=== PATIENT | male | born 1945 | race Caucasian/White ===

== ENCOUNTER 2018-06-01 17:51 | Inpatient (IN) ==
[2018-06-01] MEDS ORDERED: Sodium Chlor 0.9% Inj 500 ML IV.SIG ONE ×2 (18:07→19:40)
--- NOTE | 2018-06-01 18:21 | ED ---
HPI General Chief Complaint: Altered Mental Status Stated Complaint: Evac/Ams Time Seen by Provider: 06/01/18 18:04 Source: patient Mode of arrival: ambulatory Limitations: no limitations History of Present Illness HPI narrative: 72-year-old male patient with history of diabetes, multiple medical issues, presents to the ER today brought in by EMS because a welding manager found him in the bathroom slumped over, apparently was last seen normal this morning around 10 AM, but patient is currently fairly disoriented, not able to answer many questions. EMS found his blood sugars reading high, his blood pressures were low. MD complaint: altered mental status Related Data Home Medications Medication Instructions Recorded Confirmed aspirin 325 mg PO DAILY 06/01/18 06/01/18 atenolol 25 mg PO DAILY 06/01/18 06/01/18 atorvastatin [Lipitor] 20 mg PO HS 06/01/18 06/01/18 butenafine [Mentax] 1 applic TOPICAL DIRECTED 06/01/18 06/01/18 duloxetine [Cymbalta] 30 mg PO DAILY 06/01/18 06/01/18 dutasteride [Avodart] 0.5 mg PO QPM 06/01/18 06/01/18 gabapentin 300 mg PO Q6HR 06/01/18 06/01/18 insulin NPH and regular human 50 unit SUB-Q QPM 06/01/18 06/01/18 [Novolin 70/30 U-100 Insulin] insulin NPH and regular human 75 unit SUB-Q QAM 06/01/18 06/01/18 [Novolin 70/30 U-100 Insulin] lisinopril 5 mg PO DAILY 06/01/18 06/01/18 nitrofurantoin monohyd/m-cryst 100 mg PO 3XW 06/01/18 06/01/18 [Macrobid] pantoprazole [Protonix] 40 mg PO DAILY 06/01/18 06/01/18 tamsulosin [Flomax] 0.4 mg PO BID 06/01/18 06/01/18 valsartan [Diovan] 160 mg PO DAILY 06/01/18 06/01/18 zolpidem [Ambien] 10 mg PO HS 06/01/18 06/01/18 Allergies Allergy/AdvReac Type Severity Reaction Status Date / Time No Allergy Information Allergy Verified 06/01/18 18:09 Available Review of Systems ROS Unobtainable ROS Unobtainable: unobtainable due to mental status PMFSH History History Provided By: Wire Fence Builder / EMT Social History Social History Substance History: No History of Abuse Second Hand Smoke Exposure: No Smoking Status: Former smoker How Often Do You Have a Drink Containing Alcohol: Never Recent Travel in [facility] within the Last 8 Weeks: No Recent Out of Country Travel within the Last 8 Weeks: No Exam Narrative Exam Narrative: GENERAL: Well-developed morbidly obese elderly white male patient currently and moderate distress, lethargic, disoriented. SKIN: Focused skin assessment warm/diaphoretic. HEAD: Atraumatic. Normocephalic. EYES: Pupils equal and round. No scleral icterus. No injection or drainage. ENT: No nasal bleeding or discharge. Mucous membranes pink and moist. NECK: Trachea midline. No JVD. CARDIOVASCULAR: Regular rate and rhythm. No murmur appreciated. RESPIRATORY: No accessory muscle use. Clear to auscultation. Breath sounds equal bilaterally. GASTROINTESTINAL: Abdomen soft, obese, non-tender, nondistended. Hepatic and splenic margins not palpable. MUSCULOSKELETAL: No obvious deformities. No clubbing. No cyanosis. No edema. NEUROLOGICAL: Lethargic, not following commands, able to wiggle fingers and toes when asked, face is symmetrical. Slurred speech. PSYCHIATRIC: Disoriented, unable to assess. Course Initial Documented Vital Signs Pulse Oximetry 97 06/01/18 18:07 Last Documented Vital Signs Temperature 98.4 F 06/04/18 03:00 Pulse Rate 79 06/04/18 03:33 Respiratory Rate 16 06/04/18 03:33 Blood Pressure 183/75 H 06/04/18 03:00 Pulse Oximetry 98 06/04/18 03:00 Critical Care Time Critical Care Time: Yes Total Critical Care Time: 35 Attestation: Aggregate critical care time was 35 minutes. Time to perform other separately billable procedures was not included in the critical care time. My time did not include minutes spent treating any other patients simultaneously or on activities that did not directly contribute to the patient's treatment. The services I provided to this patient were to treat and/or prevent clinically significant deterioration that could result in: Worsening metabolic disorders, DKA, dysrhythmias, sepsis, septic shock, I provided critical care services requiring my management, as noted below: Chart data review, documentation time, medication orders and management, vital sign assessments/reviewing monitor data, ordering and reviewing lab tests, ordering and interpreting/reviewing x-rays and diagnostic studies, care of the patient and discussion of the patient with the admitting physicians. Medical Decision Making MDM Narrative Medical decision making narrative: Lab work came back showing significant hyperglycemia with glucose of over 700, BUN and creatinine elevation, pH fairly low indicative of underlying metabolic acidosis, IV fluids and insulin were given in the ER. Patient's white count 1700 as well, and at this point, patient will need a higher level care, likely disoriented secondary to metabolic issues as well as possible underlying sepsis. Workup was initiated in the ER and case was discussed with Dr. Hinojosa for admission. Differential Diagnosis Differential Diagnosis: Hyperglycemia versus electrolyte abnormalities versus acute intracranial processes versus CVA versus sepsis versus dehydration Lab Data Result diagrams: 06/03/18 06:52 06/03/18 10:54 Lab Results 06/01/18 06/01/18 06/01/18 Range/Units 18:05 18:07 18:09 WBC 17.3 H (4.0-11.0) th/mm3 RBC 4.53 (4.50-5.90) mil/mm3 Hgb 12.5 L (13.0-17.0) gm/dL Hct 40.5 (39.0-51.0) % MCV 89.6 (80.0-100.0) fL MCH 27.6 (27.0-34.0) pg MCHC 30.8 L (32.0-36.0) % RDW 14.7 (11.6-17.2) % Plt Count 304 (150-450) th/mm3 MPV 10.1 (7.0-11.0) fL Neut % (Auto) 83.0 H (16.0-70.0) % Lymph % (Auto) 10.7 (9.0-44.0) % Creek % (Auto) 5.5 (0.0-8.0) % Eos % (Auto) 0.1 (0.0-4.0) % Baso % (Auto) 0.7 (0.0-2.0) % Neut # (Auto) 14.3 H (1.8-7.7) th/mm3 Lymph # (Auto) 1.8 (1.0-4.8) th/mm3 Creek # (Auto) 0.9 (0.0-0.9) th/mm3 Eos # (Auto) 0.0 (0.0-0.4) th/mm3 Baso # (Auto) 0.1 (0.0-0.2) th/mm3 WBC Differential . Differential Comment Auto diff final PT (9.8-11.6) sec INR Ratio APTT (24.3-30.1) sec Puncture Site Right radial Patient Temperature 98.6 O2 Saturation 93 (90-100) % ABG pH 7.25 L* (7.380-7.420) ABG pCO2 35 L (38-42) mmHg ABG pO2 93 (61-120) mmHg ABG HCO3 15 L* (22-26) mmol/L ABG O2 Content 18.3 (12.0-20.0) Vol % ABG Base Excess -10.9 L (-2-2) mmol/L ABG Methemoglobin 1.2 (0-2) % Parker Test Present Hemoglobin 13.9 (12.0-16.0) G/DL Carboxyhemoglobin 1.0 (0-4) % O2 Delivery Device Nasal cannula Liter Flow 4.00 L/M Inspired O2 21 % Critical Value Yes Sodium (136-145) meq/L Potassium (3.5-5.1) meq/L Chloride (98-107) meq/L Carbon Dioxide (21.0-32.0) meq/L Anion Gap (5-15) meq/L BUN (7-18) mg/dL Creatinine (0.60-1.30) mg/dL Estimated GFR (>89) mL/min POC Glucose (68-110) mg/dl Random Glucose (74-106) mg/dL Lactic Acid (0.4-2.0) mmol/L Calcium (8.5-10.1) mg/dL Phosphorus (2.5-4.9) mg/dL Magnesium (1.5-2.5) mg/dL Total Bilirubin (0.2-1.0) mg/dL AST (15-37) U/L ALT (12-78) U/L Alkaline Phosphatase (45-117) U/L Total Creatine Kinase (39-308) U/L CK-MB (CK-2) (0.5-3.6) ng/mL CK-MB (CK-2) % (0.0-4.0) % Troponin I (0.02-0.05) ng/mL Total Protein (6.4-8.2) g/dL Albumin (3.4-5.0) g/dL Beta-Hydroxybutyric Acd (0.00-0.39) mmol/L Urine Color (Yellw/Straw) Urine Clarity (Clear) Urine pH (5.0-8.5) Ur Specific [place] (1.002-1.035) Urine Protein (Neg-Trace) mg/dL Urine Glucose (UA) (Negative) mg/dL Urine Ketones (Negative) mg/dL Urine Occult Blood (Negative) Urine Nitrate (Negative) Urine Bilirubin (Negative) Urine Urobilinogen (Less than 2) mg/dL Ur Leukocyte Esterase (Negative) Urine RBC (0-3) /hpf Urine WBC (0-5) /hpf Urine WBC Clumps (None) Ur Squamous Epith Cells (0-5) /hpf Urine Bacteria (None) /hpf Micro UA Comment Urine Culture Comments Ur Random Sodium meq/L Nasal Screen MRSA (PCR) Random Vancomycin Comment Urine Opiates Screen Neg (Neg) Ur Barbiturates Screen Neg (Neg) Ur Amphetamines Screen Neg (Neg) U Benzodiazepines Scrn Neg (Neg) Urine Cocaine Screen Neg (Neg) U Cannabinoids Screen Neg (Neg) Serum Alcohol (0-5) mg/dL 06/01/18 06/01/18 06/01/18 Range/Units 18:09 18:09 19:24 WBC (4.0-11.0) th/mm3 RBC (4.50-5.90) mil/mm3 Hgb (13.0-17.0) gm/dL Hct (39.0-51.0) % MCV (80.0-100.0) fL MCH (27.0-34.0) pg MCHC (32.0-36.0) % RDW (11.6-17.2) % Plt Count (150-450) th/mm3 MPV (7.0-11.0) fL Neut % (Auto) (16.0-70.0) % Lymph % (Auto) (9.0-44.0) % Creek % (Auto) (0.0-8.0) % Eos % (Auto) (0.0-4.0) % Baso % (Auto) (0.0-2.0) % Neut # (Auto) (1.8-7.7) th/mm3 Lymph # (Auto) (1.0-4.8) th/mm3 Creek # (Auto) (0.0-0.9) th/mm3 Eos # (Auto) (0.0-0.4) th/mm3 Baso # (Auto) (0.0-0.2) th/mm3 WBC Differential Differential Comment PT 11.1 (9.8-11.6) sec INR 1.1 Ratio APTT 23.7 L (24.3-30.1) sec Puncture Site Patient Temperature O2 Saturation (90-100) % ABG pH (7.380-7.420) ABG pCO2 (38-42) mmHg ABG pO2 (61-120) mmHg ABG HCO3 (22-26) mmol/L ABG O2 Content (12.0-20.0) Vol % ABG Base Excess (-2-2) mmol/L ABG Methemoglobin (0-2) % Parker Test Hemoglobin (12.0-16.0) G/DL Carboxyhemoglobin (0-4) % O2 Delivery Device Liter Flow L/M Inspired O2 % Critical Value Sodium 134 L (136-145) meq/L Potassium 4.3 (3.5-5.1) meq/L Chloride 98 (98-107) meq/L Carbon Dioxide 14.7 L (21.0-32.0) meq/L Anion Gap 21 H (5-15) meq/L BUN 55 H (7-18) mg/dL Creatinine 2.96 H (0.60-1.30) mg/dL Estimated GFR 21 L (>89) mL/min POC Glucose Greater than 600 H* (68-110) mg/dl Random Glucose 709 H* (74-106) mg/dL Lactic Acid (0.4-2.0) mmol/L Calcium 8.9 (8.5-10.1) mg/dL Phosphorus (2.5-4.9) mg/dL Magnesium (1.5-2.5) mg/dL Total Bilirubin 0.4 (0.2-1.0) mg/dL AST 28 (15-37) U/L ALT 15 (12-78) U/L Alkaline Phosphatase 91 (45-117) U/L Total Creatine Kinase (39-308) U/L CK-MB (CK-2) (0.5-3.6) ng/mL CK-MB (CK-2) % (0.0-4.0) % Troponin I 0.08 H (0.02-0.05) ng/mL Total Protein 8.3 H (6.4-8.2) g/dL Albumin 2.5 L (3.4-5.0) g/dL Beta-Hydroxybutyric Acd 0.24 (0.00-0.39) mmol/L Urine Color (Yellw/Straw) Urine Clarity (Clear) Urine pH (5.0-8.5) Ur Specific [place] (1.002-1.035) Urine Protein (Neg-Trace) mg/dL Urine Glucose (UA) (Negative) mg/dL Urine Ketones (Negative) mg/dL Urine Occult Blood (Negative) Urine Nitrate (Negative) Urine Bilirubin (Negative) Urine Urobilinogen (Less than 2) mg/dL Ur Leukocyte Esterase (Negative) Urine RBC (0-3) /hpf Urine WBC (0-5) /hpf Urine WBC Clumps (None) Ur Squamous Epith Cells (0-5) /hpf Urine Bacteria (None) /hpf Micro UA Comment Urine Culture Comments Ur Random Sodium meq/L Nasal Screen MRSA (PCR) Random Vancomycin Comment Urine Opiates Screen (Neg) Ur Barbiturates Screen (Neg) Ur Amphetamines Screen (Neg) U Benzodiazepines Scrn (Neg) Urine Cocaine Screen (Neg) U Cannabinoids Screen (Neg) Serum Alcohol Less than 3 (0-5) mg/dL 06/01/18 06/01/18 06/02/18 Range/Units 20:00 20:17 00:20 WBC (4.0-11.0) th/mm3 RBC (4.50-5.90) mil/mm3 Hgb (13.0-17.0) gm/dL Hct (39.0-51.0) % MCV (80.0-100.0) fL MCH (27.0-34.0) pg MCHC (32.0-36.0) % RDW (11.6-17.2) % Plt Count (150-450) th/mm3 MPV (7.0-11.0) fL Neut % (Auto) (16.0-70.0) % Lymph % (Auto) (9.0-44.0) % Creek % (Auto) (0.0-8.0) % Eos % (Auto) (0.0-4.0) % Baso % (Auto) (0.0-2.0) % Neut # (Auto) (1.8-7.7) th/mm3 Lymph # (Auto) (1.0-4.8) th/mm3 Creek # (Auto) (0.0-0.9) th/mm3 Eos # (Auto) (0.0-0.4) th/mm3 Baso # (Auto) (0.0-0.2) th/mm3 WBC Differential Differential Comment PT (9.8-11.6) sec INR Ratio APTT (24.3-30.1) sec Puncture Site Patient Temperature O2 Saturation (90-100) % ABG pH (7.380-7.420) ABG pCO2 (38-42) mmHg ABG pO2 (61-120) mmHg ABG HCO3 (22-26) mmol/L ABG O2 Content (12.0-20.0) Vol % ABG Base Excess (-2-2) mmol/L ABG Methemoglobin (0-2) % Parker Test Hemoglobin (12.0-16.0) G/DL Carboxyhemoglobin (0-4) % O2 Delivery Device Liter Flow L/M Inspired O2 % Critical Value Sodium (136-145) meq/L Potassium (3.5-5.1) meq/L Chloride (98-107) meq/L Carbon Dioxide (21.0-32.0) meq/L Anion Gap (5-15) meq/L BUN (7-18) mg/dL Creatinine (0.60-1.30) mg/dL Estimated GFR (>89) mL/min POC Glucose (68-110) mg/dl Random Glucose (74-106) mg/dL Lactic Acid 5.2 H* (0.4-2.0) mmol/L Calcium (8.5-10.1) mg/dL Phosphorus (2.5-4.9) mg/dL Magnesium (1.5-2.5) mg/dL Total Bilirubin (0.2-1.0) mg/dL AST (15-37) U/L ALT (12-78) U/L Alkaline Phosphatase (45-117) U/L Total Creatine Kinase (39-308) U/L CK-MB (CK-2) (0.5-3.6) ng/mL CK-MB (CK-2) % (0.0-4.0) % Troponin I 27.60 H* (0.02-0.05) ng/mL Total Protein (6.4-8.2) g/dL Albumin (3.4-5.0) g/dL Beta-Hydroxybutyric Acd (0.00-0.39) mmol/L Urine Color Yellow (Yellw/Straw) Urine Clarity Turbid H (Clear) Urine pH 5.0 (5.0-8.5) Ur Specific [place] 1.014 (1.002-1.035) Urine Protein 100 H (Neg-Trace) mg/dL Urine Glucose (UA) 500 or greater (Negative) mg/dL Urine Ketones Negative (Negative) mg/dL Urine Occult Blood Large H (Negative) Urine Nitrate Negative (Negative) Urine Bilirubin Negative (Negative) Urine Urobilinogen Less than 2 (Less than 2) mg/dL Ur Leukocyte Esterase Large H (Negative) Urine RBC 171 H (0-3) /hpf Urine WBC (0-5) /hpf Urine WBC Clumps Many H (None) Ur Squamous Epith Cells 2 (0-5) /hpf Urine Bacteria Many H (None) /hpf Micro UA Comment Culture indicated Urine Culture Comments Culture indicated Ur Random Sodium meq/L Nasal Screen MRSA (PCR) Random Vancomycin Comment Urine Opiates Screen (Neg) Ur Barbiturates Screen (Neg) Ur Amphetamines Screen (Neg) U Benzodiazepines Scrn (Neg) Urine Cocaine Screen (Neg) U Cannabinoids Screen (Neg) Serum Alcohol (0-5) mg/dL 06/02/18 06/02/18 06/02/18 Range/Units 04:20 04:20 04:20 WBC 18.6 H (4.0-11.0) th/mm3 RBC 4.99 (4.50-5.90) mil/mm3 Hgb 13.8 (13.0-17.0) gm/dL Hct 43.3 (39.0-51.0) % MCV 86.8 (80.0-100.0) fL MCH 27.6 (27.0-34.0) pg MCHC 31.8 L (32.0-36.0) % RDW 14.5 (11.6-17.2) % Plt Count 235 (150-450) th/mm3 MPV 9.2 (7.0-11.0) fL Neut % (Auto) 87.5 H (16.0-70.0) % Lymph % (Auto) 8.5 L (9.0-44.0) % Creek % (Auto) 3.7 (0.0-8.0) % Eos % (Auto) 0.0 (0.0-4.0) % Baso % (Auto) 0.3 (0.0-2.0) % Neut # (Auto) 16.3 H (1.8-7.7) th/mm3 Lymph # (Auto) 1.6 (1.0-4.8) th/mm3 [place] # (Auto) 0.7 (0.0-0.9) th/mm3 Eos # (Auto) 0.0 (0.0-0.4) th/mm3 Baso # (Auto) 0.1 (0.0-0.2) th/mm3 WBC Differential . Differential Comment Auto diff final PT 11.1 (9.8-11.6) sec INR 1.1 Ratio APTT 24.7 (24.3-30.1) sec Puncture Site Patient Temperature O2 Saturation (90-100) % ABG pH (7.380-7.420) ABG pCO2 (38-42) mmHg ABG pO2 (61-120) mmHg ABG HCO3 (22-26) mmol/L ABG O2 Content (12.0-20.0) Vol % ABG Base Excess (-2-2) mmol/L ABG Methemoglobin (0-2) % Parker Test Hemoglobin (12.0-16.0) G/DL Carboxyhemoglobin (0-4) % O2 Delivery Device Liter Flow L/M Inspired O2 % Critical Value Sodium 139 (136-145) meq/L Potassium 3.9 (3.5-5.1) meq/L Chloride 106 D (98-107) meq/L Carbon Dioxide 18.6 L (21.0-32.0) meq/L Anion Gap 14 (5-15) meq/L BUN 57 H (7-18) mg/dL Creatinine 2.80 H (0.60-1.30) mg/dL Estimated GFR 22 L (>89) mL/min POC Glucose (68-110) mg/dl Random Glucose 429 H D (74-106) mg/dL Lactic Acid (0.4-2.0) mmol/L Calcium 8.5 (8.5-10.1) mg/dL Phosphorus 3.7 (2.5-4.9) mg/dL Magnesium 1.9 (1.5-2.5) mg/dL Total Bilirubin 0.2 (0.2-1.0) mg/dL AST 289 H (15-37) U/L ALT 52 (12-78) U/L Alkaline Phosphatase 94 (45-117) U/L Total Creatine Kinase (39-308) U/L CK-MB (CK-2) (0.5-3.6) ng/mL CK-MB (CK-2) % (0.0-4.0) % Troponin I Greater than 40.00 H* (0.02-0.05) ng/mL Total Protein 8.7 H (6.4-8.2) g/dL Albumin 2.6 L (3.4-5.0) g/dL Beta-Hydroxybutyric Acd (0.00-0.39) mmol/L Urine Color (Yellw/Straw) Urine Clarity (Clear) Urine pH (5.0-8.5) Ur Specific [place] (1.002-1.035) Urine Protein (Neg-Trace) mg/dL Urine Glucose (UA) (Negative) mg/dL Urine Ketones (Negative) mg/dL Urine Occult Blood (Negative) Urine Nitrate (Negative) Urine Bilirubin (Negative) Urine Urobilinogen (Less than 2) mg/dL Ur Leukocyte Esterase (Negative) Urine RBC (0-3) /hpf Urine WBC (0-5) /hpf Urine WBC Clumps (None) Ur Squamous Epith Cells (0-5) /hpf Urine Bacteria (None) /hpf Micro UA Comment Urine Culture Comments Ur Random Sodium meq/L Nasal Screen MRSA (PCR) Random Vancomycin Comment Urine Opiates Screen (Neg) Ur Barbiturates Screen (Neg) Ur Amphetamines Screen (Neg) U Benzodiazepines Scrn (Neg) Urine Cocaine Screen (Neg) U Cannabinoids Screen (Neg) Serum Alcohol (0-5) mg/dL 06/02/18 06/02/18 06/02/18 Range/Units 04:24 05:50 05:50 WBC (4.0-11.0) th/mm3 RBC (4.50-5.90) mil/mm3 Hgb (13.0-17.0) gm/dL Hct (39.0-51.0) % MCV (80.0-100.0) fL MCH (27.0-34.0) pg MCHC (32.0-36.0) % RDW (11.6-17.2) % Plt Count (150-450) th/mm3 MPV (7.0-11.0) fL Neut % (Auto) (16.0-70.0) % Lymph % (Auto) (9.0-44.0) % [place] % (Auto) (0.0-8.0) % Eos % (Auto) (0.0-4.0) % Baso % (Auto) (0.0-2.0) % Neut # (Auto) (1.8-7.7) th/mm3 Lymph # (Auto) (1.0-4.8) th/mm3 [place] # (Auto) (0.0-0.9) th/mm3 Eos # (Auto) (0.0-0.4) th/mm3 Baso # (Auto) (0.0-0.2) th/mm3 WBC Differential Differential Comment PT (9.8-11.6) sec INR Ratio APTT (24.3-30.1) sec Puncture Site Patient Temperature O2 Saturation (90-100) % ABG pH (7.380-7.420) ABG pCO2 (38-42) mmHg ABG pO2 (61-120) mmHg ABG HCO3 (22-26) mmol/L ABG O2 Content (12.0-20.0) Vol % ABG Base Excess (-2-2) mmol/L ABG Methemoglobin (0-2) % Parker Test Hemoglobin (12.0-16.0) G/DL Carboxyhemoglobin (0-4) % O2 Delivery Device Liter Flow L/M Inspired O2 % Critical Value Sodium (136-145) meq/L Potassium (3.5-5.1) meq/L Chloride (98-107) meq/L Carbon Dioxide (21.0-32.0) meq/L Anion Gap (5-15) meq/L BUN (7-18) mg/dL Creatinine (0.60-1.30) mg/dL Estimated GFR (>89) mL/min POC Glucose 490 H* (68-110) mg/dl Random Glucose (74-106) mg/dL Lactic Acid (0.4-2.0) mmol/L Calcium (8.5-10.1) mg/dL Phosphorus (2.5-4.9) mg/dL Magnesium (1.5-2.5) mg/dL Total Bilirubin (0.2-1.0) mg/dL AST (15-37) U/L ALT (12-78) U/L Alkaline Phosphatase (45-117) U/L Total Creatine Kinase (39-308) U/L CK-MB (CK-2) (0.5-3.6) ng/mL CK-MB (CK-2) % (0.0-4.0) % Troponin I (0.02-0.05) ng/mL Total Protein (6.4-8.2) g/dL Albumin (3.4-5.0) g/dL Beta-Hydroxybutyric Acd (0.00-0.39) mmol/L Urine Color (Yellw/Straw) Urine Clarity (Clear) Urine pH (5.0-8.5) Ur Specific [place] (1.002-1.035) Urine Protein (Neg-Trace) mg/dL Urine Glucose (UA) (Negative) mg/dL Urine Ketones (Negative) mg/dL Urine Occult Blood (Negative) Urine Nitrate (Negative) Urine Bilirubin (Negative) Urine Urobilinogen (Less than 2) mg/dL Ur Leukocyte Esterase (Negative) Urine RBC (0-3) /hpf Urine WBC (0-5) /hpf Urine WBC Clumps (None) Ur Squamous Epith Cells (0-5) /hpf Urine Bacteria (None) /hpf Micro UA Comment Urine Culture Comments Ur Random Sodium meq/L Nasal Screen MRSA (PCR) Cancelled Not detected Random Vancomycin Comment Urine Opiates Screen (Neg) Ur Barbiturates Screen (Neg) Ur Amphetamines Screen (Neg) U Benzodiazepines Scrn (Neg) Urine Cocaine Screen (Neg) U Cannabinoids Screen (Neg) Serum Alcohol (0-5) mg/dL 06/02/18 06/02/18 06/02/18 Range/Units 06:04 07:22 08:16 WBC (4.0-11.0) th/mm3 RBC (4.50-5.90) mil/mm3 Hgb (13.0-17.0) gm/dL Hct (39.0-51.0) % MCV (80.0-100.0) fL MCH (27.0-34.0) pg MCHC (32.0-36.0) % RDW (11.6-17.2) % Plt Count (150-450) th/mm3 MPV (7.0-11.0) fL Neut % (Auto) (16.0-70.0) % Lymph % (Auto) (9.0-44.0) % [place] % (Auto) (0.0-8.0) % Eos % (Auto) (0.0-4.0) % Baso % (Auto) (0.0-2.0) % Neut # (Auto) (1.8-7.7) th/mm3 Lymph # (Auto) (1.0-4.8) th/mm3 [place] # (Auto) (0.0-0.9) th/mm3 Eos # (Auto) (0.0-0.4) th/mm3 Baso # (Auto) (0.0-0.2) th/mm3 WBC Differential Differential Comment PT (9.8-11.6) sec INR Ratio APTT (24.3-30.1) sec Puncture Site Patient Temperature O2 Saturation (90-100) % ABG pH (7.380-7.420) ABG pCO2 (38-42) mmHg ABG pO2 (61-120) mmHg ABG HCO3 (22-26) mmol/L ABG O2 Content (12.0-20.0) Vol % ABG Base Excess (-2-2) mmol/L ABG Methemoglobin (0-2) % Parker Test Hemoglobin (12.0-16.0) G/DL Carboxyhemoglobin (0-4) % O2 Delivery Device Liter Flow L/M Inspired O2 % Critical Value Sodium (136-145) meq/L Potassium (3.5-5.1) meq/L Chloride (98-107) meq/L Carbon Dioxide (21.0-32.0) meq/L Anion Gap (5-15) meq/L BUN (7-18) mg/dL Creatinine (0.60-1.30) mg/dL Estimated GFR (>89) mL/min POC Glucose 381 H 237 H 194 H (68-110) mg/dl Random Glucose (74-106) mg/dL Lactic Acid (0.4-2.0) mmol/L Calcium (8.5-10.1) mg/dL Phosphorus (2.5-4.9) mg/dL Magnesium (1.5-2.5) mg/dL Total Bilirubin (0.2-1.0) mg/dL AST (15-37) U/L ALT (12-78) U/L Alkaline Phosphatase (45-117) U/L Total Creatine Kinase (39-308) U/L CK-MB (CK-2) (0.5-3.6) ng/mL CK-MB (CK-2) % (0.0-4.0) % Troponin I (0.02-0.05) ng/mL Total Protein (6.4-8.2) g/dL Albumin (3.4-5.0) g/dL Beta-Hydroxybutyric Acd (0.00-0.39) mmol/L Urine Color (Yellw/Straw) Urine Clarity (Clear) Urine pH (5.0-8.5) Ur Specific [place] (1.002-1.035) Urine Protein (Neg-Trace) mg/dL Urine Glucose (UA) (Negative) mg/dL Urine Ketones (Negative) mg/dL Urine Occult Blood (Negative) Urine Nitrate (Negative) Urine Bilirubin (Negative) Urine Urobilinogen (Less than 2) mg/dL Ur Leukocyte Esterase (Negative) Urine RBC (0-3) /hpf Urine WBC (0-5) /hpf Urine WBC Clumps (None) Ur Squamous Epith Cells (0-5) /hpf Urine Bacteria (None) /hpf Micro UA Comment Urine Culture Comments Ur Random Sodium meq/L Nasal Screen MRSA (PCR) Random Vancomycin Comment Urine Opiates Screen (Neg) Ur Barbiturates Screen (Neg) Ur Amphetamines Screen (Neg) U Benzodiazepines Scrn (Neg) Urine Cocaine Screen (Neg) U Cannabinoids Screen (Neg) Serum Alcohol (0-5) mg/dL 06/02/18 06/02/18 06/02/18 Range/Units 08:19 08:19 08:56 WBC 20.0 H (4.0-11.0) th/mm3 RBC 4.88 (4.50-5.90) mil/mm3 Hgb 13.6 (13.0-17.0) gm/dL Hct 40.8 (39.0-51.0) % MCV 83.6 (80.0-100.0) fL MCH 27.9 (27.0-34.0) pg MCHC 33.4 (32.0-36.0) % RDW 14.7 (11.6-17.2) % Plt Count 257 (150-450) th/mm3 MPV 9.2 (7.0-11.0) fL Neut % (Auto) (16.0-70.0) % Lymph % (Auto) (9.0-44.0) % Creek % (Auto) (0.0-8.0) % Eos % (Auto) (0.0-4.0) % Baso % (Auto) (0.0-2.0) % Neut # (Auto) (1.8-7.7) th/mm3 Lymph # (Auto) (1.0-4.8) th/mm3 Creek # (Auto) (0.0-0.9) th/mm3 Eos # (Auto) (0.0-0.4) th/mm3 Baso # (Auto) (0.0-0.2) th/mm3 WBC Differential Differential Comment PT (9.8-11.6) sec INR Ratio APTT 26.3 (24.3-30.1) sec Puncture Site Patient Temperature O2 Saturation (90-100) % ABG pH (7.380-7.420) ABG pCO2 (38-42) mmHg ABG pO2 (61-120) mmHg ABG HCO3 (22-26) mmol/L ABG O2 Content (12.0-20.0) Vol % ABG Base Excess (-2-2) mmol/L ABG Methemoglobin (0-2) % Parker Test Hemoglobin (12.0-16.0) G/DL Carboxyhemoglobin (0-4) % O2 Delivery Device Liter Flow L/M Inspired O2 % Critical Value Sodium (136-145) meq/L Potassium (3.5-5.1) meq/L Chloride (98-107) meq/L Carbon Dioxide (21.0-32.0) meq/L Anion Gap (5-15) meq/L BUN (7-18) mg/dL Creatinine (0.60-1.30) mg/dL Estimated GFR (>89) mL/min POC Glucose 196 H (68-110) mg/dl Random Glucose (74-106) mg/dL Lactic Acid (0.4-2.0) mmol/L Calcium (8.5-10.1) mg/dL Phosphorus (2.5-4.9) mg/dL Magnesium (1.5-2.5) mg/dL Total Bilirubin (0.2-1.0) mg/dL AST (15-37) U/L ALT (12-78) U/L Alkaline Phosphatase (45-117) U/L Total Creatine Kinase (39-308) U/L CK-MB (CK-2) (0.5-3.6) ng/mL CK-MB (CK-2) % (0.0-4.0) % Troponin I (0.02-0.05) ng/mL Total Protein (6.4-8.2) g/dL Albumin (3.4-5.0) g/dL Beta-Hydroxybutyric Acd (0.00-0.39) mmol/L Urine Color (Yellw/Straw) Urine Clarity (Clear) Urine pH (5.0-8.5) Ur Specific [place] (1.002-1.035) Urine Protein (Neg-Trace) mg/dL Urine Glucose (UA) (Negative) mg/dL Urine Ketones (Negative) mg/dL Urine Occult Blood (Negative) Urine Nitrate (Negative) Urine Bilirubin (Negative) Urine Urobilinogen (Less than 2) mg/dL Ur Leukocyte Esterase (Negative) Urine RBC (0-3) /hpf Urine WBC (0-5) /hpf Urine WBC Clumps (None) Ur Squamous Epith Cells (0-5) /hpf Urine Bacteria (None) /hpf Micro UA Comment Urine Culture Comments Ur Random Sodium meq/L Nasal Screen MRSA (PCR) Random Vancomycin Comment Urine Opiates Screen (Neg) Ur Barbiturates Screen (Neg) Ur Amphetamines Screen (Neg) U Benzodiazepines Scrn (Neg) Urine Cocaine Screen (Neg) U Cannabinoids Screen (Neg) Serum Alcohol (0-5) mg/dL 06/02/18 06/02/18 06/02/18 Range/Units 10:04 11:04 12:09 WBC (4.0-11.0) th/mm3 RBC (4.50-5.90) mil/mm3 Hgb (13.0-17.0) gm/dL Hct (39.0-51.0) % MCV (80.0-100.0) fL MCH (27.0-34.0) pg MCHC (32.0-36.0) % RDW (11.6-17.2) % Plt Count (150-450) th/mm3 MPV (7.0-11.0) fL Neut % (Auto) (16.0-70.0) % Lymph % (Auto) (9.0-44.0) % Creek % (Auto) (0.0-8.0) % Eos % (Auto) (0.0-4.0) % Baso % (Auto) (0.0-2.0) % Neut # (Auto) (1.8-7.7) th/mm3 Lymph # (Auto) (1.0-4.8) th/mm3 [place] # (Auto) (0.0-0.9) th/mm3 Eos # (Auto) (0.0-0.4) th/mm3 Baso # (Auto) (0.0-0.2) th/mm3 WBC Differential Differential Comment PT (9.8-11.6) sec INR Ratio APTT (24.3-30.1) sec Puncture Site Patient Temperature O2 Saturation (90-100) % ABG pH (7.380-7.420) ABG pCO2 (38-42) mmHg ABG pO2 (61-120) mmHg ABG HCO3 (22-26) mmol/L ABG O2 Content (12.0-20.0) Vol % ABG Base Excess (-2-2) mmol/L ABG Methemoglobin (0-2) % Parker Test Hemoglobin (12.0-16.0) G/DL Carboxyhemoglobin (0-4) % O2 Delivery Device Liter Flow L/M Inspired O2 % Critical Value Sodium (136-145) meq/L Potassium (3.5-5.1) meq/L Chloride (98-107) meq/L Carbon Dioxide (21.0-32.0) meq/L Anion Gap (5-15) meq/L BUN (7-18) mg/dL Creatinine (0.60-1.30) mg/dL Estimated GFR (>89) mL/min POC Glucose 191 H 202 H 178 H (68-110) mg/dl Random Glucose (74-106) mg/dL Lactic Acid (0.4-2.0) mmol/L Calcium (8.5-10.1) mg/dL Phosphorus (2.5-4.9) mg/dL Magnesium (1.5-2.5) mg/dL Total Bilirubin (0.2-1.0) mg/dL AST (15-37) U/L ALT (12-78) U/L Alkaline Phosphatase (45-117) U/L Total Creatine Kinase (39-308) U/L CK-MB (CK-2) (0.5-3.6) ng/mL CK-MB (CK-2) % (0.0-4.0) % Troponin I (0.02-0.05) ng/mL Total Protein (6.4-8.2) g/dL Albumin (3.4-5.0) g/dL Beta-Hydroxybutyric Acd (0.00-0.39) mmol/L Urine Color (Yellw/Straw) Urine Clarity (Clear) Urine pH (5.0-8.5) Ur Specific [place] (1.002-1.035) Urine Protein (Neg-Trace) mg/dL Urine Glucose (UA) (Negative) mg/dL Urine Ketones (Negative) mg/dL Urine Occult Blood (Negative) Urine Nitrate (Negative) Urine Bilirubin (Negative) Urine Urobilinogen (Less than 2) mg/dL Ur Leukocyte Esterase (Negative) Urine RBC (0-3) /hpf Urine WBC (0-5) /hpf Urine WBC Clumps (None) Ur Squamous Epith Cells (0-5) /hpf Urine Bacteria (None) /hpf Micro UA Comment Urine Culture Comments Ur Random Sodium meq/L Nasal Screen MRSA (PCR) Random Vancomycin Comment Urine Opiates Screen (Neg) Ur Barbiturates Screen (Neg) Ur Amphetamines Screen (Neg) U Benzodiazepines Scrn (Neg) Urine Cocaine Screen (Neg) U Cannabinoids Screen (Neg) Serum Alcohol (0-5) mg/dL 06/02/18 06/02/18 06/02/18 Range/Units 12:20 12:47 12:47 WBC 17.0 H (4.0-11.0) th/mm3 RBC 4.54 (4.50-5.90) mil/mm3 Hgb 12.6 L (13.0-17.0) gm/dL Hct 38.9 L (39.0-51.0) % MCV 85.6 (80.0-100.0) fL MCH 27.8 (27.0-34.0) pg MCHC 32.4 (32.0-36.0) % RDW 14.5 (11.6-17.2) % Plt Count 222 (150-450) th/mm3 MPV 9.1 (7.0-11.0) fL Neut % (Auto) 85.0 H (16.0-70.0) % Lymph % (Auto) 10.4 (9.0-44.0) % Creek % (Auto) 4.3 (0.0-8.0) % Eos % (Auto) 0.1 (0.0-4.0) % Baso % (Auto) 0.2 (0.0-2.0) % Neut # (Auto) 14.4 H (1.8-7.7) th/mm3 Lymph # (Auto) 1.8 (1.0-4.8) th/mm3 [place] # (Auto) 0.7 (0.0-0.9) th/mm3 Eos # (Auto) 0.0 (0.0-0.4) th/mm3 Baso # (Auto) 0.0 (0.0-0.2) th/mm3 WBC Differential . Differential Comment Auto diff final PT (9.8-11.6) sec INR Ratio APTT (24.3-30.1) sec Puncture Site Right radial Patient Temperature 98.6 O2 Saturation 93 (90-100) % ABG pH 7.33 L (7.380-7.420) ABG pCO2 34 L (38-42) mmHg ABG pO2 85 (61-120) mmHg ABG HCO3 17 L (22-26) mmol/L ABG O2 Content 18.3 (12.0-20.0) Vol % ABG Base Excess -7.4 L (-2-2) mmol/L ABG Methemoglobin 2.1 H (0-2) % Parker Test Present Hemoglobin 14.0 (12.0-16.0) G/DL Carboxyhemoglobin 0.8 (0-4) % O2 Delivery Device Room air Liter Flow L/M Inspired O2 21 % Critical Value No Sodium 143 (136-145) meq/L Potassium 3.7 (3.5-5.1) meq/L Chloride 112 H (98-107) meq/L Carbon Dioxide 19.9 L (21.0-32.0) meq/L Anion Gap 11 (5-15) meq/L BUN 55 H (7-18) mg/dL Creatinine 2.35 H (0.60-1.30) mg/dL Estimated GFR 27 L (>89) mL/min POC Glucose (68-110) mg/dl Random Glucose 170 H D (74-106) mg/dL Lactic Acid (0.4-2.0) mmol/L Calcium 8.1 L (8.5-10.1) mg/dL Phosphorus (2.5-4.9) mg/dL Magnesium (1.5-2.5) mg/dL Total Bilirubin 0.2 (0.2-1.0) mg/dL AST 322 H (15-37) U/L ALT 61 (12-78) U/L Alkaline Phosphatase 85 (45-117) U/L Total Creatine Kinase 37589 H (39-308) U/L CK-MB (CK-2) 138.4 H (0.5-3.6) ng/mL CK-MB (CK-2) % 1.1 (0.0-4.0) % Troponin I (0.02-0.05) ng/mL Total Protein 8.1 D (6.4-8.2) g/dL Albumin 2.5 L (3.4-5.0) g/dL Beta-Hydroxybutyric Acd (0.00-0.39) mmol/L Urine Color (Yellw/Straw) Urine Clarity (Clear) Urine pH (5.0-8.5) Ur Specific [place] (1.002-1.035) Urine Protein (Neg-Trace) mg/dL Urine Glucose (UA) (Negative) mg/dL Urine Ketones (Negative) mg/dL Urine Occult Blood (Negative) Urine Nitrate (Negative) Urine Bilirubin (Negative) Urine Urobilinogen (Less than 2) mg/dL Ur Leukocyte Esterase (Negative) Urine RBC (0-3) /hpf Urine WBC (0-5) /hpf Urine WBC Clumps (None) Ur Squamous Epith Cells (0-5) /hpf Urine Bacteria (None) /hpf Micro UA Comment Urine Culture Comments Ur Random Sodium meq/L Nasal Screen MRSA (PCR) Random Vancomycin Comment Urine Opiates Screen (Neg) Ur Barbiturates Screen (Neg) Ur Amphetamines Screen (Neg) U Benzodiazepines Scrn (Neg) Urine Cocaine Screen (Neg) U Cannabinoids Screen (Neg) Serum Alcohol (0-5) mg/dL 06/02/18 06/02/18 06/02/18 Range/Units 12:47 12:47 13:07 WBC (4.0-11.0) th/mm3 RBC (4.50-5.90) mil/mm3 Hgb (13.0-17.0) gm/dL Hct (39.0-51.0) % MCV (80.0-100.0) fL MCH (27.0-34.0) pg MCHC (32.0-36.0) % RDW (11.6-17.2) % Plt Count (150-450) th/mm3 MPV (7.0-11.0) fL Neut % (Auto) (16.0-70.0) % Lymph % (Auto) (9.0-44.0) % [place] % (Auto) (0.0-8.0) % Eos % (Auto) (0.0-4.0) % Baso % (Auto) (0.0-2.0) % Neut # (Auto) (1.8-7.7) th/mm3 Lymph # (Auto) (1.0-4.8) th/mm3 [place] # (Auto) (0.0-0.9) th/mm3 Eos # (Auto) (0.0-0.4) th/mm3 Baso # (Auto) (0.0-0.2) th/mm3 WBC Differential Differential Comment PT (9.8-11.6) sec INR Ratio APTT (24.3-30.1) sec Puncture Site Patient Temperature O2 Saturation (90-100) % ABG pH (7.380-7.420) ABG pCO2 (38-42) mmHg ABG pO2 (61-120) mmHg ABG HCO3 (22-26) mmol/L ABG O2 Content (12.0-20.0) Vol % ABG Base Excess (-2-2) mmol/L ABG Methemoglobin (0-2) % Parker Test Hemoglobin (12.0-16.0) G/DL Carboxyhemoglobin (0-4) % O2 Delivery Device Liter Flow L/M Inspired O2 % Critical Value Sodium (136-145) meq/L Potassium (3.5-5.1) meq/L Chloride (98-107) meq/L Carbon Dioxide (21.0-32.0) meq/L Anion Gap (5-15) meq/L BUN (7-18) mg/dL Creatinine (0.60-1.30) mg/dL Estimated GFR (>89) mL/min POC Glucose 193 H (68-110) mg/dl Random Glucose (74-106) mg/dL Lactic Acid 1.7 (0.4-2.0) mmol/L Calcium (8.5-10.1) mg/dL Phosphorus (2.5-4.9) mg/dL Magnesium (1.5-2.5) mg/dL Total Bilirubin (0.2-1.0) mg/dL AST (15-37) U/L ALT (12-78) U/L Alkaline Phosphatase (45-117) U/L Total Creatine Kinase (39-308) U/L CK-MB (CK-2) (0.5-3.6) ng/mL CK-MB (CK-2) % (0.0-4.0) % Troponin I Greater than 40.00 H* (0.02-0.05) ng/mL Total Protein (6.4-8.2) g/dL Albumin (3.4-5.0) g/dL Beta-Hydroxybutyric Acd (0.00-0.39) mmol/L Urine Color (Yellw/Straw) Urine Clarity (Clear) Urine pH (5.0-8.5) Ur Specific [place] (1.002-1.035) Urine Protein (Neg-Trace) mg/dL Urine Glucose (UA) (Negative) mg/dL Urine Ketones (Negative) mg/dL Urine Occult Blood (Negative) Urine Nitrate (Negative) Urine Bilirubin (Negative) Urine Urobilinogen (Less than 2) mg/dL Ur Leukocyte Esterase (Negative) Urine RBC (0-3) /hpf Urine WBC (0-5) /hpf Urine WBC Clumps (None) Ur Squamous Epith Cells (0-5) /hpf Urine Bacteria (None) /hpf Micro UA Comment Urine Culture Comments Ur Random Sodium meq/L Nasal Screen MRSA (PCR) Random Vancomycin Comment Urine Opiates Screen (Neg) Ur Barbiturates Screen (Neg) Ur Amphetamines Screen (Neg) U Benzodiazepines Scrn (Neg) Urine Cocaine Screen (Neg) U Cannabinoids Screen (Neg) Serum Alcohol (0-5) mg/dL 06/02/18 06/02/18 06/02/18 Range/Units 14:11 14:56 16:00 WBC (4.0-11.0) th/mm3 RBC (4.50-5.90) mil/mm3 Hgb (13.0-17.0) gm/dL Hct (39.0-51.0) % MCV (80.0-100.0) fL MCH (27.0-34.0) pg MCHC (32.0-36.0) % RDW (11.6-17.2) % Plt Count (150-450) th/mm3 MPV (7.0-11.0) fL Neut % (Auto) (16.0-70.0) % Lymph % (Auto) (9.0-44.0) % [place] % (Auto) (0.0-8.0) % Eos % (Auto) (0.0-4.0) % Baso % (Auto) (0.0-2.0) % Neut # (Auto) (1.8-7.7) th/mm3 Lymph # (Auto) (1.0-4.8) th/mm3 [place] # (Auto) (0.0-0.9) th/mm3 Eos # (Auto) (0.0-0.4) th/mm3 Baso # (Auto) (0.0-0.2) th/mm3 WBC Differential Differential Comment PT (9.8-11.6) sec INR Ratio APTT 29.3 (24.3-30.1) sec Puncture Site Patient Temperature O2 Saturation (90-100) % ABG pH (7.380-7.420) ABG pCO2 (38-42) mmHg ABG pO2 (61-120) mmHg ABG HCO3 (22-26) mmol/L ABG O2 Content (12.0-20.0) Vol % ABG Base Excess (-2-2) mmol/L ABG Methemoglobin (0-2) % Parker Test Hemoglobin (12.0-16.0) G/DL Carboxyhemoglobin (0-4) % O2 Delivery Device Liter Flow L/M Inspired O2 % Critical Value Sodium (136-145) meq/L Potassium (3.5-5.1) meq/L Chloride (98-107) meq/L Carbon Dioxide (21.0-32.0) meq/L Anion Gap (5-15) meq/L BUN (7-18) mg/dL Creatinine (0.60-1.30) mg/dL Estimated GFR (>89) mL/min POC Glucose 181 H 163 H (68-110) mg/dl Random Glucose (74-106) mg/dL Lactic Acid (0.4-2.0) mmol/L Calcium (8.5-10.1) mg/dL Phosphorus (2.5-4.9) mg/dL Magnesium (1.5-2.5) mg/dL Total Bilirubin (0.2-1.0) mg/dL AST (15-37) U/L ALT (12-78) U/L Alkaline Phosphatase (45-117) U/L Total Creatine Kinase (39-308) U/L CK-MB (CK-2) (0.5-3.6) ng/mL CK-MB (CK-2) % (0.0-4.0) % Troponin I (0.02-0.05) ng/mL Total Protein (6.4-8.2) g/dL Albumin (3.4-5.0) g/dL Beta-Hydroxybutyric Acd (0.00-0.39) mmol/L Urine Color (Yellw/Straw) Urine Clarity (Clear) Urine pH (5.0-8.5) Ur Specific [place] (1.002-1.035) Urine Protein (Neg-Trace) mg/dL Urine Glucose (UA) (Negative) mg/dL Urine Ketones (Negative) mg/dL Urine Occult Blood (Negative) Urine Nitrate (Negative) Urine Bilirubin (Negative) Urine Urobilinogen (Less than 2) mg/dL Ur Leukocyte Esterase (Negative) Urine RBC (0-3) /hpf Urine WBC (0-5) /hpf Urine WBC Clumps (None) Ur Squamous Epith Cells (0-5) /hpf Urine Bacteria (None) /hpf Micro UA Comment Urine Culture Comments Ur Random Sodium meq/L Nasal Screen MRSA (PCR) Random Vancomycin Comment Urine Opiates Screen (Neg) Ur Barbiturates Screen (Neg) Ur Amphetamines Screen (Neg) U Benzodiazepines Scrn (Neg) Urine Cocaine Screen (Neg) U Cannabinoids Screen (Neg) Serum Alcohol (0-5) mg/dL 06/02/18 06/02/18 06/02/18 Range/Units 16:06 17:31 21:33 WBC (4.0-11.0) th/mm3 RBC (4.50-5.90) mil/mm3 Hgb (13.0-17.0) gm/dL Hct (39.0-51.0) % MCV (80.0-100.0) fL MCH (27.0-34.0) pg MCHC (32.0-36.0) % RDW (11.6-17.2) % Plt Count (150-450) th/mm3 MPV (7.0-11.0) fL Neut % (Auto) (16.0-70.0) % Lymph % (Auto) (9.0-44.0) % [place] % (Auto) (0.0-8.0) % Eos % (Auto) (0.0-4.0) % Baso % (Auto) (0.0-2.0) % Neut # (Auto) (1.8-7.7) th/mm3 Lymph # (Auto) (1.0-4.8) th/mm3 [place] # (Auto) (0.0-0.9) th/mm3 Eos # (Auto) (0.0-0.4) th/mm3 Baso # (Auto) (0.0-0.2) th/mm3 WBC Differential Differential Comment PT (9.8-11.6) sec INR Ratio APTT (24.3-30.1) sec Puncture Site Patient Temperature O2 Saturation (90-100) % ABG pH (7.380-7.420) ABG pCO2 (38-42) mmHg ABG pO2 (61-120) mmHg ABG HCO3 (22-26) mmol/L ABG O2 Content (12.0-20.0) Vol % ABG Base Excess (-2-2) mmol/L ABG Methemoglobin (0-2) % Parker Test Hemoglobin (12.0-16.0) G/DL Carboxyhemoglobin (0-4) % O2 Delivery Device Liter Flow L/M Inspired O2 % Critical Value Sodium (136-145) meq/L Potassium (3.5-5.1) meq/L Chloride (98-107) meq/L Carbon Dioxide (21.0-32.0) meq/L Anion Gap (5-15) meq/L BUN (7-18) mg/dL Creatinine (0.60-1.30) mg/dL Estimated GFR (>89) mL/min POC Glucose 173 H 231 H (68-110) mg/dl Random Glucose (74-106) mg/dL Lactic Acid (0.4-2.0) mmol/L Calcium (8.5-10.1) mg/dL Phosphorus (2.5-4.9) mg/dL Magnesium (1.5-2.5) mg/dL Total Bilirubin (0.2-1.0) mg/dL AST (15-37) U/L ALT (12-78) U/L Alkaline Phosphatase (45-117) U/L Total Creatine Kinase (39-308) U/L CK-MB (CK-2) (0.5-3.6) ng/mL CK-MB (CK-2) % (0.0-4.0) % Troponin I Greater than 40.00 H* (0.02-0.05) ng/mL Total Protein (6.4-8.2) g/dL Albumin (3.4-5.0) g/dL Beta-Hydroxybutyric Acd (0.00-0.39) mmol/L Urine Color (Yellw/Straw) Urine Clarity (Clear) Urine pH (5.0-8.5) Ur Specific [place] (1.002-1.035) Urine Protein (Neg-Trace) mg/dL Urine Glucose (UA) (Negative) mg/dL Urine Ketones (Negative) mg/dL Urine Occult Blood (Negative) Urine Nitrate (Negative) Urine Bilirubin (Negative) Urine Urobilinogen (Less than 2) mg/dL Ur Leukocyte Esterase (Negative) Urine RBC (0-3) /hpf Urine WBC (0-5) /hpf Urine WBC Clumps (None) Ur Squamous Epith Cells (0-5) /hpf Urine Bacteria (None) /hpf Micro UA Comment Urine Culture Comments Ur Random Sodium meq/L Nasal Screen MRSA (PCR) Random Vancomycin Comment Urine Opiates Screen (Neg) Ur Barbiturates Screen (Neg) Ur Amphetamines Screen (Neg) U Benzodiazepines Scrn (Neg) Urine Cocaine Screen (Neg) U Cannabinoids Screen (Neg) Serum Alcohol (0-5) mg/dL 06/02/18 06/02/18 06/02/18 Range/Units 22:53 22:53 23:56 WBC (4.0-11.0) th/mm3 RBC (4.50-5.90) mil/mm3 Hgb (13.0-17.0) gm/dL Hct (39.0-51.0) % MCV (80.0-100.0) fL MCH (27.0-34.0) pg MCHC (32.0-36.0) % RDW (11.6-17.2) % Plt Count (150-450) th/mm3 MPV (7.0-11.0) fL Neut % (Auto) (16.0-70.0) % Lymph % (Auto) (9.0-44.0) % [place] % (Auto) (0.0-8.0) % Eos % (Auto) (0.0-4.0) % Baso % (Auto) (0.0-2.0) % Neut # (Auto) (1.8-7.7) th/mm3 Lymph # (Auto) (1.0-4.8) th/mm3 [place] # (Auto) (0.0-0.9) th/mm3 Eos # (Auto) (0.0-0.4) th/mm3 Baso # (Auto) (0.0-0.2) th/mm3 WBC Differential Differential Comment PT (9.8-11.6) sec INR Ratio APTT 33.4 H (24.3-30.1) sec Puncture Site Patient Temperature O2 Saturation (90-100) % ABG pH (7.380-7.420) ABG pCO2 (38-42) mmHg ABG pO2 (61-120) mmHg ABG HCO3 (22-26) mmol/L ABG O2 Content (12.0-20.0) Vol % ABG Base Excess (-2-2) mmol/L ABG Methemoglobin (0-2) % Parker Test Hemoglobin (12.0-16.0) G/DL Carboxyhemoglobin (0-4) % O2 Delivery Device Liter Flow L/M Inspired O2 % Critical Value Sodium 139 (136-145) meq/L Potassium 4.2 (3.5-5.1) meq/L Chloride 112 H (98-107) meq/L Carbon Dioxide 16.6 L (21.0-32.0) meq/L Anion Gap 10 (5-15) meq/L BUN 60 H (7-18) mg/dL Creatinine 2.56 H (0.60-1.30) mg/dL Estimated GFR 25 L (>89) mL/min POC Glucose 295 H (68-110) mg/dl Random Glucose 236 H (74-106) mg/dL Lactic Acid (0.4-2.0) mmol/L Calcium 8.0 L (8.5-10.1) mg/dL Phosphorus (2.5-4.9) mg/dL Magnesium (1.5-2.5) mg/dL Total Bilirubin 0.2 (0.2-1.0) mg/dL AST 288 H (15-37) U/L ALT 60 (12-78) U/L Alkaline Phosphatase 75 (45-117) U/L Total Creatine Kinase 13228 H (39-308) U/L CK-MB (CK-2) 87.4 H (0.5-3.6) ng/mL CK-MB (CK-2) % 0.8 (0.0-4.0) % Troponin I 28.10 H* (0.02-0.05) ng/mL Total Protein 7.7 (6.4-8.2) g/dL Albumin 2.2 L (3.4-5.0) g/dL Beta-Hydroxybutyric Acd (0.00-0.39) mmol/L Urine Color (Yellw/Straw) Urine Clarity (Clear) Urine pH (5.0-8.5) Ur Specific [place] (1.002-1.035) Urine Protein (Neg-Trace) mg/dL Urine Glucose (UA) (Negative) mg/dL Urine Ketones (Negative) mg/dL Urine Occult Blood (Negative) Urine Nitrate (Negative) Urine Bilirubin (Negative) Urine Urobilinogen (Less than 2) mg/dL Ur Leukocyte Esterase (Negative) Urine RBC (0-3) /hpf Urine WBC (0-5) /hpf Urine WBC Clumps (None) Ur Squamous Epith Cells (0-5) /hpf Urine Bacteria (None) /hpf Micro UA Comment Urine Culture Comments Ur Random Sodium meq/L Nasal Screen MRSA (PCR) Random Vancomycin Comment Urine Opiates Screen (Neg) Ur Barbiturates Screen (Neg) Ur Amphetamines Screen (Neg) U Benzodiazepines Scrn (Neg) Urine Cocaine Screen (Neg) U Cannabinoids Screen (Neg) Serum Alcohol (0-5) mg/dL 06/03/18 06/03/18 06/03/18 Range/Units 06:03 06:52 06:52 WBC 16.9 H (4.0-11.0) th/mm3 RBC 4.46 L (4.50-5.90) mil/mm3 Hgb 12.5 L (13.0-17.0) gm/dL Hct 38.2 L (39.0-51.0) % MCV 85.5 (80.0-100.0) fL MCH 28.1 (27.0-34.0) pg MCHC 32.8 (32.0-36.0) % RDW 15.3 (11.6-17.2) % Plt Count 217 (150-450) th/mm3 MPV 9.5 (7.0-11.0) fL Neut % (Auto) (16.0-70.0) % Lymph % (Auto) (9.0-44.0) % [place] % (Auto) (0.0-8.0) % Eos % (Auto) (0.0-4.0) % Baso % (Auto) (0.0-2.0) % Neut # (Auto) (1.8-7.7) th/mm3 Lymph # (Auto) (1.0-4.8) th/mm3 [place] # (Auto) (0.0-0.9) th/mm3 Eos # (Auto) (0.0-0.4) th/mm3 Baso # (Auto) (0.0-0.2) th/mm3 WBC Differential Differential Comment PT (9.8-11.6) sec INR Ratio APTT (24.3-30.1) sec Puncture Site Patient Temperature O2 Saturation (90-100) % ABG pH (7.380-7.420) ABG pCO2 (38-42) mmHg ABG pO2 (61-120) mmHg ABG HCO3 (22-26) mmol/L ABG O2 Content (12.0-20.0) Vol % ABG Base Excess (-2-2) mmol/L ABG Methemoglobin (0-2) % Parker Test Hemoglobin (12.0-16.0) G/DL Carboxyhemoglobin (0-4) % O2 Delivery Device Liter Flow L/M Inspired O2 % Critical Value Sodium (136-145) meq/L Potassium (3.5-5.1) meq/L Chloride (98-107) meq/L Carbon Dioxide (21.0-32.0) meq/L Anion Gap (5-15) meq/L BUN (7-18) mg/dL Creatinine (0.60-1.30) mg/dL Estimated GFR (>89) mL/min POC Glucose 256 H (68-110) mg/dl Random Glucose (74-106) mg/dL Lactic Acid (0.4-2.0) mmol/L Calcium (8.5-10.1) mg/dL Phosphorus (2.5-4.9) mg/dL Magnesium (1.5-2.5) mg/dL Total Bilirubin (0.2-1.0) mg/dL AST (15-37) U/L ALT (12-78) U/L Alkaline Phosphatase (45-117) U/L Total Creatine Kinase (39-308) U/L CK-MB (CK-2) (0.5-3.6) ng/mL CK-MB (CK-2) % (0.0-4.0) % Troponin I (0.02-0.05) ng/mL Total Protein (6.4-8.2) g/dL Albumin (3.4-5.0) g/dL Beta-Hydroxybutyric Acd (0.00-0.39) mmol/L Urine Color (Yellw/Straw) Urine Clarity (Clear) Urine pH (5.0-8.5) Ur Specific [place] (1.002-1.035) Urine Protein (Neg-Trace) mg/dL Urine Glucose (UA) (Negative) mg/dL Urine Ketones (Negative) mg/dL Urine Occult Blood (Negative) Urine Nitrate (Negative) Urine Bilirubin (Negative) Urine Urobilinogen (Less than 2) mg/dL Ur Leukocyte Esterase (Negative) Urine RBC (0-3) /hpf Urine WBC (0-5) /hpf Urine WBC Clumps (None) Ur Squamous Epith Cells (0-5) /hpf Urine Bacteria (None) /hpf Micro UA Comment Urine Culture Comments Ur Random Sodium meq/L Nasal Screen MRSA (PCR) Random Vancomycin 15.6 Comment Urine Opiates Screen (Neg) Ur Barbiturates Screen (Neg) Ur Amphetamines Screen (Neg) U Benzodiazepines Scrn (Neg) Urine Cocaine Screen (Neg) U Cannabinoids Screen (Neg) Serum Alcohol (0-5) mg/dL 06/03/18 06/03/18 06/03/18 Range/Units 06:52 08:50 10:00 WBC (4.0-11.0) th/mm3 RBC (4.50-5.90) mil/mm3 Hgb (13.0-17.0) gm/dL Hct (39.0-51.0) % MCV (80.0-100.0) fL MCH (27.0-34.0) pg MCHC (32.0-36.0) % RDW (11.6-17.2) % Plt Count (150-450) th/mm3 MPV (7.0-11.0) fL Neut % (Auto) (16.0-70.0) % Lymph % (Auto) (9.0-44.0) % [place] % (Auto) (0.0-8.0) % Eos % (Auto) (0.0-4.0) % Baso % (Auto) (0.0-2.0) % Neut # (Auto) (1.8-7.7) th/mm3 Lymph # (Auto) (1.0-4.8) th/mm3 Creek # (Auto) (0.0-0.9) th/mm3 Eos # (Auto) (0.0-0.4) th/mm3 Baso # (Auto) (0.0-0.2) th/mm3 WBC Differential Differential Comment PT (9.8-11.6) sec INR Ratio APTT 31.5 H (24.3-30.1) sec Puncture Site Right radial Patient Temperature 98.6 O2 Saturation 92 (90-100) % ABG pH 7.28 L* (7.380-7.420) ABG pCO2 38 (38-42) mmHg ABG pO2 77 (61-120) mmHg ABG HCO3 17 L (22-26) mmol/L ABG O2 Content 17.8 (12.0-20.0) Vol % ABG Base Excess -8.3 L (-2-2) mmol/L ABG Methemoglobin 1.9 (0-2) % Parker Test Present Hemoglobin 13.8 (12.0-16.0) G/DL Carboxyhemoglobin 0.9 (0-4) % O2 Delivery Device Nasal cannula Liter Flow 2.00 L/M Inspired O2 21 % Critical Value Yes Sodium (136-145) meq/L Potassium (3.5-5.1) meq/L Chloride (98-107) meq/L Carbon Dioxide (21.0-32.0) meq/L Anion Gap (5-15) meq/L BUN (7-18) mg/dL Creatinine (0.60-1.30) mg/dL Estimated GFR (>89) mL/min POC Glucose 253 H (68-110) mg/dl Random Glucose (74-106) mg/dL Lactic Acid (0.4-2.0) mmol/L Calcium (8.5-10.1) mg/dL Phosphorus (2.5-4.9) mg/dL Magnesium (1.5-2.5) mg/dL Total Bilirubin (0.2-1.0) mg/dL AST (15-37) U/L ALT (12-78) U/L Alkaline Phosphatase (45-117) U/L Total Creatine Kinase (39-308) U/L CK-MB (CK-2) (0.5-3.6) ng/mL CK-MB (CK-2) % (0.0-4.0) % Troponin I (0.02-0.05) ng/mL Total Protein (6.4-8.2) g/dL Albumin (3.4-5.0) g/dL Beta-Hydroxybutyric Acd (0.00-0.39) mmol/L Urine Color (Yellw/Straw) Urine Clarity (Clear) Urine pH (5.0-8.5) Ur Specific [place] (1.002-1.035) Urine Protein (Neg-Trace) mg/dL Urine Glucose (UA) (Negative) mg/dL Urine Ketones (Negative) mg/dL Urine Occult Blood (Negative) Urine Nitrate (Negative) Urine Bilirubin (Negative) Urine Urobilinogen (Less than 2) mg/dL Ur Leukocyte Esterase (Negative) Urine RBC (0-3) /hpf Urine WBC (0-5) /hpf Urine WBC Clumps (None) Ur Squamous Epith Cells (0-5) /hpf Urine Bacteria (None) /hpf Micro UA Comment Urine Culture Comments Ur Random Sodium meq/L Nasal Screen MRSA (PCR) Random Vancomycin Comment Urine Opiates Screen (Neg) Ur Barbiturates Screen (Neg) Ur Amphetamines Screen (Neg) U Benzodiazepines Scrn (Neg) Urine Cocaine Screen (Neg) U Cannabinoids Screen (Neg) Serum Alcohol (0-5) mg/dL 06/03/18 06/03/18 06/03/18 Range/Units 10:54 11:08 12:25 WBC (4.0-11.0) th/mm3 RBC (4.50-5.90) mil/mm3 Hgb (13.0-17.0) gm/dL Hct (39.0-51.0) % MCV (80.0-100.0) fL MCH (27.0-34.0) pg MCHC (32.0-36.0) % RDW (11.6-17.2) % Plt Count (150-450) th/mm3 MPV (7.0-11.0) fL Neut % (Auto) (16.0-70.0) % Lymph % (Auto) (9.0-44.0) % Creek % (Auto) (0.0-8.0) % Eos % (Auto) (0.0-4.0) % Baso % (Auto) (0.0-2.0) % Neut # (Auto) (1.8-7.7) th/mm3 Lymph # (Auto) (1.0-4.8) th/mm3 Creek # (Auto) (0.0-0.9) th/mm3 Eos # (Auto) (0.0-0.4) th/mm3 Baso # (Auto) (0.0-0.2) th/mm3 WBC Differential Differential Comment PT (9.8-11.6) sec INR Ratio APTT (24.3-30.1) sec Puncture Site Patient Temperature O2 Saturation (90-100) % ABG pH (7.380-7.420) ABG pCO2 (38-42) mmHg ABG pO2 (61-120) mmHg ABG HCO3 (22-26) mmol/L ABG O2 Content (12.0-20.0) Vol % ABG Base Excess (-2-2) mmol/L ABG Methemoglobin (0-2) % Parker Test Hemoglobin (12.0-16.0) G/DL Carboxyhemoglobin (0-4) % O2 Delivery Device Liter Flow L/M Inspired O2 % Critical Value Sodium 142 (136-145) meq/L Potassium 4.0 (3.5-5.1) meq/L Chloride 113 H (98-107) meq/L Carbon Dioxide 17.7 L (21.0-32.0) meq/L Anion Gap 11 (5-15) meq/L BUN 61 H (7-18) mg/dL Creatinine 2.79 H (0.60-1.30) mg/dL Estimated GFR 22 L (>89) mL/min POC Glucose 256 H (68-110) mg/dl Random Glucose 232 H (74-106) mg/dL Lactic Acid (0.4-2.0) mmol/L Calcium 8.0 L (8.5-10.1) mg/dL Phosphorus (2.5-4.9) mg/dL Magnesium (1.5-2.5) mg/dL Total Bilirubin 0.3 (0.2-1.0) mg/dL AST 190 H (15-37) U/L ALT 54 (12-78) U/L Alkaline Phosphatase 69 (45-117) U/L Total Creatine Kinase 6823 H (39-308) U/L CK-MB (CK-2) 55.2 H (0.5-3.6) ng/mL CK-MB (CK-2) % 0.8 (0.0-4.0) % Troponin I 19.10 H* (0.02-0.05) ng/mL Total Protein 7.0 D (6.4-8.2) g/dL Albumin 2.1 L (3.4-5.0) g/dL Beta-Hydroxybutyric Acd (0.00-0.39) mmol/L Urine Color (Yellw/Straw) Urine Clarity (Clear) Urine pH (5.0-8.5) Ur Specific [place] (1.002-1.035) Urine Protein (Neg-Trace) mg/dL Urine Glucose (UA) (Negative) mg/dL Urine Ketones (Negative) mg/dL Urine Occult Blood (Negative) Urine Nitrate (Negative) Urine Bilirubin (Negative) Urine Urobilinogen (Less than 2) mg/dL Ur Leukocyte Esterase (Negative) Urine RBC (0-3) /hpf Urine WBC (0-5) /hpf Urine WBC Clumps (None) Ur Squamous Epith Cells (0-5) /hpf Urine Bacteria (None) /hpf Micro UA Comment Urine Culture Comments Ur Random Sodium 21 meq/L Nasal Screen MRSA (PCR) Random Vancomycin Comment Urine Opiates Screen (Neg) Ur Barbiturates Screen (Neg) Ur Amphetamines Screen (Neg) U Benzodiazepines Scrn (Neg) Urine Cocaine Screen (Neg) U Cannabinoids Screen (Neg) Serum Alcohol (0-5) mg/dL 06/03/18 06/03/18 06/03/18 Range/Units 14:09 16:33 16:33 WBC (4.0-11.0) th/mm3 RBC (4.50-5.90) mil/mm3 Hgb (13.0-17.0) gm/dL Hct (39.0-51.0) % MCV (80.0-100.0) fL MCH (27.0-34.0) pg MCHC (32.0-36.0) % RDW (11.6-17.2) % Plt Count (150-450) th/mm3 MPV (7.0-11.0) fL Neut % (Auto) (16.0-70.0) % Lymph % (Auto) (9.0-44.0) % [place] % (Auto) (0.0-8.0) % Eos % (Auto) (0.0-4.0) % Baso % (Auto) (0.0-2.0) % Neut # (Auto) (1.8-7.7) th/mm3 Lymph # (Auto) (1.0-4.8) th/mm3 [place] # (Auto) (0.0-0.9) th/mm3 Eos # (Auto) (0.0-0.4) th/mm3 Baso # (Auto) (0.0-0.2) th/mm3 WBC Differential Differential Comment PT (9.8-11.6) sec INR Ratio APTT 34.1 H (24.3-30.1) sec Puncture Site Patient Temperature O2 Saturation (90-100) % ABG pH (7.380-7.420) ABG pCO2 (38-42) mmHg ABG pO2 (61-120) mmHg ABG HCO3 (22-26) mmol/L ABG O2 Content (12.0-20.0) Vol % ABG Base Excess (-2-2) mmol/L ABG Methemoglobin (0-2) % Parker Test Hemoglobin (12.0-16.0) G/DL Carboxyhemoglobin (0-4) % O2 Delivery Device Liter Flow L/M Inspired O2 % Critical Value Sodium (136-145) meq/L Potassium (3.5-5.1) meq/L Chloride (98-107) meq/L Carbon Dioxide (21.0-32.0) meq/L Anion Gap (5-15) meq/L BUN (7-18) mg/dL Creatinine (0.60-1.30) mg/dL Estimated GFR (>89) mL/min POC Glucose (68-110) mg/dl Random Glucose (74-106) mg/dL Lactic Acid 1.0 (0.4-2.0) mmol/L Calcium (8.5-10.1) mg/dL Phosphorus (2.5-4.9) mg/dL Magnesium (1.5-2.5) mg/dL Total Bilirubin (0.2-1.0) mg/dL AST (15-37) U/L ALT (12-78) U/L Alkaline Phosphatase (45-117) U/L Total Creatine Kinase (39-308) U/L CK-MB (CK-2) (0.5-3.6) ng/mL CK-MB (CK-2) % (0.0-4.0) % Troponin I 16.40 H* (0.02-0.05) ng/mL Total Protein (6.4-8.2) g/dL Albumin (3.4-5.0) g/dL Beta-Hydroxybutyric Acd (0.00-0.39) mmol/L Urine Color (Yellw/Straw) Urine Clarity (Clear) Urine pH (5.0-8.5) Ur Specific [place] (1.002-1.035) Urine Protein (Neg-Trace) mg/dL Urine Glucose (UA) (Negative) mg/dL Urine Ketones (Negative) mg/dL Urine Occult Blood (Negative) Urine Nitrate (Negative) Urine Bilirubin (Negative) Urine Urobilinogen (Less than 2) mg/dL Ur Leukocyte Esterase (Negative) Urine RBC (0-3) /hpf Urine WBC (0-5) /hpf Urine WBC Clumps (None) Ur Squamous Epith Cells (0-5) /hpf Urine Bacteria (None) /hpf Micro UA Comment Urine Culture Comments Ur Random Sodium meq/L Nasal Screen MRSA (PCR) Random Vancomycin Comment Urine Opiates Screen (Neg) Ur Barbiturates Screen (Neg) Ur Amphetamines Screen (Neg) U Benzodiazepines Scrn (Neg) Urine Cocaine Screen (Neg) U Cannabinoids Screen (Neg) Serum Alcohol (0-5) mg/dL 06/03/18 06/03/18 06/04/18 Range/Units 16:37 21:27 00:29 WBC (4.0-11.0) th/mm3 RBC (4.50-5.90) mil/mm3 Hgb (13.0-17.0) gm/dL Hct (39.0-51.0) % MCV (80.0-100.0) fL MCH (27.0-34.0) pg MCHC (32.0-36.0) % RDW (11.6-17.2) % Plt Count (150-450) th/mm3 MPV (7.0-11.0) fL Neut % (Auto) (16.0-70.0) % Lymph % (Auto) (9.0-44.0) % Creek % (Auto) (0.0-8.0) % Eos % (Auto) (0.0-4.0) % Baso % (Auto) (0.0-2.0) % Neut # (Auto) (1.8-7.7) th/mm3 Lymph # (Auto) (1.0-4.8) th/mm3 Creek # (Auto) (0.0-0.9) th/mm3 Eos # (Auto) (0.0-0.4) th/mm3 Baso # (Auto) (0.0-0.2) th/mm3 WBC Differential Differential Comment PT (9.8-11.6) sec INR Ratio APTT 35.6 H (24.3-30.1) sec Puncture Site Patient Temperature O2 Saturation (90-100) % ABG pH (7.380-7.420) ABG pCO2 (38-42) mmHg ABG pO2 (61-120) mmHg ABG HCO3 (22-26) mmol/L ABG O2 Content (12.0-20.0) Vol % ABG Base Excess (-2-2) mmol/L ABG Methemoglobin (0-2) % Parker Test Hemoglobin (12.0-16.0) G/DL Carboxyhemoglobin (0-4) % O2 Delivery Device Liter Flow L/M Inspired O2 % Critical Value Sodium (136-145) meq/L Potassium (3.5-5.1) meq/L Chloride (98-107) meq/L Carbon Dioxide (21.0-32.0) meq/L Anion Gap (5-15) meq/L BUN (7-18) mg/dL Creatinine (0.60-1.30) mg/dL Estimated GFR (>89) mL/min POC Glucose 196 H 181 H (68-110) mg/dl Random Glucose (74-106) mg/dL Lactic Acid (0.4-2.0) mmol/L Calcium (8.5-10.1) mg/dL Phosphorus (2.5-4.9) mg/dL Magnesium (1.5-2.5) mg/dL Total Bilirubin (0.2-1.0) mg/dL AST (15-37) U/L ALT (12-78) U/L Alkaline Phosphatase (45-117) U/L Total Creatine Kinase (39-308) U/L CK-MB (CK-2) (0.5-3.6) ng/mL CK-MB (CK-2) % (0.0-4.0) % Troponin I (0.02-0.05) ng/mL Total Protein (6.4-8.2) g/dL Albumin (3.4-5.0) g/dL Beta-Hydroxybutyric Acd (0.00-0.39) mmol/L Urine Color (Yellw/Straw) Urine Clarity (Clear) Urine pH (5.0-8.5) Ur Specific [place] (1.002-1.035) Urine Protein (Neg-Trace) mg/dL Urine Glucose (UA) (Negative) mg/dL Urine Ketones (Negative) mg/dL Urine Occult Blood (Negative) Urine Nitrate (Negative) Urine Bilirubin (Negative) Urine Urobilinogen (Less than 2) mg/dL Ur Leukocyte Esterase (Negative) Urine RBC (0-3) /hpf Urine WBC (0-5) /hpf Urine WBC Clumps (None) Ur Squamous Epith Cells (0-5) /hpf Urine Bacteria (None) /hpf Micro UA Comment Urine Culture Comments Ur Random Sodium meq/L Nasal Screen MRSA (PCR) Random Vancomycin Comment Urine Opiates Screen (Neg) Ur Barbiturates Screen (Neg) Ur Amphetamines Screen (Neg) U Benzodiazepines Scrn (Neg) Urine Cocaine Screen (Neg) U Cannabinoids Screen (Neg) Serum Alcohol (0-5) mg/dL 06/04/18 06/04/18 Range/Units 00:36 04:37 WBC (4.0-11.0) th/mm3 RBC (4.50-5.90) mil/mm3 Hgb (13.0-17.0) gm/dL Hct (39.0-51.0) % MCV (80.0-100.0) fL MCH (27.0-34.0) pg MCHC (32.0-36.0) % RDW (11.6-17.2) % Plt Count (150-450) th/mm3 MPV (7.0-11.0) fL Neut % (Auto) (16.0-70.0) % Lymph % (Auto) (9.0-44.0) % Creek % (Auto) (0.0-8.0) % Eos % (Auto) (0.0-4.0) % Baso % (Auto) (0.0-2.0) % Neut # (Auto) (1.8-7.7) th/mm3 Lymph # (Auto) (1.0-4.8) th/mm3 Creek # (Auto) (0.0-0.9) th/mm3 Eos # (Auto) (0.0-0.4) th/mm3 Baso # (Auto) (0.0-0.2) th/mm3 WBC Differential Differential Comment PT (9.8-11.6) sec INR Ratio APTT (24.3-30.1) sec Puncture Site Patient Temperature O2 Saturation (90-100) % ABG pH (7.380-7.420) ABG pCO2 (38-42) mmHg ABG pO2 (61-120) mmHg ABG HCO3 (22-26) mmol/L ABG O2 Content (12.0-20.0) Vol % ABG Base Excess (-2-2) mmol/L ABG Methemoglobin (0-2) % Parker Test Hemoglobin (12.0-16.0) G/DL Carboxyhemoglobin (0-4) % O2 Delivery Device Liter Flow L/M Inspired O2 % Critical Value Sodium (136-145) meq/L Potassium (3.5-5.1) meq/L Chloride (98-107) meq/L Carbon Dioxide (21.0-32.0) meq/L Anion Gap (5-15) meq/L BUN (7-18) mg/dL Creatinine (0.60-1.30) mg/dL Estimated GFR (>89) mL/min POC Glucose 223 H 192 H (68-110) mg/dl Random Glucose (74-106) mg/dL Lactic Acid (0.4-2.0) mmol/L Calcium (8.5-10.1) mg/dL Phosphorus (2.5-4.9) mg/dL Magnesium (1.5-2.5) mg/dL Total Bilirubin (0.2-1.0) mg/dL AST (15-37) U/L ALT (12-78) U/L Alkaline Phosphatase (45-117) U/L Total Creatine Kinase (39-308) U/L CK-MB (CK-2) (0.5-3.6) ng/mL CK-MB (CK-2) % (0.0-4.0) % Troponin I (0.02-0.05) ng/mL Total Protein (6.4-8.2) g/dL Albumin (3.4-5.0) g/dL Beta-Hydroxybutyric Acd (0.00-0.39) mmol/L Urine Color (Yellw/Straw) Urine Clarity (Clear) Urine pH (5.0-8.5) Ur Specific [place] (1.002-1.035) Urine Protein (Neg-Trace) mg/dL Urine Glucose (UA) (Negative) mg/dL Urine Ketones (Negative) mg/dL Urine Occult Blood (Negative) Urine Nitrate (Negative) Urine Bilirubin (Negative) Urine Urobilinogen (Less than 2) mg/dL Ur Leukocyte Esterase (Negative) Urine RBC (0-3) /hpf Urine WBC (0-5) /hpf Urine WBC Clumps (None) Ur Squamous Epith Cells (0-5) /hpf Urine Bacteria (None) /hpf Micro UA Comment Urine Culture Comments Ur Random Sodium meq/L Nasal Screen MRSA (PCR) Random Vancomycin Comment Urine Opiates Screen (Neg) Ur Barbiturates Screen (Neg) Ur Amphetamines Screen (Neg) U Benzodiazepines Scrn (Neg) Urine Cocaine Screen (Neg) U Cannabinoids Screen (Neg) Serum Alcohol (0-5) mg/dL Imaging Data Radiologist's impression: Chest X-Ray 06/01/18 18:07 CONCLUSION: Mild left base consolidation. Head CT 06/01/18 18:07 CONCLUSION: 1. No acute intracranial abnormality is demonstrated. 2. 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 . Abdomen Ultrasound 06/02/18 00:00 CONCLUSION: 1. Suboptimal examination. 2. Enlarged liver with apparent hepatic steatosis. No focal lesion is identified. 3. The gallbladder is at the upper limits of normal in size with no evidence of cholelithiasis or biliary obstruction. 4. Right kidney appears increased in echogenicity which could indicate medical renal disease. There is no hydronephrosis. 5. Nonvisualization evaluation of the left kidney, pancreas and spleen. Portions of the aorta was not well visualized as well. Discharge Plan Discharge Disposition Patient Disposition: 30 Still Patient Discharge Condition Condition: Critical Discharge Details Anticipated Discharge Date: 06/01/18 Physicians Team ED Provider: Arnulfo Robles Primary Care Provider: UNKNOWN, Attending Provider: Westley Hinojosa Other Providers: Yariel Borjas ; Mike Hinkle Discharge Interventions Interventions: ED Discharge Assessment Last Done: 06/02/18 07:17 Vital Signs Last Done: 06/01/18 19:19 Status ED Status: Left Department Discharge Information Discharge Date/Time: 06/02/18 05:45
[2018-06-01 18:34] LABS: ABG Base Excess -10.9 mmol/L (-2-2); ABG PCO2 35 mmHg (38-42); ABG PO2 93 mmHg (61-120)
[2018-06-01 18:47] LABS: Baso # (Auto) 0.1 th/mm3 (0.0-0.2); Baso % (Auto) 0.7 % (0.0-2.0); Eos % (Auto) 0.1 % (0.0-4.0); Hematocrit 40.5 % (39.0-51.0); Hemoglobin 12.5 gm/dL (13.0-17.0); Lymph # (Auto) 1.8 th/mm3 (1.0-4.8); Lymph % (Auto) 10.7 % (9.0-44.0); Mean Corpuscular Hemoglobin 27.6 pg (27.0-34.0); Mean Corpuscular Volume 89.6 fL (80.0-100.0); Mean Platelet Volume 10.1 fL (7.0-11.0); Mono # (Auto) 0.9 th/mm3 (0.0-0.9); Mono % (Auto) 5.5 % (0.0-8.0); Neut # (Auto) 14.3 th/mm3 (1.8-7.7); Platelet Count 304 th/mm3 (150-450); Red Blood Count 4.53 mil/mm3 (4.50-5.90); Red Cell Distribution Width 14.7 % (11.6-17.2); White Blood Count 17.3 th/mm3 (4.0-11.0)
[2018-06-01 18:49] LABS: Mean Corpuscular HGB Conc 30.8 % (32.0-36.0)
[2018-06-01 18:58] LABS: Amphetamine Screen,Urine Neg (Neg); Barbiturate Screen,Urine Neg (Neg); Cannabinoid Screen,Urine Neg (Neg)
[2018-06-01 19:00] LABS: Cocaine Screen,Urine Neg (Neg)
[2018-06-01 19:05] LABS: Opiate Screen,Urine Neg (Neg)
[2018-06-01 19:05] LABS: Activated Partial Thrombo Time 23.7 sec (24.3-30.1); Anion Gap 21 meq/L (5-15); INR 1.1 Ratio; Prothrombin Time 11.1 sec (9.8-11.6)
[2018-06-01 19:13] LABS: Alanine Aminotransferase 15 U/L (12-78); Albumin 2.5 g/dL (3.4-5.0); Alkaline Phosphatase 91 U/L (45-117); Aspartate Aminotransferase 28 U/L (15-37); Beta Hydroxybutyric Acid 0.24 mmol/L (0.00-0.39); Blood Urea Nitrogen 55 mg/dL (7-18); Calcium 8.9 mg/dL (8.5-10.1); Carbon Dioxide 14.7 meq/L (21.0-32.0); Chloride 98 meq/L (98-107); Glomerular Filtration Rate 21 mL/min (>89); Potassium 4.3 meq/L (3.5-5.1); Sodium 134 meq/L (136-145); Total Protein 8.3 g/dL (6.4-8.2); Troponin I 0.08 ng/mL (0.02-0.05)
[2018-06-01 19:15] LABS: Glucose,Random 709 mg/dL (74-106)
--- NOTE | 2018-06-01 19:24 | XR ---
EXAM DATE: 06/01/2018 7:11 PM EDT AGE/SEX: 72 years / Male INDICATIONS: Pneumonia. Congestion. CLINICAL DATA: This is the patient's initial encounter. Patient reports that signs and symptoms have been present for 3 days and indicates a pain score of 5/10. MEDICAL/SURGICAL HISTORY: None. None. COMPARISON: No prior exams available for comparison. FINDINGS: Mild consolidation seen left base. Right lung reasonably clear. No large effusion demonstrated. No pn eumothorax. There is mild cardiomegaly. Thoracic aorta is tortuous. CONCLUSION: Mild left base consolidation. Electronically signed by: Xander Garcia MD 06/01/2018 7:23 PM EDT
[2018-06-01] MEDS ORDERED: Bisacodyl 10 MG Supp RECTAL PRN (19:59)
[2018-06-01] MEDS ORDERED: Acetaminophen 325 MG Tablet PO PRN (19:59)
[2018-06-01] MEDS ORDERED: [UNRECOGNIZED DRUG - OTHER] TOPICAL SCH (20:00)
[2018-06-01 20:51] LABS: Bacteria,Urine Many /hpf; Bilirubin,Urine Negative (Negative); Clarity,Urine Turbid (Clear); Color,Urine Yellow (Yellw/Straw); Glucose,Urine (UA) 500 or Greater mg/dL (Negative); Leukocyte Esterase,Urine Large (Negative); Nitrite,Urine Negative (Negative); Specific Gravity,Urine 1.014 (1.002-1.035); Squamous Epithelial Cell,Urine 2 /hpf (0-5)
[2018-06-01] MEDS ORDERED: Heparin - SQ 10,000 UNITS/ML Vial SQ SCH (21:00)
--- NOTE | 2018-06-01 21:21 | P.HPCC ---
History of Present Illness Primary Care Physician: UNKNOWN History of Present Illness: 72-year-old morbidly obese male with history of diabetes, multiple medical issues, presents because a physics tutor found him in the bathroom slumped over. Apparently he was last seen normal this morning around 10 AM, but patient is currently fairly disoriented, not able to answer many questions. EMS found his blood sugars reading high, and his blood pressures were low. His sugars in the emergency department were extremely high, his beta butyric acid is negative. His second troponin was also found to be 27. Review of Systems unobtainable due to mental condition PMFSH - History History Provided By: Loans Consultant / EMT - Medical History Medical History: Medical History (Last Updated 06/01/18 @ 18:34 by Inez Watters) Depression Diabetes Diabetes GERD (gastroesophageal reflux disease) HTN (hypertension) High cholesterol Neuropathy - Tobacco History Second Hand Smoke Exposure: No Tobacco Use In Past 30 Days: No Smoking Status: Former smoker - Alcohol History How Often Do You Have a Drink Containing Alcohol: Never - Substance Use History Substance History: No History of Abuse - Travel History Recent Travel in the [place] Within the Last 8 Weeks: No Recent Travel Out of the Country Within the Last 8 Weeks: No - Immunization History Tetanus Immunization: Unsure Hx Influenza Vaccine This Season: No Medications and Allergies Active Medications: Active Medications Acetaminophen (Tylenol) 650 mg PO Q6H PRN PRN Reason: PAIN 1-10 AND/OR FEVER >101F Al Hydroxide/Mg Hydroxide (Milk Of Rasheed Olmedo) 30 ml PO Q12H PRN PRN Reason: Mild Constipation Albuterol (Duoneb Neb (Prn)) 1 ampul NEB Q2HR NEB PRN PRN Reason: WHEEZING Aspirin (Aspirin) 325 mg PO DAILY SHAHEED Atenolol (Tenormin) 25 mg PO DAILY SHAHEED Atorvastatin Calcium (Lipitor) 20 mg PO HS SHAHEED Bisacodyl (Dulcolax Supp) 10 mg RECTAL DAILY PRN PRN Reason: SEVERE CONSITIPATION Chlorhexidine Gluconate (Chlorhexidine 2% Cloth) 3 pack TOPICAL DAILY@0400 SHAHEED Stop: 06/07/18 03:59 Chlorhexidine Gluconate (Chlorhexidine 2% Cloth) 3 pack TOPICAL DAILY@0400 PRN PRN Reason: Extra cloth needed Stop: 06/07/18 03:59 Famotidine (Pepcid Pf Inj) 10 mg IV.PUSH Q12HR [facility] Gabapentin (Neurontin) 300 mg PO Q6HR [facility] Heparin Sodium (Porcine) (Heparin Inj) 5,000 units SQ Q8H SHAHEED Sodium Chloride (Ns Inj) 1,000 mls @ 84 mls/hr IV.CONT .[id number] [facility] Insulin Human Isoph/Insulin Regular (Novolin 70/30 Inj) 50 units SQ QPM [facility] Insulin Human Isoph/Insulin Regular (Novolin 70/30 Inj) 75 units SQ DAILY [facility] Last Admin: 06/01/18 20:39 Dose: 75 units Lactulose (Lactulose Liq) 30 ml PO DAILY PRN PRN Reason: SEVERE CONSITIPATION Lisinopril (Prinivil) 5 mg PO DAILY [facility] Metoclopramide HCl (Reglan Inj) 5 mg IV.PUSH Q6HR [facility]; Protocol Nitrofurantoin Macrocrystals (Macrobid) 100 mg PO 3XW [facility] Non-Formulary Medication (Butenafine [Mentax]) 1 applic TOPICAL DIRECTED [facility] Non-Formulary Medication (Dutasteride [Avodart]) 0.5 mg PO QPM [facility] Ondansetron HCl (Zofran Inj) 4 mg IV.PUSH Q6H PRN PRN Reason: NAUSEA OR VOMITING Senna/Docusate Sodium (Isabella-Colace) 1 tab PO BID [facility] Sennosides (Senokot) 17.2 mg PO Q12H PRN PRN Reason: Moderate Constipation Sodium Chloride (Ns Flush) 2 ml IV.FLUSH BID [facility] Sodium Chloride (Ns Flush) 2 ml IV.FLUSH PRN PRN PRN Reason: FLUSH AFTER USING IV ACCESS Tamsulosin HCl (Flomax) 0.4 mg PO BID [facility] Valsartan (Diovan) 160 mg PO DAILY [facility] Zolpidem Tartrate (Ambien) 10 mg PO [facility] Allergies Allergy/AdvReac Type Severity Reaction Status Date / Time No Allergy Information Allergy Verified 06/01/18 18:09 Available Home Medications Medication Instructions Recorded Confirmed Type aspirin 325 mg PO DAILY 06/01/18 06/01/18 History atenolol 25 mg PO DAILY 06/01/18 06/01/18 History atorvastatin [Lipitor] 20 mg PO HS 06/01/18 06/01/18 History butenafine [Mentax] 1 applic TOPICAL DIRECTED 06/01/18 06/01/18 History duloxetine [Cymbalta] 30 mg PO DAILY 06/01/18 06/01/18 History dutasteride [Avodart] 0.5 mg PO QPM 06/01/18 06/01/18 History gabapentin 300 mg PO Q6HR 06/01/18 06/01/18 History insulin NPH and regular human 50 unit SUB-Q QPM 06/01/18 06/01/18 History [Novolin 70/30 U-100 Insulin] insulin NPH and regular human 75 unit SUB-Q QAM 06/01/18 06/01/18 History [Novolin 70/30 U-100 Insulin] lisinopril 5 mg PO DAILY 06/01/18 06/01/18 History nitrofurantoin monohyd/m-cryst 100 mg PO 3XW 06/01/18 06/01/18 History [Macrobid] pantoprazole [Protonix] 40 mg PO DAILY 06/01/18 06/01/18 History tamsulosin [Flomax] 0.4 mg PO BID 06/01/18 06/01/18 History valsartan [Diovan] 160 mg PO DAILY 06/01/18 06/01/18 History zolpidem [Ambien] 10 mg PO HS 06/01/18 06/01/18 History Results - Labs CBC & Chem 7: 06/01/18 18:09 06/01/18 18:09 Labs: Short CBC 06/01/18 Range/Units 18:09 WBC 17.3 H (4.0-11.0) th/mm3 Hgb 12.5 L (13.0-17.0) gm/dL Hct 40.5 (39.0-51.0) % Plt Count 304 (150-450) th/mm3 BMP 06/01/18 18:09 Sodium 134 L Potassium 4.3 Chloride 98 Carbon Dioxide 14.7 L BUN 55 H Creatinine 2.96 H Calcium 8.9 Cardiac Enzymes 06/01/18 Range/Units 18:09 Troponin I 0.08 H (0.02-0.05) ng/mL Liver Function 06/01/18 Range/Units 18:09 Total Bilirubin 0.4 (0.2-1.0) mg/dL AST 28 (15-37) U/L ALT 15 (12-78) U/L Alkaline Phosphatase 91 (45-117) U/L Albumin 2.5 L (3.4-5.0) g/dL Urine 06/01/18 Range/Units 20:17 Urine Color Yellow (Yellw/Straw) Urine Clarity Turbid H (Clear) Urine pH 5.0 (5.0-8.5) Ur Specific [place] 1.014 (1.002-1.035) Urine Protein 100 H (Neg-Trace) mg/dL Urine Glucose (UA) 500 or greater (Negative) mg/dL - Imaging Impressions Chest X-Ray 06/01/18 18:07 CONCLUSION: Mild left base consolidation. Exam Vital signs: Vital Signs 06/01/18 18:07 06/01/18 18:09 06/01/18 18:10 Temperature 97.6 F Pulse Rate 83 Respiratory Rate 17 Blood Pressure 108/67 Pulse Oximetry 97 97 97 06/01/18 18:19 06/01/18 19:19 Temperature Pulse Rate 92 H 85 Respiratory Rate 17 17 Blood Pressure 118/57 L 131/82 Pulse Oximetry 97 96 Intake & Output 06/01/18 06/01/18 06/02/18 06:59 18:59 06:59 Weight 181.437 kg 181.588 kg - Constitutional moderate distress, morbidly obese - Routine HEENT Exam Head: Present: normocephalic, atraumatic Eye: Present: PERRL. Absent: scleral injection - Routine Neck Exam Present: supple, full ROM. Absent: JVD, carotid bruit - Routine Respiratory Exam Absent: accessory muscle use, rhonchi, stridor, wheezes - Routine Cardiovascular Exam Present: RRR, S1, S2. Absent: murmur, gallop, rubs - Routine Abdominal Exam Present: soft. Absent: tenderness, distended - Routine Extremities Exam Present: edema. Absent: cyanosis, clubbing - Routine Skin Exam Absent: cyanosis, erythema - Routine Neurological Exam Present: alert, altered mental status. Absent: facial asymmetry Septic Shock Reassessment Septic shock perfusion: reassessment completed Caprini VTE Risk Assessment Caprini VTE Risk Assessment: Moderate/High Risk (score >= 2) Caprini Risk Assessment Model: Point Value = 1 Point Value = 2 Point Value = 3 Point Value = 5 Age 41-60 Minor surgery BMI > 25 kg/m2 Swollen legs Varicose veins or History of unexplained or recurrent spontaneous Oral contraceptives or hormone replacement Sepsis (< 1 month) Serious lung disease, including pneumonia (< 1 month) Abnormal pulmonary function Acute myocardial infarction Congestive heart failure (< 1 month) History of inflammatory bowel disease Medical patient at bed rest Age 61-74 Arthroscopic surgery Major open surgery (> 45 min) Laparoscopic surgery (> 45 min) Malignancy Confined to bed (> 72 hours) Immobilizing plaster cast Central venous access Age >= 75 History of VTE Family history of VTE Factor V Leiden Prothrombin [id number] Lupus anticoagulant Anticardiolipin antibodies Elevated serum homocysteine Heparin-induced thrombocytopenia Other congenital or acquired thrombophilia Stroke (< 1 month) Elective arthroplasty Hip, pelvis, or leg fracture Acute spinal cord injury (< 1 month) Prophylaxis Regimen: Total Risk Factor Score Risk Level Prophylaxis Regimen 0-1 Low Early ambulation 2 Moderate Order ONE of the following: *Sequential Compression Device (SCD) *Heparin 5000 units SQ BID 3-4 Higher Order ONE of the following medications: *Heparin 5000 units SQ TID *Enoxaparin/Lovenox 40 mg SQ daily (WT < 150 kg, CrCl > 30 mL/min) *Enoxaparin/Lovenox 30 mg SQ daily (WT < 150 kg, CrCl > 10-29 mL/min) *Enoxaparin/Lovenox 30 mg SQ BID (WT < 150 kg, CrCl > 30 mL/min) AND/OR *Sequential Compression Device (SCD) 5 or more Highest Order ONE of the following medications: *Heparin 5000 units SQ TID (Preferred with Epidurals) *Enoxaparin/Lovenox 40 mg SQ daily (WT < 150 kg, CrCl > 30 mL/min) *Enoxaparin/Lovenox 30 mg SQ daily (WT < 150 kg, CrCl > 10-29 mL/min) *Enoxaparin/Lovenox 30 mg SQ BID (WT < 150 kg, CrCl > 30 mL/min) AND *Sequential Compression Device (SCD) Assessment and Plan - Assessment and Plan Plan: Hyperglycemic hyperosmolar syndrome -Insulin drip -Aggressive IV fluid hydration -Frequent labs Altered mental status -Due to above -Neuro checks per unit protocol -CT head negative -Supportive care Non-STEMI -Heparin drip -Cardiology consultation -Aspirin, statins -Beta-you Hypertension -Atenolol -Losartan -Lisinopril Acute kidney injury -Aggressive IV fluid hydration -Strict I's and O's -Avoid nephrotoxins -Monitor electrolytes and creatinine levels UTI -Rocephin -Follow-up cultures and de-escalate DVT GI prophylaxis -Teds SCDs -Heparin drip -IV Pepcid Critical Care: The total critical care time was 35 minutes. Time to perform other separately billable procedures was not included in the critical care time.
[2018-06-01] MEDS ORDERED: Vancomycin Inj 1,000 MG in Sodium Chlor 0.9% Inj 250 ML IV.SIG ONE (21:50)
--- NOTE | 2018-06-01 21:57 | CT ---
EXAM DATE: 06/01/2018 9:43 PM EDT AGE/SEX: 72 years / Male INDICATIONS: Altered mental status. CLINICAL DATA: This is the patient's initial encounter. Patient reports that signs and symptoms have been present for 1 day and indicates a pain score of 0/10. MEDICAL/SURGICAL HISTORY: Diabetes. None. RADIATION DOSE: 44.95 CTDI (mGy) COMPARISON: No prior exams available for comparison. TECHNIQUE: CT of the head without contrast. Using automated exposure control and adjustment of the mA and/or kV according to patient size, radiation dose was kept as low as reasonably achievable to ob tain optimal diagnostic quality images. DICOM format image data is available electronically for revi ew and comparison. FINDINGS: I don't have a pertinent priors. There is some encephalomalacia in the left frontal lobe typical of o ld trauma or old infarct. No perceptible acute ischemic changes are demonstrated. No intracranial hemorrhage or hematoma. No mass, mass effect or midline shift demonstrated. Intact skull. CONCLUSION: 1. No acute intracranial abnormality is demonstrated. 2. 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 . Electronically signed by: Xander Garcia MD 06/01/2018 9:56 PM EDT
[2018-06-01] MEDS: Sod Chloride 0.9% Inj 1,000 ML IV.CONT SCH (22:58)
[2018-06-01] MEDS ORDERED: Insulin Regular (For Infusion) 100 UNIT in Sodium Chlor 0.9% Inj 99 ML IV.CONT PRN (22:59)
[2018-06-01] MEDS ORDERED: Dextrose 50% in Water 50 ML Vial IV.PUSH PRN (22:59)
[2018-06-01] MEDS ORDERED: Sod Chloride 0.9% Inj 2,000 ML IV.SIG ONE (23:01)
[2018-06-01] MEDS: Senna/Docusate Sodium 8.6/50 MG Tablet PO SCH (23:30)
[2018-06-01] MEDS: Zolpidem Tartrate 5 MG Tablet PO SCH (23:30)
[2018-06-02] MEDS ORDERED: Heparin 10,000 UNITS/10 ML Vial (for IV use) IV.PUSH STA (01:49)
[2018-06-02] MEDS ORDERED: Potassium Phosphate 500 MG Soluble Tablet PO PRN ×2 (02:03)
[2018-06-02] MEDS ORDERED: Magnesium Oxide 400 MG Tablet PO PRN (02:03)
[2018-06-02] MEDS ORDERED: Potassium Phosphate Inj 30 MMOL in Sodium Chlor 0.9% Inj 250 ML IV.SIG PRN (02:03)
[2018-06-02] MEDS ORDERED: Potassium Chlor 40 mEq Premix 40 MEQ/100 ML PIGGYBACK IV.SIG PRN ×2 (02:03)
[2018-06-02] MEDS ORDERED: Sodium Phosphate Inj 30 MMOL in Sodium Chlor 0.9% Inj 250 ML IV.SIG PRN (02:03)
[2018-06-02] MEDS ORDERED: Magnesium Sulfate Inj 2 GM in Sodium Chlor 0.9% Inj 96 ML IV.SIG PRN (02:03)
[2018-06-02] MEDS ORDERED: Magnesium Sulfate Inj 4 GM in Sodium Chlor 0.9% Inj 92 ML IV.SIG PRN (02:03)
[2018-06-02] MEDS ORDERED: Potassium Chlor 20 mEq Premix 20 MEQ/100 ML PIGGYBACK IV.SIG PRN ×2 (02:03)
[2018-06-02] MEDS ORDERED: Potassium Chloride 25 MEQ Effervescent Tablet PO PRN (02:03)
[2018-06-02] MEDS: Heparin Drip 25,000 UNIT/250 ML BAG IV.CONT PRN (03:01)
[2018-06-02] MEDS ORDERED: Chlorhexidine Gluconate 2% 1 Pack (2 Cloths) TOPICAL PRN (04:00)
[2018-06-02 05:09] LABS: Activated Partial Thrombo Time 24.7 sec (24.3-30.1); INR 1.1 Ratio; Prothrombin Time 11.1 sec (9.8-11.6)
[2018-06-02 05:13] LABS: Baso # (Auto) 0.1 th/mm3 (0.0-0.2); Baso % (Auto) 0.3 % (0.0-2.0); Hematocrit 43.3 % (39.0-51.0); Hemoglobin 13.8 gm/dL (13.0-17.0); Lymph # (Auto) 1.6 th/mm3 (1.0-4.8); Lymph % (Auto) 8.5 % (9.0-44.0); Mean Corpuscular HGB Conc 31.8 % (32.0-36.0); Mean Corpuscular Hemoglobin 27.6 pg (27.0-34.0); Mean Corpuscular Volume 86.8 fL (80.0-100.0); Mean Platelet Volume 9.2 fL (7.0-11.0); Mono # (Auto) 0.7 th/mm3 (0.0-0.9); Mono % (Auto) 3.7 % (0.0-8.0); Neut # (Auto) 16.3 th/mm3 (1.8-7.7); Neut % (Auto) 87.5 % (16.0-70.0); Platelet Count 235 th/mm3 (150-450); Red Blood Count 4.99 mil/mm3 (4.50-5.90); Red Cell Distribution Width 14.5 % (11.6-17.2); White Blood Count 18.6 th/mm3 (4.0-11.0)
[2018-06-02 05:29] LABS: Alanine Aminotransferase 52 U/L (12-78); Albumin 2.6 g/dL (3.4-5.0); Alkaline Phosphatase 94 U/L (45-117); Anion Gap 14 meq/L (5-15); Aspartate Aminotransferase 289 U/L (15-37); Blood Urea Nitrogen 57 mg/dL (7-18); Calcium 8.5 mg/dL (8.5-10.1); Carbon Dioxide 18.6 meq/L (21.0-32.0); Chloride 106 meq/L (98-107); Glomerular Filtration Rate 22 mL/min (>89); Glucose,Random 429 mg/dL (74-106); Magnesium 1.9 mg/dL (1.5-2.5); Phosphorus 3.7 mg/dL (2.5-4.9); Potassium 3.9 meq/L (3.5-5.1); Sodium 139 meq/L (136-145); Total Protein 8.7 g/dL (6.4-8.2)
[2018-06-02] MEDS: Famotidine PF Inj 20 MG/2 ML Vial IV.PUSH SCH ×3 (07:51→21:40)
[2018-06-02] MEDS: Gabapentin 300 MG Capsule PO SCH ×4 (07:51→18:14)
[2018-06-02] MEDS: Chlorhexidine Gluconate 2% 1 Pack (2 Cloths) TOPICAL SCH (07:52)
[2018-06-02] MEDS: Sod Chloride 0.9% Inj 1,000 ML IV.CONT SCH ×2 (07:54→18:51)
[2018-06-02 08:41] LABS: Hematocrit 40.8 % (39.0-51.0); Hemoglobin 13.6 gm/dL (13.0-17.0); Mean Corpuscular HGB Conc 33.4 % (32.0-36.0); Mean Corpuscular Hemoglobin 27.9 pg (27.0-34.0); Mean Corpuscular Volume 83.6 fL (80.0-100.0); Mean Platelet Volume 9.2 fL (7.0-11.0); Platelet Count 257 th/mm3 (150-450); Red Blood Count 4.88 mil/mm3 (4.50-5.90); Red Cell Distribution Width 14.7 % (11.6-17.2)
[2018-06-02] MEDS ORDERED: VALSARTAN 160 MG PO SCH (09:00)
[2018-06-02] MEDS ORDERED: Nitrofurantoin Monohydrate-Macrocrystal 100 MG Capsule PO SCH (09:00)
[2018-06-02] MEDS ORDERED: Atenolol 25 MG Tablet PO SCH (09:00)
[2018-06-02] MEDS ORDERED: Lisinopril 5 MG Tablet PO SCH (09:00)
[2018-06-02] MEDS: Aspirin 325 MG Tablet PO SCH (09:03)
[2018-06-02] MEDS: Senna/Docusate Sodium 8.6/50 MG Tablet PO SCH ×2 (09:04→21:39)
--- NOTE | 2018-06-02 11:06 | P.PNCC ---
Subjective Subjective Remarks/Hospital Course: 72-year-old morbidly obese male with history of diabetes, multiple medical issues, presents because a roentgenologist found him in the bathroom slumped over. Apparently he was last seen normal this morning around 10 AM, but patient is currently fairly disoriented, not able to answer many questions. EMS found his blood sugars reading high, and his blood pressures were low. His sugars in the emergency department were extremely high, his beta butyric acid is negative. His second troponin was also found to be 27. 8/8 Patient is lying in bed in no acute resp distress. On Insulin drip 5u/hr and Heparin drip. Afebrile, Awake and alert Objective Vital Signs / I&O: Vital Signs 06/01/18 18:07 06/01/18 18:09 06/01/18 18:10 Temperature 97.6 F Pulse Rate 83 Respiratory Rate 17 Blood Pressure 108/67 Pulse Oximetry 97 97 97 06/01/18 18:19 06/01/18 19:19 06/01/18 21:59 Temperature Pulse Rate 92 H 85 88 Respiratory Rate 17 17 17 Blood Pressure 118/57 L 131/82 143/81 H Pulse Oximetry 97 96 98 06/02/18 00:15 06/02/18 02:16 06/02/18 04:20 Temperature Pulse Rate 88 86 85 Respiratory Rate 18 18 18 Blood Pressure 187/77 H 180/79 H 188/86 H Pulse Oximetry 98 06/02/18 06:00 06/02/18 07:00 06/02/18 07:39 Temperature 97.7 F Pulse Rate 87 85 84 Respiratory Rate 16 22 18 Blood Pressure 144/78 H 144/78 H Pulse Oximetry 95 06/02/18 08:00 06/02/18 08:58 06/02/18 09:00 Temperature 97.4 F L Pulse Rate 83 83 84 Respiratory Rate 19 19 19 Blood Pressure 164/82 H 174/89 H Pulse Oximetry 96 97 97 06/02/18 10:00 Temperature Pulse Rate 85 Respiratory Rate 20 Blood Pressure 178/77 H Pulse Oximetry 97 Intake & Output 06/01/18 06/02/18 06/02/18 18:59 06:59 18:59 Intake Total 1100 / 1100 Output Total 3100 / 3100 100 / 100 Balance -3100 / -3100 1000 / 1000 Weight 181.437 kg 181.588 kg Intake: IV 1100 / 1100 NS Inj 1,000 ML @ 84 mls/hr IV. 1000 / 1000 CONT .[id number] [facility] Rx#:[id number] Rocephin Inj 2,000 MG In NS Inj 100 / 100 100 ML @ 200 mls/hr IV.SIG Q12H [facility] Rx#:[id number] Output: Urine Amount (Catheter) 3100 / 3100 100 / 100 Indwelling Urethral Catheter 3100 / 3100 100 / 100 Result Diagrams: 06/02/18 08:19 06/02/18 04:20 Other Results: Laboratory Results - last 12 hr 06/02/18 06/02/18 06/02/18 00:20 04:20 04:20 WBC 18.6 H RBC 4.99 Hgb 13.8 Hct 43.3 MCV 86.8 MCH 27.6 MCHC 31.8 L RDW 14.5 Plt Count 235 MPV 9.2 Neut % (Auto) 87.5 H Lymph % (Auto) 8.5 L [place] % (Auto) 3.7 Eos % (Auto) 0.0 Baso % (Auto) 0.3 Neut # (Auto) 16.3 H Lymph # (Auto) 1.6 Sandoval # (Auto) 0.7 Eos # (Auto) 0.0 Baso # (Auto) 0.1 WBC Differential . Differential Comment Auto diff final PT 11.1 INR 1.1 APTT 24.7 Sodium Potassium Chloride Carbon Dioxide Anion Gap BUN Creatinine Estimated GFR POC Glucose Random Glucose Calcium Phosphorus Magnesium Total Bilirubin AST ALT Alkaline Phosphatase Troponin I 27.60 H* Total Protein Albumin Nasal Screen MRSA (PCR) 06/02/18 06/02/18 06/02/18 04:20 04:24 05:50 WBC RBC Hgb Hct MCV MCH MCHC RDW Plt Count MPV Neut % (Auto) Lymph % (Auto) Sand[place] % (Auto) Eos % (Auto) Baso % (Auto) Neut # (Auto) Lymph # (Auto) Sandoval # (Auto) Eos # (Auto) Baso # (Auto) WBC Differential Differential Comment PT INR APTT Sodium 139 Potassium 3.9 Chloride 106 D Carbon Dioxide 18.6 L Anion Gap 14 BUN 57 H Creatinine 2.80 H Estimated GFR 22 L POC Glucose 490 H* Random Glucose 429 H D Calcium 8.5 Phosphorus 3.7 Magnesium 1.9 Total Bilirubin 0.2 AST 289 H ALT 52 Alkaline Phosphatase 94 Troponin I Greater than 40.00 H* Total Protein 8.7 H Albumin 2.6 L Nasal Screen MRSA (PCR) Cancelled 06/02/18 06/02/18 06/02/18 06:04 07:22 08:16 WBC RBC Hgb Hct MCV MCH MCHC RDW Plt Count MPV Neut % (Auto) Lymph % (Auto) [place] % (Auto) Eos % (Auto) Baso % (Auto) Neut # (Auto) Lymph # (Auto) Sand[place] # (Auto) Eos # (Auto) Baso # (Auto) WBC Differential Differential Comment PT INR APTT Sodium Potassium Chloride Carbon Dioxide Anion Gap BUN Creatinine Estimated GFR POC Glucose 381 H 237 H 194 H Random Glucose Calcium Phosphorus Magnesium Total Bilirubin AST ALT Alkaline Phosphatase Troponin I Total Protein Albumin Nasal Screen MRSA (PCR) 06/02/18 06/02/18 06/02/18 08:19 08:19 08:56 WBC 20.0 H RBC 4.88 Hgb 13.6 Hct 40.8 MCV 83.6 MCH 27.9 MCHC 33.4 RDW 14.7 Plt Count 257 MPV 9.2 Neut % (Auto) Lymph % (Auto) [place] % (Auto) Eos % (Auto) Baso % (Auto) Neut # (Auto) Lymph # (Auto) [place] # (Auto) Eos # (Auto) Baso # (Auto) WBC Differential Differential Comment PT INR APTT 26.3 Sodium Potassium Chloride Carbon Dioxide Anion Gap BUN Creatinine Estimated GFR POC Glucose 196 H Random Glucose Calcium Phosphorus Magnesium Total Bilirubin AST ALT Alkaline Phosphatase Troponin I Total Protein Albumin Nasal Screen MRSA (PCR) 06/02/18 10:04 WBC RBC Hgb Hct MCV MCH MCHC RDW Plt Count MPV Neut % (Auto) Lymph % (Auto) [place] % (Auto) Eos % (Auto) Baso % (Auto) Neut # (Auto) Lymph # (Auto) [place] # (Auto) Eos # (Auto) Baso # (Auto) WBC Differential Differential Comment PT INR APTT Sodium Potassium Chloride Carbon Dioxide Anion Gap BUN Creatinine Estimated GFR POC Glucose 191 H Random Glucose Calcium Phosphorus Magnesium Total Bilirubin AST ALT Alkaline Phosphatase Troponin I Total Protein Albumin Nasal Screen MRSA (PCR) Imaging: Chest X-Ray 06/01/18 18:07 CONCLUSION: Mild left base consolidation. Head CT 06/01/18 18:07 CONCLUSION: 1. No acute intracranial abnormality is demonstrated. 2. 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 . Objective Remarks: GENERAL: Patient is 72 yo lying in bed in NAD SKIN: Warm and dry. HEAD: Normocephalic. EYES: No scleral icterus. No injection or drainage. NECK: Supple, trachea midline. No JVD or lymphadenopathy. CARDIOVASCULAR: Regular rate and rhythm without murmurs, gallops, or rubs. RESPIRATORY: Breath sounds equal bilaterally. No accessory muscle use. GASTROINTESTINAL: Abdomen soft, non-tender, nondistended. MUSCULOSKELETAL: No cyanosis, or edema. Neuro: Awake and alert Assessment and Plan - Assessment and Plan Plan: 1)Resp Insuff 2)Hyperglycemic hyperosmolar syndrome 3)AMS- improved 4)Non-STEMI 5)Hypertension 6)Acute kidney injury 7)UTI 8)Morbid obesity 9)Leukocytosis 10)Elevated AST 11)Lactic acidemia Plan Neuro: Awake and alert. Monitor neuro status and avoid any sedatives CT brain: No acute findings, UDS: Negative. Follow up on EEG results Pulm; Continue with oxygen keep sats >92% Bronchodilators, CXR: Mild left base consolidation CV: Monitor HR and BP keep MAP>65mmHg Monitor Trop, continue with Heparin drip. Cards consulted- Dr. Borjas, For 2D echo Continue ASA 325mg daily, Lipitor. D/c Lisinopril given ARF Change Tenormin to Lopressor 50mg BID, add Hydralazine 50mg Q8, Clonidine/ Lopressor IV PRN Serial lactic acid monitoring till clear : Monitor renal function, I/O's, avoid nephrotoxins Continue with IVF NS@100ml/hr Check renal US GI: Monitor LFT's, Check US liver, On Pepcid for GI prophylaxis ID: Change abx to Aztreonam, continue Vanco, d/c Rocephin monitor for signs of infections ( Fever, WBC) Follow up on urine, check sputum cx 06/01: blood cxs- [facility] 10/29 bottles, check BC x sets today Heme: Monitor CBC, coags- patient is on Heparin drip Endo: On Insulin drip DVT GI prophylaxis -Teds SCDs -Heparin drip -IV Pepcid
[2018-06-02] MEDS: Metoprolol Tartrate 50 MG Tablet PO SCH ×2 (12:15→21:40)
[2018-06-02 12:38] LABS: ABG Base Excess -7.4 mmol/L (-2-2); ABG PCO2 34 mmHg (38-42); ABG PO2 85 mmHG (61-120)
[2018-06-02] MEDS ORDERED: Metoprolol Inj 5 MG/5 ML Vial IV.PUSH PRN (13:25)
[2018-06-02 13:31] LABS: Baso % (Auto) 0.2 % (0.0-2.0); Eos % (Auto) 0.1 % (0.0-4.0); Hematocrit 38.9 % (39.0-51.0); Hemoglobin 12.6 gm/dL (13.0-17.0); Lymph # (Auto) 1.8 th/mm3 (1.0-4.8); Lymph % (Auto) 10.4 % (9.0-44.0); Mean Corpuscular HGB Conc 32.4 % (32.0-36.0); Mean Corpuscular Hemoglobin 27.8 pg (27.0-34.0); Mean Corpuscular Volume 85.6 fL (80.0-100.0); Mean Platelet Volume 9.1 fL (7.0-11.0); Mono # (Auto) 0.7 th/mm3 (0.0-0.9); Mono % (Auto) 4.3 % (0.0-8.0); Neut # (Auto) 14.4 th/mm3 (1.8-7.7); Platelet Count 222 th/mm3 (150-450); Red Blood Count 4.54 mil/mm3 (4.50-5.90); Red Cell Distribution Width 14.5 % (11.6-17.2)
[2018-06-02] MEDS ORDERED: Vancomycin Consult Pharmacy 1 EACH OTHER SCH (14:00)
[2018-06-02 14:10] LABS: Alanine Aminotransferase 61 U/L (12-78); Albumin 2.5 g/dL (3.4-5.0); Anion Gap 11 meq/L (5-15); Aspartate Aminotransferase 322 U/L (15-37); Blood Urea Nitrogen 55 mg/dL (7-18); Calcium 8.1 mg/dL (8.5-10.1); Carbon Dioxide 19.9 meq/L (21.0-32.0); Chloride 112 meq/L (98-107); Glomerular Filtration Rate 27 mL/min (>89); Glucose,Random 170 mg/dL (74-106); Potassium 3.7 meq/L (3.5-5.1); Sodium 143 meq/L (136-145)
[2018-06-02 15:05] LABS: Alkaline Phosphatase 85 U/L (45-117); Creatine Kinase 13075 U/L (39-308); Total Protein 8.1 g/dL (6.4-8.2)
[2018-06-02] MEDS ORDERED: Dextrose 50% in Water 50 ML Vial IV.PUSH PRN (15:15)
[2018-06-02 15:42] LABS: CKMB Percent 1.1 % (0.0-4.0); Creatine Kinase MB 138.4 ng/mL (0.5-3.6)
[2018-06-02] MEDS ORDERED: Vancomycin Inj 1,500 MG in Sodium Chlor 0.9% Inj 500 ML IV.SIG ONE (16:00)
[2018-06-02] MEDS: Heparin 10,000 UNITS/10 ML Vial (for IV use) IV.PUSH PRN (16:00)
--- NOTE | 2018-06-02 16:26 | P.CONCA ---
<Jena Silverio N - Last Filed: 06/02/18 15:45> History of Present Illness Service: Cardiology Consult date: 06/02/18 Requesting Physician: Westley Hinojosa Reason for Consult: Elevated troponins Primary Care Provider: UNKNOWN Family Provider: BALA BOYER History of Present Illness: This is a 72-year-old morbidly obese male with a history of diabetes hypertension, high cholesterol, neuropathy, gastroesophageal reflux disease. This information was obtained via the medical record due to patient's current mental status. The patient was found by his forest resource specialist in the bathroom slumped over unknown downtime, last see normal at 10 AM on June 01, 2018. Patient is currently disoriented and unable to answer questions. Major renal dysfunction is noted per lab work. Patient does open eyes when spoken to. Review of Systems General: Patient denies fevers, chills, and recent travel. HEENT: Patient denies headache, sore throat, difficulty swallowing. Cardiovascular: Patient denies chest pain, dizziness. Denies sensation of heart beating rapidly or irregularly. No syncope. Respiratory: Denies shortness of breath or inspirational chest discomfort. Denies coughing wheezing or hemoptysis. GI: Patient denies nausea, vomiting, diarrhea, abdominal pain, bloody stools. [facility] - History History Provided By: Network Applications Specialist / EMT - Medical History Medical History: Medical History (Last Reviewed 06/02/18 @ 10:49 by Scotty Handley) Depression Diabetes Diabetes GERD (gastroesophageal reflux disease) HTN (hypertension) High cholesterol Neuropathy - Tobacco History Second Hand Smoke Exposure: No Tobacco Use In Past 30 Days: No Smoking Status: Former smoker - Alcohol History How Often Do You Have a Drink Containing Alcohol: Never - Substance Use History Substance History: No History of Abuse - Travel History Recent Travel in the [place] Within the Last 8 Weeks: No Recent Travel Out of the Country Within the Last 8 Weeks: No - Immunization History Tetanus Immunization: Unsure Hx Influenza Vaccine This Season: No Medications and Allergies Allergies Allergy/AdvReac Type Severity Reaction Status Date / Time No Allergy Information Allergy Verified 06/01/18 18:09 Available Home Medications Medication Instructions Recorded Confirmed Type aspirin 325 mg PO DAILY 06/01/18 06/01/18 History atenolol 25 mg PO DAILY 06/01/18 06/01/18 History atorvastatin [Lipitor] 20 mg PO HS 06/01/18 06/01/18 History butenafine [Mentax] 1 applic TOPICAL DIRECTED 06/01/18 06/01/18 History duloxetine [Cymbalta] 30 mg PO DAILY 06/01/18 06/01/18 History dutasteride [Avodart] 0.5 mg PO QPM 06/01/18 06/01/18 History gabapentin 300 mg PO Q6HR 06/01/18 06/01/18 History insulin NPH and regular human 50 unit SUB-Q QPM 06/01/18 06/01/18 History [Novolin 70/30 U-100 Insulin] insulin NPH and regular human 75 unit SUB-Q QAM 06/01/18 06/01/18 History [Novolin 70/30 U-100 Insulin] lisinopril 5 mg PO DAILY 06/01/18 06/01/18 History nitrofurantoin monohyd/m-cryst 100 mg PO 3XW 06/01/18 06/01/18 History [Macrobid] pantoprazole [Protonix] 40 mg PO DAILY 06/01/18 06/01/18 History tamsulosin [Flomax] 0.4 mg PO BID 06/01/18 06/01/18 History valsartan [Diovan] 160 mg PO DAILY 06/01/18 06/01/18 History zolpidem [Ambien] 10 mg PO HS 06/01/18 06/01/18 History Active Medications: Active Medications Acetaminophen (Tylenol) 650 mg PO Q6H PRN PRN Reason: PAIN 1-10 AND/OR FEVER >101F Albuterol (Duoneb Neb (Prn)) 1 ampul NEB Q2HR NEB PRN PRN Reason: WHEEZING Albuterol (Duoneb Neb (Filomena)) 1 ampul NEB Q4HR NEB [facility] Last Admin: 06/02/18 14:55 Dose: 1 ampul Aspirin (Aspirin) 325 mg PO DAILY [facility] Last Admin: 06/02/18 09:03 Dose: 325 mg Atorvastatin Calcium (Lipitor) 20 mg PO [facility] Last Admin: 06/01/18 23:30 Dose: Not Given Bisacodyl (Dulcolax Supp) 10 mg RECTAL DAILY PRN PRN Reason: SEVERE CONSITIPATION Chlorhexidine Gluconate (Chlorhexidine 2% Cloth) 3 pack TOPICAL DAILY@0400 [facility] Stop: 06/07/18 03:59 Last Admin: 06/02/18 07:52 Dose: Not Given Chlorhexidine Gluconate (Chlorhexidine 2% Cloth) 3 pack TOPICAL DAILY@0400 PRN PRN Reason: Extra cloth needed Stop: 06/07/18 03:59 Clonidine HCl (Catapres) 0.1 mg PO Q6H PRN PRN Reason: SYS BP GREATER THAN 160 [facility] Last Admin: 06/02/18 14:23 Dose: 0.1 mg Dextrose (D50w Vial) 50 ml IV.PUSH UNSCH PRN PRN Reason: PER HYPOGLYCEMIA PROTOCOL Dextrose (D50w Vial) 50 ml IV.PUSH UNSCH PRN PRN Reason: PER HYPOGLYCEMIA PROTOCOL Famotidine (Pepcid Pf Inj) 10 mg IV.PUSH Q12HR [facility] Last Admin: 06/02/18 09:04 Dose: 10 mg Finasteride (Proscar) 0.5 mg PO QPM [facility] Gabapentin (Neurontin) 300 mg PO Q6HR [facility] Last Admin: 06/02/18 12:15 Dose: 300 mg Glucagon (Glucagon Inj) 1 mg OTHER PRN PRN PRN Reason: for Hypoglycemia Protocol Hydralazine HCl (Apresoline) 50 mg PO TID [facility] Sodium Chloride (Ns Inj) 1,000 mls @ 125 mls/hr IV.CONT .Q8H [facility] Last Admin: 06/02/18 07:54 Dose: 84 mls/hr Heparin Sodium/Dextrose (Heparin/D5w 25,000 U/250 Ml) 25,000 unit in 250 mls @ 0 mls/hr IV.CONT TITRATE PRN; Protocol PRN Reason: Per Protocol Last Titration: 06/02/18 09:01 Dose: 1,100 units/hr, 11 mls/hr Sodium Phosphate 30 mmol/ (Sodium Chloride) 260 mls @ 42 mls/hr IV.SIG UNSCH PRN PRN Reason: For Phosphorus < 2.5 mg/dL Pharmacy Profile Note (Vancomycin Consult Pharmacy) 0 mls @ 0 mls/hr OTHER UNSCH [facility] Aztreonam 1,000 mg/ Sodium (Chloride) 100 mls @ 200 mls/hr IV.SIG Q8H [facility] Last Admin: 06/02/18 14:14 Dose: 200 mls/hr Vancomycin HCl 1,500 mg/ (Sodium Chloride) 515 mls @ 250 mls/hr IV.SIG ONCE ONE Stop: 06/02/18 17:46 Insulin Human Regular (Novolin R Correctional Sugar Inj) 0 units SQ Q4HR [facility]; Protocol Lactulose (Lactulose Liq) 30 ml PO DAILY PRN PRN Reason: SEVERE CONSITIPATION Last Admin: 06/02/18 00:54 Dose: 30 ml Metoprolol Tartrate (Lopressor) 50 mg PO BID [facility] Last Admin: 06/02/18 12:15 Dose: 50 mg Metoprolol Tartrate (Lopressor Inj) 2.5 mg IV.PUSH Q6H PRN PRN Reason: SBP>160, DBP>90 Nitrofurantoin Macrocrystals (Macrobid) 100 mg PO MoWeFr@0900 [facility] Last Admin: 06/02/18 09:03 Dose: 100 mg Ondansetron HCl (Zofran Inj) 4 mg IV.PUSH Q6H PRN PRN Reason: NAUSEA OR VOMITING Butenafine [Mentax] (1 Applic) 1 each TOPICAL UNSCH [facility] Pt Own Med: Valsartan 160mg Po Daily 1 each PO DAILY [facility] Senna/Docusate Sodium (Isabella-Colace) 1 tab PO BID [facility] Last Admin: 06/02/18 09:04 Dose: 1 tab Sennosides (Senokot) 17.2 mg PO Q12H PRN PRN Reason: Moderate Constipation Sodium Chloride (Ns Flush) 2 ml IV.FLUSH BID [facility] Last Admin: 06/02/18 09:04 Dose: 2 ml Sodium Chloride (Ns Flush) 2 ml IV.FLUSH PRN PRN PRN Reason: FLUSH AFTER USING IV ACCESS Tamsulosin HCl (Flomax) 0.4 mg PO BID [facility] Last Admin: 06/02/18 09:04 Dose: 0.4 mg Zolpidem Tartrate (Ambien) 10 mg PO [facility] Last Admin: 06/01/18 23:30 Dose: Not Given Exam Vital signs: Vital Signs 06/01/18 18:07 06/01/18 18:09 06/01/18 18:10 Temperature 97.6 F Pulse Rate 83 Respiratory Rate 17 Blood Pressure 108/67 Pulse Oximetry 97 97 97 06/01/18 18:19 06/01/18 19:19 06/01/18 21:59 Temperature Pulse Rate 92 H 85 88 Respiratory Rate 17 17 17 Blood Pressure 118/57 L 131/82 143/81 H Pulse Oximetry 97 96 98 06/02/18 00:15 06/02/18 02:16 06/02/18 04:20 Temperature Pulse Rate 88 86 85 Respiratory Rate 18 18 18 Blood Pressure 187/77 H 180/79 H 188/86 H Pulse Oximetry 98 06/02/18 06:00 06/02/18 07:00 06/02/18 07:39 Temperature 97.7 F Pulse Rate 87 85 84 Respiratory Rate 16 22 18 Blood Pressure 144/78 H 144/78 H Pulse Oximetry 95 06/02/18 08:00 06/02/18 08:58 06/02/18 09:00 Temperature 97.4 F L Pulse Rate 83 83 84 Respiratory Rate 19 19 19 Blood Pressure 164/82 H 174/89 H Pulse Oximetry 96 97 97 06/02/18 10:00 06/02/18 11:00 06/02/18 11:13 Temperature Pulse Rate 85 85 82 Respiratory Rate 20 19 18 Blood Pressure 178/77 H 191/92 H 185/88 H Pulse Oximetry 97 97 97 06/02/18 12:00 06/02/18 12:01 06/02/18 13:00 Temperature 97.7 F Pulse Rate 81 82 78 Respiratory Rate 20 19 19 Blood Pressure 159/75 H 202/93 H Pulse Oximetry 97 97 97 06/02/18 13:01 06/02/18 14:00 06/02/18 14:01 Temperature Pulse Rate 79 79 77 Respiratory Rate 19 21 21 Blood Pressure 202/93 H 168/68 H 168/68 H Pulse Oximetry 92 L 93 L 06/02/18 14:31 06/02/18 14:56 06/02/18 15:00 Temperature Pulse Rate 76 77 75 Respiratory Rate 20 18 20 Blood Pressure 146/93 H 144/67 H Pulse Oximetry 93 L 95 06/02/18 15:01 06/02/18 15:31 Temperature Pulse Rate 76 76 Respiratory Rate 20 20 Blood Pressure 144/67 H 141/57 H Pulse Oximetry 94 L 92 L Intake & Output 06/01/18 06/02/18 06/02/18 18:59 06:59 18:59 Intake Total 1100 / 1100 Output Total 3100 / 3100 355 / 355 Balance -3100 / -3100 745 / 745 Weight 181.437 kg 181.588 kg Intake: IV 1100 / 1100 NS Inj 1,000 ML @ 84 mls/hr IV. 1000 / 1000 CONT .[id number] [facility] Rx#:[id number] Rocephin Inj 2,000 MG In NS Inj 100 / 100 100 ML @ 200 mls/hr IV.SIG Q12H [facility] Rx#:[id number] Output: Urine Amount (Catheter) 3100 3100 355 / 355 Indwelling Urethral Catheter 3099 355 / 355 Narrative: GENERAL: This is a well-nourished, well-developed morbidly obese patient, in no apparent distress. Patient is pleasant. HEENT: Head is atraumatic and normocephalic. Neck is supple without lymphadenopathy and trachea is midline. No JVD or carotid bruits. CARDIOVASCULAR: Regular rate and rhythm without murmurs, gallops, or rubs. RESPIRATORY: Clear to auscultation. Breath sounds equal bilaterally. No wheezes , rales, or rhonchi. Chest wall is nontender. No use of accessory muscles. GASTROINTESTINAL: Abdomen is nontender, nondistended. Abdomen soft. No obvious pulsatile mass or bruit. No CVA tenderness. Strong femoral pulses bilaterally. Normal bowel sounds in all quadrants. MUSCULOSKELETAL: Patient is moving upper and lower extremities freely. No calf tenderness or edema, no Homans sign. Strong pulses in upper and lower extremities. NEUROLOGICAL: Patient is drowsy and mildly disoriented. No focal deficits and speech is clear. SKIN: No rash and turgor is normal. Results 06/02/18 12:47 06/02/18 12:47 Cardiac Enzymes 06/01/18 06/02/18 06/02/18 Range/Units 18:09 00:20 04:20 AST 28 289 H (15-37) U/L CK-MB (CK-2) (0.5-3.6) ng/mL Troponin I 0.08 H 27.60 H* Greater than 40.00 H* (0.02-0.05) ng/mL 06/02/18 06/02/18 Range/Units 12:47 12:47 AST 322 H (15-37) U/L CK-MB (CK-2) 138.4 H (0.5-3.6) ng/mL Troponin I Greater than 40.00 H* (0.02-0.05) ng/mL Coagulation 06/01/18 06/02/18 06/02/18 Range/Units 18:09 04:20 08:19 PT 11.1 11.1 (9.8-11.6) sec APTT 23.7 L 24.7 26.3 (24.3-30.1) sec CBC 06/01/18 06/02/18 06/02/18 Range/Units 18:09 04:20 08:19 WBC 17.3 H 18.6 H 20.0 H (4.0-11.0) th/mm3 RBC 4.53 4.99 4.88 (4.50-5.90) mil/mm3 Hgb 12.5 L 13.8 13.6 (13.0-17.0) gm/dL Hct 40.5 43.3 40.8 (39.0-51.0) % Plt Count 304 235 257 (150-450) th/mm3 Neut # (Auto) 14.3 H 16.3 H (1.8-7.7) th/mm3 Lymph # (Auto) 1.8 1.6 (1.0-4.8) th/mm3 Sumner # (Auto) 0.9 0.7 (0.0-0.9) th/mm3 Eos # (Auto) 0.0 0.0 (0.0-0.4) th/mm3 Baso # (Auto) 0.1 0.1 (0.0-0.2) th/mm3 06/02/18 Range/Units 12:47 WBC 17.0 H (4.0-11.0) th/mm3 RBC 4.54 (4.50-5.90) mil/mm3 Hgb 12.6 L (13.0-17.0) gm/dL Hct 38.9 L (39.0-51.0) % Plt Count 222 (150-450) th/mm3 Neut # (Auto) 14.4 H (1.8-7.7) th/mm3 Lymph # (Auto) 1.8 (1.0-4.8) th/mm3 [place]ner # (Auto) 0.7 (0.0-0.9) th/mm3 Eos # (Auto) 0.0 (0.0-0.4) th/mm3 Baso # (Auto) 0.0 (0.0-0.2) th/mm3 Comprehensive Metabolic Panel 06/01/18 06/02/18 06/02/18 Range/Units 18:09 04:20 12:47 Sodium 134 L 139 143 (136-145) meq/L Potassium 4.3 3.9 3.7 (3.5-5.1) meq/L Chloride 98 106 D 112 H (98-107) meq/L Carbon Dioxide 14.7 L 18.6 L 19.9 L (21.0-32.0) meq/L BUN 55 H 57 H 55 H (7-18) mg/dL Creatinine 2.96 H 2.80 H 2.35 H (0.60-1.30) mg/dL Calcium 8.9 8.5 8.1 L (8.5-10.1) mg/dL AST 28 289 H 322 H (15-37) U/L ALT 15 52 61 (12-78) U/L Alkaline Phosphatase 91 94 85 (45-117) U/L Total Protein 8.3 H 8.7 H 8.1 D (6.4-8.2) g/dL Albumin 2.5 L 2.6 L 2.5 L (3.4-5.0) g/dL Intake and Output 06/02/18 06/02/18 06/02/18 06:59 14:59 22:59 Intake Total 1100 / 1100 Output Total 3100 / 3100 355 / 355 Balance -3100 / -3100 745 / 745 Intake: IV 1100 / 1100 NS Inj 1,000 ML @ 84 mls/hr IV. 1000 / 1000 CONT .[id number] [facility] Rx#:[id number] Rocephin Inj 2,000 MG In NS Inj 100 / 100 100 ML @ 200 mls/hr IV.SIG Q12H [facility] Rx#:[id number] Output: Urine Amount (Catheter) 3100 / 3100 355 / 355 Indwelling Urethral Catheter 3100 / 3100 355 / 355 Assessment and Plan - Assessment (1) NSTEMI (non-ST elevated myocardial infarction) Code(s): I21.4 - Non-ST elevation (NSTEMI) myocardial infarction Status: Acute (2) Kidney disease Code(s): N28.9 - Disorder of kidney and ureter, unspecified Status: Acute (3) Morbid obesity Code(s): E66.01 - Morbid (severe) obesity due to excess calories Status: Acute (4) Diabetes Code(s): E11.9 - Type 2 diabetes mellitus without complications Status: Acute (5) Hypertension Code(s): I10 - Essential (primary) hypertension Status: Acute (6) Altered mental state Code(s): R41.82 - Altered mental status, unspecified Status: Acute - Plan Denies any chest pain, pressure or discomfort at this time. Mental status remains altered. Troponin levels are elevated which are significant for a non- ST elevation GA. Ordered a 2D echo to evaluate left ventricular function. The benefits of cardiac catheterization do not outweigh the risks due to patient's multiple comorbidities. Continue conservative management. Continue to monitor patient in the intensive care unit. Will follow patient during hospitalization. The patient was seen and evaluated by Dr. Borjas who participated in care, management and decision-making. <Yariel Borjas - Last Filed: 06/02/18 16:31> History of Present Illness Primary Care Provider: UNKNOWN Family Provider: BALA BOYER [facility] - Medical History Medical History: Medical History (Last Reviewed 06/02/18 @ 10:49 by Scotty Handley) Depression Diabetes Diabetes GERD (gastroesophageal reflux disease) HTN (hypertension) High cholesterol Neuropathy Medications and Allergies Active Medications: Active Medications Acetaminophen (Tylenol) 650 mg PO Q6H PRN PRN Reason: PAIN 1-10 AND/OR FEVER >101F Albuterol (Duoneb Neb (Prn)) 1 ampul NEB Q2HR NEB PRN PRN Reason: WHEEZING Albuterol (Duoneb Neb (Filomena)) 1 ampul NEB Q4HR NEB [facility] Last Admin: 06/02/18 14:55 Dose: 1 ampul Aspirin (Aspirin) 325 mg PO DAILY [facility] Last Admin: 06/02/18 09:03 Dose: 325 mg Atorvastatin Calcium (Lipitor) 20 mg PO HS [facility] Last Admin: 06/01/18 23:30 Dose: Not Given Bisacodyl (Dulcolax Supp) 10 mg RECTAL DAILY PRN PRN Reason: SEVERE CONSITIPATION Chlorhexidine Gluconate (Chlorhexidine 2% Cloth) 3 pack TOPICAL DAILY@0400 [facility] Stop: 06/07/18 03:59 Last Admin: 06/02/18 07:52 Dose: Not Given Chlorhexidine Gluconate (Chlorhexidine 2% Cloth) 3 pack TOPICAL DAILY@0400 PRN PRN Reason: Extra cloth needed Stop: 06/07/18 03:59 Clonidine HCl (Catapres) 0.1 mg PO Q6H PRN PRN Reason: SYS BP GREATER THAN 160 [facility] Last Admin: 06/02/18 14:23 Dose: 0.1 mg Dextrose (D50w Vial) 50 ml IV.PUSH UNSCH PRN PRN Reason: PER HYPOGLYCEMIA PROTOCOL Dextrose (D50w Vial) 50 ml IV.PUSH UNSCH PRN PRN Reason: PER HYPOGLYCEMIA PROTOCOL Famotidine (Pepcid Pf Inj) 10 mg IV.PUSH Q12HR [facility] Last Admin: 06/02/18 09:04 Dose: 10 mg Finasteride (Proscar) 0.5 mg PO QPM [facility] Gabapentin (Neurontin) 300 mg PO Q6HR [facility] Last Admin: 06/02/18 12:15 Dose: 300 mg Glucagon (Glucagon Inj) 1 mg OTHER PRN PRN PRN Reason: for Hypoglycemia Protocol Hydralazine HCl (Apresoline) 50 mg PO TID [facility] Sodium Chloride (Ns Inj) 1,000 mls @ 125 mls/hr IV.CONT .Q8H [facility] Last Admin: 06/02/18 07:54 Dose: 84 mls/hr Heparin Sodium/Dextrose (Heparin/D5w 25,000 U/250 Ml) 25,000 unit in 250 mls @ 0 mls/hr IV.CONT TITRATE PRN; Protocol PRN Reason: Per Protocol Last Titration: 06/02/18 09:01 Dose: 1,100 units/hr, 11 mls/hr Sodium Phosphate 30 mmol/ (Sodium Chloride) 260 mls @ 42 mls/hr IV.SIG UNSCH PRN PRN Reason: For Phosphorus < 2.5 mg/dL Pharmacy Profile Note (Vancomycin Consult Pharmacy) 0 mls @ 0 mls/hr OTHER UNSCH [facility] Aztreonam 1,000 mg/ Sodium (Chloride) 100 mls @ 200 mls/hr IV.SIG Q8H [facility] Last Infusion: 06/02/18 14:44 Dose: Infused Vancomycin HCl 1,500 mg/ (Sodium Chloride) 515 mls @ 250 mls/hr IV.SIG ONCE ONE Stop: 06/02/18 18:03 Insulin Human Regular (Novolin R Correctional Sugar Inj) 0 units SQ Q4HR [facility]; Protocol Lactulose (Lactulose Liq) 30 ml PO DAILY PRN PRN Reason: SEVERE CONSITIPATION Last Admin: 06/02/18 00:54 Dose: 30 ml Metoprolol Tartrate (Lopressor) 50 mg PO BID [facility] Last Admin: 06/02/18 12:15 Dose: 50 mg Metoprolol Tartrate (Lopressor Inj) 2.5 mg IV.PUSH Q6H PRN PRN Reason: SBP>160, DBP>90 Nitrofurantoin Macrocrystals (Macrobid) 100 mg PO MoWeFr@0900 [facility] Last Admin: 06/02/18 09:03 Dose: 100 mg Ondansetron HCl (Zofran Inj) 4 mg IV.PUSH Q6H PRN PRN Reason: NAUSEA OR VOMITING Butenafine [Mentax] (1 Applic) 1 each TOPICAL UNSCH [facility] Pt Own Med: Valsartan 160mg Po Daily 1 each PO DAILY [facility] Senna/Docusate Sodium (Isabella-Colace) 1 tab PO BID [facility] Last Admin: 06/02/18 09:04 Dose: 1 tab Sennosides (Senokot) 17.2 mg PO Q12H PRN PRN Reason: Moderate Constipation Sodium Chloride (Ns Flush) 2 ml IV.FLUSH BID [facility] Last Admin: 06/02/18 09:04 Dose: 2 ml Sodium Chloride (Ns Flush) 2 ml IV.FLUSH PRN PRN PRN Reason: FLUSH AFTER USING IV ACCESS Tamsulosin HCl (Flomax) 0.4 mg PO BID [facility] Last Admin: 06/02/18 09:04 Dose: 0.4 mg Zolpidem Tartrate (Ambien) 10 mg PO [facility] Last Admin: 06/01/18 23:30 Dose: Not Given Exam Vital signs: Vital Signs 06/01/18 18:07 06/01/18 18:09 06/01/18 18:10 Temperature 97.6 F Pulse Rate 83 Respiratory Rate 17 Blood Pressure 108/67 Pulse Oximetry 97 97 97 06/01/18 18:19 06/01/18 19:19 06/01/18 21:59 Temperature Pulse Rate 92 H 85 88 Respiratory Rate 17 17 17 Blood Pressure 118/57 L 131/82 143/81 H Pulse Oximetry 97 96 98 06/02/18 00:15 06/02/18 02:16 06/02/18 04:20 Temperature Pulse Rate 88 86 85 Respiratory Rate 18 18 18 Blood Pressure 187/77 H 180/79 H 188/86 H Pulse Oximetry 98 06/02/18 06:00 06/02/18 07:00 06/02/18 07:39 Temperature 97.7 F Pulse Rate 87 85 84 Respiratory Rate 16 22 18 Blood Pressure 144/78 H 144/78 H Pulse Oximetry 95 06/02/18 08:00 06/02/18 08:58 06/02/18 09:00 Temperature 97.4 F L Pulse Rate 83 83 84 Respiratory Rate 19 19 19 Blood Pressure 164/82 H 174/89 H Pulse Oximetry 96 97 97 06/02/18 10:00 06/02/18 11:00 06/02/18 11:13 Temperature Pulse Rate 85 85 82 Respiratory Rate 20 19 18 Blood Pressure 178/77 H 191/92 H 185/88 H Pulse Oximetry 97 97 97 06/02/18 12:00 06/02/18 12:01 06/02/18 13:00 Temperature 97.7 F Pulse Rate 81 82 78 Respiratory Rate 20 19 19 Blood Pressure 159/75 H 202/93 H Pulse Oximetry 97 97 97 06/02/18 13:01 06/02/18 14:00 06/02/18 14:01 Temperature Pulse Rate 79 79 77 Respiratory Rate 19 21 21 Blood Pressure 202/93 H 168/68 H 168/68 H Pulse Oximetry 92 L 93 L 06/02/18 14:31 06/02/18 14:56 06/02/18 15:00 Temperature Pulse Rate 76 77 75 Respiratory Rate 20 18 20 Blood Pressure 146/93 H 144/67 H Pulse Oximetry 93 L 95 06/02/18 15:01 06/02/18 15:31 Temperature Pulse Rate 76 76 Respiratory Rate 20 20 Blood Pressure 144/67 H 141/57 H Pulse Oximetry 94 L 92 L Intake & Output 06/01/18 06/02/18 06/02/18 18:59 06:59 18:59 Intake Total 1200 / 1200 Output Total 3100 / 3100 355 / 355 Balance -3100 / -3100 845 / 845 Weight 400 lb 400 lb 5.34 oz Intake: IV 1200 / 1200 NS Inj 1,000 ML @ 84 mls/hr IV. 1000 / 1000 CONT .[id number] [facility] Rx#:[id number] Azactam Inj 1,000 MG In NS Inj 100 / 100 100 ML @ 200 mls/hr IV.SIG Q8H [facility] Rx#:[id number] Rocephin Inj 2,000 MG In NS Inj 100 / 100 100 ML @ 200 mls/hr IV.SIG Q12H [facility] Rx#:[id number] Output: Urine Amount (Catheter) 3100 / 3100 355 / 355 Indwelling Urethral Catheter 3100 / 3100 355 / 355 Results 06/02/18 12:47 06/02/18 12:47 Cardiac Enzymes 06/01/18 06/02/18 06/02/18 Range/Units 18:09 00:20 04:20 AST 28 289 H (15-37) U/L CK-MB (CK-2) (0.5-3.6) ng/mL Troponin I 0.08 H 27.60 H* Greater than 40.00 H* (0.02-0.05) ng/mL 06/02/18 06/02/18 Range/Units 12:47 12:47 AST 322 H (15-37) U/L CK-MB (CK-2) 138.4 H (0.5-3.6) ng/mL Troponin I Greater than 40.00 H* (0.02-0.05) ng/mL Coagulation 06/01/18 06/02/18 06/02/18 Range/Units 18:09 04:20 08:19 PT 11.1 11.1 (9.8-11.6) sec APTT 23.7 L 24.7 26.3 (24.3-30.1) sec CBC 06/01/18 06/02/18 06/02/18 Range/Units 18:09 04:20 08:19 WBC 17.3 H 18.6 H 20.0 H (4.0-11.0) th/mm3 RBC 4.53 4.99 4.88 (4.50-5.90) mil/mm3 Hgb 12.5 L 13.8 13.6 (13.0-17.0) gm/dL Hct 40.5 43.3 40.8 (39.0-51.0) % Plt Count 304 235 257 (150-450) th/mm3 Neut # (Auto) 14.3 H 16.3 H (1.8-7.7) th/mm3 Lymph # (Auto) 1.8 1.6 (1.0-4.8) th/mm3 [place]ner # (Auto) 0.9 0.7 (0.0-0.9) th/mm3 Eos # (Auto) 0.0 0.0 (0.0-0.4) th/mm3 Baso # (Auto) 0.1 0.1 (0.0-0.2) th/mm3 06/02/18 Range/Units 12:47 WBC 17.0 H (4.0-11.0) th/mm3 RBC 4.54 (4.50-5.90) mil/mm3 Hgb 12.6 L (13.0-17.0) gm/dL Hct 38.9 L (39.0-51.0) % Plt Count 222 (150-450) th/mm3 Neut # (Auto) 14.4 H (1.8-7.7) th/mm3 Lymph # (Auto) 1.8 (1.0-4.8) th/mm3 [place] # (Auto) 0.7 (0.0-0.9) th/mm3 Eos # (Auto) 0.0 (0.0-0.4) th/mm3 Baso # (Auto) 0.0 (0.0-0.2) th/mm3 Comprehensive Metabolic Panel 06/01/18 06/02/18 06/02/18 Range/Units 18:09 04:20 12:47 Sodium 134 L 139 143 (136-145) meq/L Potassium 4.3 3.9 3.7 (3.5-5.1) meq/L Chloride 98 106 D 112 H (98-107) meq/L Carbon Dioxide 14.7 L 18.6 L 19.9 L (21.0-32.0) meq/L BUN 55 H 57 H 55 H (7-18) mg/dL Creatinine 2.96 H 2.80 H 2.35 H (0.60-1.30) mg/dL Calcium 8.9 8.5 8.1 L (8.5-10.1) mg/dL AST 28 289 H 322 H (15-37) U/L ALT 15 52 61 (12-78) U/L Alkaline Phosphatase 91 94 85 (45-117) U/L Total Protein 8.3 H 8.7 H 8.1 D (6.4-8.2) g/dL Albumin 2.5 L 2.6 L 2.5 L (3.4-5.0) g/dL Intake and Output 06/02/18 06/02/18 06/02/18 06:59 14:59 22:59 Intake Total 1200 / 1200 Output Total 3100 / 3100 355 / 355 Balance -3100 / -3100 845 / 845 Intake: IV 1200 / 1200 NS Inj 1,000 ML @ 84 mls/hr IV. 1000 / 1000 CONT .[id number] FIL[facility] Rx#:[id number] Azactam Inj 1,000 MG In NS Inj 100 / 100 100 ML @ 200 mls/hr IV.SIG Q8H [facility] Rx#:[id number] Rocephin Inj 2,000 MG In NS Inj 100 / 100 100 ML @ 200 mls/hr IV.SIG Q12H [facility] Rx#:[id number] Output: Urine Amount (Catheter) 3100 / 3100 355 / 355 Indwelling Urethral Catheter 3100 / 3100 355 / 355 Assessment and Plan - Assessment (1) NSTEMI (non-ST elevated myocardial infarction) Code(s): I21.4 - Non-ST elevation (NSTEMI) myocardial infarction Status: Acute (2) Kidney disease Code(s): N28.9 - Disorder of kidney and ureter, unspecified Status: Acute (3) Morbid obesity Code(s): E66.01 - Morbid (severe) obesity due to excess calories Status: Acute (4) Diabetes Code(s): E11.9 - Type 2 diabetes mellitus without complications Status: Acute (5) Hypertension Code(s): I10 - Essential (primary) hypertension Status: Acute (6) Altered mental state Code(s): R41.82 - Altered mental status, unspecified Status: Acute - Attending Attestation Patient seen and examined. I reviewed and agree with the evaluation and plan as presented. Cardiac enzymes c/w recent NSTEMI. The patient has multiple severe comorbidities. Continue conservative management. Overall prognosis remains guarded.
--- NOTE | 2018-06-02 16:29 | US ---
EXAM DATE: 06/02/2018 3:55 PM EDT AGE/SEX: 72 years / Male INDICATIONS: Elevated lab values. CLINICAL DATA: This is the patient's initial encounter. Patient reports that signs and symptoms have been present for 2 days and indicates a pain score of Nonresponsive. MEDICAL/SURGICAL HISTORY: Gastroesophageal reflux disease. Hypercholesterolemia. Hypertension . Depression. Diabetes. Neuropathy. None. COMPARISON: No prior exams available for comparison. MEASUREMENTS: Liver:__ 19.0 cm. Common Bile Duct:___ 6mm. Right Kidney:___12.7 x 7.2 x 7.5 cm. Left Kidney:___Not visualized. Not visualized.. Spleen:___Not visualized Not visualized.. FINDINGS: Suboptimal examination secondary to the patient's body habitus. Patient was restrained and was uncooperative as well. Liver: The liver is enlarged with increased echogenicity. There is no focal lesion or ductal dilatat ion. Portal Vein: Hepatopedal flow seen in portal vein. Common Duct: No intraluminal mass or stone visualized. Gallbladder: Demonstrates no wall thickening or pericholecystic fluid. No stones visualized. Pancreas: Not well visualized. Right Kidney: Normal in size and shape with increased echogenicity of the cortex equal to that of th e adjacent liver. There is no focal mass or hydronephrosis. Left Kidney: Not visualized or evaluated. Ascites: None Pleural Effusion: None Spleen: Not visualized or evaluated. Aorta: Not well visualized or evaluated. The proximal and mid aorta are not visualized. The distal a mikey was within normal limits.. IVC: Within normal limits Other: None. CONCLUSION: 1. Suboptimal examination. 2. Enlarged liver with apparent hepatic steatosis. No focal lesion is identified. 3. The gallbladder is at the upper limits of normal in size with no evidence of cholelithiasis or bi liary obstruction. 4. Right kidney appears increased in echogenicity which could indicate medical renal disease. There is no hydronephrosis. 5. Nonvisualization evaluation of the left kidney, pancreas and spleen. Portions of the aorta was no t well visualized as well. Electronically signed by: Alan Sen MD 06/02/2018 4:28 PM EDT
[2018-06-02] MEDS: Insulin NovoLIN Regular Correctional Sugar Inj SQ SCH ×2 (16:38→21:39)
--- NOTE | 2018-06-02 16:59 | MG ---
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 MEDICATIONS: Ceftriaxone. FINDINGS: Diffuse 5 Hz slowing is seen. Recording overall is synchronous and symmetric. I do not see any epileptiform or seizure activity. Hyperventilation is not performed. Photic stimulation is performed without significant posterior driving. IMPRESSION: Diffuse 5 Hz slowing consistent with a moderate diffuse encephalopathy. No focal abnormalities noted. No seizure activity is seen. MD LILI Palmer/OSEI , 04:44 PM , 04:49 PM
[2018-06-02] MEDS ORDERED: Heparin 10,000 UNITS/10 ML Vial (for IV use) IV.PUSH PRN (18:00)
[2018-06-02] MEDS: Finasteride 5 MG Tablet PO SCH (18:14)
[2018-06-02] MEDS: hydrALAZINE 50 MG Tablet PO SCH (18:14)
[2018-06-02] MEDS: Zolpidem Tartrate 5 MG Tablet PO SCH (21:39)
--- NOTE | 2018-06-02 22:28 | ECG ---
Date Performed: 06/01/2018 Time Performed: 20:17:09 PTAGE: 72 years EKG: Sinus rhythm WITH FIRST DEGREE AV BLOCK WITH OCCASIONAL SUPRAVENTRICULAR PREMATURE COMPLEXES MARKED LEFT AXIS DEV IATION LEFT BUNDLE BRANCH BLOCK ABNORMAL ECG NO PREVIOUS TRACING DOCTOR: Yasir Tejada Interpretating Date/Time 06/02/2018 22:25:46
--- NOTE | 2018-06-02 22:33 | ECG ---
Date Performed: 06/01/2018 Time Performed: 17:58:04 PTAGE: 72 years EKG: ATRIAL FIBRILLATION INTRAVENTRICULAR CONDUCTION DELAY INFERIOR MYOCARDIAL INFARCTION ABNORM AL ECG INTERPRETATION BASED ON A DEFAULT AGE OF 40 YEARS NO PREVIOUS TRACING DOCTOR: Yasir Tejada Interpretating Date/Time 06/02/2018 22:29:52
[2018-06-02 23:47] LABS: Albumin 2.2 g/dL (3.4-5.0); Anion Gap 10 meq/L (5-15); Aspartate Aminotransferase 288 U/L (15-37); Blood Urea Nitrogen 60 mg/dL (7-18); Carbon Dioxide 16.6 meq/L (21.0-32.0); Chloride 112 meq/L (98-107); Glomerular Filtration Rate 25 mL/min (>89); Glucose,Random 236 mg/dL (74-106); Potassium 4.2 meq/L (3.5-5.1); Sodium 139 meq/L (136-145)
[2018-06-02 23:48] LABS: Alanine Aminotransferase 60 U/L (12-78)
[2018-06-03] MEDS: Insulin NovoLIN Regular Correctional Sugar Inj SQ SCH ×6 (00:05→21:49)
[2018-06-03] MEDS: Gabapentin 300 MG Capsule PO SCH ×4 (00:05→17:47)
[2018-06-03 00:18] LABS: Alkaline Phosphatase 75 U/L (45-117); Creatine Kinase 10758 U/L (39-308); Total Protein 7.7 g/dL (6.4-8.2)
[2018-06-03 00:46] LABS: CKMB Percent 0.8 % (0.0-4.0); Creatine Kinase MB 87.4 ng/mL (0.5-3.6)
[2018-06-03] MEDS: Heparin Drip 25,000 UNIT/250 ML BAG IV.CONT PRN ×2 (01:35→22:11)
[2018-06-03] MEDS: Heparin 10,000 UNITS/10 ML Vial (for IV use) IV.PUSH PRN (01:43)
[2018-06-03] MEDS: Chlorhexidine Gluconate 2% 1 Pack (2 Cloths) TOPICAL SCH (05:22)
[2018-06-03] MEDS: Sod Chloride 0.9% Inj 1,000 ML IV.CONT SCH ×2 (05:22→17:45)
[2018-06-03 07:44] LABS: Hematocrit 38.2 % (39.0-51.0); Hemoglobin 12.5 gm/dL (13.0-17.0); Mean Corpuscular HGB Conc 32.8 % (32.0-36.0); Mean Corpuscular Hemoglobin 28.1 pg (27.0-34.0); Mean Corpuscular Volume 85.5 fL (80.0-100.0); Mean Platelet Volume 9.5 fL (7.0-11.0); Platelet Count 217 th/mm3 (150-450); Red Blood Count 4.46 mil/mm3 (4.50-5.90); Red Cell Distribution Width 15.3 % (11.6-17.2); White Blood Count 16.9 th/mm3 (4.0-11.0)
[2018-06-03] MEDS: Famotidine PF Inj 20 MG/2 ML Vial IV.PUSH SCH ×2 (08:53→21:43)
[2018-06-03] MEDS ORDERED: Vancomycin Inj 1,000 MG in Sodium Chlor 0.9% Inj 250 ML IV.SIG ONE (09:00)
--- NOTE | 2018-06-03 09:20 | P.PNCC ---
Subjective Subjective Remarks/Hospital Course: 72-year-old morbidly obese male with history of diabetes, multiple medical issues, presents because a metal grader found him in the bathroom slumped over. Apparently he was last seen normal this morning around 10 AM, but patient is currently fairly disoriented, not able to answer many questions. EMS found his blood sugars reading high, and his blood pressures were low. His sugars in the emergency department were extremely high, his beta butyric acid is negative. His second troponin was also found to be 27. 06/02 Patient is lying in bed in no acute resp distress. On Insulin drip 5u/hr and Heparin drip. Afebrile, Awake and alert 06/03 Patient is lying in bed in NAD. Afebrile. Off Insulin drip. On Heparin drip. Objective Vital Signs / I&O: Vital Signs 06/02/18 10:00 06/02/18 11:00 06/02/18 11:13 Temperature Pulse Rate 85 85 82 Respiratory Rate 20 19 18 Blood Pressure 178/77 H 191/92 H 185/88 H Pulse Oximetry 97 97 97 06/02/18 12:00 06/02/18 12:01 06/02/18 13:00 Temperature 97.7 F Pulse Rate 81 82 78 Respiratory Rate 20 19 19 Blood Pressure 159/75 H 202/93 H Pulse Oximetry 97 97 97 06/02/18 13:01 06/02/18 14:00 06/02/18 14:01 Temperature Pulse Rate 79 79 77 Respiratory Rate 19 21 21 Blood Pressure 202/93 H 168/68 H 168/68 H Pulse Oximetry 92 L 93 L 06/02/18 14:31 06/02/18 14:56 06/02/18 15:00 Temperature Pulse Rate 76 77 75 Respiratory Rate 20 18 20 Blood Pressure 146/93 H 144/67 H Pulse Oximetry 93 L 95 06/02/18 15:01 06/02/18 15:31 06/02/18 16:00 Temperature 98.1 F Pulse Rate 76 76 75 Respiratory Rate 20 20 19 Blood Pressure 144/67 H 141/57 H 130/61 Pulse Oximetry 94 L 92 L 90 L 06/02/18 16:01 06/02/18 16:31 06/02/18 17:00 Temperature Pulse Rate 75 77 75 Respiratory Rate 19 17 19 Blood Pressure 130/61 137/62 139/63 Pulse Oximetry 88 L 98 99 06/02/18 17:31 06/02/18 18:00 06/02/18 18:30 Temperature Pulse Rate 76 75 74 Respiratory Rate 19 18 17 Blood Pressure 138/63 135/76 131/61 Pulse Oximetry 98 98 98 06/02/18 19:00 06/02/18 20:00 06/02/18 20:02 Temperature 97.7 F Pulse Rate 75 74 74 Respiratory Rate 19 19 18 Blood Pressure 112/71 Pulse Oximetry 97 96 97 06/02/18 21:00 06/02/18 22:00 06/02/18 23:00 Temperature 97.8 F 97.7 F 97.9 F Pulse Rate 76 77 77 Respiratory Rate 20 16 18 Blood Pressure 119/56 L 115/56 L 104/70 Pulse Oximetry 97 97 97 06/02/18 23:30 06/03/18 00:00 06/03/18 01:00 Temperature 97.8 F 97.9 F Pulse Rate 76 76 76 Respiratory Rate 18 17 18 Blood Pressure 106/53 L 107/53 L Pulse Oximetry 97 97 06/03/18 02:00 06/03/18 03:00 06/03/18 04:00 Temperature 97.6 F 97.8 F 97.7 F Pulse Rate 76 77 77 Respiratory Rate 17 16 18 Blood Pressure 94/65 L 98/69 L 100/54 L Pulse Oximetry 96 97 97 06/03/18 05:00 06/03/18 06:00 06/03/18 08:04 Temperature 97.6 F 97.7 F Pulse Rate 77 76 73 Respiratory Rate 16 15 24 Blood Pressure 95/64 L 96/55 L Pulse Oximetry 97 97 06/03/18 08:05 Temperature Pulse Rate Respiratory Rate Blood Pressure Pulse Oximetry 99 Intake & Output 06/02/18 06/03/18 06/03/18 18:59 06:59 18:59 Intake Total 2200 / 2200 1955 / 1955 Output Total 495 / 495 450 / 450 Balance 1705 / 1705 1505 / 1505 Intake: IV 2200 / 2200 1350 / 1350 Heparin/D5W 25,000 U/250 mL 25, 250 / 250 000 unit In 250 ml @ Per Protocol IV.CONT TITRATE PRN Rx #:[id number] NS Inj 1,000 ML @ 125 mls/hr IV 1999 / 1999 1000 / 1000 .CONT .Q8H SHAHEED Rx#:[id number] Azactam Inj 1,000 MG In NS Inj 100 / 100 100 / 100 100 ML @ 200 mls/hr IV.SIG Q8H SHAHEED Rx#:[id number] Rocephin Inj 2,000 MG In NS Inj 100 / 100 100 ML @ 200 mls/hr IV.SIG Q12H SHAHEED Rx#:[id number] Oral 605 / 605 Output: Urine Amount (Catheter) 495 / 495 450 / 450 Indwelling Urethral Catheter 495 / 495 450 / 450 Other: Date of Last Bowel Movement 06/02/18 06/02/18 # Bowel Movements 1 1 Result Diagrams: 06/03/18 06:52 06/03/18 10:54 Other Results: Laboratory Results - last 12 hr 06/01/18 06/02/18 06/02/18 20:17 21:33 22:53 WBC RBC Hgb Hct MCV MCH MCHC RDW Plt Count MPV APTT Sodium 139 Potassium 4.2 Chloride 112 H Carbon Dioxide 16.6 L Anion Gap 10 BUN 60 H Creatinine 2.56 H Estimated GFR 25 L POC Glucose 231 H Random Glucose 236 H Calcium 8.0 L Total Bilirubin 0.2 AST 288 H ALT 60 Alkaline Phosphatase 75 Total Creatine Kinase 24240 H CK-MB (CK-2) 87.4 H CK-MB (CK-2) % 0.8 Troponin I 28.10 H* Total Protein 7.7 Albumin 2.2 L Urine Color Yellow Urine Clarity Turbid H Urine pH 5.0 Ur Specific [place] 1.014 Urine Protein 100 H Urine Glucose (UA) 500 or greater Urine Ketones Negative Urine Occult Blood Large H Urine Nitrate Negative Urine Bilirubin Negative Urine Urobilinogen Less than 2 Ur Leukocyte Esterase Large H Urine RBC 171 H Urine WBC Urine WBC Clumps Many H Ur Squamous Epith Cells 2 Urine Bacteria Many H Micro UA Comment Culture indicated Urine Culture Comments Culture indicated Random Vancomycin 06/02/18 06/02/18 06/03/18 22:53 23:56 06:03 WBC RBC Hgb Hct MCV MCH MCHC RDW Plt Count MPV APTT 33.4 H Sodium Potassium Chloride Carbon Dioxide Anion Gap BUN Creatinine Estimated GFR POC Glucose 295 H 256 H Random Glucose Calcium Total Bilirubin AST ALT Alkaline Phosphatase Total Creatine Kinase CK-MB (CK-2) CK-MB (CK-2) % Troponin I Total Protein Albumin Urine Color Urine Clarity Urine pH Ur Specific [place] Urine Protein Urine Glucose (UA) Urine Ketones Urine Occult Blood Urine Nitrate Urine Bilirubin Urine Urobilinogen Ur Leukocyte Esterase Urine RBC Urine WBC Urine WBC Clumps Ur Squamous Epith Cells Urine Bacteria Micro UA Comment Urine Culture Comments Random Vancomycin 06/03/18 06/03/18 06/03/18 06:52 06:52 06:52 WBC 16.9 H RBC 4.46 L Hgb 12.5 L Hct 38.2 L MCV 85.5 MCH 28.1 MCHC 32.8 RDW 15.3 Plt Count 217 MPV 9.5 APTT 31.5 H Sodium Potassium Chloride Carbon Dioxide Anion Gap BUN Creatinine Estimated GFR POC Glucose Random Glucose Calcium Total Bilirubin AST ALT Alkaline Phosphatase Total Creatine Kinase CK-MB (CK-2) CK-MB (CK-2) % Troponin I Total Protein Albumin Urine Color Urine Clarity Urine pH Ur Specific [place] Urine Protein Urine Glucose (UA) Urine Ketones Urine Occult Blood Urine Nitrate Urine Bilirubin Urine Urobilinogen Ur Leukocyte Esterase Urine RBC Urine WBC Urine WBC Clumps Ur Squamous Epith Cells Urine Bacteria Micro UA Comment Urine Culture Comments Random Vancomycin 15.6 06/03/18 08:50 WBC RBC Hgb Hct MCV MCH MCHC RDW Plt Count MPV APTT Sodium Potassium Chloride Carbon Dioxide Anion Gap BUN Creatinine Estimated GFR POC Glucose 253 H Random Glucose Calcium Total Bilirubin AST ALT Alkaline Phosphatase Total Creatine Kinase CK-MB (CK-2) CK-MB (CK-2) % Troponin I Total Protein Albumin Urine Color Urine Clarity Urine pH Ur Specific [place] Urine Protein Urine Glucose (UA) Urine Ketones Urine Occult Blood Urine Nitrate Urine Bilirubin Urine Urobilinogen Ur Leukocyte Esterase Urine RBC Urine WBC Urine WBC Clumps Ur Squamous Epith Cells Urine Bacteria Micro UA Comment Urine Culture Comments Random Vancomycin Imaging: Chest X-Ray 06/01/18 18:07 CONCLUSION: Mild left base consolidation. Head CT 06/01/18 18:07 CONCLUSION: 1. No acute intracranial abnormality is demonstrated. 2. 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 . Abdomen Ultrasound 06/02/18 00:00 CONCLUSION: 1. Suboptimal examination. 2. Enlarged liver with apparent hepatic steatosis. No focal lesion is identified. 3. The gallbladder is at the upper limits of normal in size with no evidence of cholelithiasis or biliary obstruction. 4. Right kidney appears increased in echogenicity which could indicate medical renal disease. There is no hydronephrosis. 5. Nonvisualization evaluation of the left kidney, pancreas and spleen. Portions of the aorta was not well visualized as well. Objective Remarks: GENERAL: Patient is 72 yo lying in bed in NAD SKIN: Warm and dry. HEAD: Normocephalic. EYES: No scleral icterus. No injection or drainage. NECK: Supple, trachea midline. No JVD or lymphadenopathy. CARDIOVASCULAR: Regular rate and rhythm without murmurs, gallops, or rubs. RESPIRATORY: Breath sounds equal bilaterally. No accessory muscle use. GASTROINTESTINAL: Abdomen soft, non-tender, nondistended. MUSCULOSKELETAL: No cyanosis, or edema. Neuro: Awake and alert Assessment and Plan - Assessment and Plan Plan: 1)Resp Insuff 2)Hyperglycemic hyperosmolar syndrome 3)AMS- improved 4)Non-STEMI 5)Hypertension 6)Acute kidney injury 7)UTI 8)Morbid obesity 9)Leukocytosis 10)Elevated AST 11)Lactic acidemia 12)Rhabdo Plan Neuro: Awake and alert. Monitor neuro status and avoid any sedatives CT brain: No acute findings, UDS: Negative. EEG showed diffuse encephalopathy, no seizure activity Pulm; Continue with oxygen keep sats >92% Bronchodilators, CXR: Mild left base consolidation check ABG CV: Monitor HR and BP keep MAP>65mmHg Monitor Trop, continue with Heparin drip. Cards is following Dr. Borjas, For 2D echo Continue ASA 325mg daily, Lipitor. Lopressor 50mg BID, Hydralazine 50mg Q8, Clonidine/Lopressor IV PRN lactic acid cleared 1.7 from 5.2 : Monitor renal function, I/O's, avoid nephrotoxins Change IVF to SW+2amps bicarb @125ml/hr- monitor CK's Renal US: No hydronephrosis on right, left kidney not visualized. Suboptimal exam. Renal eval, give Sodium bicarb 1amp x1, check urine sodium GI: Monitor LFT's, US liver:.Suboptimal examination. Enlarged liver with apparent hepatic steatosis. No focal lesion is identified. Gallbladder is at the upper limits of normal in size with no evidence of cholelithiasis or biliary obstruction. On Pepcid for GI prophylaxis ID: Continue Aztreonam, Vanco, monitor for signs of infections ( Fever, WBC) Urine cx: Group D Enterococcus 06/01 Blood culture: GPC, [place] negative staph 11/29 bottles 06/02 BC: NGTD Heme: Monitor CBC, coags- patient is on Heparin drip Endo: SSI with accuchecks, Levemir 5u BID DVT GI prophylaxis -Teds SCDs -Heparin drip -IV Pepcid
[2018-06-03 10:12] LABS: ABG Base Excess -8.3 mmol/L (-2-2); ABG PCO2 38 mmHg (38-42); ABG PO2 77 mmHG (61-120)
[2018-06-03] MEDS: Insulin Detemir Inj 1,000 UNIT/10 ML Vial SQ SCH ×2 (10:45→21:45)
[2018-06-03 11:44] LABS: Albumin 2.1 g/dL (3.4-5.0); Anion Gap 11 meq/L (5-15); Aspartate Aminotransferase 190 U/L (15-37); Blood Urea Nitrogen 61 mg/dL (7-18); Carbon Dioxide 17.7 meq/L (21.0-32.0); Chloride 113 meq/L (98-107); Glomerular Filtration Rate 22 mL/min (>89); Glucose,Random 232 mg/dL (74-106); Sodium 142 meq/L (136-145)
[2018-06-03] MEDS ORDERED: Sod Chloride 0.9% Inj 1,000 ML IV.SIG ONE (11:53)
[2018-06-03 12:10] LABS: Alanine Aminotransferase 54 U/L (12-78); Alkaline Phosphatase 69 U/L (45-117); Creatine Kinase 6823 U/L (39-308)
[2018-06-03] MEDS: hydrALAZINE 50 MG Tablet PO SCH ×3 (12:18→17:46)
[2018-06-03] MEDS: Aspirin 325 MG Tablet PO SCH (12:19)
[2018-06-03] MEDS: Senna/Docusate Sodium 8.6/50 MG Tablet PO SCH (12:20)
[2018-06-03] MEDS: Metoprolol Tartrate 50 MG Tablet PO SCH (12:20)
--- NOTE | 2018-06-03 12:22 | P.PNCA ---
<Jena Silverio N - Last Filed: 06/03/18 12:14> Subjective Interval history: Patient very lethargic this morning. Vital signs are stable. Patient denies any chest pain, pressure, palpitations or shortness of breath. Physical Exam Vital signs: Vital Signs 06/02/18 13:00 06/02/18 13:01 06/02/18 14:00 Temperature Pulse Rate 78 79 79 Respiratory Rate 19 19 21 Blood Pressure 202/93 H 202/93 H 168/68 H Pulse Oximetry 97 92 L 06/02/18 14:01 06/02/18 14:31 06/02/18 14:56 Temperature Pulse Rate 77 76 77 Respiratory Rate 21 20 18 Blood Pressure 168/68 H 146/93 H Pulse Oximetry 93 L 93 L 06/02/18 15:00 06/02/18 15:01 06/02/18 15:31 Temperature Pulse Rate 75 76 76 Respiratory Rate 20 20 20 Blood Pressure 144/67 H 144/67 H 141/57 H Pulse Oximetry 95 94 L 92 L 06/02/18 16:00 06/02/18 16:01 06/02/18 16:31 Temperature 98.1 F Pulse Rate 75 75 77 Respiratory Rate 19 19 17 Blood Pressure 130/61 130/61 137/62 Pulse Oximetry 90 L 88 L 98 06/02/18 17:00 06/02/18 17:31 06/02/18 18:00 Temperature Pulse Rate 75 76 75 Respiratory Rate 19 19 18 Blood Pressure 139/63 138/63 135/76 Pulse Oximetry 99 98 98 06/02/18 18:30 06/02/18 19:00 06/02/18 20:00 Temperature 97.7 F Pulse Rate 74 75 74 Respiratory Rate 17 19 19 Blood Pressure 131/61 112/71 Pulse Oximetry 98 97 96 06/02/18 20:02 06/02/18 21:00 06/02/18 22:00 Temperature 97.8 F 97.7 F Pulse Rate 74 76 77 Respiratory Rate 18 20 16 Blood Pressure 119/56 L 115/56 L Pulse Oximetry 97 97 97 06/02/18 23:00 06/02/18 23:30 06/03/18 00:00 Temperature 97.9 F 97.8 F Pulse Rate 77 76 76 Respiratory Rate 18 18 17 Blood Pressure 104/70 106/53 L Pulse Oximetry 97 97 06/03/18 01:00 06/03/18 02:00 06/03/18 03:00 Temperature 97.9 F 97.6 F 97.8 F Pulse Rate 76 76 77 Respiratory Rate 18 17 16 Blood Pressure 107/53 L 94/65 L 98/69 L Pulse Oximetry 97 96 97 06/03/18 04:00 06/03/18 05:00 06/03/18 06:00 Temperature 97.7 F 97.6 F 97.7 F Pulse Rate 77 77 76 Respiratory Rate 18 16 15 Blood Pressure 100/54 L 95/64 L 96/55 L Pulse Oximetry 97 97 97 06/03/18 08:00 06/03/18 08:04 06/03/18 08:05 Temperature Pulse Rate 74 73 Respiratory Rate 24 Blood Pressure Pulse Oximetry 99 Intake & Output 06/02/18 06/03/18 06/03/18 18:59 06:59 18:59 Intake Total 2200 / 2200 1955 / 1955 0 / 0 Output Total 495 / 495 450 / 450 Balance 1705 / 1705 1505 / 1505 0 / 0 Intake: IV 2200 / 2200 1350 / 1350 Heparin/D5W 25,000 U/250 mL 25, 250 / 250 000 unit In 250 ml @ Per Protocol IV.CONT TITRATE PRN Rx #:[id number] NS Inj 1,000 ML @ 125 mls/hr IV 2000 / 2000 1000 / 1000 .CONT .Q8H SHAHEED Rx#:[id number] Azactam Inj 1,000 MG In NS Inj 100 / 100 100 / 100 100 ML @ 200 mls/hr IV.SIG Q8H SHAHEED Rx#:[id number] Rocephin Inj 2,000 MG In NS Inj 100 / 100 100 ML @ 200 mls/hr IV.SIG Q12H SHAHEED Rx#:[id number] Oral 605 / 605 0 / 0 Output: Urine Amount (Catheter) 495 / 495 450 / 450 Indwelling Urethral Catheter 495 / 495 450 / 450 Other: Date of Last Bowel Movement 06/02/18 06/02/18 06/02/18 # Bowel Movements 1 1 Narrative: GENERAL: This is a well-nourished, morbidly obese patient, in no apparent distress. Patient very lethargic answers yes or no questions. Patient is pleasant. HEENT: Head is atraumatic and normocephalic. Neck is supple without lymphadenopathy and trachea is midline. No JVD or carotid bruits. CARDIOVASCULAR: Regular rate and rhythm without murmurs, gallops, or rubs. RESPIRATORY: Clear to auscultation. Breath sounds equal bilaterally. No wheezes , rales, or rhonchi. Chest wall is nontender. No use of accessory muscles. GASTROINTESTINAL: Abdomen is nontender, nondistended. Abdomen soft. No obvious pulsatile mass or bruit. No CVA tenderness. Strong femoral pulses bilaterally. Normal bowel sounds in all quadrants. MUSCULOSKELETAL: Patient is moving upper and lower extremities. No calf tenderness. 1+ edema bilaterally lower extremities. No Homans sign. Faint pulses in upper and lower extremities. NEUROLOGICAL: Patient is lethargic but follows commands. SKIN: No rash and turgor is normal. - Urinary Catheter Management Indwelling Urethral Catheter Cath placed during this visit: yes Reason for continuing: Hourly intake/output Insertion date: 06/01/18 Insertion time: 18:05 Assessment and Plan - Assessment (1) NSTEMI (non-ST elevated myocardial infarction) Code(s): I21.4 - Non-ST elevation (NSTEMI) myocardial infarction Status: Acute (2) Kidney disease Code(s): N28.9 - Disorder of kidney and ureter, unspecified Status: Acute (3) Morbid obesity Code(s): E66.01 - Morbid (severe) obesity due to excess calories Status: Acute (4) Diabetes Code(s): E11.9 - Type 2 diabetes mellitus without complications Status: Acute (5) Hypertension Code(s): I10 - Essential (primary) hypertension Status: Acute (6) Altered mental state Code(s): R41.82 - Altered mental status, unspecified Status: Acute - Plan Denies any chest pain, pressure or discomfort at this time. Mental status remains altered and patient is more lethargic this morning. Patient is currently being evaluated by neurology. Troponin levels are elevated which are significant for a non-ST elevation VT. Waiting for 2D echo to evaluate left ventricular function. The benefits of cardiac catheterization do not outweigh the risks due to patient's multiple comorbidities. Continue conservative management. Continue to monitor patient in the intensive care unit. Will follow patient during hospitalization. The patient was seen and evaluated by Dr. Borjas who participated in care, management and decision-making. <Yariel Borjas - Last Filed: 06/03/18 14:41> Physical Exam Vital signs: Vital Signs 06/02/18 14:56 06/02/18 15:00 06/02/18 15:01 Temperature Pulse Rate 77 75 76 Respiratory Rate 18 20 20 Blood Pressure 144/67 H 144/67 H Pulse Oximetry 95 94 L 06/02/18 15:31 06/02/18 16:00 06/02/18 16:01 Temperature 98.1 F Pulse Rate 76 75 75 Respiratory Rate 20 19 19 Blood Pressure 141/57 H 130/61 130/61 Pulse Oximetry 92 L 90 L 88 L 06/02/18 16:31 06/02/18 17:00 06/02/18 17:31 Temperature Pulse Rate 77 75 76 Respiratory Rate 17 19 19 Blood Pressure 137/62 139/63 138/63 Pulse Oximetry 98 99 98 06/02/18 18:00 06/02/18 18:30 06/02/18 19:00 Temperature Pulse Rate 75 74 75 Respiratory Rate 18 17 19 Blood Pressure 135/76 131/61 Pulse Oximetry 98 98 97 06/02/18 20:00 06/02/18 20:02 06/02/18 21:00 Temperature 97.7 F 97.8 F Pulse Rate 74 74 76 Respiratory Rate 19 18 20 Blood Pressure 112/71 119/56 L Pulse Oximetry 96 97 97 06/02/18 22:00 06/02/18 23:00 06/02/18 23:30 Temperature 97.7 F 97.9 F Pulse Rate 77 77 76 Respiratory Rate 16 18 18 Blood Pressure 115/56 L 104/70 Pulse Oximetry 97 97 06/03/18 00:00 06/03/18 01:00 06/03/18 02:00 Temperature 97.8 F 97.9 F 97.6 F Pulse Rate 76 76 76 Respiratory Rate 17 18 17 Blood Pressure 106/53 L 107/53 L 94/65 L Pulse Oximetry 97 97 96 06/03/18 03:00 06/03/18 04:00 06/03/18 05:00 Temperature 97.8 F 97.7 F 97.6 F Pulse Rate 77 77 77 Respiratory Rate 16 18 16 Blood Pressure 98/69 L 100/54 L 95/64 L Pulse Oximetry 97 97 97 06/03/18 06:00 06/03/18 08:00 06/03/18 08:04 Temperature 97.7 F Pulse Rate 76 74 73 Respiratory Rate 15 24 Blood Pressure 96/55 L Pulse Oximetry 97 06/03/18 08:05 06/03/18 12:29 Temperature Pulse Rate 74 Respiratory Rate 22 Blood Pressure Pulse Oximetry 99 Intake & Output 06/02/18 06/03/18 06/03/18 18:59 06:59 18:59 Intake Total 2200 / 2200 1955 / 1955 100 / 100 Output Total 495 / 495 450 / 450 Balance 1705 / 1705 1505 / 1505 100 / 100 Intake: IV 2200 / 2200 1350 / 1350 100 / 100 Heparin/D5W 25,000 U/250 mL 25, 250 / 250 000 unit In 250 ml @ Per Protocol IV.CONT TITRATE PRN Rx #:[id number] NS Inj 1,000 ML @ 125 mls/hr IV 2000 / 2000 1000 / 1000 .CONT .Q8H SHAHEED Rx#:[id number] Azactam Inj 1,000 MG In NS Inj 100 / 100 100 / 100 100 / 100 100 ML @ 200 mls/hr IV.SIG Q8H SHAHEED Rx#:[id number] Rocephin Inj 2,000 MG In NS Inj 100 / 100 100 ML @ 200 mls/hr IV.SIG Q12H SHAHEED Rx#:[id number] Oral 605 / 605 0 / 0 Output: Urine Amount (Catheter) 495 / 495 450 / 450 Indwelling Urethral Catheter 495 / 495 450 / 450 Other: Date of Last Bowel Movement 06/02/18 06/02/18 06/02/18 # Bowel Movements 1 1 - Urinary Catheter Management Indwelling Urethral Catheter Cath placed during this visit: no Assessment and Plan - Assessment (1) NSTEMI (non-ST elevated myocardial infarction) Code(s): I21.4 - Non-ST elevation (NSTEMI) myocardial infarction Status: Acute (2) Kidney disease Code(s): N28.9 - Disorder of kidney and ureter, unspecified Status: Acute (3) Morbid obesity Code(s): E66.01 - Morbid (severe) obesity due to excess calories Status: Acute (4) Diabetes Code(s): E11.9 - Type 2 diabetes mellitus without complications Status: Acute (5) Hypertension Code(s): I10 - Essential (primary) hypertension Status: Acute (6) Altered mental state Code(s): R41.82 - Altered mental status, unspecified Status: Acute - Attending Attestation Patient seen and examined. I reviewed and agree with the evaluation and plan as presented. Continue current program with ICU care. Check echo. Overall prognosis remains guarded.
[2018-06-03 12:43] LABS: CKMB Percent 0.8 % (0.0-4.0); Creatine Kinase MB 55.2 ng/mL (0.5-3.6)
[2018-06-03] MEDS: Sodium Bicarbonate 8.4% Inj 100 MEQ in Water for Inj, Sterile 900 ML IV.CONT SCH ×2 (12:50→21:25)
--- NOTE | 2018-06-03 14:56 | ECHRPT ---
Indication: Atherosclerotic heart disease of [place] coronary artery with unstable angina pectoris CONCLUSIONS LV size appears normal. The anterior septum is hypertrophied and contracts adequately. The posterior wall is not well seen and cannot exclude hpokinesis/akinesis. LVEF is hard to assess but suspect mildly impaired. Not visualizedPoorly visualized Not well visualized but unremarkable Not well visualized but unremarkable, The pulmonary valve is not well visualized. BP: / HR: Rhythm: Sinus MEASUREMENTS (Male / Female) Normal Values Technical Quality:Very technically difficult study 2D ECHO LV Diastolic Diameter PLAX 5.5 cm 4.2 - 5.9 / 3.9 - 5.3 cm LV Systolic Diameter PLAX 4.2 cm IVS Diastolic Thickness 1.2 cm 0.6 - 1.0 / 0.6 - 0.9 cm LVPW Diastolic Thickness 1.1 cm 0.6 - 1.0 / 0.6 - 0.9 cm LV Relative Wall Thickness 0.4 LVOT Diameter 2.1 cm M-MODE Aortic Root Diameter MM 3.2 cm LA Systolic Diameter MM 5.8 cm LA Ao Ratio MM 1.8 AV Cusp Separation MM 2.6 cm DOPPLER LVOT Peak Velocity 57.8 cm/s LVOT Peak Gradient 1.3 mmHg PV Peak Velocity 95.0 cm/s PV Peak Gradient 3.6 mmHg FINDINGS LEFT VENTRICLE LV size appears normal. The anterior septum is hypertrophied and contracts adequately. The posterior wall is not well seen and cannot exclude hpokinesis/akinesis. LVEF is hard to assess but suspect mildly impaired. RIGHT VENTRICLE Normal right ventricular size and systolic function. LEFT ATRIUM The left atrial size is normal. RIGHT ATRIUM The right atrial size is normal. ATRIAL SEPTUM Not visualized AORTA Poorly visualized MITRAL VALVE Not well visualized but unremarkable AORTIC VALVE Not well visualized but unremarkable, TRICUSPID VALVE Structurally normal tricuspid valve. No tricuspid valve stenosis or regurgitation. PULMONARY VALVE The pulmonary valve is not well visualized. VESSELS The inferior vena cava is normal in size. PERICARDIUM No pericardial effusion. Suhail Pugh MD (Electronically Signed) Final Date:03 June 2018 14:55
[2018-06-03] MEDS: Finasteride 5 MG Tablet PO SCH (17:47)
--- NOTE | 2018-06-03 18:49 | P.CONNP ---
<Genet Hernandez - Last Filed: 06/03/18 19:02> History of Present Illness Service: Nephrology Requesting Physician: Gurpreet Phelps Reason for Consult: Acute Renal Failure Primary Care Provider: UNKNOWN Family Provider: BALA BOYER History of Present Illness: This is a 72 year old male who was admitted on 06/01 after he was found to be slumped over in the bathroom. He was hyperglycemic with negative beta hydroxybutyrate, BG 700s, diagnosed with HHNK and placed on an insulin gtt. He also had significantly elevated troponin levels and started on a heparin gtt. He has been evaluated by critical care and cardiology; cardiology has not recommended a cardiac cath at this time. In addition, his creatinine was elevated at 2.9 on arrival, improved to 2.35, but has worsened now to 2.79. There are no old labs for comparison. He is lethargic on exam, moans and then falls asleep when awakened. His BGs are 250s, he is off the insulin gtt. Currently on a bicarb gtt, his ABG shows metabolic acidosis without hypoxia. We were consulted for renal management. 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 - Medical History Medical History: Medical History (Last Reviewed 06/03/18 @ 07:47 by Alan Smith) Depression Diabetes Diabetes GERD (gastroesophageal reflux disease) HTN (hypertension) High cholesterol Neuropathy - Tobacco History Second Hand Smoke Exposure: No Tobacco Use In Past 30 Days: No Smoking Status: Former smoker - Alcohol History How Often Do You Have a Drink Containing Alcohol: Never - Substance Use History Substance History: No History of Abuse - Travel History Recent Travel in the [place] Within the Last 8 Weeks: No Recent Travel Out of the Country Within the Last 8 Weeks: No - Immunization History Tetanus Immunization: Unsure Hx Influenza Vaccine This Season: No Medications and Allergies Allergies Allergy/AdvReac Type Severity Reaction Status Date / Time No Allergy Information Allergy Verified 06/01/18 18:09 Available Home Medications Medication Instructions Recorded Confirmed Type aspirin 325 mg PO DAILY 06/01/18 06/01/18 History atenolol 25 mg PO DAILY 06/01/18 06/01/18 History atorvastatin [Lipitor] 20 mg PO HS 06/01/18 06/01/18 History butenafine [Mentax] 1 applic TOPICAL DIRECTED 06/01/18 06/01/18 History duloxetine [Cymbalta] 30 mg PO DAILY 06/01/18 06/01/18 History dutasteride [Avodart] 0.5 mg PO QPM 06/01/18 06/01/18 History gabapentin 300 mg PO Q6HR 06/01/18 06/01/18 History insulin NPH and regular human 50 unit SUB-Q QPM 06/01/18 06/01/18 History [Novolin 70/30 U-100 Insulin] insulin NPH and regular human 75 unit SUB-Q QAM 06/01/18 06/01/18 History [Novolin 70/30 U-100 Insulin] lisinopril 5 mg PO DAILY 06/01/18 06/01/18 History nitrofurantoin monohyd/m-cryst 100 mg PO 3XW 06/01/18 06/01/18 History [Macrobid] pantoprazole [Protonix] 40 mg PO DAILY 06/01/18 06/01/18 History tamsulosin [Flomax] 0.4 mg PO BID 06/01/18 06/01/18 History valsartan [Diovan] 160 mg PO DAILY 06/01/18 06/01/18 History zolpidem [Ambien] 10 mg PO HS 06/01/18 06/01/18 History Active Medications: Active Medications Acetaminophen (Tylenol) 650 mg PO Q6H PRN PRN Reason: PAIN 1-10 AND/OR FEVER >101F Albuterol (Duoneb Neb (Prn)) 1 ampul NEB Q2HR NEB PRN PRN Reason: WHEEZING Albuterol (Duoneb Neb (Filomena)) 1 ampul NEB Q4HR NEB [facility] Last Admin: 06/03/18 16:39 Dose: 1 ampul Aspirin (Aspirin) 325 mg PO DAILY [facility] Last Admin: 06/03/18 12:19 Dose: Not Given Atorvastatin Calcium (Lipitor) 20 mg PO [facility] Last Admin: 06/02/18 21:39 Dose: 20 mg Bisacodyl (Dulcolax Supp) 10 mg RECTAL DAILY PRN PRN Reason: SEVERE CONSITIPATION Chlorhexidine Gluconate (Chlorhexidine 2% Cloth) 3 pack TOPICAL DAILY@0400 [facility] Stop: 06/07/18 03:59 Last Admin: 06/03/18 05:22 Dose: 3 pack Chlorhexidine Gluconate (Chlorhexidine 2% Cloth) 3 pack TOPICAL DAILY@0400 PRN PRN Reason: Extra cloth needed Stop: 06/07/18 03:59 Clonidine HCl (Catapres) 0.1 mg PO Q6H PRN PRN Reason: SYS BP GREATER THAN 160 MMHG Last Admin: 06/02/18 14:23 Dose: 0.1 mg Dextrose (D50w Vial) 50 ml IV.PUSH UNSCH PRN PRN Reason: PER HYPOGLYCEMIA PROTOCOL Dextrose (D50w Vial) 50 ml IV.PUSH UNSCH PRN PRN Reason: PER HYPOGLYCEMIA PROTOCOL Famotidine (Pepcid Pf Inj) 10 mg IV.PUSH Q12HR [facility] Last Admin: 06/03/18 08:53 Dose: 10 mg Finasteride (Proscar) 0.5 mg PO QPM [facility] Last Admin: 06/03/18 17:47 Dose: Not Given Gabapentin (Neurontin) 300 mg PO Q6HR [facility] Last Admin: 06/03/18 17:47 Dose: Not Given Glucagon (Glucagon Inj) 1 mg OTHER PRN PRN PRN Reason: for Hypoglycemia Protocol Heparin Sodium (Porcine) (Heparin Inj) 5,000 units IV.PUSH UNSCH PRN PRN Reason: aPTT < 25 Heparin Sodium (Porcine) (Heparin Inj) 2,500 units IV.PUSH UNSCH PRN PRN Reason: aPTT 25-39 Last Admin: 06/03/18 01:43 Dose: 2,500 units Hydralazine HCl (Apresoline) 50 mg PO TID [facility] Last Admin: 06/03/18 17:46 Dose: Not Given Heparin Sodium/Dextrose (Heparin/D5w 25,000 U/250 Ml) 25,000 unit in 250 mls @ 0 mls/hr IV.CONT TITRATE PRN; Protocol PRN Reason: Per Protocol Last Admin: 06/03/18 01:35 Dose: 1,200 units/hr, 12 mls/hr Sodium Phosphate 30 mmol/ (Sodium Chloride) 260 mls @ 42 mls/hr IV.SIG UNSCH PRN PRN Reason: For Phosphorus < 2.5 mg/dL Pharmacy Profile Note (Vancomycin Consult Pharmacy) 0 mls @ 0 mls/hr OTHER UNSCH [facility] Aztreonam 1,000 mg/ Sodium (Chloride) 100 mls @ 200 mls/hr IV.SIG Q8H [facility] Last Infusion: 06/03/18 14:10 Dose: Infused Sodium Bicarbonate 100 meq/ (Sterile Water) 1,000 mls @ 125 mls/hr IV.CONT .Q8H [facility] Last Admin: 06/03/18 12:50 Dose: 125 mls/hr Insulin Detemir (Levemir Inj) 5 unit SQ BID [facility] Last Admin: 06/03/18 10:45 Dose: 5 unit Insulin Human Regular (Novolin R Correctional Sugar Inj) 0 units SQ Q4HR [facility]; Protocol Last Admin: 06/03/18 16:38 Dose: 2 units Lactulose (Lactulose Liq) 30 ml PO DAILY PRN PRN Reason: SEVERE CONSITIPATION Last Admin: 06/02/18 00:54 Dose: 30 ml Metoprolol Tartrate (Lopressor) 50 mg PO BID [facility] Last Admin: 06/03/18 12:20 Dose: Not Given Metoprolol Tartrate (Lopressor Inj) 2.5 mg IV.PUSH Q6H PRN PRN Reason: SBP>160, DBP>90 Ondansetron HCl (Zofran Inj) 4 mg IV.PUSH Q6H PRN PRN Reason: NAUSEA OR VOMITING Butenafine [Mentax] (1 Applic) 1 each TOPICAL UNSCH [facility] Pt Own Med: Valsartan 160mg Po Daily 1 each PO DAILY [facility] Senna/Docusate Sodium (Isabella-Colace) 1 tab PO BID [facility] Last Admin: 06/03/18 12:20 Dose: Not Given Sennosides (Senokot) 17.2 mg PO Q12H PRN PRN Reason: Moderate Constipation Sodium Chloride (Ns Flush) 2 ml IV.FLUSH BID [facility] Last Admin: 06/03/18 08:53 Dose: 2 ml Sodium Chloride (Ns Flush) 2 ml IV.FLUSH PRN PRN PRN Reason: FLUSH AFTER USING IV ACCESS Tamsulosin HCl (Flomax) 0.4 mg PO BID [facility] Last Admin: 06/03/18 12:20 Dose: Not Given Zolpidem Tartrate (Ambien) 10 mg PO HS [facility] Last Admin: 06/02/18 21:39 Dose: 10 mg Exam Vital signs: Vital Signs 06/02/18 19:00 06/02/18 20:00 06/02/18 20:02 Temperature 97.7 F Pulse Rate 75 74 74 Respiratory Rate 19 19 18 Blood Pressure 112/71 Pulse Oximetry 97 96 97 06/02/18 21:00 06/02/18 21:01 06/02/18 21:30 Temperature 97.8 F Pulse Rate 76 77 76 Respiratory Rate 20 23 21 Blood Pressure 119/56 L 122/59 L Pulse Oximetry 97 97 97 06/02/18 22:00 06/02/18 23:00 06/02/18 23:30 Temperature 97.7 F 97.9 F Pulse Rate 77 77 76 Respiratory Rate 16 18 18 Blood Pressure 115/56 L 104/70 Pulse Oximetry 97 97 06/03/18 00:00 06/03/18 01:00 06/03/18 01:01 Temperature 97.8 F 97.9 F Pulse Rate 76 76 76 Respiratory Rate 21 23 21 Blood Pressure 106/53 L 107/53 L 107/53 L Pulse Oximetry 96 97 97 06/03/18 02:00 06/03/18 03:00 06/03/18 03:01 Temperature 97.6 F 97.8 F Pulse Rate 76 77 78 Respiratory Rate 23 24 22 Blood Pressure 94/65 L 98/69 L 98/69 L Pulse Oximetry 96 96 96 06/03/18 04:00 06/03/18 04:13 06/03/18 05:00 Temperature 97.7 F 97.6 F Pulse Rate 77 77 77 Respiratory Rate 25 H 24 23 Blood Pressure 100/54 L 100/54 L 95/64 L Pulse Oximetry 96 97 97 06/03/18 06:00 06/03/18 07:00 06/03/18 07:01 Temperature 97.7 F Pulse Rate 76 75 75 Respiratory Rate 22 23 23 Blood Pressure 96/55 L 112/52 L Pulse Oximetry 96 96 95 06/03/18 08:00 06/03/18 08:01 06/03/18 08:04 Temperature Pulse Rate 74 74 73 Respiratory Rate 23 23 24 Blood Pressure 96/48 L Pulse Oximetry 96 96 06/03/18 08:05 06/03/18 09:00 06/03/18 10:00 Temperature Pulse Rate 74 69 Respiratory Rate 20 20 Blood Pressure 97/55 L Pulse Oximetry 99 97 96 06/03/18 10:38 06/03/18 11:00 06/03/18 12:00 Temperature 98.3 F Pulse Rate 72 74 74 Respiratory Rate 19 31 H 20 Blood Pressure 88/59 L 95/53 L Pulse Oximetry 97 91 L 96 06/03/18 12:01 06/03/18 12:29 06/03/18 13:00 Temperature Pulse Rate 74 74 75 Respiratory Rate 21 22 24 Blood Pressure 113/57 L 112/54 L Pulse Oximetry 95 100 06/03/18 14:00 06/03/18 15:00 06/03/18 16:00 Temperature 98.4 F Pulse Rate 75 72 72 Respiratory Rate 17 18 24 Blood Pressure 114/53 L 109/55 L 127/60 Pulse Oximetry 100 98 99 06/03/18 16:39 06/03/18 17:00 06/03/18 18:00 Temperature Pulse Rate 66 67 72 Respiratory Rate 14 18 22 Blood Pressure 124/78 132/63 Pulse Oximetry 94 L 93 L Intake & Output 06/02/18 06/03/18 06/03/18 18:59 06:59 18:59 Intake Total 2200 / 2200 1955 / 1955 2450 / 2450 Output Total 495 / 495 450 / 450 555 / 555 Balance 1705 / 1705 1505 / 1505 1895 / 1895 Intake: IV 2200 / 2200 1350 / 1350 2450 / 2450 Heparin/D5W 25,000 U/250 mL 25, 250 / 250 000 unit In 250 ml @ Per Protocol IV.CONT TITRATE PRN Rx #:[id number] NS Inj 1,000 ML @ 125 mls/hr IV 2000 / 2000 1000 / 1000 1000 / 1000 .CONT .Q8H [facility] Rx#:[id number] Azactam Inj 1,000 MG In NS Inj 100 / 100 100 / 100 200 / 200 100 ML @ 200 mls/hr IV.SIG Q8H [facility] Rx#:[id number] NS Inj 1,000 ML @ Wide Open IV. 1000 / 1000 SIG BOLUS ONE Rx#:[id number] Vancomycin Inj 1,000 MG In NS 250 / 250 Inj 250 ML @ 250 mls/hr IV.SIG ONCE ONE Rx#:[id number] Rocephin Inj 2,000 MG In NS Inj 100 / 100 100 ML @ 200 mls/hr IV.SIG Q12H [facility] Rx#:[id number] Oral 605 / 605 0 / 0 Output: Urine Amount (Catheter) 495 / 495 450 / 450 555 / 555 Indwelling Urethral Catheter 495 / 495 450 / 450 555 / 555 Other: Date of Last Bowel Movement 06/02/18 06/02/18 06/02/18 # Bowel Movements 1 1 - Constitutional no acute distress, morbidly obese, disheveled, obtunded - Routine HEENT Exam Head: Present: normocephalic - Routine Neck Exam Present: supple, full ROM - Routine Respiratory Exam Present: CTA bilaterally, diminished air movement. Absent: accessory muscle use - Routine Cardiovascular Exam Present: RRR, S1, S2 - Routine Abdominal Exam Present: normoactive bowel sounds, surgical scars - Routine Extremities Exam Present: edema, normal capillary refill. Absent: full ROM - Routine Skin Exam Present: dry, warm - Routine Neurological Exam Present: altered mental status lethargic, sleeping - Routine Psychiatric Exam Present: unable to assess Results - Lab Results 06/03/18 06:52 06/03/18 10:54 Most recent lab results ABG pH 7.28 (7.380-7.420) L* 06/03/18 10:00 ABG pCO2 38 mmHg (38-42) 06/03/18 10:00 ABG pO2 77 mmHG (61-120) 06/03/18 10:00 ABG HCO3 17 mmol/L (22-26) L 06/03/18 10:00 Calcium 8.0 mg/dL (8.5-10.1) L 06/03/18 10:54 Phosphorus 3.7 mg/dL (2.5-4.9) 06/02/18 04:20 Magnesium 1.9 mg/dL (1.5-2.5) 06/02/18 04:20 - Image Kidney/bladder ultrasound: image reviewed Assessment and Plan - Assessment (1) JOSE (acute kidney injury) Code(s): N17.9 - Acute kidney failure, unspecified Status: Acute Plan: No baseline labs available for comparison, he may have underlying CKD. Renal failure most likely related to renal hypoperfusion secondary to hypotension and NSTEMI, may have suffered ATN Also has a UTI His urine output has dropped, borderline oliguric He has metabolic acidosis, on bicarb gtt Repeat labs daily, monitor fluid status, urine output, electrolyte profile Avoid hypotension, nephrotoxins Quantify proteinuria (2) HHNC (hyperglycemic hyperosmolar nonketotic coma) Code(s): E11.01 - Type 2 diabetes mellitus with hyperosmolarity with coma Status: Acute Plan: Off insulin gtt, on intermittent insulin doses Maintain glucose 140-180 mg/dL (3) NSTEMI (non-ST elevated myocardial infarction) Code(s): I21.4 - Non-ST elevation (NSTEMI) myocardial infarction Status: Acute Plan: On Heparin gtt, cardiology following <Mike Hinkle - Last Filed: 06/04/18 14:32> History of Present Illness Primary Care Provider: UNKNOWN Family Provider: BALA BOYER [facility] - Medical History Medical History: Medical History (Last Reviewed 06/03/18 @ 07:47 by Alan Smith) Depression Diabetes Diabetes GERD (gastroesophageal reflux disease) HTN (hypertension) High cholesterol Neuropathy Medications and Allergies Active Medications: Active Medications Acetaminophen (Tylenol) 650 mg PO Q6H PRN PRN Reason: PAIN 1-10 AND/OR FEVER >101F Albuterol (Duoneb Neb (Prn)) 1 ampul NEB Q2HR NEB PRN PRN Reason: WHEEZING Albuterol (Duoneb Neb (Filomena)) 1 ampul NEB Q4HR NEB [facility] Last Admin: 06/04/18 14:25 Dose: 1 ampul Aspirin (Aspirin) 325 mg PO DAILY [facility] Last Admin: 06/04/18 08:17 Dose: 325 mg Atorvastatin Calcium (Lipitor) 20 mg PO HS [facility] Last Admin: 06/04/18 08:29 Dose: Not Given Bisacodyl (Dulcolax Supp) 10 mg RECTAL DAILY PRN PRN Reason: SEVERE CONSITIPATION Chlorhexidine Gluconate (Chlorhexidine 2% Cloth) 3 pack TOPICAL DAILY@0400 [facility] Stop: 06/07/18 03:59 Last Admin: 06/03/18 05:22 Dose: 3 pack Chlorhexidine Gluconate (Chlorhexidine 2% Cloth) 3 pack TOPICAL DAILY@0400 PRN PRN Reason: Extra cloth needed Stop: 06/07/18 03:59 Clonidine HCl (Catapres) 0.1 mg PO Q6H PRN PRN Reason: SYS BP GREATER THAN 160 MMHG Last Admin: 06/02/18 14:23 Dose: 0.1 mg Dextrose (D50w Vial) 50 ml IV.PUSH UNSCH PRN PRN Reason: PER HYPOGLYCEMIA PROTOCOL Dextrose (D50w Vial) 50 ml IV.PUSH UNSCH PRN PRN Reason: PER HYPOGLYCEMIA PROTOCOL Famotidine (Pepcid Pf Inj) 10 mg IV.PUSH Q12HR [facility] Last Admin: 06/04/18 08:18 Dose: 10 mg Finasteride (Proscar) 0.5 mg PO QPM [facility] Last Admin: 06/03/18 17:47 Dose: Not Given Gabapentin (Neurontin) 300 mg PO Q6HR [facility] Last Admin: 06/04/18 13:36 Dose: 300 mg Glucagon (Glucagon Inj) 1 mg OTHER PRN PRN PRN Reason: for Hypoglycemia Protocol Heparin Sodium (Porcine) (Heparin Inj) 5,000 units IV.PUSH UNSCH PRN PRN Reason: aPTT < 25 Heparin Sodium (Porcine) (Heparin Inj) 2,500 units IV.PUSH UNSCH PRN PRN Reason: aPTT 25-39 Last Admin: 06/03/18 01:43 Dose: 2,500 units Hydralazine HCl (Apresoline) 50 mg PO TID [facility] Last Admin: 06/04/18 13:36 Dose: 50 mg Heparin Sodium/Dextrose (Heparin/D5w 25,000 U/250 Ml) 25,000 unit in 250 mls @ 0 mls/hr IV.CONT TITRATE PRN; Protocol PRN Reason: Per Protocol Last Admin: 06/03/18 22:11 Dose: 1,400 units/hr, 14 mls/hr Sodium Phosphate 30 mmol/ (Sodium Chloride) 260 mls @ 42 mls/hr IV.SIG UNSCH PRN PRN Reason: For Phosphorus < 2.5 mg/dL Pharmacy Profile Note (Vancomycin Consult Pharmacy) 0 mls @ 0 mls/hr OTHER UNSCH [facility] Aztreonam 1,000 mg/ Sodium (Chloride) 100 mls @ 200 mls/hr IV.SIG Q8H [facility] Last Admin: 06/04/18 13:37 Dose: 200 mls/hr Sodium Bicarbonate 100 meq/ (Sterile Water) 1,000 mls @ 100 mls/hr IV.CONT .Q10H [facility] Last Admin: 06/04/18 13:37 Dose: 125 mls/hr Vancomycin HCl 1,000 mg/ (Sodium Chloride) 250 mls @ 250 mls/hr IV.SIG ONCE ONE Stop: 06/04/18 18:59 Insulin Detemir (Levemir Inj) 5 unit SQ BID [facility] Last Admin: 06/04/18 08:22 Dose: 5 unit Insulin Human Regular (Novolin R Correctional Sugar Inj) 0 units SQ Q4HR [facility]; Protocol Last Admin: 06/04/18 13:39 Dose: 4 units Lactulose (Lactulose Liq) 30 ml PO DAILY PRN PRN Reason: SEVERE CONSITIPATION Last Admin: 06/02/18 00:54 Dose: 30 ml Metoprolol Tartrate (Lopressor) 50 mg PO BID [facility] Last Admin: 06/04/18 08:30 Dose: Not Given Metoprolol Tartrate (Lopressor Inj) 2.5 mg IV.PUSH Q6H PRN PRN Reason: SBP>160, DBP>90 Ondansetron HCl (Zofran Inj) 4 mg IV.PUSH Q6H PRN PRN Reason: NAUSEA OR VOMITING Butenafine [Mentax] (1 Applic) 1 each TOPICAL [facility] Pt Own Med: Valsartan 160mg Po Daily 1 each PO DAILY [facility] Senna/Docusate Sodium (Isabella-Colace) 1 tab PO BID [facility] Last Admin: 06/04/18 08:30 Dose: Not Given Sennosides (Senokot) 17.2 mg PO Q12H PRN PRN Reason: Moderate Constipation Sodium Chloride (Ns Flush) 2 ml IV.FLUSH BID [facility] Last Admin: 06/04/18 08:30 Dose: Not Given Sodium Chloride (Ns Flush) 2 ml IV.FLUSH PRN PRN PRN Reason: FLUSH AFTER USING IV ACCESS Tamsulosin HCl (Flomax) 0.4 mg PO BID [facility] Last Admin: 06/04/18 08:29 Dose: Not Given Zolpidem Tartrate (Ambien) 10 mg PO [facility] Last Admin: 06/04/18 08:29 Dose: Not Given Exam Vital signs: Vital Signs 06/03/18 15:00 06/03/18 16:00 06/03/18 16:39 Temperature 98.4 F Pulse Rate 72 72 66 Respiratory Rate 18 24 14 Blood Pressure 109/55 L 127/60 Pulse Oximetry 98 99 06/03/18 17:00 06/03/18 18:00 06/03/18 19:46 Temperature Pulse Rate 67 72 73 Respiratory Rate 18 22 16 Blood Pressure 124/78 132/63 Pulse Oximetry 94 L 93 L 94 L 06/03/18 20:00 06/03/18 21:00 06/03/18 22:00 Temperature 99.2 F 98.8 F Pulse Rate 75 79 72 Respiratory Rate 24 15 22 Blood Pressure 153/70 H 163/68 H 179/72 H Pulse Oximetry 95 94 L 94 L 06/03/18 23:00 06/04/18 00:00 06/04/18 00:30 Temperature 98.8 F Pulse Rate 77 78 74 Respiratory Rate 17 18 16 Blood Pressure 167/71 H 167/71 H Pulse Oximetry 95 96 06/04/18 01:00 06/04/18 02:00 06/04/18 03:00 Temperature 98.4 F Pulse Rate 81 81 81 Respiratory Rate 18 14 Blood Pressure 165/72 H 174/72 H 183/75 H Pulse Oximetry 92 L 93 L 98 06/04/18 03:33 06/04/18 04:00 06/04/18 07:00 Temperature 98.9 F Pulse Rate 79 77 80 Respiratory Rate 16 14 18 Blood Pressure 179/75 H 157/71 H Pulse Oximetry 96 99 06/04/18 08:00 06/04/18 09:00 06/04/18 10:00 Temperature 97.9 F Pulse Rate 80 77 80 Respiratory Rate 12 14 22 Blood Pressure 174/91 H 144/65 H 145/64 H Pulse Oximetry 100 100 98 06/04/18 11:00 06/04/18 14:25 Temperature Pulse Rate 81 79 Respiratory Rate 18 18 Blood Pressure Pulse Oximetry Intake & Output 06/03/18 06/04/18 06/04/18 18:59 06:59 18:59 Intake Total 2450 / 2450 2350 / 2350 1340 / 1340 Output Total 555 / 555 625 / 625 350 / 350 Balance 1895 / 1895 1725 / 1725 990 / 990 Intake: IV 2450 / 2450 2350 / 2350 1100 / 1100 Heparin/D5W 25,000 U/250 mL 25, 250 / 250 000 unit In 250 ml @ Per Protocol IV.CONT TITRATE PRN Rx #:[id number] NS Inj 1,000 ML @ 125 mls/hr IV 1000 / 1000 .CONT .Q8H [facility] Rx#:[id number] Sodium Bicarbonate 8.4% Inj 100 2000 / 2000 1000 / 1000 MEQ In Sterile Water for Inj 900 ML @ 100 mls/hr IV.CONT . Q10H [facility] Rx#:[id number] Azactam Inj 1,000 MG In NS Inj 200 / 200 100 / 100 100 / 100 100 ML @ 200 mls/hr IV.SIG Q8H [facility] Rx#:[id number] NS Inj 1,000 ML @ Wide Open IV. 1000 / 1000 SIG BOLUS ONE Rx#:[id number] Vancomycin Inj 1,000 MG In NS 250 / 250 Inj 250 ML @ 250 mls/hr IV.SIG ONCE ONE Rx#:[id number] Oral 0 / 0 240 / 240 Output: Urine 525 / 525 Urine Amount (Catheter) 555 / 555 100 / 100 350 / 350 100 100 / 100 350 / 350 Indwelling Urethral Catheter 555 / 555 Other: Date of Last Bowel Movement 06/02/18 06/02/18 06/02/18 Results - Lab Results 06/04/18 06:49 06/04/18 06:49 Most recent lab results ABG pH 7.28 (7.380-7.420) L* 06/03/18 10:00 ABG pCO2 38 mmHg (38-42) 06/03/18 10:00 ABG pO2 77 mmHG (61-120) 06/03/18 10:00 ABG HCO3 17 mmol/L (22-26) L 06/03/18 10:00 Calcium 8.2 mg/dL (8.5-10.1) L 06/04/18 06:49 Phosphorus 3.7 mg/dL (2.5-4.9) 06/02/18 04:20 Magnesium 1.9 mg/dL (1.5-2.5) 06/02/18 04:20 Assessment and Plan - Assessment (1) JOSE (acute kidney injury) Code(s): N17.9 - Acute kidney failure, unspecified Status: Acute (2) HHNC (hyperglycemic hyperosmolar nonketotic coma) Code(s): E11.01 - Type 2 diabetes mellitus with hyperosmolarity with coma Status: Acute (3) NSTEMI (non-ST elevated myocardial infarction) Code(s): I21.4 - Non-ST elevation (NSTEMI) myocardial infarction Status: Acute - Attending Attestation patient was seen and examined. Agree with above assessment and plan. Continue bicarbonate drip at this time. Monitor urine output and renal function. Avoid nephrotoxic agents.
[2018-06-04] MEDS: Insulin NovoLIN Regular Correctional Sugar Inj SQ SCH ×7 (05:00→23:58)
[2018-06-04] MEDS: Sodium Bicarbonate 8.4% Inj 100 MEQ in Water for Inj, Sterile 900 ML IV.CONT SCH ×3 (06:12→22:33)
[2018-06-04 07:50] LABS: Hematocrit 36.8 % (39.0-51.0); Hemoglobin 12.3 gm/dL (13.0-17.0); Mean Corpuscular HGB Conc 33.5 % (32.0-36.0); Mean Corpuscular Hemoglobin 28.3 pg (27.0-34.0); Mean Corpuscular Volume 84.4 fL (80.0-100.0); Platelet Count 180 th/mm3 (150-450); Red Blood Count 4.36 mil/mm3 (4.50-5.90); Red Cell Distribution Width 15.7 % (11.6-17.2); White Blood Count 12.2 th/mm3 (4.0-11.0)
[2018-06-04 08:13] LABS: Albumin 2.2 g/dL (3.4-5.0); Anion Gap 11 meq/L (5-15); Aspartate Aminotransferase 186 U/L (15-37); Blood Urea Nitrogen 54 mg/dL (7-18); Calcium 8.2 mg/dL (8.5-10.1); Carbon Dioxide 21.9 meq/L (21.0-32.0); Chloride 110 meq/L (98-107); Glomerular Filtration Rate 27 mL/min (>89); Glucose,Random 190 mg/dL (74-106); Potassium 3.5 meq/L (3.5-5.1); Sodium 143 meq/L (136-145)
[2018-06-04 08:15] LABS: Alanine Aminotransferase 63 U/L (12-78)
[2018-06-04] MEDS: Metoprolol Tartrate 50 MG Tablet PO SCH ×3 (08:16→20:41)
[2018-06-04] MEDS: Senna/Docusate Sodium 8.6/50 MG Tablet PO SCH ×3 (08:16→20:41)
[2018-06-04] MEDS: Aspirin 325 MG Tablet PO SCH (08:17)
[2018-06-04] MEDS: Famotidine PF Inj 20 MG/2 ML Vial IV.PUSH SCH ×2 (08:18→20:43)
[2018-06-04] MEDS: hydrALAZINE 50 MG Tablet PO SCH ×3 (08:18→17:00)
[2018-06-04] MEDS: Insulin Detemir Inj 1,000 UNIT/10 ML Vial SQ SCH ×2 (08:22→20:42)
--- NOTE | 2018-06-04 08:25 | P.PNCC ---
Subjective Subjective Remarks/Hospital Course: 72-year-old morbidly obese male with history of diabetes, multiple medical issues, presents because a assembler flexible leads found him in the bathroom slumped over. Apparently he was last seen normal this morning around 10 AM, but patient is currently fairly disoriented, not able to answer many questions. EMS found his blood sugars reading high, and his blood pressures were low. His sugars in the emergency department were extremely high, his beta butyric acid is negative. His second troponin was also found to be 27. 06/02 Patient is lying in bed in no acute resp distress. On Insulin drip 5u/hr and Heparin drip. Afebrile, Awake and alert 06/03 Patient is lying in bed in NAD. Afebrile. Off Insulin drip. On Heparin drip. 06/04 Patient is more awake and alert this morning. On Heparin and bicarb drips. Renal function is improving with Cr: 2.37 from 2.79. Afebrile. Objective Vital Signs / I&O: Vital Signs 06/03/18 09:00 06/03/18 10:00 06/03/18 10:38 Temperature Pulse Rate 74 69 72 Respiratory Rate 20 20 19 Blood Pressure 97/55 L 88/59 L Pulse Oximetry 97 96 97 06/03/18 11:00 06/03/18 12:00 06/03/18 12:01 Temperature 98.3 F Pulse Rate 74 74 74 Respiratory Rate 31 H 20 21 Blood Pressure 95/53 L 113/57 L Pulse Oximetry 91 L 96 95 06/03/18 12:29 06/03/18 13:00 06/03/18 14:00 Temperature Pulse Rate 74 75 75 Respiratory Rate 22 24 17 Blood Pressure 112/54 L 114/53 L Pulse Oximetry 100 100 06/03/18 15:00 06/03/18 16:00 06/03/18 16:39 Temperature 98.4 F Pulse Rate 72 72 66 Respiratory Rate 18 24 14 Blood Pressure 109/55 L 127/60 Pulse Oximetry 98 99 06/03/18 17:00 06/03/18 18:00 06/03/18 19:46 Temperature Pulse Rate 67 72 73 Respiratory Rate 18 22 16 Blood Pressure 124/78 132/63 Pulse Oximetry 94 L 93 L 94 L 06/03/18 20:00 06/03/18 21:00 06/03/18 22:00 Temperature 99.2 F 98.8 F Pulse Rate 75 79 72 Respiratory Rate 24 15 22 Blood Pressure 153/70 H 163/68 H 179/72 H Pulse Oximetry 95 94 L 94 L 06/03/18 23:00 06/04/18 00:00 06/04/18 00:30 Temperature 98.8 F Pulse Rate 77 78 74 Respiratory Rate 17 18 16 Blood Pressure 167/71 H 167/71 H Pulse Oximetry 95 96 06/04/18 01:00 06/04/18 02:00 06/04/18 03:00 Temperature 98.4 F Pulse Rate 81 81 81 Respiratory Rate 18 14 Blood Pressure 165/72 H 174/72 H 183/75 H Pulse Oximetry 92 L 93 L 98 06/04/18 03:33 06/04/18 04:00 06/04/18 07:00 Temperature 98.9 F Pulse Rate 79 77 80 Respiratory Rate 16 14 18 Blood Pressure 179/75 H 157/71 H Pulse Oximetry 96 99 06/04/18 08:00 Temperature Pulse Rate Respiratory Rate Blood Pressure Pulse Oximetry 98 Intake & Output 06/03/18 06/04/18 06/04/18 18:59 06:59 18:59 Intake Total 2450 / 2450 2350 / 2350 Output Total 555 / 555 625 / 625 175 / 175 Balance 1895 / 1895 1725 / 1725 -175 / -175 Intake: IV 2450 / 2450 2350 / 2350 Heparin/D5W 25,000 U/250 mL 25, 250 / 250 000 unit In 250 ml @ Per Protocol IV.CONT TITRATE PRN Rx #:[id number] NS Inj 1,000 ML @ 125 mls/hr IV 1000 / 1000 .CONT .Q8H SHAHEED Rx#:[id number] Sodium Bicarbonate 8.4% Inj 100 2000 / 2000 MEQ In Sterile Water for Inj 900 ML @ 125 mls/hr IV.CONT . Q8H SHAHEED Rx#:[id number] Azactam Inj 1,000 MG In NS Inj 200 / 200 100 / 100 100 ML @ 200 mls/hr IV.SIG Q8H SHAHEED Rx#:[id number] NS Inj 1,000 ML @ Wide Open IV. 1000 / 1000 SIG BOLUS ONE Rx#:[id number] Vancomycin Inj 1,000 MG In NS 250 / 250 Inj 250 ML @ 250 mls/hr IV.SIG ONCE ONE Rx#:[id number] Oral 0 / 0 Output: Urine 525 / 525 Urine Amount (Catheter) 555 / 555 100 / 100 175 / 175 100 100 / 100 Indwelling Urethral Catheter 555 / 555 175 / 175 Other: Date of Last Bowel Movement 06/02/18 06/02/18 Result Diagrams: 06/04/18 06:49 06/04/18 06:49 Other Results: Laboratory Results - last 12 hr 06/03/18 06/03/18 06/04/18 12:25 21:27 00:29 WBC RBC Hgb Hct MCV MCH MCHC RDW Plt Count MPV APTT 35.6 H Sodium Potassium Chloride Carbon Dioxide Anion Gap BUN Creatinine Estimated GFR POC Glucose 181 H Random Glucose Calcium AST ALT Albumin Ur Random Sodium 21 06/04/18 06/04/18 06/04/18 00:36 04:37 06:49 WBC 12.2 H RBC 4.36 L Hgb 12.3 L Hct 36.8 L MCV 84.4 MCH 28.3 MCHC 33.5 RDW 15.7 Plt Count 180 MPV 9.0 APTT Sodium Potassium Chloride Carbon Dioxide Anion Gap BUN Creatinine Estimated GFR POC Glucose 223 H 192 H Random Glucose Calcium AST ALT Albumin Ur Random Sodium 06/04/18 06:49 WBC RBC Hgb Hct MCV MCH MCHC RDW Plt Count MPV APTT Sodium 143 Potassium 3.5 Chloride 110 H Carbon Dioxide 21.9 Anion Gap 11 BUN 54 H Creatinine 2.37 H Estimated GFR 27 L POC Glucose Random Glucose 190 H Calcium 8.2 L AST 186 H ALT 63 Albumin 2.2 L Ur Random Sodium Imaging: Chest X-Ray 06/01/18 18:07 CONCLUSION: Mild left base consolidation. Head CT 06/01/18 18:07 CONCLUSION: 1. No acute intracranial abnormality is demonstrated. 2. 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 . Abdomen Ultrasound 06/02/18 00:00 CONCLUSION: 1. Suboptimal examination. 2. Enlarged liver with apparent hepatic steatosis. No focal lesion is identified. 3. The gallbladder is at the upper limits of normal in size with no evidence of cholelithiasis or biliary obstruction. 4. Right kidney appears increased in echogenicity which could indicate medical renal disease. There is no hydronephrosis. 5. Nonvisualization evaluation of the left kidney, pancreas and spleen. Portions of the aorta was not well visualized as well. Objective Remarks: GENERAL: Patient is 72 yo lying in bed in NAD SKIN: Warm and dry. HEAD: Normocephalic. EYES: No scleral icterus. No injection or drainage. NECK: Supple, trachea midline. No JVD or lymphadenopathy. CARDIOVASCULAR: Regular rate and rhythm without murmurs, gallops, or rubs. RESPIRATORY: Breath sounds equal bilaterally. No accessory muscle use. GASTROINTESTINAL: Abdomen soft, non-tender, nondistended. MUSCULOSKELETAL: No cyanosis, or edema. Neuro: Awake and alert Assessment and Plan - Assessment and Plan Plan: 1)Resp Insuff 2)Hyperglycemic hyperosmolar syndrome 3)AMS- improved 4)Non-STEMI 5)Hypertension 6)Acute kidney injury 7)UTI 8)Morbid obesity 9)Leukocytosis 10)Elevated AST 11)Lactic acidemia 12)Rhabdo Plan Neuro: Awake and alert. Monitor neuro status and avoid any sedatives CT brain: No acute findings, UDS: Negative. EEG showed diffuse encephalopathy, no seizure activity Pulm; Continue with oxygen keep sats >92% Bronchodilators, CXR: Mild left base consolidation CV: Monitor HR and BP keep MAP>65mmHg Monitor Trop( trending down), continue with Heparin drip. Cards is following Dr. Borjas, Echo: Very technically difficult study. unable to asses EF. Continue ASA 325mg daily, Lipitor. Lopressor 50mg BID, Hydralazine 50mg Q8, Clonidine/Lopressor IV PRN lactic acid cleared 1.0 from 5.2 : Monitor renal function, I/O's, avoid nephrotoxins IVF to SW+2amps bicarb @100 ml/hr- monitor CK's Renal function is improving with Cr: 2.37 today from 2.79 Renal US: No hydronephrosis on right, left kidney not visualized. Suboptimal exam. Renal is following- Dr. Hinkle GI: Monitor LFT's, US liver:.Suboptimal examination. Enlarged liver with apparent hepatic steatosis. No focal lesion is identified. Gallbladder is at the upper limits of normal in size with no evidence of cholelithiasis or biliary obstruction. On Pepcid for GI prophylaxis ID: Continue Aztreonam, Vanco, monitor for signs of infections ( Fever, WBC) WBC is trending down Urine cx: Group D Enterococcus 06/01 Blood culture: [place] negative staph likely contaminant 06/02 BC: NGTD Heme: Monitor CBC, coags- patient is on Heparin drip Endo: SSI with accuchecks, Levemir 5u BID DVT GI prophylaxis -Teds SCDs -Heparin drip -IV Pepcid Level 3
[2018-06-04] MEDS: Zolpidem Tartrate 5 MG Tablet PO SCH ×2 (08:29→20:41)
[2018-06-04] MEDS: Gabapentin 300 MG Capsule PO SCH ×5 (08:30→23:59)
[2018-06-04 08:39] LABS: Alkaline Phosphatase 76 U/L (45-117); Creatine Kinase 6958 U/L (39-308); Total Protein 7.8 g/dL (6.4-8.2); Vancomycin,Random 20.7 Comment
[2018-06-04 08:52] LABS: CKMB Percent 0.7 % (0.0-4.0); Creatine Kinase MB 50.5 ng/mL (0.5-3.6)
--- NOTE | 2018-06-04 13:21 | P.PNCA ---
<Jena Silverio N - Last Filed: 06/04/18 13:07> Subjective Interval history: Patient denies any chest pain, pressure, palpitations, dizziness or shortness of breath. Patient is more alert today and answering questions clearly. Physical Exam Vital signs: Vital Signs 06/03/18 14:00 06/03/18 15:00 06/03/18 16:00 Temperature 98.4 F Pulse Rate 75 72 72 Respiratory Rate 17 18 24 Blood Pressure 114/53 L 109/55 L 127/60 Pulse Oximetry 100 98 99 06/03/18 16:39 06/03/18 17:00 06/03/18 18:00 Temperature Pulse Rate 66 67 72 Respiratory Rate 14 18 22 Blood Pressure 124/78 132/63 Pulse Oximetry 94 L 93 L 06/03/18 19:46 06/03/18 20:00 06/03/18 21:00 Temperature 99.2 F 98.8 F Pulse Rate 73 75 79 Respiratory Rate 16 24 15 Blood Pressure 153/70 H 163/68 H Pulse Oximetry 94 L 95 94 L 06/03/18 22:00 06/03/18 23:00 06/04/18 00:00 Temperature 98.8 F Pulse Rate 72 77 78 Respiratory Rate 22 17 18 Blood Pressure 179/72 H 167/71 H 167/71 H Pulse Oximetry 94 L 95 96 06/04/18 00:30 06/04/18 01:00 06/04/18 02:00 Temperature Pulse Rate 74 81 81 Respiratory Rate 16 18 Blood Pressure 165/72 H 174/72 H Pulse Oximetry 92 L 93 L 06/04/18 03:00 06/04/18 03:33 06/04/18 04:00 Temperature 98.4 F 98.9 F Pulse Rate 81 79 77 Respiratory Rate 14 16 14 Blood Pressure 183/75 H 179/75 H Pulse Oximetry 98 96 06/04/18 07:00 06/04/18 08:00 06/04/18 09:00 Temperature 97.9 F Pulse Rate 80 80 77 Respiratory Rate 18 12 14 Blood Pressure 157/71 H 174/91 H 144/65 H Pulse Oximetry 99 100 100 06/04/18 10:00 06/04/18 11:00 Temperature Pulse Rate 80 81 Respiratory Rate 22 18 Blood Pressure 145/64 H Pulse Oximetry 98 Intake & Output 06/03/18 06/04/1806/04/18 18:59 06:59 18:59 Intake Total 2450 / 2450 2350 / 2350 240 / 240 Output Total 555 / 555 625 / 625 350 / 350 Balance 1895 / 1895 1725 / 1725 -110 / -110 Intake: IV 2450 / 2450 2350 / 2350 Heparin/D5W 25,000 U/250 mL 25, 250 / 250 000 unit In 250 ml @ Per Protocol IV.CONT TITRATE PRN Rx #:[id number] NS Inj 1,000 ML @ 125 mls/hr IV 1000 / 1000 .CONT .Q8H SHAHEED Rx#:[id number] Sodium Bicarbonate 8.4% Inj 100 2000 / 2000 MEQ In Sterile Water for Inj 900 ML @ 125 mls/hr IV.CONT . Q8H SHAHEED Rx#:[id number] Azactam Inj 1,000 MG In NS Inj 200 / 200 100 / 100 100 ML @ 200 mls/hr IV.SIG Q8H SHAHEED Rx#:[id number] NS Inj 1,000 ML @ Wide Open IV. 1000 / 1000 SIG BOLUS ONE Rx#:[id number] Vancomycin Inj 1,000 MG In NS 250 / 250 Inj 250 ML @ 250 mls/hr IV.SIG ONCE ONE Rx#:[id number] Oral 0 / 0 240 / 240 Output: Urine 525 / 525 Urine Amount (Catheter) 555 / 555 100 / 100 350 / 350 100 100 / 100 350 / 350 Indwelling Urethral Catheter 555 / 555 Other: Date of Last Bowel Movement 06/02/18 06/02/18 06/02/18 Narrative: GENERAL: This is a well-nourished, morbidly obese patient, in no apparent distress. Patient is speaking clear today. Patient is pleasant. HEENT: Head is atraumatic and normocephalic. Neck is supple without lymphadenopathy and trachea is midline. No JVD or carotid bruits. CARDIOVASCULAR: Regular rate and rhythm without murmurs, gallops, or rubs. RESPIRATORY: Clear to auscultation. Breath sounds equal bilaterally. No wheezes , rales, or rhonchi. Chest wall is nontender. No use of accessory muscles. GASTROINTESTINAL: Abdomen is nontender, nondistended. Abdomen soft. No obvious pulsatile mass or bruit. No CVA tenderness. Strong femoral pulses bilaterally. Normal bowel sounds in all quadrants. MUSCULOSKELETAL: Patient is moving upper and lower extremities freely. No calf tenderness or edema, no Homans sign. Strong pulses in upper and lower extremities. NEUROLOGICAL: Patient is more alert today and speaking clearly. SKIN: No rash and turgor is normal. - Urinary Catheter Management Indwelling Urethral Catheter Cath placed during this visit: yes Reason for continuing: Hourly intake/output Insertion date: 06/01/18 Insertion time: 18:05 100 Cath placed during this visit: no Assessment and Plan - Assessment (1) NSTEMI (non-ST elevated myocardial infarction) Code(s): I21.4 - Non-ST elevation (NSTEMI) myocardial infarction Status: Acute (2) Kidney disease Code(s): N28.9 - Disorder of kidney and ureter, unspecified Status: Acute (3) Morbid obesity Code(s): E66.01 - Morbid (severe) obesity due to excess calories Status: Acute (4) Diabetes Code(s): E11.9 - Type 2 diabetes mellitus without complications Status: Acute (5) Hypertension Code(s): I10 - Essential (primary) hypertension Status: Acute (6) Altered mental state Code(s): R41.82 - Altered mental status, unspecified Status: Acute - Plan Denies any chest pain, pressure or discomfort at this time. Mental status remains altered but is more alert and speaking clearly and answering questions appropriately. Patient is currently being evaluated by neurology. Troponin levels are elevated which are significant for a non-ST elevation MO. 2D echo was unable to determine left ventricular function due to poor visualization but is suspected to be mildly impaired. The benefits of cardiac catheterization do not outweigh the risks due to patient 's multiple comorbidities. Continue conservative management. Continue to monitor patient in the intensive care unit. Will follow patient during hospitalization. The patient was seen and evaluated by Dr. Borjas who participated in care, management and decision-making. <Yariel Borjas - Last Filed: 06/04/18 14:31> Physical Exam Vital signs: Vital Signs 06/03/18 15:00 06/03/18 16:00 06/03/18 16:39 Temperature 98.4 F Pulse Rate 72 72 66 Respiratory Rate 18 24 14 Blood Pressure 109/55 L 127/60 Pulse Oximetry 98 99 06/03/18 17:00 06/03/18 18:00 06/03/18 19:46 Temperature Pulse Rate 67 72 73 Respiratory Rate 18 22 16 Blood Pressure 124/78 132/63 Pulse Oximetry 94 L 93 L 94 L 06/03/18 20:00 06/03/18 21:00 06/03/18 22:00 Temperature 99.2 F 98.8 F Pulse Rate 75 79 72 Respiratory Rate 24 15 22 Blood Pressure 153/70 H 163/68 H 179/72 H Pulse Oximetry 95 94 L 94 L 06/03/18 23:00 06/04/18 00:00 06/04/18 00:30 Temperature 98.8 F Pulse Rate 77 78 74 Respiratory Rate 17 18 16 Blood Pressure 167/71 H 167/71 H Pulse Oximetry 95 96 06/04/18 01:00 06/04/18 02:00 06/04/18 03:00 Temperature 98.4 F Pulse Rate 81 81 81 Respiratory Rate 18 14 Blood Pressure 165/72 H 174/72 H 183/75 H Pulse Oximetry 92 L 93 L 98 06/04/18 03:33 06/04/18 04:00 06/04/18 07:00 Temperature 98.9 F Pulse Rate 79 77 80 Respiratory Rate 16 14 18 Blood Pressure 179/75 H 157/71 H Pulse Oximetry 96 99 06/04/18 08:00 06/04/18 09:00 06/04/18 10:00 Temperature 97.9 F Pulse Rate 80 77 80 Respiratory Rate 12 14 22 Blood Pressure 174/91 H 144/65 H 145/64 H Pulse Oximetry 100 100 98 06/04/18 11:00 06/04/18 14:25 Temperature Pulse Rate 81 79 Respiratory Rate 18 18 Blood Pressure Pulse Oximetry Intake & Output 06/03/18 06/04/18 06/04/18 18:59 06:59 18:59 Intake Total 2450 / 2450 2350 / 2350 1340 / 1340 Output Total 555 / 555 625 / 625 350 / 350 Balance 1895 / 1895 1725 / 1725 990 / 990 Intake: IV 2450 / 2450 2350 / 2350 1100 / 1100 Heparin/D5W 25,000 U/250 mL 25, 250 / 250 000 unit In 250 ml @ Per Protocol IV.CONT TITRATE PRN Rx #:[id number] NS Inj 1,000 ML @ 125 mls/hr IV 1000 / 1000 .CONT .Q8H SHAHEED Rx#:[id number] Sodium Bicarbonate 8.4% Inj 100 2000 / 2000 1000 / 1000 MEQ In Sterile Water for Inj 900 ML @ 100 mls/hr IV.CONT . Q10H SHAHEED Rx#:[id number] Azactam Inj 1,000 MG In NS Inj 200 / 200 100 / 100 100 / 100 100 ML @ 200 mls/hr IV.SIG Q8H SHAHEED Rx#:[id number] NS Inj 1,000 ML @ Wide Open IV. 1000 / 1000 SIG BOLUS ONE Rx#:[id number] Vancomycin Inj 1,000 MG In NS 250 / 250 Inj 250 ML @ 250 mls/hr IV.SIG ONCE ONE Rx#:[id number] Oral 0 / 0 240 / 240 Output: Urine 525 / 525 Urine Amount (Catheter) 555 / 555 100 / 100 350 / 350 100 100 / 100 350 / 350 Indwelling Urethral Catheter 555 / 555 Other: Date of Last Bowel Movement 06/02/18 06/02/18 06/02/18 - Urinary Catheter Management Indwelling Urethral Catheter Cath placed during this visit: no 100 Cath placed during this visit: no Assessment and Plan - Assessment (1) NSTEMI (non-ST elevated myocardial infarction) Code(s): I21.4 - Non-ST elevation (NSTEMI) myocardial infarction Status: Acute (2) Kidney disease Code(s): N28.9 - Disorder of kidney and ureter, unspecified Status: Acute (3) Morbid obesity Code(s): E66.01 - Morbid (severe) obesity due to excess calories Status: Acute (4) Diabetes Code(s): E11.9 - Type 2 diabetes mellitus without complications Status: Acute (5) Hypertension Code(s): I10 - Essential (primary) hypertension Status: Acute (6) Altered mental state Code(s): R41.82 - Altered mental status, unspecified Status: Acute - Attending Attestation Patient seen and examined. I reviewed and agree with the evaluation and plan as presented. Overall prognosis remains poor due to multiple comorbidities. Continue ICU care. Conservative management of recent ACS. Aggressive risk factor modification. Increase activity, PT.
--- NOTE | 2018-06-04 14:01 | P.PNNP ---
Subjective Interval history: He is more alert today, asking for ice chips. Renal function is better. <Genet Hernandez - Last Filed: 06/04/18 13:55> Physical Exam Vital signs: Vital Signs 06/03/18 14:00 06/03/18 15:00 06/03/18 16:00 Temperature 98.4 F Pulse Rate 75 72 72 Respiratory Rate 17 18 24 Blood Pressure 114/53 L 109/55 L 127/60 Pulse Oximetry 100 98 99 06/03/18 16:39 06/03/18 17:00 06/03/18 18:00 Temperature Pulse Rate 66 67 72 Respiratory Rate 14 18 22 Blood Pressure 124/78 132/63 Pulse Oximetry 94 L 93 L 06/03/18 19:46 06/03/18 20:00 06/03/18 21:00 Temperature 99.2 F 98.8 F Pulse Rate 73 75 79 Respiratory Rate 16 24 15 Blood Pressure 153/70 H 163/68 H Pulse Oximetry 94 L 95 94 L 06/03/18 22:00 06/03/18 23:00 06/04/18 00:00 Temperature 98.8 F Pulse Rate 72 77 78 Respiratory Rate 22 17 18 Blood Pressure 179/72 H 167/71 H 167/71 H Pulse Oximetry 94 L 95 96 06/04/18 00:30 06/04/18 01:00 06/04/18 02:00 Temperature Pulse Rate 74 81 81 Respiratory Rate 16 18 Blood Pressure 165/72 H 174/72 H Pulse Oximetry 92 L 93 L 06/04/18 03:00 06/04/18 03:33 06/04/18 04:00 Temperature 98.4 F 98.9 F Pulse Rate 81 79 77 Respiratory Rate 14 16 14 Blood Pressure 183/75 H 179/75 H Pulse Oximetry 98 96 06/04/18 07:00 06/04/18 08:00 06/04/18 09:00 Temperature 97.9 F Pulse Rate 80 80 77 Respiratory Rate 18 12 14 Blood Pressure 157/71 H 174/91 H 144/65 H Pulse Oximetry 99 100 100 06/04/18 10:00 06/04/18 11:00 Temperature Pulse Rate 80 81 Respiratory Rate 22 18 Blood Pressure 145/64 H Pulse Oximetry 98 Intake & Output 06/03/18 06/04/18 06/04/18 18:59 06:59 18:59 Intake Total 2450 / 2450 2350 / 2350 1340 / 1340 Output Total 555 / 555 625 / 625 350 / 350 Balance 1895 / 1895 1725 / 1725 990 / 990 Intake: IV 2450 / 2450 2350 / 2350 1100 / 1100 Heparin/D5W 25,000 U/250 mL 25, 250 / 250 000 unit In 250 ml @ Per Protocol IV.CONT TITRATE PRN Rx #:[id number] NS Inj 1,000 ML @ 125 mls/hr IV 1000 / 1000 .CONT .Q8H [facility] Rx#:[id number] Sodium Bicarbonate 8.4% Inj 100 2000 / 2000 1000 / 1000 MEQ In Sterile Water for Inj 900 ML @ 100 mls/hr IV.CONT . Q10H [facility] Rx#:[id number] Azactam Inj 1,000 MG In NS Inj 200 / 200 100 / 100 100 / 100 100 ML @ 200 mls/hr IV.SIG Q8H [facility] Rx#:[id number] NS Inj 1,000 ML @ Wide Open IV. 1000 / 1000 SIG BOLUS ONE Rx#:[id number] Vancomycin Inj 1,000 MG In NS 250 / 250 Inj 250 ML @ 250 mls/hr IV.SIG ONCE ONE Rx#:[id number] Oral 0 / 0 240 / 240 Output: Urine 525 / 525 Urine Amount (Catheter) 555 / 555 100 / 100 350 / 350 100 100 / 100 350 / 350 Indwelling Urethral Catheter 555 / 555 Other: Date of Last Bowel Movement 06/02/18 06/02/18 06/02/18 - Constitutional no acute distress, morbidly obese, chronically ill appearing, disheveled - Routine HEENT Exam Head: Present: normocephalic - Routine Neck Exam Present: supple, full ROM - Routine Respiratory Exam Present: CTA bilaterally, diminished air movement. Absent: accessory muscle use , respiratory distress - Routine Cardiovascular Exam Present: RRR, S1, S2 - Routine Abdominal Exam Present: soft, normoactive bowel sounds - Routine Extremities Exam Present: full ROM, pulses intact. Absent: edema - Routine Skin Exam Present: intact, dry, warm - Routine Neurological Exam Present: alert, oriented X3, CN II-XII intact sleeping but arouses to name - Detailed Neurological Exam: Coma Scale Eye Opening: To sound Verbal Response: Confused Motor Response: Obey commands [place] Coma Scale Total: 13 - Urinary Catheter Management Indwelling Urethral Catheter Cath placed during this visit: yes Reason for continuing: Hourly intake/output Insertion date: 06/01/18 Insertion time: 18:05 100 Cath placed during this visit: no <Genet Hernandez - Last Filed: 06/04/18 13:55> Vital signs: Vital Signs 06/03/18 15:00 06/03/18 16:00 06/03/18 16:39 Temperature 98.4 F Pulse Rate 72 72 66 Respiratory Rate 18 24 14 Blood Pressure 109/55 L 127/60 Pulse Oximetry 98 99 06/03/18 17:00 06/03/18 18:00 06/03/18 19:46 Temperature Pulse Rate 67 72 73 Respiratory Rate 18 22 16 Blood Pressure 124/78 132/63 Pulse Oximetry 94 L 93 L 94 L 06/03/18 20:00 06/03/18 21:00 06/03/18 22:00 Temperature 99.2 F 98.8 F Pulse Rate 75 79 72 Respiratory Rate 24 15 22 Blood Pressure 153/70 H 163/68 H 179/72 H Pulse Oximetry 95 94 L 94 L 06/03/18 23:00 06/04/18 00:00 06/04/18 00:30 Temperature 98.8 F Pulse Rate 77 78 74 Respiratory Rate 17 18 16 Blood Pressure 167/71 H 167/71 H Pulse Oximetry 95 96 06/04/18 01:00 06/04/18 02:00 06/04/18 03:00 Temperature 98.4 F Pulse Rate 81 81 81 Respiratory Rate 18 14 Blood Pressure 165/72 H 174/72 H 183/75 H Pulse Oximetry 92 L 93 L 98 06/04/18 03:33 06/04/18 04:00 06/04/18 07:00 Temperature 98.9 F Pulse Rate 79 77 80 Respiratory Rate 16 14 18 Blood Pressure 179/75 H 157/71 H Pulse Oximetry 96 99 06/04/18 08:00 06/04/18 09:00 06/04/18 10:00 Temperature 97.9 F Pulse Rate 80 77 80 Respiratory Rate 12 14 22 Blood Pressure 174/91 H 144/65 H 145/64 H Pulse Oximetry 100 100 98 06/04/18 11:00 06/04/18 14:25 Temperature Pulse Rate 81 79 Respiratory Rate 18 18 Blood Pressure Pulse Oximetry Intake & Output 06/03/18 06/04/18 06/04/18 18:59 06:59 18:59 Intake Total 2450 / 2450 2350 / 2350 1340 / 1340 Output Total 555 / 555 625 / 625 350 / 350 Balance 1895 / 1895 1725 / 1725 990 / 990 Intake: IV 2450 / 2450 2350 / 2350 1100 / 1100 Heparin/D5W 25,000 U/250 mL 25, 250 / 250 000 unit In 250 ml @ Per Protocol IV.CONT TITRATE PRN Rx #:[id number] NS Inj 1,000 ML @ 125 mls/hr IV 1000 / 1000 .CONT .Q8H [facility] Rx#:[id number] Sodium Bicarbonate 8.4% Inj 100 2000 / 2000 1000 / 1000 MEQ In Sterile Water for Inj 900 ML @ 100 mls/hr IV.CONT . Q10H [facility] Rx#:[id number] Azactam Inj 1,000 MG In NS Inj 200 / 200 100 / 100 100 / 100 100 ML @ 200 mls/hr IV.SIG Q8H [facility] Rx#:[id number] NS Inj 1,000 ML @ Wide Open IV. 1000 / 1000 SIG BOLUS ONE Rx#:[id number] Vancomycin Inj 1,000 MG In NS 250 / 250 Inj 250 ML @ 250 mls/hr IV.SIG ONCE ONE Rx#:[id number] Oral 0 / 0 240 / 240 Output: Urine 525 / 525 Urine Amount (Catheter) 555 / 555 100 / 100 350 / 350 100 100 / 100 350 / 350 Indwelling Urethral Catheter 555 / 555 Other: Date of Last Bowel Movement 06/02/18 06/02/18 06/02/18 - Urinary Catheter Management Indwelling Urethral Catheter Cath placed during this visit: no 100 Cath placed during this visit: no <Mike Hinkle - Last Filed: 06/04/18 14:56> Assessment and Plan - Assessment (1) JOSE (acute kidney injury) Code(s): N17.9 - Acute kidney failure, unspecified Status: Acute Plan: No baseline labs available for comparison, he may have underlying CKD. Renal failure most likely related to renal hypoperfusion secondary to hypotension, NSTEMI; also intravascular volume depletion due to HHNK; and UTI: may have suffered ATN His renal function is better, acidosis improving. Continue bicarb gtt (SW with 2 amps at 100ml/hr) He is non oliguric Repeat labs daily, monitor fluid status, urine output, electrolyte profile Avoid hypotension, nephrotoxins Quantify proteinuria (2) HHNC (hyperglycemic hyperosmolar nonketotic coma) Code(s): E11.01 - Type 2 diabetes mellitus with hyperosmolarity with coma Status: Acute Plan: Off insulin gtt, on intermittent insulin doses Maintain glucose 140-180 mg/dL (3) NSTEMI (non-ST elevated myocardial infarction) Code(s): I21.4 - Non-ST elevation (NSTEMI) myocardial infarction Status: Acute Plan: Off Heparin gtt, cardiology signed off, no plans for intervention given overall health status and comorbid conditions <Genet Hernandez - Last Filed: 06/04/18 13:55> - Assessment (1) JOSE (acute kidney injury) Code(s): N17.9 - Acute kidney failure, unspecified Status: Acute (2) HHNC (hyperglycemic hyperosmolar nonketotic coma) Code(s): E11.01 - Type 2 diabetes mellitus with hyperosmolarity with coma Status: Acute (3) NSTEMI (non-ST elevated myocardial infarction) Code(s): I21.4 - Non-ST elevation (NSTEMI) myocardial infarction Status: Acute - Attending Attestation patient was seen and examined. Agree with above assessment and plan. Renal function has improved slightly. <Mike Hinkle - Last Filed: 06/04/18 14:56>
[2018-06-04] MEDS: Heparin Drip 25,000 UNIT/250 ML BAG IV.CONT PRN (17:01)
[2018-06-04] MEDS ORDERED: Vancomycin Inj 1,000 MG in Sodium Chlor 0.9% Inj 250 ML IV.SIG ONE (18:00)
[2018-06-04] MEDS: Finasteride 5 MG Tablet PO SCH ×2 (19:17→20:41)
[2018-06-05] MEDS: Insulin NovoLIN Regular Correctional Sugar Inj SQ SCH ×5 (03:34→21:25)
[2018-06-05 03:57] LABS: Baso % (Auto) 0.3 % (0.0-2.0); Eos # (Auto) 0.1 th/mm3 (0.0-0.4); Eos % (Auto) 1.5 % (0.0-4.0); Hematocrit 34.2 % (39.0-51.0); Hemoglobin 11.1 gm/dL (13.0-17.0); Lymph # (Auto) 1.9 th/mm3 (1.0-4.8); Lymph % (Auto) 20.5 % (9.0-44.0); Mean Corpuscular HGB Conc 32.5 % (32.0-36.0); Mean Corpuscular Hemoglobin 27.4 pg (27.0-34.0); Mean Corpuscular Volume 84.3 fL (80.0-100.0); Mean Platelet Volume 8.9 fL (7.0-11.0); Mono # (Auto) 0.6 th/mm3 (0.0-0.9); Mono % (Auto) 6.1 % (0.0-8.0); Neut # (Auto) 6.5 th/mm3 (1.8-7.7); Neut % (Auto) 71.6 % (16.0-70.0); Platelet Count 189 th/mm3 (150-450); Red Blood Count 4.05 mil/mm3 (4.50-5.90); Red Cell Distribution Width 15.1 % (11.6-17.2); White Blood Count 9.1 th/mm3 (4.0-11.0)
[2018-06-05 04:13] LABS: Albumin 1.9 g/dL (3.4-5.0); Anion Gap 8 meq/L (5-15); Aspartate Aminotransferase 163 U/L (15-37); Blood Urea Nitrogen 45 mg/dL (7-18); Calcium 8.1 mg/dL (8.5-10.1); Carbon Dioxide 27.2 meq/L (21.0-32.0); Chloride 107 meq/L (98-107); Glomerular Filtration Rate 33 mL/min (>89); Glucose,Random 168 mg/dL (74-106); Potassium 3.4 meq/L (3.5-5.1); Sodium 142 meq/L (136-145)
[2018-06-05 04:14] LABS: Alanine Aminotransferase 65 U/L (12-78)
[2018-06-05 04:27] LABS: Alkaline Phosphatase 124 U/L (45-117); Creatine Kinase 5927 U/L (39-308); Total Protein 7.1 g/dL (6.4-8.2)
[2018-06-05 04:43] LABS: Albumin/Creatinine Ratio 371 mg/g (<17)
[2018-06-05 04:44] LABS: CKMB Percent 0.3 % (0.0-4.0); Creatine Kinase MB 19.6 ng/mL (0.5-3.6)
[2018-06-05] MEDS ORDERED: Potassium Chloride 25 MEQ Effervescent Tablet PO ONE (04:46)
[2018-06-05] MEDS: Gabapentin 300 MG Capsule PO SCH ×4 (05:05→23:51)
[2018-06-05] MEDS: Chlorhexidine Gluconate 2% 1 Pack (2 Cloths) TOPICAL SCH ×2 (05:06→11:03)
[2018-06-05] MEDS: Heparin Drip 25,000 UNIT/250 ML BAG IV.CONT PRN ×2 (07:23→22:26)
--- NOTE | 2018-06-05 08:11 | P.PNCC ---
Subjective Subjective Remarks/Hospital Course: 72-year-old morbidly obese male with history of diabetes, multiple medical issues, presents because a photoengraving retoucher found him in the bathroom slumped over. Apparently he was last seen normal this morning around 10 AM, but patient is currently fairly disoriented, not able to answer many questions. EMS found his blood sugars reading high, and his blood pressures were low. His sugars in the emergency department were extremely high, his beta butyric acid is negative. His second troponin was also found to be 27. 06/02 Patient is lying in bed in no acute resp distress. On Insulin drip 5u/hr and Heparin drip. Afebrile, Awake and alert 06/03 Patient is lying in bed in NAD. Afebrile. Off Insulin drip. On Heparin drip. 06/04 Patient is more awake and alert this morning. On Heparin and bicarb drips. Renal function is improving with Cr: 2.37 from 2.79. Afebrile. 06/05 Patient is lying in bed in NAD> On Bicarb and Heparin drips. Renal function is improving with Cr: 2.01 from 2.37. Afebrile Objective Vital Signs / I&O: Vital Signs 06/04/18 09:00 06/04/18 09:01 06/04/18 10:00 Temperature Pulse Rate 77 78 78 Respiratory Rate 14 14 36 H Blood Pressure 144/65 H 144/65 H 145/64 H Pulse Oximetry 100 100 74 L 06/04/18 10:01 06/04/18 10:44 06/04/18 11:00 Temperature Pulse Rate 78 75 79 Respiratory Rate 36 H 24 15 Blood Pressure 139/113 H 145/64 H 145/64 H Pulse Oximetry 77 L 80 L 95 06/04/18 12:00 06/04/18 12:01 06/04/18 13:00 Temperature Pulse Rate 82 82 79 Respiratory Rate 14 15 18 Blood Pressure 118/56 L 118/56 L 165/76 H Pulse Oximetry 89 L 86 L 90 L 06/04/18 13:01 06/04/18 14:00 06/04/18 14:01 Temperature Pulse Rate 80 81 81 Respiratory Rate 16 16 16 Blood Pressure 165/76 H 160/71 H 160/71 H Pulse Oximetry 90 L 100 99 06/04/18 14:25 06/04/18 15:00 06/04/18 15:01 Temperature Pulse Rate 79 80 80 Respiratory Rate 18 14 15 Blood Pressure 174/81 H 174/81 H Pulse Oximetry 73 L 65 L 06/04/18 16:00 06/04/18 16:01 06/04/18 17:00 Temperature Pulse Rate 80 80 81 Respiratory Rate 16 16 16 Blood Pressure 164/74 H 164/74 H 161/70 H Pulse Oximetry 99 97 90 L 06/04/18 17:01 06/04/18 18:00 06/04/18 18:01 Temperature Pulse Rate 81 82 81 Respiratory Rate 15 17 18 Blood Pressure 161/70 H 148/65 H 148/65 H Pulse Oximetry 93 L 96 96 06/04/18 19:00 06/04/18 19:01 06/04/18 19:37 Temperature Pulse Rate 79 73 75 Respiratory Rate 14 15 16 Blood Pressure 167/74 H Pulse Oximetry 92 L 92 L 94 L 06/04/18 20:00 06/04/18 20:01 06/04/18 21:00 Temperature 98 F Pulse Rate 76 79 79 Respiratory Rate 16 15 15 Blood Pressure 162/70 H Pulse Oximetry 99 99 96 06/04/18 21:01 06/04/18 22:00 06/04/18 22:01 Temperature Pulse Rate 78 81 81 Respiratory Rate 14 16 15 Blood Pressure 155/65 H 131/60 Pulse Oximetry 94 L 97 96 06/04/18 23:00 06/04/18 23:01 06/04/18 23:13 Temperature Pulse Rate 73 72 78 Respiratory Rate 13 16 15 Blood Pressure 169/72 H 162/70 H Pulse Oximetry 97 96 97 06/05/18 00:00 06/05/18 00:01 06/05/18 00:06 Temperature 98.2 F Pulse Rate 71 71 70 Respiratory Rate 15 12 16 Blood Pressure 155/69 H Pulse Oximetry 97 96 06/05/18 01:00 06/05/18 01:01 06/05/18 02:00 Temperature Pulse Rate 80 80 71 Respiratory Rate 13 14 14 Blood Pressure 157/69 H Pulse Oximetry 97 97 97 06/05/18 02:01 06/05/18 02:04 06/05/18 03:00 Temperature Pulse Rate 72 72 72 Respiratory Rate 14 12 15 Blood Pressure 193/88 H 170/72 H Pulse Oximetry 95 96 95 06/05/18 03:01 06/05/18 04:00 06/05/18 04:01 Temperature 99 F Pulse Rate 72 71 71 Respiratory Rate 15 14 14 Blood Pressure 158/67 H 147/62 H Pulse Oximetry 94 L 96 95 06/05/18 04:04 06/05/18 05:00 06/05/18 05:01 Temperature Pulse Rate 73 69 70 Respiratory Rate 18 15 18 Blood Pressure 138/63 Pulse Oximetry 97 96 06/05/18 06:00 06/05/18 06:01 06/05/18 07:00 Temperature Pulse Rate 80 80 76 Respiratory Rate 16 18 18 Blood Pressure 120/56 L Pulse Oximetry 89 L 93 L 97 06/05/18 07:01 Temperature Pulse Rate 77 Respiratory Rate 16 Blood Pressure 132/61 Pulse Oximetry 97 Intake & Output 06/04/18 06/05/18 06/05/18 18:59 06:59 18:59 Intake Total 2780 / 2780 1500 / 1500 350 / 350 Output Total 1350 / 1350 1830 / 1830 Balance 1430 / 1430 -330 / -330 350 / 350 Weight 171.3 kg Intake: IV 1700 / 1700 1100 / 1100 350 / 350 Heparin/D5W 25,000 U/250 mL 25, 250 / 250 250 / 250 000 unit In 250 ml @ Per Protocol IV.CONT TITRATE PRN Rx #:[id number] Sodium Bicarbonate 8.4% Inj 100 1000 / 1000 1000 / 1000 MEQ In Sterile Water for Inj 900 ML @ 40 mls/hr IV.CONT . Q24H [facility] Rx#:[id number] Azactam Inj 1,000 MG In NS Inj 200 / 200 100 / 100 100 / 100 100 ML @ 200 mls/hr IV.SIG Q8H [facility] Rx#:[id number] Vancomycin Inj 1,000 MG In NS 250 / 250 Inj 250 ML @ 250 mls/hr IV.SIG ONCE ONE Rx#:[id number] Oral 1080 / 1080 400 / 400 Output: Urine Amount (Catheter) 1350 / 1350 1830 / 3741 225 5773 / 1350 1830 / 1830 Other: Date of Last Bowel Movement 06/02/18 06/02/18 Result Diagrams: 06/05/18 03:30 06/05/18 03:30 Other Results: Laboratory Results - last 12 hr 0806/04/18 06/05/18 12:25 23:53 03:26 WBC RBC Hgb Hct MCV MCH MCHC RDW Plt Count MPV Neut % (Auto) Lymph % (Auto) [place] % (Auto) Eos % (Auto) Baso % (Auto) Neut # (Auto) Lymph # (Auto) [place] # (Auto) Eos # (Auto) Baso # (Auto) WBC Differential Differential Comment APTT Sodium Potassium Chloride Carbon Dioxide Anion Gap BUN Creatinine Estimated GFR POC Glucose 199 H 185 H Random Glucose Calcium Total Bilirubin AST ALT Alkaline Phosphatase Total Creatine Kinase CK-MB (CK-2) CK-MB (CK-2) % Total Protein Albumin Ur Microalbumin mg/L 592 U Creat (Microalbumin) 159.7 Microalb/Creat Ratio 371 H 06/05/18 06/05/18 06/05/18 03:30 03:30 03:30 WBC 9.1 RBC 4.05 L Hgb 11.1 L Hct 34.2 L MCV 84.3 MCH 27.4 MCHC 32.5 RDW 15.1 Plt Count 189 MPV 8.9 Neut % (Auto) 71.6 H Lymph % (Auto) 20.5 [place] % (Auto) 6.1 Eos % (Auto) 1.5 Baso % (Auto) 0.3 Neut # (Auto) 6.5 Lymph # (Auto) 1.9 [place] # (Auto) 0.6 Eos # (Auto) 0.1 Baso # (Auto) 0.0 WBC Differential . Differential Comment Auto diff final APTT 37.2 H Sodium 142 Potassium 3.4 L Chloride 107 Carbon Dioxide 27.2 Anion Gap 8 BUN 45 H Creatinine 2.01 H Estimated GFR 33 L POC Glucose Random Glucose 168 H Calcium 8.1 L Total Bilirubin 0.4 AST 163 H ALT 65 Alkaline Phosphatase 124 H Total Creatine Kinase 5927 H CK-MB (CK-2) 19.6 H CK-MB (CK-2) % 0.3 Total Protein 7.1 D Albumin 1.9 L Ur Microalbumin mg/L U Creat (Microalbumin) Microalb/Creat Ratio Imaging: Laboratory Results - last 12 hr 06/03/18 06/04/18 06/05/18 12:25 23:53 03:26 WBC RBC Hgb Hct MCV MCH MCHC RDW Plt Count MPV Neut % (Auto) Lymph % (Auto) [place] % (Auto) Eos % (Auto) Baso % (Auto) Neut # (Auto) Lymph # (Auto) [place] # (Auto) Eos # (Auto) Baso # (Auto) WBC Differential Differential Comment APTT Sodium Potassium Chloride Carbon Dioxide Anion Gap BUN Creatinine Estimated GFR POC Glucose 199 H 185 H Random Glucose Calcium Total Bilirubin AST ALT Alkaline Phosphatase Total Creatine Kinase CK-MB (CK-2) CK-MB (CK-2) % Total Protein Albumin Ur Microalbumin mg/L 592 U Creat (Microalbumin) 159.7 Microalb/Creat Ratio 371 H 06/05/18 06/05/18 06/05/18 03:30 03:30 03:30 WBC 9.1 RBC 4.05 L Hgb 11.1 L Hct 34.2 L MCV 84.3 MCH 27.4 MCHC 32.5 RDW 15.1 Plt Count 189 MPV 8.9 Neut % (Auto) 71.6 H Lymph % (Auto) 20.5 [place] % (Auto) 6.1 Eos % (Auto) 1.5 Baso % (Auto) 0.3 Neut # (Auto) 6.5 Lymph # (Auto) 1.9 [place] # (Auto) 0.6 Eos # (Auto) 0.1 Baso # (Auto) 0.0 WBC Differential . Differential Comment Auto diff final APTT 37.2 H Sodium 142 Potassium 3.4 L Chloride 107 Carbon Dioxide 27.2 Anion Gap 8 BUN 45 H Creatinine 2.01 H Estimated GFR 33 L POC Glucose Random Glucose 168 H Calcium 8.1 L Total Bilirubin 0.4 AST 163 H ALT 65 Alkaline Phosphatase 124 H Total Creatine Kinase 5927 H CK-MB (CK-2) 19.6 H CK-MB (CK-2) % 0.3 Total Protein 7.1 D Albumin 1.9 L Ur Microalbumin mg/L U Creat (Microalbumin) Microalb/Creat Ratio Objective Remarks: GENERAL: Patient is 72 yo lying in bed in NAD SKIN: Warm and dry. HEAD: Normocephalic. EYES: No scleral icterus. No injection or drainage. NECK: Supple, trachea midline. No JVD or lymphadenopathy. CARDIOVASCULAR: Regular rate and rhythm without murmurs, gallops, or rubs. RESPIRATORY: Breath sounds equal bilaterally. No accessory muscle use. GASTROINTESTINAL: Abdomen soft, non-tender, nondistended. MUSCULOSKELETAL: No cyanosis, or edema. Neuro: Awake and alert Assessment and Plan - Assessment and Plan Plan: 1)Resp Insuff 2)Hyperglycemic hyperosmolar syndrome 3)AMS- improved 4)Non-STEMI 5)Hypertension 6)Acute kidney injury 7)UTI 8)Morbid obesity 9)Leukocytosis 10)Elevated AST 11)Lactic acidemia 12)Rhabdo Plan Neuro: Awake and alert. Monitor neuro status and avoid any sedatives CT brain: No acute findings, UDS: Negative. EEG showed diffuse encephalopathy, no seizure activity Pulm; Continue with oxygen keep sats >92% Bronchodilators, CXR: Mild left base consolidation CV: Monitor HR and BP keep MAP>65mmHg Monitor Trop( trending down), continue with Heparin drip. Cards is following Dr. Borjas, Echo: Very technically difficult study. unable to asses EF. Continue ASA 325mg daily, Lipitor. Lopressor 50mg BID, Hydralazine 50mg Q8, Clonidine/Lopressor IV PRN lactic acid cleared 1.0 from 5.2 : Monitor renal function, I/O's, avoid nephrotoxins d/c bicarb drip and place on 1/2NS@42ml/hr- monitor CK's Renal function is improving with Cr: 2.0 from 2.37 Renal US: No hydronephrosis on right, left kidney not visualized. Suboptimal exam. Renal is following- Dr. Hinkle GI: Monitor LFT's, US liver:.Suboptimal examination. Enlarged liver with apparent hepatic steatosis. No focal lesion is identified. Gallbladder is at the upper limits of normal in size with no evidence of cholelithiasis or biliary obstruction. On Pepcid for GI prophylaxis ID: Continue Aztreonam, Vanco, monitor for signs of infections ( Fever, WBC) WBC is trending down Urine cx: Group D Enterococcus 06/01 Blood culture: Staph Haemolyticus 06/02 BC: NGTD Heme: Monitor CBC, coags- patient is on Heparin drip Endo: SSI with accuchecks, Levemir 5u BID DVT GI prophylaxis -Teds SCDs -Heparin drip -IV Pepcid Level 3
[2018-06-05] MEDS: Insulin Detemir Inj 1,000 UNIT/10 ML Vial SQ SCH ×2 (08:30→21:26)
[2018-06-05] MEDS: Senna/Docusate Sodium 8.6/50 MG Tablet PO SCH ×2 (08:30→20:55)
[2018-06-05] MEDS: Aspirin 325 MG Tablet PO SCH (08:30)
[2018-06-05] MEDS: hydrALAZINE 50 MG Tablet PO SCH ×3 (08:30→18:09)
[2018-06-05] MEDS: Metoprolol Tartrate 50 MG Tablet PO SCH ×2 (08:30→20:55)
[2018-06-05] MEDS: Famotidine PF Inj 20 MG/2 ML Vial IV.PUSH SCH ×2 (08:30→20:56)
[2018-06-05] MEDS ORDERED: Sod Chloride 0.9% Inj 1,000 ML IV.CONT SCH (09:00)
[2018-06-05] MEDS ORDERED: Sodium Chloride 0.45 % Inj 1,000 ML IV.CONT SCH (13:00)
--- NOTE | 2018-06-05 14:08 | P.PNNP ---
Subjective Interval history: Patient's renal function has improved. Acidosis is corrected. Physical Exam Vital signs: Vital Signs 06/04/18 14:25 06/04/18 15:00 06/04/18 15:01 Temperature Pulse Rate 79 80 80 Respiratory Rate 18 14 15 Blood Pressure 174/81 H 174/81 H Pulse Oximetry 73 L 65 L 06/04/18 16:00 06/04/18 16:01 06/04/18 17:00 Temperature Pulse Rate 80 80 81 Respiratory Rate 16 16 16 Blood Pressure 164/74 H 164/74 H 161/70 H Pulse Oximetry 99 97 90 L 06/04/18 17:01 06/04/18 18:00 06/04/18 18:01 Temperature Pulse Rate 81 82 81 Respiratory Rate 15 17 18 Blood Pressure 161/70 H 148/65 H 148/65 H Pulse Oximetry 93 L 96 96 06/04/18 19:00 06/04/18 19:01 06/04/18 19:37 Temperature Pulse Rate 79 73 75 Respiratory Rate 14 15 16 Blood Pressure 167/74 H Pulse Oximetry 92 L 92 L 94 L 06/04/18 20:00 06/04/18 20:01 06/04/18 21:00 Temperature 98 F Pulse Rate 76 79 79 Respiratory Rate 16 15 15 Blood Pressure 162/70 H Pulse Oximetry 99 99 96 06/04/18 21:01 06/04/18 22:00 06/04/18 22:01 Temperature Pulse Rate 78 81 81 Respiratory Rate 14 16 15 Blood Pressure 155/65 H 131/60 Pulse Oximetry 94 L 97 96 06/04/18 23:00 06/04/18 23:01 06/04/18 23:13 Temperature Pulse Rate 73 72 78 Respiratory Rate 13 16 15 Blood Pressure 169/72 H 162/70 H Pulse Oximetry 97 96 97 06/05/18 00:00 06/05/18 00:01 06/05/18 00:06 Temperature 98.2 F Pulse Rate 71 71 70 Respiratory Rate 15 12 16 Blood Pressure 155/69 H Pulse Oximetry 97 96 06/05/18 01:00 06/05/18 01:01 06/05/18 02:00 Temperature Pulse Rate 80 80 71 Respiratory Rate 13 14 14 Blood Pressure 157/69 H Pulse Oximetry 97 97 97 06/05/18 02:01 06/05/18 02:04 06/05/18 03:00 Temperature Pulse Rate 72 72 72 Respiratory Rate 14 12 15 Blood Pressure 193/88 H 170/72 H Pulse Oximetry 95 96 95 06/05/18 03:01 06/05/18 04:00 06/05/18 04:01 Temperature 99 F Pulse Rate 72 71 71 Respiratory Rate 15 14 14 Blood Pressure 158/67 H 147/62 H Pulse Oximetry 94 L 96 95 06/05/18 04:04 06/05/18 05:00 06/05/18 05:01 Temperature Pulse Rate 73 69 70 Respiratory Rate 18 15 18 Blood Pressure 138/63 Pulse Oximetry 97 96 06/05/18 06:00 06/05/18 06:01 06/05/18 07:00 Temperature Pulse Rate 80 80 76 Respiratory Rate 16 18 18 Blood Pressure 120/56 L Pulse Oximetry 89 L 93 L 97 06/05/18 07:01 06/05/18 08:00 06/05/18 08:01 Temperature 96.1 F L Pulse Rate 77 76 77 Respiratory Rate 16 17 17 Blood Pressure 132/61 123/58 L 123/58 L Pulse Oximetry 97 98 97 06/05/18 08:31 06/05/18 09:00 06/05/18 09:02 Temperature Pulse Rate 76 79 78 Respiratory Rate 18 20 27 H Blood Pressure 118/55 L Pulse Oximetry 94 L 95 98 06/05/18 10:00 06/05/18 10:01 06/05/18 11:00 Temperature Pulse Rate 70 69 70 Respiratory Rate 18 16 18 Blood Pressure 105/50 L Pulse Oximetry 94 L 94 L 98 06/05/18 11:02 06/05/18 11:41 06/05/18 12:00 Temperature 97.3 F L Pulse Rate 71 70 55 L Respiratory Rate 17 16 18 Blood Pressure 137/60 Pulse Oximetry 98 95 06/05/18 12:04 06/05/18 13:00 06/05/18 13:01 Temperature Pulse Rate 70 71 71 Respiratory Rate 21 19 19 Blood Pressure 124/94 H 111/77 Pulse Oximetry 92 L 98 98 Intake & Output 06/04/18 06/05/18 06/05/18 18:59 06:59 18:59 Intake Total 2780 / 2780 1500 / 1500 640 / 640 Output Total 1350 / 1350 1830 / 1830 252 / 252 Balance 1430 / 1430 -330 / -330 388 / 388 Weight 171.3 kg Intake: IV 1700 / 1700 1100 / 1100 350 / 350 Heparin/D5W 25,000 U/250 mL 25, 250 / 250 250 / 250 000 unit In 250 ml @ Per Protocol IV.CONT TITRATE PRN Rx #:[id number] Sodium Bicarbonate 8.4% Inj 100 1000 / 1000 1000 / 1000 MEQ In Sterile Water for Inj 900 ML @ 40 mls/hr IV.CONT . Q24H [facility] Rx#:[id number] Azactam Inj 1,000 MG In NS Inj 200 / 200 100 / 100 100 / 100 100 ML @ 200 mls/hr IV.SIG Q8H [facility] Rx#:[id number] Vancomycin Inj 1,000 MG In NS 250 / 250 Inj 250 ML @ 250 mls/hr IV.SIG ONCE ONE Rx#:[id number] Oral 1080 / 1080 400 / 400 290 / 290 Output: Urine 100 / 100 Urine Amount (Catheter) 1350 / 1350 1830 / 1830 152 / 759 665 9355 / 1350 1830 / 1830 100 / 100 Indwelling Urethral Catheter 52 / 52 Other: Date of Last Bowel Movement 06/02/18 06/02/18 06/02/18 # Bowel Movements 1 - Constitutional no acute distress Comments: lethargic, appears drowsy. - Routine HEENT Exam Eye: Present: EOMI - Routine Neck Exam Absent: JVD - Routine Respiratory Exam Present: CTA bilaterally - Routine Cardiovascular Exam Present: RRR, S1 - Routine Abdominal Exam Present: soft, normoactive bowel sounds - Routine Extremities Exam Present: edema - Routine Neurological Exam Present: alert - Urinary Catheter Management Indwelling Urethral Catheter Cath placed during this visit: yes Reason for continuing: Hourly intake/output Insertion date: 06/01/18 Insertion time: 18:05 100 Cath placed during this visit: no Assessment and Plan - Assessment (1) JOSE (acute kidney injury) Code(s): N17.9 - Acute kidney failure, unspecified Status: Acute Plan: No baseline labs available for comparison, he may have underlying CKD. Renal failure most likely related to renal hypoperfusion secondary to hypotension, NSTEMI; also intravascular volume depletion; and UTI: may have suffered ATN Renal function has improved. Stop bicarbonate drip, taper off fluids if oral intake is satisfactory. He is non oliguric Repeat labs daily, monitor fluid status, urine output, electrolyte profile Avoid hypotension, nephrotoxins (2) HHNC (hyperglycemic hyperosmolar nonketotic coma) Code(s): E11.01 - Type 2 diabetes mellitus with hyperosmolarity with coma Status: Acute Plan: Off insulin gtt, on intermittent insulin doses Maintain glucose 140-180 mg/dL (3) NSTEMI (non-ST elevated myocardial infarction) Code(s): I21.4 - Non-ST elevation (NSTEMI) myocardial infarction Status: Acute Plan: Off Heparin gtt, cardiology signed off, no plans for intervention given overall health status and comorbid conditions
[2018-06-05] MEDS: Finasteride 5 MG Tablet PO SCH (20:55)
[2018-06-05] MEDS: Zolpidem Tartrate 5 MG Tablet PO SCH (20:55)
[2018-06-06] MEDS: Gabapentin 300 MG Capsule PO SCH ×5 (00:13→23:00)
[2018-06-06] MEDS: Insulin NovoLIN Regular Correctional Sugar Inj SQ SCH ×6 (00:13→19:58)
[2018-06-06] MEDS: Chlorhexidine Gluconate 2% 1 Pack (2 Cloths) TOPICAL SCH (04:03)
[2018-06-06] MEDS: Aspirin 325 MG Tablet PO SCH (08:02)
[2018-06-06] MEDS: Insulin Detemir Inj 1,000 UNIT/10 ML Vial SQ SCH ×2 (08:02→20:01)
[2018-06-06] MEDS: Metoprolol Tartrate 50 MG Tablet PO SCH ×2 (08:02→20:00)
[2018-06-06] MEDS: hydrALAZINE 50 MG Tablet PO SCH ×3 (08:03→18:06)
[2018-06-06] MEDS: Famotidine PF Inj 20 MG/2 ML Vial IV.PUSH SCH ×2 (08:04→20:00)
[2018-06-06] MEDS: Senna/Docusate Sodium 8.6/50 MG Tablet PO SCH ×2 (08:05→20:00)
--- NOTE | 2018-06-06 08:36 | P.PNCC ---
Subjective Subjective Remarks/Hospital Course: 72-year-old morbidly obese male with history of diabetes, multiple medical issues, presents because a overhead worker found him in the bathroom slumped over. Apparently he was last seen normal this morning around 10 AM, but patient is currently fairly disoriented, not able to answer many questions. EMS found his blood sugars reading high, and his blood pressures were low. His sugars in the emergency department were extremely high, his beta butyric acid is negative. His second troponin was also found to be 27. 06/02 Patient is lying in bed in no acute resp distress. On Insulin drip 5u/hr and Heparin drip. Afebrile, Awake and alert 06/03 Patient is lying in bed in NAD. Afebrile. Off Insulin drip. On Heparin drip. 06/04 Patient is more awake and alert this morning. On Heparin and bicarb drips. Renal function is improving with Cr: 2.37 from 2.79. Afebrile. 06/05 Patient is lying in bed in NAD> On Bicarb and Heparin drips. Renal function is improving with Cr: 2.01 from 2.37. Afebrile 06/06 Patient is lying in bed in NAD. Remains on Heparin drip. Afebrile. Objective Vital Signs / I&O: Vital Signs 06/05/18 08:31 06/05/18 09:00 06/05/18 09:02 Temperature Pulse Rate 76 79 78 Respiratory Rate 18 20 27 H Blood Pressure 118/55 L Pulse Oximetry 94 L 95 98 06/05/18 10:00 06/05/18 10:01 06/05/18 11:00 Temperature Pulse Rate 70 69 70 Respiratory Rate 18 16 18 Blood Pressure 105/50 L Pulse Oximetry 94 L 94 L 98 06/05/18 11:02 06/05/18 11:41 06/05/18 12:00 Temperature 97.3 F L Pulse Rate 71 70 55 L Respiratory Rate 17 16 18 Blood Pressure 137/60 Pulse Oximetry 98 95 06/05/18 12:04 06/05/18 13:00 06/05/18 13:01 Temperature Pulse Rate 70 71 71 Respiratory Rate 21 19 19 Blood Pressure 124/94 H 111/77 Pulse Oximetry 92 L 98 98 06/05/18 14:00 06/05/18 14:01 06/05/18 15:00 Temperature Pulse Rate 68 68 67 Respiratory Rate 18 18 18 Blood Pressure 116/56 L Pulse Oximetry 96 96 96 06/05/18 15:11 06/05/18 16:00 06/05/18 16:01 Temperature 98.6 F Pulse Rate 66 67 66 Respiratory Rate 19 19 19 Blood Pressure 127/58 L 126/60 Pulse Oximetry 95 95 95 06/05/18 16:06 06/05/18 17:00 06/05/18 17:01 Temperature Pulse Rate 67 67 67 Respiratory Rate 17 17 17 Blood Pressure 133/60 Pulse Oximetry 96 96 06/05/18 18:00 06/05/18 18:01 06/05/18 19:00 Temperature Pulse Rate 67 68 68 Respiratory Rate 17 16 21 Blood Pressure 141/80 H Pulse Oximetry 97 96 96 06/05/18 19:10 06/05/18 19:45 06/05/18 19:49 Temperature Pulse Rate 71 70 Respiratory Rate 22 18 Blood Pressure 100/59 L Pulse Oximetry 96 95 06/05/18 20:00 06/05/18 20:01 06/05/18 21:00 Temperature 98.5 F Pulse Rate 76 71 70 Respiratory Rate 25 H 21 17 Blood Pressure 101/57 L Pulse Oximetry 97 98 96 06/05/18 21:01 06/05/18 22:00 06/05/18 22:01 Temperature Pulse Rate 70 68 68 Respiratory Rate 16 16 19 Blood Pressure 135/66 114/55 L Pulse Oximetry 96 96 96 06/05/18 23:00 06/05/18 23:01 06/05/18 23:23 Temperature Pulse Rate 68 69 67 Respiratory Rate 19 18 16 Blood Pressure 99/51 L Pulse Oximetry 94 L 93 L 06/06/18 00:00 06/06/18 00:01 06/06/18 01:00 Temperature 98.6 F Pulse Rate 68 68 66 Respiratory Rate 18 17 18 Blood Pressure 115/56 L Pulse Oximetry 95 96 97 06/06/18 01:01 06/06/18 02:00 06/06/18 02:01 Temperature Pulse Rate 69 65 64 Respiratory Rate 16 16 15 Blood Pressure 108/48 L 112/56 L Pulse Oximetry 96 96 96 06/06/18 03:00 06/06/18 03:01 06/06/18 03:58 Temperature Pulse Rate 66 66 65 Respiratory Rate 17 18 16 Blood Pressure 132/62 Pulse Oximetry 98 97 06/06/18 04:00 06/06/18 04:01 06/06/18 05:00 Temperature 97.8 F Pulse Rate 64 64 66 Respiratory Rate 15 16 18 Blood Pressure 131/62 Pulse Oximetry 97 97 95 06/06/18 05:01 06/06/18 06:00 06/06/18 06:01 Temperature Pulse Rate 67 67 67 Respiratory Rate 18 16 16 Blood Pressure 112/53 L 126/58 L Pulse Oximetry 96 97 98 06/06/18 07:27 Temperature Pulse Rate 66 Respiratory Rate 20 Blood Pressure Pulse Oximetry 98 Intake & Output 06/05/18 06/06/18 06/06/18 18:59 06:59 18:59 Intake Total 1220 / 1220 750 / 750 100 / 100 Output Total 452 / 452 500 / 500 Balance 768 / 768 250 / 250 100 / 100 Weight 176.3 kg Intake: IV 450 / 450 350 / 350 100 / 100 Heparin/D5W 25,000 U/250 mL 25, 250 / 250 250 / 250 000 unit In 250 ml @ Per Protocol IV.CONT TITRATE PRN Rx #:[id number] Azactam Inj 1,000 MG In NS Inj 200 / 200 100 / 100 100 / 100 100 ML @ 200 mls/hr IV.SIG Q8H SHAHEED Rx#:[id number] Oral 770 / 770 400 / 400 Output: Urine 300 / 300 Urine Amount (Catheter) 152 / 152 500 / 500 100 100 / 100 Indwelling Urethral Catheter 52 / 52 500 / 500 Other: Date of Last Bowel Movement 06/02/18 06/02/18 # Bowel Movements 1 Result Diagrams: 06/05/18 03:30 06/05/18 22:38 Other Results: Laboratory Results - last 12 hr 06/05/18 06/05/18 06/05/18 20:55 22:38 22:38 APTT 37.3 H Potassium 3.6 POC Glucose 232 H 06/06/18 06/06/18 06/06/18 00:03 03:45 07:37 APTT Potassium POC Glucose 252 H 254 H 204 H Imaging: Chest X-Ray 06/01/18 18:07 CONCLUSION: Mild left base consolidation. Head CT 06/01/18 18:07 CONCLUSION: 1. No acute intracranial abnormality is demonstrated. 2. 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 . Abdomen Ultrasound 06/02/18 00:00 CONCLUSION: 1. Suboptimal examination. 2. Enlarged liver with apparent hepatic steatosis. No focal lesion is identified. 3. The gallbladder is at the upper limits of normal in size with no evidence of cholelithiasis or biliary obstruction. 4. Right kidney appears increased in echogenicity which could indicate medical renal disease. There is no hydronephrosis. 5. Nonvisualization evaluation of the left kidney, pancreas and spleen. Portions of the aorta was not well visualized as well. Objective Remarks: GENERAL: Patient is 72 yo lying in bed in NAD SKIN: Warm and dry. HEAD: Normocephalic. EYES: No scleral icterus. No injection or drainage. NECK: Supple, trachea midline. No JVD or lymphadenopathy. CARDIOVASCULAR: Regular rate and rhythm without murmurs, gallops, or rubs. RESPIRATORY: Breath sounds equal bilaterally. No accessory muscle use. GASTROINTESTINAL: Abdomen soft, non-tender, nondistended. MUSCULOSKELETAL: No cyanosis, or edema. Neuro: Awake and alert Assessment and Plan - Assessment and Plan Plan: 1)Resp Insuff 2)Hyperglycemic hyperosmolar syndrome 3)AMS- improved 4)Non-STEMI 5)Hypertension 6)Acute kidney injury 7)UTI 8)Morbid obesity 9)Leukocytosis 10)Elevated AST 11)Lactic acidemia 12)Rhabdo Plan Neuro: Awake and alert. Monitor neuro status and avoid any sedatives CT brain: No acute findings, UDS: Negative. EEG showed diffuse encephalopathy, no seizure activity Pulm; Continue with oxygen keep sats >92% Bronchodilators, CXR: Mild left base consolidation Check CXR CV: Monitor HR and BP keep MAP>65mmHg Monitor Trop( trending down), continue with Heparin drip. Cards is following Dr. Borjas, Echo: Very technically difficult study. unable to asses EF. Continue ASA 325mg daily, Lipitor. Lopressor 50mg BID, Hydralazine 50mg Q8, Clonidine/Lopressor IV PRN lactic acid cleared 1.0 from 5.2 : Monitor renal function, I/O's, avoid nephrotoxins Off IVF, followup BMP. Given Bumex last night for possible fluid overload Renal US: No hydronephrosis on right, left kidney not visualized. Suboptimal exam. Renal is following- Dr. Hinkle GI: Monitor LFT's, US liver:.Suboptimal examination. Enlarged liver with apparent hepatic steatosis. No focal lesion is identified. Gallbladder is at the upper limits of normal in size with no evidence of cholelithiasis or biliary obstruction. On Pepcid for GI prophylaxis ID: Continue Aztreonam, Vanco, monitor for signs of infections ( Fever, WBC) WBC is trending down Urine cx: Group D Enterococcus 06/01 Blood culture: Staph Haemolyticus 06/02 BC: NGTD Heme: Monitor CBC, coags- patient is on Heparin drip Endo: SSI with accuchecks, Levemir 5u BID DVT GI prophylaxis -Teds SCDs -Heparin drip -IV Pepcid Follow up on labs Level 3
--- NOTE | 2018-06-06 09:24 | XR ---
EXAM DATE: 06/06/2018 9:16 AM EDT AGE/SEX: 72 years / Male INDICATIONS: Short of breath. CLINICAL DATA: This is the patient's initial encounter. Patient reports that signs and symptoms have been present for 4 - 6 days and indicates a pain score of 0/10. MEDICAL/SURGICAL HISTORY: . Gastroesophageal reflux disease. Hypercholesterolemia. Hypertension . Depression. Diabetes. Neuropathy. None. COMPARISON: . FINDINGS: A single AP view of the chest demonstrates diminished lung volumes. Cardiomegaly. Left basilar densit y again seen. The cardiomediastinal contours are unremarkable. Osseous structures are intact. CONCLUSION: Persistent left basilar density. Electronically signed by: Migue Herzog MD 06/06/2018 9:23 AM EDT
[2018-06-06] MEDS: Heparin Drip 25,000 UNIT/250 ML BAG IV.CONT PRN (10:08)
--- NOTE | 2018-06-06 11:43 | P.PNNP ---
Subjective Interval history: Lethargic, sleepy. Chemistry labs not available. He offers no complaints. IVF stopped, he was given a dose of Lasix. Physical Exam Vital signs: Vital Signs 06/05/18 12:00 06/05/18 12:04 06/05/18 13:00 Temperature 97.3 F L Pulse Rate 55 L 70 71 Respiratory Rate 18 21 19 Blood Pressure 124/94 H Pulse Oximetry 95 92 L 98 06/05/18 13:01 06/05/18 14:00 06/05/18 14:01 Temperature Pulse Rate 71 68 68 Respiratory Rate 19 18 18 Blood Pressure 111/77 116/56 L Pulse Oximetry 98 96 96 06/05/18 15:00 06/05/18 15:11 06/05/18 16:00 Temperature 98.6 F Pulse Rate 67 66 67 Respiratory Rate 18 19 19 Blood Pressure 127/58 L Pulse Oximetry 96 95 95 06/05/18 16:01 06/05/18 16:06 06/05/18 17:00 Temperature Pulse Rate 66 67 67 Respiratory Rate 19 17 17 Blood Pressure 126/60 Pulse Oximetry 95 96 06/05/18 17:01 06/05/18 18:00 06/05/18 18:01 Temperature Pulse Rate 67 67 68 Respiratory Rate 17 17 16 Blood Pressure 133/60 141/80 H Pulse Oximetry 96 97 96 06/05/18 19:00 06/05/18 19:10 06/05/18 19:45 Temperature Pulse Rate 68 71 70 Respiratory Rate 21 22 18 Blood Pressure 100/59 L Pulse Oximetry 96 96 06/05/18 19:49 06/05/18 20:00 06/05/18 20:01 Temperature 98.5 F Pulse Rate 76 71 Respiratory Rate 25 H 21 Blood Pressure 101/57 L Pulse Oximetry 95 97 98 06/05/18 21:00 06/05/18 21:01 06/05/18 22:00 Temperature Pulse Rate 70 70 68 Respiratory Rate 17 16 16 Blood Pressure 135/66 Pulse Oximetry 96 96 96 06/05/18 22:01 06/05/18 23:00 06/05/18 23:01 Temperature Pulse Rate 68 68 69 Respiratory Rate 19 19 18 Blood Pressure 114/55 L 99/51 L Pulse Oximetry 96 94 L 93 L 06/05/18 23:23 06/06/18 00:00 06/06/18 00:01 Temperature 98.6 F Pulse Rate 67 68 68 Respiratory Rate 16 18 17 Blood Pressure 115/56 L Pulse Oximetry 95 96 06/06/18 01:00 06/06/18 01:01 06/06/18 02:00 Temperature Pulse Rate 66 69 65 Respiratory Rate 18 16 16 Blood Pressure 108/48 L Pulse Oximetry 97 96 96 06/06/18 02:01 06/06/18 03:00 06/06/18 03:01 Temperature Pulse Rate 64 66 66 Respiratory Rate 15 17 18 Blood Pressure 112/56 L 132/62 Pulse Oximetry 96 98 97 06/06/18 03:58 06/06/18 04:00 06/06/18 04:01 Temperature 97.8 F Pulse Rate 65 64 64 Respiratory Rate 16 15 16 Blood Pressure 131/62 Pulse Oximetry 97 97 06/06/18 05:00 06/06/18 05:01 06/06/18 06:00 Temperature Pulse Rate 66 67 67 Respiratory Rate 18 18 16 Blood Pressure 112/53 L Pulse Oximetry 95 96 97 06/06/18 06:01 06/06/18 07:00 06/06/18 07:01 Temperature Pulse Rate 67 66 66 Respiratory Rate 16 18 15 Blood Pressure 126/58 L 144/65 H Pulse Oximetry 98 96 97 06/06/18 07:27 06/06/18 08:00 06/06/18 08:01 Temperature 97.0 F L Pulse Rate 66 66 67 Respiratory Rate 20 14 14 Blood Pressure 145/66 H 145/66 H Pulse Oximetry 98 97 98 06/06/18 09:00 06/06/18 09:01 06/06/18 10:00 Temperature Pulse Rate 71 70 66 Respiratory Rate 22 20 15 Blood Pressure 152/62 H Pulse Oximetry 96 95 98 06/06/18 10:01 06/06/18 11:00 06/06/18 11:01 Temperature Pulse Rate 66 66 63 Respiratory Rate 18 16 18 Blood Pressure 107/53 L 109/53 L Pulse Oximetry 98 98 97 06/06/18 11:32 Temperature Pulse Rate 64 Respiratory Rate 16 Blood Pressure Pulse Oximetry Intake & Output 06/05/18 06/06/18 06/06/18 18:59 06:59 18:59 Intake Total 1220 / 1220 750 / 750 100 / 100 Output Total 452 / 452 500 / 500 Balance 768 / 768 250 / 250 100 / 100 Weight 176.3 kg Intake: IV 450 / 450 350 / 350 100 / 100 Heparin/D5W 25,000 U/250 mL 25, 250 / 250 250 / 250 000 unit In 250 ml @ Per Protocol IV.CONT TITRATE PRN Rx #:[id number] Azactam Inj 1,000 MG In NS Inj 200 / 200 100 / 100 100 / 100 100 ML @ 200 mls/hr IV.SIG Q8H SHAHEED Rx#:[id number] Oral 770 / 770 400 / 400 Output: Urine 300 / 300 Urine Amount (Catheter) 152 / 152 500 / 500 100 100 / 100 Indwelling Urethral Catheter 52 / 52 500 / 500 Other: Date of Last Bowel Movement 06/02/18 06/02/18 06/02/18 # Bowel Movements 1 Narrative: GENERAL: This is a well-nourished, morbidly obese patient, in no apparent distress. HEENT: Head is atraumatic and normocephalic. Neck is supple without lymphadenopathy and trachea is midline. No JVD or carotid bruits. CARDIOVASCULAR: Regular rate and rhythm without murmurs, gallops, or rubs. RESPIRATORY: Clear to auscultation. Breath sounds equal bilaterally. No wheezes , rales, or rhonchi. Chest wall is nontender. No use of accessory muscles. GASTROINTESTINAL: Abdomen is nontender, nondistended. Abdomen soft. No obvious pulsatile mass or bruit. No CVA tenderness. Normal bowel sounds in all quadrants. MUSCULOSKELETAL: He has dependent edema. NEUROLOGICAL: Lethargic, appeared drowsy. - Urinary Catheter Management Indwelling Urethral Catheter Cath placed during this visit: yes Reason for continuing: Hourly intake/output Insertion date: 06/01/18 Insertion time: 18:05 100 Cath placed during this visit: no Reason for continuing: Hourly intake/output Assessment and Plan - Assessment (1) JOSE (acute kidney injury) Code(s): N17.9 - Acute kidney failure, unspecified Status: Acute Plan: No baseline labs available for comparison, he may have underlying CKD. Renal failure most likely related to renal hypoperfusion secondary to hypotension, NSTEMI; also intravascular volume depletion; and UTI: may have suffered ATN Renal function had improved. IVF stopped. Encourage oral intake. He is non oliguric Repeat labs daily, monitor fluid status, urine output, electrolyte profile Avoid hypotension, nephrotoxins (2) HHNC (hyperglycemic hyperosmolar nonketotic coma) Code(s): E11.01 - Type 2 diabetes mellitus with hyperosmolarity with coma Status: Acute Plan: Off insulin gtt, on intermittent insulin doses Maintain glucose 140-180 mg/dL (3) NSTEMI (non-ST elevated myocardial infarction) Code(s): I21.4 - Non-ST elevation (NSTEMI) myocardial infarction Status: Acute Plan: Off Heparin gtt, cardiology signed off, no plans for intervention given overall health status and comorbid conditions
[2018-06-06 12:00] LABS: ABG PCO2 54 mmHg (38-42); ABG PO2 112 mmHG (61-120)
[2018-06-06 12:27] LABS: Baso # (Auto) 0.1 th/mm3 (0.0-0.2); Baso % (Auto) 1.2 % (0.0-2.0); Eos # (Auto) 0.2 th/mm3 (0.0-0.4); Eos % (Auto) 3.4 % (0.0-4.0); Hematocrit 31.3 % (39.0-51.0); Hemoglobin 10.3 gm/dL (13.0-17.0); Lymph # (Auto) 1.8 th/mm3 (1.0-4.8); Mean Corpuscular HGB Conc 32.9 % (32.0-36.0); Mean Corpuscular Hemoglobin 27.9 pg (27.0-34.0); Mean Corpuscular Volume 84.5 fL (80.0-100.0); Mean Platelet Volume 9.4 fL (7.0-11.0); Mono # (Auto) 0.6 th/mm3 (0.0-0.9); Mono % (Auto) 8.1 % (0.0-8.0); Neut # (Auto) 4.3 th/mm3 (1.8-7.7); Neut % (Auto) 61.3 % (16.0-70.0); Platelet Count 167 th/mm3 (150-450); Red Blood Count 3.71 mil/mm3 (4.50-5.90); Red Cell Distribution Width 15.1 % (11.6-17.2); White Blood Count 7.1 th/mm3 (4.0-11.0)
[2018-06-06 13:00] LABS: Albumin 1.7 g/dL (3.4-5.0); Anion Gap 9 meq/L (5-15); Aspartate Aminotransferase 91 U/L (15-37); Blood Urea Nitrogen 53 mg/dL (7-18); Calcium 7.8 mg/dL (8.5-10.1); Carbon Dioxide 25.6 meq/L (21.0-32.0); Chloride 104 meq/L (98-107); Glomerular Filtration Rate 22 mL/min (>89); Glucose,Random 203 mg/dL (74-106); Potassium 3.7 meq/L (3.5-5.1); Sodium 139 meq/L (136-145)
[2018-06-06 13:14] LABS: Alanine Aminotransferase 51 U/L (12-78); Alkaline Phosphatase 96 U/L (45-117); Creatine Kinase 2481 U/L (39-308); Total Protein 6.5 g/dL (6.4-8.2); Vancomycin,Random 16.2 Comment
[2018-06-06 13:26] LABS: CKMB Percent 0.4 % (0.0-4.0); Creatine Kinase MB 10.2 ng/mL (0.5-3.6)
[2018-06-06] MEDS ORDERED: Vancomycin Inj 1,000 MG in Sodium Chlor 0.9% Inj 250 ML IV.SIG ONE (14:00)
[2018-06-06] MEDS: Finasteride 5 MG Tablet PO SCH (20:00)
[2018-06-06] MEDS: Zolpidem Tartrate 5 MG Tablet PO SCH (20:00)
[2018-06-06] MEDS: DEXTROSE 5% IV.CONT PRN ×2 (22:40)
[2018-06-06] MEDS: WATER IV.CONT PRN ×2 (22:40)
[2018-06-06] MEDS: GLUCAGON IV.CONT PRN ×2 (22:40)
[2018-06-07] MEDS: Insulin NovoLIN Regular Correctional Sugar Inj SQ SCH ×6 (00:42→21:15)
[2018-06-07] MEDS: Heparin Drip 25,000 UNIT/250 ML BAG IV.CONT PRN (02:01)
[2018-06-07] MEDS: WATER IV.CONT PRN ×2 (04:16)
[2018-06-07] MEDS: GLUCAGON IV.CONT PRN ×2 (04:16)
[2018-06-07] MEDS: DEXTROSE 5% IV.CONT PRN ×2 (04:16)
[2018-06-07] MEDS: Gabapentin 300 MG Capsule PO SCH ×3 (05:41→18:10)
[2018-06-07 07:18] LABS: Baso # (Auto) 0.1 th/mm3 (0.0-0.2); Baso % (Auto) 1.1 % (0.0-2.0); Eos # (Auto) 0.2 th/mm3 (0.0-0.4); Eos % (Auto) 2.3 % (0.0-4.0); Hematocrit 30.5 % (39.0-51.0); Hemoglobin 10.1 gm/dL (13.0-17.0); Lymph # (Auto) 1.6 th/mm3 (1.0-4.8); Lymph % (Auto) 20.3 % (9.0-44.0); Mean Corpuscular HGB Conc 33.2 % (32.0-36.0); Mean Corpuscular Volume 84.4 fL (80.0-100.0); Mean Platelet Volume 9.1 fL (7.0-11.0); Mono # (Auto) 0.5 th/mm3 (0.0-0.9); Mono % (Auto) 6.6 % (0.0-8.0); Neut # (Auto) 5.5 th/mm3 (1.8-7.7); Neut % (Auto) 69.7 % (16.0-70.0); Platelet Count 168 th/mm3 (150-450); Red Blood Count 3.61 mil/mm3 (4.50-5.90); Red Cell Distribution Width 15.1 % (11.6-17.2); White Blood Count 7.8 th/mm3 (4.0-11.0)
[2018-06-07] MEDS ORDERED: Sod Chloride 0.9% Inj 1,000 ML IV.SIG ONE (07:53)
[2018-06-07 07:54] LABS: Albumin 1.7 g/dL (3.4-5.0); Anion Gap 9 meq/L (5-15); Aspartate Aminotransferase 64 U/L (15-37); Blood Urea Nitrogen 60 mg/dL (7-18); Calcium 7.7 mg/dL (8.5-10.1); Chloride 103 meq/L (98-107); Glomerular Filtration Rate 24 mL/min (>89); Glucose,Random 342 mg/dL (74-106); Magnesium 1.9 mg/dL (1.5-2.5); Potassium 3.7 meq/L (3.5-5.1); Sodium 138 meq/L (136-145)
--- NOTE | 2018-06-07 07:54 | P.PNCC ---
Subjective Subjective Remarks/Hospital Course: 72-year-old morbidly obese male with history of diabetes, multiple medical issues, presents because a floral manager found him in the bathroom slumped over. Apparently he was last seen normal this morning around 10 AM, but patient is currently fairly disoriented, not able to answer many questions. EMS found his blood sugars reading high, and his blood pressures were low. His sugars in the emergency department were extremely high, his beta butyric acid is negative. His second troponin was also found to be 27. 06/02 Patient is lying in bed in no acute resp distress. On Insulin drip 5u/hr and Heparin drip. Afebrile, Awake and alert 06/03 Patient is lying in bed in NAD. Afebrile. Off Insulin drip. On Heparin drip. 06/04 Patient is more awake and alert this morning. On Heparin and bicarb drips. Renal function is improving with Cr: 2.37 from 2.79. Afebrile. 06/05 Patient is lying in bed in NAD> On Bicarb and Heparin drips. Renal function is improving with Cr: 2.01 from 2.37. Afebrile 06/06 Patient is lying in bed in NAD. Remains on Heparin drip. Afebrile. 06/07 Patient had Prolonged PA interval 0.35 was initially placed on Glucagon drip now off. Hypotensive this morning with SBP 80's Afebrile. Objective Vital Signs / I&O: Vital Signs 06/06/18 08:00 06/06/18 08:06/06/18 09:00 Temperature 97.0 F L Pulse Rate 66 67 71 Respiratory Rate 14 14 22 Blood Pressure 145/66 H 145/66 H Pulse Oximetry 97 98 96 06/06/18 09:01 06/06/18 10:00 06/06/18 10:01 Temperature Pulse Rate 70 66 66 Respiratory Rate 20 15 18 Blood Pressure 152/62 H 107/53 L Pulse Oximetry 95 98 98 06/06/18 11:00 06/06/18 11:01 06/06/18 11:32 Temperature Pulse Rate 66 63 64 Respiratory Rate 16 18 16 Blood Pressure 109/53 L Pulse Oximetry 98 97 06/06/18 12:00 06/06/18 12:05 06/06/18 12:19 Temperature 98.3 F Pulse Rate 66 65 Respiratory Rate 16 15 Blood Pressure 125/59 L 125/59 L Pulse Oximetry 96 96 99 06/06/18 13:00 06/06/18 13:01 06/06/18 14:00 Temperature Pulse Rate 70 70 71 Respiratory Rate 20 16 20 Blood Pressure 141/60 H Pulse Oximetry 93 L 93 L 98 06/06/18 14:01 06/06/18 15:00 06/06/18 15:01 Temperature Pulse Rate 71 69 69 Respiratory Rate 19 18 18 Blood Pressure 124/84 118/56 L Pulse Oximetry 95 96 97 06/06/18 15:35 06/06/18 16:00 06/06/18 16:01 Temperature 98.6 F Pulse Rate 70 69 69 Respiratory Rate 14 17 15 Blood Pressure 116/56 L 116/56 L Pulse Oximetry 97 95 97 06/06/18 17:00 06/06/18 17:01 06/06/18 18:00 Temperature Pulse Rate 68 68 72 Respiratory Rate 18 15 13 Blood Pressure 126/59 L Pulse Oximetry 97 97 98 06/06/18 18:01 06/06/18 19:00 06/06/18 19:01 Temperature Pulse Rate 71 74 74 Respiratory Rate 16 18 20 Blood Pressure 120/94 H 147/67 H Pulse Oximetry 97 96 96 06/06/18 20:00 06/06/18 20:01 06/06/18 20:19 Temperature 97.7 F Pulse Rate 73 74 74 Respiratory Rate 18 19 18 Blood Pressure 144/60 H Pulse Oximetry 97 97 96 06/06/18 21:00 06/06/18 21:01 06/06/18 22:00 Temperature Pulse Rate 76 76 75 Respiratory Rate 18 17 17 Blood Pressure 130/60 Pulse Oximetry 97 97 96 06/06/18 22:01 06/06/18 22:55 06/06/18 23:00 Temperature Pulse Rate 75 75 Respiratory Rate 17 15 Blood Pressure 141/64 H Pulse Oximetry 97 99 97 06/06/18 23:01 06/07/18 00:00 06/07/18 00:01 Temperature 97.8 F Pulse Rate 75 75 74 Respiratory Rate 19 19 15 Blood Pressure 138/57 L 110/55 L Pulse Oximetry 98 95 97 06/07/18 00:04 06/07/18 01:00 06/07/18 01:03 Temperature Pulse Rate 74 78 77 Respiratory Rate 14 15 16 Blood Pressure 111/51 L Pulse Oximetry 97 100 06/07/18 02:00 06/07/18 02:01 06/07/18 03:00 Temperature Pulse Rate 76 76 79 Respiratory Rate 18 18 17 Blood Pressure 112/53 L Pulse Oximetry 99 98 99 06/07/18 03:01 06/07/18 04:00 06/07/18 04:01 Temperature 97.7 F Pulse Rate 78 75 75 Respiratory Rate 17 17 18 Blood Pressure 100/52 L 97/47 L Pulse Oximetry 100 100 100 06/07/18 05:00 06/07/18 05:01 06/07/18 05:19 Temperature Pulse Rate 75 74 78 Respiratory Rate 18 18 20 Blood Pressure 96/46 L Pulse Oximetry 100 100 06/07/18 06:00 06/07/18 06:06 06/07/18 06:15 Temperature Pulse Rate 78 78 77 Respiratory Rate 12 16 17 Blood Pressure 80/39 L 84/48 L 86/49 L Pulse Oximetry 100 97 98 06/07/18 06:30 06/07/18 06:44 06/07/18 06:45 Temperature Pulse Rate 75 75 75 Respiratory Rate 17 18 18 Blood Pressure 77/40 L 85/44 L 81/46 L Pulse Oximetry 100 100 100 06/07/18 06:58 06/07/18 07:00 06/07/18 07:15 Temperature Pulse Rate 75 74 72 Respiratory Rate 16 18 13 Blood Pressure 84/47 L 79/40 L 78/42 L Pulse Oximetry 100 100 94 L 06/07/18 07:24 Temperature Pulse Rate 72 Respiratory Rate 15 Blood Pressure 82/44 L Pulse Oximetry 94 L Intake & Output 06/06/18 06/07/18 06/07/18 18:59 06:59 18:59 Intake Total 920 / 920 450 / 450 700 / 700 Output Total 750 / 750 1350 / 1350 Balance 170 / 170 450 / 450 -650 / -650 Weight 176.6 kg Intake: IV 200 / 200 450 / 450 100 / 100 Glucagon Inj 20 MG In D5W Inj 100 / 100 80 ML @ Per Protocol 15 mls/hr IV.CONT TITRATE PRN Rx#: [id number] Heparin/D5W 25,000 U/250 mL 25, 250 / 250 000 unit In 250 ml @ Per Protocol IV.CONT TITRATE PRN Rx #:[id number] Azactam Inj 1,000 MG In NS Inj 200 / 200 100 / 100 100 / 100 100 ML @ 200 mls/hr IV.SIG Q8H SHAHEED Rx#:[id number] Oral 720 / 720 600 / 600 Output: Urine Amount (Catheter) 750 / 750 1350 / 1350 100 750 / 750 Indwelling Urethral Catheter 1350 / 1350 Other: Date of Last Bowel Movement 06/02/18 06/06/18 06/06/18 # Bowel Movements 0 Result Diagrams: 06/07/18 05:50 06/06/18 11:25 Other Results: Laboratory Results - last 12 hr 06/07/18 06/07/18 06/07/18 00:04 03:41 05:50 WBC 7.8 RBC 3.61 L Hgb 10.1 L Hct 30.5 L MCV 84.4 MCH 28.0 MCHC 33.2 RDW 15.1 Plt Count 168 MPV 9.1 Neut % (Auto) 69.7 Lymph % (Auto) 20.3 [place] % (Auto) 6.6 Eos % (Auto) 2.3 Baso % (Auto) 1.1 Neut # (Auto) 5.5 Lymph # (Auto) 1.6 [place] # (Auto) 0.5 Eos # (Auto) 0.2 Baso # (Auto) 0.1 WBC Differential . Differential Comment Auto diff final APTT POC Glucose 326 H 371 H Phosphorus 06/07/18 06/07/18 05:50 05:50 WBC RBC Hgb Hct MCV MCH MCHC RDW Plt Count MPV Neut % (Auto) Lymph % (Auto) [place] % (Auto) Eos % (Auto) Baso % (Auto) Neut # (Auto) Lymph # (Auto) [place] # (Auto) Eos # (Auto) Baso # (Auto) WBC Differential Differential Comment APTT 44.5 H POC Glucose Phosphorus 3.0 Imaging: Head CT 06/01/18 18:07 CONCLUSION: 1. No acute intracranial abnormality is demonstrated. 2. 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 . Abdomen Ultrasound 06/02/18 00:00 CONCLUSION: 1. Suboptimal examination. 2. Enlarged liver with apparent hepatic steatosis. No focal lesion is identified. 3. The gallbladder is at the upper limits of normal in size with no evidence of cholelithiasis or biliary obstruction. 4. Right kidney appears increased in echogenicity which could indicate medical renal disease. There is no hydronephrosis. 5. Nonvisualization evaluation of the left kidney, pancreas and spleen. Portions of the aorta was not well visualized as well. Chest X-Ray 06/06/18 08:35 CONCLUSION: Persistent left basilar density. Objective Remarks: GENERAL: Patient is 72 yo lying in bed in NAD SKIN: Warm and dry. HEAD: Normocephalic. EYES: No scleral icterus. No injection or drainage. NECK: Supple, trachea midline. No JVD or lymphadenopathy. CARDIOVASCULAR: Regular rate and rhythm without murmurs, gallops, or rubs. RESPIRATORY: Breath sounds equal bilaterally. No accessory muscle use. GASTROINTESTINAL: Abdomen soft, non-tender, nondistended. MUSCULOSKELETAL: No cyanosis, or edema. Neuro: Awake and alert Assessment and Plan - Assessment and Plan Plan: 1)Resp Insuff 2)Hyperglycemic hyperosmolar syndrome 3)AMS- improved 4)Non-STEMI 5)Hypertension 6)Acute kidney injury 7)UTI 8)Morbid obesity 9)Leukocytosis 10)Elevated AST 11)Lactic acidemia 12)Rhabdo Plan Neuro: Awake. Monitor neuro status and avoid any sedatives CT brain: No acute findings, UDS: Negative. EEG showed diffuse encephalopathy, no seizure activity Pulm; Continue with oxygen keep sats >92% Bronchodilators, C CXR 06/06: Persistent left basilar density. Check ABG CV: Monitor HR and BP keep MAP>65mmHg Monitor Trop( trending down), continue with Heparin drip. Cards is following Dr. Borjas, Echo: Very technically difficult study. unable to asses EF. Continue ASA 325mg daily, Lipitor. Hold BP meds, give 1L NS bolus lactic acid cleared 1.0 from 5.2 : Monitor renal function, I/O's, avoid nephrotoxins Renal US: No hydronephrosis on right, left kidney not visualized. Suboptimal exam. Renal is following- Dr. Arin Graham on 1/2NS@75ml/hr GI: Monitor LFT's, US liver:.Suboptimal examination. Enlarged liver with apparent hepatic steatosis. No focal lesion is identified. Gallbladder is at the upper limits of normal in size with no evidence of cholelithiasis or biliary obstruction. On Pepcid for GI prophylaxis ID: Continue Aztreonam, Vanco, monitor for signs of infections ( Fever, WBC) WBC is trending down Urine cx: Group D Enterococcus 06/01 Blood culture: Staph Haemolyticus 06/02 BC: NGTD Heme: Monitor CBC, coags- on Heparin drip Endo: SSI with accuchecks, increase Levemir 10 u BID DVT GI prophylaxis -Teds SCDs -Heparin drip -IV Pepcid Level 3
[2018-06-07] MEDS ORDERED: Metoprolol Tartrate 25 MG Tablet PO SCH ×2 (08:15→21:00)
[2018-06-07] MEDS ORDERED: Chlorhexidine Gluconate 2% 1 Pack (2 Cloths) TOPICAL SCH (08:15)
[2018-06-07 08:22] LABS: Alanine Aminotransferase 49 U/L (12-78); Alkaline Phosphatase 93 U/L (45-117); Creatine Kinase 1355 U/L (39-308); Total Protein 6.4 g/dL (6.4-8.2)
[2018-06-07 08:46] LABS: Troponin I 3.59 ng/mL (0.02-0.05)
[2018-06-07] MEDS: Sodium Chloride 0.45 % Inj 1,000 ML IV.CONT SCH ×2 (08:48→21:35)
[2018-06-07] MEDS: Insulin Detemir Inj 1,000 UNIT/10 ML Vial SQ SCH ×2 (08:49→21:14)
[2018-06-07] MEDS: Aspirin 325 MG Tablet PO SCH (08:49)
[2018-06-07] MEDS: Famotidine PF Inj 20 MG/2 ML Vial IV.PUSH SCH ×2 (08:50→21:34)
[2018-06-07] MEDS: Senna/Docusate Sodium 8.6/50 MG Tablet PO SCH ×2 (08:50→21:14)
[2018-06-07] MEDS ORDERED: Sodium Chlor 0.9% Inj 500 ML IV.SIG SCH (09:00)
[2018-06-07 09:45] LABS: CKMB Percent 0.4 % (0.0-4.0); Creatine Kinase MB 5.4 ng/mL (0.5-3.6)
--- NOTE | 2018-06-07 11:34 | P.PNNP ---
Subjective Interval history: More alert today. Creatinine is better today. <Genet Hernandez - Last Filed: 06/07/18 11:30> Physical Exam Vital signs: Vital Signs 06/06/18 11:32 06/06/18 12:00 06/06/18 12:05 Temperature 98.3 F Pulse Rate 64 66 65 Respiratory Rate 16 16 15 Blood Pressure 125/59 L 125/59 L Pulse Oximetry 96 96 06/06/18 12:19 06/06/18 13:00 06/06/18 13:01 Temperature Pulse Rate 70 70 Respiratory Rate 20 16 Blood Pressure 141/60 H Pulse Oximetry 99 93 L 93 L 06/06/18 14:00 06/06/18 14:01 06/06/18 15:00 Temperature Pulse Rate 71 71 69 Respiratory Rate 20 19 18 Blood Pressure 124/84 Pulse Oximetry 98 95 96 06/06/18 15:01 06/06/18 15:35 06/06/18 16:00 Temperature 98.6 F Pulse Rate 69 70 69 Respiratory Rate 18 14 17 Blood Pressure 118/56 L 116/56 L Pulse Oximetry 97 97 95 06/06/18 16:01 06/06/18 17:00 06/06/18 17:01 Temperature Pulse Rate 69 68 68 Respiratory Rate 15 18 15 Blood Pressure 116/56 L 126/59 L Pulse Oximetry 97 97 97 06/06/18 18:00 06/06/18 18:01 06/06/18 19:00 Temperature Pulse Rate 72 71 74 Respiratory Rate 13 16 18 Blood Pressure 120/94 H Pulse Oximetry 98 97 96 06/06/18 19:01 06/06/18 20:00 06/06/18 20:01 Temperature 97.7 F Pulse Rate 74 73 74 Respiratory Rate 20 18 19 Blood Pressure 147/67 H 144/60 H Pulse Oximetry 96 97 97 06/06/18 20:19 06/06/18 21:00 06/06/18 21:01 Temperature Pulse Rate 74 76 76 Respiratory Rate 18 18 17 Blood Pressure 130/60 Pulse Oximetry 96 97 97 06/06/18 22:00 06/06/18 22:01 06/06/18 22:55 Temperature Pulse Rate 75 75 Respiratory Rate 17 17 Blood Pressure 141/64 H Pulse Oximetry 96 97 99 06/06/18 23:00 06/06/18 23:01 06/07/18 00:00 Temperature 97.8 F Pulse Rate 75 75 75 Respiratory Rate 15 19 19 Blood Pressure 138/57 L Pulse Oximetry 97 98 95 06/07/18 00:01 06/07/18 00:04 06/07/18 01:00 Temperature Pulse Rate 74 74 78 Respiratory Rate 15 14 15 Blood Pressure 110/55 L Pulse Oximetry 97 97 06/07/18 01:03 06/07/18 02:00 06/07/18 02:01 Temperature Pulse Rate 77 76 76 Respiratory Rate 16 18 18 Blood Pressure 111/51 L 112/53 L Pulse Oximetry 100 99 98 06/07/18 03:00 06/07/18 03:01 06/07/18 04:00 Temperature 97.7 F Pulse Rate 79 78 75 Respiratory Rate 17 17 17 Blood Pressure 100/52 L Pulse Oximetry 99 100 100 06/07/18 04:01 06/07/18 05:00 06/07/18 05:01 Temperature Pulse Rate 75 75 74 Respiratory Rate 18 18 18 Blood Pressure 97/47 L 96/46 L Pulse Oximetry 100 100 100 06/07/18 05:19 06/07/18 06:00 06/07/18 06:06 Temperature Pulse Rate 78 78 78 Respiratory Rate 20 12 16 Blood Pressure 80/39 L 84/48 L Pulse Oximetry 100 97 06/07/18 06:15 06/07/18 06:30 06/07/18 06:44 Temperature Pulse Rate 77 75 75 Respiratory Rate 17 17 18 Blood Pressure 86/49 L 77/40 L 85/44 L Pulse Oximetry 98 100 100 06/07/18 06:45 06/07/18 06:58 06/07/18 07:00 Temperature Pulse Rate 75 75 70 Respiratory Rate 18 16 13 Blood Pressure 81/46 L 84/47 L 79/40 L Pulse Oximetry 100 100 100 06/07/18 07:15 06/07/18 07:24 06/07/18 07:30 Temperature Pulse Rate 72 72 71 Respiratory Rate 13 15 14 Blood Pressure 78/42 L 82/44 L 82/44 L Pulse Oximetry 94 L 94 L 94 L 06/07/18 07:45 06/07/18 08:00 06/07/18 08:16 Temperature 97 F L Pulse Rate 70 70 70 Respiratory Rate 14 13 13 Blood Pressure 98/49 L 103/53 L 93/42 L Pulse Oximetry 100 100 100 06/07/18 08:30 06/07/18 08:45 06/07/18 09:00 Temperature Pulse Rate 71 72 72 Respiratory Rate 18 19 16 Blood Pressure 88/44 L 93/44 L Pulse Oximetry 100 99 97 06/07/18 09:01 06/07/18 09:15 06/07/18 09:30 Temperature Pulse Rate 72 73 72 Respiratory Rate 18 17 20 Blood Pressure 129/60 126/57 L 118/59 L Pulse Oximetry 97 98 97 06/07/18 09:46 06/07/18 10:00 06/07/18 10:15 Temperature Pulse Rate 74 73 74 Respiratory Rate 16 18 16 Blood Pressure 104/56 L 104/55 L 104/56 L Pulse Oximetry 98 97 97 06/07/18 10:30 06/07/18 10:39 06/07/18 10:40 Temperature Pulse Rate 74 75 74 Respiratory Rate 20 20 17 Blood Pressure 96/58 L 128/63 109/55 L Pulse Oximetry 100 06/07/18 10:45 06/07/18 11:00 Temperature Pulse Rate 74 72 Respiratory Rate 15 18 Blood Pressure 105/53 L 116/55 L Pulse Oximetry Intake & Output 06/06/18 06/07/18 06/07/18 18:59 06:59 18:59 Intake Total 920 / 920 450 / 450 1750 / 1750 Output Total 750 / 750 1350 / 1350 Balance 170 / 170 450 / 450 400 / 400 Weight 176.6 kg Intake: IV 200 / 200 450 / 450 1150 / 1150 Glucagon Inj 20 MG In D5W Inj 100 / 100 80 ML @ Per Protocol 15 mls/hr IV.CONT TITRATE PRN Rx#: [id number] Heparin/D5W 25,000 U/250 mL 25, 250 / 250 50 / 50 000 unit In 250 ml @ Per Protocol IV.CONT TITRATE PRN Rx #:[id number] Azactam Inj 1,000 MG In NS Inj 200 / 200 100 / 100 100 / 100 100 ML @ 200 mls/hr IV.SIG Q8H SHAHEED Rx#:[id number] NS Inj 1,000 ML @ Wide Open IV. 1000 / 1000 SIG BOLUS ONE Rx#:[id number] Oral 720 / 720 600 / 600 Output: Urine Amount (Catheter) 750 / 750 1350 / 1350 100 750 / 750 Indwelling Urethral Catheter 1350 / 1350 Other: Date of Last Bowel Movement 06/02/18 06/06/18 06/06/18 # Bowel Movements 0 - Constitutional no acute distress, morbidly obese, chronically ill appearing, disheveled, cooperative - Routine HEENT Exam Head: Present: normocephalic Eye: Present: periorbital swelling - Routine Neck Exam Present: supple, full ROM - Routine Respiratory Exam Present: distant breath sounds, diminished air movement. Absent: accessory muscle use, respiratory distress - Routine Cardiovascular Exam Present: RRR, S1, S2. Absent: murmur - Routine Abdominal Exam Present: soft, normoactive bowel sounds. Absent: organomegaly - Routine Extremities Exam Present: full ROM, pulses intact. Absent: edema - Routine Skin Exam Present: erythema, dry, warm Comments: erythema lower legs, feet warm to touch and edematous, painful - Routine Neurological Exam Present: alert, moving all extremities - Detailed Neurological Exam: Coma Scale Eye Opening: Spontaneous Verbal Response: Confused Motor Response: Obey commands [place]ting Coma Scale Total: 14 - Routine Psychiatric Exam Present: normal affect, normal thought process - Urinary Catheter Management Indwelling Urethral Catheter Cath placed during this visit: yes Reason for continuing: Hourly intake/output Insertion date: 06/01/18 Insertion time: 18:05 100 Cath placed during this visit: no Reason for continuing: Hourly intake/output <Genet Hernandez - Last Filed: 06/07/18 11:30> Vital signs: Vital Signs 06/07/18 08:16 06/07/18 08:30 06/07/18 08:45 Temperature Pulse Rate 70 71 72 Respiratory Rate 13 18 19 Blood Pressure 93/42 L 88/44 L 93/44 L Pulse Oximetry 100 100 99 06/07/18 09:00 06/07/18 09:01 06/07/18 09:15 Temperature Pulse Rate 72 72 73 Respiratory Rate 16 18 17 Blood Pressure 129/60 126/57 L Pulse Oximetry 97 97 98 06/07/18 09:30 06/07/18 09:46 06/07/18 10:00 Temperature Pulse Rate 72 74 73 Respiratory Rate 20 16 18 Blood Pressure 118/59 L 104/56 L 104/55 L Pulse Oximetry 97 98 97 06/07/18 10:15 06/07/18 10:30 06/07/18 10:39 Temperature Pulse Rate 74 74 75 Respiratory Rate 16 20 20 Blood Pressure 104/56 L 96/58 L 128/63 Pulse Oximetry 97 100 06/07/18 10:40 06/07/18 10:45 06/07/18 11:00 Temperature Pulse Rate 74 74 72 Respiratory Rate 17 15 18 Blood Pressure 109/55 L 105/53 L 116/55 L Pulse Oximetry 06/07/18 11:15 06/07/18 11:31 06/07/18 11:46 Temperature Pulse Rate 73 74 75 Respiratory Rate 13 19 17 Blood Pressure 117/58 L 106/62 124/58 L Pulse Oximetry 100 06/07/18 12:00 06/07/18 12:30 06/07/18 13:00 Temperature 98.3 F Pulse Rate 74 73 75 Respiratory Rate 14 13 16 Blood Pressure 121/58 L 126/60 127/60 Pulse Oximetry 100 100 100 06/07/18 13:31 06/07/18 14:00 06/07/18 14:01 Temperature Pulse Rate 75 75 74 Respiratory Rate 17 16 15 Blood Pressure 122/55 L 96/51 L Pulse Oximetry 100 98 99 06/07/18 14:30 06/07/18 15:00 06/07/18 15:30 Temperature Pulse Rate 75 74 75 Respiratory Rate 14 16 15 Blood Pressure 105/54 L 102/53 L 108/55 L Pulse Oximetry 99 100 99 06/07/18 16:00 06/07/18 16:01 06/07/18 16:30 Temperature 99.7 F H Pulse Rate 73 73 74 Respiratory Rate 16 16 17 Blood Pressure 106/55 L 105/53 L Pulse Oximetry 96 97 98 06/07/18 17:00 06/07/18 17:30 06/07/18 18:00 Temperature Pulse Rate 72 73 71 Respiratory Rate 14 17 16 Blood Pressure 107/54 L 113/52 L 110/53 L Pulse Oximetry 100 99 99 06/07/18 18:31 06/07/18 19:00 06/07/18 19:31 Temperature Pulse Rate 70 71 71 Respiratory Rate 16 16 17 Blood Pressure 104/51 L 114/55 L 93/51 L Pulse Oximetry 100 100 99 06/07/18 20:00 06/07/18 20:37 06/07/18 20:38 Temperature 97.8 F Pulse Rate 74 74 Respiratory Rate 17 Blood Pressure 100/49 L Pulse Oximetry 100 06/07/18 20:48 06/07/18 21:00 06/07/18 21:01 Temperature Pulse Rate 74 74 74 Respiratory Rate 16 14 17 Blood Pressure 116/55 L Pulse Oximetry 100 100 100 06/07/18 21:31 06/07/18 21:33 06/07/18 22:00 Temperature Pulse Rate 78 77 78 Respiratory Rate 21 19 21 Blood Pressure 80/59 L 129/59 L Pulse Oximetry 100 100 100 06/07/18 22:01 06/07/18 22:30 06/07/18 23:00 Temperature Pulse Rate 77 76 78 Respiratory Rate 15 13 17 Blood Pressure 105/53 L 107/52 L Pulse Oximetry 100 96 89 L 06/07/18 23:13 06/07/18 23:31 06/07/18 23:54 Temperature Pulse Rate 76 75 76 Respiratory Rate 16 16 12 Blood Pressure 116/78 116/56 L Pulse Oximetry 95 95 97 06/08/18 00:00 06/08/18 00:18 06/08/18 00:30 Temperature 99 F Pulse Rate 75 75 Respiratory Rate 16 49 H Blood Pressure 106/60 104/62 Pulse Oximetry 96 99 99 06/08/18 01:00 06/08/18 01:03 06/08/18 01:30 Temperature Pulse Rate 71 71 76 Respiratory Rate 15 19 27 H Blood Pressure 97/49 L 98/52 L Pulse Oximetry 98 98 99 06/08/18 02:00 06/08/18 02:31 06/08/18 03:00 Temperature Pulse Rate 71 69 68 Respiratory Rate 11 L 13 15 Blood Pressure 116/58 L 113/55 L 119/60 Pulse Oximetry 99 99 98 06/08/18 03:31 06/08/18 03:55 06/08/18 04:00 Temperature 98.1 F Pulse Rate 67 67 69 Respiratory Rate 13 14 15 Blood Pressure 107/53 L 120/58 L Pulse Oximetry 98 99 98 06/08/18 04:30 06/08/18 05:00 06/08/18 05:01 Temperature Pulse Rate 70 68 68 Respiratory Rate 11 L 16 17 Blood Pressure 131/63 141/63 H Pulse Oximetry 98 97 97 06/08/18 05:31 06/08/18 06:00 06/08/18 06:01 Temperature Pulse Rate 68 71 69 Respiratory Rate 14 12 15 Blood Pressure 123/58 L 120/55 L Pulse Oximetry 98 99 98 06/08/18 07:31 Temperature Pulse Rate 66 Respiratory Rate 12 Blood Pressure Pulse Oximetry 98 Intake & Output 06/07/18 06/08/18 06/08/18 18:59 06:59 18:59 Intake Total 2950 / 2950 1700 / 1700 Output Total 2000 / 2000 1800 / 1800 Balance 950 / 950 -100 / -100 Weight 176.6 kg Intake: IV 1250 / 1250 900 / 900 Heparin/D5W 25,000 U/250 mL 25, 50 / 50 000 unit In 250 ml @ Per Protocol IV.CONT TITRATE PRN Rx #:[id number] 1/2 Normal Saline Inj 1,000 ML 700 / 700 @ 50 mls/hr IV.CONT .Q20H SHAHEED Rx#:[id number] Azactam Inj 1,000 MG In NS Inj 200 / 200 200 / 200 100 ML @ 200 mls/hr IV.SIG Q8H SHAHEED Rx#:[id number] NS Inj 1,000 ML @ Wide Open IV. 1000 / 1000 SIG BOLUS ONE Rx#:[id number] Oral 1700 / 1700 800 / 800 Output: Urine 650 / 650 Urine Amount (Catheter) 1350 / 1350 1800 / 1800 Indwelling Urethral Catheter 1350 / 1350 1800 / 1800 Other: Date of Last Bowel Movement 06/06/18 06/08/18 # Bowel Movements 0 # Incontinent Bowel Movements 1 - Urinary Catheter Management Indwelling Urethral Catheter Cath placed during this visit: no 100 Cath placed during this visit: no <Mike Hinkle - Last Filed: 06/08/18 08:09> Assessment and Plan - Assessment (1) JOSE (acute kidney injury) Code(s): N17.9 - Acute kidney failure, unspecified Status: Acute Plan: No baseline labs available for comparison, he may have underlying CKD. Renal failure most likely related to renal hypoperfusion secondary to hypotension, NSTEMI; also intravascular volume depletion; and UTI: may have suffered ATN Renal function slightly better. Given IVF bolus for hypotension. Reduce maintenance fluids to 50 cc/hr. Encourage oral intake. He is non oliguric Repeat labs daily, monitor fluid status, urine output, electrolyte profile Avoid hypotension, nephrotoxins (2) HHNC (hyperglycemic hyperosmolar nonketotic coma) Code(s): E11.01 - Type 2 diabetes mellitus with hyperosmolarity with coma Status: Acute Plan: Off insulin gtt, on intermittent insulin doses Maintain glucose 140-180 mg/dL (3) NSTEMI (non-ST elevated myocardial infarction) Code(s): I21.4 - Non-ST elevation (NSTEMI) myocardial infarction Status: Acute Plan: On Heparin gtt, cardiology signed off, no plans for intervention given overall health status and comorbid conditions <Genet Hernandez - Last Filed: 06/07/18 11:30> - Assessment (1) JOSE (acute kidney injury) Code(s): N17.9 - Acute kidney failure, unspecified Status: Acute (2) HHNC (hyperglycemic hyperosmolar nonketotic coma) Code(s): E11.01 - Type 2 diabetes mellitus with hyperosmolarity with coma Status: Acute (3) NSTEMI (non-ST elevated myocardial infarction) Code(s): I21.4 - Non-ST elevation (NSTEMI) myocardial infarction Status: Acute - Attending Attestation patient was seen and examined. Agree with above assessment and plan. Renal function declined, but then improved. <Mike Hinkle - Last Filed: 06/08/18 08:09>
[2018-06-07 14:28] LABS: ABG Base Excess -0.6 mmol/L (-2-2); ABG PCO2 42 mmHg (38-42); ABG PO2 87 mmHG (61-120)
--- NOTE | 2018-06-07 15:11 | P.PNCA ---
<Jena Silverio N - Last Filed: 06/07/18 15:05> Subjective Interval history: Patient denies any chest pain, pressure, palpitations, dizziness, or shortness of breath. Patient more alert today still mildly confused. Physical Exam Vital signs: Vital Signs 06/06/18 15:35 06/06/18 16:00 06/06/18 16:01 Temperature 98.6 F Pulse Rate 70 69 69 Respiratory Rate 14 17 15 Blood Pressure 116/56 L 116/56 L Pulse Oximetry 97 95 97 06/06/18 17:00 06/06/18 17:01 06/06/18 18:00 Temperature Pulse Rate 68 68 72 Respiratory Rate 18 15 13 Blood Pressure 126/59 L Pulse Oximetry 97 97 98 06/06/18 18:01 06/06/18 19:00 06/06/18 19:01 Temperature Pulse Rate 71 74 74 Respiratory Rate 16 18 20 Blood Pressure 120/94 H 147/67 H Pulse Oximetry 97 96 96 06/06/18 20:00 06/06/18 20:01 06/06/18 20:19 Temperature 97.7 F Pulse Rate 73 74 74 Respiratory Rate 18 19 18 Blood Pressure 144/60 H Pulse Oximetry 97 97 96 06/06/18 21:00 06/06/18 21:01 06/06/18 22:00 Temperature Pulse Rate 76 76 75 Respiratory Rate 18 17 17 Blood Pressure 130/60 Pulse Oximetry 97 97 96 06/06/18 22:01 06/06/18 22:55 06/06/18 23:00 Temperature Pulse Rate 75 75 Respiratory Rate 17 15 Blood Pressure 141/64 H Pulse Oximetry 97 99 97 06/06/18 23:01 06/07/18 00:00 06/07/18 00:01 Temperature 97.8 F Pulse Rate 75 75 74 Respiratory Rate 19 19 15 Blood Pressure 138/57 L 110/55 L Pulse Oximetry 98 95 97 06/07/18 00:04 06/07/18 01:00 06/07/18 01:03 Temperature Pulse Rate 74 78 77 Respiratory Rate 14 15 16 Blood Pressure 111/51 L Pulse Oximetry 97 100 06/07/18 02:00 06/07/18 02:01 06/07/18 03:00 Temperature Pulse Rate 76 76 79 Respiratory Rate 18 18 17 Blood Pressure 112/53 L Pulse Oximetry 99 98 99 06/07/18 03:01 06/07/18 04:00 06/07/18 04:01 Temperature 97.7 F Pulse Rate 78 75 75 Respiratory Rate 17 17 18 Blood Pressure 100/52 L 97/47 L Pulse Oximetry 100 100 100 06/07/18 05:00 06/07/18 05:01 06/07/18 05:19 Temperature Pulse Rate 75 74 78 Respiratory Rate 18 18 20 Blood Pressure 96/46 L Pulse Oximetry 100 100 06/07/18 06:00 06/07/18 06:06 06/07/18 06:15 Temperature Pulse Rate 78 78 77 Respiratory Rate 12 16 17 Blood Pressure 80/39 L 84/48 L 86/49 L Pulse Oximetry 100 97 98 06/07/18 06:30 06/07/18 06:44 06/07/18 06:45 Temperature Pulse Rate 75 75 75 Respiratory Rate 17 18 18 Blood Pressure 77/40 L 85/44 L 81/46 L Pulse Oximetry 100 100 100 06/07/18 06:58 06/07/18 07:00 06/07/18 07:15 Temperature Pulse Rate 75 70 72 Respiratory Rate 16 13 13 Blood Pressure 84/47 L 79/40 L 78/42 L Pulse Oximetry 100 100 94 L 06/07/18 07:24 06/07/18 07:30 06/07/18 07:45 Temperature Pulse Rate 72 71 70 Respiratory Rate 15 14 14 Blood Pressure 82/44 L 82/44 L 98/49 L Pulse Oximetry 94 L 94 L 100 06/07/18 08:00 06/07/18 08:16 06/07/18 08:30 Temperature 97 F L Pulse Rate 70 70 71 Respiratory Rate 13 13 18 Blood Pressure 103/53 L 93/42 L 88/44 L Pulse Oximetry 100 100 100 06/07/18 08:45 06/07/18 09:00 06/07/18 09:01 Temperature Pulse Rate 72 72 72 Respiratory Rate 19 16 18 Blood Pressure 93/44 L 129/60 Pulse Oximetry 99 97 97 06/07/18 09:15 06/07/18 09:30 06/07/18 09:46 Temperature Pulse Rate 73 72 74 Respiratory Rate 17 20 16 Blood Pressure 126/57 L 118/59 L 104/56 L Pulse Oximetry 98 97 98 06/07/18 10:00 06/07/18 10:15 06/07/18 10:30 Temperature Pulse Rate 73 74 74 Respiratory Rate 18 16 20 Blood Pressure 104/55 L 104/56 L 96/58 L Pulse Oximetry 97 97 100 06/07/18 10:39 06/07/18 10:40 06/07/18 10:45 Temperature Pulse Rate 75 74 74 Respiratory Rate 20 17 15 Blood Pressure 128/63 109/55 L 105/53 L Pulse Oximetry 06/07/18 11:00 06/07/18 11:15 06/07/18 11:31 Temperature Pulse Rate 72 73 74 Respiratory Rate 18 13 19 Blood Pressure 116/55 L 117/58 L 106/62 Pulse Oximetry 06/07/18 11:46 06/07/18 12:00 06/07/18 12:30 Temperature 98.3 F Pulse Rate 75 74 73 Respiratory Rate 17 14 13 Blood Pressure 124/58 L 121/58 L 126/60 Pulse Oximetry 100 100 100 06/07/18 15:00 Temperature Pulse Rate 74 Respiratory Rate 18 Blood Pressure Pulse Oximetry Intake & Output 06/06/18 06/07/18 06/07/18 18:59 06:59 18:59 Intake Total 920 / 920 450 / 450 1750 / 1750 Output Total 750 / 750 1350 / 1350 Balance 170 / 170 450 / 450 400 / 400 Weight 176.6 kg Intake: IV 200 / 200 450 / 450 1150 / 1150 Glucagon Inj 20 MG In D5W Inj 100 / 100 80 ML @ Per Protocol 15 mls/hr IV.CONT TITRATE PRN Rx#: [id number] Heparin/D5W 25,000 U/250 mL 25, 250 / 250 50 / 50 000 unit In 250 ml @ Per Protocol IV.CONT TITRATE PRN Rx #:[id number] Azactam Inj 1,000 MG In NS Inj 200 / 200 100 / 100 100 / 100 100 ML @ 200 mls/hr IV.SIG Q8H SHAHEED Rx#:[id number] NS Inj 1,000 ML @ Wide Open IV. 1000 / 1000 SIG BOLUS ONE Rx#:[id number] Oral 720 / 720 600 / 600 Output: Urine Amount (Catheter) 750 / 750 1350 / 1350 100 750 / 750 Indwelling Urethral Catheter 1350 / 1350 Other: Date of Last Bowel Movement 06/02/18 06/06/18 06/06/18 # Bowel Movements 0 Narrative: GENERAL: This is a well-nourished, well-developed, morbidly obese patient, in no apparent distress. Patient speaks in clear complete sentences. Patient is pleasant. HEENT: Head is atraumatic and normocephalic. Neck is supple without lymphadenopathy and trachea is midline. No JVD or carotid bruits. CARDIOVASCULAR: Regular rate and rhythm without murmurs, gallops, or rubs. RESPIRATORY: Clear to auscultation. Breath sounds equal bilaterally. No wheezes , rales, or rhonchi. Chest wall is nontender. No use of accessory muscles. GASTROINTESTINAL: Abdomen is nontender, nondistended. Abdomen soft. No obvious pulsatile mass or bruit. No CVA tenderness. Strong femoral pulses bilaterally. Normal bowel sounds in all quadrants. MUSCULOSKELETAL: Patient is moving upper and lower extremities freely. No calf tenderness or edema, no Homans sign. Strong pulses in upper and lower extremities. NEUROLOGICAL: Patient is alert and confused at times. No focal deficits and speech is clear. SKIN: No rash and turgor is normal. - Urinary Catheter Management Indwelling Urethral Catheter Cath placed during this visit: yes Reason for continuing: Hourly intake/output Insertion date: 06/01/18 Insertion time: 18:05 100 Cath placed during this visit: no Reason for continuing: Hourly intake/output Assessment and Plan - Assessment (1) NSTEMI (non-ST elevated myocardial infarction) Code(s): I21.4 - Non-ST elevation (NSTEMI) myocardial infarction Status: Acute (2) Kidney disease Code(s): N28.9 - Disorder of kidney and ureter, unspecified Status: Acute (3) Morbid obesity Code(s): E66.01 - Morbid (severe) obesity due to excess calories Status: Acute (4) Diabetes Code(s): E11.9 - Type 2 diabetes mellitus without complications Status: Acute (5) Hypertension Code(s): I10 - Essential (primary) hypertension Status: Acute (6) Altered mental state Code(s): R41.82 - Altered mental status, unspecified Status: Acute - Plan Mental status remains altered but is more alert and speaking clearly and answering questions appropriately. Patient is currently being evaluated by neurology. Patient had increase in ND interval on 12-lead EKG. Metoprolol was placed on hold but will restart at 25 mg p.o. twice daily. The benefits of cardiac catheterization do not outweigh the risks due to patient 's multiple comorbidities. Continue conservative management. Continue to monitor patient in the intensive care unit. Will follow patient during hospitalization. The patient was seen and evaluated by Dr. Borjas who participated in care, management and decision-making. <Yariel Borjas - Last Filed: 06/07/18 16:31> Physical Exam Vital signs: Vital Signs 06/06/18 17:00 06/06/18 17:01 06/06/18 18:00 Temperature Pulse Rate 68 68 72 Respiratory Rate 18 15 13 Blood Pressure 126/59 L Pulse Oximetry 97 97 98 06/06/18 18:01 06/06/18 19:00 06/06/18 19:01 Temperature Pulse Rate 71 74 74 Respiratory Rate 16 18 20 Blood Pressure 120/94 H 147/67 H Pulse Oximetry 97 96 96 06/06/18 20:00 06/06/18 20:01 06/06/18 20:19 Temperature 97.7 F Pulse Rate 73 74 74 Respiratory Rate 18 19 18 Blood Pressure 144/60 H Pulse Oximetry 97 97 96 06/06/18 21:00 06/06/18 21:01 06/06/18 22:00 Temperature Pulse Rate 76 76 75 Respiratory Rate 18 17 17 Blood Pressure 130/60 Pulse Oximetry 97 97 96 06/06/18 22:01 06/06/18 22:55 06/06/18 23:00 Temperature Pulse Rate 75 75 Respiratory Rate 17 15 Blood Pressure 141/64 H Pulse Oximetry 97 99 97 06/06/18 23:01 06/07/18 00:00 06/07/18 00:01 Temperature 97.8 F Pulse Rate 75 75 74 Respiratory Rate 19 19 15 Blood Pressure 138/57 L 110/55 L Pulse Oximetry 98 95 97 06/07/18 00:04 06/07/18 01:00 06/07/18 01:03 Temperature Pulse Rate 74 78 77 Respiratory Rate 14 15 16 Blood Pressure 111/51 L Pulse Oximetry 97 100 06/07/18 02:00 06/07/18 02:01 06/07/18 03:00 Temperature Pulse Rate 76 76 79 Respiratory Rate 18 18 17 Blood Pressure 112/53 L Pulse Oximetry 99 98 99 06/07/18 03:01 06/07/18 04:00 06/07/18 04:01 Temperature 97.7 F Pulse Rate 78 75 75 Respiratory Rate 17 17 18 Blood Pressure 100/52 L 97/47 L Pulse Oximetry 100 100 100 06/07/18 05:00 06/07/18 05:01 06/07/18 05:19 Temperature Pulse Rate 75 74 78 Respiratory Rate 18 18 20 Blood Pressure 96/46 L Pulse Oximetry 100 100 06/07/18 06:00 06/07/18 06:06 06/07/18 06:15 Temperature Pulse Rate 78 78 77 Respiratory Rate 12 16 17 Blood Pressure 80/39 L 84/48 L 86/49 L Pulse Oximetry 100 97 98 06/07/18 06:30 06/07/18 06:44 06/07/18 06:45 Temperature Pulse Rate 75 75 75 Respiratory Rate 17 18 18 Blood Pressure 77/40 L 85/44 L 81/46 L Pulse Oximetry 100 100 100 06/07/18 06:58 06/07/18 07:00 06/07/18 07:15 Temperature Pulse Rate 75 70 72 Respiratory Rate 16 13 13 Blood Pressure 84/47 L 79/40 L 78/42 L Pulse Oximetry 100 100 94 L 06/07/18 07:24 06/07/18 07:30 06/07/18 07:45 Temperature Pulse Rate 72 71 70 Respiratory Rate 15 14 14 Blood Pressure 82/44 L 82/44 L 98/49 L Pulse Oximetry 94 L 94 L 100 06/07/18 08:00 06/07/18 08:16 06/07/18 08:30 Temperature 97 F L Pulse Rate 70 70 71 Respiratory Rate 13 13 18 Blood Pressure 103/53 L 93/42 L 88/44 L Pulse Oximetry 100 100 100 06/07/18 08:45 06/07/18 09:00 06/07/18 09:01 Temperature Pulse Rate 72 72 72 Respiratory Rate 19 16 18 Blood Pressure 93/44 L 129/60 Pulse Oximetry 99 97 97 06/07/18 09:15 06/07/18 09:30 06/07/18 09:46 Temperature Pulse Rate 73 72 74 Respiratory Rate 17 20 16 Blood Pressure 126/57 L 118/59 L 104/56 L Pulse Oximetry 98 97 98 06/07/18 10:00 06/07/18 10:15 06/07/18 10:30 Temperature Pulse Rate 73 74 74 Respiratory Rate 18 16 20 Blood Pressure 104/55 L 104/56 L 96/58 L Pulse Oximetry 97 97 100 06/07/18 10:39 06/07/18 10:40 06/07/18 10:45 Temperature Pulse Rate 75 74 74 Respiratory Rate 20 17 15 Blood Pressure 128/63 109/55 L 105/53 L Pulse Oximetry 06/07/18 11:00 06/07/18 11:15 06/07/18 11:31 Temperature Pulse Rate 72 73 74 Respiratory Rate 18 13 19 Blood Pressure 116/55 L 117/58 L 106/62 Pulse Oximetry 06/07/18 11:46 06/07/18 12:00 06/07/18 12:30 Temperature 98.3 F Pulse Rate 75 74 73 Respiratory Rate 17 14 13 Blood Pressure 124/58 L 121/58 L 126/60 Pulse Oximetry 100 100 100 06/07/18 13:00 06/07/18 13:31 06/07/18 14:00 Temperature Pulse Rate 75 75 75 Respiratory Rate 16 17 16 Blood Pressure 127/60 122/55 L Pulse Oximetry 100 100 98 06/07/18 14:01 06/07/18 14:30 06/07/18 15:00 Temperature Pulse Rate 74 75 74 Respiratory Rate 15 14 16 Blood Pressure 96/51 L 105/54 L 102/53 L Pulse Oximetry 99 99 100 Intake & Output 06/06/18 06/07/18 06/07/18 18:59 06:59 18:59 Intake Total 920 / 920 450 / 450 1750 / 1750 Output Total 750 / 750 1350 / 1350 Balance 170 / 170 450 / 450 400 / 400 Weight 389 lb 5.381 oz Intake: IV 200 / 200 450 / 450 1150 / 1150 Glucagon Inj 20 MG In D5W Inj 100 / 100 80 ML @ Per Protocol 15 mls/hr IV.CONT TITRATE PRN Rx#: [id number] Heparin/D5W 25,000 U/250 mL 25, 250 / 250 50 / 50 000 unit In 250 ml @ Per Protocol IV.CONT TITRATE PRN Rx #:[id number] Azactam Inj 1,000 MG In NS Inj 200 / 200 100 / 100 100 / 100 100 ML @ 200 mls/hr IV.SIG Q8H SHAHEED Rx#:[id number] NS Inj 1,000 ML @ Wide Open IV. 1000 / 1000 SIG BOLUS ONE Rx#:[id number] Oral 720 / 720 600 / 600 Output: Urine Amount (Catheter) 750 / 750 1350 / 1350 100 750 / 750 Indwelling Urethral Catheter 1350 / 1350 Other: Date of Last Bowel Movement 06/02/18 06/06/18 06/06/18 # Bowel Movements 0 - Urinary Catheter Management Indwelling Urethral Catheter Cath placed during this visit: no 100 Cath placed during this visit: no Assessment and Plan - Assessment (1) NSTEMI (non-ST elevated myocardial infarction) Code(s): I21.4 - Non-ST elevation (NSTEMI) myocardial infarction Status: Acute (2) Kidney disease Code(s): N28.9 - Disorder of kidney and ureter, unspecified Status: Acute (3) Morbid obesity Code(s): E66.01 - Morbid (severe) obesity due to excess calories Status: Acute (4) Diabetes Code(s): E11.9 - Type 2 diabetes mellitus without complications Status: Acute (5) Hypertension Code(s): I10 - Essential (primary) hypertension Status: Acute (6) Altered mental state Code(s): R41.82 - Altered mental status, unspecified Status: Acute - Attending Attestation Patient seen and examined. I reviewed and agree with the evaluation and plan as presented. BP low normal, ND increased. Hold antihypertensive therapy. Restart metoprolol later at a lower dose as tolerated. Increase activity, continue PT.
--- NOTE | 2018-06-07 16:36 | ECG ---
Date Performed: 06/06/2018 Time Performed: 22:30:34 PTAGE: 72 years EKG: Sinus rhythm WITH FIRST DEGREE AV BLOCK LEFT BUNDLE BRANCH BLOCK ABNORMAL ECG Since the PREVIOUS TRACING , no significant change noted PREVIOUS TRACIN06/01/2018 20.17 DOCTOR: Kavon Ashley Interpretating Date/Time 06/07/2018 16:36:38
--- NOTE | 2018-06-07 20:27 | CT ---
EXAM DATE: 06/07/2018 8:21 PM EDT AGE/SEX: 72 years / Male INDICATIONS: Shortness of breath. CLINICAL DATA: This is the patient's initial encounter. Patient reports that signs and symptoms have been present for 1 day and indicates a pain score of 7/10. MEDICAL/SURGICAL HISTORY: Diabetes. Hypertension. None. RADIATION DOSE: 25.03 CTDI (mGy) ; Patient body habitus COMPARISON: [facility], CHEST 1V SINGLE AP, 06/06/2018. . TECHNIQUE: Multiple contiguous axial images were obtained through the chest without contrast. Image s were obtained in suspended respiration using multiple row detector helical technique. Using automa tatyana exposure control and adjustment of the mA and/or kV according to patient size, radiation dose was kept as low as reasonably achievable to obtain optimal diagnostic quality images. DICOM format imag e data is available electronically for review and comparison. FINDINGS: Lungs: The lungs are symmetrically aerated. There are no nodules or masses. There is atelectasis and mild consolidation in the left lung base. Mediastinum: There is good visualization of the great vessels of the middle mediastinum. No evidenc e of mediastinal or hilar adenopathy/mass. Extensive coronary artery calcifications are present. Ther e is mild cardiomegaly. Pleurae: No evidence of focal thickening or pleural effusion. Axillae: Unremarkable. Bony Structures: Unremarkable. Miscellaneous: The examination was extended to include the upper abdomen, and both adrenal glands ar e normal in size and configuration. There is small calcifications in both kidneys. CONCLUSION: 1. Atelectasis and mild consolidation in the left lung base which could represent early pneumonia. 2. Mild cardiomegaly and coronary artery calcifications. Electronically signed by: Alan Sen MD 06/07/2018 8:26 PM EDT
[2018-06-07] MEDS: Finasteride 5 MG Tablet PO SCH (21:14)
[2018-06-07] MEDS: Zolpidem Tartrate 5 MG Tablet PO SCH (21:14)
--- NOTE | 2018-06-07 22:39 | MB ---
cc: Nicholas Lozano MD DATE: 06/07/2018 REASON FOR CONSULTATION: Pulmonary evaluation, history of respiratory failure. HISTORY OF PRESENT ILLNESS: This is a 72-year-old, extremely obese white male with a history of diabetes, hypertension and a history of possible sleep apnea, who was found to be extremely lethargic and disoriented and thus was brought to the ER with a high blood sugar. The patient was hypotensive and was seen in the emergency room where he had a complete evaluation including a cardiac evaluation and found to have some elevated troponins. The patient was transferred to the intensive care unit and placed on an insulin drip and a heparin drip and was on BiPAP initially but subsequently placed on oxygen via nasal cannula. His chest x-ray showed evidence of mild basilar infiltrates and a CT brain showed no acute findings, but the EEG showed diffuse encephalopathy. The patient was treated for possible sepsis as well and urine culture was positive for Enterococcus. He has since improved and now on nasal cannula oxygen at 3 liters. He seems weak, unable to sit up or ambulate and does have some leg edema. PAST MEDICAL HISTORY: The patient's past history has included a history of diabetes mellitus type 2, history of hypertension, history of chronic kidney disease, history of UTIs. The patient does have a history of hyperlipidemia, peripheral neuropathy and depression. HABITS AND SOCIAL HISTORY: The patient was a smoker, 1-2 packs per day for over 30 years. Alcohol use, minimal. ALLERGIES: NO DRUG ALLERGIES ARE LISTED. FAMILY HISTORY: Significant for malignancy in his father. REVIEW OF SYSTEMS: Reveals the patient is overweight. He has dizziness, postnasal drip. He has a cough and wheezing. He has epigastric distress and reflux. He has had leg swelling. No calf muscle pain. He has some lower chest pain, some back pain and urinary frequency. He does have depression with anxiety. PHYSICAL EXAMINATION: GENERAL: This is a very obese, elderly man who is sitting upright. He is on oxygen via nasal cannula. There is mild pallor. No cyanosis. There is 2+ leg edema. No lymphadenopathy. SKIN: Skin turgor is diminished. VITAL SIGNS: Blood pressure 130/70, pulse 66, respirations 16, temperature 97.2. HEENT: Head is normocephalic. Pupils are reactive. Tongue is dry. Throat is injected. Nasal mucosa is clear. NECK: Supple with mild venous distention. Trachea midline. No thyroid enlargement or lymphadenopathy. CHEST: Distant breath sounds with occasional bibasilar crackles with wheezes scattered bilaterally. HEART: The heart sounds are irregular. S1 and S2 with no murmur. ABDOMEN: Obese, protuberant with mild epigastric tenderness. No organomegaly. The bowel sounds are active. EXTREMITIES: Edema of 1 to 2+ with no calf tenderness on either side. NEUROLOGIC: Reflexes are 1+. No gross motor deficits. Cranial nerves grossly intact. SKIN: Dry and scaly. IMPRESSION: 1. Non-ST elevation myocardial infarction. 2. Acute kidney injury, resolving. 3. Hyperglycemic hyperosmolar nonketotic coma, resolving. 4. Obesity hypoventilation syndrome. 5. Respiratory failure, resolved. 6. Probable underlying chronic obstructive pulmonary disease. 7. Obesity. PLAN: The patient will be maintained on O2 at 3 liters. A chest x-ray is to be done in a.m. Antibiotic therapy will be continued and nebulized DuoNeb solution added t.i.d. p.r.n. Pulmonary function study done at the bedside when stable. The patient will be placed on BiPAP at bedtime if he is hypoventilating, and a sleep study will be arranged as an outpatient when discharged. Incentive spirometry will be encouraged every 2 hours. Avoid sedation and narcotics. Thank you, Dr. Phelps, for this consultation. Nicholas Lozano MD VGREER/hemalatha , 07:51 PM , 08:05 PM
[2018-06-08] MEDS: Insulin NovoLIN Regular Correctional Sugar Inj SQ SCH ×6 (00:10→20:20)
[2018-06-08] MEDS: Gabapentin 300 MG Capsule PO SCH ×4 (00:10→17:23)
[2018-06-08 07:47] LABS: Baso # (Auto) 0.1 th/mm3 (0.0-0.2); Baso % (Auto) 0.9 % (0.0-2.0); Eos # (Auto) 0.3 th/mm3 (0.0-0.4); Eos % (Auto) 3.9 % (0.0-4.0); Hematocrit 30.4 % (39.0-51.0); Hemoglobin 10.1 gm/dL (13.0-17.0); Lymph # (Auto) 1.9 th/mm3 (1.0-4.8); Lymph % (Auto) 28.4 % (9.0-44.0); Mean Corpuscular HGB Conc 33.2 % (32.0-36.0); Mean Corpuscular Hemoglobin 28.1 pg (27.0-34.0); Mean Corpuscular Volume 84.6 fL (80.0-100.0); Mean Platelet Volume 9.2 fL (7.0-11.0); Mono # (Auto) 0.6 th/mm3 (0.0-0.9); Mono % (Auto) 8.5 % (0.0-8.0); Neut % (Auto) 58.3 % (16.0-70.0); Platelet Count 174 th/mm3 (150-450); Red Blood Count 3.59 mil/mm3 (4.50-5.90); Red Cell Distribution Width 14.9 % (11.6-17.2); White Blood Count 6.8 th/mm3 (4.0-11.0)
[2018-06-08 08:52] LABS: Alanine Aminotransferase 82 U/L (12-78); Albumin 1.7 g/dL (3.4-5.0); Alkaline Phosphatase 82 U/L (45-117); Anion Gap 11 meq/L (5-15); Aspartate Aminotransferase 89 U/L (15-37); Blood Urea Nitrogen 62 mg/dL (7-18); Carbon Dioxide 24.1 meq/L (21.0-32.0); Chloride 103 meq/L (98-107); Creatine Kinase 888 U/L (39-308); Glomerular Filtration Rate 28 mL/min (>89); Glucose,Random 227 mg/dL (74-106); Potassium 3.8 meq/L (3.5-5.1); Sodium 138 meq/L (136-145); Total Protein 6.4 g/dL (6.4-8.2); Vancomycin,Random 16.3 Comment
[2018-06-08] MEDS: Insulin Detemir Inj 1,000 UNIT/10 ML Vial SQ SCH ×2 (08:55→20:19)
[2018-06-08] MEDS: Aspirin 325 MG Tablet PO SCH (08:55)
[2018-06-08] MEDS: Senna/Docusate Sodium 8.6/50 MG Tablet PO SCH ×2 (08:56→20:19)
[2018-06-08] MEDS: Famotidine PF Inj 20 MG/2 ML Vial IV.PUSH SCH ×2 (08:56→20:20)
--- NOTE | 2018-06-08 09:04 | P.PNCC ---
Subjective Subjective Remarks/Hospital Course: 72-year-old morbidly obese male with history of diabetes, multiple medical issues, presents because a hearing care professional found him in the bathroom slumped over. Apparently he was last seen normal this morning around 10 AM, but patient is currently fairly disoriented, not able to answer many questions. EMS found his blood sugars reading high, and his blood pressures were low. His sugars in the emergency department were extremely high, his beta butyric acid is negative. His second troponin was also found to be 27. 06/02 Patient is lying in bed in no acute resp distress. On Insulin drip 5u/hr and Heparin drip. Afebrile, Awake and alert 06/03 Patient is lying in bed in NAD. Afebrile. Off Insulin drip. On Heparin drip. 06/04 Patient is more awake and alert this morning. On Heparin and bicarb drips. Renal function is improving with Cr: 2.37 from 2.79. Afebrile. 06/05 Patient is lying in bed in NAD> On Bicarb and Heparin drips. Renal function is improving with Cr: 2.01 from 2.37. Afebrile 06/06 Patient is lying in bed in NAD. Remains on Heparin drip. Afebrile. 06/07 Patient had Prolonged WA interval 0.35 was initially placed on Glucagon drip now off. Hypotensive this morning with SBP 80's Afebrile. 06/08 Patient is lying in bed in NAD> Off Heparin drip. Renal function is improving with Cr: 2.28 from 2.61 Objective Vital Signs / I&O: Vital Signs 06/07/18 09:00 06/07/18 09:01 06/07/18 09:15 Temperature Pulse Rate 72 72 73 Respiratory Rate 16 18 17 Blood Pressure 129/60 126/57 L Pulse Oximetry 97 97 98 06/07/18 09:30 06/07/18 09:46 06/07/18 10:00 Temperature Pulse Rate 72 74 73 Respiratory Rate 20 16 18 Blood Pressure 118/59 L 104/56 L 104/55 L Pulse Oximetry 97 98 97 06/07/18 10:15 06/07/18 10:30 06/07/18 10:39 Temperature Pulse Rate 74 74 75 Respiratory Rate 16 20 20 Blood Pressure 104/56 L 96/58 L 128/63 Pulse Oximetry 97 100 08/13/18 10:40 06/07/18 10:45 06/07/18 11:00 Temperature Pulse Rate 74 74 72 Respiratory Rate 17 15 18 Blood Pressure 109/55 L 105/53 L 116/55 L Pulse Oximetry 06/07/18 11:15 06/07/18 11:31 06/07/18 11:46 Temperature Pulse Rate 73 74 75 Respiratory Rate 13 19 17 Blood Pressure 117/58 L 106/62 124/58 L Pulse Oximetry 100 06/07/18 12:00 06/07/18 12:30 06/07/18 13:00 Temperature 98.3 F Pulse Rate 74 73 75 Respiratory Rate 14 13 16 Blood Pressure 121/58 L 126/60 127/60 Pulse Oximetry 100 100 100 06/07/18 13:31 06/07/18 14:00 06/07/18 14:01 Temperature Pulse Rate 75 75 74 Respiratory Rate 17 16 15 Blood Pressure 122/55 L 96/51 L Pulse Oximetry 100 98 99 06/07/18 14:30 06/07/18 15:00 06/07/18 15:30 Temperature Pulse Rate 75 74 75 Respiratory Rate 14 16 15 Blood Pressure 105/54 L 102/53 L 108/55 L Pulse Oximetry 99 100 99 06/07/18 16:00 06/07/18 16:01 06/07/18 16:30 Temperature 99.7 F H Pulse Rate 73 73 74 Respiratory Rate 16 16 17 Blood Pressure 106/55 L 105/53 L Pulse Oximetry 96 97 98 06/07/18 17:00 06/07/18 17:30 06/07/18 18:00 Temperature Pulse Rate 72 73 71 Respiratory Rate 14 17 16 Blood Pressure 107/54 L 113/52 L 110/53 L Pulse Oximetry 100 99 99 06/07/18 18:31 06/07/18 19:00 06/07/18 19:31 Temperature Pulse Rate 70 71 71 Respiratory Rate 16 16 17 Blood Pressure 104/51 L 114/55 L 93/51 L Pulse Oximetry 100 100 99 06/07/18 20:00 06/07/18 20:37 06/07/18 20:38 Temperature 97.8 F Pulse Rate 74 74 Respiratory Rate 17 Blood Pressure 100/49 L Pulse Oximetry 100 06/07/18 20:48 06/07/18 21:00 06/07/18 21:01 Temperature Pulse Rate 74 74 74 Respiratory Rate 16 14 17 Blood Pressure 116/55 L Pulse Oximetry 100 100 100 06/07/18 21:31 06/07/18 21:33 06/07/18 22:00 Temperature Pulse Rate 78 77 78 Respiratory Rate 21 19 21 Blood Pressure 80/59 L 129/59 L Pulse Oximetry 100 100 100 06/07/18 22:01 06/07/18 22:30 06/07/18 23:00 Temperature Pulse Rate 77 76 78 Respiratory Rate 15 13 17 Blood Pressure 105/53 L 107/52 L Pulse Oximetry 100 96 89 L 06/07/18 23:13 06/07/18 23:31 06/07/18 23:54 Temperature Pulse Rate 76 75 76 Respiratory Rate 16 16 12 Blood Pressure 116/78 116/56 L Pulse Oximetry 95 95 97 06/08/18 00:00 06/08/18 00:18 06/08/18 00:30 Temperature 99 F Pulse Rate 75 75 Respiratory Rate 16 49 H Blood Pressure 106/60 104/62 Pulse Oximetry 96 99 99 06/08/18 01:00 06/08/18 01:03 06/08/18 01:30 Temperature Pulse Rate 71 71 76 Respiratory Rate 15 19 27 H Blood Pressure 97/49 L 98/52 L Pulse Oximetry 98 98 99 06/08/18 02:00 06/08/18 02:31 06/08/18 03:00 Temperature Pulse Rate 71 69 68 Respiratory Rate 11 L 13 15 Blood Pressure 116/58 L 113/55 L 119/60 Pulse Oximetry 99 99 98 06/08/18 03:31 06/08/18 03:55 06/08/18 04:00 Temperature 98.1 F Pulse Rate 67 67 69 Respiratory Rate 13 14 15 Blood Pressure 107/53 L 120/58 L Pulse Oximetry 98 99 98 06/08/18 04:30 06/08/18 05:00 06/08/18 05:01 Temperature Pulse Rate 70 68 68 Respiratory Rate 11 L 16 17 Blood Pressure 131/63 141/63 H Pulse Oximetry 98 97 97 06/08/18 05:31 06/08/18 06:00 06/08/18 06:01 Temperature Pulse Rate 68 71 69 Respiratory Rate 14 12 15 Blood Pressure 123/58 L 120/55 L Pulse Oximetry 98 99 98 06/08/18 07:31 Temperature Pulse Rate 66 Respiratory Rate 12 Blood Pressure Pulse Oximetry 98 Intake & Output 06/07/18 06/08/18 06/08/18 18:59 06:59 18:59 Intake Total 2950 / 2950 1700 / 1700 Output Total 2000 / 2000 1800 / 1800 Balance 950 / 950 -100 / -100 Weight 176.6 kg Intake: IV 1250 / 1250 900 / 900 Heparin/D5W 25,000 U/250 mL 25, 50 / 50 000 unit In 250 ml @ Per Protocol IV.CONT TITRATE PRN Rx #:[id number] 1/2 Normal Saline Inj 1,000 ML 700 / 700 @ 50 mls/hr IV.CONT .Q20H [facility] Rx#:[id number] Azactam Inj 1,000 MG In NS Inj 200 / 200 200 / 200 100 ML @ 200 mls/hr IV.SIG Q8H [facility] Rx#:[id number] NS Inj 1,000 ML @ Wide Open IV. 1000 / 1000 SIG BOLUS ONE Rx#:[id number] Oral 1700 / 1700 800 / 800 Output: Urine 650 / 650 Urine Amount (Catheter) 1350 / 1350 1800 / 1800 Indwelling Urethral Catheter 1350 / 1350 1800 / 1800 Other: Date of Last Bowel Movement 06/06/18 06/08/18 # Bowel Movements 0 # Incontinent Bowel Movements 1 Result Diagrams: 06/08/18 06:30 06/08/18 04:30 Other Results: Laboratory Results - last 12 hr 06/08/18 06/08/18 06/08/18 00:00 03:51 04:30 WBC RBC Hgb Hct MCV MCH MCHC RDW Plt Count MPV Neut % (Auto) Lymph % (Auto) Carroll % (Auto) Eos % (Auto) Baso % (Auto) Neut # (Auto) Lymph # (Auto) Carroll # (Auto) Eos # (Auto) Baso # (Auto) WBC Differential Differential Comment APTT Sodium 138 Potassium 3.8 Chloride 103 Carbon Dioxide 24.1 Anion Gap 11 BUN 62 H Creatinine 2.28 H Estimated GFR 28 L POC Glucose 234 H 249 H Random Glucose 227 H D Calcium 8.0 L Total Bilirubin 0.3 AST 89 H ALT 82 H Alkaline Phosphatase 82 Total Creatine Kinase 888 H Total Protein 6.4 Albumin 1.7 L Random Vancomycin 16.3 0806/08/18 06/08/18 04:30 06:30 08:41 WBC 6.8 RBC 3.59 L Hgb 10.1 L Hct 30.4 L MCV 84.6 MCH 28.1 MCHC 33.2 RDW 14.9 Plt Count 174 MPV 9.2 Neut % (Auto) 58.3 Lymph % (Auto) 28.4 Carroll % (Auto) 8.5 H Eos % (Auto) 3.9 Baso % (Auto) 0.9 Neut # (Auto) 4.0 Lymph # (Auto) 1.9 Carroll # (Auto) 0.6 Eos # (Auto) 0.3 Baso # (Auto) 0.1 WBC Differential . Differential Comment Auto diff final APTT 26.1 D Sodium Potassium Chloride Carbon Dioxide Anion Gap BUN Creatinine Estimated GFR POC Glucose 211 H Random Glucose Calcium Total Bilirubin AST ALT Alkaline Phosphatase Total Creatine Kinase Total Protein Albumin Random Vancomycin Imaging: Head CT 06/01/18 18:07 CONCLUSION: 1. No acute intracranial abnormality is demonstrated. 2. 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 . Abdomen Ultrasound 06/02/18 00:00 CONCLUSION: 1. Suboptimal examination. 2. Enlarged liver with apparent hepatic steatosis. No focal lesion is identified. 3. The gallbladder is at the upper limits of normal in size with no evidence of cholelithiasis or biliary obstruction. 4. Right kidney appears increased in echogenicity which could indicate medical renal disease. There is no hydronephrosis. 5. Nonvisualization evaluation of the left kidney, pancreas and spleen. Portions of the aorta was not well visualized as well. Chest X-Ray 06/06/18 08:35 CONCLUSION: Persistent left basilar density. Chest CT 06/07/18 00:00 CONCLUSION: 1. Atelectasis and mild consolidation in the left lung base which could represent early pneumonia. 2. Mild cardiomegaly and coronary artery calcifications. Objective Remarks: GENERAL: Patient is 72 yo lying in bed in NAD SKIN: Warm and dry. HEAD: Normocephalic. EYES: No scleral icterus. No injection or drainage. NECK: Supple, trachea midline. No JVD or lymphadenopathy. CARDIOVASCULAR: Regular rate and rhythm without murmurs, gallops, or rubs. RESPIRATORY: Breath sounds equal bilaterally. No accessory muscle use. GASTROINTESTINAL: Abdomen soft, non-tender, nondistended. MUSCULOSKELETAL: No cyanosis, or edema. Neuro: Awake and alert Assessment and Plan - Assessment and Plan Plan: 1)Resp Insuff 2)Hyperglycemic hyperosmolar syndrome 3)AMS- improved 4)Non-STEMI 5)Hypertension 6)Acute kidney injury 7)UTI 8)Morbid obesity 9)Leukocytosis 10)Elevated AST 11)Lactic acidemia 12)Rhabdo Plan Neuro: Awake. Monitor neuro status and avoid any sedatives CT brain: No acute findings, UDS: Negative. EEG showed diffuse encephalopathy, no seizure activity Pulm; Continue with oxygen keep sats >92% Bronchodilators, CT chest: Atelectasis and mild consolidation in the left lung base which could represent early pneumonia. Pulm is following CV: Monitor HR and BP keep MAP>65mmHg Trop trending down Cards is following Dr. Borjas, Echo: Very technically difficult study. unable to asses EF. Continue ASA 325mg daily, Lipitor. lactic acid cleared 1.0 from 5.2 : Monitor renal function, I/O's, avoid nephrotoxins Renal US: No hydronephrosis on right, left kidney not visualized. Suboptimal exam. Renal is following- Dr. Hinkle Cr improving 2.28 from 2.61 today. On 1/2NS@50ml/hr GI: Monitor LFT's, US liver:.Suboptimal examination. Enlarged liver with apparent hepatic steatosis. No focal lesion is identified. Gallbladder is at the upper limits of normal in size with no evidence of cholelithiasis or biliary obstruction. On Pepcid for GI prophylaxis ID: Continue Aztreonam, Vanco, monitor for signs of infections ( Fever, WBC) WBC is trending down Urine cx: Group D Enterococcus 06/01 Blood culture: Staph Haemolyticus 06/02 BC: NGTD Heme: Monitor CBC, coags- Endo: SSI with accuchecks, increase Levemir 12 u BID DVT GI prophylaxis -Teds SCDs -Heparin SQ -IV Pepcid Level 2
[2018-06-08 09:21] LABS: CKMB Percent 0.5 % (0.0-4.0); Creatine Kinase MB 4.3 ng/mL (0.5-3.6)
--- NOTE | 2018-06-08 10:41 | P.PNNP ---
Subjective Interval history: More alert today. Renal function is better. <Genet Hernandez - Last Filed: 06/08/18 10:39> Physical Exam Vital signs: Vital Signs 06/07/18 10:40 06/07/18 10:45 06/07/18 11:00 Temperature Pulse Rate 74 74 72 Respiratory Rate 17 15 18 Blood Pressure 109/55 L 105/53 L 116/55 L Pulse Oximetry 06/07/18 11:15 06/07/18 11:31 06/07/18 11:46 Temperature Pulse Rate 73 74 75 Respiratory Rate 13 19 17 Blood Pressure 117/58 L 106/62 124/58 L Pulse Oximetry 100 06/07/18 12:00 06/07/18 12:30 06/07/18 13:00 Temperature 98.3 F Pulse Rate 74 73 75 Respiratory Rate 14 13 16 Blood Pressure 121/58 L 126/60 127/60 Pulse Oximetry 100 100 100 06/07/18 13:31 06/07/18 14:00 06/07/18 14:01 Temperature Pulse Rate 75 75 74 Respiratory Rate 17 16 15 Blood Pressure 122/55 L 96/51 L Pulse Oximetry 100 98 99 06/07/18 14:30 06/07/18 15:00 06/07/18 15:30 Temperature Pulse Rate 75 74 75 Respiratory Rate 14 16 15 Blood Pressure 105/54 L 102/53 L 108/55 L Pulse Oximetry 99 100 99 06/07/18 16:00 06/07/18 16:01 06/07/18 16:30 Temperature 99.7 F H Pulse Rate 73 73 74 Respiratory Rate 16 16 17 Blood Pressure 106/55 L 105/53 L Pulse Oximetry 96 97 98 06/07/18 17:00 06/07/18 17:30 06/07/18 18:00 Temperature Pulse Rate 72 73 71 Respiratory Rate 14 17 16 Blood Pressure 107/54 L 113/52 L 110/53 L Pulse Oximetry 100 99 99 06/07/18 18:31 06/07/18 19:00 06/07/18 19:31 Temperature Pulse Rate 70 71 71 Respiratory Rate 16 16 17 Blood Pressure 104/51 L 114/55 L 93/51 L Pulse Oximetry 100 100 99 06/07/18 20:00 06/07/18 20:37 06/07/18 20:38 Temperature 97.8 F Pulse Rate 74 74 Respiratory Rate 17 Blood Pressure 100/49 L Pulse Oximetry 100 06/07/18 20:48 06/07/18 21:00 06/07/18 21:01 Temperature Pulse Rate 74 74 74 Respiratory Rate 16 14 17 Blood Pressure 116/55 L Pulse Oximetry 100 100 100 06/07/18 21:31 06/07/18 21:33 06/07/18 22:00 Temperature Pulse Rate 78 77 78 Respiratory Rate 21 19 21 Blood Pressure 80/59 L 129/59 L Pulse Oximetry 100 100 100 06/07/18 22:01 06/07/18 22:30 06/07/18 23:00 Temperature Pulse Rate 77 76 78 Respiratory Rate 15 13 17 Blood Pressure 105/53 L 107/52 L Pulse Oximetry 100 96 89 L 06/07/18 23:13 06/07/18 23:31 06/07/18 23:54 Temperature Pulse Rate 76 75 76 Respiratory Rate 16 16 12 Blood Pressure 116/78 116/56 L Pulse Oximetry 95 95 97 06/08/18 00:00 06/08/18 00:18 06/08/18 00:30 Temperature 99 F Pulse Rate 75 75 Respiratory Rate 16 49 H Blood Pressure 106/60 104/62 Pulse Oximetry 96 99 99 06/08/18 01:00 06/08/18 01:03 06/08/18 01:30 Temperature Pulse Rate 71 71 76 Respiratory Rate 15 19 27 H Blood Pressure 97/49 L 98/52 L Pulse Oximetry 98 98 99 06/08/18 02:00 06/08/18 02:31 06/08/18 03:00 Temperature Pulse Rate 71 69 68 Respiratory Rate 11 L 13 15 Blood Pressure 116/58 L 113/55 L 119/60 Pulse Oximetry 99 99 98 06/08/18 03:31 06/08/18 03:55 06/08/18 04:00 Temperature 98.1 F Pulse Rate 67 67 69 Respiratory Rate 13 14 15 Blood Pressure 107/53 L 120/58 L Pulse Oximetry 98 99 98 06/08/18 04:30 06/08/18 05:00 06/08/18 05:01 Temperature Pulse Rate 70 68 68 Respiratory Rate 11 L 16 17 Blood Pressure 131/63 141/63 H Pulse Oximetry 98 97 97 06/08/18 05:31 06/08/18 06:00 06/08/18 06:01 Temperature Pulse Rate 68 71 69 Respiratory Rate 14 12 15 Blood Pressure 123/58 L 120/55 L Pulse Oximetry 98 99 98 06/08/18 06:31 06/08/18 07:00 06/08/18 07:31 Temperature Pulse Rate 70 69 66 Respiratory Rate 13 18 13 Blood Pressure 103/73 107/69 117/57 L Pulse Oximetry 98 99 98 06/08/18 08:00 06/08/18 08:01 06/08/18 08:31 Temperature 98.1 F Pulse Rate 65 66 68 Respiratory Rate 14 13 14 Blood Pressure 104/51 L 92/50 L Pulse Oximetry 97 97 98 06/08/18 09:00 06/08/18 09:31 Temperature Pulse Rate 71 74 Respiratory Rate 16 15 Blood Pressure 100/56 L 134/63 Pulse Oximetry 97 95 Intake & Output 06/07/18 06/08/18 06/08/18 18:59 06:59 18:59 Intake Total 2950 / 2950 1700 / 1700 Output Total 2000 / 2000 1800 / 1800 Balance 950 / 950 -100 / -100 Weight 176.6 kg Intake: IV 1250 / 1250 900 / 900 Heparin/D5W 25,000 U/250 mL 25, 50 / 50 000 unit In 250 ml @ Per Protocol IV.CONT TITRATE PRN Rx #:[id number] 1/2 Normal Saline Inj 1,000 ML 700 / 700 @ 50 mls/hr IV.CONT .Q20H [facility] Rx#:[id number] Azactam Inj 1,000 MG In NS Inj 200 / 200 200 / 200 100 ML @ 200 mls/hr IV.SIG Q8H [facility] Rx#:[id number] NS Inj 1,000 ML @ Wide Open IV. 1000 / 1000 SIG BOLUS ONE Rx#:[id number] Oral 1700 / 1700 800 / 800 Output: Urine 650 / 650 Urine Amount (Catheter) 1350 / 1350 1800 / 1800 Indwelling Urethral Catheter 1350 / 1350 1800 / 1800 Other: Date of Last Bowel Movement 06/06/18 06/08/18 06/08/18 # Bowel Movements 0 # Incontinent Bowel Movements 1 - Constitutional no acute distress, morbidly obese, chronically ill appearing, cooperative - Routine HEENT Exam Head: Present: normocephalic - Routine Neck Exam Present: supple, full ROM. Absent: JVD - Routine Respiratory Exam Present: CTA bilaterally, diminished air movement. Absent: accessory muscle use - Routine Cardiovascular Exam Present: RRR, S1, S2 - Routine Abdominal Exam Present: soft, normoactive bowel sounds. Absent: guarding - Routine Extremities Exam Present: edema, pulses intact, tenderness. Absent: full ROM - Routine Skin Exam Present: dry, warm, wounds Comments: right arm excoriation right foot/leg wounds - Routine Neurological Exam Present: alert, oriented X3, CN II-XII intact - Detailed Neurological Exam: Coma Scale Eye Opening: Spontaneous Verbal Response: Oriented Motor Response: Obey commands Peck Coma Scale Total: 15 - Routine Psychiatric Exam Present: normal affect, normal thought process - Urinary Catheter Management Indwelling Urethral Catheter Cath placed during this visit: yes Reason for continuing: Hourly intake/output Insertion date: 06/01/18 Insertion time: 18:05 100 Cath placed during this visit: no Reason for continuing: Hourly intake/output <Genet Hernandez - Last Filed: 06/08/18 10:39> Vital signs: Vital Signs 06/08/18 09:31 06/08/18 10:00 06/08/18 10:01 Temperature Pulse Rate 74 76 75 Respiratory Rate 15 13 14 Blood Pressure 134/63 131/82 Pulse Oximetry 95 96 96 06/08/18 10:31 06/08/18 11:00 06/08/18 11:01 Temperature Pulse Rate 75 79 79 Respiratory Rate 22 17 17 Blood Pressure 113/51 L 141/64 H Pulse Oximetry 96 97 97 06/08/18 11:31 06/08/18 12:00 06/08/18 12:01 Temperature 97.7 F Pulse Rate 76 78 78 Respiratory Rate 17 18 17 Blood Pressure 127/62 121/59 L Pulse Oximetry 95 96 97 06/08/18 12:26 06/08/18 12:27 06/08/18 12:31 Temperature Pulse Rate 77 76 Respiratory Rate 17 14 Blood Pressure 120/57 L Pulse Oximetry 95 96 06/08/18 13:00 06/08/18 13:01 06/08/18 13:31 Temperature Pulse Rate 76 75 77 Respiratory Rate 16 18 19 Blood Pressure 105/51 L 133/62 Pulse Oximetry 96 95 93 L 06/08/18 14:00 06/08/18 14:01 06/08/18 14:31 Temperature Pulse Rate 72 72 72 Respiratory Rate 18 17 16 Blood Pressure 113/55 L 114/56 L Pulse Oximetry 98 98 98 06/08/18 15:00 06/08/18 15:01 06/08/18 15:31 Temperature Pulse Rate 80 79 80 Respiratory Rate 17 15 15 Blood Pressure 138/60 115/52 L Pulse Oximetry 96 96 95 06/08/18 16:00 06/08/18 16:01 06/08/18 16:44 Temperature 98.3 F Pulse Rate 79 79 77 Respiratory Rate 21 18 19 Blood Pressure 104/58 L Pulse Oximetry 95 95 06/08/18 17:00 06/08/18 17:01 06/08/18 18:00 Temperature Pulse Rate 82 82 82 Respiratory Rate 17 15 12 Blood Pressure 142/64 H Pulse Oximetry 98 97 96 06/08/18 18:01 06/08/18 19:00 06/08/18 19:01 Temperature Pulse Rate 83 85 84 Respiratory Rate 19 18 18 Blood Pressure 110/69 144/66 H Pulse Oximetry 96 94 L 95 06/08/18 19:54 06/08/18 20:00 06/08/18 20:01 Temperature 98.6 F Pulse Rate 84 84 83 Respiratory Rate 17 16 16 Blood Pressure 147/65 H 147/65 H Pulse Oximetry 98 96 94 L 06/08/18 21:00 06/08/18 21:01 06/08/18 21:52 Temperature Pulse Rate 84 84 Respiratory Rate 19 20 Blood Pressure 129/60 Pulse Oximetry 90 L 88 L 98 06/08/18 22:00 06/08/18 22:01 06/08/18 23:00 Temperature Pulse Rate 80 79 79 Respiratory Rate 16 16 16 Blood Pressure 124/59 L Pulse Oximetry 98 98 99 06/08/18 23:01 06/09/18 00:00 06/09/18 00:01 Temperature 98.3 F Pulse Rate 79 81 81 Respiratory Rate 18 17 12 Blood Pressure 144/64 H 157/65 H 157/65 H Pulse Oximetry 99 98 100 06/09/18 00:06 06/09/18 01:00 06/09/18 01:01 Temperature Pulse Rate 79 79 79 Respiratory Rate 13 15 16 Blood Pressure 138/64 Pulse Oximetry 98 98 98 06/09/18 02:00 06/09/18 02:01 06/09/18 03:00 Temperature Pulse Rate 79 79 80 Respiratory Rate 16 16 11 L Blood Pressure 142/69 H Pulse Oximetry 98 99 100 06/09/18 03:01 06/09/18 03:17 06/09/18 04:00 Temperature 98.5 F Pulse Rate 80 81 82 Respiratory Rate 15 11 L 15 Blood Pressure 157/70 H 154/66 H Pulse Oximetry 100 100 98 06/09/18 04:01 06/09/18 05:00 06/09/18 05:01 Temperature Pulse Rate 83 82 82 Respiratory Rate 13 16 13 Blood Pressure 154/66 H 167/70 H Pulse Oximetry 100 100 100 06/09/18 05:49 06/09/18 06:00 06/09/18 07:00 Temperature Pulse Rate 90 86 84 Respiratory Rate 18 15 14 Blood Pressure 175/72 H 141/67 H 140/64 Pulse Oximetry 96 95 96 06/09/18 07:01 06/09/18 07:39 Temperature Pulse Rate 84 85 Respiratory Rate 13 16 Blood Pressure 140/64 Pulse Oximetry 96 97 Intake & Output 06/08/18 06/09/18 06/09/18 18:59 06:59 18:59 Intake Total 1705 / 1705 100 / 100 100 / 100 Output Total 1550 / 1550 175 / 175 Balance 155 / 155 100 / 100 -75 / -75 Weight 176.6 kg Intake: IV 1045 / 1045 100 / 100 100 / 100 1/2 Normal Saline Inj 1,000 ML 430 / 430 @ 50 mls/hr IV.CONT .Q20H [facility] Rx#:[id number] Azactam Inj 1,000 MG In NS Inj 100 / 100 100 / 100 100 / 100 100 ML @ 200 mls/hr IV.SIG Q8H [facility] Rx#:[id number] Vancomycin Inj 1,500 MG In NS 515 / 515 Inj 500 ML @ 250 mls/hr IV.SIG ONCE ONE Rx#:[id number] Oral 660 / 660 Output: Urine Amount (Catheter) 1550 / 1550 175 / 175 Indwelling Urethral Catheter 1550 / 1550 175 / 175 Other: Date of Last Bowel Movement 06/08/18 06/09/18 - Urinary Catheter Management Indwelling Urethral Catheter Cath placed during this visit: no 100 Cath placed during this visit: no <Mike Hinkle - Last Filed: 06/09/18 09:15> Assessment and Plan - Assessment (1) JOSE (acute kidney injury) Code(s): N17.9 - Acute kidney failure, unspecified Status: Acute Plan: No baseline labs available for comparison, he may have underlying CKD. Renal failure most likely related to renal hypoperfusion secondary to hypotension, NSTEMI; also intravascular volume depletion; and UTI: may have suffered ATN Renal function is improving. Continue maintenance fluids at 50 cc/hr (1/2 NS) Encourage oral intake. He is non oliguric Repeat labs daily, monitor fluid status, urine output, electrolyte profile Avoid hypotension, nephrotoxins (2) HHNC (hyperglycemic hyperosmolar nonketotic coma) Code(s): E11.01 - Type 2 diabetes mellitus with hyperosmolarity with coma Status: Acute Plan: Corrected, on intermittent insulin doses Maintain glucose 140-180 mg/dL (3) NSTEMI (non-ST elevated myocardial infarction) Code(s): I21.4 - Non-ST elevation (NSTEMI) myocardial infarction Status: Acute Plan: On Heparin gtt, cardiology signed off, no plans for intervention given overall health status and comorbid conditions <Genet Hernandez - Last Filed: 06/08/18 10:39> - Assessment (1) JOSE (acute kidney injury) Code(s): N17.9 - Acute kidney failure, unspecified Status: Acute (2) HHNC (hyperglycemic hyperosmolar nonketotic coma) Code(s): E11.01 - Type 2 diabetes mellitus with hyperosmolarity with coma Status: Acute (3) NSTEMI (non-ST elevated myocardial infarction) Code(s): I21.4 - Non-ST elevation (NSTEMI) myocardial infarction Status: Acute - Attending Attestation patient was seen and examined. Agree with above assessment and plan. Renal function is improving. <Mike Hinkle - Last Filed: 06/09/18 09:15>
[2018-06-08] MEDS ORDERED: Vancomycin Inj 1,500 MG in Sodium Chlor 0.9% Inj 500 ML IV.SIG ONE (12:00)
--- NOTE | 2018-06-08 12:40 | P.PN ---
Subjective Interval history: He is alert and breathing better. Used BIPAP last Night. BP not controlled. On O2 2 L Physical Exam Vital signs: Vital Signs 06/07/18 13:00 06/07/18 13:31 06/07/18 14:00 Temperature Pulse Rate 75 75 75 Respiratory Rate 16 17 16 Blood Pressure 127/60 122/55 L Pulse Oximetry 100 100 98 06/07/18 14:01 06/07/18 14:30 06/07/18 15:00 Temperature Pulse Rate 74 75 74 Respiratory Rate 15 14 16 Blood Pressure 96/51 L 105/54 L 102/53 L Pulse Oximetry 99 99 100 06/07/18 15:30 06/07/18 16:00 06/07/18 16:01 Temperature 99.7 F H Pulse Rate 75 73 73 Respiratory Rate 15 16 16 Blood Pressure 108/55 L 106/55 L Pulse Oximetry 99 96 97 06/07/18 16:30 06/07/18 17:00 06/07/18 17:30 Temperature Pulse Rate 74 72 73 Respiratory Rate 17 14 17 Blood Pressure 105/53 L 107/54 L 113/52 L Pulse Oximetry 98 100 99 06/07/18 18:00 06/07/18 18:31 06/07/18 19:00 Temperature Pulse Rate 71 70 71 Respiratory Rate 16 16 16 Blood Pressure 110/53 L 104/51 L 114/55 L Pulse Oximetry 99 100 100 06/07/18 19:31 06/07/18 20:00 06/07/18 20:37 Temperature 97.8 F Pulse Rate 71 74 Respiratory Rate 17 Blood Pressure 93/51 L Pulse Oximetry 99 06/07/18 20:38 06/07/18 20:48 06/07/18 21:00 Temperature Pulse Rate 74 74 74 Respiratory Rate 17 16 14 Blood Pressure 100/49 L Pulse Oximetry 100 100 100 06/07/18 21:01 06/07/18 21:31 06/07/18 21:33 Temperature Pulse Rate 74 78 77 Respiratory Rate 17 21 19 Blood Pressure 116/55 L 80/59 L 129/59 L Pulse Oximetry 100 100 100 06/07/18 22:00 06/07/18 22:01 06/07/18 22:30 Temperature Pulse Rate 78 77 76 Respiratory Rate 21 15 13 Blood Pressure 105/53 L 107/52 L Pulse Oximetry 100 100 96 06/07/18 23:00 06/07/18 23:13 06/07/18 23:31 Temperature Pulse Rate 78 76 75 Respiratory Rate 17 16 16 Blood Pressure 116/78 116/56 L Pulse Oximetry 89 L 95 95 06/07/18 23:54 06/08/18 00:00 06/08/18 00:18 Temperature 99 F Pulse Rate 76 75 Respiratory Rate 12 16 Blood Pressure 106/60 Pulse Oximetry 97 96 99 06/08/18 00:30 06/08/18 01:00 06/08/18 01:03 Temperature Pulse Rate 75 71 71 Respiratory Rate 49 H 15 19 Blood Pressure 104/62 97/49 L Pulse Oximetry 99 98 98 06/08/18 01:30 06/08/18 02:00 06/08/18 02:31 Temperature Pulse Rate 76 71 69 Respiratory Rate 27 H 11 L 13 Blood Pressure 98/52 L 116/58 L 113/55 L Pulse Oximetry 99 99 99 06/08/18 03:00 06/08/18 03:31 06/08/18 03:55 Temperature Pulse Rate 68 67 67 Respiratory Rate 15 13 14 Blood Pressure 119/60 107/53 L Pulse Oximetry 98 98 99 06/08/18 04:00 06/08/18 04:30 06/08/18 05:00 Temperature 98.1 F Pulse Rate 69 70 68 Respiratory Rate 15 11 L 16 Blood Pressure 120/58 L 131/63 Pulse Oximetry 98 98 97 06/08/18 05:01 06/08/18 05:31 06/08/18 06:00 Temperature Pulse Rate 68 68 71 Respiratory Rate 17 14 12 Blood Pressure 141/63 H 123/58 L Pulse Oximetry 97 98 99 06/08/18 06:01 06/08/18 06:31 06/08/18 07:00 Temperature Pulse Rate 69 70 69 Respiratory Rate 15 13 18 Blood Pressure 120/55 L 103/73 107/69 Pulse Oximetry 98 98 99 06/08/18 07:31 06/08/18 08:00 06/08/18 08:01 Temperature 98.1 F Pulse Rate 66 65 66 Respiratory Rate 13 14 13 Blood Pressure 117/57 L 104/51 L Pulse Oximetry 98 97 97 06/08/18 08:31 06/08/18 09:00 06/08/18 09:31 Temperature Pulse Rate 68 71 74 Respiratory Rate 14 16 15 Blood Pressure 92/50 L 100/56 L 134/63 Pulse Oximetry 98 97 95 06/08/18 10:00 06/08/18 10:01 06/08/18 10:31 Temperature Pulse Rate 76 75 75 Respiratory Rate 13 14 22 Blood Pressure 131/82 113/51 L Pulse Oximetry 96 96 96 06/08/18 11:00 06/08/18 11:01 06/08/18 11:31 Temperature Pulse Rate 79 79 76 Respiratory Rate 17 17 17 Blood Pressure 141/64 H 127/62 Pulse Oximetry 97 97 95 06/08/18 12:00 06/08/18 12:01 06/08/18 12:26 Temperature 97.7 F Pulse Rate 78 78 77 Respiratory Rate 18 17 17 Blood Pressure 121/59 L Pulse Oximetry 96 97 06/08/18 12:27 Temperature Pulse Rate Respiratory Rate Blood Pressure Pulse Oximetry 95 Intake & Output 06/07/18 06/08/18 06/08/18 18:59 06:59 18:59 Intake Total 2950 / 2950 1700 / 1700 Output Total 2000 / 1999 1800 / 1800 Balance 950 / 950 -100 / -100 Weight 176.6 kg Intake: IV 1250 / 1250 900 / 900 Heparin/D5W 25,000 U/250 mL 25, 50 / 50 000 unit In 250 ml @ Per Protocol IV.CONT TITRATE PRN Rx #:[id number] 1/2 Normal Saline Inj 1,000 ML 700 / 700 @ 50 mls/hr IV.CONT .Q20H [facility] Rx#:[id number] Azactam Inj 1,000 MG In NS Inj 200 / 200 200 / 200 100 ML @ 200 mls/hr IV.SIG Q8H [facility] Rx#:[id number] NS Inj 1,000 ML @ Wide Open IV. 1000 / 1000 SIG BOLUS ONE Rx#:[id number] Oral 1700 / 1700 800 / 800 Output: Urine 650 / 650 Urine Amount (Catheter) 1350 / 1350 1800 / 1800 Indwelling Urethral Catheter 1350 / 1350 1800 / 1800 Other: Date of Last Bowel Movement 06/06/18 06/08/18 06/08/18 # Bowel Movements 0 # Incontinent Bowel Movements 1 Narrative: GENERAL: This is a well-developed, morbidly obese patient, in no apparent distress. HEENT: Head is atraumatic and normocephalic. Neck is supple without lymphadenopathy and trachea is midline. No JVD or carotid bruits. CARDIOVASCULAR: Regular rate and rhythm without murmurs, gallops, or rubs. RESPIRATORY: Breath sounds equal bilaterally. with wheezes, and basal rales. Chest wall is nontender. No use of accessory muscles. GASTROINTESTINAL: Abdomen is nontender, nondistended. Abdomen soft. No obvious pulsatile mass or bruit. No CVA tenderness. Strong femoral pulses bilaterally. Normal bowel sounds in all quadrants. MUSCULOSKELETAL: Patient is moving upper and lower extremities freely. Has 1 + edema, no Homans sign. Strong pulses in upper and lower extremities. NEUROLOGICAL: Patient is alert and confused at times. No focal deficits and speech is clear. SKIN: No rash and turgor is normal. - Urinary Catheter Management Indwelling Urethral Catheter Cath placed during this visit: yes Reason for continuing: Hourly intake/output Insertion date: 06/01/18 Insertion time: 18:05 100 Cath placed during this visit: no Reason for continuing: Hourly intake/output Results - Labs CBC & Chem 7: 06/08/18 06:30 06/08/18 04:30 Laboratory Results - last 24 hr 06/07/18 06/07/18 06/07/18 06:55 15:51 20:41 WBC RBC Hgb Hct MCV MCH MCHC RDW Plt Count MPV Neut % (Auto) Lymph % (Auto) Mayes % (Auto) Eos % (Auto) Baso % (Auto) Neut # (Auto) Lymph # (Auto) Mayes # (Auto) Eos # (Auto) Baso # (Auto) WBC Differential Differential Comment APTT Puncture Site Left radial Patient Temperature 98.6 O2 Saturation 93 ABG pH 7.37 L ABG pCO2 42 ABG pO2 87 ABG HCO3 24 ABG O2 Content 12.9 ABG Base Excess -0.6 ABG Methemoglobin 1.9 Parker Test Present Hemoglobin 9.8 L Carboxyhemoglobin 1.2 O2 Delivery Device Nasal cannula Liter Flow 2.00 Inspired O2 28 Critical Value No Sodium Potassium Chloride Carbon Dioxide Anion Gap BUN Creatinine Estimated GFR POC Glucose 234 H 207 H Random Glucose Calcium Total Bilirubin AST ALT Alkaline Phosphatase Total Creatine Kinase CK-MB (CK-2) CK-MB (CK-2) % Total Protein Albumin Random Vancomycin 06/08/18 06/08/18 06/08/18 00:00 03:51 04:30 WBC RBC Hgb Hct MCV MCH MCHC RDW Plt Count MPV Neut % (Auto) Lymph % (Auto) Mayes % (Auto) Eos % (Auto) Baso % (Auto) Neut # (Auto) Lymph # (Auto) Mayes # (Auto) Eos # (Auto) Baso # (Auto) WBC Differential Differential Comment APTT Puncture Site Patient Temperature O2 Saturation ABG pH ABG pCO2 ABG pO2 ABG HCO3 ABG O2 Content ABG Base Excess ABG Methemoglobin Parker Test Hemoglobin Carboxyhemoglobin O2 Delivery Device Liter Flow Inspired O2 Critical Value Sodium 138 Potassium 3.8 Chloride 103 Carbon Dioxide 24.1 Anion Gap 11 BUN 62 H Creatinine 2.28 H Estimated GFR 28 L POC Glucose 234 H 249 H Random Glucose 227 H D Calcium 8.0 L Total Bilirubin 0.3 AST 89 H ALT 82 H Alkaline Phosphatase 82 Total Creatine Kinase 888 H CK-MB (CK-2) 4.3 H CK-MB (CK-2) % 0.5 Total Protein 6.4 Albumin 1.7 L Random Vancomycin 16.3 06/08/18 06/08/18 06/08/18 04:30 06:30 08:41 WBC 6.8 RBC 3.59 L Hgb 10.1 L Hct 30.4 L MCV 84.6 MCH 28.1 MCHC 33.2 RDW 14.9 Plt Count 174 MPV 9.2 Neut % (Auto) 58.3 Lymph % (Auto) 28.4 Mayes % (Auto) 8.5 H Eos % (Auto) 3.9 Baso % (Auto) 0.9 Neut # (Auto) 4.0 Lymph # (Auto) 1.9 Mayes # (Auto) 0.6 Eos # (Auto) 0.3 Baso # (Auto) 0.1 WBC Differential . Differential Comment Auto diff final APTT 26.1 D Puncture Site Patient Temperature O2 Saturation ABG pH ABG pCO2 ABG pO2 ABG HCO3 ABG O2 Content ABG Base Excess ABG Methemoglobin Parker Test Hemoglobin Carboxyhemoglobin O2 Delivery Device Liter Flow Inspired O2 Critical Value Sodium Potassium Chloride Carbon Dioxide Anion Gap BUN Creatinine Estimated GFR POC Glucose 211 H Random Glucose Calcium Total Bilirubin AST ALT Alkaline Phosphatase Total Creatine Kinase CK-MB (CK-2) CK-MB (CK-2) % Total Protein Albumin Random Vancomycin 06/08/18 11:34 WBC RBC Hgb Hct MCV MCH MCHC RDW Plt Count MPV Neut % (Auto) Lymph % (Auto) Mayes % (Auto) Eos % (Auto) Baso % (Auto) Neut # (Auto) Lymph # (Auto) Mayes # (Auto) Eos # (Auto) Baso # (Auto) WBC Differential Differential Comment APTT Puncture Site Patient Temperature O2 Saturation ABG pH ABG pCO2 ABG pO2 ABG HCO3 ABG O2 Content ABG Base Excess ABG Methemoglobin Parker Test Hemoglobin Carboxyhemoglobin O2 Delivery Device Liter Flow Inspired O2 Critical Value Sodium Potassium Chloride Carbon Dioxide Anion Gap BUN Creatinine Estimated GFR POC Glucose 231 H Random Glucose Calcium Total Bilirubin AST ALT Alkaline Phosphatase Total Creatine Kinase CK-MB (CK-2) CK-MB (CK-2) % Total Protein Albumin Random Vancomycin Microbiology 06/02/18 17:31 Blood - Peripheral Aerobic Blood Culture - Final No growth in 5 days 06/02/18 17:31 Blood - Peripheral Anaerobic Blood Culture - Final No growth in 5 days 06/02/18 17:25 Blood - Peripheral Aerobic Blood Culture - Final No growth in 5 days 06/02/18 17:25 Blood - Peripheral Anaerobic Blood Culture - Final No growth in 5 days - Imaging Impressions Chest CT 06/07/18 00:00 CONCLUSION: 1. Atelectasis and mild consolidation in the left lung base which could represent early pneumonia. 2. Mild cardiomegaly and coronary artery calcifications. Assessment and Plan - Assessment (1) SHEELA (obstructive sleep apnea) Code(s): G47.33 - Obstructive sleep apnea (adult) (pediatric) Status: Acute (2) COPD (chronic obstructive pulmonary disease) Code(s): J44.9 - Chronic obstructive pulmonary disease, unspecified Status: Acute (3) NSTEMI (non-ST elevated myocardial infarction) Code(s): I21.4 - Non-ST elevation (NSTEMI) myocardial infarction Status: Acute (4) Kidney disease Code(s): N28.9 - Disorder of kidney and ureter, unspecified Status: Acute (5) Morbid obesity Code(s): E66.01 - Morbid (severe) obesity due to excess calories Status: Acute (6) Diabetes Code(s): E11.9 - Type 2 diabetes mellitus without complications Status: Acute (7) Hypertension Code(s): I10 - Essential (primary) hypertension Status: Acute (8) Altered mental state Code(s): R41.82 - Altered mental status, unspecified Status: Acute (9) HHNC (hyperglycemic hyperosmolar nonketotic coma) Code(s): E11.01 - Type 2 diabetes mellitus with hyperosmolarity with coma Status: Acute (10) JOSE (acute kidney injury) Code(s): N17.9 - Acute kidney failure, unspecified Status: Acute - Plan 1. Will leave on O2 3 L. 2. BIPAP at HS if Needed. Needs a Sleep study 3. Duoneb nebs qid. 4. Continue Antibiotics , Azactam /Vancomycin 5. PFT at Bedside. 6. Up with help.IS at bedside q2h 7. CBC,BMP ,CXR.
--- NOTE | 2018-06-08 13:03 | P.PNCA ---
<NusratJena N - Last Filed: 06/08/18 12:59> Subjective Interval history: Pt more alert today. Denies any chest pain, pressure, palpitations, dizziness or shortness of breath. Physical Exam Vital signs: Vital Signs 06/07/18 13:00 06/07/18 13:31 06/07/18 14:00 Temperature Pulse Rate 75 75 75 Respiratory Rate 16 17 16 Blood Pressure 127/60 122/55 L Pulse Oximetry 100 100 98 06/07/18 14:01 06/07/18 14:30 06/07/18 15:00 Temperature Pulse Rate 74 75 74 Respiratory Rate 15 14 16 Blood Pressure 96/51 L 105/54 L 102/53 L Pulse Oximetry 99 99 100 06/07/18 15:30 06/07/18 16:00 06/07/18 16:01 Temperature 99.7 F H Pulse Rate 75 73 73 Respiratory Rate 15 16 16 Blood Pressure 108/55 L 106/55 L Pulse Oximetry 99 96 97 06/07/18 16:30 06/07/18 17:00 06/07/18 17:30 Temperature Pulse Rate 74 72 73 Respiratory Rate 17 14 17 Blood Pressure 105/53 L 107/54 L 113/52 L Pulse Oximetry 98 100 99 06/07/18 18:00 06/07/18 18:31 06/07/18 19:00 Temperature Pulse Rate 71 70 71 Respiratory Rate 16 16 16 Blood Pressure 110/53 L 104/51 L 114/55 L Pulse Oximetry 99 100 100 06/07/18 19:31 06/07/18 20:00 06/07/18 20:37 Temperature 97.8 F Pulse Rate 71 74 Respiratory Rate 17 Blood Pressure 93/51 L Pulse Oximetry 99 06/07/18 20:38 06/07/18 20:48 06/07/18 21:00 Temperature Pulse Rate 74 74 74 Respiratory Rate 17 16 14 Blood Pressure 100/49 L Pulse Oximetry 100 100 100 06/07/18 21:01 06/07/18 21:31 06/07/18 21:33 Temperature Pulse Rate 74 78 77 Respiratory Rate 17 21 19 Blood Pressure 116/55 L 80/59 L 129/59 L Pulse Oximetry 100 100 100 06/07/18 22:00 06/07/18 22:01 06/07/18 22:30 Temperature Pulse Rate 78 77 76 Respiratory Rate 21 15 13 Blood Pressure 105/53 L 107/52 L Pulse Oximetry 100 100 96 06/07/18 23:00 06/07/18 23:13 06/07/18 23:31 Temperature Pulse Rate 78 76 75 Respiratory Rate 17 16 16 Blood Pressure 116/78 116/56 L Pulse Oximetry 89 L 95 95 06/07/18 23:54 06/08/18 00:00 06/08/18 00:18 Temperature 99 F Pulse Rate 76 75 Respiratory Rate 12 16 Blood Pressure 106/60 Pulse Oximetry 97 96 99 06/08/18 00:30 06/08/18 01:00 06/08/18 01:03 Temperature Pulse Rate 75 71 71 Respiratory Rate 49 H 15 19 Blood Pressure 104/62 97/49 L Pulse Oximetry 99 98 98 06/08/18 01:30 06/08/18 02:00 06/08/18 02:31 Temperature Pulse Rate 76 71 69 Respiratory Rate 27 H 11 L 13 Blood Pressure 98/52 L 116/58 L 113/55 L Pulse Oximetry 99 99 99 06/08/18 03:00 06/08/18 03:31 06/08/18 03:55 Temperature Pulse Rate 68 67 67 Respiratory Rate 15 13 14 Blood Pressure 119/60 107/53 L Pulse Oximetry 98 98 99 06/08/18 04:00 06/08/18 04:30 06/08/18 05:00 Temperature 98.1 F Pulse Rate 69 70 68 Respiratory Rate 15 11 L 16 Blood Pressure 120/58 L 131/63 Pulse Oximetry 98 98 97 06/08/18 05:01 06/08/18 05:31 06/08/18 06:00 Temperature Pulse Rate 68 68 71 Respiratory Rate 17 14 12 Blood Pressure 141/63 H 123/58 L Pulse Oximetry 97 98 99 06/08/18 06:01 06/08/18 06:31 06/08/18 07:00 Temperature Pulse Rate 69 70 69 Respiratory Rate 15 13 18 Blood Pressure 120/55 L 103/73 107/69 Pulse Oximetry 98 98 99 06/08/18 07:31 06/08/18 08:00 06/08/18 08:01 Temperature 98.1 F Pulse Rate 66 65 66 Respiratory Rate 13 14 13 Blood Pressure 117/57 L 104/51 L Pulse Oximetry 98 97 97 06/08/18 08:31 06/08/18 09:00 06/08/18 09:31 Temperature Pulse Rate 68 71 74 Respiratory Rate 14 16 15 Blood Pressure 92/50 L 100/56 L 134/63 Pulse Oximetry 98 97 95 06/08/18 10:00 06/08/18 10:01 06/08/18 10:31 Temperature Pulse Rate 76 75 75 Respiratory Rate 13 14 22 Blood Pressure 131/82 113/51 L Pulse Oximetry 96 96 96 06/08/18 11:00 06/08/18 11:01 06/08/18 11:31 Temperature Pulse Rate 79 79 76 Respiratory Rate 17 17 17 Blood Pressure 141/64 H 127/62 Pulse Oximetry 97 97 95 06/08/18 12:00 06/08/18 12:01 06/08/18 12:26 Temperature 97.7 F Pulse Rate 78 78 77 Respiratory Rate 18 17 17 Blood Pressure 121/59 L Pulse Oximetry 96 97 06/08/18 12:27 Temperature Pulse Rate Respiratory Rate Blood Pressure Pulse Oximetry 95 Intake & Output 06/07/18 06/08/18 06/08/18 18:59 06:59 18:59 Intake Total 2950 / 2950 1700 / 1700 Output Total 1999 / 1999 1800 / 1800 Balance 950 / 950 -100 / -100 Weight 176.6 kg Intake: IV 1250 / 1250 900 / 900 Heparin/D5W 25,000 U/250 mL 25, 50 / 50 000 unit In 250 ml @ Per Protocol IV.CONT TITRATE PRN Rx #:[id number] 1/2 Normal Saline Inj 1,000 ML 700 / 700 @ 50 mls/hr IV.CONT .Q20H [facility] Rx#:[id number] Azactam Inj 1,000 MG In NS Inj 200 / 200 200 / 200 100 ML @ 200 mls/hr IV.SIG Q8H [facility] Rx#:[id number] NS Inj 1,000 ML @ Wide Open IV. 1000 / 1000 SIG BOLUS ONE Rx#:[id number] Oral 1700 / 1700 800 / 800 Output: Urine 650 / 650 Urine Amount (Catheter) 1350 / 1350 1800 / 1800 Indwelling Urethral Catheter 1350 / 1350 1800 / 1800 Other: Date of Last Bowel Movement 06/06/18 06/08/18 06/08/18 # Bowel Movements 0 # Incontinent Bowel Movements 1 Narrative: GENERAL: This is a well-nourished, morbidly obese patient, in no apparent distress. Patient speaks in clear complete sentences. Patient is pleasant. HEENT: Head is atraumatic and normocephalic. Neck is supple without lymphadenopathy and trachea is midline. No JVD or carotid bruits. CARDIOVASCULAR: Regular rate and rhythm without murmurs, gallops, or rubs. RESPIRATORY: Clear to auscultation. Breath sounds equal bilaterally. No wheezes , rales, or rhonchi. Chest wall is nontender. No use of accessory muscles. GASTROINTESTINAL: Abdomen is nontender, nondistended. Abdomen soft. No obvious pulsatile mass or bruit. No CVA tenderness. Strong femoral pulses bilaterally. Normal bowel sounds in all quadrants. MUSCULOSKELETAL: Patient is moving upper and lower extremities freely. No calf tenderness or edema, no Homans sign. Strong pulses in upper and lower extremities. NEUROLOGICAL: Patient is alert and oriented. Cranial nerves 2-12 are grossly intact. No focal deficits and speech is clear. SKIN: No rash and turgor is normal. - Urinary Catheter Management Indwelling Urethral Catheter Cath placed during this visit: yes Reason for continuing: Hourly intake/output Insertion date: 06/01/18 Insertion time: 18:05 100 Cath placed during this visit: no Reason for continuing: Hourly intake/output Assessment and Plan - Assessment (1) NSTEMI (non-ST elevated myocardial infarction) Code(s): I21.4 - Non-ST elevation (NSTEMI) myocardial infarction Status: Acute (2) Kidney disease Code(s): N28.9 - Disorder of kidney and ureter, unspecified Status: Acute (3) Morbid obesity Code(s): E66.01 - Morbid (severe) obesity due to excess calories Status: Acute (4) Diabetes Code(s): E11.9 - Type 2 diabetes mellitus without complications Status: Acute (5) Hypertension Code(s): I10 - Essential (primary) hypertension Status: Acute (6) Altered mental state Code(s): R41.82 - Altered mental status, unspecified Status: Acute - Plan Patient is more alert and speaking clearly and answering questions appropriately. Patient is currently being evaluated by neurology. Patient had increase in [place] interval on 12-lead EKG. The benefits of cardiac catheterization do not outweigh the risks due to patient 's multiple comorbidities. Continue conservative management. Continue to monitor patient in the intensive care unit. Will follow patient during hospitalization. The patient was seen and evaluated by Dr. Borjas who participated in care, management and decision-making. <Yariel Borjas - Last Filed: 06/08/18 18:04> Physical Exam Vital signs: Vital Signs 06/07/18 18:31 06/07/18 19:00 06/07/18 19:31 Temperature Pulse Rate 70 71 71 Respiratory Rate 16 16 17 Blood Pressure 104/51 L 114/55 L 93/51 L Pulse Oximetry 100 100 99 06/07/18 20:00 06/07/18 20:37 06/07/18 20:38 Temperature 97.8 F Pulse Rate 74 74 Respiratory Rate 17 Blood Pressure 100/49 L Pulse Oximetry 100 06/07/18 20:48 06/07/18 21:00 06/07/18 21:01 Temperature Pulse Rate 74 74 74 Respiratory Rate 16 14 17 Blood Pressure 116/55 L Pulse Oximetry 100 100 100 06/07/18 21:31 06/07/18 21:33 06/07/18 22:00 Temperature Pulse Rate 78 77 78 Respiratory Rate 21 19 21 Blood Pressure 80/59 L 129/59 L Pulse Oximetry 100 100 100 06/07/18 22:01 06/07/18 22:30 06/07/18 23:00 Temperature Pulse Rate 77 76 78 Respiratory Rate 15 13 17 Blood Pressure 105/53 L 107/52 L Pulse Oximetry 100 96 89 L 06/07/18 23:13 06/07/18 23:31 06/07/18 23:54 Temperature Pulse Rate 76 75 76 Respiratory Rate 16 16 12 Blood Pressure 116/78 116/56 L Pulse Oximetry 95 95 97 06/08/18 00:00 06/08/18 00:18 06/08/18 00:30 Temperature 99 F Pulse Rate 75 75 Respiratory Rate 16 49 H Blood Pressure 106/60 104/62 Pulse Oximetry 96 99 99 06/08/18 01:00 06/08/18 01:03 06/08/18 01:30 Temperature Pulse Rate 71 71 76 Respiratory Rate 15 19 27 H Blood Pressure 97/49 L 98/52 L Pulse Oximetry 98 98 99 06/08/18 02:00 06/08/18 02:31 06/08/18 03:00 Temperature Pulse Rate 71 69 68 Respiratory Rate 11 L 13 15 Blood Pressure 116/58 L 113/55 L 119/60 Pulse Oximetry 99 99 98 06/08/18 03:31 06/08/18 03:55 06/08/18 04:00 Temperature 98.1 F Pulse Rate 67 67 69 Respiratory Rate 13 14 15 Blood Pressure 107/53 L 120/58 L Pulse Oximetry 98 99 98 06/08/18 04:30 06/08/18 05:00 06/08/18 05:01 Temperature Pulse Rate 70 68 68 Respiratory Rate 11 L 16 17 Blood Pressure 131/63 141/63 H Pulse Oximetry 98 97 97 06/08/18 05:31 06/08/18 06:00 06/08/18 06:01 Temperature Pulse Rate 68 71 69 Respiratory Rate 14 12 15 Blood Pressure 123/58 L 120/55 L Pulse Oximetry 98 99 98 06/08/18 06:31 06/08/18 07:00 06/08/18 07:31 Temperature Pulse Rate 70 69 66 Respiratory Rate 13 18 13 Blood Pressure 103/73 107/69 117/57 L Pulse Oximetry 98 99 98 06/08/18 08:00 06/08/18 08:01 06/08/18 08:31 Temperature 98.1 F Pulse Rate 65 66 68 Respiratory Rate 14 13 14 Blood Pressure 104/51 L 92/50 L Pulse Oximetry 97 97 98 06/08/18 09:00 06/08/18 09:31 06/08/18 10:00 Temperature Pulse Rate 71 74 76 Respiratory Rate 16 15 13 Blood Pressure 100/56 L 134/63 Pulse Oximetry 97 95 96 06/08/18 10:01 06/08/18 10:31 06/08/18 11:00 Temperature Pulse Rate 75 75 79 Respiratory Rate 14 22 17 Blood Pressure 131/82 113/51 L Pulse Oximetry 96 96 97 06/08/18 11:01 06/08/18 11:31 06/08/18 12:00 Temperature 97.7 F Pulse Rate 79 76 78 Respiratory Rate 17 17 18 Blood Pressure 141/64 H 127/62 Pulse Oximetry 97 95 96 06/08/18 12:01 06/08/18 12:26 06/08/18 12:27 Temperature Pulse Rate 78 77 Respiratory Rate 17 17 Blood Pressure 121/59 L Pulse Oximetry 97 95 06/08/18 12:31 06/08/18 13:00 06/08/18 13:01 Temperature Pulse Rate 76 76 75 Respiratory Rate 14 16 18 Blood Pressure 120/57 L 105/51 L Pulse Oximetry 96 96 95 06/08/18 13:31 06/08/18 14:00 06/08/18 14:01 Temperature Pulse Rate 77 72 72 Respiratory Rate 19 18 17 Blood Pressure 133/62 113/55 L Pulse Oximetry 93 L 98 98 06/08/18 14:31 06/08/18 15:00 06/08/18 15:01 Temperature Pulse Rate 72 80 79 Respiratory Rate 16 17 15 Blood Pressure 114/56 L 138/60 Pulse Oximetry 98 96 96 06/08/18 15:31 06/08/18 16:00 06/08/18 16:01 Temperature 98.3 F Pulse Rate 80 79 79 Respiratory Rate 15 21 18 Blood Pressure 115/52 L 104/58 L Pulse Oximetry 95 95 95 06/08/18 16:44 06/08/18 17:00 06/08/18 17:01 Temperature Pulse Rate 77 82 82 Respiratory Rate 19 17 15 Blood Pressure 142/64 H Pulse Oximetry 98 97 06/08/18 18:00 Temperature Pulse Rate 82 Respiratory Rate 12 Blood Pressure Pulse Oximetry 96 Intake & Output 06/07/18 06/08/18 06/08/18 18:59 06:59 18:59 Intake Total 2950 / 2950 1700 / 1700 1705 / 1705 Output Total 2000 / 2000 1800 / 1800 1550 / 1550 Balance 950 / 950 -100 / -100 155 / 155 Weight 389 lb 5.381 oz Intake: IV 1250 / 1250 900 / 900 1045 / 1045 Heparin/D5W 25,000 U/250 mL 25, 50 / 50 000 unit In 250 ml @ Per Protocol IV.CONT TITRATE PRN Rx #:[id number] 1/2 Normal Saline Inj 1,000 ML 700 / 700 430 / 430 @ 50 mls/hr IV.CONT .Q20H [facility] Rx#:[id number] Azactam Inj 1,000 MG In NS Inj 200 / 200 200 / 200 100 / 100 100 ML @ 200 mls/hr IV.SIG Q8H [facility] Rx#:[id number] NS Inj 1,000 ML @ Wide Open IV. 1000 / 1000 SIG BOLUS ONE Rx#:[id number] Vancomycin Inj 1,500 MG In NS 515 / 515 Inj 500 ML @ 250 mls/hr IV.SIG ONCE ONE Rx#:[id number] Oral 1700 / 1700 800 / 800 660 / 660 Output: Urine 650 / 650 Urine Amount (Catheter) 1350 / 1350 1800 / 1800 1550 / 1550 Indwelling Urethral Catheter 1350 / 1350 1800 / 1800 1550 / 1550 Other: Date of Last Bowel Movement 06/06/18 06/08/18 06/08/18 # Bowel Movements 0 # Incontinent Bowel Movements 1 - Urinary Catheter Management Indwelling Urethral Catheter Cath placed during this visit: no 100 Cath placed during this visit: no Assessment and Plan - Assessment (1) NSTEMI (non-ST elevated myocardial infarction) Code(s): I21.4 - Non-ST elevation (NSTEMI) myocardial infarction Status: Acute (2) Kidney disease Code(s): N28.9 - Disorder of kidney and ureter, unspecified Status: Acute (3) Morbid obesity Code(s): E66.01 - Morbid (severe) obesity due to excess calories Status: Acute (4) Diabetes Code(s): E11.9 - Type 2 diabetes mellitus without complications Status: Acute (5) Hypertension Code(s): I10 - Essential (primary) hypertension Status: Acute (6) Altered mental state Code(s): R41.82 - Altered mental status, unspecified Status: Acute - Attending Attestation Patient seen and examined. I reviewed and agree with the evaluation and plan as presented. No new cardiac issues. Continue current program.
[2018-06-08] MEDS: Sodium Chloride 0.45 % Inj 1,000 ML IV.CONT SCH (17:25)
[2018-06-08] MEDS: Finasteride 5 MG Tablet PO SCH (20:19)
[2018-06-08] MEDS: Heparin - SQ 10,000 UNITS/ML Vial SQ SCH (20:20)
[2018-06-08] MEDS: Zolpidem Tartrate 5 MG Tablet PO SCH (21:59)
[2018-06-09] MEDS: Gabapentin 300 MG Capsule PO SCH ×4 (00:17→18:13)
[2018-06-09] MEDS: Insulin NovoLIN Regular Correctional Sugar Inj SQ SCH ×6 (00:17→20:38)
[2018-06-09 07:24] LABS: Baso # (Auto) 0.1 th/mm3 (0.0-0.2); Baso % (Auto) 1.5 % (0.0-2.0); Eos # (Auto) 0.3 th/mm3 (0.0-0.4); Eos % (Auto) 4.2 % (0.0-4.0); Hematocrit 30.4 % (39.0-51.0); Lymph # (Auto) 1.7 th/mm3 (1.0-4.8); Lymph % (Auto) 28.9 % (9.0-44.0); Mean Corpuscular HGB Conc 32.9 % (32.0-36.0); Mean Corpuscular Hemoglobin 27.9 pg (27.0-34.0); Mean Corpuscular Volume 84.8 fL (80.0-100.0); Mean Platelet Volume 9.1 fL (7.0-11.0); Mono # (Auto) 0.5 th/mm3 (0.0-0.9); Mono % (Auto) 9.1 % (0.0-8.0); Neut # (Auto) 3.4 th/mm3 (1.8-7.7); Neut % (Auto) 56.3 % (16.0-70.0); Platelet Count 172 th/mm3 (150-450); Red Blood Count 3.58 mil/mm3 (4.50-5.90); Red Cell Distribution Width 15.1 % (11.6-17.2)
[2018-06-09 07:50] LABS: Alanine Aminotransferase 87 U/L (12-78); Albumin 1.8 g/dL (3.4-5.0); Anion Gap 9 meq/L (5-15); Aspartate Aminotransferase 79 U/L (15-37); Blood Urea Nitrogen 54 mg/dL (7-18); Calcium 8.1 mg/dL (8.5-10.1); Carbon Dioxide 24.6 meq/L (21.0-32.0); Chloride 107 meq/L (98-107); Glomerular Filtration Rate 34 mL/min (>89); Glucose,Random 234 mg/dL (74-106); Potassium 4.1 meq/L (3.5-5.1); Sodium 141 meq/L (136-145)
[2018-06-09 07:53] LABS: Alkaline Phosphatase 81 U/L (45-117); Total Protein 6.5 g/dL (6.4-8.2)
[2018-06-09] MEDS: Aspirin 325 MG Tablet PO SCH (08:40)
[2018-06-09] MEDS: Famotidine PF Inj 20 MG/2 ML Vial IV.PUSH SCH ×2 (08:40→20:39)
[2018-06-09] MEDS: Senna/Docusate Sodium 8.6/50 MG Tablet PO SCH ×2 (08:40→20:38)
[2018-06-09] MEDS: Heparin - SQ 10,000 UNITS/ML Vial SQ SCH ×2 (08:41→20:38)
[2018-06-09] MEDS: Insulin Detemir Inj 1,000 UNIT/10 ML Vial SQ SCH ×2 (08:41→20:39)
--- NOTE | 2018-06-09 08:42 | P.PNCC ---
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 Apparently he was last seen normal this morning around 10 AM, but patient is currently fairly disoriented, not able to answer many questions. EMS found his blood sugars reading high, and his blood pressures were low. His sugars in the emergency department were extremely high, his beta butyric acid is negative. His second troponin was also found to be 27. 06/02 Patient is lying in bed in no acute resp distress. On Insulin drip 5u/hr and Heparin drip. Afebrile, Awake and alert 06/03 Patient is lying in bed in NAD. Afebrile. Off Insulin drip. On Heparin drip. 06/04 Patient is more awake and alert this morning. On Heparin and bicarb drips. Renal function is improving with Cr: 2.37 from 2.79. Afebrile. 06/05 Patient is lying in bed in NAD> On Bicarb and Heparin drips. Renal function is improving with Cr: 2.01 from 2.37. Afebrile 06/06 Patient is lying in bed in NAD. Remains on Heparin drip. Afebrile. 06/07 Patient had Prolonged SC interval 0.35 was initially placed on Glucagon drip now off. Hypotensive this morning with SBP 80's Afebrile. 06/08 Patient is lying in bed in NAD> Off Heparin drip. Renal function is improving with Cr: 2.28 from 2.61 06/09 No events overnight. Awake and alert. Renal function is improving with Cr: 1.96 from 2.28. afebrile. Objective Vital Signs / I&O: Vital Signs 06/08/18 09:00 06/08/18 09:31 06/08/18 10:00 Temperature Pulse Rate 71 74 76 Respiratory Rate 16 15 13 Blood Pressure 100/56 L 134/63 Pulse Oximetry 97 95 96 06/08/18 10:01 06/08/18 10:31 06/08/18 11:00 Temperature Pulse Rate 75 75 79 Respiratory Rate 14 22 17 Blood Pressure 131/82 113/51 L Pulse Oximetry 96 96 97 06/08/18 11:01 06/08/18 11:31 06/08/18 12:00 Temperature 97.7 F Pulse Rate 79 76 78 Respiratory Rate 17 17 18 Blood Pressure 141/64 H 127/62 Pulse Oximetry 97 95 96 06/08/18 12:01 06/08/18 12:26 06/08/18 12:27 Temperature Pulse Rate 78 77 Respiratory Rate 17 17 Blood Pressure 121/59 L Pulse Oximetry 97 95 06/08/18 12:31 06/08/18 13:00 06/08/18 13:01 Temperature Pulse Rate 76 76 75 Respiratory Rate 14 16 18 Blood Pressure 120/57 L 105/51 L Pulse Oximetry 96 96 95 06/08/18 13:31 06/08/18 14:00 06/08/18 14:01 Temperature Pulse Rate 77 72 72 Respiratory Rate 19 18 17 Blood Pressure 133/62 113/55 L Pulse Oximetry 93 L 98 98 06/08/18 14:31 06/08/18 15:00 06/08/18 15:01 Temperature Pulse Rate 72 80 79 Respiratory Rate 16 17 15 Blood Pressure 114/56 L 138/60 Pulse Oximetry 98 96 96 06/08/18 15:31 06/08/18 16:00 06/08/18 16:01 Temperature 98.3 F Pulse Rate 80 79 79 Respiratory Rate 15 21 18 Blood Pressure 115/52 L 104/58 L Pulse Oximetry 95 95 95 06/08/18 16:44 06/08/18 17:00 06/08/18 17:01 Temperature Pulse Rate 77 82 82 Respiratory Rate 19 17 15 Blood Pressure 142/64 H Pulse Oximetry 98 97 06/08/18 18:00 06/08/18 18:01 06/08/18 19:00 Temperature Pulse Rate 82 83 85 Respiratory Rate 12 19 18 Blood Pressure 110/69 Pulse Oximetry 96 96 94 L 06/08/18 19:01 06/08/18 19:54 06/08/18 20:00 Temperature 98.6 F Pulse Rate 84 84 84 Respiratory Rate 18 17 16 Blood Pressure 144/66 H 147/65 H Pulse Oximetry 95 98 96 06/08/18 20:01 06/08/18 21:00 06/08/18 21:01 Temperature Pulse Rate 83 84 84 Respiratory Rate 16 19 20 Blood Pressure 147/65 H 129/60 Pulse Oximetry 94 L 90 L 88 L 06/08/18 21:52 06/08/18 22:00 06/08/18 22:01 Temperature Pulse Rate 80 79 Respiratory Rate 16 16 Blood Pressure 124/59 L Pulse Oximetry 98 98 98 06/08/18 23:00 06/08/18 23:01 06/09/18 00:00 Temperature 98.3 F Pulse Rate 79 79 81 Respiratory Rate 16 18 17 Blood Pressure 144/64 H 157/65 H Pulse Oximetry 99 99 98 06/09/18 00:01 06/09/18 00:06 06/09/18 01:00 Temperature Pulse Rate 81 79 79 Respiratory Rate 12 13 15 Blood Pressure 157/65 H Pulse Oximetry 100 98 98 06/09/18 01:01 06/09/18 02:00 06/09/18 02:01 Temperature Pulse Rate 79 79 79 Respiratory Rate 16 16 16 Blood Pressure 138/64 142/69 H Pulse Oximetry 98 98 99 06/09/18 03:00 06/09/18 03:01 06/09/18 03:17 Temperature Pulse Rate 80 80 81 Respiratory Rate 11 L 15 11 L Blood Pressure 157/70 H Pulse Oximetry 100 100 100 06/09/18 04:00 06/09/18 04:01 06/09/18 05:00 Temperature 98.5 F Pulse Rate 82 83 82 Respiratory Rate 15 13 16 Blood Pressure 154/66 H 154/66 H Pulse Oximetry 98 100 100 06/09/18 05:01 06/09/18 05:49 06/09/18 06:00 Temperature Pulse Rate 82 90 86 Respiratory Rate 13 18 15 Blood Pressure 167/70 H 175/72 H 141/67 H Pulse Oximetry 100 96 95 06/09/18 07:00 06/09/18 07:01 06/09/18 07:39 Temperature Pulse Rate 84 84 85 Respiratory Rate 14 13 16 Blood Pressure 140/64 140/64 Pulse Oximetry 96 96 97 Intake & Output 06/08/18 06/09/18 06/09/18 18:59 06:59 18:59 Intake Total 1705 / 1705 100 / 100 100 / 100 Output Total 1550 / 1550 175 / 175 Balance 155 / 155 100 / 100 -75 / -75 Weight 176.6 kg Intake: IV 1045 / 1045 100 / 100 100 / 100 1/2 Normal Saline Inj 1,000 ML 430 / 430 @ 50 mls/hr IV.CONT .Q20H REPLACED BY [facility] Rx#:[id number] Azactam Inj 1,000 MG In NS Inj 100 / 100 100 / 100 100 / 100 100 ML @ 200 mls/hr IV.SIG Q8H REPLACED BY [facility] Rx#:[id number] Vancomycin Inj 1,500 MG In NS 515 / 515 Inj 500 ML @ 250 mls/hr IV.SIG ONCE ONE Rx#:[id number] Oral 660 / 660 Output: Urine Amount (Catheter) 1550 / 1550 175 / 175 Indwelling Urethral Catheter 1550 / 1550 175 / 175 Other: Date of Last Bowel Movement 06/08/18 06/09/18 Result Diagrams: 06/09/18 06:08 06/09/18 06:08 Other Results: Laboratory Results - last 12 hr 06/09/18 06/09/18 06/09/18 00:11 05:06 06:08 WBC 6.0 RBC 3.58 L Hgb 10.0 L Hct 30.4 L MCV 84.8 MCH 27.9 MCHC 32.9 RDW 15.1 Plt Count 172 MPV 9.1 Neut % (Auto) 56.3 Lymph % (Auto) 28.9 [place] % (Auto) 9.1 H Eos % (Auto) 4.2 H Baso % (Auto) 1.5 Neut # (Auto) 3.4 Lymph # (Auto) 1.7 [place] # (Auto) 0.5 Eos # (Auto) 0.3 Baso # (Auto) 0.1 WBC Differential . Differential Comment Auto diff final Sodium Potassium Chloride Carbon Dioxide Anion Gap BUN Creatinine Estimated GFR POC Glucose 268 H 238 H Random Glucose Calcium Total Bilirubin AST ALT Alkaline Phosphatase Total Protein Albumin 06/09/18 06/09/18 06:08 08:04 WBC RBC Hgb Hct MCV MCH MCHC RDW Plt Count MPV Neut % (Auto) Lymph % (Auto) [place] % (Auto) Eos % (Auto) Baso % (Auto) Neut # (Auto) Lymph # (Auto) [place] # (Auto) Eos # (Auto) Baso # (Auto) WBC Differential Differential Comment Sodium 141 Potassium 4.1 Chloride 107 Carbon Dioxide 24.6 Anion Gap 9 BUN 54 H Creatinine 1.96 H Estimated GFR 34 L POC Glucose 237 H Random Glucose 234 H Calcium 8.1 L Total Bilirubin 0.3 AST 79 H ALT 87 H Alkaline Phosphatase 81 Total Protein 6.5 Albumin 1.8 L Imaging: Head CT 06/01/18 18:07 CONCLUSION: 1. No acute intracranial abnormality is demonstrated. 2. 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 . Abdomen Ultrasound 06/02/18 00:00 CONCLUSION: 1. Suboptimal examination. 2. Enlarged liver with apparent hepatic steatosis. No focal lesion is identified. 3. The gallbladder is at the upper limits of normal in size with no evidence of cholelithiasis or biliary obstruction. 4. Right kidney appears increased in echogenicity which could indicate medical renal disease. There is no hydronephrosis. 5. Nonvisualization evaluation of the left kidney, pancreas and spleen. Portions of the aorta was not well visualized as well. Chest X-Ray 06/06/18 08:35 CONCLUSION: Persistent left basilar density. Chest CT 06/07/18 00:00 CONCLUSION: 1. Atelectasis and mild consolidation in the left lung base which could represent early pneumonia. 2. Mild cardiomegaly and coronary artery calcifications. Objective Remarks: GENERAL: Patient is 72 yo lying in bed in NAD SKIN: Warm and dry. HEAD: Normocephalic. EYES: No scleral icterus. No injection or drainage. NECK: Supple, trachea midline. No JVD or lymphadenopathy. CARDIOVASCULAR: Regular rate and rhythm without murmurs, gallops, or rubs. RESPIRATORY: Breath sounds equal bilaterally. No accessory muscle use. GASTROINTESTINAL: Abdomen soft, non-tender, nondistended. MUSCULOSKELETAL: No cyanosis, or edema. Neuro: Awake and alert Assessment and Plan - Assessment and Plan Plan: 1)Resp Insuff 2)Hyperglycemic hyperosmolar syndrome 3)AMS- improved 4)Non-STEMI 5)Hypertension 6)Acute kidney injury 7)UTI 8)Morbid obesity 9)Leukocytosis 10)Elevated AST 11)Lactic acidemia 12)Rhabdo Plan Neuro: Awake. Monitor neuro status and avoid any sedatives CT brain: No acute findings, UDS: Negative. EEG showed diffuse encephalopathy, no seizure activity Pulm; Continue with oxygen keep sats >92% Bronchodilators, CT chest: Atelectasis and mild consolidation in the left lung base which could represent early pneumonia. Pulm is following CV: Monitor HR and BP keep MAP>65mmHg Trop trending down Cards is following Dr. Borjas, Echo: Very technically difficult study. unable to asses EF. Continue ASA 325mg daily, Lipitor. lactic acid cleared 1.0 from 5.2 : Monitor renal function, I/O's, avoid nephrotoxins Renal US: No hydronephrosis on right, left kidney not visualized. Suboptimal exam. Renal is following- Dr. Arin Augustine improving 1.96 from 2.28. On 1/2NS@50ml/hr GI: Monitor LFT's, US liver:.Suboptimal examination. Enlarged liver with apparent hepatic steatosis. No focal lesion is identified. Gallbladder is at the upper limits of normal in size with no evidence of cholelithiasis or biliary obstruction. On Pepcid for GI prophylaxis ID: Continue Aztreonam, d/c Vanco, monitor for signs of infections ( Fever, WBC ) WBC is trending down Urine cx: Group D Enterococcus 06/01 Blood culture: Staph Haemolyticus 06/02 BC: NGTD Heme: Monitor CBC, coags- Endo: SSI with accuchecks, increase Levemir 15 u BID DVT GI prophylaxis -Teds SCDs -Heparin SQ -IV Pepcid Will sign off and transfer care to [facility] Level 2
--- NOTE | 2018-06-09 10:26 | P.PNCA ---
<Jena Silverio N - Last Filed: 06/09/18 10:22> Subjective Interval history: Patient more alert this morning. Patient denies any chest pain, pressure, dizziness, palpitations or shortness of breath. Physical Exam Vital signs: Vital Signs 06/08/18 10:31 06/08/18 11:00 06/08/18 11:01 Temperature Pulse Rate 75 79 79 Respiratory Rate 22 17 17 Blood Pressure 113/51 L 141/64 H Pulse Oximetry 96 97 97 06/08/18 11:31 06/08/18 12:00 06/08/18 12:01 Temperature 97.7 F Pulse Rate 76 78 78 Respiratory Rate 17 18 17 Blood Pressure 127/62 121/59 L Pulse Oximetry 95 96 97 06/08/18 12:26 06/08/18 12:27 06/08/18 12:31 Temperature Pulse Rate 77 76 Respiratory Rate 17 14 Blood Pressure 120/57 L Pulse Oximetry 95 96 06/08/18 13:00 06/08/18 13:01 06/08/18 13:31 Temperature Pulse Rate 76 75 77 Respiratory Rate 16 18 19 Blood Pressure 105/51 L 133/62 Pulse Oximetry 96 95 93 L 06/08/18 14:00 06/08/18 14:01 06/08/18 14:31 Temperature Pulse Rate 72 72 72 Respiratory Rate 18 17 16 Blood Pressure 113/55 L 114/56 L Pulse Oximetry 98 98 98 06/08/18 15:00 06/08/18 15:01 06/08/18 15:31 Temperature Pulse Rate 80 79 80 Respiratory Rate 17 15 15 Blood Pressure 138/60 115/52 L Pulse Oximetry 96 96 95 06/08/18 16:00 06/08/18 16:01 06/08/18 16:44 Temperature 98.3 F Pulse Rate 79 79 77 Respiratory Rate 21 18 19 Blood Pressure 104/58 L Pulse Oximetry 95 95 06/08/18 17:00 06/08/18 17:01 06/08/18 18:00 Temperature Pulse Rate 82 82 82 Respiratory Rate 17 15 12 Blood Pressure 142/64 H Pulse Oximetry 98 97 96 06/08/18 18:01 06/08/18 19:00 06/08/18 19:01 Temperature Pulse Rate 83 85 84 Respiratory Rate 19 18 18 Blood Pressure 110/69 144/66 H Pulse Oximetry 96 94 L 95 06/08/18 19:54 06/08/18 20:00 06/08/18 20:01 Temperature 98.6 F Pulse Rate 84 84 83 Respiratory Rate 17 16 16 Blood Pressure 147/65 H 147/65 H Pulse Oximetry 98 96 94 L 06/08/18 21:00 06/08/18 21:01 06/08/18 21:52 Temperature Pulse Rate 84 84 Respiratory Rate 19 20 Blood Pressure 129/60 Pulse Oximetry 90 L 88 L 98 06/08/18 22:00 06/08/18 22:01 06/08/18 23:00 Temperature Pulse Rate 80 79 79 Respiratory Rate 16 16 16 Blood Pressure 124/59 L Pulse Oximetry 98 98 99 06/08/18 23:01 06/09/18 00:00 06/09/18 00:01 Temperature 98.3 F Pulse Rate 79 81 81 Respiratory Rate 18 17 12 Blood Pressure 144/64 H 157/65 H 157/65 H Pulse Oximetry 99 98 100 06/09/18 00:06 06/09/18 01:00 06/09/18 01:01 Temperature Pulse Rate 79 79 79 Respiratory Rate 13 15 16 Blood Pressure 138/64 Pulse Oximetry 98 98 98 06/09/18 02:00 06/09/18 02:01 06/09/18 03:00 Temperature Pulse Rate 79 79 80 Respiratory Rate 16 16 11 L Blood Pressure 142/69 H Pulse Oximetry 98 99 100 06/09/18 03:01 06/09/18 03:17 06/09/18 04:00 Temperature 98.5 F Pulse Rate 80 81 82 Respiratory Rate 15 11 L 15 Blood Pressure 157/70 H 154/66 H Pulse Oximetry 100 100 98 06/09/18 04:01 06/09/18 05:00 06/09/18 05:01 Temperature Pulse Rate 83 82 82 Respiratory Rate 13 16 13 Blood Pressure 154/66 H 167/70 H Pulse Oximetry 100 100 100 06/09/18 05:49 06/09/18 06:00 06/09/18 07:00 Temperature Pulse Rate 90 86 84 Respiratory Rate 18 15 14 Blood Pressure 175/72 H 141/67 H 140/64 Pulse Oximetry 96 95 96 06/09/18 07:01 06/09/18 07:39 06/09/18 08:00 Temperature 99.0 F Pulse Rate 84 85 87 Respiratory Rate 13 16 12 Blood Pressure 140/64 128/61 Pulse Oximetry 96 97 96 06/09/18 09:00 Temperature Pulse Rate 90 Respiratory Rate 14 Blood Pressure 114/57 L Pulse Oximetry 95 Intake & Output 06/08/18 06/09/18 06/09/18 18:59 06:59 18:59 Intake Total 1705 / 1705 100 / 100 100 / 100 Output Total 1550 / 1550 175 / 175 Balance 155 / 155 100 / 100 -75 / -75 Weight 176.6 kg Intake: IV 1045 / 1045 100 / 100 100 / 100 1/2 Normal Saline Inj 1,000 ML 430 / 430 @ 50 mls/hr IV.CONT .Q20H [facility] Rx#:[id number] Azactam Inj 1,000 MG In NS Inj 100 / 100 100 / 100 100 / 100 100 ML @ 200 mls/hr IV.SIG Q8H [facility] Rx#:[id number] Vancomycin Inj 1,500 MG In NS 515 / 515 Inj 500 ML @ 250 mls/hr IV.SIG ONCE ONE Rx#:[id number] Oral 660 / 660 Output: Urine Amount (Catheter) 1550 / 1550 175 / 175 Indwelling Urethral Catheter 1550 / 1550 175 / 175 Other: Date of Last Bowel Movement 06/08/18 06/09/18 06/09/18 Narrative: GENERAL: This is a well-nourished, morbidly obese patient, in no apparent distress. Patient speaks in clear complete sentences. Patient is pleasant. HEENT: Head is atraumatic and normocephalic. Neck is supple without lymphadenopathy and trachea is midline. No JVD or carotid bruits. CARDIOVASCULAR: Regular rate and rhythm without murmurs, gallops, or rubs. RESPIRATORY: Clear to auscultation. Breath sounds equal bilaterally. No wheezes , rales, or rhonchi. Chest wall is nontender. No use of accessory muscles. GASTROINTESTINAL: Abdomen is nontender, nondistended. Abdomen soft. No obvious pulsatile mass or bruit. No CVA tenderness. Strong femoral pulses bilaterally. Normal bowel sounds in all quadrants. MUSCULOSKELETAL: Patient is moving upper and lower extremities freely. No calf tenderness or edema, no Homans sign. Strong pulses in upper and lower extremities. NEUROLOGICAL: Patient is alert and oriented. Cranial nerves 2-12 are grossly intact. No focal deficits and speech is clear. SKIN: No rash and turgor is normal. - Urinary Catheter Management Indwelling Urethral Catheter Cath placed during this visit: yes Reason for continuing: Hourly intake/output Insertion date: 06/01/18 Insertion time: 18:05 100 Cath placed during this visit: no Reason for continuing: Hourly intake/output Assessment and Plan - Assessment (1) NSTEMI (non-ST elevated myocardial infarction) Code(s): I21.4 - Non-ST elevation (NSTEMI) myocardial infarction Status: Acute (2) Kidney disease Code(s): N28.9 - Disorder of kidney and ureter, unspecified Status: Acute (3) Morbid obesity Code(s): E66.01 - Morbid (severe) obesity due to excess calories Status: Acute (4) Diabetes Code(s): E11.9 - Type 2 diabetes mellitus without complications Status: Acute (5) Hypertension Code(s): I10 - Essential (primary) hypertension Status: Acute (6) Altered mental state Code(s): R41.82 - Altered mental status, unspecified Status: Acute - Plan Patient is more alert and speaking clearly and answering questions appropriately. Patient remains stable. Increase activity with physical therapy. Continue conservative management. Continue to monitor patient in the intensive care unit. Will follow patient during hospitalization. The patient was seen and evaluated by Dr. Borjas who participated in care, management and decision-making. <Yariel Borjas - Last Filed: 06/09/18 16:06> Physical Exam Vital signs: Vital Signs 06/08/18 16:44 06/08/18 17:00 06/08/18 17:01 Temperature Pulse Rate 77 82 82 Respiratory Rate 19 17 15 Blood Pressure 142/64 H Pulse Oximetry 98 97 06/08/18 18:00 06/08/18 18:01 06/08/18 19:00 Temperature Pulse Rate 82 83 85 Respiratory Rate 12 19 18 Blood Pressure 110/69 Pulse Oximetry 96 96 94 L 06/08/18 19:01 06/08/18 19:54 06/08/18 20:00 Temperature 98.6 F Pulse Rate 84 84 84 Respiratory Rate 18 17 16 Blood Pressure 144/66 H 147/65 H Pulse Oximetry 95 98 96 06/08/18 20:01 06/08/18 21:00 08/14/18 21:01 Temperature Pulse Rate 83 84 84 Respiratory Rate 16 19 20 Blood Pressure 147/65 H 129/60 Pulse Oximetry 94 L 90 L 88 L 06/08/18 21:52 06/08/18 22:00 06/08/18 22:01 Temperature Pulse Rate 80 79 Respiratory Rate 16 16 Blood Pressure 124/59 L Pulse Oximetry 98 98 98 06/08/18 23:00 06/08/18 23:01 06/09/18 00:00 Temperature 98.3 F Pulse Rate 79 79 81 Respiratory Rate 16 18 17 Blood Pressure 144/64 H 157/65 H Pulse Oximetry 99 99 98 06/09/18 00:01 06/09/18 00:06 06/09/18 01:00 Temperature Pulse Rate 81 79 79 Respiratory Rate 12 13 15 Blood Pressure 157/65 H Pulse Oximetry 100 98 98 06/09/18 01:01 06/09/18 02:00 06/09/18 02:01 Temperature Pulse Rate 79 79 79 Respiratory Rate 16 16 16 Blood Pressure 138/64 142/69 H Pulse Oximetry 98 98 99 06/09/18 03:00 06/09/18 03:01 06/09/18 03:17 Temperature Pulse Rate 80 80 81 Respiratory Rate 11 L 15 11 L Blood Pressure 157/70 H Pulse Oximetry 100 100 100 06/09/18 04:00 06/09/18 04:01 06/09/18 05:00 Temperature 98.5 F Pulse Rate 82 83 82 Respiratory Rate 15 13 16 Blood Pressure 154/66 H 154/66 H Pulse Oximetry 98 100 100 06/09/18 05:01 06/09/18 05:49 06/09/18 06:00 Temperature Pulse Rate 82 90 86 Respiratory Rate 13 18 15 Blood Pressure 167/70 H 175/72 H 141/67 H Pulse Oximetry 100 96 95 06/09/18 07:00 06/09/18 07:01 06/09/18 07:39 Temperature Pulse Rate 84 84 85 Respiratory Rate 14 13 16 Blood Pressure 140/64 140/64 Pulse Oximetry 96 96 97 06/09/18 08:00 06/09/18 09:00 06/09/18 10:00 Temperature 99.0 F Pulse Rate 87 90 98 H Respiratory Rate 12 14 25 H Blood Pressure 128/61 114/57 L 129/60 Pulse Oximetry 96 95 98 06/09/18 10:01 06/09/18 11:00 06/09/18 11:42 Temperature Pulse Rate 96 H 91 H 91 H Respiratory Rate 16 12 17 Blood Pressure 129/60 133/63 Pulse Oximetry 98 97 06/09/18 12:00 06/09/18 12:01 06/09/18 13:00 Temperature 98.3 F Pulse Rate 96 H 96 H 98 H Respiratory Rate 18 16 19 Blood Pressure 127/60 127/60 Pulse Oximetry 97 98 96 06/09/18 13:01 06/09/18 14:00 06/09/18 14:01 Temperature Pulse Rate 98 H 96 H 96 H Respiratory Rate 16 18 18 Blood Pressure 126/57 L 119/58 L 119/58 L Pulse Oximetry 96 94 L 94 L 06/09/18 14:59 06/09/18 15:00 Temperature Pulse Rate 99 H 98 H Respiratory Rate 20 16 Blood Pressure 125/58 L Pulse Oximetry 95 Intake & Output 06/08/18 06/09/18 06/09/18 18:59 06:59 18:59 Intake Total 1705 / 1705 100 / 100 100 / 100 Output Total 1550 / 1550 175 / 175 Balance 155 / 155 100 / 100 -75 / -75 Weight 389 lb 5.381 oz Intake: IV 1045 / 1045 100 / 100 100 / 100 1/2 Normal Saline Inj 1,000 ML 430 / 430 @ 50 mls/hr IV.CONT .Q20H [facility] Rx#:[id number] Azactam Inj 1,000 MG In NS Inj 100 / 100 100 / 100 100 / 100 100 ML @ 200 mls/hr IV.SIG Q8H [facility] Rx#:[id number] Vancomycin Inj 1,500 MG In NS 515 / 515 Inj 500 ML @ 250 mls/hr IV.SIG ONCE ONE Rx#:[id number] Oral 660 / 660 Output: Urine Amount (Catheter) 1550 / 1550 175 / 175 Indwelling Urethral Catheter 1550 / 1550 175 / 175 Other: Date of Last Bowel Movement 06/08/18 06/09/18 06/09/18 - Urinary Catheter Management Indwelling Urethral Catheter Cath placed during this visit: no 100 Cath placed during this visit: no Assessment and Plan - Assessment (1) NSTEMI (non-ST elevated myocardial infarction) Code(s): I21.4 - Non-ST elevation (NSTEMI) myocardial infarction Status: Acute (2) Kidney disease Code(s): N28.9 - Disorder of kidney and ureter, unspecified Status: Acute (3) Morbid obesity Code(s): E66.01 - Morbid (severe) obesity due to excess calories Status: Acute (4) Diabetes Code(s): E11.9 - Type 2 diabetes mellitus without complications Status: Acute (5) Hypertension Code(s): I10 - Essential (primary) hypertension Status: Acute (6) Altered mental state Code(s): R41.82 - Altered mental status, unspecified Status: Acute - Attending Attestation Patient seen and examined. I reviewed and agree with the evaluation and plan as presented. Continue ICU care. Rhythm stable. Increase activity, PT.
--- NOTE | 2018-06-09 12:22 | P.PN ---
Subjective Interval history: Alert and Off O2 . Sats 97. Used BIPAP .Good output. Needs PT and OT. Renal Profile better. Physical Exam Vital signs: Vital Signs 06/08/18 12:26 06/08/18 12:27 06/08/18 12:31 Temperature Pulse Rate 77 76 Respiratory Rate 17 14 Blood Pressure 120/57 L Pulse Oximetry 95 96 06/08/18 13:00 06/08/18 13:01 06/08/18 13:31 Temperature Pulse Rate 76 75 77 Respiratory Rate 16 18 19 Blood Pressure 105/51 L 133/62 Pulse Oximetry 96 95 93 L 06/08/18 14:00 06/08/18 14:01 06/08/18 14:31 Temperature Pulse Rate 72 72 72 Respiratory Rate 18 17 16 Blood Pressure 113/55 L 114/56 L Pulse Oximetry 98 98 98 06/08/18 15:00 06/08/18 15:01 06/08/18 15:31 Temperature Pulse Rate 80 79 80 Respiratory Rate 17 15 15 Blood Pressure 138/60 115/52 L Pulse Oximetry 96 96 95 06/08/18 16:00 06/08/18 16:01 06/08/18 16:44 Temperature 98.3 F Pulse Rate 79 79 77 Respiratory Rate 21 18 19 Blood Pressure 104/58 L Pulse Oximetry 95 95 06/08/18 17:00 06/08/18 17:01 06/08/18 18:00 Temperature Pulse Rate 82 82 82 Respiratory Rate 17 15 12 Blood Pressure 142/64 H Pulse Oximetry 98 97 96 06/08/18 18:01 06/08/18 19:00 06/08/18 19:01 Temperature Pulse Rate 83 85 84 Respiratory Rate 19 18 18 Blood Pressure 110/69 144/66 H Pulse Oximetry 96 94 L 95 06/08/18 19:54 06/08/18 20:00 06/08/18 20:01 Temperature 98.6 F Pulse Rate 84 84 83 Respiratory Rate 17 16 16 Blood Pressure 147/65 H 147/65 H Pulse Oximetry 98 96 94 L 06/08/18 21:00 06/08/18 21:01 06/08/18 21:52 Temperature Pulse Rate 84 84 Respiratory Rate 19 20 Blood Pressure 129/60 Pulse Oximetry 90 L 88 L 98 06/08/18 22:00 06/08/18 22:01 06/08/18 23:00 Temperature Pulse Rate 80 79 79 Respiratory Rate 16 16 16 Blood Pressure 124/59 L Pulse Oximetry 98 98 99 06/08/18 23:01 06/09/18 00:00 06/09/18 00:01 Temperature 98.3 F Pulse Rate 79 81 81 Respiratory Rate 18 17 12 Blood Pressure 144/64 H 157/65 H 157/65 H Pulse Oximetry 99 98 100 06/09/18 00:06 06/09/18 01:00 06/09/18 01:01 Temperature Pulse Rate 79 79 79 Respiratory Rate 13 15 16 Blood Pressure 138/64 Pulse Oximetry 98 98 98 06/09/18 02:00 06/09/18 02:01 06/09/18 03:00 Temperature Pulse Rate 79 79 80 Respiratory Rate 16 16 11 L Blood Pressure 142/69 H Pulse Oximetry 98 99 100 06/09/18 03:01 06/09/18 03:17 06/09/18 04:00 Temperature 98.5 F Pulse Rate 80 81 82 Respiratory Rate 15 11 L 15 Blood Pressure 157/70 H 154/66 H Pulse Oximetry 100 100 98 06/09/18 04:01 06/09/18 05:00 06/09/18 05:01 Temperature Pulse Rate 83 82 82 Respiratory Rate 13 16 13 Blood Pressure 154/66 H 167/70 H Pulse Oximetry 100 100 100 06/09/18 05:49 06/09/18 06:00 06/09/18 07:00 Temperature Pulse Rate 90 86 84 Respiratory Rate 18 15 14 Blood Pressure 175/72 H 141/67 H 140/64 Pulse Oximetry 96 95 96 06/09/18 07:01 06/09/18 07:39 06/09/18 08:00 Temperature 99.0 F Pulse Rate 84 85 87 Respiratory Rate 13 16 12 Blood Pressure 140/64 128/61 Pulse Oximetry 96 97 96 06/09/18 09:00 06/09/18 10:00 06/09/18 10:01 Temperature Pulse Rate 90 98 H 96 H Respiratory Rate 14 25 H 16 Blood Pressure 114/57 L 129/60 129/60 Pulse Oximetry 95 98 98 06/09/18 11:00 06/09/18 11:42 06/09/18 12:00 Temperature 98.3 F Pulse Rate 91 H 91 H 96 H Respiratory Rate 12 17 18 Blood Pressure 133/63 127/60 Pulse Oximetry 97 97 06/09/18 12:01 Temperature Pulse Rate 96 H Respiratory Rate 16 Blood Pressure 127/60 Pulse Oximetry 98 Intake & Output 06/08/18 06/09/18 06/09/18 18:59 06:59 18:59 Intake Total 1705 / 1705 100 / 100 100 / 100 Output Total 1550 / 1550 175 / 175 Balance 155 / 155 100 / 100 -75 / -75 Weight 176.6 kg Intake: IV 1045 / 1045 100 / 100 100 / 100 1/2 Normal Saline Inj 1,000 ML 430 / 430 @ 50 mls/hr IV.CONT .Q20H [facility] Rx#:[id number] Azactam Inj 1,000 MG In NS Inj 100 / 100 100 / 100 100 / 100 100 ML @ 200 mls/hr IV.SIG Q8H [facility] Rx#:[id number] Vancomycin Inj 1,500 MG In NS 515 / 515 Inj 500 ML @ 250 mls/hr IV.SIG ONCE ONE Rx#:[id number] Oral 660 / 660 Output: Urine Amount (Catheter) 1550 / 1550 175 / 175 Indwelling Urethral Catheter 1550 / 1550 175 / 175 Other: Date of Last Bowel Movement 06/08/18 06/09/18 06/09/18 Narrative: GENERAL: This is a morbidly obese patient, in no apparent distress. Oriented and talking. HEENT: Head is atraumatic and normocephalic. Neck is supple without lymphadenopathy and trachea is midline. No JVD or carotid bruits. CARDIOVASCULAR: Regular rate and rhythm without murmurs, gallops, or rubs. RESPIRATORY: Breath sounds equal bilaterally.Occ wheezes,upper chest. Chest wall is nontender. No use of accessory muscles. GASTROINTESTINAL: Abdomen is nontender, nondistended. Abdomen soft. No obvious pulsatile mass or bruit. No CVA tenderness. Strong femoral pulses bilaterally. Normal bowel sounds in all quadrants. MUSCULOSKELETAL: Patient is moving upper and lower extremities freely. No calf tenderness but has 1 + edema, no Homans sign. NEUROLOGICAL: Patient is alert and oriented. Cranial nerves 2-12 are grossly intact. No focal deficits and speech is clear. SKIN: No rash and turgor is normal. - Urinary Catheter Management Indwelling Urethral Catheter Cath placed during this visit: yes Reason for continuing: Hourly intake/output Insertion date: 06/01/18 Insertion time: 18:05 100 Cath placed during this visit: no Reason for continuing: Hourly intake/output Results - Labs CBC & Chem 7: 06/09/18 06:08 06/09/18 06:08 Laboratory Results - last 24 hr 06/08/18 06/08/18 06/09/18 16:03 20:12 00:11 WBC RBC Hgb Hct MCV MCH MCHC RDW Plt Count MPV Neut % (Auto) Lymph % (Auto) [place] % (Auto) Eos % (Auto) Baso % (Auto) Neut # (Auto) Lymph # (Auto) [place] # (Auto) Eos # (Auto) Baso # (Auto) WBC Differential Differential Comment Sodium Potassium Chloride Carbon Dioxide Anion Gap BUN Creatinine Estimated GFR POC Glucose 247 H 284 H 268 H Random Glucose Calcium Total Bilirubin AST ALT Alkaline Phosphatase Total Protein Albumin 06/09/18 06/09/18 06/09/18 05:06 06:08 06:08 WBC 6.0 RBC 3.58 L Hgb 10.0 L Hct 30.4 L MCV 84.8 MCH 27.9 MCHC 32.9 RDW 15.1 Plt Count 172 MPV 9.1 Neut % (Auto) 56.3 Lymph % (Auto) 28.9 [place] % (Auto) 9.1 H Eos % (Auto) 4.2 H Baso % (Auto) 1.5 Neut # (Auto) 3.4 Lymph # (Auto) 1.7 [place] # (Auto) 0.5 Eos # (Auto) 0.3 Baso # (Auto) 0.1 WBC Differential . Differential Comment Auto diff final Sodium 141 Potassium 4.1 Chloride 107 Carbon Dioxide 24.6 Anion Gap 9 BUN 54 H Creatinine 1.96 H Estimated GFR 34 L POC Glucose 238 H Random Glucose 234 H Calcium 8.1 L Total Bilirubin 0.3 AST 79 H ALT 87 H Alkaline Phosphatase 81 Total Protein 6.5 Albumin 1.8 L 06/09/18 06/09/18 08:04 11:39 WBC RBC Hgb Hct MCV MCH MCHC RDW Plt Count MPV Neut % (Auto) Lymph % (Auto) [place] % (Auto) Eos % (Auto) Baso % (Auto) Neut # (Auto) Lymph # (Auto) [place] # (Auto) Eos # (Auto) Baso # (Auto) WBC Differential Differential Comment Sodium Potassium Chloride Carbon Dioxide Anion Gap BUN Creatinine Estimated GFR POC Glucose 237 H 257 H Random Glucose Calcium Total Bilirubin AST ALT Alkaline Phosphatase Total Protein Albumin Assessment and Plan - Assessment (1) SHEELA (obstructive sleep apnea) Code(s): G47.33 - Obstructive sleep apnea (adult) (pediatric) Status: Acute (2) COPD (chronic obstructive pulmonary disease) Code(s): J44.9 - Chronic obstructive pulmonary disease, unspecified Status: Acute (3) NSTEMI (non-ST elevated myocardial infarction) Code(s): I21.4 - Non-ST elevation (NSTEMI) myocardial infarction Status: Acute (4) Kidney disease Code(s): N28.9 - Disorder of kidney and ureter, unspecified Status: Acute (5) Morbid obesity Code(s): E66.01 - Morbid (severe) obesity due to excess calories Status: Acute (6) Diabetes Code(s): E11.9 - Type 2 diabetes mellitus without complications Status: Acute (7) Hypertension Code(s): I10 - Essential (primary) hypertension Status: Acute (8) Altered mental state Code(s): R41.82 - Altered mental status, unspecified Status: Acute (9) HHNC (hyperglycemic hyperosmolar nonketotic coma) Code(s): E11.01 - Type 2 diabetes mellitus with hyperosmolarity with coma Status: Acute (10) JOSE (acute kidney injury) Code(s): N17.9 - Acute kidney failure, unspecified Status: Acute - Plan 1. Will D/C O2 2. Needs a Sleep study as OP 3. Duoneb nebs qid. 4. Continue Antibiotics , Azactam. 5. Labs in am 6. Up with help and PT.IS at bedside q2h 7. Transfer to tele
--- NOTE | 2018-06-09 12:32 | P.PNNP ---
Subjective Interval history: Working with therapy. Much more awake and alert today. Renal function is better. <Genet Hernandez - Last Filed: 06/09/18 12:26> Physical Exam Vital signs: Vital Signs 06/08/18 12:27 06/08/18 12:31 06/08/18 13:00 Temperature Pulse Rate 76 76 Respiratory Rate 14 16 Blood Pressure 120/57 L Pulse Oximetry 95 96 96 06/08/18 13:01 06/08/18 13:31 06/08/18 14:00 Temperature Pulse Rate 75 77 72 Respiratory Rate 18 19 18 Blood Pressure 105/51 L 133/62 Pulse Oximetry 95 93 L 98 06/08/18 14:01 06/08/18 14:31 06/08/18 15:00 Temperature Pulse Rate 72 72 80 Respiratory Rate 17 16 17 Blood Pressure 113/55 L 114/56 L Pulse Oximetry 98 98 96 06/08/18 15:01 06/08/18 15:31 06/08/18 16:00 Temperature 98.3 F Pulse Rate 79 80 79 Respiratory Rate 15 15 21 Blood Pressure 138/60 115/52 L Pulse Oximetry 96 95 95 06/08/18 16:01 06/08/18 16:44 06/08/18 17:00 Temperature Pulse Rate 79 77 82 Respiratory Rate 18 19 17 Blood Pressure 104/58 L Pulse Oximetry 95 98 06/08/18 17:01 06/08/18 18:00 06/08/18 18:01 Temperature Pulse Rate 82 82 83 Respiratory Rate 15 12 19 Blood Pressure 142/64 H 110/69 Pulse Oximetry 97 96 96 06/08/18 19:00 06/08/18 19:01 06/08/18 19:54 Temperature Pulse Rate 85 84 84 Respiratory Rate 18 18 17 Blood Pressure 144/66 H Pulse Oximetry 94 L 95 98 06/08/18 20:00 06/08/18 20:01 06/08/18 21:00 Temperature 98.6 F Pulse Rate 84 83 84 Respiratory Rate 16 16 19 Blood Pressure 147/65 H 147/65 H Pulse Oximetry 96 94 L 90 L 06/08/18 21:01 06/08/18 21:52 06/08/18 22:00 Temperature Pulse Rate 84 80 Respiratory Rate 20 16 Blood Pressure 129/60 Pulse Oximetry 88 L 98 98 06/08/18 22:01 06/08/18 23:00 06/08/18 23:01 Temperature Pulse Rate 79 79 79 Respiratory Rate 16 16 18 Blood Pressure 124/59 L 144/64 H Pulse Oximetry 98 99 99 06/09/18 00:00 06/09/18 00:01 06/09/18 00:06 Temperature 98.3 F Pulse Rate 81 81 79 Respiratory Rate 17 12 13 Blood Pressure 157/65 H 157/65 H Pulse Oximetry 98 100 98 06/09/18 01:00 06/09/18 01:01 06/09/18 02:00 Temperature Pulse Rate 79 79 79 Respiratory Rate 15 16 16 Blood Pressure 138/64 Pulse Oximetry 98 98 98 06/09/18 02:01 06/09/18 03:00 06/09/18 03:01 Temperature Pulse Rate 79 80 80 Respiratory Rate 16 11 L 15 Blood Pressure 142/69 H 157/70 H Pulse Oximetry 99 100 100 06/09/18 03:17 06/09/18 04:00 06/09/18 04:01 Temperature 98.5 F Pulse Rate 81 82 83 Respiratory Rate 11 L 15 13 Blood Pressure 154/66 H 154/66 H Pulse Oximetry 100 98 100 06/09/18 05:00 06/09/18 05:01 06/09/18 05:49 Temperature Pulse Rate 82 82 90 Respiratory Rate 16 13 18 Blood Pressure 167/70 H 175/72 H Pulse Oximetry 100 100 96 06/09/18 06:00 06/09/18 07:00 06/09/18 07:01 Temperature Pulse Rate 86 84 84 Respiratory Rate 15 14 13 Blood Pressure 141/67 H 140/64 140/64 Pulse Oximetry 95 96 96 06/09/18 07:39 06/09/18 08:00 06/09/18 09:00 Temperature 99.0 F Pulse Rate 85 87 90 Respiratory Rate 16 12 14 Blood Pressure 128/61 114/57 L Pulse Oximetry 97 96 95 06/09/18 10:00 06/09/18 10:01 06/09/18 11:00 Temperature Pulse Rate 98 H 96 H 91 H Respiratory Rate 25 H 16 12 Blood Pressure 129/60 129/60 133/63 Pulse Oximetry 98 98 97 06/09/18 11:42 06/09/18 12:00 06/09/18 12:01 Temperature 98.3 F Pulse Rate 91 H 96 H 96 H Respiratory Rate 17 18 16 Blood Pressure 127/60 127/60 Pulse Oximetry 97 98 Intake & Output 06/08/18 06/09/18 06/09/18 18:59 06:59 18:59 Intake Total 1705 / 1705 100 / 100 100 / 100 Output Total 1550 / 1550 175 / 175 Balance 155 / 155 100 / 100 -75 / -75 Weight 176.6 kg Intake: IV 1045 / 1045 100 / 100 100 / 100 1/2 Normal Saline Inj 1,000 ML 430 / 430 @ 50 mls/hr IV.CONT .Q20H [facility] Rx#:[id number] Azactam Inj 1,000 MG In NS Inj 100 / 100 100 / 100 100 / 100 100 ML @ 200 mls/hr IV.SIG Q8H [facility] Rx#:[id number] Vancomycin Inj 1,500 MG In NS 515 / 515 Inj 500 ML @ 250 mls/hr IV.SIG ONCE ONE Rx#:[id number] Oral 660 / 660 Output: Urine Amount (Catheter) 1550 / 1550 175 / 175 Indwelling Urethral Catheter 1550 / 1550 175 / 175 Other: Date of Last Bowel Movement 06/08/18 06/09/18 06/09/18 - Constitutional no acute distress, morbidly obese, combative - Routine HEENT Exam Head: Present: normocephalic - Routine Neck Exam Present: supple, full ROM. Absent: JVD - Routine Respiratory Exam Present: accessory muscle use - Routine Cardiovascular Exam Present: RRR, S1, S2 - Routine Abdominal Exam Present: soft, normoactive bowel sounds - Routine Extremities Exam Present: full ROM. Absent: edema - Routine Skin Exam Present: intact, dry, warm - Routine Neurological Exam Present: alert, oriented X3, CN II-XII intact - Detailed Neurological Exam: Coma Scale Eye Opening: Spontaneous Verbal Response: Oriented Motor Response: Obey commands Miguel Coma Scale Total: 15 - Urinary Catheter Management Indwelling Urethral Catheter Cath placed during this visit: yes Reason for continuing: Hourly intake/output Insertion date: 06/01/18 Insertion time: 18:05 100 Cath placed during this visit: no Reason for continuing: Hourly intake/output <Genet Hernandez - Last Filed: 06/09/18 12:26> Vital signs: Vital Signs 08/15/18 08:00 06/09/18 09:00 06/09/18 09:30 Temperature 99.0 F Pulse Rate 87 90 Respiratory Rate 12 14 Blood Pressure 128/61 114/57 L Pulse Oximetry 96 95 97 06/09/18 10:00 06/09/18 10:01 06/09/18 11:00 Temperature Pulse Rate 98 H 96 H 91 H Respiratory Rate 25 H 16 12 Blood Pressure 129/60 129/60 133/63 Pulse Oximetry 98 98 97 06/09/18 11:42 06/09/18 12:00 06/09/18 12:01 Temperature 98.3 F Pulse Rate 91 H 96 H 96 H Respiratory Rate 17 18 16 Blood Pressure 127/60 127/60 Pulse Oximetry 97 98 06/09/18 13:00 06/09/18 13:01 06/09/18 14:00 Temperature Pulse Rate 98 H 98 H 96 H Respiratory Rate 19 16 18 Blood Pressure 126/57 L 119/58 L Pulse Oximetry 96 96 94 L 06/09/18 14:01 06/09/18 14:59 06/09/18 15:00 Temperature Pulse Rate 96 H 99 H 98 H Respiratory Rate 18 20 16 Blood Pressure 119/58 L 125/58 L Pulse Oximetry 94 L 95 06/09/18 16:00 06/09/18 17:00 06/09/18 18:00 Temperature 99.3 F Pulse Rate 104 H 101 H 96 H Respiratory Rate 24 23 27 H Blood Pressure 131/85 117/54 L 118/56 L Pulse Oximetry 94 L 91 L 95 06/09/18 19:00 06/09/18 19:44 06/09/18 20:00 Temperature 98.9 F Pulse Rate 96 H 95 H 102 H Respiratory Rate 24 17 26 H Blood Pressure 117/56 L 145/65 H Pulse Oximetry 94 L 94 L 95 06/09/18 20:01 06/09/18 21:00 06/09/18 21:01 Temperature Pulse Rate 101 H 100 H 100 H Respiratory Rate 18 22 20 Blood Pressure 145/65 H 134/61 Pulse Oximetry 95 93 L 93 L 06/09/18 22:00 06/09/18 22:59 06/09/18 23:00 Temperature Pulse Rate 101 H 94 H Respiratory Rate 20 19 Blood Pressure 131/61 Pulse Oximetry 93 L 97 96 06/09/18 23:01 06/10/18 00:00 06/10/18 00:01 Temperature 98.7 F Pulse Rate 94 H 90 90 Respiratory Rate 15 19 20 Blood Pressure 138/62 142/65 H 142/65 H Pulse Oximetry 95 97 97 06/10/18 00:32 06/10/18 01:00 06/10/18 01:01 Temperature Pulse Rate 87 91 H 91 H Respiratory Rate 21 19 19 Blood Pressure 138/60 Pulse Oximetry 96 96 06/10/18 02:00 06/10/18 02:01 06/10/18 03:00 Temperature Pulse Rate 89 89 87 Respiratory Rate 18 18 17 Blood Pressure 125/62 Pulse Oximetry 96 96 96 06/10/18 03:01 06/10/18 03:39 06/10/18 04:00 Temperature 98.6 F Pulse Rate 91 H 90 93 H Respiratory Rate 14 16 29 H Blood Pressure 140/65 138/84 Pulse Oximetry 97 94 L 06/10/18 04:01 06/10/18 05:00 06/10/18 05:01 Temperature Pulse Rate 94 H 93 H 93 H Respiratory Rate 21 19 19 Blood Pressure 138/84 152/68 H Pulse Oximetry 94 L 94 L 93 L 06/10/18 06:00 06/10/18 06:01 06/10/18 07:00 Temperature Pulse Rate 92 H 91 H 89 Respiratory Rate 21 20 20 Blood Pressure 169/72 H Pulse Oximetry 94 L 94 L 96 06/10/18 07:01 Temperature Pulse Rate 90 Respiratory Rate 22 Blood Pressure 156/73 H Pulse Oximetry 95 Intake & Output 06/09/18 06/10/18 06/10/18 18:59 06:59 18:59 Intake Total 800 / 800 200 / 200 480 / 480 Output Total 2175 / 2175 Balance -1375 / -1375 200 / 200 480 / 480 Weight 176.6 kg Intake: IV 200 / 200 200 / 200 Azactam Inj 1,000 MG In NS Inj 200 / 200 200 / 200 100 ML @ 200 mls/hr IV.SIG Q8H [facility] Rx#:[id number] Oral 600 / 600 480 / 480 Output: Urine Amount (Catheter) 2174 / 2175 Indwelling Urethral Catheter 2174 / 2174 Other: Date of Last Bowel Movement 06/09/18 06/10/18 06/10/18 # Incontinent Bowel Movements 0 1 - Urinary Catheter Management Indwelling Urethral Catheter Cath placed during this visit: no 100 Cath placed during this visit: no <Mike Hinkle - Last Filed: 06/10/18 07:45> Assessment and Plan - Assessment (1) JOSE (acute kidney injury) Code(s): N17.9 - Acute kidney failure, unspecified Status: Acute Plan: No baseline labs available for comparison, he may have underlying CKD. Renal failure most likely related to renal hypoperfusion secondary to hypotension, NSTEMI; also intravascular volume depletion; and UTI: may have suffered ATN Improving renal function. Stop IVF, tolerating oral fluids. Remove Greer catheter. Continue to monitor urine output. He is non oliguric Repeat labs daily Avoid hypotension, nephrotoxins (2) HHNC (hyperglycemic hyperosmolar nonketotic coma) Code(s): E11.01 - Type 2 diabetes mellitus with hyperosmolarity with coma Status: Acute Plan: Corrected, on intermittent insulin doses Maintain glucose 140-180 mg/dL (3) NSTEMI (non-ST elevated myocardial infarction) Code(s): I21.4 - Non-ST elevation (NSTEMI) myocardial infarction Status: Acute Plan: On Heparin gtt, cardiology signed off, no plans for intervention given overall health status and comorbid conditions - Plan We will sign off at this time. Please call us if needed. <Genet Hernandez - Last Filed: 06/09/18 12:26> - Assessment (1) JOSE (acute kidney injury) Code(s): N17.9 - Acute kidney failure, unspecified Status: Acute (2) HHNC (hyperglycemic hyperosmolar nonketotic coma) Code(s): E11.01 - Type 2 diabetes mellitus with hyperosmolarity with coma Status: Acute (3) NSTEMI (non-ST elevated myocardial infarction) Code(s): I21.4 - Non-ST elevation (NSTEMI) myocardial infarction Status: Acute - Attending Attestation patient was seen and examined. Agree with above assessment and plan. <Mike Hinkle - Last Filed: 06/10/18 07:45>
[2018-06-09] MEDS: Finasteride 5 MG Tablet PO SCH (20:38)
[2018-06-10] MEDS: Insulin NovoLIN Regular Correctional Sugar Inj SQ SCH ×6 (00:59→20:21)
[2018-06-10] MEDS: Gabapentin 300 MG Capsule PO SCH ×5 (01:00→23:34)
[2018-06-10] MEDS: Zolpidem Tartrate 5 MG Tablet PO SCH ×2 (01:00→22:31)
[2018-06-10 05:47] LABS: Baso # (Auto) 0.1 th/mm3 (0.0-0.2); Baso % (Auto) 1.2 % (0.0-2.0); Eos # (Auto) 0.2 th/mm3 (0.0-0.4); Hematocrit 28.7 % (39.0-51.0); Hemoglobin 9.5 gm/dL (13.0-17.0); Lymph % (Auto) 31.3 % (9.0-44.0); Mean Corpuscular HGB Conc 33.1 % (32.0-36.0); Mean Corpuscular Hemoglobin 28.5 pg (27.0-34.0); Mean Corpuscular Volume 85.9 fL (80.0-100.0); Mean Platelet Volume 9.3 fL (7.0-11.0); Mono # (Auto) 0.6 th/mm3 (0.0-0.9); Mono % (Auto) 9.3 % (0.0-8.0); Neut # (Auto) 3.6 th/mm3 (1.8-7.7); Neut % (Auto) 55.2 % (16.0-70.0); Platelet Count 177 th/mm3 (150-450); Red Blood Count 3.34 mil/mm3 (4.50-5.90); Red Cell Distribution Width 15.1 % (11.6-17.2); White Blood Count 6.5 th/mm3 (4.0-11.0)
[2018-06-10 06:14] LABS: Albumin 1.7 g/dL (3.4-5.0); Anion Gap 9 meq/L (5-15); Aspartate Aminotransferase 54 U/L (15-37); Blood Urea Nitrogen 50 mg/dL (7-18); Carbon Dioxide 23.5 meq/L (21.0-32.0); Chloride 106 meq/L (98-107); Glomerular Filtration Rate 36 mL/min (>89); Glucose,Random 274 mg/dL (74-106); Potassium 3.8 meq/L (3.5-5.1); Sodium 138 meq/L (136-145)
[2018-06-10 06:15] LABS: Alanine Aminotransferase 69 U/L (12-78)
[2018-06-10 06:17] LABS: Alkaline Phosphatase 76 U/L (45-117); Total Protein 6.4 g/dL (6.4-8.2); Vancomycin,Random 15.7 Comment
[2018-06-10 06:18] LABS: ABG Base Excess -0.8 mmol/L (-2-2); ABG PCO2 39 mmHg (38-42); ABG PO2 65 mmHG (61-120)
[2018-06-10] MEDS: Heparin - SQ 10,000 UNITS/ML Vial SQ SCH ×2 (08:29→20:23)
[2018-06-10] MEDS: Famotidine PF Inj 20 MG/2 ML Vial IV.PUSH SCH ×2 (08:29→20:22)
--- NOTE | 2018-06-10 08:29 | P.PN ---
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 Apparently he was last seen normal this morning around 10 AM, but patient is currently fairly disoriented, not able to answer many questions. EMS found his blood sugars reading high, and his blood pressures were low. His sugars in the emergency department were extremely high, his beta butyric acid is negative. His second troponin was also found to be 27. 06/02 Patient is lying in bed in no acute resp distress. On Insulin drip 5u/hr and Heparin drip. Afebrile, Awake and alert 06/03 Patient is lying in bed in NAD. Afebrile. Off Insulin drip. On Heparin drip. 06/04 Patient is more awake and alert this morning. On Heparin and bicarb drips. Renal function is improving with Cr: 2.37 from 2.79. Afebrile. 06/05 Patient is lying in bed in NAD> On Bicarb and Heparin drips. Renal function is improving with Cr: 2.01 from 2.37. Afebrile 06/06 Patient is lying in bed in NAD. Remains on Heparin drip. Afebrile. 06/07 Patient had Prolonged NC interval 0.35 was initially placed on Glucagon drip now off. Hypotensive this morning with SBP 80's Afebrile. 06/08 Patient is lying in bed in NAD> Off Heparin drip. Renal function is improving with Cr: 2.28 from 2.61 06/09 No events overnight. Awake and alert. Renal function is improving with Cr: 1.96 from 2.28. afebrile. Hospitalist Notes: 06/10: Physical Exam Vital signs: Vital Signs 06/09/18 09:00 06/09/18 09:30 06/09/18 10:00 Temperature Pulse Rate 90 98 H Respiratory Rate 14 25 H Blood Pressure 114/57 L 129/60 Pulse Oximetry 95 97 98 06/09/18 10:01 06/09/18 11:00 06/09/18 11:42 Temperature Pulse Rate 96 H 91 H 91 H Respiratory Rate 16 12 17 Blood Pressure 129/60 133/63 Pulse Oximetry 98 97 06/09/18 12:00 06/09/18 12:01 06/09/18 13:00 Temperature 98.3 F Pulse Rate 96 H 96 H 98 H Respiratory Rate 18 16 19 Blood Pressure 127/60 127/60 Pulse Oximetry 97 98 96 06/09/18 13:01 06/09/18 14:00 06/09/18 14:01 Temperature Pulse Rate 98 H 96 H 96 H Respiratory Rate 16 18 18 Blood Pressure 126/57 L 119/58 L 119/58 L Pulse Oximetry 96 94 L 94 L 06/09/18 14:59 06/09/18 15:00 06/09/18 16:00 Temperature 99.3 F Pulse Rate 99 H 98 H 104 H Respiratory Rate 20 16 24 Blood Pressure 125/58 L 131/85 Pulse Oximetry 95 94 L 06/09/18 17:00 06/09/18 18:00 06/09/18 19:00 Temperature Pulse Rate 101 H 96 H 96 H Respiratory Rate 23 27 H 24 Blood Pressure 117/54 L 118/56 L 117/56 L Pulse Oximetry 91 L 95 94 L 06/09/18 19:44 06/09/18 20:00 06/09/18 20:01 Temperature 98.9 F Pulse Rate 95 H 102 H 101 H Respiratory Rate 17 26 H 18 Blood Pressure 145/65 H 145/65 H Pulse Oximetry 94 L 95 95 06/09/18 21:00 06/09/18 21:01 06/09/18 22:00 Temperature Pulse Rate 100 H 100 H 101 H Respiratory Rate 22 20 20 Blood Pressure 134/61 131/61 Pulse Oximetry 93 L 93 L 93 L 06/09/18 22:59 06/09/18 23:00 06/09/18 23:01 Temperature Pulse Rate 94 H 94 H Respiratory Rate 19 15 Blood Pressure 138/62 Pulse Oximetry 97 96 95 06/10/18 00:00 06/10/18 00:01 06/10/18 00:32 Temperature 98.7 F Pulse Rate 90 90 87 Respiratory Rate 19 20 21 Blood Pressure 142/65 H 142/65 H Pulse Oximetry 97 97 06/10/18 01:00 06/10/18 01:01 06/10/18 02:00 Temperature Pulse Rate 91 H 91 H 89 Respiratory Rate 19 19 18 Blood Pressure 138/60 Pulse Oximetry 96 96 96 06/10/18 02:01 06/10/18 03:00 06/10/18 03:01 Temperature Pulse Rate 89 87 91 H Respiratory Rate 18 17 14 Blood Pressure 125/62 140/65 Pulse Oximetry 96 96 97 06/10/18 03:39 06/10/18 04:00 06/10/18 04:01 Temperature 98.6 F Pulse Rate 90 93 H 94 H Respiratory Rate 16 29 H 21 Blood Pressure 138/84 138/84 Pulse Oximetry 94 L 94 L 06/10/18 05:00 06/10/18 05:01 06/10/18 06:00 Temperature Pulse Rate 93 H 93 H 92 H Respiratory Rate 19 19 21 Blood Pressure 152/68 H Pulse Oximetry 94 L 93 L 94 L 06/10/18 06:01 06/10/18 07:00 06/10/18 07:01 Temperature Pulse Rate 91 H 89 90 Respiratory Rate 20 20 22 Blood Pressure 169/72 H 156/73 H Pulse Oximetry 94 L 96 95 Intake & Output 06/09/18 06/10/18 06/10/18 18:59 06:59 18:59 Intake Total 800 / 800 200 / 200 480 / 480 Output Total 2175 / 2175 Balance -1375 / -1375 200 / 200 480 / 480 Weight 176.6 kg Intake: IV 200 / 200 200 / 200 Azactam Inj 1,000 MG In NS Inj 200 / 200 200 / 200 100 ML @ 200 mls/hr IV.SIG Q8H [facility] Rx#:[id number] Oral 600 / 600 480 / 480 Output: Urine Amount (Catheter) 2175 / 2175 Indwelling Urethral Catheter 2175 / 2175 Other: Date of Last Bowel Movement 06/09/18 06/10/18 06/10/18 # Incontinent Bowel Movements 0 1 Narrative: GENERAL: No acute distress, Morbid Obese patient. SKIN: Warm and dry. HEAD: Normocephalic. EYES: No scleral icterus. No injection or drainage. NECK: Supple, trachea midline. No JVD or lymphadenopathy. CARDIOVASCULAR: Regular rate and rhythm without murmurs, gallops, or rubs. RESPIRATORY: Breath sounds equal bilaterally. No accessory muscle use. GASTROINTESTINAL: Abdomen soft, non-tender, nondistended. MUSCULOSKELETAL: No cyanosis, edema 2+ Neuro: Awake and alert - Urinary Catheter Management Indwelling Urethral Catheter Cath placed during this visit: yes Reason for continuing: Hourly intake/output Insertion date: 06/01/18 Insertion time: 18:05 100 Cath placed during this visit: no Reason for continuing: Hourly intake/output Results - Labs CBC & Chem 7: 06/10/18 05:05 06/10/18 05:05 Laboratory Results - last 24 hr 06/09/18 06/09/18 06/09/18 11:39 15:51 20:05 WBC RBC Hgb Hct MCV MCH MCHC RDW Plt Count MPV Neut % (Auto) Lymph % (Auto) Wolfe % (Auto) Eos % (Auto) Baso % (Auto) Neut # (Auto) Lymph # (Auto) Wolfe # (Auto) Eos # (Auto) Baso # (Auto) WBC Differential Differential Comment Puncture Site Patient Temperature O2 Saturation ABG pH ABG pCO2 ABG pO2 ABG HCO3 ABG O2 Content ABG Base Excess ABG Methemoglobin Parker Test Hemoglobin Carboxyhemoglobin Inspired O2 Critical Value Sodium Potassium Chloride Carbon Dioxide Anion Gap BUN Creatinine Estimated GFR POC Glucose 257 H 274 H 263 H Random Glucose Calcium Total Bilirubin AST ALT Alkaline Phosphatase Total Protein Albumin Random Vancomycin 06/10/18 06/10/18 06/10/18 00:56 04:56 05:05 WBC 6.5 RBC 3.34 L Hgb 9.5 L Hct 28.7 L MCV 85.9 MCH 28.5 MCHC 33.1 RDW 15.1 Plt Count 177 MPV 9.3 Neut % (Auto) 55.2 Lymph % (Auto) 31.3 Wolfe % (Auto) 9.3 H Eos % (Auto) 3.0 Baso % (Auto) 1.2 Neut # (Auto) 3.6 Lymph # (Auto) 2.0 Wolfe # (Auto) 0.6 Eos # (Auto) 0.2 Baso # (Auto) 0.1 WBC Differential . Differential Comment Auto diff final Puncture Site Patient Temperature O2 Saturation ABG pH ABG pCO2 ABG pO2 ABG HCO3 ABG O2 Content ABG Base Excess ABG Methemoglobin Parker Test Hemoglobin Carboxyhemoglobin Inspired O2 Critical Value Sodium Potassium Chloride Carbon Dioxide Anion Gap BUN Creatinine Estimated GFR POC Glucose 275 H 267 H Random Glucose Calcium Total Bilirubin AST ALT Alkaline Phosphatase Total Protein Albumin Random Vancomycin 06/10/18 06/10/18 06/10/18 05:05 06:12 08:14 WBC RBC Hgb Hct MCV MCH MCHC RDW Plt Count MPV Neut % (Auto) Lymph % (Auto) Wolfe % (Auto) Eos % (Auto) Baso % (Auto) Neut # (Auto) Lymph # (Auto) Wolfe # (Auto) Eos # (Auto) Baso # (Auto) WBC Differential Differential Comment Puncture Site Right radial Patient Temperature 98.6 O2 Saturation 90 ABG pH 7.39 ABG pCO2 39 ABG pO2 65 ABG HCO3 23 ABG O2 Content 12.7 ABG Base Excess -0.8 ABG Methemoglobin 1.2 Parker Test Present Hemoglobin 10.0 L Carboxyhemoglobin 0.0 Inspired O2 21 Critical Value No Sodium 138 Potassium 3.8 Chloride 106 Carbon Dioxide 23.5 Anion Gap 9 BUN 50 H Creatinine 1.83 H Estimated GFR 36 L POC Glucose 273 H Random Glucose 274 H Calcium 8.0 L Total Bilirubin 0.3 AST 54 H ALT 69 Alkaline Phosphatase 76 Total Protein 6.4 Albumin 1.7 L Random Vancomycin 15.7 - Imaging Head CT 06/01/18 18:07 CONCLUSION: 1. No acute intracranial abnormality is demonstrated. 2. 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 . Abdomen Ultrasound 06/02/18 00:00 CONCLUSION: 1. Suboptimal examination. 2. Enlarged liver with apparent hepatic steatosis. No focal lesion is identified. 3. The gallbladder is at the upper limits of normal in size with no evidence of cholelithiasis or biliary obstruction. 4. Right kidney appears increased in echogenicity which could indicate medical renal disease. There is no hydronephrosis. 5. Nonvisualization evaluation of the left kidney, pancreas and spleen. Portions of the aorta was not well visualized as well. Chest X-Ray 06/06/18 08:35 CONCLUSION: Persistent left basilar density. Chest CT 06/07/18 00:00 CONCLUSION: 1. Atelectasis and mild consolidation in the left lung base which could represent early pneumonia. 2. Mild cardiomegaly and coronary artery calcifications. Assessment and Plan - Plan 1. Respiratory Insufficiency On Oxygen to keep Oxygen saturation above 92%. Bronchodilator, Mucolytic, Incentive spirometry, CT chest: Atelectasis and mild consolidation in the left lung base which could represent early pneumonia. patient account specialist following 2. Hyperglycemic Hyperosmolar syndrome, was on Insulin drip. now Sliding scale. Increased Levemir to 20 units BID, uncontrolled blood sugars. 3. Acute encephalopathy Improved, avoid sedatives, CT brain no acute findings, EEG showed diffuse encephalopathy no seizure activity. 4. Non STEMI Keep MAP>65 mm Hg. Cardiology following, Echocardiogram unable to assess EF, Aspirin, Statin. 5. JOSE Renal Ultrasound no hydronephrosis, Left kidney non visualized, Nephrology specialist following, Creatinine improving, from 2.28 to 1.83 6. Elevated AST Gallbladder is at the upper limits of normal in size with no evidence of cholelithiasis or biliary obstruction. On Pepcid for GI prophylaxis 7. Hypertension Uncontrolled adjusted medicines. started on Coreg 3.125 mg BID. 8. UTI Continue Aztreonam, discontinued Vancomycin, monitor for signs of infection Goup D enterococcus in Urine, Blood culture Staph Haemolyticus. 9. Morbid Obesity strongly recommended diet and exercise as outpatient Okay to transfer to Med Surg. DVT GI prophylaxis -Teds SCDs -Heparin SQ -IV Pepcid Code Status: Full code. Discussed Condition With: Patient and Nurse Miss Chakarborty Discharge Planning: Once cleared by specialists.
[2018-06-10] MEDS: Aspirin 325 MG Tablet PO SCH (08:30)
[2018-06-10] MEDS: Insulin Detemir Inj 1,000 UNIT/10 ML Vial SQ SCH ×2 (08:30→20:23)
[2018-06-10] MEDS: Senna/Docusate Sodium 8.6/50 MG Tablet PO SCH ×2 (08:30→20:22)
--- NOTE | 2018-06-10 10:43 | P.PNCA ---
<Georgette Silverioah N - Last Filed: 06/10/18 10:27> Subjective Interval history: Patient denies any chest pain, pressure, palpitations, dizziness or shortness of breath. Patient is more alert today and he seems to be in good spirits. Physical Exam Vital signs: Vital Signs 06/09/18 11:00 06/09/18 11:42 06/09/18 12:00 Temperature 98.3 F Pulse Rate 91 H 91 H 96 H Respiratory Rate 12 17 18 Blood Pressure 133/63 127/60 Pulse Oximetry 97 97 06/09/18 12:01 06/09/18 13:00 06/09/18 13:01 Temperature Pulse Rate 96 H 98 H 98 H Respiratory Rate 16 19 16 Blood Pressure 127/60 126/57 L Pulse Oximetry 98 96 96 06/09/18 14:00 06/09/18 14:01 06/09/18 14:59 Temperature Pulse Rate 96 H 96 H 99 H Respiratory Rate 18 18 20 Blood Pressure 119/58 L 119/58 L Pulse Oximetry 94 L 94 L 06/09/18 15:00 06/09/18 16:00 06/09/18 17:00 Temperature 99.3 F Pulse Rate 98 H 104 H 101 H Respiratory Rate 16 24 23 Blood Pressure 125/58 L 131/85 117/54 L Pulse Oximetry 95 94 L 91 L 06/09/18 18:00 06/09/18 19:00 06/09/18 19:44 Temperature Pulse Rate 96 H 96 H 95 H Respiratory Rate 27 H 24 17 Blood Pressure 118/56 L 117/56 L Pulse Oximetry 95 94 L 94 L 06/09/18 20:00 06/09/18 20:01 06/09/18 21:00 Temperature 98.9 F Pulse Rate 102 H 101 H 100 H Respiratory Rate 26 H 18 22 Blood Pressure 145/65 H 145/65 H Pulse Oximetry 95 95 93 L 06/09/18 21:01 06/09/18 22:00 06/09/18 22:59 Temperature Pulse Rate 100 H 101 H Respiratory Rate 20 20 Blood Pressure 134/61 131/61 Pulse Oximetry 93 L 93 L 97 06/09/18 23:00 06/09/18 23:01 06/10/18 00:00 Temperature 98.7 F Pulse Rate 94 H 94 H 90 Respiratory Rate 19 15 19 Blood Pressure 138/62 142/65 H Pulse Oximetry 96 95 97 06/10/18 00:01 06/10/18 00:32 06/10/18 01:00 Temperature Pulse Rate 90 87 91 H Respiratory Rate 20 21 19 Blood Pressure 142/65 H Pulse Oximetry 97 96 06/10/18 01:01 06/10/18 02:00 06/10/18 02:01 Temperature Pulse Rate 91 H 89 89 Respiratory Rate 19 18 18 Blood Pressure 138/60 125/62 Pulse Oximetry 96 96 96 06/10/18 03:00 06/10/18 03:01 06/10/18 03:39 Temperature Pulse Rate 87 91 H 90 Respiratory Rate 17 14 16 Blood Pressure 140/65 Pulse Oximetry 96 97 06/10/18 04:00 06/10/18 04:01 06/10/18 05:00 Temperature 98.6 F Pulse Rate 93 H 94 H 93 H Respiratory Rate 29 H 21 19 Blood Pressure 138/84 138/84 Pulse Oximetry 94 L 94 L 94 L 06/10/18 05:01 06/10/18 06:00 06/10/18 06:01 Temperature Pulse Rate 93 H 92 H 91 H Respiratory Rate 19 21 20 Blood Pressure 152/68 H 169/72 H Pulse Oximetry 93 L 94 L 94 L 06/10/18 07:00 06/10/18 07:01 06/10/18 08:00 Temperature 98.6 F Pulse Rate 89 90 87 Respiratory Rate 20 22 20 Blood Pressure 156/73 H 141/85 H Pulse Oximetry 96 95 97 06/10/18 09:00 06/10/18 10:00 Temperature Pulse Rate 92 H 90 Respiratory Rate 24 22 Blood Pressure 146/66 H 152/68 H Pulse Oximetry 95 96 Intake & Output 06/09/18 06/10/18 06/10/18 18:59 06:59 18:59 Intake Total 800 / 800 200 / 200 480 / 480 Output Total 2174 / 2174 Balance -1375 / -1375 200 / 200 480 / 480 Weight 176.6 kg Intake: IV 200 / 200 200 / 200 Azactam Inj 1,000 MG In NS Inj 200 / 200 200 / 200 100 ML @ 200 mls/hr IV.SIG Q8H [facility] Rx#:[id number] Oral 600 / 600 480 / 480 Output: Urine Amount (Catheter) 2174 Indwelling Urethral Catheter 2174 Other: Date of Last Bowel Movement 06/09/18 06/10/18 06/10/18 # Incontinent Bowel Movements 0 1 Narrative: GENERAL: This is a well-nourished, morbidly obese patient, in no apparent distress. Patient speaks in clear complete sentences. Patient is pleasant. HEENT: Head is atraumatic and normocephalic. Neck is supple without lymphadenopathy and trachea is midline. No JVD or carotid bruits. CARDIOVASCULAR: Regular rate and rhythm without murmurs, gallops, or rubs. RESPIRATORY: Clear to auscultation. Breath sounds equal bilaterally. No wheezes , rales, or rhonchi. Chest wall is nontender. No use of accessory muscles. GASTROINTESTINAL: Abdomen is nontender, nondistended. Abdomen soft. No obvious pulsatile mass or bruit. No CVA tenderness. Strong femoral pulses bilaterally. Normal bowel sounds in all quadrants. MUSCULOSKELETAL: Patient is moving upper and lower extremities freely. No calf tenderness or edema, no Homans sign. Strong pulses in upper and lower extremities. NEUROLOGICAL: Patient is alert and oriented. No focal deficits and speech is clear. SKIN: No rash and turgor is normal. - Urinary Catheter Management Indwelling Urethral Catheter Cath placed during this visit: yes Reason for continuing: Hourly intake/output Insertion date: 06/01/18 Insertion time: 18:05 100 Cath placed during this visit: yes, but has since been removed by the nurse Reason for continuing: Hourly intake/output Removal date: 06/09/18 Removal time: 16:00 Assessment and Plan - Assessment (1) NSTEMI (non-ST elevated myocardial infarction) Code(s): I21.4 - Non-ST elevation (NSTEMI) myocardial infarction Status: Acute (2) Kidney disease Code(s): N28.9 - Disorder of kidney and ureter, unspecified Status: Acute (3) Morbid obesity Code(s): E66.01 - Morbid (severe) obesity due to excess calories Status: Acute (4) Diabetes Code(s): E11.9 - Type 2 diabetes mellitus without complications Status: Acute (5) Hypertension Code(s): I10 - Essential (primary) hypertension Status: Acute (6) Altered mental state Code(s): R41.82 - Altered mental status, unspecified Status: Acute - Plan Patient is more alert and speaking clearly and answering questions appropriately. Patient remains stable. Increase activity with physical therapy. Continue conservative management. OK to transfer patient out of ICU to the floor from a cardiac standpoint Will follow patient during hospitalization. The patient was seen and evaluated by Dr. Borjas who participated in care, management and decision-making. <Yariel Borjas - Last Filed: 06/10/18 18:50> Physical Exam Vital signs: Vital Signs 06/09/18 19:00 06/09/18 19:44 06/09/18 20:00 Temperature 98.9 F Pulse Rate 96 H 95 H 102 H Respiratory Rate 24 17 26 H Blood Pressure 117/56 L 145/65 H Pulse Oximetry 94 L 94 L 95 06/09/18 20:01 06/09/18 21:00 06/09/18 21:01 Temperature Pulse Rate 101 H 100 H 100 H Respiratory Rate 18 22 20 Blood Pressure 145/65 H 134/61 Pulse Oximetry 95 93 L 93 L 06/09/18 22:00 06/09/18 22:59 06/09/18 23:00 Temperature Pulse Rate 101 H 94 H Respiratory Rate 20 19 Blood Pressure 131/61 Pulse Oximetry 93 L 97 96 06/09/18 23:01 06/10/18 00:00 06/10/18 00:01 Temperature 98.7 F Pulse Rate 94 H 90 90 Respiratory Rate 15 19 20 Blood Pressure 138/62 142/65 H 142/65 H Pulse Oximetry 95 97 97 06/10/18 00:32 06/10/18 01:00 06/10/18 01:01 Temperature Pulse Rate 87 91 H 91 H Respiratory Rate 21 19 19 Blood Pressure 138/60 Pulse Oximetry 96 96 06/10/18 02:00 06/10/18 02:01 06/10/18 03:00 Temperature Pulse Rate 89 89 87 Respiratory Rate 18 18 17 Blood Pressure 125/62 Pulse Oximetry 96 96 96 06/10/18 03:01 06/10/18 03:39 06/10/18 04:00 Temperature 98.6 F Pulse Rate 91 H 90 93 H Respiratory Rate 14 16 29 H Blood Pressure 140/65 138/84 Pulse Oximetry 97 94 L 06/10/18 04:01 06/10/18 05:00 06/10/18 05:01 Temperature Pulse Rate 94 H 93 H 93 H Respiratory Rate 21 19 19 Blood Pressure 138/84 152/68 H Pulse Oximetry 94 L 94 L 93 L 06/10/18 06:00 06/10/18 06:01 06/10/18 07:00 Temperature Pulse Rate 92 H 91 H 89 Respiratory Rate 21 20 20 Blood Pressure 169/72 H Pulse Oximetry 94 L 94 L 96 06/10/18 07:01 06/10/18 08:00 06/10/18 08:01 Temperature 98.6 F Pulse Rate 90 87 87 Respiratory Rate 22 20 18 Blood Pressure 156/73 H 141/85 H 141/86 H Pulse Oximetry 95 97 98 06/10/18 09:00 06/10/18 09:01 06/10/18 10:00 Temperature Pulse Rate 92 H 91 H 90 Respiratory Rate 24 24 22 Blood Pressure 146/66 H 146/66 H 152/68 H Pulse Oximetry 95 94 L 96 06/10/18 10:01 06/10/18 11:00 06/10/18 11:01 Temperature Pulse Rate 91 H 90 90 Respiratory Rate 23 23 22 Blood Pressure 152/68 H 159/72 H 159/72 H Pulse Oximetry 95 95 95 06/10/18 11:06 06/10/18 11:52 06/10/18 12:00 Temperature 98.5 F Pulse Rate 88 106 H 98 H Respiratory Rate 21 26 H 26 H Blood Pressure 171/89 H 171/89 H Pulse Oximetry 97 93 L 06/10/18 13:00 06/10/18 14:00 06/10/18 14:01 Temperature Pulse Rate 92 H 92 H 91 H Respiratory Rate 24 27 H 26 H Blood Pressure 171/72 H 171/72 H Pulse Oximetry 94 L 92 L 92 L 06/10/18 14:31 06/10/18 14:56 06/10/18 15:00 Temperature Pulse Rate 94 H 90 92 H Respiratory Rate 27 H 16 24 Blood Pressure 188/79 H 186/74 H Pulse Oximetry 95 94 L 06/10/18 15:01 06/10/18 15:31 06/10/18 16:00 Temperature 98.4 F Pulse Rate 92 H 93 H 92 H Respiratory Rate 23 26 H 29 H Blood Pressure 186/74 H 176/72 H 183/126 H Pulse Oximetry 95 95 94 L 06/10/18 17:00 06/10/18 18:00 Temperature Pulse Rate 90 87 Respiratory Rate 24 27 H Blood Pressure 192/79 H 181/78 H Pulse Oximetry 92 L 98 Intake & Output 06/09/18 06/10/18 06/10/18 18:59 06:59 18:59 Intake Total 800 / 800 200 / 200 1080 / 1080 Output Total 217 / 2174 200 / 200 Balance -1375 / -1375 200 / 200 880 / 880 Weight 389 lb 5.381 oz Intake: IV 200 / 200 200 / 200 Azactam Inj 1,000 MG In NS Inj 200 / 200 200 / 200 100 ML @ 200 mls/hr IV.SIG Q8H [facility] Rx#:[id number] Oral 600 / 600 1080 / 1080 Output: Urine 200 / 200 Urine Amount (Catheter) 2174 Indwelling Urethral Catheter 2174 Other: # Voids 3 Date of Last Bowel Movement 06/09/18 06/10/18 06/10/18 # Incontinent Bowel Movements 0 0 - Urinary Catheter Management Indwelling Urethral Catheter Cath placed during this visit: no 100 Cath placed during this visit: no Assessment and Plan - Assessment (1) NSTEMI (non-ST elevated myocardial infarction) Code(s): I21.4 - Non-ST elevation (NSTEMI) myocardial infarction Status: Acute (2) Kidney disease Code(s): N28.9 - Disorder of kidney and ureter, unspecified Status: Acute (3) Morbid obesity Code(s): E66.01 - Morbid (severe) obesity due to excess calories Status: Acute (4) Diabetes Code(s): E11.9 - Type 2 diabetes mellitus without complications Status: Acute (5) Hypertension Code(s): I10 - Essential (primary) hypertension Status: Acute (6) Altered mental state Code(s): R41.82 - Altered mental status, unspecified Status: Acute - Attending Attestation Patient seen and examined. I reviewed and agree with the evaluation and plan as presented. No new cardiac issues. OK to transfer out of ICU.
[2018-06-10] MEDS ORDERED: Insulin Detemir Inj 1,000 UNIT/10 ML Vial SQ ONE (13:59)
[2018-06-10] MEDS: amLODIPine 5 MG Tablet PO SCH (17:31)
[2018-06-10] MEDS: Finasteride 5 MG Tablet PO SCH (20:22)
[2018-06-11] MEDS: Insulin NovoLIN Regular Correctional Sugar Inj SQ SCH ×6 (01:46→22:33)
[2018-06-11] MEDS: Gabapentin 300 MG Capsule PO SCH ×3 (06:20→18:41)
[2018-06-11] MEDS: Senna/Docusate Sodium 8.6/50 MG Tablet PO SCH ×2 (09:06→22:32)
[2018-06-11] MEDS: Aspirin 325 MG Tablet PO SCH (09:06)
[2018-06-11] MEDS: Famotidine PF Inj 20 MG/2 ML Vial IV.PUSH SCH ×2 (09:07→22:37)
[2018-06-11] MEDS: Heparin - SQ 10,000 UNITS/ML Vial SQ SCH ×2 (09:08→22:36)
[2018-06-11] MEDS: amLODIPine 5 MG Tablet PO SCH (09:09)
[2018-06-11] MEDS: Insulin Detemir Inj 1,000 UNIT/10 ML Vial SQ SCH ×2 (09:09→22:31)
--- NOTE | 2018-06-11 12:03 | P.PNCA ---
<NusratJena N - Last Filed: 06/11/18 11:56> Subjective Interval history: Patient denies any chest pain, pressure, palpitations, dizziness or edema. Patient states that he is feeling better. Patient became short of breath during the night and was placed on BiPAP and is tolerating well. Physical Exam Vital signs: Vital Signs 06/10/18 12:00 06/10/18 13:00 06/10/18 14:00 Temperature 98.5 F Pulse Rate 98 H 92 H 92 H Respiratory Rate 26 H 24 27 H Blood Pressure 171/89 H 171/72 H Pulse Oximetry 93 L 94 L 92 L 06/10/18 14:01 06/10/18 14:31 06/10/18 14:56 Temperature Pulse Rate 91 H 94 H 90 Respiratory Rate 26 H 27 H 16 Blood Pressure 171/72 H 188/79 H Pulse Oximetry 92 L 95 06/10/18 15:00 06/10/18 15:01 06/10/18 15:31 Temperature Pulse Rate 92 H 92 H 93 H Respiratory Rate 24 23 26 H Blood Pressure 186/74 H 186/74 H 176/72 H Pulse Oximetry 94 L 95 95 06/10/18 16:00 06/10/18 16:01 06/10/18 16:06 Temperature 98.4 F Pulse Rate 92 H 92 H 91 H Respiratory Rate 29 H 25 H 27 H Blood Pressure 183/126 H 183/126 H 172/74 H Pulse Oximetry 94 L 95 93 L 06/10/18 16:31 06/10/18 17:00 06/10/18 17:01 Temperature Pulse Rate 92 H 90 90 Respiratory Rate 24 24 24 Blood Pressure 189/77 H 192/79 H 192/79 H Pulse Oximetry 93 L 92 L 91 L 06/10/18 17:31 06/10/18 18:00 06/10/18 18:01 Temperature Pulse Rate 91 H 87 86 Respiratory Rate 25 H 27 H 24 Blood Pressure 200/81 H 181/78 H 181/78 H Pulse Oximetry 95 98 98 18 18:31 18 18:37 06/10/18 19:00 Temperature Pulse Rate 90 88 88 Respiratory Rate 25 H 25 H 22 Blood Pressure 200/82 H 178/75 H 195/80 H Pulse Oximetry 98 100 97 08/16/18 19:30 06/10/18 19:43 06/10/18 19:56 Temperature Pulse Rate 94 H 88 90 Respiratory Rate 25 H 24 23 Blood Pressure 206/85 H 211/88 H 219/95 H Pulse Oximetry 99 97 98 06/10/18 20:00 06/10/18 20:01 06/10/18 20:09 Temperature 98.3 F Pulse Rate 89 87 88 Respiratory Rate 23 22 18 Blood Pressure 219/95 H 220/93 H Pulse Oximetry 98 98 100 06/10/18 20:31 06/10/18 20:32 06/10/18 20:34 Temperature Pulse Rate 90 90 Respiratory Rate 14 19 Blood Pressure 230/95 H 161/74 H Pulse Oximetry 100 99 98 06/10/18 21:00 06/10/18 21:01 06/10/18 21:31 Temperature Pulse Rate 90 90 86 Respiratory Rate 18 18 16 Blood Pressure 166/72 H 141/63 H Pulse Oximetry 96 96 98 06/10/18 22:00 06/10/18 22:30 06/10/18 23:00 Temperature Pulse Rate 86 88 89 Respiratory Rate 16 14 14 Blood Pressure 150/70 H 168/77 H Pulse Oximetry 97 97 99 06/10/18 23:01 06/10/18 23:06 06/10/18 23:27 Temperature Pulse Rate 89 88 91 H Respiratory Rate 13 14 20 Blood Pressure 167/130 H 178/83 H Pulse Oximetry 99 98 06/10/18 23:31 06/11/18 00:00 06/11/18 00:01 Temperature 98.4 F Pulse Rate 91 H 94 H 93 H Respiratory Rate 16 14 15 Blood Pressure 162/73 H 136/61 136/61 Pulse Oximetry 94 L 92 L 94 L 06/11/18 00:08 06/11/18 00:30 06/11/18 01:00 Temperature Pulse Rate 90 84 Respiratory Rate 15 17 Blood Pressure 142/68 H Pulse Oximetry 96 97 96 06/11/18 01:01 06/11/18 01:31 06/11/18 02:00 Temperature Pulse Rate 84 85 85 Respiratory Rate 15 13 19 Blood Pressure 145/64 H 155/68 H Pulse Oximetry 96 98 97 06/11/18 02:01 06/11/18 02:31 06/11/18 03:00 Temperature Pulse Rate 91 H 83 82 Respiratory Rate 20 17 15 Blood Pressure 141/65 H 128/61 Pulse Oximetry 98 96 96 06/11/18 03:01 06/11/18 03:30 06/11/18 04:00 Temperature 98.4 F Pulse Rate 82 82 79 Respiratory Rate 16 17 16 Blood Pressure 119/53 L 122/64 128/59 L Pulse Oximetry 96 96 96 06/11/18 04:01 06/11/18 04:30 06/11/18 05:00 Temperature Pulse Rate 79 77 78 Respiratory Rate 16 17 16 Blood Pressure 128/59 L 131/63 143/64 H Pulse Oximetry 96 97 98 06/11/18 05:31 06/11/18 06:00 06/11/18 06:31 Temperature Pulse Rate 77 74 79 Respiratory Rate 16 15 19 Blood Pressure 125/60 121/57 L 135/64 Pulse Oximetry 96 96 94 L 06/11/18 07:40 06/11/18 08:00 Temperature Pulse Rate 76 Respiratory Rate Blood Pressure Pulse Oximetry 99 98 Intake & Output 06/10/18 06/11/18 06/11/18 18:59 06:59 18:59 Intake Total 1180 / 1180 100 / 100 Output Total 200 / 200 Balance 980 / 980 100 / 100 Weight 176.6 kg Intake: IV 100 / 100 100 / 100 Azactam Inj 1,000 MG In NS Inj 100 / 100 100 / 100 100 ML @ 200 mls/hr IV.SIG Q8H [facility] Rx#:[id number] Oral 1080 / 1080 Output: Urine 200 / 200 Other: # Voids 3 Date of Last Bowel Movement 06/10/18 06/10/18 06/10/18 # Incontinent Bowel Movements 0 - Constitutional no acute distress - Routine HEENT Exam Head: Present: normocephalic Eye: Present: PERRL ENT: Present: mucous membranes moist - Routine Neck Exam Present: supple - Routine Respiratory Exam Present: distant breath sounds Comments: Patient currently on BiPAP and is tolerating well. - Routine Cardiovascular Exam Present: S1, S2. Absent: murmur, gallop, rubs - Routine Abdominal Exam Present: soft - Routine Extremities Exam Present: edema, full ROM, pulses intact, normal capillary refill. Absent: cyanosis, clubbing - Routine Neurological Exam Present: alert, moving all extremities - Detailed Neurological Exam: Coma Scale Eye Opening: Spontaneous Verbal Response: Oriented Motor Response: Obey commands Miguel Coma Scale Total: 15 - Routine Psychiatric Exam Present: normal affect - Urinary Catheter Management Indwelling Urethral Catheter Cath placed during this visit: yes Reason for continuing: Hourly intake/output Insertion date: 06/01/18 Insertion time: 18:05 100 Cath placed during this visit: yes, but has since been removed by the nurse Reason for continuing: Hourly intake/output Removal date: 06/09/18 Removal time: 16:00 Assessment and Plan - Assessment (1) NSTEMI (non-ST elevated myocardial infarction) Code(s): I21.4 - Non-ST elevation (NSTEMI) myocardial infarction Status: Acute (2) Kidney disease Code(s): N28.9 - Disorder of kidney and ureter, unspecified Status: Acute (3) Morbid obesity Code(s): E66.01 - Morbid (severe) obesity due to excess calories Status: Acute (4) Diabetes Code(s): E11.9 - Type 2 diabetes mellitus without complications Status: Acute (5) Hypertension Code(s): I10 - Essential (primary) hypertension Status: Acute (6) Altered mental state Code(s): R41.82 - Altered mental status, unspecified Status: Acute - Plan Patient is alert and speaking clearly and answering questions appropriately. Currently on BIPAP, tolerating well. Increase activity with physical therapy. Continue conservative management. Will follow patient during hospitalization. The patient was seen and evaluated by Dr. Borjas who participated in care, management and decision-making. <Yariel Borjas - Last Filed: 06/11/18 14:57> Physical Exam Vital signs: Vital Signs 06/10/18 15:00 06/10/18 15:01 06/10/18 15:31 Temperature Pulse Rate 92 H 92 H 93 H Respiratory Rate 24 23 26 H Blood Pressure 186/74 H 186/74 H 176/72 H Pulse Oximetry 94 L 95 95 06/10/18 16:00 06/10/18 16:01 06/10/18 16:06 Temperature 98.4 F Pulse Rate 92 H 92 H 91 H Respiratory Rate 29 H 25 H 27 H Blood Pressure 183/126 H 183/126 H 172/74 H Pulse Oximetry 94 L 95 93 L 06/10/18 16:31 06/10/18 17:00 06/10/18 17:01 Temperature Pulse Rate 92 H 90 90 Respiratory Rate 24 24 24 Blood Pressure 189/77 H 192/79 H 192/79 H Pulse Oximetry 93 L 92 L 91 L 06/10/18 17:31 06/10/18 18:00 06/10/18 18:01 Temperature Pulse Rate 91 H 87 86 Respiratory Rate 25 H 27 H 24 Blood Pressure 200/81 H 181/78 H 181/78 H Pulse Oximetry 95 98 98 06/10/18 18:31 06/10/18 18:37 06/10/18 19:00 Temperature Pulse Rate 90 88 88 Respiratory Rate 25 H 25 H 22 Blood Pressure 200/82 H 178/75 H 195/80 H Pulse Oximetry 98 100 97 06/10/18 19:30 06/10/18 19:43 06/10/18 19:56 Temperature Pulse Rate 94 H 88 90 Respiratory Rate 25 H 24 23 Blood Pressure 206/85 H 211/88 H 219/95 H Pulse Oximetry 99 97 98 06/10/18 20:00 06/10/18 20:01 06/10/18 20:09 Temperature 98.3 F Pulse Rate 89 87 88 Respiratory Rate 23 22 18 Blood Pressure 219/95 H 220/93 H Pulse Oximetry 98 98 100 06/10/18 20:31 06/10/18 20:32 06/10/18 20:34 Temperature Pulse Rate 90 90 Respiratory Rate 14 19 Blood Pressure 230/95 H 161/74 H Pulse Oximetry 100 99 98 06/10/18 21:00 06/10/18 21:01 06/10/18 21:31 Temperature Pulse Rate 90 90 86 Respiratory Rate 18 18 16 Blood Pressure 166/72 H 141/63 H Pulse Oximetry 96 96 98 06/10/18 22:00 06/10/18 22:30 06/10/18 23:00 Temperature Pulse Rate 86 88 89 Respiratory Rate 16 14 14 Blood Pressure 150/70 H 168/77 H Pulse Oximetry 97 97 99 06/10/18 23:01 06/10/18 23:06 06/10/18 23:27 Temperature Pulse Rate 89 88 91 H Respiratory Rate 13 14 20 Blood Pressure 167/130 H 178/83 H Pulse Oximetry 99 98 06/10/18 23:31 06/11/18 00:00 06/11/18 00:01 Temperature 98.4 F Pulse Rate 91 H 94 H 93 H Respiratory Rate 16 14 15 Blood Pressure 162/73 H 136/61 136/61 Pulse Oximetry 94 L 92 L 94 L 06/11/18 00:08 06/11/18 00:30 06/11/18 01:00 Temperature Pulse Rate 90 84 Respiratory Rate 15 17 Blood Pressure 142/68 H Pulse Oximetry 96 97 96 06/11/18 01:01 06/11/18 01:31 06/11/18 02:00 Temperature Pulse Rate 84 85 85 Respiratory Rate 15 13 19 Blood Pressure 145/64 H 155/68 H Pulse Oximetry 96 98 97 06/11/18 02:01 06/11/18 02:31 06/11/18 03:00 Temperature Pulse Rate 91 H 83 82 Respiratory Rate 20 17 15 Blood Pressure 141/65 H 128/61 Pulse Oximetry 98 96 96 06/11/18 03:01 06/11/18 03:30 06/11/18 04:00 Temperature 98.4 F Pulse Rate 82 82 79 Respiratory Rate 16 17 16 Blood Pressure 119/53 L 122/64 128/59 L Pulse Oximetry 96 96 96 06/11/18 04:01 06/11/18 04:30 06/11/18 05:00 Temperature Pulse Rate 79 77 78 Respiratory Rate 16 17 16 Blood Pressure 128/59 L 131/63 143/64 H Pulse Oximetry 96 97 98 06/11/18 05:31 06/11/18 06:00 06/11/18 06:31 Temperature Pulse Rate 77 74 79 Respiratory Rate 16 15 19 Blood Pressure 125/60 121/57 L 135/64 Pulse Oximetry 96 96 94 L 06/11/18 07:40 06/11/18 08:00 06/11/18 10:00 Temperature Pulse Rate 76 72 Respiratory Rate Blood Pressure Pulse Oximetry 99 98 06/11/18 12:00 06/11/18 14:40 Temperature Pulse Rate 79 Respiratory Rate Blood Pressure Pulse Oximetry 99 Intake & Output 06/10/18 06/11/18 06/11/18 18:59 06:59 18:59 Intake Total 1180 / 1180 100 / 100 Output Total 200 / 200 Balance 980 / 980 100 / 100 Weight 389 lb 5.381 oz Intake: IV 100 / 100 100 / 100 Azactam Inj 1,000 MG In NS Inj 100 / 100 100 / 100 100 ML @ 200 mls/hr IV.SIG Q8H [facility] Rx#:[id number] Oral 1080 / 1080 Output: Urine 200 / 200 Other: # Voids 3 Date of Last Bowel Movement 06/10/18 06/10/18 06/10/18 # Incontinent Bowel Movements 0 - Urinary Catheter Management Indwelling Urethral Catheter Cath placed during this visit: no 100 Cath placed during this visit: no Assessment and Plan - Assessment (1) NSTEMI (non-ST elevated myocardial infarction) Code(s): I21.4 - Non-ST elevation (NSTEMI) myocardial infarction Status: Acute (2) Kidney disease Code(s): N28.9 - Disorder of kidney and ureter, unspecified Status: Acute (3) Morbid obesity Code(s): E66.01 - Morbid (severe) obesity due to excess calories Status: Acute (4) Diabetes Code(s): E11.9 - Type 2 diabetes mellitus without complications Status: Acute (5) Hypertension Code(s): I10 - Essential (primary) hypertension Status: Acute (6) Altered mental state Code(s): R41.82 - Altered mental status, unspecified Status: Acute - Attending Attestation Patient seen and examined. I reviewed and agree with the evaluation and plan as presented. No new cardiac issues. Continue current program. Increase acitivity, PT. Will sign off.
--- NOTE | 2018-06-11 12:09 | P.PN ---
Subjective Interval history: college specialist Notes: 72-year-old morbidly obese male with history of diabetes, multiple medical issues, presents because a steward/stewardess club car found him in the bathroom slumped over. Apparently he was last seen normal this morning around 10 AM, but patient is currently fairly disoriented, not able to answer many questions. EMS found his blood sugars reading high, and his blood pressures were low. His sugars in the emergency department were extremely high, his beta butyric acid is negative. His second troponin was also found to be 27. 06/02 Patient is lying in bed in no acute resp distress. On Insulin drip 5u/hr and Heparin drip. Afebrile, Awake and alert 06/03 Patient is lying in bed in NAD. Afebrile. Off Insulin drip. On Heparin drip. 06/04 Patient is more awake and alert this morning. On Heparin and bicarb drips. Renal function is improving with Cr: 2.37 from 2.79. Afebrile. 06/05 Patient is lying in bed in NAD> On Bicarb and Heparin drips. Renal function is improving with Cr: 2.01 from 2.37. Afebrile 06/06 Patient is lying in bed in NAD. Remains on Heparin drip. Afebrile. 06/07 Patient had Prolonged DC interval 0.35 was initially placed on Glucagon drip now off. Hypotensive this morning with SBP 80's Afebrile. 06/08 Patient is lying in bed in NAD> Off Heparin drip. Renal function is improving with Cr: 2.28 from 2.61 06/09 No events overnight. Awake and alert. Renal function is improving with Cr: 1.96 from 2.28. afebrile. Hospitalist Notes: 06/11: seen in his bedroom in the presence of nurse Fernanda, he is wearing BiPAP at this time, okay to transfer out of ICU continue multi specialty management. Physical Exam Vital signs: Vital Signs 06/10/18 13:00 06/10/18 14:00 06/10/18 14:01 Temperature Pulse Rate 92 H 92 H 91 H Respiratory Rate 24 27 H 26 H Blood Pressure 171/72 H 171/72 H Pulse Oximetry 94 L 92 L 92 L 06/10/18 14:31 06/10/18 14:56 06/10/18 15:00 Temperature Pulse Rate 94 H 90 92 H Respiratory Rate 27 H 16 24 Blood Pressure 188/79 H 186/74 H Pulse Oximetry 95 94 L 06/10/18 15:01 06/10/18 15:31 06/10/18 16:00 Temperature 98.4 F Pulse Rate 92 H 93 H 92 H Respiratory Rate 23 26 H 29 H Blood Pressure 186/74 H 176/72 H 183/126 H Pulse Oximetry 95 95 94 L 06/10/18 16:01 06/10/18 16:06 06/10/18 16:31 Temperature Pulse Rate 92 H 91 H 92 H Respiratory Rate 25 H 27 H 24 Blood Pressure 183/126 H 172/74 H 189/77 H Pulse Oximetry 95 93 L 93 L 06/10/18 17:00 06/10/18 17:01 06/10/18 17:31 Temperature Pulse Rate 90 90 91 H Respiratory Rate 24 24 25 H Blood Pressure 192/79 H 192/79 H 200/81 H Pulse Oximetry 92 L 91 L 95 06/10/18 18:00 06/10/18 18:01 06/10/18 18:31 Temperature Pulse Rate 87 86 90 Respiratory Rate 27 H 24 25 H Blood Pressure 181/78 H 181/78 H 200/82 H Pulse Oximetry 98 98 98 06/10/18 18:37 06/10/18 19:00 06/10/18 19:30 Temperature Pulse Rate 88 88 94 H Respiratory Rate 25 H 22 25 H Blood Pressure 178/75 H 195/80 H 206/85 H Pulse Oximetry 100 97 99 06/10/18 19:43 06/10/18 19:56 06/10/18 20:00 Temperature 98.3 F Pulse Rate 88 90 89 Respiratory Rate 24 23 23 Blood Pressure 211/88 H 219/95 H 219/95 H Pulse Oximetry 97 98 98 06/10/18 20:01 06/10/18 20:09 06/10/18 20:31 Temperature Pulse Rate 87 88 90 Respiratory Rate 22 18 14 Blood Pressure 220/93 H 230/95 H Pulse Oximetry 98 100 100 06/10/18 20:32 06/10/18 20:34 06/10/18 21:00 Temperature Pulse Rate 90 90 Respiratory Rate 19 18 Blood Pressure 161/74 H Pulse Oximetry 99 98 96 06/10/18 21:01 06/10/18 21:31 06/10/18 22:00 Temperature Pulse Rate 90 86 86 Respiratory Rate 18 16 16 Blood Pressure 166/72 H 141/63 H 150/70 H Pulse Oximetry 96 98 97 06/10/18 22:30 06/10/18 23:00 06/10/18 23:01 Temperature Pulse Rate 88 89 89 Respiratory Rate 14 14 13 Blood Pressure 168/77 H 167/130 H Pulse Oximetry 97 99 99 06/10/18 23:06 06/10/18 23:27 06/10/18 23:31 Temperature Pulse Rate 88 91 H 91 H Respiratory Rate 14 20 16 Blood Pressure 178/83 H 162/73 H Pulse Oximetry 98 94 L 06/11/18 00:00 06/11/18 00:01 06/11/18 00:08 Temperature 98.4 F Pulse Rate 94 H 93 H Respiratory Rate 14 15 Blood Pressure 136/61 136/61 Pulse Oximetry 92 L 94 L 96 06/11/18 00:30 06/11/18 01:00 06/11/18 01:01 Temperature Pulse Rate 90 84 84 Respiratory Rate 15 17 15 Blood Pressure 142/68 H 145/64 H Pulse Oximetry 97 96 96 06/11/18 01:31 06/11/18 02:00 06/11/18 02:01 Temperature Pulse Rate 85 85 91 H Respiratory Rate 13 19 20 Blood Pressure 155/68 H 141/65 H Pulse Oximetry 98 97 98 06/11/18 02:31 06/11/18 03:00 06/11/18 03:01 Temperature Pulse Rate 83 82 82 Respiratory Rate 17 15 16 Blood Pressure 128/61 119/53 L Pulse Oximetry 96 96 96 06/11/18 03:30 06/11/18 04:00 06/11/18 04:01 Temperature 98.4 F Pulse Rate 82 79 79 Respiratory Rate 17 16 16 Blood Pressure 122/64 128/59 L 128/59 L Pulse Oximetry 96 96 96 06/11/18 04:30 06/11/18 05:00 06/11/18 05:31 Temperature Pulse Rate 77 78 77 Respiratory Rate 17 16 16 Blood Pressure 131/63 143/64 H 125/60 Pulse Oximetry 97 98 96 06/11/18 06:00 06/11/18 06:31 06/11/18 07:40 Temperature Pulse Rate 74 79 Respiratory Rate 15 19 Blood Pressure 121/57 L 135/64 Pulse Oximetry 96 94 L 99 06/11/18 08:00 Temperature Pulse Rate 76 Respiratory Rate Blood Pressure Pulse Oximetry 98 Intake & Output 06/10/18 06/11/18 06/11/18 18:59 06:59 18:59 Intake Total 1180 / 1180 100 / 100 Output Total 200 / 200 Balance 980 / 980 100 / 100 Weight 176.6 kg Intake: IV 100 / 100 100 / 100 Azactam Inj 1,000 MG In NS Inj 100 / 100 100 / 100 100 ML @ 200 mls/hr IV.SIG Q8H [facility] Rx#:[id number] Oral 1080 / 1080 Output: Urine 200 / 200 Other: # Voids 3 Date of Last Bowel Movement 06/10/18 06/10/18 06/10/18 # Incontinent Bowel Movements 0 Narrative: GENERAL: No acute distress, Morbid Obese patient. SKIN: Warm and dry. HEAD: Normocephalic. EYES: No scleral icterus. No injection or drainage. NECK: Supple, trachea midline. No JVD or lymphadenopathy. CARDIOVASCULAR: Regular rate and rhythm without murmurs, gallops, or rubs. RESPIRATORY: Breath sounds equal bilaterally. No accessory muscle use. GASTROINTESTINAL: Abdomen soft, non-tender, nondistended. MUSCULOSKELETAL: No cyanosis, edema 2+ Neuro: Awake and alert - Urinary Catheter Management Indwelling Urethral Catheter Cath placed during this visit: yes Reason for continuing: Hourly intake/output Insertion date: 06/01/18 Insertion time: 18:05 100 Cath placed during this visit: yes, but has since been removed by the nurse Reason for continuing: Hourly intake/output Removal date: 06/09/18 Removal time: 16:00 Results - Labs CBC & Chem 7: 06/10/18 05:05 06/10/18 05:05 Laboratory Results - last 24 hr 06/10/18 06/10/18 06/10/18 15:50 19:58 23:39 POC Glucose 279 H 259 H 260 H 06/11/18 06/11/18 03:15 10:24 POC Glucose 241 H 161 H Assessment and Plan - Plan 1. Respiratory Insufficiency On Oxygen to keep Oxygen saturation above 92%. Bronchodilator, Mucolytic, Incentive spirometry, CT chest: Atelectasis and mild consolidation in the left lung base which could represent early pneumonia. sales and marketing specialist following, on Aztreonam. 2. Hyperglycemic Hyperosmolar syndrome, was on Insulin drip. now Sliding scale. Increased Levemir to 20 units BID, better blood sugar control. following. 3. Acute encephalopathy Improved, avoid sedatives, CT brain no acute findings, EEG showed diffuse encephalopathy no seizure activity. 4. Non STEMI Keep MAP>65 mm Hg. Cardiology following, Echocardiogram unable to assess EF, Aspirin, Statin. 5. JOSE Renal Ultrasound no hydronephrosis, Left kidney non visualized, Nephrology specialist following, Creatinine improving, from 2.28 to 1.83 6. Elevated AST Gallbladder is at the upper limits of normal in size with no evidence of cholelithiasis or biliary obstruction. On Pepcid for GI prophylaxis 7. Hypertension Uncontrolled adjusted medicines. started on Coreg 3.125 mg BID. Amlodipine 5 mg better control. 8. UTI Continue Aztreonam, discontinued Vancomycin, monitor for signs of infection Goup D enterococcus in Urine, Blood culture Staph Haemolyticus. 9. Morbid Obesity strongly recommended diet and exercise as outpatient Okay to transfer to Med Surg. DVT GI prophylaxis -Teds SCDs -Heparin SQ -IV Pepcid Code Status: Full Code. Discussed Condition With: Patient and nurse Miss Michael Discharge Planning: Once cleared by specialists.
--- NOTE | 2018-06-11 18:08 | P.PN ---
Subjective Interval history: some progress. No chest pains . on O2 but keeps it off. On Azactam. Physical Exam Vital signs: Vital Signs 06/10/18 18:31 06/10/18 18:37 06/10/18 19:00 Temperature Pulse Rate 90 88 88 Respiratory Rate 25 H 25 H 22 Blood Pressure 200/82 H 178/75 H 195/80 H Pulse Oximetry 98 100 97 06/10/18 19:30 06/10/18 19:43 06/10/18 19:56 Temperature Pulse Rate 94 H 88 90 Respiratory Rate 25 H 24 23 Blood Pressure 206/85 H 211/88 H 219/95 H Pulse Oximetry 99 97 98 06/10/18 20:00 06/10/18 20:01 06/10/18 20:09 Temperature 98.3 F Pulse Rate 89 87 88 Respiratory Rate 23 22 18 Blood Pressure 219/95 H 220/93 H Pulse Oximetry 98 98 100 06/10/18 20:31 06/10/18 20:32 06/10/18 20:34 Temperature Pulse Rate 90 90 Respiratory Rate 14 19 Blood Pressure 230/95 H 161/74 H Pulse Oximetry 100 99 98 06/10/18 21:00 06/10/18 21:01 06/10/18 21:31 Temperature Pulse Rate 90 90 86 Respiratory Rate 18 18 16 Blood Pressure 166/72 H 141/63 H Pulse Oximetry 96 96 98 06/10/18 22:00 06/10/18 22:30 06/10/18 23:00 Temperature Pulse Rate 86 88 89 Respiratory Rate 16 14 14 Blood Pressure 150/70 H 168/77 H Pulse Oximetry 97 97 99 06/10/18 23:01 06/10/18 23:06 06/10/18 23:27 Temperature Pulse Rate 89 88 91 H Respiratory Rate 13 14 20 Blood Pressure 167/130 H 178/83 H Pulse Oximetry 99 98 06/10/18 23:31 06/11/18 00:00 06/11/18 00:01 Temperature 98.4 F Pulse Rate 91 H 94 H 93 H Respiratory Rate 16 14 15 Blood Pressure 162/73 H 136/61 136/61 Pulse Oximetry 94 L 92 L 94 L 06/11/18 00:08 06/11/18 00:30 06/11/18 01:00 Temperature Pulse Rate 90 84 Respiratory Rate 15 17 Blood Pressure 142/68 H Pulse Oximetry 96 97 96 06/11/18 01:01 06/11/18 01:31 06/11/18 02:00 Temperature Pulse Rate 84 85 85 Respiratory Rate 15 13 19 Blood Pressure 145/64 H 155/68 H Pulse Oximetry 96 98 97 06/11/18 02:01 06/11/18 02:31 06/11/18 03:00 Temperature Pulse Rate 91 H 83 82 Respiratory Rate 20 17 15 Blood Pressure 141/65 H 128/61 Pulse Oximetry 98 96 96 06/11/18 03:01 06/11/18 03:30 06/11/18 04:00 Temperature 98.4 F Pulse Rate 82 82 79 Respiratory Rate 16 17 16 Blood Pressure 119/53 L 122/64 128/59 L Pulse Oximetry 96 96 96 06/11/18 04:01 06/11/18 04:30 06/11/18 05:00 Temperature Pulse Rate 79 77 78 Respiratory Rate 16 17 16 Blood Pressure 128/59 L 131/63 143/64 H Pulse Oximetry 96 97 98 06/11/18 05:31 06/11/18 06:00 06/11/18 06:31 Temperature Pulse Rate 77 74 79 Respiratory Rate 16 15 19 Blood Pressure 125/60 121/57 L 135/64 Pulse Oximetry 96 96 94 L 06/11/18 07:40 06/11/18 08:00 06/11/18 08:01 Temperature Pulse Rate 76 75 Respiratory Rate 16 Blood Pressure 121/59 L Pulse Oximetry 99 98 95 06/11/18 09:00 06/11/18 10:00 06/11/18 11:00 Temperature Pulse Rate 76 79 73 Respiratory Rate 15 15 13 Blood Pressure 125/60 135/66 124/59 L Pulse Oximetry 98 98 98 06/11/18 12:00 06/11/18 12:01 06/11/18 13:01 Temperature Pulse Rate 79 77 80 Respiratory Rate 16 13 Blood Pressure 119/56 L 126/58 L Pulse Oximetry 93 L 94 L 06/11/18 14:00 06/11/18 14:40 06/11/18 15:00 Temperature Pulse Rate 70 69 Respiratory Rate 16 16 Blood Pressure 119/58 L 122/58 L Pulse Oximetry 99 99 98 06/11/18 16:00 06/11/18 17:00 Temperature Pulse Rate 70 70 Respiratory Rate 13 14 Blood Pressure 130/59 L 134/65 Pulse Oximetry 98 98 Intake & Output 06/10/18 06/11/18 06/11/18 18:59 06:59 18:59 Intake Total 1180 / 1180 200 / 200 Output Total 200 / 200 Balance 980 / 980 200 / 200 Weight 176.6 kg Intake: IV 100 / 100 200 / 200 Azactam Inj 1,000 MG In NS Inj 100 / 100 200 / 200 100 ML @ 200 mls/hr IV.SIG Q8H [facility] Rx#:[id number] Oral 1080 / 1080 Output: Urine 200 / 200 Other: # Voids 3 Date of Last Bowel Movement 06/10/18 06/10/18 06/10/18 # Incontinent Bowel Movements 0 GENERAL: Obese mid aged W/M alert. SKIN: Warm and dry. HEAD: Normocephalic. EYES: No scleral icterus. No injection or drainage. NECK: Supple, trachea midline. No JVD or lymphadenopathy. CARDIOVASCULAR: Regular rate and rhythm without murmurs, gallops, or rubs. RESPIRATORY: Breath sounds Decreased and equal bilaterally. No accessory muscle use. GASTROINTESTINAL: Abdomen soft, non-tender, nondistended. MUSCULOSKELETAL: No cyanosis, but has edema. BACK: Nontender without obvious deformity. No CVA tenderness. Neuro:Alert and moves all extremities. - Urinary Catheter Management Indwelling Urethral Catheter Cath placed during this visit: yes Reason for continuing: Hourly intake/output Insertion date: 06/01/18 Insertion time: 18:05 100 Cath placed during this visit: yes, but has since been removed by the nurse Reason for continuing: Hourly intake/output Removal date: 06/09/18 Removal time: 16:00 Results - Labs CBC & Chem 7: 06/10/18 05:05 06/10/18 05:05 Laboratory Results - last 24 hr 06/10/18 06/10/18 06/11/18 19:58 23:39 03:15 POC Glucose 259 H 260 H 241 H 06/11/18 06/11/18 10:24 16:26 POC Glucose 161 H 155 H Assessment and Plan - Assessment (1) SHEELA (obstructive sleep apnea) Code(s): G47.33 - Obstructive sleep apnea (adult) (pediatric) Status: Acute (2) COPD (chronic obstructive pulmonary disease) Code(s): J44.9 - Chronic obstructive pulmonary disease, unspecified Status: Acute (3) NSTEMI (non-ST elevated myocardial infarction) Code(s): I21.4 - Non-ST elevation (NSTEMI) myocardial infarction Status: Acute (4) Kidney disease Code(s): N28.9 - Disorder of kidney and ureter, unspecified Status: Acute (5) Morbid obesity Code(s): E66.01 - Morbid (severe) obesity due to excess calories Status: Acute (6) Diabetes Code(s): E11.9 - Type 2 diabetes mellitus without complications Status: Acute (7) Hypertension Code(s): I10 - Essential (primary) hypertension Status: Acute (8) Altered mental state Code(s): R41.82 - Altered mental status, unspecified Status: Acute (9) HHNC (hyperglycemic hyperosmolar nonketotic coma) Code(s): E11.01 - Type 2 diabetes mellitus with hyperosmolarity with coma Status: Acute (10) JOSE (acute kidney injury) Code(s): N17.9 - Acute kidney failure, unspecified Status: Acute - Plan 1. Get a Chest Xray in am 2. Needs a Sleep study as OP 3. Duoneb nebs qid. 4. D/C IV Antibiotics 5. Add Levaquin 500 mg daily X 5 . 6. Up with help and PT.IS at bedside q2h 7. Use BiPAP 15/5 cm at HS a nd PRN
[2018-06-11] MEDS: Finasteride 5 MG Tablet PO SCH (22:32)
[2018-06-11] MEDS: Zolpidem Tartrate 5 MG Tablet PO SCH (22:33)
[2018-06-12] MEDS: Gabapentin 300 MG Capsule PO SCH ×4 (00:38→19:14)
[2018-06-12] MEDS: Insulin NovoLIN Regular Correctional Sugar Inj SQ SCH ×5 (00:55→19:14)
--- NOTE | 2018-06-12 04:20 | XR ---
EXAM DATE: 06/12/2018 4:01 AM EDT AGE/SEX: 72 years / Male INDICATIONS: Pneumonia. Short of breath. CLINICAL DATA: This is the patient's subsequent encounter. Patient reports that signs and symptoms h ave been present for 4 - 6 days and indicates a pain score of 5/10. MEDICAL/SURGICAL HISTORY: None. None. COMPARISON: [facility], CHEST 1V SINGLE AP, 06/06/2018. . FINDINGS: A single AP view of the chest demonstrates the lungs to be symmetrically aerated without evidence of mass, infiltrate or effusion. The cardiomediastinal contours are unremarkable. Osseous structures a re intact. CONCLUSION: No acute cardiopulmonary process. Electronically signed by: Xander Chowdhury MD 06/12/2018 4:19 AM EDT
--- NOTE | 2018-06-12 09:00 | P.PNIM ---
Subjective Interval history: f/u; respiratory failure resting comfortably with no sob or pain. no fever. Physical Exam Vital signs: Vital Signs 06/11/18 09:00 06/11/18 10:00 06/11/18 11:00 Temperature Pulse Rate 76 79 73 Respiratory Rate 15 15 13 Blood Pressure 125/60 135/66 124/59 L Pulse Oximetry 98 98 98 06/11/18 12:00 06/11/18 12:01 06/11/18 13:01 Temperature Pulse Rate 79 77 80 Respiratory Rate 16 13 Blood Pressure 119/56 L 126/58 L Pulse Oximetry 93 L 94 L 06/11/18 14:00 06/11/18 14:40 06/11/18 15:00 Temperature Pulse Rate 70 69 Respiratory Rate 16 16 Blood Pressure 119/58 L 122/58 L Pulse Oximetry 99 99 98 06/11/18 16:00 06/11/18 17:00 06/11/18 18:00 Temperature Pulse Rate 70 70 80 Respiratory Rate 13 14 Blood Pressure 130/59 L 134/65 Pulse Oximetry 98 98 06/11/18 18:01 06/11/18 20:00 06/11/18 23:00 Temperature 97.8 F 97.6 F Pulse Rate 74 80 82 Respiratory Rate 10 L 18 Blood Pressure 119/59 L 124/78 Pulse Oximetry 98 95 06/12/18 00:00 06/12/18 02:00 06/12/18 04:00 Temperature 97.6 F 97.5 F L Pulse Rate 78 82 Respiratory Rate 18 18 Blood Pressure 127/55 L 125/59 L Pulse Oximetry 95 97 95 Intake & Output 06/11/18 06/12/18 06/12/18 18:59 06:59 18:59 Intake Total 450 / 450 480 / 480 Output Total 1000 / 1000 600 / 600 Balance -550 / -550 -120 / -120 Weight 176.6 kg Intake: IV 100 / 100 Azactam Inj 1,000 MG In NS Inj 100 / 100 100 ML @ 200 mls/hr IV.SIG Q8H [facility] Rx#:[id number] Oral 350 / 350 480 / 480 Output: Urine 1000 / 1000 600 / 600 Other: Date of Last Bowel Movement 06/10/18 06/11/18 - Constitutional no acute distress - Routine Respiratory Exam Present: CTA bilaterally - Routine Cardiovascular Exam Present: RRR - Routine Abdominal Exam Present: soft - Routine Extremities Exam Comments: no pedal edema. - Routine Neurological Exam Present: alert, oriented X3 - Urinary Catheter Management Indwelling Urethral Catheter Cath placed during this visit: yes Reason for continuing: Hourly intake/output Insertion date: 06/01/18 Insertion time: 18:05 100 Cath placed during this visit: yes, but has since been removed by the nurse Reason for continuing: Hourly intake/output Removal date: 06/09/18 Removal time: 16:00 Results - Labs CBC & Chem 7: 06/10/18 05:05 06/10/18 05:05 Laboratory Results - last 24 hr 06/11/18 06/11/18 06/11/18 10:24 16:26 20:09 POC Glucose 161 H 155 H 150 H 06/12/18 06/12/18 06/12/18 00:41 05:17 07:34 POC Glucose 247 H 202 H 157 H - Imaging Impressions Chest X-Ray 06/12/18 00:00 CONCLUSION: No acute cardiopulmonary process. Assessment and Plan - Plan 1. Respiratory Insufficiency On Oxygen to keep Oxygen saturation above 92%. Bronchodilator, Mucolytic, Incentive spirometry, CT chest: Atelectasis and mild consolidation in the left lung base which could represent early pneumonia. CXR today with no acute abnormality. continue Levaquin to finish the course of antibiotic treatment. pulmonary following. 2. Hyperglycemic Hyperosmolar syndrome, was on Insulin drip. now Sliding scale. Increased Levemir to 20 units BID, better blood sugar control. following. 3. Acute encephalopathy Improved, avoid sedatives, CT brain no acute findings, EEG showed diffuse encephalopathy no seizure activity. 4. Non STEMI Keep MAP>65 mm Hg. Echocardiogram unable to assess EF, Aspirin, Statin, Coreg. cardiology signed off. 5. JOSE Renal Ultrasound no hydronephrosis, Left kidney non visualized, Nephrology specialist following, Creatinine improving- 6. Elevated AST Gallbladder is at the upper limits of normal in size with no evidence of cholelithiasis or biliary obstruction. On Pepcid for GI prophylaxis 7. Hypertension Uncontrolled adjusted medicines. started on Coreg 3.125 mg BID. Amlodipine 5 mg better control. 8. UTI Continue Levaquin. Goup D enterococcus in Urine, Blood culture Staph Haemolyticus- likely contamination; repeated blood cultures negative. 9. Morbid Obesity strongly recommended diet and exercise as outpatient Discharge Planning: dc planning to rehab within the next 24 hrs.
[2018-06-12] MEDS: levoFLOXacin 500 MG Tablet PO SCH (10:17)
[2018-06-12] MEDS: Aspirin 325 MG Tablet PO SCH (10:17)
[2018-06-12] MEDS: amLODIPine 5 MG Tablet PO SCH (10:17)
[2018-06-12] MEDS: Senna/Docusate Sodium 8.6/50 MG Tablet PO SCH (10:18)
[2018-06-12] MEDS: Famotidine PF Inj 20 MG/2 ML Vial IV.PUSH SCH (10:18)
[2018-06-12] MEDS: Insulin Detemir Inj 1,000 UNIT/10 ML Vial SQ SCH (10:18)
[2018-06-12] MEDS: Heparin - SQ 10,000 UNITS/ML Vial SQ SCH (10:19)
--- NOTE | 2018-06-12 11:40 | P.DS ---
Date of admission: 06/01/18 19:59 Primary care physician: UNKNOWN Brief History from admission: 72-year-old morbidly obese male with history of diabetes, multiple medical issues, presents because a marketing analytics manager found him in the bathroom slumped over. Apparently he was last seen normal this morning around 10 AM, but patient is currently fairly disoriented, not able to answer many questions. EMS found his blood sugars reading high, and his blood pressures were low. His sugars in the emergency department were extremely high, his beta butyric acid is negative. His second troponin was also found to be 27. DS: Summary Hospital Course: patient was admitted with NSTEMI/ respiratory failure/ JOSE and acute encephalopathy. he was seen by cardiology, nephrology and pulmonary services. cardiology recommended medical treatment; amlodipine, hydralazine and coreg were added to his regimen. Valsartan and Lisinopril were discontinued due to acute kidney injury. his renal function gradually improved.he was switched to oral levaquin to finish the course of his antibiotic treatment.his initial blood cultures were positive for staph- coag negative-likely contamination- his repeated blood cultures were negative. his UC with enterococcus faecalis.he will have a f/u with the above-noted consultants upon discharge. - Time Spent with Patient Total time spent providing and/or coordinating discharge services: Greater than 30 minutes (40 min.) - Quality: VTE Deep Vein Thrombosis/Pulmonary Embolism Present on Admission: No Exam Vital signs: Vital Signs 06/11/18 12:00 06/11/18 12:01 06/11/18 13:01 Temperature Pulse Rate 79 77 80 Respiratory Rate 16 13 Blood Pressure 119/56 L 126/58 L Pulse Oximetry 93 L 94 L 06/11/18 14:00 06/11/18 14:40 06/11/18 15:00 Temperature Pulse Rate 70 69 Respiratory Rate 16 16 Blood Pressure 119/58 L 122/58 L Pulse Oximetry 99 99 98 06/11/18 16:00 06/11/18 17:00 06/11/18 18:00 Temperature Pulse Rate 70 70 80 Respiratory Rate 13 14 Blood Pressure 130/59 L 134/65 Pulse Oximetry 98 98 06/11/18 18:01 06/11/18 20:00 06/11/18 23:00 Temperature 97.8 F 97.6 F Pulse Rate 74 80 82 Respiratory Rate 10 L 18 Blood Pressure 119/59 L 124/78 Pulse Oximetry 98 95 06/12/18 00:00 06/12/18 02:00 06/12/18 04:00 Temperature 97.6 F 97.5 F L Pulse Rate 78 82 Respiratory Rate 18 18 Blood Pressure 127/55 L 125/59 L Pulse Oximetry 95 97 95 06/12/18 08:00 06/12/18 09:51 Temperature 98.0 F Pulse Rate 82 Respiratory Rate 20 Blood Pressure 114/54 L Pulse Oximetry 95 95 Intake & Output 06/11/18 06/12/18 06/12/18 18:59 06:59 18:59 Intake Total 450 / 450 480 / 480 Output Total 1000 / 1000 600 / 600 Balance -550 / -550 -120 / -120 Weight 176.6 kg Intake: IV 100 / 100 Azactam Inj 1,000 MG In NS Inj 100 / 100 100 ML @ 200 mls/hr IV.SIG Q8H SHAHEED Rx#:[id number] Oral 350 / 350 480 / 480 Output: Urine 1000 / 1000 600 / 600 Other: Date of Last Bowel Movement 06/10/18 06/11/18 06/11/18 - Constitutional no acute distress - Routine Neck Exam Present: supple - Routine Respiratory Exam Present: CTA bilaterally - Routine Cardiovascular Exam Present: RRR - Routine Abdominal Exam Present: soft - Routine Extremities Exam Comments: no pedal edema. - Routine Neurological Exam Present: alert, oriented X3 Results Procedures completed during hospitalization: none. Labs on day of discharge: Labs from last 24 hours 06/12/18 06/12/18 06/12/18 07:34 05:17 00:41 POC Glucose 157 H 202 H 247 H 06/11/18 06/11/18 20:09 16:26 POC Glucose 150 H 155 H - Impressions ITS Impressions Head CT 06/01/18 18:07 CONCLUSION: 1. No acute intracranial abnormality is demonstrated. 2. 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 . Abdomen Ultrasound 06/02/18 00:00 CONCLUSION: 1. Suboptimal examination. 2. Enlarged liver with apparent hepatic steatosis. No focal lesion is identified. 3. The gallbladder is at the upper limits of normal in size with no evidence of cholelithiasis or biliary obstruction. 4. Right kidney appears increased in echogenicity which could indicate medical renal disease. There is no hydronephrosis. 5. Nonvisualization evaluation of the left kidney, pancreas and spleen. Portions of the aorta was not well visualized as well. Chest CT 06/07/18 00:00 CONCLUSION: 1. Atelectasis and mild consolidation in the left lung base which could represent early pneumonia. 2. Mild cardiomegaly and coronary artery calcifications. Chest X-Ray 06/12/18 00:00 CONCLUSION: No acute cardiopulmonary process. Discharge Plan - Discharge Disposition Patient Disposition: 03 Discharge to SNF - Discharge Condition Condition: Fair - Discharge Details Anticipated Discharge Date: 06/01/18 - Physicians Team Primary Care Provider: UNKNOWN, Attending Provider: Dianne Duke Other Providers: Yariel Borjas MD ; Mike Hinkle MD ; Xander Nick MD ; Edwige Gibbons ; [facility],[place]
--- NOTE | 2018-06-12 17:00 | P.PN ---
Subjective Interval history: Awake and stable off o2. No chest pains. Will go to rehab. Off BIPAP now. Physical Exam Vital signs: Vital Signs 06/11/18 17:00 06/11/18 18:00 06/11/18 18:01 Temperature 97.8 F Pulse Rate 70 80 74 Respiratory Rate 14 10 L Blood Pressure 134/65 119/59 L Pulse Oximetry 98 98 06/11/18 20:00 06/11/18 23:00 06/12/18 00:00 Temperature 97.6 F 97.6 F Pulse Rate 80 82 78 Respiratory Rate 18 18 Blood Pressure 124/78 127/55 L Pulse Oximetry 95 95 06/12/18 02:00 06/12/18 04:00 06/12/18 08:00 Temperature 97.5 F L 98.0 F Pulse Rate 82 81 Respiratory Rate 18 20 Blood Pressure 125/59 L 114/54 L Pulse Oximetry 97 95 95 06/12/18 09:51 06/12/18 12:00 Temperature 97.3 F L Pulse Rate 77 Respiratory Rate 20 Blood Pressure 150/66 H Pulse Oximetry 95 94 L Intake & Output 06/11/18 06/12/18 06/12/18 18:59 06:59 18:59 Intake Total 450 / 450 480 / 480 Output Total 1000 / 1000 600 / 600 Balance -550 / -550 -120 / -120 Weight 176.6 kg Intake: IV 100 / 100 Azactam Inj 1,000 MG In NS Inj 100 / 100 100 ML @ 200 mls/hr IV.SIG Q8H SHAHEED Rx#:[id number] Oral 350 / 350 480 / 480 Output: Urine 1000 / 1000 600 / 600 Other: Date of Last Bowel Movement 06/10/18 06/11/18 06/11/18 Narrative: GENERAL: No acute distress, very Obese W/M . SKIN: Warm and dry. HEAD: Normocephalic.Throat clear. EYES: No scleral icterus. No injection or drainage. NECK: Supple, trachea midline. No JVD or lymphadenopathy. CARDIOVASCULAR: Regular rate and rhythm without murmurs, gallops, or rubs. RESPIRATORY: Breath sounds equal bilaterally. No accessory muscle use. GASTROINTESTINAL: Abdomen soft, non-tender, nondistended. MUSCULOSKELETAL: No cyanosis, edema 1 +. Right arm dressing with healing wounds. Neuro: Awake and alert - Urinary Catheter Management Indwelling Urethral Catheter Cath placed during this visit: yes Reason for continuing: Hourly intake/output Insertion date: 06/01/18 Insertion time: 18:05 100 Cath placed during this visit: yes, but has since been removed by the nurse Reason for continuing: Hourly intake/output Removal date: 06/09/18 Removal time: 16:00 Results - Labs CBC & Chem 7: 06/10/18 05:05 06/10/18 05:05 Laboratory Results - last 24 hr 06/11/18 06/12/18 06/12/18 20:09 00:41 05:17 POC Glucose 150 H 247 H 202 H 06/12/18 06/12/18 07:34 12:22 POC Glucose 157 H 128 H - Imaging Impressions Chest X-Ray 06/12/18 00:00 CONCLUSION: No acute cardiopulmonary process. - Procedures none. Assessment and Plan - Assessment (1) SHEELA (obstructive sleep apnea) Code(s): G47.33 - Obstructive sleep apnea (adult) (pediatric) Status: Acute (2) COPD (chronic obstructive pulmonary disease) Code(s): J44.9 - Chronic obstructive pulmonary disease, unspecified Status: Acute (3) NSTEMI (non-ST elevated myocardial infarction) Code(s): I21.4 - Non-ST elevation (NSTEMI) myocardial infarction Status: Acute (4) Kidney disease Code(s): N28.9 - Disorder of kidney and ureter, unspecified Status: Acute (5) Morbid obesity Code(s): E66.01 - Morbid (severe) obesity due to excess calories Status: Acute (6) Diabetes Code(s): E11.9 - Type 2 diabetes mellitus without complications Status: Acute (7) Hypertension Code(s): I10 - Essential (primary) hypertension Status: Acute (8) Altered mental state Code(s): R41.82 - Altered mental status, unspecified Status: Acute (9) HHNC (hyperglycemic hyperosmolar nonketotic coma) Code(s): E11.01 - Type 2 diabetes mellitus with hyperosmolarity with coma Status: Acute (10) JOSE (acute kidney injury) Code(s): N17.9 - Acute kidney failure, unspecified Status: Acute - Plan 1. To Rehab today 2. Will arrange a Sleep study as OP 3. Duoneb nebs qid. 4. Continue Amlodipine and Coreg . 5. Cont Levaquin 500 mg daily X 4 . 6. Up with help and PT.IS at bedside q2h 7. Use BiPAP 15/5 cm at HS and PRN
[2018-06-13] MEDS: Insulin NovoLIN Regular Correctional Sugar Inj SQ SCH ×7 (00:21→21:41)
[2018-06-13] MEDS: Zolpidem Tartrate 5 MG Tablet PO SCH ×2 (00:22→21:40)
[2018-06-13] MEDS: Heparin - SQ 10,000 UNITS/ML Vial SQ SCH ×3 (00:22→21:41)
[2018-06-13] MEDS: Famotidine PF Inj 20 MG/2 ML Vial IV.PUSH SCH ×3 (00:23→21:40)
[2018-06-13] MEDS: Insulin Detemir Inj 1,000 UNIT/10 ML Vial SQ SCH ×3 (00:23→21:42)
[2018-06-13] MEDS: Senna/Docusate Sodium 8.6/50 MG Tablet PO SCH ×3 (00:25→21:40)
[2018-06-13] MEDS: Finasteride 5 MG Tablet PO SCH ×2 (00:25→21:40)
[2018-06-13] MEDS: Gabapentin 300 MG Capsule PO SCH ×4 (01:57→19:35)
[2018-06-13] MEDS: levoFLOXacin 500 MG Tablet PO SCH (09:42)
[2018-06-13] MEDS: Aspirin 325 MG Tablet PO SCH (09:42)
[2018-06-13] MEDS: amLODIPine 5 MG Tablet PO SCH (09:42)
--- NOTE | 2018-06-13 09:46 | P.PNIM ---
Subjective Interval history: in no acute distress. denies chest pain or sob. no fever. d/w the RN and no acute issues over night. Physical Exam Vital signs: Vital Signs 06/12/18 09:51 06/12/18 12:00 06/12/18 16:00 Temperature 97.3 F L 97.3 F L Pulse Rate 77 82 Respiratory Rate 20 17 Blood Pressure 150/66 H 142/60 H Pulse Oximetry 95 94 L 91 L 06/12/18 20:00 06/13/18 00:00 06/13/18 04:00 Temperature 97.9 F 97.9 F 98.1 F Pulse Rate 85 84 71 Respiratory Rate 20 19 20 Blood Pressure 128/58 L 130/84 128/61 Pulse Oximetry 97 94 L 94 L 06/13/18 08:00 Temperature 97.7 F Pulse Rate 85 Respiratory Rate 14 Blood Pressure 121/60 Pulse Oximetry 94 L Intake & Output 06/12/18 06/13/18 06/13/18 18:59 06:59 18:59 Intake Total 240 / 240 Output Total 550 / 550 Balance -310 / -310 Weight 176.6 kg Intake: Oral 240 / 240 Output: Urine 550 / 550 Other: # Incontinent Voids 4 Date of Last Bowel Movement 06/11/18 06/11/18 # Incontinent Bowel Movements 3 - Constitutional no acute distress - Routine Respiratory Exam Present: CTA bilaterally - Routine Cardiovascular Exam Present: RRR - Routine Abdominal Exam Present: soft - Routine Extremities Exam Comments: no pedal edema. - Routine Neurological Exam Present: alert, oriented X3 - Urinary Catheter Management Indwelling Urethral Catheter Cath placed during this visit: yes Reason for continuing: Hourly intake/output Insertion date: 06/01/18 Insertion time: 18:05 100 Cath placed during this visit: yes, but has since been removed by the nurse Reason for continuing: Hourly intake/output Removal date: 06/09/18 Removal time: 16:00 Results - Labs CBC & Chem 7: 06/10/18 05:05 06/10/18 05:05 Laboratory Results - last 24 hr 06/12/18 06/12/18 06/12/18 12:22 16:54 20:05 POC Glucose 128 H 158 H 263 H 06/13/18 06/13/18 06/13/18 01:04 04:40 07:30 POC Glucose 248 H 211 H 127 H - Procedures none. Assessment and Plan - Plan 1. Respiratory Insufficiency On Oxygen to keep Oxygen saturation above 92%- improved. Bronchodilator, Mucolytic, Incentive spirometry, CT chest: Atelectasis and mild consolidation in the left lung base which could represent early pneumonia. continue Levaquin to finish the course of antibiotic treatment. pulmonary follow-up appreciated; cleared for discharge. 2. Hyperglycemic Hyperosmolar syndrome, was on Insulin drip. now Sliding scale. Increased Levemir to 20 units BID, better blood sugar control. 3. Acute encephalopathy Improved, avoid sedatives, CT brain no acute findings, EEG showed diffuse encephalopathy no seizure activity. 4. Non STEMI Keep MAP>65 mm Hg. Echocardiogram unable to assess EF, Aspirin, Statin, Coreg. cardiology signed off. 5. JOSE Renal Ultrasound no hydronephrosis, Left kidney non visualized, Nephrology specialist following, Creatinine improving- 6. Elevated AST Gallbladder is at the upper limits of normal in size with no evidence of cholelithiasis or biliary obstruction. On Pepcid for GI prophylaxis 7. Hypertension Uncontrolled adjusted medicines. started on Coreg 3.125 mg BID. Amlodipine 5 mg daily- better control. 8. UTI Continue Levaquin. Goup D enterococcus in Urine, Blood culture Staph Haemolyticus- likely contamination; repeated blood cultures negative. 9. Morbid Obesity strongly recommended diet and exercise as outpatient Discharge Planning: dc to rehab today. see med list. f/u; pcp, cardiology and pulmonary. d/w the patient and RN. time spent 40 min.
[2018-06-13 12:25] LABS: Chol/HDL Ratio 3.21 Ratio; HDL Cholesterol 32.7 mg/dL (40.0-60.0)
--- NOTE | 2018-06-13 16:29 | P.PN ---
Subjective Interval history: Off O2 and doing well. Used BIPAP at HS. No chest pains. Physical Exam Vital signs: Vital Signs 06/12/18 20:00 06/13/18 00:00 06/13/18 04:00 Temperature 97.9 F 97.9 F 98.1 F Pulse Rate 85 84 71 Respiratory Rate 20 19 20 Blood Pressure 128/58 L 130/84 128/61 Pulse Oximetry 97 94 L 94 L 06/13/18 07:45 06/13/18 08:00 06/13/18 12:00 Temperature 97.7 F 98.3 F Pulse Rate 77 85 79 Respiratory Rate 14 14 Blood Pressure 121/60 93/44 L Pulse Oximetry 94 L 90 L 06/13/18 12:24 Temperature Pulse Rate 79 Respiratory Rate Blood Pressure Pulse Oximetry Intake & Output 06/12/18 06/13/18 06/13/18 18:59 06:59 18:59 Intake Total 240 / 240 Output Total 550 / 550 Balance -310 / -310 Weight 176.6 kg Intake: Oral 240 / 240 Output: Urine 550 / 550 Other: # Incontinent Voids 4 Date of Last Bowel Movement 06/11/18 06/11/18 06/12/18 # Incontinent Bowel Movements 3 Narrative: GENERAL: No acute distress, very Obese W/M . SKIN: Warm and dry. HEAD: Normocephalic.Throat clear. EYES: No scleral icterus. No injection or drainage. NECK: Supple, trachea midline. No JVD or lymphadenopathy. CARDIOVASCULAR: Regular rate and rhythm without murmurs, gallops, or rubs. RESPIRATORY: Breath sounds equal bilaterally.Decreased breath sounds at bases. No accessory muscle use. GASTROINTESTINAL: Abdomen soft, non-tender, nondistended. MUSCULOSKELETAL: No cyanosis, edema 1 +. Right arm dressing with healing wounds. Neuro: Awake and alert - Urinary Catheter Management Indwelling Urethral Catheter Cath placed during this visit: yes Reason for continuing: Hourly intake/output Insertion date: 06/01/18 Insertion time: 18:05 100 Cath placed during this visit: yes, but has since been removed by the nurse Reason for continuing: Hourly intake/output Removal date: 06/09/18 Removal time: 16:00 Results - Labs CBC & Chem 7: 06/10/18 05:05 06/10/18 05:05 Laboratory Results - last 24 hr 06/12/18 06/12/18 06/13/18 16:54 20:05 01:04 POC Glucose 158 H 263 H 248 H Triglycerides Cholesterol LDL Cholesterol, Calc HDL Cholesterol Cholesterol/HDL Ratio 06/13/18 06/13/18 06/13/18 04:40 07:30 11:20 POC Glucose 211 H 127 H Triglycerides 160 H Cholesterol 105 L LDL Cholesterol, Calc 40 HDL Cholesterol 32.7 L Cholesterol/HDL Ratio 3.21 06/13/18 06/13/18 12:18 16:09 POC Glucose 147 H 117 H Triglycerides Cholesterol LDL Cholesterol, Calc HDL Cholesterol Cholesterol/HDL Ratio - Procedures none. Assessment and Plan - Assessment (1) SHEELA (obstructive sleep apnea) Code(s): G47.33 - Obstructive sleep apnea (adult) (pediatric) Status: Acute (2) COPD (chronic obstructive pulmonary disease) Code(s): J44.9 - Chronic obstructive pulmonary disease, unspecified Status: Acute (3) NSTEMI (non-ST elevated myocardial infarction) Code(s): I21.4 - Non-ST elevation (NSTEMI) myocardial infarction Status: Acute (4) Kidney disease Code(s): N28.9 - Disorder of kidney and ureter, unspecified Status: Acute (5) Morbid obesity Code(s): E66.01 - Morbid (severe) obesity due to excess calories Status: Acute (6) Diabetes Code(s): E11.9 - Type 2 diabetes mellitus without complications Status: Acute (7) Hypertension Code(s): I10 - Essential (primary) hypertension Status: Acute (8) Altered mental state Code(s): R41.82 - Altered mental status, unspecified Status: Acute (9) HHNC (hyperglycemic hyperosmolar nonketotic coma) Code(s): E11.01 - Type 2 diabetes mellitus with hyperosmolarity with coma Status: Acute (10) JOSE (acute kidney injury) Code(s): N17.9 - Acute kidney failure, unspecified Status: Acute - Plan 1. To Rehab in am. 2. Will arrange a Sleep study as OP 3. Cont Duoneb nebs qid. 4. Continue Amlodipine and Coreg . 5. Cont Levaquin 500 mg daily X 2. 6. Up with help and PT.IS at bedside q2h 7. Use BiPAP 15/5 cm at HS and PRN 8. Will see as OP in 2 weeks.
[2018-06-14] MEDS: Gabapentin 300 MG Capsule PO SCH ×3 (00:30→12:43)
[2018-06-14] MEDS: Insulin NovoLIN Regular Correctional Sugar Inj SQ SCH ×4 (00:35→12:43)
[2018-06-14] MEDS: Famotidine PF Inj 20 MG/2 ML Vial IV.PUSH SCH (09:43)
[2018-06-14] MEDS: levoFLOXacin 500 MG Tablet PO SCH (09:44)
[2018-06-14] MEDS: Aspirin 325 MG Tablet PO SCH (09:44)
[2018-06-14] MEDS: amLODIPine 5 MG Tablet PO SCH (09:44)
[2018-06-14] MEDS: Heparin - SQ 10,000 UNITS/ML Vial SQ SCH (09:45)
[2018-06-14] MEDS: Insulin Detemir Inj 1,000 UNIT/10 ML Vial SQ SCH (09:45)
[2018-06-14] MEDS: Senna/Docusate Sodium 8.6/50 MG Tablet PO SCH (09:45)
--- NOTE | 2018-06-14 10:42 | P.PNIM ---
Subjective Interval history: in no distress. no new complaints. awaiting transfer to rehab. Physical Exam Vital signs: Vital Signs 06/13/18 12:00 06/13/18 12:24 06/13/18 16:00 Temperature 98.3 F 97.6 F Pulse Rate 79 79 85 Respiratory Rate 14 16 Blood Pressure 93/44 L 119/60 Pulse Oximetry 90 L 93 L 06/13/18 16:13 06/13/18 20:00 06/13/18 23:51 Temperature 97.8 F Pulse Rate 80 72 Respiratory Rate 18 Blood Pressure 131/64 Pulse Oximetry 95 96 06/14/18 00:00 06/14/18 04:00 06/14/18 08:00 Temperature 97.9 F 97.5 F L 97.7 F Pulse Rate 85 79 79 Respiratory Rate 20 18 20 Blood Pressure 137/62 119/55 L 135/58 L Pulse Oximetry 95 98 96 Intake & Output 06/13/18 06/14/18 06/14/18 18:59 06:59 18:59 Intake Total 420 / 420 Balance 420 / 420 Weight 176.6 kg Intake: Oral 420 / 420 Other: # Incontinent Voids 5 Date of Last Bowel Movement 06/12/18 06/12/18 # Incontinent Bowel Movements 2 - Constitutional no acute distress - Routine Respiratory Exam Present: CTA bilaterally - Routine Cardiovascular Exam Present: RRR - Routine Abdominal Exam Present: soft - Routine Extremities Exam Comments: no pedal edema. - Routine Neurological Exam Present: alert, oriented X3 - Urinary Catheter Management Indwelling Urethral Catheter Cath placed during this visit: yes Reason for continuing: Hourly intake/output Insertion date: 06/01/18 Insertion time: 18:05 100 Cath placed during this visit: yes, but has since been removed by the nurse Reason for continuing: Hourly intake/output Removal date: 06/09/18 Removal time: 16:00 Results - Labs CBC & Chem 7: 06/10/18 05:05 06/10/18 05:05 Laboratory Results - last 24 hr 06/13/18 06/13/18 06/13/18 11:20 12:18 16:09 POC Glucose 147 H 117 H Triglycerides 160 H Cholesterol 105 L LDL Cholesterol, Calc 40 HDL Cholesterol 32.7 L Cholesterol/HDL Ratio 3.21 06/13/18 06/14/18 06/14/18 20:10 00:30 04:12 POC Glucose 233 H 226 H 199 H Triglycerides Cholesterol LDL Cholesterol, Calc HDL Cholesterol Cholesterol/HDL Ratio 06/14/18 08:02 POC Glucose 130 H Triglycerides Cholesterol LDL Cholesterol, Calc HDL Cholesterol Cholesterol/HDL Ratio - Procedures none. Assessment and Plan - Plan 1. Respiratory Insufficiency On Oxygen to keep Oxygen saturation above 92%- improved. Bronchodilator, Mucolytic, Incentive spirometry, CT chest: Atelectasis and mild consolidation in the left lung base which could represent early pneumonia. continue Levaquin to finish the course of antibiotic treatment. pulmonary follow-up appreciated; cleared for discharge. 2. Hyperglycemic Hyperosmolar syndrome, was on Insulin drip. now Sliding scale. Increased Levemir to 20 units BID, better blood sugar control. 3. Acute encephalopathy Improved, avoid sedatives, CT brain no acute findings, EEG showed diffuse encephalopathy no seizure activity. 4. Non STEMI Keep MAP>65 mm Hg. Echocardiogram unable to assess EF, Aspirin, Statin, Coreg. cardiology signed off. 5. JOSE Renal Ultrasound no hydronephrosis, Left kidney non visualized, Nephrology specialist following, Creatinine improving- 6. Elevated AST Gallbladder is at the upper limits of normal in size with no evidence of cholelithiasis or biliary obstruction. On Pepcid for GI prophylaxis 7. Hypertension Uncontrolled adjusted medicines. started on Coreg 3.125 mg BID. Amlodipine 5 mg daily- better control. 8. UTI Continue Levaquin. Goup D enterococcus in Urine, Blood culture Staph Haemolyticus- likely contamination; repeated blood cultures negative. 9. Morbid Obesity strongly recommended diet and exercise as outpatient Discharge Planning: dc to rehab when arrangements made. see med list. f/u; pcp, cardiology and pulmonary. d/w the patient and RN. time spent 40 min.
--- NOTE | 2018-06-14 13:03 | P.PN ---
Subjective Interval history: He is alert and doing well on O2 2 L. Off CPAP . Needs Sleep study. Physical Exam Vital signs: Vital Signs 06/13/18 16:00 06/13/18 16:13 06/13/18 20:00 Temperature 97.6 F 97.8 F Pulse Rate 85 80 72 Respiratory Rate 16 18 Blood Pressure 119/60 131/64 Pulse Oximetry 93 L 95 06/13/18 23:51 06/14/18 00:00 06/14/18 04:00 Temperature 97.9 F 97.5 F L Pulse Rate 85 79 Respiratory Rate 20 18 Blood Pressure 137/62 119/55 L Pulse Oximetry 96 95 98 06/14/18 08:00 06/14/18 10:48 Temperature 97.7 F Pulse Rate 79 Respiratory Rate 20 Blood Pressure 135/58 L Pulse Oximetry 96 95 Intake & Output 06/13/18 06/14/18 06/14/18 18:59 06:59 18:59 Intake Total 420 / 420 Balance 420 / 420 Weight 176.6 kg Intake: Oral 420 / 420 Other: # Incontinent Voids 5 Date of Last Bowel Movement 06/12/18 06/12/18 # Incontinent Bowel Movements 2 Narrative: GENERAL: No acute distress, very Obese W/M . SKIN: Warm and dry. HEAD: Normocephalic.Throat clear. EYES: No scleral icterus. No injection or drainage. NECK: Supple, trachea midline. No JVD or lymphadenopathy. CARDIOVASCULAR: Regular rate and rhythm without murmurs, gallops, or rubs. RESPIRATORY: Breath sounds equal bilaterally.Decreased breath sounds at bases.Occ wheeze. No accessory muscle use. GASTROINTESTINAL: Abdomen soft, non-tender, nondistended. MUSCULOSKELETAL: No cyanosis, edema 1 +. Right arm dressing with healing wounds. Neuro: Awake and alert - Urinary Catheter Management Indwelling Urethral Catheter Cath placed during this visit: yes Reason for continuing: Hourly intake/output Insertion date: 06/01/18 Insertion time: 18:05 100 Cath placed during this visit: yes, but has since been removed by the nurse Reason for continuing: Hourly intake/output Removal date: 06/09/18 Removal time: 16:00 Results - Labs CBC & Chem 7: 06/10/18 05:05 06/10/18 05:05 Laboratory Results - last 24 hr 06/13/18 06/13/1806/14/18 16:09 20:10 00:30 POC Glucose 117 H 233 H 226 H 06/14/18 06/14/18 06/14/18 04:12 08:02 12:00 POC Glucose 199 H 130 H 185 H - Procedures none. Assessment and Plan - Assessment (1) SHEELA (obstructive sleep apnea) Code(s): G47.33 - Obstructive sleep apnea (adult) (pediatric) Status: Acute (2) COPD (chronic obstructive pulmonary disease) Code(s): J44.9 - Chronic obstructive pulmonary disease, unspecified Status: Acute (3) NSTEMI (non-ST elevated myocardial infarction) Code(s): I21.4 - Non-ST elevation (NSTEMI) myocardial infarction Status: Acute (4) Kidney disease Code(s): N28.9 - Disorder of kidney and ureter, unspecified Status: Acute (5) Morbid obesity Code(s): E66.01 - Morbid (severe) obesity due to excess calories Status: Acute (6) Diabetes Code(s): E11.9 - Type 2 diabetes mellitus without complications Status: Acute (7) Hypertension Code(s): I10 - Essential (primary) hypertension Status: Acute (8) Altered mental state Code(s): R41.82 - Altered mental status, unspecified Status: Acute (9) HHNC (hyperglycemic hyperosmolar nonketotic coma) Code(s): E11.01 - Type 2 diabetes mellitus with hyperosmolarity with coma Status: Acute (10) JOSE (acute kidney injury) Code(s): N17.9 - Acute kidney failure, unspecified Status: Acute - Plan 1. To Rehab today 2. Will arrange a Sleep study as OP 3. Cont Duoneb nebs qid. 4. Continue Amlodipine and Coreg . 5. D/C Levaquin . 6. Up with help and PT.IS at bedside q2h 7. D/C BiPAP and will arrange home CPAP after sleep study 8. Will see as OP in 2 weeks.
== END 2018-06-14 15:58 ==
LOC: NEPC 17:51 → NEDA 19:59 → HIMC 06-02 05:40 → N04 06-11 18:51
PROVIDERS: ADMIT Internal Medicine; ATTEND Internal Medicine

== ENCOUNTER 2018-08-06 01:05 | Inpatient (IN) ==
--- NOTE | 2018-08-06 02:28 | ED ---
HPI General Chief complaint: Shortness of Breath/Dyspnea Stated complaint: Medical Time Seen by Provider: 08/06/18 01:58 Source: patient, EMS, RN notes reviewed and old records reviewed Mode of arrival: EMS Limitations: other History of Present Illness HPI narrative: Is a 73-year-old man presents to the emergency department with shortness of breath. Review of nursing records shows that he was admitted for pneumonia in the hospital in May. He was admitted from home. He is been wheelchair and bedbound since. He did not really walk before. He is been in [facility] since discharge. Review of his records from there show that he has been started on IV Zyvox for MRSA wound infection in his leg. He was also just started on Levaquin for pneumonia. He reportedly had low oxygen saturations in the 70s last night, EMS was called and he refused to go, was seen by provider today, x-ray was ordered. Patient was set up for worsening respiratory distress hypoxia and pneumonia. Patient is unable to provide much additional history himself. Reports some shortness of breath. Appears very debilitated and chronically obese. Related Data Home Medications Medication Instructions Recorded Confirmed aspirin 325 mg PO DAILY 06/01/18 06/01/18 atorvastatin [Lipitor] 20 mg PO HS 06/01/18 06/01/18 duloxetine [Cymbalta] 30 mg PO DAILY 06/01/18 06/01/18 dutasteride [Avodart] 0.5 mg PO QPM 06/01/18 06/01/18 gabapentin 300 mg PO Q6HR 06/01/18 06/01/18 pantoprazole [Protonix] 40 mg PO DAILY 06/01/18 06/01/18 tamsulosin [Flomax] 0.4 mg PO BID 06/01/18 06/01/18 Previous Rx's Medication Instructions Recorded amlodipine [Norvasc] 5 mg PO DAILY tab 06/12/18 carvedilol [Coreg] 3.125 mg PO BID tab 06/12/18 hydralazine 50 mg PO TID tab 06/12/18 insulin detemir U-100 [Levemir 20 unit SUB-Q BID ml 06/12/18 U-100 Insulin] insulin regular human [Novolin R 0 units SUB-Q Q4HR ml 06/12/18 Regular U-100 Insuln] Allergies Allergy/AdvReac Type Severity Reaction Status Date / Time No Known Allergies Allergy Verified 08/06/18 01:24 Review of Systems ROS Unobtainable ROS Unobtainable: unobtainable due to mental status [facility] Medical History Medical History Obesity (Chronic) Depression (Chronic) Diabetes (Chronic) Diabetes (Chronic) GERD (gastroesophageal reflux disease) (Chronic) HTN (hypertension) (Chronic) High cholesterol (Chronic) Neuropathy (Chronic) Social History Social History Substance History: No History of Abuse Second Hand Smoke Exposure: No Smoking Status: Former smoker Tobacco Type: Cigarettes How Often Do You Have a Drink Containing Alcohol: Never Immunization History Tetanus Immunization: >5 Years Exam Narrative Exam Narrative: GENERAL: Pale, chronically debilitated, obese adult male. SKIN: Focused skin assessment warm/dry. Sacral ulcers, left lower extremity ulcers are bandaged. HEAD: Atraumatic. Normocephalic. EYES: Pupils equal and round. No scleral icterus. No injection or drainage. ENT: No nasal bleeding or discharge. Mucous membranes pink and moist. NECK: Trachea midline. No JVD. CARDIOVASCULAR: Regular rate and rhythm. No murmur appreciated. RESPIRATORY: Distant breath sounds, coarse, rhonchi in the bases. GASTROINTESTINAL: Morbid obesity. MUSCULOSKELETAL: No obvious deformities. No tolu edema NEUROLOGICAL: A little bit sluggish. No obvious cranial nerve deficits. Motor grossly within normal limits. Normal speech. Course Initial Documented Vital Signs Pulse Rate 61 08/06/18 01:17 Respiratory Rate 24 08/06/18 01:17 Blood Pressure 145/63 H 08/06/18 01:17 Pulse Oximetry 97 08/06/18 01:17 Last Documented Vital Signs Pulse Rate 72 08/06/18 02:53 Respiratory Rate 20 08/06/18 02:53 Blood Pressure 132/65 08/06/18 02:53 Pulse Oximetry 95 08/06/18 02:53 Medical Decision Making MDM Narrative Medical decision making narrative: 73-year-old man with pneumonia, obesity hypoventilation, possible pleural effusions and volume overload, and MRSA skin infections. He looks chronically unwell. Appears to be in mild respiratory distress and a little bit altered. Will check blood gas, chest x-ray, labs. Will need admission. Medical Screen Exam Complete: Yes Emergency Medical Condition: Yes Lab Data Result diagrams: 08/06/18 02:00 10/12/18 02:00 Lab Results 08/06/18 08/06/18 08/06/18 Range/Units 02:00 02:00 02:00 WBC 10.1 (4.0-11.0) th/mm3 RBC 3.15 L (4.50-5.90) mil/mm3 Hgb 9.0 L (13.0-17.0) gm/dL Hct 27.2 L (39.0-51.0) % MCV 86.5 (80.0-100.0) fL MCH 28.6 (27.0-34.0) pg MCHC 33.0 (32.0-36.0) % RDW 16.4 (11.6-17.2) % Plt Count 197 (150-450) th/mm3 MPV 8.4 (7.0-11.0) fL Neut % (Auto) 70.1 H (16.0-70.0) % Lymph % (Auto) 21.3 (9.0-44.0) % Sutton % (Auto) 8.2 H (0.0-8.0) % Eos % (Auto) 0.0 (0.0-4.0) % Baso % (Auto) 0.4 (0.0-2.0) % Neut # (Auto) 7.0 (1.8-7.7) th/mm3 Lymph # (Auto) 2.1 (1.0-4.8) th/mm3 Sutton # (Auto) 0.8 (0.0-0.9) th/mm3 Eos # (Auto) 0.0 (0.0-0.4) th/mm3 Baso # (Auto) 0.0 (0.0-0.2) th/mm3 WBC Differential . Differential Comment Auto diff final Puncture Site Patient Temperature O2 Saturation (90-100) % ABG pH (7.380-7.420) ABG pCO2 (38-42) mmHg ABG pO2 (61-120) mmHg ABG HCO3 (22-26) mmol/L ABG O2 Content (12.0-20.0) Vol % ABG Base Excess (-2-2) mmol/L ABG Methemoglobin (0-2) % Parker Test Hemoglobin (12.0-16.0) G/DL Carboxyhemoglobin (0-4) % O2 Delivery Device Liter Flow L/M Critical Value Sodium 143 (136-145) meq/L Potassium 4.4 (3.5-5.1) meq/L Chloride 109 H (98-107) meq/L Carbon Dioxide 24.8 (21.0-32.0) meq/L Anion Gap 9 (5-15) meq/L BUN 89 H (7-18) mg/dL Creatinine 1.93 H (0.60-1.30) mg/dL Estimated GFR 34 L (>89) mL/min Random Glucose 176 H (74-106) mg/dL Calcium 7.9 L (8.5-10.1) mg/dL Total Bilirubin 0.2 (0.2-1.0) mg/dL AST 13 L (15-37) U/L ALT 24 (12-78) U/L Alkaline Phosphatase 82 (45-117) U/L Troponin I 0.03 (0.02-0.05) ng/mL B-Natriuretic Peptide 300 H (0-100) pg/mL Total Protein 7.7 (6.4-8.2) g/dL Albumin 2.0 L (3.4-5.0) g/dL 08/06/18 Range/Units 02:24 WBC (4.0-11.0) th/mm3 RBC (4.50-5.90) mil/mm3 Hgb (13.0-17.0) gm/dL Hct (39.0-51.0) % MCV (80.0-100.0) fL MCH (27.0-34.0) pg MCHC (32.0-36.0) % RDW (11.6-17.2) % Plt Count (150-450) th/mm3 MPV (7.0-11.0) fL Neut % (Auto) (16.0-70.0) % Lymph % (Auto) (9.0-44.0) % Sutton % (Auto) (0.0-8.0) % Eos % (Auto) (0.0-4.0) % Baso % (Auto) (0.0-2.0) % Neut # (Auto) (1.8-7.7) th/mm3 Lymph # (Auto) (1.0-4.8) th/mm3 Sutton # (Auto) (0.0-0.9) th/mm3 Eos # (Auto) (0.0-0.4) th/mm3 Baso # (Auto) (0.0-0.2) th/mm3 WBC Differential Differential Comment Puncture Site Right radial Patient Temperature 98.6 O2 Saturation 94 (90-100) % ABG pH 7.37 L (7.380-7.420) ABG pCO2 42 (38-42) mmHg ABG pO2 76 (61-120) mmHg ABG HCO3 23 (22-26) mmol/L ABG O2 Content 12.1 (12.0-20.0) Vol % ABG Base Excess -1.2 (-2-2) mmol/L ABG Methemoglobin 0.5 (0-2) % Parker Test Present Hemoglobin 9.1 L (12.0-16.0) G/DL Carboxyhemoglobin 1.5 (0-4) % O2 Delivery Device Simple mask Liter Flow 11.00 L/M Critical Value No Sodium (136-145) meq/L Potassium (3.5-5.1) meq/L Chloride (98-107) meq/L Carbon Dioxide (21.0-32.0) meq/L Anion Gap (5-15) meq/L BUN (7-18) mg/dL Creatinine (0.60-1.30) mg/dL Estimated GFR (>89) mL/min Random Glucose (74-106) mg/dL Calcium (8.5-10.1) mg/dL Total Bilirubin (0.2-1.0) mg/dL AST (15-37) U/L ALT (12-78) U/L Alkaline Phosphatase (45-117) U/L Troponin I (0.02-0.05) ng/mL B-Natriuretic Peptide (0-100) pg/mL Total Protein (6.4-8.2) g/dL Albumin (3.4-5.0) g/dL Imaging Data Radiologist's impression: Chest X-Ray 08/06/18 02:23 CONCLUSION: Bilateral lung consolidation. Differential diagnosis includes pulmonary edema and infection with probable small bilateral pleural effusions. Discharge Plan Physicians Team ED Provider: John Sen Primary Care Provider: UNKNOWN, Attending Provider: Emily Mckeon Other Providers: [employer] Rxs /Orders / Referrals /Forms Prescriptions: No Action atorvastatin [Lipitor] 20 mg Tablet 20 mg PO HS RF: 0 aspirin 325 mg Tablet 325 mg PO DAILY RF: 0 tamsulosin [Flomax] 0.4 mg Capsule,Extended Release 24hr 0.4 mg PO BID RF: 0 pantoprazole [Protonix] 40 mg Tablet,Delayed Release (Dr/Ec) 40 mg PO DAILY RF: 0 gabapentin 300 mg Capsule 300 mg PO Q6HR RF: 0 dutasteride [Avodart] 0.5 mg Capsule 0.5 mg PO QPM RF: 0 duloxetine [Cymbalta] 30 mg Capsule,Delayed Release(Dr/Ec) 30 mg PO DAILY RF: 0 amlodipine [Norvasc] 5 mg Tablet 5 mg PO DAILY RF: 0 carvedilol [Coreg] 3.125 mg Tablet 3.125 mg PO BID RF: 0 insulin regular human [Novolin R Regular U-100 Insuln] 100 unit/mL Solution Sub-Q Q4HR RF: 0 hydralazine 50 mg Tablet 50 mg PO TID RF: 0 insulin detemir U-100 [Levemir U-100 Insulin] 100 unit/mL Solution 20 unit Sub-Q BID RF: 0 Discharge Interventions Interventions: Vital Signs Last Done: 08/06/18 02:53 Status ED Status: Admitted Patient
[2018-08-06 02:46] LABS: ABG Base Excess -1.2 mmol/L (-2-2); ABG PCO2 42 mmHg (38-42); ABG PO2 76 mmHg (61-120)
[2018-08-06 02:50] LABS: Baso % (Auto) 0.4 % (0.0-2.0); Hematocrit 27.2 % (39.0-51.0); Lymph # (Auto) 2.1 th/mm3 (1.0-4.8); Lymph % (Auto) 21.3 % (9.0-44.0); Mean Corpuscular Hemoglobin 28.6 pg (27.0-34.0); Mean Corpuscular Volume 86.5 fL (80.0-100.0); Mean Platelet Volume 8.4 fL (7.0-11.0); Mono # (Auto) 0.8 th/mm3 (0.0-0.9); Mono % (Auto) 8.2 % (0.0-8.0); Neut % (Auto) 70.1 % (16.0-70.0); Platelet Count 197 th/mm3 (150-450); Red Blood Count 3.15 mil/mm3 (4.50-5.90); Red Cell Distribution Width 16.4 % (11.6-17.2); White Blood Count 10.1 th/mm3 (4.0-11.0)
--- NOTE | 2018-08-06 02:55 | XR ---
EXAM DATE: 08/06/2018 2:23 AM EDT AGE/SEX: 73 years / Male INDICATIONS: Difficulty breathing for 24 hours CLINICAL DATA: This is the patient's initial encounter. Patient reports that signs and symptoms have been present for 1 day and indicates a pain score of 0/10. MEDICAL/SURGICAL HISTORY: Diabetes. Hypercholesterolemia. Hypertension. None. COMPARISON: [facility] [place], CHEST 1V SINGLE AP, 06/12/2018. . FINDINGS: Bilateral lung consolidation, especially perihilar. Cardiomegaly. Probable small effusions. CONCLUSION: Bilateral lung consolidation. Differential diagnosis includes pulmonary edema and infection with prob able small bilateral pleural effusions. Electronically signed by: Ashwin Calloway MD 08/06/2018 2:53 AM EDT
[2018-08-06 02:57] LABS: Alanine Aminotransferase 24 U/L (12-78); Anion Gap 9 meq/L (5-15); Aspartate Aminotransferase 13 U/L (15-37); Blood Urea Nitrogen 89 mg/dL (7-18); Calcium 7.9 mg/dL (8.5-10.1); Carbon Dioxide 24.8 meq/L (21.0-32.0); Chloride 109 meq/L (98-107); Glomerular Filtration Rate 34 mL/min (>89); Glucose,Random 176 mg/dL (74-106); Potassium 4.4 meq/L (3.5-5.1); Sodium 143 meq/L (136-145)
[2018-08-06 03:02] LABS: Alkaline Phosphatase 82 U/L (45-117); Total Protein 7.7 g/dL (6.4-8.2); Troponin I 0.03 ng/mL (0.02-0.05)
[2018-08-06] MEDS ORDERED: Vancomycin Consult Pharmacy OTHER PRN (03:35)
[2018-08-06] MEDS ORDERED: Bisacodyl 10 MG Supp RECTAL PRN (03:35)
[2018-08-06] MEDS ORDERED: Acetaminophen 325 MG Tablet PO PRN (03:35)
[2018-08-06] MEDS ORDERED: Dextrose 50% in Water 50 ML Vial IV.PUSH PRN (03:36)
[2018-08-06] MEDS ORDERED: Morphine Inj 4 MG/ML Vial IV.PUSH PRN (04:01)
--- NOTE | 2018-08-06 04:13 | P.HPIM ---
History of Present Illness Primary Care Physician: UNKNOWN History of Present Illness: This is a 73-year-old male with PMH of HTN, Hyperlipidemia, DM, Peripheral Neuropathy and Morbid Obesity who was brought to the ER by EMS from [facility] for SOB and hypoxia. Per report, pt had episode of SOB w/ O2 sat 70% on RA, however pt refused transport to the ER. [place], pt w/ recurrent episode of SOB and hypoxia. Has been on Zyvox for LE Wound Infection +MRSA, recently started on Levaquin for PNA. Pt poor historian, unable to obtain much history. Main complaint is back pain at this time. On arrival, BP 145/63, HR 81, O2 sat 97% on 10 L Simple Mask. CBC unremarkable. ABG essentially unremarkable. Creatinine 1.93, previously 1.83 on 06/10/2018. BNP 300. CXR with bilateral lung consolidation, possible pulmonary edema with small bilateral pleural effusions. S/p Lasix in ER. - Diagnosis (1) PNA (pneumonia) (2) Pleural effusion (3) JOSE (acute kidney injury) Inpatient Certification: I certify that the inpatient services were ordered in accordance with Medicare regulations governing the order. This includes certification that hospital inpatient services are reasonable and necessary and in the case of services not specified as inpatient-only under 42 CFR 419.22(n), that they are appropriately provided as inpatient services in accordance to with the 2-midnight benchmark under 43 CFR 412.3(e) Estimated Total Length of Stay (Days): 2 Plans for Post Hospital Care: Not yet determined Review of Systems PAST FAMILY HISTORY: Reviewed. No h/o DM or CAD All other systems reviewed negative except as stated in HPI [facility] - History History Provided By: Patient - Medical History Medical History: Medical History (Last Updated 08/06/18 @ 02:26 by John Sen MD) Obesity Depression Diabetes Diabetes GERD (gastroesophageal reflux disease) HTN (hypertension) High cholesterol Neuropathy - Tobacco History Second Hand Smoke Exposure: No Tobacco Use In Past 30 Days: No Smoking Status: Former smoker Tobacco Type: Cigarettes - Alcohol History How Often Do You Have a Drink Containing Alcohol: Never - Substance Use History Substance History: No History of Abuse - Immunization History Tetanus Immunization: >5 Years Medications and Allergies Active Medications: Active Medications Acetaminophen (Tylenol) 650 mg PO Q4H PRN PRN Reason: Temp > 100.4 Al Hydroxide/Mg Hydroxide (Milk Of Magnesia Liq) 30 ml PO Q12H PRN PRN Reason: Mild Constipation Albuterol (Duoneb Neb (Prn)) 1 ampul NEB Q4HR NEB PRN PRN Reason: SOB/WHEEZING Bisacodyl (Dulcolax Supp) 10 mg RECTAL DAILY PRN PRN Reason: SEVERE CONSITIPATION Dextrose (D50w Vial) 50 ml IV.PUSH UNSCH PRN PRN Reason: PER HYPOGLYCEMIA PROTOCOL Glucagon (Glucagon Inj) 1 mg OTHER PRN PRN PRN Reason: for Hypoglycemia Protocol Heparin Sodium (Porcine) (Heparin Inj) 5,000 units SQ Q12H SHAHEED Cefepime HCl 1,000 mg/ Sodium (Chloride) 100 mls @ 200 mls/hr IV.SIG Q12H SHAHEED Vancomycin HCl 2,000 mg/ (Sodium Chloride) 540 mls @ 270 mls/hr IV.SIG ONCE ONE Stop: 08/06/18 07:59 Insulin Aspart (Novolog Insulin Correctional Sugar Inj) 0 unit SQ ACHS SHAHEED; Protocol Lactulose (Lactulose Liq) 30 ml PO DAILY PRN PRN Reason: SEVERE CONSITIPATION Morphine Sulfate (Morphine Inj) 2 mg IV.PUSH Q4H PRN PRN Reason: PAIN 6-10 Ondansetron HCl (Zofran Inj) 4 mg IV.PUSH Q6H PRN PRN Reason: NAUSEA OR VOMITING Pharmacy Profile Note (Vancomycin Consult Pharmacy) 1 each OTHER UNSCH PRN PRN Reason: Pharmacy to dose Senna/Docusate Sodium (Isabella-Colace) 1 tab PO BID SHAHEED Sennosides (Senokot) 17.2 mg PO Q12H PRN PRN Reason: Moderate Constipation Allergies Allergy/AdvReac Type Severity Reaction Status Date / Time No Known Allergies Allergy Verified 08/06/18 01:24 Home Medications Medication Instructions Recorded Confirmed Type aspirin 325 mg PO DAILY 06/01/18 06/01/18 History atorvastatin [Lipitor] 20 mg PO HS 06/01/18 06/01/18 History duloxetine [Cymbalta] 30 mg PO DAILY 06/01/18 06/01/18 History dutasteride [Avodart] 0.5 mg PO QPM 06/01/18 06/01/18 History gabapentin 300 mg PO Q6HR 06/01/18 06/01/18 History pantoprazole [Protonix] 40 mg PO DAILY 06/01/18 06/01/18 History tamsulosin [Flomax] 0.4 mg PO BID 06/01/18 06/01/18 History Exam Vital signs: Vital Signs 08/06/18 01:17 08/06/18 01:22 08/06/18 02:41 Pulse Rate 61 73 67 Respiratory Rate 24 18 20 Blood Pressure 145/63 H 145/63 H Pulse Oximetry 97 96 96 08/06/18 02:53 Pulse Rate 72 Respiratory Rate 20 Blood Pressure 132/65 Pulse Oximetry 95 Intake & Output 08/05/18 08/05/18 08/06/18 06:59 18:59 06:59 Weight 381 kg Narrative: PE: GENERAL: Morbidly obese elderly white male in moderate distress due to pain complaints, uncomfortable on stretcher. SKIN: Focused skin assessment warm and dry. HEENT: PERRLA, EOMI. No scleral icterus or conjunctival pallor. No lid lag or facial droop. CARDIOVASCULAR: Regular rate and rhythm. No obvious murmurs to auscultation. No chest tenderness to palpation. RESPIRATORY: +rhonchi, no wheezing. Clear to auscultation. Breath sounds equal bilaterally. GASTROINTESTINAL: Abdomen soft, non-tender, nondistended. BS normal. MUSCULOSKELETAL: Extremities without clubbing, cyanosis, or edema. No obvious deformities. +sacral ulcers, LE wounds w/ dressing. NEUROLOGICAL: Awake, alert. No focal neurologic deficits. Moving both upper and lower extremities spontaneously. PSYCHIATRIC: Appropriate mood and affect. Insight and judgment normal. Results - Labs CBC & Chem 7: 08/06/18 02:00 08/06/18 02:00 Labs: Short CBC 08/06/18 Range/Units 02:00 WBC 10.1 (4.0-11.0) th/mm3 Hgb 9.0 L (13.0-17.0) gm/dL Hct 27.2 L (39.0-51.0) % Plt Count 197 (150-450) th/mm3 BMP 08/06/18 02:00 Sodium 143 Potassium 4.4 Chloride 109 H Carbon Dioxide 24.8 BUN 89 H Creatinine 1.93 H Calcium 7.9 L Cardiac Enzymes 08/06/18 Range/Units 02:00 Troponin I 0.03 (0.02-0.05) ng/mL Liver Function 08/06/18 Range/Units 02:00 Total Bilirubin 0.2 (0.2-1.0) mg/dL AST 13 L (15-37) U/L ALT 24 (12-78) U/L Alkaline Phosphatase 82 (45-117) U/L Albumin 2.0 L (3.4-5.0) g/dL - Imaging Impressions Chest X-Ray 08/06/18 02:23 CONCLUSION: Bilateral lung consolidation. Differential diagnosis includes pulmonary edema and infection with probable small bilateral pleural effusions. Caprini VTE Risk Assessment Caprini VTE Risk Assessment: No/Low Risk (score <= 1) Caprini Risk Assessment Model: Point Value = 1 Point Value = 2 Point Value = 3 Point Value = 5 Age 41-60 Minor surgery BMI > 25 kg/m2 Swollen legs Varicose veins or History of unexplained or recurrent spontaneous Oral contraceptives or hormone replacement Sepsis (< 1 month) Serious lung disease, including pneumonia (< 1 month) Abnormal pulmonary function Acute myocardial infarction Congestive heart failure (< 1 month) History of inflammatory bowel disease Medical patient at bed rest Age 61-74 Arthroscopic surgery Major open surgery (> 45 min) Laparoscopic surgery (> 45 min) Malignancy Confined to bed (> 72 hours) Immobilizing plaster cast Central venous access Age >= 75 History of VTE Family history of VTE Factor V Leiden Prothrombin [id number] Lupus anticoagulant Anticardiolipin antibodies Elevated serum homocysteine Heparin-induced thrombocytopenia Other congenital or acquired thrombophilia Stroke (< 1 month) Elective arthroplasty Hip, pelvis, or leg fracture Acute spinal cord injury (< 1 month) Prophylaxis Regimen: Total Risk Factor Score Risk Level Prophylaxis Regimen 0-1 Low Early ambulation 2 Moderate Order ONE of the following: *Sequential Compression Device (SCD) *Heparin 5000 units SQ BID 3-4 Higher Order ONE of the following medications: *Heparin 5000 units SQ TID *Enoxaparin/Lovenox 40 mg SQ daily (WT < 150 kg, CrCl > 30 mL/min) *Enoxaparin/Lovenox 30 mg SQ daily (WT < 150 kg, CrCl > 10-29 mL/min) *Enoxaparin/Lovenox 30 mg SQ BID (WT < 150 kg, CrCl > 30 mL/min) AND/OR *Sequential Compression Device (SCD) 5 or more Highest Order ONE of the following medications: *Heparin 5000 units SQ TID (Preferred with Epidurals) *Enoxaparin/Lovenox 40 mg SQ daily (WT < 150 kg, CrCl > 30 mL/min) *Enoxaparin/Lovenox 30 mg SQ daily (WT < 150 kg, CrCl > 10-29 mL/min) *Enoxaparin/Lovenox 30 mg SQ BID (WT < 150 kg, CrCl > 30 mL/min) AND *Sequential Compression Device (SCD) Assessment and Plan - Assessment (1) PNA (pneumonia) Code(s): J18.9 - Pneumonia, unspecified organism Status: Acute (2) Pleural effusion Code(s): J90 - Pleural effusion, not elsewhere classified Status: Acute (3) JOSE (acute kidney injury) Code(s): N17.9 - Acute kidney failure, unspecified Status: Acute - Plan A/P: 1. PNA: CXR w/ bilateral consolidations, images reviewed, w/ associated respiratory distress and hypoxia, currently on 8L Simple Mask w/ O2 95%. ABG w / no significant abnormalities. Start IV Vanc/Cefepime, DuoNeb prn, monitor O2 sat closely. 2. Pleural Effusions: CXR w/ small bilateral pleural effusions, images reviewed, likely related to underlying infection, BNP 300, s/p Lasix in ER, continue w/ diuresis as tolerated-caution w/ renal insufficiency, monitor I/O. Echo 06/03/18 w/ mildly impaired LV function. 3. JOSE: Creatinine 1.93, previously 1.83 on 06/03/18, monitor I/O. 4. DVT Prophylaxis: Heparin sq 5. Social work for d/c planning as needed. 6. Case discussed w/ ER physician at length, labs/records/imaging reviewed by me.
[2018-08-06] MEDS ORDERED: Vancomycin Inj 2,000 MG in Sodium Chlor 0.9% Inj 500 ML IV.SIG ONE (06:00)
[2018-08-06] MEDS: Insulin NovoLOG Aspart Correctional Sugar Inj SQ SCH ×4 (08:40→21:41)
[2018-08-06] MEDS: Senna/Docusate Sodium 8.6/50 MG Tablet PO SCH ×2 (08:48→21:44)
[2018-08-06] MEDS: Heparin - SQ 10,000 UNITS/ML Vial SQ SCH ×2 (08:48→21:44)
[2018-08-06] MEDS ORDERED: Influenza (Quadrivalent) Vaccine 0.5 ML Syringe IM ONE (09:15)
--- NOTE | 2018-08-06 12:19 | P.PNIM ---
Subjective Interval history: This is a 73-year-old male with PMH of HTN, Hyperlipidemia, DM, Peripheral Neuropathy and Morbid Obesity who was brought to the ER by EMS from [facility] for SOB and hypoxia. Per report, pt had episode of SOB w/ O2 sat 70% on RA, however pt refused transport to the ER. Meagan, pt w/ recurrent episode of SOB and hypoxia. Has been on Zyvox for LE Wound Infection +MRSA, recently started on Levaquin for PNA. Pt poor historian, unable to obtain much history. Main complaint is back pain at this time. On arrival, BP 145/63, HR 81, O2 sat 97% on 10 L Simple Mask. CBC unremarkable. ABG essentially unremarkable. Creatinine 1.93, previously 1.83 on 06/10/2018. BNP 300. CXR with bilateral lung consolidation, possible pulmonary edema with small bilateral pleural effusions. S/p Lasix in ER. 08-06 CONTINUE ANTIBIOTICS HX OF DM PT AND OT MED REC AM LABS DW RN AND PT AND CM SPUTUM IS MUCINEX Physical Exam Vital signs: Vital Signs 08/06/18 01:17 08/06/18 01:22 08/06/18 02:41 Temperature Pulse Rate 61 73 67 Respiratory Rate 24 18 20 Blood Pressure 145/63 H 145/63 H Pulse Oximetry 97 96 96 08/06/18 02:53 08/06/18 04:15 08/06/18 04:16 Temperature Pulse Rate 72 64 Respiratory Rate 20 18 Blood Pressure 132/65 130/71 Pulse Oximetry 95 97 97 08/06/18 05:43 08/06/18 08:00 08/06/18 09:00 Temperature 96.6 F L 97.9 F Pulse Rate 59 L 65 69 Respiratory Rate 18 18 Blood Pressure 127/57 L 140/65 Pulse Oximetry 96 95 Intake & Output 08/05/18 08/06/18 08/06/18 18:59 06:59 18:59 Intake Total 640 / 640 Balance 640 / 640 Weight 381 kg 173.255 kg Intake: IV 640 / 640 Maxipime Inj 1,000 MG In NS Inj 100 / 100 100 ML @ 200 mls/hr IV.SIG Q12H [facility] Rx#:[id number] Vancomycin Inj 2,000 MG In NS 540 / 540 Inj 500 ML @ 270 mls/hr IV.SIG ONCE ONE Rx#:[id number] Narrative: PE: Awake and alert talkative and cooperative answering questions somewhat appropriate GENERAL: Morbidly obese elderly white male in moderate distress due to pain complaints, uncomfortable on stretcher. SKIN: Focused skin assessment warm and dry. HEENT: PERRLA, EOMI. No scleral icterus or conjunctival pallor. No lid lag or facial droop. CARDIOVASCULAR: Regular rate and rhythm. No obvious murmurs to auscultation. No chest tenderness to palpation. RESPIRATORY: +rhonchi, no wheezing. Clear to auscultation. Breath sounds equal bilaterally. GASTROINTESTINAL: Abdomen soft, non-tender, nondistended. BS normal. Obese MUSCULOSKELETAL: Extremities without clubbing, cyanosis, or edema. No obvious deformities. +sacral ulcers, LE wounds w/ dressing. NEUROLOGICAL: Awake, alert. No focal neurologic deficits. Moving both upper and lower extremities spontaneously. PSYCHIATRIC: Appropriate mood and affect. Insight and judgment normal. Results - Labs CBC & Chem 7: 08/06/18 02:00 08/06/18 02:00 Laboratory Results - last 24 hr 08/06/18 08/06/18 08/06/18 02:00 02:00 02:00 WBC 10.1 RBC 3.15 L Hgb 9.0 L Hct 27.2 L MCV 86.5 MCH 28.6 MCHC 33.0 RDW 16.4 Plt Count 197 MPV 8.4 Neut % (Auto) 70.1 H Lymph % (Auto) 21.3 Grant % (Auto) 8.2 H Eos % (Auto) 0.0 Baso % (Auto) 0.4 Neut # (Auto) 7.0 Lymph # (Auto) 2.1 Grant # (Auto) 0.8 Eos # (Auto) 0.0 Baso # (Auto) 0.0 WBC Differential . Differential Comment Auto diff final Puncture Site Patient Temperature O2 Saturation ABG pH ABG pCO2 ABG pO2 ABG HCO3 ABG O2 Content ABG Base Excess ABG Methemoglobin Parker Test Hemoglobin Carboxyhemoglobin O2 Delivery Device Liter Flow Critical Value Sodium 143 Potassium 4.4 Chloride 109 H Carbon Dioxide 24.8 Anion Gap 9 BUN 89 H Creatinine 1.93 H Estimated GFR 34 L POC Glucose Random Glucose 176 H Calcium 7.9 L Total Bilirubin 0.2 AST 13 L ALT 24 Alkaline Phosphatase 82 Troponin I 0.03 B-Natriuretic Peptide 300 H Total Protein 7.7 Albumin 2.0 L 08/06/18 08/06/18 08/06/18 02:24 07:30 07:54 WBC RBC Hgb Hct MCV MCH MCHC RDW Plt Count MPV Neut % (Auto) Lymph % (Auto) Grant % (Auto) Eos % (Auto) Baso % (Auto) Neut # (Auto) Lymph # (Auto) Grant # (Auto) Eos # (Auto) Baso # (Auto) WBC Differential Differential Comment Puncture Site Right radial Patient Temperature 98.6 O2 Saturation 94 ABG pH 7.37 L ABG pCO2 42 ABG pO2 76 ABG HCO3 23 ABG O2 Content 12.1 ABG Base Excess -1.2 ABG Methemoglobin 0.5 Parker Test Present Hemoglobin 9.1 L Carboxyhemoglobin 1.5 O2 Delivery Device Simple mask Liter Flow 11.00 Critical Value No Sodium Potassium Chloride Carbon Dioxide Anion Gap BUN Creatinine Estimated GFR POC Glucose 69 61 L Random Glucose Calcium Total Bilirubin AST ALT Alkaline Phosphatase Troponin I B-Natriuretic Peptide Total Protein Albumin 08/06/18 08/06/18 07:55 08:38 WBC RBC Hgb Hct MCV MCH MCHC RDW Plt Count MPV Neut % (Auto) Lymph % (Auto) Grant % (Auto) Eos % (Auto) Baso % (Auto) Neut # (Auto) Lymph # (Auto) Grant # (Auto) Eos # (Auto) Baso # (Auto) WBC Differential Differential Comment Puncture Site Patient Temperature O2 Saturation ABG pH ABG pCO2 ABG pO2 ABG HCO3 ABG O2 Content ABG Base Excess ABG Methemoglobin Parker Test Hemoglobin Carboxyhemoglobin O2 Delivery Device Liter Flow Critical Value Sodium Potassium Chloride Carbon Dioxide Anion Gap BUN Creatinine Estimated GFR POC Glucose 67 L 73 Random Glucose Calcium Total Bilirubin AST ALT Alkaline Phosphatase Troponin I B-Natriuretic Peptide Total Protein Albumin - Imaging Impressions Chest X-Ray 08/06/18 02:23 CONCLUSION: Bilateral lung consolidation. Differential diagnosis includes pulmonary edema and infection with probable small bilateral pleural effusions. Assessment and Plan - Assessment (1) PNA (pneumonia) Code(s): J18.9 - Pneumonia, unspecified organism Status: Acute (2) Pleural effusion Code(s): J90 - Pleural effusion, not elsewhere classified Status: Acute (3) JOSE (acute kidney injury) Code(s): N17.9 - Acute kidney failure, unspecified Status: Acute - Plan 1. PNA: CXR w/ bilateral consolidations, images reviewed, w/ associated respiratory distress and hypoxia, currently on 8L Simple Mask w/ O2 95%. ABG w / no significant abnormalities. Start IV Vanc/Cefepime, DuoNeb prn, monitor O2 sat closely. MUCINEX AND IS 2. Pleural Effusions: CXR w/ small bilateral pleural effusions, images reviewed, likely related to underlying infection, BNP 300, s/p Lasix in ER, continue w/ diuresis as tolerated-caution w/ renal insufficiency, monitor I/O. Echo 06/03/18 w/ mildly impaired LV function. 3. JOSE: Creatinine 1.93, previously 1.83 on 06/03/18, monitor I/O. 4. DVT Prophylaxis: Heparin sq Diabetes mellitus continue on sliding scale coverage with Accu-Cheks before meals and at bedtime RESUME HOME LEVEMIR Hypertension RESUME HOME MEDS HYPERLIPIDEMIA LIPITOR DEPRESSION DULOXETINE PERIPHERAL NEUROPATH- GABAPENTIN GERD PROTONIX BPH FLOMAX AND AVODART GI AND DVT PROPHYLAXIS Code Status: FULL CODE Discussed Condition With: RN AND PT AND CM Discharge Planning: ONCE IMPROVED AND BREATHING BETTER
[2018-08-06] MEDS: guaiFENesin 600 MG ER Tablet PO SCH ×2 (13:32→21:44)
[2018-08-06] MEDS: Aspirin 325 MG Tablet PO SCH (13:32)
[2018-08-06] MEDS: hydrALAZINE 50 MG Tablet PO SCH ×2 (13:32→17:09)
[2018-08-06] MEDS: amLODIPine 5 MG Tablet PO SCH (13:32)
--- NOTE | 2018-08-06 15:18 | P.PNWCN ---
Wound Care Nurse Consult Description: Received consult from Doctor Mckeon for pressure ulcer wound management to LE Communicated with: MEHRAN salazar and Doctor Velasco Recommendation: R buttock 1.Please cleanse stage 3 pressure injury to R buttock with normal saline and pat dry. Apply Cavilon skin barrier film to skin surrounding wound.Apply Optifoam gentle 4x4 over wound. Change dressing every 3 days or PRN if saturated or dislodged. 2. Please turn and reposition patient every 2 hours or as needed for comfort and offloading of pressure from dhara prominences. 3. Please obtain low airloss bariatric bed from [facility] R lateral foot Please consult podiatry Until seen by podiatry please cleanse wound with normal saline and pat dry Apply Santyl to wound bed miesha thick coverage and the apply saline moistened fluffed gauze to wound bed Cover with dry gauze, and ABD pad. Secure dressing with rolled gauze, or daisha, and tape. Change dressing daily R heel Please paint stable eschar to R heel with povidone iodine BID and leave open to air Consult podiatry Wound/Pressure Injury - Patient Status Premedicated for Pain Prior to Dressing Change: No - Wound Right Buttocks Wound Staging: Stage III Wound Assessment: Admission Wound Type: Pressure Injury Is This a Chronic Wound: No Requested from Provider a Wound Care Consult: Yes (Wound care saw patient today) Length (cm): 5 (~5cm) Width (cm): 3.5 (~3.5cm) Depth (cm): 0.3 (~0.3cm) Wound Bed Appearance: Red Wound Bed Appearance: Wound bed presents with 100% red granulation tissue Surrounding Tissue Appearance: Mcnab Surrounding Tissue Temperature: Warm Drainage Description: Serosanguinous Drainage Amount: Scant Drainage Odor: No Odor Dressing Status: Reinforced R lateral Foot Wound Staging: Unstageable Wound Type: Pressure Injury Is This a Chronic Wound: No Requested from Provider a Wound Care Consult: Yes Length (cm): 8.5 (cm) Width (cm): 4.5 (cm) Depth (cm): 0 (slough) Wound Bed Appearance: Wound bed presents with ~80% dry adherent yellow slough and ~20% red non granulation tissue. Surrounding Tissue Temperature: Cool Drainage Description: Serosanguinous Drainage Amount: Scant Drainage Odor: No Odor Dressing Status: Changed Cleansing Solution: Saline Topical: hydrogel Wound Packing Type: Gauze Pads Primary Dressing: Absorbant Pad Cover Dressing: Gauze Roll/Wrap Tape Type: Transparent Wound Dressing Change Date: 08/06/18 Wound Margin Description: Wound margins are well defined and open Right Heel Wound Staging: Unstageable Wound Type: Pressure Injury Is This a Chronic Wound: No Requested from Provider a Wound Care Consult: Yes (Wound care saw patient today) Length (cm): 4 (cm) Width (cm): 3.6 (cm) Depth (cm): 0 (eschar) Wound Bed Appearance: Necrotic Wound Bed Appearance: 100%dry stable eschar Surrounding Tissue Appearance: Mcnab Surrounding Tissue Temperature: Cool Drainage Amount: None Drainage Odor: No Odor Dressing Status: Open to Air Cleansing Solution: Saline Topical: Povidine-Iodine (Betadine) Wound Margin Description: Wound margins are even and well defined - Additional Information Patient seen on [facility] for evaluation of wound management of pressure ulcer to LE. Patient was positioned to L side with the assistance of physical therapist and underwriter mortgage loan to reveal bordered gauze dressing in place to R buttock. Peeled back dressing to reveal open wound to R buttock with an elliptical shape and 100% red granulation tissue.Patient could not tolerated being positioned partially to L side. dressing was reapplied back in place and patient was positioned off bottom. Attention was then turn toward the lower extremities. Patient has intact skin to L lower extremity. Dressing is noted in place to R foot with heel raiser boot also in place. Removed dressing and heel raiser boot in place to reveal open wound to R lateral foot. Wound measurements and descriptions are noted above. Wound to R lateral foot is unstageable/Wound was cleansed with normal saline and patted dry. Applied hydrogel to wound bed and covered with saline moistened fluffed gauze, followed by dry gauze and ABD pad. Secured dressing with rolled gauze and tape. Also assessed wound to R heel that presents as unstageable pressure injury with 100% dry stable eschar. Wound measurements and descriptions are noted above. Wound presents with 100% stable black eschar.Painted eschar with povidone Iodine and left open to air.
[2018-08-06] MEDS: Gabapentin 300 MG Capsule PO SCH (17:09)
[2018-08-06] MEDS: Finasteride 5 MG Tablet PO SCH (17:09)
--- NOTE | 2018-08-06 20:15 | P.CON ---
History of Present Illness Service: Foot and ankle surgery/podiatry Consult date: 08/13/18 Primary Care Provider: UNKNOWN Chief Complaint: Right foot ulceration History of Present Illness: Podiatry consulted for this 73-year-old male with past medical history of hypertension hyperlipidemia diabetes peripheral neuropathy and morbid obesity he was brought to the emergency department by EMS from his nursing facility for shortness of breath and hypoxia. Podiatry is consulted for right foot wounds. Patient is concerned about his BiPAP machine he denies any nausea vomiting fevers or chills. He is poor historian and does not know how these ulcerations started or who has been treating them. Review of Systems No: All other systems reviewed negative except as stated in HPI Constitutional: Reports fatigue, Denies chills, Denies fever(s), Denies night sweats PMFSH - History History Provided By: Patient - Medical History Medical History: Medical History (Last Reviewed 08/06/18 @ 14:39 by Funmi Pierce) Obesity Depression Diabetes Diabetes GERD (gastroesophageal reflux disease) HTN (hypertension) High cholesterol Neuropathy - Tobacco History Second Hand Smoke Exposure: No Tobacco Use In Past 30 Days: No Smoking Status: Former smoker Tobacco Type: Cigarettes - Alcohol History How Often Do You Have a Drink Containing Alcohol: Never - Substance Use History Substance History: No History of Abuse - Immunization History Tetanus Immunization: Unsure Hx Influenza Vaccine This Season: No Medications and Allergies Active Medications: Active Medications Acetaminophen (Tylenol) 650 mg PO Q4H PRN PRN Reason: Temp > 100.4 Al Hydroxide/Mg Hydroxide (Milk Of Rasheed Olmedo) 30 ml PO Q12H PRN PRN Reason: Mild Constipation Albuterol (Duoneb Neb (Prn)) 1 ampul NEB Q4HR NEB PRN PRN Reason: SOB/WHEEZING Amlodipine Besylate (Norvasc) 5 mg PO DAILY [facility] Last Admin: 08/06/18 13:32 Dose: 5 mg Aspirin (Aspirin) 325 mg PO DAILY [facility] Last Admin: 08/06/18 13:32 Dose: 325 mg Atorvastatin Calcium (Lipitor) 20 mg PO HS [facility] Bisacodyl (Dulcolax Supp) 10 mg RECTAL DAILY PRN PRN Reason: SEVERE CONSITIPATION Carvedilol (Coreg) 3.125 mg PO BID [facility] Dextrose (D50w Vial) 50 ml IV.PUSH UNSCH PRN PRN Reason: PER HYPOGLYCEMIA PROTOCOL Duloxetine HCl (Cymbalta) 30 mg PO DAILY [facility] Last Admin: 08/06/18 13:32 Dose: 30 mg Finasteride (Proscar) 5 mg PO DAILY@1800 [facility] Last Admin: 08/06/18 17:09 Dose: 5 mg Gabapentin (Neurontin) 300 mg PO Q6HR [facility] Last Admin: 08/06/18 17:09 Dose: 300 mg Glucagon (Glucagon Inj) 1 mg OTHER PRN PRN PRN Reason: for Hypoglycemia Protocol Guaifenesin (Mucinex Er) 600 mg PO BID [facility] Last Admin: 08/06/18 13:32 Dose: 600 mg Heparin Sodium (Porcine) (Heparin Inj) 5,000 units SQ Q12H [facility] Last Admin: 08/06/18 08:48 Dose: 5,000 units Hydralazine HCl (Apresoline) 50 mg PO TID [facility] Last Admin: 08/06/18 17:09 Dose: 50 mg Cefepime HCl 1,000 mg/ Sodium (Chloride) 100 mls @ 200 mls/hr IV.SIG Q12H [facility] Last Infusion: 08/06/18 17:07 Dose: Infused Insulin Aspart (Novolog Insulin [employer]al Sugar Inj) 0 unit SQ ACHS [facility]; Protocol Last Admin: 08/06/18 16:36 Dose: Not Given Insulin Detemir (Levemir Inj) 20 unit SQ BID [facility] Lactulose (Lactulose Liq) 30 ml PO DAILY PRN PRN Reason: SEVERE CONSITIPATION Morphine Sulfate (Morphine Inj) 2 mg IV.PUSH Q4H PRN PRN Reason: PAIN 6-10 Last Admin: 08/06/18 04:43 Dose: 2 mg Ondansetron HCl (Zofran Inj) 4 mg IV.PUSH Q6H PRN PRN Reason: NAUSEA OR VOMITING Pantoprazole Sodium (Protonix) 40 mg PO DAILY [facility] Last Admin: 08/06/18 13:32 Dose: 40 mg Pharmacy Profile Note (Vancomycin Consult Pharmacy) 1 each OTHER UNSCH PRN PRN Reason: Pharmacy to dose Senna/Docusate Sodium (Isabella-Colace) 1 tab PO BID [facility] Last Admin: 08/06/18 08:48 Dose: 1 tab Sennosides (Senokot) 17.2 mg PO Q12H PRN PRN Reason: Moderate Constipation Tamsulosin HCl (Flomax) 0.4 mg PO BID [facility] Allergies Allergy/AdvReac Type Severity Reaction Status Date / Time No Known Allergies Allergy Verified 08/06/18 01:24 Home Medications Medication Instructions Recorded Confirmed Type aspirin 325 mg PO DAILY 06/01/18 06/01/18 History atorvastatin [Lipitor] 20 mg PO HS 06/01/18 08/06/18 History duloxetine [Cymbalta] 30 mg PO DAILY 06/01/18 06/01/18 History dutasteride [Avodart] 0.5 mg PO QPM 06/01/18 06/01/18 History gabapentin 300 mg PO Q6HR 06/01/18 06/01/18 History pantoprazole [Protonix] 40 mg PO DAILY 06/01/18 06/01/18 History tamsulosin [Flomax] 0.4 mg PO BID 06/01/18 08/06/18 History Physical Exam Vital signs: Vital Signs 08/06/18 01:17 08/06/18 01:22 08/06/18 02:41 Temperature Pulse Rate 61 73 67 Respiratory Rate 24 18 20 Blood Pressure 145/63 H 145/63 H Pulse Oximetry 97 96 96 08/06/18 02:53 08/06/18 04:15 08/06/18 04:16 Temperature Pulse Rate 72 64 Respiratory Rate 20 18 Blood Pressure 132/65 130/71 Pulse Oximetry 95 97 97 08/06/18 05:43 08/06/18 08:00 08/06/18 09:00 Temperature 96.6 F L 97.9 F Pulse Rate 59 L 65 69 Respiratory Rate 18 18 Blood Pressure 127/57 L 140/65 Pulse Oximetry 96 95 08/06/18 12:00 08/06/18 12:08 08/06/18 15:25 Temperature 98.1 F Pulse Rate 79 79 Respiratory Rate Blood Pressure 123/58 L Pulse Oximetry 96 96 08/06/18 16:00 Temperature 97.2 F L Pulse Rate 70 Respiratory Rate 20 Blood Pressure 137/63 Pulse Oximetry 97 Intake & Output 08/06/18 08/06/18 08/07/18 06:59 18:59 06:59 Intake Total 980 / 980 Balance 980 / 980 Weight 381 kg 173.255 kg Intake: IV 740 / 740 Maxipime Inj 1,000 MG In NS Inj 200 / 200 100 ML @ 200 mls/hr IV.SIG Q12H [facility] Rx#:[id number] Vancomycin Inj 2,000 MG In NS 540 / 540 Inj 500 ML @ 270 mls/hr IV.SIG ONCE ONE Rx#:[id number] Oral 240 / 240 Other: # Incontinent Voids 2 # Bowel Movements 0 Narrative: Lower extremity physical exam: Vascular: Dorsalis pedis 2/4, posterior tibial nonpalpable secondary to edema. Capillary refill time within normal limits to digits X5 bilateral foot. Edema present right foot Neuro: Gross sensation intact to bilateral lower extremity. Pinpoint sensation decrease no hyperalgesia noted to bilateral lower extremity Dermatology: Right posterior heel ulceration noted with eschar base with surrounding erythema and edema. No purulent drainage upon compression. Plantar sub-met 4 5 ulceration noted with exposed fourth and fifth metatarsal heads necrotic fibrotic tissue noted surrounding erythema and edema. No purulent drainage upon compression. No fluctuance or crepitance noted to right foot. Musculoskeletal: No tenderness to palpation noted. GENERAL: Patient oxygen mask SKIN: Right foot wounds noted HEAD: Atraumatic. EYES: Pupils equal round and reactive. ENT: Airway patent. NECK: Trachea midline. RESPIRATORY: Patient on oxygen mask MUSCULOSKELETAL:. Negative Homans sign bilaterally. NEUROLOGICAL: Awake and alert. Assessment and Plan - Plan 73-year-old male with right heel ulceration as well as sub-met for 5 ulceration noted Patient examined evaluated with all questions answered X-ray right foot Right foot dressed with Betadine and dry sterile dressing Continue Betadine dressings to right foot daily We will place wound care dressing orders Will discuss with hospitalist is most likely patient has osteomyelitis secondary to there being exposed bone to both heel wound as well as sub-met 4/5 wound
--- NOTE | 2018-08-06 20:46 | XR ---
EXAM DATE: 08/06/2018 12:00 AM EDT AGE/SEX: 73 years / Male INDICATIONS: Foot pain. CLINICAL DATA: This is the patient's initial encounter. Patient reports that signs and symptoms have been present for 2 months and indicates a pain score of 6/10. MEDICAL/SURGICAL HISTORY: Diabetes mellitus type II. None. COMPARISON: No prior exams available for comparison. FINDINGS: There appears to be destructive change at the distal fifth metatarsal head. There some questionable d estructive changes at the fourth metatarsal head. CONCLUSION: Destructive changes at the fifth metatarsal head and possibly the fourth metatarsal head. Electronically signed by: Xander Chowdhury MD 08/06/2018 8:45 PM EDT
[2018-08-06] MEDS: Insulin Detemir Inj 1,000 UNIT/10 ML Vial SQ SCH (21:44)
[2018-08-07] MEDS: Gabapentin 300 MG Capsule PO SCH ×5 (00:45→23:01)
[2018-08-07 06:20] LABS: Baso % (Auto) 0.5 % (0.0-2.0); Eos # (Auto) 0.2 th/mm3 (0.0-0.4); Eos % (Auto) 3.4 % (0.0-4.0); Hemoglobin 9.2 gm/dL (13.0-17.0); Lymph # (Auto) 1.5 th/mm3 (1.0-4.8); Lymph % (Auto) 21.7 % (9.0-44.0); Mean Corpuscular HGB Conc 32.8 % (32.0-36.0); Mean Corpuscular Hemoglobin 28.4 pg (27.0-34.0); Mean Corpuscular Volume 86.5 fL (80.0-100.0); Mean Platelet Volume 8.3 fL (7.0-11.0); Mono # (Auto) 0.5 th/mm3 (0.0-0.9); Mono % (Auto) 6.9 % (0.0-8.0); Neut # (Auto) 4.6 th/mm3 (1.8-7.7); Neut % (Auto) 67.5 % (16.0-70.0); Platelet Count 164 th/mm3 (150-450); Red Blood Count 3.24 mil/mm3 (4.50-5.90); Red Cell Distribution Width 16.3 % (11.6-17.2); White Blood Count 6.8 th/mm3 (4.0-11.0)
[2018-08-07 06:33] LABS: Alanine Aminotransferase 21 U/L (12-78); Albumin 1.9 g/dL (3.4-5.0); Anion Gap 10 meq/L (5-15); Aspartate Aminotransferase 14 U/L (15-37); Blood Urea Nitrogen 80 mg/dL (7-18); Calcium 7.7 mg/dL (8.5-10.1); Carbon Dioxide 25.9 meq/L (21.0-32.0); Chloride 111 meq/L (98-107); Glomerular Filtration Rate 38 mL/min (>89); Glucose,Random 87 mg/dL (74-106); Magnesium 2.4 mg/dL (1.5-2.5); Potassium 4.4 meq/L (3.5-5.1); Sodium 147 meq/L (136-145)
[2018-08-07 06:42] LABS: Alkaline Phosphatase 72 U/L (45-117); Free T4 (Free Thyroxine) 1.04 ng/dL (0.76-1.46); Phosphorus 4.3 mg/dL (2.5-4.9); Total Protein 7.3 g/dL (6.4-8.2); Vancomycin,Random 11.3 Comment
[2018-08-07] MEDS: amLODIPine 5 MG Tablet PO SCH (09:17)
[2018-08-07] MEDS: Senna/Docusate Sodium 8.6/50 MG Tablet PO SCH ×2 (09:18→22:37)
[2018-08-07] MEDS: guaiFENesin 600 MG ER Tablet PO SCH ×2 (09:18→22:36)
[2018-08-07] MEDS: hydrALAZINE 50 MG Tablet PO SCH ×3 (09:18→18:07)
[2018-08-07] MEDS: Aspirin 325 MG Tablet PO SCH (09:18)
[2018-08-07] MEDS: Heparin - SQ 10,000 UNITS/ML Vial SQ SCH ×2 (09:19→22:37)
[2018-08-07] MEDS: Insulin Detemir Inj 1,000 UNIT/10 ML Vial SQ SCH ×2 (09:19→22:35)
[2018-08-07] MEDS: Insulin NovoLOG Aspart Correctional Sugar Inj SQ SCH ×4 (12:00→22:35)
[2018-08-07] MEDS ORDERED: Vancomycin Inj 2,000 MG in Sodium Chlor 0.9% Inj 500 ML IV.SIG ONE (12:00)
[2018-08-07 12:54] LABS: Hemoglobin A1c 8.3 % (4.3-6.0)
[2018-08-07] MEDS: Azithromycin 250 MG Tablet PO SCH (16:21)
[2018-08-07] MEDS ORDERED: Furosemide 20 MG Tablet PO ONE (16:26)
--- NOTE | 2018-08-07 16:44 | P.PN ---
Subjective Interval history: Follow-up for pulmonary edema, bilateral pleural effusions, pneumonia: Patient seen and examined. No shortness of breath at rest, on oxygen at 6 L. Cannot keep oxygen mask in place as it is too small. Has a cough, nonproductive. No fever. Indicates he has not been very mobile, has not walked in many years. No fever. Per nursing, drinking a lot of water, incontinent of urine. Physical Exam Vital signs: Vital Signs 08/06/18 20:00 08/06/18 20:37 08/06/18 22:07 Temperature 97.2 F L Pulse Rate 86 83 Respiratory Rate 20 Blood Pressure 125/69 Pulse Oximetry 90 L 97 08/07/18 00:00 08/07/18 04:00 08/07/18 08:00 Temperature 97.6 F 97.4 F L 97.2 F L Pulse Rate 69 76 80 Respiratory Rate 18 17 21 Blood Pressure 124/62 122/64 145/66 H Pulse Oximetry 95 95 96 08/07/18 08:44 08/07/18 12:00 Temperature 97.4 F L Pulse Rate 82 Respiratory Rate 22 Blood Pressure 120/58 L Pulse Oximetry 96 94 L Intake & Output 08/06/18 08/07/18 08/07/18 18:59 06:59 18:59 Intake Total 980 / 980 100 / 100 640 / 640 Balance 980 / 980 100 / 100 640 / 640 Weight 173.255 kg Intake: IV 740 / 740 100 / 100 640 / 640 Maxipime Inj 1,000 MG In NS Inj 200 / 200 100 / 100 100 / 100 100 ML @ 200 mls/hr IV.SIG Q8H [facility] Rx#:[id number] Vancomycin Inj 2,000 MG In NS 540 / 540 540 / 540 Inj 500 ML @ 270 mls/hr IV.SIG ONCE ONE Rx#:[id number] Oral 240 / 240 Other: # Incontinent Voids 2 # Bowel Movements 0 Narrative: GENERAL: Morbidly obese male, does not appear in any distress. 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 HEAD: Atraumatic. Normocephalic. EYES: Pupils equal and round. No scleral icterus. No injection or drainage. ENT: No nasal bleeding or discharge. Mucous membranes pink and moist. NECK: Trachea midline. No JVD. CARDIOVASCULAR: Regular rate and rhythm. RESPIRATORY: Scattered rhonchi. Poor inspiratory effort, diminished at bases. GASTROINTESTINAL: Abdomen soft, non-tender, nondistended. Hepatic and splenic margins not palpable. MUSCULOSKELETAL: Bilateral lower extremity with edema, pedal pulses +1. Right foot, dressing clean dry and intact. Bilateral lower extremity with venous discoloration. NEUROLOGICAL: Awake, oriented x2. No focal deficits. PSYCHIATRIC: Appropriate mood and affect; insight and judgment normal. Results - Labs CBC & Chem 7: 08/07/18 05:04 08/07/18 05:04 Laboratory Results - last 24 hr 08/06/18 08/07/18 08/07/18 16:36 05:04 05:04 WBC 6.8 RBC 3.24 L Hgb 9.2 L Hct 28.0 L MCV 86.5 MCH 28.4 MCHC 32.8 RDW 16.3 Plt Count 164 MPV 8.3 Neut % (Auto) 67.5 Lymph % (Auto) 21.7 [place] % (Auto) 6.9 Eos % (Auto) 3.4 Baso % (Auto) 0.5 Neut # (Auto) 4.6 Lymph # (Auto) 1.5 [place] # (Auto) 0.5 Eos # (Auto) 0.2 Baso # (Auto) 0.0 WBC Differential . Differential Comment Auto diff final Sodium 147 H Potassium 4.4 Chloride 111 H Carbon Dioxide 25.9 Anion Gap 10 BUN 80 H Creatinine 1.74 H Estimated GFR 38 L POC Glucose 87 Random Glucose 87 Hemoglobin A1c Calcium 7.7 L Phosphorus 4.3 Magnesium 2.4 Total Bilirubin 0.3 AST 14 L ALT 21 Alkaline Phosphatase 72 Total Protein 7.3 Albumin 1.9 L TSH 2.770 Free T4 1.04 Random Vancomycin 11.3 08/07/18 08/07/18 05:04 12:21 WBC RBC Hgb Hct MCV MCH MCHC RDW Plt Count MPV Neut % (Auto) Lymph % (Auto) [place] % (Auto) Eos % (Auto) Baso % (Auto) Neut # (Auto) Lymph # (Auto) [place] # (Auto) Eos # (Auto) Baso # (Auto) WBC Differential Differential Comment Sodium Potassium Chloride Carbon Dioxide Anion Gap BUN Creatinine Estimated GFR POC Glucose 141 H Random Glucose Hemoglobin A1c 8.3 H Calcium Phosphorus Magnesium Total Bilirubin AST ALT Alkaline Phosphatase Total Protein Albumin TSH Free T4 Random Vancomycin Microbiology 08/07/18 15:30 Nasal Wash Influenza Types A,B Antigen - Final Negative for FLU A and B antigen Infection due to influenza A or B cannot be ruled out since the antigen present in the sample may be below the detection limit of the test. - Imaging Impressions Foot X-Ray 08/06/18 00:00 CONCLUSION: Destructive changes at the fifth metatarsal head and possibly the fourth metatarsal head. Assessment and Plan - Assessment (1) PNA (pneumonia) Code(s): J18.9 - Pneumonia, unspecified organism Status: Acute (2) Pleural effusion Code(s): J90 - Pleural effusion, not elsewhere classified Status: Acute (3) JOSE (acute kidney injury) Code(s): N17.9 - Acute kidney failure, unspecified Status: Acute - Plan Assessment/plan 73-year-old male with PMH of HTN, Hyperlipidemia, DM, Peripheral Neuropathy and Morbid Obesity who was brought to the ER by EMS from [facility] for SOB and hypoxia. Per report, pt had episode of SOB w/ O2 sat 70% on RA, however pt refused transport to the ER. Patient presented with recurrent shortness of breath and hypoxia. Has been on Zyvox for LE Wound Infection +MRSA, recently started on Levaquin for PNA. Pt poor historian, unable to obtain much history. Main complaint is back pain at this time. On arrival, BP 145/63, HR 81, O2 sat 97% on 10 L Simple Mask. CBC unremarkable. ABG essentially unremarkable. Creatinine 1.93, previously 1.83 on 06/10/2018. BNP 300. CXR with bilateral lung consolidation, possible pulmonary edema with small bilateral pleural effusions. S/p Lasix in ER. PNA: CXR w/ bilateral consolidations, w/ associated respiratory distress and hypoxia -Continue with oxygen via facemask or nasal cannula to keep sats greater than 90. -Continue with CPAP as needed -Change duo nebs to every 8, continue as needed as well -We will check swab for influenza, urine for Legionella Infectious disease has been consulted, case has been discussed with Dr. Bazan. Continue with Zithromax, Zyvox and cefepime. Patient likely has component of sleep apnea Continue with CPAP as needed Will need sleep study as outpatient Pleural Effusions: CXR w/ small bilateral pleural effusions, images reviewed, likely related to underlying infection, BNP 300, s/p Lasix in ER Has been drinking p.o. fluids, will place on 1200 cc fluid restriction Echo 06/03/18 w/ mildly impaired LV function. -We will give extra dose of Lasix 20 mg p.o. At this time we will not put on a daily dose as creatinine is elevated. Monitor intake and output Right foot with MRSA infection, heel ulceration X-ray right foot-destructive changes at fifth and fourth metatarsal head. -Appreciate podiatry input, continue with wound care per their recommendations. Betadine and dry sterile dressing. Per podiatry, patient likely has osteomyelitis, has exposed bone to both heels Wound care input appreciated, recommendations noted Obesity Will order a bariatric bed JOSE: Creatinine 1.93, now 1.74 Monitor renal function Avoid nephrotoxic agents Type 2 diabetes Continue with Accu-Cheks before meals and at bedtime -Diabetic diet -Blood sugars trending low, 60s-70s, decrease Levemir to 10 units subcu twice daily Hypertension -Continue carvedilol and hydralazine Hyperlipidemia Continue Lipitor -Depression Continue duloxetine Peripheral neuropathy Continue gabapentin GERD Continue protonix BPH -Continue Flomax Heparin for DVT prophylaxis Protonix for GI prophylaxis Repeat labs in the morning Code Status: Full code Discussed Condition With: RN, pt, CM Spoke to patient's sister on the phone. Discharge Planning: Back to SNF when infection resolved.
--- NOTE | 2018-08-07 17:39 | P.CONID ---
History of Present Illness Service: Infectious Disease Consult date: 08/07/18 Requesting Physician: Emily Mckeon Reason for Consult: Evaluation and Mment of osteomyelitis and Pneumonia Primary Care Provider: UNKNOWN Chief Complaint: Right foot ulceration History of Present Illness: Mr. Meléndez is a 73-year-old male with past medical history significant for morbid obesity, peripheral neuropathy, diabetes mellitus, hyperlipidemia and hypertension. Patient is a long-term resident of [facility] in reportedly is not very active and is mostly bedbound. Patient was brought into the emergency room by EMS from [facility] for shortness of breath and hypoxia. Per report patient had an episode of shortness of breath with O2 sats of 70% on room air however patient refused transport to the ER. Thereafter patient had another episode of shortness of breath and hypoxia. By this time patient had been treated with Zyvox for lower extremity wound for positive MRSA as well as recently started on Levaquin for pneumonia at the [facility]. Patient has a PICC line in place and has been treated with IV antibiotics. Nurse taking care of the patient informs me that currently there is no blood draws from the PICC line but medications can be infused although with some difficulty. Due to concern for thrombosis at the site of PICC line I have ordered a Doppler which is pending at the present time. On arrival his blood pressure was 145 x 63, heart rate of 81, O2 sats 97% on 10 L simple mask. His blood gas was unremarkable. His creatinine was 1.93 and previously in May 2018 was 1.83. His chest x-ray showed bilateral lung consolidation possible element of pulmonary edema as well as small bilateral pleural effusion. He received 1 dose of Lasix in the ER. Infectious diseases consulted for evaluation and pneumonia as well as osteomyelitis. Review of Systems All other systems reviewed negative except as stated in HPI, other (Patient does not appear to be a reliable historian.) [facility] - History History Provided By: Patient - Medical History Medical History: Medical History (Last Reviewed 08/06/18 @ 14:39 by Funmi Pierce) Obesity Depression Diabetes Diabetes GERD (gastroesophageal reflux disease) HTN (hypertension) High cholesterol Neuropathy - Tobacco History Second Hand Smoke Exposure: No Tobacco Use In Past 30 Days: No Smoking Status: Former smoker Tobacco Type: Cigarettes - Alcohol History How Often Do You Have a Drink Containing Alcohol: Never - Substance Use History Substance History: No History of Abuse - Immunization History Tetanus Immunization: Unsure Hx Influenza Vaccine This Season: No Medications and Allergies Active Medications: Active Medications Acetaminophen (Tylenol) 650 mg PO Q4H PRN PRN Reason: Temp > 100.4 Al Hydroxide/Mg Hydroxide (Milk Of Rasheed Liq) 30 ml PO Q12H PRN PRN Reason: Mild Constipation Albuterol (Duoneb Neb (Prn)) 1 ampul NEB Q4HR NEB PRN PRN Reason: SOB/WHEEZING Albuterol (Duoneb Neb (Filomena)) 1 ampul NEB Q8HR ALT NEB [facility], [facility] Amlodipine Besylate (Norvasc) 5 mg PO DAILY [facility] Last Admin: 08/07/18 09:17 Dose: 5 mg Aspirin (Aspirin) 325 mg PO DAILY [facility] Last Admin: 08/07/18 09:18 Dose: 325 mg Atorvastatin Calcium (Lipitor) 20 mg PO HS [facility] Last Admin: 08/06/18 21:44 Dose: 20 mg Azithromycin (Zithromax) 500 mg PO DAILY [facility] Last Admin: 08/07/18 16:21 Dose: 500 mg Bisacodyl (Dulcolax Supp) 10 mg RECTAL DAILY PRN PRN Reason: SEVERE CONSITIPATION Carvedilol (Coreg) 3.125 mg PO BID [facility] Last Admin: 08/07/18 09:18 Dose: 3.125 mg Dextrose (D50w Vial) 50 ml IV.PUSH UNSCH PRN PRN Reason: PER HYPOGLYCEMIA PROTOCOL Duloxetine HCl (Cymbalta) 30 mg PO DAILY [facility] Last Admin: 08/07/18 09:18 Dose: 30 mg Finasteride (Proscar) 5 mg PO DAILY@1800 [facility] Last Admin: 08/06/18 17:09 Dose: 5 mg Gabapentin (Neurontin) 300 mg PO Q6HR [facility] Last Admin: 08/07/18 12:14 Dose: 300 mg Glucagon (Glucagon Inj) 1 mg OTHER PRN PRN PRN Reason: for Hypoglycemia Protocol Guaifenesin (Mucinex Er) 600 mg PO BID [facility] Last Admin: 08/07/18 09:18 Dose: 600 mg Heparin Sodium (Porcine) (Heparin Inj) 5,000 units SQ Q12H [facility] Last Admin: 08/07/18 09:19 Dose: 5,000 units Hydralazine HCl (Apresoline) 50 mg PO TID [facility] Last Admin: 08/07/18 12:15 Dose: 50 mg Linezolid (Zyvox 600 Mg Premix) 300 mls @ 300 mls/hr IV.SIG Q12H [facility] Last Admin: 08/07/18 16:20 Dose: 300 mls/hr Cefepime HCl 1,000 mg/ Sodium (Chloride) 100 mls @ 200 mls/hr IV.SIG Q8H [facility] Last Infusion: 08/07/18 16:21 Dose: Infused Insulin Aspart (Novolog Insulin Correctional Sugar Inj) 0 unit SQ ACHS [facility]; Protocol Last Admin: 08/07/18 14:32 Dose: 10 unit Insulin Detemir (Levemir Inj) 20 unit SQ BID [facility] Last Admin: 08/07/18 09:19 Dose: 20 unit Lactulose (Lactulose Liq) 30 ml PO DAILY PRN PRN Reason: SEVERE CONSITIPATION Morphine Sulfate (Morphine Inj) 2 mg IV.PUSH Q4H PRN PRN Reason: PAIN 6-10 Last Admin: 08/06/18 04:43 Dose: 2 mg Ondansetron HCl (Zofran Inj) 4 mg IV.PUSH Q6H PRN PRN Reason: NAUSEA OR VOMITING Pantoprazole Sodium (Protonix) 40 mg PO DAILY [facility] Last Admin: 08/07/18 09:18 Dose: 40 mg Senna/Docusate Sodium (Isabella-Colace) 1 tab PO BID [facility] Last Admin: 08/07/18 09:18 Dose: 1 tab Sennosides (Senokot) 17.2 mg PO Q12H PRN PRN Reason: Moderate Constipation Tamsulosin HCl (Flomax) 0.4 mg PO BID [facility] Last Admin: 08/07/18 09:18 Dose: 0.4 mg Allergies Allergy/AdvReac Type Severity Reaction Status Date / Time No Known Allergies Allergy Verified 08/06/18 01:24 Home Medications Medication Instructions Recorded Confirmed Type aspirin 325 mg PO DAILY 06/01/18 06/01/18 History atorvastatin [Lipitor] 20 mg PO HS 06/01/18 08/06/18 History duloxetine [Cymbalta] 30 mg PO DAILY 06/01/18 06/01/18 History dutasteride [Avodart] 0.5 mg PO QPM 06/01/18 06/01/18 History gabapentin 300 mg PO Q6HR 06/01/18 06/01/18 History pantoprazole [Protonix] 40 mg PO DAILY 06/01/18 06/01/18 History tamsulosin [Flomax] 0.4 mg PO BID 06/01/18 08/06/18 History Exam Vital signs: Vital Signs 08/06/18 20:00 08/06/18 20:37 08/06/18 22:07 Temperature 97.2 F L Pulse Rate 86 83 Respiratory Rate 20 Blood Pressure 125/69 Pulse Oximetry 90 L 97 08/07/18 00:00 08/07/18 04:00 08/07/18 08:00 Temperature 97.6 F 97.4 F L 97.2 F L Pulse Rate 69 76 72 Respiratory Rate 18 17 21 Blood Pressure 124/62 122/64 145/66 H Pulse Oximetry 95 95 96 08/07/18 08:44 08/07/18 12:00 08/07/18 16:00 Temperature 97.4 F L 98.1 F Pulse Rate 82 81 Respiratory Rate 22 23 Blood Pressure 120/58 L 138/62 Pulse Oximetry 96 94 L 93 L Intake & Output 08/06/18 08/07/18 08/07/18 18:59 06:59 18:59 Intake Total 980 / 980 100 / 100 640 / 640 Balance 980 / 980 100 / 100 640 / 640 Weight 173.255 kg Intake: IV 740 / 740 100 / 100 640 / 640 Maxipime Inj 1,000 MG In NS Inj 200 / 200 100 / 100 100 / 100 100 ML @ 200 mls/hr IV.SIG Q8H [facility] Rx#:[id number] Vancomycin Inj 2,000 MG In NS 540 / 540 540 / 540 Inj 500 ML @ 270 mls/hr IV.SIG ONCE ONE Rx#:[id number] Oral 240 / 240 Other: # Voids 1 # Incontinent Voids 2 # Bowel Movements 0 Narrative: GENERAL: Morbid Obesity, not in acute distress SKIN: Cool and dry, no generalized rash HEAD: Atraumatic. Normocephalic. No temporal or scalp tenderness. EYES: Pupils equal round and reactive. Scleral icterus. No injection or drainage. No petechia ENT: Nothing abnormal detected NECK: Trachea midline. Supple, nontender, no meningeal signs. CARDIOVASCULAR: HS audible. RESPIRATORY: Clear to auscultation bilaterally. GASTROINTESTINAL: Abdomen soft nontender. MUSCULOSKELETAL: Right LE with 2nd,3rd, 4th digit plantar aspect ulceration down to bone. NEUROLOGICAL: Alert oriented 3. Nonfocal. Psych cooperative IV line sites ok. Results - Labs CBC & Chem 7: 08/09/18 06:49 08/09/18 06:49 Labs: Laboratory Results - last 24 hr 08/07/18 08/07/18 08/07/18 05:04 05:04 05:04 WBC 6.8 RBC 3.24 L Hgb 9.2 L Hct 28.0 L MCV 86.5 MCH 28.4 MCHC 32.8 RDW 16.3 Plt Count 164 MPV 8.3 Neut % (Auto) 67.5 Lymph % (Auto) 21.7 [place] % (Auto) 6.9 Eos % (Auto) 3.4 Baso % (Auto) 0.5 Neut # (Auto) 4.6 Lymph # (Auto) 1.5 [place] # (Auto) 0.5 Eos # (Auto) 0.2 Baso # (Auto) 0.0 WBC Differential . Differential Comment Auto diff final Sodium 147 H Potassium 4.4 Chloride 111 H Carbon Dioxide 25.9 Anion Gap 10 BUN 80 H Creatinine 1.74 H Estimated GFR 38 L POC Glucose Random Glucose 87 Hemoglobin A1c 8.3 H Calcium 7.7 L Phosphorus 4.3 Magnesium 2.4 Total Bilirubin 0.3 AST 14 L ALT 21 Alkaline Phosphatase 72 Total Protein 7.3 Albumin 1.9 L TSH 2.770 Free T4 1.04 Random Vancomycin 11.3 08/07/18 12:21 WBC RBC Hgb Hct MCV MCH MCHC RDW Plt Count MPV Neut % (Auto) Lymph % (Auto) [place] % (Auto) Eos % (Auto) Baso % (Auto) Neut # (Auto) Lymph # (Auto) [place] # (Auto) Eos # (Auto) Baso # (Auto) WBC Differential Differential Comment Sodium Potassium Chloride Carbon Dioxide Anion Gap BUN Creatinine Estimated GFR POC Glucose 141 H Random Glucose Hemoglobin A1c Calcium Phosphorus Magnesium Total Bilirubin AST ALT Alkaline Phosphatase Total Protein Albumin TSH Free T4 Random Vancomycin - Imaging Impressions Foot X-Ray 08/06/18 00:00 CONCLUSION: Destructive changes at the fifth metatarsal head and possibly the fourth metatarsal head. Assessment and Plan - Plan Possible Health care associated pneumonia Osteomyelitis of right little toe PICC line in place r/o infection, thrombus. Morbid Obesity Sleep apnea based on clinical picture. Recs: Blood cultures x 2 Blood culture from PICC line Continue Cefepime increase dose to q8hrs DC vanco IV Start Zyvox IV Start Azithro oral Follow cultures Follow clinical course. Check urine legionella antigen. delfino Rodríguez about resp issues when sleeping concern for Sleep apnea. dw patient dw RN Dw RN to remove the PICC line once alternate access established.
[2018-08-07] MEDS: Finasteride 5 MG Tablet PO SCH (18:04)
--- NOTE | 2018-08-07 18:49 | US ---
EXAM DATE: 08/07/2018 12:00 AM EDT AGE/SEX: 73 years / Male INDICATIONS: Right arm swelling. CLINICAL DATA: This is the patient's initial encounter. Patient reports that signs and symptoms have been present for 3 days and indicates a pain score of 1/10. MEDICAL/SURGICAL HISTORY: Gastroesophageal reflux disease. Hypercholesterolemia. Hypertension . Depression. Diabetes. Neuropathy. Obeisty. None. COMPARISON: No prior exams available for comparison. FINDINGS: The vessels are compressible and augmentation response is documented. No filling defects a re seen. The flow is phasic with respiration. Other: None. CONCLUSION: No evidence of right upper extremity DVT. Electronically signed by: Sabino Suh MD 08/07/2018 6:48 PM EDT
[2018-08-08] MEDS: Gabapentin 300 MG Capsule PO SCH ×4 (06:05→23:03)
[2018-08-08 06:06] LABS: Hematocrit 26.2 % (39.0-51.0); Hemoglobin 8.5 gm/dL (13.0-17.0); Mean Corpuscular HGB Conc 32.4 % (32.0-36.0); Mean Corpuscular Hemoglobin 28.3 pg (27.0-34.0); Mean Corpuscular Volume 87.3 fL (80.0-100.0); Platelet Count 154 th/mm3 (150-450); Red Cell Distribution Width 16.6 % (11.6-17.2); White Blood Count 7.3 th/mm3 (4.0-11.0)
[2018-08-08 06:33] LABS: Calcium 7.8 mg/dL (8.5-10.1); Carbon Dioxide 26.5 meq/L (21.0-32.0); Potassium 4.3 meq/L (3.5-5.1)
[2018-08-08 06:37] LABS: Vancomycin,Random 19.8 Comment
--- NOTE | 2018-08-08 08:15 | P.DIET ---
Nutritional Evaluation Type of nutrition evaluation: initial Nutrition [place] [facility] [place]: Stage 3 pressure injury, unstageable pressure injuries Objective - Diagnosis PNA - Objective [place] body weight: 84 kg % IBW: 208 Body Weight Used for Calculations: IBW Energy Needs - Lower Range (kCal/kg): 28 Energy Needs - Upper Range (kCal/kg): 33 Lower Limit kCal/kg (kCals): 2,352 Upper Limit kCal/kg (kCals): 2,772 Lower Limit Protein Factor (Grams per Kg): 1.2 Upper Limit Protein Factor (Grams per Kg): 1.5 Lower Protein Needs (Protein): 101 Upper Protein Needs (Protein): 126 Dietitian Reviewed in Medical Record: Current diet, Curent medications, Intake & Output, Labs, Medical history, Wound/DTI Diet Order: 1800 ADA w/1200ml FR Wound Care Note: 08/06 Stage 3 pressure injury R Buttock, unstageable pressure injuries to R lateral foot and R heel Objective Comments: PMH: DM, GERD, HLD, HTN, Neuropathy, Obesity Feeding - Current PO Supplement Current Supplement: Glucerna Shake Current Supplement Flavor: Vanilla Current Frequency of Supplement: Twice daily Current kCals Provided by Supplement: 220 Current Protein Provided by Supplement: 10 Assessment Assessment: Pt at nutritional risk r/t current clinical status. Pt admitted with pressure injuries, see WOC note 08/06. Pt's nutritional needs as assessed above. In order to meet his needs, a calorie level of 2200 is necessary. In addition, Glucerna shakes BID will be added to his trays within the fluid restriction. Pt is currently eating at least 50% of most of his meals. Will monitor po intake, wounds, clinical course. Recommendations: Increase calorie level to 2200 ADA Glucerna BID Dietitian to Monitor: Lab values, Glucose level, Supplement acceptance, Intake & Output, PO Intake, Wound/skin status, Medical course
[2018-08-08] MEDS: Azithromycin 250 MG Tablet PO SCH (09:51)
[2018-08-08] MEDS: Heparin - SQ 10,000 UNITS/ML Vial SQ SCH ×2 (09:51→21:54)
[2018-08-08] MEDS: Insulin NovoLOG Aspart Correctional Sugar Inj SQ SCH ×4 (09:51→21:54)
[2018-08-08] MEDS: guaiFENesin 600 MG ER Tablet PO SCH ×2 (09:51→21:53)
[2018-08-08] MEDS: amLODIPine 5 MG Tablet PO SCH (09:51)
[2018-08-08] MEDS: Aspirin 325 MG Tablet PO SCH (09:51)
[2018-08-08] MEDS: hydrALAZINE 50 MG Tablet PO SCH ×3 (09:51→19:02)
[2018-08-08] MEDS: Insulin Detemir Inj 1,000 UNIT/10 ML Vial SQ SCH ×2 (09:52→21:55)
[2018-08-08] MEDS: Senna/Docusate Sodium 8.6/50 MG Tablet PO SCH ×2 (11:50→21:54)
--- NOTE | 2018-08-08 12:00 | P.PNIM ---
Subjective Interval history: This is a 73-year-old male with PMH of HTN, Hyperlipidemia, DM, Peripheral Neuropathy and Morbid Obesity who was brought to the ER by EMS from [facility] for SOB and hypoxia. Per report, pt had episode of SOB w/ O2 sat 70% on RA, however pt refused transport to the ER. Meagan, pt w/ recurrent episode of SOB and hypoxia. Has been on Zyvox for LE Wound Infection +MRSA, recently started on Levaquin for PNA. Pt poor historian, unable to obtain much history. Main complaint is back pain at this time. On arrival, BP 145/63, HR 81, O2 sat 97% on 10 L Simple Mask. CBC unremarkable. ABG essentially unremarkable. Creatinine 1.93, previously 1.83 on 06/10/2018. BNP 300. CXR with bilateral lung consolidation, possible pulmonary edema with small bilateral pleural effusions. S/p Lasix in ER. 08-06 CONTINUE ANTIBIOTICS HX OF DM PT AND OT MED REC AM LABS DW RN AND PT AND CM SPUTUM IS MUCINEX 08-07 Follow-up for pulmonary edema, bilateral pleural effusions, pneumonia: Patient seen and examined. No shortness of breath at rest, on oxygen at 6 L. Cannot keep oxygen mask in place as it is too small. Has a cough, nonproductive. No fever. Indicates he has not been very mobile, has not walked in many years. No fever. Per nursing, drinking a lot of water, incontinent of urine. 08-08 MALORIE PODIATRY SEEN BY ID -SUSPECTED OSTEOMYELITIS CONTINUE ANTIBIOTICS PER ID AM LABS PT AND OT Physical Exam Vital signs: Vital Signs 08/07/18 12:00 08/07/18 16:00 08/07/18 19:13 Temperature 97.4 F L 98.1 F Pulse Rate 82 81 Respiratory Rate 22 23 Blood Pressure 120/58 L 138/62 Pulse Oximetry 94 L 93 L 93 L 08/07/18 19:14 08/07/18 20:00 08/08/18 00:00 Temperature 97.2 F L 97.1 F L Pulse Rate 81 72 82 Respiratory Rate 22 20 20 Blood Pressure 136/75 137/61 Pulse Oximetry 92 L 93 L 08/08/18 02:45 08/08/18 03:53 08/08/18 04:00 Temperature 97.1 F L Pulse Rate 80 72 Respiratory Rate 19 20 Blood Pressure 137/61 Pulse Oximetry 98 93 L 08/08/18 08:00 08/08/18 11:47 Temperature 97.2 F L Pulse Rate 72 72 Respiratory Rate 18 18 Blood Pressure 136/61 Pulse Oximetry 92 L 94 L Intake & Output 08/07/18 08/08/18 08/08/18 18:59 06:59 18:59 Intake Total 1600 / 1600 820 / 820 Balance 1600 / 1600 820 / 820 Weight 173.2 kg Intake: IV 640 / 640 820 / 820 Maxipime Inj 1,000 MG In NS Inj 100 / 100 215 / 215 100 ML @ 200 mls/hr IV.SIG Q8H [facility] Rx#:[id number] Zyvox 600 mg Premix 300 ML @ 605 / 605 300 mls/hr IV.SIG Q12H [facility] Rx#: [id number] Vancomycin Inj 2,000 MG In NS 540 / 540 Inj 500 ML @ 270 mls/hr IV.SIG ONCE ONE Rx#:[id number] Oral 960 / 960 Other: # Voids 1 # Incontinent Voids 4 Narrative: GENERAL: Morbidly obese male, does not appear in any distress. 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 HEAD: Atraumatic. Normocephalic. EYES: Pupils equal and round. No scleral icterus. No injection or drainage. ENT: No nasal bleeding or discharge. Mucous membranes pink and moist. NECK: Trachea midline. No JVD. CARDIOVASCULAR: Regular rate and rhythm. RESPIRATORY: Scattered rhonchi. Poor inspiratory effort, diminished at bases. GASTROINTESTINAL: Abdomen soft, non-tender, nondistended. Hepatic and splenic margins not palpable. MUSCULOSKELETAL: Bilateral lower extremity with edema, pedal pulses +1. Right foot, dressing clean dry and intact. Bilateral lower extremity with venous discoloration. NEUROLOGICAL: Awake, oriented x2. No focal deficits. PSYCHIATRIC: Appropriate mood and affect; insight and judgment normal. Results - Labs CBC & Chem 7: 08/08/18 05:40 08/08/18 05:40 Laboratory Results - last 24 hr 08/07/18 08/07/18 08/07/18 05:04 12:21 20:03 WBC RBC Hgb Hct MCV MCH MCHC RDW Plt Count MPV Sodium Potassium Chloride Carbon Dioxide Anion Gap BUN Creatinine Estimated GFR POC Glucose 141 H 208 H Random Glucose Hemoglobin A1c 8.3 H Calcium Random Vancomycin 08/08/18 08/08/18 08/08/18 05:40 05:40 09:05 WBC 7.3 RBC 3.00 L Hgb 8.5 L Hct 26.2 L MCV 87.3 MCH 28.3 MCHC 32.4 RDW 16.6 Plt Count 154 MPV 8.0 Sodium 141 Potassium 4.3 Chloride 107 Carbon Dioxide 26.5 Anion Gap 8 BUN 75 H Creatinine 1.55 H Estimated GFR 44 L POC Glucose 153 H Random Glucose 166 H Hemoglobin A1c Calcium 7.8 L Random Vancomycin 19.8 Microbiology 08/07/18 22:45 Blood - Line Aerobic Blood Culture - Preliminary No growth in 1 day 08/07/18 22:45 Blood - Line Anaerobic Blood Culture - Preliminary No growth in 1 day 08/07/18 16:40 Blood - Peripheral Aerobic Blood Culture - Preliminary No growth in 1 day 08/07/18 16:40 Blood - Peripheral Anaerobic Blood Culture - Preliminary No growth in 1 day 08/07/18 16:45 Blood - Peripheral Aerobic Blood Culture - Preliminary No growth in 1 day 08/07/18 16:45 Blood - Peripheral Anaerobic Blood Culture - Preliminary No growth in 1 day 08/07/18 17:25 Urine - Clean Catch Urine Legionella Antigen - Final Presumptive negative for Legionella pneumophila serogroup 1 antigen in urine, suggesting no recent or recurrent infection. Infection due to Legionella cannot be ruled out since other serogroups and species may cause disease, antigen may not be present in urine in early infection, and the level of antigen present in the urine may be below the detection limit of the test. 08/07/18 15:30 Nasal Wash Influenza Types A,B Antigen - Final Negative for FLU A and B antigen Infection due to influenza A or B cannot be ruled out since the antigen present in the sample may be below the detection limit of the test. - Imaging Impressions Venous Doppler Study 08/07/18 00:00 CONCLUSION: No evidence of right upper extremity DVT. Assessment and Plan - Assessment (1) PNA (pneumonia) Code(s): J18.9 - Pneumonia, unspecified organism Status: Acute (2) Pleural effusion Code(s): J90 - Pleural effusion, not elsewhere classified Status: Acute (3) JOSE (acute kidney injury) Code(s): N17.9 - Acute kidney failure, unspecified Status: Acute - Plan Assessment/plan 73-year-old male with PMH of HTN, Hyperlipidemia, DM, Peripheral Neuropathy and Morbid Obesity who was brought to the ER by EMS from [facility] for SOB and hypoxia. Per report, pt had episode of SOB w/ O2 sat 70% on RA, however pt refused transport to the ER. Patient presented with recurrent shortness of breath and hypoxia. Has been on Zyvox for LE Wound Infection +MRSA, recently started on Levaquin for PNA. Pt poor historian, unable to obtain much history. Main complaint is back pain at this time. On arrival, BP 145/63, HR 81, O2 sat 97% on 10 L Simple Mask. CBC unremarkable. ABG essentially unremarkable. Creatinine 1.93, previously 1.83 on 06/10/2018. BNP 300. CXR with bilateral lung consolidation, possible pulmonary edema with small bilateral pleural effusions. S/p Lasix in ER. PNA: CXR w/ bilateral consolidations, w/ associated respiratory distress and hypoxia -Continue with oxygen via facemask or nasal cannula to keep sats greater than 90. -Continue with CPAP as needed -Change duo nebs to every 8, continue as needed as well -We will check swab for influenza, urine for Legionella Infectious disease has been consulted, case has been discussed with Dr. Bazan. Continue with Zithromax, Zyvox and cefepime. Patient likely has component of sleep apnea Continue with CPAP as needed Will need sleep study as outpatient Pleural Effusions: CXR w/ small bilateral pleural effusions, images reviewed, likely related to underlying infection, BNP 300, s/p Lasix in ER Has been drinking p.o. fluids, will place on 1200 cc fluid restriction Echo 06/03/18 w/ mildly impaired LV function. -We will give extra dose of Lasix 20 mg p.o. At this time we will not put on a daily dose as creatinine is elevated. Monitor intake and output Right foot with MRSA infection, heel ulceration X-ray right foot-destructive changes at fifth and fourth metatarsal head. -Appreciate podiatry input, continue with wound care per their recommendations. Betadine and dry sterile dressing. Per podiatry, patient likely has osteomyelitis, has exposed bone to both heels Wound care input appreciated, recommendations noted Obesity Will order a bariatric bed JOSE: Creatinine 1.93, now 1.74 Monitor renal function Avoid nephrotoxic agents Type 2 diabetes Continue with Accu-Cheks before meals and at bedtime -Diabetic diet -Blood sugars trending low, 60s-70s, decrease Levemir to 10 units subcu twice daily Hypertension -Continue carvedilol and hydralazine Hyperlipidemia Continue Lipitor -Depression Continue duloxetine Peripheral neuropathy Continue gabapentin GERD Continue protonix BPH -Continue Flomax Heparin for DVT prophylaxis Protonix for GI prophylaxis Repeat labs in the morning Code Status: FULL CODE Discussed Condition With: RN AND PT AND CM Discharge Planning: ONCE IMPROVED WILL GO BACK TO SNF
--- NOTE | 2018-08-08 12:28 | P.PNPOD ---
Subjective Interval history: X-rays reviewed. Will order MRI as there is bony erosions noted to fifth metatarsal as well as fourth metatarsal. ABIs ordered as well. Will sign out care to Dr. Ca. Please continue IV antibiotics and daily dressing changes. Physical Exam Vital signs: Vital Signs 08/07/18 16:00 08/07/18 19:13 08/07/18 19:14 Temperature 98.1 F Pulse Rate 81 81 Respiratory Rate 23 22 Blood Pressure 138/62 Pulse Oximetry 93 L 93 L 08/07/18 20:00 08/08/18 00:00 08/08/18 02:45 Temperature 97.2 F L 97.1 F L Pulse Rate 72 82 Respiratory Rate 20 20 Blood Pressure 136/75 137/61 Pulse Oximetry 92 L 93 L 98 08/08/18 03:53 08/08/18 04:00 08/08/18 08:00 Temperature 97.1 F L 97.2 F L Pulse Rate 80 72 72 Respiratory Rate 19 20 18 Blood Pressure 137/61 136/61 Pulse Oximetry 93 L 92 L 08/08/18 11:47 Temperature Pulse Rate 72 Respiratory Rate 18 Blood Pressure Pulse Oximetry 94 L Intake & Output 08/07/18 08/08/18 08/08/18 18:59 06:59 18:59 Intake Total 1600 / 1600 820 / 820 Balance 1600 / 1600 820 / 820 Weight 173.2 kg Intake: IV 640 / 640 820 / 820 Maxipime Inj 1,000 MG In NS Inj 100 / 100 215 / 215 100 ML @ 200 mls/hr IV.SIG Q8H [facility] Rx#:[id number] Zyvox 600 mg Premix 300 ML @ 605 / 605 300 mls/hr IV.SIG Q12H [facility] Rx#: [id number] Vancomycin Inj 2,000 MG In NS 540 / 540 Inj 500 ML @ 270 mls/hr IV.SIG ONCE ONE Rx#:[id number] Oral 960 / 960 Other: # Voids 1 # Incontinent Voids 4 Medications and Allergies Active Medications: Active Medications Acetaminophen (Tylenol) 650 mg PO Q4H PRN PRN Reason: Temp > 100.4 Al Hydroxide/Mg Hydroxide (Milk Of Magnesia Liq) 30 ml PO Q12H PRN PRN Reason: Mild Constipation Albuterol (Duoneb Neb (Prn)) 1 ampul NEB Q4HR NEB PRN PRN Reason: SOB/WHEEZING Albuterol (Duoneb Neb (Filomena)) 1 ampul NEB Q8HR ALT NEB [facility] Last Admin: 08/08/18 11:45 Dose: 1 ampul Amlodipine Besylate (Norvasc) 5 mg PO DAILY [facility] Last Admin: 08/08/18 09:51 Dose: 5 mg Aspirin (Aspirin) 325 mg PO DAILY [facility] Last Admin: 08/08/18 09:51 Dose: 325 mg Atorvastatin Calcium (Lipitor) 20 mg PO HS [facility] Last Admin: 08/07/18 22:36 Dose: 20 mg Azithromycin (Zithromax) 500 mg PO DAILY [facility] Last Admin: 08/08/18 09:51 Dose: 500 mg Bisacodyl (Dulcolax Supp) 10 mg RECTAL DAILY PRN PRN Reason: SEVERE CONSITIPATION Carvedilol (Coreg) 3.125 mg PO BID [facility] Last Admin: 08/08/18 09:51 Dose: 3.125 mg Dextrose (D50w Vial) 50 ml IV.PUSH UNSCH PRN PRN Reason: PER HYPOGLYCEMIA PROTOCOL Duloxetine HCl (Cymbalta) 30 mg PO DAILY [facility] Last Admin: 08/08/18 09:51 Dose: 30 mg Finasteride (Proscar) 5 mg PO DAILY@1800 [facility] Last Admin: 08/07/18 18:04 Dose: 5 mg Gabapentin (Neurontin) 300 mg PO Q6HR [facility] Last Admin: 08/08/18 06:05 Dose: 300 mg Glucagon (Glucagon Inj) 1 mg OTHER PRN PRN PRN Reason: for Hypoglycemia Protocol Guaifenesin (Mucinex Er) 600 mg PO BID [facility] Last Admin: 08/08/18 09:51 Dose: 600 mg Heparin Sodium (Porcine) (Heparin Inj) 5,000 units SQ Q12H [facility] Last Admin: 08/08/18 09:51 Dose: 5,000 units Hydralazine HCl (Apresoline) 50 mg PO TID [facility] Last Admin: 08/08/18 09:51 Dose: 50 mg Linezolid (Zyvox 600 Mg Premix) 300 mls @ 300 mls/hr IV.SIG Q12H [facility] Last Infusion: 08/08/18 04:40 Dose: Infused Cefepime HCl 1,000 mg/ Sodium (Chloride) 100 mls @ 200 mls/hr IV.SIG Q8H [facility] Last Infusion: 08/08/18 06:50 Dose: Infused Insulin Aspart (Novolog Insulin Correctional Sugar Inj) 0 unit SQ ACHS [facility]; Protocol Last Admin: 08/08/18 09:51 Dose: Not Given Insulin Detemir (Levemir Inj) 10 unit SQ BID [facility] Last Admin: 08/08/18 09:52 Dose: 10 unit Lactulose (Lactulose Liq) 30 ml PO DAILY PRN PRN Reason: SEVERE CONSITIPATION Morphine Sulfate (Morphine Inj) 2 mg IV.PUSH Q4H PRN PRN Reason: PAIN 6-10 Last Admin: 08/06/18 04:43 Dose: 2 mg Ondansetron HCl (Zofran Inj) 4 mg IV.PUSH Q6H PRN PRN Reason: NAUSEA OR VOMITING Pantoprazole Sodium (Protonix) 40 mg PO DAILY [facility] Last Admin: 08/08/18 09:51 Dose: 40 mg Senna/Docusate Sodium (Isabella-Colace) 1 tab PO BID [facility] Last Admin: 08/08/18 11:50 Dose: 1 tab Sennosides (Senokot) 17.2 mg PO Q12H PRN PRN Reason: Moderate Constipation Tamsulosin HCl (Flomax) 0.4 mg PO BID [facility] Last Admin: 08/08/18 09:50 Dose: 0.4 mg Allergies Allergy/AdvReac Type Severity Reaction Status Date / Time No Known Allergies Allergy Verified 08/06/18 01:24 Home Medications Medication Instructions Recorded Confirmed Type aspirin 325 mg PO DAILY 06/01/18 06/01/18 History atorvastatin [Lipitor] 20 mg PO HS 06/01/18 08/06/18 History duloxetine [Cymbalta] 30 mg PO DAILY 06/01/18 06/01/18 History dutasteride [Avodart] 0.5 mg PO QPM 06/01/18 06/01/18 History gabapentin 300 mg PO Q6HR 06/01/18 06/01/18 History pantoprazole [Protonix] 40 mg PO DAILY 06/01/18 06/01/18 History tamsulosin [Flomax] 0.4 mg PO BID 06/01/18 08/06/18 History Results - Labs CBC & Chem 7: 08/08/18 05:40 08/08/18 05:40 Laboratory Results - last 24 hr 08/07/18 08/07/18 08/07/18 05:04 12:21 20:03 WBC RBC Hgb Hct MCV MCH MCHC RDW Plt Count MPV Sodium Potassium Chloride Carbon Dioxide Anion Gap BUN Creatinine Estimated GFR POC Glucose 141 H 208 H Random Glucose Hemoglobin A1c 8.3 H Calcium Random Vancomycin 08/08/18 08/08/18 08/08/18 05:40 05:40 09:05 WBC 7.3 RBC 3.00 L Hgb 8.5 L Hct 26.2 L MCV 87.3 MCH 28.3 MCHC 32.4 RDW 16.6 Plt Count 154 MPV 8.0 Sodium 141 Potassium 4.3 Chloride 107 Carbon Dioxide 26.5 Anion Gap 8 BUN 75 H Creatinine 1.55 H Estimated GFR 44 L POC Glucose 153 H Random Glucose 166 H Hemoglobin A1c Calcium 7.8 L Random Vancomycin 19.8 Microbiology 08/07/18 22:45 Blood - Line Aerobic Blood Culture - Preliminary No growth in 1 day 08/07/18 22:45 Blood - Line Anaerobic Blood Culture - Preliminary No growth in 1 day 08/07/18 16:40 Blood - Peripheral Aerobic Blood Culture - Preliminary No growth in 1 day 08/07/18 16:40 Blood - Peripheral Anaerobic Blood Culture - Preliminary No growth in 1 day 08/07/18 16:45 Blood - Peripheral Aerobic Blood Culture - Preliminary No growth in 1 day 08/07/18 16:45 Blood - Peripheral Anaerobic Blood Culture - Preliminary No growth in 1 day 08/07/18 17:25 Urine - Clean Catch Urine Legionella Antigen - Final Presumptive negative for Legionella pneumophila serogroup 1 antigen in urine, suggesting no recent or recurrent infection. Infection due to Legionella cannot be ruled out since other serogroups and species may cause disease, antigen may not be present in urine in early infection, and the level of antigen present in the urine may be below the detection limit of the test. 08/07/18 15:30 Nasal Wash Influenza Types A,B Antigen - Final Negative for FLU A and B antigen Infection due to influenza A or B cannot be ruled out since the antigen present in the sample may be below the detection limit of the test. - Imaging Impressions Venous Doppler Study 08/07/18 00:00 CONCLUSION: No evidence of right upper extremity DVT.
--- NOTE | 2018-08-08 15:53 | MR ---
EXAM DATE: 08/08/2018 2:10 PM EDT AGE/SEX: 73 years / Male INDICATIONS: Osteomyelitis. Destructive changes fourth and fifth metatarsal head on xray. CLINICAL DATA: This is the patient's initial encounter. Patient reports that signs and symptoms have been present for 1 day and indicates a pain score of 0/10. MEDICAL/SURGICAL HISTORY: Hypertension. Diabetes mellitus type II. Coronary artery stent. COMPARISON: No prior exams available for comparison. TECHNIQUE: Multiplanar, multisequence MRI examination was performed without contrast. FINDINGS: There is abnormal marrow in the fifth metatarsal sparing the proximal 1 cm of the metatarsal base. Th e abnormal marrow is present in the fifth digit as well. There is abnormal marrow in the mid to distal two thirds of the fourth metatarsal with abnormal marro w signal in the fourth ray. There is extensive soft tissue edema present. This soft tissue edema exte nds over the dorsum of foot down to the mid metatarsals. Intense edema is seen between the third and fourth and fourth and fifth metatarsals. There is no defined abscess. The soft tissue edema does not extend to the tarsometatarsal joint. Lack of contrast would make detection of a subtle abscess CONCLUSION: 1. Findings consistent with marrow edema and osteomyelitis involving the fourth and fifth metatarsal s. The base of the fifth is spared. Proximal one third of the fourth is spared. Electronically signed by: Jose Elias Mao MD 08/08/2018 3:52 PM EDT
[2018-08-08] MEDS: Finasteride 5 MG Tablet PO SCH (19:03)
[2018-08-09] MEDS: Gabapentin 300 MG Capsule PO SCH ×4 (06:21→23:25)
[2018-08-09 07:14] LABS: Baso % (Auto) 0.3 % (0.0-2.0); Eos # (Auto) 0.4 th/mm3 (0.0-0.4); Hematocrit 26.1 % (39.0-51.0); Hemoglobin 8.4 gm/dL (13.0-17.0); Lymph # (Auto) 1.2 th/mm3 (1.0-4.8); Lymph % (Auto) 15.2 % (9.0-44.0); Mean Corpuscular HGB Conc 32.4 % (32.0-36.0); Mean Corpuscular Hemoglobin 28.3 pg (27.0-34.0); Mean Corpuscular Volume 87.2 fL (80.0-100.0); Mono # (Auto) 0.6 th/mm3 (0.0-0.9); Mono % (Auto) 7.6 % (0.0-8.0); Neut # (Auto) 5.8 th/mm3 (1.8-7.7); Neut % (Auto) 71.9 % (16.0-70.0); Platelet Count 149 th/mm3 (150-450); Red Blood Count 2.99 mil/mm3 (4.50-5.90); Red Cell Distribution Width 16.5 % (11.6-17.2); White Blood Count 8.1 th/mm3 (4.0-11.0)
[2018-08-09 07:43] LABS: Albumin 1.8 g/dL (3.4-5.0); Anion Gap 9 meq/L (5-15); Aspartate Aminotransferase 7 U/L (15-37); Blood Urea Nitrogen 66 mg/dL (7-18); Carbon Dioxide 24.5 meq/L (21.0-32.0); Chloride 109 meq/L (98-107); Glomerular Filtration Rate 49 mL/min (>89); Glucose,Random 184 mg/dL (74-106); Magnesium 2.5 mg/dL (1.5-2.5); Potassium 4.1 meq/L (3.5-5.1); Sodium 142 meq/L (136-145)
[2018-08-09 08:02] LABS: Alanine Aminotransferase 17 U/L (12-78); Alkaline Phosphatase 66 U/L (45-117); Calcium 7.9 mg/dL (8.5-10.1); Phosphorus 3.6 mg/dL (2.5-4.9)
--- NOTE | 2018-08-09 08:42 | P.PNPOD ---
Subjective Interval history: No events overnight, MRI completed yesterday. Appears Doppler still pending for arterial circulation of the right lower extremity Physical Exam Vital signs: Vital Signs 08/08/18 11:47 08/08/18 12:00 08/08/18 16:00 Temperature 97.3 F L 97.1 F L Pulse Rate 72 85 83 Respiratory Rate 18 18 18 Blood Pressure 124/59 L 136/63 Pulse Oximetry 94 L 92 L 86 L 08/08/18 19:50 08/08/18 20:00 08/08/18 20:15 Temperature 97.3 F L Pulse Rate 83 72 Respiratory Rate 18 20 Blood Pressure 123/63 Pulse Oximetry 92 L 92 L 08/08/18 23:42 08/09/18 00:00 08/09/18 03:42 Temperature 97.2 F L Pulse Rate 61 67 Respiratory Rate 19 20 Blood Pressure 140/65 Pulse Oximetry 93 L 97 93 L 08/09/18 04:00 08/09/18 06:00 Temperature 97.3 F L Pulse Rate 70 Respiratory Rate 21 Blood Pressure 120/58 L 110/56 L Pulse Oximetry 99 Intake & Output 08/08/18 08/09/18 08/09/18 18:59 06:59 18:59 Intake Total 560 / 560 1320 / 1320 110 / 110 Balance 560 / 560 1320 / 1320 110 / 110 Weight 173.2 kg Intake: IV 840 / 840 110 / 110 Maxipime Inj 1,000 MG In NS Inj 210 / 210 110 / 110 100 ML @ 200 mls/hr IV.SIG Q8H [facility] Rx#:[id number] Zyvox 600 mg Premix 300 ML @ 630 / 630 300 mls/hr IV.SIG Q12H [facility] Rx#: [id number] Oral 560 / 560 480 / 480 Other: # Voids 1 # Incontinent Voids 4 Narrative: Lower extremity physical exam: Vascular: Dorsalis pedis 2/4, posterior tibial nonpalpable secondary to edema. Capillary refill time within normal limits to digits X5 bilateral foot. Edema present right foot Neuro: Gross sensation intact to bilateral lower extremity. Pinpoint sensation decrease no hyperalgesia noted to bilateral lower extremity Dermatology: Right posterior heel ulceration noted with eschar base with surrounding erythema and edema. No purulent drainage upon compression. Plantar sub-met 4 5 ulceration noted with exposed fourth and fifth metatarsal heads necrotic fibrotic tissue noted surrounding erythema and edema. No purulent drainage upon compression. No fluctuance or crepitance noted to right foot. Musculoskeletal: No tenderness to palpation noted. GENERAL: Patient oxygen mask SKIN: Right foot wounds noted HEAD: Atraumatic. EYES: Pupils equal round and reactive. ENT: Airway patent. NECK: Trachea midline. RESPIRATORY: Patient on oxygen mask MUSCULOSKELETAL:. Negative Homans sign bilaterally. NEUROLOGICAL: Awake and alert. Medications and Allergies Active Medications: Active Medications Acetaminophen (Tylenol) 650 mg PO Q4H PRN PRN Reason: Temp > 100.4 Al Hydroxide/Mg Hydroxide (Milk Of Rasheed Olmedo) 30 ml PO Q12H PRN PRN Reason: Mild Constipation Albuterol (Duoneb Neb (Prn)) 1 ampul NEB Q4HR NEB PRN PRN Reason: SOB/WHEEZING Albuterol (Duoneb Neb (Filomena)) 1 ampul NEB Q8HR ALT NEB [facility] Last Admin: 08/08/18 23:42 Dose: 1 ampul Amlodipine Besylate (Norvasc) 5 mg PO DAILY [facility] Last Admin: 08/08/18 09:51 Dose: 5 mg Aspirin (Aspirin) 325 mg PO DAILY [facility] Last Admin: 08/08/18 09:51 Dose: 325 mg Atorvastatin Calcium (Lipitor) 20 mg PO HS [facility] Last Admin: 08/08/18 21:53 Dose: 20 mg Azithromycin (Zithromax) 500 mg PO DAILY [facility] Last Admin: 08/08/18 09:51 Dose: 500 mg Bisacodyl (Dulcolax Supp) 10 mg RECTAL DAILY PRN PRN Reason: SEVERE CONSITIPATION Carvedilol (Coreg) 3.125 mg PO BID [facility] Last Admin: 08/08/18 21:53 Dose: 3.125 mg Dextrose (D50w Vial) 50 ml IV.PUSH UNSCH PRN PRN Reason: PER HYPOGLYCEMIA PROTOCOL Duloxetine HCl (Cymbalta) 30 mg PO DAILY [facility] Last Admin: 08/08/18 09:51 Dose: 30 mg Finasteride (Proscar) 5 mg PO DAILY@1800 [facility] Last Admin: 08/08/18 19:03 Dose: 5 mg Gabapentin (Neurontin) 300 mg PO Q6HR [facility] Last Admin: 08/09/18 06:21 Dose: 300 mg Glucagon (Glucagon Inj) 1 mg OTHER PRN PRN PRN Reason: for Hypoglycemia Protocol Guaifenesin (Mucinex Er) 600 mg PO BID [facility] Last Admin: 08/08/18 21:53 Dose: 600 mg Heparin Sodium (Porcine) (Heparin Inj) 5,000 units SQ Q12H [facility] Last Admin: 08/08/18 21:54 Dose: 5,000 units Hydralazine HCl (Apresoline) 50 mg PO TID [facility] Last Admin: 08/08/18 19:02 Dose: 50 mg Linezolid (Zyvox 600 Mg Premix) 300 mls @ 300 mls/hr IV.SIG Q12H [facility] Last Infusion: 08/09/18 04:45 Dose: Infused Cefepime HCl 1,000 mg/ Sodium (Chloride) 100 mls @ 200 mls/hr IV.SIG Q8H [facility] Last Infusion: 08/09/18 07:21 Dose: Infused Insulin Aspart (Novolog Insulin Correctional Sugar Inj) 0 unit SQ ACHS [facility]; Protocol Last Admin: 08/08/18 21:54 Dose: 5 unit Insulin Detemir (Levemir Inj) 10 unit SQ BID [facility] Last Admin: 08/08/18 21:55 Dose: 10 unit Lactulose (Lactulose Liq) 30 ml PO DAILY PRN PRN Reason: SEVERE CONSITIPATION Morphine Sulfate (Morphine Inj) 2 mg IV.PUSH Q4H PRN PRN Reason: PAIN 6-10 Last Admin: 08/06/18 04:43 Dose: 2 mg Ondansetron HCl (Zofran Inj) 4 mg IV.PUSH Q6H PRN PRN Reason: NAUSEA OR VOMITING Pantoprazole Sodium (Protonix) 40 mg PO DAILY [facility] Last Admin: 08/08/18 09:51 Dose: 40 mg Senna/Docusate Sodium (Isabella-Colace) 1 tab PO BID [facility] Last Admin: 08/08/18 21:54 Dose: 1 tab Sennosides (Senokot) 17.2 mg PO Q12H PRN PRN Reason: Moderate Constipation Tamsulosin HCl (Flomax) 0.4 mg PO BID [facility] Last Admin: 08/08/18 21:53 Dose: 0.4 mg Allergies Allergy/AdvReac Type Severity Reaction Status Date / Time No Known Allergies Allergy Verified 08/06/18 01:24 Home Medications Medication Instructions Recorded Confirmed Type aspirin 325 mg PO DAILY 06/01/18 06/01/18 History atorvastatin [Lipitor] 20 mg PO HS 06/01/18 08/06/18 History duloxetine [Cymbalta] 30 mg PO DAILY 06/01/18 06/01/18 History dutasteride [Avodart] 0.5 mg PO QPM 06/01/18 06/01/18 History gabapentin 300 mg PO Q6HR 06/01/18 06/01/18 History pantoprazole [Protonix] 40 mg PO DAILY 06/01/18 06/01/18 History tamsulosin [Flomax] 0.4 mg PO BID 06/01/18 08/06/18 History Results - Labs CBC & Chem 7: 08/09/18 06:49 08/09/18 06:49 Laboratory Results - last 24 hr 08/08/18 08/08/18 08/08/18 09:05 13:27 20:02 WBC RBC Hgb Hct MCV MCH MCHC RDW Plt Count MPV Neut % (Auto) Lymph % (Auto) [place] % (Auto) Eos % (Auto) Baso % (Auto) Neut # (Auto) Lymph # (Auto) [place] # (Auto) Eos # (Auto) Baso # (Auto) WBC Differential Differential Comment Sodium Potassium Chloride Carbon Dioxide Anion Gap BUN Creatinine Estimated GFR POC Glucose 153 H 174 H 285 H Random Glucose Calcium Phosphorus Magnesium Total Bilirubin AST ALT Alkaline Phosphatase Total Protein Albumin 08/09/18 08/09/18 08/09/18 06:49 06:49 08:17 WBC 8.1 RBC 2.99 L Hgb 8.4 L Hct 26.1 L MCV 87.2 MCH 28.3 MCHC 32.4 RDW 16.5 Plt Count 149 L MPV 8.0 Neut % (Auto) 71.9 H Lymph % (Auto) 15.2 [place] % (Auto) 7.6 Eos % (Auto) 5.0 H Baso % (Auto) 0.3 Neut # (Auto) 5.8 Lymph # (Auto) 1.2 [place] # (Auto) 0.6 Eos # (Auto) 0.4 Baso # (Auto) 0.0 WBC Differential . Differential Comment Auto diff final Sodium 142 Potassium 4.1 Chloride 109 H Carbon Dioxide 24.5 Anion Gap 9 BUN 66 H Creatinine 1.42 H Estimated GFR 49 L POC Glucose 181 H Random Glucose 184 H Calcium 7.9 L Phosphorus 3.6 Magnesium 2.5 Total Bilirubin 0.4 AST 7 L ALT 17 Alkaline Phosphatase 66 Total Protein 7.0 Albumin 1.8 L Microbiology 08/07/18 22:45 Blood - Line Aerobic Blood Culture - Preliminary No growth in 1 day 08/07/18 22:45 Blood - Line Anaerobic Blood Culture - Preliminary No growth in 1 day 08/07/18 16:40 Blood - Peripheral Aerobic Blood Culture - Preliminary No growth in 1 day 08/07/18 16:40 Blood - Peripheral Anaerobic Blood Culture - Preliminary No growth in 1 day 08/07/18 16:45 Blood - Peripheral Aerobic Blood Culture - Preliminary No growth in 1 day 08/07/18 16:45 Blood - Peripheral Anaerobic Blood Culture - Preliminary No growth in 1 day 08/07/18 17:25 Urine - Clean Catch Urine Legionella Antigen - Final Presumptive negative for Legionella pneumophila serogroup 1 antigen in urine, suggesting no recent or recurrent infection. Infection due to Legionella cannot be ruled out since other serogroups and species may cause disease, antigen may not be present in urine in early infection, and the level of antigen present in the urine may be below the detection limit of the test. - Imaging Impressions Foot MRI 08/08/18 00:00 CONCLUSION: 1. Findings consistent with marrow edema and osteomyelitis involving the fourth and fifth metatarsals. The base of the fifth is spared. Proximal one third of the fourth is spared. Upon reviewing the MRI it is absent regarding the hindfoot. Therefore there is no comment regarding the calcaneus. I spoke with the metallographic technician and they are to repeat the study focusing on the calcaneus. Assessment and Plan - Assessment (1) Osteomyelitis of ankle and foot Code(s): M86.9 - Osteomyelitis, unspecified Status: Acute - Plan High likelihood the patient needs a partial distal lateral forefoot amputation involving the removal of the fourth and fifth digit as well as the fourth and fifth metatarsal heads. However if calcaneal osteomyelitis is noted in a large portion of the heel, limb salvage efforts may be cut short and the patient may be better off with a below the knee amputation due to the nonambulatory status. I will advised pending the repeat MRI focusing on the hindfoot and I am waiting for the arterial Doppler results. Possible surgery tomorrow however at this point I am unsure.
[2018-08-09] MEDS: Azithromycin 250 MG Tablet PO SCH (09:00)
[2018-08-09] MEDS: Insulin Detemir Inj 1,000 UNIT/10 ML Vial SQ SCH ×2 (09:00→20:58)
[2018-08-09] MEDS: Heparin - SQ 10,000 UNITS/ML Vial SQ SCH ×2 (09:00→20:48)
[2018-08-09] MEDS: amLODIPine 5 MG Tablet PO SCH (09:01)
[2018-08-09] MEDS: hydrALAZINE 50 MG Tablet PO SCH ×3 (09:01→19:26)
[2018-08-09] MEDS: guaiFENesin 600 MG ER Tablet PO SCH ×2 (09:01→20:48)
[2018-08-09] MEDS: Insulin NovoLOG Aspart Correctional Sugar Inj SQ SCH ×4 (09:01→20:59)
[2018-08-09] MEDS: Aspirin 325 MG Tablet PO SCH (09:01)
[2018-08-09] MEDS: Senna/Docusate Sodium 8.6/50 MG Tablet PO SCH ×2 (09:01→20:48)
--- NOTE | 2018-08-09 11:09 | P.PNID ---
Subjective Remarks: Mr. Meléndez is a 73-year-old male with past medical history significant for morbid obesity, peripheral neuropathy, diabetes mellitus, hyperlipidemia and hypertension. Patient is a long-term resident of [facility] in reportedly is not very active and is mostly bedbound. Patient was brought into the emergency room by EMS from [facility] for shortness of breath and hypoxia. Per report patient had an episode of shortness of breath with O2 sats of 70% on room air however patient refused transport to the ER. Thereafter patient had another episode of shortness of breath and hypoxia. By this time patient had been treated with Zyvox for lower extremity wound for positive MRSA as well as recently started on Levaquin for pneumonia at the nursing home facility. Patient has a PICC line in place and has been treated with IV antibiotics. Nurse taking care of the patient informs me that currently there is no blood draws from the PICC line but medications can be infused although with some difficulty. Due to concern for thrombosis at the site of PICC line I have ordered a Doppler which is pending at the present time. On arrival his blood pressure was 145 x 63, heart rate of 81, O2 sats 97% on 10 L simple mask. His blood gas was unremarkable. His creatinine was 1.93 and previously in May 2018 was 1.83. His chest x-ray showed bilateral lung consolidation possible element of pulmonary edema as well as small bilateral pleural effusion. He received 1 dose of Lasix in the ER. Infectious diseases consulted for evaluation and pneumonia as well as osteomyelitis. Overnight events reviewed. No fevers, hypothermia. No rash No diarrhea Antibiotics: Cefepime IV Azithro Zyvox IV Lines: Lines ok Past Medical History: reviewed Allergies/Adverse Reactions: Allergies No Known Allergies Allergy (Verified 08/06/18 01:24) Objective Vital Signs 08/08/18 11:47 08/08/18 12:00 08/08/18 16:00 Temperature 97.3 F L 97.1 F L Pulse Rate 72 85 83 Respiratory Rate 18 18 18 Blood Pressure 124/59 L 136/63 Pulse Oximetry 94 L 92 L 86 L 08/08/18 19:50 08/08/18 20:00 08/08/18 20:15 Temperature 97.3 F L Pulse Rate 83 72 Respiratory Rate 18 20 Blood Pressure 123/63 Pulse Oximetry 92 L 92 L 08/08/18 23:42 08/09/18 00:00 08/09/18 03:42 Temperature 97.2 F L Pulse Rate 61 67 Respiratory Rate 19 20 Blood Pressure 140/65 Pulse Oximetry 93 L 97 93 L 08/09/18 04:00 08/09/18 06:00 08/09/18 08:00 Temperature 97.3 F L 97.3 F L Pulse Rate 70 67 Respiratory Rate 21 18 Blood Pressure 120/58 L 110/56 L 127/60 Pulse Oximetry 99 92 L 08/09/18 09:15 08/09/18 10:45 Temperature Pulse Rate Respiratory Rate Blood Pressure Pulse Oximetry 94 L 93 L Intake & Output 08/08/18 08/09/18 08/09/18 18:59 06:59 18:59 Intake Total 560 / 560 1320 / 1320 110 / 110 Balance 560 / 560 1320 / 1320 110 / 110 Weight 173.2 kg Intake: IV 840 / 840 110 / 110 Maxipime Inj 1,000 MG In NS Inj 210 / 210 110 / 110 100 ML @ 200 mls/hr IV.SIG Q8H [facility] Rx#:[id number] Zyvox 600 mg Premix 300 ML @ 630 / 630 300 mls/hr IV.SIG Q12H [facility] Rx#: [id number] Oral 560 / 560 480 / 480 Other: # Voids 1 # Incontinent Voids 4 08/07/18 22:45 Blood - Line Aerobic Blood Culture - Preliminary No growth in 2 days 08/07/18 22:45 Blood - Line Anaerobic Blood Culture - Preliminary No growth in 2 days 08/07/18 16:40 Blood - Peripheral Aerobic Blood Culture - Preliminary No growth in 2 days 08/07/18 16:40 Blood - Peripheral Anaerobic Blood Culture - Preliminary No growth in 2 days 08/07/18 16:45 Blood - Peripheral Aerobic Blood Culture - Preliminary No growth in 2 days 08/07/18 16:45 Blood - Peripheral Anaerobic Blood Culture - Preliminary No growth in 2 days 08/07/18 17:25 Urine - Clean Catch Urine Legionella Antigen - Final Presumptive negative for Legionella pneumophila serogroup 1 antigen in urine, suggesting no recent or recurrent infection. Infection due to Legionella cannot be ruled out since other serogroups and species may cause disease, antigen may not be present in urine in early infection, and the level of antigen present in the urine may be below the detection limit of the test. 08/07/18 15:30 Nasal Wash Influenza Types A,B Antigen - Final Negative for FLU A and B antigen Infection due to influenza A or B cannot be ruled out since the antigen present in the sample may be below the detection limit of the test. Lab - Hematology Results 08/08/18 08/09/18 05:40 06:49 WBC 7.3 8.1 RBC 3.00 L 2.99 L Hgb 8.5 L 8.4 L Hct 26.2 L 26.1 L MCV 87.3 87.2 MCH 28.3 28.3 MCHC 32.4 32.4 RDW 16.6 16.5 Plt Count 154 149 L MPV 8.0 8.0 Neut % (Auto) 71.9 H Lymph % (Auto) 15.2 [place] % (Auto) 7.6 Eos % (Auto) 5.0 H Baso % (Auto) 0.3 Neut # (Auto) 5.8 Lymph # (Auto) 1.2 [place] # (Auto) 0.6 Eos # (Auto) 0.4 Baso # (Auto) 0.0 WBC Differential . Differential Comment Auto diff final Lab - Chemistry Results 08/07/18 08/07/18 08/07/18 05:04 12:21 20:03 Sodium Potassium Chloride Carbon Dioxide Anion Gap BUN Creatinine Estimated GFR POC Glucose 141 H 208 H Random Glucose Hemoglobin A1c 8.3 H Calcium Phosphorus Magnesium Total Bilirubin AST ALT Alkaline Phosphatase Total Protein Albumin 08/08/18 08/08/18 08/08/18 05:40 09:05 13:27 Sodium 141 Potassium 4.3 Chloride 107 Carbon Dioxide 26.5 Anion Gap 8 BUN 75 H Creatinine 1.55 H Estimated GFR 44 L POC Glucose 153 H 174 H Random Glucose 166 H Hemoglobin A1c Calcium 7.8 L Phosphorus Magnesium Total Bilirubin AST ALT Alkaline Phosphatase Total Protein Albumin 08/08/18 08/09/18 08/09/18 20:02 06:49 08:17 Sodium 142 Potassium 4.1 Chloride 109 H Carbon Dioxide 24.5 Anion Gap 9 BUN 66 H Creatinine 1.42 H Estimated GFR 49 L POC Glucose 285 H 181 H Random Glucose 184 H Hemoglobin A1c Calcium 7.9 L Phosphorus 3.6 Magnesium 2.5 Total Bilirubin 0.4 AST 7 L ALT 17 Alkaline Phosphatase 66 Total Protein 7.0 Albumin 1.8 L Imaging: ITS Impressions Foot X-Ray 08/06/18 00:00 CONCLUSION: Destructive changes at the fifth metatarsal head and possibly the fourth metatarsal head. Chest X-Ray 08/06/18 02:23 CONCLUSION: Bilateral lung consolidation. Differential diagnosis includes pulmonary edema and infection with probable small bilateral pleural effusions. Venous Doppler Study 08/07/18 00:00 CONCLUSION: No evidence of right upper extremity DVT. Foot MRI 08/08/18 00:00 CONCLUSION: 1. Findings consistent with marrow edema and osteomyelitis involving the fourth and fifth metatarsals. The base of the fifth is spared. Proximal one third of the fourth is spared. Physical Exam: GENERAL: Morbid Obesity, not in acute distress SKIN: Cool and dry, no generalized rash HEAD: Atraumatic. Normocephalic. No temporal or scalp tenderness. EYES: Pupils equal round and reactive. Scleral icterus. No injection or drainage. No petechia ENT: Nothing abnormal detected NECK: Trachea midline. Supple, nontender, no meningeal signs. CARDIOVASCULAR: HS audible. RESPIRATORY: Clear to auscultation bilaterally. GASTROINTESTINAL: Abdomen soft nontender. MUSCULOSKELETAL: Right LE with 2nd,3rd, 4th digit plantar aspect ulceration down to bone. NEUROLOGICAL: Alert oriented 3. Nonfocal. Psych cooperative IV line sites ok. Assessment and Plan - Plan Possible Health care associated pneumonia Osteomyelitis of right little toe PICC line in place r/o infection, thrombus. Morbid Obesity Sleep apnea based on clinical picture. Recs: Continue Cefepime increase dose to q8hrs Continue Zyvox IV Continue Azithro oral Follow cultures Follow clinical course.
--- NOTE | 2018-08-09 13:00 | P.PNIM ---
Subjective Interval history: This is a 73-year-old male with PMH of HTN, Hyperlipidemia, DM, Peripheral Neuropathy and Morbid Obesity who was brought to the ER by EMS from [facility] for SOB and hypoxia. Per report, pt had episode of SOB w/ O2 sat 70% on RA, however pt refused transport to the ER. Meagan, pt w/ recurrent episode of SOB and hypoxia. Has been on Zyvox for LE Wound Infection +MRSA, recently started on Levaquin for PNA. Pt poor historian, unable to obtain much history. Main complaint is back pain at this time. On arrival, BP 145/63, HR 81, O2 sat 97% on 10 L Simple Mask. CBC unremarkable. ABG essentially unremarkable. Creatinine 1.93, previously 1.83 on 06/10/2018. BNP 300. CXR with bilateral lung consolidation, possible pulmonary edema with small bilateral pleural effusions. S/p Lasix in ER. 10-12 CONTINUE ANTIBIOTICS HX OF DM PT AND OT MED REC AM LABS DW RN AND PT AND CM SPUTUM IS MUCINEX 08-07 Follow-up for pulmonary edema, bilateral pleural effusions, pneumonia: Patient seen and examined. No shortness of breath at rest, on oxygen at 6 L. Cannot keep oxygen mask in place as it is too small. Has a cough, nonproductive. No fever. Indicates he has not been very mobile, has not walked in many years. No fever. Per nursing, drinking a lot of water, incontinent of urine. 08-08 DW PODIATRY SEEN BY ID -SUSPECTED OSTEOMYELITIS CONTINUE ANTIBIOTICS PER ID AM LABS PT AND OT 08-09 CAME BACK VERY SOB ON 15LITERS OF OXYGEN WILL PLACE ON BIPAP PATIENT IS A MOUTH BREATHER AND WAS ONLY ON A NASAL CANNULA CONSULT PULMONARY ANTIBIOTICS PER ID, ZYVOX, CEFEPIME AND AZITHROMYCIN IMPROVED ON BIPAP AWAIT PODIATRY DECISION ON WHAT TYPE OF AMPUTATION NEEDS FOR HIS RIGHT FOOT AM LABS Physical Exam Vital signs: Vital Signs 08/08/18 16:00 08/08/18 19:50 08/08/18 20:00 Temperature 97.1 F L 97.3 F L Pulse Rate 83 83 72 Respiratory Rate 18 18 20 Blood Pressure 136/63 123/63 Pulse Oximetry 86 L 92 L 08/08/18 20:15 08/08/18 23:42 08/09/18 00:00 Temperature 97.2 F L Pulse Rate 61 67 Respiratory Rate 19 20 Blood Pressure 140/65 Pulse Oximetry 92 L 93 L 97 08/09/18 03:42 08/09/18 04:00 08/09/18 06:00 Temperature 97.3 F L Pulse Rate 70 Respiratory Rate 21 Blood Pressure 120/58 L 110/56 L Pulse Oximetry 93 L 99 08/09/18 08:00 08/09/18 09:15 08/09/18 10:45 Temperature 97.3 F L Pulse Rate 67 Respiratory Rate 18 Blood Pressure 127/60 Pulse Oximetry 92 L 94 L 93 L 08/09/18 11:34 Temperature Pulse Rate 60 Respiratory Rate 17 Blood Pressure Pulse Oximetry Intake & Output 08/08/18 08/09/18 08/09/18 18:59 06:59 18:59 Intake Total 560 / 560 1320 / 1320 110 / 110 Balance 560 / 560 1320 / 1320 110 / 110 Weight 173.2 kg Intake: IV 840 / 840 110 / 110 Maxipime Inj 1,000 MG In NS Inj 210 / 210 110 / 110 100 ML @ 200 mls/hr IV.SIG Q8H SHAHEED Rx#:[id number] Zyvox 600 mg Premix 300 ML @ 630 / 630 300 mls/hr IV.SIG Q12H SHAHEED Rx#: [id number] Oral 560 / 560 480 / 480 Other: # Voids 1 # Incontinent Voids 4 Narrative: GENERAL: Morbid Obesity, not in acute distress- ON BIPAP NOW SKIN: Cool and dry, no generalized rash HEAD: Atraumatic. Normocephalic. No temporal or scalp tenderness. EYES: Pupils equal round and reactive. Scleral icterus. No injection or drainage. No petechia ENT: Nothing abnormal detected NECK: Trachea midline. Supple, nontender, no meningeal signs. CARDIOVASCULAR: HS audible. RESPIRATORY: Clear to auscultation bilaterally. DECREASED BS BL GASTROINTESTINAL: Abdomen soft nontender. OBESE MUSCULOSKELETAL: Right LE with 2nd,3rd, 4th digit plantar aspect ulceration down to bone. NEUROLOGICAL: Alert oriented 3. Nonfocal. Psych cooperative IV line sites ok. Results - Labs CBC & Chem 7: 08/09/18 06:49 08/09/18 06:49 Laboratory Results - last 24 hr 08/08/18 08/08/18 08/09/18 13:27 20:02 06:49 WBC 8.1 RBC 2.99 L Hgb 8.4 L Hct 26.1 L MCV 87.2 MCH 28.3 MCHC 32.4 RDW 16.5 Plt Count 149 L MPV 8.0 Neut % (Auto) 71.9 H Lymph % (Auto) 15.2 [place] % (Auto) 7.6 Eos % (Auto) 5.0 H Baso % (Auto) 0.3 Neut # (Auto) 5.8 Lymph # (Auto) 1.2 [place] # (Auto) 0.6 Eos # (Auto) 0.4 Baso # (Auto) 0.0 WBC Differential . Differential Comment Auto diff final Sodium Potassium Chloride Carbon Dioxide Anion Gap BUN Creatinine Estimated GFR POC Glucose 174 H 285 H Random Glucose Calcium Phosphorus Magnesium Total Bilirubin AST ALT Alkaline Phosphatase Total Protein Albumin 08/09/18 08/09/18 08/09/18 06:49 08:17 12:36 WBC RBC Hgb Hct MCV MCH MCHC RDW Plt Count MPV Neut % (Auto) Lymph % (Auto) [place] % (Auto) Eos % (Auto) Baso % (Auto) Neut # (Auto) Lymph # (Auto) [place] # (Auto) Eos # (Auto) Baso # (Auto) WBC Differential Differential Comment Sodium 142 Potassium 4.1 Chloride 109 H Carbon Dioxide 24.5 Anion Gap 9 BUN 66 H Creatinine 1.42 H Estimated GFR 49 L POC Glucose 181 H 182 H Random Glucose 184 H Calcium 7.9 L Phosphorus 3.6 Magnesium 2.5 Total Bilirubin 0.4 AST 7 L ALT 17 Alkaline Phosphatase 66 Total Protein 7.0 Albumin 1.8 L Microbiology 08/07/18 22:45 Blood - Line Aerobic Blood Culture - Preliminary No growth in 2 days 08/07/18 22:45 Blood - Line Anaerobic Blood Culture - Preliminary No growth in 2 days 08/07/18 16:40 Blood - Peripheral Aerobic Blood Culture - Preliminary No growth in 2 days 08/07/18 16:40 Blood - Peripheral Anaerobic Blood Culture - Preliminary No growth in 2 days 08/07/18 16:45 Blood - Peripheral Aerobic Blood Culture - Preliminary No growth in 2 days 08/07/18 16:45 Blood - Peripheral Anaerobic Blood Culture - Preliminary No growth in 2 days 08/07/18 17:25 Urine - Clean Catch Urine Legionella Antigen - Final Presumptive negative for Legionella pneumophila serogroup 1 antigen in urine, suggesting no recent or recurrent infection. Infection due to Legionella cannot be ruled out since other serogroups and species may cause disease, antigen may not be present in urine in early infection, and the level of antigen present in the urine may be below the detection limit of the test. - Imaging Impressions Foot MRI 08/08/18 00:00 CONCLUSION: 1. Findings consistent with marrow edema and osteomyelitis involving the fourth and fifth metatarsals. The base of the fifth is spared. Proximal one third of the fourth is spared. Assessment and Plan - Assessment (1) PNA (pneumonia) Code(s): J18.9 - Pneumonia, unspecified organism Status: Acute (2) Pleural effusion Code(s): J90 - Pleural effusion, not elsewhere classified Status: Acute (3) JOSE (acute kidney injury) Code(s): N17.9 - Acute kidney failure, unspecified Status: Acute - Plan Assessment/plan 73-year-old male with PMH of HTN, Hyperlipidemia, DM, Peripheral Neuropathy and Morbid Obesity who was brought to the ER by EMS from [facility] for SOB and hypoxia. Per report, pt had episode of SOB w/ O2 sat 70% on RA, however pt refused transport to the ER. Patient presented with recurrent shortness of breath and hypoxia. Has been on Zyvox for LE Wound Infection +MRSA, recently started on Levaquin for PNA. Pt poor historian, unable to obtain much history. Main complaint is back pain at this time. On arrival, BP 145/63, HR 81, O2 sat 97% on 10 L Simple Mask. CBC unremarkable. ABG essentially unremarkable. Creatinine 1.93, previously 1.83 on 06/10/2018. BNP 300. CXR with bilateral lung consolidation, possible pulmonary edema with small bilateral pleural effusions. S/p Lasix in ER. PNA: CXR w/ bilateral consolidations, w/ associated respiratory distress and hypoxia--HCAP -Continue with oxygen via facemask or nasal cannula to keep sats greater than 90. -Continue with CPAP as needed -Change duo nebs to every 8, continue as needed as well -We will check swab for influenza, urine for Legionella Infectious disease has been consulted, case has been discussed with Dr. Bazan. Continue with Zithromax, Zyvox and cefepime. Patient likely has component of sleep apnea Continue with CPAP as needed Will need sleep study as outpatient Pleural Effusions: CXR w/ small bilateral pleural effusions, images reviewed, likely related to underlying infection, BNP 300, s/p Lasix in ER Has been drinking p.o. fluids, will place on 1200 cc fluid restriction Echo 06/03/18 w/ mildly impaired LV function. -We will give extra dose of Lasix 20 mg p.o. At this time we will not put on a daily dose as creatinine is elevated. Monitor intake and output Right foot with MRSA infection, heel ulceration X-ray right foot-destructive changes at fifth and fourth metatarsal head. -Appreciate podiatry input, continue with wound care per their recommendations. Betadine and dry sterile dressing. Per podiatry, patient likely has osteomyelitis, has exposed bone to both heels Wound care input appreciated, recommendations noted WILL PROBABLY NEED AMPUTATION Obesity Will order a bariatric bed JOSE: Creatinine 1.93, now 1.74 Monitor renal function Avoid nephrotoxic agents Type 2 diabetes Continue with Accu-Cheks before meals and at bedtime -Diabetic diet -Blood sugars trending low, 60s-70s, decrease Levemir to 10 units subcu twice daily Hypertension -Continue carvedilol and hydralazine Hyperlipidemia Continue Lipitor -Depression Continue duloxetine Peripheral neuropathy Continue gabapentin GERD Continue protonix BPH -Continue Flomax Heparin for DVT prophylaxis Protonix for GI prophylaxis Repeat labs in the morning Code Status: FULL CODE Discussed Condition With: RN AND PT AND CM AND ID Discharge Planning: ONCE IMPROVED WILL GO BACK TO SNF
--- NOTE | 2018-08-09 14:12 | XR ---
EXAM DATE: 08/09/2018 12:00 AM EDT AGE/SEX: 73 years / Male INDICATIONS: Pneumonia; respiratory difficulty. CLINICAL DATA: This is the patient's subsequent encounter. Patient reports that signs and symptoms h ave been present for 3 days and indicates a pain score of 0/10. MEDICAL/SURGICAL HISTORY: . Gastroesophageal reflux disease. Hypercholesterolemia. Hypertension . Diabetes. None. COMPARISON: C, CHEST 1V SINGLE AP, 08/06/2018. . FINDINGS: Worsening diffuse severe bilateral airspace consolidation. Right PICC line tip is obscured. Cardiac s ilhouette is enlarged. Bony thorax is intact. CONCLUSION: 1. Worsening diffuse severe bilateral airspace consolidation consistent with ARDS versus severe pulm onary edema. Electronically signed by: Philip Wilder MD 08/09/2018 2:10 PM EDT
--- NOTE | 2018-08-09 15:55 | ECHRPT ---
EXAM DATE: 08/09/2018 12:00 AM EDT AGE/SEX: 73 years / Male INDICATIONS: Right heel ulceration CLINICAL DATA: This is the patient's initial encounter. Patient reports that signs and symptoms have been present for 1 month and indicates a pain score of 4/10. MEDICAL/SURGICAL HISTORY: . depression, diabetes mellitus, gerd, hyperlipidemia, hypertension, neuropathy, obesity . COMPARISON: No prior exams available for comparison. TECHNIQUE: Four-cuff ankle and brachial pressures were obtained. Pulse cuff waveform tracings of the ankles were recorded, and ankle-brachial indices were calculated. PRESSURES (mmHg): Brachial (arm) : RIGHT: IV SITE, LEFT: 111 Ankle : RIGHT: 111, LEFT: 124 ALESSIA : RIGHT: 1.00, LEFT: 1.12 TBI : RIGHT: 0.56, LEFT: 0.49 FINDINGS: Pulsed-Cuff Waveform: There are good upstroke and a dicrotic downstroke of the tracings. Other: None. CONCLUSION: 1. Moderate reduction of the toe brachial indices bilaterally suggesting microangiopathic disease. 2. ABIs within the normal range bilaterally. Electronically signed by: Shabbir Puente MD 08/09/2018 3:54 PM EDT
[2018-08-09 18:34] LABS: ABG Base Excess -1.2 mmol/L (-2-2); ABG PCO2 50 mmHg (38-42); ABG PO2 53 mmHG (61-120)
[2018-08-09] MEDS: Finasteride 5 MG Tablet PO SCH (19:26)
[2018-08-09 20:36] LABS: Creatine Kinase 28 U/L (39-308)
--- NOTE | 2018-08-09 21:03 | MB ---
cc: Lewis Lewis MD, Camille MD DATE: 08/09/2018 REQUESTING PHYSICIAN: Emily Mckeon MD REASON FOR CONSULTATION: Respiratory failure. HISTORY OF PRESENT ILLNESS: Mr. Meléndez is a 73-year-old white male with a history of hypertension, hyperlipidemia and diabetes mellitus with peripheral neuropathy. He has been bed bound for at least 1 year and he lives in [facility]. He was brought from there with worsening of his shortness of breath and he was hypoxic. He had a workup done in the hospital. He was on the floor today. He was getting worse, requiring more oxygen and he was transferred to the intensive care unit. He workup shows CBC with a WBC of 8.1, hemoglobin 8.4, hematocrit 26.1, MCV 87, platelet count 149. Sodium 142, potassium 4.1 . The patient was seen by infectious disease, Dr. Bazan, and he is on antibiotics. Currently, the patient is on BiPAP. He opens his eyes, very lethargic and barely answers his questions. PAST MEDICAL HISTORY: Significant for a history of hypertension, diabetes mellitus, osteomyelitis of the fifth toe of the right foot, neuropathy, morbid obesity, sleep apnea. MEDICATIONS: He is currently takin. Nebulizer treatments with DuoNeb 4 times a day. 2. Aspirin 325 mg a day. 3. Lipitor 20 mg a day. 4. Zithromax 500 mg a day. 5. Coreg 3.125 mg twice a day. 6. Cefepime 1 gram every 8 hours. 7. Cymbalta 30 mg a day. 8. Finasteride 5 mg a day. 9. Lasix 40 mg IV push q.12 hours. 10. Neurontin 300 mg q.6 hours. 11. Heparin 5000 q.12 hours. 12. Mucinex 600 mg twice a day. 13. Apresoline 50 mg 3 times a day. 14. Levemir insulin 10 units. 15. Lactulose 30 mL as needed. 16. Zyvox 600 mg q.12 hours. 17. Morphine for pain. 18. Protonix 40 mg a day. 19. Potassium supplement. 20. Flomax 0.4 mg a day. ALLERGIES: NO KNOWN DRUG ALLERGIES. SOCIAL HISTORY: He is . He has no history of smoking. He is retired. FAMILY HISTORY: He has 3 children. REVIEW OF SYSTEMS: The patient is mostly bed bound. He lives in a [place] [facility]. He has neuropathy. No seizure, stroke or sz. He denies any malignancy. PHYSICAL EXAMINATION: GENERAL: Morbidly obese male mildly to moderately short of breath. VITAL SIGNS: Blood pressure 115/56, heart rate 60, respirations 17, temperature 97.3. HEENT: Pupils are equal and reactive to light. NECK: Supple. No JVD noted. CHEST: He has rales on both sides. CARDIOVASCULAR: S1, S2 normal. ABDOMEN: Obese, nontender. Bowel sounds are present. EXTREMITIES: 1+ edema and his right foot is covered in a dressing. IMPRESSION: 1. Respiratory failure. 2. Hypoxia. 3. Morbid obesity. 4. Likely sleep apnea. 5. Osteomyelitis. 6. Pneumonia. 7. Pulmonary edema. 8. Renal insufficiency. PLAN: The patient is being diuresed. Monitor his electrolytes. Continue with BiPAP. He is currently on 45% and maintaining good oxygen saturations. We will continue antibiotics per ID recommendations. Continue aerosol treatments. Subcutaneous heparin for DVT prophylaxis. Further treatment will depend upon the course in the hospital. Thank you, Dr. Emily Mckeon, for this consult. MD JEFFERSON Perez/[email or web address]/ , 06:28 PM , 06:39 PM MTDD
--- NOTE | 2018-08-09 22:30 | P.CONCC ---
History of Present Illness Primary Care Provider: UNKNOWN Chief Complaint: Right foot ulceration History of Present Illness: 73-year-old male with past medical history significant for morbid obesity, peripheral neuropathy, diabetes mellitus, hyperlipidemia and hypertension. Patient is a long-term resident of [facility] in reportedly is not very active and is mostly bedbound. Patient was brought into the emergency room by EMS from [facility] for shortness of breath and hypoxia. Per report patient had an episode of shortness of breath with O2 sats of 70% on room air however patient refused transport to the ER. Thereafter patient had another episode of shortness of breath and hypoxia. By this time patient had been treated with Zyvox for lower extremity wound for positive MRSA as well as recently started on Levaquin for pneumonia at the long term facility. Patient has a PICC line in place and has been treated with IV antibiotics. On arrival his blood pressure was 145/63, heart rate of 81, O2 sats 97% on 10 L simple mask. His blood gas was unremarkable. His creatinine was 1.93 and previously in May 2018 was 1.83. His chest x-ray showed bilateral lung consolidation possible element of pulmonary edema as well as small bilateral pleural effusion. On 08/09 patient became more hypoxemic again requiring the placement on the BiPAP ventilator and transferred to ICU. Critical care services were consulted for management of respiratory failure. Review of Systems unobtainable due to mental condition, other PMFSH - History History Provided By: Patient - Medical History Medical History: Medical History (Last Reviewed 08/06/18 @ 14:39 by Funmi Pierce) Obesity Depression Diabetes Diabetes GERD (gastroesophageal reflux disease) HTN (hypertension) High cholesterol Neuropathy - Tobacco History Second Hand Smoke Exposure: No Tobacco Use In Past 30 Days: No Smoking Status: Former smoker Tobacco Type: Cigarettes - Alcohol History How Often Do You Have a Drink Containing Alcohol: Never - Substance Use History Substance History: No History of Abuse - Immunization History Tetanus Immunization: Unsure Hx Influenza Vaccine This Season: No Medications and Allergies Active Medications: Active Medications Acetaminophen (Tylenol) 650 mg PO Q4H PRN PRN Reason: Temp > 100.4 Al Hydroxide/Mg Hydroxide (Milk Of Rasheed Liq) 30 ml PO Q12H PRN PRN Reason: Mild Constipation Albuterol (Duoneb Neb (Prn)) 1 ampul NEB Q4HR NEB PRN PRN Reason: SOB/WHEEZING Albuterol (Duoneb Neb (Filomena)) 1 ampul NEB Q8HR ALT NEB COUNTS INCLUDE 234 BEDS AT THE [facility] Last Admin: 08/09/18 19:54 Dose: 1 ampul Amlodipine Besylate (Norvasc) 5 mg PO DAILY COUNTS INCLUDE 234 BEDS AT THE [facility] Last Admin: 08/09/18 09:01 Dose: 5 mg Aspirin (Aspirin) 325 mg PO DAILY COUNTS INCLUDE 234 BEDS AT THE [facility] Last Admin: 08/09/18 09:01 Dose: 325 mg Atorvastatin Calcium (Lipitor) 20 mg PO HS COUNTS INCLUDE 234 BEDS AT THE [facility] Last Admin: 08/09/18 20:48 Dose: 20 mg Azithromycin (Zithromax) 500 mg PO DAILY COUNTS INCLUDE 234 BEDS AT THE [facility] Last Admin: 08/09/18 09:00 Dose: 500 mg Bisacodyl (Dulcolax Supp) 10 mg RECTAL DAILY PRN PRN Reason: SEVERE CONSITIPATION Carvedilol (Coreg) 3.125 mg PO BID COUNTS INCLUDE 234 BEDS AT THE [facility] Last Admin: 08/09/18 22:26 Dose: Not Given Dextrose (D50w Vial) 50 ml IV.PUSH UNSCH PRN PRN Reason: PER HYPOGLYCEMIA PROTOCOL Duloxetine HCl (Cymbalta) 30 mg PO DAILY COUNTS INCLUDE 234 BEDS AT THE [facility] Last Admin: 08/09/18 09:00 Dose: 30 mg Finasteride (Proscar) 5 mg PO DAILY@1800 COUNTS INCLUDE 234 BEDS AT THE [facility] Last Admin: 08/09/18 19:26 Dose: 5 mg Furosemide (Lasix Inj) 40 mg IV.PUSH BID@0900,1800 COUNTS INCLUDE 234 BEDS AT THE [facility] Last Admin: 08/09/18 19:17 Dose: 40 mg Gabapentin (Neurontin) 300 mg PO Q6HR COUNTS INCLUDE 234 BEDS AT THE [facility] Last Admin: 08/09/18 19:26 Dose: 300 mg Glucagon (Glucagon Inj) 1 mg OTHER PRN PRN PRN Reason: for Hypoglycemia Protocol Guaifenesin (Mucinex Er) 600 mg PO BID COUNTS INCLUDE 234 BEDS AT THE [facility] Last Admin: 08/09/18 20:48 Dose: 600 mg Heparin Sodium (Porcine) (Heparin Inj) 5,000 units SQ Q12H COUNTS INCLUDE 234 BEDS AT THE [facility] Last Admin: 08/09/18 20:48 Dose: 5,000 units Hydralazine HCl (Apresoline) 50 mg PO TID COUNTS INCLUDE 234 BEDS AT THE [facility] Last Admin: 08/09/18 19:26 Dose: 50 mg Linezolid (Zyvox 600 Mg Premix) 300 mls @ 300 mls/hr IV.SIG Q12H COUNTS INCLUDE 234 BEDS AT THE [facility] Last Infusion: 08/09/18 17:12 Dose: Infused Cefepime HCl 1,000 mg/ Sodium (Chloride) 100 mls @ 200 mls/hr IV.SIG Q8H COUNTS INCLUDE 234 BEDS AT THE [facility] Last Infusion: 08/09/18 16:42 Dose: Infused Insulin Aspart (Novolog Insulin Correctional Sugar Inj) 0 unit SQ ACHS COUNTS INCLUDE 234 BEDS AT THE [facility]; Protocol Last Admin: 08/09/18 20:59 Dose: 3 unit Insulin Detemir (Levemir Inj) 10 unit SQ BID COUNTS INCLUDE 234 BEDS AT THE [facility] Last Admin: 08/09/18 20:58 Dose: 10 unit Lactulose (Lactulose Liq) 30 ml PO DAILY PRN PRN Reason: SEVERE CONSITIPATION Morphine Sulfate (Morphine Inj) 2 mg IV.PUSH Q4H PRN PRN Reason: PAIN 6-10 Last Admin: 08/06/18 04:43 Dose: 2 mg Ondansetron HCl (Zofran Inj) 4 mg IV.PUSH Q6H PRN PRN Reason: NAUSEA OR VOMITING Pantoprazole Sodium (Protonix) 40 mg PO DAILY COUNTS INCLUDE 234 BEDS AT THE [facility] Last Admin: 08/09/18 09:01 Dose: 40 mg Potassium Chloride (K-Dur) 20 meq PO BID COUNTS INCLUDE 234 BEDS AT THE [facility] Last Admin: 08/09/18 20:47 Dose: 20 meq Senna/Docusate Sodium (Isabella-Colace) 1 tab PO BID COUNTS INCLUDE 234 BEDS AT THE [facility] Last Admin: 08/09/18 20:48 Dose: Not Given Sennosides (Senokot) 17.2 mg PO Q12H PRN PRN Reason: Moderate Constipation Tamsulosin HCl (Flomax) 0.4 mg PO BID COUNTS INCLUDE 234 BEDS AT THE [facility] Last Admin: 08/09/18 20:47 Dose: 0.4 mg Allergies Allergy/AdvReac Type Severity Reaction Status Date / Time No Known Allergies Allergy Verified 08/06/18 01:24 Home Medications Medication Instructions Recorded Confirmed Type aspirin 325 mg PO DAILY 06/01/18 06/01/18 History atorvastatin [Lipitor] 20 mg PO HS 06/01/18 08/06/18 History duloxetine [Cymbalta] 30 mg PO DAILY 06/01/18 06/01/18 History dutasteride [Avodart] 0.5 mg PO QPM 06/01/18 06/01/18 History gabapentin 300 mg PO Q6HR 06/01/18 06/01/18 History pantoprazole [Protonix] 40 mg PO DAILY 06/01/18 06/01/18 History tamsulosin [Flomax] 0.4 mg PO BID 06/01/18 08/06/18 History Physical Exam Vital signs: Vital Signs 08/08/18 23:42 08/09/18 00:00 08/09/18 03:42 Temperature 97.2 F L Pulse Rate 61 67 Respiratory Rate 19 20 Blood Pressure 140/65 Pulse Oximetry 93 L 97 93 L 08/09/18 04:00 08/09/18 06:00 08/09/18 08:00 Temperature 97.3 F L 97.3 F L Pulse Rate 70 51 L Respiratory Rate 21 18 Blood Pressure 120/58 L 110/56 L 127/60 Pulse Oximetry 99 92 L 08/09/18 09:15 08/09/18 10:45 08/09/18 11:34 Temperature Pulse Rate 60 Respiratory Rate 17 Blood Pressure Pulse Oximetry 94 L 93 L 08/09/18 12:00 08/09/18 15:44 08/09/18 16:00 Temperature 97.4 F L 97.3 F L Pulse Rate 71 65 Respiratory Rate 18 17 Blood Pressure 138/64 115/56 L Pulse Oximetry 90 L 94 L 94 L 08/09/18 17:43 08/09/18 18:00 08/09/18 19:00 Temperature 97.5 F L Pulse Rate 59 L 63 Respiratory Rate 22 16 Blood Pressure 123/59 L 130/60 Pulse Oximetry 96 96 98 08/09/18 19:54 08/09/18 20:00 08/09/18 21:00 Temperature 97.5 F L Pulse Rate 76 74 75 Respiratory Rate 20 19 23 Blood Pressure 124/58 L 137/61 Pulse Oximetry 93 L 100 92 L Intake & Output 08/09/18 08/09/18 08/10/18 06:59 18:59 06:59 Intake Total 1320 / 1320 510 / 510 Balance 1320 / 1320 510 / 510 Weight 173.2 kg Intake: IV 840 / 840 510 / 510 Maxipime Inj 1,000 MG In NS Inj 210 / 210 210 / 210 100 ML @ 200 mls/hr IV.SIG Q8H FILOMENA Rx#:[id number] Zyvox 600 mg Premix 300 ML @ 630 / 630 300 / 300 300 mls/hr IV.SIG Q12H FILOMENA Rx#: [id number] Oral 480 / 480 - Constitutional moderate distress, morbidly obese, chronically ill appearing - Routine HEENT Exam Head: Present: normocephalic, atraumatic Eye: Present: PERRL ENT: Present: mucous membranes moist - Routine Neck Exam Present: supple. Absent: JVD, carotid bruit - Routine Respiratory Exam Present: accessory muscle use, rhonchi, crackles. Absent: stridor, wheezes - Routine Cardiovascular Exam Present: RRR, S1, S2 - Routine Abdominal Exam Present: soft, normoactive bowel sounds. Absent: tenderness, distended - Routine Extremities Exam Present: edema. Absent: cyanosis, clubbing Comments: Right LE with 2nd,3rd, 4th digit plantar aspect ulceration down to bone. - Routine Skin Exam Present: intact. Absent: cyanosis - Routine Neurological Exam Present: altered mental status, moving all extremities Septic Shock Reassessment Septic shock perfusion: reassessment completed Assessment and Plan - Assessment and Plan Plan: Respiratory failure -Hospital-acquired pneumonia -Untreated SHEELA -Obesity hypoventilation syndrome -Bilateral Pleural Effusions -Continue BiPAP as needed -O2 to keep sats greater than 90. 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
[2018-08-10] MEDS ORDERED: Chlorhexidine Gluconate 2% 1 Pack (2 Cloths) TOPICAL PRN (01:00)
[2018-08-10] MEDS: Chlorhexidine Gluconate 2% 1 Pack (2 Cloths) TOPICAL SCH (04:26)
[2018-08-10] MEDS: Gabapentin 300 MG Capsule PO SCH ×3 (06:18→17:43)
[2018-08-10 06:49] LABS: Baso % (Auto) 0.6 % (0.0-2.0); Eos # (Auto) 0.4 th/mm3 (0.0-0.4); Eos % (Auto) 4.5 % (0.0-4.0); Hematocrit 26.3 % (39.0-51.0); Hemoglobin 8.6 gm/dL (13.0-17.0); Lymph # (Auto) 1.2 th/mm3 (1.0-4.8); Lymph % (Auto) 15.2 % (9.0-44.0); Mean Corpuscular HGB Conc 32.8 % (32.0-36.0); Mean Corpuscular Hemoglobin 28.5 pg (27.0-34.0); Mean Corpuscular Volume 86.9 fL (80.0-100.0); Mean Platelet Volume 8.3 fL (7.0-11.0); Mono # (Auto) 0.6 th/mm3 (0.0-0.9); Neut % (Auto) 72.7 % (16.0-70.0); Platelet Count 141 th/mm3 (150-450); Red Blood Count 3.02 mil/mm3 (4.50-5.90); Red Cell Distribution Width 16.3 % (11.6-17.2); White Blood Count 8.2 th/mm3 (4.0-11.0)
[2018-08-10 06:55] LABS: INR 1.1 Ratio; Prothrombin Time 11.2 sec (9.8-11.6)
[2018-08-10] MEDS ORDERED: Acetaminophen 325 MG Tablet PO PRN (07:08)
[2018-08-10 07:10] LABS: Anion Gap 9 meq/L (5-15); Aspartate Aminotransferase 5 U/L (15-37); Blood Urea Nitrogen 64 mg/dL (7-18); Calcium 8.5 mg/dL (8.5-10.1); Chloride 108 meq/L (98-107); Glomerular Filtration Rate 45 mL/min (>89); Glucose,Random 165 mg/dL (74-106); Magnesium 2.5 mg/dL (1.5-2.5); Potassium 4.2 meq/L (3.5-5.1); Sodium 142 meq/L (136-145)
[2018-08-10 07:11] LABS: Alanine Aminotransferase 15 U/L (12-78); Phosphorus 3.8 mg/dL (2.5-4.9)
--- NOTE | 2018-08-10 07:12 | P.PNCC ---
Subjective Subjective Remarks/Hospital Course: 73-year-old male with past medical history significant for morbid obesity, peripheral neuropathy, diabetes mellitus, hyperlipidemia and hypertension. Patient is a long-term resident of [facility] in reportedly is not very active and is mostly bedbound. Patient was brought into the emergency room by EMS from [facility] for shortness of breath and hypoxia. Per report patient had an episode of shortness of breath with O2 sats of 70% on room air however patient refused transport to the ER. Thereafter patient had another episode of shortness of breath and hypoxia. By this time patient had been treated with Zyvox for lower extremity wound for positive MRSA as well as recently started on Levaquin for pneumonia at the [facility]. Patient has a PICC line in place and has been treated with IV antibiotics. On arrival his blood pressure was 145/63, heart rate of 81, O2 sats 97% on 10 L simple mask. His blood gas was unremarkable. His creatinine was 1.93 and previously in May 2018 was 1.83. His chest x-ray showed bilateral lung consolidation possible element of pulmonary edema as well as small bilateral pleural effusion. On 08/09 patient became more hypoxemic again requiring the placement on the BiPAP ventilator and transferred to ICU. Critical care services were consulted for management of respiratory failure. SUBJECTIVE: 08/10: Afebrile. Currently on 4 L nasal cannula saturations are 90%. Patient normally wears CPAP/BiPAP at home according to patient. Since seen by Dr. Slim Estevez previous hospitalization. Objective Vital Signs / I&O: Vital Signs 08/09/18 08:00 08/09/18 09:15 08/09/18 10:45 Temperature 97.3 F L Pulse Rate 51 L Respiratory Rate 18 Blood Pressure 127/60 Pulse Oximetry 92 L 94 L 93 L 08/09/18 11:34 08/09/18 12:00 08/09/18 15:44 Temperature 97.4 F L Pulse Rate 60 71 Respiratory Rate 17 18 Blood Pressure 138/64 Pulse Oximetry 90 L 94 L 08/09/18 16:00 08/09/18 17:43 08/09/18 18:00 Temperature 97.3 F L 97.5 F L Pulse Rate 65 59 L Respiratory Rate 17 22 Blood Pressure 115/56 L 123/59 L Pulse Oximetry 94 L 96 96 08/09/18 19:00 08/09/18 19:54 08/09/18 20:00 Temperature 97.5 F L Pulse Rate 63 76 74 Respiratory Rate 16 20 19 Blood Pressure 130/60 124/58 L Pulse Oximetry 98 93 L 100 08/09/18 21:00 08/09/18 22:00 08/09/18 23:00 Temperature Pulse Rate 75 73 73 Respiratory Rate 23 18 18 Blood Pressure 137/61 121/57 L 123/61 Pulse Oximetry 92 L 93 L 94 L 08/10/18 00:00 08/10/18 01:00 08/10/18 01:14 Temperature 97.9 F Pulse Rate 80 76 78 Respiratory Rate 20 18 20 Blood Pressure 131/59 L 120/60 Pulse Oximetry 93 L 91 L 08/10/18 01:22 08/10/18 01:30 08/10/18 02:00 Temperature Pulse Rate 65 Respiratory Rate 15 Blood Pressure 115/55 L Pulse Oximetry 96 96 97 08/10/18 03:00 08/10/18 03:27 08/10/18 04:00 Temperature 98 F Pulse Rate 70 68 65 Respiratory Rate 15 16 14 Blood Pressure 128/60 120/57 L Pulse Oximetry 96 96 100 08/10/18 05:00 08/10/18 06:00 Temperature Pulse Rate 67 75 Respiratory Rate 14 15 Blood Pressure 118/57 L 122/69 Pulse Oximetry 97 95 Intake & Output 08/09/18 08/10/18 08/10/18 18:59 06:59 18:59 Intake Total 510 / 510 500 / 500 Balance 510 / 510 500 / 500 Weight 166.9 kg Intake: IV 510 / 510 500 / 500 Maxipime Inj 1,000 MG In NS Inj 210 / 210 200 / 200 100 ML @ 200 mls/hr IV.SIG Q8H SHAHEED Rx#:[id number] Zyvox 600 mg Premix 300 ML @ 300 / 300 300 / 300 300 mls/hr IV.SIG Q12H SHAHEED Rx#: [id number] Other: # Voids 4 Result Diagrams: 08/10/18 05:35 08/10/18 05:35 Other Results: Microbiology 08/07/18 22:45 Blood - Line Aerobic Blood Culture - Preliminary No growth in 2 days 08/07/18 22:45 Blood - Line Anaerobic Blood Culture - Preliminary No growth in 2 days 08/07/18 16:40 Blood - Peripheral Aerobic Blood Culture - Preliminary No growth in 2 days 08/07/18 16:40 Blood - Peripheral Anaerobic Blood Culture - Preliminary No growth in 2 days 08/07/18 16:45 Blood - Peripheral Aerobic Blood Culture - Preliminary No growth in 2 days 08/07/18 16:45 Blood - Peripheral Anaerobic Blood Culture - Preliminary No growth in 2 days 08/07/18 17:25 Urine - Clean Catch Urine Legionella Antigen - Final Presumptive negative for Legionella pneumophila serogroup 1 antigen in urine, suggesting no recent or recurrent infection. Infection due to Legionella cannot be ruled out since other serogroups and species may cause disease, antigen may not be present in urine in early infection, and the level of antigen present in the urine may be below the detection limit of the test. 08/07/18 15:30 Nasal Wash Influenza Types A,B Antigen - Final Negative for FLU A and B antigen Infection due to influenza A or B cannot be ruled out since the antigen present in the sample may be below the detection limit of the test. Imaging: Foot X-Ray 08/06/18 00:00 CONCLUSION: Destructive changes at the fifth metatarsal head and possibly the fourth metatarsal head. Chest X-Ray 08/06/18 02:23 CONCLUSION: Bilateral lung consolidation. Differential diagnosis includes pulmonary edema and infection with probable small bilateral pleural effusions. Venous Doppler Study 08/07/18 00:00 CONCLUSION: No evidence of right upper extremity DVT. Extremity Arterial Study 08/08/18 00:00 CONCLUSION: 1. Moderate reduction of the toe brachial indices bilaterally suggesting microangiopathic disease. 2. ABIs within the normal range bilaterally. Foot MRI 08/08/18 00:00 CONCLUSION: 1. Findings consistent with marrow edema and osteomyelitis involving the fourth and fifth metatarsals. The base of the fifth is spared. Proximal one third of the fourth is spared. Chest X-Ray 08/09/18 00:00 CONCLUSION: 1. Worsening diffuse severe bilateral airspace consolidation consistent with ARDS versus severe pulmonary edema. Objective Remarks: GENERAL: 73-year-old male currently resting in bed in no acute distress SKIN: Cool and dry HEAD: Atraumatic. Normocephalic. EYES: Pupils equal and round. No scleral icterus. No injection or drainage. ENT: No nasal bleeding or discharge. Mucous membranes pink and moist. NECK: Trachea midline. No JVD. CARDIOVASCULAR: Regular rate and rhythm. S1, S2. No S4. RESPIRATORY: Diminished breath sounds. Few fine crackles appreciated anteriorly. No wheezing GASTROINTESTINAL: Abdomen obese and protuberant. Hypoactive bowel sounds appreciated MUSCULOSKELETAL: Extremities with right lower extremity with destruction of the second/third/fourth digits foot to bone. Currently covered with Juan bandage NEUROLOGICAL: Awake and alert. No obvious cranial nerve deficits. Motor grossly within normal limits. Five out of 5 muscle strength in the arms and legs. Normal speech. Assessment and Plan - Assessment and Plan Plan: Neuro/Psych: Depression Peripheral neuropathy History of right frontal CVA Continue acetaminophen 650 every 6 hours as needed fever Morphine sulfate 2 mg IV every 4 hours as needed pain 6 or 10 Gabapentin 300 mg p.o. every 6 hours peripheral neuropathy Duloxetine 30 mg daily for depression continue CV: Essential hypertension Hyperlipidemia History of non-STEMI Continue amlodipine 5 mg daily, carvedilol 3.5 mg twice daily and hydralazine 50 mg 3 times daily for hypertension Continue atorvastatin 20 mg daily for hyperlipidemia Feeling furosemide 40 mg IV twice daily Last echo 06/12 revealed LVEF - hard to assess but suspect mildly impaired. Resp: OHS Bilateral pleural effusions Patient was on BiPAP overnight 15/5-40%. Currently on nasal cannula 4 L Titrate to keep saturations greater than 90% Incentive spirometry while awake Albuterol/ipratropium aerosols every 6 hours with albuterol aerosols every 2 hours as needed dyspnea Follow-up on chest x-ray in a.m. 08/11. Yesterday's revealed increasing bilateral fluffy infiltrates edema versus ARDS GI: Gastroesophageal reflux disease Hypoalbuminemia ADA diet Pantoprazole for GI prophylaxis/home medication 40 mg daily Docusate sodium/senna 1 tablet twice daily for bowel rhythm. Add polythene glycol 17 g twice daily : BPH Continue tamsulosin 0.4 mg daily for BPH Endo: Diabetes mellitus Currently on sliding scale insulin aspart medium protocol AC/at bedtime Insulin detemir 10 units twice daily TSH was 2.77 Renal: Chronic kidney disease stage II Renal ultrasound scan revealed increased echogenicity to the right kidney A.m. laboratories pending Monitor urine output Accurate I's and O's Heme: Thrombocytopenia Normocytic anemia Monitor CBCs daily. Follow trends. No indication for transfusion of blood products at this time. ID: Likely HCAP OM right foot Continue cefepime, azithromycin and linezolid Followed by infectious disease Cultures negative 08/07 blood cultures x3, urine Legionella and pneumococcal antigens and influenza a and B FEN: Replace electrolytes as clinically indicated Currently on potassium chloride 20 mg twice daily 1 furosemide MSK: Elevated BMI weight loss encouraged MRI foot revealed posterior calcaneus obstruction. Fifth metatarsal head with destruction. Followed by podiatry. Access -Right upper extremity PICC line. Prophylaxis -GI -pantoprazole -DVT -heparin subcu Level 2 follow-up
[2018-08-10 07:13] LABS: Alkaline Phosphatase 67 U/L (45-117); Total Protein 7.1 g/dL (6.4-8.2)
[2018-08-10] MEDS: Heparin - SQ 10,000 UNITS/ML Vial SQ SCH ×2 (08:28→21:01)
[2018-08-10] MEDS: guaiFENesin 600 MG ER Tablet PO SCH ×2 (08:28→21:00)
[2018-08-10] MEDS: Azithromycin 250 MG Tablet PO SCH (08:29)
[2018-08-10] MEDS: Aspirin 325 MG Tablet PO SCH (08:29)
[2018-08-10] MEDS: Polyethylene Glycol 3350 17 GM Packet PO SCH ×2 (08:30→21:01)
[2018-08-10] MEDS: Senna/Docusate Sodium 8.6/50 MG Tablet PO SCH ×2 (08:30→22:48)
[2018-08-10] MEDS: Insulin NovoLOG Aspart Correctional Sugar Inj SQ SCH ×4 (08:31→21:01)
[2018-08-10] MEDS: hydrALAZINE 50 MG Tablet PO SCH ×3 (09:15→17:43)
[2018-08-10] MEDS: Insulin Detemir Inj 1,000 UNIT/10 ML Vial SQ SCH ×2 (09:15→21:01)
[2018-08-10] MEDS: amLODIPine 5 MG Tablet PO SCH (09:15)
--- NOTE | 2018-08-10 13:04 | ECHRPT ---
Indication: short of breath CONCLUSIONS Moderately dilated left ventricle. Mild concentric left ventricular hypertrophy. The left ventricular systolic function is normal with an estimated ejection fraction in the range of 55-60%. The left atrial size is moderately dilated. Mild mitral annular calcification. Focal calcification of the left coronary cusp - cannot exclude vegetation.There is mild tricuspid va lve regurgitation. The estimated pulmonary arterial pressure is 26 mmHg. There is no pericardial effusion. BP: / HR: Rhythm: MEASUREMENTS (Male / Female) Normal Values Technical Quality: 2D ECHO LV Diastolic Diameter PLAX 6.2 cm 4.2 - 5.9 / 3.9 - 5.3 cm LV Systolic Diameter PLAX 4.9 cm IVS Diastolic Thickness 1.3 cm 0.6 - 1.0 / 0.6 - 0.9 cm LVPW Diastolic Thickness 1.6 cm 0.6 - 1.0 / 0.6 - 0.9 cm LV Relative Wall Thickness 0.5 RV Internal Dim ED PLAX 3.1 cm LVOT Diameter 2.2 cm LV Ejection Fraction MOD 4C 60.4 % LV Ejection Fraction 4C AL 64.1 % M-MODE Aortic Root Diameter MM 3.2 cm LA Systolic Diameter MM 5.6 cm LA Ao Ratio MM 1.8 AV Cusp Separation MM 2.4 cm DOPPLER AV Peak Velocity 141.0 cm/s AV Peak Gradient 8.0 mmHg LVOT Peak Velocity 65.2 cm/s LVOT Peak Gradient 1.7 mmHg AV Area Cont Eq pk 1.8 cm Mitral E Point Velocity 135.0 cm/s LV E' Lateral Velocity 9.8 cm/s Mitral E to LV E' Lateral Ratio 13.8 LV E' Septal Velocity 5.1 cm/s Mitral E to LV E' Septal Ratio 26.6 TR Peak Velocity 201.0 cm/s TR Peak Gradient 16.2 mmHg Right Atrial Pressure 10.0 mmHg Pulmonary Artery Systolic Pressu 26.2 mmHg Right Ventricular Systolic Press 26.2 mmHg PV Peak Velocity 124.0 cm/s PV Peak Gradient 6.2 mmHg FINDINGS LEFT VENTRICLE Moderately dilated left ventricle. Mild concentric left ventricular hypertrophy. The left ventricular systolic function is normal with an estimated ejection fraction in the range of 55-60%. RIGHT VENTRICLE Normal right ventricular size and systolic function. LEFT ATRIUM The left atrial size is moderately dilated. RIGHT ATRIUM The right atrial size is normal. ATRIAL SEPTUM Normal atrial septal thickness without atrial level shunting by limited color doppler interrogation. AORTA The aortic root and proximal ascending aorta are normal in size on limited imaging. MITRAL VALVE Mild mitral annular calcification. AORTIC VALVE Trileaflet aortic valve. Focal calcification of the left coronary cusp - cannot exclude vegetation. TRICUSPID VALVE There is mild tricuspid valve regurgitation. The estimated pulmonary arterial pressure is 26 mmHg. PULMONARY VALVE No pulmonary valve regurgitation or stenosis. VESSELS The inferior vena cava is normal in size. PERICARDIUM There is no pericardial effusion. Suhail Pugh MD (Electronically Signed) Final Date:10 August 2018 13:04
--- NOTE | 2018-08-10 13:56 | P.PNID ---
Subjective Remarks: Mr. Meléndez is a 73-year-old male with past medical history significant for morbid obesity, peripheral neuropathy, diabetes mellitus, hyperlipidemia and hypertension. Patient is a long-term resident of [facility] in reportedly is not very active and is mostly bedbound. Patient was brought into the emergency room by EMS from [facility] for shortness of breath and hypoxia. Per report patient had an episode of shortness of breath with O2 sats of 70% on room air however patient refused transport to the ER. Thereafter patient had another episode of shortness of breath and hypoxia. By this time patient had been treated with Zyvox for lower extremity wound for positive MRSA as well as recently started on [facility]. Patient has a PICC line in place and has been treated with IV antibiotics. Nurse taking care of the patient informs me that currently there is no blood draws from the PICC line but medications can be infused although with some difficulty. Due to concern for thrombosis at the site of PICC line I have ordered a Doppler which is pending at the present time. On arrival his blood pressure was 145 x 63, heart rate of 81, O2 sats 97% on 10 L simple mask. His blood gas was unremarkable. His creatinine was 1.93 and previously in May 2018 was 1.83. His chest x-ray showed bilateral lung consolidation possible element of pulmonary edema as well as small bilateral pleural effusion. He received 1 dose of Lasix in the ER. Infectious diseases consulted for evaluation and pneumonia as well as osteomyelitis. Delayed entry Overnight events reviewed. No fevers, hypothermia. No rash No diarrhea Transferred to ICU overnight for resp issues. Was on Bipap almost all day yday. Antibiotics: Cefepime IV Azithro Zyvox IV Lines: Lines ok Past Medical History: reviewed Allergies/Adverse Reactions: Allergies No Known Allergies Allergy (Verified 08/06/18 01:24) Objective Vital Signs 08/09/18 15:44 08/09/18 16:00 08/09/18 17:43 Temperature 97.3 F L Pulse Rate 65 Respiratory Rate 17 Blood Pressure 115/56 L Pulse Oximetry 94 L 94 L 96 08/09/18 18:00 08/09/18 19:00 08/09/18 19:54 Temperature 97.5 F L Pulse Rate 59 L 63 76 Respiratory Rate 22 16 20 Blood Pressure 123/59 L 130/60 Pulse Oximetry 96 98 93 L 08/09/18 20:00 08/09/18 21:00 08/09/18 22:00 Temperature 97.5 F L Pulse Rate 74 75 73 Respiratory Rate 19 23 18 Blood Pressure 124/58 L 137/61 121/57 L Pulse Oximetry 100 92 L 93 L 08/09/18 23:00 08/10/18 00:00 08/10/18 01:00 Temperature 97.9 F Pulse Rate 73 80 76 Respiratory Rate 18 20 18 Blood Pressure 123/61 131/59 L 120/60 Pulse Oximetry 94 L 93 L 91 L 08/10/18 01:14 08/10/18 01:22 08/10/18 01:30 Temperature Pulse Rate 78 Respiratory Rate 20 Blood Pressure Pulse Oximetry 96 96 08/10/18 02:00 08/10/18 03:00 08/10/18 03:27 Temperature Pulse Rate 65 70 68 Respiratory Rate 15 15 16 Blood Pressure 115/55 L 128/60 Pulse Oximetry 97 96 96 08/10/18 04:00 08/10/18 05:00 08/10/18 06:00 Temperature 98 F Pulse Rate 65 67 75 Respiratory Rate 14 14 15 Blood Pressure 120/57 L 118/57 L 122/69 Pulse Oximetry 100 97 95 08/10/18 07:00 08/10/18 07:51 08/10/18 08:00 Temperature 98.2 F Pulse Rate 73 77 Respiratory Rate 15 16 Blood Pressure 125/60 119/56 L Pulse Oximetry 92 L 93 L 95 08/10/18 08:23 08/10/18 09:00 08/10/18 10:00 Temperature Pulse Rate 76 75 70 Respiratory Rate 16 15 15 Blood Pressure 129/63 109/56 L Pulse Oximetry 93 L 94 L 08/10/18 11:00 08/10/18 12:00 Temperature Pulse Rate 78 84 Respiratory Rate 16 15 Blood Pressure 113/59 L 117/58 L Pulse Oximetry 93 L 92 L Intake & Output 08/09/18 08/10/18 08/10/18 18:59 06:59 18:59 Intake Total 510 / 510 500 / 500 Balance 510 / 510 500 / 500 Weight 166.9 kg Intake: IV 510 / 510 500 / 500 Maxipime Inj 1,000 MG In NS Inj 210 / 210 200 / 200 100 ML @ 200 mls/hr IV.SIG Q8H [facility] Rx#:[id number] Zyvox 600 mg Premix 300 ML @ 300 / 300 300 / 300 300 mls/hr IV.SIG Q12H [facility] Rx#: [id number] Other: # Voids 4 08/07/18 22:45 Blood - Line Aerobic Blood Culture - Preliminary No growth in 3 days 08/07/18 22:45 Blood - Line Anaerobic Blood Culture - Preliminary No growth in 3 days 08/07/18 16:40 Blood - Peripheral Aerobic Blood Culture - Preliminary No growth in 3 days 08/07/18 16:40 Blood - Peripheral Anaerobic Blood Culture - Preliminary No growth in 3 days 08/07/18 16:45 Blood - Peripheral Aerobic Blood Culture - Preliminary No growth in 3 days 08/07/18 16:45 Blood - Peripheral Anaerobic Blood Culture - Preliminary No growth in 3 days 08/07/18 17:25 Urine - Clean Catch Urine Legionella Antigen - Final Presumptive negative for Legionella pneumophila serogroup 1 antigen in urine, suggesting no recent or recurrent infection. Infection due to Legionella cannot be ruled out since other serogroups and species may cause disease, antigen may not be present in urine in early infection, and the level of antigen present in the urine may be below the detection limit of the test. 08/07/18 15:30 Nasal Wash Influenza Types A,B Antigen - Final Negative for FLU A and B antigen Infection due to influenza A or B cannot be ruled out since the antigen present in the sample may be below the detection limit of the test. Lab - Hematology Results 08/09/18 08/10/18 06:49 05:35 WBC 8.1 8.2 RBC 2.99 L 3.02 L Hgb 8.4 L 8.6 L Hct 26.1 L 26.3 L MCV 87.2 86.9 MCH 28.3 28.5 MCHC 32.4 32.8 RDW 16.5 16.3 Plt Count 149 L 141 L MPV 8.0 8.3 Neut % (Auto) 71.9 H 72.7 H Lymph % (Auto) 15.2 15.2 [place] % (Auto) 7.6 7.0 Eos % (Auto) 5.0 H 4.5 H Baso % (Auto) 0.3 0.6 Neut # (Auto) 5.8 6.0 Lymph # (Auto) 1.2 1.2 [place] # (Auto) 0.6 0.6 Eos # (Auto) 0.4 0.4 Baso # (Auto) 0.0 0.0 WBC Differential . . Differential Comment Auto diff final Auto diff final Lab - Chemistry Results 08/08/18 08/09/18 08/09/18 20:02 06:49 08:17 Sodium 142 Potassium 4.1 Chloride 109 H Carbon Dioxide 24.5 Anion Gap 9 BUN 66 H Creatinine 1.42 H Estimated GFR 49 L POC Glucose 285 H 181 H Random Glucose 184 H Calcium 7.9 L Phosphorus 3.6 Magnesium 2.5 Total Bilirubin 0.4 AST 7 L ALT 17 Alkaline Phosphatase 66 Total Creatine Kinase Troponin I B-Natriuretic Peptide Total Protein 7.0 Albumin 1.8 L Procalcitonin 08/09/18 08/09/18 08/09/18 12:36 16:21 19:14 Sodium Potassium Chloride Carbon Dioxide Anion Gap BUN Creatinine Estimated GFR POC Glucose 182 H 183 H Random Glucose Calcium Phosphorus Magnesium Total Bilirubin AST ALT Alkaline Phosphatase Total Creatine Kinase 28 L Troponin I Less than 0.02 L B-Natriuretic Peptide Total Protein Albumin Procalcitonin 08/09/18 08/09/18 08/09/18 19:14 19:14 20:44 Sodium Potassium Chloride Carbon Dioxide Anion Gap BUN Creatinine Estimated GFR POC Glucose 220 H Random Glucose Calcium Phosphorus Magnesium Total Bilirubin AST ALT Alkaline Phosphatase Total Creatine Kinase Troponin I B-Natriuretic Peptide 188 H Total Protein Albumin Procalcitonin 0.17 H 08/10/18 08/10/18 08/10/18 05:35 07:35 12:41 Sodium 142 Potassium 4.2 Chloride 108 H Carbon Dioxide 25.0 Anion Gap 9 BUN 64 H Creatinine 1.51 H Estimated GFR 45 L POC Glucose 156 H 146 H Random Glucose 165 H Calcium 8.5 Phosphorus 3.8 Magnesium 2.5 Total Bilirubin 0.4 AST 5 L ALT 15 Alkaline Phosphatase 67 Total Creatine Kinase Troponin I B-Natriuretic Peptide Total Protein 7.1 Albumin 2.0 L Procalcitonin Imaging: ITS Impressions Foot X-Ray 08/06/18 00:00 CONCLUSION: Destructive changes at the fifth metatarsal head and possibly the fourth metatarsal head. Venous Doppler Study 08/07/18 00:00 CONCLUSION: No evidence of right upper extremity DVT. Extremity Arterial Study 08/08/18 00:00 CONCLUSION: 1. Moderate reduction of the toe brachial indices bilaterally suggesting microangiopathic disease. 2. ABIs within the normal range bilaterally. Foot MRI 08/08/18 00:00 CONCLUSION: 1. Findings consistent with marrow edema and osteomyelitis involving the fourth and fifth metatarsals. The base of the fifth is spared. Proximal one third of the fourth is spared. Chest X-Ray 08/09/18 00:00 CONCLUSION: 1. Worsening diffuse severe bilateral airspace consolidation consistent with ARDS versus severe pulmonary edema. Physical Exam: GENERAL: Morbid Obesity, not in acute distress SKIN: Cool and dry, no generalized rash HEAD: Atraumatic. Normocephalic. No temporal or scalp tenderness. EYES: Pupils equal round and reactive. Scleral icterus. No injection or drainage. No petechia ENT: Nothing abnormal detected NECK: Trachea midline. Supple, nontender, no meningeal signs. CARDIOVASCULAR: HS audible. RESPIRATORY: Clear to auscultation bilaterally. GASTROINTESTINAL: Abdomen soft nontender. MUSCULOSKELETAL: Right LE with 2nd,3rd, 4th digit plantar aspect ulceration down to bone. NEUROLOGICAL: Alert oriented 3. Nonfocal. Psych cooperative IV line sites ok. Assessment and Plan - Plan Possible Health care associated pneumonia Osteomyelitis of right foot PICC line in place r/o infection, thrombus. Morbid Obesity Sleep apnea based on clinical picture. Recs: Continue Cefepime increase dose to q8hrs Continue Zyvox IV Continue Azithro oral Follow cultures Follow clinical course. dw patient delfino LAURENT
--- NOTE | 2018-08-10 16:31 | P.PNPOD ---
Subjective Interval history: Patient had difficulty breathing yesterday and this morning however appears to be improved. He still has generalized weakness and appears to be short of breath Physical Exam Vital signs: Vital Signs 08/09/18 17:43 08/09/18 18:00 08/09/18 19:00 Temperature 97.5 F L Pulse Rate 59 L 63 Respiratory Rate 22 16 Blood Pressure 123/59 L 130/60 Pulse Oximetry 96 96 98 08/09/18 19:54 08/09/18 20:00 08/09/18 21:00 Temperature 97.5 F L Pulse Rate 76 74 75 Respiratory Rate 20 19 23 Blood Pressure 124/58 L 137/61 Pulse Oximetry 93 L 100 92 L 08/09/18 22:00 08/09/18 23:00 08/10/18 00:00 Temperature 97.9 F Pulse Rate 73 73 80 Respiratory Rate 18 18 20 Blood Pressure 121/57 L 123/61 131/59 L Pulse Oximetry 93 L 94 L 93 L 08/10/18 01:00 08/10/18 01:14 08/10/18 01:22 Temperature Pulse Rate 76 78 Respiratory Rate 18 20 Blood Pressure 120/60 Pulse Oximetry 91 L 96 08/10/18 01:30 08/10/18 02:00 08/10/18 03:00 Temperature Pulse Rate 65 70 Respiratory Rate 15 15 Blood Pressure 115/55 L 128/60 Pulse Oximetry 96 97 96 08/10/18 03:27 08/10/18 04:00 08/10/18 05:00 Temperature 98 F Pulse Rate 68 65 67 Respiratory Rate 16 14 14 Blood Pressure 120/57 L 118/57 L Pulse Oximetry 96 100 97 08/10/18 06:00 08/10/18 07:00 08/10/18 07:51 Temperature 98.2 F Pulse Rate 75 73 Respiratory Rate 15 15 Blood Pressure 122/69 125/60 Pulse Oximetry 95 92 L 93 L 08/10/18 08:00 08/10/18 08:23 08/10/18 09:00 Temperature Pulse Rate 77 76 75 Respiratory Rate 16 16 15 Blood Pressure 119/56 L 129/63 Pulse Oximetry 95 93 L 08/10/18 10:00 08/10/18 11:00 08/10/18 12:00 Temperature Pulse Rate 70 78 84 Respiratory Rate 15 16 15 Blood Pressure 109/56 L 113/59 L 117/58 L Pulse Oximetry 94 L 93 L 92 L 08/10/18 13:00 08/10/18 14:00 08/10/18 14:54 Temperature Pulse Rate 83 84 83 Respiratory Rate 16 15 16 Blood Pressure 104/59 L 125/61 Pulse Oximetry 94 L 93 L 08/10/18 15:00 08/10/18 16:00 Temperature Pulse Rate 84 84 Respiratory Rate 15 15 Blood Pressure 117/61 111/58 L Pulse Oximetry 93 L 93 L Intake & Output 08/09/18 08/10/18 08/10/18 18:59 06:59 18:59 Intake Total 510 / 510 500 / 500 Balance 510 / 510 500 / 500 Weight 166.9 kg Intake: IV 510 / 510 500 / 500 Maxipime Inj 1,000 MG In NS Inj 210 / 210 200 / 200 100 ML @ 200 mls/hr IV.SIG Q8H [facility] Rx#:[id number] Zyvox 600 mg Premix 300 ML @ 300 / 300 300 / 300 300 mls/hr IV.SIG Q12H [facility] Rx#: [id number] Other: # Voids 4 - Constitutional mild distress, chronically ill appearing - Neurological Alert and oriented x3 - Routine Extremities Exam Comments: Lower extremity physical exam: Vascular: Dorsalis pedis 2/4, posterior tibial nonpalpable secondary to edema. Capillary refill time within normal limits to digits X5 bilateral foot. Edema present right foot Neuro: Gross sensation intact to bilateral lower extremity. Pinpoint sensation decrease no hyperalgesia noted to bilateral lower extremity Dermatology: Right posterior heel ulceration noted with eschar base with surrounding erythema and edema. No purulent drainage upon compression. Plantar sub-met 4 5 ulceration noted with exposed fourth and fifth metatarsal heads necrotic fibrotic tissue noted surrounding erythema and edema. No purulent drainage upon compression. No fluctuance or crepitance noted to right foot. Musculoskeletal: No tenderness to palpation noted. Medications and Allergies Active Medications: Active Medications Acetaminophen (Tylenol) 650 mg PO Q6H PRN PRN Reason: Temp > 100.4 Al Hydroxide/Mg Hydroxide (Milk Of Magnesia Liq) 30 ml PO Q12H PRN PRN Reason: Mild Constipation Albuterol (Albuterol Neb (Prn)) 2.5 mg NEB Q2HR NEB PRN PRN Reason: DYSPNEA Albuterol (Duoneb Neb (Filomena)) 1 ampul NEB Q6HR NEB [facility] Last Admin: 08/10/18 14:52 Dose: 1 ampul Amlodipine Besylate (Norvasc) 5 mg PO DAILY [facility] Last Admin: 08/10/18 09:15 Dose: 5 mg Aspirin (Aspirin) 325 mg PO DAILY [facility] Last Admin: 08/10/18 08:29 Dose: 325 mg Atorvastatin Calcium (Lipitor) 20 mg PO HS [facility] Last Admin: 08/09/18 20:48 Dose: 20 mg Azithromycin (Zithromax) 500 mg PO DAILY [facility] Last Admin: 08/10/18 08:29 Dose: 500 mg Bisacodyl (Dulcolax Supp) 10 mg RECTAL DAILY PRN PRN Reason: SEVERE CONSITIPATION Carvedilol (Coreg) 3.125 mg PO BID [facility] Last Admin: 08/10/18 08:31 Dose: 3.125 mg Chlorhexidine Gluconate (Chlorhexidine 2% Cloth) 3 pack TOPICAL DAILY@0400 [facility] Stop: 08/15/18 03:59 Last Admin: 08/10/18 04:26 Dose: 3 pack Chlorhexidine Gluconate (Chlorhexidine 2% Cloth) 1 pack TOPICAL PRN PRN PRN Reason: FOR HYGIENIC CARE Dextrose (D50w Vial) 50 ml IV.PUSH UNSCH PRN PRN Reason: PER HYPOGLYCEMIA PROTOCOL Duloxetine HCl (Cymbalta) 30 mg PO DAILY [facility] Last Admin: 08/10/18 08:29 Dose: 30 mg Finasteride (Proscar) 5 mg PO DAILY@1800 [facility] Last Admin: 08/09/18 19:26 Dose: 5 mg Furosemide (Lasix Inj) 40 mg IV.PUSH BID@0900,1800 [facility] Last Admin: 08/10/18 09:15 Dose: 40 mg Gabapentin (Neurontin) 300 mg PO Q6HR [facility] Last Admin: 08/10/18 12:15 Dose: 300 mg Glucagon (Glucagon Inj) 1 mg OTHER PRN PRN PRN Reason: for Hypoglycemia Protocol Guaifenesin (Mucinex Er) 600 mg PO BID [facility] Last Admin: 08/10/18 08:28 Dose: 600 mg Heparin Sodium (Porcine) (Heparin Inj) 5,000 units SQ Q12H [facility] Last Admin: 08/10/18 08:28 Dose: 5,000 units Hydralazine HCl (Apresoline) 50 mg PO TID [facility] Last Admin: 08/10/18 12:51 Dose: 50 mg Linezolid (Zyvox 600 Mg Premix) 300 mls @ 300 mls/hr IV.SIG Q12H [facility] Last Admin: 08/10/18 15:18 Dose: 300 mls/hr Cefepime HCl 1,000 mg/ Sodium (Chloride) 100 mls @ 200 mls/hr IV.SIG Q8H [facility] Last Admin: 08/10/18 15:18 Dose: 200 mls/hr Insulin Aspart (Novolog Insulin Correctional Sugar Inj) 0 unit SQ ACHS [facility]; Protocol Last Admin: 08/10/18 12:50 Dose: Not Given Insulin Detemir (Levemir Inj) 10 unit SQ BID [facility] Last Admin: 08/10/18 09:15 Dose: Not Given Lactulose (Lactulose Liq) 30 ml PO DAILY PRN PRN Reason: SEVERE CONSITIPATION Morphine Sulfate (Morphine Inj) 2 mg IV.PUSH Q4H PRN PRN Reason: PAIN 6-10 Last Admin: 08/06/18 04:43 Dose: 2 mg Ondansetron HCl (Zofran Inj) 4 mg IV.PUSH Q6H PRN PRN Reason: NAUSEA OR VOMITING Pantoprazole Sodium (Protonix) 40 mg PO DAILY [facility] Last Admin: 08/10/18 08:30 Dose: 40 mg Polyethylene Glycol (Miralax) 17 gm PO BID [facility] Last Admin: 08/10/18 08:30 Dose: Not Given Potassium Chloride (K-Dur) 20 meq PO BID [facility] Last Admin: 08/10/18 08:29 Dose: 20 meq Senna/Docusate Sodium (Isabella-Colace) 1 tab PO BID [facility] Last Admin: 08/10/18 08:30 Dose: Not Given Sennosides (Senokot) 17.2 mg PO Q12H PRN PRN Reason: Moderate Constipation Tamsulosin HCl (Flomax) 0.4 mg PO BID [facility] Last Admin: 08/10/18 08:29 Dose: 0.4 mg Allergies Allergy/AdvReac Type Severity Reaction Status Date / Time No Known Allergies Allergy Verified 08/06/18 01:24 Home Medications Medication Instructions Recorded Confirmed Type aspirin 325 mg PO DAILY 06/01/18 06/01/18 History atorvastatin [Lipitor] 20 mg PO HS 06/01/18 08/06/18 History duloxetine [Cymbalta] 30 mg PO DAILY 06/01/18 06/01/18 History dutasteride [Avodart] 0.5 mg PO QPM 06/01/18 06/01/18 History gabapentin 300 mg PO Q6HR 06/01/18 06/01/18 History pantoprazole [Protonix] 40 mg PO DAILY 06/01/18 06/01/18 History tamsulosin [Flomax] 0.4 mg PO BID 06/01/18 08/06/18 History Results - Labs CBC & Chem 7: 08/10/18 05:35 08/10/18 05:35 Laboratory Results - last 24 hr 08/09/18 08/09/18 08/09/18 16:21 18:00 18:25 WBC RBC Hgb Hct MCV MCH MCHC RDW Plt Count MPV Neut % (Auto) Lymph % (Auto) [place] % (Auto) Eos % (Auto) Baso % (Auto) Neut # (Auto) Lymph # (Auto) [place] # (Auto) Eos # (Auto) Baso # (Auto) WBC Differential Differential Comment PT INR Puncture Site Left radial Patient Temperature 98.6 O2 Saturation 85 L* ABG pH 7.30 L ABG pCO2 50 H ABG pO2 53 L* ABG HCO3 24 ABG O2 Content 10.4 L ABG Base Excess -1.2 ABG Methemoglobin 1.4 Parker Test Present Hemoglobin 8.6 L Carboxyhemoglobin 1.3 O2 Delivery Device Bipap Vent Setting Inspired O2 45 Critical Value Yes Sodium Potassium Chloride Carbon Dioxide Anion Gap BUN Creatinine Estimated GFR POC Glucose 183 H Random Glucose Calcium Phosphorus Magnesium Total Bilirubin AST ALT Alkaline Phosphatase Total Creatine Kinase Troponin I B-Natriuretic Peptide Total Protein Albumin Procalcitonin Nasal Screen MRSA (PCR) Not detected 08/09/18 08/09/18 08/09/18 19:14 19:14 19:14 WBC RBC Hgb Hct MCV MCH MCHC RDW Plt Count MPV Neut % (Auto) Lymph % (Auto) [place] % (Auto) Eos % (Auto) Baso % (Auto) Neut # (Auto) Lymph # (Auto) [place] # (Auto) Eos # (Auto) Baso # (Auto) WBC Differential Differential Comment PT INR Puncture Site Patient Temperature O2 Saturation ABG pH ABG pCO2 ABG pO2 ABG HCO3 ABG O2 Content ABG Base Excess ABG Methemoglobin Parker Test Hemoglobin Carboxyhemoglobin O2 Delivery Device Vent Setting Inspired O2 Critical Value Sodium Potassium Chloride Carbon Dioxide Anion Gap BUN Creatinine Estimated GFR POC Glucose Random Glucose Calcium Phosphorus Magnesium Total Bilirubin AST ALT Alkaline Phosphatase Total Creatine Kinase 28 L Troponin I Less than 0.02 L B-Natriuretic Peptide 188 H Total Protein Albumin Procalcitonin 0.17 H Nasal Screen MRSA (PCR) 08/09/18 08/10/18 08/10/18 20:44 05:35 05:35 WBC 8.2 RBC 3.02 L Hgb 8.6 L Hct 26.3 L MCV 86.9 MCH 28.5 MCHC 32.8 RDW 16.3 Plt Count 141 L MPV 8.3 Neut % (Auto) 72.7 H Lymph % (Auto) 15.2 [place] % (Auto) 7.0 Eos % (Auto) 4.5 H Baso % (Auto) 0.6 Neut # (Auto) 6.0 Lymph # (Auto) 1.2 [place] # (Auto) 0.6 Eos # (Auto) 0.4 Baso # (Auto) 0.0 WBC Differential . Differential Comment Auto diff final PT 11.2 INR 1.1 Puncture Site Patient Temperature O2 Saturation ABG pH ABG pCO2 ABG pO2 ABG HCO3 ABG O2 Content ABG Base Excess ABG Methemoglobin Parker Test Hemoglobin Carboxyhemoglobin O2 Delivery Device Vent Setting Inspired O2 Critical Value Sodium Potassium Chloride Carbon Dioxide Anion Gap BUN Creatinine Estimated GFR POC Glucose 220 H Random Glucose Calcium Phosphorus Magnesium Total Bilirubin AST ALT Alkaline Phosphatase Total Creatine Kinase Troponin I B-Natriuretic Peptide Total Protein Albumin Procalcitonin Nasal Screen MRSA (PCR) 08/10/18 08/10/18 08/10/18 05:35 07:35 12:41 WBC RBC Hgb Hct MCV MCH MCHC RDW Plt Count MPV Neut % (Auto) Lymph % (Auto) [place] % (Auto) Eos % (Auto) Baso % (Auto) Neut # (Auto) Lymph # (Auto) [place] # (Auto) Eos # (Auto) Baso # (Auto) WBC Differential Differential Comment PT INR Puncture Site Patient Temperature O2 Saturation ABG pH ABG pCO2 ABG pO2 ABG HCO3 ABG O2 Content ABG Base Excess ABG Methemoglobin Parker Test Hemoglobin Carboxyhemoglobin O2 Delivery Device Vent Setting Inspired O2 Critical Value Sodium 142 Potassium 4.2 Chloride 108 H Carbon Dioxide 25.0 Anion Gap 9 BUN 64 H Creatinine 1.51 H Estimated GFR 45 L POC Glucose 156 H 146 H Random Glucose 165 H Calcium 8.5 Phosphorus 3.8 Magnesium 2.5 Total Bilirubin 0.4 AST 5 L ALT 15 Alkaline Phosphatase 67 Total Creatine Kinase Troponin I B-Natriuretic Peptide Total Protein 7.1 Albumin 2.0 L Procalcitonin Nasal Screen MRSA (PCR) Microbiology 08/07/18 22:45 Blood - Line Aerobic Blood Culture - Preliminary No growth in 3 days 08/07/18 22:45 Blood - Line Anaerobic Blood Culture - Preliminary No growth in 3 days 08/07/18 16:40 Blood - Peripheral Aerobic Blood Culture - Preliminary No growth in 3 days 08/07/18 16:40 Blood - Peripheral Anaerobic Blood Culture - Preliminary No growth in 3 days 08/07/18 16:45 Blood - Peripheral Aerobic Blood Culture - Preliminary No growth in 3 days 08/07/18 16:45 Blood - Peripheral Anaerobic Blood Culture - Preliminary No growth in 3 days - Imaging Impressions Foot MRI 08/08/18 00:00 CONCLUSION: 1. Findings consistent with marrow edema and osteomyelitis involving the fourth and fifth metatarsals. The base of the fifth is spared. Proximal one third of the fourth is spared. Addendum shows OM of calcaneus. Assessment and Plan - Assessment (1) Osteomyelitis of ankle and foot Code(s): M86.9 - Osteomyelitis, unspecified Status: Acute - Plan MRI reviewed with patient and I explained that there appears to be bone involvement in the metatarsals and as well as the calcaneus. The patient is nonambulatory, and his overall clinical status appears to be poor. I do not think the limb is salvageable at this point however it is stable and is not a source of sepsis at this point. Continue antibiotics keep the wounds dry and stable. If the patient improves clinically I may consult vascular with a high chance of needing proximal amputation such as BKA. Will follow along over the next 2-3 days I discussed the case with infectious disease.
--- NOTE | 2018-08-10 17:33 | P.PNPL ---
Subjective Interval history: 73 YOWM with COPD,SHEELA,Resp insuff Weaned to NC used BIPAP last night Alert, awake Diureased Physical Exam Vital signs: Vital Signs 08/09/18 17:43 08/09/18 18:00 08/09/18 19:00 Temperature 97.5 F L Pulse Rate 59 L 63 Respiratory Rate 22 16 Blood Pressure 123/59 L 130/60 Pulse Oximetry 96 96 98 08/09/18 19:54 08/09/18 20:00 08/09/18 21:00 Temperature 97.5 F L Pulse Rate 76 74 75 Respiratory Rate 20 19 23 Blood Pressure 124/58 L 137/61 Pulse Oximetry 93 L 100 92 L 08/09/18 22:00 08/09/18 23:00 08/10/18 00:00 Temperature 97.9 F Pulse Rate 73 73 80 Respiratory Rate 18 18 20 Blood Pressure 121/57 L 123/61 131/59 L Pulse Oximetry 93 L 94 L 93 L 08/10/18 01:00 08/10/18 01:14 08/10/18 01:22 Temperature Pulse Rate 76 78 Respiratory Rate 18 20 Blood Pressure 120/60 Pulse Oximetry 91 L 96 08/10/18 01:30 08/10/18 02:00 08/10/18 03:00 Temperature Pulse Rate 65 70 Respiratory Rate 15 15 Blood Pressure 115/55 L 128/60 Pulse Oximetry 96 97 96 08/10/18 03:27 08/10/18 04:00 08/10/18 05:00 Temperature 98 F Pulse Rate 68 65 67 Respiratory Rate 16 14 14 Blood Pressure 120/57 L 118/57 L Pulse Oximetry 96 100 97 08/10/18 06:00 08/10/18 07:00 08/10/18 07:51 Temperature 98.2 F Pulse Rate 75 73 Respiratory Rate 15 15 Blood Pressure 122/69 125/60 Pulse Oximetry 95 92 L 93 L 08/10/18 08:00 08/10/18 08:23 08/10/18 09:00 Temperature Pulse Rate 77 76 75 Respiratory Rate 16 16 15 Blood Pressure 119/56 L 129/63 Pulse Oximetry 95 93 L 08/10/18 10:00 08/10/18 11:00 08/10/18 12:00 Temperature Pulse Rate 70 78 84 Respiratory Rate 15 16 15 Blood Pressure 109/56 L 113/59 L 117/58 L Pulse Oximetry 94 L 93 L 92 L 08/10/18 13:00 08/10/18 14:00 08/10/18 14:54 Temperature Pulse Rate 83 84 83 Respiratory Rate 16 15 16 Blood Pressure 104/59 L 125/61 Pulse Oximetry 94 L 93 L 08/10/18 15:00 08/10/18 16:00 08/10/18 17:00 Temperature 98.1 F Pulse Rate 84 84 85 Respiratory Rate 15 15 16 Blood Pressure 117/61 111/58 L 110/56 L Pulse Oximetry 92 L 93 L 92 L Intake & Output 08/09/18 08/10/18 08/10/18 18:59 06:59 18:59 Intake Total 510 / 510 500 / 500 400 / 400 Balance 510 / 510 500 / 500 400 / 400 Weight 166.9 kg Intake: IV 510 / 510 500 / 500 400 / 400 Maxipime Inj 1,000 MG In NS Inj 210 / 210 200 / 200 100 / 100 100 ML @ 200 mls/hr IV.SIG Q8H SHAHEED Rx#:[id number] Zyvox 600 mg Premix 300 ML @ 300 / 300 300 / 300 300 / 300 300 mls/hr IV.SIG Q12H SHAHEED Rx#: [id number] Other: # Voids 4 GENERAL: Obese WM, mild sob SKIN: Warm and dry. HEAD: Normocephalic. EYES: No scleral icterus. No injection or drainage. NECK: Supple, trachea midline. No JVD or lymphadenopathy. CARDIOVASCULAR: Regular rate and rhythm without murmurs, gallops, or rubs. RESPIRATORY: Breath sounds equal bilaterally. No accessory muscle use. GASTROINTESTINAL: Abdomen soft, non-tender, nondistended. MUSCULOSKELETAL: No cyanosis, or edema. Odema legs OM rt toe BACK: Nontender without obvious deformity. No CVA tenderness. Assessment and Plan - Plan IMPRESSION: 1. Respiratory failure. 2. Hypoxia. 3. Morbid obesity. 4. Likely sleep apnea. 5. Osteomyelitis. 6. Pneumonia. 7. Pulmonary edema. 8. Renal insufficiency. PLAN: Supplement 02 with NC BIPAP aat night Aerosol nebs Diurease Monitor Lytes Abx per ID
[2018-08-10] MEDS: Finasteride 5 MG Tablet PO SCH (17:43)
[2018-08-11] MEDS: Gabapentin 300 MG Capsule PO SCH ×5 (00:22→23:50)
[2018-08-11] MEDS: Chlorhexidine Gluconate 2% 1 Pack (2 Cloths) TOPICAL SCH (03:16)
--- NOTE | 2018-08-11 04:19 | XR ---
EXAM DATE: 08/11/2018 6:00 AM EDT AGE/SEX: 73 years / Male INDICATIONS: Short of breath. CLINICAL DATA: This is the patient's subsequent encounter. Patient reports that signs and symptoms h ave been present for 1 week and indicates a pain score of 0/10. MEDICAL/SURGICAL HISTORY: Gastroesophageal reflux disease. Hypercholesterolemia. Hypertension . Diabetes. None. COMPARISON: [facility] [place] [facility] [place] 1[place] SINGLE AP, 08/09/2018. . FINDINGS: There are findings of congestive heart failure with interstitial and alveolar opacity bilaterally. Th e cardiac silhouette is enlarged in transverse diameter. Moderate size bilateral pleural effusions ar e identified. CONCLUSION: Diffuse bilateral edema versus pneumonia. There has been no significant change when compared to the p rior exam. Electronically signed by: Herber Randall MD 08/11/2018 4:17 AM EDT
[2018-08-11 05:11] LABS: Baso # (Auto) 0.1 th/mm3 (0.0-0.2); Baso % (Auto) 0.9 % (0.0-2.0); Eos # (Auto) 0.3 th/mm3 (0.0-0.4); Eos % (Auto) 4.6 % (0.0-4.0); Hemoglobin 8.5 gm/dL (13.0-17.0); Lymph # (Auto) 1.4 th/mm3 (1.0-4.8); Mean Corpuscular HGB Conc 32.9 % (32.0-36.0); Mean Corpuscular Hemoglobin 28.6 pg (27.0-34.0); Mean Corpuscular Volume 86.9 fL (80.0-100.0); Mean Platelet Volume 8.7 fL (7.0-11.0); Mono # (Auto) 0.5 th/mm3 (0.0-0.9); Mono % (Auto) 7.3 % (0.0-8.0); Neut # (Auto) 4.9 th/mm3 (1.8-7.7); Neut % (Auto) 68.2 % (16.0-70.0); Platelet Count 130 th/mm3 (150-450); Red Blood Count 2.99 mil/mm3 (4.50-5.90); Red Cell Distribution Width 16.4 % (11.6-17.2); White Blood Count 7.2 th/mm3 (4.0-11.0)
[2018-08-11 05:51] LABS: Alanine Aminotransferase 12 U/L (12-78); Albumin 1.8 g/dL (3.4-5.0); Anion Gap 6 meq/L (5-15); Aspartate Aminotransferase 6 U/L (15-37); Blood Urea Nitrogen 65 mg/dL (7-18); Calcium 7.9 mg/dL (8.5-10.1); Carbon Dioxide 26.3 meq/L (21.0-32.0); Chloride 109 meq/L (98-107); Glomerular Filtration Rate 40 mL/min (>89); Glucose,Random 175 mg/dL (74-106); Magnesium 2.5 mg/dL (1.5-2.5); Potassium 4.7 meq/L (3.5-5.1); Sodium 141 meq/L (136-145)
[2018-08-11 05:53] LABS: Alkaline Phosphatase 66 U/L (45-117); Total Protein 6.9 g/dL (6.4-8.2)
--- NOTE | 2018-08-11 08:46 | P.PN ---
Subjective Interval history: on telemetry- in a fib rhythm- rate controlled high fi02 requirement overnight + cough- minimal sputum left leg- appears bigger on exam compared to the right calf per patient baseline with neuropathy- so does not feel well- can't tell- if calf tender baseline gets around with a wheelchair states not on home 02 Physical Exam Vital signs: Vital Signs 08/10/18 09:00 08/10/18 10:00 08/10/18 11:00 Temperature Pulse Rate 75 70 78 Respiratory Rate 15 15 16 Blood Pressure 129/63 109/56 L 113/59 L Pulse Oximetry 93 L 94 L 93 L 08/10/18 12:00 08/10/18 13:00 08/10/18 14:00 Temperature Pulse Rate 84 83 84 Respiratory Rate 15 16 15 Blood Pressure 117/58 L 104/59 L 125/61 Pulse Oximetry 92 L 94 L 93 L 08/10/18 14:54 08/10/18 15:00 08/10/18 16:00 Temperature 98.1 F Pulse Rate 83 84 84 Respiratory Rate 16 15 15 Blood Pressure 117/61 111/58 L Pulse Oximetry 92 L 93 L 08/10/18 17:00 08/10/18 18:00 08/10/18 18:52 Temperature Pulse Rate 85 83 Respiratory Rate 16 17 Blood Pressure 110/56 L 116/56 L Pulse Oximetry 92 L 91 L 93 L 08/10/18 19:00 08/10/18 19:33 08/10/18 19:44 Temperature Pulse Rate 83 79 Respiratory Rate 17 16 Blood Pressure 124/61 Pulse Oximetry 90 L 93 L 08/10/18 20:00 08/10/18 21:00 08/10/18 21:41 Temperature 97.6 F Pulse Rate 82 82 Respiratory Rate 16 16 Blood Pressure 128/58 L 129/60 Pulse Oximetry 94 L 96 97 08/10/18 22:00 08/10/18 23:00 08/11/18 00:00 Temperature 97.9 F Pulse Rate 76 78 76 Respiratory Rate 14 14 14 Blood Pressure 123/56 L 119/57 L 116/58 L Pulse Oximetry 94 L 96 95 08/11/18 01:00 08/11/18 01:43 08/11/18 02:00 Temperature Pulse Rate 70 62 Respiratory Rate 15 15 Blood Pressure 119/56 L 102/51 L Pulse Oximetry 95 98 95 08/11/18 03:00 08/11/18 03:31 08/11/18 04:00 Temperature 97.6 F Pulse Rate 74 71 75 Respiratory Rate 16 16 15 Blood Pressure 115/58 L 108/54 L Pulse Oximetry 96 95 94 L 08/11/18 05:00 08/11/18 06:00 08/11/18 07:00 Temperature Pulse Rate 67 64 64 Respiratory Rate 15 16 14 Blood Pressure 119/58 L 116/57 L 116/59 L Pulse Oximetry 94 L 96 95 08/11/18 08:00 08/11/18 08:03 Temperature 97.2 F L Pulse Rate 67 71 Respiratory Rate 18 17 Blood Pressure 131/60 Pulse Oximetry 96 96 Intake & Output 08/10/18 08/11/18 08/11/18 18:59 06:59 18:59 Intake Total 880 / 880 400 / 400 100 / 100 Balance 880 / 880 400 / 400 100 / 100 Weight 166.9 kg Intake: IV 400 / 400 400 / 400 100 / 100 Maxipime Inj 1,000 MG In NS Inj 100 / 100 100 / 100 100 / 100 100 ML @ 200 mls/hr IV.SIG Q8H SHAHEED Rx#:[id number] Zyvox 600 mg Premix 300 ML @ 300 / 300 300 / 300 300 mls/hr IV.SIG Q12H SHAHEED Rx#: [id number] Oral 480 / 480 Other: # Voids 5 4 # Bowel Movements 0 Narrative: awake and alert, speech slow but clear, generalized weakness Morbid Obesity, SKIN: Cool and dry, no generalized rash HEAD: Atraumatic. Normocephalic. No temporal or scalp tenderness. EYES: Pupils equal round and reactive. Scleral icterus. No injection or drainage. No petechia ENT: Nothing abnormal detected NECK: Trachea midline. Supple, nontender, no meningeal signs. CARDIOVASCULAR: irregularly irregular rhythm RESPIRATORY: + few basal rales,+ expiratory rhonchis GASTROINTESTINAL: Abdomen soft nontender. good bowel sounds, flabby LE- right foot with dry necrotic ulceration dorsal aspect of the foot Left leg/calf - bigger than right leg, no induration, subjectively no tenderness NEUROLOGICAL: Alert oriented 3. Nonfocal. - Urinary Catheter Management Indwelling Urethral Catheter Cath placed during this visit: yes Reason for continuing: Hourly intake/output Insertion date: 08/11/18 Insertion time: 12:00 Results - Labs CBC & Chem 7: 08/12/18 02:41 08/12/18 02:41 Laboratory Results - last 24 hr 08/10/18 08/10/18 08/10/18 12:41 17:41 20:58 WBC RBC Hgb Hct MCV MCH MCHC RDW Plt Count MPV Neut % (Auto) Lymph % (Auto) Will % (Auto) Eos % (Auto) Baso % (Auto) Neut # (Auto) Lymph # (Auto) Will # (Auto) Eos # (Auto) Baso # (Auto) WBC Differential Differential Comment Sodium Potassium Chloride Carbon Dioxide Anion Gap BUN Creatinine Estimated GFR POC Glucose 146 H 231 H 198 H Random Glucose Calcium Phosphorus Magnesium Total Bilirubin AST ALT Alkaline Phosphatase Total Protein Albumin 08/11/18 08/11/18 04:15 04:15 WBC 7.2 RBC 2.99 L Hgb 8.5 L Hct 26.0 L MCV 86.9 MCH 28.6 MCHC 32.9 RDW 16.4 Plt Count 130 L MPV 8.7 Neut % (Auto) 68.2 Lymph % (Auto) 19.0 Will % (Auto) 7.3 Eos % (Auto) 4.6 H Baso % (Auto) 0.9 Neut # (Auto) 4.9 Lymph # (Auto) 1.4 Will # (Auto) 0.5 Eos # (Auto) 0.3 Baso # (Auto) 0.1 WBC Differential . Differential Comment Auto diff final Sodium 141 Potassium 4.7 Chloride 109 H Carbon Dioxide 26.3 Anion Gap 6 BUN 65 H Creatinine 1.69 H Estimated GFR 40 L POC Glucose Random Glucose 175 H Calcium 7.9 L Phosphorus 4.0 Magnesium 2.5 Total Bilirubin 0.3 AST 6 L ALT 12 Alkaline Phosphatase 66 Total Protein 6.9 Albumin 1.8 L Microbiology 08/07/18 22:45 Blood - Line Aerobic Blood Culture - Preliminary No growth in 3 days 08/07/18 22:45 Blood - Line Anaerobic Blood Culture - Preliminary No growth in 3 days 08/07/18 16:40 Blood - Peripheral Aerobic Blood Culture - Preliminary No growth in 3 days 08/07/18 16:40 Blood - Peripheral Anaerobic Blood Culture - Preliminary No growth in 3 days 08/07/18 16:45 Blood - Peripheral Aerobic Blood Culture - Preliminary No growth in 3 days 08/07/18 16:45 Blood - Peripheral Anaerobic Blood Culture - Preliminary No growth in 3 days - Imaging Impressions Chest X-Ray 08/11/18 06:00 CONCLUSION: Diffuse bilateral edema versus pneumonia. There has been no significant change when compared to the prior exam. Assessment and Plan - Assessment (1) PNA (pneumonia) Code(s): J18.9 - Pneumonia, unspecified organism Status: Acute (2) Pleural effusion Code(s): J90 - Pleural effusion, not elsewhere classified Status: Acute (3) JOSE (acute kidney injury) Code(s): N17.9 - Acute kidney failure, unspecified Status: Acute - Plan 73 years old male Acute respiratory Failure- high 02 requirment- on Bi PAP- ARDS like picture- CXR reviewed by me History of COPD History fo SHEELA Bilateral effusion - Pulmonary ff Patient was on BiPAP overnight 15/5-40%. Currently on nasal cannula 4 L Titrate to keep saturations greater than 90% Incentive spirometry while awake Albuterol/ipratropium aerosols every 6 hours with albuterol aerosols every 2 hours as needed dyspnea CXR reviewed - ARDS like , BNP only 200s will reconsult CCM- Dr. Mae- may need ventilatory support continue on Lasix + KCL A fib on telemetry- rate controlled- ? new onset- no p wavwes visible on telemetry Essential hypertension Hyperlipidemia History of non-STEMI Get a 12 LEKG Continue amlodipine 5 mg daily, carvedilol 3.5 mg twice daily and hydralazine 50 mg 3 times daily for hypertension Continue atorvastatin 20 mg daily for hyperlipidemia furosemide 40 mg IV twice daily, KCL 20 meq po bid Last echo 06/12 revealed LVEF - hard to assess but suspect mildly impaired. Cardiology consult - candidate for newer OAC- but may need possible BKA - full dose anticoagulation if confirmed OM right foot Left calf bigger than right on exam MRI foot revealed posterior calcaneus obstruction. Fifth metatarsal head with destruction. Followed by podiatry/ID - may need BKA -get a Doppler of the left leg- enlarged - if + consider VQ or CTA r/o PE Continue cefepime, azithromycin and linezolid Cultures negative 08/07 blood cultures x3, urine Legionella and pneumococcal antigens and influenza a and B Depression Peripheral neuropathy History of right frontal CVA Continue acetaminophen 650 every 6 hours as needed fever Morphine sulfate 2 mg IV every 4 hours as needed pain 6 or 10 Gabapentin 300 mg p.o. every 6 hours peripheral neuropathy Duloxetine 30 mg daily for depression continue Gastroesophageal reflux disease Hypoalbuminemia ADA diet Pantoprazole for GI prophylaxis/home medication 40 mg daily Docusate sodium/senna 1 tablet twice daily for bowel rhythm. Add polythene glycol 17 g twice daily BPH Continue tamsulosin 0.4 mg daily for BPH Diabetes mellitus Currently on sliding scale insulin aspart medium protocol AC/at bedtime Insulin detemir 10 units twice daily TSH was 2.77 Chronic kidney disease stage II Renal ultrasound scan revealed increased echogenicity to the right kidney A.m. laboratories pending Monitor urine output Accurate I's and O's Thrombocytopenia Normocytic anemia Monitor CBCs daily. Follow trends. No indication for transfusion of blood products at this time. Elevated BMI weight loss encouraged Access -Right upper extremity PICC line. Prophylaxis -GI -pantoprazole -DVT -heparin subcu
[2018-08-11] MEDS: Aspirin 325 MG Tablet PO SCH (09:12)
[2018-08-11] MEDS: guaiFENesin 600 MG ER Tablet PO SCH ×2 (09:12→20:14)
[2018-08-11] MEDS: Azithromycin 250 MG Tablet PO SCH (09:12)
[2018-08-11] MEDS: amLODIPine 5 MG Tablet PO SCH (09:13)
[2018-08-11] MEDS: Heparin - SQ 10,000 UNITS/ML Vial SQ SCH ×2 (09:13→20:12)
[2018-08-11] MEDS: Senna/Docusate Sodium 8.6/50 MG Tablet PO SCH ×2 (09:13→20:15)
[2018-08-11] MEDS: hydrALAZINE 50 MG Tablet PO SCH (09:13)
[2018-08-11] MEDS: Insulin Detemir Inj 1,000 UNIT/10 ML Vial SQ SCH ×2 (09:14→20:13)
[2018-08-11] MEDS: Polyethylene Glycol 3350 17 GM Packet PO SCH ×2 (09:14→20:14)
[2018-08-11] MEDS: Insulin NovoLOG Aspart Correctional Sugar Inj SQ SCH ×4 (09:15→23:50)
[2018-08-11] MEDS ORDERED: Propofol 1000 mg/100 ml Inj 1,000 MG/100 ML BOTTLE IV.CONT PRN (10:02)
[2018-08-11] MEDS ORDERED: Etomidate Inj 40 MG/20 ML Vial IV.PUSH ONE (10:02)
[2018-08-11 10:32] LABS: ABG Base Excess -0.9 mmol/L (-2-2); ABG PCO2 48 mmHg (38-42); ABG PO2 115 mmHG (61-120)
--- NOTE | 2018-08-11 10:32 | P.PNCC ---
Subjective Subjective Remarks/Hospital Course: 73-year-old male with past medical history significant for morbid obesity, peripheral neuropathy, diabetes mellitus, hyperlipidemia and hypertension. Patient is a long-term resident of [facility] in reportedly is not very active and is mostly bedbound. Patient was brought into the emergency room by EMS from [facility] for shortness of breath and hypoxia. Per report patient had an episode of shortness of breath with O2 sats of 70% on room air however patient refused transport to the ER. Thereafter patient had another episode of shortness of breath and hypoxia. By this time patient had been treated with Zyvox for lower extremity wound for positive MRSA as well as recently started on [facility]. Patient has a PICC line in place and has been treated with IV antibiotics. On arrival his blood pressure was 145/63, heart rate of 81, O2 sats 97% on 10 L simple mask. His blood gas was unremarkable. His creatinine was 1.93 and previously in May 2018 was 1.83. His chest x-ray showed bilateral lung consolidation possible element of pulmonary edema as well as small bilateral pleural effusion. On 08/09 patient became more hypoxemic again requiring the placement on the BiPAP ventilator and transferred to ICU. Critical care services were consulted for management of respiratory failure. 08/10: Afebrile. Currently on 4 L nasal cannula saturations are 90%. Patient normally wears CPAP/BiPAP at home according to patient. Since seen by Dr. Slim Estevez previous hospitalization. SUBJECTIVE: 08/11: Reconsulted this patient remains on BiPAP. Still appears to be normal sinus rhythm. Echocardiogram revealed dilated LV/LVH, left atrial enlargement. Possible calcified lesion left coronary cusp. Currently on furosemide 40 mg IV twice daily. Likely source of ARDS will likely need intubation. Objective Vital Signs / I&O: Vital Signs 08/10/18 11:00 08/10/18 12:00 08/10/18 13:00 Temperature Pulse Rate 78 84 83 Respiratory Rate 16 15 16 Blood Pressure 113/59 L 117/58 L 104/59 L Pulse Oximetry 93 L 92 L 94 L 08/10/18 14:00 08/10/18 14:54 08/10/18 15:00 Temperature Pulse Rate 84 83 84 Respiratory Rate 16 15 Blood Pressure 125/61 117/61 Pulse Oximetry 93 L 92 L 08/10/18 16:00 08/10/18 17:00 08/10/18 18:00 Temperature 98.1 F Pulse Rate 84 85 83 Respiratory Rate 15 16 17 Blood Pressure 111/58 L 110/56 L 116/56 L Pulse Oximetry 93 L 92 L 91 L 08/10/18 18:52 08/10/18 19:00 08/10/18 19:33 Temperature Pulse Rate 83 Respiratory Rate 17 Blood Pressure 124/61 Pulse Oximetry 93 L 90 L 93 L 08/10/18 19:44 08/10/18 20:00 08/10/18 21:00 Temperature 97.6 F Pulse Rate 79 82 82 Respiratory Rate 16 16 16 Blood Pressure 128/58 L 129/60 Pulse Oximetry 94 L 96 08/10/18 21:41 08/10/18 22:00 08/10/18 23:00 Temperature Pulse Rate 76 78 Respiratory Rate 14 14 Blood Pressure 123/56 L 119/57 L Pulse Oximetry 97 94 L 96 08/11/18 00:00 08/11/18 01:00 08/11/18 01:43 Temperature 97.9 F Pulse Rate 76 70 Respiratory Rate 14 15 Blood Pressure 116/58 L 119/56 L Pulse Oximetry 95 95 98 08/11/18 02:00 08/11/18 03:00 08/11/18 03:31 Temperature Pulse Rate 62 74 71 Respiratory Rate 15 16 16 Blood Pressure 102/51 L 115/58 L Pulse Oximetry 95 96 95 08/11/18 04:00 08/11/18 05:00 08/11/18 06:00 Temperature 97.6 F Pulse Rate 75 67 64 Respiratory Rate 15 15 16 Blood Pressure 108/54 L 119/58 L 116/57 L Pulse Oximetry 94 L 94 L 96 08/11/18 07:00 08/11/18 08:00 08/11/18 08:03 Temperature 97.2 F L Pulse Rate 64 67 71 Respiratory Rate 14 18 17 Blood Pressure 116/59 L 131/60 Pulse Oximetry 95 96 96 Intake & Output 08/10/18 08/11/18 08/11/18 18:59 06:59 18:59 Intake Total 880 / 880 400 / 400 100 / 100 Balance 880 / 880 400 / 400 100 / 100 Weight 166.9 kg Intake: IV 400 / 400 400 / 400 100 / 100 Maxipime Inj 1,000 MG In NS Inj 100 / 100 100 / 100 100 / 100 100 ML @ 200 mls/hr IV.SIG Q8H SHAHEED Rx#:[id number] Zyvox 600 mg Premix 300 ML @ 300 / 300 300 / 300 300 mls/hr IV.SIG Q12H SHAHEED Rx#: [id number] Oral 480 / 480 Other: # Voids 5 4 # Bowel Movements 0 Result Diagrams: 08/11/18 04:15 08/11/18 04:15 Other Results: Microbiology 08/07/18 22:45 Blood - Line Aerobic Blood Culture - Preliminary No growth in 3 days 08/07/18 22:45 Blood - Line Anaerobic Blood Culture - Preliminary No growth in 3 days 08/07/18 16:40 Blood - Peripheral Aerobic Blood Culture - Preliminary No growth in 3 days 08/07/18 16:40 Blood - Peripheral Anaerobic Blood Culture - Preliminary No growth in 3 days 08/07/18 16:45 Blood - Peripheral Aerobic Blood Culture - Preliminary No growth in 3 days 08/07/18 16:45 Blood - Peripheral Anaerobic Blood Culture - Preliminary No growth in 3 days 08/07/18 17:25 Urine - Clean Catch Urine Legionella Antigen - Final Presumptive negative for Legionella pneumophila serogroup 1 antigen in urine, suggesting no recent or recurrent infection. Infection due to Legionella cannot be ruled out since other serogroups and species may cause disease, antigen may not be present in urine in early infection, and the level of antigen present in the urine may be below the detection limit of the test. 08/07/18 15:30 Nasal Wash Influenza Types A,B Antigen - Final Negative for FLU A and B antigen Infection due to influenza A or B cannot be ruled out since the antigen present in the sample may be below the detection limit of the test. Imaging: Foot X-Ray 08/06/18 00:00 CONCLUSION: Destructive changes at the fifth metatarsal head and possibly the fourth metatarsal head. Chest X-Ray 08/06/18 02:23 CONCLUSION: Bilateral lung consolidation. Differential diagnosis includes pulmonary edema and infection with probable small bilateral pleural effusions. Venous Doppler Study 08/07/18 00:00 CONCLUSION: No evidence of right upper extremity DVT. Extremity Arterial Study 08/08/18 00:00 CONCLUSION: 1. Moderate reduction of the toe brachial indices bilaterally suggesting microangiopathic disease. 2. ABIs within the normal range bilaterally. Foot MRI 08/08/18 00:00 CONCLUSION: 1. Findings consistent with marrow edema and osteomyelitis involving the fourth and fifth metatarsals. The base of the fifth is spared. Proximal one third of the fourth is spared. Chest X-Ray 08/09/18 00:00 CONCLUSION: 1. Worsening diffuse severe bilateral airspace consolidation consistent with ARDS versus severe pulmonary edema. Chest X-Ray 08/11/18 06:00 CONCLUSION: Diffuse bilateral edema versus pneumonia. There has been no significant change when compared to the prior exam. Objective Remarks: GENERAL: 73-year-old male currently resting in bed in no acute distress on BiPAP SKIN: Cool and dry HEAD: Atraumatic. Normocephalic. EYES: Pupils equal and round. No scleral icterus. No injection or drainage. ENT: No nasal bleeding or discharge. Mucous membranes pink and moist. NECK: Trachea midline. No JVD. CARDIOVASCULAR: Regular rate and rhythm. S1, S2. No S4. RESPIRATORY: Diminished breath sounds. Few fine crackles appreciated anteriorly. No wheezing GASTROINTESTINAL: Abdomen obese and protuberant. Hypoactive bowel sounds appreciated MUSCULOSKELETAL: Extremities with right lower extremity with destruction of the second/third/fourth digits foot to bone. Currently covered with Juan bandage NEUROLOGICAL: Prior to intubation, awake and alert. No obvious cranial nerve deficits. Motor grossly within normal limits. Five out of 5 muscle strength in the arms and legs. Normal speech. Assessment and Plan - Assessment and Plan Plan: Neuro/Psych: Depression Peripheral neuropathy History of right frontal CVA Currently on propofol/fentanyl drips for sedation/analgesia while intubated Goal of RASS -2 Daily sedation vacation Continue acetaminophen 650 every 6 hours as needed fever Morphine sulfate 2 mg IV every 4 hours as needed pain 6 or 10 Gabapentin 300 mg p.o. every 6 hours peripheral neuropathy Duloxetine 30 mg daily for depression continue CV: Essential hypertension Hyperlipidemia History of non-STEMI Continue amlodipine 5 mg daily, carvedilol 3.125 mg twice daily and hydralazine 50 mg 3 times daily for hypertension Continue atorvastatin 20 mg daily for hyperlipidemia Continue furosemide 40 mg IV twice daily Last echo 06/12 revealed LVEF - hard to assess but suspect mildly impaired. Current echocardiogram revealed EF around 55%. Dilated LV/LVH and left atrial enlargement. PA P 26 MAC. Possible left coronary cusp calcification. Resp: Acute respiratory failure secondary to ARDS OHS Bilateral pleural effusions Patient was on BiPAP overnight 15/5-40%. Intubated currently on [place] VC 16/600/1/5/100 Ventilator bundle Titrate to keep saturations greater than 90% Follow-up on chest x-ray and ABG post intubation Albuterol/ipratropium aerosols every 6 hours with albuterol aerosols every 2 hours as needed dyspnea Follow-up on chest x-ray in a.m. 08/12. Today's chest x-ray revealed increasing bilateral fluffy infiltrates edema versus ARDS GI: Gastroesophageal reflux disease Hypoalbuminemia Glucerna 1.5 goal 60 cc an hour Result for GI prophylaxis/home medication pantoprazole 40 mg daily Docusate sodium/senna 1 tablet twice daily for bowel regimen along with polythene glycol 17 g twice daily : BPH Continue tamsulosin 0.4 mg daily for BPH Endo: Diabetes mellitus Currently on sliding scale insulin aspart medium protocol is hours Insulin detemir 5 units twice daily TSH was 2.77 Renal: Chronic kidney disease stage II Renal ultrasound scan revealed increased echogenicity to the right kidney Creatinine slightly increased to 1.69 Monitor urine output Accurate I's and O's Heme: Thrombocytopenia Normocytic anemia Monitor CBCs daily. Follow trends. No indication for transfusion of blood products at this time. ID: Likely HCAP OM right foot Continue cefepime, azithromycin and linezolid Followed by infectious disease Cultures negative 08/07 blood cultures x3, urine Legionella and pneumococcal antigens and influenza a and B Otic pro-calcitonin 0.17 FEN: Replace electrolytes as clinically indicated Currently on potassium chloride 20 mg twice daily 1 furosemide MSK: Elevated BMI weight loss encouraged MRI foot revealed posterior calcaneus action n. Fifth metatarsal head with destruction. Will likely need amputation Followed by podiatry. Access -Right upper extremity PICC line. Prophylaxis -GI -lansoprazole -DVT -heparin subcu Critical care time [address] yeh. Patient. Care plan discussed and all questions answered.
--- NOTE | 2018-08-11 11:05 | US ---
EXAM DATE: 08/11/2018 12:00 AM EDT AGE/SEX: 73 years / Male INDICATIONS: Right leg swelling. CLINICAL DATA: This is the patient's initial encounter. Patient reports that signs and symptoms have been present for 1 month and indicates a pain score of 1/10. MEDICAL/SURGICAL HISTORY: Diabetes. Gastroesophageal reflux disease. Hypertension. Hyperlipi demia. Neuropathy. Pneumonia. MRSA. . Poor historian. COMPARISON: . TECHNIQUE: Venous ultrasound of both lower extremities was performed from the inguinal ligament to t he proximal calf. Real-time, color Doppler and spectral tracing, compression and augmentation techni ques were used. FINDINGS: Normal compression of the deep venous system from the inguinal region to the proximal calf . No echogenic clot is seen. Normal response of the venous system to augmentation and respiration. CONCLUSION: 1. Negative for deep venous thrombosis Electronically signed by: Jose Elias Mao MD 08/11/2018 11:03 AM EDT
--- NOTE | 2018-08-11 11:43 | P.PCN ---
Date of procedure: 08/11/18 Pre-op diagnosis: Acute respiratory failure Post-op diagnosis: same Procedure: DATE: 08/11/2018 PROCEDURE: Orotracheal intubation INDICATION: Acute respiratory failure DETAILS OF PROCEDURE The patient was placed in optimal position and preoxygenated with 100% FiO2 via bag valve mask. At the start oxygen saturation was 99%. The patient was administered 20 mg etomidate IV and 50 milligrams rocuronium IV. I entered the oropharynx with a size 4 laryngoscope blade and obtained a grade 2 view of the airway. On single attempt a size 8.0 cuffed endotracheal tube was passed through the vocal cords. Correct tube location was confirmed with end tidal CO2 detector and by auscultating over bilateral lung tate. The endotracheal tube was secured with adhesive tape at a depth of 24 cm at the lips. The patient was connected to the ventilator. The patient tolerated the procedure well without any apparent complications. Oxygen saturations were maintained greater than 95% all times. STAT chest x-ray pending at time of dictation.
[2018-08-11] MEDS ORDERED: Oral Hygiene Kit OROPHARYNG SCH (12:00)
[2018-08-11] MEDS ORDERED: Midazolam 50 MG/50 ML Inj 50 MG/50 ML BAG IV.CONT PRN (12:39)
[2018-08-11] MEDS ORDERED: Norepinephrine Inj 16 MG in Sodium Chlor 0.9% Inj 234 ML IV.CONT PRN (12:40)
--- NOTE | 2018-08-11 12:43 | XR ---
EXAM DATE: 08/11/2018 11:42 AM EDT AGE/SEX: 73 years / Male INDICATIONS: Post intubation. CLINICAL DATA: This is the patient's subsequent encounter. Patient reports that signs and symptoms h ave been present for 4 - 6 days and indicates a pain score of Nonresponsive. MEDICAL/SURGICAL HISTORY: . Diabetes mellitus. GERD. Hyperlipidemia. Hypertension. Neuropathy. Obesity. . [place] [facility] [place]. . FINDINGS: There is complete opacification of both lungs. Endotracheal tube tip at the inferior margin the clavi cles. The patient is rotated to the left. The cardiac silhouette is obscured. An enteric tube courses off the inferior margin of the film. CONCLUSION: Complete opacification of the thorax, significantly limits the study. Electronically signed by: Oneil Jones MD 08/11/2018 12:42 PM EDT
[2018-08-11] MEDS: Oral Hygiene Kit OROPHARYNG SCH ×3 (13:34→23:50)
--- NOTE | 2018-08-11 13:47 | ECG ---
Date Performed: 08/11/2018 Time Performed: 09:39:08 PTAGE: 73 years EKG: Proable Accelerated idioventricular rhythm Generalized low QRS voltages PREVIOUS TRACING : 06/06/2018 22.30 DOCTOR: Ozzy Weiss M.D. Interpretating Date/Time 08/11/2018 13:45:07
--- NOTE | 2018-08-11 14:00 | P.CONPAL ---
Consult Service: Palliative Care Requesting Physician: Dima Mae Reason for Consult: a. To assist with evaluation and management of symptoms including: Pain, dyspnea, debility. b. To assist medical decision maker(s) with: better understanding of current medical conditions; weighing benefits/burdens of medical treatment options; making medical treatment decisions. Primary Care Provider: UNKNOWN History of Present Illness History of Present Illness: Mr. Meléndez is a 73-year-old male with past medical history of hypertension, hyperlipidemia, diabetes, peripheral neuropathy, morbid obesity and left lower extremity wound infection + MRSA. Patient was previously admitted from home to [facility] with pneumonia in May 2018, discharged to [facility]. Since that time notes indicate he had been bed to wheelchair bound. Patient presented to [facility] emergency department on 08/06/18 from [facility] for shortness of breath and hypoxia. Patient reportedly had an episode of shortness of breath with oxygen saturation in the 70% on room air, he reportedly refused transportation to the emergency department. Later that same day he had a recurrent episode of shortness of breath and hypoxia. Upon arrival to the emergency department: * VS: Pulse 61, respiratory rate 24, BP 145/63, oxygen saturation 97% * WBC 10.1, hemoglobin 9.0, hematocrit 27.2, platelet count 197, neutrophils 70.1% * Sodium 143, potassium 4.4, chloride 109, carbon dioxide 24.8, BUN 89, creatinine 1.93, GFR 34, glucose 176, calcium 7.9 * Total bilirubin 0.2, AST 13, ALT 24, alkaline phosphatase 82 * Troponin 0.03 * BNP 300 * Total protein 7.7, albumin 2.0 * Chest [id number] lung consolidation possible pulmonary edema and infection with probable small bilateral pleural effusion. * Blood cultures no growth 4 days * Negative flu a and B Patient was admitted with pneumonia, pleural effusions, acute kidney injury. Wound care was consulted for evaluation and management of left lower extremity wound with recommendations to consult podiatry for right lateral foot wound and right heel. He was also noted to have a stage III pressure injury to the right buttock. Dr. Vital, podiatry was consulted with recommendations for wound care and concern for osteomyelitis given exposure of bone to wounds. Foot MRI consistent with marrow edema and osteomyelitis involving the 4th and 5th metatarsals, base of the 5th and proximal 1/3 of the 4th is spared. Infectious disease, Dr. Deepika Bazan was consulted for evaluation of pneumonia and osteomyelitis, antibiotic recommendations made. Pulmonology, Dr. Lewis was consulted for respiratory failure with recommendations to continue BiPAP. On 08/09/18, he became hypoxic again and was transferred to ICU on BiPAP. Critical care was consulted. Chest x-ray revealed worsening diffuse severe bilateral airspace consolidation consistent with ARDS vs. severe pulmonary edema. Echocardiogram revealed EF 55-60%, focal calcification of the left coronary cusp could not exclude vegetation, mild tricuspid regurgitation, pulmonary arterial pressure was 26. Podiatry notes from 08/10/18 "MRI reviewed with patient and I explained that there appears to be bone involvement in the metatarsals and as well as the calcaneus. The patient is nonambulatory, and his overall clinical status appears to be poor. I do not think the limb is salvageable at this point however it is stable and is not a source of sepsis at this point. Continue antibiotics keep the wounds dry and stable. If the patient improves clinically I may consult vascular with a high chance of needing proximal amputation such as BKA. Will follow along over the next 2-3 days I discussed the case with infectious disease." Given clinical decline and imaging consistent with possible ARDS, patient was intubated on 08/11/18. He indicates patient will likely need amputation of right foot. He is critically ill and may not survive. Palliative care was consulted to assist with further clarification of goals of medical treatment in this critically ill gentleman. Called [facility] to see if they have any written advance directives, copy of written designation of health care surrogate received dated 06/15/18 naming his sister, Lindsey Chand as health care surrogate # [phone]. Called to provide medical update to both sisters, Frances and Lindsye. Reviewed critical illness and above information. Frances indicates she may try to get to [place] in the next 24-48 hours. Lindsey was aware he designated her as [facility] care surrogate, she indicates she talks to the patient everyday. She indicates he has recently been telling her that he did not think he would recover and that he wants to be allowed to when it is his time. She therefore elects intubation only code status. She is certain he would NOT want amputation even if it meant he would sooner related to infection. She indicates feeling that he is too weak to survive surgery. Function/Cognitive Trajectory: Was bed to WC bound prior to admission. Required assistance for all care per SNF reports. Review of Systems unobtainable due to endotracheal tube PMFSH - History History Provided By: Patient - Medical / Surgical Hx Neg / Unobtainable Surgical History: Unable to Obtain - Medical History Medical History: Medical History (Last Reviewed 08/10/18 @ 16:16 by Funmi Pierce) Obesity Depression Diabetes Diabetes GERD (gastroesophageal reflux disease) HTN (hypertension) High cholesterol Neuropathy - Family History Family History: Family History (Last Updated 08/11/18 @ 14:59 by Cynthia Hedrick) Father Malignancy - Social History I have reviewed the patient's Social History: Yes - Tobacco History Second Hand Smoke Exposure: No Tobacco Use In Past 30 Days: No Smoking Status: Former smoker Tobacco Type: Cigarettes - Alcohol History How Often Do You Have a Drink Containing Alcohol: Never - Substance Use History Substance History: No History of Abuse - Immunization History Tetanus Immunization: Unsure Hx Influenza Vaccine This Season: No Medications and Allergies Active Medications: Active Medications Acetaminophen (Tylenol) 650 mg PO Q6H PRN PRN Reason: Temp > 100.4 Al Hydroxide/Mg Hydroxide (Milk Of Magnbruce Licarlos) 30 ml PO Q12H PRN PRN Reason: Mild Constipation Albuterol (Albuterol Neb (Prn)) 2.5 mg NEB Q2HR NEB PRN PRN Reason: DYSPNEA Albuterol (Duoneb Neb (Filomena)) 1 ampul NEB Q6HR NEB FILOMENA Last Admin: 08/11/18 08:03 Dose: 1 ampul Amlodipine Besylate (Norvasc) 5 mg PO DAILY [facility] Last Admin: 08/11/18 09:13 Dose: 5 mg Artificial Tears (Refresh Tears 0.5% Opth Drops) 1 drop EACH EYE BID [facility] Aspirin (Aspirin) 325 mg PO DAILY [facility] Last Admin: 08/11/18 09:12 Dose: 325 mg Atorvastatin Calcium (Lipitor) 20 mg PO HS [facility] Last Admin: 08/10/18 21:00 Dose: 20 mg Azithromycin (Zithromax) 500 mg PO DAILY [facility] Last Admin: 08/11/18 09:12 Dose: 500 mg Bisacodyl (Dulcolax Supp) 10 mg RECTAL DAILY PRN PRN Reason: SEVERE CONSITIPATION Carvedilol (Coreg) 3.125 mg PO BID [facility] Last Admin: 08/11/18 09:14 Dose: 3.125 mg Chlorhexidine Gluconate (Chlorhexidine 2% Cloth) 3 pack TOPICAL DAILY@0400 [facility] Stop: 08/15/18 03:59 Last Admin: 08/11/18 03:16 Dose: 3 pack Chlorhexidine Gluconate (Chlorhexidine 2% Cloth) 1 pack TOPICAL PRN PRN PRN Reason: FOR HYGIENIC CARE Chlorhexidine Gluconate (Peridex 0.12% Oral Kit) 15 ml OROPHARYNG BID@0800, 2000 [facility] Dextrose (D50w Vial) 50 ml IV.PUSH UNSCH PRN PRN Reason: PER HYPOGLYCEMIA PROTOCOL Duloxetine HCl (Cymbalta) 30 mg PO DAILY [facility] Last Admin: 08/11/18 09:13 Dose: 30 mg Finasteride (Proscar) 5 mg PO DAILY@1800 [facility] Last Admin: 08/10/18 17:43 Dose: 5 mg Furosemide (Lasix Inj) 40 mg IV.PUSH BID@0900,1800 [facility] Last Admin: 08/11/18 09:18 Dose: 40 mg Gabapentin (Neurontin) 300 mg PO Q6HR [facility] Last Admin: 08/11/18 13:33 Dose: 300 mg Glucagon (Glucagon Inj) 1 mg OTHER PRN PRN PRN Reason: for Hypoglycemia Protocol Guaifenesin (Mucinex Er) 600 mg PO BID [facility] Last Admin: 08/11/18 09:12 Dose: 600 mg Heparin Sodium (Porcine) (Heparin Inj) 5,000 units SQ Q12H [facility] Last Admin: 08/11/18 09:13 Dose: 5,000 units Linezolid (Zyvox 600 Mg Premix) 300 mls @ 300 mls/hr IV.SIG Q12H [facility] Last Infusion: 08/11/18 04:15 Dose: Infused Cefepime HCl 1,000 mg/ Sodium (Chloride) 100 mls @ 200 mls/hr IV.SIG Q8H [facility] Last Infusion: 08/11/18 07:03 Dose: Infused Fentanyl (Fentanyl 10 Mcg/Ml Premix Drip) 2,500 mcg in 250 mls @ 5 mls/hr IV.SIG TITRATE PRN; Protocol PRN Reason: Per Protocol Midazolam HCl (Versed Inj) 50 mg in 50 mls @ 2 mls/hr IV.CONT TITRATE PRN; Protocol PRN Reason: Per Protocol Norepinephrine Bitartrate 16 (mg/ Sodium Chloride) 250 mls @ 1.87 mls/hr IV.CONT TITRATE PRN; Protocol PRN Reason: See Protocol Insulin Aspart (Novolog Insulin Correctional Sugar Inj) 0 unit SQ Q6HR FILOMENA; Protocol Insulin Detemir (Levemir Inj) 5 unit SQ BID [facility] Lactulose (Lactulose Liq) 30 ml PO DAILY PRN PRN Reason: SEVERE CONSITIPATION Lansoprazole (Prevacid Solutab) 30 mg NG/OG DAILY [facility] Miscellaneous Medication () 1 each OROPHARYNG 0000,0400,1200,1600 [facility] Last Admin: 08/11/18 13:34 Dose: 1 each Ondansetron HCl (Zofran Inj) 4 mg IV.PUSH Q6H PRN PRN Reason: NAUSEA OR VOMITING Polyethylene Glycol (Miralax) 17 gm PO BID [facility] Last Admin: 08/11/18 09:14 Dose: 17 gm Potassium Chloride (K-Dur) 20 meq PO BID [facility] Last Admin: 08/11/18 09:13 Dose: 20 meq Senna/Docusate Sodium (Isabella-Colace) 1 tab PO BID [facility] Last Admin: 08/11/18 09:13 Dose: 1 tab Sennosides (Senokot) 17.2 mg PO Q12H PRN PRN Reason: Moderate Constipation Tamsulosin HCl (Flomax) 0.4 mg PO BID [facility] Last Admin: 08/11/18 09:13 Dose: 0.4 mg Terbutaline Sulfate (Brethine Inj) 1 mg SQ UNSCH PRN PRN Reason: For Extravasation Allergies Allergy/AdvReac Type Severity Reaction Status Date / Time No Known Allergies Allergy Verified 08/06/18 01:24 Home Medications Medication Instructions Recorded Confirmed Type RX: aspirin 325 mg PO DAILY 06/01/18 06/01/18 History RX: atorvastatin [Lipitor] 20 mg PO HS 06/01/18 08/06/18 History RX: duloxetine [Cymbalta] 30 mg PO DAILY 06/01/18 06/01/18 History RX: dutasteride [Avodart] 0.5 mg PO QPM 06/01/18 06/01/18 History RX: gabapentin 300 mg PO Q6HR 06/01/18 06/01/18 History RX: pantoprazole [Protonix] 40 mg PO DAILY 06/01/18 06/01/18 History RX: tamsulosin [Flomax] 0.4 mg PO BID 06/01/18 08/06/18 History Advance Directives Advance Directives Date on File: 06/15/18 Healthcare Surrogate: Yes Health Care Surrogate Name and Number: Lindsey Chand, sister: [phone] Today's verbally stated goals: Patient is not capacitated to make his own health care decisions, uncertain if he will regain capacity. Family/friends goals: HCSLindsey elects Intubation Only code status. She is certain patient would not want amputation even if it meant would occur sooner due to infection. Ethical and Legal Issues: Patient is not capacitated to make his own health care decisions, uncertain if he will regain capacity. [facility] if [facility] have any written advance directives, copy of written designation of health care surrogate received dated 06/15/18 naming his sister, Lindsey Chand as health care surrogate # [phone]. Physical Exam Vital Signs: Vital Signs - 24 hr 08/10/18 14:00 08/10/18 14:54 08/10/18 15:00 Temperature Pulse Rate 84 83 84 Respiratory Rate 15 16 15 Blood Pressure 125/61 117/61 Pulse Oximetry 93 L 92 L 08/10/18 16:00 08/10/18 17:00 08/10/18 18:00 Temperature 98.1 F Pulse Rate 84 85 83 Respiratory Rate 15 16 17 Blood Pressure 111/58 L 110/56 L 116/56 L Pulse Oximetry 93 L 92 L 91 L 08/10/18 18:52 08/10/18 19:00 08/10/18 19:33 Temperature Pulse Rate 83 Respiratory Rate 17 Blood Pressure 124/61 Pulse Oximetry 93 L 90 L 93 L 08/10/18 19:44 08/10/18 20:00 08/10/18 21:00 Temperature 97.6 F Pulse Rate 79 82 82 Respiratory Rate 16 16 16 Blood Pressure 128/58 L 129/60 Pulse Oximetry 94 L 96 08/10/18 21:41 08/10/18 22:00 08/10/18 23:00 Temperature Pulse Rate 76 78 Respiratory Rate 14 14 Blood Pressure 123/56 L 119/57 L Pulse Oximetry 97 94 L 96 08/11/18 00:00 08/11/18 01:00 08/11/18 01:43 Temperature 97.9 F Pulse Rate 76 70 Respiratory Rate 14 15 Blood Pressure 116/58 L 119/56 L Pulse Oximetry 95 95 98 08/11/18 02:00 08/11/18 03:00 08/11/18 03:31 Temperature Pulse Rate 62 74 71 Respiratory Rate 15 16 16 Blood Pressure 102/51 L 115/58 L Pulse Oximetry 95 96 95 08/11/18 04:00 08/11/18 05:00 08/11/18 06:00 Temperature 97.6 F Pulse Rate 75 67 64 Respiratory Rate 15 15 16 Blood Pressure 108/54 L 119/58 L 116/57 L Pulse Oximetry 94 L 94 L 96 08/11/18 07:00 08/11/18 08:00 08/11/18 08:03 Temperature 97.2 F L Pulse Rate 64 67 71 Respiratory Rate 14 18 17 Blood Pressure 116/59 L 131/60 Pulse Oximetry 95 96 96 08/11/18 09:00 08/11/18 10:00 08/11/18 12:18 Temperature Pulse Rate 80 71 Respiratory Rate 22 17 18 Blood Pressure 128/58 L 136/63 Pulse Oximetry 89 L 96 100 I&O: Intake & Output 08/09/18 08/10/18 08/11/18 08/12/18 06:59 06:59 06:59 06:59 Intake Total 1880 / 1880 1010 / 1010 1280 / 1280 100 / 100 Balance 1880 / 1880 1010 / 1010 1280 / 1280 100 / 100 Weight 173.2 kg 166.9 kg 166.9 kg Physical Exam: CONSTITUTIONAL/GENERAL: This is a morbidly obese gentleman, critically ill patient, on [facility] vent. TUBES/LINES/DRAINS: ETT, OG, PIV right, podus boots. SKIN: No jaundice, rashes, or lesions. Ecchymoses on upper extremities. Dressing noted on right foot. Skin temperature cool. HEAD: Atraumatic. Normocephalic. EYES: Pupils equal and round. No scleral icterus. No injection or drainage. ENT: Unable to assess hearing. Nose without bleeding or purulent drainage. Throat difficult to visualize due to tubes. NECK: Trachea midline. CARDIOVASCULAR: Regular rate and rhythm without murmurs, gallops, or rubs. RESPIRATORY/CHEST: On mech vent, crackles noted right > left, diminished breath sounds bilaterally. GASTROINTESTINAL: Abdomen protuberant, soft. No guarding. Bowel sounds present. GENITOURINARY: Without palpable bladder distension. MUSCULOSKELETAL: Right foot with dressing in place. Podus boots in place. LYMPHATICS: Not examined. NEUROLOGICAL: Sedated. PSYCHIATRIC: Sedated. Diagnostic Tests Laboratory: Laboratory Results - last 72 hr 08/08/18 08/09/18 08/09/18 20:02 06:49 06:49 WBC 8.1 RBC 2.99 L Hgb 8.4 L Hct 26.1 L MCV 87.2 MCH 28.3 MCHC 32.4 RDW 16.5 Plt Count 149 L MPV 8.0 Neut % (Auto) 71.9 H Lymph % (Auto) 15.2 Milam % (Auto) 7.6 Eos % (Auto) 5.0 H Baso % (Auto) 0.3 Neut # (Auto) 5.8 Lymph # (Auto) 1.2 Milam # (Auto) 0.6 Eos # (Auto) 0.4 Baso # (Auto) 0.0 WBC Differential . Differential Comment Auto diff final PT INR Puncture Site Patient Temperature O2 Saturation ABG pH ABG pCO2 ABG pO2 ABG HCO3 ABG O2 Content ABG Base Excess ABG Methemoglobin Parker Test Hemoglobin Carboxyhemoglobin O2 Delivery Device Vent Setting Inspired O2 Critical Value Sodium 142 Potassium 4.1 Chloride 109 H Carbon Dioxide 24.5 Anion Gap 9 BUN 66 H Creatinine 1.42 H Estimated GFR 49 L POC Glucose 285 H Random Glucose 184 H Calcium 7.9 L Phosphorus 3.6 Magnesium 2.5 Total Bilirubin 0.4 AST 7 L ALT 17 Alkaline Phosphatase 66 Total Creatine Kinase Troponin I B-Natriuretic Peptide Total Protein 7.0 Albumin 1.8 L Procalcitonin Nasal Screen MRSA (PCR) 08/09/18 08/09/18 08/09/18 08:17 12:36 16:21 WBC RBC Hgb Hct MCV MCH MCHC RDW Plt Count MPV Neut % (Auto) Lymph % (Auto) Milam % (Auto) Eos % (Auto) Baso % (Auto) Neut # (Auto) Lymph # (Auto) Milam # (Auto) Eos # (Auto) Baso # (Auto) WBC Differential Differential Comment PT INR Puncture Site Patient Temperature O2 Saturation ABG pH ABG pCO2 ABG pO2 ABG HCO3 ABG O2 Content ABG Base Excess ABG Methemoglobin Parker Test Hemoglobin Carboxyhemoglobin O2 Delivery Device Vent Setting Inspired O2 Critical Value Sodium Potassium Chloride Carbon Dioxide Anion Gap BUN Creatinine Estimated GFR POC Glucose 181 H 182 H 183 H Random Glucose Calcium Phosphorus Magnesium Total Bilirubin AST ALT Alkaline Phosphatase Total Creatine Kinase Troponin I B-Natriuretic Peptide Total Protein Albumin Procalcitonin Nasal Screen MRSA (PCR) 08/09/18 08/09/18 08/09/18 18:00 18:25 19:14 WBC RBC Hgb Hct MCV MCH MCHC RDW Plt Count MPV Neut % (Auto) Lymph % (Auto) Milam % (Auto) Eos % (Auto) Baso % (Auto) Neut # (Auto) Lymph # (Auto) Milam # (Auto) Eos # (Auto) Baso # (Auto) WBC Differential Differential Comment PT INR Puncture Site Left radial Patient Temperature 98.6 O2 Saturation 85 L* ABG pH 7.30 L ABG pCO2 50 H ABG pO2 53 L* ABG HCO3 24 ABG O2 Content 10.4 L ABG Base Excess -1.2 ABG Methemoglobin 1.4 Parker Test Present Hemoglobin 8.6 L Carboxyhemoglobin 1.3 O2 Delivery Device Bipap Vent Setting Inspired O2 45 Critical Value Yes Sodium Potassium Chloride Carbon Dioxide Anion Gap BUN Creatinine Estimated GFR POC Glucose Random Glucose Calcium Phosphorus Magnesium Total Bilirubin AST ALT Alkaline Phosphatase Total Creatine Kinase 28 L Troponin I Less than 0.02 L B-Natriuretic Peptide Total Protein Albumin Procalcitonin Nasal Screen MRSA (PCR) Not detected 08/09/18 08/09/18 08/09/18 19:14 19:14 20:44 WBC RBC Hgb Hct MCV MCH MCHC RDW Plt Count MPV Neut % (Auto) Lymph % (Auto) Milam % (Auto) Eos % (Auto) Baso % (Auto) Neut # (Auto) Lymph # (Auto) Milam # (Auto) Eos # (Auto) Baso # (Auto) WBC Differential Differential Comment PT INR Puncture Site Patient Temperature O2 Saturation ABG pH ABG pCO2 ABG pO2 ABG HCO3 ABG O2 Content ABG Base Excess ABG Methemoglobin Parker Test Hemoglobin Carboxyhemoglobin O2 Delivery Device Vent Setting Inspired O2 Critical Value Sodium Potassium Chloride Carbon Dioxide Anion Gap BUN Creatinine Estimated GFR POC Glucose 220 H Random Glucose Calcium Phosphorus Magnesium Total Bilirubin AST ALT Alkaline Phosphatase Total Creatine Kinase Troponin I B-Natriuretic Peptide 188 H Total Protein Albumin Procalcitonin 0.17 H Nasal Screen MRSA (PCR) 08/10/18 08/10/18 08/10/18 05:35 05:35 05:35 WBC 8.2 RBC 3.02 L Hgb 8.6 L Hct 26.3 L MCV 86.9 MCH 28.5 MCHC 32.8 RDW 16.3 Plt Count 141 L MPV 8.3 Neut % (Auto) 72.7 H Lymph % (Auto) 15.2 Milam % (Auto) 7.0 Eos % (Auto) 4.5 H Baso % (Auto) 0.6 Neut # (Auto) 6.0 Lymph # (Auto) 1.2 Milam # (Auto) 0.6 Eos # (Auto) 0.4 Baso # (Auto) 0.0 WBC Differential . Differential Comment Auto diff final PT 11.2 INR 1.1 Puncture Site Patient Temperature O2 Saturation ABG pH ABG pCO2 ABG pO2 ABG HCO3 ABG O2 Content ABG Base Excess ABG Methemoglobin Parker Test Hemoglobin Carboxyhemoglobin O2 Delivery Device Vent Setting Inspired O2 Critical Value Sodium 142 Potassium 4.2 Chloride 108 H Carbon Dioxide 25.0 Anion Gap 9 BUN 64 H Creatinine 1.51 H Estimated GFR 45 L POC Glucose Random Glucose 165 H Calcium 8.5 Phosphorus 3.8 Magnesium 2.5 Total Bilirubin 0.4 AST 5 L ALT 15 Alkaline Phosphatase 67 Total Creatine Kinase Troponin I B-Natriuretic Peptide Total Protein 7.1 Albumin 2.0 L Procalcitonin Nasal Screen MRSA (PCR) 08/10/18 08/10/18 08/10/18 07:35 12:41 17:41 WBC RBC Hgb Hct MCV MCH MCHC RDW Plt Count MPV Neut % (Auto) Lymph % (Auto) Milam % (Auto) Eos % (Auto) Baso % (Auto) Neut # (Auto) Lymph # (Auto) Milam # (Auto) Eos # (Auto) Baso # (Auto) WBC Differential Differential Comment PT INR Puncture Site Patient Temperature O2 Saturation ABG pH ABG pCO2 ABG pO2 ABG HCO3 ABG O2 Content ABG Base Excess ABG Methemoglobin Parker Test Hemoglobin Carboxyhemoglobin O2 Delivery Device Vent Setting Inspired O2 Critical Value Sodium Potassium Chloride Carbon Dioxide Anion Gap BUN Creatinine Estimated GFR POC Glucose 156 H 146 H 231 H Random Glucose Calcium Phosphorus Magnesium Total Bilirubin AST ALT Alkaline Phosphatase Total Creatine Kinase Troponin I B-Natriuretic Peptide Total Protein Albumin Procalcitonin Nasal Screen MRSA (PCR) 08/10/18 08/11/18 08/11/18 20:58 04:15 04:15 WBC 7.2 RBC 2.99 L Hgb 8.5 L Hct 26.0 L MCV 86.9 MCH 28.6 MCHC 32.9 RDW 16.4 Plt Count 130 L MPV 8.7 Neut % (Auto) 68.2 Lymph % (Auto) 19.0 Milam % (Auto) 7.3 Eos % (Auto) 4.6 H Baso % (Auto) 0.9 Neut # (Auto) 4.9 Lymph # (Auto) 1.4 Milam # (Auto) 0.5 Eos # (Auto) 0.3 Baso # (Auto) 0.1 WBC Differential . Differential Comment Auto diff final PT INR Puncture Site Patient Temperature O2 Saturation ABG pH ABG pCO2 ABG pO2 ABG HCO3 ABG O2 Content ABG Base Excess ABG Methemoglobin Parker Test Hemoglobin Carboxyhemoglobin O2 Delivery Device Vent Setting Inspired O2 Critical Value Sodium 141 Potassium 4.7 Chloride 109 H Carbon Dioxide 26.3 Anion Gap 6 BUN 65 H Creatinine 1.69 H Estimated GFR 40 L POC Glucose 198 H Random Glucose 175 H Calcium 7.9 L Phosphorus 4.0 Magnesium 2.5 Total Bilirubin 0.3 AST 6 L ALT 12 Alkaline Phosphatase 66 Total Creatine Kinase Troponin I B-Natriuretic Peptide Total Protein 6.9 Albumin 1.8 L Procalcitonin Nasal Screen MRSA (PCR) 08/11/18 08/11/18 08/11/18 08:27 10:16 12:11 WBC RBC Hgb Hct MCV MCH MCHC RDW Plt Count MPV Neut % (Auto) Lymph % (Auto) Milam % (Auto) Eos % (Auto) Baso % (Auto) Neut # (Auto) Lymph # (Auto) Milam # (Auto) Eos # (Auto) Baso # (Auto) WBC Differential Differential Comment PT INR Puncture Site Right radial Patient Temperature 98.6 O2 Saturation 96 ABG pH 7.32 L ABG pCO2 48 H ABG pO2 115 ABG HCO3 24 ABG O2 Content 17.7 ABG Base Excess -0.9 ABG Methemoglobin 1.6 Parker Test Present Hemoglobin 13.1 Carboxyhemoglobin 1.0 O2 Delivery Device Bipap Vent Setting Ipap 15 epap +5 Inspired O2 45 Critical Value No Sodium Potassium Chloride Carbon Dioxide Anion Gap BUN Creatinine Estimated GFR POC Glucose 171 H 166 H Random Glucose Calcium Phosphorus Magnesium Total Bilirubin AST ALT Alkaline Phosphatase Total Creatine Kinase Troponin I B-Natriuretic Peptide Total Protein Albumin Procalcitonin Nasal Screen MRSA (PCR) Result Diagrams: 08/11/18 04:15 08/11/18 04:15 Microbiology: Microbiology 08/07/18 22:45 Aerobic Blood Culture - Preliminary Blood - Line No growth in 4 days Anaerobic Blood Culture - Preliminary No growth in 4 days 08/07/18 16:40 Aerobic Blood Culture - Preliminary Blood - Peripheral No growth in 4 days Anaerobic Blood Culture - Preliminary No growth in 4 days 08/07/18 16:45 Aerobic Blood Culture - Preliminary Blood - Peripheral No growth in 4 days Anaerobic Blood Culture - Preliminary No growth in 4 days Imaging: Foot X-Ray 08/06/18 00:00 CONCLUSION: Destructive changes at the fifth metatarsal head and possibly the fourth metatarsal head. Extremity Arterial Study 08/08/18 00:00 CONCLUSION: 1. Moderate reduction of the toe brachial indices bilaterally suggesting microangiopathic disease. 2. ABIs within the normal range bilaterally. Foot MRI 08/08/18 00:00 CONCLUSION: 1. Findings consistent with marrow edema and osteomyelitis involving the fourth and fifth metatarsals. The base of the fifth is spared. Proximal one third of the fourth is spared. Venous Doppler Study 08/11/18 00:00 CONCLUSION: 1. Negative for deep venous thrombosis Chest X-Ray 08/11/18 11:42 CONCLUSION: Complete opacification of the thorax, significantly limits the study. Procedures: * 08/11/18 - Intubated. Patient/Family Conference Present at Family Conference: Spoke with Frances via phone followed by sister lindsey via phone. Family Conference Time: 60 Family Conference Location: Telephone Issues Discussed: * Palliative care role, purpose, approach * Additional medical, psychosocial, and spiritual history * Patients general health, functional status, and cognitive changes in the months leading up to the current hospitalization * Patient/family understanding of the current medical problems * Patient/family understanding of prognosis * Patients goals of care as best understood from advance directives and/or conversations and/or values * Current medical treatment options and benefits/burdens of those options * Likely scenarios comparing ongoing aggressive care with a transition to comfort measures only * Questions answered to the best of my ability * Palliative care contact information provided Assessment and Plan Pertinent Non-Medical Issues: Psychosocial: . Supported by his 2 sisters, Lindsey and Frances who live in [place]. Spiritual: None. Legal:Patient is not capacitated to make his own health care decisions, uncertain if he will regain capacity. [facility] to see if they have any written advance directives, copy of written designation of health care surrogate received dated 06/15/18 naming his sister, Lindsey Chand as health care surrogate # [phone]. Ethical issues impacting care: No known concerns at this time. Important Contacts: * Lindsey Chand, sister/ [facility]: [phone] * Ria Alegria, sister: [phone] Prognosis: Overall prognosis appears poor for meaningful recovery. Code Status: Alternative Code (Intubation Only.) Plan: * Patient is not capacitated to make his own health care decisions, uncertain if he will regain capacity. Called [facility] to see if they have any written advance directives, copy of written designation of health care surrogate received dated 06/15/18 naming his sister, Lindsey Chand as health care surrogate # [phone]. * INTUBATION ONLY * Called to provide medical update to both sisters, Frances and Lindsey. Reviewed critical illness and above information. Frances indicates she may try to get to [place] in the next 24-48 hours. Lindsey was aware he designated her as health care surrogate, she indicates she talks to the patient everyday. Lindsey indicates he has recently been telling her that he did not think he would recover and that he wants to be allowed to when it is his time. She therefore elects intubation only code status. She is certain he would NOT want amputation even if it meant he would sooner related to infection. She indicates feeling that he is too weak to survive surgery. * Family does NOT want any information shared with friends of patient, including but not limited to Elsie. * SYMPTOMS: Pain: due to chronic debility, osteomyelitis, wounds, pneumonia, tubes, etc. No obvious signs of pain today, on Propofol. Will continue to monitor. Dyspnea: complete opacification of both lungs on CXr today, pneumonia, ARDS. On mech vent. No new medication recommendations at this time. * Palliative care number provided. * Palliative care will continue to follow to assist with symptom management and clarification of goals of medical treatment as needed. Appreciation Thank you for the opportunity to participate in the care of Armando Meléndez. Attestation Attestation: To help prompt me to consider important information that might be impacting today's encounter and assessment, information from prior notes written by myself or my colleagues may have been "brought forward" into today's note. My signature on this note, however, is an attestation that I personally performed the exam, history, and/or decision-making noted today, and, unless otherwise indicated, the interactions with patient, family, and staff as well as the review of records all occurred today. I also attest that the listed assessment and stated plan reflect my best clinical judgment today based on the combination of historical information, prior notes, and today's exam/ interactions. 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
[2018-08-11 14:41] LABS: ABG Base Excess -1.4 mmol/L (-2-2); ABG PCO2 46 mmHg (38-42); ABG PO2 56 mmHG (61-120)
--- NOTE | 2018-08-11 15:44 | CT ---
EXAM DATE: 08/11/2018 3:09 PM EDT AGE/SEX: 73 years / Male INDICATIONS: Pneumonia, short of breath. CLINICAL DATA: This is the patient's initial encounter. Patient reports that signs and symptoms have been present for 1 day and indicates a pain score of Nonresponsive. MEDICAL/SURGICAL HISTORY: Diabetes. Hypertension. None. RADIATION DOSE: 20.94 CTDI (mGy) ; Patient body habitus COMPARISON: [facility], CHEST 1V SINGLE AP, 08/11/2018. . TECHNIQUE: Multiple contiguous axial images were obtained through the chest without contrast. Image s were obtained in suspended respiration using multiple row detector helical technique. Using automa tatyana exposure control and adjustment of the mA and/or kV according to patient size, radiation dose was kept as low as reasonably achievable to obtain optimal diagnostic quality images. DICOM format imag e data is available electronically for review and comparison. FINDINGS: There are large bilateral pleural effusions. Cardiomegaly, atherosclerotic calcification of the aorta and coronary artery calcification is noted. Endotracheal tube tip terminates above the javier. Revie w of bone windows demonstrate degenerative changes of the spine. A left subclavian central venous cat heter is noted and the tip terminates in the SVC. Review of lung windows demonstrates dense bilateral parenchymal consolidation most confluent in the left upper lobe posteriorly and left and right lower lobes. Patchy right upper lobe and middle lobe infiltrate is also seen. Right sided gynecomastia is suspected. CONCLUSION: 1. Diffuse bilateral pulmonary infiltrates and effusions. 2. Atherosclerosis. Electronically signed by: Oneil Jones MD 08/11/2018 3:43 PM EDT
--- NOTE | 2018-08-11 15:54 | P.DIET ---
Nutritional Evaluation Type of nutrition evaluation: follow-up Nutrition consult regarding: Tube Feeding (ordered 08/11) [place] [facility] [place]: Pt reassessed per SCCM and ASPEN guidelines for critically ill pts with a BMI > 30. Objective - Diagnosis PNA - Objective % IBW: 199 (IBW = 184#) Body Weight Used for Calculations: IBW (83.6 kg used for protein needs), Actual (166.9 kg for kcaloric needs) Energy Needs - Lower Range (kCal/kg): 11 Energy Needs - Upper Range (kCal/kg): 14 Lower Limit kCal/kg (kCals): 1,836 Upper Limit kCal/kg (kCals): 2,337 Lower Limit Protein Factor (Grams per Kg): 1.8 Upper Limit Protein Factor (Grams per Kg): 2.2 Lower Protein Needs (Protein): 150 Upper Protein Needs (Protein): 184 Dietitian Reviewed in Medical Record: Curent medications, Intake & Output, Labs , Medical history, Tube feeding, Wound/DTI Diet Order: NPO Wound Care Note: 08/06 Stage 3 pressure injury R Buttock, unstageable pressure injuries to R lateral foot and R heel Objective Comments: PMH: DM, GERD, HLD, HTN, Neuropathy, Obesity Assessment Assessment: Pt was intubated today and now needs TFing to meet nutritional needs. Current order is for Glucerna 1.5 @ 60 mls/hr goal. Assessed per SCCM and ASPEN guidelines and recommend change to Vital High Protein @ 75 mls/hr to provide 1800 kcals, 158 gms protein and 1505 mls of free water. If Glucerna 1.5 is still preferred, recommend the addition of 2 packs Beneprotein tid to meet high protein needs. Recommendations: Vital High Protein @ 75 mls/hr goal Dietitian to Monitor: Intake & Output, Tube feeding tolerance, Wound/skin status , Medical course
[2018-08-11] MEDS ORDERED: Midazolam Inj 5 MG/ML 1 ML Vial ONE ×2 (16:23)
[2018-08-11] MEDS ORDERED: Midazolam Inj 5 MG/ML 1 ML Vial IV.PUSH ONE (16:45)
[2018-08-11] MEDS ORDERED: Lidocaine 1% Inj 50 ML Vial ONE (17:03)
[2018-08-11] MEDS ORDERED: Lidocaine 1%/Epinephrine 1:100,000 Inj 20 ML Vial ONE (17:04)
--- NOTE | 2018-08-11 17:35 | P.PCN ---
Date of procedure: 08/11/18 Pre-op diagnosis: Bilateral pleural effusion/acute respiratory failure Post-op diagnosis: same Procedure: Date of procedure: 08/11/2018 Procedure: #10 [place] chest tube placement Indication: Pleural effusion Details of procedure: Informed consent was obtained from the healthcare proxy. The patient was laid supine. The lateral chest wall was cleaned with ChloraPrep twice. Regional sterile drapes were applied. 1% lidocaine was used for local anesthesia and injected into the subcutaneous and deep muscle tissues. A 0.5 cm skin incision was made with a scalpel blade. Insertion needle was placed angled superiorly and posteriorly and the insertion needle was entered into the pleural space superior to the rib with release of clear yellow fluid. Guidewire was placed in site was dilated. Upon initial insertion of #10 [place] tube, the guidewire kinked. Procedure was halted pressure placed. Again, the insertion needle was placed angled superior and posteriorly and insertion needle was entered into the pleural space superior to the rib with release of at this time saying he was fluid. The site was dilated x2.. A size 10 [place] chest tube was inserted into the pleural cavity with release of serosanguineous currently clearing fluid.. Two-point-0 silk was used to close the wound and to secure the chest tube along with StayFix fixation device.. The chest tube was connected to a Pleur-evac drainage system via vinyl connecting tube. There was no air leak. There was approximately 300 cc serosanguineous output from the chest tube. Estimated blood loss: 5 cc Complications: None. Stat chest x-ray revealed pigtail catheter barely within the pleural cavity but site continues to drain. We will keep in place at the present time. Follow-up chest x-ray in a.m. 08/12.
--- NOTE | 2018-08-11 17:47 | P.PNPL ---
Subjective Interval history: 73 YOWM with COPD,SHEELA,Resp insuff Developed RF, intubated CT chest showed Bilat infilt and pl eff had Rt chest tube placed, draining Sedated with Fentanyl. Physical Exam Vital signs: Vital Signs 08/10/18 18:00 08/10/18 18:52 08/10/18 19:00 Temperature Pulse Rate 83 83 Respiratory Rate 17 17 Blood Pressure 116/56 L 124/61 Pulse Oximetry 91 L 93 L 90 L 08/10/18 19:33 08/10/18 19:44 08/10/18 20:00 Temperature 97.6 F Pulse Rate 79 82 Respiratory Rate 16 16 Blood Pressure 128/58 L Pulse Oximetry 93 L 94 L 08/10/18 21:00 08/10/18 21:41 08/10/18 22:00 Temperature Pulse Rate 82 76 Respiratory Rate 16 14 Blood Pressure 129/60 123/56 L Pulse Oximetry 96 97 94 L 08/10/18 23:00 08/11/18 00:00 08/11/18 01:00 Temperature 97.9 F Pulse Rate 78 76 70 Respiratory Rate 14 14 15 Blood Pressure 119/57 L 116/58 L 119/56 L Pulse Oximetry 96 95 95 08/11/18 01:43 08/11/18 02:00 08/11/18 03:00 Temperature Pulse Rate 62 74 Respiratory Rate 15 16 Blood Pressure 102/51 L 115/58 L Pulse Oximetry 98 95 96 08/11/18 03:31 08/11/18 04:00 08/11/18 05:00 Temperature 97.6 F Pulse Rate 71 75 67 Respiratory Rate 16 15 15 Blood Pressure 108/54 L 119/58 L Pulse Oximetry 95 94 L 94 L 08/11/18 06:00 08/11/18 07:00 08/11/18 08:00 Temperature 97.2 F L Pulse Rate 64 64 67 Respiratory Rate 16 14 18 Blood Pressure 116/57 L 116/59 L 131/60 Pulse Oximetry 96 95 96 08/11/18 08:03 08/11/18 09:00 08/11/18 10:00 Temperature Pulse Rate 71 80 71 Respiratory Rate 17 22 17 Blood Pressure 128/58 L 136/63 Pulse Oximetry 96 89 L 96 08/11/18 11:00 08/11/18 12:00 08/11/18 12:18 Temperature 98.0 F Pulse Rate 68 83 Respiratory Rate 18 Blood Pressure 125/58 L 131/60 Pulse Oximetry 98 99 100 08/11/18 13:00 08/11/18 14:00 08/11/18 15:00 Temperature Pulse Rate 70 65 66 Respiratory Rate 18 18 20 Blood Pressure 113/55 L 120/58 L 107/54 L Pulse Oximetry 100 99 99 08/11/18 15:51 Temperature Pulse Rate Respiratory Rate Blood Pressure Pulse Oximetry 97 Intake & Output 08/10/18 08/11/18 08/11/18 18:59 06:59 18:59 Intake Total 880 / 880 400 / 400 100 / 100 Balance 880 / 880 400 / 400 100 / 100 Weight 166.9 kg Intake: IV 400 / 400 400 / 400 100 / 100 Maxipime Inj 1,000 MG In NS Inj 100 / 100 100 / 100 100 / 100 100 ML @ 200 mls/hr IV.SIG Q8H SHAHEED Rx#:[id number] Zyvox 600 mg Premix 300 ML @ 300 / 300 300 / 300 300 mls/hr IV.SIG Q12H SHAHEED Rx#: [id number] Oral 480 / 480 Other: # Voids 5 4 # Bowel Movements 0 GENERAL: Obese WM, on Vent, sedated with Fentanyl. SKIN: Warm and dry. HEAD: Normocephalic. EYES: No scleral icterus. No injection or drainage. NECK: Supple, trachea midline. No JVD or lymphadenopathy. CARDIOVASCULAR: Regular rate and rhythm without murmurs, gallops, or rubs. RESPIRATORY: Breath sounds equal bilaterally. No accessory muscle use. Rt chest tube draining GASTROINTESTINAL: Abdomen soft, non-tender, nondistended. MUSCULOSKELETAL: No cyanosis, or edema. BACK: Nontender without obvious deformity. No CVA tenderness. - Urinary Catheter Management Indwelling Urethral Catheter Cath placed during this visit: yes Reason for continuing: Hourly intake/output Insertion date: 08/11/18 Insertion time: 12:00 Assessment and Plan - Plan IMPRESSION: 1. Respiratory failure. 2. Hypoxia. 3. Morbid obesity. 4. Likely sleep apnea. 5. Osteomyelitis. 6. Pneumonia. 7. Pulmonary edema. 8. Renal insufficiency. 9. Pleural effusion, s/p rt chest tube PLAN: Vent support Sedation with Fentanyl Rt chest tube to suction. Diurease Monitor Lytes Abx per ID
--- NOTE | 2018-08-11 17:51 | XR ---
EXAM DATE: 08/11/2018 4:50 PM EDT AGE/SEX: 73 years / Male INDICATIONS: Right sided chest tube placement CLINICAL DATA: This is the patient's initial encounter. Patient reports that signs and symptoms have been present for 1 day and indicates a pain score of Nonresponsive. MEDICAL/SURGICAL HISTORY: . Diabetes mellitus. GERD. Hyperlipidemia. Hypertension. Neuropathy. Obesity None. COMPARISON: [facility] [place], CHEST 1V SINGLE AP, 08/11/2018. . FINDINGS: Signal view of the chest show severe bilateral perihilar vascular congestion. The heart is enlarged. The left lung is much better ventilated on this film of the previous study. The ET tube and NG tube a re both in good position. There is a right-sided pigtail catheter good position. CONCLUSION: Left lung is much better aerated. Right side chest tube in good position. Diffuse perihilar vascular congestion with enlarged heart Electronically signed by: John Nieves MD 08/11/2018 5:49 PM EDT
[2018-08-11] MEDS: Bumetanide Inj 25 MG/100 ML BAG IV.CONT SCH (18:14)
[2018-08-11] MEDS: Finasteride 5 MG Tablet PO SCH (18:14)
[2018-08-11] MEDS: fentaNYL 10 mcg/mL Premix Drip 2,500 MCG/250 ML BAG IV.SIG PRN (18:45)
[2018-08-11] MEDS: Chlorhexidine 0.12% Oral Kit 15 ML UDC OROPHARYNG SCH (19:51)
[2018-08-11] MEDS ORDERED: Chlorhexidine 0.12% Oral Kit 15 ML UDC OROPHARYNG SCH (20:00)
[2018-08-11] MEDS: Carboxymethylcellulose 0.5% Opth Drops 15 ML Bottle EACH EYE SCH (20:15)
[2018-08-11 20:17] LABS: Calcium 8.4 mg/dL (8.5-10.1); Carbon Dioxide 23.4 meq/L (21.0-32.0); Potassium 4.4 meq/L (3.5-5.1)
[2018-08-11 20:42] LABS: RBC,Pleural Fluid 26340 /mm3 (0-0)
[2018-08-11 20:49] LABS: Monocytes,Pleural Fluid 25 %; Neutrophils,Pleural Fluid 75 %
[2018-08-12 03:57] LABS: Baso # (Auto) 0.1 th/mm3 (0.0-0.2); Eos # (Auto) 0.4 th/mm3 (0.0-0.4); Hematocrit 25.7 % (39.0-51.0); Hemoglobin 8.3 gm/dL (13.0-17.0); Lymph # (Auto) 1.6 th/mm3 (1.0-4.8); Lymph % (Auto) 20.9 % (9.0-44.0); Mean Corpuscular HGB Conc 32.5 % (32.0-36.0); Mean Corpuscular Hemoglobin 28.3 pg (27.0-34.0); Mean Corpuscular Volume 87.1 fL (80.0-100.0); Mean Platelet Volume 8.6 fL (7.0-11.0); Mono # (Auto) 0.6 th/mm3 (0.0-0.9); Mono % (Auto) 8.4 % (0.0-8.0); Neut % (Auto) 64.7 % (16.0-70.0); Platelet Count 145 th/mm3 (150-450); Red Blood Count 2.95 mil/mm3 (4.50-5.90); Red Cell Distribution Width 16.5 % (11.6-17.2); White Blood Count 7.7 th/mm3 (4.0-11.0)
[2018-08-12] MEDS: Oral Hygiene Kit OROPHARYNG SCH ×4 (03:57→23:18)
[2018-08-12] MEDS: Chlorhexidine Gluconate 2% 1 Pack (2 Cloths) TOPICAL SCH (03:57)
[2018-08-12 04:10] LABS: Albumin 1.8 g/dL (3.4-5.0); Anion Gap 9 meq/L (5-15); Aspartate Aminotransferase 12 U/L (15-37); Blood Urea Nitrogen 68 mg/dL (7-18); Calcium 8.3 mg/dL (8.5-10.1); Carbon Dioxide 23.5 meq/L (21.0-32.0); Chloride 110 meq/L (98-107); Glomerular Filtration Rate 35 mL/min (>89); Glucose,Random 114 mg/dL (74-106); Magnesium 2.4 mg/dL (1.5-2.5); Potassium 4.4 meq/L (3.5-5.1); Sodium 142 meq/L (136-145)
--- NOTE | 2018-08-12 04:19 | XR ---
EXAM DATE: 08/12/2018 6:00 AM EDT AGE/SEX: 73 years / Male INDICATIONS: Shortness of breath, possible pulmonary disease. CLINICAL DATA: This is the patient's subsequent encounter. Patient reports that signs and symptoms h ave been present for 4 - 6 days and indicates a pain score of Nonresponsive. MEDICAL/SURGICAL HISTORY: Diabetes. Gastroesophageal reflux disease. Hypertension. Hyperlipi demia. None. COMPARISON: [facility] [place], CHEST 1V SINGLE AP, 08/11/2018. . FINDINGS: The cardiac silhouette is enlarged in transverse diameter. Support lines and tubes are in satisfactor y position. There is patchy alveolar disease bilaterally compatible with edema or pneumonia. CONCLUSION: Diffuse edema versus pneumonia. There has been no significant change when compared to the prior exam. Electronically signed by: Herber Randall MD 08/12/2018 4:18 AM EDT
[2018-08-12] MEDS: fentaNYL 10 mcg/mL Premix Drip 2,500 MCG/250 ML BAG IV.SIG PRN ×2 (04:23→20:48)
[2018-08-12 04:27] LABS: Alanine Aminotransferase 13 U/L (12-78); Alkaline Phosphatase 68 U/L (45-117); Phosphorus 2.7 mg/dL (2.5-4.9); Total Protein 7.1 g/dL (6.4-8.2); Troponin I 0.02 ng/mL (0.02-0.05)
[2018-08-12 04:29] LABS: Creatine Kinase 41 U/L (39-308)
[2018-08-12] MEDS: Gabapentin 300 MG Capsule PO SCH ×4 (05:55→23:18)
[2018-08-12] MEDS: Insulin NovoLOG Aspart Correctional Sugar Inj SQ SCH ×4 (05:57→23:18)
--- NOTE | 2018-08-12 06:45 | MB ---
cc: Abbe Montez DO DATE: 08/11/2018 REASON FOR CONSULTATION: Atrial fibrillation. HISTORY OF PRESENT ILLNESS: Armando Meléndez is a 77-year-old male who presented to [facility] Emergency Room on 08/06/2018 due to shortness of breath with hypoxia. The patient is currently intubated and sedated and so information is taken from the chart. Apparently, the patient is not very active and mostly bedbound while at [facility]. He was found to have an episode of shortness of breath with a pulse oximetry of 70% on room air, but refused transport to the ER. He had recurrent shortness of breath and hypoxia and so he was brought to the emergency room. Apparently, he was already started on Zyvox for a lower extremity wound infection as well as started on Levaquin for pneumonia before arrival. On 08/09, he was transferred to the ICU due to respiratory failure and placed on BiPAP. Today, apparently there was concern for ARDS and he was intubated. He was thought to be in atrial fibrillation on telemetry and I was asked to see him for further considerations of this. During my time of seeing him, a chest tube had been placed. PAST MEDICAL HISTORY: 1. Obesity. 2. Depression. 3. Diabetes. 4. GERD. 5. Hypertension. 6. Hyperlipidemia. 7. Neuropathy. PAST SURGICAL HISTORY: Unable to obtain. ALLERGIES: NO KNOWN DRUG ALLERGIES. MEDICATIONS: 1. Lipitor. 2. Gabapentin. 3. Avodart. 4. Protonix. 5. Aspirin. 6. Cymbalta. 7. Flomax. 8. Levemir. 9. Coreg. 10. Norvasc. 11. Novolin R. 12. Hydralazine. FAMILY HISTORY: Unable to obtain. SOCIAL HISTORY: He is a former smoker. Denies alcohol or drug abuse. REVIEW OF SYSTEMS: Unable to obtain as the patient is intubated. PHYSICAL EXAMINATION: VITAL SIGNS: Temperature 98.2, heart rate 53, blood pressure 116/76, respirations 18, pulse oximetry 97% on the ventilator. GENERAL: The patient is currently resting comfortably on the ventilator. HEENT: Head is normocephalic. Eyes are equal and round. NECK: Supple. No JVD at 45 degrees. No carotid bruits heard bilaterally. Carotid upstroke is brisk in nature. HEART: Irregularly irregular. Positive first and second heart sounds with no noted murmurs, gallops or rubs. LUNGS: Decreased breath sounds bilaterally, but no overt wheezes, rales or rhonchi. ABDOMEN: Soft, nontender, nondistended. No organomegaly noted. EXTREMITIES: Show significant wound of the right lower extremity, which is currently covered with a bandage. NEUROLOGIC: Unable to obtain due to the patient currently being intubated and sedated. LABORATORY DATA: Hemoglobin 8.5, hematocrit 26.0, platelets 130. Potassium 4.4, BUN 69, creatinine 1.79. Troponin less than 0.02. IMPRESSION: 1. Respiratory failure leading to intubation. 2. ARDS. 3. Obesity hypoventilation syndrome. 4. Bilateral pleural effusions, status post chest tube. 5. Osteomyelitis, right foot. 6. Questionable atrial fibrillation. RECOMMENDATIONS: 1. Mr. Meléndez went into respiratory failure and has since been intubated by critical care with placement of chest tubes. 2. He appears to be in ARDS. 3. Review of electrocardiogram shows no atrial fibrillation. Telemetry does show some irregularity, but it is questionably a junctional rhythm as it is mostly irregular. This correlates with his previous electrocardiograms. 4. Would not place on anti-coagulation until AFib is proven 5. Agree with palliative care consultation Thank you for allowing me to see Armando Meléndez. If there are any questions, please do not hesitate to call. DO GRICELDA Rubio/familia/molly , 12:11 AM , 12:24 AM RADHA
[2018-08-12] MEDS ORDERED: Midazolam Inj 5 MG/ML 1 ML Vial ONE ×2 (08:22→10:01)
[2018-08-12] MEDS: Aspirin 325 MG Tablet PO SCH (09:25)
[2018-08-12] MEDS: Azithromycin 250 MG Tablet PO SCH (09:25)
[2018-08-12] MEDS: Polyethylene Glycol 3350 17 GM Packet PO SCH ×2 (09:26→20:14)
[2018-08-12] MEDS: Chlorhexidine 0.12% Oral Kit 15 ML UDC OROPHARYNG SCH ×2 (09:26→20:12)
[2018-08-12] MEDS: Heparin - SQ 10,000 UNITS/ML Vial SQ SCH (09:26)
[2018-08-12] MEDS: Senna/Docusate Sodium 8.6/50 MG Tablet PO SCH ×2 (09:26→20:14)
[2018-08-12] MEDS: guaiFENesin 600 MG ER Tablet PO SCH ×2 (09:26→20:14)
[2018-08-12] MEDS: Carboxymethylcellulose 0.5% Opth Drops 15 ML Bottle EACH EYE SCH ×2 (09:27→20:14)
[2018-08-12] MEDS: Insulin Detemir Inj 1,000 UNIT/10 ML Vial SQ SCH ×2 (09:27→20:13)
[2018-08-12] MEDS: amLODIPine 5 MG Tablet PO SCH (09:27)
--- NOTE | 2018-08-12 10:31 | P.PNCC ---
Subjective Subjective Remarks/Hospital Course: 73-year-old male with past medical history significant for morbid obesity, peripheral neuropathy, diabetes mellitus, hyperlipidemia and hypertension. Patient is a long-term resident of [facility] in reportedly is not very active and is mostly bedbound. Patient was brought into the emergency room by EMS from [facility] for shortness of breath and hypoxia. Per report patient had an episode of shortness of breath with O2 sats of 70% on room air however patient refused transport to the ER. Thereafter patient had another episode of shortness of breath and hypoxia. By this time patient had been treated with Zyvox for lower extremity wound for positive MRSA as well as recently started on Levaquin for pneumonia at the halfway [facility]. Patient has a PICC line in place and has been treated with IV antibiotics. On arrival his blood pressure was 145/63, heart rate of 81, O2 sats 97% on 10 L simple mask. His blood gas was unremarkable. His creatinine was 1.93 and previously in May 2018 was 1.83. His chest x-ray showed bilateral lung consolidation possible element of pulmonary edema as well as small bilateral pleural effusion. On 08/09 patient became more hypoxemic again requiring the placement on the BiPAP ventilator and transferred to ICU. Critical care services were consulted for management of respiratory failure. 08/10: Afebrile. Currently on 4 L nasal cannula saturations are 90%. Patient normally wears CPAP/BiPAP at home according to patient. Since seen by Dr. Slim Estevez previous hospitalization. SUBJECTIVE: 08/11: Reconsulted this patient remains on BiPAP. Still appears to be normal sinus rhythm. Echocardiogram revealed dilated LV/LVH, left atrial enlargement. Possible calcified lesion left coronary cusp. Currently on furosemide 40 mg IV twice daily. Likely source of ARDS will likely need intubation. 08/12: intubated yesterday. right chest tube placed with > 1L output. CXR improved on the right, but with persistence of left plural effusion. Also, transthoracic echocardiography has failed to have adequate visualization of cardiac windows to rule in or rule out cardiogenic source of hypoxia. Objective Vital Signs / I&O: Vital Signs 08/11/18 11:00 08/11/18 12:00 08/11/18 12:18 Temperature 36.7 C Pulse Rate 68 83 Respiratory Rate 15 18 18 Blood Pressure 125/58 L 131/60 Pulse Oximetry 98 99 100 10/17/18 13:00 08/11/18 14:00 08/11/18 15:00 Temperature Pulse Rate 70 65 66 Respiratory Rate 18 18 20 Blood Pressure 113/55 L 120/58 L 107/54 L Pulse Oximetry 100 99 99 08/11/18 15:51 08/11/18 16:00 08/11/18 17:00 Temperature 36.7 C Pulse Rate 53 L 51 L Respiratory Rate 18 18 Blood Pressure 116/76 110/60 Pulse Oximetry 97 97 08/11/18 17:57 08/11/18 18:00 08/11/18 19:00 Temperature Pulse Rate 51 L 56 L Respiratory Rate 18 18 Blood Pressure 117/56 L Pulse Oximetry 100 100 08/11/18 20:00 08/11/18 20:35 08/11/18 20:39 Temperature Pulse Rate 59 L Respiratory Rate 18 18 Blood Pressure Pulse Oximetry 95 100 08/11/18 23:07 08/11/18 23:14 08/12/18 00:00 Temperature 36.9 C Pulse Rate 73 Respiratory Rate 19 16 Blood Pressure 110/60 Pulse Oximetry 94 L 94 L 91 L 08/12/18 00:55 08/12/18 03:35 08/12/18 04:00 Temperature 36.8 C Pulse Rate 75 76 Respiratory Rate 18 18 18 Blood Pressure 107/60 Pulse Oximetry 95 95 95 08/12/18 07:38 08/12/18 08:00 08/12/18 09:11 Temperature 37.0 C Pulse Rate 80 78 Respiratory Rate 18 18 18 Blood Pressure 94/61 L Pulse Oximetry 95 94 L Intake & Output 08/11/18 08/12/18 08/12/18 18:59 06:59 18:59 Intake Total 200 / 200 1283 / 1283 100 / 100 Output Total 2530 / 2530 1920 / 1920 Balance -2330 / -2330 -637 / -637 100 / 100 Weight 158.2 kg Intake: IV 200 / 200 950 / 950 100 / 100 Diprivan 1000 mg/100 ml Inj 1, 0 / 0 000 mg In 100 ml @ 5 MCG/KG/MIN 5.007 mls/hr IV.CONT TITRATE PRN Rx#:[id number] Maxipime Inj 1,000 MG In NS Inj 200 / 200 100 / 100 100 / 100 100 ML @ 200 mls/hr IV.SIG Q8H [facility] Rx#:[id number] Zyvox 600 mg Premix 300 ML @ 600 / 600 300 mls/hr IV.SIG Q12H [facility] Rx#: [id number] fentaNYL 10 mcg/mL Premix Drip 250 / 250 2,500 mcg In 250 ml @ 50 MCG/HR 5 mls/hr IV.SIG TITRATE PRN Rx #:[id number] Tube Feeding 133 / 133 Water Bolus Amount 200 / 200 Output: Urine Amount (Catheter) 1949 1500 / 1500 Indwelling Urethral Catheter 1949 1500 / 1500 Chest Tube Drainage 580 / 580 420 / 420 Right Mid-Axillary Chest 580 / 580 420 / 420 Other: # Bowel Movements 0 Result Diagrams: 08/12/18 02:41 08/12/18 02:41 Objective Remarks: GENERAL: 73-year-old male, lying in bed, intubated, sedated SKIN: Cool and dry HEAD: Atraumatic. Normocephalic. EYES: Pupils equal and round. No scleral icterus. No injection or drainage. ENT: No nasal bleeding or discharge. Mucous membranes pink and moist. NECK: Trachea midline. No JVD. CARDIOVASCULAR: Regular rate and rhythm. RESPIRATORY: Diminished breath sounds. Few fine crackles appreciated anteriorly. No wheezing. right chest tube in place with serous output, to suction, no air leak. GASTROINTESTINAL: Abdomen obese and protuberant. no guarding. MUSCULOSKELETAL: Extremities with right lower extremity with destruction of the second/third/fourth digits foot to bone. Currently covered with Juan bandage NEUROLOGICAL: RASS -2. awakens and follows commands. Assessment and Plan - Assessment and Plan Plan: Assessment: 73yM morbidly obese with refractory acute hypoxic and hypercarbic respiratory failure. certainly multifactorial, but it appears that pleural effusions are a large component of this- will proceed with left chest tube and drainage today. Also, cannot exclude cardiogenic component of hypoxia: will need CHIKA to better evaluate valves and cardiac function- particularly diastolic function. remains critically ill, off pathway: remains intubated with hypoxic respiratory failure. Neuro/Psych: Depression Peripheral neuropathy History of right frontal CVA Currently on fentanyl for sedation/analgesia while intubated Goal of RASS -2 Daily sedation vacation Continue acetaminophen 650 every 6 hours as needed fever Morphine sulfate 2 mg IV every 4 hours as needed pain 6 or 10 Gabapentin 300 mg p.o. every 6 hours peripheral neuropathy Duloxetine 30 mg daily for depression continue CV: Essential hypertension Hyperlipidemia History of non-STEMI Continue amlodipine 5 mg daily, carvedilol 3.125 mg twice daily and hydralazine 50 mg 3 times daily for hypertension Continue atorvastatin 20 mg daily for hyperlipidemia Continue furosemide 40 mg IV twice daily Last echo 06/12 revealed LVEF - hard to assess but suspect mildly impaired. Current echocardiogram 06/11 revealed EF around 55%. Dilated LV/LVH and left atrial enlargement. PAP 26 MAC. Possible left coronary cusp calcification. will obtain CHIKA today to better eval valves and function, particularly diastolic function. Resp: Acute hypoxic and hypercarbic respiratory failure OHS Bilateral pleural effusions intubated 06/11. severe bilateral pulmonary infiltrates as well as bilateral large pleural effusions likely cause is multifactorial- cannot rule out cardiogenic component with volume overload and pulmonary edema right chest tube placed 08/11: keep to suction today place left chest tube today Ventilator bundle Titrate to keep saturations greater than 90% Albuterol/ipratropium aerosols every 6 hours with albuterol aerosols every 2 hours as needed dyspnea GI: Gastroesophageal reflux disease Hypoalbuminemia Glucerna 1.5 goal 60 cc an hour Result for GI prophylaxis/home medication pantoprazole 40 mg daily Docusate sodium/senna 1 tablet twice daily for bowel regimen along with polythene glycol 17 g twice daily : BPH Continue tamsulosin 0.4 mg daily for BPH Endo: Diabetes mellitus Currently on sliding scale insulin aspart medium protocol is hours Insulin detemir 5 units twice daily TSH was 2.77 Renal: Chronic kidney disease stage II Renal ultrasound scan revealed increased echogenicity to the right kidney Creatinine slightly increased to 1.69 Monitor urine output Accurate I's and O's Heme: Thrombocytopenia Normocytic anemia Monitor CBCs daily. Follow trends. No indication for transfusion of blood products at this time. 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 Fifth metatarsal head with destruction. Will likely need amputation Followed by podiatry. Access -Right upper extremity PICC line. Prophylaxis -GI -lansoprazole -DVT -heparin subcu Critical care time 51 minutes, exclusive of separately billable procedures.
--- NOTE | 2018-08-12 10:57 | US ---
EXAM DATE: 08/12/2018 12:00 AM EDT AGE/SEX: 73 years / Male INDICATIONS: Left leg swelling. CLINICAL DATA: This is the patient's subsequent encounter. Patient reports that signs and symptoms h ave been present for 2 days and indicates a pain score of Nonresponsive. MEDICAL/SURGICAL HISTORY: . Diabetes. Gastroesophageal reflux disease. Hypertension. Hyperlipid emia. Neuropathy. Pneumonia. MRSA. None. COMPARISON: No prior exams available for comparison. TECHNIQUE: Venous ultrasound of both lower extremities was performed from the inguinal ligament to t he proximal calf. Real-time, color Doppler and spectral tracing, compression and augmentation techni ques were used. FINDINGS: Normal compression of the deep venous system from the inguinal region to the proximal calf . No echogenic clot is seen. Normal response of the venous system to augmentation and respiration. CONCLUSION: 1. The study is negative for lower extremity deep venous thrombosis. Electronically signed by: Oneil Jones MD 08/12/2018 10:56 AM EDT
--- NOTE | 2018-08-12 11:19 | XR ---
EXAM DATE: 08/12/2018 12:00 AM EDT AGE/SEX: 73 years / Male INDICATIONS: Left side chest tube placement. CLINICAL DATA: This is the patient's subsequent encounter. Patient reports that signs and symptoms h ave been present for 4 - 6 days and indicates a pain score of Nonresponsive. MEDICAL/SURGICAL HISTORY: . Diabetes. Gastroesophageal reflux disease. Hypertension. Hyperlipid emia. None. COMPARISON: [facility], CHEST 1V SINGLE AP, 08/12/2018. . FINDINGS: Stable ETT and NGT. Stable right PICC line with tip again obscured centrally. Progression of airspace consolidation in the right lower lung zone. Persistent right upper lung zone patchy airspace disease . Improved diffuse hazy opacity involving the left hemithorax. Cardiac silhouette is enlarged. Remain elliot of the exam is unchanged. CONCLUSION: 1. Stable tubes and lines, as above. 2. Progressive airspace consolidation in the right lung, primarily in the right lower lung zone. 3. Improved hazy opacity in the left hemithorax which may reflect improved layering pleural effusion . Electronically signed by: Philip Wilder MD 08/12/2018 11:17 AM EDT
--- NOTE | 2018-08-12 11:47 | P.PCN ---
Date of procedure: 08/12/18 Pre-op diagnosis: Left pleural effusion Procedure: Percutaneous Pigtail Tube Thoracostomy Procedure Note Left-sided 10 Bengali pigtail chest tube Diagnosis: Pleural effusion Indications: Left-sided pleural effusion with respiratory failure Consent: Obtained from medical decision maker Anesthesia: Versed IV Description of the Procedure: The patient was placed in the supine position. The arm was abducted above the head and secured. The left lateral chest was prepped and draped sterilely to include the axilla and nipple. 1% Lidocaine was infiltrated subcutaneously and into the tissues down to the periosteum of the rib. Ultrasound guidance was used to identify the largest area of simple fluid. The 6th intercostal space was identified. A small incision was made using a #11 blade. Under direct ultrasound guidance using an in plane technique , a 17-gauge 15 cm to a needle was advanced superior to the diaphragm under direct guidance into the pleural space. Serous fluid was obtained. A guidewire was threaded easily without resistance. Over the guidewire, a dilator was used, followed by a 10 Fr pigtail catheter with stylet and modified Seldinger technique, and the pigtail catheter was advanced over the trochar in a modified Seldinger Technique, easily and without resistance. The catheter was connected to a Pleur-o-vac and connected to [id number] suction. The catheter was sutured to the skin using a 3-0 silk sandal suture and an occlusive dressing was applied. There were no immediate complications noted. There was minimal EBL. The patient tolerated the procedure well. A Chest x-ray has been ordered. I personally performed the procedure.
[2018-08-12] MEDS ORDERED: Chlorothiazide Inj 500 MG Vial IV.PUSH STA (11:49)
[2018-08-12] MEDS ORDERED: Albumin Human 25% Inj 100 ML IV.SIG SCH (12:00)
--- NOTE | 2018-08-12 12:27 | P.PNPAL ---
Reason for Visit Reason for visit: a. To assist with evaluation and management of symptoms including: Pain, dyspnea, debility. b. To assist medical decision maker(s) with: better understanding of current medical conditions; weighing benefits/burdens of medical treatment options; making medical treatment decisions. Subjective Subjective/Interval History: Patient seen and examined in ICU. No family or friends at bedside. Discussed with Dr. Wu post bedside CHIKA, revealed diastolic heart failure. Patient remains on mech vent. He has had bilateral chest tubes placed since my last visit. Requiring pressor support today, nurse is attempting to wean. Dr. Montez has seen the patient who agrees with palliative care consult. Creatinine 1.9 today. Albumin 1.8, tolerating tube feeding. Family/Friend Interactions: Spoke with sisters, Frances and Lindsey via telephone to provide medical update. Both request palliative care call with update on 08/13/18. Goals remains aggressive short of Intubation Only and NO amputation. Other decisions will need to be clarified with [facility] Lindsey as needed. Both sisters understand patient may not survive. If his condition worsens I suspect Lindsey will readily transition to comfort measures only. SisterFrances is considering coming to [place] from [place] to see patient, uncertain if she wants to come when he may not know she is here. Advance Directives Advance Directives Date on File: 06/15/18 Health Care Surrogate Name and Number: Lindsey Chand, sister: [phone] Objective Vital Signs: Vital Signs 08/11/18 12:18 08/11/18 13:00 08/11/18 14:00 Temperature Pulse Rate 70 65 Respiratory Rate 18 18 18 Blood Pressure 113/55 L 120/58 L Pulse Oximetry 100 100 99 08/11/18 15:00 08/11/18 15:51 08/11/18 16:00 Temperature 98.0 F Pulse Rate 66 53 L Respiratory Rate 20 18 Blood Pressure 107/54 L 116/76 Pulse Oximetry 99 97 08/11/18 17:00 08/11/18 17:57 08/11/18 18:00 Temperature Pulse Rate 51 L 51 L Respiratory Rate 18 18 18 Blood Pressure 110/60 117/56 L Pulse Oximetry 97 100 100 08/11/18 19:00 08/11/18 20:00 08/11/18 20:35 Temperature Pulse Rate 56 L Respiratory Rate 18 Blood Pressure Pulse Oximetry 95 100 08/11/18 20:39 08/11/18 23:07 08/11/18 23:14 Temperature Pulse Rate 59 L Respiratory Rate 18 19 Blood Pressure Pulse Oximetry 94 L 94 L 08/12/18 00:00 08/12/18 00:55 08/12/18 03:35 Temperature 98.5 F Pulse Rate 73 75 Respiratory Rate 16 18 18 Blood Pressure 110/60 Pulse Oximetry 91 L 95 95 08/12/18 04:00 08/12/18 07:38 08/12/18 08:00 Temperature 98.3 F 98.6 F Pulse Rate 76 80 Respiratory Rate 18 18 18 Blood Pressure 107/60 94/61 L Pulse Oximetry 95 95 94 L 08/12/18 09:11 08/12/18 11:30 Temperature Pulse Rate 78 Respiratory Rate 18 18 Blood Pressure Pulse Oximetry 96 Intake & Output 08/11/18 08/12/18 08/12/18 18:59 06:59 18:59 Intake Total 200 / 200 1283 / 1283 100 / 100 Output Total 2530 / 2530 1920 / 1920 Balance -2330 / -2330 -637 / -637 100 / 100 Weight 158.2 kg Intake: IV 200 / 200 950 / 950 100 / 100 Diprivan 1000 mg/100 ml Inj 1, 0 / 0 000 mg In 100 ml @ 5 MCG/KG/MIN 5.007 mls/hr IV.CONT TITRATE PRN Rx#:[id number] Maxipime Inj 1,000 MG In NS Inj 200 / 200 100 / 100 100 / 100 100 ML @ 200 mls/hr IV.SIG Q8H SHAHEED Rx#:[id number] Zyvox 600 mg Premix 300 ML @ 600 / 600 300 mls/hr IV.SIG Q12H SHAHEED Rx#: [id number] fentaNYL 10 mcg/mL Premix Drip 250 / 250 2,500 mcg In 250 ml @ 50 MCG/HR 5 mls/hr IV.SIG TITRATE PRN Rx #:[id number] Tube Feeding 133 / 133 Water Bolus Amount 200 / 200 Output: Urine Amount (Catheter) 1949 1500 / 1500 Indwelling Urethral Catheter 1949 1500 / 1500 Chest Tube Drainage 580 / 580 420 / 420 Right Mid-Axillary Chest 580 / 580 420 / 420 Other: # Bowel Movements 0 Physical Exam: CONSTITUTIONAL/GENERAL: This is a morbidly obese gentleman, critically ill patient, on mech vent. TUBES/LINES/DRAINS: ETT, OG, PIV right, podus boots. SKIN: No jaundice, rashes, or lesions. Ecchymoses on upper extremities. Dressing noted on right foot. Skin temperature cool. HEAD: Atraumatic. Normocephalic. EYES: Pupils equal and round. No scleral icterus. No injection or drainage. ENT: Unable to assess hearing. Nose without bleeding or purulent drainage. Throat difficult to visualize due to tubes. NECK: Trachea midline. CARDIOVASCULAR: Regular rate and rhythm without murmurs, gallops, or rubs. RESPIRATORY/CHEST: On mech vent, crackles noted right > left, diminished breath sounds bilaterally. GASTROINTESTINAL: Abdomen protuberant, soft. No guarding. Bowel sounds present. GENITOURINARY: Without palpable bladder distension. MUSCULOSKELETAL: Right foot with dressing in place. Podus boots in place. LYMPHATICS: Not examined. NEUROLOGICAL: Sedated. PSYCHIATRIC: Sedated. Diagnostic Tests Laboratory: Laboratory Results - last 72 hr 08/09/18 08/09/18 08/09/18 12:36 16:21 18:00 WBC RBC Hgb Hct MCV MCH MCHC RDW Plt Count MPV Neut % (Auto) Lymph % (Auto) Mason % (Auto) Eos % (Auto) Baso % (Auto) Neut # (Auto) Lymph # (Auto) Mason # (Auto) Eos # (Auto) Baso # (Auto) WBC Differential Differential Comment PT INR Puncture Site Patient Temperature O2 Saturation ABG pH ABG pCO2 ABG pO2 ABG HCO3 ABG O2 Content ABG Base Excess ABG Methemoglobin Parker Test Hemoglobin Carboxyhemoglobin O2 Delivery Device Vent Setting Inspired O2 Critical Value Sodium Potassium Chloride Carbon Dioxide Anion Gap BUN Creatinine Estimated GFR POC Glucose 182 H 183 H Random Glucose Calcium Phosphorus Magnesium Total Bilirubin AST ALT Alkaline Phosphatase Lactate Dehydrogenase Total Creatine Kinase Troponin I B-Natriuretic Peptide Total Protein Albumin Procalcitonin Pleural pH Pleural RBC Pleural Nuc Cells Pleural Neutrophils Pleural Monocytes Pleural Total Protein Pleural LDH Pleural Glucose Nasal Screen MRSA (PCR) Not detected 08/09/18 08/09/18 08/09/18 18:25 19:14 19:14 WBC RBC Hgb Hct MCV MCH MCHC RDW Plt Count MPV Neut % (Auto) Lymph % (Auto) Mason % (Auto) Eos % (Auto) Baso % (Auto) Neut # (Auto) Lymph # (Auto) Mason # (Auto) Eos # (Auto) Baso # (Auto) WBC Differential Differential Comment PT INR Puncture Site Left radial Patient Temperature 98.6 O2 Saturation 85 L* ABG pH 7.30 L ABG pCO2 50 H ABG pO2 53 L* ABG HCO3 24 ABG O2 Content 10.4 L ABG Base Excess -1.2 ABG Methemoglobin 1.4 Parker Test Present Hemoglobin 8.6 L Carboxyhemoglobin 1.3 O2 Delivery Device Bipap Vent Setting Inspired O2 45 Critical Value Yes Sodium Potassium Chloride Carbon Dioxide Anion Gap BUN Creatinine Estimated GFR POC Glucose Random Glucose Calcium Phosphorus Magnesium Total Bilirubin AST ALT Alkaline Phosphatase Lactate Dehydrogenase Total Creatine Kinase 28 L Troponin I Less than 0.02 L B-Natriuretic Peptide 188 H Total Protein Albumin Procalcitonin Pleural pH Pleural RBC Pleural Nuc Cells Pleural Neutrophils Pleural Monocytes Pleural Total Protein Pleural LDH Pleural Glucose Nasal Screen MRSA (PCR) 08/09/18 08/09/18 08/10/18 19:14 20:44 05:35 WBC 8.2 RBC 3.02 L Hgb 8.6 L Hct 26.3 L MCV 86.9 MCH 28.5 MCHC 32.8 RDW 16.3 Plt Count 141 L MPV 8.3 Neut % (Auto) 72.7 H Lymph % (Auto) 15.2 Mason % (Auto) 7.0 Eos % (Auto) 4.5 H Baso % (Auto) 0.6 Neut # (Auto) 6.0 Lymph # (Auto) 1.2 Mason # (Auto) 0.6 Eos # (Auto) 0.4 Baso # (Auto) 0.0 WBC Differential . Differential Comment Auto diff final PT INR Puncture Site Patient Temperature O2 Saturation ABG pH ABG pCO2 ABG pO2 ABG HCO3 ABG O2 Content ABG Base Excess ABG Methemoglobin Parker Test Hemoglobin Carboxyhemoglobin O2 Delivery Device Vent Setting Inspired O2 Critical Value Sodium Potassium Chloride Carbon Dioxide Anion Gap BUN Creatinine Estimated GFR POC Glucose 220 H Random Glucose Calcium Phosphorus Magnesium Total Bilirubin AST ALT Alkaline Phosphatase Lactate Dehydrogenase Total Creatine Kinase Troponin I B-Natriuretic Peptide Total Protein Albumin Procalcitonin 0.17 H Pleural pH Pleural RBC Pleural Nuc Cells Pleural Neutrophils Pleural Monocytes Pleural Total Protein Pleural LDH Pleural Glucose Nasal Screen MRSA (PCR) 08/10/18 08/10/1818 05:35 05:35 07:35 WBC RBC Hgb Hct MCV MCH MCHC RDW Plt Count MPV Neut % (Auto) Lymph % (Auto) Mason % (Auto) Eos % (Auto) Baso % (Auto) Neut # (Auto) Lymph # (Auto) Mason # (Auto) Eos # (Auto) Baso # (Auto) WBC Differential Differential Comment PT 11.2 INR 1.1 Puncture Site Patient Temperature O2 Saturation ABG pH ABG pCO2 ABG pO2 ABG HCO3 ABG O2 Content ABG Base Excess ABG Methemoglobin Parker Test Hemoglobin Carboxyhemoglobin O2 Delivery Device Vent Setting Inspired O2 Critical Value Sodium 142 Potassium 4.2 Chloride 108 H Carbon Dioxide 25.0 Anion Gap 9 BUN 64 H Creatinine 1.51 H Estimated GFR 45 L POC Glucose 156 H Random Glucose 165 H Calcium 8.5 Phosphorus 3.8 Magnesium 2.5 Total Bilirubin 0.4 AST 5 L ALT 15 Alkaline Phosphatase 67 Lactate Dehydrogenase Total Creatine Kinase Troponin I B-Natriuretic Peptide Total Protein 7.1 Albumin 2.0 L Procalcitonin Pleural pH Pleural RBC Pleural Nuc Cells Pleural Neutrophils Pleural Monocytes Pleural Total Protein Pleural LDH Pleural Glucose Nasal Screen MRSA (PCR) 08/10/18 08/10/18 08/10/18 12:41 17:41 20:58 WBC RBC Hgb Hct MCV MCH MCHC RDW Plt Count MPV Neut % (Auto) Lymph % (Auto) Mason % (Auto) Eos % (Auto) Baso % (Auto) Neut # (Auto) Lymph # (Auto) Mason # (Auto) Eos # (Auto) Baso # (Auto) WBC Differential Differential Comment PT INR Puncture Site Patient Temperature O2 Saturation ABG pH ABG pCO2 ABG pO2 ABG HCO3 ABG O2 Content ABG Base Excess ABG Methemoglobin Parker Test Hemoglobin Carboxyhemoglobin O2 Delivery Device Vent Setting Inspired O2 Critical Value Sodium Potassium Chloride Carbon Dioxide Anion Gap BUN Creatinine Estimated GFR POC Glucose 146 H 231 H 198 H Random Glucose Calcium Phosphorus Magnesium Total Bilirubin AST ALT Alkaline Phosphatase Lactate Dehydrogenase Total Creatine Kinase Troponin I B-Natriuretic Peptide Total Protein Albumin Procalcitonin Pleural pH Pleural RBC Pleural Nuc Cells Pleural Neutrophils Pleural Monocytes Pleural Total Protein Pleural LDH Pleural Glucose Nasal Screen MRSA (PCR) 08/11/18 08/11/18 08/11/18 04:15 04:15 08:27 WBC 7.2 RBC 2.99 L Hgb 8.5 L Hct 26.0 L MCV 86.9 MCH 28.6 MCHC 32.9 RDW 16.4 Plt Count 130 L MPV 8.7 Neut % (Auto) 68.2 Lymph % (Auto) 19.0 Mason % (Auto) 7.3 Eos % (Auto) 4.6 H Baso % (Auto) 0.9 Neut # (Auto) 4.9 Lymph # (Auto) 1.4 Mason # (Auto) 0.5 Eos # (Auto) 0.3 Baso # (Auto) 0.1 WBC Differential . Differential Comment Auto diff final PT INR Puncture Site Patient Temperature O2 Saturation ABG pH ABG pCO2 ABG pO2 ABG HCO3 ABG O2 Content ABG Base Excess ABG Methemoglobin Parker Test Hemoglobin Carboxyhemoglobin O2 Delivery Device Vent Setting Inspired O2 Critical Value Sodium 141 Potassium 4.7 Chloride 109 H Carbon Dioxide 26.3 Anion Gap 6 BUN 65 H Creatinine 1.69 H Estimated GFR 40 L POC Glucose 171 H Random Glucose 175 H Calcium 7.9 L Phosphorus 4.0 Magnesium 2.5 Total Bilirubin 0.3 AST 6 L ALT 12 Alkaline Phosphatase 66 Lactate Dehydrogenase Total Creatine Kinase Troponin I B-Natriuretic Peptide Total Protein 6.9 Albumin 1.8 L Procalcitonin Pleural pH Pleural RBC Pleural Nuc Cells Pleural Neutrophils Pleural Monocytes Pleural Total Protein Pleural LDH Pleural Glucose Nasal Screen MRSA (PCR) 08/11/18 08/11/18 08/11/18 10:16 12:11 14:19 WBC RBC Hgb Hct MCV MCH MCHC RDW Plt Count MPV Neut % (Auto) Lymph % (Auto) Mason % (Auto) Eos % (Auto) Baso % (Auto) Neut # (Auto) Lymph # (Auto) Mason # (Auto) Eos # (Auto) Baso # (Auto) WBC Differential Differential Comment PT INR Puncture Site Right radial Right radial Patient Temperature 98.6 98.6 O2 Saturation 96 87 L* ABG pH 7.32 L 7.33 L ABG pCO2 48 H 46 H ABG pO2 115 56 L* ABG HCO3 24 24 ABG O2 Content 17.7 15.1 ABG Base Excess -0.9 -1.4 ABG Methemoglobin 1.6 1.5 Parker Test Present Present Hemoglobin 13.1 12.3 Carboxyhemoglobin 1.0 1.1 O2 Delivery Device Bipap Vent Vent Setting Ipap 15 epap +5 Prvc 18/650/1.0/+8 Inspired O2 45 90 Critical Value No Yes Sodium Potassium Chloride Carbon Dioxide Anion Gap BUN Creatinine Estimated GFR POC Glucose 166 H Random Glucose Calcium Phosphorus Magnesium Total Bilirubin AST ALT Alkaline Phosphatase Lactate Dehydrogenase Total Creatine Kinase Troponin I B-Natriuretic Peptide Total Protein Albumin Procalcitonin Pleural pH Pleural RBC Pleural Nuc Cells Pleural Neutrophils Pleural Monocytes Pleural Total Protein Pleural LDH Pleural Glucose Nasal Screen MRSA (PCR) 08/11/18 08/11/18 08/11/18 17:02 18:17 18:50 WBC RBC Hgb Hct MCV MCH MCHC RDW Plt Count MPV Neut % (Auto) Lymph % (Auto) Mason % (Auto) Eos % (Auto) Baso % (Auto) Neut # (Auto) Lymph # (Auto) Mason # (Auto) Eos # (Auto) Baso # (Auto) WBC Differential Differential Comment PT INR Puncture Site Patient Temperature O2 Saturation ABG pH ABG pCO2 ABG pO2 ABG HCO3 ABG O2 Content ABG Base Excess ABG Methemoglobin Parker Test Hemoglobin Carboxyhemoglobin O2 Delivery Device Vent Setting Inspired O2 Critical Value Sodium Potassium Chloride Carbon Dioxide Anion Gap BUN Creatinine Estimated GFR POC Glucose 140 H Random Glucose Calcium Phosphorus Magnesium Total Bilirubin AST ALT Alkaline Phosphatase Lactate Dehydrogenase Total Creatine Kinase Troponin I B-Natriuretic Peptide Total Protein Albumin Procalcitonin Pleural pH 8.5 Pleural RBC 62971 H Pleural Nuc Cells 184 H Pleural Neutrophils 75 Pleural Monocytes 25 Pleural Total Protein 2.0 Pleural LDH 69 Pleural Glucose 150 Nasal Screen MRSA (PCR) 08/11/18 08/11/18 08/11/18 19:53 21:21 23:44 WBC RBC Hgb Hct MCV MCH MCHC RDW Plt Count MPV Neut % (Auto) Lymph % (Auto) Mason % (Auto) Eos % (Auto) Baso % (Auto) Neut # (Auto) Lymph # (Auto) Mason # (Auto) Eos # (Auto) Baso # (Auto) WBC Differential Differential Comment PT INR Puncture Site Patient Temperature O2 Saturation ABG pH ABG pCO2 ABG pO2 ABG HCO3 ABG O2 Content ABG Base Excess ABG Methemoglobin Parker Test Hemoglobin Carboxyhemoglobin O2 Delivery Device Vent Setting Inspired O2 Critical Value Sodium 142 Potassium 4.4 Chloride 109 H Carbon Dioxide 23.4 Anion Gap 10 BUN 69 H Creatinine 1.79 H Estimated GFR 37 L POC Glucose 134 H 118 H Random Glucose 129 H Calcium 8.4 L Phosphorus Magnesium Total Bilirubin AST ALT Alkaline Phosphatase Lactate Dehydrogenase 147 Total Creatine Kinase Troponin I B-Natriuretic Peptide Total Protein Albumin Procalcitonin Pleural pH Pleural RBC Pleural Nuc Cells Pleural Neutrophils Pleural Monocytes Pleural Total Protein Pleural LDH Pleural Glucose Nasal Screen MRSA (PCR) 08/12/18 08/12/18 08/12/18 02:41 02:41 05:56 WBC 7.7 RBC 2.95 L Hgb 8.3 L Hct 25.7 L MCV 87.1 MCH 28.3 MCHC 32.5 RDW 16.5 Plt Count 145 L MPV 8.6 Neut % (Auto) 64.7 Lymph % (Auto) 20.9 Mason % (Auto) 8.4 H Eos % (Auto) 5.0 H Baso % (Auto) 1.0 Neut # (Auto) 5.0 Lymph # (Auto) 1.6 Mason # (Auto) 0.6 Eos # (Auto) 0.4 Baso # (Auto) 0.1 WBC Differential . Differential Comment Auto diff final PT INR Puncture Site Patient Temperature O2 Saturation ABG pH ABG pCO2 ABG pO2 ABG HCO3 ABG O2 Content ABG Base Excess ABG Methemoglobin Parker Test Hemoglobin Carboxyhemoglobin O2 Delivery Device Vent Setting Inspired O2 Critical Value Sodium 142 Potassium 4.4 Chloride 110 H Carbon Dioxide 23.5 Anion Gap 9 BUN 68 H Creatinine 1.90 H Estimated GFR 35 L POC Glucose 159 H Random Glucose 114 H Calcium 8.3 L Phosphorus 2.7 D Magnesium 2.4 Total Bilirubin 0.5 AST 12 L ALT 13 Alkaline Phosphatase 68 Lactate Dehydrogenase Total Creatine Kinase 41 Troponin I 0.02 B-Natriuretic Peptide Total Protein 7.1 Albumin 1.8 L Procalcitonin Pleural pH Pleural RBC Pleural Nuc Cells Pleural Neutrophils Pleural Monocytes Pleural Total Protein Pleural LDH Pleural Glucose Nasal Screen MRSA (PCR) 08/12/18 08/12/18 09:47 11:27 WBC RBC Hgb Hct MCV MCH MCHC RDW Plt Count MPV Neut % (Auto) Lymph % (Auto) Mason % (Auto) Eos % (Auto) Baso % (Auto) Neut # (Auto) Lymph # (Auto) Mason # (Auto) Eos # (Auto) Baso # (Auto) WBC Differential Differential Comment PT INR Puncture Site Patient Temperature O2 Saturation ABG pH ABG pCO2 ABG pO2 ABG HCO3 ABG O2 Content ABG Base Excess ABG Methemoglobin Parker Test Hemoglobin Carboxyhemoglobin O2 Delivery Device Vent Setting Inspired O2 Critical Value Sodium Potassium Chloride Carbon Dioxide Anion Gap BUN Creatinine Estimated GFR POC Glucose 202 H 174 H Random Glucose Calcium Phosphorus Magnesium Total Bilirubin AST ALT Alkaline Phosphatase Lactate Dehydrogenase Total Creatine Kinase Troponin I B-Natriuretic Peptide Total Protein Albumin Procalcitonin Pleural pH Pleural RBC Pleural Nuc Cells Pleural Neutrophils Pleural Monocytes Pleural Total Protein Pleural LDH Pleural Glucose Nasal Screen MRSA (PCR) Result Diagrams: 08/12/18 02:41 08/12/18 02:41 Microbiology: Microbiology 08/07/18 22:45 Aerobic Blood Culture - Final Blood - Line No growth in 5 days Anaerobic Blood Culture - Final No growth in 5 days 08/07/18 16:40 Aerobic Blood Culture - Final Blood - Peripheral No growth in 5 days Anaerobic Blood Culture - Final No growth in 5 days 08/07/18 16:45 Aerobic Blood Culture - Final Blood - Peripheral No growth in 5 days Anaerobic Blood Culture - Final No growth in 5 days 08/11/18 17:02 Gram Stain - Final Fluid - Pleural fluid 08/11/18 13:45 Streptococcus pneumoniae Antigen (M - Final Urine - Catheterized Urine Presumptive negative for streptococcus pneumoniae antigen, suggesting no current or recent infection. Infection due to Streptococcus pneumoniae cannot be ruled out since the antigen present in the sample may be below the detection limit of the test. Procedures: * 08/11/18 - Intubated. Assessment and Plan - Disease Oriented Problem List (1) Diastolic heart failure (2) PNA (pneumonia) (3) Pleural effusion (4) Osteomyelitis of ankle and foot (5) Kidney disease (6) Morbid obesity (7) Diabetes (8) Hypertension (9) JOSE (acute kidney injury) (10) SHEELA (obstructive sleep apnea) (11) COPD (chronic obstructive pulmonary disease) - Symptom Scale (1) Pain 0-10 Scale: Unable to quantify (2) Dyspnea 0-10 Scale: Unable to quantify (3) Debility 0-10 Scale: Unable to quantify Pertinent Non-Medical Issues: Psychosocial: . Supported by his 2 sisters, Lindsey and Frances who live in [place]. Spiritual: None. Legal:Patient is not capacitated to make his own health care decisions, uncertain if he will regain capacity. Called [facility] to see if they have any written advance directives, copy of written designation of health care surrogate received dated 06/15/18 naming his sister, Lindsey Chand as health care surrogate # [phone]. Ethical issues impacting care: No known concerns at this time. Important Contacts: * Lindsey Chand, sister/ [facility]: [phone] * Ria Alegria, sister: [phone] Prognosis: Overall prognosis appears poor for meaningful recovery. Code Status: Alternative Code (Intubation Only.) Plan: * Patient is not capacitated to make his own health care decisions, uncertain if he will regain capacity. Called [facility] to see if they have any written advance directives, copy of written designation of health care surrogate received dated 06/15/18 naming his sister, Lindsey Chand as health care surrogate # [phone]. * INTUBATION ONLY * Spoke with sisters, Frances and Lindsey via telephone to provide medical update. Both request palliative care call with update on 08/13/18. Goals remains aggressive short of Intubation Only and NO amputation. Other decisions will need to be clarified with [facility] as needed. Both sisters understand patient may not survive. If his condition worsens I suspect Lindsey will readily transition to comfort measures only. SisterFrances is considering coming to [place] from [place] to see patient, uncertain if she wants to come when he may not know she is here. * Discussed with Dr. Wu, Dr. Montez and nurses, Peyton and Maria Victoria. * Family does NOT want any information shared with friends of patient, including but not limited to Elsie. * SYMPTOMS: Pain: due to chronic debility, osteomyelitis, wounds, pneumonia, tubes, etc. No obvious signs of pain today, on Propofol. Will continue to monitor. Dyspnea: post [facility] tubes[facility] No new medication recommendations at this time. * Palliative care will continue to follow to assist with symptom management and clarification of goals of medical treatment as needed. Attestation Attestation: To help prompt me to consider important information that might be impacting today's encounter and assessment, information from prior notes written by myself or my colleagues may have been "brought forward" into today's note. My signature on this note, however, is an attestation that I personally performed the exam, history, and/or decision-making noted today, and, unless otherwise indicated, the interactions with patient, family, and staff as well as the review of records all occurred today. I also attest that the listed assessment and stated plan reflect my best clinical judgment today based on the combination of historical information, prior notes, and today's exam/ interactions. 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
[2018-08-12] MEDS: Albumin Human 25% Inj 50 ML IV.SIG SCH ×3 (13:23→21:29)
--- NOTE | 2018-08-12 16:43 | ECHRPT ---
Indication: EVALUATE LV FUNCTION CONCLUSIONS 1) Moderately Reduced LVEF 35-40% 2) Grade III Diastolic Dysfunction 3) Left atrial hypertension 4) Mobile filling defect within the left atrial appendage concerning for thrombus 5) trace mitral regurgitation 6) mild tricuspid regurgitation 7) Moderate pulmonary hypertension based on RVSP 51 mmHg BP: / HR: Rhythm: MEASUREMENTS (Male / Female) Normal Values Technical Quality: DOPPLER AV Peak Velocity 152.0 cm/s Mitral E to LV E' Lateral 14.9 AV Peak Gradient 9.2 mmHg LV E' Septal Velocity 9.1 cm/s AV Mean Gradient 5.0 mmHg Mitral E to LV E' Septal 13.6 AV Velocity Time Integral 27.3 cm TR Peak Velocity 321.0 cm/s LVOT Peak Velocity 86.4 cm/s TR Peak Gradient 41.2 mmHg LVOT Peak Gradient 3.0 mmHg Right Atrial Pressure 10.0 mmHg LVOT Velocity Time Integr 14.2 cm Pulmonary Artery Systolic 51.2 mmHg Mitral E Point Velocity 124.0 cm/s Right Ventricular Systoli 51.2 mmHg LV E' Lateral Velocity 8.3 cm/s Medications Complications Proc. Components FINDINGS LEFT VENTRICLE Moderately Reduced LV systolic function with an estimated Ejection Fraction of 35-40% Grade III Diastolic Dysfunction with a Restrictive Filling pattern. Global Hypokinesis RIGHT VENTRICLE Normal Right Ventricular size and systolic function LEFT ATRIUM Mildly Dilated left atrium. Evidence of Left atrial hypertension by pulmonary vein inflows ATRIAL APPENDAGES There is a mobile filling defect within the left atrial appendage concerning for thrombus. ATRIAL SEPTUM No evidence of intra-atrial shunting by color flow Doppler. Negative Bubble study for immediate or d elayed intra-cardiac shunting. AORTA No evidence of dissection or mobile plaques. MITRAL VALVE Trace mitral regurgitation. AORTIC VALVE Trileaflet valve without evidence of stenosis or regurgitation. TRICUSPID VALVE Mild tricuspid regurgitation. RVSP estimated at 51 mmHg VESSELS no evidence of stenosis or regurgitation. PERICADIUM No pericardial effusion. Sanjeev Wu MD (Electronically Signed) Final Date:12 August 2018 16:42 Amended: 12 August 2018 16:45
[2018-08-12] MEDS: Finasteride 5 MG Tablet PO SCH (18:04)
[2018-08-12] MEDS: Heparin Drip 25,000 UNIT/250 ML BAG IV.CONT PRN (18:05)
[2018-08-12] MEDS: Bumetanide Inj 25 MG/100 ML BAG IV.CONT SCH (18:08)
--- NOTE | 2018-08-12 18:32 | P.PNPL ---
Subjective Interval history: 73 YOWM with COPD,SHEELA,Resp insuff Developed RF, intubated CT chest showed Bilat infilt and pl eff Rt chest tube draining Had Left chest tube placed CHIKA showes thrombus Started in Heparin and Bumex drip On Fentanyl drip, opens eyes Physical Exam Vital signs: Vital Signs 08/11/18 19:00 08/11/18 20:00 08/11/18 20:35 Temperature Pulse Rate 56 L Respiratory Rate 18 Blood Pressure Pulse Oximetry 95 100 08/11/18 20:39 08/11/18 23:07 08/11/18 23:14 Temperature Pulse Rate 59 L Respiratory Rate 18 19 Blood Pressure Pulse Oximetry 94 L 94 L 08/12/18 00:00 08/12/18 00:55 08/12/18 03:35 Temperature 98.5 F Pulse Rate 73 75 Respiratory Rate 16 18 18 Blood Pressure 110/60 Pulse Oximetry 91 L 95 95 08/12/18 04:00 08/12/18 07:38 08/12/18 08:00 Temperature 98.3 F 98.6 F Pulse Rate 76 80 Respiratory Rate 18 18 18 Blood Pressure 107/60 94/61 L Pulse Oximetry 95 95 94 L 08/12/18 09:11 08/12/18 11:30 08/12/18 12:00 Temperature 98.1 F Pulse Rate 78 77 Respiratory Rate 18 18 18 Blood Pressure 129/68 Pulse Oximetry 96 96 08/12/18 15:19 Temperature Pulse Rate 72 Respiratory Rate 18 Blood Pressure Pulse Oximetry 96 Intake & Output 08/11/18 08/12/18 08/12/18 18:59 06:59 18:59 Intake Total 200 / 200 1283 / 1283 1083 / 1083 Output Total 2530 / 2530 1920 / 1920 2900 / 2900 Balance -2330 / -2330 -637 / -637 -1817 / -1817 Weight 158.2 kg Intake: IV 200 / 200 950 / 950 725 / 725 Bumex Inj 25 mg In 100 ml @ 0.5 100 / 100 MG/HR 2 mls/hr IV.CONT .Q24H [facility] Rx#:[id number] Diprivan 1000 mg/100 ml Inj 1, 0 / 0 000 mg In 100 ml @ 5 MCG/KG/MIN 5.007 mls/hr IV.CONT TITRATE PRN Rx#:[id number] Flexbumin 25% Inj 50 ML @ 12.5 50 / 50 mls/hr IV.SIG Q8H [facility] Rx#: [id number] Maxipime Inj 1,000 MG In NS Inj 200 / 200 100 / 100 200 / 200 100 ML @ 200 mls/hr IV.SIG Q8H [facility] Rx#:[id number] Zyvox 600 mg Premix 300 ML @ 600 / 600 300 / 300 300 mls/hr IV.SIG Q12H [facility] Rx#: [id number] Levophed-Dextrose 4 mg/250 ml 75 / 75 Drip 4 mg In 250 ml @ 0 mls/hr IV.SIG .STK-MED ONE Rx#: [id number] fentaNYL 10 mcg/mL Premix Drip 250 / 250 2,500 mcg In 250 ml @ 50 MCG/HR 5 mls/hr IV.SIG TITRATE PRN Rx #:[id number] Tube Feeding 133 / 133 238 / 238 Tube Irrigant 120 / 120 Water Bolus Amount 200 / 200 Output: Urine Amount (Catheter) 1949 1500 / 1500 1750 / 1750 Indwelling Urethral Catheter 1949 1500 / 1500 1750 / 1750 Chest Tube Drainage 580 / 580 420 / 420 1150 / 1150 Left Mid-Axillary Chest 1090 / 1090 Right Mid-Axillary Chest 580 / 580 420 / 420 60 / 60 Other: # Bowel Movements 0 0 GENERAL: Obese WM, on vent, sedated SKIN: Warm and dry. HEAD: Normocephalic. EYES: No scleral icterus. No injection or drainage. NECK: Supple, trachea midline. No JVD or lymphadenopathy. CARDIOVASCULAR: Regular rate and rhythm without murmurs, gallops, or rubs. RESPIRATORY: Breath sounds equal bilaterally. No accessory muscle use. Bilat chest tubes GASTROINTESTINAL: Abdomen soft, non-tender, nondistended. MUSCULOSKELETAL: No cyanosis, ++ edema. BACK: Nontender without obvious deformity. No CVA tenderness. - Urinary Catheter Management Indwelling Urethral Catheter Cath placed during this visit: yes Reason for continuing: Hourly intake/output Insertion date: 08/11/18 Insertion time: 12:00 Assessment and Plan - Plan IMPRESSION: 1. Respiratory failure. 2. Hypoxia. 3. Morbid obesity. 4. Likely sleep apnea. 5. Osteomyelitis. 6. Pneumonia. 7. Pulmonary edema. 8. Renal insufficiency. 9. Pleural effusion, s/p rt chest tube PLAN: Vent support Sedation with Fentanyl Rt chest tubes to suction. Diurease Monitor Lytes Abx per ID Bumex drip Heparin IV
--- NOTE | 2018-08-12 23:25 | P.PNCA ---
Subjective Interval history: Further chest tubes placed CHIKA done by Dr. Wu, concern for diastolic dysfunction and left atrial appendage thrombus Medications and Allergies Active Medications: Active Medications Acetaminophen (Tylenol) 650 mg PO Q6H PRN PRN Reason: Temp > 100.4 Al Hydroxide/Mg Hydroxide (Milk Of [place] Liq) 30 ml PO Q12H PRN PRN Reason: Mild Constipation Albuterol (Albuterol Neb (Prn)) 2.5 mg NEB Q2HR NEB PRN PRN Reason: DYSPNEA Albuterol (Duoneb Neb ([facility])) 1 ampul NEB Q6HR NEB [facility] Last Admin: 08/12/18 19:38 Dose: 1 ampul Amlodipine Besylate (Norvasc) 5 mg PO DAILY [facility] Last Admin: 08/12/18 09:27 Dose: Not Given Artificial Tears (Refresh Tears 0.5% Opth Drops) 1 drop EACH EYE BID [facility] Last Admin: 08/12/18 20:14 Dose: 1 drop Aspirin (Aspirin) 325 mg PO DAILY [facility] Last Admin: 08/12/18 09:25 Dose: 325 mg Atorvastatin Calcium (Lipitor) 20 mg PO HS [facility] Last Admin: 08/12/18 20:14 Dose: 20 mg Azithromycin (Zithromax) 500 mg PO DAILY [facility] Last Admin: 08/12/18 09:25 Dose: 500 mg Bisacodyl (Dulcolax Supp) 10 mg RECTAL DAILY PRN PRN Reason: SEVERE CONSITIPATION Carvedilol (Coreg) 3.125 mg PO BID [facility] Last Admin: 08/12/18 20:13 Dose: 3.125 mg Chlorhexidine Gluconate (Chlorhexidine 2% Cloth) 3 pack TOPICAL DAILY@0400 [facility] Stop: 08/15/18 03:59 Last Admin: 08/12/18 03:57 Dose: 3 pack Chlorhexidine Gluconate (Chlorhexidine 2% Cloth) 1 pack TOPICAL PRN PRN PRN Reason: FOR HYGIENIC CARE Chlorhexidine Gluconate (Peridex 0.12% Oral Kit) 15 ml OROPHARYNG BID@0800, 2000 [facility] Last Admin: 08/12/18 20:12 Dose: 15 ml Dextrose (D50w Vial) 50 ml IV.PUSH UNSCH PRN PRN Reason: PER HYPOGLYCEMIA PROTOCOL Duloxetine HCl (Cymbalta) 30 mg PO DAILY [facility] Last Admin: 08/12/18 09:26 Dose: 30 mg Finasteride (Proscar) 5 mg PO DAILY@1800 [facility] Last Admin: 08/12/18 18:04 Dose: 5 mg Gabapentin (Neurontin) 300 mg PO Q6HR [facility] Last Admin: 08/12/18 23:18 Dose: 300 mg Glucagon (Glucagon Inj) 1 mg OTHER PRN PRN PRN Reason: for Hypoglycemia Protocol Guaifenesin (Mucinex Er) 600 mg PO BID [facility] Last Admin: 08/12/18 20:14 Dose: 600 mg Linezolid (Zyvox 600 Mg Premix) 300 mls @ 300 mls/hr IV.SIG Q12H [facility] Last Infusion: 08/12/18 15:29 Dose: Infused Cefepime HCl 1,000 mg/ Sodium (Chloride) 100 mls @ 200 mls/hr IV.SIG Q8H [facility] Last Admin: 08/12/18 23:17 Dose: 200 mls/hr Fentanyl (Fentanyl 10 Mcg/Ml Premix Drip) 2,500 mcg in 250 mls @ 5 mls/hr IV.SIG TITRATE PRN; Protocol PRN Reason: Per Protocol Last Admin: 08/12/18 20:48 Dose: 150 mcg/hr, 15 mls/hr Midazolam HCl (Versed Inj) 50 mg in 50 mls @ 2 mls/hr IV.CONT TITRATE PRN; Protocol PRN Reason: Per Protocol Norepinephrine Bitartrate 16 (mg/ Sodium Chloride) 250 mls @ 1.87 mls/hr IV.CONT TITRATE PRN; Protocol PRN Reason: See Protocol Bumetanide (Bumex Inj) 25 mg in 100 mls @ 2 mls/hr IV.CONT .Q24H [facility] Last Admin: 08/12/18 18:08 Dose: 0.5 mg/hr, 2 mls/hr Albumin Human (Flexbumin 25% Inj) 50 mls @ 12.5 mls/hr IV.SIG Q8H [facility] Stop: 08/14/18 09:59 Last Admin: 08/12/18 21:29 Dose: 12.5 mls/hr Heparin Sodium/Dextrose (Heparin/D5w 25,000 U/250 Ml) 25,000 unit in 250 mls @ 0 mls/hr IV.CONT TITRATE PRN; Protocol PRN Reason: Per Protocol Last Admin: 08/12/18 18:05 Dose: 1,800 units/hr, 18 mls/hr Insulin Aspart (Novolog Insulin [employer] Sugar Inj) 0 unit SQ Q6HR [facility]; Protocol Last Admin: 08/12/18 23:18 Dose: Not Given Insulin Detemir (Levemir Inj) 5 unit SQ BID [facility] Last Admin: 08/12/18 20:13 Dose: 5 unit Lactulose (Lactulose Liq) 30 ml PO DAILY PRN PRN Reason: SEVERE CONSITIPATION Lansoprazole (Prevacid Solutab) 30 mg NG/OG DAILY [facility] Last Admin: 08/12/18 09:25 Dose: 30 mg Miscellaneous Medication () 1 each OROPHARYNG 0000,0400,1200,1600 [facility] Last Admin: 08/12/18 23:18 Dose: 1 each Ondansetron HCl (Zofran Inj) 4 mg IV.PUSH Q6H PRN PRN Reason: NAUSEA OR VOMITING Polyethylene Glycol (Miralax) 17 gm PO BID [facility] Last Admin: 08/12/18 20:14 Dose: 17 gm Potassium Chloride (K-Dur) 20 meq PO BID [facility] Last Admin: 08/12/18 20:13 Dose: 20 meq Senna/Docusate Sodium (Isabella-Colace) 1 tab PO BID [facility] Last Admin: 08/12/18 20:14 Dose: 1 tab Sennosides (Senokot) 17.2 mg PO Q12H PRN PRN Reason: Moderate Constipation Tamsulosin HCl (Flomax) 0.4 mg PO BID [facility] Last Admin: 08/12/18 20:13 Dose: 0.4 mg Terbutaline Sulfate (Brethine Inj) 1 mg SQ UNSCH PRN PRN Reason: For Extravasation Allergies Allergy/AdvReac Type Severity Reaction Status Date / Time No Known Allergies Allergy Verified 08/06/18 01:24 Home Medications Medication Instructions Recorded Confirmed Type RX: aspirin 325 mg PO DAILY 06/01/18 06/01/18 History RX: atorvastatin [Lipitor] 20 mg PO HS 06/01/18 08/06/18 History RX: duloxetine [Cymbalta] 30 mg PO DAILY 06/01/18 06/01/18 History RX: dutasteride [Avodart] 0.5 mg PO QPM 06/01/18 06/01/18 History RX: gabapentin 300 mg PO Q6HR 06/01/18 06/01/18 History RX: pantoprazole [Protonix] 40 mg PO DAILY 06/01/18 06/01/18 History RX: tamsulosin [Flomax] 0.4 mg PO BID 06/01/18 08/06/18 History Physical Exam Vital signs: Vital Signs 08/12/18 00:00 08/12/18 00:55 08/12/18 03:35 Temperature 98.5 F Pulse Rate 73 75 Respiratory Rate 16 18 18 Blood Pressure 110/60 Pulse Oximetry 91 L 95 95 08/12/18 04:00 08/12/18 07:38 08/12/18 08:00 Temperature 98.3 F 98.6 F Pulse Rate 76 80 Respiratory Rate 18 18 18 Blood Pressure 107/60 94/61 L Pulse Oximetry 95 95 94 L 08/12/18 09:11 08/12/18 11:30 08/12/18 12:00 Temperature 98.1 F Pulse Rate 78 77 Respiratory Rate 18 18 18 Blood Pressure 129/68 Pulse Oximetry 96 96 08/12/18 15:19 08/12/18 16:00 08/12/18 19:36 Temperature 98.7 F Pulse Rate 72 73 Respiratory Rate 18 18 18 Blood Pressure 100/55 L Pulse Oximetry 96 96 96 08/12/18 19:38 08/12/18 20:00 Temperature 98.6 F Pulse Rate 76 63 Respiratory Rate 20 18 Blood Pressure 112/56 L Pulse Oximetry 96 Intake & Output 08/12/18 08/12/18 08/13/18 06:59 18:59 06:59 Intake Total 1283 / 1283 1083 / 1083 300 / 300 Output Total 1920 / 1920 2900 / 2900 Balance -637 / -637 -1817 / -1817 300 / 300 Weight 158.2 kg Intake: IV 950 / 950 725 / 725 300 / 300 Bumex Inj 25 mg In 100 ml @ 0.5 100 / 100 MG/HR 2 mls/hr IV.CONT .Q24H [facility] Rx#:[id number] Flexbumin 25% Inj 50 ML @ 12.5 50 / 50 50 / 50 mls/hr IV.SIG Q8H [facility] Rx#: [id number] Maxipime Inj 1,000 MG In NS Inj 100 / 100 200 / 200 100 ML @ 200 mls/hr IV.SIG Q8H [facility] Rx#:[id number] Zyvox 600 mg Premix 300 ML @ 600 / 600 300 / 300 300 mls/hr IV.SIG Q12H [facility] Rx#: [id number] Levophed-Dextrose 4 mg/250 ml 75 / 75 Drip 4 mg In 250 ml @ 0 mls/hr IV.SIG .STK-MED ONE Rx#: [id number] fentaNYL 10 mcg/mL Premix Drip 250 / 250 250 / 250 2,500 mcg In 250 ml @ 50 MCG/HR 5 mls/hr IV.SIG TITRATE PRN Rx #:[id number] Tube Feeding 133 / 133 238 / 238 Tube Irrigant 120 / 120 Water Bolus Amount 200 / 200 Output: Urine Amount (Catheter) 1500 / 1500 1750 / 1750 Indwelling Urethral Catheter 1500 / 1500 1750 / 1750 Chest Tube Drainage 420 / 420 1150 / 1150 Left Mid-Axillary Chest 1090 / 1090 Right Mid-Axillary Chest 420 / 420 60 / 60 Other: # Bowel Movements 0 0 Narrative: GENERAL: Intubated and sedated SKIN: Warm and dry. HEAD: Atraumatic. Normocephalic. EYES: Pupils equal and round. No scleral icterus. No injection or drainage. ENT: No nasal bleeding or discharge. Mucous membranes pink and moist. NECK: Trachea midline. No JVD. CARDIOVASCULAR: Regular rate and rhythm. RESPIRATORY: No accessory muscle use. Decreased breath sounds bilaterally GASTROINTESTINAL: Abdomen soft, non-tender, nondistended. Hepatic and splenic margins not palpable. MUSCULOSKELETAL: Extremity with bandage, known chronic wound NEUROLOGICAL: Intubated and sedated - Urinary Catheter Management Indwelling Urethral Catheter Cath placed during this visit: yes Reason for continuing: Hourly intake/output Insertion date: 08/11/18 Insertion time: 12:00 Results 08/12/18 02:41 08/12/18 02:41 Cardiac Enzymes 08/11/18 08/11/18 08/12/18 Range/Units 04:15 19:53 02:41 AST 6 L 12 L (15-37) U/L Lactate Dehydrogenase 147 (87-241) U/L Troponin I 0.02 (0.02-0.05) ng/mL Coagulation 08/12/18 Range/Units 17:10 APTT 27.1 (24.3-30.1) sec CBC 08/11/18 08/12/18 Range/Units 04:15 02:41 WBC 7.2 7.7 (4.0-11.0) th/mm3 RBC 2.99 L 2.95 L (4.50-5.90) mil/mm3 Hgb 8.5 L 8.3 L (13.0-17.0) gm/dL Hct 26.0 L 25.7 L (39.0-51.0) % Plt Count 130 L 145 L (150-450) th/mm3 Neut # (Auto) 4.9 5.0 (1.8-7.7) th/mm3 Lymph # (Auto) 1.4 1.6 (1.0-4.8) th/mm3 [place]a # (Auto) 0.5 0.6 (0.0-0.9) th/mm3 Eos # (Auto) 0.3 0.4 (0.0-0.4) th/mm3 Baso # (Auto) 0.1 0.1 (0.0-0.2) th/mm3 Comprehensive Metabolic Panel 08/11/18 08/11/18 08/12/18 Range/Units 04:15 19:53 02:41 Sodium 141 142 142 (136-145) meq/L Potassium 4.7 4.4 4.4 (3.5-5.1) meq/L Chloride 109 H 109 H 110 H (98-107) meq/L Carbon Dioxide 26.3 23.4 23.5 (21.0-32.0) meq/L BUN 65 H 69 H 68 H (7-18) mg/dL Creatinine 1.69 H 1.79 H 1.90 H (0.60-1.30) mg/dL Calcium 7.9 L 8.4 L 8.3 L (8.5-10.1) mg/dL AST 6 L 12 L (15-37) U/L ALT 12 13 (12-78) U/L Alkaline Phosphatase 66 68 (45-117) U/L Total Protein 6.9 7.1 (6.4-8.2) g/dL Albumin 1.8 L 1.8 L (3.4-5.0) g/dL Intake and Output 08/12/18 08/12/18 08/13/18 14:59 22:59 06:59 Intake Total 100 / 100 1283 / 1283 Output Total 2900 / 2900 Balance 100 / 100 -1617 / -1617 Intake: IV 100 / 100 925 / 925 Bumex Inj 25 mg In 100 ml @ 0.5 100 / 100 MG/HR 2 mls/hr IV.CONT .Q24H [facility] Rx#:[id number] Flexbumin 25% Inj 50 ML @ 12.5 100 / 100 mls/hr IV.SIG Q8H [facility] Rx#: [id number] Maxipime Inj 1,000 MG In NS Inj 100 / 100 100 / 100 100 ML @ 200 mls/hr IV.SIG Q8H [facility] Rx#:[id number] Zyvox 600 mg Premix 300 ML @ 300 / 300 300 mls/hr IV.SIG Q12H [facility] Rx#: [id number] Levophed-Dextrose 4 mg/250 ml 75 / 75 Drip 4 mg In 250 ml @ 0 mls/hr IV.SIG .STK-MED ONE Rx#: [id number] fentaNYL 10 mcg/mL Premix Drip 250 / 250 2,500 mcg In 250 ml @ 50 MCG/HR 5 mls/hr IV.SIG TITRATE PRN Rx #:[id number] Tube Feeding 238 / 238 Tube Irrigant 120 / 120 Output: Urine Amount (Catheter) 1750 / 1750 Indwelling Urethral Catheter 1750 / 1750 Chest Tube Drainage 1150 / 1150 Left Mid-Axillary Chest 1090 / 1090 Right Mid-Axillary Chest 60 / 60 Other: # Bowel Movements 0 - Imaging and Cardiology Imaging: Impressions Venous Doppler Study 08/11/18 00:00 CONCLUSION: 1. Negative for deep venous thrombosis Chest X-Ray 08/11/18 06:00 CONCLUSION: Diffuse bilateral edema versus pneumonia. There has been no significant change when compared to the prior exam. Chest X-Ray 08/11/18 11:42 CONCLUSION: Complete opacification of the thorax, significantly limits the study. Chest CT 08/11/18 13:44 CONCLUSION: 1. Diffuse bilateral pulmonary infiltrates and effusions. 2. Atherosclerosis. Chest X-Ray 08/11/18 16:50 CONCLUSION: Left lung is much better aerated. Right side chest tube in good position. Diffuse perihilar vascular congestion with enlarged heart Chest X-Ray 08/12/18 00:00 CONCLUSION: 1. Stable tubes and lines, as above. 2. Progressive airspace consolidation in the right lung, primarily in the right lower lung zone. 3. Improved hazy opacity in the left hemithorax which may reflect improved layering pleural effusion. Venous Doppler Study 08/12/18 00:00 CONCLUSION: 1. The study is negative for lower extremity deep venous thrombosis. Chest X-Ray 08/12/18 06:00 CONCLUSION: Diffuse edema versus pneumonia. There has been no significant change when compared to the prior exam. Assessment and Plan - Assessment (1) Respiratory failure Code(s): J96.90 - Respiratory failure, unspecified, unspecified whether with hypoxia or hypercapnia Status: Acute (2) PNA (pneumonia) Code(s): J18.9 - Pneumonia, unspecified organism Status: Acute (3) Pleural effusion Code(s): J90 - Pleural effusion, not elsewhere classified Status: Acute (4) Osteomyelitis of ankle and foot Code(s): M86.9 - Osteomyelitis, unspecified Status: Acute (5) Diastolic heart failure Code(s): I50.30 - Unspecified diastolic (congestive) heart failure Status: Acute (6) Dyspnea Code(s): R06.00 - Dyspnea, unspecified Status: Acute - Plan 1) Bilateral pleural effusions Bumex drip Chest tubes 2) Diastolic dysfunction 3) Probable left atrial appendage thrombus Started on heparin drip 4) Questionable AFib Appears more likely accelerated junctional as regular in nature Will be on anti-coagulation due to thrombus 5) Agree with palliative care consultation Discussed with palliative care
[2018-08-13] MEDS: Oral Hygiene Kit OROPHARYNG SCH ×3 (03:45→17:08)
[2018-08-13] MEDS: Chlorhexidine Gluconate 2% 1 Pack (2 Cloths) TOPICAL SCH (03:45)
[2018-08-13] MEDS: Albumin Human 25% Inj 50 ML IV.SIG SCH ×3 (05:14→22:32)
[2018-08-13] MEDS: Gabapentin 300 MG Capsule PO SCH ×3 (05:15→17:07)
[2018-08-13] MEDS: Insulin NovoLOG Aspart Correctional Sugar Inj SQ SCH ×3 (05:15→17:09)
[2018-08-13] MEDS: Heparin Drip 25,000 UNIT/250 ML BAG IV.CONT PRN ×2 (06:42→22:36)
[2018-08-13 07:04] LABS: Baso # (Auto) 0.1 th/mm3 (0.0-0.2); Baso % (Auto) 0.8 % (0.0-2.0); Eos # (Auto) 0.2 th/mm3 (0.0-0.4); Eos % (Auto) 2.5 % (0.0-4.0); Hematocrit 24.5 % (39.0-51.0); Hemoglobin 7.9 gm/dL (13.0-17.0); Lymph # (Auto) 1.5 th/mm3 (1.0-4.8); Lymph % (Auto) 20.9 % (9.0-44.0); Mean Corpuscular HGB Conc 32.1 % (32.0-36.0); Mean Corpuscular Hemoglobin 28.2 pg (27.0-34.0); Mean Platelet Volume 8.8 fL (7.0-11.0); Mono # (Auto) 0.7 th/mm3 (0.0-0.9); Mono % (Auto) 9.4 % (0.0-8.0); Neut # (Auto) 4.9 th/mm3 (1.8-7.7); Neut % (Auto) 66.4 % (16.0-70.0); Platelet Count 126 th/mm3 (150-450); Red Blood Count 2.78 mil/mm3 (4.50-5.90); White Blood Count 7.4 th/mm3 (4.0-11.0)
[2018-08-13 07:37] LABS: Alanine Aminotransferase 15 U/L (12-78); Albumin 2.3 g/dL (3.4-5.0); Alkaline Phosphatase 69 U/L (45-117); Anion Gap 9 meq/L (5-15); Aspartate Aminotransferase 14 U/L (15-37); Blood Urea Nitrogen 78 mg/dL (7-18); Calcium 8.6 mg/dL (8.5-10.1); Carbon Dioxide 26.5 meq/L (21.0-32.0); Chloride 107 meq/L (98-107); Glomerular Filtration Rate 29 mL/min (>89); Glucose,Random 196 mg/dL (74-106); Magnesium 2.5 mg/dL (1.5-2.5); Phosphorus 3.8 mg/dL (2.5-4.9); Potassium 4.3 meq/L (3.5-5.1); Prealbumin 12 mg/dL (20-40); Sodium 142 meq/L (136-145); Total Protein 7.2 g/dL (6.4-8.2)
--- NOTE | 2018-08-13 07:49 | P.PNCC ---
Subjective Subjective Remarks/Hospital Course: 73-year-old male with past medical history significant for morbid obesity, peripheral neuropathy, diabetes mellitus, hyperlipidemia and hypertension. Patient is a long-term resident of [facility] in reportedly is not very active and is mostly bedbound. Patient was brought into the emergency room by EMS from [facility] for shortness of breath and hypoxia. Per report patient had an episode of shortness of breath with O2 sats of 70% on room air however patient refused transport to the ER. Thereafter patient had another episode of shortness of breath and hypoxia. By this time patient had been treated with Zyvox for lower extremity wound for positive MRSA as well as recently started on Levaquin for pneumonia at the care home [facility]. Patient has a PICC line in place and has been treated with IV antibiotics. On arrival his blood pressure was 145/63, heart rate of 81, O2 sats 97% on 10 L simple mask. His blood gas was unremarkable. His creatinine was 1.93 and previously in May 2018 was 1.83. His chest x-ray showed bilateral lung consolidation possible element of pulmonary edema as well as small bilateral pleural effusion. On 08/09 patient became more hypoxemic again requiring the placement on the BiPAP ventilator and transferred to ICU. Critical care services were consulted for management of respiratory failure. 08/10: Afebrile. Currently on 4 L nasal cannula saturations are 90%. Patient normally wears CPAP/BiPAP at home according to patient. Since seen by Dr. Slim Estevez previous hospitalization. SUBJECTIVE: 08/11: Reconsulted this patient remains on BiPAP. Still appears to be normal sinus rhythm. Echocardiogram revealed dilated LV/LVH, left atrial enlargement. Possible calcified lesion left coronary cusp. Currently on furosemide 40 mg IV twice daily. Likely source of ARDS will likely need intubation. 08/12: intubated yesterday. right chest tube placed with > 1L output. CXR improved on the right, but with persistence of left plural effusion. Also, transthoracic echocardiography has failed to have adequate visualization of cardiac windows to rule in or rule out cardiogenic source of hypoxia. 08/13: good diuresis again. left chest tube placed yesterday with 1100cc output yesterday. right chest tube with only 60mL output. CHIKA done yesterday with Grade III diastolic dysfunction as well as probable left atrial appendage thrombus: on anticoagulation. Objective Vital Signs / I&O: Vital Signs 08/12/18 07:38 08/12/18 08:00 08/12/18 09:11 Temperature 37.0 C Pulse Rate 80 78 Respiratory Rate 18 18 18 Blood Pressure 94/61 L Pulse Oximetry 95 94 L 08/12/18 11:30 08/12/18 12:00 08/12/18 15:19 Temperature 36.7 C Pulse Rate 77 72 Respiratory Rate 18 18 18 Blood Pressure 129/68 Pulse Oximetry 96 96 96 08/12/18 16:00 08/12/18 19:36 08/12/18 19:38 Temperature 37.1 C Pulse Rate 73 76 Respiratory Rate 18 18 20 Blood Pressure 100/55 L Pulse Oximetry 96 96 08/12/18 20:00 08/13/18 00:00 08/13/18 00:25 Temperature 37.0 C 36.6 C Pulse Rate 63 65 Respiratory Rate 18 14 18 Blood Pressure 112/56 L 103/58 L Pulse Oximetry 96 96 96 08/13/18 02:51 08/13/18 04:00 08/13/18 04:15 Temperature 36.8 C Pulse Rate 62 66 Respiratory Rate 18 20 18 Blood Pressure 117/77 Pulse Oximetry 97 96 Intake & Output 08/12/18 08/13/18 08/13/18 18:59 06:59 18:59 Intake Total 1083 / 1083 1802 / 1802 Output Total 2900 / 2900 1570 / 1570 Balance -1817 / -1817 232 / 232 Weight 154.8 kg Intake: IV 725 / 725 1100 / 1100 Bumex Inj 25 mg In 100 ml @ 0.5 100 / 100 MG/HR 2 mls/hr IV.CONT .Q24H [facility] Rx#:[id number] Heparin/D5W 25,000 U/250 mL 25, 250 / 250 000 unit In 250 ml @ Per Protocol IV.CONT TITRATE PRN Rx #:[id number] Flexbumin 25% Inj 50 ML @ 12.5 50 / 50 100 / 100 mls/hr IV.SIG Q8H [facility] Rx#: [id number] Maxipime Inj 1,000 MG In NS Inj 200 / 200 200 / 200 100 ML @ 200 mls/hr IV.SIG Q8H [facility] Rx#:[id number] Zyvox 600 mg Premix 300 ML @ 300 / 300 300 / 300 300 mls/hr IV.SIG Q12H [facility] Rx#: [id number] Levophed-Dextrose 4 mg/250 ml 75 / 75 Drip 4 mg In 250 ml @ 0 mls/hr IV.SIG .[facility] Rx#: [id number] fentaNYL 10 mcg/mL Premix Drip 250 / 250 2,500 mcg In 250 ml @ 50 MCG/HR 5 mls/hr IV.SIG TITRATE PRN Rx #:[id number] Tube Feeding 238 / 238 302 / 302 Tube Irrigant 120 / 120 Water Bolus Amount 400 / 400 Output: Urine Amount (Catheter) 1750 / 1750 1500 / 1500 Indwelling Urethral Catheter 1750 / 1750 1500 / 1500 Chest Tube Drainage 1150 / 1150 70 / 70 Left Mid-Axillary Chest 1090 / 1090 70 / 70 Right Mid-Axillary Chest 60 / 60 0 / 0 Other: # Bowel Movements 0 0 Result Diagrams: 08/13/18 06:42 08/13/18 06:42 Objective Remarks: GENERAL: 73-year-old male, lying in bed, intubated, sedated SKIN: Cool and dry HEAD: Atraumatic. Normocephalic. EYES: Pupils equal and round. No scleral icterus. No injection or drainage. ENT: No nasal bleeding or discharge. Mucous membranes pink and moist. NECK: Trachea midline. No JVD. CARDIOVASCULAR: Regular rate and rhythm. RESPIRATORY: Diminished breath sounds. Few fine crackles appreciated anteriorly. No wheezing. right chest tube in place with serous output, to suction, no air leak. left chest tube in place to suction, serous output. GASTROINTESTINAL: Abdomen obese and protuberant. no guarding. MUSCULOSKELETAL: Extremities with right lower extremity with destruction of the second/third/fourth digits foot to bone. Currently covered with Juan bandage NEUROLOGICAL: RASS -2. awakens and follows commands. Assessment and Plan - Assessment and Plan Plan: Assessment: 73yM morbidly obese with refractory acute hypoxic and hypercarbic respiratory failure. Likely secondary to mixed systolic- and diastolic heart failure exacerbation. Continue forced diuresis. JOSE worsens and likely secondary to ATN and venous hypertension, as patient continues to have intravascular volume overload. Critically ill and off-pathway. If we remove active and aggressive support, he would . Neuro/Psych: Depression Peripheral neuropathy History of right frontal CVA Currently on fentanyl for sedation/analgesia while intubated Goal of RASS -2 Daily sedation vacation Continue acetaminophen 650 every 6 hours as needed fever Morphine sulfate 2 mg IV every 4 hours as needed pain 6 or 10 Gabapentin 300 mg p.o. every 6 hours peripheral neuropathy Duloxetine 30 mg daily for depression continue CV: Essential hypertension Hyperlipidemia History of non-STEMI EF 35-40% Grade III Diastolic Dysfunction Acute Congestive Heart Failure Exacerbation, mixed systolic- and diastolic- type. Left atrial appendage thrombus Continue amlodipine 5 mg daily, carvedilol 3.125 mg twice daily and hydralazine 50 mg 3 times daily for hypertension Continue atorvastatin 20 mg daily for hyperlipidemia Last echo 06/12 revealed LVEF - hard to assess but suspect mildly impaired. Current echocardiogram 06/11 revealed EF around 55%. Dilated LV/LVH and left atrial enlargement. PAP 26 MAC. Possible left coronary cusp calcification. CHIKA 08/13: EF 35-40%, Grade III Diastolic Dysfunction, probable left atrial thrombus. continue bumex infusion at 0.5mg/hr add metolazone 5mg po BID add one dose diamox 500mg iv x 1. goal at least net -2L/24h. Resp: Acute hypoxic and hypercarbic respiratory failure- persistent OHS Bilateral pleural effusions Pulmonary edema intubated 06/11. severe bilateral pulmonary infiltrates as well as bilateral large pleural effusions likely cause is multifactorial- large cardiogenic pulmonary edema component right chest tube placed 08/11: keep to suction today left chest tube placed 08/12: keep to suction today Ventilator bundle Titrate to keep saturations greater than 90% Albuterol/ipratropium aerosols every 6 hours with albuterol aerosols every 2 hours as needed dyspnea GI: Gastroesophageal reflux disease Hypoalbuminemia Severe acute protein calorie malnutrition Glucerna 1.5 goal 60 cc an hour Result for GI prophylaxis/home medication pantoprazole 40 mg daily Docusate sodium/senna 1 tablet twice daily for bowel regimen along with polythene glycol 17 g twice daily pre-albumin 12 on 08/13 : BPH Continue tamsulosin 0.4 mg daily for BPH Endo: Diabetes mellitus Currently on sliding scale insulin aspart medium protocol Insulin detemir 5 units twice daily TSH was 2.77 Renal: Acute kidney injury superimposed on CKD Chronic kidney disease stage II Renal ultrasound scan revealed increased echogenicity to the right kidney Creatinine continues to increase, but likely secondary to ATN and elevated renal vein pressure from volume overload continue forced diuresis keep maldonado for accurate q1h I/Os. Monitor urine output Accurate I's and O's Heme: Thrombocytopenia Normocytic anemia Left Atrial appendage thrombus Monitor CBCs daily. Follow trends. No indication for transfusion of blood products at this time. therapeutic anticoagulation with heparin drip for ENID thrombus. 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 Fifth metatarsal head with destruction. Will likely need amputation Followed by podiatry. Access -Right upper extremity PICC line. Prophylaxis -GI -lansoprazole -DVT -heparin drip Critical care time 37 minutes, exclusive of separately billable procedures.
[2018-08-13] MEDS: Azithromycin 250 MG Tablet PO SCH (08:53)
[2018-08-13] MEDS: metOLazone 5 MG Tablet PO SCH ×2 (08:53→22:33)
[2018-08-13] MEDS: Aspirin 325 MG Tablet PO SCH (08:53)
[2018-08-13] MEDS: Senna/Docusate Sodium 8.6/50 MG Tablet PO SCH ×2 (08:53→22:35)
[2018-08-13] MEDS: Polyethylene Glycol 3350 17 GM Packet PO SCH ×2 (08:53→22:33)
[2018-08-13] MEDS: Chlorhexidine 0.12% Oral Kit 15 ML UDC OROPHARYNG SCH ×2 (08:54→22:35)
[2018-08-13] MEDS: Carboxymethylcellulose 0.5% Opth Drops 15 ML Bottle EACH EYE SCH (08:55)
[2018-08-13] MEDS: guaiFENesin 600 MG ER Tablet PO SCH ×2 (08:56→22:34)
--- NOTE | 2018-08-13 09:16 | XR ---
EXAM DATE: 08/13/2018 12:00 AM EDT AGE/SEX: 73 years / Male INDICATIONS: Respiratory failure. CLINICAL DATA: This is the patient's subsequent encounter. Patient reports that signs and symptoms h ave been present for 1 week and indicates a pain score of Nonresponsive. MEDICAL/SURGICAL HISTORY: Non-responsive. Non-responsive. COMPARISON: C, CHEST 1V SINGLE AP, 08/12/2018. . FINDINGS: Endotracheal tube and nasogastric tube remain in place. Diffuse bilateral primarily basilar lung opac ities persist, grossly unchanged. Visualized cardiac contours are stable. CONCLUSION: Persistent bibasilar infiltrates. Electronically signed by: Xander Salvador MD 08/13/2018 9:14 AM EDT
[2018-08-13] MEDS: Insulin Detemir Inj 1,000 UNIT/10 ML Vial SQ SCH ×2 (10:18→22:35)
[2018-08-13] MEDS: amLODIPine 5 MG Tablet PO SCH (10:19)
--- NOTE | 2018-08-13 11:41 | P.PNPL ---
Subjective Interval history: 73 YOWM with COPD,SHEELA,Resp insuff Developed RF, intubated CT chest showed Bilat infilt and pl eff Rt chest tube was flushed On Heparin and Bumex drip On PRVC AC 18,Fi02 40% Physical Exam Vital signs: Vital Signs 08/12/18 12:00 08/12/18 15:19 08/12/18 16:00 Temperature 98.1 F 98.7 F Pulse Rate 77 72 73 Respiratory Rate 18 18 18 Blood Pressure 129/68 100/55 L Pulse Oximetry 96 96 96 08/12/18 19:36 08/12/18 19:38 08/12/18 20:00 Temperature 98.6 F Pulse Rate 76 63 Respiratory Rate 18 20 18 Blood Pressure 112/56 L Pulse Oximetry 96 96 08/13/18 00:00 08/13/18 00:25 08/13/18 02:51 Temperature 98 F Pulse Rate 65 62 Respiratory Rate 14 18 18 Blood Pressure 103/58 L Pulse Oximetry 96 96 08/13/18 04:00 08/13/18 04:15 08/13/18 07:42 Temperature 98.3 F Pulse Rate 66 Respiratory Rate 20 18 18 Blood Pressure 117/77 Pulse Oximetry 97 96 97 08/13/18 07:44 08/13/18 08:00 08/13/18 11:29 Temperature 98.2 F Pulse Rate 73 75 Respiratory Rate 18 17 18 Blood Pressure 118/58 L Pulse Oximetry 97 Intake & Output 08/12/18 08/13/18 08/13/18 18:59 06:59 18:59 Intake Total 1083 / 1083 1802 / 1802 Output Total 2900 / 2900 1570 / 1570 Balance -1817 / -1817 232 / 232 Weight 154.8 kg Intake: IV 725 / 725 1100 / 1100 Bumex Inj 25 mg In 100 ml @ 0.5 100 / 100 MG/HR 2 mls/hr IV.CONT .Q24H [facility] Rx#:[id number] Heparin/D5W 25,000 U/250 mL 25, 250 / 250 000 unit In 250 ml @ Per Protocol IV.CONT TITRATE PRN Rx #:[id number] Flexbumin 25% Inj 50 ML @ 12.5 50 / 50 100 / 100 mls/hr IV.SIG Q8H [facility] Rx#: [id number] Maxipime Inj 1,000 MG In NS Inj 200 / 200 200 / 200 100 ML @ 200 mls/hr IV.SIG Q8H [facility] Rx#:[id number] Zyvox 600 mg Premix 300 ML @ 300 / 300 300 / 300 300 mls/hr IV.SIG Q12H [facility] Rx#: [id number] Levophed-Dextrose 4 mg/250 ml 75 / 75 Drip 4 mg In 250 ml @ 0 mls/hr IV.SIG .[facility] Rx#: [id number] fentaNYL 10 mcg/mL Premix Drip 250 / 250 2,500 mcg In 250 ml @ 50 MCG/HR 5 mls/hr IV.SIG TITRATE PRN Rx #:[id number] Tube Feeding 238 / 238 302 / 302 Tube Irrigant 120 / 120 Water Bolus Amount 400 / 400 Output: Urine Amount (Catheter) 1750 / 1750 1500 / 1500 Indwelling Urethral Catheter 1750 / 1750 1500 / 1500 Chest Tube Drainage 1150 / 1150 70 / 70 Left Mid-Axillary Chest 1090 / 1090 70 / 70 Right Mid-Axillary Chest 60 / 60 0 / 0 Other: # Bowel Movements 0 0 GENERAL: Obese WM, On vent, opens eyes and follows commands SKIN: Warm and dry. HEAD: Normocephalic. EYES: No scleral icterus. No injection or drainage. NECK: Supple, trachea midline. No JVD or lymphadenopathy. CARDIOVASCULAR: Regular rate and rhythm without murmurs, gallops, or rubs. RESPIRATORY: Breath sounds equal bilaterally. No accessory muscle use. Chest tubes draining GASTROINTESTINAL: Abdomen soft, non-tender, nondistended. MUSCULOSKELETAL: No cyanosis, or edema. BACK: Nontender without obvious deformity. No CVA tenderness. - Urinary Catheter Management Indwelling Urethral Catheter Cath placed during this visit: yes Reason for continuing: Hourly intake/output Insertion date: 08/11/18 Insertion time: 12:00 Assessment and Plan - Plan IMPRESSION: 1. Respiratory failure. 2. Hypoxia. 3. Morbid obesity. 4. Likely sleep apnea. 5. Osteomyelitis. 6. Pneumonia. 7. Pulmonary edema. 8. Renal insufficiency. 9. Pleural effusion, s/p rt chest tube PLAN: Vent support PRVC AC 18,Fi02 40$ Sedation with Fentanyl Diurease Monitor Lytes Abx per ID Bumex drip Heparin IV
--- NOTE | 2018-08-13 12:24 | P.PNPAL ---
Reason for Visit Reason for visit: a. To assist with evaluation and management of symptoms including: Pain, dyspnea, debility. b. To assist medical decision maker(s) with: better understanding of current medical conditions; weighing benefits/burdens of medical treatment options; making medical treatment decisions. Subjective Subjective/Interval History: Patient seen and examined in ICU. No family or friends at bedside. Discussed with Dr. Wu post bedside CHIKA, revealed grade 3 diastolic heart failure, LVEF 35-40%, pulmonary hypertension with RVSP 51 mmHg, left atrial appendage thrombus. Patient remains on mechanical ventilator PRVC now weaned to 40% FiO2, 8 PEEP, lightly sedated on fentanyl 150 mcg/h, awakes to verbal and tactile stimuli, appears uncomfortable, anxious. Left chest tube with 1160 mL and right chest tube 60 mL drainage overnight, cumulative total 2220 mL. He is not breathing over the vent. Aggressive diuresis is underway with albumin, Bumex drip 0.5 mg an hour and metolazone 5 mg twice daily. He has maintained a negative fluid balance for the last 48 hours. Minimal improvement seen in chest x-ray overnight. He remains on Zyvox, cefepime and azithromycin for foot infection and suspected pneumonia. All cultures remain negative thus far. No leukocytosis is noted. Renal indices are worsening with diuresis. His presenting weight was 381 pounds and currently is at 341 pounds, a net 40 pound loss, primarily via diuresis. . Family/Friend Interactions: Spoke individually with his sisters, Lindsey and Frances. Lindsey is the designated healthcare surrogate, however Frances is an RN and Lindsey is attempting to support family harmony. Lindsey states that she has had multiple conversations with her brother regarding his wishes and he did not want these aggressive interventions and would not be happy with this quality of life. Frances stated that she is concerned about his acute decline since entering the hospital and states she thinks "something was missed". Reviewed patient's hospital course from from admission where he presented on a 10 L simple mask, awake, alert and talkative and was treated with antibiotics, diuretics and guaifenesin, through his hospital course when he required upgrade from nasal cannula to simple mask due to low saturations and after MRI and radiology continued to decline and become more dyspneic and lethargic when he was transferred to intensive care services and subsequently intubated, through his intensive care course through today with her. In spite of the detailed review, she was unable to isolate a point that she felt something was "missed", but unconvinced that his combined systolic and moderately severe diastolic heart failure, pulmonary hypertension, COPD, obstructive sleep apnea and obesity hypoventilation syndrome could be responsible for his failure. Frances is at this time attempting to arrange a flight down to see her brother but states she would have to return on Thursday due to family responsibilities. Assisted her with locations of local airports to facilitate flight arrangements. . Advance Directives Advance Directives Date on File: 06/15/18 Health Care Surrogate Name and Number: Lindsey Chand, sister: [phone] Objective Vital Signs: Vital Signs 08/12/18 15:19 08/12/18 16:00 08/12/18 19:36 Temperature 98.7 F Pulse Rate 72 73 Respiratory Rate 18 18 18 Blood Pressure 100/55 L Pulse Oximetry 96 96 96 08/12/18 19:38 08/12/18 20:00 08/13/18 00:00 Temperature 98.6 F 98 F Pulse Rate 76 63 65 Respiratory Rate 20 18 14 Blood Pressure 112/56 L 103/58 L Pulse Oximetry 96 96 08/13/18 00:25 08/13/18 02:51 08/13/18 04:00 Temperature 98.3 F Pulse Rate 62 66 Respiratory Rate 18 18 20 Blood Pressure 117/77 Pulse Oximetry 96 97 08/13/18 04:15 08/13/18 07:42 08/13/18 07:44 Temperature Pulse Rate 73 Respiratory Rate 18 18 18 Blood Pressure Pulse Oximetry 96 97 08/13/18 08:00 08/13/18 11:29 Temperature 98.2 F Pulse Rate 75 Respiratory Rate 17 18 Blood Pressure 118/58 L Pulse Oximetry 97 Intake & Output 08/12/18 08/13/18 08/13/18 18:59 06:59 18:59 Intake Total 1083 / 1083 1802 / 1802 50 / 50 Output Total 2900 / 2900 1570 / 1570 Balance -1817 / -1817 232 / 232 50 / 50 Weight 341 lb 4.409 oz Intake: IV 725 / 725 1100 / 1100 50 / 50 Bumex Inj 25 mg In 100 ml @ 0.5 100 / 100 MG/HR 2 mls/hr IV.CONT .Q24H [facility] Rx#:[id number] Heparin/D5W 25,000 U/250 mL 25, 250 / 250 000 unit In 250 ml @ Per Protocol IV.CONT TITRATE PRN Rx #:[id number] Flexbumin 25% Inj 50 ML @ 12.5 50 / 50 100 / 100 50 / 50 mls/hr IV.SIG Q8H [facility] Rx#: [id number] Maxipime Inj 1,000 MG In NS Inj 200 / 200 200 / 200 100 ML @ 200 mls/hr IV.SIG Q8H [facility] Rx#:[id number] Zyvox 600 mg Premix 300 ML @ 300 / 300 300 / 300 300 mls/hr IV.SIG Q12H [facility] Rx#: [id number] Levophed-Dextrose 4 mg/250 ml 75 / 75 Drip 4 mg In 250 ml @ 0 mls/hr IV.SIG .[facility] Rx#: [id number] fentaNYL 10 mcg/mL Premix Drip 250 / 250 2,500 mcg In 250 ml @ 50 MCG/HR 5 mls/hr IV.SIG TITRATE PRN Rx #:[id number] Tube Feeding 238 / 238 302 / 302 Tube Irrigant 120 / 120 Water Bolus Amount 400 / 400 Output: Urine Amount (Catheter) 1750 / 1750 1500 / 1500 Indwelling Urethral Catheter 1750 / 1750 1500 / 1500 Chest Tube Drainage 1150 / 1150 70 / 70 Left Mid-Axillary Chest 1090 / 1090 70 / 70 Right Mid-Axillary Chest 60 / 60 0 / 0 Other: # Bowel Movements 0 0 Physical Exam: CONSTITUTIONAL/GENERAL: This is a morbidly obese gentleman, critically ill patient, on [facility] vent. TUBES/LINES/DRAINS: ETT, OG, PIV right, PIV left upper, bilateral chest tubes, podus boots. SKIN: No jaundice, rashes, or lesions. Ecchymoses on upper extremities. Dressing noted on right foot. Skin temperature cool. HEAD: Atraumatic. Normocephalic. EYES: Pupils equal and round. No scleral icterus. No injection or drainage. ENT: Grossly normal hearing. Nose without bleeding or purulent drainage. Throat difficult to visualize due to tubes. NECK: Trachea midline. CARDIOVASCULAR: S1, S2, slightly irregular, distant heart tones a, no S3, S4, rub, murmur or gallop auscultated.. RESPIRATORY/CHEST: On mech vent, crackles noted right > left, diminished breath sounds bilaterally. GASTROINTESTINAL: Abdomen protuberant, soft. No guarding. Bowel sounds present. GENITOURINARY: Without palpable bladder distension. Greer to bedside drainage. MUSCULOSKELETAL: Right foot with dressing in place. Podus boots in place. NEUROLOGICAL: Lightly sedated, arousable, makes eye contact, focuses, tracks, squeezes hands to command. PSYCHIATRIC: Anxious and slightly agitated when awakened, remains on sedation with fentanyl. Diagnostic Tests Laboratory: Laboratory Results - last 72 hr 08/10/18 08/10/18 08/10/18 12:41 17:41 20:58 WBC RBC Hgb Hct MCV MCH MCHC RDW Plt Count MPV Neut % (Auto) Lymph % (Auto) Hendry % (Auto) Eos % (Auto) Baso % (Auto) Neut # (Auto) Lymph # (Auto) Hendry # (Auto) Eos # (Auto) Baso # (Auto) WBC Differential Differential Comment APTT Puncture Site Patient Temperature O2 Saturation ABG pH ABG pCO2 ABG pO2 ABG HCO3 ABG O2 Content ABG Base Excess ABG Methemoglobin Parker Test Hemoglobin Carboxyhemoglobin O2 Delivery Device Vent Setting Inspired O2 Critical Value Sodium Potassium Chloride Carbon Dioxide Anion Gap BUN Creatinine Estimated GFR POC Glucose 146 H 231 H 198 H Random Glucose Calcium Phosphorus Magnesium Total Bilirubin AST ALT Alkaline Phosphatase Lactate Dehydrogenase Total Creatine Kinase Troponin I B-Natriuretic Peptide Total Protein Albumin Prealbumin Pleural pH Pleural RBC Pleural Nuc Cells Pleural Neutrophils Pleural Monocytes Pleural Total Protein Pleural LDH Pleural Glucose 08/11/18 08/11/18 08/11/18 04:15 04:15 08:27 WBC 7.2 RBC 2.99 L Hgb 8.5 L Hct 26.0 L MCV 86.9 MCH 28.6 MCHC 32.9 RDW 16.4 Plt Count 130 L MPV 8.7 Neut % (Auto) 68.2 Lymph % (Auto) 19.0 Hendry % (Auto) 7.3 Eos % (Auto) 4.6 H Baso % (Auto) 0.9 Neut # (Auto) 4.9 Lymph # (Auto) 1.4 Hendry # (Auto) 0.5 Eos # (Auto) 0.3 Baso # (Auto) 0.1 WBC Differential . Differential Comment Auto diff final APTT Puncture Site Patient Temperature O2 Saturation ABG pH ABG pCO2 ABG pO2 ABG HCO3 ABG O2 Content ABG Base Excess ABG Methemoglobin Parker Test Hemoglobin Carboxyhemoglobin O2 Delivery Device Vent Setting Inspired O2 Critical Value Sodium 141 Potassium 4.7 Chloride 109 H Carbon Dioxide 26.3 Anion Gap 6 BUN 65 H Creatinine 1.69 H Estimated GFR 40 L POC Glucose 171 H Random Glucose 175 H Calcium 7.9 L Phosphorus 4.0 Magnesium 2.5 Total Bilirubin 0.3 AST 6 L ALT 12 Alkaline Phosphatase 66 Lactate Dehydrogenase Total Creatine Kinase Troponin I B-Natriuretic Peptide Total Protein 6.9 Albumin 1.8 L Prealbumin Pleural pH Pleural RBC Pleural Nuc Cells Pleural Neutrophils Pleural Monocytes Pleural Total Protein Pleural LDH Pleural Glucose 08/11/18 08/11/18 08/11/18 10:16 12:11 14:19 WBC RBC Hgb Hct MCV MCH MCHC RDW Plt Count MPV Neut % (Auto) Lymph % (Auto) Hendry % (Auto) Eos % (Auto) Baso % (Auto) Neut # (Auto) Lymph # (Auto) Hendry # (Auto) Eos # (Auto) Baso # (Auto) WBC Differential Differential Comment APTT Puncture Site Right radial Right radial Patient Temperature 98.6 98.6 O2 Saturation 96 87 L* ABG pH 7.32 L 7.33 L ABG pCO2 48 H 46 H ABG pO2 115 56 L* ABG HCO3 24 24 ABG O2 Content 17.7 15.1 ABG Base Excess -0.9 -1.4 ABG Methemoglobin 1.6 1.5 Parker Test Present Present Hemoglobin 13.1 12.3 Carboxyhemoglobin 1.0 1.1 O2 Delivery Device Bipap Vent Vent Setting Ipap 15 epap +5 Prvc 18/650/1.0/+8 Inspired O2 45 90 Critical Value No Yes Sodium Potassium Chloride Carbon Dioxide Anion Gap BUN Creatinine Estimated GFR POC Glucose 166 H Random Glucose Calcium Phosphorus Magnesium Total Bilirubin AST ALT Alkaline Phosphatase Lactate Dehydrogenase Total Creatine Kinase Troponin I B-Natriuretic Peptide Total Protein Albumin Prealbumin Pleural pH Pleural RBC Pleural Nuc Cells Pleural Neutrophils Pleural Monocytes Pleural Total Protein Pleural LDH Pleural Glucose 08/11/18 08/11/18 08/11/18 17:02 18:17 18:50 WBC RBC Hgb Hct MCV MCH MCHC RDW Plt Count MPV Neut % (Auto) Lymph % (Auto) Hendry % (Auto) Eos % (Auto) Baso % (Auto) Neut # (Auto) Lymph # (Auto) Hendry # (Auto) Eos # (Auto) Baso # (Auto) WBC Differential Differential Comment APTT Puncture Site Patient Temperature O2 Saturation ABG pH ABG pCO2 ABG pO2 ABG HCO3 ABG O2 Content ABG Base Excess ABG Methemoglobin Parker Test Hemoglobin Carboxyhemoglobin O2 Delivery Device Vent Setting Inspired O2 Critical Value Sodium Potassium Chloride Carbon Dioxide Anion Gap BUN Creatinine Estimated GFR POC Glucose 140 H Random Glucose Calcium Phosphorus Magnesium Total Bilirubin AST ALT Alkaline Phosphatase Lactate Dehydrogenase Total Creatine Kinase Troponin I B-Natriuretic Peptide Total Protein Albumin Prealbumin Pleural pH 8.5 Pleural RBC 37848 H Pleural Nuc Cells 184 H Pleural Neutrophils 75 Pleural Monocytes 25 Pleural Total Protein 2.0 Pleural LDH 69 Pleural Glucose 150 08/11/18 08/11/18 08/11/18 19:53 21:21 23:44 WBC RBC Hgb Hct MCV MCH MCHC RDW Plt Count MPV Neut % (Auto) Lymph % (Auto) Hendry % (Auto) Eos % (Auto) Baso % (Auto) Neut # (Auto) Lymph # (Auto) Hendry # (Auto) Eos # (Auto) Baso # (Auto) WBC Differential Differential Comment APTT Puncture Site Patient Temperature O2 Saturation ABG pH ABG pCO2 ABG pO2 ABG HCO3 ABG O2 Content ABG Base Excess ABG Methemoglobin Parker Test Hemoglobin Carboxyhemoglobin O2 Delivery Device Vent Setting Inspired O2 Critical Value Sodium 142 Potassium 4.4 Chloride 109 H Carbon Dioxide 23.4 Anion Gap 10 BUN 69 H Creatinine 1.79 H Estimated GFR 37 L POC Glucose 134 H 118 H Random Glucose 129 H Calcium 8.4 L Phosphorus Magnesium Total Bilirubin AST ALT Alkaline Phosphatase Lactate Dehydrogenase 147 Total Creatine Kinase Troponin I B-Natriuretic Peptide Total Protein Albumin Prealbumin Pleural pH Pleural RBC Pleural Nuc Cells Pleural Neutrophils Pleural Monocytes Pleural Total Protein Pleural LDH Pleural Glucose 08/12/18 08/12/18 08/12/18 02:41 02:41 05:56 WBC 7.7 RBC 2.95 L Hgb 8.3 L Hct 25.7 L MCV 87.1 MCH 28.3 MCHC 32.5 RDW 16.5 Plt Count 145 L MPV 8.6 Neut % (Auto) 64.7 Lymph % (Auto) 20.9 Hendry % (Auto) 8.4 H Eos % (Auto) 5.0 H Baso % (Auto) 1.0 Neut # (Auto) 5.0 Lymph # (Auto) 1.6 Hendry # (Auto) 0.6 Eos # (Auto) 0.4 Baso # (Auto) 0.1 WBC Differential . Differential Comment Auto diff final APTT Puncture Site Patient Temperature O2 Saturation ABG pH ABG pCO2 ABG pO2 ABG HCO3 ABG O2 Content ABG Base Excess ABG Methemoglobin Parker Test Hemoglobin Carboxyhemoglobin O2 Delivery Device Vent Setting Inspired O2 Critical Value Sodium 142 Potassium 4.4 Chloride 110 H Carbon Dioxide 23.5 Anion Gap 9 BUN 68 H Creatinine 1.90 H Estimated GFR 35 L POC Glucose 159 H Random Glucose 114 H Calcium 8.3 L Phosphorus 2.7 D Magnesium 2.4 Total Bilirubin 0.5 AST 12 L ALT 13 Alkaline Phosphatase 68 Lactate Dehydrogenase Total Creatine Kinase 41 Troponin I 0.02 B-Natriuretic Peptide Total Protein 7.1 Albumin 1.8 L Prealbumin Pleural pH Pleural RBC Pleural Nuc Cells Pleural Neutrophils Pleural Monocytes Pleural Total Protein Pleural LDH Pleural Glucose 08/12/18 08/12/18 08/12/18 09:47 11:27 17:10 WBC RBC Hgb Hct MCV MCH MCHC RDW Plt Count MPV Neut % (Auto) Lymph % (Auto) Hendry % (Auto) Eos % (Auto) Baso % (Auto) Neut # (Auto) Lymph # (Auto) Hendry # (Auto) Eos # (Auto) Baso # (Auto) WBC Differential Differential Comment APTT 27.1 Puncture Site Patient Temperature O2 Saturation ABG pH ABG pCO2 ABG pO2 ABG HCO3 ABG O2 Content ABG Base Excess ABG Methemoglobin Parker Test Hemoglobin Carboxyhemoglobin O2 Delivery Device Vent Setting Inspired O2 Critical Value Sodium Potassium Chloride Carbon Dioxide Anion Gap BUN Creatinine Estimated GFR POC Glucose 202 H 174 H Random Glucose Calcium Phosphorus Magnesium Total Bilirubin AST ALT Alkaline Phosphatase Lactate Dehydrogenase Total Creatine Kinase Troponin I B-Natriuretic Peptide Total Protein Albumin Prealbumin Pleural pH Pleural RBC Pleural Nuc Cells Pleural Neutrophils Pleural Monocytes Pleural Total Protein Pleural LDH Pleural Glucose 08/12/18 08/12/18 08/13/18 18:04 21:34 02:02 WBC RBC Hgb Hct MCV MCH MCHC RDW Plt Count MPV Neut % (Auto) Lymph % (Auto) Hendry % (Auto) Eos % (Auto) Baso % (Auto) Neut # (Auto) Lymph # (Auto) Hendry # (Auto) Eos # (Auto) Baso # (Auto) WBC Differential Differential Comment APTT 49.9 H D Puncture Site Patient Temperature O2 Saturation ABG pH ABG pCO2 ABG pO2 ABG HCO3 ABG O2 Content ABG Base Excess ABG Methemoglobin Parker Test Hemoglobin Carboxyhemoglobin O2 Delivery Device Vent Setting Inspired O2 Critical Value Sodium Potassium Chloride Carbon Dioxide Anion Gap BUN Creatinine Estimated GFR POC Glucose 199 H 179 H Random Glucose Calcium Phosphorus Magnesium Total Bilirubin AST ALT Alkaline Phosphatase Lactate Dehydrogenase Total Creatine Kinase Troponin I B-Natriuretic Peptide Total Protein Albumin Prealbumin Pleural pH Pleural RBC Pleural Nuc Cells Pleural Neutrophils Pleural Monocytes Pleural Total Protein Pleural LDH Pleural Glucose 08/13/18 08/13/18 08/13/18 05:08 06:42 06:42 WBC 7.4 RBC 2.78 L Hgb 7.9 L Hct 24.5 L MCV 88.0 MCH 28.2 MCHC 32.1 RDW 17.0 Plt Count 126 L MPV 8.8 Neut % (Auto) 66.4 Lymph % (Auto) 20.9 Hendry % (Auto) 9.4 H Eos % (Auto) 2.5 Baso % (Auto) 0.8 Neut # (Auto) 4.9 Lymph # (Auto) 1.5 Hendry # (Auto) 0.7 Eos # (Auto) 0.2 Baso # (Auto) 0.1 WBC Differential . Differential Comment Auto diff final APTT Puncture Site Patient Temperature O2 Saturation ABG pH ABG pCO2 ABG pO2 ABG HCO3 ABG O2 Content ABG Base Excess ABG Methemoglobin Parker Test Hemoglobin Carboxyhemoglobin O2 Delivery Device Vent Setting Inspired O2 Critical Value Sodium 142 Potassium 4.3 Chloride 107 Carbon Dioxide 26.5 Anion Gap 9 BUN 78 H Creatinine 2.23 H Estimated GFR 29 L POC Glucose 189 H Random Glucose 196 H Calcium 8.6 Phosphorus 3.8 D Magnesium 2.5 Total Bilirubin 0.5 AST 14 L ALT 15 Alkaline Phosphatase 69 Lactate Dehydrogenase Total Creatine Kinase Troponin I B-Natriuretic Peptide Total Protein 7.2 Albumin 2.3 L Prealbumin 12 L Pleural pH Pleural RBC Pleural Nuc Cells Pleural Neutrophils Pleural Monocytes Pleural Total Protein Pleural LDH Pleural Glucose 08/13/18 08/13/18 06:42 08:19 WBC RBC Hgb Hct MCV MCH MCHC RDW Plt Count MPV Neut % (Auto) Lymph % (Auto) Hendry % (Auto) Eos % (Auto) Baso % (Auto) Neut # (Auto) Lymph # (Auto) Hendry # (Auto) Eos # (Auto) Baso # (Auto) WBC Differential Differential Comment APTT 53.3 H Puncture Site Patient Temperature O2 Saturation ABG pH ABG pCO2 ABG pO2 ABG HCO3 ABG O2 Content ABG Base Excess ABG Methemoglobin Parker Test Hemoglobin Carboxyhemoglobin O2 Delivery Device Vent Setting Inspired O2 Critical Value Sodium Potassium Chloride Carbon Dioxide Anion Gap BUN Creatinine Estimated GFR POC Glucose Random Glucose Calcium Phosphorus Magnesium Total Bilirubin AST ALT Alkaline Phosphatase Lactate Dehydrogenase Total Creatine Kinase Troponin I B-Natriuretic Peptide 86 Total Protein Albumin Prealbumin Pleural pH Pleural RBC Pleural Nuc Cells Pleural Neutrophils Pleural Monocytes Pleural Total Protein Pleural LDH Pleural Glucose Result Diagrams: 08/13/18 06:42 08/13/18 06:42 Microbiology: Microbiology 08/12/18 08:45 Gram Stain - Final Fluid - Pleural fluid Body Fluid Culture - Preliminary No growth in 24 hours 08/11/18 17:02 Gram Stain - Final Fluid - Pleural fluid Body Fluid Culture - Preliminary No growth in 48 hours 08/11/18 17:02 Fungal Smear - Final Abscess - Lung No fungal elements seen 08/07/18 22:45 Aerobic Blood Culture - Final Blood - Line No growth in 5 days Anaerobic Blood Culture - Final No growth in 5 days 08/07/18 16:40 Aerobic Blood Culture - Final Blood - Peripheral No growth in 5 days Anaerobic Blood Culture - Final No growth in 5 days 08/07/18 16:45 Aerobic Blood Culture - Final Blood - Peripheral No growth in 5 days Anaerobic Blood Culture - Final No growth in 5 days 08/11/18 13:45 Streptococcus pneumoniae Antigen (M - Final Urine - Catheterized Urine Presumptive negative for streptococcus pneumoniae antigen, suggesting no current or recent infection. Infection due to Streptococcus pneumoniae cannot be ruled out since the antigen present in the sample may be below the detection limit of the test. Imaging: Foot X-Ray 08/06/18 00:00 CONCLUSION: Destructive changes at the fifth metatarsal head and possibly the fourth metatarsal head. Chest X-Ray 08/06/18 02:23 CONCLUSION: Bilateral lung consolidation. Differential diagnosis includes pulmonary edema and infection with probable small bilateral pleural effusions. Venous Doppler Study 08/07/18 00:00 CONCLUSION: No evidence of right upper extremity DVT. Extremity Arterial Study 08/08/18 00:00 CONCLUSION: 1. Moderate reduction of the toe brachial indices bilaterally suggesting microangiopathic disease. 2. ABIs within the normal range bilaterally. Foot MRI 08/08/18 00:00 CONCLUSION: 1. Findings consistent with marrow edema and osteomyelitis involving the fourth and fifth metatarsals. The base of the fifth is spared. Proximal one third of the fourth is spared. Chest X-Ray 08/09/18 00:00 CONCLUSION: 1. Worsening diffuse severe bilateral airspace consolidation consistent with ARDS versus severe pulmonary edema. Venous Doppler Study 08/11/18 00:00 CONCLUSION: 1. Negative for deep venous thrombosis Chest X-Ray 08/11/18 06:00 CONCLUSION: Diffuse bilateral edema versus pneumonia. There has been no significant change when compared to the prior exam. Chest X-Ray 08/11/18 11:42 CONCLUSION: Complete opacification of the thorax, significantly limits the study. Chest CT 08/11/18 13:44 CONCLUSION: 1. Diffuse bilateral pulmonary infiltrates and effusions. 2. Atherosclerosis. Chest X-Ray 08/11/18 16:50 CONCLUSION: Left lung is much better aerated. Right side chest tube in good position. Diffuse perihilar vascular congestion with enlarged heart Chest X-Ray 08/12/18 00:00 CONCLUSION: 1. Stable tubes and lines, as above. 2. Progressive airspace consolidation in the right lung, primarily in the right lower lung zone. 3. Improved hazy opacity in the left hemithorax which may reflect improved layering pleural effusion. Venous Doppler Study 08/12/18 00:00 CONCLUSION: 1. The study is negative for lower extremity deep venous thrombosis. Chest X-Ray 08/12/18 06:00 CONCLUSION: Diffuse edema versus pneumonia. There has been no significant change when compared to the prior exam. Chest X-Ray 08/13/18 00:00 CONCLUSION: Persistent bibasilar infiltrates. Procedures: * 08/11/18 - Intubated. Assessment and Plan - Disease Oriented Problem List (1) Diastolic heart failure (2) PNA (pneumonia) (3) Pleural effusion (4) Osteomyelitis of ankle and foot (5) Kidney disease (6) Morbid obesity (7) Diabetes (8) Hypertension (9) JOSE (acute kidney injury) (10) SHEELA (obstructive sleep apnea) (11) COPD (chronic obstructive pulmonary disease) Pertinent Non-Medical Issues: Psychosocial: . Supported by his 2 sisters, Lindsey and Frances who live in [place]. Spiritual: None. Legal:Patient is not capacitated to make his own health care decisions, uncertain if he will regain capacity. Called [facility] to see if they have any written advance directives, copy of written designation of health care surrogate received dated 06/15/18 naming his sister, Lindsey Chand as health care surrogate # [phone]. Ethical issues impacting care: No known concerns at this time. Important Contacts: * Lindsey Chand, sister/ [facility]: [phone] * Ria Alegria, sister: [phone] Prognosis: Overall prognosis appears poor for meaningful recovery. Code Status: Alternative Code (Intubation Only.) Plan: * Patient is not capacitated to make his own health care decisions, uncertain if he will regain capacity. Called [facility] to see if they have any written advance directives, copy of written designation of health care surrogate received dated 06/15/18 naming his sister, Lindsey Chand as health care surrogate # [phone]. * INTUBATION ONLY * Spoke with sisters, Frances and Lindsey via telephone to provide medical update, as requested. Goals remains aggressive short of Intubation Only and NO amputation. Other decisions will need to be clarified with [facility] Lindsey as needed. Both sisters understand patient may not survive. If his condition worsens I suspect Lindsey will readily transition to comfort measures only. SisterFrances is considering coming to [place] from [place] to see patient, since he was arousable today. * Discussed with Dr. Wu, Dr. Montez. * Family does NOT want any information shared with friends of patient, including but not limited to Elsie. * SYMPTOMS: Pain: due to chronic debility, osteomyelitis, wounds, pneumonia, tubes, restraints, etc. No obvious signs of pain today, on fentanyl. Will continue to monitor. Dyspnea: post 2 [facility] tubes[facility], not breathing over. No new medication recommendations at this time. * Palliative care will continue to follow to assist with symptom management and clarification of goals of medical treatment as needed. Attestation Attestation: To help prompt me to consider important information that might be impacting today's encounter and assessment, information from prior notes written by myself or my colleagues may have been "brought forward" into today's note. My signature on this note, however, is an attestation that I personally performed the exam, history, and/or decision-making noted today, and, unless otherwise indicated, the interactions with patient, family, and staff as well as the review of records all occurred today. I also attest that the listed assessment and stated plan reflect my best clinical judgment today based on the combination of historical information, prior notes, and today's exam/ interactions. 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 .
--- NOTE | 2018-08-13 12:48 | P.PNCA ---
Subjective Interval history: Intubated Diuresing well Telemetry with no P waves noted. Somewhat regular, possible accelerated junctional vs AFib with CVR. Medications and Allergies Active Medications: Active Medications Acetaminophen (Tylenol) 650 mg PO Q6H PRN PRN Reason: Temp > 100.4 Al Hydroxide/Mg Hydroxide (Milk Of [place] Liq) 30 ml PO Q12H PRN PRN Reason: Mild Constipation Albuterol (Albuterol Neb (Prn)) 2.5 mg NEB Q2HR NEB PRN PRN Reason: DYSPNEA Albuterol (Duoneb Neb (Filomena)) 1 ampul NEB Q6HR NEB [facility] Last Admin: 08/13/18 07:45 Dose: 1 ampul Amlodipine Besylate (Norvasc) 5 mg PO DAILY [facility] Last Admin: 08/13/18 10:19 Dose: Not Given Artificial Tears (Refresh Tears 0.5% Opth Drops) 1 drop EACH EYE BID [facility] Last Admin: 08/13/18 08:55 Dose: 1 drop Aspirin (Aspirin) 325 mg PO DAILY [facility] Last Admin: 08/13/18 08:53 Dose: 325 mg Atorvastatin Calcium (Lipitor) 20 mg PO HS [facility] Last Admin: 08/12/18 20:14 Dose: 20 mg Azithromycin (Zithromax) 500 mg PO DAILY [facility] Last Admin: 08/13/18 08:53 Dose: 500 mg Bisacodyl (Dulcolax Supp) 10 mg RECTAL DAILY PRN PRN Reason: SEVERE CONSITIPATION Carvedilol (Coreg) 3.125 mg PO BID [facility] Last Admin: 08/13/18 08:53 Dose: 3.125 mg Chlorhexidine Gluconate (Chlorhexidine 2% Cloth) 3 pack TOPICAL DAILY@0400 [facility] Stop: 08/15/18 03:59 Last Admin: 08/13/18 03:45 Dose: 3 pack Chlorhexidine Gluconate (Chlorhexidine 2% Cloth) 1 pack TOPICAL PRN PRN PRN Reason: FOR HYGIENIC CARE Chlorhexidine Gluconate (Peridex 0.12% Oral Kit) 15 ml OROPHARYNG BID@0800, 2000 [facility] Last Admin: 08/13/18 08:54 Dose: 15 ml Dextrose (D50w Vial) 50 ml IV.PUSH UNSCH PRN PRN Reason: PER HYPOGLYCEMIA PROTOCOL Duloxetine HCl (Cymbalta) 30 mg PO DAILY [facility] Last Admin: 08/13/18 08:53 Dose: 30 mg Finasteride (Proscar) 5 mg PO DAILY@1800 [facility] Last Admin: 08/12/18 18:04 Dose: 5 mg Gabapentin (Neurontin) 300 mg PO Q6HR [facility] Last Admin: 08/13/18 12:08 Dose: 300 mg Glucagon (Glucagon Inj) 1 mg OTHER PRN PRN PRN Reason: for Hypoglycemia Protocol Guaifenesin (Mucinex Er) 600 mg PO BID [facility] Last Admin: 08/13/18 08:56 Dose: Not Given Linezolid (Zyvox 600 Mg Premix) 300 mls @ 300 mls/hr IV.SIG Q12H [facility] Last Infusion: 08/13/18 04:13 Dose: Infused Cefepime HCl 1,000 mg/ Sodium (Chloride) 100 mls @ 200 mls/hr IV.SIG Q8H [facility] Last Infusion: 08/13/18 06:58 Dose: Infused Fentanyl (Fentanyl 10 Mcg/Ml Premix Drip) 2,500 mcg in 250 mls @ 5 mls/hr IV.SIG TITRATE PRN; Protocol PRN Reason: Per Protocol Last Admin: 08/12/18 20:48 Dose: 150 mcg/hr, 15 mls/hr Midazolam HCl (Versed Inj) 50 mg in 50 mls @ 2 mls/hr IV.CONT TITRATE PRN; Protocol PRN Reason: Per Protocol Norepinephrine Bitartrate 16 (mg/ Sodium Chloride) 250 mls @ 1.87 mls/hr IV.CONT TITRATE PRN; Protocol PRN Reason: See Protocol Bumetanide (Bumex Inj) 25 mg in 100 mls @ 2 mls/hr IV.CONT .Q24H [facility] Last Admin: 08/12/18 18:08 Dose: 0.5 mg/hr, 2 mls/hr Albumin Human (Flexbumin 25% Inj) 50 mls @ 12.5 mls/hr IV.SIG Q8H [facility] Stop: 08/14/18 09:59 Last Infusion: 08/13/18 11:39 Dose: Infused Heparin Sodium/Dextrose (Heparin/D5w 25,000 U/250 Ml) 25,000 unit in 250 mls @ 0 mls/hr IV.CONT TITRATE PRN; Protocol PRN Reason: Per Protocol Last Titration: 08/13/18 11:28 Dose: 1,800 units/hr, 18 mls/hr Insulin Aspart (Novolog Insulin Correctional Sugar Inj) 0 unit SQ Q6HR [facility]; Protocol Last Admin: 08/13/18 12:08 Dose: 4 unit Insulin Detemir (Levemir Inj) 5 unit SQ BID [facility] Last Admin: 08/13/18 10:18 Dose: 5 unit Lactulose (Lactulose Liq) 30 ml PO DAILY PRN PRN Reason: SEVERE CONSITIPATION Lansoprazole (Prevacid Solutab) 30 mg NG/OG DAILY [facility] Last Admin: 08/13/18 08:53 Dose: 30 mg Metolazone (Zaroxolyn) 5 mg PO Q12H [facility] Last Admin: 08/13/18 08:53 Dose: 5 mg Miscellaneous Medication () 1 each OROPHARYNG 0000,0400,1200,1600 [facility] Last Admin: 08/13/18 12:08 Dose: 1 each Ondansetron HCl (Zofran Inj) 4 mg IV.PUSH Q6H PRN PRN Reason: NAUSEA OR VOMITING Polyethylene Glycol (Miralax) 17 gm PO BID [facility] Last Admin: 08/13/18 08:53 Dose: 17 gm Potassium Chloride (K-Dur) 20 meq PO BID [facility] Last Admin: 08/13/18 10:19 Dose: 20 meq Senna/Docusate Sodium (Isabella-Colace) 1 tab PO BID [facility] Last Admin: 08/13/18 08:53 Dose: 1 tab Sennosides (Senokot) 17.2 mg PO Q12H PRN PRN Reason: Moderate Constipation Tamsulosin HCl (Flomax) 0.4 mg PO BID [facility] Last Admin: 08/13/18 08:54 Dose: 0.4 mg Terbutaline Sulfate (Brethine Inj) 1 mg SQ UNSCH PRN PRN Reason: For Extravasation Allergies Allergy/AdvReac Type Severity Reaction Status Date / Time No Known Allergies Allergy Verified 08/06/18 01:24 Home Medications Medication Instructions Recorded Confirmed Type aspirin 325 mg PO DAILY 06/01/18 06/01/18 History atorvastatin [Lipitor] 20 mg PO HS 06/01/18 08/06/18 History duloxetine [Cymbalta] 30 mg PO DAILY 06/01/18 06/01/18 History dutasteride [Avodart] 0.5 mg PO QPM 06/01/18 06/01/18 History gabapentin 300 mg PO Q6HR 06/01/18 06/01/18 History pantoprazole [Protonix] 40 mg PO DAILY 06/01/18 06/01/18 History tamsulosin [Flomax] 0.4 mg PO BID 06/01/18 08/06/18 History Physical Exam Vital signs: Vital Signs 08/12/18 15:19 08/12/18 16:00 08/12/18 19:36 Temperature 98.7 F Pulse Rate 72 73 Respiratory Rate 18 18 18 Blood Pressure 100/55 L Pulse Oximetry 96 96 96 08/12/18 19:38 08/12/18 20:00 08/13/18 00:00 Temperature 98.6 F 98 F Pulse Rate 76 63 65 Respiratory Rate 20 18 14 Blood Pressure 112/56 L 103/58 L Pulse Oximetry 96 96 08/13/18 00:25 08/13/18 02:51 08/13/18 04:00 Temperature 98.3 F Pulse Rate 62 66 Respiratory Rate 18 18 20 Blood Pressure 117/77 Pulse Oximetry 96 97 08/13/18 04:15 08/13/18 07:42 08/13/18 07:44 Temperature Pulse Rate 73 Respiratory Rate 18 18 18 Blood Pressure Pulse Oximetry 96 97 08/13/18 08:00 08/13/18 11:29 Temperature 98.2 F Pulse Rate 75 Respiratory Rate 17 18 Blood Pressure 118/58 L Pulse Oximetry 97 Intake & Output 08/12/18 08/13/18 08/13/18 18:59 06:59 18:59 Intake Total 1083 / 1083 1802 / 1802 50 / 50 Output Total 2900 / 2900 1570 / 1570 Balance -1817 / -1817 232 / 232 50 / 50 Weight 154.8 kg Intake: IV 725 / 725 1100 / 1100 50 / 50 Bumex Inj 25 mg In 100 ml @ 0.5 100 / 100 MG/HR 2 mls/hr IV.CONT .Q24H [facility] Rx#:[id number] Heparin/D5W 25,000 U/250 mL 25, 250 / 250 000 unit In 250 ml @ Per Protocol IV.CONT TITRATE PRN Rx #:[id number] Flexbumin 25% Inj 50 ML @ 12.5 50 / 50 100 / 100 50 / 50 mls/hr IV.SIG Q8H [facility] Rx#: [id number] Maxipime Inj 1,000 MG In NS Inj 200 / 200 200 / 200 100 ML @ 200 mls/hr IV.SIG Q8H [facility] Rx#:[id number] Zyvox 600 mg Premix 300 ML @ 300 / 300 300 / 300 300 mls/hr IV.SIG Q12H [facility] Rx#: [id number] Levophed-Dextrose 4 mg/250 ml 75 / 75 Drip 4 mg In 250 ml @ 0 mls/hr IV.SIG .STK-MED ONE Rx#: [id number] fentaNYL 10 mcg/mL Premix Drip 250 / 250 2,500 mcg In 250 ml @ 50 MCG/HR 5 mls/hr IV.SIG TITRATE PRN Rx #:[id number] Tube Feeding 238 / 238 302 / 302 Tube Irrigant 120 / 120 Water Bolus Amount 400 / 400 Output: Urine Amount (Catheter) 1750 / 1750 1500 / 1500 Indwelling Urethral Catheter 1750 / 1750 1500 / 1500 Chest Tube Drainage 1150 / 1150 70 / 70 Left Mid-Axillary Chest 1090 / 1090 70 / 70 Right Mid-Axillary Chest 60 / 60 0 / 0 Other: # Bowel Movements 0 0 Narrative: GENERAL: Intubated and sedated SKIN: Warm and dry. HEAD: Atraumatic. Normocephalic. EYES: Pupils equal and round. No scleral icterus. No injection or drainage. ENT: No nasal bleeding or discharge. Mucous membranes pink and moist. NECK: Trachea midline. No JVD. CARDIOVASCULAR: Regular rate and rhythm. RESPIRATORY: No accessory muscle use. Decreased breath sounds bilaterally GASTROINTESTINAL: Abdomen soft, non-tender, nondistended. Hepatic and splenic margins not palpable. MUSCULOSKELETAL: Extremity with bandage, known chronic wound NEUROLOGICAL: Intubated and sedated - Urinary Catheter Management Indwelling Urethral Catheter Cath placed during this visit: yes Reason for continuing: Hourly intake/output Insertion date: 08/11/18 Insertion time: 12:00 Results 08/13/18 06:42 08/13/18 06:42 Cardiac Enzymes 08/11/18 08/12/18 08/13/18 Range/Units 19:53 02:41 06:42 AST 12 L 14 L (15-37) U/L Lactate Dehydrogenase 147 (87-241) U/L Troponin I 0.02 (0.02-0.05) ng/mL B-Natriuretic Peptide (0-100) pg/mL 08/13/18 Range/Units 06:42 AST (15-37) U/L Lactate Dehydrogenase (87-241) U/L Troponin I (0.02-0.05) ng/mL B-Natriuretic Peptide 86 (0-100) pg/mL Coagulation 08/12/18 08/13/18 08/13/18 Range/Units 17:10 02:02 06:42 APTT 27.1 49.9 H D (24.3-30.1) sec B-Natriuretic Peptide 86 (0-100) pg/mL 08/13/18 Range/Units 08:19 APTT 53.3 H (24.3-30.1) sec B-Natriuretic Peptide (0-100) pg/mL CBC 08/12/18 08/13/18 Range/Units 02:41 06:42 WBC 7.7 7.4 (4.0-11.0) th/mm3 RBC 2.95 L 2.78 L (4.50-5.90) mil/mm3 Hgb 8.3 L 7.9 L (13.0-17.0) gm/dL Hct 25.7 L 24.5 L (39.0-51.0) % Plt Count 145 L 126 L (150-450) th/mm3 Neut # (Auto) 5.0 4.9 (1.8-7.7) th/mm3 Lymph # (Auto) 1.6 1.5 (1.0-4.8) th/mm3 [place] # (Auto) 0.6 0.7 (0.0-0.9) th/mm3 Eos # (Auto) 0.4 0.2 (0.0-0.4) th/mm3 Baso # (Auto) 0.1 0.1 (0.0-0.2) th/mm3 Comprehensive Metabolic Panel 08/11/18 08/12/18 08/13/18 Range/Units 19:53 02:41 06:42 Sodium 142 142 142 (136-145) meq/L Potassium 4.4 4.4 4.3 (3.5-5.1) meq/L Chloride 109 H 110 H 107 (98-107) meq/L Carbon Dioxide 23.4 23.5 26.5 (21.0-32.0) meq/L BUN 69 H 68 H 78 H (7-18) mg/dL Creatinine 1.79 H 1.90 H 2.23 H (0.60-1.30) mg/dL Calcium 8.4 L 8.3 L 8.6 (8.5-10.1) mg/dL AST 12 L 14 L (15-37) U/L ALT 13 15 (12-78) U/L Alkaline Phosphatase 68 69 (45-117) U/L Total Protein 7.1 7.2 (6.4-8.2) g/dL Albumin 1.8 L 2.3 L (3.4-5.0) g/dL Intake and Output 08/12/18 08/13/18 08/13/18 22:59 06:59 14:59 Intake Total 1283 / 1283 1502 / 1502 50 / 50 Output Total 2900 / 2900 1570 / 1570 Balance -1617 / -1617 -68 / -68 50 / 50 Intake: IV 925 / 925 800 / 800 50 / 50 Bumex Inj 25 mg In 100 ml @ 0.5 100 / 100 MG/HR 2 mls/hr IV.CONT .Q24H [facility] Rx#:[id number] Heparin/D5W 25,000 U/250 mL 25, 250 / 250 000 unit In 250 ml @ Per Protocol IV.CONT TITRATE PRN Rx #:[id number] Flexbumin 25% Inj 50 ML @ 12.5 100 / 100 50 / 50 50 / 50 mls/hr IV.SIG Q8H [facility] Rx#: [id number] Maxipime Inj 1,000 MG In NS Inj 100 / 100 200 / 200 100 ML @ 200 mls/hr IV.SIG Q8H [facility] Rx#:[id number] Zyvox 600 mg Premix 300 ML @ 300 / 300 300 / 300 300 mls/hr IV.SIG Q12H [facility] Rx#: [id number] Levophed-Dextrose 4 mg/250 ml 75 / 75 Drip 4 mg In 250 ml @ 0 mls/hr IV.SIG .STK-MED ONE Rx#: [id number] fentaNYL 10 mcg/mL Premix Drip 250 / 250 2,500 mcg In 250 ml @ 50 MCG/HR 5 mls/hr IV.SIG TITRATE PRN Rx #:[id number] Tube Feeding 238 / 238 302 / 302 Tube Irrigant 120 / 120 Water Bolus Amount 400 / 400 Output: Urine Amount (Catheter) 1750 / 1750 1500 / 1500 Indwelling Urethral Catheter 1750 / 1750 1500 / 1500 Chest Tube Drainage 1150 / 1150 70 / 70 Left Mid-Axillary Chest 1090 / 1090 70 / 70 Right Mid-Axillary Chest 60 / 60 0 / 0 Other: # Bowel Movements 0 0 Weight 154.8 kg - Imaging and Cardiology Imaging: Impressions Chest CT 08/11/18 13:44 CONCLUSION: 1. Diffuse bilateral pulmonary infiltrates and effusions. 2. Atherosclerosis. Chest X-Ray 08/11/18 16:50 CONCLUSION: Left lung is much better aerated. Right side chest tube in good position. Diffuse perihilar vascular congestion with enlarged heart Chest X-Ray 08/12/18 00:00 CONCLUSION: 1. Stable tubes and lines, as above. 2. Progressive airspace consolidation in the right lung, primarily in the right lower lung zone. 3. Improved hazy opacity in the left hemithorax which may reflect improved layering pleural effusion. Venous Doppler Study 08/12/18 00:00 CONCLUSION: 1. The study is negative for lower extremity deep venous thrombosis. Chest X-Ray 08/12/18 06:00 CONCLUSION: Diffuse edema versus pneumonia. There has been no significant change when compared to the prior exam. Chest X-Ray 08/13/18 00:00 CONCLUSION: Persistent bibasilar infiltrates. Assessment and Plan - Assessment (1) Respiratory failure Code(s): J96.90 - Respiratory failure, unspecified, unspecified whether with hypoxia or hypercapnia Status: Acute (2) PNA (pneumonia) Code(s): J18.9 - Pneumonia, unspecified organism Status: Acute (3) Pleural effusion Code(s): J90 - Pleural effusion, not elsewhere classified Status: Acute (4) Osteomyelitis of ankle and foot Code(s): M86.9 - Osteomyelitis, unspecified Status: Acute (5) Diastolic heart failure Code(s): I50.30 - Unspecified diastolic (congestive) heart failure Status: Acute (6) Dyspnea Code(s): R06.00 - Dyspnea, unspecified Status: Acute - Plan 1) Bilateral pleural effusions Bumex drip Chest tubes Diuresing well 2) Diastolic dysfunction by CHIKA 3) Left atrial appendage thrombus Started on heparin drip 4) Questionable AFib Appears more likely accelerated junctional as regular in nature, although today somewhat more irregular Will be on anti-coagulation due to thrombus No further work up 5) Agree with palliative care consultation Appears to be progressing slowly 6) If concerns over the weekend, please call the service for covering physician
--- NOTE | 2018-08-13 13:32 | P.PNID ---
Subjective Remarks: Mr. Meléndez is a 73-year-old male with past medical history significant for morbid obesity, peripheral neuropathy, diabetes mellitus, hyperlipidemia and hypertension. Patient is a long-term resident of [facility] in reportedly is not very active and is mostly bedbound. Patient was brought into the emergency room by EMS from [facility] for shortness of breath and hypoxia. Per report patient had an episode of shortness of breath with O2 sats of 70% on room air however patient refused transport to the ER. Thereafter patient had another episode of shortness of breath and hypoxia. By this time patient had been treated with Zyvox for lower extremity wound for positive MRSA as well as recently started on Levaquin for pneumonia at the assisted facility. Patient has a PICC line in place and has been treated with IV antibiotics. Nurse taking care of the patient informs me that currently there is no blood draws from the PICC line but medications can be infused although with some difficulty. Due to concern for thrombosis at the site of PICC line I have ordered a Doppler which is pending at the present time. On arrival his blood pressure was 145 x 63, heart rate of 81, O2 sats 97% on 10 L simple mask. His blood gas was unremarkable. His creatinine was 1.93 and previously in May 2018 was 1.83. His chest x-ray showed bilateral lung consolidation possible element of pulmonary edema as well as small bilateral pleural effusion. He received 1 dose of Lasix in the ER. Infectious diseases consulted for evaluation and pneumonia as well as osteomyelitis. Overnight events reviewed. Remains intubated in the ICU. Spoke to few days back and agreed on palliative care consult. dw then. Appreciate Palliative care input. No fevers, hypothermia. No rash No diarrhea. Antibiotics: Cefepime IV Azithro Zyvox IV Lines: Lines ok Past Medical History: reviewed Allergies/Adverse Reactions: Allergies No Known Allergies Allergy (Verified 08/06/18 01:24) Objective Vital Signs 08/12/18 15:19 08/12/18 16:00 08/12/18 19:36 Temperature 98.7 F Pulse Rate 72 73 Respiratory Rate 18 18 18 Blood Pressure 100/55 L Pulse Oximetry 96 96 96 08/12/18 19:38 08/12/18 20:00 08/13/18 00:00 Temperature 98.6 F 98 F Pulse Rate 76 63 65 Respiratory Rate 20 18 14 Blood Pressure 112/56 L 103/58 L Pulse Oximetry 96 96 08/13/18 00:25 08/13/18 02:51 08/13/18 04:00 Temperature 98.3 F Pulse Rate 62 66 Respiratory Rate 18 18 20 Blood Pressure 117/77 Pulse Oximetry 96 97 08/13/18 04:15 08/13/18 07:42 08/13/18 07:44 Temperature Pulse Rate 73 Respiratory Rate 18 18 18 Blood Pressure Pulse Oximetry 96 97 08/13/18 08:00 08/13/18 11:29 Temperature 98.2 F Pulse Rate 75 Respiratory Rate 17 18 Blood Pressure 118/58 L Pulse Oximetry 97 Intake & Output 08/12/18 08/13/18 08/13/18 18:59 06:59 18:59 Intake Total 1083 / 1083 1802 / 1802 50 / 50 Output Total 2900 / 2900 1570 / 1570 Balance -1817 / -1817 232 / 232 50 / 50 Weight 154.8 kg Intake: IV 725 / 725 1100 / 1100 50 / 50 Bumex Inj 25 mg In 100 ml @ 0.5 100 / 100 MG/HR 2 mls/hr IV.CONT .Q24H [facility] Rx#:[id number] Heparin/D5W 25,000 U/250 mL 25, 250 / 250 000 unit In 250 ml @ Per Protocol IV.CONT TITRATE PRN Rx #:[id number] Flexbumin 25% Inj 50 ML @ 12.5 50 / 50 100 / 100 50 / 50 mls/hr IV.SIG Q8H [facility] Rx#: [id number] Maxipime Inj 1,000 MG In NS Inj 200 / 200 200 / 200 100 ML @ 200 mls/hr IV.SIG Q8H [facility] Rx#:[id number] Zyvox 600 mg Premix 300 ML @ 300 / 300 300 / 300 300 mls/hr IV.SIG Q12H [facility] Rx#: [id number] Levophed-Dextrose 4 mg/250 ml 75 / 75 Drip 4 mg In 250 ml @ 0 mls/hr IV.SIG .STK-MED ONE Rx#: [id number] fentaNYL 10 mcg/mL Premix Drip 250 / 250 2,500 mcg In 250 ml @ 50 MCG/HR 5 mls/hr IV.SIG TITRATE PRN Rx #:[id number] Tube Feeding 238 / 238 302 / 302 Tube Irrigant 120 / 120 Water Bolus Amount 400 / 400 Output: Urine Amount (Catheter) 1750 / 1750 1500 / 1500 Indwelling Urethral Catheter 1750 / 1750 1500 / 1500 Chest Tube Drainage 1150 / 1150 70 / 70 Left Mid-Axillary Chest 1090 / 1090 70 / 70 Right Mid-Axillary Chest 60 / 60 0 / 0 Other: # Bowel Movements 0 0 08/12/18 08:45 Fluid - Pleural fluid Gram Stain - Final 08/12/18 08:45 Fluid - Pleural fluid Body Fluid Culture - Preliminary No growth in 24 hours 08/11/18 17:02 Fluid - Pleural fluid Gram Stain - Final 08/11/18 17:02 Fluid - Pleural fluid Body Fluid Culture - Preliminary No growth in 48 hours 08/11/18 17:02 Abscess - Lung Fungal Smear - Final No fungal elements seen 08/11/18 17:02 Abscess - Lung Fungal Culture - Pending 08/07/18 22:45 Blood - Line Aerobic Blood Culture - Final No growth in 5 days 08/07/18 22:45 Blood - Line Anaerobic Blood Culture - Final No growth in 5 days 08/07/18 16:40 Blood - Peripheral Aerobic Blood Culture - Final No growth in 5 days 08/07/18 16:40 Blood - Peripheral Anaerobic Blood Culture - Final No growth in 5 days 08/07/18 16:45 Blood - Peripheral Aerobic Blood Culture - Final No growth in 5 days 08/07/18 16:45 Blood - Peripheral Anaerobic Blood Culture - Final No growth in 5 days 08/11/18 17:02 Abscess - Lung Acid Fast Bacilli Smear - Pending 08/11/18 17:02 Abscess - Lung Mycobacterial Culture - Pending 08/11/18 13:45 Urine - Catheterized Urine Streptococcus pneumoniae Antigen ( M - Final Presumptive negative for streptococcus pneumoniae antigen, suggesting no current or recent infection. Infection due to Streptococcus pneumoniae cannot be ruled out since the antigen present in the sample may be below the detection limit of the test. Lab - Hematology Results 08/12/18 08/13/18 02:41 06:42 WBC 7.7 7.4 RBC 2.95 L 2.78 L Hgb 8.3 L 7.9 L Hct 25.7 L 24.5 L MCV 87.1 88.0 MCH 28.3 28.2 MCHC 32.5 32.1 RDW 16.5 17.0 Plt Count 145 L 126 L MPV 8.6 8.8 Neut % (Auto) 64.7 66.4 Lymph % (Auto) 20.9 20.9 [place] % (Auto) 8.4 H 9.4 H Eos % (Auto) 5.0 H 2.5 Baso % (Auto) 1.0 0.8 Neut # (Auto) 5.0 4.9 Lymph # (Auto) 1.6 1.5 [place] # (Auto) 0.6 0.7 Eos # (Auto) 0.4 0.2 Baso # (Auto) 0.1 0.1 WBC Differential . . Differential Comment Auto diff final Auto diff final Lab - Chemistry Results 08/11/18 08/11/18 08/11/18 18:17 19:53 21:21 Sodium 142 Potassium 4.4 Chloride 109 H Carbon Dioxide 23.4 Anion Gap 10 BUN 69 H Creatinine 1.79 H Estimated GFR 37 L POC Glucose 140 H 134 H Random Glucose 129 H Calcium 8.4 L Phosphorus Magnesium Total Bilirubin AST ALT Alkaline Phosphatase Lactate Dehydrogenase 147 Total Creatine Kinase Troponin I B-Natriuretic Peptide Total Protein Albumin Prealbumin 08/11/18 08/12/18 08/12/18 23:44 02:41 05:56 Sodium 142 Potassium 4.4 Chloride 110 H Carbon Dioxide 23.5 Anion Gap 9 BUN 68 H Creatinine 1.90 H Estimated GFR 35 L POC Glucose 118 H 159 H Random Glucose 114 H Calcium 8.3 L Phosphorus 2.7 D Magnesium 2.4 Total Bilirubin 0.5 AST 12 L ALT 13 Alkaline Phosphatase 68 Lactate Dehydrogenase Total Creatine Kinase 41 Troponin I 0.02 B-Natriuretic Peptide Total Protein 7.1 Albumin 1.8 L Prealbumin 08/12/18 08/12/18 08/12/18 09:47 11:27 18:04 Sodium Potassium Chloride Carbon Dioxide Anion Gap BUN Creatinine Estimated GFR POC Glucose 202 H 174 H 199 H Random Glucose Calcium Phosphorus Magnesium Total Bilirubin AST ALT Alkaline Phosphatase Lactate Dehydrogenase Total Creatine Kinase Troponin I B-Natriuretic Peptide Total Protein Albumin Prealbumin 08/12/18 08/13/18 08/13/18 21:34 05:08 06:42 Sodium 142 Potassium 4.3 Chloride 107 Carbon Dioxide 26.5 Anion Gap 9 BUN 78 H Creatinine 2.23 H Estimated GFR 29 L POC Glucose 179 H 189 H Random Glucose 196 H Calcium 8.6 Phosphorus 3.8 D Magnesium 2.5 Total Bilirubin 0.5 AST 14 L ALT 15 Alkaline Phosphatase 69 Lactate Dehydrogenase Total Creatine Kinase Troponin I B-Natriuretic Peptide Total Protein 7.2 Albumin 2.3 L Prealbumin 12 L 08/13/18 08/13/18 06:42 12:07 Sodium Potassium Chloride Carbon Dioxide Anion Gap BUN Creatinine Estimated GFR POC Glucose 221 H Random Glucose Calcium Phosphorus Magnesium Total Bilirubin AST ALT Alkaline Phosphatase Lactate Dehydrogenase Total Creatine Kinase Troponin I B-Natriuretic Peptide 86 Total Protein Albumin Prealbumin Imaging: ITS Impressions Foot X-Ray 08/06/18 00:00 CONCLUSION: Destructive changes at the fifth metatarsal head and possibly the fourth metatarsal head. Extremity Arterial Study 08/08/18 00:00 CONCLUSION: 1. Moderate reduction of the toe brachial indices bilaterally suggesting microangiopathic disease. 2. ABIs within the normal range bilaterally. Foot MRI 08/08/18 00:00 CONCLUSION: 1. Findings consistent with marrow edema and osteomyelitis involving the fourth and fifth metatarsals. The base of the fifth is spared. Proximal one third of the fourth is spared. Chest CT 08/11/18 13:44 CONCLUSION: 1. Diffuse bilateral pulmonary infiltrates and effusions. 2. Atherosclerosis. Venous Doppler Study 08/12/18 00:00 CONCLUSION: 1. The study is negative for lower extremity deep venous thrombosis. Chest X-Ray 08/13/18 00:00 CONCLUSION: Persistent bibasilar infiltrates. Physical Exam: GENERAL: Morbid Obesity, not in acute distress SKIN: Cool and dry, no generalized rash HEAD: Atraumatic. Normocephalic. No temporal or scalp tenderness. EYES: Pupils equal round and reactive. Scleral icterus. No injection or drainage. No petechia ENT: Nothing abnormal detected NECK: Trachea midline. Supple, nontender, no meningeal signs. CARDIOVASCULAR: HS audible. RESPIRATORY: Clear to auscultation bilaterally. GASTROINTESTINAL: Abdomen soft nontender. MUSCULOSKELETAL: Right LE with 2nd,3rd, 4th digit plantar aspect ulceration down to bone. Calcaneal area with unhealthy granulation tissue. NEUROLOGICAL: Alert oriented 3. Nonfocal. Psych cooperative IV line sites ok. Assessment and Plan - Plan Fluid overload. Less likely to be Health care associated pneumonia Osteomyelitis of right foot. PICC line in place r/o infection, thrombus. Morbid Obesity Sleep apnea based on clinical picture. Recs: Continue Cefepime increase dose to q8hrs Continue Zyvox IV DC Azithro oral. Follow cultures Follow clinical course. dw patient dw RN Would like to dw Podiatry about bone biopsy to help ascertain osteomyelitis diagnosis and organisms to be treated. Would like to dw palliative care goals of therapy. covering for me this weekend and available prn.
[2018-08-13] MEDS: Finasteride 5 MG Tablet PO SCH (17:07)
[2018-08-14] MEDS: Insulin NovoLOG Aspart Correctional Sugar Inj SQ SCH ×5 (00:36→23:35)
[2018-08-14] MEDS: Gabapentin 300 MG Capsule PO SCH ×5 (00:36→23:34)
[2018-08-14] MEDS ORDERED: Sodium Chloride 0.9% 2 ML Flush PRN IV.FLUSH (03:42)
[2018-08-14 06:08] LABS: ABG Base Excess 2.2 mmol/L (-2-2); ABG PCO2 42 mmHg (38-42); ABG PO2 127 mmHG (61-120)
[2018-08-14 06:42] LABS: Hematocrit 23.2 % (39.0-51.0); Hemoglobin 7.6 gm/dL (13.0-17.0); Mean Corpuscular Hemoglobin 28.6 pg (27.0-34.0); Mean Corpuscular Volume 86.8 fL (80.0-100.0); Mean Platelet Volume 8.9 fL (7.0-11.0); Platelet Count 122 th/mm3 (150-450); Red Blood Count 2.67 mil/mm3 (4.50-5.90); Red Cell Distribution Width 16.9 % (11.6-17.2); White Blood Count 6.9 th/mm3 (4.0-11.0)
[2018-08-14 07:10] LABS: Calcium 8.5 mg/dL (8.5-10.1); Magnesium 2.3 mg/dL (1.5-2.5); Phosphorus 3.3 mg/dL (2.5-4.9)
[2018-08-14] MEDS: Bumetanide Inj 25 MG/100 ML BAG IV.CONT SCH ×2 (08:20→18:34)
[2018-08-14] MEDS: Oral Hygiene Kit OROPHARYNG SCH ×5 (08:21→23:35)
[2018-08-14] MEDS: Carboxymethylcellulose 0.5% Opth Drops 15 ML Bottle EACH EYE SCH ×3 (08:21→20:34)
[2018-08-14] MEDS: Chlorhexidine Gluconate 2% 1 Pack (2 Cloths) TOPICAL SCH (08:23)
[2018-08-14] MEDS: Albumin Human 25% Inj 50 ML IV.SIG SCH (08:23)
[2018-08-14] MEDS: Chlorhexidine 0.12% Oral Kit 15 ML UDC OROPHARYNG SCH ×2 (09:15→20:34)
[2018-08-14] MEDS: Senna/Docusate Sodium 8.6/50 MG Tablet PO SCH ×2 (09:15→20:33)
[2018-08-14] MEDS: Aspirin 325 MG Tablet PO SCH (09:15)
[2018-08-14] MEDS: Polyethylene Glycol 3350 17 GM Packet PO SCH ×2 (09:15→20:34)
[2018-08-14] MEDS: Sodium Chloride 0.9% 2 ML Flush BID IV.FLUSH SCH ×2 (09:15→20:35)
[2018-08-14] MEDS: metOLazone 5 MG Tablet PO SCH ×2 (09:15→20:33)
[2018-08-14] MEDS: Insulin Detemir Inj 1,000 UNIT/10 ML Vial SQ SCH ×2 (09:15→20:35)
[2018-08-14] MEDS: guaiFENesin 600 MG ER Tablet PO SCH ×2 (09:15→20:33)
--- NOTE | 2018-08-14 09:31 | P.PNCC ---
Subjective Subjective Remarks/Hospital Course: 73-year-old male with past medical history significant for morbid obesity, peripheral neuropathy, diabetes mellitus, hyperlipidemia and hypertension. Patient is a long-term resident of [facility] in reportedly is not very active and is mostly bedbound. Patient was brought into the emergency room by EMS from [facility] for shortness of breath and hypoxia. Per report patient had an episode of shortness of breath with O2 sats of 70% on room air however patient refused transport to the ER. Thereafter patient had another episode of shortness of breath and hypoxia. By this time patient had been treated with Zyvox for lower extremity wound for positive MRSA as well as recently started on Levaquin for pneumonia at the [facility]. Patient has a PICC line in place and has been treated with IV antibiotics. On arrival his blood pressure was 145/63, heart rate of 81, O2 sats 97% on 10 L simple mask. His blood gas was unremarkable. His creatinine was 1.93 and previously in May 2018 was 1.83. His chest x-ray showed bilateral lung consolidation possible element of pulmonary edema as well as small bilateral pleural effusion. On 08/09 patient became more hypoxemic again requiring the placement on the BiPAP ventilator and transferred to ICU. Critical care services were consulted for management of respiratory failure. 08/10: Afebrile. Currently on 4 L nasal cannula saturations are 90%. Patient normally wears CPAP/BiPAP at home according to patient. Since seen by Dr. Slim Estevez previous hospitalization. SUBJECTIVE: 08/11: Reconsulted this patient remains on BiPAP. Still appears to be normal sinus rhythm. Echocardiogram revealed dilated LV/LVH, left atrial enlargement. Possible calcified lesion left coronary cusp. Currently on furosemide 40 mg IV twice daily. Likely source of ARDS will likely need intubation. 08/12: intubated yesterday. right chest tube placed with > 1L output. CXR improved on the right, but with persistence of left plural effusion. Also, transthoracic echocardiography has failed to have adequate visualization of cardiac windows to rule in or rule out cardiogenic source of hypoxia. 08/13: good diuresis again. left chest tube placed yesterday with 1100cc output yesterday. right chest tube with only 60mL output. CHIKA done yesterday with Grade III diastolic dysfunction as well as probable left atrial appendage thrombus: on anticoagulation. 08/14:, Orally intubated on mechanical ventilation. Objective Vital Signs / I&O: Vital Signs 08/13/18 10:00 08/13/18 11:00 08/13/18 11:29 Temperature Pulse Rate 73 67 Respiratory Rate 18 19 18 Blood Pressure 125/60 134/60 Pulse Oximetry 97 97 97 08/13/18 12:00 08/13/18 13:00 08/13/18 14:00 Temperature 98.5 F Pulse Rate 66 66 61 Respiratory Rate 19 18 18 Blood Pressure 118/58 L 123/57 L 122/58 L Pulse Oximetry 97 97 98 08/13/18 15:00 08/13/18 15:08 08/13/18 16:00 Temperature 98.3 F Pulse Rate 65 78 Respiratory Rate 17 18 19 Blood Pressure 121/56 L 116/55 L Pulse Oximetry 98 97 97 08/13/18 17:00 08/13/18 18:00 08/13/18 19:00 Temperature Pulse Rate 70 64 70 Respiratory Rate 19 18 18 Blood Pressure 115/57 L 127/62 123/59 L Pulse Oximetry 97 97 97 08/13/18 19:37 08/13/18 20:00 08/13/18 21:00 Temperature 99 F Pulse Rate 74 72 72 Respiratory Rate 18 18 19 Blood Pressure 116/58 L 106/55 L Pulse Oximetry 96 97 97 08/13/18 22:00 08/13/18 23:00 08/13/18 23:22 Temperature Pulse Rate 70 70 Respiratory Rate 18 19 18 Blood Pressure 112/53 L 115/59 L Pulse Oximetry 100 98 98 08/14/18 00:00 08/14/18 01:00 08/14/18 02:00 Temperature Pulse Rate 69 70 71 Respiratory Rate 19 19 18 Blood Pressure 114/56 L 113/57 L 112/58 L Pulse Oximetry 98 98 98 08/14/18 03:00 08/14/18 03:35 08/14/18 04:00 Temperature Pulse Rate 65 65 69 Respiratory Rate 19 18 18 Blood Pressure 113/56 L 118/56 L Pulse Oximetry 98 98 98 08/14/18 05:00 08/14/18 06:00 08/14/18 07:00 Temperature Pulse Rate 63 76 67 Respiratory Rate 18 20 18 Blood Pressure 115/56 L 105/77 101/52 L Pulse Oximetry 98 97 08/14/18 07:45 Temperature Pulse Rate Respiratory Rate 18 Blood Pressure Pulse Oximetry 96 Intake & Output 08/13/18 08/14/18 08/14/18 18:59 06:59 18:59 Intake Total 1223 / 1223 1692 / 1692 100 / 100 Output Total 1718 / 1718 1250 / 1250 Balance -495 / -495 442 / 442 100 / 100 Weight 153.7 kg Intake: IV 500 / 500 400 / 400 100 / 100 Bumex Inj 25 mg In 100 ml @ 0.5 100 / 100 MG/HR 2 mls/hr IV.CONT .Q24H SHAHEED Rx#:[id number] Heparin/D5W 25,000 U/250 mL 25, 250 / 250 000 unit In 250 ml @ Per Protocol IV.CONT TITRATE PRN Rx #:[id number] Flexbumin 25% Inj 50 ML @ 12.5 100 / 100 50 / 50 mls/hr IV.SIG Q8H SHAHEED Rx#: [id number] Maxipime Inj 1,000 MG In NS Inj 100 / 100 100 / 100 100 ML @ 200 mls/hr IV.SIG Q8H SHAHEED Rx#:[id number] Zyvox 600 mg Premix 300 ML @ 300 / 300 300 mls/hr IV.SIG Q12H SHAHEED Rx#: [id number] Tube Feeding 523 / 523 460 / 460 Water Bolus Amount 200 / 200 400 / 400 Other 432 / 432 Output: Pleural Fluid 0 / 0 Urine Amount (Catheter) 1700 / 1700 1250 / 1250 Indwelling Urethral Catheter 1700 / 1700 1250 / 1250 Chest Tube Drainage 0 / 0 Left Mid-Axillary Chest 0 / 0 Right Mid-Axillary Chest 8 / 8 0 / 0 Result Diagrams: 08/14/18 04:42 08/14/18 04:42 Objective Remarks: GENERAL: 73-year-old male, lying in bed, intubated, sedated SKIN: Cool and dry HEAD: Atraumatic. Normocephalic. EYES: Pupils equal and round. No scleral icterus. No injection or drainage. ENT: No nasal bleeding or discharge. Mucous membranes pink and moist. NECK: Trachea midline. No JVD. CARDIOVASCULAR: Regular rate and rhythm. RESPIRATORY: Diminished breath sounds. Few fine crackles appreciated anteriorly. No wheezing. right chest tube in place with serous output, to suction, no air leak. left chest tube in place to suction, serous output. GASTROINTESTINAL: Abdomen obese and protuberant. no guarding. MUSCULOSKELETAL: Extremities with right lower extremity with destruction of the second/third/fourth digits foot to bone. Currently covered with Juan bandage NEUROLOGICAL: RASS -2. awakens and follows commands. Assessment and Plan - Assessment and Plan Plan: Assessment: 73yM morbidly obese with refractory acute hypoxic and hypercarbic respiratory failure. Likely secondary to mixed systolic- and diastolic heart failure exacerbation. Continue forced diuresis. JOSE worsens and likely secondary to ATN and venous hypertension, as patient continues to have intravascular volume overload. Critically ill and off-pathway. If we remove active and aggressive support, he would . Neuro/Psych: Depression Peripheral neuropathy History of right frontal CVA Currently on fentanyl for sedation/analgesia while intubated Goal of RASS -2 Daily sedation vacation Continue acetaminophen 650 every 6 hours as needed fever Morphine sulfate 2 mg IV every 4 hours as needed pain 6 or 10 Gabapentin 300 mg p.o. every 6 hours peripheral neuropathy Duloxetine 30 mg daily for depression continue CV: Essential hypertension Hyperlipidemia History of non-STEMI EF 35-40% Grade III Diastolic Dysfunction Acute Congestive Heart Failure Exacerbation, mixed systolic- and diastolic- type. Left atrial appendage thrombus Continue amlodipine 5 mg daily, carvedilol 3.125 mg twice daily and hydralazine 50 mg 3 times daily for hypertension Continue atorvastatin 20 mg daily for hyperlipidemia Last echo 06/12 revealed LVEF - hard to assess but suspect mildly impaired. Current echocardiogram 06/11 revealed EF around 55%. Dilated LV/LVH and left atrial enlargement. PAP 26 MAC. Possible left coronary cusp calcification. CHIKA 08/13: EF 35-40%, Grade III Diastolic Dysfunction, probable left atrial thrombus. continue bumex infusion at 0.5mg/hr add metolazone 5mg po BID add one dose diamox 500mg iv x 1. goal at least net -2L/24h. Resp: Acute hypoxic and hypercarbic respiratory failure- persistent OHS Bilateral pleural effusions Pulmonary edema intubated 06/11. severe bilateral pulmonary infiltrates as well as bilateral large pleural effusions likely cause is multifactorial- large cardiogenic pulmonary edema component right chest tube placed 08/11: keep to suction today left chest tube placed 08/12: keep to suction today Ventilator bundle Titrate to keep saturations greater than 90% Albuterol/ipratropium aerosols every 6 hours with albuterol aerosols every 2 hours as needed dyspnea GI: Gastroesophageal reflux disease Hypoalbuminemia Severe acute protein calorie malnutrition Glucerna 1.5 goal 60 cc an hour Result for GI prophylaxis/home medication pantoprazole 40 mg daily Docusate sodium/senna 1 tablet twice daily for bowel regimen along with polythene glycol 17 g twice daily pre-albumin 12 on 08/13 : BPH Continue tamsulosin 0.4 mg daily for BPH Endo: Diabetes mellitus Currently on sliding scale insulin aspart medium protocol Insulin detemir 5 units twice daily TSH was 2.77 Renal: Acute kidney injury superimposed on CKD Chronic kidney disease stage II Renal ultrasound scan revealed increased echogenicity to the right kidney Creatinine continues to increase, but likely secondary to ATN and elevated renal vein pressure from volume overload continue forced diuresis keep maldonado for accurate q1h I/Os. Monitor urine output Accurate I's and O's Heme: Thrombocytopenia Normocytic anemia Left Atrial appendage thrombus Monitor CBCs daily. Follow trends. No indication for transfusion of blood products at this time. therapeutic anticoagulation with heparin drip for ENID thrombus. 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 Fifth metatarsal head with destruction. Will likely need amputation Followed by podiatry. Access -Right upper extremity PICC line. Prophylaxis -GI -lansoprazole -DVT -heparin drip Critical care time 35 minutes, exclusive of separately billable procedures.
[2018-08-14] MEDS: amLODIPine 5 MG Tablet PO SCH (11:39)
[2018-08-14] MEDS: Heparin Drip 25,000 UNIT/250 ML BAG IV.CONT PRN (12:49)
--- NOTE | 2018-08-14 14:56 | P.PN ---
Subjective Interval history: SEDATED ON VENT SUPPORT Physical Exam Vital signs: Vital Signs 08/13/18 15:00 08/13/18 15:08 08/13/18 16:00 Temperature 98.3 F Pulse Rate 65 78 Respiratory Rate 17 18 19 Blood Pressure 121/56 L 116/55 L Pulse Oximetry 98 97 97 08/13/18 17:00 08/13/18 18:00 08/13/18 19:00 Temperature Pulse Rate 70 64 70 Respiratory Rate 19 18 18 Blood Pressure 115/57 L 127/62 123/59 L Pulse Oximetry 97 97 97 08/13/18 19:37 08/13/18 20:00 08/13/18 21:00 Temperature 99 F Pulse Rate 74 72 72 Respiratory Rate 18 18 19 Blood Pressure 116/58 L 106/55 L Pulse Oximetry 96 97 97 08/13/18 22:00 08/13/18 23:00 08/13/18 23:22 Temperature Pulse Rate 70 70 Respiratory Rate 18 19 18 Blood Pressure 112/53 L 115/59 L Pulse Oximetry 100 98 98 08/14/18 00:00 08/14/18 01:00 08/14/18 02:00 Temperature Pulse Rate 69 70 71 Respiratory Rate 19 19 18 Blood Pressure 114/56 L 113/57 L 112/58 L Pulse Oximetry 98 98 98 08/14/18 03:00 08/14/18 03:35 08/14/18 04:00 Temperature Pulse Rate 65 65 69 Respiratory Rate 19 18 18 Blood Pressure 113/56 L 118/56 L Pulse Oximetry 98 98 98 08/14/18 05:00 08/14/18 06:00 08/14/18 07:00 Temperature Pulse Rate 63 76 67 Respiratory Rate 18 20 18 Blood Pressure 115/56 L 105/77 101/52 L Pulse Oximetry 98 97 08/14/18 07:45 08/14/18 11:19 Temperature Pulse Rate Respiratory Rate 18 18 Blood Pressure Pulse Oximetry 96 97 Intake & Output 08/13/18 08/14/18 08/14/18 18:59 06:59 18:59 Intake Total 1223 / 1223 1692 / 1692 350 / 350 Output Total 1718 / 1718 1250 / 1250 Balance -495 / -495 442 / 442 350 / 350 Weight 153.7 kg Intake: IV 500 / 500 400 / 400 350 / 350 Bumex Inj 25 mg In 100 ml @ 0.5 100 / 100 MG/HR 2 mls/hr IV.CONT .Q24H SHAHEED Rx#:[id number] Heparin/D5W 25,000 U/250 mL 25, 250 / 250 250 / 250 000 unit In 250 ml @ Per Protocol IV.CONT TITRATE PRN Rx #:[id number] Flexbumin 25% Inj 50 ML @ 12.5 100 / 100 50 / 50 mls/hr IV.SIG Q8H SHAHEED Rx#: [id number] Maxipime Inj 1,000 MG In NS Inj 100 / 100 100 / 100 100 ML @ 200 mls/hr IV.SIG Q8H SHAHEED Rx#:[id number] Zyvox 600 mg Premix 300 ML @ 300 / 300 300 mls/hr IV.SIG Q12H SHAHEED Rx#: [id number] Tube Feeding 523 / 523 460 / 460 Water Bolus Amount 200 / 200 400 / 400 Other 432 / 432 Output: Pleural Fluid 0 / 0 Urine Amount (Catheter) 1700 / 1700 1250 / 1250 Indwelling Urethral Catheter 1700 / 1700 1250 / 1250 Chest Tube Drainage / 18 0 / 0 Left Mid-Axillary Chest 10 / 10 0 / 0 Right Mid-Axillary Chest 8 / 8 0 / 0 Narrative: GENERAL: Intubated and sedated SKIN: Warm and dry. HEAD: Atraumatic. Normocephalic. EYES: Pupils equal and round. No scleral icterus. No injection or drainage. ENT: No nasal bleeding or discharge. Mucous membranes pink and moist. NECK: Trachea midline. No JVD. CARDIOVASCULAR: Regular rate and rhythm. RESPIRATORY: No accessory muscle use. Decreased breath sounds bilaterally GASTROINTESTINAL: Abdomen soft, non-tender, nondistended. Hepatic and splenic margins not palpable. MUSCULOSKELETAL: Extremity with bandage, known chronic wound NEUROLOGICAL: Intubated and sedated - Urinary Catheter Management Indwelling Urethral Catheter Cath placed during this visit: yes Reason for continuing: Hourly intake/output Insertion date: 08/11/18 Insertion time: 12:00 Results - Labs CBC & Chem 7: 08/14/18 04:42 08/14/18 04:42 Laboratory Results - last 24 hr 08/13/18 08/13/18 08/14/18 17:09 23:24 04:42 WBC 6.9 RBC 2.67 L Hgb 7.6 L Hct 23.2 L MCV 86.8 MCH 28.6 MCHC 33.0 RDW 16.9 Plt Count 122 L MPV 8.9 APTT Puncture Site Patient Temperature O2 Saturation ABG pH ABG pCO2 ABG pO2 ABG HCO3 ABG O2 Content ABG Base Excess ABG Methemoglobin Parker Test Hemoglobin Carboxyhemoglobin O2 Delivery Device Vent Setting Inspired O2 Critical Value Sodium Potassium Chloride Carbon Dioxide Anion Gap BUN Creatinine Estimated GFR POC Glucose 190 H 241 H Random Glucose Calcium Phosphorus Magnesium 08/14/18 08/14/18 08/14/18 04:42 04:42 05:49 WBC RBC Hgb Hct MCV MCH MCHC RDW Plt Count MPV APTT 48.6 H Puncture Site Left radial Patient Temperature 98.6 O2 Saturation 96 ABG pH 7.41 ABG pCO2 42 ABG pO2 127 H ABG HCO3 26 ABG O2 Content 12.1 ABG Base Excess 2.2 H ABG Methemoglobin 1.7 Parker Test Present Hemoglobin 8.8 L Carboxyhemoglobin 1.0 O2 Delivery Device Ventilator Vent Setting See comments Inspired O2 40 Critical Value No Sodium 140 Potassium 4.0 Chloride 103 Carbon Dioxide 28.0 Anion Gap 9 BUN 78 H Creatinine 2.22 H Estimated GFR 29 L POC Glucose Random Glucose 191 H Calcium 8.5 Phosphorus 3.3 Magnesium 2.3 08/14/18 12:10 WBC RBC Hgb Hct MCV MCH MCHC RDW Plt Count MPV APTT Puncture Site Patient Temperature O2 Saturation ABG pH ABG pCO2 ABG pO2 ABG HCO3 ABG O2 Content ABG Base Excess ABG Methemoglobin Parker Test Hemoglobin Carboxyhemoglobin O2 Delivery Device Vent Setting Inspired O2 Critical Value Sodium Potassium Chloride Carbon Dioxide Anion Gap BUN Creatinine Estimated GFR POC Glucose 210 H Random Glucose Calcium Phosphorus Magnesium Microbiology 08/12/18 08:45 Fluid - Pleural fluid Gram Stain - Final 08/12/18 08:45 Fluid - Pleural fluid Body Fluid Culture - Preliminary No growth in 48 hours 08/11/18 17:02 Fluid - Pleural fluid Gram Stain - Final 08/11/18 17:02 Fluid - Pleural fluid Body Fluid Culture - Final No growth in 72 hours (aerobically and anaerobically ) 08/11/18 17:02 Abscess - Lung Acid Fast Bacilli Smear - Final No acid fast bacilli seen Assessment and Plan - Plan RESPIRATORY FAILURE PNEUMONIA PLEURAL EFFUSION PLAN VENT SUPPORT WEAN TOLERATED PULM TOILET ANTIBX
--- NOTE | 2018-08-14 17:44 | P.PNPOD ---
Subjective Interval history: Right foot gangrene, heel ulcer Review of Systems unobtainable due to endotracheal tube Physical Exam Vital signs: Vital Signs 08/13/18 18:00 08/13/18 19:00 08/13/18 19:37 Temperature Pulse Rate 64 70 74 Respiratory Rate 18 18 18 Blood Pressure 127/62 123/59 L Pulse Oximetry 97 97 96 08/13/18 20:00 08/13/18 21:00 08/13/18 22:00 Temperature 99 F Pulse Rate 72 72 70 Respiratory Rate 18 19 18 Blood Pressure 116/58 L 106/55 L 112/53 L Pulse Oximetry 97 97 100 08/13/18 23:00 08/13/18 23:22 08/14/18 00:00 Temperature Pulse Rate 70 69 Respiratory Rate 19 18 19 Blood Pressure 115/59 L 114/56 L Pulse Oximetry 98 98 98 08/14/18 01:00 08/14/18 02:00 08/14/18 03:00 Temperature Pulse Rate 70 71 65 Respiratory Rate 19 18 19 Blood Pressure 113/57 L 112/58 L 113/56 L Pulse Oximetry 98 98 98 08/14/18 03:35 08/14/18 04:00 08/14/18 05:00 Temperature Pulse Rate 65 69 63 Respiratory Rate 18 18 18 Blood Pressure 118/56 L 115/56 L Pulse Oximetry 98 98 98 08/14/18 06:00 08/14/18 07:00 08/14/18 07:45 Temperature Pulse Rate 76 67 Respiratory Rate 20 18 18 Blood Pressure 105/77 101/52 L Pulse Oximetry 97 96 08/14/18 08:00 08/14/18 09:00 08/14/18 10:00 Temperature 98.0 F Pulse Rate 70 67 63 Respiratory Rate 18 18 17 Blood Pressure 103/52 L 109/55 L 103/52 L Pulse Oximetry 100 95 97 08/14/18 11:00 08/14/18 11:19 08/14/18 12:00 Temperature Pulse Rate 63 67 Respiratory Rate 17 18 18 Blood Pressure 109/53 L 104/52 L Pulse Oximetry 97 97 96 08/14/18 13:00 08/14/18 14:00 08/14/18 14:55 Temperature Pulse Rate 72 63 Respiratory Rate 19 17 19 Blood Pressure 100/52 L 110/55 L Pulse Oximetry 97 96 97 08/14/18 15:00 Temperature Pulse Rate 59 L Respiratory Rate 19 Blood Pressure 108/53 L Pulse Oximetry 96 Intake & Output 08/13/18 08/14/18 08/14/18 18:59 06:59 18:59 Intake Total 1223 / 1223 1692 / 1692 350 / 350 Output Total 1718 / 1718 1250 / 1250 Balance -495 / -495 442 / 442 350 / 350 Weight 153.7 kg Intake: IV 500 / 500 400 / 400 350 / 350 Bumex Inj 25 mg In 100 ml @ 0.5 100 / 100 MG/HR 2 mls/hr IV.CONT .Q24H [facility] Rx#:[id number] Heparin/D5W 25,000 U/250 mL 25, 250 / 250 250 / 250 000 unit In 250 ml @ Per Protocol IV.CONT TITRATE PRN Rx #:[id number] Flexbumin 25% Inj 50 ML @ 12.5 100 / 100 50 / 50 mls/hr IV.SIG Q8H [facility] Rx#: [id number] Maxipime Inj 1,000 MG In NS Inj 100 / 100 100 / 100 100 ML @ 200 mls/hr IV.SIG Q8H [facility] Rx#:[id number] Zyvox 600 mg Premix 300 ML @ 300 / 300 300 mls/hr IV.SIG Q12H [facility] Rx#: [id number] Tube Feeding 523 / 523 460 / 460 Water Bolus Amount 200 / 200 400 / 400 Other 432 / 432 Output: Pleural Fluid 0 / 0 Urine Amount (Catheter) 1700 / 1700 1250 / 1250 Indwelling Urethral Catheter 1700 / 1700 1250 / 1250 Chest Tube Drainage 0 / 0 Left Mid-Axillary Chest 10 10 0 / 0 Right Mid-Axillary Chest 8 / 8 0 / 0 Narrative: Right heel and lateral foot with dark gangrenous tissue present. The margins are stable. No erythema, no edema, no purulence noted at all. There is actually more edema noted to left non-affected foot than this foot. No foul odor present. Medications and Allergies Active Medications: Active Medications Acetaminophen (Tylenol) 650 mg PO Q6H PRN PRN Reason: Temp > 100.4 Al Hydroxide/Mg Hydroxide (Milk Of Magnesia Liq) 30 ml PO Q12H PRN PRN Reason: Mild Constipation Albuterol (Albuterol Neb (Prn)) 2.5 mg NEB Q2HR NEB PRN PRN Reason: DYSPNEA Amlodipine Besylate (Norvasc) 5 mg PO DAILY [facility] Last Admin: 08/14/18 11:39 Dose: Not Given Artificial Tears (Refresh Tears 0.5% Opth Drops) 1 drop EACH EYE BID [facility] Last Admin: 08/14/18 09:15 Dose: 1 drop Aspirin (Aspirin) 325 mg PO DAILY [facility] Last Admin: 08/14/18 09:15 Dose: 325 mg Atorvastatin Calcium (Lipitor) 20 mg PO HS [facility] Last Admin: 08/13/18 22:34 Dose: 20 mg Bisacodyl (Dulcolax Supp) 10 mg RECTAL DAILY PRN PRN Reason: SEVERE CONSITIPATION Carvedilol (Coreg) 3.125 mg PO BID [facility] Last Admin: 08/14/18 09:15 Dose: 3.125 mg Chlorhexidine Gluconate (Chlorhexidine 2% Cloth) 3 pack TOPICAL DAILY@0400 [facility] Stop: 08/15/18 03:59 Last Admin: 08/14/18 08:23 Dose: 3 pack Chlorhexidine Gluconate (Chlorhexidine 2% Cloth) 1 pack TOPICAL PRN PRN PRN Reason: FOR HYGIENIC CARE Chlorhexidine Gluconate (Peridex 0.12% Oral Kit) 15 ml OROPHARYNG BID@0800, 2000 [facility] Last Admin: 08/14/18 09:15 Dose: 15 ml Dextrose (D50w Vial) 50 ml IV.PUSH UNSCH PRN PRN Reason: PER HYPOGLYCEMIA PROTOCOL Duloxetine HCl (Cymbalta) 30 mg PO DAILY [facility] Last Admin: 08/14/18 09:15 Dose: 30 mg Finasteride (Proscar) 5 mg PO DAILY@1800 [facility] Last Admin: 08/13/18 17:07 Dose: 5 mg Gabapentin (Neurontin) 300 mg PO Q6HR [facility] Last Admin: 08/14/18 11:40 Dose: 300 mg Glucagon (Glucagon Inj) 1 mg OTHER PRN PRN PRN Reason: for Hypoglycemia Protocol Guaifenesin (Mucinex Er) 600 mg PO BID [facility] Last Admin: 08/14/18 09:15 Dose: 600 mg Linezolid (Zyvox 600 Mg Premix) 300 mls @ 300 mls/hr IV.SIG Q12H [facility] Last Admin: 08/14/18 08:22 Dose: 100 mls/hr Cefepime HCl 1,000 mg/ Sodium (Chloride) 100 mls @ 200 mls/hr IV.SIG Q8H [facility] Last Admin: 08/14/18 08:24 Dose: 100 mls/hr Fentanyl (Fentanyl 10 Mcg/Ml Premix Drip) 2,500 mcg in 250 mls @ 5 mls/hr IV.SIG TITRATE PRN; Protocol PRN Reason: Per Protocol Last Titration: 08/14/18 01:09 Dose: 150 mcg/hr, 15 mls/hr Midazolam HCl (Versed Inj) 50 mg in 50 mls @ 2 mls/hr IV.CONT TITRATE PRN; Protocol PRN Reason: Per Protocol Norepinephrine Bitartrate 16 (mg/ Sodium Chloride) 250 mls @ 1.87 mls/hr IV.CONT TITRATE PRN; Protocol PRN Reason: See Protocol Bumetanide (Bumex Inj) 25 mg in 100 mls @ 2 mls/hr IV.CONT .Q24H [facility] Last Admin: 08/14/18 08:20 Dose: 0.5 mg/hr, 2 mls/hr Heparin Sodium/Dextrose (Heparin/D5w 25,000 U/250 Ml) 25,000 unit in 250 mls @ 0 mls/hr IV.CONT TITRATE PRN; Protocol PRN Reason: Per Protocol Last Admin: 08/14/18 12:49 Dose: 1,800 units/hr, 18 mls/hr Insulin Aspart (Novolog Insulin Correctional Sugar Inj) 0 unit SQ Q6HR [facility]; Protocol Last Admin: 08/14/18 12:52 Dose: 4 unit Insulin Detemir (Levemir Inj) 5 unit SQ BID [facility] Last Admin: 08/14/18 09:15 Dose: 5 unit Lactulose (Lactulose Liq) 30 ml PO DAILY PRN PRN Reason: SEVERE CONSITIPATION Lansoprazole (Prevacid Solutab) 30 mg NG/OG DAILY [facility] Last Admin: 08/14/18 09:15 Dose: 30 mg Metolazone (Zaroxolyn) 5 mg PO Q12H [facility] Last Admin: 08/14/18 09:15 Dose: 5 mg Miscellaneous Medication () 1 each OROPHARYNG 0000,0400,1200,1600 [facility] Last Admin: 08/14/18 12:53 Dose: 1 each Ondansetron HCl (Zofran Inj) 4 mg IV.PUSH Q6H PRN PRN Reason: NAUSEA OR VOMITING Polyethylene Glycol (Miralax) 17 gm PO BID [facility] Last Admin: 08/14/18 09:15 Dose: 17 gm Potassium Chloride (K-Dur) 20 meq PO BID [facility] Last Admin: 08/14/18 09:15 Dose: 20 meq Senna/Docusate Sodium (Isabella-Colace) 1 tab PO BID [facility] Last Admin: 08/14/18 09:15 Dose: 1 tab Sennosides (Senokot) 17.2 mg PO Q12H PRN PRN Reason: Moderate Constipation Sodium Chloride (Ns Flush) 2 ml IV.FLUSH BID [facility] Last Admin: 08/14/18 09:15 Dose: 2 ml Sodium Chloride (Ns Flush) 2 ml IV.FLUSH PRN PRN PRN Reason: FLUSH AFTER USING IV ACCESS Tamsulosin HCl (Flomax) 0.4 mg PO BID [facility] Last Admin: 08/14/18 09:15 Dose: 0.4 mg Terbutaline Sulfate (Brethine Inj) 1 mg SQ UNSCH PRN PRN Reason: For Extravasation Allergies Allergy/AdvReac Type Severity Reaction Status Date / Time No Known Allergies Allergy Verified 08/06/18 01:24 Home Medications Medication Instructions Recorded Confirmed Type aspirin 325 mg PO DAILY 06/01/18 06/01/18 History atorvastatin [Lipitor] 20 mg PO HS 06/01/18 08/06/18 History duloxetine [Cymbalta] 30 mg PO DAILY 06/01/18 06/01/18 History dutasteride [Avodart] 0.5 mg PO QPM 06/01/18 06/01/18 History gabapentin 300 mg PO Q6HR 06/01/18 06/01/18 History pantoprazole [Protonix] 40 mg PO DAILY 06/01/18 06/01/18 History tamsulosin [Flomax] 0.4 mg PO BID 06/01/18 08/06/18 History Results - Labs CBC & Chem 7: 08/14/18 04:42 08/14/18 04:42 Laboratory Results - last 24 hr 08/13/18 08/14/18 08/14/18 23:24 04:42 04:42 WBC 6.9 RBC 2.67 L Hgb 7.6 L Hct 23.2 L MCV 86.8 MCH 28.6 MCHC 33.0 RDW 16.9 Plt Count 122 L MPV 8.9 APTT Puncture Site Patient Temperature O2 Saturation ABG pH ABG pCO2 ABG pO2 ABG HCO3 ABG O2 Content ABG Base Excess ABG Methemoglobin Parker Test Hemoglobin Carboxyhemoglobin O2 Delivery Device Vent Setting Inspired O2 Critical Value Sodium 140 Potassium 4.0 Chloride 103 Carbon Dioxide 28.0 Anion Gap 9 BUN 78 H Creatinine 2.22 H Estimated GFR 29 L POC Glucose 241 H Random Glucose 191 H Calcium 8.5 Phosphorus 3.3 Magnesium 2.3 08/14/18 08/14/18 08/14/18 04:42 05:49 12:10 WBC RBC Hgb Hct MCV MCH MCHC RDW Plt Count MPV APTT 48.6 H Puncture Site Left radial Patient Temperature 98.6 O2 Saturation 96 ABG pH 7.41 ABG pCO2 42 ABG pO2 127 H ABG HCO3 26 ABG O2 Content 12.1 ABG Base Excess 2.2 H ABG Methemoglobin 1.7 Parker Test Present Hemoglobin 8.8 L Carboxyhemoglobin 1.0 O2 Delivery Device Ventilator Vent Setting See comments Inspired O2 40 Critical Value No Sodium Potassium Chloride Carbon Dioxide Anion Gap BUN Creatinine Estimated GFR POC Glucose 210 H Random Glucose Calcium Phosphorus Magnesium Microbiology 08/12/18 08:45 Fluid - Pleural fluid Gram Stain - Final 08/12/18 08:45 Fluid - Pleural fluid Body Fluid Culture - Preliminary No growth in 48 hours 08/11/18 17:02 Fluid - Pleural fluid Gram Stain - Final 08/11/18 17:02 Fluid - Pleural fluid Body Fluid Culture - Final No growth in 72 hours (aerobically and anaerobically ) 08/11/18 17:02 Abscess - Lung Acid Fast Bacilli Smear - Final No acid fast bacilli seen Assessment and Plan - Assessment (1) Osteomyelitis of ankle and foot Code(s): M86.9 - Osteomyelitis, unspecified Status: Acute - Plan Reviewed chart. Dr Ca had discussed surgery with patient prior to intubation and he was refusing all foot surgery. Assessed wound areas today and found to be dry stable gangrenous changes with clean margins and no sign at all of any acute infection. Discussed with sister, Frances, who was bedside today, that patient previously refused foot surgery. Discussed that the foot is dry and stable, and certainly not an acute issue, but that patient would certainly not survive anesthesia at this point. Discussed that problems need to be prioritized at this time, and that the foot is definitely NOT a priority. Discussed that if the foot condition appeared worse in the past, the antibiotics being used to treat his other issues appear to be helping the foot immensely, since I did not see the foot prior. Discussed that we can revisit options with the patient if he is extubated and alert/oriented x 3, but we will continue to adhere to his wishes for no surgery for his stable foot, unless it is deemed to be necessary to save his life, in his current state. Continue betadine wet to dry dressing to right foot every other day and offloading Patient would also need vascular work up prior to any foot surgery, as well. Re-consult if patient is extubated and willing to discuss further options, otherwise patient will be seen weekly while in-house.
[2018-08-14] MEDS: Finasteride 5 MG Tablet PO SCH (18:35)
[2018-08-14] MEDS: fentaNYL 10 mcg/mL Premix Drip 2,500 MCG/250 ML BAG IV.SIG PRN (18:38)
[2018-08-15] MEDS: Heparin Drip 25,000 UNIT/250 ML BAG IV.CONT PRN ×2 (02:29→17:48)
[2018-08-15] MEDS: Oral Hygiene Kit OROPHARYNG SCH ×4 (03:28→23:51)
[2018-08-15 04:40] LABS: ABG Base Excess 2.4 mmol/L (-2-2); ABG PCO2 38 mmHg (38-42); ABG PO2 111 mmHG (61-120)
[2018-08-15] MEDS: Insulin NovoLOG Aspart Correctional Sugar Inj SQ SCH ×4 (05:36→23:53)
[2018-08-15] MEDS: Gabapentin 300 MG Capsule PO SCH ×4 (05:36→23:50)
[2018-08-15 05:47] LABS: Hematocrit 23.6 % (39.0-51.0); Hemoglobin 7.7 gm/dL (13.0-17.0); Mean Corpuscular HGB Conc 32.7 % (32.0-36.0); Mean Corpuscular Hemoglobin 28.5 pg (27.0-34.0); Mean Corpuscular Volume 87.1 fL (80.0-100.0); Mean Platelet Volume 9.2 fL (7.0-11.0); Platelet Count 111 th/mm3 (150-450); Red Blood Count 2.71 mil/mm3 (4.50-5.90); Red Cell Distribution Width 17.1 % (11.6-17.2); White Blood Count 7.9 th/mm3 (4.0-11.0)
[2018-08-15 06:08] LABS: Calcium 8.3 mg/dL (8.5-10.1); Carbon Dioxide 29.6 meq/L (21.0-32.0); Magnesium 2.5 mg/dL (1.5-2.5); Phosphorus 3.6 mg/dL (2.5-4.9); Potassium 4.1 meq/L (3.5-5.1)
--- NOTE | 2018-08-15 08:42 | P.PNCC ---
Subjective Subjective Remarks/Hospital Course: 73-year-old male with past medical history significant for morbid obesity, peripheral neuropathy, diabetes mellitus, hyperlipidemia and hypertension. Patient is a long-term resident of [facility] in reportedly is not very active and is mostly bedbound. Patient was brought into the emergency room by EMS from [facility] for shortness of breath and hypoxia. Per report patient had an episode of shortness of breath with O2 sats of 70% on room air however patient refused transport to the ER. Thereafter patient had another episode of shortness of breath and hypoxia. By this time patient had been treated with Zyvox for lower extremity wound for positive MRSA as well as recently started on Levaquin for pneumonia at the long-term [facility]. Patient has a PICC line in place and has been treated with IV antibiotics. On arrival his blood pressure was 145/63, heart rate of 81, O2 sats 97% on 10 L simple mask. His blood gas was unremarkable. His creatinine was 1.93 and previously in May 2018 was 1.83. His chest x-ray showed bilateral lung consolidation possible element of pulmonary edema as well as small bilateral pleural effusion. On 08/09 patient became more hypoxemic again requiring the placement on the BiPAP ventilator and transferred to ICU. Critical care services were consulted for management of respiratory failure. 08/10: Afebrile. Currently on 4 L nasal cannula saturations are 90%. Patient normally wears CPAP/BiPAP at home according to patient. Since seen by Dr. Slim Estevez previous hospitalization. SUBJECTIVE: 08/11: Reconsulted this patient remains on BiPAP. Still appears to be normal sinus rhythm. Echocardiogram revealed dilated LV/LVH, left atrial enlargement. Possible calcified lesion left coronary cusp. Currently on furosemide 40 mg IV twice daily. Likely source of ARDS will likely need intubation. 08/12: intubated yesterday. right chest tube placed with > 1L output. CXR improved on the right, but with persistence of left plural effusion. Also, transthoracic echocardiography has failed to have adequate visualization of cardiac windows to rule in or rule out cardiogenic source of hypoxia. 08/13: good diuresis again. left chest tube placed yesterday with 1100cc output yesterday. right chest tube with only 60mL output. CHIKA done yesterday with Grade III diastolic dysfunction as well as probable left atrial appendage thrombus: on anticoagulation. 08/14: Orally intubated on mechanical ventilation. 08/15: Remains sedated, orally intubated on mechanical ventilation. Worsening BUN/creatinine noted. Objective Vital Signs / I&O: Vital Signs 08/14/18 09:00 08/14/18 10:00 08/14/18 11:00 Temperature Pulse Rate 67 63 63 Respiratory Rate 18 17 17 Blood Pressure 109/55 L 103/52 L 109/53 L Pulse Oximetry 95 97 97 08/14/18 11:19 08/14/18 12:00 08/14/18 13:00 Temperature Pulse Rate 67 72 Respiratory Rate 18 18 19 Blood Pressure 104/52 L 100/52 L Pulse Oximetry 97 96 97 08/14/18 14:00 08/14/18 14:55 08/14/18 15:00 Temperature Pulse Rate 63 59 L Respiratory Rate 17 19 19 Blood Pressure 110/55 L 108/53 L Pulse Oximetry 96 97 96 08/14/18 16:00 08/14/18 16:01 08/14/18 17:00 Temperature Pulse Rate 58 L 63 58 L Respiratory Rate 19 18 18 Blood Pressure 110/51 L 106/51 L Pulse Oximetry 97 96 96 08/14/18 18:00 08/14/18 19:00 08/14/18 19:34 Temperature Pulse Rate 62 61 Respiratory Rate 18 24 24 Blood Pressure 105/54 L 106/54 L Pulse Oximetry 100 96 96 08/14/18 20:00 08/14/18 20:01 08/14/18 21:00 Temperature 98.7 F Pulse Rate 54 L 52 L 52 L Respiratory Rate 18 18 19 Blood Pressure 109/53 L 109/53 L 108/53 L Pulse Oximetry 100 100 100 08/14/18 22:00 08/14/18 23:00 08/14/18 23:28 Temperature Pulse Rate 52 L 57 L Respiratory Rate 18 18 18 Blood Pressure 120/58 L 112/55 L Pulse Oximetry 91 L 99 98 08/15/18 00:00 08/15/18 01:00 08/15/18 02:00 Temperature 98.8 F Pulse Rate 63 57 L 72 Respiratory Rate 18 18 21 Blood Pressure 126/59 L 116/56 L Pulse Oximetry 99 98 97 08/15/18 02:25 08/15/18 03:00 08/15/18 03:01 Temperature Pulse Rate 61 53 L 54 L Respiratory Rate 18 18 18 Blood Pressure 131/58 L 101/53 L Pulse Oximetry 100 99 99 08/15/18 03:31 08/15/18 04:00 Temperature 98.1 F Pulse Rate 54 L 55 L Respiratory Rate 18 18 Blood Pressure 117/60 Pulse Oximetry 99 100 Intake & Output 08/14/18 08/15/18 08/15/18 18:59 06:59 18:59 Intake Total 1380 / 1380 1269 / 1269 100 / 100 Output Total 1000 / 1000 1385 / 1385 Balance 380 / 380 -116 / -116 100 / 100 Weight 155.7 kg Intake: IV 850 / 850 1100 / 1100 100 / 100 Bumex Inj 25 mg In 100 ml @ 0.5 200 / 200 MG/HR 2 mls/hr IV.CONT .Q24H [facility] Rx#:[id number] Heparin/D5W 25,000 U/250 mL 25, 250 / 250 250 / 250 000 unit In 250 ml @ Per Protocol IV.CONT TITRATE PRN Rx #:[id number] Maxipime Inj 1,000 MG In NS Inj 100 / 100 200 / 200 100 / 100 100 ML @ 200 mls/hr IV.SIG Q8H [facility] Rx#:[id number] Zyvox 600 mg Premix 300 ML @ 300 / 300 600 / 600 300 mls/hr IV.SIG Q12H [facility] Rx#: [id number] Tube Feeding 330 / 330 29 / 29 Tube Irrigant 140 / 140 Water Bolus Amount 200 / 200 Output: Urine Amount (Catheter) 1000 / 1000 1375 / 1375 Indwelling Urethral Catheter 1000 / 1000 1375 / 1375 Chest Tube Drainage 10 / 10 Left Mid-Axillary Chest 10 / 10 Right Mid-Axillary Chest 0 / 0 Other: Date of Last Bowel Movement 08/15/18 # Bowel Movements 2 Result Diagrams: 08/15/18 05:11 08/15/18 05:11 Objective Remarks: GENERAL: 73-year-old male, lying in bed, intubated, sedated SKIN: Cool and dry HEAD: Atraumatic. Normocephalic. EYES: Pupils equal and round. No scleral icterus. No injection or drainage. ENT: No nasal bleeding or discharge. Mucous membranes pink and moist. NECK: Trachea midline. No JVD. CARDIOVASCULAR: Regular rate and rhythm. RESPIRATORY: on mech vent, Diminished breath sounds. Few fine crackles appreciated anteriorly. No wheezing. right chest tube in place with serous output, to suction, no air leak. left chest tube in place to suction, serous output. GASTROINTESTINAL: Abdomen obese and protuberant. no guarding. MUSCULOSKELETAL: Extremities with right lower extremity with destruction of the second/third/fourth digits foot to bone. Currently covered with Juan bandage NEUROLOGICAL: RASS -2. awakens and follows commands. Assessment and Plan - Assessment and Plan Plan: Assessment: 73yM morbidly obese with refractory acute hypoxic and hypercarbic respiratory failure. Likely secondary to mixed systolic- and diastolic heart failure exacerbation. forced diuresis. JOSE worsening Neuro/Psych: Depression Peripheral neuropathy History of right frontal CVA Currently on fentanyl for sedation/analgesia while intubated Goal of RASS -2 Daily sedation vacation Continue acetaminophen 650 every 6 hours as needed fever Morphine sulfate 2 mg IV every 4 hours as needed pain 6 or 10 Gabapentin 300 mg p.o. every 6 hours peripheral neuropathy Duloxetine 30 mg daily for depression continue CV: Essential hypertension Hyperlipidemia History of non-STEMI EF 35-40% Grade III Diastolic Dysfunction Acute Congestive Heart Failure Exacerbation, mixed systolic- and diastolic- type. Left atrial appendage thrombus Continue amlodipine 5 mg daily, carvedilol 3.125 mg twice daily and hydralazine 50 mg 3 times daily for hypertension Continue atorvastatin 20 mg daily for hyperlipidemia Last echo 06/12 revealed LVEF - hard to assess but suspect mildly impaired. Current echocardiogram 06/11 revealed EF around 55%. Dilated LV/LVH and left atrial enlargement. PAP 26 MAC. Possible left coronary cusp calcification. CHIKA 08/13: EF 35-40%, Grade III Diastolic Dysfunction, probable left atrial thrombus. continue bumex infusion at 0.5mg/hr metolazone 5mg po BID Resp: Acute hypoxic and hypercarbic respiratory failure- persistent OHS Bilateral pleural effusions Pulmonary edema intubated 06/11. severe bilateral pulmonary infiltrates as well as bilateral large pleural effusions likely cause is multifactorial- large cardiogenic pulmonary edema component right chest tube placed 08/11: keep to suction today left chest tube placed 08/12: keep to suction today Ventilator bundle Titrate to keep saturations greater than 90% Albuterol/ipratropium aerosols every 6 hours with albuterol aerosols every 2 hours as needed dyspnea GI: Gastroesophageal reflux disease Hypoalbuminemia Severe acute protein calorie malnutrition Glucerna 1.5 goal 60 cc an hour GI prophylaxis/home medication pantoprazole 40 mg daily Docusate sodium/senna 1 tablet twice daily for bowel regimen along with polythene glycol 17 g twice daily pre-albumin 12 on 08/13 : BPH Continue tamsulosin 0.4 mg daily for BPH Endo: Diabetes mellitus Currently on sliding scale insulin aspart medium protocol Insulin detemir 5 units twice daily TSH was 2.77 Renal: Acute kidney injury superimposed on CKD Chronic kidney disease stage II Renal ultrasound scan revealed increased echogenicity to the right kidney Creatinine continues to increase. Being diuresed. Nephrology consult requested 08/15 keep maldonado for accurate q1h I/Os. Monitor urine output Accurate I's and O's Heme: Thrombocytopenia Normocytic anemia Left Atrial appendage thrombus Monitor CBCs daily. Follow trends. No indication for transfusion of blood products at this time. therapeutic anticoagulation with heparin drip for ENID thrombus. 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 Fifth metatarsal head with destruction. Will likely need amputation Followed by podiatry. Access -Right upper extremity PICC line. Prophylaxis -GI -lansoprazole -DVT -heparin drip Critical care time 35 minutes, exclusive of separately billable procedures.
--- NOTE | 2018-08-15 10:10 | CT ---
EXAM DATE: 08/15/2018 9:31 AM EDT AGE/SEX: 73 years / Male INDICATIONS: Altered mental status. CLINICAL DATA: This is the patient's initial encounter. Patient reports that signs and symptoms have been present for 1 day and indicates a pain score of Nonresponsive. MEDICAL/SURGICAL HISTORY: Chronic obstructive pulmonary disease. Myocardial infarction. Chest tube , right. Chest tube, left. RADIATION DOSE: 64.63 CTDI (mGy) COMPARISON: [facility], CT HEAD W/O CONTRAST, 06/01/2018. . TECHNIQUE: CT of the head without contrast. Using automated exposure control and adjustment of the mA and/or kV according to patient size, radiation dose was kept as low as reasonably achievable to ob tain optimal diagnostic quality images. DICOM format image data is available electronically for revi ew and comparison. FINDINGS: Cerebrum: The ventricles are normal for age with moderate atrophic change with sulcal and ventricula r prominence. There is a focal area of encephalomalacia again noted in the left frontal lobe. There a re stable punctate calcifications. No evidence of midline shift, mass lesion, hemorrhage or acute inf arction. No extraaxial fluid collections are seen. Posterior Fossa: The cerebellum and brainstem are intact. The 4th ventricle is midline. The cerebe llopontine angle is unremarkable. Extracranial: The visualized portion of the orbits is intact. There is new opacification of the mast oid air cells bilaterally was not present on the prior study. Skull: The calvaria is intact. No evidence of skull fracture. CONCLUSION: 1. No acute hemorrhage or mass effect identified. 2. Focal encephalomalacia in the left frontal lobe. 3. Opacification of the mastoid air cells bilaterally which is new from the prior study consistent w ith acute mastoiditis. 4. Moderate atrophic change. . Electronically signed by: Alan Sen MD 08/15/2018 10:08 AM EDT
[2018-08-15] MEDS: metOLazone 5 MG Tablet PO SCH ×2 (10:36→20:38)
[2018-08-15] MEDS: Chlorhexidine 0.12% Oral Kit 15 ML UDC OROPHARYNG SCH ×2 (10:36→20:37)
[2018-08-15] MEDS: Senna/Docusate Sodium 8.6/50 MG Tablet PO SCH ×2 (10:37→20:38)
[2018-08-15] MEDS: guaiFENesin 600 MG ER Tablet PO SCH ×2 (10:37→20:38)
[2018-08-15] MEDS: Insulin Detemir Inj 1,000 UNIT/10 ML Vial SQ SCH ×2 (10:37→20:39)
[2018-08-15] MEDS: Carboxymethylcellulose 0.5% Opth Drops 15 ML Bottle EACH EYE SCH ×2 (10:37→20:39)
[2018-08-15] MEDS: Polyethylene Glycol 3350 17 GM Packet PO SCH ×2 (10:37→20:38)
[2018-08-15] MEDS: Aspirin 325 MG Tablet PO SCH (10:38)
[2018-08-15] MEDS: Sodium Chloride 0.9% 2 ML Flush BID IV.FLUSH SCH ×2 (10:51→20:39)
--- NOTE | 2018-08-15 11:52 | P.CONNEU ---
History of Present Illness Service: Neurology Primary Care Provider: UNKNOWN Chief Complaint: Stroke History of Present Illness: 73-year-old male critical care unit with respiratory failure, renal failure infection history of previous stroke, CHF, on heparin drip. Noted to have more lethargy weakness. Unable to obtain any information from patient medical chart reviewed. CT brain scan showing left frontal encephalomalacia from probable remote stroke. Review of Systems unobtainable due to endotracheal tube, unobtainable due to mental status PMFSH - History History Provided By: Patient - Medical History Medical History: Medical History (Last Reviewed 08/10/18 @ 16:16 by Funmi Pierce) Obesity Depression Diabetes Diabetes GERD (gastroesophageal reflux disease) HTN (hypertension) High cholesterol Neuropathy - Family History Family History: Family History (Last Updated 08/11/18 @ 14:59 by Cynthia Hedrick) Father Malignancy - Tobacco History Second Hand Smoke Exposure: No Tobacco Use In Past 30 Days: No Smoking Status: Former smoker Tobacco Type: Cigarettes - Alcohol History How Often Do You Have a Drink Containing Alcohol: Never - Substance Use History Substance History: No History of Abuse - Immunization History Tetanus Immunization: Unsure Hx Influenza Vaccine This Season: No Medications and Allergies Active Medications: Active Medications Acetaminophen (Tylenol) 650 mg PO Q6H PRN PRN Reason: Temp > 100.4 Al Hydroxide/Mg Hydroxide (Milk Of Rasheed Olmedo) 30 ml PO Q12H PRN PRN Reason: Mild Constipation Albuterol (Albuterol Neb (Prn)) 2.5 mg NEB Q2HR NEB PRN PRN Reason: DYSPNEA Last Admin: 08/15/18 03:30 Dose: 2.5 mg Amlodipine Besylate (Norvasc) 5 mg PO DAILY [facility] Last Admin: 08/14/18 11:39 Dose: Not Given Artificial Tears (Refresh Tears 0.5% Opth Drops) 1 drop EACH EYE BID [facility] Last Admin: 08/15/18 10:37 Dose: 1 drop Aspirin (Aspirin) 325 mg PO DAILY [facility] Last Admin: 08/15/18 10:38 Dose: 325 mg Atorvastatin Calcium (Lipitor) 20 mg PO HS [facility] Last Admin: 08/14/18 20:34 Dose: 20 mg Bisacodyl (Dulcolax Supp) 10 mg RECTAL DAILY PRN PRN Reason: SEVERE CONSITIPATION Carvedilol (Coreg) 3.125 mg PO BID [facility] Last Admin: 08/14/18 20:34 Dose: Not Given Chlorhexidine Gluconate (Chlorhexidine 2% Cloth) 1 pack TOPICAL PRN PRN PRN Reason: FOR HYGIENIC CARE Chlorhexidine Gluconate (Peridex 0.12% Oral Kit) 15 ml OROPHARYNG BID@0800, 2000 [facility] Last Admin: 08/15/18 10:36 Dose: 15 ml Dextrose (D50w Vial) 50 ml IV.PUSH UNSCH PRN PRN Reason: PER HYPOGLYCEMIA PROTOCOL Duloxetine HCl (Cymbalta) 30 mg PO DAILY [facility] Last Admin: 08/15/18 10:50 Dose: 30 mg Finasteride (Proscar) 5 mg PO DAILY@1800 [facility] Last Admin: 08/14/18 18:35 Dose: 5 mg Gabapentin (Neurontin) 300 mg PO Q6HR [facility] Last Admin: 08/15/18 05:36 Dose: 300 mg Glucagon (Glucagon Inj) 1 mg OTHER PRN PRN PRN Reason: for Hypoglycemia Protocol Guaifenesin (Mucinex Er) 600 mg PO BID [facility] Last Admin: 08/15/18 10:37 Dose: 600 mg Linezolid (Zyvox 600 Mg Premix) 300 mls @ 300 mls/hr IV.SIG Q12H [facility] Last Infusion: 08/15/18 06:24 Dose: Infused Cefepime HCl 1,000 mg/ Sodium (Chloride) 100 mls @ 200 mls/hr IV.SIG Q8H [facility] Last Infusion: 08/15/18 07:30 Dose: Infused Fentanyl (Fentanyl 10 Mcg/Ml Premix Drip) 2,500 mcg in 250 mls @ 5 mls/hr IV.SIG TITRATE PRN; Protocol PRN Reason: Per Protocol Last Titration: 08/15/18 07:30 Dose: 50 mcg/hr, 5 mls/hr Midazolam HCl (Versed Inj) 50 mg in 50 mls @ 2 mls/hr IV.CONT TITRATE PRN; Protocol PRN Reason: Per Protocol Norepinephrine Bitartrate 16 (mg/ Sodium Chloride) 250 mls @ 1.87 mls/hr IV.CONT TITRATE PRN; Protocol PRN Reason: See Protocol Bumetanide (Bumex Inj) 25 mg in 100 mls @ 2 mls/hr IV.CONT .Q24H [facility] Last Infusion: 08/15/18 07:30 Dose: 0.5 mg/hr, 2 mls/hr Heparin Sodium/Dextrose (Heparin/D5w 25,000 U/250 Ml) 25,000 unit in 250 mls @ 0 mls/hr IV.CONT TITRATE PRN; Protocol PRN Reason: Per Protocol Last Titration: 08/15/18 07:30 Dose: 1,800 units/hr, 18 mls/hr Insulin Aspart (Novolog Insulin Correctional Sugar Inj) 0 unit SQ Q6HR [facility]; Protocol Last Admin: 08/15/18 05:36 Dose: 4 unit Insulin Detemir (Levemir Inj) 5 unit SQ BID [facility] Last Admin: 08/15/18 10:37 Dose: 5 unit Lactulose (Lactulose Liq) 30 ml PO DAILY PRN PRN Reason: SEVERE CONSITIPATION Lansoprazole (Prevacid Solutab) 30 mg NG/OG DAILY [facility] Last Admin: 08/15/18 10:37 Dose: 30 mg Metolazone (Zaroxolyn) 5 mg PO Q12H [facility] Last Admin: 08/15/18 10:36 Dose: 5 mg Miscellaneous Medication () 1 each OROPHARYNG 0000,0400,1200,1600 [facility] Last Admin: 08/15/18 03:28 Dose: 1 each Ondansetron HCl (Zofran Inj) 4 mg IV.PUSH Q6H PRN PRN Reason: NAUSEA OR VOMITING Polyethylene Glycol (Miralax) 17 gm PO BID [facility] Last Admin: 08/15/18 10:37 Dose: Not Given Potassium Chloride (K-Dur) 20 meq PO BID [facility] Last Admin: 08/15/18 10:38 Dose: 20 meq Senna/Docusate Sodium (Isabella-Colace) 1 tab PO BID [facility] Last Admin: 08/15/18 10:37 Dose: Not Given Sennosides (Senokot) 17.2 mg PO Q12H PRN PRN Reason: Moderate Constipation Sodium Chloride (Ns Flush) 2 ml IV.FLUSH BID [facility] Last Admin: 08/15/18 10:51 Dose: 2 ml Sodium Chloride (Ns Flush) 2 ml IV.FLUSH PRN PRN PRN Reason: FLUSH AFTER USING IV ACCESS Tamsulosin HCl (Flomax) 0.4 mg PO BID [facility] Last Admin: 08/15/18 10:38 Dose: 0.4 mg Terbutaline Sulfate (Brethine Inj) 1 mg SQ UNSCH PRN PRN Reason: For Extravasation Allergies Allergy/AdvReac Type Severity Reaction Status Date / Time No Known Allergies Allergy Verified 08/06/18 01:24 Home Medications Medication Instructions Recorded Confirmed Type aspirin 325 mg PO DAILY 06/01/18 06/01/18 History atorvastatin [Lipitor] 20 mg PO HS 06/01/18 08/06/18 History duloxetine [Cymbalta] 30 mg PO DAILY 06/01/18 06/01/18 History dutasteride [Avodart] 0.5 mg PO QPM 06/01/18 06/01/18 History gabapentin 300 mg PO Q6HR 06/01/18 06/01/18 History pantoprazole [Protonix] 40 mg PO DAILY 06/01/18 06/01/18 History tamsulosin [Flomax] 0.4 mg PO BID 06/01/18 08/06/18 History Exam Vital signs: Vital Signs 08/14/18 12:00 08/14/18 13:00 08/14/18 14:00 Temperature Pulse Rate 67 72 63 Respiratory Rate 18 19 17 Blood Pressure 104/52 L 100/52 L 110/55 L Pulse Oximetry 96 97 96 08/14/18 14:55 08/14/18 15:00 08/14/18 16:00 Temperature Pulse Rate 59 L 58 L Respiratory Rate 19 19 19 Blood Pressure 108/53 L Pulse Oximetry 97 96 97 08/14/18 16:01 08/14/18 17:00 08/14/18 18:00 Temperature Pulse Rate 63 58 L 62 Respiratory Rate 18 18 18 Blood Pressure 110/51 L 106/51 L 105/54 L Pulse Oximetry 96 96 100 08/14/18 19:00 08/14/18 19:34 08/14/18 20:00 Temperature 98.7 F Pulse Rate 61 54 L Respiratory Rate 24 24 18 Blood Pressure 106/54 L 109/53 L Pulse Oximetry 96 96 100 08/14/18 20:01 08/14/18 21:00 08/14/18 22:00 Temperature Pulse Rate 52 L 52 L 52 L Respiratory Rate 18 19 18 Blood Pressure 109/53 L 108/53 L 120/58 L Pulse Oximetry 100 100 91 L 08/14/18 23:00 08/14/18 23:28 08/15/18 00:00 Temperature 98.8 F Pulse Rate 57 L 63 Respiratory Rate 18 18 18 Blood Pressure 112/55 L 126/59 L Pulse Oximetry 99 98 99 08/15/18 01:00 08/15/18 02:00 08/15/18 02:25 Temperature Pulse Rate 57 L 72 61 Respiratory Rate 18 21 18 Blood Pressure 116/56 L 131/58 L Pulse Oximetry 98 97 100 08/15/18 03:00 08/15/18 03:01 08/15/18 03:31 Temperature Pulse Rate 53 L 54 L 54 L Respiratory Rate 18 18 18 Blood Pressure 101/53 L Pulse Oximetry 99 99 99 08/15/18 04:00 08/15/18 08:03 08/15/18 09:59 Temperature 98.1 F Pulse Rate 55 L Respiratory Rate 18 18 Blood Pressure 117/60 Pulse Oximetry 100 98 100 Intake & Output 08/14/18 08/15/18 08/15/18 18:59 06:59 18:59 Intake Total 1380 / 1380 1269 / 1269 100 / 100 Output Total 1000 / 1000 1385 / 1385 Balance 380 / 380 -116 / -116 100 / 100 Weight 155.7 kg Intake: IV 850 / 850 1100 / 1100 100 / 100 Bumex Inj 25 mg In 100 ml @ 0.5 200 / 200 MG/HR 2 mls/hr IV.CONT .Q24H [facility] Rx#:[id number] Heparin/D5W 25,000 U/250 mL 25, 250 / 250 250 / 250 000 unit In 250 ml @ Per Protocol IV.CONT TITRATE PRN Rx #:[id number] Maxipime Inj 1,000 MG In NS Inj 100 / 100 200 / 200 100 / 100 100 ML @ 200 mls/hr IV.SIG Q8H [facility] Rx#:[id number] Zyvox 600 mg Premix 300 ML @ 300 / 300 600 / 600 300 mls/hr IV.SIG Q12H [facility] Rx#: [id number] Tube Feeding 330 / 330 29 / 29 Tube Irrigant 140 / 140 Water Bolus Amount 200 / 200 Output: Urine Amount (Catheter) 1000 / 1000 1375 / 1375 Indwelling Urethral Catheter 1000 / 1000 1375 / 1375 Chest Tube Drainage 10 / 10 Left Mid-Axillary Chest 10 / 10 Right Mid-Axillary Chest 0 / 0 Other: Date of Last Bowel Movement 08/15/18 # Bowel Movements 2 Narrative: GENERAL: in NAD, SKIN: Warm and dry. HEAD: Atraumatic. Normocephalic. ENT: No nasal bleeding or discharge. Mucous membranes pink and moist. NECK: Intubated CARDIOVASCULAR: Regular rate and rhythm. RESPIRATORY: Intubated GASTROINTESTINAL: Abdomen soft, non-tender, nondistended. MUSCULOSKELETAL: No gross deformity NEUROLOGICAL: Intubated, stuporous state, not following nonverbal, grimaces mild right gaze preference, no involuntary movements, OU 3 mm sluggishly reactive positive doll's eye with intact oculocephalic reflex, localizes all 4 extremity flexed with the uppers withdraws to the lowers plantarflex her no clonus reflexes depressed further sensory cerebellar gait testing limited secondary mental status PSYCHIATRIC: Intubated, calm - Constitutional no acute distress - Routine HEENT Exam Head: Present: normocephalic Results - Labs CBC & Chem 7: 08/15/18 05:11 08/15/18 05:11 Labs: Laboratory Results - last 24 hr 08/14/18 08/14/18 08/14/18 12:10 18:53 20:31 WBC RBC Hgb Hct MCV MCH MCHC RDW Plt Count MPV APTT Puncture Site Patient Temperature O2 Saturation ABG pH ABG pCO2 ABG pO2 ABG HCO3 ABG O2 Content ABG Base Excess ABG Methemoglobin Parker Test Hemoglobin Carboxyhemoglobin O2 Delivery Device Vent Setting Inspired O2 Critical Value Sodium Potassium Chloride Carbon Dioxide Anion Gap BUN Creatinine Estimated GFR POC Glucose 210 H 263 H 234 H Random Glucose Calcium Phosphorus Magnesium 08/14/18 08/15/18 08/15/18 23:33 04:24 05:11 WBC 7.9 RBC 2.71 L Hgb 7.7 L Hct 23.6 L MCV 87.1 MCH 28.5 MCHC 32.7 RDW 17.1 Plt Count 111 L MPV 9.2 APTT Puncture Site Left radial Patient Temperature 98.6 O2 Saturation 96 ABG pH 7.46 H ABG pCO2 38 ABG pO2 111 ABG HCO3 26 ABG O2 Content 11.0 L ABG Base Excess 2.4 H ABG Methemoglobin 1.2 Parker Test Present Hemoglobin 8.0 L Carboxyhemoglobin 1.3 O2 Delivery Device Ventilator Vent Setting See comments Inspired O2 40 Critical Value No Sodium Potassium Chloride Carbon Dioxide Anion Gap BUN Creatinine Estimated GFR POC Glucose 250 H Random Glucose Calcium Phosphorus Magnesium 08/15/18 08/15/18 08/15/18 05:11 05:11 05:27 WBC RBC Hgb Hct MCV MCH MCHC RDW Plt Count MPV APTT 59.2 H D Puncture Site Patient Temperature O2 Saturation ABG pH ABG pCO2 ABG pO2 ABG HCO3 ABG O2 Content ABG Base Excess ABG Methemoglobin Parker Test Hemoglobin Carboxyhemoglobin O2 Delivery Device Vent Setting Inspired O2 Critical Value Sodium 138 Potassium 4.1 Chloride 101 Carbon Dioxide 29.6 Anion Gap 7 BUN 83 H Creatinine 2.35 H Estimated GFR 27 L POC Glucose 248 H Random Glucose 212 H Calcium 8.3 L Phosphorus 3.6 Magnesium 2.5 - Imaging Impressions Head CT 08/15/18 09:27 CONCLUSION: 1. No acute hemorrhage or mass effect identified. 2. Focal encephalomalacia in the left frontal lobe. 3. Opacification of the mastoid air cells bilaterally which is new from the prior study consistent with acute mastoiditis. 4. Moderate atrophic change. . Review/Management - Diagnosis (1) Chronic right arterial ischemic stroke, MCA (middle cerebral artery) Code(s): I69.30 - Unspecified sequelae of cerebral infarction Status: Acute Current Visit: Yes (2) Osteomyelitis of ankle and foot Code(s): M86.9 - Osteomyelitis, unspecified Status: Acute Current Visit: Yes (3) Diastolic heart failure Code(s): I50.30 - Unspecified diastolic (congestive) heart failure Status: Acute Current Visit: Yes (4) Respiratory failure Code(s): J96.90 - Respiratory failure, unspecified, unspecified whether with hypoxia or hypercapnia Status: Acute Current Visit: Yes (5) Kidney disease Code(s): N28.9 - Disorder of kidney and ureter, unspecified Status: Acute Current Visit: No - Review/Management Plan: Had a CHIKA which showed EF 35-40%, 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 Currently on heparin drip. Is at risk for shower embolic events However suspect he has a metabolic encephalopathy at present related to renal disease, respiratory failure, cardiac disease Exclude any seizure activity; at high risk with previous stroke and metabolic abnormalities Recommendation EEG MRI brain noncontrast if feasible Follow exam Discussed with MEHRAN
[2018-08-15] MEDS: amLODIPine 5 MG Tablet PO SCH (12:53)
[2018-08-15] MEDS ORDERED: DOPamine Inj 800 MG in Sodium Chlor 0.9% Inj 500 ML IV.CONT PRN (13:13)
[2018-08-15] MEDS: DOPAMINE IV.CONT PRN ×2 (13:45→17:30)
[2018-08-15] MEDS: SODIUM CHLOR 0.9% IV.CONT PRN ×2 (13:45→17:30)
--- NOTE | 2018-08-15 15:36 | MB ---
cc: Michoacano Weiss MD DATE: 08/15/2018 REASON FOR CONSULTATION: Acute on chronic renal failure management. HISTORY OF PRESENT ILLNESS: This is a 73-year-old male with a past medical history of hypertension, dyslipidemia, diabetes, peripheral neuropathy and morbid obesity. The patient was residing at [facility]. He was admitted here at [facility] on 08/06/2018 with presentation of respiratory distress and hypoxia. He had apparently been on Zyvox at the detention for lower extremity wound infection with osteomyelitis which was positive for MRSA. He had also been on Levaquin for pneumonia. The patient has been admitted here for approximately a week and a half. Along his hospital course, the patient developed worsening respiratory distress, which was attributed to acute respiratory distress syndrome and respiratory failure. He was intubated and has been in the ICU since 08/09/2018. He was initially given chest tubes as well for pleural effusions. On 08/13/2018, he had placement of the chest tubes with 1.1 liter of fluid out at that time. The patient has been maintained on diuretic management while intubated, with Bumex at 0.5 mg per hour as well as metolazone 5 mg daily. The patient also had a cardiac echo, which revealed a 35% ejection fraction. Incidentally, a left atrial appendage thrombus was seen during the echo and he has been started on heparin drip for that as well. The patient has been followed up here with infectious disease and currently he is off Zyvox and is currently on ceftriaxone per infectious disease. Podiatry has been consulted as well to evaluate a chronic ongoing osteomyelitis issue. He continues on antibiotics for that. Regarding his renal function, the patient was recently admitted here in May of this year. At that time, he had an episode of acute kidney injury secondary to apparent non-ST elevation FL and hypotension. At that time, his creatinine peaked at a level of 2.9 and improved to a level of 1.8. At the time of his admission here on 08/06/2018 he had a creatinine of 1.9. His creatinine has gradually been rising and went from a level of 2.2 to 2.3 yesterday. On his Bumex and metolazone IV, the patient has had approximately 2.3 liters of urine output over the last 24 hours. A renal ultrasound was done in May which showed some increased echogenicity suggestive of CKD as well. At that time, he had a 100 protein in his urinalysis. The patient at this time is intubated and sedated. History is obtained from the chart. Nephrology was consulted for evaluation of acute on chronic renal failure. REVIEW OF SYSTEMS: Unobtainable as the patient is intubated. PAST MEDICAL HISTORY: Includes obesity, depression, diabetes, GERD, hypertension, dyslipidemia, neuropathy, CHF. SOCIAL HISTORY: Former smoker. No recent alcohol, tobacco or drug use. The patient was residing at [facility]. FAMILY HISTORY: Noncontributory. ALLERGIES: NO KNOWN DRUG ALLERGIES. PHYSICAL EXAMINATION: VITAL SIGNS: At time of evaluation, temperature 98.1, pulse 55, respiratory rate 18, blood pressure 117/60, respiratory rate of 18 on 35% FiO2. The patient remains intubated. GENERAL: Intubated, sedated. NECK: Soft, supple. CARDIAC: Regular rate and rhythm. PULMONARY: Decreased breath sounds at bases. The patient has chest tubes in place. ABDOMEN: Obese, nontender, nondistended. EXTREMITIES: Trace edema. LABORATORY FINDINGS: Sodium 138, potassium 4.1, chloride 101, bicarbonate 29.6, BUN 83, creatinine 2.3, glucose 212. HbA1c 8.3. Calcium 8.3, phosphorus 3.6, magnesium 2.5, albumin 2.3. Urinalysis from May showed 100 protein, microalbumin to creatinine ratio was 371 at that time. White count 7.9, hemoglobin 7.7, hematocrit 23.6 with platelet count 111. ASSESSMENT AND PLAN: 1. Acute on chronic kidney disease. The patient had recent episode of acute renal failure in May of this year. At that time, his creatinine ranged from a peak of 2.9 and improved to a level of 1.8. That was in acute kidney injury attributed to a non-ST elevation FL at that time. Today, he has a creatinine of 2.3. His initial creatinine was 1.9 at the time of this admission, on 08/06/2018. He has had good urine output with diuresis on Bumex 0.5 mg per hour as well as Metolazone 5 mg daily with 2.3 liters urine output over the last 24 hours. At this point, I suspect the patient has some mild acute kidney injury on chronic kidney disease secondary to current illness with ARDS and respiratory failure with intubation. His blood pressure has remained fairly stable at this point. There may be some fluctuations in his creatinine secondary to diuresis as well as chest tube drainage with 1.1 liter of chest tube drainage on 08/13/2018. At this point, the patient requires ongoing diuresis, given his respiratory failure. I agree with the current dosing of Bumex and metolazone at this time. There may be some underlying chronic kidney disease, here with increased echogenicity seen on the renal ultrasound last May. His albumin is somewhat low at the level of 2.3; however, he only had 100 protein on his urinalysis in May. I will repeat a urinalysis at this point. Continue with diuretics at this time. Continue to monitor renal function. It is encouraging that he has good urine output at this point. Continue with diuretics. 2. Respiratory failure. The patient has respiratory failure attributed to ARDS with underlying pneumonia as well as possible CHF. He has a known 35% ejection fraction. We will continue with diuresis. Continue followup with critical care team. 3. Benign prostatic hypertrophy. The patient continues on Flomax. 4. Diabetes. The patient continues on insulin sliding scale. 5. Left atrial appendage thrombus. The patient was incidentally found to have a low atrial appendage thrombus on the echo. He is on heparin drip. Continue followup with ICU team. 6. Pneumonia and osteomyelitis. The patient is being followed up with Infectious Disease. He is currently off Zyvox and is currently on ceftriaxone. Continue renal-dose medications and antibiotics and avoid nephrotoxins as possible. 7. Anemia. The patient with a hemoglobin 7.7. Continue to follow and transfuse as needed. MD ERICKSON Andersen/vince , 12:05 PM , 12:16 PM RADHA
--- NOTE | 2018-08-15 16:57 | P.PN ---
Subjective Interval history: [id number] ON THE VENT Physical Exam Vital signs: Vital Signs 08/14/18 17:00 08/14/18 18:00 08/14/18 19:00 Temperature Pulse Rate 58 L 62 61 Respiratory Rate 18 18 24 Blood Pressure 106/51 L 105/54 L 106/54 L Pulse Oximetry 96 100 96 08/14/18 19:34 08/14/18 20:00 08/14/18 20:01 Temperature 98.7 F Pulse Rate 54 L 52 L Respiratory Rate 24 18 18 Blood Pressure 109/53 L 109/53 L Pulse Oximetry 96 100 100 08/14/18 21:00 08/14/18 22:00 08/14/18 23:00 Temperature Pulse Rate 52 L 52 L 57 L Respiratory Rate 19 18 18 Blood Pressure 108/53 L 120/58 L 112/55 L Pulse Oximetry 100 91 L 99 08/14/18 23:28 08/15/18 00:00 08/15/18 01:00 Temperature 98.8 F Pulse Rate 63 57 L Respiratory Rate 18 18 18 Blood Pressure 126/59 L 116/56 L Pulse Oximetry 98 99 98 08/15/18 02:00 08/15/18 02:25 08/15/18 03:00 Temperature Pulse Rate 72 61 53 L Respiratory Rate 21 18 18 Blood Pressure 131/58 L Pulse Oximetry 97 100 99 08/15/18 03:01 08/15/18 03:31 08/15/18 04:00 Temperature 98.1 F Pulse Rate 54 L 54 L 55 L Respiratory Rate 18 18 18 Blood Pressure 101/53 L 117/60 Pulse Oximetry 99 99 100 08/15/18 08:00 08/15/18 08:03 08/15/18 09:59 Temperature 98.8 F Pulse Rate 49 L Respiratory Rate 18 18 Blood Pressure 97/47 L Pulse Oximetry 98 98 100 08/15/18 10:00 08/15/18 11:49 08/15/18 12:00 Temperature 98.7 F Pulse Rate 53 L 43 L Respiratory Rate 18 18 Blood Pressure 108/54 L Pulse Oximetry 98 97 08/15/18 14:00 08/15/18 16:00 Temperature 97.8 F Pulse Rate 80 76 Respiratory Rate 18 Blood Pressure 121/57 L Pulse Oximetry 90 L Intake & Output 08/14/18 08/15/18 08/15/18 18:59 06:59 18:59 Intake Total 1380 / 1380 1269 / 1269 100 / 100 Output Total 1000 / 1000 1385 / 1385 Balance 380 / 380 -116 / -116 100 / 100 Weight 155.7 kg Intake: IV 850 / 850 1100 / 1100 100 / 100 Bumex Inj 25 mg In 100 ml @ 0.5 200 / 200 MG/HR 2 mls/hr IV.CONT .Q24H [facility] Rx#:[id number] Heparin/D5W 25,000 U/250 mL 25, 250 / 250 250 / 250 000 unit In 250 ml @ Per Protocol IV.CONT TITRATE PRN Rx #:[id number] Maxipime Inj 1,000 MG In NS Inj 100 / 100 200 / 200 100 / 100 100 ML @ 200 mls/hr IV.SIG Q8H [facility] Rx#:[id number] Zyvox 600 mg Premix 300 ML @ 300 / 300 600 / 600 300 mls/hr IV.SIG Q12H [facility] Rx#: [id number] Tube Feeding 330 / 330 29 / 29 Tube Irrigant 140 / 140 Water Bolus Amount 200 / 200 Output: Urine Amount (Catheter) 1000 / 1000 1375 / 1375 Indwelling Urethral Catheter 1000 / 1000 1375 / 1375 Chest Tube Drainage 10 / 10 Left Mid-Axillary Chest 10 / 10 Right Mid-Axillary Chest 0 / 0 Other: Date of Last Bowel Movement 08/15/18 # Bowel Movements 2 Narrative: GENERAL: in NAD, SKIN: Warm and dry. HEAD: Atraumatic. Normocephalic. ENT: No nasal bleeding or discharge. Mucous membranes pink and moist. NECK: Intubated CARDIOVASCULAR: Regular rate and rhythm. RESPIRATORY: Intubated GASTROINTESTINAL: Abdomen soft, non-tender, nondistended. MUSCULOSKELETAL: No gross deformity NEUROLOGICAL: Intubated, stuporous state, not following nonverbal, grimaces mild right gaze preference, no involuntary movements, OU 3 mm sluggishly reactive positive doll's eye with intact oculocephalic reflex, localizes all 4 extremity flexed with the uppers withdraws to the lowers plantarflex her no clonus reflexes depressed further sensory cerebellar gait testing limited secondary mental status PSYCHIATRIC: Intubated, calm - Urinary Catheter Management Indwelling Urethral Catheter Cath placed during this visit: yes Reason for continuing: Hourly intake/output Insertion date: 08/11/18 Insertion time: 12:00 Results - Labs CBC & Chem 7: 08/15/18 05:11 08/15/18 05:11 Laboratory Results - last 24 hr 08/14/18 08/14/18 08/14/18 18:53 20:31 23:33 WBC RBC Hgb Hct MCV MCH MCHC RDW Plt Count MPV APTT Puncture Site Patient Temperature O2 Saturation ABG pH ABG pCO2 ABG pO2 ABG HCO3 ABG O2 Content ABG Base Excess ABG Methemoglobin Parker Test Hemoglobin Carboxyhemoglobin O2 Delivery Device Vent Setting Inspired O2 Critical Value Sodium Potassium Chloride Carbon Dioxide Anion Gap BUN Creatinine Estimated GFR POC Glucose 263 H 234 H 250 H Random Glucose Calcium Phosphorus Magnesium Total Creatine Kinase Troponin I 08/15/18 08/15/18 08/15/18 04:24 05:11 05:11 WBC 7.9 RBC 2.71 L Hgb 7.7 L Hct 23.6 L MCV 87.1 MCH 28.5 MCHC 32.7 RDW 17.1 Plt Count 111 L MPV 9.2 APTT Puncture Site Left radial Patient Temperature 98.6 O2 Saturation 96 ABG pH 7.46 H ABG pCO2 38 ABG pO2 111 ABG HCO3 26 ABG O2 Content 11.0 L ABG Base Excess 2.4 H ABG Methemoglobin 1.2 Parker Test Present Hemoglobin 8.0 L Carboxyhemoglobin 1.3 O2 Delivery Device Ventilator Vent Setting See comments Inspired O2 40 Critical Value No Sodium 138 Potassium 4.1 Chloride 101 Carbon Dioxide 29.6 Anion Gap 7 BUN 83 H Creatinine 2.35 H Estimated GFR 27 L POC Glucose Random Glucose 212 H Calcium 8.3 L Phosphorus 3.6 Magnesium 2.5 Total Creatine Kinase Troponin I 08/15/18 08/15/18 08/15/18 05:11 05:27 12:24 WBC RBC Hgb Hct MCV MCH MCHC RDW Plt Count MPV APTT 59.2 H D Puncture Site Patient Temperature O2 Saturation ABG pH ABG pCO2 ABG pO2 ABG HCO3 ABG O2 Content ABG Base Excess ABG Methemoglobin Parker Test Hemoglobin Carboxyhemoglobin O2 Delivery Device Vent Setting Inspired O2 Critical Value Sodium Potassium Chloride Carbon Dioxide Anion Gap BUN Creatinine Estimated GFR POC Glucose 248 H 234 H Random Glucose Calcium Phosphorus Magnesium Total Creatine Kinase Troponin I 08/15/18 08/15/18 16:37 16:37 WBC RBC Hgb Hct MCV MCH MCHC RDW Plt Count MPV APTT Puncture Site Patient Temperature O2 Saturation ABG pH ABG pCO2 ABG pO2 ABG HCO3 ABG O2 Content ABG Base Excess ABG Methemoglobin Parker Test Hemoglobin Carboxyhemoglobin O2 Delivery Device Vent Setting Inspired O2 Critical Value Sodium Potassium Chloride Carbon Dioxide Anion Gap BUN Creatinine Estimated GFR POC Glucose Random Glucose Calcium Phosphorus Magnesium Total Creatine Kinase Cancelled Troponin I Cancelled Microbiology 08/12/18 08:45 Fluid - Pleural fluid Gram Stain - Final 08/12/18 08:45 Fluid - Pleural fluid Body Fluid Culture - Final No growth in 72 hours (aerobically and anaerobically ) - Imaging Impressions Head CT 08/15/18 09:27 CONCLUSION: 1. No acute hemorrhage or mass effect identified. 2. Focal encephalomalacia in the left frontal lobe. 3. Opacification of the mastoid air cells bilaterally which is new from the prior study consistent with acute mastoiditis. 4. Moderate atrophic change. . Assessment and Plan - Plan RESPIRATORY FAILURE PNEUMONIA PLEURAL EFFUSION ALTERED MENTAL STATUS PLAN VENT SUPPORT WEAN TOLERATED PULM TOILET ANTIBX NEURO FOLLOWING
[2018-08-15 17:06] LABS: Anion Gap 10 meq/L (5-15); Blood Urea Nitrogen 83 mg/dL (7-18); Calcium 8.4 mg/dL (8.5-10.1); Chloride 97 meq/L (98-107); Glomerular Filtration Rate 26 mL/min (>89); Glucose,Random 259 mg/dL (74-106); Magnesium 2.3 mg/dL (1.5-2.5); Phosphorus 4.2 mg/dL (2.5-4.9); Potassium 4.6 meq/L (3.5-5.1); Sodium 135 meq/L (136-145)
[2018-08-15 17:11] LABS: Creatine Kinase 206 U/L (39-308)
[2018-08-15] MEDS: Bumetanide Inj 25 MG/100 ML BAG IV.CONT SCH (17:34)
[2018-08-15] MEDS: Finasteride 5 MG Tablet PO SCH (17:35)
[2018-08-15 19:10] LABS: Amorphous Sediment,Urine Rare /hpf; Bacteria,Urine Rare /hpf; Bilirubin,Urine Negative (Negative); Clarity,Urine Hazy (Clear); Color,Urine Straw (Yellw/Straw); Glucose,Urine (UA) Negative (Negative); Leukocyte Esterase,Urine Small (Negative); Mucus,Urine Few /lpf (Occasional); Nitrite,Urine Negative (Negative); Specific Gravity,Urine 1.006 (1.002-1.035); Squamous Epithelial Cell,Urine 1 /hpf (0-5)
[2018-08-16] MEDS: Oral Hygiene Kit OROPHARYNG SCH ×3 (03:45→17:27)
--- NOTE | 2018-08-16 03:55 | XR ---
EXAM DATE: 08/16/2018 5:00 AM EDT AGE/SEX: 73 years / Male INDICATIONS: Shortness of breath, possible pulmonary disease. CLINICAL DATA: This is the patient's subsequent encounter. Patient reports that signs and symptoms h ave been present for 1 week and indicates a pain score of Nonresponsive. MEDICAL/SURGICAL HISTORY: Diabetes. Gastroesophageal reflux disease. Hypertension. Hyperlipi demia. None. COMPARISON: C, CHEST 1V SINGLE AP, 08/13/2018. . FINDINGS: The ET tube and NG tube are well placed. The lungs demonstrate diffuse mixed interstitial and alveola r consolidation being worse on the right and at the bases. There is silhouetting the hemidiaphragms b ilaterally. Some degree of fusion cannot be excluded. CONCLUSION: Diffuse pulmonary consolidation likely related to edema. These processes are worse at the bases and o n the right. Electronically signed by: Xander Chowdhury MD 08/16/2018 3:53 AM EDT
[2018-08-16 04:54] LABS: Hematocrit 24.9 % (39.0-51.0); Hemoglobin 8.3 gm/dL (13.0-17.0); Mean Corpuscular HGB Conc 33.4 % (32.0-36.0); Mean Corpuscular Hemoglobin 28.9 pg (27.0-34.0); Mean Corpuscular Volume 86.4 fL (80.0-100.0); Mean Platelet Volume 9.5 fL (7.0-11.0); Platelet Count 115 th/mm3 (150-450); Red Blood Count 2.88 mil/mm3 (4.50-5.90); Red Cell Distribution Width 16.9 % (11.6-17.2); White Blood Count 7.7 th/mm3 (4.0-11.0)
[2018-08-16 05:17] LABS: Carbon Dioxide 29.3 meq/L (21.0-32.0); Magnesium 2.4 mg/dL (1.5-2.5); Phosphorus 4.2 mg/dL (2.5-4.9); Potassium 4.2 meq/L (3.5-5.1)
[2018-08-16 05:35] LABS: ABG Base Excess 5.1 mmol/L (-2-2); ABG PCO2 39 mmHg (38-42); ABG PO2 81 mmHG (61-120)
[2018-08-16] MEDS: Gabapentin 300 MG Capsule PO SCH ×3 (06:12→17:27)
[2018-08-16] MEDS: Insulin NovoLOG Aspart Correctional Sugar Inj SQ SCH ×3 (06:12→17:28)
[2018-08-16] MEDS: Heparin Drip 25,000 UNIT/250 ML BAG IV.CONT PRN (06:13)
[2018-08-16] MEDS: amLODIPine 5 MG Tablet PO SCH ×2 (09:06→09:20)
--- NOTE | 2018-08-16 09:07 | P.PNNEU ---
Subjective Subjective Comments: No acute events Active Medications: Active Medications Acetaminophen (Tylenol) 650 mg PO Q6H PRN PRN Reason: Temp > 100.4 Al Hydroxide/Mg Hydroxide (Milk Of Rasheed Olmedo) 30 ml PO Q12H PRN PRN Reason: Mild Constipation Albuterol (Albuterol Neb (Prn)) 2.5 mg NEB Q2HR NEB PRN PRN Reason: DYSPNEA Last Admin: 08/15/18 03:30 Dose: 2.5 mg Amlodipine Besylate (Norvasc) 5 mg PO DAILY [facility] Last Admin: 08/15/18 12:53 Dose: Not Given Artificial Tears (Refresh Tears 0.5% Opth Drops) 1 drop EACH EYE BID [facility] Last Admin: 08/15/18 20:39 Dose: 1 drop Aspirin (Aspirin) 325 mg PO DAILY [facility] Last Admin: 08/15/18 10:38 Dose: 325 mg Atorvastatin Calcium (Lipitor) 20 mg PO HS [facility] Last Admin: 08/15/18 20:38 Dose: 20 mg Bisacodyl (Dulcolax Supp) 10 mg RECTAL DAILY PRN PRN Reason: SEVERE CONSITIPATION Carvedilol (Coreg) 3.125 mg PO BID [facility] Last Admin: 08/15/18 20:37 Dose: Not Given Chlorhexidine Gluconate (Chlorhexidine 2% Cloth) 1 pack TOPICAL PRN PRN PRN Reason: FOR HYGIENIC CARE Chlorhexidine Gluconate (Peridex 0.12% Oral Kit) 15 ml OROPHARYNG BID@0800, 2000 [facility] Last Admin: 08/15/18 20:37 Dose: 15 ml Dextrose (D50w Vial) 50 ml IV.PUSH UNSCH PRN PRN Reason: PER HYPOGLYCEMIA PROTOCOL Duloxetine HCl (Cymbalta) 30 mg PO DAILY [facility] Last Admin: 08/15/18 10:50 Dose: 30 mg Finasteride (Proscar) 5 mg PO DAILY@1800 [facility] Last Admin: 08/15/18 17:35 Dose: Not Given Gabapentin (Neurontin) 300 mg PO Q6HR [facility] Last Admin: 08/16/18 06:12 Dose: Not Given Glucagon (Glucagon Inj) 1 mg OTHER PRN PRN PRN Reason: for Hypoglycemia Protocol Guaifenesin (Mucinex Er) 600 mg PO BID [facility] Last Admin: 08/15/18 20:38 Dose: 600 mg Linezolid (Zyvox 600 Mg Premix) 300 mls @ 300 mls/hr IV.SIG Q12H [facility] Last Admin: 08/16/18 03:44 Dose: 300 mls/hr Cefepime HCl 1,000 mg/ Sodium (Chloride) 100 mls @ 200 mls/hr IV.SIG Q8H [facility] Last Admin: 08/16/18 06:12 Dose: 200 mls/hr Fentanyl (Fentanyl 10 Mcg/Ml Premix Drip) 2,500 mcg in 250 mls @ 5 mls/hr IV.SIG TITRATE PRN; Protocol PRN Reason: Per Protocol Last Titration: 08/15/18 19:00 Dose: Infused Midazolam HCl (Versed Inj) 50 mg in 50 mls @ 2 mls/hr IV.CONT TITRATE PRN; Protocol PRN Reason: Per Protocol Norepinephrine Bitartrate 16 (mg/ Sodium Chloride) 250 mls @ 1.87 mls/hr IV.CONT TITRATE PRN; Protocol PRN Reason: See Protocol Bumetanide (Bumex Inj) 25 mg in 100 mls @ 2 mls/hr IV.CONT .Q24H [facility] Last Infusion: 08/15/18 19:00 Dose: 0.5 mg/hr, 2 mls/hr Heparin Sodium/Dextrose (Heparin/D5w 25,000 U/250 Ml) 25,000 unit in 250 mls @ 0 mls/hr IV.CONT TITRATE PRN; Protocol PRN Reason: Per Protocol Last Admin: 08/16/18 06:13 Dose: 1,800 units/hr, 18 mls/hr Dopamine HCl 800 mg/ Sodium (Chloride) 500 mls @ 17.51 mls/hr IV.CONT TITRATE PRN; Protocol PRN Reason: PER PROTOCOL Last Titration: 08/15/18 19:00 Dose: 1.5 mcg/kg/min, 8.75 mls/hr Insulin Aspart (Novolog Insulin Correctional Sugar Inj) 0 unit SQ Q6HR [facility]; Protocol Last Admin: 08/16/18 06:12 Dose: 7 unit Insulin Detemir (Levemir Inj) 5 unit SQ BID [facility] Last Admin: 08/15/18 20:39 Dose: 5 unit Lactulose (Lactulose Liq) 30 ml PO DAILY PRN PRN Reason: SEVERE CONSITIPATION Lansoprazole (Prevacid Solutab) 30 mg NG/OG DAILY [facility] Last Admin: 08/15/18 10:37 Dose: 30 mg Metolazone (Zaroxolyn) 5 mg PO Q12H [facility] Last Admin: 08/15/18 20:38 Dose: 5 mg Miscellaneous Medication () 1 each OROPHARYNG 0000,0400,1200,1600 [facility] Last Admin: 08/16/18 03:45 Dose: 1 each Ondansetron HCl (Zofran Inj) 4 mg IV.PUSH Q6H PRN PRN Reason: NAUSEA OR VOMITING Last Admin: 08/16/18 00:57 Dose: 4 mg Polyethylene Glycol (Miralax) 17 gm PO BID [facility] Last Admin: 08/15/18 20:38 Dose: Not Given Potassium Chloride (K-Dur) 20 meq PO BID [facility] Last Admin: 08/15/18 20:38 Dose: 20 meq Senna/Docusate Sodium (Isabella-Colace) 1 tab PO BID [facility] Last Admin: 08/15/18 20:38 Dose: 1 tab Sennosides (Senokot) 17.2 mg PO Q12H PRN PRN Reason: Moderate Constipation Sodium Chloride (Ns Flush) 2 ml IV.FLUSH BID [facility] Last Admin: 08/15/18 20:39 Dose: 2 ml Sodium Chloride (Ns Flush) 2 ml IV.FLUSH PRN PRN PRN Reason: FLUSH AFTER USING IV ACCESS Tamsulosin HCl (Flomax) 0.4 mg PO BID [facility] Last Admin: 08/15/18 20:37 Dose: 0.4 mg Terbutaline Sulfate (Brethine Inj) 1 mg SQ UNSCH PRN PRN Reason: For Extravasation Allergies/Adverse Reactions: Allergies Allergy/AdvReac Type Severity Reaction Status Date / Time No Known Allergies Allergy Verified 08/06/18 01:24 Review of Systems unobtainable due to endotracheal tube, unobtainable due to mental status Physical Exam Vital signs: Vital Signs 08/15/18 09:59 08/15/18 10:00 08/15/18 11:49 Temperature Pulse Rate 53 L Respiratory Rate 18 Blood Pressure Pulse Oximetry 100 98 08/15/18 12:00 08/15/18 14:00 08/15/18 16:00 Temperature 98.7 F 97.8 F Pulse Rate 43 L 80 76 Respiratory Rate 18 18 Blood Pressure 108/54 L 121/57 L Pulse Oximetry 97 90 L 08/15/18 16:15 08/15/18 16:22 08/15/18 16:28 Temperature Pulse Rate 77 79 Respiratory Rate 18 0 L 18 Blood Pressure 119/56 L 115/56 L Pulse Oximetry 90 L 90 L 92 L 08/15/18 16:30 08/15/18 16:45 08/15/18 17:00 Temperature Pulse Rate 66 59 L 52 L Respiratory Rate 18 18 18 Blood Pressure 103/51 L 113/56 L 116/55 L Pulse Oximetry 90 L 96 99 08/15/18 17:15 08/15/18 17:30 08/15/18 17:45 Temperature Pulse Rate 47 L 46 L 52 L Respiratory Rate 18 18 18 Blood Pressure 113/56 L 117/58 L 117/59 L Pulse Oximetry 100 100 99 08/15/18 18:00 08/15/18 18:15 08/15/18 18:30 Temperature Pulse Rate 54 L 53 L 53 L Respiratory Rate 18 18 18 Blood Pressure 141/63 H 132/65 119/58 L Pulse Oximetry 97 97 97 08/15/18 18:45 08/15/18 19:00 08/15/18 19:15 Temperature Pulse Rate 60 59 L 63 Respiratory Rate 18 18 18 Blood Pressure 127/55 L 129/61 125/60 Pulse Oximetry 97 98 98 08/15/18 19:27 08/15/18 19:30 08/15/18 19:45 Temperature Pulse Rate 64 68 Respiratory Rate 18 19 18 Blood Pressure 133/62 109/54 L Pulse Oximetry 99 99 98 08/15/18 20:00 08/15/18 20:15 08/15/18 20:30 Temperature 97.6 F Pulse Rate 69 66 64 Respiratory Rate 19 18 18 Blood Pressure 136/62 126/58 L 129/60 Pulse Oximetry 99 99 99 08/15/18 20:45 08/15/18 21:00 08/15/18 21:15 Temperature Pulse Rate 69 62 59 L Respiratory Rate 19 18 18 Blood Pressure 132/58 L 131/63 118/58 L Pulse Oximetry 99 99 98 08/15/18 21:30 08/15/18 21:45 08/15/18 22:00 Temperature Pulse Rate 67 59 L 63 Respiratory Rate 19 18 18 Blood Pressure 128/66 129/59 L 125/57 L Pulse Oximetry 100 97 98 08/15/18 22:15 08/15/18 22:30 08/15/18 22:45 Temperature Pulse Rate 58 L 62 58 L Respiratory Rate 19 18 18 Blood Pressure 142/61 H 123/59 L 121/55 L Pulse Oximetry 100 98 99 08/15/18 23:00 08/15/18 23:15 08/15/18 23:30 Temperature Pulse Rate 63 65 54 L Respiratory Rate 18 18 18 Blood Pressure 127/60 122/56 L 133/62 Pulse Oximetry 100 100 99 08/15/18 23:45 08/16/18 00:00 08/16/18 00:16 Temperature 98 F Pulse Rate 59 L 62 70 Respiratory Rate 18 18 18 Blood Pressure 140/63 144/64 H 128/60 Pulse Oximetry 100 100 99 08/16/18 01:11 08/16/18 01:15 08/16/18 01:30 Temperature Pulse Rate 61 66 Respiratory Rate 18 18 18 Blood Pressure 131/61 124/59 L Pulse Oximetry 99 99 99 08/16/18 01:45 08/16/18 02:00 08/16/18 02:15 Temperature Pulse Rate 63 71 63 Respiratory Rate 18 22 18 Blood Pressure 114/54 L 116/56 L 121/58 L Pulse Oximetry 98 99 99 08/16/18 02:30 08/16/18 02:45 08/16/18 03:00 Temperature Pulse Rate 67 69 82 Respiratory Rate 18 18 30 H Blood Pressure 128/62 120/57 L 125/57 L Pulse Oximetry 99 99 100 08/16/18 03:15 08/16/18 03:30 08/16/18 03:45 Temperature Pulse Rate 61 64 59 L Respiratory Rate 18 18 18 Blood Pressure 118/56 L 125/59 L 122/56 L Pulse Oximetry 96 98 99 08/16/18 04:00 08/16/18 04:01 08/16/18 04:15 Temperature 98.1 F Pulse Rate 56 L 67 Respiratory Rate 18 18 19 Blood Pressure 120/56 L 126/63 Pulse Oximetry 100 100 99 08/16/18 04:30 08/16/18 04:45 08/16/18 05:00 Temperature Pulse Rate 63 63 79 Respiratory Rate 18 18 26 H Blood Pressure 125/60 123/58 L 170/67 H Pulse Oximetry 99 100 100 10/22/18 05:15 08/16/18 05:30 08/16/18 05:45 Temperature Pulse Rate 71 62 65 Respiratory Rate 24 18 18 Blood Pressure 118/59 L 126/58 L 135/64 Pulse Oximetry 97 98 99 08/16/18 06:00 08/16/18 06:15 08/16/18 06:30 Temperature Pulse Rate 66 66 66 Respiratory Rate 19 18 19 Blood Pressure 135/58 L 136/61 135/63 Pulse Oximetry 99 99 98 08/16/18 06:45 08/16/18 07:00 08/16/18 07:15 Temperature Pulse Rate 66 66 66 Respiratory Rate 21 19 19 Blood Pressure 123/58 L 118/56 L 120/56 L Pulse Oximetry 98 97 99 08/16/18 07:48 Temperature Pulse Rate Respiratory Rate 18 Blood Pressure Pulse Oximetry 99 Intake & Output 08/15/18 08/16/18 08/16/18 18:59 06:59 18:59 Intake Total 1130 / 1130 390 / 390 Output Total 1450 / 1450 3275 / 3275 Balance -320 / -320 -2885 / -2885 Weight 159 kg Intake: IV 1050 / 1050 350 / 350 Bumex Inj 25 mg In 100 ml @ 0.5 100 / 100 MG/HR 2 mls/hr IV.CONT .Q24H [facility] Rx#:[id number] Intropin Inj 800 MG In NS Inj 50 / 50 480 ML @ 3 MCG/KG/MIN 17.51 mls /hr IV.CONT TITRATE PRN Rx#: [id number] Heparin/D5W 25,000 U/250 mL 25, 250 / 250 250 / 250 000 unit In 250 ml @ Per Protocol IV.CONT TITRATE PRN Rx #:[id number] Maxipime Inj 1,000 MG In NS Inj 200 / 200 100 / 100 100 ML @ 200 mls/hr IV.SIG Q8H [facility] Rx#:[id number] Zyvox 600 mg Premix 300 ML @ 300 / 300 300 mls/hr IV.SIG Q12H [facility] Rx#: [id number] fentaNYL 10 mcg/mL Premix Drip 150 / 150 0 / 0 2,500 mcg In 250 ml @ 50 MCG/HR 5 mls/hr IV.SIG TITRATE PRN Rx #:[id number] Tube Feeding 20 / 20 0 / 0 Tube Irrigant 60 / 60 40 / 40 Output: Urine Amount (Catheter) 1450 / 1450 3075 / 3075 Indwelling Urethral Catheter 1450 / 1450 3075 / 3075 Gastric Drainage 200 / 200 Orogastric Tube 200 / 200 Other: Date of Last Bowel Movement 08/15/18 08/15/18 # Bowel Movements 0 # Emeses 1 Narrative: GENERAL: in NAD, SKIN: Warm and dry. HEAD: Atraumatic. Normocephalic. ENT: No nasal bleeding or discharge. Mucous membranes pink and moist. NECK: Intubated CARDIOVASCULAR: Regular rate and rhythm. RESPIRATORY: Intubated GASTROINTESTINAL: Abdomen soft, non-tender, nondistended. MUSCULOSKELETAL: No gross deformity NEUROLOGICAL: Intubated, stuporous state, not following nonverbal, grimaces mild right gaze preference, no involuntary movements, OU 3 mm sluggishly reactive positive doll's eye with intact oculocephalic reflex, localizes all 4 extremity flexed with the uppers withdraws to the lowers plantarflex her no clonus reflexes depressed further sensory cerebellar gait testing limited secondary mental status PSYCHIATRIC: Intubated, calm - Constitutional no acute distress - Urinary Catheter Management Indwelling Urethral Catheter Cath placed during this visit: yes Reason for continuing: Hourly intake/output Insertion date: 08/11/18 Insertion time: 12:00 Objective Laboratory Results - last 24 hr 08/15/18 08/15/18 08/15/18 12:24 16:37 16:37 WBC RBC Hgb Hct MCV MCH MCHC RDW Plt Count MPV APTT Puncture Site Patient Temperature O2 Saturation ABG pH ABG pCO2 ABG pO2 ABG HCO3 ABG O2 Content ABG Base Excess ABG Methemoglobin Parker Test Hemoglobin Carboxyhemoglobin O2 Delivery Device Vent Setting Inspired O2 Critical Value Sodium 135 L Potassium 4.6 Chloride 97 L Carbon Dioxide 28.0 Anion Gap 10 BUN 83 H Creatinine 2.42 H Estimated GFR 26 L POC Glucose 234 H Random Glucose 259 H Calcium 8.4 L Phosphorus 4.2 Magnesium 2.3 Total Creatine Kinase 206 Cancelled Troponin I Less than 0.02 L Urine Color Urine Clarity Urine pH Ur Specific Jensen Urine Protein Urine Glucose (UA) Urine Ketones Urine Occult Blood Urine Nitrate Urine Bilirubin Urine Urobilinogen Ur Leukocyte Esterase Urine RBC Urine WBC Ur Squamous Epith Cells Amorphous Sediment Urine Bacteria Urine Mucus Micro UA Comment Ur Microscopic Review Urine Culture Comments 08/15/18 08/15/18 08/15/18 16:37 17:15 17:50 WBC RBC Hgb Hct MCV MCH MCHC RDW Plt Count MPV APTT Puncture Site Patient Temperature O2 Saturation ABG pH ABG pCO2 ABG pO2 ABG HCO3 ABG O2 Content ABG Base Excess ABG Methemoglobin Parker Test Hemoglobin Carboxyhemoglobin O2 Delivery Device Vent Setting Inspired O2 Critical Value Sodium Potassium Chloride Carbon Dioxide Anion Gap BUN Creatinine Estimated GFR POC Glucose 256 H Random Glucose Calcium Phosphorus Magnesium Total Creatine Kinase Troponin I Cancelled Urine Color Straw Urine Clarity Hazy H Urine pH 5.0 Ur Specific Jensen 1.006 Urine Protein Negative Urine Glucose (UA) Negative Urine Ketones Negative Urine Occult Blood Moderate H Urine Nitrate Negative Urine Bilirubin Negative Urine Urobilinogen Less than 2 Ur Leukocyte Esterase Small H Urine RBC 1 Urine WBC 32 H Ur Squamous Epith Cells 1 Amorphous Sediment Rare H Urine Bacteria Rare H Urine Mucus Few H Micro UA Comment Culture indicated Ur Microscopic Review Not Reportable Urine Culture Comments Culture indicated 08/15/18 08/15/18 08/16/18 20:36 23:51 03:30 WBC RBC Hgb Hct MCV MCH MCHC RDW Plt Count MPV APTT 51.2 H Puncture Site Patient Temperature O2 Saturation ABG pH ABG pCO2 ABG pO2 ABG HCO3 ABG O2 Content ABG Base Excess ABG Methemoglobin Parker Test Hemoglobin Carboxyhemoglobin O2 Delivery Device Vent Setting Inspired O2 Critical Value Sodium Potassium Chloride Carbon Dioxide Anion Gap BUN Creatinine Estimated GFR POC Glucose 261 H 252 H Random Glucose Calcium Phosphorus Magnesium Total Creatine Kinase Troponin I Urine Color Urine Clarity Urine pH Ur Specific Jensen Urine Protein Urine Glucose (UA) Urine Ketones Urine Occult Blood Urine Nitrate Urine Bilirubin Urine Urobilinogen Ur Leukocyte Esterase Urine RBC Urine WBC Ur Squamous Epith Cells Amorphous Sediment Urine Bacteria Urine Mucus Micro UA Comment Ur Microscopic Review Urine Culture Comments 08/16/18 08/16/18 08/16/18 03:30 03:30 05:19 WBC 7.7 RBC 2.88 L Hgb 8.3 L Hct 24.9 L MCV 86.4 MCH 28.9 MCHC 33.4 RDW 16.9 Plt Count 115 L MPV 9.5 APTT Puncture Site Left radial Patient Temperature 98.6 O2 Saturation 94 ABG pH 7.48 H ABG pCO2 39 ABG pO2 81 ABG HCO3 29 H ABG O2 Content 11.1 L ABG Base Excess 5.1 H ABG Methemoglobin 1.7 Parker Test Present Hemoglobin 8.3 L Carboxyhemoglobin 1.3 O2 Delivery Device Vent Vent Setting Prvc/ac Inspired O2 40 Critical Value No Sodium 136 Potassium 4.2 Chloride 97 L Carbon Dioxide 29.3 Anion Gap 10 BUN 85 H Creatinine 2.32 H Estimated GFR 28 L POC Glucose Random Glucose 197 H Calcium 9.0 Phosphorus 4.2 Magnesium 2.4 Total Creatine Kinase Troponin I Urine Color Urine Clarity Urine pH Ur Specific Jensen Urine Protein Urine Glucose (UA) Urine Ketones Urine Occult Blood Urine Nitrate Urine Bilirubin Urine Urobilinogen Ur Leukocyte Esterase Urine RBC Urine WBC Ur Squamous Epith Cells Amorphous Sediment Urine Bacteria Urine Mucus Micro UA Comment Ur Microscopic Review Urine Culture Comments 08/16/18 06:00 WBC RBC Hgb Hct MCV MCH MCHC RDW Plt Count MPV APTT Puncture Site Patient Temperature O2 Saturation ABG pH ABG pCO2 ABG pO2 ABG HCO3 ABG O2 Content ABG Base Excess ABG Methemoglobin Parker Test Hemoglobin Carboxyhemoglobin O2 Delivery Device Vent Setting Inspired O2 Critical Value Sodium Potassium Chloride Carbon Dioxide Anion Gap BUN Creatinine Estimated GFR POC Glucose 252 H Random Glucose Calcium Phosphorus Magnesium Total Creatine Kinase Troponin I Urine Color Urine Clarity Urine pH Ur Specific Jensen Urine Protein Urine Glucose (UA) Urine Ketones Urine Occult Blood Urine Nitrate Urine Bilirubin Urine Urobilinogen Ur Leukocyte Esterase Urine RBC Urine WBC Ur Squamous Epith Cells Amorphous Sediment Urine Bacteria Urine Mucus Micro UA Comment Ur Microscopic Review Urine Culture Comments Microbiology 08/12/18 08:45 Gram Stain - Final Fluid - Pleural fluid Body Fluid Culture - Final No growth in 72 hours (aerobically and anaerobically) Review/Management - Diagnosis (1) Chronic right arterial ischemic stroke, MCA (middle cerebral artery) Code(s): I69.30 - Unspecified sequelae of cerebral infarction Status: Acute Current Visit: Yes (2) Osteomyelitis of ankle and foot Code(s): M86.9 - Osteomyelitis, unspecified Status: Acute Current Visit: Yes (3) Diastolic heart failure Code(s): I50.30 - Unspecified diastolic (congestive) heart failure Status: Acute Current Visit: Yes (4) Respiratory failure Code(s): J96.90 - Respiratory failure, unspecified, unspecified whether with hypoxia or hypercapnia Status: Acute Current Visit: Yes (5) Kidney disease Code(s): N28.9 - Disorder of kidney and ureter, unspecified Status: Acute Current Visit: No - Review/Management Plan: Had a CHIKA which showed EF 35-40%, 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 Currently on heparin drip. Is at risk for shower embolic events However suspect he has a metabolic encephalopathy at present related to renal disease, respiratory failure, cardiac disease Exclude any seizure activity; at high risk with previous stroke and metabolic abnormalities Recommendation EEG; pending MRI brain noncontrast; pending Follow exam
[2018-08-16] MEDS: guaiFENesin 600 MG ER Tablet PO SCH ×2 (09:16→21:16)
[2018-08-16] MEDS: Aspirin 325 MG Tablet PO SCH (09:17)
[2018-08-16] MEDS: Chlorhexidine 0.12% Oral Kit 15 ML UDC OROPHARYNG SCH ×2 (09:17→21:18)
[2018-08-16] MEDS: Polyethylene Glycol 3350 17 GM Packet PO SCH ×2 (09:19→21:16)
[2018-08-16] MEDS: Insulin Detemir Inj 1,000 UNIT/10 ML Vial SQ SCH ×2 (09:19→21:19)
[2018-08-16] MEDS: Sodium Chloride 0.9% 2 ML Flush BID IV.FLUSH SCH ×2 (09:20→21:20)
[2018-08-16] MEDS: Senna/Docusate Sodium 8.6/50 MG Tablet PO SCH ×2 (09:20→21:16)
[2018-08-16] MEDS: metOLazone 5 MG Tablet PO SCH ×2 (09:21→21:16)
[2018-08-16] MEDS: Carboxymethylcellulose 0.5% Opth Drops 15 ML Bottle EACH EYE SCH ×2 (09:21→21:20)
--- NOTE | 2018-08-16 10:36 | P.PNNP ---
Subjective Interval history: patient was seen and examined in the ICU. Discussed with RN and patient's sister. He has had very good response to Bumex drip. Creatinine is slightly lower. On the ventilator. Physical Exam Vital signs: Vital Signs 08/15/18 11:49 08/15/18 12:00 08/15/18 14:00 Temperature 98.7 F Pulse Rate 43 L 80 Respiratory Rate 18 18 Blood Pressure 108/54 L Pulse Oximetry 98 97 08/15/18 16:00 08/15/18 16:15 08/15/18 16:22 Temperature 97.8 F Pulse Rate 76 77 79 Respiratory Rate 18 18 0 L Blood Pressure 121/57 L 119/56 L 115/56 L Pulse Oximetry 90 L 90 L 90 L 08/15/18 16:28 08/15/18 16:30 08/15/18 16:45 Temperature Pulse Rate 66 59 L Respiratory Rate 18 18 18 Blood Pressure 103/51 L 113/56 L Pulse Oximetry 92 L 90 L 96 08/15/18 17:00 08/15/18 17:15 08/15/18 17:30 Temperature Pulse Rate 52 L 47 L 46 L Respiratory Rate 18 18 18 Blood Pressure 116/55 L 113/56 L 117/58 L Pulse Oximetry 99 100 100 08/15/18 17:45 08/15/18 18:00 08/15/18 18:15 Temperature Pulse Rate 52 L 54 L 53 L Respiratory Rate 18 18 18 Blood Pressure 117/59 L 141/63 H 132/65 Pulse Oximetry 99 97 97 08/15/18 18:30 08/15/18 18:45 08/15/18 19:00 Temperature Pulse Rate 53 L 60 59 L Respiratory Rate 18 18 18 Blood Pressure 119/58 L 127/55 L 129/61 Pulse Oximetry 97 97 98 08/15/18 19:15 08/15/18 19:27 08/15/18 19:30 Temperature Pulse Rate 63 64 Respiratory Rate 18 18 19 Blood Pressure 125/60 133/62 Pulse Oximetry 98 99 99 08/15/18 19:45 08/15/18 20:00 08/15/18 20:15 Temperature 97.6 F Pulse Rate 68 69 66 Respiratory Rate 18 19 18 Blood Pressure 109/54 L 136/62 126/58 L Pulse Oximetry 98 99 99 08/15/18 20:30 08/15/18 20:45 10/21/18 21:00 Temperature Pulse Rate 64 69 62 Respiratory Rate 18 19 18 Blood Pressure 129/60 132/58 L 131/63 Pulse Oximetry 99 99 99 08/15/18 21:15 08/15/18 21:30 08/15/18 21:45 Temperature Pulse Rate 59 L 67 59 L Respiratory Rate 18 19 18 Blood Pressure 118/58 L 128/66 129/59 L Pulse Oximetry 98 100 97 08/15/18 22:00 08/15/18 22:15 08/15/18 22:30 Temperature Pulse Rate 63 58 L 62 Respiratory Rate 18 19 18 Blood Pressure 125/57 L 142/61 H 123/59 L Pulse Oximetry 98 100 98 08/15/18 22:45 08/15/18 23:00 08/15/18 23:15 Temperature Pulse Rate 58 L 63 65 Respiratory Rate 18 18 18 Blood Pressure 121/55 L 127/60 122/56 L Pulse Oximetry 99 100 100 08/15/18 23:30 08/15/18 23:45 08/16/18 00:00 Temperature 98 F Pulse Rate 54 L 59 L 62 Respiratory Rate 18 18 18 Blood Pressure 133/62 140/63 144/64 H Pulse Oximetry 99 100 100 08/16/18 00:16 08/16/18 01:11 08/16/18 01:15 Temperature Pulse Rate 70 61 Respiratory Rate 18 18 18 Blood Pressure 128/60 131/61 Pulse Oximetry 99 99 99 08/16/18 01:30 08/16/18 01:45 08/16/18 02:00 Temperature Pulse Rate 66 63 71 Respiratory Rate 18 18 22 Blood Pressure 124/59 L 114/54 L 116/56 L Pulse Oximetry 99 98 99 08/16/18 02:15 08/16/18 02:30 08/16/18 02:45 Temperature Pulse Rate 63 67 69 Respiratory Rate 18 18 18 Blood Pressure 121/58 L 128/62 120/57 L Pulse Oximetry 99 99 99 08/16/18 03:00 08/16/18 03:15 08/16/18 03:30 Temperature Pulse Rate 82 61 64 Respiratory Rate 30 H 18 18 Blood Pressure 125/57 L 118/56 L 125/59 L Pulse Oximetry 100 96 98 08/16/18 03:45 08/16/18 04:00 08/16/18 04:01 Temperature 98.1 F Pulse Rate 59 L 56 L Respiratory Rate 18 18 18 Blood Pressure 122/56 L 120/56 L Pulse Oximetry 99 100 100 08/16/18 04:15 08/16/18 04:30 08/16/18 04:45 Temperature Pulse Rate 67 63 63 Respiratory Rate 19 18 18 Blood Pressure 126/63 125/60 123/58 L Pulse Oximetry 99 99 100 08/16/18 05:00 08/16/18 05:15 08/16/18 05:30 Temperature Pulse Rate 79 71 62 Respiratory Rate 26 H 24 18 Blood Pressure 170/67 H 118/59 L 126/58 L Pulse Oximetry 100 97 98 08/16/18 05:45 08/16/18 06:00 08/16/18 06:15 Temperature Pulse Rate 65 66 66 Respiratory Rate 18 19 18 Blood Pressure 135/64 135/58 L 136/61 Pulse Oximetry 99 99 99 08/16/18 06:30 08/16/18 06:45 08/16/18 07:00 Temperature Pulse Rate 66 66 66 Respiratory Rate 19 21 19 Blood Pressure 135/63 123/58 L 118/56 L Pulse Oximetry 98 98 97 08/16/18 07:15 08/16/18 07:48 08/16/18 08:00 Temperature 98.5 F Pulse Rate 66 69 Respiratory Rate 19 18 19 Blood Pressure 120/56 L 117/59 L Pulse Oximetry 99 99 99 Intake & Output 08/15/18 08/16/18 08/16/18 18:59 06:59 18:59 Intake Total 1130 / 1130 390 / 390 Output Total 1450 / 1450 3275 / 3275 Balance -320 / -320 -2885 / -2885 Weight 159 kg Intake: IV 1050 / 1050 350 / 350 Bumex Inj 25 mg In 100 ml @ 0.5 100 / 100 MG/HR 2 mls/hr IV.CONT .Q24H [facility] Rx#:[id number] Intropin Inj 800 MG In NS Inj 50 / 50 480 ML @ 3 MCG/KG/MIN 17.51 mls /hr IV.CONT TITRATE PRN Rx#: [id number] Heparin/D5W 25,000 U/250 mL 25, 250 / 250 250 / 250 000 unit In 250 ml @ Per Protocol IV.CONT TITRATE PRN Rx #:[id number] Maxipime Inj 1,000 MG In NS Inj 200 / 200 100 / 100 100 ML @ 200 mls/hr IV.SIG Q8H [facility] Rx#:[id number] Zyvox 600 mg Premix 300 ML @ 300 / 300 300 mls/hr IV.SIG Q12H [facility] Rx#: [id number] fentaNYL 10 mcg/mL Premix Drip 150 / 150 0 / 0 2,500 mcg In 250 ml @ 50 MCG/HR 5 mls/hr IV.SIG TITRATE PRN Rx #:[id number] Tube Feeding 20 / 20 0 / 0 Tube Irrigant 60 / 60 40 / 40 Output: Urine Amount (Catheter) 1450 / 1450 3075 / 3075 Indwelling Urethral Catheter 1450 / 1450 3075 / 3075 Gastric Drainage 200 / 200 Orogastric Tube 200 / 200 Other: Date of Last Bowel Movement 08/15/18 08/15/18 # Bowel Movements 0 # Emeses 1 Narrative: GENERAL: in NAD, SKIN: Warm and dry. HEAD: Atraumatic. Normocephalic. ENT: No nasal bleeding or discharge. Mucous membranes pink and moist. NECK: Intubated CARDIOVASCULAR: Regular rate and rhythm. RESPIRATORY: Intubated GASTROINTESTINAL: Abdomen soft, non-tender, nondistended. MUSCULOSKELETAL: No gross deformity NEUROLOGICAL: Intubated, stuporous state, not following nonverbal, grimaces mild right gaze preference, no involuntary movements, OU 3 mm sluggishly reactive positive doll's eye with intact oculocephalic reflex, localizes all 4 extremity flexed with the uppers withdraws to the lowers plantarflex her no clonus reflexes depressed further sensory cerebellar gait testing limited secondary mental status PSYCHIATRIC: Intubated, calm - Constitutional Comments: on the ventilator. Unresponsive. - Routine HEENT Exam Head: Present: normocephalic, atraumatic - Routine Neck Exam Absent: carotid bruit, lymphadenopathy, thyromegaly - Routine Respiratory Exam Present: CTA bilaterally Comments: vented breath sounds bilaterally. Bilateral chest tubes - Routine Cardiovascular Exam Present: RRR, S1, S2 - Routine Abdominal Exam Present: soft - Routine Extremities Exam Present: edema - Routine Neurological Exam sedated, unresponsive. - Urinary Catheter Management Indwelling Urethral Catheter Cath placed during this visit: yes Reason for continuing: Hourly intake/output Insertion date: 08/11/18 Insertion time: 12:00 Assessment and Plan - Assessment (1) Acute kidney injury Code(s): N17.9 - Acute kidney failure, unspecified Status: Acute Plan: Responding to Bumex drip. No need for dialysis today. Avoid nephrotoxic agents. Monitor urine output and renal function. (2) Respiratory failure Code(s): J96.90 - Respiratory failure, unspecified, unspecified whether with hypoxia or hypercapnia Status: Acute Plan: Vent support. Antibiotics. bilateral chest tubes. On heparin for anticoagulation as CHIKA revealed possible left atrial appendage thrombus. To have MRI of the brain today
--- NOTE | 2018-08-16 11:30 | MR ---
EXAM DATE: 08/16/2018 8:51 AM EDT AGE/SEX: 73 years / Male INDICATIONS: CVA. CLINICAL DATA: This is the patient's initial encounter. Patient reports that signs and symptoms have been present for 4 - 6 days and indicates a pain score of Nonresponsive. MEDICAL/SURGICAL HISTORY: Diabetes mellitus type II. Stroke. Gastroesophageal reflux disease. Coronary artery stent. COMPARISON: [facility] – [place], CT HEAD W/O CONTRAST, 08/15/2018. . TECHNIQUE: Multiplanar, multisequence examination of the brain was performed without contrast. FINDINGS: Cerebrum: Redemonstration of focal encephalomalacia in the left frontal mid convexities. Moderate dif fuse cerebral atrophy. The ventricles are normal for degree of atrophy. No evidence of midline shift , mass lesion, hemorrhage or acute infarction. No extraaxial fluid collections are seen. The pituit mark gland and suprasellar cistern are normal in configuration. White Matter: Mild periventricular and focal deep white matter T2 prolongation. Posterior Fossa: The cerebellum and brainstem are intact. The 4th ventricle is midline. The cerebel lopontine angle is unremarkable. The cerebellar tonsils are normal in position. Diffusion Imaging: No focal areas of restricted diffusion are seen. No evidence of acute infarction . Extracranial: The visualized portions of the orbits and paranasal sinuses are unremarkable. CONCLUSION: 1. Remote left frontal mid convexity infarct. 2. Senescent changes with mild periventricular ischemic white matter demyelination. No acute abnorma lity. Specifically, no acute infarction or hemorrhage. Electronically signed by: Philip Wilder MD 08/16/2018 11:28 AM EDT
--- NOTE | 2018-08-16 12:22 | P.PNCA ---
Subjective Interval history: No events overnight Yesterday had some mild bradycardia, started on Dopamine which led to wide complex tachycardia for 7-8 beats No further episodes Medications and Allergies Active Medications: Active Medications Acetaminophen (Tylenol) 650 mg PO Q6H PRN PRN Reason: Temp > 100.4 Al Hydroxide/Mg Hydroxide (Milk Of Magnesia Liq) 30 ml PO Q12H PRN PRN Reason: Mild Constipation Albuterol (Albuterol Neb (Prn)) 2.5 mg NEB Q2HR NEB PRN PRN Reason: DYSPNEA Last Admin: 08/15/18 03:30 Dose: 2.5 mg Amlodipine Besylate (Norvasc) 5 mg PO DAILY [facility] Last Admin: 08/16/18 09:20 Dose: Not Given Artificial Tears (Refresh Tears 0.5% Opth Drops) 1 drop EACH EYE BID [facility] Last Admin: 08/16/18 09:21 Dose: 1 drop Aspirin (Aspirin) 325 mg PO DAILY [facility] Last Admin: 08/16/18 09:17 Dose: 325 mg Atorvastatin Calcium (Lipitor) 20 mg PO HS [facility] Last Admin: 08/15/18 20:38 Dose: 20 mg Bisacodyl (Dulcolax Supp) 10 mg RECTAL DAILY PRN PRN Reason: SEVERE CONSITIPATION Carvedilol (Coreg) 3.125 mg PO BID [facility] Last Admin: 08/16/18 09:21 Dose: Not Given Chlorhexidine Gluconate (Chlorhexidine 2% Cloth) 1 pack TOPICAL PRN PRN PRN Reason: FOR HYGIENIC CARE Chlorhexidine Gluconate (Peridex 0.12% Oral Kit) 15 ml OROPHARYNG BID@0800, 2000 [facility] Last Admin: 08/16/18 09:17 Dose: 15 ml Dextrose (D50w Vial) 50 ml IV.PUSH UNSCH PRN PRN Reason: PER HYPOGLYCEMIA PROTOCOL Duloxetine HCl (Cymbalta) 30 mg PO DAILY [facility] Last Admin: 08/16/18 09:16 Dose: 30 mg Finasteride (Proscar) 5 mg PO DAILY@1800 [facility] Last Admin: 08/15/18 17:35 Dose: Not Given Gabapentin (Neurontin) 300 mg PO Q6HR [facility] Last Admin: 08/16/18 06:12 Dose: Not Given Glucagon (Glucagon Inj) 1 mg OTHER PRN PRN PRN Reason: for Hypoglycemia Protocol Guaifenesin (Mucinex Er) 600 mg PO BID [facility] Last Admin: 08/16/18 09:16 Dose: 600 mg Linezolid (Zyvox 600 Mg Premix) 300 mls @ 300 mls/hr IV.SIG Q12H [facility] Last Admin: 08/16/18 03:44 Dose: 300 mls/hr Cefepime HCl 1,000 mg/ Sodium (Chloride) 100 mls @ 200 mls/hr IV.SIG Q8H [facility] Last Admin: 08/16/18 06:12 Dose: 200 mls/hr Fentanyl (Fentanyl 10 Mcg/Ml Premix Drip) 2,500 mcg in 250 mls @ 5 mls/hr IV.SIG TITRATE PRN; Protocol PRN Reason: Per Protocol Last Titration: 08/15/18 19:00 Dose: Infused Midazolam HCl (Versed Inj) 50 mg in 50 mls @ 2 mls/hr IV.CONT TITRATE PRN; Protocol PRN Reason: Per Protocol Norepinephrine Bitartrate 16 (mg/ Sodium Chloride) 250 mls @ 1.87 mls/hr IV.CONT TITRATE PRN; Protocol PRN Reason: See Protocol Bumetanide (Bumex Inj) 25 mg in 100 mls @ 2 mls/hr IV.CONT .Q24H [facility] Last Infusion: 08/15/18 19:00 Dose: 0.5 mg/hr, 2 mls/hr Heparin Sodium/Dextrose (Heparin/D5w 25,000 U/250 Ml) 25,000 unit in 250 mls @ 0 mls/hr IV.CONT TITRATE PRN; Protocol PRN Reason: Per Protocol Last Admin: 08/16/18 06:13 Dose: 1,800 units/hr, 18 mls/hr Dopamine HCl 800 mg/ Sodium (Chloride) 500 mls @ 17.51 mls/hr IV.CONT TITRATE PRN; Protocol PRN Reason: PER PROTOCOL Last Titration: 08/15/18 19:00 Dose: 1.5 mcg/kg/min, 8.75 mls/hr Insulin Aspart (Novolog Insulin Correctional Sugar Inj) 0 unit SQ Q6HR [facility]; Protocol Last Admin: 08/16/18 06:12 Dose: 7 unit Insulin Detemir (Levemir Inj) 5 unit SQ BID [facility] Last Admin: 08/16/18 09:19 Dose: 5 unit Lactulose (Lactulose Liq) 30 ml PO DAILY PRN PRN Reason: SEVERE CONSITIPATION Lansoprazole (Prevacid Solutab) 30 mg NG/OG DAILY [facility] Last Admin: 08/16/18 09:20 Dose: 30 mg Metolazone (Zaroxolyn) 5 mg PO Q12H [facility] Last Admin: 08/16/18 09:21 Dose: 5 mg Miscellaneous Medication () 1 each OROPHARYNG 0000,0400,1200,1600 [facility] Last Admin: 08/16/18 03:45 Dose: 1 each Ondansetron HCl (Zofran Inj) 4 mg IV.PUSH Q6H PRN PRN Reason: NAUSEA OR VOMITING Last Admin: 08/16/18 00:57 Dose: 4 mg Polyethylene Glycol (Miralax) 17 gm PO BID [facility] Last Admin: 08/16/18 09:19 Dose: 17 gm Potassium Chloride (K-Dur) 20 meq PO BID [facility] Last Admin: 08/16/18 09:20 Dose: 20 meq Senna/Docusate Sodium (Isabella-Colace) 1 tab PO BID [facility] Last Admin: 08/16/18 09:20 Dose: 1 tab Sennosides (Senokot) 17.2 mg PO Q12H PRN PRN Reason: Moderate Constipation Sodium Chloride (Ns Flush) 2 ml IV.FLUSH BID [facility] Last Admin: 08/16/18 09:20 Dose: 2 ml Sodium Chloride (Ns Flush) 2 ml IV.FLUSH PRN PRN PRN Reason: FLUSH AFTER USING IV ACCESS Tamsulosin HCl (Flomax) 0.4 mg PO BID [facility] Last Admin: 08/16/18 09:19 Dose: 0.4 mg Terbutaline Sulfate (Brethine Inj) 1 mg SQ UNSCH PRN PRN Reason: For Extravasation Allergies Allergy/AdvReac Type Severity Reaction Status Date / Time No Known Allergies Allergy Verified 08/06/18 01:24 Home Medications Medication Instructions Recorded Confirmed Type aspirin 325 mg PO DAILY 06/01/18 06/01/18 History atorvastatin [Lipitor] 20 mg PO HS 06/01/18 08/06/18 History duloxetine [Cymbalta] 30 mg PO DAILY 06/01/18 06/01/18 History dutasteride [Avodart] 0.5 mg PO QPM 06/01/18 06/01/18 History gabapentin 300 mg PO Q6HR 06/01/18 06/01/18 History pantoprazole [Protonix] 40 mg PO DAILY 06/01/18 06/01/18 History tamsulosin [Flomax] 0.4 mg PO BID 06/01/18 08/06/18 History Physical Exam Vital signs: Vital Signs 08/15/18 14:00 08/15/18 16:00 08/15/18 16:15 Temperature 97.8 F Pulse Rate 80 76 77 Respiratory Rate 18 18 Blood Pressure 121/57 L 119/56 L Pulse Oximetry 90 L 90 L 08/15/18 16:22 08/15/18 16:28 08/15/18 16:30 Temperature Pulse Rate 79 66 Respiratory Rate 0 L 18 18 Blood Pressure 115/56 L 103/51 L Pulse Oximetry 90 L 92 L 90 L 08/15/18 16:45 08/15/18 17:00 08/15/18 17:15 Temperature Pulse Rate 59 L 52 L 47 L Respiratory Rate 18 18 18 Blood Pressure 113/56 L 116/55 L 113/56 L Pulse Oximetry 96 99 100 08/15/18 17:30 08/15/18 17:45 08/15/18 18:00 Temperature Pulse Rate 46 L 52 L 54 L Respiratory Rate 18 18 18 Blood Pressure 117/58 L 117/59 L 141/63 H Pulse Oximetry 100 99 97 08/15/18 18:15 08/15/18 18:30 08/15/18 18:45 Temperature Pulse Rate 53 L 53 L 60 Respiratory Rate 18 18 18 Blood Pressure 132/65 119/58 L 127/55 L Pulse Oximetry 97 97 97 08/15/18 19:00 08/15/18 19:15 08/15/18 19:27 Temperature Pulse Rate 59 L 63 Respiratory Rate 18 18 18 Blood Pressure 129/61 125/60 Pulse Oximetry 98 98 99 08/15/18 19:30 08/15/18 19:45 08/15/18 20:00 Temperature 97.6 F Pulse Rate 64 68 69 Respiratory Rate 19 18 19 Blood Pressure 133/62 109/54 L 136/62 Pulse Oximetry 99 98 99 08/15/18 20:15 08/15/18 20:30 08/15/18 20:45 Temperature Pulse Rate 66 64 69 Respiratory Rate 18 18 19 Blood Pressure 126/58 L 129/60 132/58 L Pulse Oximetry 99 99 99 08/15/18 21:00 08/15/18 21:15 08/15/18 21:30 Temperature Pulse Rate 62 59 L 67 Respiratory Rate 18 18 19 Blood Pressure 131/63 118/58 L 128/66 Pulse Oximetry 99 98 100 08/15/18 21:45 08/15/18 22:00 08/15/18 22:15 Temperature Pulse Rate 59 L 63 58 L Respiratory Rate 18 18 19 Blood Pressure 129/59 L 125/57 L 142/61 H Pulse Oximetry 97 98 100 08/15/18 22:30 08/15/18 22:45 08/15/18 23:00 Temperature Pulse Rate 62 58 L 63 Respiratory Rate 18 18 18 Blood Pressure 123/59 L 121/55 L 127/60 Pulse Oximetry 98 99 100 08/15/18 23:15 08/15/18 23:30 08/15/18 23:45 Temperature Pulse Rate 65 54 L 59 L Respiratory Rate 18 18 18 Blood Pressure 122/56 L 133/62 140/63 Pulse Oximetry 100 99 100 08/16/18 00:00 08/16/18 00:16 08/16/18 01:11 Temperature 98 F Pulse Rate 62 70 Respiratory Rate 18 18 18 Blood Pressure 144/64 H 128/60 Pulse Oximetry 100 99 99 08/16/18 01:15 08/16/18 01:30 08/16/18 01:45 Temperature Pulse Rate 61 66 63 Respiratory Rate 18 18 18 Blood Pressure 131/61 124/59 L 114/54 L Pulse Oximetry 99 99 98 08/16/18 02:00 08/16/18 02:15 08/16/18 02:30 Temperature Pulse Rate 71 63 67 Respiratory Rate 22 18 18 Blood Pressure 116/56 L 121/58 L 128/62 Pulse Oximetry 99 99 99 08/16/18 02:45 08/16/18 03:00 08/16/18 03:15 Temperature Pulse Rate 69 82 61 Respiratory Rate 18 30 H 18 Blood Pressure 120/57 L 125/57 L 118/56 L Pulse Oximetry 99 100 96 08/16/18 03:30 08/16/18 03:45 08/16/18 04:00 Temperature 98.1 F Pulse Rate 64 59 L 56 L Respiratory Rate 18 18 18 Blood Pressure 125/59 L 122/56 L 120/56 L Pulse Oximetry 98 99 100 08/16/18 04:01 08/16/18 04:15 08/16/18 04:30 Temperature Pulse Rate 67 63 Respiratory Rate 18 19 18 Blood Pressure 126/63 125/60 Pulse Oximetry 100 99 99 08/16/18 04:45 08/16/18 05:00 08/16/18 05:15 Temperature Pulse Rate 63 79 71 Respiratory Rate 18 26 H 24 Blood Pressure 123/58 L 170/67 H 118/59 L Pulse Oximetry 100 100 97 08/16/18 05:30 08/16/18 05:45 08/16/18 06:00 Temperature Pulse Rate 62 65 66 Respiratory Rate 18 18 19 Blood Pressure 126/58 L 135/64 135/58 L Pulse Oximetry 98 99 99 08/16/18 06:15 08/16/18 06:30 08/16/18 06:45 Temperature Pulse Rate 66 66 66 Respiratory Rate 18 19 21 Blood Pressure 136/61 135/63 123/58 L Pulse Oximetry 99 98 98 08/16/18 07:00 08/16/18 07:15 08/16/18 07:48 Temperature Pulse Rate 66 66 Respiratory Rate 19 19 18 Blood Pressure 118/56 L 120/56 L Pulse Oximetry 97 99 99 08/16/18 08:00 08/16/18 12:04 Temperature 98.5 F Pulse Rate 69 Respiratory Rate 19 18 Blood Pressure 117/59 L Pulse Oximetry 99 95 Intake & Output 08/15/18 08/16/18 08/16/18 18:59 06:59 18:59 Intake Total 1130 / 1130 390 / 390 Output Total 1450 / 1450 3275 / 3275 Balance -320 / -320 -2885 / -2885 Weight 159 kg Intake: IV 1050 / 1050 350 / 350 Bumex Inj 25 mg In 100 ml @ 0.5 100 / 100 MG/HR 2 mls/hr IV.CONT .Q24H [facility] Rx#:[id number] Intropin Inj 800 MG In NS Inj 50 / 50 480 ML @ 3 MCG/KG/MIN 17.51 mls /hr IV.CONT TITRATE PRN Rx#: [id number] Heparin/D5W 25,000 U/250 mL 25, 250 / 250 250 / 250 000 unit In 250 ml @ Per Protocol IV.CONT TITRATE PRN Rx #:[id number] Maxipime Inj 1,000 MG In NS Inj 200 / 200 100 / 100 100 ML @ 200 mls/hr IV.SIG Q8H [facility] Rx#:[id number] Zyvox 600 mg Premix 300 ML @ 300 / 300 300 mls/hr IV.SIG Q12H [facility] Rx#: [id number] fentaNYL 10 mcg/mL Premix Drip 150 / 150 0 / 0 2,500 mcg In 250 ml @ 50 MCG/HR 5 mls/hr IV.SIG TITRATE PRN Rx #:[id number] Tube Feeding 20 / 20 0 / 0 Tube Irrigant 60 / 60 40 / 40 Output: Urine Amount (Catheter) 1450 / 1450 3075 / 3075 Indwelling Urethral Catheter 1450 / 1450 3075 / 3075 Gastric Drainage 200 / 200 Orogastric Tube 200 / 200 Other: Date of Last Bowel Movement 08/15/18 08/15/18 # Bowel Movements 0 # Emeses 1 Narrative: GENERAL: in NAD, SKIN: Warm and dry. HEAD: Atraumatic. Normocephalic. ENT: No nasal bleeding or discharge. Mucous membranes pink and moist. NECK: Intubated CARDIOVASCULAR: Regular rate and rhythm. RESPIRATORY: Intubated GASTROINTESTINAL: Abdomen soft, non-tender, nondistended. MUSCULOSKELETAL: No gross deformity NEUROLOGICAL: Intubated, stuporous state, not following nonverbal, grimaces mild right gaze preference, no involuntary movements, OU 3 mm sluggishly reactive positive doll's eye with intact oculocephalic reflex, localizes all 4 extremity flexed with the uppers withdraws to the lowers plantarflex her no clonus reflexes depressed further sensory cerebellar gait testing limited secondary mental status PSYCHIATRIC: Intubated, calm - Urinary Catheter Management Indwelling Urethral Catheter Cath placed during this visit: yes Reason for continuing: Hourly intake/output Insertion date: 08/11/18 Insertion time: 12:00 Results 08/16/18 03:30 08/16/18 03:30 Cardiac Enzymes 08/15/18 08/15/18 Range/Units 16:37 16:37 Troponin I Less than 0.02 L Cancelled (0.02-0.05) ng/mL Coagulation 08/15/18 08/16/18 Range/Units 05:11 03:30 APTT 59.2 H D 51.2 H (24.3-30.1) sec CBC 08/15/18 08/16/18 Range/Units 05:11 03:30 WBC 7.9 7.7 (4.0-11.0) th/mm3 RBC 2.71 L 2.88 L (4.50-5.90) mil/mm3 Hgb 7.7 L 8.3 L (13.0-17.0) gm/dL Hct 23.6 L 24.9 L (39.0-51.0) % Plt Count 111 L 115 L (150-450) th/mm3 Comprehensive Metabolic Panel 08/15/18 08/15/18 08/16/18 Range/Units 05:11 16:37 03:30 Sodium 138 135 L 136 (136-145) meq/L Potassium 4.1 4.6 4.2 (3.5-5.1) meq/L Chloride 101 97 L 97 L (98-107) meq/L Carbon Dioxide 29.6 28.0 29.3 (21.0-32.0) meq/L BUN 83 H 83 H 85 H (7-18) mg/dL Creatinine 2.35 H 2.42 H 2.32 H (0.60-1.30) mg/dL Calcium 8.3 L 8.4 L 9.0 (8.5-10.1) mg/dL Intake and Output 08/15/18 08/16/18 08/16/18 22:59 06:59 14:59 Intake Total 880 / 880 390 / 390 Output Total 1450 / 1450 3275 / 3275 Balance -570 / -570 -2885 / -2885 Intake: IV 800 / 800 350 / 350 Bumex Inj 25 mg In 100 ml @ 0.5 100 / 100 MG/HR 2 mls/hr IV.CONT .Q24H [facility] Rx#:[id number] Intropin Inj 800 MG In NS Inj 50 / 50 480 ML @ 3 MCG/KG/MIN 17.51 mls /hr IV.CONT TITRATE PRN Rx#: [id number] Heparin/D5W 25,000 U/250 mL 25, 250 / 250 250 / 250 000 unit In 250 ml @ Per Protocol IV.CONT TITRATE PRN Rx #:[id number] Maxipime Inj 1,000 MG In NS Inj 100 / 100 100 / 100 100 ML @ 200 mls/hr IV.SIG Q8H [facility] Rx#:[id number] Zyvox 600 mg Premix 300 ML @ 300 / 300 300 mls/hr IV.SIG Q12H [facility] Rx#: [id number] fentaNYL 10 mcg/mL Premix Drip 0 / 0 2,500 mcg In 250 ml @ 50 MCG/HR 5 mls/hr IV.SIG TITRATE PRN Rx #:[id number] Tube Feeding 20 / 20 0 / 0 Tube Irrigant 60 / 60 40 / 40 Output: Urine Amount (Catheter) 1450 / 1450 3075 / 3075 Indwelling Urethral Catheter 1450 / 1450 3075 / 3075 Gastric Drainage 200 / 200 Orogastric Tube 200 / 200 Other: Date of Last Bowel Movement 08/15/18 08/15/18 # Bowel Movements 0 # Emeses 1 Weight 159 kg - Imaging and Cardiology Imaging: Impressions Head CT 08/15/18 09:27 CONCLUSION: 1. No acute hemorrhage or mass effect identified. 2. Focal encephalomalacia in the left frontal lobe. 3. Opacification of the mastoid air cells bilaterally which is new from the prior study consistent with acute mastoiditis. 4. Moderate atrophic change. . Head MRI 08/16/18 00:00 CONCLUSION: 1. Remote left frontal mid convexity infarct. 2. Senescent changes with mild periventricular ischemic white matter demyelination. No acute abnormality. Specifically, no acute infarction or hemorrhage. Chest X-Ray 08/16/18 05:00 CONCLUSION: Diffuse pulmonary consolidation likely related to edema. These processes are worse at the bases and on the right. Assessment and Plan - Assessment (1) Respiratory failure Code(s): J96.90 - Respiratory failure, unspecified, unspecified whether with hypoxia or hypercapnia Status: Acute (2) PNA (pneumonia) Code(s): J18.9 - Pneumonia, unspecified organism Status: Acute (3) Pleural effusion Code(s): J90 - Pleural effusion, not elsewhere classified Status: Acute (4) Osteomyelitis of ankle and foot Code(s): M86.9 - Osteomyelitis, unspecified Status: Acute (5) Diastolic heart failure Code(s): I50.30 - Unspecified diastolic (congestive) heart failure Status: Acute (6) Dyspnea Code(s): R06.00 - Dyspnea, unspecified Status: Acute - Plan 1) Bilateral pleural effusions Bumex drip Chest tubes Diuresing well 2) Diastolic dysfunction by CHIKA 3) Left atrial appendage thrombus Started on heparin drip 4) Questionable AFib Will be on anti-coagulation due to thrombus No further work up 5) Agree with palliative care consultation Appears to be progressing slowly 6) Wide complex tachycardia Possible catecholamine stimulation on Dopamine vs Afib with aberrancy Not a candidate for ischemic evaluation, will continue to follow
--- NOTE | 2018-08-16 12:58 | P.PNCC ---
Subjective Subjective Remarks/Hospital Course: 73-year-old male with past medical history significant for morbid obesity, peripheral neuropathy, diabetes mellitus, hyperlipidemia and hypertension. Patient is a long-term resident of [facility] in reportedly is not very active and is mostly bedbound. Patient was brought into the emergency room by EMS from [facility] for shortness of breath and hypoxia. Per report patient had an episode of shortness of breath with O2 sats of 70% on room air however patient refused transport to the ER. Thereafter patient had another episode of shortness of breath and hypoxia. By this time patient had been treated with Zyvox for lower extremity wound for positive MRSA as well as recently started on Levaquin for pneumonia at the half-way [facility]. Patient has a PICC line in place and has been treated with IV antibiotics. On arrival his blood pressure was 145/63, heart rate of 81, O2 sats 97% on 10 L simple mask. His blood gas was unremarkable. His creatinine was 1.93 and previously in May 2018 was 1.83. His chest x-ray showed bilateral lung consolidation possible element of pulmonary edema as well as small bilateral pleural effusion. On 08/09 patient became more hypoxemic again requiring the placement on the BiPAP ventilator and transferred to ICU. Critical care services were consulted for management of respiratory failure. 08/10: Afebrile. Currently on 4 L nasal cannula saturations are 90%. Patient normally wears CPAP/BiPAP at home according to patient. Since seen by Dr. Slim Estevez previous hospitalization. SUBJECTIVE: 08/11: Reconsulted this patient remains on BiPAP. Still appears to be normal sinus rhythm. Echocardiogram revealed dilated LV/LVH, left atrial enlargement. Possible calcified lesion left coronary cusp. Currently on furosemide 40 mg IV twice daily. Likely source of ARDS will likely need intubation. 08/12: intubated yesterday. right chest tube placed with > 1L output. CXR improved on the right, but with persistence of left plural effusion. Also, transthoracic echocardiography has failed to have adequate visualization of cardiac windows to rule in or rule out cardiogenic source of hypoxia. 08/13: good diuresis again. left chest tube placed yesterday with 1100cc output yesterday. right chest tube with only 60mL output. CHIKA done yesterday with Grade III diastolic dysfunction as well as probable left atrial appendage thrombus: on anticoagulation. 08/14: Orally intubated on mechanical ventilation. 08/15: Remains sedated, orally intubated on mechanical ventilation. Worsening BUN/creatinine noted. 08/16: Off sedation, more awake today, following commands including blinking. Remains orally intubated on mechanical ventilation. Had nonsustained V. tach yesterday after being started on dopamine for bradycardia. Remains on anticoagulation with heparin. Head CT done yesterday was negative for any bleed. MRI brain done today with no acute infarct. Objective Vital Signs / I&O: Vital Signs 08/15/18 14:00 08/15/18 16:00 08/15/18 16:15 Temperature 97.8 F Pulse Rate 80 76 77 Respiratory Rate 18 18 Blood Pressure 121/57 L 119/56 L Pulse Oximetry 90 L 90 L 08/15/18 16:22 08/15/18 16:28 08/15/18 16:30 Temperature Pulse Rate 79 66 Respiratory Rate 0 L 18 18 Blood Pressure 115/56 L 103/51 L Pulse Oximetry 90 L 92 L 90 L 08/15/18 16:45 08/15/18 17:00 08/15/18 17:15 Temperature Pulse Rate 59 L 52 L 47 L Respiratory Rate 18 18 18 Blood Pressure 113/56 L 116/55 L 113/56 L Pulse Oximetry 96 99 100 08/15/18 17:30 08/15/18 17:45 08/15/18 18:00 Temperature Pulse Rate 46 L 52 L 54 L Respiratory Rate 18 18 18 Blood Pressure 117/58 L 117/59 L 141/63 H Pulse Oximetry 100 99 97 08/15/18 18:15 08/15/18 18:30 08/15/18 18:45 Temperature Pulse Rate 53 L 53 L 60 Respiratory Rate 18 18 18 Blood Pressure 132/65 119/58 L 127/55 L Pulse Oximetry 97 97 97 08/15/18 19:00 08/15/18 19:15 08/15/18 19:27 Temperature Pulse Rate 59 L 63 Respiratory Rate 18 18 18 Blood Pressure 129/61 125/60 Pulse Oximetry 98 98 99 08/15/18 19:30 08/15/18 19:45 08/15/18 20:00 Temperature 97.6 F Pulse Rate 64 68 69 Respiratory Rate 19 18 19 Blood Pressure 133/62 109/54 L 136/62 Pulse Oximetry 99 98 99 08/15/18 20:15 08/15/18 20:30 08/15/18 20:45 Temperature Pulse Rate 66 64 69 Respiratory Rate 18 18 19 Blood Pressure 126/58 L 129/60 132/58 L Pulse Oximetry 99 99 99 08/15/18 21:00 08/15/18 21:15 08/15/18 21:30 Temperature Pulse Rate 62 59 L 67 Respiratory Rate 18 18 19 Blood Pressure 131/63 118/58 L 128/66 Pulse Oximetry 99 98 100 08/15/18 21:45 08/15/18 22:00 08/15/18 22:15 Temperature Pulse Rate 59 L 63 58 L Respiratory Rate 18 18 19 Blood Pressure 129/59 L 125/57 L 142/61 H Pulse Oximetry 97 98 100 08/15/18 22:30 08/15/18 22:45 08/15/18 23:00 Temperature Pulse Rate 62 58 L 63 Respiratory Rate 18 18 18 Blood Pressure 123/59 L 121/55 L 127/60 Pulse Oximetry 98 99 100 08/15/18 23:15 08/15/18 23:30 08/15/18 23:45 Temperature Pulse Rate 65 54 L 59 L Respiratory Rate 18 18 18 Blood Pressure 122/56 L 133/62 140/63 Pulse Oximetry 100 99 100 08/16/18 00:00 08/16/18 00:16 08/16/18 01:11 Temperature 98 F Pulse Rate 62 70 Respiratory Rate 18 18 18 Blood Pressure 144/64 H 128/60 Pulse Oximetry 100 99 99 08/16/18 01:15 08/16/18 01:30 08/16/18 01:45 Temperature Pulse Rate 61 66 63 Respiratory Rate 18 18 18 Blood Pressure 131/61 124/59 L 114/54 L Pulse Oximetry 99 99 98 08/16/18 02:00 08/16/18 02:15 08/16/18 02:30 Temperature Pulse Rate 71 63 67 Respiratory Rate 22 18 18 Blood Pressure 116/56 L 121/58 L 128/62 Pulse Oximetry 99 99 99 08/16/18 02:45 08/16/18 03:00 08/16/18 03:15 Temperature Pulse Rate 69 82 61 Respiratory Rate 18 30 H 18 Blood Pressure 120/57 L 125/57 L 118/56 L Pulse Oximetry 99 100 96 08/16/18 03:30 08/16/18 03:45 08/16/18 04:00 Temperature 98.1 F Pulse Rate 64 59 L 56 L Respiratory Rate 18 18 18 Blood Pressure 125/59 L 122/56 L 120/56 L Pulse Oximetry 98 99 100 08/16/18 04:01 08/16/18 04:15 08/16/18 04:30 Temperature Pulse Rate 67 63 Respiratory Rate 18 19 18 Blood Pressure 126/63 125/60 Pulse Oximetry 100 99 99 08/16/18 04:45 08/16/18 05:00 08/16/18 05:15 Temperature Pulse Rate 63 79 71 Respiratory Rate 18 26 H 24 Blood Pressure 123/58 L 170/67 H 118/59 L Pulse Oximetry 100 100 97 08/16/18 05:30 08/16/18 05:45 08/16/18 06:00 Temperature Pulse Rate 62 65 66 Respiratory Rate 18 18 19 Blood Pressure 126/58 L 135/64 135/58 L Pulse Oximetry 98 99 99 08/16/18 06:15 08/16/18 06:30 08/16/18 06:45 Temperature Pulse Rate 66 66 66 Respiratory Rate 18 19 21 Blood Pressure 136/61 135/63 123/58 L Pulse Oximetry 99 98 98 08/16/18 07:00 08/16/18 07:15 08/16/18 07:48 Temperature Pulse Rate 66 66 Respiratory Rate 19 19 18 Blood Pressure 118/56 L 120/56 L Pulse Oximetry 97 99 99 08/16/18 08:00 08/16/18 12:00 08/16/18 12:04 Temperature 98.5 F 98.6 F Pulse Rate 69 74 Respiratory Rate 19 19 18 Blood Pressure 117/59 L 98/55 L Pulse Oximetry 99 95 95 Intake & Output 08/15/18 08/16/18 08/16/18 18:59 06:59 18:59 Intake Total 1130 / 1130 390 / 390 Output Total 1450 / 1450 3275 / 3275 Balance -320 / -320 -2885 / -2885 Weight 159 kg Intake: IV 1050 / 1050 350 / 350 Bumex Inj 25 mg In 100 ml @ 0.5 100 / 100 MG/HR 2 mls/hr IV.CONT .Q24H [facility] Rx#:[id number] Intropin Inj 800 MG In NS Inj 50 / 50 480 ML @ 3 MCG/KG/MIN 17.51 mls /hr IV.CONT TITRATE PRN Rx#: [id number] Heparin/D5W 25,000 U/250 mL 25, 250 / 250 250 / 250 000 unit In 250 ml @ Per Protocol IV.CONT TITRATE PRN Rx #:[id number] Maxipime Inj 1,000 MG In NS Inj 200 / 200 100 / 100 100 ML @ 200 mls/hr IV.SIG Q8H [facility] Rx#:[id number] Zyvox 600 mg Premix 300 ML @ 300 / 300 300 mls/hr IV.SIG Q12H [facility] Rx#: [id number] fentaNYL 10 mcg/mL Premix Drip 150 / 150 0 / 0 2,500 mcg In 250 ml @ 50 MCG/HR 5 mls/hr IV.SIG TITRATE PRN Rx #:[id number] Tube Feeding 20 / 20 0 / 0 Tube Irrigant 60 / 60 40 / 40 Output: Urine Amount (Catheter) 1450 / 1450 3075 / 3075 Indwelling Urethral Catheter 1450 / 1450 3075 / 3075 Gastric Drainage 200 / 200 Orogastric Tube 200 / 200 Other: Date of Last Bowel Movement 08/15/18 08/15/18 # Bowel Movements 0 # Emeses 1 Result Diagrams: 08/16/18 03:30 08/16/18 03:30 Imaging: Impressions Head CT 08/15/18 09:27 CONCLUSION: 1. No acute hemorrhage or mass effect identified. 2. Focal encephalomalacia in the left frontal lobe. 3. Opacification of the mastoid air cells bilaterally which is new from the prior study consistent with acute mastoiditis. 4. Moderate atrophic change. . Head MRI 08/16/18 00:00 CONCLUSION: 1. Remote left frontal mid convexity infarct. 2. Senescent changes with mild periventricular ischemic white matter demyelination. No acute abnormality. Specifically, no acute infarction or hemorrhage. Chest X-Ray 08/16/18 05:00 CONCLUSION: Diffuse pulmonary consolidation likely related to edema. These processes are worse at the bases and on the right. Objective Remarks: GENERAL: 73-year-old male, lying in bed, intubated, sedated SKIN: Cool and dry HEAD: Atraumatic. Normocephalic. EYES: Pupils equal and round. No scleral icterus. No injection or drainage. ENT: No nasal bleeding or discharge. Mucous membranes pink and moist. NECK: Trachea midline. No JVD. CARDIOVASCULAR: Regular rate and rhythm. RESPIRATORY: on mech vent, Diminished breath sounds. Few fine crackles appreciated anteriorly. No wheezing. right chest tube in place with serous output, to suction, no air leak. left chest tube in place to suction, serous output. GASTROINTESTINAL: Abdomen obese and protuberant. no guarding. MUSCULOSKELETAL: Extremities with right lower extremity with destruction of the second/third/fourth digits foot to bone. Currently covered with Juan bandage NEUROLOGICAL: RASS -2. awakens and follows commands. Assessment and Plan - Assessment and Plan Plan: Assessment: 73yM morbidly obese with refractory acute hypoxic and hypercarbic respiratory failure. Likely secondary to mixed systolic- and diastolic heart failure exacerbation. forced diuresis. JOSE worsening Neuro/Psych: Depression Peripheral neuropathy History of right frontal CVA Off all sedation. Fentanyl for sedation as needed. Follow neuro status. Neurology consult noted. Follow-up EEG. MRI brain done on 08/16 with no acute infarct. Head CT done on 08/15 with no ICH. Continue acetaminophen 650 every 6 hours as needed fever Morphine sulfate 2 mg IV every 4 hours as needed pain 6 or 10 Gabapentin 300 mg p.o. every 6 hours peripheral neuropathy Duloxetine 30 mg daily for depression continue CV: Essential hypertension Hyperlipidemia History of non-STEMI EF 35-40% Grade III Diastolic Dysfunction Acute Congestive Heart Failure Exacerbation, mixed systolic- and diastolic- type. Left atrial appendage thrombus Continue amlodipine 5 mg daily, carvedilol 3.125 mg twice daily and hydralazine 50 mg 3 times daily for hypertension Continue atorvastatin 20 mg daily for hyperlipidemia Last echo 06/12 revealed LVEF - hard to assess but suspect mildly impaired. Current echocardiogram 06/11 revealed EF around 55%. Dilated LV/LVH and left atrial enlargement. PAP 26 MAC. Possible left coronary cusp calcification. CHIKA 08/13: EF 35-40%, Grade III Diastolic Dysfunction, probable left atrial thrombus. continue bumex infusion at 0.5mg/hr metolazone 5mg po BID Resp: Acute hypoxic and hypercarbic respiratory failure- persistent OHS Bilateral pleural effusions Pulmonary edema intubated 06/11. severe bilateral pulmonary infiltrates as well as bilateral large pleural effusions likely cause is multifactorial- large cardiogenic pulmonary edema component right chest tube placed 08/11: keep to suction today left chest tube placed 08/12: keep to suction today Ventilator bundle Titrate to keep saturations greater than 90% Albuterol/ipratropium aerosols every 6 hours with albuterol aerosols every 2 hours as needed dyspnea GI: Gastroesophageal reflux disease Hypoalbuminemia Severe acute protein calorie malnutrition Glucerna 1.5 goal 60 cc an hour GI prophylaxis/home medication pantoprazole 40 mg daily Docusate sodium/senna 1 tablet twice daily for bowel regimen along with polythene glycol 17 g twice daily pre-albumin 12 on 08/13 : BPH Continue tamsulosin 0.4 mg daily for BPH Endo: Diabetes mellitus Currently on sliding scale insulin aspart medium protocol Insulin detemir 5 units twice daily TSH was 2.77 Renal: Acute kidney injury superimposed on CKD Chronic kidney disease stage II Renal ultrasound scan revealed increased echogenicity to the right kidney Creatinine continues to increase. Being diuresed. Nephrology consult requested 08/15 keep maldonado for accurate q1h I/Os. Monitor urine output Accurate I's and O's Heme: Thrombocytopenia Normocytic anemia Left Atrial appendage thrombus Monitor CBCs daily. Follow trends. No indication for transfusion of blood products at this time. therapeutic anticoagulation with heparin drip for ENID thrombus. 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 Fifth metatarsal head with destruction. Will likely need amputation Followed by podiatry. Access -Right upper extremity PICC line. Prophylaxis -GI -lansoprazole -DVT -heparin drip I did discuss current clinical status with patient's sister yesterday on 08/15 she voiced understanding with plan and was agreeable. Being followed by palliative care team to assist with deciding goals of therapy. Alternate CODE STATUS. Critical care time 35 minutes, exclusive of separately billable procedures.
--- NOTE | 2018-08-16 15:18 | P.PNPAL ---
Reason for Visit Reason for visit: a. To assist with evaluation and management of symptoms including: Pain, dyspnea, debility. b. To assist medical decision maker(s) with: better understanding of current medical conditions; weighing benefits/burdens of medical treatment options; making medical treatment decisions. Subjective Subjective/Interval History: Patient seen and examined in ICU. No family or friends at bedside. Discussed with Dr. Bazan and nurses, Peyton and Maria Victoria. Bedside CHIKA done last week, revealed grade 3 diastolic heart failure, LVEF 35-40%, pulmonary hypertension with RVSP 51 mmHg, left atrial appendage thrombus. Patient remains on mechanical ventilator PRVC now weaned to 40% FiO2, 6 PEEP. Off sedation, opens eyes does not follow commands for me though nursing indicates he has been. MRI brain revealed no acute infarct or hemorrhage, remote left frontal convexity infarct, senescent changes with mild periventricular ischemic white matter demyelination. Bilateral chest tubes remain in place. Chest x-ray with diffuse pulmonary consolidation likely related to edema, worse at the bases and on the right. Remains on heparin, Bumex and dopamine drips. Dopamine was started for bradycardia on 08/15/18 which led to wide complex tachycardia 7-8 beats, no further episodes reported. Cardiology, Dr. Montez is aware. Notes indicate patient is not a candidate for further ischemic evaluation. Urine culture pending. Creatinine remains elevated at 2.32. Not tolerating tube feeding, OG to suction for vomiting dark, blood tinged drainage noted. Family/Friend Interactions: Spoke with HCS/ sister, Lindsey via phone. Medical update provided. Reviewed imaging (MRI brain negative for acute infarct or bleed), lab results, neurologic , pulmonary, cardiac and renal status. Explained medical team does not feel he will be able to be weaned from mech vent, reviewed upcoming decision for trach and PEG. Explained this decision will be needed by the end of the week. She states "he would get up and slap me if he knew what I have already done to him. " Reviewed path of continued aggressive care with trach and PEG vs transition to comfort measures with compassionate withdrawal of life support. Explained she hutton snot have to make this decision at this time. We agreed to talk again in the next 24-48 hours. She verbalizes appreciation for continued updates. . Advance Directives Health Care Surrogate: Copy in medical record Advance Directives Date on File: 06/15/18 Health Care Surrogate Name and Number: Lindsey Chand, sister: [phone] Significant change in goals:: NO CODE. SisterLindsey understands likely upcoming decision for trach and PEG by the end of the week, we agreed to speak again in the next 24-48 hours for continued update. Objective Vital Signs: Vital Signs 08/15/18 16:00 08/15/18 16:15 08/15/18 16:22 Temperature 97.8 F Pulse Rate 76 77 79 Respiratory Rate 18 18 0 L Blood Pressure 121/57 L 119/56 L 115/56 L Pulse Oximetry 90 L 90 L 90 L 08/15/18 16:28 08/15/18 16:30 08/15/18 16:45 Temperature Pulse Rate 66 59 L Respiratory Rate 18 18 18 Blood Pressure 103/51 L 113/56 L Pulse Oximetry 92 L 90 L 96 08/15/18 17:00 08/15/18 17:15 08/15/18 17:30 Temperature Pulse Rate 52 L 47 L 46 L Respiratory Rate 18 18 18 Blood Pressure 116/55 L 113/56 L 117/58 L Pulse Oximetry 99 100 100 08/15/18 17:45 08/15/18 18:00 08/15/18 18:15 Temperature Pulse Rate 52 L 54 L 53 L Respiratory Rate 18 18 18 Blood Pressure 117/59 L 141/63 H 132/65 Pulse Oximetry 99 97 97 08/15/18 18:30 08/15/18 18:45 08/15/18 19:00 Temperature Pulse Rate 53 L 60 59 L Respiratory Rate 18 18 18 Blood Pressure 119/58 L 127/55 L 129/61 Pulse Oximetry 97 97 98 08/15/18 19:15 08/15/18 19:27 08/15/18 19:30 Temperature Pulse Rate 63 64 Respiratory Rate 18 18 19 Blood Pressure 125/60 133/62 Pulse Oximetry 98 99 99 08/15/18 19:45 08/15/18 20:00 08/15/18 20:15 Temperature 97.6 F Pulse Rate 68 69 66 Respiratory Rate 18 19 18 Blood Pressure 109/54 L 136/62 126/58 L Pulse Oximetry 98 99 99 08/15/18 20:30 08/15/18 20:45 08/15/18 21:00 Temperature Pulse Rate 64 69 62 Respiratory Rate 18 19 18 Blood Pressure 129/60 132/58 L 131/63 Pulse Oximetry 99 99 99 08/15/18 21:15 08/15/18 21:30 08/15/18 21:45 Temperature Pulse Rate 59 L 67 59 L Respiratory Rate 18 19 18 Blood Pressure 118/58 L 128/66 129/59 L Pulse Oximetry 98 100 97 08/15/18 22:00 08/15/18 22:15 08/15/18 22:30 Temperature Pulse Rate 63 58 L 62 Respiratory Rate 18 19 18 Blood Pressure 125/57 L 142/61 H 123/59 L Pulse Oximetry 98 100 98 08/15/18 22:45 08/15/18 23:00 08/15/18 23:15 Temperature Pulse Rate 58 L 63 65 Respiratory Rate 18 18 18 Blood Pressure 121/55 L 127/60 122/56 L Pulse Oximetry 99 100 100 08/15/18 23:30 08/15/18 23:45 08/16/18 00:00 Temperature 98 F Pulse Rate 54 L 59 L 62 Respiratory Rate 18 18 18 Blood Pressure 133/62 140/63 144/64 H Pulse Oximetry 99 100 100 08/16/18 00:16 08/16/18 01:11 08/16/18 01:15 Temperature Pulse Rate 70 61 Respiratory Rate 18 18 18 Blood Pressure 128/60 131/61 Pulse Oximetry 99 99 99 08/16/18 01:30 08/16/18 01:45 08/16/18 02:00 Temperature Pulse Rate 66 63 71 Respiratory Rate 18 18 22 Blood Pressure 124/59 L 114/54 L 116/56 L Pulse Oximetry 99 98 99 08/16/18 02:15 08/16/18 02:30 08/16/18 02:45 Temperature Pulse Rate 63 67 69 Respiratory Rate 18 18 18 Blood Pressure 121/58 L 128/62 120/57 L Pulse Oximetry 99 99 99 08/16/18 03:00 08/16/18 03:15 08/16/18 03:30 Temperature Pulse Rate 82 61 64 Respiratory Rate 30 H 18 18 Blood Pressure 125/57 L 118/56 L 125/59 L Pulse Oximetry 100 96 98 08/16/18 03:45 08/16/18 04:00 08/16/18 04:01 Temperature 98.1 F Pulse Rate 59 L 56 L Respiratory Rate 18 18 18 Blood Pressure 122/56 L 120/56 L Pulse Oximetry 99 100 100 08/16/18 04:15 08/16/18 04:30 08/16/18 04:45 Temperature Pulse Rate 67 63 63 Respiratory Rate 19 18 18 Blood Pressure 126/63 125/60 123/58 L Pulse Oximetry 99 99 100 08/16/18 05:00 08/16/18 05:15 08/16/18 05:30 Temperature Pulse Rate 79 71 62 Respiratory Rate 26 H 24 18 Blood Pressure 170/67 H 118/59 L 126/58 L Pulse Oximetry 100 97 98 08/16/18 05:45 08/16/18 06:00 08/16/18 06:15 Temperature Pulse Rate 65 66 66 Respiratory Rate 18 19 18 Blood Pressure 135/64 135/58 L 136/61 Pulse Oximetry 99 99 99 08/16/18 06:30 08/16/18 06:45 08/16/18 07:00 Temperature Pulse Rate 66 66 66 Respiratory Rate 19 21 19 Blood Pressure 135/63 123/58 L 118/56 L Pulse Oximetry 98 98 97 08/16/18 07:15 08/16/18 07:48 08/16/18 08:00 Temperature 98.5 F Pulse Rate 66 69 Respiratory Rate 19 18 19 Blood Pressure 120/56 L 117/59 L Pulse Oximetry 99 99 99 08/16/18 12:00 08/16/18 12:04 Temperature 98.6 F Pulse Rate 74 Respiratory Rate 19 18 Blood Pressure 98/55 L Pulse Oximetry 95 95 Intake & Output 08/15/18 08/16/18 08/16/18 18:59 06:59 18:59 Intake Total 1130 / 1130 390 / 390 400 / 400 Output Total 1450 / 1450 3275 / 3275 Balance -320 / -320 -2885 / -2885 400 / 400 Weight 159 kg Intake: IV 1050 / 1050 350 / 350 400 / 400 Bumex Inj 25 mg In 100 ml @ 0.5 100 / 100 MG/HR 2 mls/hr IV.CONT .Q24H [facility] Rx#:[id number] Intropin Inj 800 MG In NS Inj 50 / 50 480 ML @ 3 MCG/KG/MIN 17.51 mls /hr IV.CONT TITRATE PRN Rx#: [id number] Heparin/D5W 25,000 U/250 mL 25, 250 / 250 250 / 250 000 unit In 250 ml @ Per Protocol IV.CONT TITRATE PRN Rx #:[id number] Maxipime Inj 1,000 MG In NS Inj 200 / 200 100 / 100 100 / 100 100 ML @ 200 mls/hr IV.SIG Q8H [facility] Rx#:[id number] Zyvox 600 mg Premix 300 ML @ 300 / 300 300 / 300 300 mls/hr IV.SIG Q12H [facility] Rx#: [id number] fentaNYL 10 mcg/mL Premix Drip 150 / 150 0 / 0 2,500 mcg In 250 ml @ 50 MCG/HR 5 mls/hr IV.SIG TITRATE PRN Rx #:[id number] Tube Feeding 20 / 20 0 / 0 Tube Irrigant 60 / 60 40 / 40 Output: Urine Amount (Catheter) 1450 / 1450 3075 / 3075 Indwelling Urethral Catheter 1450 / 1450 3075 / 3075 Gastric Drainage 200 / 200 Orogastric Tube 200 / 200 Other: Date of Last Bowel Movement 08/15/18 08/15/18 # Bowel Movements 0 # Emeses 1 Physical Exam: CONSTITUTIONAL/GENERAL: This is a morbidly obese gentleman, critically ill patient, on [facility] vent. TUBES/LINES/DRAINS: ETT, OG, PIV right, PIV left upper, bilateral chest tubes, podus boot on right. SKIN: No jaundice, rashes, or lesions. Ecchymoses on upper extremities. Dressing noted on right foot. Skin temperature cool. HEAD: Atraumatic. Normocephalic. ENT: Grossly normal hearing, opens eyes to voice briefly. Nose without bleeding or purulent drainage. Throat difficult to visualize due to tubes. NECK: Trachea midline. CARDIOVASCULAR: S1, S2, slightly irregular, distant heart tones, no S3, S4, rub , murmur or gallop auscultated. RESPIRATORY/CHEST: On [facility] vent, crackles noted right > left, diminished breath sounds bilaterally. GASTROINTESTINAL: Abdomen protuberant, soft. No guarding. Bowel sounds present. GENITOURINARY: Without palpable bladder distension. Greer to bedside drainage. MUSCULOSKELETAL: Right foot with dressing in place. Podus boot on right in place. NEUROLOGICAL: Off sedations, opens eyes briefly then falls off to sleep, does not follow commands for me. PSYCHIATRIC: Stirs slightly to voice. Diagnostic Tests Laboratory: Laboratory Results - last 72 hr 08/13/18 08/13/18 08/14/18 17:09 23:24 04:42 WBC 6.9 RBC 2.67 L Hgb 7.6 L Hct 23.2 L MCV 86.8 MCH 28.6 MCHC 33.0 RDW 16.9 Plt Count 122 L MPV 8.9 APTT Puncture Site Patient Temperature O2 Saturation ABG pH ABG pCO2 ABG pO2 ABG HCO3 ABG O2 Content ABG Base Excess ABG Methemoglobin Parker Test Hemoglobin Carboxyhemoglobin O2 Delivery Device Vent Setting Inspired O2 Critical Value Sodium Potassium Chloride Carbon Dioxide Anion Gap BUN Creatinine Estimated GFR POC Glucose 190 H 241 H Random Glucose Calcium Phosphorus Magnesium Total Creatine Kinase Troponin I Urine Color Urine Clarity Urine pH Ur Specific [place] Urine Protein Urine Glucose (UA) Urine Ketones Urine Occult Blood Urine Nitrate Urine Bilirubin Urine Urobilinogen Ur Leukocyte Esterase Urine RBC Urine WBC Ur Squamous Epith Cells Amorphous Sediment Urine Bacteria Urine Mucus Micro UA Comment Ur Microscopic Review Urine Culture Comments 08/14/18 08/14/18 08/14/18 04:42 04:42 05:49 WBC RBC Hgb Hct MCV MCH MCHC RDW Plt Count MPV APTT 48.6 H Puncture Site Left radial Patient Temperature 98.6 O2 Saturation 96 ABG pH 7.41 ABG pCO2 42 ABG pO2 127 H ABG HCO3 26 ABG O2 Content 12.1 ABG Base Excess 2.2 H ABG Methemoglobin 1.7 Parker Test Present Hemoglobin 8.8 L Carboxyhemoglobin 1.0 O2 Delivery Device Ventilator Vent Setting See comments Inspired O2 40 Critical Value No Sodium 140 Potassium 4.0 Chloride 103 Carbon Dioxide 28.0 Anion Gap 9 BUN 78 H Creatinine 2.22 H Estimated GFR 29 L POC Glucose Random Glucose 191 H Calcium 8.5 Phosphorus 3.3 Magnesium 2.3 Total Creatine Kinase Troponin I Urine Color Urine Clarity Urine pH Ur Specific [place] Urine Protein Urine Glucose (UA) Urine Ketones Urine Occult Blood Urine Nitrate Urine Bilirubin Urine Urobilinogen Ur Leukocyte Esterase Urine RBC Urine WBC Ur Squamous Epith Cells Amorphous Sediment Urine Bacteria Urine Mucus Micro UA Comment Ur Microscopic Review Urine Culture Comments 08/14/18 08/14/18 08/14/18 12:10 18:53 20:31 WBC RBC Hgb Hct MCV MCH MCHC RDW Plt Count MPV APTT Puncture Site Patient Temperature O2 Saturation ABG pH ABG pCO2 ABG pO2 ABG HCO3 ABG O2 Content ABG Base Excess ABG Methemoglobin Parker Test Hemoglobin Carboxyhemoglobin O2 Delivery Device Vent Setting Inspired O2 Critical Value Sodium Potassium Chloride Carbon Dioxide Anion Gap BUN Creatinine Estimated GFR POC Glucose 210 H 263 H 234 H Random Glucose Calcium Phosphorus Magnesium Total Creatine Kinase Troponin I Urine Color Urine Clarity Urine pH Ur Specific [place] Urine Protein Urine Glucose (UA) Urine Ketones Urine Occult Blood Urine Nitrate Urine Bilirubin Urine Urobilinogen Ur Leukocyte Esterase Urine RBC Urine WBC Ur Squamous Epith Cells Amorphous Sediment Urine Bacteria Urine Mucus Micro UA Comment Ur Microscopic Review Urine Culture Comments 08/14/18 08/15/18 08/15/18 23:33 04:24 05:11 WBC 7.9 RBC 2.71 L Hgb 7.7 L Hct 23.6 L MCV 87.1 MCH 28.5 MCHC 32.7 RDW 17.1 Plt Count 111 L MPV 9.2 APTT Puncture Site Left radial Patient Temperature 98.6 O2 Saturation 96 ABG pH 7.46 H ABG pCO2 38 ABG pO2 111 ABG HCO3 26 ABG O2 Content 11.0 L ABG Base Excess 2.4 H ABG Methemoglobin 1.2 Parker Test Present Hemoglobin 8.0 L Carboxyhemoglobin 1.3 O2 Delivery Device Ventilator Vent Setting See comments Inspired O2 40 Critical Value No Sodium Potassium Chloride Carbon Dioxide Anion Gap BUN Creatinine Estimated GFR POC Glucose 250 H Random Glucose Calcium Phosphorus Magnesium Total Creatine Kinase Troponin I Urine Color Urine Clarity Urine pH Ur Specific [place] Urine Protein Urine Glucose (UA) Urine Ketones Urine Occult Blood Urine Nitrate Urine Bilirubin Urine Urobilinogen Ur Leukocyte Esterase Urine RBC Urine WBC Ur Squamous Epith Cells Amorphous Sediment Urine Bacteria Urine Mucus Micro UA Comment Ur Microscopic Review Urine Culture Comments 08/15/18 08/15/18 08/15/18 05:11 05:11 05:27 WBC RBC Hgb Hct MCV MCH MCHC RDW Plt Count MPV APTT 59.2 H D Puncture Site Patient Temperature O2 Saturation ABG pH ABG pCO2 ABG pO2 ABG HCO3 ABG O2 Content ABG Base Excess ABG Methemoglobin Parker Test Hemoglobin Carboxyhemoglobin O2 Delivery Device Vent Setting Inspired O2 Critical Value Sodium 138 Potassium 4.1 Chloride 101 Carbon Dioxide 29.6 Anion Gap 7 BUN 83 H Creatinine 2.35 H Estimated GFR 27 L POC Glucose 248 H Random Glucose 212 H Calcium 8.3 L Phosphorus 3.6 Magnesium 2.5 Total Creatine Kinase Troponin I Urine Color Urine Clarity Urine pH Ur Specific [place] Urine Protein Urine Glucose (UA) Urine Ketones Urine Occult Blood Urine Nitrate Urine Bilirubin Urine Urobilinogen Ur Leukocyte Esterase Urine RBC Urine WBC Ur Squamous Epith Cells Amorphous Sediment Urine Bacteria Urine Mucus Micro UA Comment Ur Microscopic Review Urine Culture Comments 08/15/18 08/15/18 08/15/18 12:24 16:37 16:37 WBC RBC Hgb Hct MCV MCH MCHC RDW Plt Count MPV APTT Puncture Site Patient Temperature O2 Saturation ABG pH ABG pCO2 ABG pO2 ABG HCO3 ABG O2 Content ABG Base Excess ABG Methemoglobin Parker Test Hemoglobin Carboxyhemoglobin O2 Delivery Device Vent Setting Inspired O2 Critical Value Sodium 135 L Potassium 4.6 Chloride 97 L Carbon Dioxide 28.0 Anion Gap 10 BUN 83 H Creatinine 2.42 H Estimated GFR 26 L POC Glucose 234 H Random Glucose 259 H Calcium 8.4 L Phosphorus 4.2 Magnesium 2.3 Total Creatine Kinase 206 Cancelled Troponin I Less than 0.02 L Urine Color Urine Clarity Urine pH Ur Specific [place] Urine Protein Urine Glucose (UA) Urine Ketones Urine Occult Blood Urine Nitrate Urine Bilirubin Urine Urobilinogen Ur Leukocyte Esterase Urine RBC Urine WBC Ur Squamous Epith Cells Amorphous Sediment Urine Bacteria Urine Mucus Micro UA Comment Ur Microscopic Review Urine Culture Comments 08/15/18 08/15/18 08/15/18 16:37 17:15 17:50 WBC RBC Hgb Hct MCV MCH MCHC RDW Plt Count MPV APTT Puncture Site Patient Temperature O2 Saturation ABG pH ABG pCO2 ABG pO2 ABG HCO3 ABG O2 Content ABG Base Excess ABG Methemoglobin Parker Test Hemoglobin Carboxyhemoglobin O2 Delivery Device Vent Setting Inspired O2 Critical Value Sodium Potassium Chloride Carbon Dioxide Anion Gap BUN Creatinine Estimated GFR POC Glucose 256 H Random Glucose Calcium Phosphorus Magnesium Total Creatine Kinase Troponin I Cancelled Urine Color Straw Urine Clarity Hazy H Urine pH 5.0 Ur Specific [place] 1.006 Urine Protein Negative Urine Glucose (UA) Negative Urine Ketones Negative Urine Occult Blood Moderate H Urine Nitrate Negative Urine Bilirubin Negative Urine Urobilinogen Less than 2 Ur Leukocyte Esterase Small H Urine RBC 1 Urine WBC 32 H Ur Squamous Epith Cells 1 Amorphous Sediment Rare H Urine Bacteria Rare H Urine Mucus Few H Micro UA Comment Culture indicated Ur Microscopic Review Not Reportable Urine Culture Comments Culture indicated 08/15/18 08/15/18 08/16/18 20:36 23:51 03:30 WBC RBC Hgb Hct MCV MCH MCHC RDW Plt Count MPV APTT 51.2 H Puncture Site Patient Temperature O2 Saturation ABG pH ABG pCO2 ABG pO2 ABG HCO3 ABG O2 Content ABG Base Excess ABG Methemoglobin Parker Test Hemoglobin Carboxyhemoglobin O2 Delivery Device Vent Setting Inspired O2 Critical Value Sodium Potassium Chloride Carbon Dioxide Anion Gap BUN Creatinine Estimated GFR POC Glucose 261 H 252 H Random Glucose Calcium Phosphorus Magnesium Total Creatine Kinase Troponin I Urine Color Urine Clarity Urine pH Ur Specific [place] Urine Protein Urine Glucose (UA) Urine Ketones Urine Occult Blood Urine Nitrate Urine Bilirubin Urine Urobilinogen Ur Leukocyte Esterase Urine RBC Urine WBC Ur Squamous Epith Cells Amorphous Sediment Urine Bacteria Urine Mucus Micro UA Comment Ur Microscopic Review Urine Culture Comments 08/16/18 08/16/18 08/16/18 03:30 03:30 05:19 WBC 7.7 RBC 2.88 L Hgb 8.3 L Hct 24.9 L MCV 86.4 MCH 28.9 MCHC 33.4 RDW 16.9 Plt Count 115 L MPV 9.5 APTT Puncture Site Left radial Patient Temperature 98.6 O2 Saturation 94 ABG pH 7.48 H ABG pCO2 39 ABG pO2 81 ABG HCO3 29 H ABG O2 Content 11.1 L ABG Base Excess 5.1 H ABG Methemoglobin 1.7 Parker Test Present Hemoglobin 8.3 L Carboxyhemoglobin 1.3 O2 Delivery Device Vent Vent Setting Prvc/ac Inspired O2 40 Critical Value No Sodium 136 Potassium 4.2 Chloride 97 L Carbon Dioxide 29.3 Anion Gap 10 BUN 85 H Creatinine 2.32 H Estimated GFR 28 L POC Glucose Random Glucose 197 H Calcium 9.0 Phosphorus 4.2 Magnesium 2.4 Total Creatine Kinase Troponin I Urine Color Urine Clarity Urine pH Ur Specific [place] Urine Protein Urine Glucose (UA) Urine Ketones Urine Occult Blood Urine Nitrate Urine Bilirubin Urine Urobilinogen Ur Leukocyte Esterase Urine RBC Urine WBC Ur Squamous Epith Cells Amorphous Sediment Urine Bacteria Urine Mucus Micro UA Comment Ur Microscopic Review Urine Culture Comments 08/16/18 08/16/18 06:00 11:50 WBC RBC Hgb Hct MCV MCH MCHC RDW Plt Count MPV APTT Puncture Site Patient Temperature O2 Saturation ABG pH ABG pCO2 ABG pO2 ABG HCO3 ABG O2 Content ABG Base Excess ABG Methemoglobin Parker Test Hemoglobin Carboxyhemoglobin O2 Delivery Device Vent Setting Inspired O2 Critical Value Sodium Potassium Chloride Carbon Dioxide Anion Gap BUN Creatinine Estimated GFR POC Glucose 252 H 257 H Random Glucose Calcium Phosphorus Magnesium Total Creatine Kinase Troponin I Urine Color Urine Clarity Urine pH Ur Specific [place] Urine Protein Urine Glucose (UA) Urine Ketones Urine Occult Blood Urine Nitrate Urine Bilirubin Urine Urobilinogen Ur Leukocyte Esterase Urine RBC Urine WBC Ur Squamous Epith Cells Amorphous Sediment Urine Bacteria Urine Mucus Micro UA Comment Ur Microscopic Review Urine Culture Comments Result Diagrams: 08/16/18 03:30 08/16/18 03:30 Microbiology: Microbiology 08/12/18 08:45 Gram Stain - Final Fluid - Pleural fluid Body Fluid Culture - Final No growth in 72 hours (aerobically and anaerobically) 08/11/18 17:02 Gram Stain - Final Fluid - Pleural fluid Body Fluid Culture - Final No growth in 72 hours (aerobically and anaerobically) 08/11/18 17:02 Acid Fast Bacilli Smear - Final Abscess - Lung No acid fast bacilli seen Imaging: Foot X-Ray 08/06/18 00:00 CONCLUSION: Destructive changes at the fifth metatarsal head and possibly the fourth metatarsal head. Extremity Arterial Study 08/08/18 00:00 CONCLUSION: 1. Moderate reduction of the toe brachial indices bilaterally suggesting microangiopathic disease. 2. ABIs within the normal range bilaterally. Foot MRI 08/08/18 00:00 CONCLUSION: 1. Findings consistent with marrow edema and osteomyelitis involving the fourth and fifth metatarsals. The base of the fifth is spared. Proximal one third of the fourth is spared. Chest CT 08/11/18 13:44 CONCLUSION: 1. Diffuse bilateral pulmonary infiltrates and effusions. 2. Atherosclerosis. Venous Doppler Study 08/12/18 00:00 CONCLUSION: 1. The study is negative for lower extremity deep venous thrombosis. Head CT 08/15/18 09:27 CONCLUSION: 1. No acute hemorrhage or mass effect identified. 2. Focal encephalomalacia in the left frontal lobe. 3. Opacification of the mastoid air cells bilaterally which is new from the prior study consistent with acute mastoiditis. 4. Moderate atrophic change. . Head MRI 08/16/18 00:00 CONCLUSION: 1. Remote left frontal mid convexity infarct. 2. Senescent changes with mild periventricular ischemic white matter demyelination. No acute abnormality. Specifically, no acute infarction or hemorrhage. Chest X-Ray 08/16/18 05:00 CONCLUSION: Diffuse pulmonary consolidation likely related to edema. These processes are worse at the bases and on the right. Procedures: * Bilateral chest tubes * 08/11/18 - Intubated. Assessment and Plan - Disease Oriented Problem List (1) Diastolic heart failure (2) PNA (pneumonia) (3) Pleural effusion (4) Osteomyelitis of ankle and foot (5) Kidney disease (6) Morbid obesity (7) Diabetes (8) Hypertension (9) JOSE (acute kidney injury) (10) SHEELA (obstructive sleep apnea) (11) COPD (chronic obstructive pulmonary disease) (12) Thrombus of left atrial appendage - Symptom Scale (1) Pain 0-10 Scale: Unable to quantify (2) Dyspnea 0-10 Scale: Unable to quantify (3) Debility 0-10 Scale: Unable to quantify Pertinent Non-Medical Issues: Psychosocial: . Supported by his 2 sisters, Lindsey and Frances who live in [place]. Spiritual: None. Legal:Patient is not capacitated to make his own health care decisions, uncertain if he will regain capacity. Called [facility] to see if they have any written advance directives, copy of written designation of health care surrogate received dated 06/15/18 naming his sister, Lindsey Chand as health care surrogate # [phone]. Ethical issues impacting care: No known concerns at this time. Important Contacts: * Lindsey Chand, sister/ [facility]: [phone] * Ria Alegria, sister: [phone] Prognosis: Overall prognosis appears poor for meaningful recovery. Code Status: Alternative Code (Intubation Only.) Plan: * Patient is not capacitated to make his own health care decisions, uncertain if he will regain capacity. Called [facility] to see if they have any written advance directives, copy of written designation of health care surrogate received dated 06/15/18 naming his sister, Lindsey Chand as health care surrogate # [phone]. * NO CODE. * Spoke with sisterLindsey via telephone to provide medical update. Sister Frances is traveling back to [place] today. Goals remains aggressive short of NO CODE and NO amputation. [facility] Lindsey understands upcoming trach and PEG decisions requested by the end of the week. Palliative care will continue to update in the coming days. She is not sure patient would want trach and PEG, needs time to think about this. She has a good understanding of current medical conditions and condition. * Discussed with Dr. Bazan and nurse, Fred. * Family does NOT want any information shared with friends of patient, including but not limited to Elsie. * SYMPTOMS: Pain: due to chronic debility, osteomyelitis, wounds, pneumonia, tubes, restraints, etc. No obvious signs of pain today, on fentanyl. Will continue to monitor. Dyspnea: post 2 chest tubes. On mech vent, not breathing over. No new medication recommendations at this time. * Palliative care will continue to follow to assist with symptom management and clarification of goals of medical treatment as needed. Attestation Attestation: To help prompt me to consider important information that might be impacting today's encounter and assessment, information from prior notes written by myself or my colleagues may have been "brought forward" into today's note. My signature on this note, however, is an attestation that I personally performed the exam, history, and/or decision-making noted today, and, unless otherwise indicated, the interactions with patient, family, and staff as well as the review of records all occurred today. I also attest that the listed assessment and stated plan reflect my best clinical judgment today based on the combination of historical information, prior notes, and today's exam/ interactions. 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
[2018-08-16] MEDS: Bumetanide Inj 25 MG/100 ML BAG IV.CONT SCH (15:42)
--- NOTE | 2018-08-16 16:18 | ECG ---
Date Performed: 08/15/2018 Time Performed: 19:12:22 PTAGE: 73 years EKG: Supraventricular rhythm of uncertain mechanism INTRAVENTRICULAR CONDUCTION DELAY ABNORMAL E CG PREVIOUS TRACING : 08/11/2018 09.39 Compared to previous tracing, the supraventricular rhythm h as slowed, but there is no other significant serial change DOCTOR: Sarah Louis Interpretating Date/Time 08/16/2018 16:17:57
[2018-08-16] MEDS: Finasteride 5 MG Tablet PO SCH (17:27)
--- NOTE | 2018-08-16 17:28 | P.PNPL ---
Subjective Interval history: 73 YOWM with COPD,SHEELA,Resp insuff Developed RF, intubated CT chest showed Bilat infilt and pl eff On PRVC AC 18,Fi02 40% Off sedation On Dopamine 1.5 Mcg DNR now Physical Exam Vital signs: Vital Signs 08/15/18 17:30 08/15/18 17:45 08/15/18 18:00 Temperature Pulse Rate 46 L 52 L 54 L Respiratory Rate 18 18 18 Blood Pressure 117/58 L 117/59 L 141/63 H Pulse Oximetry 100 99 97 08/15/18 18:15 08/15/18 18:30 08/15/18 18:45 Temperature Pulse Rate 53 L 53 L 60 Respiratory Rate 18 18 18 Blood Pressure 132/65 119/58 L 127/55 L Pulse Oximetry 97 97 97 08/15/18 19:00 08/15/18 19:15 08/15/18 19:27 Temperature Pulse Rate 59 L 63 Respiratory Rate 18 18 18 Blood Pressure 129/61 125/60 Pulse Oximetry 98 98 99 08/15/18 19:30 08/15/18 19:45 08/15/18 20:00 Temperature 97.6 F Pulse Rate 64 68 69 Respiratory Rate 19 18 19 Blood Pressure 133/62 109/54 L 136/62 Pulse Oximetry 99 98 99 08/15/18 20:15 08/15/18 20:30 08/15/18 20:45 Temperature Pulse Rate 66 64 69 Respiratory Rate 18 18 19 Blood Pressure 126/58 L 129/60 132/58 L Pulse Oximetry 99 99 99 08/15/18 21:00 08/15/18 21:15 08/15/18 21:30 Temperature Pulse Rate 62 59 L 67 Respiratory Rate 18 18 19 Blood Pressure 131/63 118/58 L 128/66 Pulse Oximetry 99 98 100 08/15/18 21:45 08/15/18 22:00 08/15/18 22:15 Temperature Pulse Rate 59 L 63 58 L Respiratory Rate 18 18 19 Blood Pressure 129/59 L 125/57 L 142/61 H Pulse Oximetry 97 98 100 08/15/18 22:30 08/15/18 22:45 08/15/18 23:00 Temperature Pulse Rate 62 58 L 63 Respiratory Rate 18 18 18 Blood Pressure 123/59 L 121/55 L 127/60 Pulse Oximetry 98 99 100 08/15/18 23:15 08/15/18 23:30 08/15/18 23:45 Temperature Pulse Rate 65 54 L 59 L Respiratory Rate 18 18 18 Blood Pressure 122/56 L 133/62 140/63 Pulse Oximetry 100 99 100 08/16/18 00:00 08/16/18 00:16 08/16/18 01:11 Temperature 98 F Pulse Rate 62 70 Respiratory Rate 18 18 18 Blood Pressure 144/64 H 128/60 Pulse Oximetry 100 99 99 08/16/18 01:15 08/16/18 01:30 08/16/18 01:45 Temperature Pulse Rate 61 66 63 Respiratory Rate 18 18 18 Blood Pressure 131/61 124/59 L 114/54 L Pulse Oximetry 99 99 98 08/16/18 02:00 08/16/18 02:15 08/16/18 02:30 Temperature Pulse Rate 71 63 67 Respiratory Rate 22 18 18 Blood Pressure 116/56 L 121/58 L 128/62 Pulse Oximetry 99 99 99 08/16/18 02:45 08/16/18 03:00 08/16/18 03:15 Temperature Pulse Rate 69 82 61 Respiratory Rate 18 30 H 18 Blood Pressure 120/57 L 125/57 L 118/56 L Pulse Oximetry 99 100 96 08/16/18 03:30 08/16/18 03:45 08/16/18 04:00 Temperature 98.1 F Pulse Rate 64 59 L 56 L Respiratory Rate 18 18 18 Blood Pressure 125/59 L 122/56 L 120/56 L Pulse Oximetry 98 99 100 08/16/18 04:01 08/16/18 04:15 08/16/18 04:30 Temperature Pulse Rate 67 63 Respiratory Rate 18 19 18 Blood Pressure 126/63 125/60 Pulse Oximetry 100 99 99 08/16/18 04:45 08/16/18 05:00 08/16/18 05:15 Temperature Pulse Rate 63 79 71 Respiratory Rate 18 26 H 24 Blood Pressure 123/58 L 170/67 H 118/59 L Pulse Oximetry 100 100 97 08/16/18 05:30 08/16/18 05:45 08/16/18 06:00 Temperature Pulse Rate 62 65 66 Respiratory Rate 18 18 19 Blood Pressure 126/58 L 135/64 135/58 L Pulse Oximetry 98 99 99 08/16/18 06:15 08/16/18 06:30 08/16/18 06:45 Temperature Pulse Rate 66 66 66 Respiratory Rate 18 19 21 Blood Pressure 136/61 135/63 123/58 L Pulse Oximetry 99 98 98 08/16/18 07:00 08/16/18 07:15 08/16/18 07:48 Temperature Pulse Rate 66 66 Respiratory Rate 19 19 18 Blood Pressure 118/56 L 120/56 L Pulse Oximetry 97 99 99 08/16/18 08:00 08/16/18 12:00 08/16/18 12:04 Temperature 98.5 F 98.6 F Pulse Rate 69 74 Respiratory Rate 19 19 18 Blood Pressure 117/59 L 98/55 L Pulse Oximetry 99 95 95 08/16/18 16:00 08/16/18 16:26 Temperature 97.7 F Pulse Rate 69 Respiratory Rate 19 21 Blood Pressure 103/69 Pulse Oximetry 96 100 Intake & Output 08/15/18 08/16/18 08/16/18 18:59 06:59 18:59 Intake Total 1130 / 1130 390 / 390 600 / 600 Output Total 1450 / 1450 3275 / 3275 Balance -320 / -320 -2885 / -2885 600 / 600 Weight 159 kg Intake: IV 1050 / 1050 350 / 350 600 / 600 Bumex Inj 25 mg In 100 ml @ 0.5 100 / 100 100 / 100 MG/HR 2 mls/hr IV.CONT .Q24H [facility] Rx#:[id number] Intropin Inj 800 MG In NS Inj 50 / 50 480 ML @ 3 MCG/KG/MIN 17.51 mls /hr IV.CONT TITRATE PRN Rx#: [id number] Heparin/D5W 25,000 U/250 mL 25, 250 / 250 250 / 250 000 unit In 250 ml @ Per Protocol IV.CONT TITRATE PRN Rx #:[id number] Maxipime Inj 1,000 MG In NS Inj 200 / 200 100 / 100 200 / 200 100 ML @ 200 mls/hr IV.SIG Q8H [facility] Rx#:[id number] Zyvox 600 mg Premix 300 ML @ 300 / 300 300 / 300 300 mls/hr IV.SIG Q12H [facility] Rx#: [id number] fentaNYL 10 mcg/mL Premix Drip 150 / 150 0 / 0 2,500 mcg In 250 ml @ 50 MCG/HR 5 mls/hr IV.SIG TITRATE PRN Rx #:[id number] Tube Feeding 20 / 20 0 / 0 Tube Irrigant 60 / 60 40 / 40 Output: Urine Amount (Catheter) 1450 / 1450 3075 / 3075 Indwelling Urethral Catheter 1450 / 1450 3075 / 3075 Gastric Drainage 200 / 200 Orogastric Tube 200 / 200 Other: Date of Last Bowel Movement 08/15/18 08/15/18 # Bowel Movements 0 # Emeses 1 GENERAL:Elderly WM, on Vent SKIN: Warm and dry. HEAD: Normocephalic. EYES: No scleral icterus. No injection or drainage. NECK: Supple, trachea midline. No JVD or lymphadenopathy. CARDIOVASCULAR: Regular rate and rhythm without murmurs, gallops, or rubs. RESPIRATORY: Breath sounds equal bilaterally. No accessory muscle use. GASTROINTESTINAL: Abdomen soft, non-tender, nondistended. MUSCULOSKELETAL: No cyanosis, or edema. BACK: Nontender without obvious deformity. No CVA tenderness. - Urinary Catheter Management Indwelling Urethral Catheter Cath placed during this visit: yes Reason for continuing: Acute urinary retention Insertion date: 08/11/18 Insertion time: 12:00 Assessment and Plan - Plan IMPRESSION: 1. Respiratory failure. 2. Hypoxia. 3. Morbid obesity. 4. Likely sleep apnea. 5. Osteomyelitis. 6. Pneumonia. 7. Pulmonary edema. 8. Renal insufficiency. 9. Pleural effusion, s/p rt chest tube PLAN: Vent support [facility] AC 18,Fi02 40$ Dopamine drip Diurease Monitor Lytes Abx per ID Palliative care following
--- NOTE | 2018-08-16 20:41 | MG ---
cc: Herber Ovalles MD INDICATION: Intubated. No seizure activity in the past. Depression, neuropathy, right ischemic stroke. Aspirin. Diffuse 5-6 Hz rhythm is noted and bifrontal delta slowing is seen. At times slightly sharply contoured and appears to be almost triphasic appearing at times and that happens not infrequently throughout the recording. The patient is noted to be awake. Hyperventilation not performed. I do not see any major hemisphere asymmetry. IMPRESSION: Diffuse slowing consistent with a moderate diffuse encephalopathy. Some bifrontal sharply contoured waves almost metabolic appearing could be a slight increased risk for seizures. At times, there was a little bit more prominence over the left hemisphere than the right. Clinical correlation is needed. Herber Ovalles MD DJM/sv , 08:09 PM , 08:13 PM
[2018-08-17] MEDS: Gabapentin 300 MG Capsule PO SCH ×4 (00:10→17:06)
[2018-08-17] MEDS: Insulin NovoLOG Aspart Correctional Sugar Inj SQ SCH ×4 (00:10→23:18)
[2018-08-17] MEDS: Oral Hygiene Kit OROPHARYNG SCH ×4 (00:11→16:18)
[2018-08-17] MEDS: Heparin Drip 25,000 UNIT/250 ML BAG IV.CONT PRN ×2 (02:20→17:04)
[2018-08-17 05:40] LABS: Hematocrit 26.9 % (39.0-51.0); Hemoglobin 8.8 gm/dL (13.0-17.0); Mean Corpuscular HGB Conc 32.7 % (32.0-36.0); Mean Corpuscular Hemoglobin 28.1 pg (27.0-34.0); Mean Corpuscular Volume 85.8 fL (80.0-100.0); Mean Platelet Volume 9.2 fL (7.0-11.0); Platelet Count 124 th/mm3 (150-450); Red Blood Count 3.14 mil/mm3 (4.50-5.90); Red Cell Distribution Width 16.5 % (11.6-17.2); White Blood Count 8.4 th/mm3 (4.0-11.0)
[2018-08-17 06:29] LABS: Calcium 9.2 mg/dL (8.5-10.1); Carbon Dioxide 33.9 meq/L (21.0-32.0); Magnesium 2.2 mg/dL (1.5-2.5); Potassium 3.3 meq/L (3.5-5.1)
[2018-08-17] MEDS: guaiFENesin 600 MG ER Tablet PO SCH ×2 (08:16→20:55)
[2018-08-17] MEDS: Chlorhexidine 0.12% Oral Kit 15 ML UDC OROPHARYNG SCH ×2 (08:16→20:56)
[2018-08-17] MEDS: Aspirin 325 MG Tablet PO SCH (08:16)
[2018-08-17] MEDS: Carboxymethylcellulose 0.5% Opth Drops 15 ML Bottle EACH EYE SCH ×2 (08:17→20:55)
[2018-08-17] MEDS: metOLazone 5 MG Tablet PO SCH (08:17)
[2018-08-17] MEDS: Senna/Docusate Sodium 8.6/50 MG Tablet PO SCH ×2 (08:17→20:55)
[2018-08-17] MEDS: Insulin Detemir Inj 1,000 UNIT/10 ML Vial SQ SCH ×3 (08:18→20:55)
[2018-08-17] MEDS: Sodium Chloride 0.9% 2 ML Flush BID IV.FLUSH SCH ×2 (08:18→20:55)
[2018-08-17] MEDS: amLODIPine 5 MG Tablet PO SCH (08:18)
[2018-08-17] MEDS: Polyethylene Glycol 3350 17 GM Packet PO SCH ×2 (08:18→20:55)
--- NOTE | 2018-08-17 09:56 | P.PNCC ---
Subjective Subjective Remarks/Hospital Course: 73-year-old male with past medical history significant for morbid obesity, peripheral neuropathy, diabetes mellitus, hyperlipidemia and hypertension. Patient is a long-term resident of [facility] in reportedly is not very active and is mostly bedbound. Patient was brought into the emergency room by EMS from [facility] for shortness of breath and hypoxia. Per report patient had an episode of shortness of breath with O2 sats of 70% on room air however patient refused transport to the ER. Thereafter patient had another episode of shortness of breath and hypoxia. By this time patient had been treated with Zyvox for lower extremity wound for positive MRSA as well as recently started on Levaquin for pneumonia at the [facility]. Patient has a PICC line in place and has been treated with IV antibiotics. On arrival his blood pressure was 145/63, heart rate of 81, O2 sats 97% on 10 L simple mask. His blood gas was unremarkable. His creatinine was 1.93 and previously in May 2018 was 1.83. His chest x-ray showed bilateral lung consolidation possible element of pulmonary edema as well as small bilateral pleural effusion. On 08/09 patient became more hypoxemic again requiring the placement on the BiPAP ventilator and transferred to ICU. Critical care services were consulted for management of respiratory failure. 08/10: Afebrile. Currently on 4 L nasal cannula saturations are 90%. Patient normally wears CPAP/BiPAP at home according to patient. Since seen by Dr. Slim Estevez previous hospitalization. SUBJECTIVE: 08/11: Reconsulted this patient remains on BiPAP. Still appears to be normal sinus rhythm. Echocardiogram revealed dilated LV/LVH, left atrial enlargement. Possible calcified lesion left coronary cusp. Currently on furosemide 40 mg IV twice daily. Likely source of ARDS will likely need intubation. 08/12: intubated yesterday. right chest tube placed with > 1L output. CXR improved on the right, but with persistence of left plural effusion. Also, transthoracic echocardiography has failed to have adequate visualization of cardiac windows to rule in or rule out cardiogenic source of hypoxia. 08/13: good diuresis again. left chest tube placed yesterday with 1100cc output yesterday. right chest tube with only 60mL output. CHIKA done yesterday with Grade III diastolic dysfunction as well as probable left atrial appendage thrombus: on anticoagulation. 08/14: Orally intubated on mechanical ventilation. 08/15: Remains sedated, orally intubated on mechanical ventilation. Worsening BUN/creatinine noted. 08/16: Off sedation, more awake today, following commands including blinking. Remains orally intubated on mechanical ventilation. Had nonsustained V. tach yesterday after being started on dopamine for bradycardia. Remains on anticoagulation with heparin. Head CT done yesterday was negative for any bleed. MRI brain done today with no acute infarct. 08/17: Off sedation, awake and alert. Remains orally intubated on mechanical ventilation. Apneic episodes on initiating CPAP trials this morning. Objective Vital Signs / I&O: Vital Signs 08/16/18 10:00 08/16/18 10:15 08/16/18 10:30 Temperature Pulse Rate 60 60 61 Respiratory Rate 18 18 18 Blood Pressure 138/63 121/57 L 123/62 Pulse Oximetry 100 99 98 08/16/18 10:44 08/16/18 11:34 08/16/18 11:40 Temperature Pulse Rate 80 74 74 Respiratory Rate 22 18 Blood Pressure 139/71 117/58 L Pulse Oximetry 100 98 08/16/18 12:00 08/16/18 12:04 08/16/18 13:00 Temperature 98.6 F Pulse Rate 74 71 Respiratory Rate 19 18 44 H Blood Pressure 98/55 L 102/73 Pulse Oximetry 95 95 95 08/16/18 14:00 08/16/18 15:00 08/16/18 16:00 Temperature 97.7 F Pulse Rate 72 67 69 Respiratory Rate 18 18 19 Blood Pressure 115/57 L 112/57 L 103/69 Pulse Oximetry 97 97 96 08/16/18 16:26 08/16/18 17:00 08/16/18 18:00 Temperature Pulse Rate 70 67 Respiratory Rate 21 19 27 H Blood Pressure 151/64 H 137/63 Pulse Oximetry 100 94 L 92 L 08/16/18 19:00 08/16/18 19:56 08/16/18 20:00 Temperature Pulse Rate 73 77 Respiratory Rate 20 18 21 Blood Pressure 123/59 L 164/71 H Pulse Oximetry 92 L 94 L 100 08/16/18 21:00 08/16/18 22:00 08/16/18 23:00 Temperature Pulse Rate 63 77 69 Respiratory Rate 24 19 19 Blood Pressure 152/65 H 136/68 126/60 Pulse Oximetry 97 95 95 08/16/18 23:15 08/17/18 00:00 08/17/18 01:00 Temperature Pulse Rate 74 72 Respiratory Rate 21 21 18 Blood Pressure 114/55 L 115/56 L Pulse Oximetry 98 93 L 94 L 08/17/18 02:00 08/17/18 03:00 08/17/18 04:00 Temperature Pulse Rate 74 74 78 Respiratory Rate 18 19 20 Blood Pressure 114/56 L 110/54 L 125/60 Pulse Oximetry 94 L 95 96 08/17/18 04:13 08/17/18 07:38 08/17/18 08:00 Temperature 97.7 F Pulse Rate 77 Respiratory Rate 18 18 24 Blood Pressure 75/58 L Pulse Oximetry 92 L 95 93 L Intake & Output 08/16/18 08/17/18 08/17/18 18:59 06:59 18:59 Intake Total 960 / 960 750 / 750 Output Total 3550 / 3550 3200 / 3200 Balance -2590 / -2590 -2450 / -2450 Weight 145.1 kg Intake: IV 900 / 900 750 / 750 Bumex Inj 25 mg In 100 ml @ 0.5 100 / 100 MG/HR 2 mls/hr IV.CONT .Q24H [facility] Rx#:[id number] Heparin/D5W 25,000 U/250 mL 25, 250 / 250 000 unit In 250 ml @ Per Protocol IV.CONT TITRATE PRN Rx #:[id number] Maxipime Inj 1,000 MG In NS Inj 200 / 200 200 / 200 100 ML @ 200 mls/hr IV.SIG Q8H [facility] Rx#:[id number] Zyvox 600 mg Premix 300 ML @ 600 / 600 300 / 300 300 mls/hr IV.SIG Q12H [facility] Rx#: [id number] Tube Feeding 0 / 0 Tube Irrigant 60 / 60 Output: Urine Amount (Catheter) 3550 / 3550 3200 / 3200 Indwelling Urethral Catheter 3550 / 3550 3200 / 3200 Result Diagrams: 08/17/18 04:08 08/17/18 04:08 Imaging: Impressions Head CT 08/15/18 09:27 CONCLUSION: 1. No acute hemorrhage or mass effect identified. 2. Focal encephalomalacia in the left frontal lobe. 3. Opacification of the mastoid air cells bilaterally which is new from the prior study consistent with acute mastoiditis. 4. Moderate atrophic change. . Head MRI 08/16/18 00:00 CONCLUSION: 1. Remote left frontal mid convexity infarct. 2. Senescent changes with mild periventricular ischemic white matter demyelination. No acute abnormality. Specifically, no acute infarction or hemorrhage. Chest X-Ray 08/16/18 05:00 CONCLUSION: Diffuse pulmonary consolidation likely related to edema. These processes are worse at the bases and on the right. Objective Remarks: GENERAL: 73-year-old male, lying in bed, intubated, sedated SKIN: Cool and dry HEAD: Atraumatic. Normocephalic. EYES: Pupils equal and round. No scleral icterus. No injection or drainage. ENT: No nasal bleeding or discharge. Mucous membranes pink and moist. NECK: Trachea midline. No JVD. CARDIOVASCULAR: Regular rate and rhythm. RESPIRATORY: on mech vent, Diminished breath sounds. Few fine crackles appreciated anteriorly. No wheezing. right chest tube in place with serous output, to suction, no air leak. left chest tube in place to suction, serous output. GASTROINTESTINAL: Abdomen obese and protuberant. no guarding. MUSCULOSKELETAL: Extremities with right lower extremity with destruction of the second/third/fourth digits foot to bone. Currently covered with Juan bandage NEUROLOGICAL: RASS -1. awakens and follows commands. Assessment and Plan - Assessment and Plan Plan: Assessment: 73yM morbidly obese with refractory acute hypoxic and hypercarbic respiratory failure. Likely secondary to mixed systolic- and diastolic heart failure exacerbation. forced diuresis. JOSE worsening Neuro/Psych: Depression Peripheral neuropathy History of right frontal CVA Off all sedation. Fentanyl for sedation as needed. Follow neuro status. Neurology consult noted. Follow-up EEG. MRI brain done on 08/16 with no acute infarct. Head CT done on 08/15 with no ICH. Continue acetaminophen 650 every 6 hours as needed fever Morphine sulfate 2 mg IV every 4 hours as needed pain 6 or 10 Gabapentin 300 mg p.o. every 6 hours peripheral neuropathy Duloxetine 30 mg daily for depression continue CV: Essential hypertension Hyperlipidemia History of non-STEMI EF 35-40% Grade III Diastolic Dysfunction Acute Congestive Heart Failure Exacerbation, mixed systolic- and diastolic- type. Left atrial appendage thrombus Continue amlodipine 5 mg daily, carvedilol 3.125 mg twice daily and hydralazine 50 mg 3 times daily for hypertension Continue atorvastatin 20 mg daily for hyperlipidemia Last echo 06/12 revealed LVEF - hard to assess but suspect mildly impaired. Current echocardiogram 06/11 revealed EF around 55%. Dilated LV/LVH and left atrial enlargement. PAP 26 MAC. Possible left coronary cusp calcification. CHIKA 08/13: EF 35-40%, Grade III Diastolic Dysfunction, probable left atrial thrombus. continue bumex infusion at 0.5mg/hr metolazone 5mg po BID Low-dose dopamine for bradycardia as needed Resp: Acute hypoxic and hypercarbic respiratory failure- persistent OHS Bilateral pleural effusions Pulmonary edema intubated 06/11. severe bilateral pulmonary infiltrates as well as bilateral large pleural effusions likely cause is multifactorial- large cardiogenic pulmonary edema component right chest tube placed 08/11: keep to suction today left chest tube placed 08/12: keep to suction today Ventilator bundle Titrate to keep saturations greater than 90% Albuterol/ipratropium aerosols every 6 hours with albuterol aerosols every 2 hours as needed dyspnea GI: Gastroesophageal reflux disease Hypoalbuminemia Severe acute protein calorie malnutrition Glucerna 1.5 goal 60 cc an hour GI prophylaxis/home medication pantoprazole 40 mg daily Docusate sodium/senna 1 tablet twice daily for bowel regimen along with polythene glycol 17 g twice daily pre-albumin 12 on 08/13 : BPH Continue tamsulosin 0.4 mg daily for BPH Endo: Diabetes mellitus Currently on sliding scale insulin aspart medium protocol Insulin detemir 5 units twice daily TSH was 2.77 Renal: Acute kidney injury superimposed on CKD Chronic kidney disease stage II Renal ultrasound scan revealed increased echogenicity to the right kidney Creatinine continues to increase. Being diuresed. Nephrology consult requested 08/15 keep maldonado for accurate q1h I/Os. Monitor urine output Accurate I's and O's Heme: Thrombocytopenia Normocytic anemia Left Atrial appendage thrombus Monitor CBCs daily. Follow trends. No indication for transfusion of blood products at this time. therapeutic anticoagulation with heparin drip for ENID thrombus. 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 Fifth metatarsal head with destruction. Will likely need amputation Followed by podiatry. Access -Right upper extremity PICC line. Prophylaxis -GI -lansoprazole -DVT -heparin drip I did discuss current clinical status with patient's sister on 08/15 she voiced understanding with plan and was agreeable. Being followed by palliative care team to assist with deciding goals of therapy. Alternate CODE STATUS. Critical care time 35 minutes, exclusive of separately billable procedures.
--- NOTE | 2018-08-17 10:22 | P.PNID ---
Subjective Remarks: Mr. Meléndez is a 73-year-old male with past medical history significant for morbid obesity, peripheral neuropathy, diabetes mellitus, hyperlipidemia and hypertension. Patient is a long-term resident of [facility] in reportedly is not very active and is mostly bedbound. Patient was brought into the emergency room by EMS from [facility] for shortness of breath and hypoxia. Per report patient had an episode of shortness of breath with O2 sats of 70% on room air however patient refused transport to the ER. Thereafter patient had another episode of shortness of breath and hypoxia. By this time patient had been treated with Zyvox for lower extremity wound for positive MRSA as well as recently started on Levaquin for pneumonia at the [place] facility. Patient has a PICC line in place and has been treated with IV antibiotics. Nurse taking care of the patient informs me that currently there is no blood draws from the PICC line but medications can be infused although with some difficulty. Due to concern for thrombosis at the site of PICC line I have ordered a Doppler which is pending at the present time. On arrival his blood pressure was 145 x 63, heart rate of 81, O2 sats 97% on 10 L simple mask. His blood gas was unremarkable. His creatinine was 1.93 and previously in May 2018 was 1.83. His chest x-ray showed bilateral lung consolidation possible element of pulmonary edema as well as small bilateral pleural effusion. He received 1 dose of Lasix in the ER. Infectious diseases consulted for evaluation and pneumonia as well as osteomyelitis. s/b Podiatry even if osteomyelitis it was likely partially treated prior to arrival. Patient refused amputation. Reviewed Podiatry no plans for surgery or biopsy and they dont think it is the source of infection,. Overnight events reviewed. Remains intubated in the ICU. Low BP this am when weaned off Dopamine and given lasix. No fevers, hypothermia. No rash No diarrhea. Antibiotics: Cefepime IV Zyvox IV Lines: Lines ok Past Medical History: reviewed Allergies/Adverse Reactions: Allergies No Known Allergies Allergy (Verified 08/06/18 01:24) Objective Vital Signs 08/16/18 10:30 08/16/18 10:44 08/16/18 11:34 Temperature Pulse Rate 61 80 74 Respiratory Rate 18 22 Blood Pressure 123/62 139/71 Pulse Oximetry 98 100 08/16/18 11:40 08/16/18 12:00 08/16/18 12:04 Temperature 98.6 F Pulse Rate 74 74 Respiratory Rate 18 19 18 Blood Pressure 117/58 L 98/55 L Pulse Oximetry 98 95 95 08/16/18 13:00 08/16/18 14:00 08/16/18 15:00 Temperature Pulse Rate 71 72 67 Respiratory Rate 44 H 18 18 Blood Pressure 102/73 115/57 L 112/57 L Pulse Oximetry 95 97 97 08/16/18 16:00 08/16/18 16:26 08/16/18 17:00 Temperature 97.7 F Pulse Rate 69 70 Respiratory Rate 19 21 19 Blood Pressure 103/69 151/64 H Pulse Oximetry 96 100 94 L 08/16/18 18:00 08/16/18 19:00 08/16/18 19:56 Temperature Pulse Rate 67 73 Respiratory Rate 27 H 20 18 Blood Pressure 137/63 123/59 L Pulse Oximetry 92 L 92 L 94 L 08/16/18 20:00 08/16/18 21:00 08/16/18 22:00 Temperature Pulse Rate 77 63 77 Respiratory Rate 21 24 19 Blood Pressure 164/71 H 152/65 H 136/68 Pulse Oximetry 100 97 95 08/16/18 23:00 08/16/18 23:15 08/17/18 00:00 Temperature Pulse Rate 69 74 Respiratory Rate 19 21 21 Blood Pressure 126/60 114/55 L Pulse Oximetry 95 98 93 L 08/17/18 01:00 08/17/18 02:00 08/17/18 03:00 Temperature Pulse Rate 72 74 74 Respiratory Rate 18 18 19 Blood Pressure 115/56 L 114/56 L 110/54 L Pulse Oximetry 94 L 94 L 95 08/17/18 04:00 08/17/18 04:13 08/17/18 07:38 Temperature Pulse Rate 78 Respiratory Rate 20 18 18 Blood Pressure 125/60 Pulse Oximetry 96 92 L 95 08/17/18 08:00 Temperature 97.7 F Pulse Rate 77 Respiratory Rate 24 Blood Pressure 75/58 L Pulse Oximetry 93 L Intake & Output 08/16/18 08/17/18 08/17/18 18:59 06:59 18:59 Intake Total 960 / 960 750 / 750 Output Total 3550 / 3550 3200 / 3200 Balance -2590 / -2590 -2450 / -2450 Weight 145.1 kg Intake: IV 900 / 900 750 / 750 Bumex Inj 25 mg In 100 ml @ 0.5 100 / 100 MG/HR 2 mls/hr IV.CONT .Q24H [facility] Rx#:[id number] Heparin/D5W 25,000 U/250 mL 25, 250 / 250 000 unit In 250 ml @ Per Protocol IV.CONT TITRATE PRN Rx #:[id number] Maxipime Inj 1,000 MG In NS Inj 200 / 200 200 / 200 100 ML @ 200 mls/hr IV.SIG Q8H [facility] Rx#:[id number] Zyvox 600 mg Premix 300 ML @ 600 / 600 300 / 300 300 mls/hr IV.SIG Q12H [facility] Rx#: [id number] Tube Feeding 0 / 0 Tube Irrigant 60 / 60 Output: Urine Amount (Catheter) 3550 / 3550 3200 / 3200 Indwelling Urethral Catheter 3550 / 3550 3200 / 3200 08/15/18 17:15 Catheterized Urine Urine Culture - Preliminary Yeast - ID to follow 08/12/18 08:45 Fluid - Pleural fluid Gram Stain - Final 08/12/18 08:45 Fluid - Pleural fluid Body Fluid Culture - Final No growth in 72 hours (aerobically and anaerobically ) 08/11/18 17:02 Fluid - Pleural fluid Gram Stain - Final 08/11/18 17:02 Fluid - Pleural fluid Body Fluid Culture - Final No growth in 72 hours (aerobically and anaerobically ) Lab - Hematology Results 08/16/18 08/17/18 03:30 04:08 WBC 7.7 8.4 RBC 2.88 L 3.14 L Hgb 8.3 L 8.8 L Hct 24.9 L 26.9 L MCV 86.4 85.8 MCH 28.9 28.1 MCHC 33.4 32.7 RDW 16.9 16.5 Plt Count 115 L 124 L MPV 9.5 9.2 Lab - Chemistry Results 08/15/18 08/15/18 08/15/18 12:24 16:37 16:37 Sodium 135 L Potassium 4.6 Chloride 97 L Carbon Dioxide 28.0 Anion Gap 10 BUN 83 H Creatinine 2.42 H Estimated GFR 26 L POC Glucose 234 H Random Glucose 259 H Calcium 8.4 L Phosphorus 4.2 Magnesium 2.3 Total Creatine Kinase 206 Cancelled Troponin I Less than 0.02 L 08/15/18 08/15/18 08/15/18 16:37 17:50 20:36 Sodium Potassium Chloride Carbon Dioxide Anion Gap BUN Creatinine Estimated GFR POC Glucose 256 H 261 H Random Glucose Calcium Phosphorus Magnesium Total Creatine Kinase Troponin I Cancelled 08/15/18 08/16/18 08/16/18 23:51 03:30 06:00 Sodium 136 Potassium 4.2 Chloride 97 L Carbon Dioxide 29.3 Anion Gap 10 BUN 85 H Creatinine 2.32 H Estimated GFR 28 L POC Glucose 252 H 252 H Random Glucose 197 H Calcium 9.0 Phosphorus 4.2 Magnesium 2.4 Total Creatine Kinase Troponin I 08/16/18 08/16/18 08/17/18 11:50 17:24 00:04 Sodium Potassium Chloride Carbon Dioxide Anion Gap BUN Creatinine Estimated GFR POC Glucose 257 H 300 H 331 H Random Glucose Calcium Phosphorus Magnesium Total Creatine Kinase Troponin I 08/17/18 08/17/18 04:08 05:49 Sodium 132 L Potassium 3.3 L D Chloride 87 L D Carbon Dioxide 33.9 H Anion Gap 11 BUN 81 H Creatinine 2.48 H Estimated GFR 26 L POC Glucose 372 H Random Glucose 322 H D Calcium 9.2 Phosphorus 4.0 Magnesium 2.2 Total Creatine Kinase Troponin I Imaging: ITS Impressions Foot X-Ray 08/06/18 00:00 CONCLUSION: Destructive changes at the fifth metatarsal head and possibly the fourth metatarsal head. Extremity Arterial Study 08/08/18 00:00 CONCLUSION: 1. Moderate reduction of the toe brachial indices bilaterally suggesting microangiopathic disease. 2. ABIs within the normal range bilaterally. Foot MRI 08/08/18 00:00 CONCLUSION: 1. Findings consistent with marrow edema and osteomyelitis involving the fourth and fifth metatarsals. The base of the fifth is spared. Proximal one third of the fourth is spared. Chest CT 08/11/18 13:44 CONCLUSION: 1. Diffuse bilateral pulmonary infiltrates and effusions. 2. Atherosclerosis. Venous Doppler Study 08/12/18 00:00 CONCLUSION: 1. The study is negative for lower extremity deep venous thrombosis. Head CT 08/15/18 09:27 CONCLUSION: 1. No acute hemorrhage or mass effect identified. 2. Focal encephalomalacia in the left frontal lobe. 3. Opacification of the mastoid air cells bilaterally which is new from the prior study consistent with acute mastoiditis. 4. Moderate atrophic change. . Head MRI 08/16/18 00:00 CONCLUSION: 1. Remote left frontal mid convexity infarct. 2. Senescent changes with mild periventricular ischemic white matter demyelination. No acute abnormality. Specifically, no acute infarction or hemorrhage. Chest X-Ray 08/16/18 05:00 CONCLUSION: Diffuse pulmonary consolidation likely related to edema. These processes are worse at the bases and on the right. Physical Exam: GENERAL: Morbid Obesity, not in acute distress SKIN: Cool and dry, no generalized rash HEAD: Atraumatic. Normocephalic. No temporal or scalp tenderness. EYES: Pupils equal round and reactive. Scleral icterus. No injection or drainage. No petechia ENT: Intubated. NECK: Trachea midline. Supple, nontender, no meningeal signs. CARDIOVASCULAR: HS audible. RESPIRATORY: Clear to auscultation bilaterally. GASTROINTESTINAL: Abdomen soft nontender. MUSCULOSKELETAL: Right LE in bandage. NEUROLOGICAL: Alert oriented 3. Nonfocal. Psych cooperative IV line sites ok. Assessment and Plan - Plan Fluid overload. Less likely to be Health care associated pneumonia Osteomyelitis of right foot. PICC line in place r/o infection, thrombus. Morbid Obesity Sleep apnea based on clinical picture. Recs: Start Teflaro IV (will cover MRSA and some gram negatives) Cannot use Levaquin as cardiac issues per my delfino CCM MD. delfino [facility] lung issues seem to be primarily fluid overload. Would like to cut down on number of infusions. s/b Podiatry even if osteomyelitis it was likely partially treated prior to arrival. Patient refused amputation. Reviewed Podiatry no plans for surgery or biopsy and they dont think it is the source of infection. DC Cefepime increase dose to q8hrs DC Zyvox IV Follow cultures Follow clinical course. delfino LAURENT
--- NOTE | 2018-08-17 11:20 | P.PNPL ---
Subjective Interval history: 73 YOWM with COPD,SHEELA,Resp insuff Developed RF, intubated CT chest showed Bilat infilt and pl eff On PRVC AC 18,Fi02 40% Does't tolerate CPAP, becomes Apnoic Off sedation On Dopamine 1 Mcg DNR now Abx changed to Ceftaroline Physical Exam Vital signs: Vital Signs 08/16/18 11:34 08/16/18 11:40 08/16/18 12:00 Temperature 98.6 F Pulse Rate 74 74 74 Respiratory Rate 18 19 Blood Pressure 117/58 L 98/55 L Pulse Oximetry 98 95 08/16/18 12:04 08/16/18 13:00 08/16/18 14:00 Temperature Pulse Rate 71 72 Respiratory Rate 18 44 H 18 Blood Pressure 102/73 115/57 L Pulse Oximetry 95 95 97 08/16/18 15:00 08/16/18 16:00 08/16/18 16:26 Temperature 97.7 F Pulse Rate 67 69 Respiratory Rate 18 19 21 Blood Pressure 112/57 L 103/69 Pulse Oximetry 97 96 100 08/16/18 17:00 08/16/18 18:00 08/16/18 19:00 Temperature Pulse Rate 70 67 73 Respiratory Rate 19 27 H 20 Blood Pressure 151/64 H 137/63 123/59 L Pulse Oximetry 94 L 92 L 92 L 08/16/18 19:56 08/16/18 20:00 08/16/18 21:00 Temperature Pulse Rate 77 63 Respiratory Rate 18 21 24 Blood Pressure 164/71 H 152/65 H Pulse Oximetry 94 L 100 97 08/16/18 22:00 08/16/18 23:00 08/16/18 23:15 Temperature Pulse Rate 77 69 Respiratory Rate 19 19 21 Blood Pressure 136/68 126/60 Pulse Oximetry 95 95 98 08/17/18 00:00 08/17/18 01:00 08/17/18 02:00 Temperature Pulse Rate 74 72 74 Respiratory Rate 21 18 18 Blood Pressure 114/55 L 115/56 L 114/56 L Pulse Oximetry 93 L 94 L 94 L 08/17/18 03:00 08/17/18 04:00 08/17/18 04:13 Temperature Pulse Rate 74 78 Respiratory Rate 19 20 18 Blood Pressure 110/54 L 125/60 Pulse Oximetry 95 96 92 L 08/17/18 07:38 08/17/18 08:00 Temperature 97.7 F Pulse Rate 77 Respiratory Rate 18 24 Blood Pressure 75/58 L Pulse Oximetry 95 93 L Intake & Output 08/16/18 08/17/18 08/17/18 18:59 06:59 18:59 Intake Total 960 / 960 750 / 750 Output Total 3550 / 3550 3200 / 3200 Balance -2590 / -2590 -2450 / -2450 Weight 145.1 kg Intake: IV 900 / 900 750 / 750 Bumex Inj 25 mg In 100 ml @ 0.5 100 / 100 MG/HR 2 mls/hr IV.CONT .Q24H [facility] Rx#:[id number] Heparin/D5W 25,000 U/250 mL 25, 250 / 250 000 unit In 250 ml @ Per Protocol IV.CONT TITRATE PRN Rx #:[id number] Maxipime Inj 1,000 MG In NS Inj 200 / 200 200 / 200 100 ML @ 200 mls/hr IV.SIG Q8H [facility] Rx#:[id number] Zyvox 600 mg Premix 300 ML @ 600 / 600 300 / 300 300 mls/hr IV.SIG Q12H [facility] Rx#: [id number] Tube Feeding 0 / 0 Tube Irrigant 60 / 60 Output: Urine Amount (Catheter) 3550 / 3550 3200 / 3200 Indwelling Urethral Catheter 3550 / 3550 3200 / 3200 GENERAL: Obese WM, on Vent SKIN: Warm and dry. HEAD: Normocephalic. EYES: No scleral icterus. No injection or drainage. NECK: Supple, trachea midline. No JVD or lymphadenopathy. CARDIOVASCULAR: Regular rate and rhythm without murmurs, gallops, or rubs. RESPIRATORY: Breath sounds equal bilaterally. No accessory muscle use. GASTROINTESTINAL: Abdomen soft, non-tender, nondistended. MUSCULOSKELETAL: No cyanosis, or edema. BACK: Nontender without obvious deformity. No CVA tenderness. - Urinary Catheter Management Indwelling Urethral Catheter Cath placed during this visit: yes Reason for continuing: Acute urinary retention Insertion date: 08/11/18 Insertion time: 12:00 Assessment and Plan - Plan IMPRESSION: 1. Respiratory failure. 2. Hypoxia. 3. Morbid obesity. 4. Likely sleep apnea. 5. Osteomyelitis. 6. Pneumonia. 7. Pulmonary edema. 8. Renal insufficiency. 9. Pleural effusion, s/p rt chest tube PLAN: Vent support PRVC AC 18,Fi02 40$ Dopamine drip Diurease Monitor Lytes Abx per ID Ceftaroline q 8 hrs Palliative care following
--- NOTE | 2018-08-17 12:33 | P.PNNP ---
Subjective Interval history: patient was seen and examined. He is much more alert today. Excellent urine output. Creatinine is slightly higher today. Physical Exam Vital signs: Vital Signs 08/16/18 13:00 08/16/18 14:00 08/16/18 15:00 Temperature Pulse Rate 71 72 67 Respiratory Rate 44 H 18 18 Blood Pressure 102/73 115/57 L 112/57 L Pulse Oximetry 95 97 97 08/16/18 16:00 08/16/18 16:26 08/16/18 17:00 Temperature 97.7 F Pulse Rate 69 70 Respiratory Rate 19 21 19 Blood Pressure 103/69 151/64 H Pulse Oximetry 96 100 94 L 08/16/18 18:00 08/16/18 19:00 08/16/18 19:56 Temperature Pulse Rate 67 73 Respiratory Rate 27 H 20 18 Blood Pressure 137/63 123/59 L Pulse Oximetry 92 L 92 L 94 L 08/16/18 20:00 08/16/18 21:00 08/16/18 22:00 Temperature Pulse Rate 77 63 77 Respiratory Rate 21 24 19 Blood Pressure 164/71 H 152/65 H 136/68 Pulse Oximetry 100 97 95 08/16/18 23:00 08/16/18 23:15 08/17/18 00:00 Temperature Pulse Rate 69 74 Respiratory Rate 19 21 21 Blood Pressure 126/60 114/55 L Pulse Oximetry 95 98 93 L 08/17/18 01:00 08/17/18 02:00 08/17/18 03:00 Temperature Pulse Rate 72 74 74 Respiratory Rate 18 18 19 Blood Pressure 115/56 L 114/56 L 110/54 L Pulse Oximetry 94 L 94 L 95 08/17/18 04:00 08/17/18 04:13 08/17/18 07:38 Temperature Pulse Rate 78 Respiratory Rate 20 18 18 Blood Pressure 125/60 Pulse Oximetry 96 92 L 95 08/17/18 08:00 08/17/18 12:00 Temperature 97.7 F 98.5 F Pulse Rate 77 68 Respiratory Rate 24 18 Blood Pressure 75/58 L 104/55 L Pulse Oximetry 93 L 95 Intake & Output 08/16/18 08/17/18 08/17/18 18:59 06:59 18:59 Intake Total 960 / 960 750 / 750 Output Total 3550 / 3550 3200 / 3200 Balance -2590 / -2590 -2450 / -2450 Weight 145.1 kg Intake: IV 900 / 900 750 / 750 Bumex Inj 25 mg In 100 ml @ 0.5 100 / 100 MG/HR 2 mls/hr IV.CONT .Q24H [facility] Rx#:[id number] Heparin/D5W 25,000 U/250 mL 25, 250 / 250 000 unit In 250 ml @ Per Protocol IV.CONT TITRATE PRN Rx #:[id number] Maxipime Inj 1,000 MG In NS Inj 200 / 200 200 / 200 100 ML @ 200 mls/hr IV.SIG Q8H [facility] Rx#:[id number] Zyvox 600 mg Premix 300 ML @ 600 / 600 300 / 300 300 mls/hr IV.SIG Q12H [facility] Rx#: [id number] Tube Feeding 0 / 0 Tube Irrigant 60 / 60 Output: Urine Amount (Catheter) 3550 / 3550 3200 / 3200 Indwelling Urethral Catheter 3550 / 3550 3200 / 3200 Narrative: GENERAL: intubated, appears to follow commands. SKIN: Warm and dry. HEAD: Atraumatic. Normocephalic. ENT: No nasal bleeding or discharge. Mucous membranes pink and moist. NECK: Intubated CARDIOVASCULAR: Regular rate and rhythm. RESPIRATORY: CTA GASTROINTESTINAL: Abdomen soft, non-tender, nondistended. MUSCULOSKELETAL: No gross deformity. Edema of upper and lower extremities, more prominent on the upper extremities. NEUROLOGICAL:Mental status has improved. - Urinary Catheter Management Indwelling Urethral Catheter Cath placed during this visit: yes Reason for continuing: Acute urinary retention Insertion date: 08/11/18 Insertion time: 12:00 Assessment and Plan - Assessment (1) Acute kidney injury Code(s): N17.9 - Acute kidney failure, unspecified Status: Acute Plan: Responding to Bumex drip. No need for dialysis today. Avoid nephrotoxic agents. Stop Metolazone. May stop Bumex drip. Monitor urine output and renal function. (2) Respiratory failure Code(s): J96.90 - Respiratory failure, unspecified, unspecified whether with hypoxia or hypercapnia Status: Acute Plan: Vent support. Antibiotics. bilateral chest tubes. On heparin for anticoagulation as CHIKA revealed possible left atrial appendage thrombus.
--- NOTE | 2018-08-17 14:03 | P.PNCA ---
Subjective Interval history: No events On CPAP but not tolerating Medications and Allergies Active Medications: Active Medications Acetaminophen (Tylenol) 650 mg PO Q6H PRN PRN Reason: Temp > 100.4 Al Hydroxide/Mg Hydroxide (Milk Of Magnbruce Liq) 30 ml PO Q12H PRN PRN Reason: Mild Constipation Albuterol (Albuterol Neb (Prn)) 2.5 mg NEB Q2HR NEB PRN PRN Reason: DYSPNEA Last Admin: 08/15/18 03:30 Dose: 2.5 mg Amlodipine Besylate (Norvasc) 5 mg PO DAILY [facility] Last Admin: 08/17/18 08:18 Dose: Not Given Artificial Tears (Refresh Tears 0.5% Opth Drops) 1 drop EACH EYE BID [facility] Last Admin: 08/17/18 08:17 Dose: 1 drop Aspirin (Aspirin) 325 mg PO DAILY [facility] Last Admin: 08/17/18 08:16 Dose: 325 mg Atorvastatin Calcium (Lipitor) 20 mg PO HS [facility] Last Admin: 08/16/18 21:16 Dose: 20 mg Bisacodyl (Dulcolax Supp) 10 mg RECTAL DAILY PRN PRN Reason: SEVERE CONSITIPATION Carvedilol (Coreg) 3.125 mg PO BID [facility] Last Admin: 08/17/18 08:18 Dose: Not Given Chlorhexidine Gluconate (Chlorhexidine 2% Cloth) 1 pack TOPICAL PRN PRN PRN Reason: FOR HYGIENIC CARE Chlorhexidine Gluconate (Peridex 0.12% Oral Kit) 15 ml OROPHARYNG BID@0800, 2000 [facility] Last Admin: 08/17/18 08:16 Dose: 15 ml Dextrose (D50w Vial) 50 ml IV.PUSH UNSCH PRN PRN Reason: PER HYPOGLYCEMIA PROTOCOL Duloxetine HCl (Cymbalta) 30 mg PO DAILY [facility] Last Admin: 08/17/18 08:16 Dose: 30 mg Finasteride (Proscar) 5 mg PO DAILY@1800 [facility] Last Admin: 08/16/18 17:27 Dose: 5 mg Gabapentin (Neurontin) 300 mg PO Q6HR [facility] Last Admin: 08/17/18 12:00 Dose: 300 mg Glucagon (Glucagon Inj) 1 mg OTHER PRN PRN PRN Reason: for Hypoglycemia Protocol Guaifenesin (Mucinex Er) 600 mg PO BID [facility] Last Admin: 08/17/18 08:16 Dose: 600 mg Fentanyl (Fentanyl 10 Mcg/Ml Premix Drip) 2,500 mcg in 250 mls @ 5 mls/hr IV.SIG TITRATE PRN; Protocol PRN Reason: Per Protocol Last Titration: 08/15/18 19:00 Dose: Infused Midazolam HCl (Versed Inj) 50 mg in 50 mls @ 2 mls/hr IV.CONT TITRATE PRN; Protocol PRN Reason: Per Protocol Norepinephrine Bitartrate 16 (mg/ Sodium Chloride) 250 mls @ 1.87 mls/hr IV.CONT TITRATE PRN; Protocol PRN Reason: See Protocol Bumetanide (Bumex Inj) 25 mg in 100 mls @ 2 mls/hr IV.CONT .Q24H [facility] Last Admin: 08/16/18 15:42 Dose: 0.5 mg/hr, 2 mls/hr Heparin Sodium/Dextrose (Heparin/D5w 25,000 U/250 Ml) 25,000 unit in 250 mls @ 0 mls/hr IV.CONT TITRATE PRN; Protocol PRN Reason: Per Protocol Last Titration: 08/17/18 05:54 Dose: 1,800 units/hr, 18 mls/hr Dopamine HCl 800 mg/ Sodium (Chloride) 500 mls @ 17.51 mls/hr IV.CONT TITRATE PRN; Protocol PRN Reason: PER PROTOCOL Last Titration: 08/15/18 19:00 Dose: 1.5 mcg/kg/min, 8.75 mls/hr Ceftaroline Fosamil 600 mg/ (Sodium Chloride) 100 mls @ 100 mls/hr IV.SIG Q8H [facility] Last Admin: 08/17/18 13:08 Dose: 100 mls/hr Insulin Aspart (Novolog Insulin Correctional Sugar Inj) 0 unit SQ Q6HR [facility]; Protocol Last Admin: 08/17/18 12:00 Dose: 7 unit Insulin Detemir (Levemir Inj) 15 unit SQ BID [facility] Last Admin: 08/17/18 10:23 Dose: 15 unit Lactulose (Lactulose Liq) 30 ml PO DAILY PRN PRN Reason: SEVERE CONSITIPATION Lansoprazole (Prevacid Solutab) 30 mg NG/OG DAILY [facility] Last Admin: 08/17/18 08:17 Dose: 30 mg Miscellaneous Medication () 1 each OROPHARYNG 0000,0400,1200,1600 [facility] Last Admin: 08/17/18 12:01 Dose: 1 each Ondansetron HCl (Zofran Inj) 4 mg IV.PUSH Q6H PRN PRN Reason: NAUSEA OR VOMITING Last Admin: 08/16/18 00:57 Dose: 4 mg Polyethylene Glycol (Miralax) 17 gm PO BID [facility] Last Admin: 08/17/18 08:18 Dose: 17 gm Potassium Chloride (K-Dur) 20 meq PO BID [facility] Last Admin: 08/17/18 08:17 Dose: 20 meq Senna/Docusate Sodium (Isabella-Colace) 1 tab PO BID [facility] Last Admin: 08/17/18 08:17 Dose: 1 tab Sennosides (Senokot) 17.2 mg PO Q12H PRN PRN Reason: Moderate Constipation Sodium Chloride (Ns Flush) 2 ml IV.FLUSH BID [facility] Last Admin: 08/17/18 08:18 Dose: 2 ml Sodium Chloride (Ns Flush) 2 ml IV.FLUSH PRN PRN PRN Reason: FLUSH AFTER USING IV ACCESS Tamsulosin HCl (Flomax) 0.4 mg PO BID [facility] Last Admin: 08/17/18 08:17 Dose: 0.4 mg Terbutaline Sulfate (Brethine Inj) 1 mg SQ UNSCH PRN PRN Reason: For Extravasation Allergies Allergy/AdvReac Type Severity Reaction Status Date / Time No Known Allergies Allergy Verified 08/06/18 01:24 Home Medications Medication Instructions Recorded Confirmed Type aspirin 325 mg PO DAILY 06/01/18 06/01/18 History atorvastatin [Lipitor] 20 mg PO HS 06/01/18 08/06/18 History duloxetine [Cymbalta] 30 mg PO DAILY 06/01/18 06/01/18 History dutasteride [Avodart] 0.5 mg PO QPM 06/01/18 06/01/18 History gabapentin 300 mg PO Q6HR 06/01/18 06/01/18 History pantoprazole [Protonix] 40 mg PO DAILY 06/01/18 06/01/18 History tamsulosin [Flomax] 0.4 mg PO BID 06/01/18 08/06/18 History Physical Exam Vital signs: Vital Signs 08/16/18 15:00 08/16/18 16:00 08/16/18 16:26 Temperature 97.7 F Pulse Rate 67 69 Respiratory Rate 18 19 21 Blood Pressure 112/57 L 103/69 Pulse Oximetry 97 96 100 08/16/18 17:00 08/16/18 18:00 08/16/18 19:00 Temperature Pulse Rate 70 67 73 Respiratory Rate 19 27 H 20 Blood Pressure 151/64 H 137/63 123/59 L Pulse Oximetry 94 L 92 L 92 L 08/16/18 19:56 08/16/18 20:00 08/16/18 21:00 Temperature Pulse Rate 77 63 Respiratory Rate 18 21 24 Blood Pressure 164/71 H 152/65 H Pulse Oximetry 94 L 100 97 08/16/18 22:00 08/16/18 23:00 08/16/18 23:15 Temperature Pulse Rate 77 69 Respiratory Rate 19 19 21 Blood Pressure 136/68 126/60 Pulse Oximetry 95 95 98 08/17/18 00:00 08/17/18 01:00 08/17/18 02:00 Temperature Pulse Rate 74 72 74 Respiratory Rate 21 18 18 Blood Pressure 114/55 L 115/56 L 114/56 L Pulse Oximetry 93 L 94 L 94 L 08/17/18 03:00 08/17/18 04:00 08/17/18 04:13 Temperature Pulse Rate 74 78 Respiratory Rate 19 20 18 Blood Pressure 110/54 L 125/60 Pulse Oximetry 95 96 92 L 08/17/18 07:38 08/17/18 08:00 08/17/18 12:00 Temperature 97.7 F 98.5 F Pulse Rate 77 68 Respiratory Rate 18 24 18 Blood Pressure 75/58 L 104/55 L Pulse Oximetry 95 93 L 95 Intake & Output 08/16/18 08/17/18 08/17/18 18:59 06:59 18:59 Intake Total 960 / 960 750 / 750 Output Total 3550 / 3550 3200 / 3200 Balance -2590 / -2590 -2450 / -2450 Weight 145.1 kg Intake: IV 900 / 900 750 / 750 Bumex Inj 25 mg In 100 ml @ 0.5 100 / 100 MG/HR 2 mls/hr IV.CONT .Q24H [facility] Rx#:[id number] Heparin/D5W 25,000 U/250 mL 25, 250 / 250 000 unit In 250 ml @ Per Protocol IV.CONT TITRATE PRN Rx #:[id number] Maxipime Inj 1,000 MG In NS Inj 200 / 200 200 / 200 100 ML @ 200 mls/hr IV.SIG Q8H [facility] Rx#:[id number] Zyvox 600 mg Premix 300 ML @ 600 / 600 300 / 300 300 mls/hr IV.SIG Q12H [facility] Rx#: [id number] Tube Feeding 0 / 0 Tube Irrigant 60 / 60 Output: Urine Amount (Catheter) 3550 / 3550 3200 / 3200 Indwelling Urethral Catheter 3550 / 3550 3200 / 3200 Narrative: GENERAL: intubated, appears to follow commands. SKIN: Warm and dry. HEAD: Atraumatic. Normocephalic. ENT: No nasal bleeding or discharge. Mucous membranes pink and moist. NECK: Intubated CARDIOVASCULAR: Regular rate and rhythm. RESPIRATORY: CTA GASTROINTESTINAL: Abdomen soft, non-tender, nondistended. MUSCULOSKELETAL: No gross deformity. Edema of upper and lower extremities, more prominent on the upper extremities. NEUROLOGICAL:Mental status has improved. - Urinary Catheter Management Indwelling Urethral Catheter Cath placed during this visit: yes Reason for continuing: Acute urinary retention Insertion date: 08/11/18 Insertion time: 12:00 Results 08/17/18 04:08 08/17/18 04:08 Cardiac Enzymes 08/15/18 08/15/18 Range/Units 16:37 16:37 Troponin I Less than 0.02 L Cancelled (0.02-0.05) ng/mL Coagulation 08/16/18 08/17/18 Range/Units 03:30 04:08 APTT 51.2 H 46.9 H (24.3-30.1) sec CBC 08/16/18 08/17/18 Range/Units 03:30 04:08 WBC 7.7 8.4 (4.0-11.0) th/mm3 RBC 2.88 L 3.14 L (4.50-5.90) mil/mm3 Hgb 8.3 L 8.8 L (13.0-17.0) gm/dL Hct 24.9 L 26.9 L (39.0-51.0) % Plt Count 115 L 124 L (150-450) th/mm3 Comprehensive Metabolic Panel 10/21/18 10/22/18 10/23/18 Range/Units 16:37 03:30 04:08 Sodium 135 L 136 132 L (136-145) meq/L Potassium 4.6 4.2 3.3 L D (3.5-5.1) meq/L Chloride 97 L 97 L 87 L D (98-107) meq/L Carbon Dioxide 28.0 29.3 33.9 H (21.0-32.0) meq/L BUN 83 H 85 H 81 H (7-18) mg/dL Creatinine 2.42 H 2.32 H 2.48 H (0.60-1.30) mg/dL Calcium 8.4 L 9.0 9.2 (8.5-10.1) mg/dL Intake and Output 08/16/18 08/17/18 08/17/18 22:59 06:59 14:59 Intake Total 710 / 710 600 / 600 Output Total 3550 / 3550 3200 / 3200 Balance -2840 / -2840 -2600 / -2600 Intake: IV 650 / 650 600 / 600 Bumex Inj 25 mg In 100 ml @ 0.5 100 / 100 MG/HR 2 mls/hr IV.CONT .Q24H [facility] Rx#:[id number] Heparin/D5W 25,000 U/250 mL 25, 150 / 150 100 / 100 000 unit In 250 ml @ Per Protocol IV.CONT TITRATE PRN Rx #:[id number] Maxipime Inj 1,000 MG In NS Inj 100 / 100 200 / 200 100 ML @ 200 mls/hr IV.SIG Q8H [facility] Rx#:[id number] Zyvox 600 mg Premix 300 ML @ 300 / 300 300 / 300 300 mls/hr IV.SIG Q12H [facility] Rx#: [id number] Tube Feeding 0 / 0 Tube Irrigant 60 / 60 Output: Urine Amount (Catheter) 3550 / 3550 3200 / 3200 Indwelling Urethral Catheter 3550 / 3550 3200 / 3200 Other: Weight 145.1 kg - Imaging and Cardiology Imaging: Impressions Head MRI 08/16/18 00:00 CONCLUSION: 1. Remote left frontal mid convexity infarct. 2. Senescent changes with mild periventricular ischemic white matter demyelination. No acute abnormality. Specifically, no acute infarction or hemorrhage. Chest X-Ray 08/16/18 05:00 CONCLUSION: Diffuse pulmonary consolidation likely related to edema. These processes are worse at the bases and on the right. Assessment and Plan - Assessment (1) Respiratory failure Code(s): J96.90 - Respiratory failure, unspecified, unspecified whether with hypoxia or hypercapnia Status: Acute (2) PNA (pneumonia) Code(s): J18.9 - Pneumonia, unspecified organism Status: Acute (3) Pleural effusion Code(s): J90 - Pleural effusion, not elsewhere classified Status: Acute (4) Osteomyelitis of ankle and foot Code(s): M86.9 - Osteomyelitis, unspecified Status: Acute (5) Diastolic heart failure Code(s): I50.30 - Unspecified diastolic (congestive) heart failure Status: Acute (6) Dyspnea Code(s): R06.00 - Dyspnea, unspecified Status: Acute - Plan 1) Bilateral pleural effusions Bumex drip Chest tubes Diuresing well 2) Diastolic dysfunction by CHIKA 3) Left atrial appendage thrombus Started on heparin drip 4) Questionable AFib Will be on anti-coagulation due to thrombus No further work up 5) Agree with palliative care consultation Appears to be progressing slowly 6) Wide complex tachycardia Possible catecholamine stimulation on Dopamine vs Afib with aberrancy Not a candidate for ischemic evaluation, will continue to follow 7) Not tolerating CPAP at this time
[2018-08-17] MEDS: Bumetanide Inj 25 MG/100 ML BAG IV.CONT SCH (16:23)
[2018-08-17] MEDS: Finasteride 5 MG Tablet PO SCH (17:06)
[2018-08-17] MEDS ORDERED: DOPamine 800 MG/500 ML Premix 800 MG/500 ML PLAST..BAG IV.CONT PRN (21:45)
[2018-08-17] MEDS: DOPamine 400 MG/250 ML Premix 400 MG/250 ML BAG IV.CONT PRN (21:49)
[2018-08-18] MEDS: Oral Hygiene Kit OROPHARYNG SCH ×4 (00:33→17:03)
[2018-08-18] MEDS: Gabapentin 300 MG Capsule PO SCH ×5 (00:33→23:26)
[2018-08-18] MEDS: Insulin NovoLOG Aspart Correctional Sugar Inj SQ SCH ×5 (00:33→23:59)
[2018-08-18 05:39] LABS: Hemoglobin 8.9 gm/dL (13.0-17.0); Mean Corpuscular HGB Conc 33.1 % (32.0-36.0); Mean Corpuscular Hemoglobin 27.8 pg (27.0-34.0); Mean Platelet Volume 9.2 fL (7.0-11.0); Platelet Count 123 th/mm3 (150-450); Red Blood Count 3.21 mil/mm3 (4.50-5.90); Red Cell Distribution Width 16.8 % (11.6-17.2); White Blood Count 11.2 th/mm3 (4.0-11.0)
[2018-08-18 06:06] LABS: Calcium 8.8 mg/dL (8.5-10.1); Magnesium 2.3 mg/dL (1.5-2.5); Phosphorus 4.2 mg/dL (2.5-4.9)
[2018-08-18 06:32] LABS: Potassium 2.9 meq/L (3.5-5.1)
[2018-08-18] MEDS: Polyethylene Glycol 3350 17 GM Packet PO SCH ×2 (08:49→21:01)
[2018-08-18] MEDS: Heparin Drip 25,000 UNIT/250 ML BAG IV.CONT PRN ×2 (08:50→23:26)
[2018-08-18] MEDS: Senna/Docusate Sodium 8.6/50 MG Tablet PO SCH ×2 (08:53→20:59)
[2018-08-18] MEDS: Aspirin 325 MG Tablet PO SCH (08:54)
[2018-08-18] MEDS: amLODIPine 5 MG Tablet PO SCH (08:54)
[2018-08-18] MEDS: guaiFENesin 600 MG ER Tablet PO SCH ×2 (08:55→21:01)
[2018-08-18] MEDS: Chlorhexidine 0.12% Oral Kit 15 ML UDC OROPHARYNG SCH ×2 (08:55→20:58)
[2018-08-18] MEDS: Sodium Chloride 0.9% 2 ML Flush BID IV.FLUSH SCH ×2 (08:55→21:01)
[2018-08-18] MEDS: Insulin Detemir Inj 1,000 UNIT/10 ML Vial SQ SCH ×2 (08:55→21:01)
[2018-08-18] MEDS: Carboxymethylcellulose 0.5% Opth Drops 15 ML Bottle EACH EYE SCH ×2 (08:56→21:02)
--- NOTE | 2018-08-18 09:48 | P.PNCC ---
Subjective Subjective Remarks/Hospital Course: 73-year-old male with past medical history significant for morbid obesity, peripheral neuropathy, diabetes mellitus, hyperlipidemia and hypertension. Patient is a long-term resident of [facility] in reportedly is not very active and is mostly bedbound. Patient was brought into the emergency room by EMS from [facility] for shortness of breath and hypoxia. Per report patient had an episode of shortness of breath with O2 sats of 70% on room air however patient refused transport to the ER. Thereafter patient had another episode of shortness of breath and hypoxia. By this time patient had been treated with Zyvox for lower extremity wound for positive MRSA as well as recently started on Levaquin for pneumonia at the [place] [facility]. Patient has a PICC line in place and has been treated with IV antibiotics. On arrival his blood pressure was 145/63, heart rate of 81, O2 sats 97% on 10 L simple mask. His blood gas was unremarkable. His creatinine was 1.93 and previously in May 2018 was 1.83. His chest x-ray showed bilateral lung consolidation possible element of pulmonary edema as well as small bilateral pleural effusion. On 08/09 patient became more hypoxemic again requiring the placement on the BiPAP ventilator and transferred to ICU. Critical care services were consulted for management of respiratory failure. 08/10: Afebrile. Currently on 4 L nasal cannula saturations are 90%. Patient normally wears CPAP/BiPAP at home according to patient. Since seen by Dr. Slim Estevez previous hospitalization. SUBJECTIVE: 08/11: Reconsulted this patient remains on BiPAP. Still appears to be normal sinus rhythm. Echocardiogram revealed dilated LV/LVH, left atrial enlargement. Possible calcified lesion left coronary cusp. Currently on furosemide 40 mg IV twice daily. Likely source of ARDS will likely need intubation. 08/12: intubated yesterday. right chest tube placed with > 1L output. CXR improved on the right, but with persistence of left plural effusion. Also, transthoracic echocardiography has failed to have adequate visualization of cardiac windows to rule in or rule out cardiogenic source of hypoxia. 08/13: good diuresis again. left chest tube placed yesterday with 1100cc output yesterday. right chest tube with only 60mL output. CHIKA done yesterday with Grade III diastolic dysfunction as well as probable left atrial appendage thrombus: on anticoagulation. 08/14: Orally intubated on mechanical ventilation. 08/15: Remains sedated, orally intubated on mechanical ventilation. Worsening BUN/creatinine noted. 08/16: Off sedation, more awake today, following commands including blinking. Remains orally intubated on mechanical ventilation. Had nonsustained V. tach yesterday after being started on dopamine for bradycardia. Remains on anticoagulation with heparin. Head CT done yesterday was negative for any bleed. MRI brain done today with no acute infarct. 08/17: Off sedation, awake and alert. Remains orally intubated on mechanical ventilation. Apneic episodes on initiating CPAP trials this morning. 08/18: Drowsy, arousable, orally intubated on mechanical ventilation. Remains on Bumex drip. Daily CPAP trials. If patient has apneic episodes will use SIMV with pressure support. Objective Vital Signs / I&O: Vital Signs 08/17/18 10:00 08/17/18 11:00 08/17/18 12:00 Temperature 98.5 F Pulse Rate 56 L 64 68 Respiratory Rate 18 19 18 Blood Pressure 107/53 L 114/57 L 104/55 L Pulse Oximetry 95 96 95 08/17/18 13:00 08/17/18 14:00 08/17/18 15:00 Temperature Pulse Rate 68 62 65 Respiratory Rate 19 18 18 Blood Pressure 112/56 L 110/57 L Pulse Oximetry 96 97 96 08/17/18 15:01 08/17/18 15:07 08/17/18 15:08 Temperature Pulse Rate 65 65 69 Respiratory Rate 18 18 18 Blood Pressure 80/49 L 89/52 L 93/53 L Pulse Oximetry 96 96 97 08/17/18 15:56 08/17/18 16:00 08/17/18 17:00 Temperature 98.9 F Pulse Rate 68 76 Respiratory Rate 18 19 19 Blood Pressure 93/53 L Pulse Oximetry 968 H 98 100 08/17/18 18:00 08/17/18 18:01 08/17/18 19:00 Temperature Pulse Rate 61 62 64 Respiratory Rate 18 18 18 Blood Pressure 103/58 L 101/58 L Pulse Oximetry 97 96 93 L 08/17/18 20:00 08/17/18 20:15 08/17/18 21:00 Temperature Pulse Rate 66 68 Respiratory Rate 18 18 19 Blood Pressure 98/54 L Pulse Oximetry 93 L 97 95 08/17/18 21:01 08/17/18 22:00 08/17/18 23:00 Temperature Pulse Rate 66 66 63 Respiratory Rate 18 18 18 Blood Pressure 118/59 L 103/52 L 104/58 L Pulse Oximetry 95 94 L 94 L 08/17/18 23:40 08/18/18 00:00 08/18/18 01:00 Temperature Pulse Rate 75 62 Respiratory Rate 18 20 18 Blood Pressure 101/59 L 108/51 L Pulse Oximetry 95 92 L 92 L 08/18/18 02:00 08/18/18 02:01 08/18/18 03:00 Temperature Pulse Rate 61 65 63 Respiratory Rate 18 18 18 Blood Pressure 99/51 L 97/56 L Pulse Oximetry 96 96 97 08/18/18 04:00 08/18/18 04:14 08/18/18 08:10 Temperature Pulse Rate 64 Respiratory Rate 18 18 8 L Blood Pressure 97/51 L Pulse Oximetry 93 L 98 98 Intake & Output 08/17/18 08/18/18 08/18/18 18:59 06:59 18:59 Intake Total 632 / 632 983 / 983 100 / 100 Output Total 1350 / 1350 1150 / 1150 Balance -718 / -718 -167 / -167 100 / 100 Weight 145.1 kg Intake: IV 350 / 350 850 / 850 100 / 100 Intropin Inj 800 MG In NS Inj 500 / 500 480 ML @ 3 MCG/KG/MIN 17.51 mls /hr IV.CONT TITRATE PRN Rx#: [id number] Heparin/D5W 25,000 U/250 mL 25, 250 / 250 250 / 250 000 unit In 250 ml @ Per Protocol IV.CONT TITRATE PRN Rx #:[id number] Teflaro Inj 600 MG In NS Inj 100 / 100 100 / 100 100 / 100 100 ML @ 100 mls/hr IV.SIG Q8H [facility] Rx#:[id number] Tube Feeding 82 / 82 133 / 133 Water Bolus Amount 200 / 200 Output: Urine Amount (Catheter) 1350 / 1350 1150 / 1150 Indwelling Urethral Catheter 1350 / 1350 1150 / 1150 Result Diagrams: 08/18/18 04:09 08/18/18 04:09 Objective Remarks: GENERAL: 73-year-old male, lying in bed, intubated, sedated SKIN: Cool and dry HEAD: Atraumatic. Normocephalic. EYES: Pupils equal and round. No scleral icterus. No injection or drainage. ENT: No nasal bleeding or discharge. Mucous membranes pink and moist. NECK: Trachea midline. No JVD. CARDIOVASCULAR: Regular rate and rhythm. RESPIRATORY: on mech vent, Diminished breath sounds. No wheezing. right chest tube in place with serous output, no air leak. left chest tube in place, serous output. GASTROINTESTINAL: Abdomen obese and protuberant. no guarding. MUSCULOSKELETAL: Extremities with right lower extremity with destruction of the second/third/fourth digits foot to bone. Currently covered with Ujan bandage NEUROLOGICAL: RASS -1. awakens and follows commands. Assessment and Plan - Assessment and Plan Plan: Assessment: 73yM morbidly obese with refractory acute hypoxic and hypercarbic respiratory failure. Likely secondary to mixed systolic- and diastolic heart failure exacerbation. forced diuresis. JOSE worsening Neuro/Psych: Depression Peripheral neuropathy History of right frontal CVA Off all sedation. Fentanyl for sedation as needed. Follow neuro status. Neurology consult noted. Follow-up EEG. MRI brain done on 08/16 with no acute infarct. Head CT done on 08/15 with no ICH. Continue acetaminophen 650 every 6 hours as needed fever Morphine sulfate 2 mg IV every 4 hours as needed pain 6 or 10 Gabapentin 300 mg p.o. every 6 hours peripheral neuropathy Duloxetine 30 mg daily for depression continue CV: Essential hypertension Hyperlipidemia History of non-STEMI EF 35-40% Grade III Diastolic Dysfunction Acute Congestive Heart Failure Exacerbation, mixed systolic- and diastolic- type. Left atrial appendage thrombus Continue amlodipine 5 mg daily, carvedilol 3.125 mg twice daily and hydralazine 50 mg 3 times daily for hypertension Continue atorvastatin 20 mg daily for hyperlipidemia Last echo 06/12 revealed LVEF - hard to assess but suspect mildly impaired. Current echocardiogram 06/11 revealed EF around 55%. Dilated LV/LVH and left atrial enlargement. PAP 26 MAC. Possible left coronary cusp calcification. CHIKA 08/13: EF 35-40%, Grade III Diastolic Dysfunction, probable left atrial thrombus. continue bumex infusion at 0.5mg/hr metolazone 5mg po BID Low-dose dopamine for bradycardia as needed Resp: Acute hypoxic and hypercarbic respiratory failure- persistent OHS Bilateral pleural effusions Pulmonary edema intubated 06/11. severe bilateral pulmonary infiltrates as well as bilateral large pleural effusions likely cause is multifactorial- large cardiogenic pulmonary edema component right chest tube placed 08/11: keep to suction today left chest tube placed 08/12: keep to suction today Ventilator bundle Titrate to keep saturations greater than 90% Albuterol/ipratropium aerosols every 6 hours with albuterol aerosols every 2 hours as needed dyspnea GI: Gastroesophageal reflux disease Hypoalbuminemia Severe acute protein calorie malnutrition Glucerna 1.5 goal 60 cc an hour GI prophylaxis/home medication pantoprazole 40 mg daily Docusate sodium/senna 1 tablet twice daily for bowel regimen along with polythene glycol 17 g twice daily pre-albumin 12 on 08/13 : BPH Continue tamsulosin 0.4 mg daily for BPH Endo: Diabetes mellitus Currently on sliding scale insulin aspart medium protocol Insulin detemir 20 units twice daily TSH was 2.77 Renal: Acute kidney injury superimposed on CKD Chronic kidney disease stage II Renal ultrasound scan revealed increased echogenicity to the right kidney Creatinine continues to increase. Being diuresed. Nephrology consult requested 08/15 keep maldonado for accurate q1h I/Os. Monitor urine output Accurate I's and O's Heme: Thrombocytopenia Normocytic anemia Left Atrial appendage thrombus Monitor CBCs daily. Follow trends. No indication for transfusion of blood products at this time. therapeutic anticoagulation with heparin drip for ENID thrombus. 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 Fifth metatarsal head with destruction. Will likely need amputation Followed by podiatry. Access -Right upper extremity PICC line. Prophylaxis -GI -lansoprazole -DVT -heparin drip I did discuss current clinical status with patient's sister on 08/15 she voiced understanding with plan and was agreeable. Being followed by palliative care team to assist with deciding goals of therapy. Alternate CODE STATUS. Critical care time 35 minutes, exclusive of separately billable procedures.
--- NOTE | 2018-08-18 09:50 | P.PNID ---
Subjective Remarks: ID Coverage Mr. Meléndez is a 73-year-old male with past medical history significant for morbid obesity, peripheral neuropathy, diabetes mellitus, hyperlipidemia and hypertension. Patient is a long-term resident of [facility] in reportedly is not very active and is mostly bedbound. Patient was brought into the emergency room by EMS from [facility] for shortness of breath and hypoxia. Per report patient had an episode of shortness of breath with O2 sats of 70% on room air however patient refused transport to the ER. Thereafter patient had another episode of shortness of breath and hypoxia. By this time patient had been treated with Zyvox for lower extremity wound for positive MRSA as well as recently started on Levaquin for pneumonia at the [facility] facility. Patient has a PICC line in place and has been treated with IV antibiotics. Nurse taking care of the patient informs me that currently there is no blood draws from the PICC line but medications can be infused although with some difficulty. Due to concern for thrombosis at the site of PICC line I have ordered a Doppler which is pending at the present time. On arrival his blood pressure was 145 x 63, heart rate of 81, O2 sats 97% on 10 L simple mask. His blood gas was unremarkable. His creatinine was 1.93 and previously in May 2018 was 1.83. His chest x-ray showed bilateral lung consolidation possible element of pulmonary edema as well as small bilateral pleural effusion. He received 1 dose of Lasix in the ER. Infectious diseases consulted for evaluation and pneumonia as well as osteomyelitis. s/b Podiatry even if osteomyelitis it was likely partially treated prior to arrival. Patient refused amputation. Reviewed Podiatry no plans for surgery or biopsy and they dont think it is the source of infection,. Notes reviewed Awake, following On IMV, not in distress Temps ok BP ok, not on pressors Monitor shows AF, rate controlled [address], not output recorded Last CXR 08/16 no change in infiltrates and effusions Creatinine rising, good UO, on bumex drip, renal following Antibiotics: Teflaro Lines: Lines ok Past Medical History: Obesity Depression Diabetes Diabetes GERD (gastroesophageal reflux disease) HTN (hypertension) High cholesterol Neuropathy Allergies/Adverse Reactions: Allergies No Known Allergies Allergy (Verified 08/06/18 01:24) Objective Vital Signs 08/17/18 10:00 08/17/18 11:00 08/17/18 12:00 Temperature 98.5 F Pulse Rate 56 L 64 68 Respiratory Rate 18 19 18 Blood Pressure 107/53 L 114/57 L 104/55 L Pulse Oximetry 95 96 95 08/17/18 13:00 08/17/18 14:00 08/17/18 15:00 Temperature Pulse Rate 68 62 65 Respiratory Rate 19 18 18 Blood Pressure 112/56 L 110/57 L Pulse Oximetry 96 97 96 08/17/18 15:01 08/17/18 15:07 08/17/18 15:08 Temperature Pulse Rate 65 65 69 Respiratory Rate 18 18 18 Blood Pressure 80/49 L 89/52 L 93/53 L Pulse Oximetry 96 96 97 08/17/18 15:56 08/17/18 16:00 08/17/18 17:00 Temperature 98.9 F Pulse Rate 68 76 Respiratory Rate 18 19 19 Blood Pressure 93/53 L Pulse Oximetry 968 H 98 100 08/17/18 18:00 08/17/18 18:01 08/17/18 19:00 Temperature Pulse Rate 61 62 64 Respiratory Rate 18 18 18 Blood Pressure 103/58 L 101/58 L Pulse Oximetry 97 96 93 L 08/17/18 20:00 08/17/18 20:15 08/17/18 21:00 Temperature Pulse Rate 66 68 Respiratory Rate 18 18 19 Blood Pressure 98/54 L Pulse Oximetry 93 L 97 95 08/17/18 21:01 08/17/18 22:00 08/17/18 23:00 Temperature Pulse Rate 66 66 63 Respiratory Rate 18 18 18 Blood Pressure 118/59 L 103/52 L 104/58 L Pulse Oximetry 95 94 L 94 L 08/17/18 23:40 08/18/18 00:00 08/18/18 01:00 Temperature Pulse Rate 75 62 Respiratory Rate 18 20 18 Blood Pressure 101/59 L 108/51 L Pulse Oximetry 95 92 L 92 L 08/18/18 02:00 08/18/18 02:01 08/18/18 03:00 Temperature Pulse Rate 61 65 63 Respiratory Rate 18 18 18 Blood Pressure 99/51 L 97/56 L Pulse Oximetry 96 96 97 08/18/18 04:00 08/18/18 04:14 08/18/18 08:10 Temperature Pulse Rate 64 Respiratory Rate 18 18 8 L Blood Pressure 97/51 L Pulse Oximetry 93 L 98 98 Intake & Output 08/17/18 08/18/18 08/18/18 18:59 06:59 18:59 Intake Total 632 / 632 983 / 983 100 / 100 Output Total 1350 / 1350 1150 / 1150 Balance -718 / -718 -167 / -167 100 / 100 Weight 145.1 kg Intake: IV 350 / 350 850 / 850 100 / 100 Intropin Inj 800 MG In NS Inj 500 / 500 480 ML @ 3 MCG/KG/MIN 17.51 mls /hr IV.CONT TITRATE PRN Rx#: [id number] Heparin/D5W 25,000 U/250 mL 25, 250 / 250 250 / 250 000 unit In 250 ml @ Per Protocol IV.CONT TITRATE PRN Rx #:[id number] Teflaro Inj 600 MG In NS Inj 100 / 100 100 / 100 100 / 100 100 ML @ 100 mls/hr IV.SIG Q8H SHAHEED Rx#:[id number] Tube Feeding 82 / 82 133 / 133 Water Bolus Amount 200 / 200 Output: Urine Amount (Catheter) 1350 / 1350 1150 / 1150 Indwelling Urethral Catheter 1350 / 1350 1150 / 1150 08/15/18 17:15 Catheterized Urine Urine Culture - Preliminary Yeast - ID to follow 08/12/18 08:45 Fluid - Pleural fluid Gram Stain - Final 08/12/18 08:45 Fluid - Pleural fluid Body Fluid Culture - Final No growth in 72 hours (aerobically and anaerobically ) Lab - Hematology Results 08/17/18 08/18/18 04:08 04:09 WBC 8.4 11.2 H RBC 3.14 L 3.21 L Hgb 8.8 L 8.9 L Hct 26.9 L 27.0 L MCV 85.8 84.0 MCH 28.1 27.8 MCHC 32.7 33.1 RDW 16.5 16.8 Plt Count 124 L 123 L MPV 9.2 9.2 Lab - Chemistry Results 08/16/18 08/16/18 08/17/18 11:50 17:24 00:04 Sodium Potassium Chloride Carbon Dioxide Anion Gap BUN Creatinine Estimated GFR POC Glucose 257 H 300 H 331 H Random Glucose Calcium Phosphorus Magnesium 08/17/18 08/17/18 08/17/18 04:08 05:49 11:19 Sodium 132 L Potassium 3.3 L D Chloride 87 L D Carbon Dioxide 33.9 H Anion Gap 11 BUN 81 H Creatinine 2.48 H Estimated GFR 26 L POC Glucose 372 H 272 H Random Glucose 322 H D Calcium 9.2 Phosphorus 4.0 Magnesium 2.2 08/17/18 08/18/18 08/18/18 17:45 00:24 04:09 Sodium 134 L Potassium 2.9 L* Chloride 88 L Carbon Dioxide 33.0 H Anion Gap 13 BUN 85 H Creatinine 2.85 H Estimated GFR 22 L POC Glucose 281 H 277 H Random Glucose 207 H D Calcium 8.8 Phosphorus 4.2 Magnesium 2.3 08/18/18 05:52 Sodium Potassium Chloride Carbon Dioxide Anion Gap BUN Creatinine Estimated GFR POC Glucose 233 H Random Glucose Calcium Phosphorus Magnesium Imaging: ITS Impressions Foot X-Ray 08/06/18 00:00 CONCLUSION: Destructive changes at the fifth metatarsal head and possibly the fourth metatarsal head. Extremity Arterial Study 08/08/18 00:00 CONCLUSION: 1. Moderate reduction of the toe brachial indices bilaterally suggesting microangiopathic disease. 2. ABIs within the normal range bilaterally. MRI foot CONCLUSION: 1. Findings consistent with marrow edema and osteomyelitis involving the fourth and fifth metatarsals. The base of the fifth is spared. Proximal one third of the fourth is spared. Chest CT 08/11/18 13:44 CONCLUSION: 1. Diffuse bilateral pulmonary infiltrates and effusions. 2. Atherosclerosis. Venous Doppler Study 08/12/18 00:00 CONCLUSION: 1. The study is negative for lower extremity deep venous thrombosis. Head CT 08/15/18 09:27 CONCLUSION: 1. No acute hemorrhage or mass effect identified. 2. Focal encephalomalacia in the left frontal lobe. 3. Opacification of the mastoid air cells bilaterally which is new from the prior study consistent with acute mastoiditis. 4. Moderate atrophic change. Head MRI 08/16/18 00:00 CONCLUSION: 1. Remote left frontal mid convexity infarct. 2. Senescent changes with mild periventricular ischemic white matter demyelination. No acute abnormality. Specifically, no acute infarction or hemorrhage. Chest X-Ray 08/16/18 05:00 CONCLUSION: Diffuse pulmonary consolidation likely related to edema. These processes are worse at the bases and on the right. Physical Exam: GENERAL: Morbid Obesity, not in acute distress. Awake following SKIN: Cool and dry, no generalized rash. Edema of both UE HEAD: Atraumatic. Normocephalic. No temporal or scalp tenderness. EYES: Pupils equal round and reactive. Scleral icterus. No injection or drainage. No petechia ENT: Intubated. NO nasal discharge NECK: Trachea midline. Supple, nontender, no meningeal signs. CARDIOVASCULAR: HS audible. Irregular rhythm RESPIRATORY: Decreased breath sounds bilaterally, [address], not much output. GASTROINTESTINAL: Abdomen soft nontender. Obese and not distended MUSCULOSKELETAL: Right foot with dry dressing NEUROLOGICAL: Alert oriented 3. Nonfocal. Psych cooperative IV line sites ok. Assessment and Plan - Plan Fluid overload. Less likely to be Health care associated pneumonia Osteomyelitis of right foot. PICC line in place r/o infection, thrombus. Morbid Obesity Sleep apnea based on clinical picture. Recs: Continue Teflaro IV (will cover MRSA and some gram negatives) Weaning per CCM, has not tolerated CPAP On bumex drip to try and help with fluid overload UA with some pyuria, and C/S with yeast (has maldonado in place) WBC also higher, will follow Will add Diflucan Follow C/S Monitor progress
[2018-08-18] MEDS: Potassium Chlor 20 mEq Premix 20 MEQ/100 ML PIGGYBACK IV.SIG SCH ×4 (10:26→16:46)
--- NOTE | 2018-08-18 10:26 | P.PNNP ---
Subjective Interval history: Remains on the ventilator. Non oliguric. Creatinine is higher. On Bumex drip. Physical Exam Vital signs: Vital Signs 08/17/18 11:00 08/17/18 12:00 08/17/18 13:00 Temperature 98.5 F Pulse Rate 64 68 68 Respiratory Rate 19 18 19 Blood Pressure 114/57 L 104/55 L 112/56 L Pulse Oximetry 96 95 96 08/17/18 14:00 08/17/18 15:00 08/17/18 15:01 Temperature Pulse Rate 62 65 65 Respiratory Rate 18 18 18 Blood Pressure 110/57 L 80/49 L Pulse Oximetry 97 96 96 08/17/18 15:07 08/17/18 15:08 08/17/18 15:56 Temperature Pulse Rate 65 69 Respiratory Rate 18 18 18 Blood Pressure 89/52 L 93/53 L Pulse Oximetry 96 97 968 H 08/17/18 16:00 08/17/18 17:00 08/17/18 18:00 Temperature 98.9 F Pulse Rate 68 76 61 Respiratory Rate 19 19 18 Blood Pressure 93/53 L Pulse Oximetry 98 100 97 08/17/18 18:01 08/17/18 19:00 08/17/18 20:00 Temperature Pulse Rate 62 64 66 Respiratory Rate 18 18 18 Blood Pressure 103/58 L 101/58 L 98/54 L Pulse Oximetry 96 93 L 93 L 08/17/18 20:15 08/17/18 21:00 08/17/18 21:01 Temperature Pulse Rate 68 66 Respiratory Rate 18 19 18 Blood Pressure 118/59 L Pulse Oximetry 97 95 95 08/17/18 22:00 08/17/18 23:00 08/17/18 23:40 Temperature Pulse Rate 66 63 Respiratory Rate 18 18 18 Blood Pressure 103/52 L 104/58 L Pulse Oximetry 94 L 94 L 95 08/18/18 00:00 08/18/18 01:00 08/18/18 02:00 Temperature Pulse Rate 75 62 61 Respiratory Rate 20 18 18 Blood Pressure 101/59 L 108/51 L Pulse Oximetry 92 L 92 L 96 08/18/18 02:01 08/18/18 03:00 08/18/18 04:00 Temperature Pulse Rate 65 63 64 Respiratory Rate 18 18 18 Blood Pressure 99/51 L 97/56 L 97/51 L Pulse Oximetry 96 97 93 L 08/18/18 04:14 08/18/18 08:10 Temperature Pulse Rate Respiratory Rate 18 8 L Blood Pressure Pulse Oximetry 98 98 Intake & Output 08/17/18 08/18/18 08/18/18 18:59 06:59 18:59 Intake Total 632 / 632 983 / 983 100 / 100 Output Total 1350 / 1350 1150 / 1150 Balance -718 / -718 -167 / -167 100 / 100 Weight 145.1 kg Intake: IV 350 / 350 850 / 850 100 / 100 Intropin Inj 800 MG In NS Inj 500 / 500 480 ML @ 3 MCG/KG/MIN 17.51 mls /hr IV.CONT TITRATE PRN Rx#: [id number] Heparin/D5W 25,000 U/250 mL 25, 250 / 250 250 / 250 000 unit In 250 ml @ Per Protocol IV.CONT TITRATE PRN Rx #:[id number] Teflaro Inj 600 MG In NS Inj 100 / 100 100 / 100 100 / 100 100 ML @ 100 mls/hr IV.SIG Q8H SHAHEED Rx#:[id number] Tube Feeding 82 / 82 133 / 133 Water Bolus Amount 200 / 200 Output: Urine Amount (Catheter) 1350 / 1350 1150 / 1150 Indwelling Urethral Catheter 1350 / 1350 1150 / 1150 Narrative: GENERAL: intubated, opens eyes. HEAD: Atraumatic. Normocephalic. ENT: No nasal bleeding or discharge. Mucous membranes pink and moist. NECK: no lymphadenopathy, no thyromegaly. CARDIOVASCULAR: Regular rate and rhythm. RESPIRATORY: CTA GASTROINTESTINAL: Abdomen soft, non-tender, nondistended. Upper extremity edema. Lower extremity edema has improved. - Urinary Catheter Management Indwelling Urethral Catheter Cath placed during this visit: yes Reason for continuing: Acute urinary retention Insertion date: 08/11/18 Insertion time: 12:00 Assessment and Plan - Assessment (1) Acute kidney injury Code(s): N17.9 - Acute kidney failure, unspecified Status: Acute Plan: Responding to Bumex drip. No need for dialysis today. Avoid nephrotoxic agents. Monitor urine output and renal function. Replace potassium. (2) Respiratory failure Code(s): J96.90 - Respiratory failure, unspecified, unspecified whether with hypoxia or hypercapnia Status: Acute Plan: Vent support. Antibiotics: seen by ID, on Teflaro bilateral chest tubes. On heparin for anticoagulation as CHIKA revealed possible left atrial appendage thrombus.
[2018-08-18] MEDS: Fluconazole 100 MG Tablet PO SCH (11:38)
--- NOTE | 2018-08-18 13:41 | P.PNPAL ---
Reason for Visit Reason for visit: a. To assist with evaluation and management of symptoms including: Pain, dyspnea, debility. b. To assist medical decision maker(s) with: better understanding of current medical conditions; weighing benefits/burdens of medical treatment options; making medical treatment decisions. Subjective Subjective/Interval History: Patient seen and examined in ICU. No family or friends at bedside. Discussed with Dr. Bazan and nurses, Bernadette and Gwen. Patient remains on mechanical ventilator SIMV 40% FiO2, 6 PEEP. Off sedation, opens eyes, follows commands. He is more alert today. Bilateral chest tubes remain in place. Remains on heparin and Bumex drips. Creatinine has increased from 2.48 to 2.85. 08/15/18 urine culture + sarah glabrata. He smiles when I tell him I have been speaking with his sisters, Lindsey and Frances. He does not remember his sister Frances being her this past weekend. I introduced myself and my role. I explained I have been talking to his sisters and that Lindsey has been helping make his medical decisions as per his written wishes. He nods yes and mouths thank you. I asked if he wanted me to review his medial problems , he nods yes. I reviewed need for mech vent. He grimaces when I advised he is on vent. He nods yes to pain in right arm, throat and back, no to pain in other areas. I advised status of need for vent and that he may need tracheostomy and PEG tube, he opens his eyes wide and shakes his head no. I told him about my prior conversations with his sister that indicated he did not want to be prolonged my tubes and machines, he nods in agreement. I explained without trach and PEG he could , but we would ensure he peacefully and comfortably. He squeezes my hand and mouths thank you. He indicates though nodding and mouthing words he would not want trach and PEG even if it meant he . Discussed with nursing staff. Left message for his sisterLindsey ([facility]) to return call for medical update and conversation with patient. Family/Friend Interactions: Left message for Lindsey urias to return call. Called sisterFrances to provide update, left message. Advance Directives Health Care Surrogate: Copy in medical record Advance Directives Date on File: 06/15/18 Health Care Surrogate Name and Number: Lindsey Chand, sister: [phone] Significant change in goals:: NO CODE. Patient idicates he would not want trach and PEG. Objective Vital Signs: Vital Signs 08/17/18 14:00 08/17/18 15:00 08/17/18 15:01 Temperature Pulse Rate 62 65 65 Respiratory Rate 18 18 18 Blood Pressure 110/57 L 80/49 L Pulse Oximetry 97 96 96 08/17/18 15:07 08/17/18 15:08 08/17/18 15:56 Temperature Pulse Rate 65 69 Respiratory Rate 18 18 18 Blood Pressure 89/52 L 93/53 L Pulse Oximetry 96 97 968 H 08/17/18 16:00 08/17/18 17:00 08/17/18 18:00 Temperature 98.9 F Pulse Rate 68 76 61 Respiratory Rate 19 19 18 Blood Pressure 93/53 L Pulse Oximetry 98 100 97 08/17/18 18:01 08/17/18 19:00 08/17/18 20:00 Temperature Pulse Rate 62 64 66 Respiratory Rate 18 18 18 Blood Pressure 103/58 L 101/58 L 98/54 L Pulse Oximetry 96 93 L 93 L 08/17/18 20:15 08/17/18 21:00 08/17/18 21:01 Temperature Pulse Rate 68 66 Respiratory Rate 18 19 18 Blood Pressure 118/59 L Pulse Oximetry 97 95 95 08/17/18 22:00 08/17/18 23:00 08/17/18 23:40 Temperature Pulse Rate 66 63 Respiratory Rate 18 18 18 Blood Pressure 103/52 L 104/58 L Pulse Oximetry 94 L 94 L 95 08/18/18 00:00 08/18/18 01:00 08/18/18 02:00 Temperature Pulse Rate 75 62 61 Respiratory Rate 20 18 18 Blood Pressure 101/59 L 108/51 L Pulse Oximetry 92 L 92 L 96 08/18/18 02:01 08/18/18 03:00 08/18/18 04:00 Temperature Pulse Rate 65 63 64 Respiratory Rate 18 18 18 Blood Pressure 99/51 L 97/56 L 97/51 L Pulse Oximetry 96 97 93 L 08/18/18 04:14 08/18/18 05:00 08/18/18 06:00 Temperature Pulse Rate 65 66 Respiratory Rate 18 19 19 Blood Pressure 101/55 L 118/53 L Pulse Oximetry 98 91 L 93 L 08/18/18 07:00 08/18/18 08:00 08/18/18 08:10 Temperature 98.0 F Pulse Rate 71 57 L Respiratory Rate 20 19 8 L Blood Pressure 93/50 L 92/55 L Pulse Oximetry 93 L 94 L 98 08/18/18 09:00 08/18/18 09:01 08/18/18 10:00 Temperature Pulse Rate 65 62 64 Respiratory Rate 16 19 13 Blood Pressure 111/51 L Pulse Oximetry 96 96 98 08/18/18 10:01 08/18/18 11:00 08/18/18 11:33 Temperature Pulse Rate 61 61 Respiratory Rate 8 L 12 8 L Blood Pressure 89/53 L 96/53 L Pulse Oximetry 97 98 99 Intake & Output 08/17/18 08/18/18 08/18/18 18:59 06:59 18:59 Intake Total 632 / 632 983 / 983 200 / 200 Output Total 1350 / 1350 1150 / 1150 Balance -718 / -718 -167 / -167 200 / 200 Weight 145.1 kg Intake: IV 350 / 350 850 / 850 200 / 200 Intropin Inj 800 MG In NS Inj 500 / 500 480 ML @ 3 MCG/KG/MIN 17.51 mls /hr IV.CONT TITRATE PRN Rx#: [id number] Heparin/D5W 25,000 U/250 mL 25, 250 / 250 250 / 250 000 unit In 250 ml @ Per Protocol IV.CONT TITRATE PRN Rx #:[id number] Teflaro Inj 600 MG In NS Inj 100 / 100 100 / 100 100 / 100 100 ML @ 100 mls/hr IV.SIG Q8H SHAHEED Rx#:[id number] KCl 20 mEq Premix Inj 20 meq In 100 / 100 100 ml @ 50 mls/hr IV.SIG Q2H SHAHEED Rx#:[id number] Tube Feeding 82 / 82 133 / 133 Water Bolus Amount 200 / 200 Output: Urine Amount (Catheter) 1350 / 1350 1150 / 1150 Indwelling Urethral Catheter 1350 / 1350 1150 / 1150 Physical Exam: CONSTITUTIONAL/GENERAL: This is a morbidly obese gentleman, critically ill patient, on [facility] vent. TUBES/LINES/DRAINS: ETT, OG, PIV right, PIV left upper, bilateral chest tubes, podus boot on right. SKIN: Ecchymoses on upper extremities. Dressing noted on right foot. Scabs noted on right hand. Skin temperature cool. ENT: Grossly normal hearing, opens eyes to voice. Throat difficult to visualize due to tubes. CARDIOVASCULAR: S1, S2, irregular, distant heart tones. RESPIRATORY/CHEST: On mech vent, diminished breath sounds bilaterally. GASTROINTESTINAL: Abdomen protuberant, soft. No guarding. Bowel sounds present. GENITOURINARY: Without palpable bladder distension. Greer to bedside drainage. MUSCULOSKELETAL: Right foot with dressing in place. Podus boot on right in place. NEUROLOGICAL: Off sedation, opens eyes, tracking, following commands, nods yes/ no to questions. Mouthing words appropriately. PSYCHIATRIC: Awakens easily, calm. Diagnostic Tests Laboratory: Laboratory Results - last 72 hr 08/15/18 08/15/18 08/15/18 16:37 16:37 16:37 WBC RBC Hgb Hct MCV MCH MCHC RDW Plt Count MPV APTT Puncture Site Patient Temperature O2 Saturation ABG pH ABG pCO2 ABG pO2 ABG HCO3 ABG O2 Content ABG Base Excess ABG Methemoglobin Parker Test Hemoglobin Carboxyhemoglobin O2 Delivery Device Vent Setting Inspired O2 Critical Value Sodium 135 L Potassium 4.6 Chloride 97 L Carbon Dioxide 28.0 Anion Gap 10 BUN 83 H Creatinine 2.42 H Estimated GFR 26 L POC Glucose Random Glucose 259 H Calcium 8.4 L Phosphorus 4.2 Magnesium 2.3 Total Creatine Kinase 206 Cancelled Troponin I Less than 0.02 L Cancelled Urine Color Urine Clarity Urine pH Ur Specific [place] Urine Protein Urine Glucose (UA) Urine Ketones Urine Occult Blood Urine Nitrate Urine Bilirubin Urine Urobilinogen Ur Leukocyte Esterase Urine RBC Urine WBC Ur Squamous Epith Cells Amorphous Sediment Urine Bacteria Urine Mucus Micro UA Comment Ur Microscopic Review Urine Culture Comments 08/15/18 08/15/18 08/15/18 17:15 17:50 20:36 WBC RBC Hgb Hct MCV MCH MCHC RDW Plt Count MPV APTT Puncture Site Patient Temperature O2 Saturation ABG pH ABG pCO2 ABG pO2 ABG HCO3 ABG O2 Content ABG Base Excess ABG Methemoglobin Parker Test Hemoglobin Carboxyhemoglobin O2 Delivery Device Vent Setting Inspired O2 Critical Value Sodium Potassium Chloride Carbon Dioxide Anion Gap BUN Creatinine Estimated GFR POC Glucose 256 H 261 H Random Glucose Calcium Phosphorus Magnesium Total Creatine Kinase Troponin I Urine Color Straw Urine Clarity Hazy H Urine pH 5.0 Ur Specific [place] 1.006 Urine Protein Negative Urine Glucose (UA) Negative Urine Ketones Negative Urine Occult Blood Moderate H Urine Nitrate Negative Urine Bilirubin Negative Urine Urobilinogen Less than 2 Ur Leukocyte Esterase Small H Urine RBC 1 Urine WBC 32 H Ur Squamous Epith Cells 1 Amorphous Sediment Rare H Urine Bacteria Rare H Urine Mucus Few H Micro UA Comment Culture indicated Ur Microscopic Review Not Reportable Urine Culture Comments Culture indicated 08/15/18 08/16/18 08/16/18 23:51 03:30 03:30 WBC 7.7 RBC 2.88 L Hgb 8.3 L Hct 24.9 L MCV 86.4 MCH 28.9 MCHC 33.4 RDW 16.9 Plt Count 115 L MPV 9.5 APTT 51.2 H Puncture Site Patient Temperature O2 Saturation ABG pH ABG pCO2 ABG pO2 ABG HCO3 ABG O2 Content ABG Base Excess ABG Methemoglobin Parker Test Hemoglobin Carboxyhemoglobin O2 Delivery Device Vent Setting Inspired O2 Critical Value Sodium Potassium Chloride Carbon Dioxide Anion Gap BUN Creatinine Estimated GFR POC Glucose 252 H Random Glucose Calcium Phosphorus Magnesium Total Creatine Kinase Troponin I Urine Color Urine Clarity Urine pH Ur Specific [place] Urine Protein Urine Glucose (UA) Urine Ketones Urine Occult Blood Urine Nitrate Urine Bilirubin Urine Urobilinogen Ur Leukocyte Esterase Urine RBC Urine WBC Ur Squamous Epith Cells Amorphous Sediment Urine Bacteria Urine Mucus Micro UA Comment Ur Microscopic Review Urine Culture Comments 08/16/18 08/16/18 08/16/18 03:30 05:19 06:00 WBC RBC Hgb Hct MCV MCH MCHC RDW Plt Count MPV APTT Puncture Site Left radial Patient Temperature 98.6 O2 Saturation 94 ABG pH 7.48 H ABG pCO2 39 ABG pO2 81 ABG HCO3 29 H ABG O2 Content 11.1 L ABG Base Excess 5.1 H ABG Methemoglobin 1.7 Parker Test Present Hemoglobin 8.3 L Carboxyhemoglobin 1.3 O2 Delivery Device Vent Vent Setting Prvc/ac Inspired O2 40 Critical Value No Sodium 136 Potassium 4.2 Chloride 97 L Carbon Dioxide 29.3 Anion Gap 10 BUN 85 H Creatinine 2.32 H Estimated GFR 28 L POC Glucose 252 H Random Glucose 197 H Calcium 9.0 Phosphorus 4.2 Magnesium 2.4 Total Creatine Kinase Troponin I Urine Color Urine Clarity Urine pH Ur Specific [place] Urine Protein Urine Glucose (UA) Urine Ketones Urine Occult Blood Urine Nitrate Urine Bilirubin Urine Urobilinogen Ur Leukocyte Esterase Urine RBC Urine WBC Ur Squamous Epith Cells Amorphous Sediment Urine Bacteria Urine Mucus Micro UA Comment Ur Microscopic Review Urine Culture Comments 08/16/18 08/16/18 08/17/18 11:50 17:24 00:04 WBC RBC Hgb Hct MCV MCH MCHC RDW Plt Count MPV APTT Puncture Site Patient Temperature O2 Saturation ABG pH ABG pCO2 ABG pO2 ABG HCO3 ABG O2 Content ABG Base Excess ABG Methemoglobin Parker Test Hemoglobin Carboxyhemoglobin O2 Delivery Device Vent Setting Inspired O2 Critical Value Sodium Potassium Chloride Carbon Dioxide Anion Gap BUN Creatinine Estimated GFR POC Glucose 257 H 300 H 331 H Random Glucose Calcium Phosphorus Magnesium Total Creatine Kinase Troponin I Urine Color Urine Clarity Urine pH Ur Specific [place] Urine Protein Urine Glucose (UA) Urine Ketones Urine Occult Blood Urine Nitrate Urine Bilirubin Urine Urobilinogen Ur Leukocyte Esterase Urine RBC Urine WBC Ur Squamous Epith Cells Amorphous Sediment Urine Bacteria Urine Mucus Micro UA Comment Ur Microscopic Review Urine Culture Comments 08/17/18 08/17/18 08/17/18 04:08 04:08 04:08 WBC 8.4 RBC 3.14 L Hgb 8.8 L Hct 26.9 L MCV 85.8 MCH 28.1 MCHC 32.7 RDW 16.5 Plt Count 124 L MPV 9.2 APTT 46.9 H Puncture Site Patient Temperature O2 Saturation ABG pH ABG pCO2 ABG pO2 ABG HCO3 ABG O2 Content ABG Base Excess ABG Methemoglobin Parker Test Hemoglobin Carboxyhemoglobin O2 Delivery Device Vent Setting Inspired O2 Critical Value Sodium 132 L Potassium 3.3 L D Chloride 87 L D Carbon Dioxide 33.9 H Anion Gap 11 BUN 81 H Creatinine 2.48 H Estimated GFR 26 L POC Glucose Random Glucose 322 H D Calcium 9.2 Phosphorus 4.0 Magnesium 2.2 Total Creatine Kinase Troponin I Urine Color Urine Clarity Urine pH Ur Specific [place] Urine Protein Urine Glucose (UA) Urine Ketones Urine Occult Blood Urine Nitrate Urine Bilirubin Urine Urobilinogen Ur Leukocyte Esterase Urine RBC Urine WBC Ur Squamous Epith Cells Amorphous Sediment Urine Bacteria Urine Mucus Micro UA Comment Ur Microscopic Review Urine Culture Comments 08/17/18 08/17/18 08/17/18 05:49 11:19 17:45 WBC RBC Hgb Hct MCV MCH MCHC RDW Plt Count MPV APTT Puncture Site Patient Temperature O2 Saturation ABG pH ABG pCO2 ABG pO2 ABG HCO3 ABG O2 Content ABG Base Excess ABG Methemoglobin Parker Test Hemoglobin Carboxyhemoglobin O2 Delivery Device Vent Setting Inspired O2 Critical Value Sodium Potassium Chloride Carbon Dioxide Anion Gap BUN Creatinine Estimated GFR POC Glucose 372 H 272 H 281 H Random Glucose Calcium Phosphorus Magnesium Total Creatine Kinase Troponin I Urine Color Urine Clarity Urine pH Ur Specific [place] Urine Protein Urine Glucose (UA) Urine Ketones Urine Occult Blood Urine Nitrate Urine Bilirubin Urine Urobilinogen Ur Leukocyte Esterase Urine RBC Urine WBC Ur Squamous Epith Cells Amorphous Sediment Urine Bacteria Urine Mucus Micro UA Comment Ur Microscopic Review Urine Culture Comments 08/18/18 08/18/18 08/18/18 00:24 04:09 04:09 WBC 11.2 H RBC 3.21 L Hgb 8.9 L Hct 27.0 L MCV 84.0 MCH 27.8 MCHC 33.1 RDW 16.8 Plt Count 123 L MPV 9.2 APTT 46.0 H Puncture Site Patient Temperature O2 Saturation ABG pH ABG pCO2 ABG pO2 ABG HCO3 ABG O2 Content ABG Base Excess ABG Methemoglobin Parker Test Hemoglobin Carboxyhemoglobin O2 Delivery Device Vent Setting Inspired O2 Critical Value Sodium Potassium Chloride Carbon Dioxide Anion Gap BUN Creatinine Estimated GFR POC Glucose 277 H Random Glucose Calcium Phosphorus Magnesium Total Creatine Kinase Troponin I Urine Color Urine Clarity Urine pH Ur Specific [place] Urine Protein Urine Glucose (UA) Urine Ketones Urine Occult Blood Urine Nitrate Urine Bilirubin Urine Urobilinogen Ur Leukocyte Esterase Urine RBC Urine WBC Ur Squamous Epith Cells Amorphous Sediment Urine Bacteria Urine Mucus Micro UA Comment Ur Microscopic Review Urine Culture Comments 08/18/18 08/18/18 08/18/18 04:09 05:52 11:41 WBC RBC Hgb Hct MCV MCH MCHC RDW Plt Count MPV APTT Puncture Site Patient Temperature O2 Saturation ABG pH ABG pCO2 ABG pO2 ABG HCO3 ABG O2 Content ABG Base Excess ABG Methemoglobin Parker Test Hemoglobin Carboxyhemoglobin O2 Delivery Device Vent Setting Inspired O2 Critical Value Sodium 134 L Potassium 2.9 L* Chloride 88 L Carbon Dioxide 33.0 H Anion Gap 13 BUN 85 H Creatinine 2.85 H Estimated GFR 22 L POC Glucose 233 H 273 H Random Glucose 207 H D Calcium 8.8 Phosphorus 4.2 Magnesium 2.3 Total Creatine Kinase Troponin I Urine Color Urine Clarity Urine pH Ur Specific [place] Urine Protein Urine Glucose (UA) Urine Ketones Urine Occult Blood Urine Nitrate Urine Bilirubin Urine Urobilinogen Ur Leukocyte Esterase Urine RBC Urine WBC Ur Squamous Epith Cells Amorphous Sediment Urine Bacteria Urine Mucus Micro UA Comment Ur Microscopic Review Urine Culture Comments Result Diagrams: 08/18/18 04:09 08/18/18 04:09 Microbiology: Microbiology 08/15/18 17:15 Urine Culture - Final Catheterized Urine Sarah glabrata Imaging: Foot X-Ray 08/06/18 00:00 CONCLUSION: Destructive changes at the fifth metatarsal head and possibly the fourth metatarsal head. Extremity Arterial Study 08/08/18 00:00 CONCLUSION: 1. Moderate reduction of the toe brachial indices bilaterally suggesting microangiopathic disease. 2. ABIs within the normal range bilaterally. Foot MRI 08/08/18 00:00 CONCLUSION: 1. Findings consistent with marrow edema and osteomyelitis involving the fourth and fifth metatarsals. The base of the fifth is spared. Proximal one third of the fourth is spared. Chest CT 08/11/18 13:44 CONCLUSION: 1. Diffuse bilateral pulmonary infiltrates and effusions. 2. Atherosclerosis. Venous Doppler Study 08/12/18 00:00 CONCLUSION: 1. The study is negative for lower extremity deep venous thrombosis. Head CT 08/15/18 09:27 CONCLUSION: 1. No acute hemorrhage or mass effect identified. 2. Focal encephalomalacia in the left frontal lobe. 3. Opacification of the mastoid air cells bilaterally which is new from the prior study consistent with acute mastoiditis. 4. Moderate atrophic change. . Head MRI 08/16/18 00:00 CONCLUSION: 1. Remote left frontal mid convexity infarct. 2. Senescent changes with mild periventricular ischemic white matter demyelination. No acute abnormality. Specifically, no acute infarction or hemorrhage. Chest X-Ray 08/16/18 05:00 CONCLUSION: Diffuse pulmonary consolidation likely related to edema. These processes are worse at the bases and on the right. Procedures: * Bilateral chest tubes * 08/11/18 - Intubated. Assessment and Plan - Disease Oriented Problem List (1) Diastolic heart failure (2) PNA (pneumonia) (3) Pleural effusion (4) Osteomyelitis of ankle and foot (5) Kidney disease (6) Morbid obesity (7) Diabetes (8) Hypertension (9) JOSE (acute kidney injury) (10) SHEELA (obstructive sleep apnea) (11) COPD (chronic obstructive pulmonary disease) (12) Thrombus of left atrial appendage - Symptom Scale (1) Pain 0-10 Scale: Unable to quantify (2) Dyspnea 0-10 Scale: Unable to quantify (3) Debility 0-10 Scale: Unable to quantify Pertinent Non-Medical Issues: Psychosocial: . Supported by his 2 sisters, Lindsey and Frances who live in [place]. Spiritual: [employer] visits requested. Legal: Patient is not capacitated to make his own health care decisions, uncertain if he will regain capacity. Called [facility] to see if they have any written advance directives, copy of written designation of health care surrogate received dated 06/15/18 naming his sister, Lindsey Chand as health care surrogate # [phone]. Ethical issues impacting care: No known concerns at this time. Important Contacts: * Lindsey Chand, sister/ [facility]: [phone] * Ria Alegria, sister: [phone] Prognosis: Overall prognosis appears poor for meaningful recovery. Code Status: No Code DNR Plan: * Patient is not capacitated to make his own health care decisions, uncertain if he will regain capacity. Called [facility] to see if they have any written advance directives, copy of written designation of health care surrogate received dated 06/15/18 naming his sister, Lindsey Chand as health care surrogate # [phone]. * NO CODE. * LEft message for Lindsey urias to return call for medical update. Patient indicates he would not want trach/PEG today during my visit even if it means he would . * Discussed with Dr. Bazan and nurse, Reji. * Family does NOT want any information shared with friends of patient, including but not limited to Elsie. * SYMPTOMS: Pain: due to chronic debility, osteomyelitis, wounds, pneumonia, tubes, restraints, etc. No obvious signs of pain today, on fentanyl. Will continue to monitor. Dyspnea: post [facility] not breathing over. No new medication recommendations at this time. * Palliative care will continue to follow to assist with symptom management and clarification of goals of medical treatment as needed. Attestation Attestation: To help prompt me to consider important information that might be impacting today's encounter and assessment, information from prior notes written by myself or my colleagues may have been "brought forward" into today's note. My signature on this note, however, is an attestation that I personally performed the exam, history, and/or decision-making noted today, and, unless otherwise indicated, the interactions with patient, family, and staff as well as the review of records all occurred today. I also attest that the listed assessment and stated plan reflect my best clinical judgment today based on the combination of historical information, prior notes, and today's exam/ interactions. 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
[2018-08-18] MEDS: Bumetanide Inj 25 MG/100 ML BAG IV.CONT SCH (17:02)
[2018-08-18] MEDS: Finasteride 5 MG Tablet PO SCH (17:02)
--- NOTE | 2018-08-18 17:43 | P.PNPL ---
Subjective Interval history: 73 YOWM with COPD,SHEELA,Resp insuff Developed RF, intubated CT chest showed Bilat infilt and pl eff Does't tolerate CPAP, becomes Apnoic Off sedation On Dopamine 1 Mcg DNR now Did't tolerate CPAP On SIMV Physical Exam Vital signs: Vital Signs 08/17/18 18:00 08/17/18 18:01 08/17/18 19:00 Temperature Pulse Rate 61 62 64 Respiratory Rate 18 18 18 Blood Pressure 103/58 L 101/58 L Pulse Oximetry 97 96 93 L 08/17/18 20:00 08/17/18 20:15 08/17/18 21:00 Temperature Pulse Rate 66 68 Respiratory Rate 18 18 19 Blood Pressure 98/54 L Pulse Oximetry 93 L 97 95 08/17/18 21:01 08/17/18 22:00 08/17/18 23:00 Temperature Pulse Rate 66 66 63 Respiratory Rate 18 18 18 Blood Pressure 118/59 L 103/52 L 104/58 L Pulse Oximetry 95 94 L 94 L 08/17/18 23:40 08/18/18 00:00 08/18/18 01:00 Temperature Pulse Rate 75 62 Respiratory Rate 18 20 18 Blood Pressure 101/59 L 108/51 L Pulse Oximetry 95 92 L 92 L 08/18/18 02:00 08/18/18 02:01 08/18/18 03:00 Temperature Pulse Rate 61 65 63 Respiratory Rate 18 18 18 Blood Pressure 99/51 L 97/56 L Pulse Oximetry 96 96 97 08/18/18 04:00 08/18/18 04:14 08/18/18 05:00 Temperature Pulse Rate 64 65 Respiratory Rate 18 18 19 Blood Pressure 97/51 L 101/55 L Pulse Oximetry 93 L 98 91 L 08/18/18 06:00 08/18/18 07:00 08/18/18 08:00 Temperature 98.0 F Pulse Rate 66 71 57 L Respiratory Rate 19 20 19 Blood Pressure 118/53 L 93/50 L 92/55 L Pulse Oximetry 93 L 93 L 94 L 08/18/18 08:10 08/18/18 09:00 08/18/18 09:01 Temperature Pulse Rate 65 62 Respiratory Rate 8 L 16 19 Blood Pressure 111/51 L Pulse Oximetry 98 96 96 08/18/18 10:00 08/18/18 10:01 08/18/18 11:00 Temperature Pulse Rate 64 61 61 Respiratory Rate 13 8 L 12 Blood Pressure 89/53 L 96/53 L Pulse Oximetry 98 97 98 08/18/18 11:33 08/18/18 12:00 08/18/18 12:01 Temperature 98.3 F Pulse Rate 63 64 Respiratory Rate 8 L 18 17 Blood Pressure 88/47 L Pulse Oximetry 99 100 100 08/18/18 13:00 08/18/18 14:00 08/18/18 15:00 Temperature Pulse Rate 60 62 60 Respiratory Rate 11 L 11 L 9 L Blood Pressure 101/61 104/55 L 100/55 L Pulse Oximetry 100 100 100 08/18/18 15:12 08/18/18 16:00 08/18/18 17:00 Temperature 97.7 F Pulse Rate 57 L 60 Respiratory Rate 8 L 17 19 Blood Pressure 91/54 L 95/50 L Pulse Oximetry 100 100 99 Intake & Output 08/17/18 08/18/18 08/18/18 18:59 06:59 18:59 Intake Total 632 / 632 983 / 983 600 / 600 Output Total 1350 / 1350 1150 / 1150 Balance -718 / -718 -167 / -167 600 / 600 Weight 145.1 kg Intake: IV 350 / 350 850 / 850 600 / 600 Bumex Inj 25 mg In 100 ml @ 0.5 100 / 100 MG/HR 2 mls/hr IV.CONT .Q24H SHAHEED Rx#:[id number] Intropin Inj 800 MG In NS Inj 500 / 500 480 ML @ 3 MCG/KG/MIN 17.51 mls /hr IV.CONT TITRATE PRN Rx#: [id number] Heparin/D5W 25,000 U/250 mL 25, 250 / 250 250 / 250 000 unit In 250 ml @ Per Protocol IV.CONT TITRATE PRN Rx #:[id number] Teflaro Inj 600 MG In NS Inj 100 / 100 100 / 100 200 / 200 100 ML @ 100 mls/hr IV.SIG Q8H SHAHEED Rx#:[id number] KCl 20 mEq Premix Inj 20 meq In 300 / 300 100 ml @ 50 mls/hr IV.SIG Q2H SHAHEED Rx#:[id number] Tube Feeding 82 / 82 133 / 133 Water Bolus Amount 200 / 200 Output: Urine Amount (Catheter) 1350 / 1350 1150 / 1150 Indwelling Urethral Catheter 1350 / 1350 1150 / 1150 GENERAL: Obese WM, on Vent, awake, follows commands SKIN: Warm and dry. HEAD: Normocephalic. EYES: No scleral icterus. No injection or drainage. NECK: Supple, trachea midline. No JVD or lymphadenopathy. CARDIOVASCULAR: Regular rate and rhythm without murmurs, gallops, or rubs. RESPIRATORY: Breath sounds equal bilaterally. No accessory muscle use. bilat chest tubes GASTROINTESTINAL: Abdomen soft, non-tender, nondistended. MUSCULOSKELETAL: No cyanosis, or edema. BACK: Nontender without obvious deformity. No CVA tenderness. - Urinary Catheter Management Indwelling Urethral Catheter Cath placed during this visit: yes Reason for continuing: Acute urinary retention Insertion date: 08/11/18 Insertion time: 12:00 Assessment and Plan - Plan IMPRESSION: 1. Respiratory failure. 2. Hypoxia. 3. Morbid obesity. 4. Likely sleep apnea. 5. Osteomyelitis. 6. Pneumonia. 7. Pulmonary edema. 8. Renal insufficiency. 9. Pleural effusion, s/p rt chest tube PLAN: Vent support SIMV mode Dopamine drip 1 mcg Diurease Monitor Lytes chest tube to sucrion Abx per ID Ceftaroline q 8 hrs Palliative care following
--- NOTE | 2018-08-18 18:08 | P.PNNEU ---
Subjective Subjective Comments: No no acute events Active Medications: Active Medications Acetaminophen (Tylenol) 650 mg PO Q6H PRN PRN Reason: Temp > 100.4 Al Hydroxide/Mg Hydroxide (Milk Of Rasheed Olmedo) 30 ml PO Q12H PRN PRN Reason: Mild Constipation Albuterol (Albuterol Neb (Prn)) 2.5 mg NEB Q2HR NEB PRN PRN Reason: DYSPNEA Last Admin: 08/15/18 03:30 Dose: 2.5 mg Amlodipine Besylate (Norvasc) 5 mg PO DAILY [facility] Last Admin: 08/18/18 08:54 Dose: Not Given Artificial Tears (Refresh Tears 0.5% Opth Drops) 1 drop EACH EYE BID [facility] Last Admin: 08/18/18 08:56 Dose: 1 drop Aspirin (Aspirin) 325 mg PO DAILY [facility] Last Admin: 08/18/18 08:54 Dose: 325 mg Atorvastatin Calcium (Lipitor) 20 mg PO HS [facility] Last Admin: 08/17/18 20:55 Dose: 20 mg Bisacodyl (Dulcolax Supp) 10 mg RECTAL DAILY PRN PRN Reason: SEVERE CONSITIPATION Carvedilol (Coreg) 3.125 mg PO BID [facility] Last Admin: 08/18/18 08:54 Dose: Not Given Chlorhexidine Gluconate (Chlorhexidine 2% Cloth) 1 pack TOPICAL PRN PRN PRN Reason: FOR HYGIENIC CARE Chlorhexidine Gluconate (Peridex 0.12% Oral Kit) 15 ml OROPHARYNG BID@0800, 2000 [facility] Last Admin: 08/18/18 08:55 Dose: 15 ml Dextrose (D50w Vial) 50 ml IV.PUSH UNSCH PRN PRN Reason: PER HYPOGLYCEMIA PROTOCOL Duloxetine HCl (Cymbalta) 30 mg PO DAILY [facility] Last Admin: 08/18/18 08:54 Dose: 30 mg Finasteride (Proscar) 5 mg PO DAILY@1800 [facility] Last Admin: 08/18/18 17:02 Dose: 5 mg Fluconazole (Diflucan) 100 mg PO DAILY [facility] Last Admin: 08/18/18 11:38 Dose: 100 mg Gabapentin (Neurontin) 300 mg PO Q6HR [facility] Last Admin: 08/18/18 17:02 Dose: 300 mg Glucagon (Glucagon Inj) 1 mg OTHER PRN PRN PRN Reason: for Hypoglycemia Protocol Guaifenesin (Mucinex Er) 600 mg PO BID [facility] Last Admin: 08/18/18 08:55 Dose: 600 mg Fentanyl (Fentanyl 10 Mcg/Ml Premix Drip) 2,500 mcg in 250 mls @ 5 mls/hr IV.SIG TITRATE PRN; Protocol PRN Reason: Per Protocol Last Titration: 08/15/18 19:00 Dose: Infused Midazolam HCl (Versed Inj) 50 mg in 50 mls @ 2 mls/hr IV.CONT TITRATE PRN; Protocol PRN Reason: Per Protocol Norepinephrine Bitartrate 16 (mg/ Sodium Chloride) 250 mls @ 1.87 mls/hr IV.CONT TITRATE PRN; Protocol PRN Reason: See Protocol Bumetanide (Bumex Inj) 25 mg in 100 mls @ 2 mls/hr IV.CONT .Q24H [facility] Last Admin: 08/18/18 17:02 Dose: 0.5 mg/hr, 2 mls/hr Heparin Sodium/Dextrose (Heparin/D5w 25,000 U/250 Ml) 25,000 unit in 250 mls @ 0 mls/hr IV.CONT TITRATE PRN; Protocol PRN Reason: Per Protocol Last Admin: 08/18/18 08:50 Dose: 1,800 units/hr, 18 mls/hr Ceftaroline Fosamil 600 mg/ (Sodium Chloride) 100 mls @ 100 mls/hr IV.SIG Q8H [facility] Last Infusion: 08/18/18 17:04 Dose: Infused Dopamine HCl/Dextrose (Dopamine 400 Mg/250 Ml Premix) 400 mg in 250 mls @ 17.516 mls/hr IV.CONT TITRATE PRN; Protocol PRN Reason: PER PROTOCOL Last Admin: 08/17/18 21:49 Dose: 1 mcg/kg/min, 5.84 mls/hr Fosphenytoin Sodium 200 mgpe/ (Sodium Chloride) 54 mls @ 216 mls/hr IV.SIG Q12HR [facility] Insulin Aspart (Novolog Insulin Correctional Sugar Inj) 0 unit SQ Q6HR [facility]; Protocol Last Admin: 08/18/18 17:03 Dose: 4 unit Insulin Detemir (Levemir Inj) 15 unit SQ BID [facility] Last Admin: 08/18/18 08:55 Dose: 15 unit Lactulose (Lactulose Liq) 30 ml PO DAILY PRN PRN Reason: SEVERE CONSITIPATION Lansoprazole (Prevacid Solutab) 30 mg NG/OG DAILY [facility] Last Admin: 08/18/18 08:53 Dose: 30 mg Miscellaneous Medication () 1 each OROPHARYNG 0000,0400,1200,1600 [facility] Last Admin: 08/18/18 17:03 Dose: 1 each Ondansetron HCl (Zofran Inj) 4 mg IV.PUSH Q6H PRN PRN Reason: NAUSEA OR VOMITING Last Admin: 08/16/18 00:57 Dose: 4 mg Polyethylene Glycol (Miralax) 17 gm PO BID [facility] Last Admin: 08/18/18 08:49 Dose: 17 gm Potassium Chloride (K-Dur) 20 meq PO BID [facility] Last Admin: 08/18/18 08:54 Dose: 20 meq Senna/Docusate Sodium (Isabella-Colace) 1 tab PO BID [facility] Last Admin: 08/18/18 08:53 Dose: 1 tab Sennosides (Senokot) 17.2 mg PO Q12H PRN PRN Reason: Moderate Constipation Sodium Chloride (Ns Flush) 2 ml IV.FLUSH BID [facility] Last Admin: 08/18/18 08:55 Dose: 2 ml Sodium Chloride (Ns Flush) 2 ml IV.FLUSH PRN PRN PRN Reason: FLUSH AFTER USING IV ACCESS Tamsulosin HCl (Flomax) 0.4 mg PO BID [facility] Last Admin: 08/18/18 08:55 Dose: 0.4 mg Terbutaline Sulfate (Brethine Inj) 1 mg SQ UNSCH PRN PRN Reason: For Extravasation Allergies/Adverse Reactions: Allergies Allergy/AdvReac Type Severity Reaction Status Date / Time No Known Allergies Allergy Verified 08/06/18 01:24 Review of Systems unobtainable due to endotracheal tube, unobtainable due to mental status Physical Exam Vital signs: Vital Signs 08/17/18 19:00 08/17/18 20:00 08/17/18 20:15 Temperature Pulse Rate 64 66 Respiratory Rate 18 18 18 Blood Pressure 101/58 L 98/54 L Pulse Oximetry 93 L 93 L 97 08/17/18 21:00 08/17/18 21:01 08/17/18 22:00 Temperature Pulse Rate 68 66 66 Respiratory Rate 19 18 18 Blood Pressure 118/59 L 103/52 L Pulse Oximetry 95 95 94 L 08/17/18 23:00 08/17/18 23:40 08/18/18 00:00 Temperature Pulse Rate 63 75 Respiratory Rate 18 18 20 Blood Pressure 104/58 L 101/59 L Pulse Oximetry 94 L 95 92 L 08/18/18 01:00 08/18/18 02:00 08/18/18 02:01 Temperature Pulse Rate 62 61 65 Respiratory Rate 18 18 18 Blood Pressure 108/51 L 99/51 L Pulse Oximetry 92 L 96 96 08/18/18 03:00 08/18/18 04:00 08/18/18 04:14 Temperature Pulse Rate 63 64 Respiratory Rate 18 18 18 Blood Pressure 97/56 L 97/51 L Pulse Oximetry 97 93 L 98 08/18/18 05:00 08/18/18 06:00 08/18/18 07:00 Temperature Pulse Rate 65 66 71 Respiratory Rate 19 19 20 Blood Pressure 101/55 L 118/53 L 93/50 L Pulse Oximetry 91 L 93 L 93 L 08/18/18 08:00 08/18/18 08:10 08/18/18 09:00 Temperature 98.0 F Pulse Rate 57 L 65 Respiratory Rate 19 8 L 16 Blood Pressure 92/55 L Pulse Oximetry 94 L 98 96 08/18/18 09:01 08/18/18 10:00 08/18/18 10:01 Temperature Pulse Rate 62 64 61 Respiratory Rate 19 13 8 L Blood Pressure 111/51 L 89/53 L Pulse Oximetry 96 98 97 08/18/18 11:00 08/18/18 11:33 08/18/18 12:00 Temperature Pulse Rate 61 63 Respiratory Rate 12 8 L 18 Blood Pressure 96/53 L Pulse Oximetry 98 99 100 08/18/18 12:01 08/18/18 13:00 08/18/18 14:00 Temperature 98.3 F Pulse Rate 64 60 62 Respiratory Rate 17 11 L 11 L Blood Pressure 88/47 L 101/61 104/55 L Pulse Oximetry 100 100 100 08/18/18 15:00 08/18/18 15:12 08/18/18 16:00 Temperature Pulse Rate 60 57 L Respiratory Rate 9 L 8 L 17 Blood Pressure 100/55 L 91/54 L Pulse Oximetry 100 100 100 08/18/18 17:00 Temperature 97.7 F Pulse Rate 60 Respiratory Rate 19 Blood Pressure 95/50 L Pulse Oximetry 99 Intake & Output 08/17/18 08/18/18 08/18/18 18:59 06:59 18:59 Intake Total 632 / 632 983 / 983 600 / 600 Output Total 1350 / 1350 1150 / 1150 Balance -718 / -718 -167 / -167 600 / 600 Weight 145.1 kg Intake: IV 350 / 350 850 / 850 600 / 600 Bumex Inj 25 mg In 100 ml @ 0.5 100 / 100 MG/HR 2 mls/hr IV.CONT .Q24H [facility] Rx#:[id number] Intropin Inj 800 MG In NS Inj 500 / 500 480 ML @ 3 MCG/KG/MIN 17.51 mls /hr IV.CONT TITRATE PRN Rx#: [id number] Heparin/D5W 25,000 U/250 mL 25, 250 / 250 250 / 250 000 unit In 250 ml @ Per Protocol IV.CONT TITRATE PRN Rx #:[id number] Teflaro Inj 600 MG In NS Inj 100 / 100 100 / 100 200 / 200 100 ML @ 100 mls/hr IV.SIG Q8H [facility] Rx#:[id number] KCl 20 mEq Premix Inj 20 meq In 300 / 300 100 ml @ 50 mls/hr IV.SIG Q2H [facility] Rx#:[id number] Tube Feeding 82 / 82 133 / 133 Water Bolus Amount 200 / 200 Output: Urine Amount (Catheter) 1350 / 1350 1150 / 1150 Indwelling Urethral Catheter 1350 / 1350 1150 / 1150 Narrative: GENERAL: in NAD, SKIN: Warm and dry. HEAD: Atraumatic. Normocephalic. ENT: No nasal bleeding or discharge. Mucous membranes pink and moist. NECK: Intubated CARDIOVASCULAR: Regular rate and rhythm. RESPIRATORY: Intubated GASTROINTESTINAL: Abdomen soft, non-tender, nondistended. MUSCULOSKELETAL: No gross deformity NEUROLOGICAL: Intubated, stuporous state, not following nonverbal, grimaces mild right gaze preference, no involuntary movements, OU 3 mm sluggishly reactive positive doll's eye with intact oculocephalic reflex, localizes all 4 extremity flexed with the uppers withdraws to the lowers plantarflex her no clonus reflexes depressed further sensory cerebellar gait testing limited secondary mental status PSYCHIATRIC: Intubated, calm - Constitutional no acute distress - Urinary Catheter Management Indwelling Urethral Catheter Cath placed during this visit: yes Reason for continuing: Acute urinary retention Insertion date: 08/11/18 Insertion time: 12:00 Objective Laboratory Results - last 24 hr 08/18/18 08/18/18 08/18/18 00:24 04:09 04:09 WBC 11.2 H RBC 3.21 L Hgb 8.9 L Hct 27.0 L MCV 84.0 MCH 27.8 MCHC 33.1 RDW 16.8 Plt Count 123 L MPV 9.2 APTT 46.0 H Sodium Potassium Chloride Carbon Dioxide Anion Gap BUN Creatinine Estimated GFR POC Glucose 277 H Random Glucose Calcium Phosphorus Magnesium 08/18/18 08/18/18 08/18/18 04:09 05:52 11:41 WBC RBC Hgb Hct MCV MCH MCHC RDW Plt Count MPV APTT Sodium 134 L Potassium 2.9 L* Chloride 88 L Carbon Dioxide 33.0 H Anion Gap 13 BUN 85 H Creatinine 2.85 H Estimated GFR 22 L POC Glucose 233 H 273 H Random Glucose 207 H D Calcium 8.8 Phosphorus 4.2 Magnesium 2.3 08/18/18 17:00 WBC RBC Hgb Hct MCV MCH MCHC RDW Plt Count MPV APTT Sodium Potassium Chloride Carbon Dioxide Anion Gap BUN Creatinine Estimated GFR POC Glucose 224 H Random Glucose Calcium Phosphorus Magnesium Microbiology 08/11/18 17:02 Acid Fast Bacilli Smear - Final Abscess - Lung No acid fast bacilli seen Mycobacterial Culture - Preliminary No growth in 1 week 08/11/18 17:02 Fungal Smear - Final Abscess - Lung No fungal elements seen Fungal Culture - Preliminary No growth in 1 week 08/15/18 17:15 Urine Culture - Final Catheterized Urine Rebeka glabrata Review/Management - Diagnosis (1) Chronic right arterial ischemic stroke, MCA (middle cerebral artery) Code(s): I69.30 - Unspecified sequelae of cerebral infarction Status: Acute Current Visit: Yes (2) Osteomyelitis of ankle and foot Code(s): M86.9 - Osteomyelitis, unspecified Status: Acute Current Visit: Yes (3) Diastolic heart failure Code(s): I50.30 - Unspecified diastolic (congestive) heart failure Status: Acute Current Visit: Yes (4) Respiratory failure Code(s): J96.90 - Respiratory failure, unspecified, unspecified whether with hypoxia or hypercapnia Status: Acute Current Visit: Yes (5) Kidney disease Code(s): N28.9 - Disorder of kidney and ureter, unspecified Status: Acute Current Visit: No - Review/Management Plan: Had a CHIKA which showed EF 35-40%, 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 Currently on heparin drip. Is at risk for shower embolic events However suspect he has a metabolic encephalopathy at present related to renal disease, respiratory failure, cardiac disease Exclude any seizure activity; at high risk with previous stroke and metabolic abnormalities Recommendation trial of IV Celebrex Follow exam
--- NOTE | 2018-08-18 19:30 | P.PNCA ---
Subjective Interval history: No events overnight Currently on SIMV trial Medications and Allergies Active Medications: Active Medications Acetaminophen (Tylenol) 650 mg PO Q6H PRN PRN Reason: Temp > 100.4 Al Hydroxide/Mg Hydroxide (Milk Of Rasheed Liq) 30 ml PO Q12H PRN PRN Reason: Mild Constipation Albuterol (Albuterol Neb (Prn)) 2.5 mg NEB Q2HR NEB PRN PRN Reason: DYSPNEA Last Admin: 08/15/18 03:30 Dose: 2.5 mg Amlodipine Besylate (Norvasc) 5 mg PO DAILY [facility] Last Admin: 08/18/18 08:54 Dose: Not Given Artificial Tears (Refresh Tears 0.5% Opth Drops) 1 drop EACH EYE BID [facility] Last Admin: 08/18/18 08:56 Dose: 1 drop Aspirin (Aspirin) 325 mg PO DAILY [facility] Last Admin: 08/18/18 08:54 Dose: 325 mg Atorvastatin Calcium (Lipitor) 20 mg PO HS [facility] Last Admin: 08/17/18 20:55 Dose: 20 mg Bisacodyl (Dulcolax Supp) 10 mg RECTAL DAILY PRN PRN Reason: SEVERE CONSITIPATION Carvedilol (Coreg) 3.125 mg PO BID [facility] Last Admin: 08/18/18 08:54 Dose: Not Given Chlorhexidine Gluconate (Chlorhexidine 2% Cloth) 1 pack TOPICAL PRN PRN PRN Reason: FOR HYGIENIC CARE Chlorhexidine Gluconate (Peridex 0.12% Oral Kit) 15 ml OROPHARYNG BID@0800, 2000 [facility] Last Admin: 08/18/18 08:55 Dose: 15 ml Dextrose (D50w Vial) 50 ml IV.PUSH UNSCH PRN PRN Reason: PER HYPOGLYCEMIA PROTOCOL Duloxetine HCl (Cymbalta) 30 mg PO DAILY [facility] Last Admin: 08/18/18 08:54 Dose: 30 mg Finasteride (Proscar) 5 mg PO DAILY@1800 [facility] Last Admin: 08/18/18 17:02 Dose: 5 mg Fluconazole (Diflucan) 100 mg PO DAILY [facility] Last Admin: 08/18/18 11:38 Dose: 100 mg Gabapentin (Neurontin) 300 mg PO Q6HR [facility] Last Admin: 08/18/18 17:02 Dose: 300 mg Glucagon (Glucagon Inj) 1 mg OTHER PRN PRN PRN Reason: for Hypoglycemia Protocol Guaifenesin (Mucinex Er) 600 mg PO BID [facility] Last Admin: 08/18/18 08:55 Dose: 600 mg Fentanyl (Fentanyl 10 Mcg/Ml Premix Drip) 2,500 mcg in 250 mls @ 5 mls/hr IV.SIG TITRATE PRN; Protocol PRN Reason: Per Protocol Last Titration: 08/15/18 19:00 Dose: Infused Midazolam HCl (Versed Inj) 50 mg in 50 mls @ 2 mls/hr IV.CONT TITRATE PRN; Protocol PRN Reason: Per Protocol Norepinephrine Bitartrate 16 (mg/ Sodium Chloride) 250 mls @ 1.87 mls/hr IV.CONT TITRATE PRN; Protocol PRN Reason: See Protocol Bumetanide (Bumex Inj) 25 mg in 100 mls @ 2 mls/hr IV.CONT .Q24H [facility] Last Admin: 08/18/18 17:02 Dose: 0.5 mg/hr, 2 mls/hr Heparin Sodium/Dextrose (Heparin/D5w 25,000 U/250 Ml) 25,000 unit in 250 mls @ 0 mls/hr IV.CONT TITRATE PRN; Protocol PRN Reason: Per Protocol Last Admin: 08/18/18 08:50 Dose: 1,800 units/hr, 18 mls/hr Ceftaroline Fosamil 600 mg/ (Sodium Chloride) 100 mls @ 100 mls/hr IV.SIG Q8H [facility] Last Infusion: 08/18/18 17:04 Dose: Infused Dopamine HCl/Dextrose (Dopamine 400 Mg/250 Ml Premix) 400 mg in 250 mls @ 17.516 mls/hr IV.CONT TITRATE PRN; Protocol PRN Reason: PER PROTOCOL Last Admin: 08/17/18 21:49 Dose: 1 mcg/kg/min, 5.84 mls/hr Fosphenytoin Sodium 200 mgpe/ (Sodium Chloride) 54 mls @ 216 mls/hr IV.SIG Q12HR [facility] Insulin Aspart (Novolog Insulin Correctional Sugar Inj) 0 unit SQ Q6HR [facility]; Protocol Last Admin: 08/18/18 17:03 Dose: 4 unit Insulin Detemir (Levemir Inj) 15 unit SQ BID [facility] Last Admin: 08/18/18 08:55 Dose: 15 unit Lactulose (Lactulose Liq) 30 ml PO DAILY PRN PRN Reason: SEVERE CONSITIPATION Lansoprazole (Prevacid Solutab) 30 mg NG/OG DAILY [facility] Last Admin: 08/18/18 08:53 Dose: 30 mg Miscellaneous Medication () 1 each OROPHARYNG 0000,0400,1200,1600 [facility] Last Admin: 08/18/18 17:03 Dose: 1 each Ondansetron HCl (Zofran Inj) 4 mg IV.PUSH Q6H PRN PRN Reason: NAUSEA OR VOMITING Last Admin: 08/16/18 00:57 Dose: 4 mg Polyethylene Glycol (Miralax) 17 gm PO BID [facility] Last Admin: 08/18/18 08:49 Dose: 17 gm Potassium Chloride (K-Dur) 20 meq PO BID [facility] Last Admin: 08/18/18 08:54 Dose: 20 meq Senna/Docusate Sodium (Isabella-Colace) 1 tab PO BID [facility] Last Admin: 08/18/18 08:53 Dose: 1 tab Sennosides (Senokot) 17.2 mg PO Q12H PRN PRN Reason: Moderate Constipation Sodium Chloride (Ns Flush) 2 ml IV.FLUSH BID [facility] Last Admin: 08/18/18 08:55 Dose: 2 ml Sodium Chloride (Ns Flush) 2 ml IV.FLUSH PRN PRN PRN Reason: FLUSH AFTER USING IV ACCESS Tamsulosin HCl (Flomax) 0.4 mg PO BID [facility] Last Admin: 08/18/18 08:55 Dose: 0.4 mg Terbutaline Sulfate (Brethine Inj) 1 mg SQ UNSCH PRN PRN Reason: For Extravasation Allergies Allergy/AdvReac Type Severity Reaction Status Date / Time No Known Allergies Allergy Verified 08/06/18 01:24 Home Medications Medication Instructions Recorded Confirmed Type aspirin 325 mg PO DAILY 06/01/18 06/01/18 History atorvastatin [Lipitor] 20 mg PO HS 06/01/18 08/06/18 History duloxetine [Cymbalta] 30 mg PO DAILY 06/01/18 06/01/18 History dutasteride [Avodart] 0.5 mg PO QPM 06/01/18 06/01/18 History gabapentin 300 mg PO Q6HR 06/01/18 06/01/18 History pantoprazole [Protonix] 40 mg PO DAILY 06/01/18 06/01/18 History tamsulosin [Flomax] 0.4 mg PO BID 06/01/18 08/06/18 History Physical Exam Vital signs: Vital Signs 08/17/18 20:00 08/17/18 20:15 08/17/18 21:00 Temperature Pulse Rate 66 68 Respiratory Rate 18 18 19 Blood Pressure 98/54 L Pulse Oximetry 93 L 97 95 08/17/18 21:01 08/17/18 22:00 08/17/18 23:00 Temperature Pulse Rate 66 66 63 Respiratory Rate 18 18 18 Blood Pressure 118/59 L 103/52 L 104/58 L Pulse Oximetry 95 94 L 94 L 08/17/18 23:40 08/18/18 00:00 08/18/18 01:00 Temperature Pulse Rate 75 62 Respiratory Rate 18 20 18 Blood Pressure 101/59 L 108/51 L Pulse Oximetry 95 92 L 92 L 08/18/18 02:00 08/18/18 02:01 08/18/18 03:00 Temperature Pulse Rate 61 65 63 Respiratory Rate 18 18 18 Blood Pressure 99/51 L 97/56 L Pulse Oximetry 96 96 97 08/18/18 04:00 08/18/18 04:14 08/18/18 05:00 Temperature Pulse Rate 64 65 Respiratory Rate 18 18 19 Blood Pressure 97/51 L 101/55 L Pulse Oximetry 93 L 98 91 L 08/18/18 06:00 08/18/18 07:00 08/18/18 08:00 Temperature 98.0 F Pulse Rate 66 71 57 L Respiratory Rate 19 20 19 Blood Pressure 118/53 L 93/50 L 92/55 L Pulse Oximetry 93 L 93 L 94 L 08/18/18 08:10 08/18/18 09:00 08/18/18 09:01 Temperature Pulse Rate 65 62 Respiratory Rate 8 L 16 19 Blood Pressure 111/51 L Pulse Oximetry 98 96 96 08/18/18 10:00 08/18/18 10:01 08/18/18 11:00 Temperature Pulse Rate 64 61 61 Respiratory Rate 13 8 L 12 Blood Pressure 89/53 L 96/53 L Pulse Oximetry 98 97 98 08/18/18 11:33 08/18/18 12:00 08/18/18 12:01 Temperature 98.3 F Pulse Rate 63 64 Respiratory Rate 8 L 18 17 Blood Pressure 88/47 L Pulse Oximetry 99 100 100 08/18/18 13:00 08/18/18 14:00 08/18/18 15:00 Temperature Pulse Rate 60 62 60 Respiratory Rate 11 L 11 L 9 L Blood Pressure 101/61 104/55 L 100/55 L Pulse Oximetry 100 100 100 08/18/18 15:12 08/18/18 16:00 08/18/18 17:00 Temperature 97.7 F Pulse Rate 57 L 60 Respiratory Rate 8 L 17 19 Blood Pressure 91/54 L 95/50 L Pulse Oximetry 100 100 99 Intake & Output 08/18/18 08/18/18 08/19/18 06:59 18:59 06:59 Intake Total 983 / 983 968 / 968 Output Total 1150 / 1150 600 / 600 Balance -167 / -167 368 / 368 Weight 145.1 kg Intake: IV 850 / 850 700 / 700 Bumex Inj 25 mg In 100 ml @ 0.5 100 / 100 MG/HR 2 mls/hr IV.CONT .Q24H [facility] Rx#:[id number] Intropin Inj 800 MG In NS Inj 500 / 500 480 ML @ 3 MCG/KG/MIN 17.51 mls /hr IV.CONT TITRATE PRN Rx#: [id number] Heparin/D5W 25,000 U/250 mL 25, 250 / 250 000 unit In 250 ml @ Per Protocol IV.CONT TITRATE PRN Rx #:[id number] Teflaro Inj 600 MG In NS Inj 100 / 100 200 / 200 100 ML @ 100 mls/hr IV.SIG Q8H [facility] Rx#:[id number] KCl 20 mEq Premix Inj 20 meq In 400 / 400 100 ml @ 50 mls/hr IV.SIG Q2H [facility] Rx#:[id number] Oral 0 / 0 Tube Feeding 133 / 133 268 / 268 Output: Urine Amount (Catheter) 1150 / 1150 600 / 600 Indwelling Urethral Catheter 1150 / 1150 600 / 600 Chest Tube Drainage 0 / 0 Left Mid-Axillary Chest 0 / 0 Right Mid-Axillary Chest 0 / 0 Other: # Bowel Movements 1 Narrative: GENERAL: in NAD, SKIN: Warm and dry. HEAD: Atraumatic. Normocephalic. ENT: No nasal bleeding or discharge. Mucous membranes pink and moist. NECK: Intubated CARDIOVASCULAR: Regular rate and rhythm. RESPIRATORY: Intubated GASTROINTESTINAL: Abdomen soft, non-tender, nondistended. MUSCULOSKELETAL: No gross deformity NEUROLOGICAL: Intubated, stuporous state, not following nonverbal, grimaces mild right gaze preference, no involuntary movements, OU 3 mm sluggishly reactive positive doll's eye with intact oculocephalic reflex, localizes all 4 extremity flexed with the uppers withdraws to the lowers plantarflex her no clonus reflexes depressed further sensory cerebellar gait testing limited secondary mental status PSYCHIATRIC: Intubated, calm - Urinary Catheter Management Indwelling Urethral Catheter Cath placed during this visit: yes Reason for continuing: Acute urinary retention Insertion date: 08/11/18 Insertion time: 12:00 Results 08/18/18 04:09 08/18/18 04:09 Coagulation 08/17/18 08/18/18 Range/Units 04:08 04:09 APTT 46.9 H 46.0 H (24.3-30.1) sec CBC 08/17/18 08/18/18 Range/Units 04:08 04:09 WBC 8.4 11.2 H (4.0-11.0) th/mm3 RBC 3.14 L 3.21 L (4.50-5.90) mil/mm3 Hgb 8.8 L 8.9 L (13.0-17.0) gm/dL Hct 26.9 L 27.0 L (39.0-51.0) % Plt Count 124 L 123 L (150-450) th/mm3 Comprehensive Metabolic Panel 08/17/18 08/18/18 Range/Units 04:08 04:09 Sodium 132 L 134 L (136-145) meq/L Potassium 3.3 L D 2.9 L* (3.5-5.1) meq/L Chloride 87 L D 88 L (98-107) meq/L Carbon Dioxide 33.9 H 33.0 H (21.0-32.0) meq/L BUN 81 H 85 H (7-18) mg/dL Creatinine 2.48 H 2.85 H (0.60-1.30) mg/dL Calcium 9.2 8.8 (8.5-10.1) mg/dL Intake and Output 08/18/18 08/18/18 08/18/18 06:59 14:59 22:59 Intake Total 383 / 383 300 / 300 668 / 668 Output Total 1150 / 1150 600 / 600 Balance -767 / -767 300 / 300 68 / 68 Intake: IV 250 / 250 300 / 300 400 / 400 Bumex Inj 25 mg In 100 ml @ 0.5 100 / 100 MG/HR 2 mls/hr IV.CONT .Q24H [facility] Rx#:[id number] Heparin/D5W 25,000 U/250 mL 25, 250 / 250 000 unit In 250 ml @ Per Protocol IV.CONT TITRATE PRN Rx #:[id number] Teflaro Inj 600 MG In NS Inj 100 / 100 100 / 100 100 ML @ 100 mls/hr IV.SIG Q8H [facility] Rx#:[id number] KCl 20 mEq Premix Inj 20 meq In 200 / 200 200 / 200 100 ml @ 50 mls/hr IV.SIG Q2H [facility] Rx#:[id number] Oral 0 / 0 Tube Feeding 133 / 133 268 / 268 Output: Urine Amount (Catheter) 1150 / 1150 600 / 600 Indwelling Urethral Catheter 1150 / 1150 600 / 600 Chest Tube Drainage 0 / 0 Left Mid-Axillary Chest 0 / 0 Right Mid-Axillary Chest 0 / 0 Other: # Bowel Movements 1 Weight 145.1 kg Assessment and Plan - Assessment (1) Respiratory failure Code(s): J96.90 - Respiratory failure, unspecified, unspecified whether with hypoxia or hypercapnia Status: Acute (2) PNA (pneumonia) Code(s): J18.9 - Pneumonia, unspecified organism Status: Acute (3) Pleural effusion Code(s): J90 - Pleural effusion, not elsewhere classified Status: Acute (4) Osteomyelitis of ankle and foot Code(s): M86.9 - Osteomyelitis, unspecified Status: Acute (5) Diastolic heart failure Code(s): I50.30 - Unspecified diastolic (congestive) heart failure Status: Acute (6) Dyspnea Code(s): R06.00 - Dyspnea, unspecified Status: Acute - Plan 1) Bilateral pleural effusions Bumex drip Chest tubes Diuresing well 2) Diastolic dysfunction by CHIKA 3) Left atrial appendage thrombus Started on heparin drip 4) Questionable AFib Will be on anti-coagulation due to thrombus No further work up 5) Agree with palliative care consultation Appears to be progressing slowly 6) Wide complex tachycardia Possible catecholamine stimulation on Dopamine vs Afib with aberrancy Not a candidate for ischemic evaluation, will continue to follow 7) Not tolerating CPAP at this time Started on SIMV this morning
[2018-08-18] MEDS: Fosphenytoin Inj 200 MGPE in Sodium Chlor 0.9% Inj 50 ML IV.SIG SCH (20:59)
[2018-08-19] MEDS: Oral Hygiene Kit OROPHARYNG SCH ×4 (05:08→17:24)
[2018-08-19] MEDS: Gabapentin 300 MG Capsule PO SCH ×3 (05:09→18:37)
[2018-08-19] MEDS: Insulin NovoLOG Aspart Correctional Sugar Inj SQ SCH ×2 (05:47→13:01)
[2018-08-19 06:13] LABS: Hematocrit 26.7 % (39.0-51.0); Hemoglobin 8.6 gm/dL (13.0-17.0); Mean Corpuscular HGB Conc 32.3 % (32.0-36.0); Mean Corpuscular Hemoglobin 28.2 pg (27.0-34.0); Mean Corpuscular Volume 87.1 fL (80.0-100.0); Mean Platelet Volume 9.3 fL (7.0-11.0); Platelet Count 100 th/mm3 (150-450); Red Blood Count 3.06 mil/mm3 (4.50-5.90); White Blood Count 10.6 th/mm3 (4.0-11.0)
[2018-08-19 06:54] LABS: Calcium 8.5 mg/dL (8.5-10.1); Carbon Dioxide 34.4 meq/L (21.0-32.0); Magnesium 2.7 mg/dL (1.5-2.5); Phosphorus 7.7 mg/dL (2.5-4.9); Potassium 3.9 meq/L (3.5-5.1)
[2018-08-19] MEDS: Chlorhexidine 0.12% Oral Kit 15 ML UDC OROPHARYNG SCH ×2 (08:55→20:28)
[2018-08-19] MEDS: Fosphenytoin Inj 200 MGPE in Sodium Chlor 0.9% Inj 50 ML IV.SIG SCH ×2 (08:55→20:28)
[2018-08-19] MEDS: Fluconazole 100 MG Tablet PO SCH (08:56)
[2018-08-19] MEDS: Aspirin 325 MG Tablet PO SCH (08:56)
[2018-08-19] MEDS: Insulin Detemir Inj 1,000 UNIT/10 ML Vial SQ SCH ×2 (08:57→20:29)
[2018-08-19] MEDS: Sodium Chloride 0.9% 2 ML Flush BID IV.FLUSH SCH ×2 (08:57→20:30)
[2018-08-19] MEDS: Carboxymethylcellulose 0.5% Opth Drops 15 ML Bottle EACH EYE SCH ×2 (08:58→20:31)
--- NOTE | 2018-08-19 09:12 | P.DIET ---
Nutritional Evaluation Type of nutrition evaluation: follow-up Nutrition consult regarding: Tube Feeding (ordered 08/11) Nutrition screening: [facility] [place] Screening comments: Pt reassessed per SCCM and ASPEN guidelines for critically ill pts with a BMI > 30. Objective - Diagnosis PNA - Objective [place] body weight: 84 kg % IBW: 199 (IBW = 184#) Body Weight Used for Calculations: IBW (83.6 kg used for protein needs), Actual (166.9 kg for kcaloric needs) Energy Needs - Lower Range (kCal/kg): 11 Energy Needs - Upper Range (kCal/kg): 14 Lower Limit kCal/kg (kCals): 1,836 Upper Limit kCal/kg (kCals): 2,337 Lower Limit Protein Factor (Grams per Kg): 1.8 Upper Limit Protein Factor (Grams per Kg): 2.2 Lower Protein Needs (Protein): 150 Upper Protein Needs (Protein): 184 Dietitian Reviewed in Medical Record: Curent medications, Intake & Output, Labs , Medical history, Tube feeding, Wound/DTI Diet Order: NPO Wound Care Note: 08/06 Stage 3 pressure injury R Buttock, unstageable pressure injuries to R lateral foot and R heel Objective Comments: PMH: DM, GERD, HLD, HTN, Neuropathy, Obesity Feeding - Current PO Supplement Current Supplement: Glucerna Shake Current Supplement Flavor: Vanilla Current Frequency of Supplement: Twice daily Current kCals Provided by Supplement: 220 Current Protein Provided by Supplement: 10 Assessment Assessment: Pt remains orally intubated on vent w/ CPAP trials. Pts current order is Glucerna 1.5 @ 60 mLs/hr. Pt has good UPO and +BM. Labs reviewed. Additional Recs to follow r/t Clinical Course. Brought forward: Assessed per SCCM and ASPEN guidelines and recommend change to Vital High Protein @ 75 mls/hr to provide 1800 kcals, 158 gms protein and 1505 mls of free water. If Glucerna 1.5 is still preferred, recommend the addition of 2 packs Beneprotein tid to meet high protein needs. Recommendations: Vital High Protein @ 75 mls/hr goal Dietitian to Monitor: Lab values, Intake & Output, Tube feeding tolerance, Wound /skin status, Medical course
[2018-08-19] MEDS: Polyethylene Glycol 3350 17 GM Packet PO SCH ×2 (09:34→20:30)
--- NOTE | 2018-08-19 11:59 | P.PNID ---
Subjective Remarks: ID Coverage Mr. Meléndez is a 73-year-old male with past medical history significant for morbid obesity, peripheral neuropathy, diabetes mellitus, hyperlipidemia and hypertension. Patient is a long-term resident of [facility] in reportedly is not very active and is mostly bedbound. Patient was brought into the emergency room by EMS from [facility] for shortness of breath and hypoxia. Per report patient had an episode of shortness of breath with O2 sats of 70% on room air however patient refused transport to the ER. Thereafter patient had another episode of shortness of breath and hypoxia. By this time patient had been treated with Zyvox for lower extremity wound for positive MRSA as well as recently started on Levaquin for pneumonia at the [facility]. Patient has a PICC line in place and has been treated with IV antibiotics. Nurse taking care of the patient informs me that currently there is no blood draws from the PICC line but medications can be infused although with some difficulty. Due to concern for thrombosis at the site of PICC line I have ordered a Doppler which is pending at the present time. On arrival his blood pressure was 145 x 63, heart rate of 81, O2 sats 97% on 10 L simple mask. His blood gas was unremarkable. His creatinine was 1.93 and previously in May 2018 was 1.83. His chest x-ray showed bilateral lung consolidation possible element of pulmonary edema as well as small bilateral pleural effusion. He received 1 dose of Lasix in the ER. Infectious diseases consulted for evaluation and pneumonia as well as osteomyelitis. s/b Podiatry even if osteomyelitis it was likely partially treated prior to arrival. Patient refused amputation. Reviewed Podiatry no plans for surgery or biopsy and they dont think it is the source of infection,. Notes reviewed Awake, following On CPAP, not SOB Temps ok On dopamine Monitor shows AF, rate controlled [address], not output recorded Last CXR 08/16 no change in infiltrates and effusions Creatinine rising Antibiotics: Teflaro Lines: Lines ok Past Medical History: Obesity Depression Diabetes Diabetes GERD (gastroesophageal reflux disease) HTN (hypertension) High cholesterol Neuropathy Allergies/Adverse Reactions: Allergies No Known Allergies Allergy (Verified 08/06/18 01:24) Objective Vital Signs 08/18/18 12:00 08/18/18 12:01 08/18/18 13:00 Temperature 98.3 F Pulse Rate 63 64 60 Respiratory Rate 18 17 11 L Blood Pressure 88/47 L 101/61 Pulse Oximetry 100 100 100 08/18/18 14:00 08/18/18 15:00 08/18/18 15:12 Temperature Pulse Rate 62 60 Respiratory Rate 11 L 9 L 8 L Blood Pressure 104/55 L 100/55 L Pulse Oximetry 100 100 100 08/18/18 16:00 08/18/18 17:00 08/18/18 20:00 Temperature 97.7 F 97.6 F Pulse Rate 57 L 60 58 L Respiratory Rate 17 19 12 Blood Pressure 91/54 L 95/50 L 109/55 L Pulse Oximetry 100 99 99 08/18/18 20:23 08/18/18 22:00 08/19/18 00:00 Temperature 97.7 F Pulse Rate 62 55 L 57 L Respiratory Rate 10 L 12 Blood Pressure 115/58 L Pulse Oximetry 100 98 08/19/18 00:33 08/19/18 00:59 08/19/18 04:00 Temperature 97.8 F Pulse Rate 57 L 58 L Respiratory Rate 8 L 10 L Blood Pressure 100/61 Pulse Oximetry 97 94 L 08/19/18 07:44 Temperature Pulse Rate Respiratory Rate 10 L Blood Pressure Pulse Oximetry 99 Intake & Output 08/18/18 08/19/18 08/19/18 18:59 06:59 18:59 Intake Total 968 / 968 1202 / 1202 Output Total 600 / 600 650 / 650 Balance 368 / 368 552 / 552 Weight 145.1 kg Intake: IV 700 / 700 504 / 504 Bumex Inj 25 mg In 100 ml @ 0.5 100 / 100 MG/HR 2 mls/hr IV.CONT .Q24H SHAHEED Rx#:[id number] Heparin/D5W 25,000 U/250 mL 25, 250 / 250 000 unit In 250 ml @ Per Protocol IV.CONT TITRATE PRN Rx #:[id number] Teflaro Inj 600 MG In NS Inj 200 / 200 200 / 200 100 ML @ 100 mls/hr IV.SIG Q8H SHAHEED Rx#:[id number] Cerebyx Inj 200 MGPE In NS Inj 54 / 54 50 ML @ 216 mls/hr IV.SIG Q12HR SHAHEED Rx#:[id number] KCl 20 mEq Premix Inj 20 meq In 400 / 400 100 ml @ 50 mls/hr IV.SIG Q2H SHAHEED Rx#:[id number] Oral 0 / 0 Tube Feeding 268 / 268 498 / 498 Tube Irrigant 200 / 200 Output: Urine Amount (Catheter) 600 / 600 650 / 650 Indwelling Urethral Catheter 600 / 600 650 / 650 Chest Tube Drainage 0 / 0 0 / 0 Left Mid-Axillary Chest 0 / 0 0 / 0 Right Mid-Axillary Chest 0 / 0 0 / 0 Other: Date of Last Bowel Movement 08/18/18 # Bowel Movements 1 1 08/11/18 17:02 Abscess - Lung Acid Fast Bacilli Smear - Final No acid fast bacilli seen 08/11/18 17:02 Abscess - Lung Mycobacterial Culture - Preliminary No growth in 1 week 08/11/18 17:02 Abscess - Lung Fungal Smear - Final No fungal elements seen 08/11/18 17:02 Abscess - Lung Fungal Culture - Preliminary No growth in 1 week 08/15/18 17:15 Catheterized Urine Urine Culture - Final Rebeka glabrata Lab - Hematology Results 08/18/18 08/19/18 04:09 05:18 WBC 11.2 H 10.6 RBC 3.21 L 3.06 L Hgb 8.9 L 8.6 L Hct 27.0 L 26.7 L MCV 84.0 87.1 MCH 27.8 28.2 MCHC 33.1 32.3 RDW 16.8 17.0 Plt Count 123 L 100 L MPV 9.2 9.3 Lab - Chemistry Results 08/17/18 08/18/18 08/18/18 17:45 00:24 04:09 Sodium 134 L Potassium 2.9 L* Chloride 88 L Carbon Dioxide 33.0 H Anion Gap 13 BUN 85 H Creatinine 2.85 H Estimated GFR 22 L POC Glucose 281 H 277 H Random Glucose 207 H D Calcium 8.8 Phosphorus 4.2 Magnesium 2.3 08/18/18 08/18/18 08/18/18 05:52 11:41 17:00 Sodium Potassium Chloride Carbon Dioxide Anion Gap BUN Creatinine Estimated GFR POC Glucose 233 H 273 H 224 H Random Glucose Calcium Phosphorus Magnesium 08/18/18 08/18/18 08/19/18 21:40 23:53 05:18 Sodium 133 L Potassium 3.7 D 3.9 Chloride 86 L Carbon Dioxide 34.4 H Anion Gap 13 BUN 95 H Creatinine 3.36 H Estimated GFR 18 L POC Glucose 237 H Random Glucose 221 H Calcium 8.5 Phosphorus 7.7 H D Magnesium 2.7 H 08/19/18 05:37 Sodium Potassium Chloride Carbon Dioxide Anion Gap BUN Creatinine Estimated GFR POC Glucose 235 H Random Glucose Calcium Phosphorus Magnesium Imaging: ITS Impressions Foot X-Ray 08/06/18 00:00 CONCLUSION: Destructive changes at the fifth metatarsal head and possibly the fourth metatarsal head. Extremity Arterial Study 08/08/18 00:00 CONCLUSION: 1. Moderate reduction of the toe brachial indices bilaterally suggesting microangiopathic disease. 2. ABIs within the normal range bilaterally. Foot MRI 08/08/18 00:00 CONCLUSION: 1. Findings consistent with marrow edema and osteomyelitis involving the fourth and fifth metatarsals. The base of the fifth is spared. Proximal one third of the fourth is spared. Chest CT 08/11/18 13:44 CONCLUSION: 1. Diffuse bilateral pulmonary infiltrates and effusions. 2. Atherosclerosis. Venous Doppler Study 08/12/18 00:00 CONCLUSION: 1. The study is negative for lower extremity deep venous thrombosis. Head CT 08/15/18 09:27 CONCLUSION: 1. No acute hemorrhage or mass effect identified. 2. Focal encephalomalacia in the left frontal lobe. 3. Opacification of the mastoid air cells bilaterally which is new from the prior study consistent with acute mastoiditis. 4. Moderate atrophic change. . Head MRI 08/16/18 00:00 CONCLUSION: 1. Remote left frontal mid convexity infarct. 2. Senescent changes with mild periventricular ischemic white matter demyelination. No acute abnormality. Specifically, no acute infarction or hemorrhage. Chest X-Ray 08/16/18 05:00 CONCLUSION: Diffuse pulmonary consolidation likely related to edema. These processes are worse at the bases and on the right. Physical Exam: GENERAL: Morbid Obesity, not in acute distress. Awake following SKIN: Cool and dry, no generalized rash. Edema of both UE HEAD: Atraumatic. Normocephalic. No temporal or scalp tenderness. EYES: Pupils equal round and reactive. Scleral icterus. No injection or drainage. No petechia ENT: Intubated. NO nasal discharge NECK: Trachea midline. Supple, nontender, no meningeal signs. CARDIOVASCULAR: HS audible. Irregular rhythm RESPIRATORY: Decreased breath sounds bilaterally, [address], not much output. GASTROINTESTINAL: Abdomen soft nontender. Obese and not distended MUSCULOSKELETAL: Right foot with dry dressing NEUROLOGICAL: Alert and responding, following. Psych cooperative IV line sites ok. Assessment and Plan - Plan Fluid overload. Less likely to be Health care associated pneumonia Respiratory failure Osteomyelitis of right foot. PICC line in place r/o infection, thrombus. Morbid Obesity Sleep apnea based on clinical picture. Recs: Continue Teflaro IV (will cover MRSA and some gram negatives) Weaning per CCM, On bumex drip to try and help with fluid overload WBC also higher, will follow Continue Diflucan Follow C/S Monitor progress
--- NOTE | 2018-08-19 13:31 | P.PNCC ---
Subjective Subjective Remarks/Hospital Course: 73-year-old male with past medical history significant for morbid obesity, peripheral neuropathy, diabetes mellitus, hyperlipidemia and hypertension. Patient is a long-term resident of [facility] in reportedly is not very active and is mostly bedbound. Patient was brought into the emergency room by EMS from [facility] for shortness of breath and hypoxia. Per report patient had an episode of shortness of breath with O2 sats of 70% on room air however patient refused transport to the ER. Thereafter patient had another episode of shortness of breath and hypoxia. By this time patient had been treated with Zyvox for lower extremity wound for positive MRSA as well as recently started on Levaquin for pneumonia at the [facility]. Patient has a PICC line in place and has been treated with IV antibiotics. On arrival his blood pressure was 145/63, heart rate of 81, O2 sats 97% on 10 L simple mask. His blood gas was unremarkable. His creatinine was 1.93 and previously in May 2018 was 1.83. His chest x-ray showed bilateral lung consolidation possible element of pulmonary edema as well as small bilateral pleural effusion. On 08/09 patient became more hypoxemic again requiring the placement on the BiPAP ventilator and transferred to ICU. Critical care services were consulted for management of respiratory failure. 08/10: Afebrile. Currently on 4 L nasal cannula saturations are 90%. Patient normally wears CPAP/BiPAP at home according to patient. Since seen by Dr. Slim Estevez previous hospitalization. 08/11: Reconsulted this patient remains on BiPAP. Still appears to be normal sinus rhythm. Echocardiogram revealed dilated LV/LVH, left atrial enlargement. Possible calcified lesion left coronary cusp. Currently on furosemide 40 mg IV twice daily. Likely source of ARDS will likely need intubation. 08/12: intubated yesterday. right chest tube placed with > 1L output. CXR improved on the right, but with persistence of left plural effusion. Also, transthoracic echocardiography has failed to have adequate visualization of cardiac windows to rule in or rule out cardiogenic source of hypoxia. 08/13: good diuresis again. left chest tube placed yesterday with 1100cc output yesterday. right chest tube with only 60mL output. CHIKA done yesterday with Grade III diastolic dysfunction as well as probable left atrial appendage thrombus: on anticoagulation. 08/14: Orally intubated on mechanical ventilation. 08/15: Remains sedated, orally intubated on mechanical ventilation. Worsening BUN/creatinine noted. 08/16: Off sedation, more awake today, following commands including blinking. Remains orally intubated on mechanical ventilation. Had nonsustained V. tach yesterday after being started on dopamine for bradycardia. Remains on anticoagulation with heparin. Head CT done yesterday was negative for any bleed. MRI brain done today with no acute infarct. 08/17: Off sedation, awake and alert. Remains orally intubated on mechanical ventilation. Apneic episodes on initiating CPAP trials this morning. 08/18: Drowsy, arousable, orally intubated on mechanical ventilation. Remains on Bumex drip. Daily CPAP trials. If patient has apneic episodes will use SIMV with pressure support. SUBJECTIVE: 08/19: awake and alert. remains on bumex drip and mechanical ventilation. chest tubes with minimal output. Objective Vital Signs / I&O: Vital Signs 08/18/18 14:00 08/18/18 15:00 08/18/18 15:12 Temperature Pulse Rate 62 60 Respiratory Rate 11 L 9 L 8 L Blood Pressure 104/55 L 100/55 L Pulse Oximetry 100 100 100 08/18/18 16:00 08/18/18 17:00 08/18/18 20:00 Temperature 36.5 C 36.4 C Pulse Rate 57 L 60 58 L Respiratory Rate 17 19 12 Blood Pressure 91/54 L 95/50 L 109/55 L Pulse Oximetry 100 99 99 08/18/18 20:23 08/18/18 22:00 08/19/18 00:00 Temperature 36.5 C Pulse Rate 62 55 L 57 L Respiratory Rate 10 L 12 Blood Pressure 115/58 L Pulse Oximetry 100 98 08/19/18 00:33 08/19/18 00:59 08/19/18 04:00 Temperature 36.6 C Pulse Rate 57 L 58 L Respiratory Rate 8 L 10 L Blood Pressure 100/61 Pulse Oximetry 97 94 L 08/19/18 07:44 Temperature Pulse Rate Respiratory Rate 10 L Blood Pressure Pulse Oximetry 99 Intake & Output 08/18/18 08/19/18 08/19/18 18:59 06:59 18:59 Intake Total 968 / 968 1202 / 1202 Output Total 600 / 600 650 / 650 Balance 368 / 368 552 / 552 Weight 145.1 kg Intake: IV 700 / 700 504 / 504 Bumex Inj 25 mg In 100 ml @ 0.5 100 / 100 MG/HR 2 mls/hr IV.CONT .Q24H SHAHEED Rx#:[id number] Heparin/D5W 25,000 U/250 mL 25, 250 / 250 000 unit In 250 ml @ Per Protocol IV.CONT TITRATE PRN Rx #:[id number] Teflaro Inj 600 MG In NS Inj 200 / 200 200 / 200 100 ML @ 100 mls/hr IV.SIG Q8H SHAHEED Rx#:[id number] Cerebyx Inj 200 MGPE In NS Inj 54 / 54 50 ML @ 216 mls/hr IV.SIG Q12HR SHAHEED Rx#:[id number] KCl 20 mEq Premix Inj 20 meq In 400 / 400 100 ml @ 50 mls/hr IV.SIG Q2H SHAHEED Rx#:[id number] Oral 0 / 0 Tube Feeding 268 / 268 498 / 498 Tube Irrigant 200 / 200 Output: Urine Amount (Catheter) 600 / 600 650 / 650 Indwelling Urethral Catheter 600 / 600 650 / 650 Chest Tube Drainage 0 / 0 0 / 0 Left Mid-Axillary Chest 0 / 0 0 / 0 Right Mid-Axillary Chest 0 / 0 0 / 0 Other: Date of Last Bowel Movement 08/18/18 # Bowel Movements 1 1 Result Diagrams: 08/19/18 05:18 08/19/18 05:18 Objective Remarks: GENERAL: 73-year-old male, lying in bed, intubated, sedated SKIN: Cool and dry HEAD: Atraumatic. Normocephalic. EYES: Pupils equal and round. No scleral icterus. No injection or drainage. ENT: No nasal bleeding or discharge. Mucous membranes pink and moist. NECK: Trachea midline. No JVD. CARDIOVASCULAR: Regular rate and rhythm. RESPIRATORY: on mech vent, Diminished breath sounds. No wheezing. right chest tube in place with serous output, no air leak. left chest tube in place, serous output. GASTROINTESTINAL: Abdomen obese and protuberant. no guarding. MUSCULOSKELETAL: Extremities with right lower extremity with destruction of the second/third/fourth digits foot to bone. Currently covered with Juan bandage NEUROLOGICAL: RASS -1. awakens and follows commands. Assessment and Plan - Assessment and Plan Plan: Assessment: 73yM morbidly obese with refractory acute hypoxic and hypercarbic respiratory failure. Likely secondary to mixed systolic- and diastolic heart failure exacerbation. forced diuresis. JOSE worsening. although more awake today , organ function is worse. would be hospice appropriate. Neuro/Psych: Depression Peripheral neuropathy History of right frontal CVA Off all sedation. Fentanyl for sedation as needed. Follow neuro status. Neurology consult noted. Follow-up EEG. MRI brain done on 08/16 with no acute infarct. Head CT done on 08/15 with no ICH. Continue acetaminophen 650 every 6 hours as needed fever Morphine sulfate 2 mg IV every 4 hours as needed pain 6 or 10 Gabapentin 300 mg p.o. every 6 hours peripheral neuropathy Duloxetine 30 mg daily for depression continue CV: Essential hypertension Hyperlipidemia History of non-STEMI EF 35-40% Grade III Diastolic Dysfunction Acute Congestive Heart Failure Exacerbation, mixed systolic- and diastolic- type. Left atrial appendage thrombus Symptomatic Bradycardia Continue amlodipine 5 mg daily, carvedilol 3.125 mg twice daily and hydralazine 50 mg 3 times daily for hypertension Continue atorvastatin 20 mg daily for hyperlipidemia Last echo 06/12 revealed LVEF - hard to assess but suspect mildly impaired. Current echocardiogram 06/11 revealed EF around 55%. Dilated LV/LVH and left atrial enlargement. PAP 26 MAC. Possible left coronary cusp calcification. CHIKA 08/13: EF 35-40%, Grade III Diastolic Dysfunction, probable left atrial thrombus. continue bumex infusion at 0.5mg/hr metolazone 5mg po BID Low-dose dopamine for bradycardia as needed Resp: Acute hypoxic and hypercarbic respiratory failure- persistent OHS Bilateral pleural effusions Pulmonary edema intubated 08/11. severe bilateral pulmonary infiltrates as well as bilateral large pleural effusions likely cause is multifactorial- large cardiogenic pulmonary edema component right chest tube placed 08/11 left chest tube placed 08/12 can likely d/c chest tubes today. Ventilator bundle Titrate to keep saturations greater than 90% Albuterol/ipratropium aerosols every 6 hours with albuterol aerosols every 2 hours as needed dyspnea GI: Gastroesophageal reflux disease Hypoalbuminemia Severe acute protein calorie malnutrition Glucerna 1.5 goal 60 cc an hour GI prophylaxis/home medication pantoprazole 40 mg daily Docusate sodium/senna 1 tablet twice daily for bowel regimen along with polythene glycol 17 g twice daily pre-albumin 12 on 08/13 : BPH Continue tamsulosin 0.4 mg daily for BPH Endo: Diabetes mellitus increase to high scale SSI, q4h Insulin detemir increase to 25 units twice daily TSH was 2.77 Renal: Acute kidney injury superimposed on CKD- worsening Chronic kidney disease stage II Renal ultrasound scan revealed increased echogenicity to the right kidney Creatinine continues to increase. Being diuresed. Nephrology consult requested 08/15 keep maldonado for accurate q1h I/Os. Monitor urine output Accurate I's and O's Heme: Thrombocytopenia Normocytic anemia Left Atrial appendage thrombus Monitor CBCs daily. Follow trends. No indication for transfusion of blood products at this time. therapeutic anticoagulation with heparin drip for ENID thrombus. 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 Fifth metatarsal head with destruction. Will likely need amputation Followed by podiatry. Access -Right upper extremity PICC line. Prophylaxis -GI -lansoprazole -DVT -heparin drip Critical care time 37 minutes, exclusive of separately billable procedures.
[2018-08-19] MEDS: Heparin Drip 25,000 UNIT/250 ML BAG IV.CONT PRN (13:44)
[2018-08-19] MEDS: DOPamine 400 MG/250 ML Premix 400 MG/250 ML BAG IV.CONT PRN (13:53)
--- NOTE | 2018-08-19 16:21 | P.PNPAL ---
Palliative care SW asked to follow-up on a few concerns of Mr. Meléndez's with his belongings at [facility]. He is inquiring about a table to pay his bills and his power chair. Spoke with transitional hemodialysis patient care specialist, Maria Victoria. She reports Mr. Meléndez came to [facility] from his apartment and much of his belongings were left there. States she believes his sister was recently in town to assist with clearing out the apartment and may have picked up his tablet. Maria Victoria believes his power chair is currently at the facility. Maria Victoria is going to speak with staff and get back with palliative care regarding this concerns. Patient is meeting with [facility] with plan to discharge with hospice services. Request line up worker to follow-up on above concerns if not addressed prior to discharge from hospital. Palliative care will continue to follow throughout hospitalization.
--- NOTE | 2018-08-19 16:36 | P.PNPAL ---
Reason for Visit Reason for visit: a. To assist with evaluation and management of symptoms including: Pain, dyspnea, debility. b. To assist medical decision maker(s) with: better understanding of current medical conditions; weighing benefits/burdens of medical treatment options; making medical treatment decisions. Subjective Subjective/Interval History: Patient seen and examined in ICU. No family or friends at bedside. Discussed with Dr. Wu and nurses. Patient remains on mechanical ventilator on CPAP. He denies shortness of breath. He is alert, following commands and mouthing words. He indicates again, he wants the tube removed and does not want to go back on machines. Bilateral chest tubes remain in place. Remains on heparin and Bumex drips. Creatinine continues to rise 3.36. 08/15/18 urine culture + sarah glabrata. He has some back pain and throat pain, denies need for medication during my visit. Unable to qualify due to ETT, I am unable to understand him. He also denies shortness of breath. Patient seems to remember me from my visit yesterday. I asked if he wanted me to review his medial problems, he nods yes. I reviewed need for mech vent and that we may be able to remove the tubes today. He nods yes in agreement. He again indicated he did not want to be prolonged my tubes and machines. I explained I would speak with the doctor and let him know if we thought we could get the tubes out today. Left message for his sister, Lindsey ([facility]) to return call for medical update and conversation with patient. 2;50pm: Arrived to unit nurse and respiratory therapy at bedside, patient is medically extubated. Following extubation he is talking and appreciative to have the tubes out. Lengthy conversation with patient to review medical problems , hospital/ ICU course and prognosis. He is insightful and asking appropriate questions. I reviewed options of reintubation which would require trach and PEG , he again tells me he does not want trach and PEG. We also talked about transition to comfort measures with hospice support. After about 45 minutes of conversation he tells me he would like hospice services. He tells me the "only thing he is afraid of is to alone." He hopes for a peaceful . He is also asking for his wheelchair and tablet, asked Lianna Puente LCSW and hospice to follow up for him. Family/Friend Interactions: Left message for Lindsey urias to return call. Spoke with Lindsey urias to provide medical update. She supports patient decision for comfort measures. Advised plan to return to [facility] with hospice services once arrangements made. Asked nurse if she can assist in bringing phone to patient bedside to speak with his sister. Advance Directives Health Care Surrogate: Copy in medical record Advance Directives Date on File: 06/15/18 Health Care Surrogate Name and Number: Lindsey Chand, sister: [phone] Significant change in goals:: NO CODE (DNR/DNI). Patient elects to transition to comfort measures with hospice support. Objective Vital Signs: Vital Signs 08/18/18 16:00 08/18/18 17:00 08/18/18 20:00 Temperature 97.7 F 97.6 F Pulse Rate 57 L 60 58 L Respiratory Rate 17 19 12 Blood Pressure 91/54 L 95/50 L 109/55 L Pulse Oximetry 100 99 99 08/18/18 20:23 08/18/18 22:00 08/19/18 00:00 Temperature 97.7 F Pulse Rate 62 55 L 57 L Respiratory Rate 10 L 12 Blood Pressure 115/58 L Pulse Oximetry 100 98 08/19/18 00:33 08/19/18 00:59 08/19/18 04:00 Temperature 97.8 F Pulse Rate 57 L 58 L Respiratory Rate 8 L 10 L Blood Pressure 100/61 Pulse Oximetry 97 94 L 08/19/18 07:44 Temperature Pulse Rate Respiratory Rate 10 L Blood Pressure Pulse Oximetry 99 Intake & Output 08/18/18 08/19/18 08/19/18 18:59 06:59 18:59 Intake Total 968 / 968 1202 / 1202 500 / 500 Output Total 600 / 600 650 / 650 Balance 368 / 368 552 / 552 500 / 500 Weight 145.1 kg Intake: IV 700 / 700 504 / 504 500 / 500 Bumex Inj 25 mg In 100 ml @ 0.5 100 / 100 MG/HR 2 mls/hr IV.CONT .Q24H [facility] Rx#:[id number] DOPamine 400 MG/250 ML Premix 250 / 250 400 mg In 250 ml @ 3 MCG/KG/MIN 17.516 mls/hr IV.CONT TITRATE PRN Rx#:[id number] Heparin/D5W 25,000 U/250 mL 25, 250 / 250 250 / 250 000 unit In 250 ml @ Per Protocol IV.CONT TITRATE PRN Rx #:[id number] Teflaro Inj 600 MG In NS Inj 200 / 200 200 / 200 100 ML @ 100 mls/hr IV.SIG Q8H [facility] Rx#:[id number] Cerebyx Inj 200 MGPE In NS Inj 54 / 54 50 ML @ 216 mls/hr IV.SIG Q12HR [facility] Rx#:[id number] KCl 20 mEq Premix Inj 20 meq In 400 / 400 100 ml @ 50 mls/hr IV.SIG Q2H [facility] Rx#:[id number] Oral 0 / 0 Tube Feeding 268 / 268 498 / 498 Tube Irrigant 200 / 200 Output: Urine Amount (Catheter) 600 / 600 650 / 650 Indwelling Urethral Catheter 600 / 600 650 / 650 Chest Tube Drainage 0 / 0 0 / 0 Left Mid-Axillary Chest 0 / 0 0 / 0 Right Mid-Axillary Chest 0 / 0 0 / 0 Other: Date of Last Bowel Movement 08/18/18 # Bowel Movements 1 1 Physical Exam: CONSTITUTIONAL/GENERAL: This is a morbidly obese gentleman, critically ill patient, on mech vent. TUBES/LINES/DRAINS: ETT, OG, PIV right, PIV left upper, bilateral chest tubes, podus boot on right. SKIN: Ecchymoses on upper extremities. Dressing noted on right foot. Scabs noted on right hand. Skin temperature cool. ENT: Grossly normal hearing, opens eyes to voice. Throat difficult to visualize due to tubes. CARDIOVASCULAR: S1, S2, irregular, distant heart tones. RESPIRATORY/CHEST: On mech vent, diminished breath sounds bilaterally. GASTROINTESTINAL: Abdomen protuberant, soft. No guarding. Bowel sounds present. GENITOURINARY: Without palpable bladder distension. Greer to bedside drainage. MUSCULOSKELETAL: Right foot with dressing in place. Podus boot on right in place. NEUROLOGICAL: Off sedation, opens eyes, tracking, following commands, nods yes/ no to questions. Mouthing words appropriately. PSYCHIATRIC: Awakens easily, calm. Diagnostic Tests Laboratory: Laboratory Results - last 72 hr 08/16/18 08/17/18 08/17/18 17:24 00:04 04:08 WBC RBC Hgb Hct MCV MCH MCHC RDW Plt Count MPV APTT 46.9 H Sodium Potassium Chloride Carbon Dioxide Anion Gap BUN Creatinine Estimated GFR POC Glucose 300 H 331 H Random Glucose Calcium Phosphorus Magnesium 08/17/18 08/17/18 08/17/18 04:08 04:08 05:49 WBC 8.4 RBC 3.14 L Hgb 8.8 L Hct 26.9 L MCV 85.8 MCH 28.1 MCHC 32.7 RDW 16.5 Plt Count 124 L MPV 9.2 APTT Sodium 132 L Potassium 3.3 L D Chloride 87 L D Carbon Dioxide 33.9 H Anion Gap 11 BUN 81 H Creatinine 2.48 H Estimated GFR 26 L POC Glucose 372 H Random Glucose 322 H D Calcium 9.2 Phosphorus 4.0 Magnesium 2.2 08/17/18 08/17/18 08/18/18 11:19 17:45 00:24 WBC RBC Hgb Hct MCV MCH MCHC RDW Plt Count MPV APTT Sodium Potassium Chloride Carbon Dioxide Anion Gap BUN Creatinine Estimated GFR POC Glucose 272 H 281 H 277 H Random Glucose Calcium Phosphorus Magnesium 08/18/18 08/18/18 08/18/18 04:09 04:09 04:09 WBC 11.2 H RBC 3.21 L Hgb 8.9 L Hct 27.0 L MCV 84.0 MCH 27.8 MCHC 33.1 RDW 16.8 Plt Count 123 L MPV 9.2 APTT 46.0 H Sodium 134 L Potassium 2.9 L* Chloride 88 L Carbon Dioxide 33.0 H Anion Gap 13 BUN 85 H Creatinine 2.85 H Estimated GFR 22 L POC Glucose Random Glucose 207 H D Calcium 8.8 Phosphorus 4.2 Magnesium 2.3 08/18/18 08/18/18 08/18/18 05:52 11:41 17:00 WBC RBC Hgb Hct MCV MCH MCHC RDW Plt Count MPV APTT Sodium Potassium Chloride Carbon Dioxide Anion Gap BUN Creatinine Estimated GFR POC Glucose 233 H 273 H 224 H Random Glucose Calcium Phosphorus Magnesium 08/18/18 08/18/18 08/19/18 21:40 23:53 05:18 WBC 10.6 RBC 3.06 L Hgb 8.6 L Hct 26.7 L MCV 87.1 MCH 28.2 MCHC 32.3 RDW 17.0 Plt Count 100 L MPV 9.3 APTT Sodium Potassium 3.7 D Chloride Carbon Dioxide Anion Gap BUN Creatinine Estimated GFR POC Glucose 237 H Random Glucose Calcium Phosphorus Magnesium 08/19/18 08/19/18 08/19/18 05:18 05:37 12:19 WBC RBC Hgb Hct MCV MCH MCHC RDW Plt Count MPV APTT Sodium 133 L Potassium 3.9 Chloride 86 L Carbon Dioxide 34.4 H Anion Gap 13 BUN 95 H Creatinine 3.36 H Estimated GFR 18 L POC Glucose 235 H 322 H Random Glucose 221 H Calcium 8.5 Phosphorus 7.7 H D Magnesium 2.7 H 08/19/18 12:54 WBC RBC Hgb Hct MCV MCH MCHC RDW Plt Count MPV APTT 56.9 H D Sodium Potassium Chloride Carbon Dioxide Anion Gap BUN Creatinine Estimated GFR POC Glucose Random Glucose Calcium Phosphorus Magnesium Result Diagrams: 08/19/18 05:18 08/19/18 05:18 Microbiology: Microbiology 08/11/18 17:02 Acid Fast Bacilli Smear - Final Abscess - Lung No acid fast bacilli seen Mycobacterial Culture - Preliminary No growth in 1 week 08/11/18 17:02 Fungal Smear - Final Abscess - Lung No fungal elements seen Fungal Culture - Preliminary No growth in 1 week 08/15/18 17:15 Urine Culture - Final Catheterized Urine Sarah glabrata Imaging: Foot X-Ray 08/06/18 00:00 CONCLUSION: Destructive changes at the fifth metatarsal head and possibly the fourth metatarsal head. Extremity Arterial Study 08/08/18 00:00 CONCLUSION: 1. Moderate reduction of the toe brachial indices bilaterally suggesting microangiopathic disease. 2. ABIs within the normal range bilaterally. Foot MRI 08/08/18 00:00 CONCLUSION: 1. Findings consistent with marrow edema and osteomyelitis involving the fourth and fifth metatarsals. The base of the fifth is spared. Proximal one third of the fourth is spared. Chest CT 08/11/18 13:44 CONCLUSION: 1. Diffuse bilateral pulmonary infiltrates and effusions. 2. Atherosclerosis. Venous Doppler Study 08/12/18 00:00 CONCLUSION: 1. The study is negative for lower extremity deep venous thrombosis. Head CT 08/15/18 09:27 CONCLUSION: 1. No acute hemorrhage or mass effect identified. 2. Focal encephalomalacia in the left frontal lobe. 3. Opacification of the mastoid air cells bilaterally which is new from the prior study consistent with acute mastoiditis. 4. Moderate atrophic change. . Head MRI 08/16/18 00:00 CONCLUSION: 1. Remote left frontal mid convexity infarct. 2. Senescent changes with mild periventricular ischemic white matter demyelination. No acute abnormality. Specifically, no acute infarction or hemorrhage. Chest X-Ray 08/16/18 05:00 CONCLUSION: Diffuse pulmonary consolidation likely related to edema. These processes are worse at the bases and on the right. Procedures: * Bilateral chest tubes * 08/11/18 - Intubated. Assessment and Plan - Disease Oriented Problem List (1) Diastolic heart failure (2) PNA (pneumonia) (3) Pleural effusion (4) Osteomyelitis of ankle and foot (5) Kidney disease (6) Morbid obesity (7) Diabetes (8) Hypertension (9) JOSE (acute kidney injury) (10) SHEELA (obstructive sleep apnea) (11) COPD (chronic obstructive pulmonary disease) (12) Thrombus of left atrial appendage Pertinent Non-Medical Issues: Psychosocial: . Supported by his 2 sisters, Lindsey and Frances who live in [place]. Spiritual: Whitewasher visits requested. Legal: Patient is not capacitated to make his own health care decisions, uncertain if he will regain capacity. Called [facility] to see if they have any written advance directives, copy of written designation of health care surrogate received dated 06/15/18 naming his sister, Lindsey Chand as health care surrogate # [phone]. Ethical issues impacting care: No known concerns at this time. Important Contacts: * Lindsey Chand, sister/ [facility]: [phone] * Ria Alegria, sister: [phone] Prognosis: Patient is hospice appropriate. Code Status: No Code DNR Plan: * Patient is not capacitated to make his own health care decisions, uncertain if he will regain capacity. Called [facility] to see if they have any written advance directives, copy of written designation of health care surrogate received dated 06/15/18 naming his sister, Lindsey Chand as health care surrogate # [phone]. * NO CODE. Patient does not want to be reintubated and does not want cardiac resuscitation. Patient signed [place] DNR. * Patient does not to be reintubated, he wants to peacefully and naturally when God says its his time. He elects hospice and hopes to return to [facility]. * Hospice consulted. DC pending arrangements, likely 08/20/18. * Spoke with sister, Lindsey to provide medical update. She supports his decision for transition to comfort measures. * Discussed with Dr. Wu and nurses. * Family does NOT want any information shared with friends of patient, including but not limited to Elsie. * SYMPTOMS: Pain: due to chronic debility, osteomyelitis, wounds, pneumonia, tubes, restraints, etc. No obvious signs of pain today, on fentanyl. Will continue to monitor. Dyspnea: post 2 chest tubes. On mech vent, not breathing over. No new medication recommendations at this time. * Palliative care will continue to follow to assist with symptom management and clarification of goals of medical treatment as needed. Attestation Attestation: To help prompt me to consider important information that might be impacting today's encounter and assessment, information from prior notes written by myself or my colleagues may have been "brought forward" into today's note. My signature on this note, however, is an attestation that I personally performed the exam, history, and/or decision-making noted today, and, unless otherwise indicated, the interactions with patient, family, and staff as well as the review of records all occurred today. I also attest that the listed assessment and stated plan reflect my best clinical judgment today based on the combination of historical information, prior notes, and today's exam/ interactions. 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
[2018-08-19] MEDS: amLODIPine 5 MG Tablet PO SCH (17:24)
[2018-08-19] MEDS: Senna/Docusate Sodium 8.6/50 MG Tablet PO SCH ×2 (17:24→20:30)
[2018-08-19] MEDS: guaiFENesin 600 MG ER Tablet PO SCH ×2 (17:24→20:30)
--- NOTE | 2018-08-19 17:51 | P.PNPL ---
Subjective Interval history: 73 YOWM with COPD,SHEELA,Resp insuff Developed RF, intubated CT chest showed Bilat infilt and pl eff Extubated today On 3LNC Alert , awake , follows commands Minimal chest tube drainage Physical Exam Vital signs: Vital Signs 08/18/18 20:00 08/18/18 20:23 08/18/18 22:00 Temperature 97.6 F Pulse Rate 58 L 62 55 L Respiratory Rate 12 10 L Blood Pressure 109/55 L Pulse Oximetry 99 100 08/19/18 00:00 08/19/18 00:33 08/19/18 00:59 Temperature 97.7 F Pulse Rate 57 L 57 L Respiratory Rate 12 8 L Blood Pressure 115/58 L Pulse Oximetry 98 97 08/19/18 04:00 08/19/18 07:44 Temperature 97.8 F Pulse Rate 58 L Respiratory Rate 10 L 10 L Blood Pressure 100/61 Pulse Oximetry 94 L 99 Intake & Output 08/18/18 08/19/18 08/19/18 18:59 06:59 18:59 Intake Total 968 / 968 1202 / 1202 500 / 500 Output Total 600 / 600 650 / 650 Balance 368 / 368 552 / 552 500 / 500 Weight 145.1 kg Intake: IV 700 / 700 504 / 504 500 / 500 Bumex Inj 25 mg In 100 ml @ 0.5 100 / 100 MG/HR 2 mls/hr IV.CONT .Q24H [facility] Rx#:[id number] DOPamine 400 MG/250 ML Premix 250 / 250 400 mg In 250 ml @ 3 MCG/KG/MIN 17.516 mls/hr IV.CONT TITRATE PRN Rx#:[id number] Heparin/D5W 25,000 U/250 mL 25, 250 / 250 250 / 250 000 unit In 250 ml @ Per Protocol IV.CONT TITRATE PRN Rx #:[id number] Teflaro Inj 600 MG In NS Inj 200 / 200 200 / 200 100 ML @ 100 mls/hr IV.SIG Q8H [facility] Rx#:[id number] Cerebyx Inj 200 MGPE In NS Inj 54 / 54 50 ML @ 216 mls/hr IV.SIG Q12HR [facility] Rx#:[id number] KCl 20 mEq Premix Inj 20 meq In 400 / 400 100 ml @ 50 mls/hr IV.SIG Q2H [facility] Rx#:[id number] Oral 0 / 0 Tube Feeding 268 / 268 498 / 498 Tube Irrigant 200 / 200 Output: Urine Amount (Catheter) 600 / 600 650 / 650 Indwelling Urethral Catheter 600 / 600 650 / 650 Chest Tube Drainage 0 / 0 0 / 0 Left Mid-Axillary Chest 0 / 0 0 / 0 Right Mid-Axillary Chest 0 / 0 0 / 0 Other: Date of Last Bowel Movement 08/18/18 08/18/18 # Bowel Movements 1 1 GENERAL: Obese WM, on NC, no distress SKIN: Warm and dry. HEAD: Normocephalic. EYES: No scleral icterus. No injection or drainage. NECK: Supple, trachea midline. No JVD or lymphadenopathy. CARDIOVASCULAR: Regular rate and rhythm without murmurs, gallops, or rubs. RESPIRATORY: Breath sounds equal bilaterally. No accessory muscle use. Bilat chest tubes, minimal drainage. GASTROINTESTINAL: Abdomen soft, non-tender, nondistended. MUSCULOSKELETAL: No cyanosis, or edema. BACK: Nontender without obvious deformity. No CVA tenderness. - Urinary Catheter Management Indwelling Urethral Catheter Cath placed during this visit: yes Reason for continuing: Acute urinary retention Insertion date: 08/11/18 Insertion time: 12:00 Assessment and Plan - Plan IMPRESSION: 1. Respiratory failure.s/p extubation 2. Hypoxia. 3. Morbid obesity. 4. Likely sleep apnea. 5. Osteomyelitis. 6. Pneumonia. 7. Pulmonary edema. 8. Renal insufficiency. 9. Pleural effusion, s/p rt chest tube PLAN: Diurease Monitor Lytes chest tube to sucrion Abx per ID Ceftaroline q 8 hrs Palliative care following Accepted Hospice DC plans for NH with hospice
[2018-08-19] MEDS: Finasteride 5 MG Tablet PO SCH (18:37)
[2018-08-19] MEDS: Insulin NovoLIN Regular Correctional Sugar Inj SQ SCH ×2 (18:37→21:58)
--- NOTE | 2018-08-19 22:34 | P.PNCA ---
Subjective Interval history: Currently on CPAP trial Awake on the vent, tracking with eyes, follows commands Medications and Allergies Active Medications: Active Medications Acetaminophen (Tylenol) 650 mg PO Q6H PRN PRN Reason: Temp > 100.4 Al Hydroxide/Mg Hydroxide (Milk Of Rasheed Olmedo) 30 ml PO Q12H PRN PRN Reason: Mild Constipation Albuterol (Albuterol Neb (Prn)) 2.5 mg NEB Q2HR NEB PRN PRN Reason: DYSPNEA Last Admin: 08/18/18 20:23 Dose: 2.5 mg Amlodipine Besylate (Norvasc) 5 mg PO DAILY [facility] Last Admin: 08/19/18 17:24 Dose: Not Given Artificial Tears (Refresh Tears 0.5% Opth Drops) 1 drop EACH EYE BID [facility] Last Admin: 08/19/18 20:31 Dose: 1 drop Aspirin (Aspirin) 325 mg PO DAILY [facility] Last Admin: 08/19/18 08:56 Dose: 325 mg Atorvastatin Calcium (Lipitor) 20 mg PO HS [facility] Last Admin: 08/19/18 20:30 Dose: Not Given Bisacodyl (Dulcolax Supp) 10 mg RECTAL DAILY PRN PRN Reason: SEVERE CONSITIPATION Carvedilol (Coreg) 3.125 mg PO BID [facility] Last Admin: 08/19/18 20:29 Dose: Not Given Chlorhexidine Gluconate (Chlorhexidine 2% Cloth) 1 pack TOPICAL PRN PRN PRN Reason: FOR HYGIENIC CARE Chlorhexidine Gluconate (Peridex 0.12% Oral Kit) 15 ml OROPHARYNG BID@0800, 2000 [facility] Last Admin: 08/19/18 20:28 Dose: 15 ml Dextrose (D50w Vial) 50 ml IV.PUSH UNSCH PRN PRN Reason: PER HYPOGLYCEMIA PROTOCOL Duloxetine HCl (Cymbalta) 30 mg PO DAILY [facility] Last Admin: 08/19/18 08:56 Dose: 30 mg Finasteride (Proscar) 5 mg PO DAILY@1800 [facility] Last Admin: 08/19/18 18:37 Dose: Not Given Fluconazole (Diflucan) 100 mg PO DAILY [facility] Last Admin: 08/19/18 08:56 Dose: 100 mg Gabapentin (Neurontin) 300 mg PO Q6HR [facility] Last Admin: 08/19/18 18:37 Dose: Not Given Glucagon (Glucagon Inj) 1 mg OTHER PRN PRN PRN Reason: for Hypoglycemia Protocol Guaifenesin (Mucinex Er) 600 mg PO BID [facility] Last Admin: 08/19/18 20:30 Dose: Not Given Norepinephrine Bitartrate 16 (mg/ Sodium Chloride) 250 mls @ 1.87 mls/hr IV.CONT TITRATE PRN; Protocol PRN Reason: See Protocol Bumetanide (Bumex Inj) 25 mg in 100 mls @ 2 mls/hr IV.CONT .Q24H [facility] Last Admin: 08/18/18 17:02 Dose: 0.5 mg/hr, 2 mls/hr Heparin Sodium/Dextrose (Heparin/D5w 25,000 U/250 Ml) 25,000 unit in 250 mls @ 0 mls/hr IV.CONT TITRATE PRN; Protocol PRN Reason: Per Protocol Last Admin: 08/19/18 13:44 Dose: 1,800 units/hr, 18 mls/hr Ceftaroline Fosamil 600 mg/ (Sodium Chloride) 100 mls @ 100 mls/hr IV.SIG Q8H [facility] Last Admin: 08/19/18 21:57 Dose: 100 mls/hr Dopamine HCl/Dextrose (Dopamine 400 Mg/250 Ml Premix) 400 mg in 250 mls @ 17.516 mls/hr IV.CONT TITRATE PRN; Protocol PRN Reason: PER PROTOCOL Last Admin: 08/19/18 13:53 Dose: 1 mcg/kg/min, 5.84 mls/hr Fosphenytoin Sodium 200 mgpe/ (Sodium Chloride) 54 mls @ 216 mls/hr IV.SIG Q12HR [facility] Last Admin: 08/19/18 20:28 Dose: 216 mls/hr Insulin Detemir (Levemir Inj) 25 unit SQ BID [facility] Last Admin: 08/19/18 20:29 Dose: Not Given Insulin Human Regular (Novolin R Correctional Sugar Inj) 0 units SQ Q4HR [facility]; Protocol Last Admin: 08/19/18 21:58 Dose: Not Given Lactulose (Lactulose Liq) 30 ml PO DAILY PRN PRN Reason: SEVERE CONSITIPATION Lansoprazole (Prevacid Solutab) 30 mg NG/OG DAILY [facility] Last Admin: 08/19/18 08:56 Dose: 30 mg Lorazepam (Ativan Inj) 1 mg IV.PUSH Q2H PRN PRN Reason: anxiety, SOB, tachypnea Miscellaneous Medication () 1 each OROPHARYNG 0000,0400,1200,1600 [facility] Last Admin: 08/19/18 17:24 Dose: Not Given Morphine Sulfate (Morphine Inj) 6 mg IV.PUSH Q2H PRN PRN Reason: pain, SOB, Tachypnea Ondansetron HCl (Zofran Inj) 4 mg IV.PUSH Q6H PRN PRN Reason: NAUSEA OR VOMITING Last Admin: 08/16/18 00:57 Dose: 4 mg Polyethylene Glycol (Miralax) 17 gm PO BID [facility] Last Admin: 08/19/18 20:30 Dose: Not Given Potassium Chloride (K-Dur) 20 meq PO BID [facility] Last Admin: 08/19/18 20:29 Dose: Not Given Senna/Docusate Sodium (Isabella-Colace) 1 tab PO BID [facility] Last Admin: 08/19/18 20:30 Dose: Not Given Sennosides (Senokot) 17.2 mg PO Q12H PRN PRN Reason: Moderate Constipation Sodium Chloride (Ns Flush) 2 ml IV.FLUSH BID [facility] Last Admin: 08/19/18 20:30 Dose: 2 ml Sodium Chloride (Ns Flush) 2 ml IV.FLUSH PRN PRN PRN Reason: FLUSH AFTER USING IV ACCESS Tamsulosin HCl (Flomax) 0.4 mg PO BID [facility] Last Admin: 08/19/18 20:29 Dose: Not Given Terbutaline Sulfate (Brethine Inj) 1 mg SQ UNSCH PRN PRN Reason: For Extravasation Allergies Allergy/AdvReac Type Severity Reaction Status Date / Time No Known Allergies Allergy Verified 08/06/18 01:24 Home Medications Medication Instructions Recorded Confirmed Type aspirin 325 mg PO DAILY 06/01/18 06/01/18 History atorvastatin [Lipitor] 20 mg PO HS 06/01/18 08/06/18 History duloxetine [Cymbalta] 30 mg PO DAILY 06/01/18 06/01/18 History dutasteride [Avodart] 0.5 mg PO QPM 06/01/18 06/01/18 History gabapentin 300 mg PO Q6HR 06/01/18 06/01/18 History pantoprazole [Protonix] 40 mg PO DAILY 06/01/18 06/01/18 History tamsulosin [Flomax] 0.4 mg PO BID 06/01/18 08/06/18 History Physical Exam Vital signs: Vital Signs 08/18/18 23:00 08/19/18 00:00 08/19/18 00:33 Temperature 97.7 F Pulse Rate 52 L 57 L Respiratory Rate 19 8 L 8 L Blood Pressure 106/57 L 115/58 L Pulse Oximetry 98 94 L 97 08/19/18 00:59 08/19/18 01:00 08/19/18 02:00 Temperature Pulse Rate 57 L 63 53 L Respiratory Rate 22 12 Blood Pressure 119/59 L 109/57 L Pulse Oximetry 97 91 L 08/19/18 03:00 08/19/18 04:00 08/19/18 04:02 Temperature 97.8 F Pulse Rate 54 L 58 L 63 Respiratory Rate 13 10 L 13 Blood Pressure 107/59 L 100/61 100/61 Pulse Oximetry 95 94 L 93 L 08/19/18 05:00 08/19/18 06:00 08/19/18 07:00 Temperature Pulse Rate 75 57 L 57 L Respiratory Rate 16 8 L 10 L Blood Pressure 105/56 L 103/51 L 109/55 L Pulse Oximetry 100 97 96 08/19/18 07:44 08/19/18 08:00 08/19/18 09:00 Temperature Pulse Rate 57 L 58 L Respiratory Rate 10 L 12 14 Blood Pressure 116/54 L 110/52 L Pulse Oximetry 99 100 100 08/19/18 10:00 08/19/18 11:00 08/19/18 12:00 Temperature Pulse Rate 58 L 58 L 59 L Respiratory Rate 9 L 8 L 13 Blood Pressure 108/55 L 119/56 L 115/55 L Pulse Oximetry 99 100 100 08/19/18 13:00 08/19/18 14:00 08/19/18 15:00 Temperature Pulse Rate 59 L 58 L 67 Respiratory Rate 10 L 11 L 28 H Blood Pressure 121/58 L 117/56 L 113/72 Pulse Oximetry 100 100 97 08/19/18 16:00 08/19/18 16:01 08/19/18 17:00 Temperature Pulse Rate 59 L 62 65 Respiratory Rate 10 L 11 L 10 L Blood Pressure 118/58 L Pulse Oximetry 100 100 98 08/19/18 17:01 08/19/18 18:00 08/19/18 19:00 Temperature Pulse Rate 62 62 64 Respiratory Rate 9 L 17 23 Blood Pressure 110/54 L 122/57 L 99/53 L Pulse Oximetry 100 100 08/19/18 19:54 08/19/18 20:00 08/19/18 21:00 Temperature 98.0 F Pulse Rate 64 67 Respiratory Rate 11 L 8 L Blood Pressure 108/53 L Pulse Oximetry 100 100 99 08/19/18 21:01 08/19/18 22:00 08/19/18 22:01 Temperature Pulse Rate 62 62 62 Respiratory Rate 8 L 9 L 8 L Blood Pressure 110/51 L 109/51 L Pulse Oximetry 99 100 100 Intake & Output 08/19/18 08/19/18 08/20/18 06:59 18:59 06:59 Intake Total 1202 / 1202 654 / 654 Output Total 650 / 650 1250 / 1250 Balance 552 / 552 -596 / -596 Weight 145.1 kg Intake: IV 504 / 504 654 / 654 DOPamine 400 MG/250 ML Premix 250 / 250 400 mg In 250 ml @ 3 MCG/KG/MIN 17.516 mls/hr IV.CONT TITRATE PRN Rx#:[id number] Heparin/D5W 25,000 U/250 mL 25, 250 / 250 250 / 250 000 unit In 250 ml @ Per Protocol IV.CONT TITRATE PRN Rx #:[id number] Teflaro Inj 600 MG In NS Inj 200 / 200 100 / 100 100 ML @ 100 mls/hr IV.SIG Q8H [facility] Rx#:[id number] Cerebyx Inj 200 MGPE In NS Inj 54 / 54 54 / 54 50 ML @ 216 mls/hr IV.SIG Q12HR [facility] Rx#:[id number] Tube Feeding 498 / 498 Tube Irrigant 200 / 200 Output: Urine Amount (Catheter) 650 / 650 1250 / 1250 Indwelling Urethral Catheter 650 / 650 1250 / 1250 Chest Tube Drainage 0 / 0 Left Mid-Axillary Chest 0 / 0 Right Mid-Axillary Chest 0 / 0 Other: Date of Last Bowel Movement 08/18/18 08/18/18 08/18/18 # Bowel Movements 1 Narrative: GENERAL: in NAD, SKIN: Warm and dry. HEAD: Atraumatic. Normocephalic. ENT: No nasal bleeding or discharge. Mucous membranes pink and moist. NECK: Intubated CARDIOVASCULAR: Regular rate and rhythm. RESPIRATORY: Intubated GASTROINTESTINAL: Abdomen soft, non-tender, nondistended. MUSCULOSKELETAL: No gross deformity NEUROLOGICAL: Intubated but following simple commands PSYCHIATRIC: Intubated, calm - Urinary Catheter Management Indwelling Urethral Catheter Cath placed during this visit: yes Reason for continuing: Acute urinary retention Insertion date: 08/11/18 Insertion time: 12:00 Results 08/19/18 05:18 08/19/18 05:18 Coagulation 08/18/18 08/19/18 Range/Units 04:09 12:54 APTT 46.0 H 56.9 H D (24.3-30.1) sec CBC 08/18/18 08/19/18 Range/Units 04:09 05:18 WBC 11.2 H 10.6 (4.0-11.0) th/mm3 RBC 3.21 L 3.06 L (4.50-5.90) mil/mm3 Hgb 8.9 L 8.6 L (13.0-17.0) gm/dL Hct 27.0 L 26.7 L (39.0-51.0) % Plt Count 123 L 100 L (150-450) th/mm3 Comprehensive Metabolic Panel 08/18/18 08/18/18 08/19/18 Range/Units 04:09 21:40 05:18 Sodium 134 L 133 L (136-145) meq/L Potassium 2.9 L* 3.7 D 3.9 (3.5-5.1) meq/L Chloride 88 L 86 L (98-107) meq/L Carbon Dioxide 33.0 H 34.4 H (21.0-32.0) meq/L BUN 85 H 95 H (7-18) mg/dL Creatinine 2.85 H 3.36 H (0.60-1.30) mg/dL Calcium 8.8 8.5 (8.5-10.1) mg/dL Intake and Output 08/19/18 08/19/18 08/19/18 06:59 14:59 22:59 Intake Total 798 / 798 600 / 600 54 / 54 Output Total 650 / 650 1250 / 1250 Balance 148 / 148 600 / 600 -1196 / -1196 Intake: IV 100 / 100 600 / 600 54 / 54 DOPamine 400 MG/250 ML Premix 250 / 250 400 mg In 250 ml @ 3 MCG/KG/MIN 17.516 mls/hr IV.CONT TITRATE PRN Rx#:[id number] Heparin/D5W 25,000 U/250 mL 25, 250 / 250 000 unit In 250 ml @ Per Protocol IV.CONT TITRATE PRN Rx #:[id number] Teflaro Inj 600 MG In NS Inj 100 / 100 100 / 100 100 ML @ 100 mls/hr IV.SIG Q8H [facility] Rx#:[id number] Cerebyx Inj 200 MGPE In NS Inj 54 / 54 50 ML @ 216 mls/hr IV.SIG Q12HR [facility] Rx#:[id number] Tube Feeding 498 / 498 Tube Irrigant 200 / 200 Output: Urine Amount (Catheter) 650 / 650 1250 / 1250 Indwelling Urethral Catheter 650 / 650 1250 / 1250 Chest Tube Drainage 0 / 0 Left Mid-Axillary Chest 0 / 0 Right Mid-Axillary Chest 0 / 0 Other: Date of Last Bowel Movement 08/18/18 08/18/18 08/18/18 # Bowel Movements 1 Weight 145.1 kg Assessment and Plan - Assessment (1) Respiratory failure Code(s): J96.90 - Respiratory failure, unspecified, unspecified whether with hypoxia or hypercapnia Status: Acute (2) PNA (pneumonia) Code(s): J18.9 - Pneumonia, unspecified organism Status: Acute (3) Pleural effusion Code(s): J90 - Pleural effusion, not elsewhere classified Status: Acute (4) Osteomyelitis of ankle and foot Code(s): M86.9 - Osteomyelitis, unspecified Status: Acute (5) Diastolic heart failure Code(s): I50.30 - Unspecified diastolic (congestive) heart failure Status: Acute (6) Dyspnea Code(s): R06.00 - Dyspnea, unspecified Status: Acute - Plan 1) Bilateral pleural effusions Bumex drip Chest tubes Diuresing well 2) Diastolic dysfunction by CHIKA 3) Left atrial appendage thrombus Started on heparin drip 4) Questionable AFib Will be on anti-coagulation due to thrombus No further work up 5) Agree with palliative care consultation Appears to be progressing slowly 6) Wide complex tachycardia Possible catecholamine stimulation on Dopamine vs Afib with aberrancy Not a candidate for ischemic evaluation, will continue to follow 7) Tolerating CPAP trial Possible extubation today
[2018-08-20] MEDS: Gabapentin 300 MG Capsule PO SCH ×4 (00:04→17:15)
[2018-08-20] MEDS: Insulin NovoLIN Regular Correctional Sugar Inj SQ SCH ×5 (00:05→17:14)
[2018-08-20] MEDS: Oral Hygiene Kit OROPHARYNG SCH ×4 (00:05→17:14)
[2018-08-20] MEDS: Bumetanide Inj 25 MG/100 ML BAG IV.CONT SCH (03:53)
[2018-08-20] MEDS: Heparin Drip 25,000 UNIT/250 ML BAG IV.CONT PRN (03:54)
[2018-08-20 06:20] LABS: Hemoglobin 8.6 gm/dL (13.0-17.0); Mean Corpuscular HGB Conc 33.2 % (32.0-36.0); Mean Corpuscular Hemoglobin 28.5 pg (27.0-34.0); Mean Corpuscular Volume 85.9 fL (80.0-100.0); Mean Platelet Volume 9.6 fL (7.0-11.0); Platelet Count 116 th/mm3 (150-450); Red Blood Count 3.02 mil/mm3 (4.50-5.90); Red Cell Distribution Width 16.9 % (11.6-17.2); White Blood Count 10.5 th/mm3 (4.0-11.0)
[2018-08-20] MEDS: Morphine Inj 4 MG/ML Vial IV.PUSH PRN ×2 (06:24→14:42)
[2018-08-20 06:39] LABS: Calcium 8.4 mg/dL (8.5-10.1); Carbon Dioxide 34.4 meq/L (21.0-32.0); Magnesium 2.6 mg/dL (1.5-2.5); Potassium 3.6 meq/L (3.5-5.1)
[2018-08-20 06:45] LABS: Phosphorus 6.2 mg/dL (2.5-4.9)
--- NOTE | 2018-08-20 08:53 | P.PNNEU ---
Subjective Subjective Comments: No cp, no dyspnea, no galeas, no focal weakness, no vision loss Active Medications: Active Medications Acetaminophen (Tylenol) 650 mg PO Q6H PRN PRN Reason: Temp > 100.4 Al Hydroxide/Mg Hydroxide (Milk Of Magnbruce Liq) 30 ml PO Q12H PRN PRN Reason: Mild Constipation Albuterol (Albuterol Neb (Prn)) 2.5 mg NEB Q2HR NEB PRN PRN Reason: DYSPNEA Last Admin: 08/18/18 20:23 Dose: 2.5 mg Amlodipine Besylate (Norvasc) 5 mg PO DAILY [facility] Last Admin: 08/19/18 17:24 Dose: Not Given Artificial Tears (Refresh Tears 0.5% Opth Drops) 1 drop EACH EYE BID [facility] Last Admin: 08/19/18 20:31 Dose: 1 drop Aspirin (Aspirin) 325 mg PO DAILY [facility] Last Admin: 08/19/18 08:56 Dose: 325 mg Atorvastatin Calcium (Lipitor) 20 mg PO HS [facility] Last Admin: 08/19/18 20:30 Dose: Not Given Bisacodyl (Dulcolax Supp) 10 mg RECTAL DAILY PRN PRN Reason: SEVERE CONSITIPATION Carvedilol (Coreg) 3.125 mg PO BID [facility] Last Admin: 08/19/18 20:29 Dose: Not Given Chlorhexidine Gluconate (Chlorhexidine 2% Cloth) 1 pack TOPICAL PRN PRN PRN Reason: FOR HYGIENIC CARE Chlorhexidine Gluconate (Peridex 0.12% Oral Kit) 15 ml OROPHARYNG BID@0800, 2000 [facility] Last Admin: 08/19/18 20:28 Dose: 15 ml Dextrose (D50w Vial) 50 ml IV.PUSH UNSCH PRN PRN Reason: PER HYPOGLYCEMIA PROTOCOL Duloxetine HCl (Cymbalta) 30 mg PO DAILY [facility] Last Admin: 08/19/18 08:56 Dose: 30 mg Finasteride (Proscar) 5 mg PO DAILY@1800 [facility] Last Admin: 08/19/18 18:37 Dose: Not Given Fluconazole (Diflucan) 100 mg PO DAILY [facility] Last Admin: 08/19/18 08:56 Dose: 100 mg Gabapentin (Neurontin) 300 mg PO Q6HR [facility] Last Admin: 08/20/18 05:04 Dose: Not Given Glucagon (Glucagon Inj) 1 mg OTHER PRN PRN PRN Reason: for Hypoglycemia Protocol Guaifenesin (Mucinex Er) 600 mg PO BID [facility] Last Admin: 08/19/18 20:30 Dose: Not Given Norepinephrine Bitartrate 16 (mg/ Sodium Chloride) 250 mls @ 1.87 mls/hr IV.CONT TITRATE PRN; Protocol PRN Reason: See Protocol Bumetanide (Bumex Inj) 25 mg in 100 mls @ 2 mls/hr IV.CONT .Q24H [facility] Last Admin: 08/20/18 03:53 Dose: 0.5 mg/hr, 2 mls/hr Heparin Sodium/Dextrose (Heparin/D5w 25,000 U/250 Ml) 25,000 unit in 250 mls @ 0 mls/hr IV.CONT TITRATE PRN; Protocol PRN Reason: Per Protocol Last Admin: 08/20/18 03:54 Dose: 1,800 units/hr, 18 mls/hr Ceftaroline Fosamil 600 mg/ (Sodium Chloride) 100 mls @ 100 mls/hr IV.SIG Q8H [facility] Last Admin: 08/20/18 04:48 Dose: 100 mls/hr Dopamine HCl/Dextrose (Dopamine 400 Mg/250 Ml Premix) 400 mg in 250 mls @ 17.516 mls/hr IV.CONT TITRATE PRN; Protocol PRN Reason: PER PROTOCOL Last Titration: 08/20/18 05:32 Dose: 1 mcg/kg/min, 5.84 mls/hr Fosphenytoin Sodium 200 mgpe/ (Sodium Chloride) 54 mls @ 216 mls/hr IV.SIG Q12HR [facility] Last Infusion: 08/19/18 21:57 Dose: Infused Insulin Detemir (Levemir Inj) 25 unit SQ BID [facility] Last Admin: 08/19/18 20:29 Dose: Not Given Insulin Human Regular (Novolin R Correctional Sugar Inj) 0 units SQ Q4HR [facility]; Protocol Last Admin: 08/20/18 04:57 Dose: Not Given Lactulose (Lactulose Liq) 30 ml PO DAILY PRN PRN Reason: SEVERE CONSITIPATION Lansoprazole (Prevacid Solutab) 30 mg NG/OG DAILY [facility] Last Admin: 08/19/18 08:56 Dose: 30 mg Lorazepam (Ativan Inj) 1 mg IV.PUSH Q2H PRN PRN Reason: anxiety, SOB, tachypnea Miscellaneous Medication () 1 each OROPHARYNG 0000,0400,1200,1600 [facility] Last Admin: 08/20/18 03:53 Dose: 1 each Morphine Sulfate (Morphine Inj) 6 mg IV.PUSH Q2H PRN PRN Reason: pain, SOB, Tachypnea Last Admin: 08/20/18 06:24 Dose: 6 mg Ondansetron HCl (Zofran Inj) 4 mg IV.PUSH Q6H PRN PRN Reason: NAUSEA OR VOMITING Last Admin: 08/16/18 00:57 Dose: 4 mg Polyethylene Glycol (Miralax) 17 gm PO BID [facility] Last Admin: 08/19/18 20:30 Dose: Not Given Potassium Chloride (K-Dur) 20 meq PO BID [facility] Last Admin: 08/19/18 20:29 Dose: Not Given Senna/Docusate Sodium (Isabella-Colace) 1 tab PO BID [facility] Last Admin: 08/19/18 20:30 Dose: Not Given Sennosides (Senokot) 17.2 mg PO Q12H PRN PRN Reason: Moderate Constipation Sodium Chloride (Ns Flush) 2 ml IV.FLUSH BID [facility] Last Admin: 08/19/18 20:30 Dose: 2 ml Sodium Chloride (Ns Flush) 2 ml IV.FLUSH PRN PRN PRN Reason: FLUSH AFTER USING IV ACCESS Tamsulosin HCl (Flomax) 0.4 mg PO BID [facility] Last Admin: 08/19/18 20:29 Dose: Not Given Terbutaline Sulfate (Brethine Inj) 1 mg SQ UNSCH PRN PRN Reason: For Extravasation Allergies/Adverse Reactions: Allergies Allergy/AdvReac Type Severity Reaction Status Date / Time No Known Allergies Allergy Verified 08/06/18 01:24 Review of Systems All other systems reviewed negative except as stated in HPI Physical Exam Vital signs: Vital Signs 08/19/18 09:00 08/19/18 10:00 08/19/18 11:00 Temperature Pulse Rate 58 L 58 L 58 L Respiratory Rate 14 9 L 8 L Blood Pressure 110/52 L 108/55 L 119/56 L Pulse Oximetry 100 99 100 08/19/18 12:00 08/19/18 13:00 08/19/18 14:00 Temperature Pulse Rate 59 L 59 L 58 L Respiratory Rate 13 10 L 11 L Blood Pressure 115/55 L 121/58 L 117/56 L Pulse Oximetry 100 100 100 08/19/18 15:00 08/19/18 16:00 08/19/18 16:01 Temperature Pulse Rate 67 59 L 62 Respiratory Rate 28 H 10 L 11 L Blood Pressure 113/72 118/58 L Pulse Oximetry 97 100 100 08/19/18 17:00 08/19/18 17:01 08/19/18 18:00 Temperature Pulse Rate 65 62 62 Respiratory Rate 10 L 9 L 17 Blood Pressure 110/54 L 122/57 L Pulse Oximetry 98 100 100 08/19/18 19:00 08/19/18 19:54 08/19/18 20:00 Temperature 98.0 F Pulse Rate 64 64 Respiratory Rate 23 11 L Blood Pressure 99/53 L 108/53 L Pulse Oximetry 100 100 08/19/18 21:00 08/19/18 21:01 08/19/18 22:00 Temperature Pulse Rate 67 62 62 Respiratory Rate 8 L 8 L 9 L Blood Pressure 110/51 L Pulse Oximetry 99 99 100 08/19/18 22:01 08/19/18 23:00 08/20/18 00:00 Temperature 97.9 F Pulse Rate 62 66 65 Respiratory Rate 8 L 20 7 L Blood Pressure 109/51 L 108/52 L Pulse Oximetry 100 98 100 08/20/18 00:03 08/20/18 04:00 08/20/18 06:38 Temperature 98.3 F Pulse Rate 64 73 Respiratory Rate 7 L 12 20 Blood Pressure 106/53 L 113/54 L Pulse Oximetry 100 98 Intake & Output 08/19/18 08/20/18 08/20/18 18:59 06:59 18:59 Intake Total 654 / 654 715 / 715 Output Total 1250 / 1250 850 / 850 Balance -596 / -596 -135 / -135 Weight 144.5 kg Intake: IV 654 / 654 715 / 715 Bumex Inj 25 mg In 100 ml @ 0.5 100 / 100 MG/HR 2 mls/hr IV.CONT .Q24H [facility] Rx#:[id number] DOPamine 400 MG/250 ML Premix 250 / 250 211 / 211 400 mg In 250 ml @ 3 MCG/KG/MIN 17.516 mls/hr IV.CONT TITRATE PRN Rx#:[id number] Heparin/D5W 25,000 U/250 mL 25, 250 / 250 250 / 250 000 unit In 250 ml @ Per Protocol IV.CONT TITRATE PRN Rx #:[id number] Teflaro Inj 600 MG In NS Inj 100 / 100 100 / 100 100 ML @ 100 mls/hr IV.SIG Q8H [facility] Rx#:[id number] Cerebyx Inj 200 MGPE In NS Inj 54 / 54 54 / 54 50 ML @ 216 mls/hr IV.SIG Q12HR [facility] Rx#:[id number] Oral 0 / 0 Output: Urine Amount (Catheter) 1250 / 1250 850 / 850 Indwelling Urethral Catheter 1250 / 1250 850 / 850 Chest Tube Drainage 0 / 0 Left Mid-Axillary Chest 0 / 0 Right Mid-Axillary Chest 0 / 0 Other: Date of Last Bowel Movement 08/18/18 08/20/18 # Bowel Movements 1 Narrative: GENERAL: in NAD, SKIN: Warm and dry. HEAD: Atraumatic. Normocephalic. ENT: No nasal bleeding or discharge. Mucous membranes pink and moist. NECK: No trauma CARDIOVASCULAR: Regular rate and rhythm. RESPIRATORY: No accessory muscle use GASTROINTESTINAL: Abdomen soft, non-tender, nondistended. MUSCULOSKELETAL: No gross deformity NEUROLOGICAL: Awake alert oriented 2-3, follows, pleasant humerus, visual atte grossly full no facial asymmetry able to move all 4 extremity gravity gait not assessed secondary fall risk reflexes trace plantarflex her no clonus PSYCHIATRIC: calm - Constitutional no acute distress - Routine HEENT Exam Head: Present: normocephalic Eye: Present: EOMI - Urinary Catheter Management Indwelling Urethral Catheter Cath placed during this visit: yes Reason for continuing: Acute urinary retention Insertion date: 08/11/18 Insertion time: 12:00 Objective Laboratory Results - last 24 hr 08/19/18 08/19/18 08/19/18 12:19 12:54 17:47 WBC RBC Hgb Hct MCV MCH MCHC RDW Plt Count MPV APTT 56.9 H D Sodium Potassium Chloride Carbon Dioxide Anion Gap BUN Creatinine Estimated GFR POC Glucose 322 H 196 H Random Glucose Calcium Phosphorus Magnesium 08/19/18 08/19/18 08/20/18 20:26 23:40 03:51 WBC RBC Hgb Hct MCV MCH MCHC RDW Plt Count MPV APTT Sodium Potassium Chloride Carbon Dioxide Anion Gap BUN Creatinine Estimated GFR POC Glucose 198 H 205 H 158 H Random Glucose Calcium Phosphorus Magnesium 08/20/18 08/20/18 08/20/18 03:52 03:52 03:52 WBC 10.5 RBC 3.02 L Hgb 8.6 L Hct 26.0 L MCV 85.9 MCH 28.5 MCHC 33.2 RDW 16.9 Plt Count 116 L MPV 9.6 APTT 53.7 H Sodium 132 L Potassium 3.6 Chloride 85 L Carbon Dioxide 34.4 H Anion Gap 13 BUN 98 H Creatinine 3.28 H Estimated GFR 18 L POC Glucose Random Glucose 134 H Calcium 8.4 L Phosphorus 6.2 H D Magnesium 2.6 H Review/Management - Diagnosis (1) Chronic right arterial ischemic stroke, MCA (middle cerebral artery) Code(s): I69.30 - Unspecified sequelae of cerebral infarction Status: Acute Current Visit: Yes (2) Osteomyelitis of ankle and foot Code(s): M86.9 - Osteomyelitis, unspecified Status: Acute Current Visit: Yes (3) Diastolic heart failure Code(s): I50.30 - Unspecified diastolic (congestive) heart failure Status: Acute Current Visit: Yes (4) Respiratory failure Code(s): J96.90 - Respiratory failure, unspecified, unspecified whether with hypoxia or hypercapnia Status: Acute Current Visit: Yes (5) Kidney disease Code(s): N28.9 - Disorder of kidney and ureter, unspecified Status: Acute Current Visit: No - Review/Management Plan: Had a CHIKA which showed EF 35-40%, 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 However suspect he has a metabolic encephalopathy at present related to renal disease, respiratory failure, cardiac disease Exclude any seizure activity; at high risk with previous stroke and metabolic abnormalities Recommendation Mental status significantly improved Continue Dilantin Anticoagulation for cardioembolic protection Okay for regular floor from neurology with telemetry Follow exam
[2018-08-20] MEDS: Chlorhexidine 0.12% Oral Kit 15 ML UDC OROPHARYNG SCH (10:04)
[2018-08-20] MEDS: Fosphenytoin Inj 200 MGPE in Sodium Chlor 0.9% Inj 50 ML IV.SIG SCH (10:14)
[2018-08-20] MEDS: Aspirin 325 MG Tablet PO SCH (10:23)
[2018-08-20] MEDS: Fluconazole 100 MG Tablet PO SCH (10:23)
[2018-08-20] MEDS: amLODIPine 5 MG Tablet PO SCH (10:24)
[2018-08-20] MEDS: guaiFENesin 600 MG ER Tablet PO SCH (10:24)
[2018-08-20] MEDS: Polyethylene Glycol 3350 17 GM Packet PO SCH (10:24)
[2018-08-20] MEDS: Senna/Docusate Sodium 8.6/50 MG Tablet PO SCH (10:24)
[2018-08-20] MEDS: Insulin Detemir Inj 1,000 UNIT/10 ML Vial SQ SCH (10:24)
--- NOTE | 2018-08-20 11:30 | P.PNPL ---
Subjective Interval history: 73 YOWM with COPD,SHEELA,Resp insuff Developed RF, intubated CT chest showed Bilat infilt and pl eff On 3LNC Alert , awake , follows commands Minimal chest tube drainage Pt changed his decision for hospice after he discussed with family Physical Exam Vital signs: Vital Signs 08/19/18 12:00 08/19/18 13:00 08/19/18 14:00 Temperature Pulse Rate 59 L 59 L 58 L Respiratory Rate 13 10 L 11 L Blood Pressure 115/55 L 121/58 L 117/56 L Pulse Oximetry 100 100 100 08/19/18 15:00 08/19/18 16:00 08/19/18 16:01 Temperature Pulse Rate 67 59 L 62 Respiratory Rate 28 H 10 L 11 L Blood Pressure 113/72 118/58 L Pulse Oximetry 97 100 100 08/19/18 17:00 08/19/18 17:01 08/19/18 18:00 Temperature Pulse Rate 65 62 62 Respiratory Rate 10 L 9 L 17 Blood Pressure 110/54 L 122/57 L Pulse Oximetry 98 100 100 08/19/18 19:00 08/19/18 19:54 08/19/18 20:00 Temperature 98.0 F Pulse Rate 64 64 Respiratory Rate 23 11 L Blood Pressure 99/53 L 108/53 L Pulse Oximetry 100 100 08/19/18 21:00 08/19/18 21:01 08/19/18 22:00 Temperature Pulse Rate 67 62 62 Respiratory Rate 8 L 8 L 9 L Blood Pressure 110/51 L Pulse Oximetry 99 99 100 08/19/18 22:01 08/19/18 23:00 08/20/18 00:00 Temperature 97.9 F Pulse Rate 62 66 65 Respiratory Rate 8 L 20 7 L Blood Pressure 109/51 L 108/52 L Pulse Oximetry 100 98 100 08/20/18 00:03 08/20/18 01:00 08/20/18 02:00 Temperature Pulse Rate 64 63 67 Respiratory Rate 7 L 6 L 8 L Blood Pressure 106/53 L 108/51 L 101/52 L Pulse Oximetry 100 100 99 08/20/18 03:00 08/20/18 04:00 08/20/18 05:00 Temperature 98.3 F Pulse Rate 71 73 59 L Respiratory Rate 8 L 12 11 L Blood Pressure 106/53 L 113/54 L Pulse Oximetry 100 98 100 08/20/18 05:01 08/20/18 06:00 08/20/18 06:01 Temperature Pulse Rate 63 64 67 Respiratory Rate 19 12 19 Blood Pressure 103/52 L 116/55 L Pulse Oximetry 100 100 100 08/20/18 06:38 08/20/18 07:00 08/20/18 08:00 Temperature Pulse Rate 68 67 Respiratory Rate 20 28 H 11 L Blood Pressure 110/56 L Pulse Oximetry 100 100 08/20/18 08:01 08/20/18 09:00 08/20/18 10:00 Temperature 97.8 F Pulse Rate 67 71 67 Respiratory Rate 13 11 L 11 L Blood Pressure 99/47 L 93/56 L Pulse Oximetry 100 100 100 Intake & Output 08/19/18 08/20/18 08/20/18 18:59 06:59 18:59 Intake Total 654 / 654 715 / 715 Output Total 1250 / 1250 850 / 850 Balance -596 / -596 -135 / -135 Weight 144.5 kg Intake: IV 654 / 654 715 / 715 Bumex Inj 25 mg In 100 ml @ 0.5 100 / 100 MG/HR 2 mls/hr IV.CONT .Q24H [facility] Rx#:[id number] DOPamine 400 MG/250 ML Premix 250 / 250 211 / 211 400 mg In 250 ml @ 3 MCG/KG/MIN 17.516 mls/hr IV.CONT TITRATE PRN Rx#:[id number] Heparin/D5W 25,000 U/250 mL 25, 250 / 250 250 / 250 000 unit In 250 ml @ Per Protocol IV.CONT TITRATE PRN Rx #:[id number] Teflaro Inj 600 MG In NS Inj 100 / 100 100 / 100 100 ML @ 100 mls/hr IV.SIG Q8H [facility] Rx#:[id number] Cerebyx Inj 200 MGPE In NS Inj 54 / 54 54 / 54 50 ML @ 216 mls/hr IV.SIG Q12HR [facility] Rx#:[id number] Oral 0 / 0 Output: Urine Amount (Catheter) 1250 / 1250 850 / 850 Indwelling Urethral Catheter 1250 / 1250 850 / 850 Chest Tube Drainage 0 / 0 Left Mid-Axillary Chest 0 / 0 Right Mid-Axillary Chest 0 / 0 Other: Date of Last Bowel Movement 08/18/18 08/20/18 08/20/18 # Bowel Movements 1 GENERAL: Obese Wm, weak, NAD SKIN: Warm and dry. HEAD: Normocephalic. EYES: No scleral icterus. No injection or drainage. NECK: Supple, trachea midline. No JVD or lymphadenopathy. CARDIOVASCULAR: Regular rate and rhythm without murmurs, gallops, or rubs. RESPIRATORY: Breath sounds equal bilaterally. No accessory muscle use. GASTROINTESTINAL: Abdomen soft, non-tender, nondistended. MUSCULOSKELETAL: No cyanosis, or edema. BACK: Nontender without obvious deformity. No CVA tenderness. - Urinary Catheter Management Indwelling Urethral Catheter Cath placed during this visit: yes Reason for continuing: Acute urinary retention Insertion date: 08/11/18 Insertion time: 12:00 Assessment and Plan - Plan IMPRESSION: 1. Respiratory failure.s/p extubation 2. Hypoxia. 3. Morbid obesity. 4. Likely sleep apnea. 5. Osteomyelitis. 6. Pneumonia. 7. Pulmonary edema. 8. Renal insufficiency. 9. Pleural effusion, s/p rt chest tube PLAN: Diurease Monitor Lytes chest tube to sucrion, to be removed today Abx per ID Ceftaroline q 8 hrs Palliative care following DC plans underway
[2018-08-20 13:37] VITALS: O2SAT 99
--- NOTE | 2018-08-20 14:38 | P.PNPAL ---
Reason for Visit Reason for visit: a. To assist with evaluation and management of symptoms including: Pain, dyspnea, debility. b. To assist medical decision maker(s) with: better understanding of current medical conditions; weighing benefits/burdens of medical treatment options; making medical treatment decisions. Subjective Subjective/Interval History: Patient seen and examined in ICU. No family or friends at bedside. Discussed with Dr. Wu, Dr. Montez, nurse (Elaine) and hospice admission nurse (Eulogio) . Nurse reports patient has been up all night speaking with his sister, Frances and may now undecided about comfort measures. Dr. Puente will remove chest tubes today as they have not been draining. He remembers me from prior visits. He is awake, oriented, following commands. He remembers our conversation yesterday about options of continued aggressive care vs. transition to comfort measures. He tells me he is afraid. He wants to go back to [facility]. He does not want to , but knows we all will. He does not want to alone. He does not want to in the hospital. He wants to peacefully and comfortably. He does not want cardiac resuscitation or to be reintubated. He does not want to be prolonged artificially by tubes and machines. He tells me "I don't know what to do, I have never done this before." I explained that reviewed the things he wants and does not want, hospice would be the care that would provide comfort to allow him to peacefully and naturally. Patient remains stable off vent. Oxygen sat 99%. Some shortness of breath with prolonged conversation. He denies pain. BP 96/53. He denies pain during my visit. He had one dose of PRN Morphine overnight. No PRN Ativan given. He is appreciative for the time spent. SistersLindsey and Frances spoke with patient after I provided medical update and support his decision to return to [facility] with hospice support. Sister Frances will be coming to [place] 08/11/18. Family/Friend Interactions: Spoke with sister Frances via phone for 37 minutes, conversation witnessed by nurse (Elaine). Medical update provided. I reviewed my conversation with patient (as above) and his wishes for comfort measures with hospice support. I reviewed heart failure, pulmonary hypertension, pulmonary edema, pneumonia, Advance Directives Health Care Surrogate: Copy in medical record Advance Directives Date on File: 06/15/18 Health Care Surrogate Name and Number: Lindsey Chand, sister: [phone] Objective Vital Signs: Vital Signs 08/19/18 15:00 08/19/18 16:00 08/19/18 16:01 Temperature Pulse Rate 67 59 L 62 Respiratory Rate 28 H 10 L 11 L Blood Pressure 113/72 118/58 L Pulse Oximetry 97 100 100 08/19/18 17:00 08/19/18 17:01 08/19/18 18:00 Temperature Pulse Rate 65 62 62 Respiratory Rate 10 L 9 L 17 Blood Pressure 110/54 L 122/57 L Pulse Oximetry 98 100 100 08/19/18 19:00 08/19/18 19:54 08/19/18 20:00 Temperature 98.0 F Pulse Rate 64 64 Respiratory Rate 23 11 L Blood Pressure 99/53 L 108/53 L Pulse Oximetry 100 100 08/19/18 21:00 08/19/18 21:01 08/19/18 22:00 Temperature Pulse Rate 67 62 62 Respiratory Rate 8 L 8 L 9 L Blood Pressure 110/51 L Pulse Oximetry 99 99 100 08/19/18 22:01 08/19/18 23:00 08/20/18 00:00 Temperature 97.9 F Pulse Rate 62 66 65 Respiratory Rate 8 L 20 7 L Blood Pressure 109/51 L 108/52 L Pulse Oximetry 100 98 100 08/20/18 00:03 08/20/18 01:00 08/20/18 02:00 Temperature Pulse Rate 64 63 67 Respiratory Rate 7 L 6 L 8 L Blood Pressure 106/53 L 108/51 L 101/52 L Pulse Oximetry 100 100 99 08/20/18 03:00 08/20/18 04:00 08/20/18 05:00 Temperature 98.3 F Pulse Rate 71 73 59 L Respiratory Rate 8 L 12 11 L Blood Pressure 106/53 L 113/54 L Pulse Oximetry 100 98 100 08/20/18 05:01 08/20/18 06:00 08/20/18 06:01 Temperature Pulse Rate 63 64 67 Respiratory Rate 19 12 19 Blood Pressure 103/52 L 116/55 L Pulse Oximetry 100 100 100 08/20/18 06:38 08/20/18 07:00 08/20/18 08:00 Temperature Pulse Rate 68 67 Respiratory Rate 20 28 H 11 L Blood Pressure 110/56 L Pulse Oximetry 100 100 08/20/18 08:01 08/20/18 09:00 08/20/18 10:00 Temperature 97.8 F Pulse Rate 67 71 67 Respiratory Rate 13 11 L 11 L Blood Pressure 99/47 L 93/56 L Pulse Oximetry 100 100 100 08/20/18 10:01 08/20/18 11:00 08/20/18 11:01 Temperature Pulse Rate 65 56 L 55 L Respiratory Rate 10 L 10 L 11 L Blood Pressure 105/53 L 84/47 L Pulse Oximetry 100 100 100 08/20/18 11:05 08/20/18 11:10 08/20/18 11:15 Temperature Pulse Rate 58 L 57 L 58 L Respiratory Rate 10 L 10 L 10 L Blood Pressure 86/50 L 90/48 L 90/53 L Pulse Oximetry 100 100 100 08/20/18 11:20 08/20/18 11:25 08/20/18 11:30 Temperature Pulse Rate 60 58 L 55 L Respiratory Rate 10 L 10 L 10 L Blood Pressure 87/50 L 94/54 L 87/50 L Pulse Oximetry 100 100 100 08/20/18 11:35 08/20/18 12:00 08/20/18 12:01 Temperature Pulse Rate 59 L 55 L 55 L Respiratory Rate 10 L 10 L 10 L Blood Pressure 95/51 L 96/53 L Pulse Oximetry 99 100 100 08/20/18 13:00 Temperature Pulse Rate 64 Respiratory Rate 15 Blood Pressure 113/55 L Pulse Oximetry 99 Intake & Output 08/19/18 08/20/18 08/20/18 18:59 06:59 18:59 Intake Total 654 / 654 715 / 715 Output Total 1250 / 1250 850 / 850 Balance -596 / -596 -135 / -135 Weight 144.5 kg Intake: IV 654 / 654 715 / 715 Bumex Inj 25 mg In 100 ml @ 0.5 100 / 100 MG/HR 2 mls/hr IV.CONT .Q24H [facility] Rx#:[id number] DOPamine 400 MG/250 ML Premix 250 / 250 211 / 211 400 mg In 250 ml @ 3 MCG/KG/MIN 17.516 mls/hr IV.CONT TITRATE PRN Rx#:[id number] Heparin/D5W 25,000 U/250 mL 25, 250 / 250 250 / 250 000 unit In 250 ml @ Per Protocol IV.CONT TITRATE PRN Rx #:[id number] Teflaro Inj 600 MG In NS Inj 100 / 100 100 / 100 100 ML @ 100 mls/hr IV.SIG Q8H [facility] Rx#:[id number] Cerebyx Inj 200 MGPE In NS Inj 54 / 54 54 / 54 50 ML @ 216 mls/hr IV.SIG Q12HR [facility] Rx#:[id number] Oral 0 / 0 Output: Urine Amount (Catheter) 1250 / 1250 850 / 850 Indwelling Urethral Catheter 1250 / 1250 850 / 850 Chest Tube Drainage 0 / 0 Left Mid-Axillary Chest 0 / 0 Right Mid-Axillary Chest 0 / 0 Other: Date of Last Bowel Movement 08/18/18 08/20/18 08/20/18 # Bowel Movements 1 Physical Exam: CONSTITUTIONAL/GENERAL: This is a morbidly obese gentleman, critically ill patient, on mech vent. TUBES/LINES/DRAINS: ETT, OG, PIV right, PIV left upper, bilateral chest tubes, podus boot on right. SKIN: Ecchymoses on upper extremities. Dressing noted on right foot. Scabs noted on right hand. Skin temperature cool. ENT: Grossly normal hearing, opens eyes to voice. Throat difficult to visualize due to tubes. CARDIOVASCULAR: S1, S2, irregular, distant heart tones. RESPIRATORY/CHEST: On mech vent, diminished breath sounds bilaterally. GASTROINTESTINAL: Abdomen protuberant, soft. No guarding. Bowel sounds present. GENITOURINARY: Without palpable bladder distension. Greer to bedside drainage. MUSCULOSKELETAL: Right foot with dressing in place. Podus boot on right in place. NEUROLOGICAL: Off sedation, opens eyes, tracking, following commands, nods yes/ no to questions. Mouthing words appropriately. PSYCHIATRIC: Awakens easily, calm. Diagnostic Tests Laboratory: Laboratory Results - last 72 hr 08/17/18 08/18/18 08/18/18 17:45 00:24 04:09 WBC RBC Hgb Hct MCV MCH MCHC RDW Plt Count MPV APTT 46.0 H Sodium Potassium Chloride Carbon Dioxide Anion Gap BUN Creatinine Estimated GFR POC Glucose 281 H 277 H Random Glucose Calcium Phosphorus Magnesium 08/18/18 08/18/18 08/18/18 04:09 04:09 05:52 WBC 11.2 H RBC 3.21 L Hgb 8.9 L Hct 27.0 L MCV 84.0 MCH 27.8 MCHC 33.1 RDW 16.8 Plt Count 123 L MPV 9.2 APTT Sodium 134 L Potassium 2.9 L* Chloride 88 L Carbon Dioxide 33.0 H Anion Gap 13 BUN 85 H Creatinine 2.85 H Estimated GFR 22 L POC Glucose 233 H Random Glucose 207 H D Calcium 8.8 Phosphorus 4.2 Magnesium 2.3 08/18/18 08/18/18 08/18/18 11:41 17:00 21:40 WBC RBC Hgb Hct MCV MCH MCHC RDW Plt Count MPV APTT Sodium Potassium 3.7 D Chloride Carbon Dioxide Anion Gap BUN Creatinine Estimated GFR POC Glucose 273 H 224 H Random Glucose Calcium Phosphorus Magnesium 08/18/18 08/19/18 08/19/18 23:53 05:18 05:18 WBC 10.6 RBC 3.06 L Hgb 8.6 L Hct 26.7 L MCV 87.1 MCH 28.2 MCHC 32.3 RDW 17.0 Plt Count 100 L MPV 9.3 APTT Sodium 133 L Potassium 3.9 Chloride 86 L Carbon Dioxide 34.4 H Anion Gap 13 BUN 95 H Creatinine 3.36 H Estimated GFR 18 L POC Glucose 237 H Random Glucose 221 H Calcium 8.5 Phosphorus 7.7 H D Magnesium 2.7 H 08/19/18 08/19/18 08/19/18 05:37 12:19 12:54 WBC RBC Hgb Hct MCV MCH MCHC RDW Plt Count MPV APTT 56.9 H D Sodium Potassium Chloride Carbon Dioxide Anion Gap BUN Creatinine Estimated GFR POC Glucose 235 H 322 H Random Glucose Calcium Phosphorus Magnesium 08/19/18 08/19/18 08/19/18 17:47 20:26 23:40 WBC RBC Hgb Hct MCV MCH MCHC RDW Plt Count MPV APTT Sodium Potassium Chloride Carbon Dioxide Anion Gap BUN Creatinine Estimated GFR POC Glucose 196 H 198 H 205 H Random Glucose Calcium Phosphorus Magnesium 08/20/18 08/20/18 08/20/18 03:51 03:52 03:52 WBC 10.5 RBC 3.02 L Hgb 8.6 L Hct 26.0 L MCV 85.9 MCH 28.5 MCHC 33.2 RDW 16.9 Plt Count 116 L MPV 9.6 APTT Sodium 132 L Potassium 3.6 Chloride 85 L Carbon Dioxide 34.4 H Anion Gap 13 BUN 98 H Creatinine 3.28 H Estimated GFR 18 L POC Glucose 158 H Random Glucose 134 H Calcium 8.4 L Phosphorus 6.2 H D Magnesium 2.6 H 08/20/18 08/20/18 03:52 10:12 WBC RBC Hgb Hct MCV MCH MCHC RDW Plt Count MPV APTT 53.7 H Sodium Potassium Chloride Carbon Dioxide Anion Gap BUN Creatinine Estimated GFR POC Glucose 159 H Random Glucose Calcium Phosphorus Magnesium Result Diagrams: 08/20/18 03:52 08/20/18 03:52 Microbiology: Microbiology 08/11/18 17:02 Acid Fast Bacilli Smear - Final Abscess - Lung No acid fast bacilli seen Mycobacterial Culture - Preliminary No growth in 1 week 08/11/18 17:02 Fungal Smear - Final Abscess - Lung No fungal elements seen Fungal Culture - Preliminary No growth in 1 week 08/15/18 17:15 Urine Culture - Final Catheterized Urine Rebeka glabrata Procedures: * Bilateral chest tubes * 08/11/18 - Intubated. Assessment and Plan - Disease Oriented Problem List (1) Diastolic heart failure (2) PNA (pneumonia) (3) Pleural effusion (4) Osteomyelitis of ankle and foot (5) Kidney disease (6) Morbid obesity (7) Diabetes (8) Hypertension (9) JOSE (acute kidney injury) (10) SHEELA (obstructive sleep apnea) (11) COPD (chronic obstructive pulmonary disease) (12) Thrombus of left atrial appendage Pertinent Non-Medical Issues: Psychosocial: . Supported by his 2 sisters, Lindsey and Frances who live in [place]. Spiritual: Paper Rewinder Operator visits requested. Legal: Patient is not capacitated to make his own health care decisions, uncertain if he will regain capacity. Called [facility] to see if they have any written advance directives, copy of written designation of health care surrogate received dated 06/15/18 naming his sister, Lindsey Chand as health care surrogate # [phone]. Ethical issues impacting care: No known concerns at this time. Important Contacts: * Lindsey Jagruti, sister/ [facility]: [phone] * Ria Alegria, sister: [phone] Prognosis: Patient is hospice appropriate. Code Status: No Code DNR Plan: * Patient is not capacitated to make his own health care decisions, uncertain if he will regain capacity. Called [facility] to see if they have any written advance directives, copy of written designation of health care surrogate received dated 06/15/18 naming his sister, Lindsey Chand as health care surrogate # [phone]. * NO CODE. Patient does not want to be reintubated and does not want cardiac resuscitation. Patient signed [place] DNR. * Patient does not to be reintubated, he wants to peacefully and naturally when God says its his time. He elects hospice and hopes to return to [facility]. * Hospice consulted. DC pending arrangements, likely 08/20/18. * Spoke with sister, Lindsey to provide medical update. She supports his decision for transition to comfort measures. * Discussed with Dr. Wu and nurses. * Family does NOT want any information shared with friends of patient, including but not limited to Elsie. * SYMPTOMS: Pain: due to chronic debility, osteomyelitis, wounds, pneumonia, tubes, restraints, etc. No obvious signs of pain today, on fentanyl. Will continue to monitor. Dyspnea: post 2 chest tubes. On mech vent, not breathing over. No new medication recommendations at this time. * Palliative care will continue to follow to assist with symptom management and clarification of goals of medical treatment as needed.
--- NOTE | 2018-08-20 15:35 | P.DS ---
Date of admission: 08/06/18 03:32 Primary care physician: UNKNOWN Attending physician on discharge: Sanjeev Wu Anticipated date of discharge: 08/20/18 Brief History from admission: This is a 73-year-old male with PMH of HTN, Hyperlipidemia, DM, Peripheral Neuropathy and Morbid Obesity who was brought to the ER by EMS from [facility] for SOB and hypoxia. Per report, pt had episode of SOB w/ O2 sat 70% on RA, however pt refused transport to the ER. Meagan, pt w/ recurrent episode of SOB and hypoxia. Has been on Zyvox for LE Wound Infection +MRSA, recently started on Levaquin for PNA. Pt poor historian, unable to obtain much history. Main complaint is back pain at this time. On arrival, BP 145/63, HR 81, O2 sat 97% on 10 L Simple Mask. CBC unremarkable. ABG essentially unremarkable. Creatinine 1.93, previously 1.83 on 06/10/2018. BNP 300. CXR with bilateral lung consolidation, possible pulmonary edema with small bilateral pleural effusions. S/p Lasix in ER. Patient update on day of discharge: remains extubated. patient elects inpatient hospice. will transfer there for continued comfort measures. DS: Diagnosis - Discharge Diagnosis (1) PNA (pneumonia) Status: Acute Diagnosis: Principal (2) Pleural effusion Status: Acute Diagnosis: Principal (3) Osteomyelitis of ankle and foot Status: Acute Diagnosis: Principal (4) Diastolic heart failure Status: Acute Diagnosis: Principal (5) Pain Status: Acute Diagnosis: Principal (6) Dyspnea Status: Acute Diagnosis: Principal (7) Debility Status: Acute Diagnosis: Secondary (8) Respiratory failure Status: Acute Diagnosis: Principal (9) Chronic right arterial ischemic stroke, MCA (middle cerebral artery) Status: Acute Diagnosis: Secondary (10) Acute kidney injury Status: Acute Diagnosis: Principal (11) Thrombus of left atrial appendage Status: Acute Diagnosis: Principal (12) NSTEMI (non-ST elevated myocardial infarction) Status: Acute Diagnosis: Principal (13) Kidney disease Status: Acute Diagnosis: Principal (14) Morbid obesity Status: Acute Diagnosis: Secondary (15) Diabetes Status: Acute Diagnosis: Secondary (16) Hypertension Status: Acute Diagnosis: Secondary (17) Altered mental state Status: Acute Diagnosis: Principal (18) HHNC (hyperglycemic hyperosmolar nonketotic coma) Status: Acute Diagnosis: Principal (19) JOSE (acute kidney injury) Status: Acute Diagnosis: Principal (20) SHEELA (obstructive sleep apnea) Status: Acute Diagnosis: Principal (21) COPD (chronic obstructive pulmonary disease) Status: Acute Diagnosis: Principal DS: Summary Hospital Course: 73-year-old male with past medical history significant for morbid obesity, peripheral neuropathy, diabetes mellitus, hyperlipidemia and hypertension. Patient is a long-term resident of [facility] in reportedly is not very active and is mostly bedbound. Patient was brought into the emergency room by EMS from [facility] for shortness of breath and hypoxia. Per report patient had an episode of shortness of breath with O2 sats of 70% on room air however patient refused transport to the ER. Thereafter patient had another episode of shortness of breath and hypoxia. By this time patient had been treated with Zyvox for lower extremity wound for positive MRSA as well as recently started on Levaquin for pneumonia at the assisted [facility]. Patient has a PICC line in place and has been treated with IV antibiotics. On arrival his blood pressure was 145/63, heart rate of 81, O2 sats 97% on 10 L simple mask. His blood gas was unremarkable. His creatinine was 1.93 and previously in May 2018 was 1.83. His chest x-ray showed bilateral lung consolidation possible element of pulmonary edema as well as small bilateral pleural effusion. On 08/09 patient became more hypoxemic again requiring the placement on the BiPAP ventilator and transferred to ICU. Critical care services were consulted for management of respiratory failure. 08/10: Afebrile. Currently on 4 L nasal cannula saturations are 90%. Patient normally wears CPAP/BiPAP at home according to patient. Since seen by Dr. Slim Estevez previous hospitalization. 08/11: Reconsulted this patient remains on BiPAP. Still appears to be normal sinus rhythm. Echocardiogram revealed dilated LV/LVH, left atrial enlargement. Possible calcified lesion left coronary cusp. Currently on furosemide 40 mg IV twice daily. Likely source of ARDS will likely need intubation. 08/12: intubated yesterday. right chest tube placed with > 1L output. CXR improved on the right, but with persistence of left plural effusion. Also, transthoracic echocardiography has failed to have adequate visualization of cardiac windows to rule in or rule out cardiogenic source of hypoxia. 08/13: good diuresis again. left chest tube placed yesterday with 1100cc output yesterday. right chest tube with only 60mL output. CHIKA done yesterday with Grade III diastolic dysfunction as well as probable left atrial appendage thrombus: on anticoagulation. 08/14: Orally intubated on mechanical ventilation. 08/15: Remains sedated, orally intubated on mechanical ventilation. Worsening BUN/creatinine noted. 08/16: Off sedation, more awake today, following commands including blinking. Remains orally intubated on mechanical ventilation. Had nonsustained V. tach yesterday after being started on dopamine for bradycardia. Remains on anticoagulation with heparin. Head CT done yesterday was negative for any bleed. MRI brain done today with no acute infarct. 08/17: Off sedation, awake and alert. Remains orally intubated on mechanical ventilation. Apneic episodes on initiating CPAP trials this morning. 08/18: Drowsy, arousable, orally intubated on mechanical ventilation. Remains on Bumex drip. Daily CPAP trials. If patient has apneic episodes will use SIMV with pressure support. 08/19: awake and alert. remains on bumex drip and mechanical ventilation. chest tubes with minimal output. - Time Spent with Patient Total time spent providing and/or coordinating discharge services: Greater than 30 minutes - Quality: VTE Deep Vein Thrombosis/Pulmonary Embolism Present on Admission: No Exam Vital signs: Vital Signs 08/19/18 16:00 08/19/18 16:01 08/19/18 17:00 Temperature Pulse Rate 59 L 62 65 Respiratory Rate 10 L 11 L 10 L Blood Pressure 118/58 L Pulse Oximetry 100 100 98 08/19/18 17:01 08/19/18 18:00 08/19/18 19:00 Temperature Pulse Rate 62 62 64 Respiratory Rate 9 L 17 23 Blood Pressure 110/54 L 122/57 L 99/53 L Pulse Oximetry 100 100 08/19/18 19:54 08/19/18 20:00 08/19/18 21:00 Temperature 36.7 C Pulse Rate 64 67 Respiratory Rate 11 L 8 L Blood Pressure 108/53 L Pulse Oximetry 100 100 99 08/19/18 21:01 08/19/18 22:00 08/19/18 22:01 Temperature Pulse Rate 62 62 62 Respiratory Rate 8 L 9 L 8 L Blood Pressure 110/51 L 109/51 L Pulse Oximetry 99 100 100 08/19/18 23:00 08/20/18 00:00 08/20/18 00:03 Temperature 36.6 C Pulse Rate 66 65 64 Respiratory Rate 20 7 L 7 L Blood Pressure 108/52 L 106/53 L Pulse Oximetry 98 100 100 08/20/18 01:00 08/20/18 02:00 08/20/18 03:00 Temperature Pulse Rate 63 67 71 Respiratory Rate 6 L 8 L 8 L Blood Pressure 108/51 L 101/52 L 106/53 L Pulse Oximetry 100 99 100 08/20/18 04:00 08/20/18 05:00 08/20/18 05:01 Temperature 36.8 C Pulse Rate 73 59 L 63 Respiratory Rate 12 11 L 19 Blood Pressure 113/54 L 103/52 L Pulse Oximetry 98 100 100 08/20/18 06:00 08/20/18 06:01 08/20/18 06:38 Temperature Pulse Rate 64 67 Respiratory Rate 12 19 20 Blood Pressure 116/55 L Pulse Oximetry 100 100 08/20/18 07:00 08/20/18 08:00 08/20/18 08:01 Temperature 36.6 C Pulse Rate 68 67 67 Respiratory Rate 28 H 11 L 13 Blood Pressure 110/56 L 99/47 L Pulse Oximetry 100 100 100 08/20/18 09:00 08/20/18 10:00 08/20/18 10:01 Temperature Pulse Rate 71 67 65 Respiratory Rate 11 L 11 L 10 L Blood Pressure 93/56 L 105/53 L Pulse Oximetry 100 100 100 08/20/18 11:00 08/20/18 11:01 08/20/18 11:05 Temperature Pulse Rate 56 L 55 L 58 L Respiratory Rate 10 L 11 L 10 L Blood Pressure 84/47 L 86/50 L Pulse Oximetry 100 100 100 08/20/18 11:10 08/20/18 11:15 08/20/18 11:20 Temperature Pulse Rate 57 L 58 L 60 Respiratory Rate 10 L 10 L 10 L Blood Pressure 90/48 L 90/53 L 87/50 L Pulse Oximetry 100 100 100 08/20/18 11:25 08/20/18 11:30 08/20/18 11:35 Temperature Pulse Rate 58 L 55 L 59 L Respiratory Rate 10 L 10 L 10 L Blood Pressure 94/54 L 87/50 L 95/51 L Pulse Oximetry 100 100 99 08/20/18 12:00 08/20/18 12:01 08/20/18 13:00 Temperature Pulse Rate 55 L 55 L 64 Respiratory Rate 10 L 10 L 15 Blood Pressure 96/53 L 113/55 L Pulse Oximetry 100 100 99 Intake & Output 08/19/18 08/20/18 08/20/18 18:59 06:59 18:59 Intake Total 654 / 654 715 / 715 Output Total 1250 / 1250 850 / 850 Balance -596 / -596 -135 / -135 Weight 144.5 kg Intake: IV 654 / 654 715 / 715 Bumex Inj 25 mg In 100 ml @ 0.5 100 / 100 MG/HR 2 mls/hr IV.CONT .Q24H SHAHEED Rx#:[id number] DOPamine 400 MG/250 ML Premix 250 / 250 211 / 211 400 mg In 250 ml @ 3 MCG/KG/MIN 17.516 mls/hr IV.CONT TITRATE PRN Rx#:[id number] Heparin/D5W 25,000 U/250 mL 25, 250 / 250 250 / 250 000 unit In 250 ml @ Per Protocol IV.CONT TITRATE PRN Rx #:[id number] Teflaro Inj 600 MG In NS Inj 100 / 100 100 / 100 100 ML @ 100 mls/hr IV.SIG Q8H SHAHEED Rx#:[id number] Cerebyx Inj 200 MGPE In NS Inj 54 / 54 54 / 54 50 ML @ 216 mls/hr IV.SIG Q12HR SHAHEED Rx#:[id number] Oral 0 / 0 Output: Urine Amount (Catheter) 1250 / 1250 850 / 850 Indwelling Urethral Catheter 1250 / 1250 850 / 850 Chest Tube Drainage 0 / 0 Left Mid-Axillary Chest 0 / 0 Right Mid-Axillary Chest 0 / 0 Other: Date of Last Bowel Movement 08/18/18 08/20/18 08/20/18 # Bowel Movements 1 Narrative: GENERAL: 73-year-old male, lying in bed, nc o2. SKIN: Cool and dry HEAD: Atraumatic. Normocephalic. EYES: Pupils equal and round. No scleral icterus. No injection or drainage. ENT: No nasal bleeding or discharge. Mucous membranes pink and moist. NECK: Trachea midline. No JVD. CARDIOVASCULAR: Regular rate and rhythm. RESPIRATORY: on nc o2. somewhat tachypneic. slightly labored. equal chest rise. GASTROINTESTINAL: Abdomen obese and protuberant. no guarding. MUSCULOSKELETAL: Extremities with right lower extremity with destruction of the second/third/fourth digits foot to bone. Currently covered with Juan bandage NEUROLOGICAL: RASS -1. awakens and follows commands. Results Procedures completed during hospitalization: bilateral chest tubes Labs on day of discharge: Labs from last 24 hours 08/20/18 08/20/18 08/20/18 10:12 03:52 03:52 WBC RBC Hgb Hct MCV MCH MCHC RDW Plt Count MPV APTT 53.7 H Sodium 132 L Potassium 3.6 Chloride 85 L Carbon Dioxide 34.4 H Anion Gap 13 BUN 98 H Creatinine 3.28 H Estimated GFR 18 L POC Glucose 159 H Random Glucose 134 H Calcium 8.4 L Phosphorus 6.2 H D Magnesium 2.6 H 08/20/18 08/20/18 08/19/18 03:52 03:51 23:40 WBC 10.5 RBC 3.02 L Hgb 8.6 L Hct 26.0 L MCV 85.9 MCH 28.5 MCHC 33.2 RDW 16.9 Plt Count 116 L MPV 9.6 APTT Sodium Potassium Chloride Carbon Dioxide Anion Gap BUN Creatinine Estimated GFR POC Glucose 158 H 205 H Random Glucose Calcium Phosphorus Magnesium 08/19/18 08/19/18 20:26 17:47 WBC RBC Hgb Hct MCV MCH MCHC RDW Plt Count MPV APTT Sodium Potassium Chloride Carbon Dioxide Anion Gap BUN Creatinine Estimated GFR POC Glucose 198 H 196 H Random Glucose Calcium Phosphorus Magnesium Preliminary micro results at discharge 08/11/18 17:02 Mycobacterial Culture - Preliminary Abscess - Lung No growth in 1 week 08/11/18 17:02 Fungal Culture - Preliminary Abscess - Lung No growth in 1 week - Impressions ITS Impressions Foot X-Ray 08/06/18 00:00 CONCLUSION: Destructive changes at the fifth metatarsal head and possibly the fourth metatarsal head. Extremity Arterial Study 08/08/18 00:00 CONCLUSION: 1. Moderate reduction of the toe brachial indices bilaterally suggesting microangiopathic disease. 2. ABIs within the normal range bilaterally. Foot MRI 08/08/18 00:00 CONCLUSION: 1. Findings consistent with marrow edema and osteomyelitis involving the fourth and fifth metatarsals. The base of the fifth is spared. Proximal one third of the fourth is spared. Chest CT 08/11/18 13:44 CONCLUSION: 1. Diffuse bilateral pulmonary infiltrates and effusions. 2. Atherosclerosis. Venous Doppler Study 08/12/18 00:00 CONCLUSION: 1. The study is negative for lower extremity deep venous thrombosis. Head CT 08/15/18 09:27 CONCLUSION: 1. No acute hemorrhage or mass effect identified. 2. Focal encephalomalacia in the left frontal lobe. 3. Opacification of the mastoid air cells bilaterally which is new from the prior study consistent with acute mastoiditis. 4. Moderate atrophic change. . Head MRI 08/16/18 00:00 CONCLUSION: 1. Remote left frontal mid convexity infarct. 2. Senescent changes with mild periventricular ischemic white matter demyelination. No acute abnormality. Specifically, no acute infarction or hemorrhage. Chest X-Ray 08/16/18 05:00 CONCLUSION: Diffuse pulmonary consolidation likely related to edema. These processes are worse at the bases and on the right. Discharge Plan - Discharge Disposition Patient Disposition: [facility] Hospice[facility] Facility - Discharge Condition Condition: Critical - Discharge Order Discharge Orders: Discharge Order (Routine); Ordered 08/20/18 Ordered By: Sanjeev Wu - Discharge Details Anticipated Discharge Date: 08/20/18 - Physicians Team Primary Care Provider: UNKNOWN, Attending Provider: Dima Mae Other Providers: Edwige Gibbons ; Hui Bazan MD ; Bety Vital DPM ; [facility] ; Lewis Lewis MD ; Radha Terrell MD ; [facility] ; Abbe Montez DO ; Kortney Marcial MD ; Dima Mae MD ; [facility] ; Micohacano Weiss MD ; Jono Khan MD
[2018-08-20] MEDS: Sodium Chloride 0.9% 2 ML Flush BID IV.FLUSH SCH (17:13)
[2018-08-20] MEDS: Carboxymethylcellulose 0.5% Opth Drops 15 ML Bottle EACH EYE SCH (17:13)
[2018-08-20] MEDS: Finasteride 5 MG Tablet PO SCH (17:15)
[2018-08-20 17:31] VITALS: BP 97/55; PULSE 63; RESP 10; TEMP 98
--- NOTE | 2018-08-20 19:12 | P.PNCA ---
Subjective Interval history: Extubated Discussed with palliative care, planning on hospice care Medications and Allergies Active Medications: Active Medications Acetaminophen (Tylenol) 650 mg PO Q6H PRN PRN Reason: Temp > 100.4 Al Hydroxide/Mg Hydroxide (Milk Of [place] Liq) 30 ml PO Q12H PRN PRN Reason: Mild Constipation Albuterol (Albuterol Neb (Prn)) 2.5 mg NEB Q2HR NEB PRN PRN Reason: DYSPNEA Last Admin: 08/18/18 20:23 Dose: 2.5 mg Amlodipine Besylate (Norvasc) 5 mg PO DAILY PENDING SALE TO [facility] Last Admin: 08/20/18 10:24 Dose: Not Given Artificial Tears (Refresh Tears 0.5% Opth Drops) 1 drop EACH EYE BID PENDING SALE TO [facility] Last Admin: 08/20/18 17:13 Dose: Not Given Aspirin (Aspirin) 325 mg PO DAILY PENDING SALE TO [facility] Last Admin: 08/20/18 10:23 Dose: Not Given Atorvastatin Calcium (Lipitor) 20 mg PO HS PENDING SALE TO [facility] Last Admin: 08/19/18 20:30 Dose: Not Given Bisacodyl (Dulcolax Supp) 10 mg RECTAL DAILY PRN PRN Reason: SEVERE CONSITIPATION Carvedilol (Coreg) 3.125 mg PO BID PENDING SALE TO [facility] Last Admin: 08/20/18 13:38 Dose: Not Given Chlorhexidine Gluconate (Chlorhexidine 2% Cloth) 1 pack TOPICAL PRN PRN PRN Reason: FOR HYGIENIC CARE Chlorhexidine Gluconate (Peridex 0.12% Oral Kit) 15 ml OROPHARYNG BID@0800, 2000 PENDING SALE TO [facility] Last Admin: 08/20/18 10:04 Dose: Not Given Dextrose (D50w Vial) 50 ml IV.PUSH UNSCH PRN PRN Reason: PER HYPOGLYCEMIA PROTOCOL Duloxetine HCl (Cymbalta) 30 mg PO DAILY PENDING SALE TO [facility] Last Admin: 08/20/18 10:23 Dose: Not Given Finasteride (Proscar) 5 mg PO DAILY@1800 PENDING SALE TO [facility] Last Admin: 08/20/18 17:15 Dose: Not Given Fluconazole (Diflucan) 100 mg PO DAILY PENDING SALE TO [facility] Last Admin: 08/20/18 10:23 Dose: Not Given Gabapentin (Neurontin) 300 mg PO Q6HR PENDING SALE TO [facility] Last Admin: 08/20/18 17:15 Dose: Not Given Glucagon (Glucagon Inj) 1 mg OTHER PRN PRN PRN Reason: for Hypoglycemia Protocol Guaifenesin (Mucinex Er) 600 mg PO BID SHAHEED Last Admin: 08/20/18 10:24 Dose: Not Given Norepinephrine Bitartrate 16 (mg/ Sodium Chloride) 250 mls @ 1.87 mls/hr IV.CONT TITRATE PRN; Protocol PRN Reason: See Protocol Bumetanide (Bumex Inj) 25 mg in 100 mls @ 2 mls/hr IV.CONT .Q24H SHAHEED Last Admin: 08/20/18 03:53 Dose: 0.5 mg/hr, 2 mls/hr Heparin Sodium/Dextrose (Heparin/D5w 25,000 U/250 Ml) 25,000 unit in 250 mls @ 0 mls/hr IV.CONT TITRATE PRN; Protocol PRN Reason: Per Protocol Last Admin: 08/20/18 03:54 Dose: 1,800 units/hr, 18 mls/hr Dopamine HCl/Dextrose (Dopamine 400 Mg/250 Ml Premix) 400 mg in 250 mls @ 17.516 mls/hr IV.CONT TITRATE PRN; Protocol PRN Reason: PER PROTOCOL Last Titration: 08/20/18 05:32 Dose: 1 mcg/kg/min, 5.84 mls/hr Fosphenytoin Sodium 200 mgpe/ (Sodium Chloride) 54 mls @ 216 mls/hr IV.SIG Q12HR PENDING SALE TO [facility] Last Infusion: 08/20/18 17:29 Dose: Infused Ceftaroline Fosamil 400 mg/ (Sodium Chloride) 100 mls @ 100 mls/hr IV.SIG Q8H SHAHEED Last Admin: 08/20/18 17:15 Dose: Not Given Insulin Detemir (Levemir Inj) 25 unit SQ BID SHAHEED Last Admin: 08/20/18 10:24 Dose: Not Given Insulin Human Regular (Novolin R Correctional Sugar Inj) 0 units SQ Q4HR SHAHEED; Protocol Last Admin: 08/20/18 17:14 Dose: Not Given Lactulose (Lactulose Liq) 30 ml PO DAILY PRN PRN Reason: SEVERE CONSITIPATION Lansoprazole (Prevacid Solutab) 30 mg NG/OG DAILY PENDING SALE TO [facility] Last Admin: 08/20/18 10:25 Dose: Not Given Lorazepam (Ativan Inj) 1 mg IV.PUSH Q2H PRN PRN Reason: anxiety, SOB, tachypnea Miscellaneous Medication () 1 each OROPHARYNG 0000,0400,1200,1600 PENDING SALE TO [facility] Last Admin: 08/20/18 17:14 Dose: Not Given Morphine Sulfate (Morphine Inj) 6 mg IV.PUSH Q2H PRN PRN Reason: pain, SOB, Tachypnea Last Admin: 08/20/18 14:42 Dose: 6 mg Ondansetron HCl (Zofran Inj) 4 mg IV.PUSH Q6H PRN PRN Reason: NAUSEA OR VOMITING Last Admin: 08/16/18 00:57 Dose: 4 mg Polyethylene Glycol (Miralax) 17 gm PO BID PENDING SALE TO [facility] Last Admin: 08/20/18 10:24 Dose: Not Given Potassium Chloride (K-Dur) 20 meq PO BID PENDING SALE TO [facility] Last Admin: 08/20/18 10:24 Dose: Not Given Senna/Docusate Sodium (Isabella-Colace) 1 tab PO BID PENDING SALE TO [facility] Last Admin: 08/20/18 10:24 Dose: Not Given Sennosides (Senokot) 17.2 mg PO Q12H PRN PRN Reason: Moderate Constipation Sodium Chloride (Ns Flush) 2 ml IV.FLUSH BID PENDING SALE TO [facility] Last Admin: 08/20/18 17:13 Dose: Not Given Sodium Chloride (Ns Flush) 2 ml IV.FLUSH PRN PRN PRN Reason: FLUSH AFTER USING IV ACCESS Tamsulosin HCl (Flomax) 0.4 mg PO BID PENDING SALE TO [facility] Last Admin: 08/20/18 10:23 Dose: Not Given Terbutaline Sulfate (Brethine Inj) 1 mg SQ UNSCH PRN PRN Reason: For Extravasation Allergies Allergy/AdvReac Type Severity Reaction Status Date / Time No Known Allergies Allergy Verified 08/06/18 01:24 Physical Exam Vital signs: Vital Signs 08/19/18 19:54 08/19/18 20:00 08/19/18 21:00 Temperature 98.0 F Pulse Rate 64 67 Respiratory Rate 11 L 8 L Blood Pressure 108/53 L Pulse Oximetry 100 100 99 08/19/18 21:01 08/19/18 22:00 08/19/18 22:01 Temperature Pulse Rate 62 62 62 Respiratory Rate 8 L 9 L 8 L Blood Pressure 110/51 L 109/51 L Pulse Oximetry 99 100 100 08/19/18 23:00 08/20/18 00:00 08/20/18 00:03 Temperature 97.9 F Pulse Rate 66 65 64 Respiratory Rate 20 7 L 7 L Blood Pressure 108/52 L 106/53 L Pulse Oximetry 98 100 100 08/20/18 01:00 08/20/18 02:00 08/20/18 03:00 Temperature Pulse Rate 63 67 71 Respiratory Rate 6 L 8 L 8 L Blood Pressure 108/51 L 101/52 L 106/53 L Pulse Oximetry 100 99 100 08/20/18 04:00 08/20/18 05:00 08/20/18 05:01 Temperature 98.3 F Pulse Rate 73 59 L 63 Respiratory Rate 12 11 L 19 Blood Pressure 113/54 L 103/52 L Pulse Oximetry 98 100 100 08/20/18 06:00 08/20/18 06:01 08/20/18 06:38 Temperature Pulse Rate 64 67 Respiratory Rate 12 19 20 Blood Pressure 116/55 L Pulse Oximetry 100 100 08/20/18 07:00 08/20/18 08:00 08/20/18 08:01 Temperature 97.8 F Pulse Rate 68 67 67 Respiratory Rate 28 H 11 L 13 Blood Pressure 110/56 L 99/47 L Pulse Oximetry 100 100 100 08/20/18 09:00 08/20/18 10:00 08/20/18 10:01 Temperature Pulse Rate 71 67 65 Respiratory Rate 11 L 11 L 10 L Blood Pressure 93/56 L 105/53 L Pulse Oximetry 100 100 100 08/20/18 11:00 08/20/18 11:01 08/20/18 11:05 Temperature Pulse Rate 56 L 55 L 58 L Respiratory Rate 10 L 11 L 10 L Blood Pressure 84/47 L 86/50 L Pulse Oximetry 100 100 100 08/20/18 11:10 08/20/18 11:15 08/20/18 11:20 Temperature Pulse Rate 57 L 58 L 60 Respiratory Rate 10 L 10 L 10 L Blood Pressure 90/48 L 90/53 L 87/50 L Pulse Oximetry 100 100 100 08/20/18 11:25 08/20/18 11:30 08/20/18 11:35 Temperature Pulse Rate 58 L 55 L 59 L Respiratory Rate 10 L 10 L 10 L Blood Pressure 94/54 L 87/50 L 95/51 L Pulse Oximetry 100 100 99 08/20/18 12:00 08/20/18 12:01 08/20/18 13:00 Temperature Pulse Rate 55 L 55 L 64 Respiratory Rate 10 L 10 L 15 Blood Pressure 96/53 L 113/55 L Pulse Oximetry 100 100 99 08/20/18 14:00 08/20/18 14:01 08/20/18 15:00 Temperature Pulse Rate 60 54 L 62 Respiratory Rate 25 H 9 L 11 L Blood Pressure 93/44 L 97/55 L Pulse Oximetry 98 100 99 08/20/18 16:00 08/20/18 17:00 Temperature 98 F Pulse Rate 63 63 Respiratory Rate 7 L 10 L Blood Pressure Pulse Oximetry 97 99 Intake & Output 08/20/18 08/20/18 08/21/18 06:59 18:59 06:59 Intake Total 715 / 715 54 / 54 Output Total 850 / 850 800 / 800 Balance -135 / -135 -746 / -746 Weight 144.5 kg Intake: IV 715 / 715 54 / 54 Bumex Inj 25 mg In 100 ml @ 0.5 100 / 100 MG/HR 2 mls/hr IV.CONT .Q24H SHAHEED Rx#:[id number] DOPamine 400 MG/250 ML Premix 211 / 211 400 mg In 250 ml @ 3 MCG/KG/MIN 17.516 mls/hr IV.CONT TITRATE PRN Rx#:[id number] Heparin/D5W 25,000 U/250 mL 25, 250 / 250 000 unit In 250 ml @ Per Protocol IV.CONT TITRATE PRN Rx #:[id number] Teflaro Inj 600 MG In NS Inj 100 / 100 100 ML @ 100 mls/hr IV.SIG Q8H SHAHEED Rx#:[id number] Cerebyx Inj 200 MGPE In NS Inj 54 / 54 54 / 54 50 ML @ 216 mls/hr IV.SIG Q12HR SHAHEED Rx#:[id number] Oral 0 / 0 Output: Urine Amount (Catheter) 850 / 850 800 / 800 Indwelling Urethral Catheter 850 / 850 800 / 800 Chest Tube Drainage 0 / 0 Left Mid-Axillary Chest 0 / 0 Right Mid-Axillary Chest 0 / 0 Other: Date of Last Bowel Movement 08/20/18 08/20/18 # Bowel Movements 1 Narrative: GENERAL: 73-year-old male, lying in bed, nc o2. SKIN: Cool and dry HEAD: Atraumatic. Normocephalic. EYES: Pupils equal and round. No scleral icterus. No injection or drainage. ENT: No nasal bleeding or discharge. Mucous membranes pink and moist. NECK: Trachea midline. No JVD. CARDIOVASCULAR: Regular rate and rhythm. RESPIRATORY: on nc o2. somewhat tachypneic. slightly labored. equal chest rise. GASTROINTESTINAL: Abdomen obese and protuberant. no guarding. MUSCULOSKELETAL: Extremities with right lower extremity with destruction of the second/third/fourth digits foot to bone. Currently covered with Juan bandage NEUROLOGICAL: RASS -1. awakens and follows commands. - Urinary Catheter Management Indwelling Urethral Catheter Cath placed during this visit: yes Reason for continuing: Acute urinary retention Insertion date: 08/11/18 Insertion time: 12:00 Results 08/20/18 03:52 08/20/18 03:52 Coagulation 08/19/18 08/20/18 Range/Units 12:54 03:52 APTT 56.9 H D 53.7 H (24.3-30.1) sec CBC 08/19/18 08/20/18 Range/Units 05:18 03:52 WBC 10.6 10.5 (4.0-11.0) th/mm3 RBC 3.06 L 3.02 L (4.50-5.90) mil/mm3 Hgb 8.6 L 8.6 L (13.0-17.0) gm/dL Hct 26.7 L 26.0 L (39.0-51.0) % Plt Count 100 L 116 L (150-450) th/mm3 Comprehensive Metabolic Panel 08/18/18 08/19/18 08/20/18 Range/Units 21:40 05:18 03:52 Sodium 133 L 132 L (136-145) meq/L Potassium 3.7 D 3.9 3.6 (3.5-5.1) meq/L Chloride 86 L 85 L (98-107) meq/L Carbon Dioxide 34.4 H 34.4 H (21.0-32.0) meq/L BUN 95 H 98 H (7-18) mg/dL Creatinine 3.36 H 3.28 H (0.60-1.30) mg/dL Calcium 8.5 8.4 L (8.5-10.1) mg/dL Intake and Output 08/20/18 08/20/18 08/20/18 06:59 14:59 22:59 Intake Total 561 / 561 54 / 54 Output Total 850 / 850 800 / 800 Balance -289 / -289 -746 / -746 Intake: IV 561 / 561 54 / 54 Bumex Inj 25 mg In 100 ml @ 0.5 100 / 100 MG/HR 2 mls/hr IV.CONT .Q24H SHAHEED Rx#:[id number] DOPamine 400 MG/250 ML Premix 211 / 211 400 mg In 250 ml @ 3 MCG/KG/MIN 17.516 mls/hr IV.CONT TITRATE PRN Rx#:[id number] Heparin/D5W 25,000 U/250 mL 25, 250 / 250 000 unit In 250 ml @ Per Protocol IV.CONT TITRATE PRN Rx #:[id number] Cerebyx Inj 200 MGPE In NS Inj 54 / 54 50 ML @ 216 mls/hr IV.SIG Q12HR SHAHEED Rx#:[id number] Oral 0 / 0 Output: Urine Amount (Catheter) 850 / 850 800 / 800 Indwelling Urethral Catheter 850 / 850 800 / 800 Chest Tube Drainage 0 / 0 Left Mid-Axillary Chest 0 / 0 Right Mid-Axillary Chest 0 / 0 Other: Date of Last Bowel Movement 08/20/18 08/20/18 08/20/18 # Bowel Movements 1 Weight 144.5 kg Assessment and Plan - Assessment (1) Respiratory failure Code(s): J96.90 - Respiratory failure, unspecified, unspecified whether with hypoxia or hypercapnia Status: Acute (2) PNA (pneumonia) Code(s): J18.9 - Pneumonia, unspecified organism Status: Acute (3) Pleural effusion Code(s): J90 - Pleural effusion, not elsewhere classified Status: Acute (4) Osteomyelitis of ankle and foot Code(s): M86.9 - Osteomyelitis, unspecified Status: Acute (5) Diastolic heart failure Code(s): I50.30 - Unspecified diastolic (congestive) heart failure Status: Acute (6) Dyspnea Code(s): R06.00 - Dyspnea, unspecified Status: Acute - Plan 1) Bilateral pleural effusions Bumex drip Chest tubes Diuresing well 2) Diastolic dysfunction by CHIKA 3) Left atrial appendage thrombus Started on heparin drip 4) Questionable AFib Will be on anti-coagulation due to thrombus No further work up 5) Agree with palliative care consultation Appears to be progressing slowly 6) Wide complex tachycardia Possible catecholamine stimulation on Dopamine vs Afib with aberrancy Not a candidate for ischemic evaluation, will continue to follow 7) For hospice care Will see PRN
== END 2018-08-20 19:50 | disposition hospice, inpatient (51) ==
LOC: NEPE 01:05 → NEDA 03:32 → N04 04:48 → HIMC 08-09 17:35
PROVIDERS: ADMIT Internal Medicine Critical Care Medicine; ATTEND Internal Medicine Critical Care Medicine

== ENCOUNTER 2018-08-31 15:56 | Inpatient (IN) ==
--- NOTE | 2018-08-31 16:24 | ED ---
HPI General Chief Complaint: Medical Clearance Stated Complaint: Medical Clearance Time Seen by Provider: 08/31/18 16:19 Source: EMS, RN notes reviewed and old records reviewed Mode of arrival: EMS Limitations: altered mental status History of Present Illness HPI narrative: 73-year-old male patient from inpatient hospice with previous history of COPD, pneumonia, morbid obesity, diabetes, osteomyelitis of the left foot, currently DNR, presents to the ER today brought in sent in by hospice because his sister wants him to be evaluated for possible needs of antibiotics. The patient has been having decreased p.o. intake, more lethargic, and currently is not able to give me any further information, not oriented. Related Data Previous Rx's Medication Instructions Recorded acetaminophen 650 mg PO Q6H PRN tab 08/20/18 lorazepam [Ativan] 1 mg IV.PUSH Q2H PRN ml 08/20/18 morphine 6 mg IV.PUSH Q2H PRN ml 08/20/18 Allergies Allergy/AdvReac Type Severity Reaction Status Date / Time No Known Allergies Allergy Verified 08/31/18 16:18 Review of Systems ROS Unobtainable ROS Unobtainable: unobtainable due to mental status PMFSH History History Provided By: Medical Record Medical History Medical History Depression (Chronic) Diabetes (Chronic) Diabetes (Chronic) GERD (gastroesophageal reflux disease) (Chronic) HTN (hypertension) (Chronic) High cholesterol (Chronic) Neuropathy (Chronic) Obesity (Chronic) Family History Family History Father Malignancy Social History Social History Substance History: Unable to Obtain Second Hand Smoke Exposure: No Smoking Status: Cognitive impairment Tobacco Type: Cigarettes How Often Do You Have a Drink Containing Alcohol: Unable to Obtain Recent Travel in [facility] within the Last 8 Weeks: No Recent Out of Country Travel within the Last 8 Weeks: No Exam Narrative Exam Narrative: GENERAL: Well-developed obese elderly white male patient currently and moderate distress. Lethargic, not oriented. SKIN: Focused skin assessment warm/dry. Left foot fourth and fifth digit areas with skin breakdown, edema. HEAD: Atraumatic. Normocephalic. EYES: Pupils equal and round. No scleral icterus. No injection or drainage. ENT: No nasal bleeding or discharge. Mucous membranes pink and moist. NECK: Trachea midline. No JVD. CARDIOVASCULAR: Regular rate and rhythm. No murmur appreciated. RESPIRATORY: No accessory muscle use. Clear to auscultation. Breath sounds equal bilaterally. GASTROINTESTINAL: Abdomen soft, obese, non-tender, nondistended. Hepatic and splenic margins not palpable. MUSCULOSKELETAL: No obvious deformities. No clubbing. No cyanosis. No edema. NEUROLOGICAL: Lethargic, not following commands, unable to assess PSYCHIATRIC: Lethargic, unable to assess. Course Initial Documented Vital Signs Pulse Oximetry 97 08/31/18 16:19 Last Documented Vital Signs Temperature 97.6 F 08/31/18 16:22 Pulse Rate 75 08/31/18 17:34 Respiratory Rate 16 08/31/18 17:34 Blood Pressure 139/71 08/31/18 16:22 Pulse Oximetry 95 08/31/18 17:34 Medical Decision Making MDM Narrative Medical decision making narrative: Lab work is significant for UTI and hyperglycemia. His BUN and creatinine are elevated but he has chronic kidney disease and this appears to be fairly baseline. There is no significant white count elevation. His vital signs are stable in the ER. IV antibiotics were initiated after cultures were done. Insulin was also ordered for the patient. At this point, case had been discussed with hospice and the patient's sisters who are his decision makers, and they want him to be admitted to the hospital and IV antibiotics and possibly PEG tube if he needs it. At this point, case is discussed with Dr. Patel for admission. Medical Screen Exam Complete: Yes Emergency Medical Condition: Yes Differential Diagnosis Differential Diagnosis: Dehydration versus sepsis versus electrolyte abnormal Lab Data Lab results reviewed: Yes I reviewed the patient's lab results. Result diagrams: 08/31/18 16:20 08/31/18 16:20 Lab Results 08/31/18 08/31/18 08/31/18 Range/Units 16:20 16:20 16:20 CBC w Diff Auto diff final WBC 7.5 (4.0-11.0) th/mm3 RBC 3.36 L (4.50-5.90) mil/mm3 Hgb 9.8 L (13.0-17.0) gm/dL Hct 29.8 L (39.0-51.0) % MCV 88.8 (80.0-100.0) fL MCH 29.2 (27.0-34.0) pg MCHC 32.9 (32.0-36.0) % RDW 20.5 H (11.6-17.2) % Plt Count 263 D (150-450) th/mm3 MPV 9.4 (7.0-11.0) fL Neut % (Auto) 44.1 (16.0-70.0) % Lymph % (Auto) 39.7 (9.0-44.0) % [place] % (Auto) 6.6 (0.0-8.0) % Eos % (Auto) 8.6 H (0.0-4.0) % Baso % (Auto) 1.0 (0.0-2.0) % Neut # (Auto) 3.3 (1.8-7.7) th/mm3 Lymph # (Auto) 3.0 (1.0-4.8) th/mm3 [place] # (Auto) 0.5 (0.0-0.9) th/mm3 Eos # (Auto) 0.6 H (0.0-0.4) th/mm3 Baso # (Auto) 0.1 (0.0-0.2) th/mm3 WBC Differential . Differential Comment . Sodium 145 (136-145) meq/L Potassium 4.2 (3.5-5.1) meq/L Chloride 103 (98-107) meq/L Carbon Dioxide 29.1 (21.0-32.0) meq/L Anion Gap 13 (5-15) meq/L BUN 73 H (7-18) mg/dL Creatinine 2.70 H (0.60-1.30) mg/dL Estimated GFR 23 L (>89) mL/min Random Glucose 406 H (74-106) mg/dL Lactic Acid 1.7 (0.4-2.0) mmol/L Calcium 9.2 (8.5-10.1) mg/dL Magnesium 2.2 (1.5-2.5) mg/dL Total Bilirubin 0.7 (0.2-1.0) mg/dL AST 17 (15-37) U/L ALT 20 (12-78) U/L Alkaline Phosphatase 92 (45-117) U/L B-Natriuretic Peptide (0-100) pg/mL Total Protein 9.2 H (6.4-8.2) g/dL Albumin 2.9 L (3.4-5.0) g/dL Ur Collection Type Urine Color (Yellw/Straw) Urine Clarity (Clear) Urine pH (5.0-8.5) Ur Specific [place] (1.002-1.035) Urine Protein (Neg-Trace) mg/dL Urine Glucose (UA) (Negative) mg/dL Urine Ketones (Negative) mg/dL Urine Occult Blood (Negative) Urine Nitrate (Negative) Urine Bilirubin (Negative) Urine Urobilinogen (Less than 2) mg/dL Ur Leukocyte Esterase (Negative) Urine RBC (0-3) /hpf Urine WBC (0-5) /hpf Ur Squamous Epith Cells (0-5) /hpf Ur Renal Epithelial Cell (None) /hpf Urine Bacteria (None) /hpf Urine Yeast (None) /hpf Micro UA Comment Ur Microscopic Review Urine Culture Comments 08/31/18 08/31/18 Range/Units 16:20 16:25 CBC w Diff WBC (4.0-11.0) th/mm3 RBC (4.50-5.90) mil/mm3 Hgb (13.0-17.0) gm/dL Hct (39.0-51.0) % MCV (80.0-100.0) fL MCH (27.0-34.0) pg MCHC (32.0-36.0) % RDW (11.6-17.2) % Plt Count (150-450) th/mm3 MPV (7.0-11.0) fL Neut % (Auto) (16.0-70.0) % Lymph % (Auto) (9.0-44.0) % [place] % (Auto) (0.0-8.0) % Eos % (Auto) (0.0-4.0) % Baso % (Auto) (0.0-2.0) % Neut # (Auto) (1.8-7.7) th/mm3 Lymph # (Auto) (1.0-4.8) th/mm3 [place] # (Auto) (0.0-0.9) th/mm3 Eos # (Auto) (0.0-0.4) th/mm3 Baso # (Auto) (0.0-0.2) th/mm3 WBC Differential Differential Comment Sodium (136-145) meq/L Potassium (3.5-5.1) meq/L Chloride (98-107) meq/L Carbon Dioxide (21.0-32.0) meq/L Anion Gap (5-15) meq/L BUN (7-18) mg/dL Creatinine (0.60-1.30) mg/dL Estimated GFR (>89) mL/min Random Glucose (74-106) mg/dL Lactic Acid (0.4-2.0) mmol/L Calcium (8.5-10.1) mg/dL Magnesium (1.5-2.5) mg/dL Total Bilirubin (0.2-1.0) mg/dL AST (15-37) U/L ALT (12-78) U/L Alkaline Phosphatase (45-117) U/L B-Natriuretic Peptide 72 (0-100) pg/mL Total Protein (6.4-8.2) g/dL Albumin (3.4-5.0) g/dL Ur Collection Type Cath Urine Color Yellow (Yellw/Straw) Urine Clarity Cloudy H (Clear) Urine pH 5.5 (5.0-8.5) Ur Specific [place] Greater/equal 1.030 (1.002-1.035) Urine Protein 100 H (Neg-Trace) mg/dL Urine Glucose (UA) 100 H (Negative) mg/dL Urine Ketones 15 H (Negative) mg/dL Urine Occult Blood Moderate H (Negative) Urine Nitrate Positive H (Negative) Urine Bilirubin Negative (Negative) Urine Urobilinogen 0.2 (Less than 2) mg/dL Ur Leukocyte Esterase Moderate H (Negative) Urine RBC 15-50 H (0-3) /hpf Urine WBC 51-189 H (0-5) /hpf Ur Squamous Epith Cells 6-10 H (0-5) /hpf Ur Renal Epithelial Cell 1-5 H (None) /hpf Urine Bacteria Many H (None) /hpf Urine Yeast Many H (None) /hpf Micro UA Comment Cath-culture ind Ur Microscopic Review Microscopic reviewed Urine Culture Comments Cath-cult indicated Imaging Data Attestation: I personally reviewed and interpreted this imaging study as follows : Radiologist's impression: Chest X-Ray 08/31/18 16:19 CONCLUSION: There continues to be some scattered residual interstitial infiltrates bilaterally, right greater than left. However, the overall findings appear to be improved compared to the prior examination. The heart size remains enlarged but stable. Discharge Plan Discharge Disposition Patient Disposition: 30 Still Patient Discharge Condition Condition: Fair Discharge Details Anticipated Discharge Date: 08/31/18 Diagnosis: Altered mental state, UTI (urinary tract infection) Physicians Team ED Provider: Arnulfo Robles Primary Care Provider: UNKNOWN, Rxs /Orders / Referrals /Forms Prescriptions: No Action acetaminophen 325 mg Tablet 650 mg PO Q6H PRN (Reason: Temp > 100.4) RF: 0 lorazepam [Ativan] 2 mg/mL Solution 1 mg IV.PUSH Q2H PRN (Reason: anxiety, SOB, tachypnea) RF: 0 morphine 4 mg/mL Cartridge 6 mg IV.PUSH Q2H PRN (Reason: pain, SOB, Tachypnea) RF: 0 Discharge Interventions Interventions: Vital Signs Last Done: 08/31/18 17:34 Status ED Status: With Doctor
[2018-08-31 16:40] LABS: Bilirubin,Urine Negative (Negative); Clarity,Urine Cloudy (Clear); Color,Urine Yellow (Yellw/Straw); Glucose,Urine (UA) 100 mg/dL (Negative); Leukocyte Esterase,Urine Moderate (Negative); Nitrite,Urine Positive (Negative); PH,Urine 5.5 (5.0-8.5); Specific Gravity,Urine Greater/Equal 1.030 (1.002-1.035); Urobilinogen,Urine 0.2 mg/dL (Less than 2)
[2018-08-31 16:42] LABS: Baso # (Auto) 0.1 th/mm3 (0.0-0.2); Eos # (Auto) 0.6 th/mm3 (0.0-0.4); Eos % (Auto) 8.6 % (0.0-4.0); Hematocrit 29.8 % (39.0-51.0); Hemoglobin 9.8 gm/dL (13.0-17.0); Lymph % (Auto) 39.7 % (9.0-44.0); Mean Corpuscular HGB Conc 32.9 % (32.0-36.0); Mean Corpuscular Hemoglobin 29.2 pg (27.0-34.0); Mean Corpuscular Volume 88.8 fL (80.0-100.0); Mean Platelet Volume 9.4 fL (7.0-11.0); Mono # (Auto) 0.5 th/mm3 (0.0-0.9); Mono % (Auto) 6.6 % (0.0-8.0); Neut # (Auto) 3.3 th/mm3 (1.8-7.7); Neut % (Auto) 44.1 % (16.0-70.0); Platelet Count 263 th/mm3 (150-450); Red Blood Count 3.36 mil/mm3 (4.50-5.90); Red Cell Distribution Width 20.5 % (11.6-17.2); White Blood Count 7.5 th/mm3 (4.0-11.0)
[2018-08-31 16:47] LABS: Bacteria,Urine Many /hpf; WBC,Urine 51-189 /hpf (0-5)
[2018-08-31 16:52] LABS: Chloride 103 meq/L (98-107); Potassium 4.2 meq/L (3.5-5.1); Sodium 145 meq/L (136-145)
[2018-08-31 16:55] LABS: Albumin 2.9 g/dL (3.4-5.0); Anion Gap 13 meq/L (5-15); Calcium 9.2 mg/dL (8.5-10.1); Carbon Dioxide 29.1 meq/L (21.0-32.0)
--- NOTE | 2018-08-31 17:01 | XR ---
EXAM DATE: 08/31/2018 4:52 PM EST AGE/SEX: 73 years / Male INDICATIONS: Fever. CLINICAL DATA: This is this the patient's initial encounter. Patient reports that signs and symptoms have been present for 1 day and indicates a pain score of Nonresponsive. MEDICAL/SURGICAL HISTORY: Non-responsive. Non-responsive. COMPARISON: [facility] [place], CHEST 1V SINGLE AP, 08/16/2018. . FINDINGS: Exam there appears to be some scattered interstitial infiltrates bilaterally, right greater than left . This appears to be improved compared to the prior study but not resolved. The heart size is enlarge d. No definite pleural effusions. No evidence of pneumothorax. The bony structures are stable. CONCLUSION: There continues to be some scattered residual interstitial infiltrates bilaterally, right greater amira n left. However, the overall findings appear to be improved compared to the prior examination. The he art size remains enlarged but stable. Electronically signed by: Eugenio Rush MD 08/31/2018 4:59 PM EST
[2018-08-31 17:32] LABS: Alanine Aminotransferase 20 U/L (12-78); Alkaline Phosphatase 92 U/L (45-117); Aspartate Aminotransferase 17 U/L (15-37); Blood Urea Nitrogen 73 mg/dL (7-18); Glomerular Filtration Rate 23 mL/min (>89); Glucose,Random 406 mg/dL (74-106); Magnesium 2.2 mg/dL (1.5-2.5); Total Protein 9.2 g/dL (6.4-8.2)
[2018-08-31] MEDS ORDERED: Acetaminophen 325 MG Tablet PO PRN (18:34)
[2018-08-31] MEDS ORDERED: Bisacodyl 10 MG Supp RECTAL PRN (18:34)
[2018-08-31] MEDS: Sod Chloride 0.9% Inj 1,000 ML IV.CONT SCH (18:42)
[2018-09-01] MEDS: Sod Chloride 0.9% Inj 1,000 ML IV.CONT SCH ×2 (05:58→13:54)
[2018-09-01] MEDS ORDERED: Vancomycin Inj 1,000 MG in Sodium Chlor 0.9% Inj 250 ML IV.SIG ONE (13:26)
--- NOTE | 2018-09-01 13:42 | P.HPIM ---
[facility]: UNKNOWN Chief Complaint: [place] [facility] by sister revoking hospice History of Present Illness: 73-year-old white male with a past medical history of morbid obesity, diabetes mellitus type 2, hyperlipidemia, hypertension, chronic kidney disease stage IV was sent from [facility] by his sister revoking hospice after finding him to be more confused and having poor appetite and oral intake. Apparently, she stated that she came to visit him to weeks ago in which he was conversant with her and told her that he want to live. He was placed under hospice after recent prolonged hospitalization in the intensive care unit in which patient required intubation for both a healthcare acquired pneumonia and chronic infection of right foot wound. At this time, patient is extremely sleepy and opens eyes to voice and physical stimuli however is unable to give me any further history. Most of the history was gathered from reviewing old charts and discussing his care with his sister Frances who is his healthcare proxy who currently lives in [place]. She at this time would like to continue aggressive treatment up to the DNR status during this hospitalization. He has a history of osteomyelitis with MRSA isolated previously in the wound and was treated on Zyvox. Review of Systems ROS Unobtainable ROS Unobtainable: unobtainable due to mental status PMFSH Medical History Medical History Depression (Chronic) Diabetes (Chronic) Diabetes (Chronic) GERD (gastroesophageal reflux disease) (Chronic) HTN (hypertension) (Chronic) High cholesterol (Chronic) Neuropathy (Chronic) Obesity (Chronic) Family History Family History Father Malignancy Social History Social History Substance History: Unable to Obtain Second Hand Smoke Exposure: No Smoking Status: Unknown if ever smoked Tobacco Type: Cigarettes How Often Do You Have a Drink Containing Alcohol: Unable to Obtain Recent Travel in [facility] within the Last 8 Weeks: No Recent Out of Country Travel within the Last 8 Weeks: No Immunization History Tetanus Immunization: Unsure Medications and Allergies Allergies Allergy/AdvReac Type Severity Reaction Status Date / Time No Known Allergies Allergy Verified 08/31/18 16:18 Home Medications Medication Instructions Recorded Confirmed Type acetaminophen 650 mg VT Q6H PRN 08/31/18 08/31/18 History bisacodyl 10 mg VT DAILY PRN 08/31/18 08/31/18 History furosemide 40 mg IV DAILY 08/31/18 08/31/18 History haloperidol 2 mg SUBLINGUAL Q1-4H PRN 08/31/18 08/31/18 History haloperidol lactate 2 mg IM Q4-8H PRN 08/31/18 08/31/18 History ipratropium-albuterol 3 ml INHALATION QID 08/31/18 08/31/18 History lorazepam 1 mg PO Q1-2H PRN 08/31/18 08/31/18 History Active Medications: Active Medications Acetaminophen (Tylenol) 650 mg PO Q4H PRN PRN Reason: Headache, fever, pain 1-4 Al Hydroxide/Mg Hydroxide (Milk Of Magnesia Liq) 30 ml PO Q12H PRN PRN Reason: Mild Constipation Albuterol (Duoneb Neb (Prn)) ampul NEB QID [facility] Bisacodyl (Dulcolax Supp) 10 mg RECTAL DAILY PRN PRN Reason: SEVERE CONSITIPATION Sodium Chloride (Ns Inj) 1,000 mls @ 100 mls/hr IV.CONT .Q10H [facility] Stop: 09/01/18 18:44 Last Admin: 09/01/18 05:58 Dose: Not Given Cefepime HCl 1,000 mg/ Sodium (Chloride) 100 mls @ 200 mls/hr IV.SIG Q12H [facility] Last Admin: 09/01/18 05:41 Dose: Not Given Vancomycin HCl 1,000 mg/ (Sodium Chloride) 250 mls @ 250 mls/hr IV.SIG ONCE ONE Stop: 09/01/18 14:25 Lactulose (Lactulose Liq) 30 ml PO DAILY PRN PRN Reason: SEVERE CONSITIPATION Ondansetron HCl (Zofran Inj) 4 mg IV.PUSH Q6H PRN PRN Reason: NAUSEA OR VOMITING Sennosides (Senokot) 17.2 mg PO Q12H PRN PRN Reason: Moderate Constipation Physical Exam Vital signs: Last Vital Signs Temp 97.9 F 09/01/18 11:51 Pulse 97 H 09/01/18 11:51 Resp 20 09/01/18 11:51 BP 112/56 L 09/01/18 11:51 Pulse Ox 97 09/01/18 11:51 Intake & Output 08/30/18 08/31/18 09/01/18 09/02/18 06:59 06:59 06:59 06:59 Intake Total 900 / 900 Output Total 1000 / 1000 Balance -100 / -100 Weight 140.4 kg Narrative: GENERAL: Well-nourished obese white male in no acute distress sleepy SKIN: Warm and dry. HEAD: Atraumatic. Normocephalic. EYES: Pupils equal and round. No scleral icterus. No injection or drainage. ENT: No nasal bleeding or discharge. Mucous membranes pink and moist. NECK: Trachea midline. No JVD. CARDIOVASCULAR: Regular rate and rhythm. RESPIRATORY: No accessory muscle use. Diminished breath sounds bases bilaterally GASTROINTESTINAL: Abdomen soft, obese, non-tender, nondistended. Hepatic and splenic margins not palpable. Normoactive bowel sounds MUSCULOSKELETAL: Extremities without clubbing, cyanosis, trace to 1+ edema, necrotic wound over the right heel and right distal lateral portion of the foot of the fifth metatarsal area with surrounding erythema and swelling NEUROLOGICAL: Sleepy, arousable with voice and physical stimuli, did not answer my questions. 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 1. Encephalopathy, likely due to underlying infection -patient presented with urinary tract infection along with a chronic osteomyelitis with infected chronic right foot and heel wound. Continue monitor mental status with neurological checks. 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 Obtain a swallow evaluation 2. Osteomyelitis with infected right foot and heel wound -patient was placed on IV cefepime, will restart Zyvox due to history of MRSA and chronic kidney disease stage IV until evaluated by infectious disease and podiatry. Per the sister over the phone, she would like him to have surgical intervention if recommended as they had difficulty and intervention previously due to transition to hospice which now is revoked. 3. Abnormal urinalysis with suspected urinary tract infection -follow-up with final urine culture and continue IV antibiotics 4. Chronic kidney disease stage IVmonitor on antibiotics avoid nephrotoxins. Monitor on diuretics. 5. Hypertension history -blood pressure currently controlled without any antihypertensives we will continue to monitor. 6. Diabetes mellitus type 2 historywe will continue to monitor blood sugars with sliding scale insulin coverage 7. History of diastolic heart failurecurrently not in any exacerbation, will monitor, restart Lasix 8. Morbid obesity with BMI greater than 40will still continue to monitor patient's nutritional status 9. History of CVA-aspirin 8. DVT prophylaxisheparin Code Status: DNR H&P: Quality VTE Deep Vein Thrombosis/Pulmonary Embolism Present on Admission: No
[2018-09-01] MEDS ORDERED: Dextrose 50% in Water 50 ML Vial IV.PUSH PRN (16:05)
[2018-09-01] MEDS: Insulin NovoLOG Aspart Correctional Sugar Inj SQ SCH ×2 (17:35→21:54)
--- NOTE | 2018-09-01 19:43 | ECG ---
Date Performed: 08/31/2018 Time Performed: 16:52:01 PTAGE: 73 years EKG: ATRIAL FIBRILLATION INTRAVENTRICULAR CONDUCTION DELAY ABNORMAL ECG PREVIOUS TRACING : 08/15/2018 19.12 Since the previous tracing, no significant change noted DOCTOR: Zachary Winchester Interpretating Date/Time 09/01/2018 19:42:00
--- NOTE | 2018-09-01 20:08 | P.CON ---
History of Present Illness Service: INFECTION DISEASE Consult date: 09/01/18 Requesting Physician: Lisa An Reason for Consult: RIGTH FOOT INFECTION Primary Care Provider: UNKNOWN Chief Complaint: Sent from the care home by sister revoking hospice History of Present Illness: 72 YR OLD MALE ADMITTED TO THE HOSPITAL WITH RIGHT FOOT INFECTION. HE WAS RECENTLY DCD ON HOSPICE AFTER BEING INTUBATED AND TREATED FOR PNEUMONIA AND RIGHT FOOT INFECTION. HE WAS SENT TO [facility]. HIS DAUGHTER RESENDED THE HOSPICE AND BROUGHT HIM IN SHE FELT HE NEEDED ANTIBIOTICS. HE HAS BEEN AFEBRILE. HE IS NOT VERY VERBAL. Review of Systems unobtainable due to mental condition Constitutional: Reports malaise Eyes: Denies blind spots Ears, Nose, Mouth, and Throat: Denies abnormal hearing, Denies pain with swallowing (RIGHT FOOT WOUNDS) Cardiovascular: Denies chest pain PMFSH - History History Provided By: Medical Record - Medical History Medical History: Medical History (Last Reviewed 09/01/18 @ 14:25 by Leidy Rivera) Depression Diabetes Diabetes GERD (gastroesophageal reflux disease) HTN (hypertension) High cholesterol Neuropathy Obesity - Family History Family History: Family History (Last Reviewed 09/01/18 @ 13:39 by Lisa An MD) Father Malignancy - Tobacco History Second Hand Smoke Exposure: No Smoking Status: Unknown if ever smoked Tobacco Type: Cigarettes - Alcohol History How Often Do You Have a Drink Containing Alcohol: Unable to Obtain - Substance Use History Substance History: Unable to Obtain - Travel History Recent Travel in the [place] Within the Last 8 Weeks: No Recent Travel Out of the Country Within the Last 8 Weeks: No - Immunization History Tetanus Immunization: Unsure Medications and Allergies Active Medications: Active Medications Acetaminophen (Tylenol) 650 mg PO Q4H PRN PRN Reason: Headache, fever, pain 1-4 Al Hydroxide/Mg Hydroxide (Milk Of Magnesia Liq) 30 ml PO Q12H PRN PRN Reason: Mild Constipation Albuterol (Duoneb Neb (Filomena)) 1 ampul NEB QID NEB [facility] Last Admin: 09/01/18 16:48 Dose: 1 ampul Aspirin (Aspirin) 325 mg PO DAILY [facility] Bisacodyl (Dulcolax Supp) 10 mg RECTAL DAILY PRN PRN Reason: SEVERE CONSITIPATION Dextrose (D50w Vial) 50 ml IV.PUSH UNSCH PRN PRN Reason: PER HYPOGLYCEMIA PROTOCOL Furosemide (Lasix Inj) 40 mg IV.PUSH DAILY [facility] Last Admin: 09/01/18 17:00 Dose: Not Given Glucagon (Glucagon Inj) 1 mg OTHER PRN PRN PRN Reason: for Hypoglycemia Protocol Cefepime HCl 1,000 mg/ Sodium (Chloride) 100 mls @ 200 mls/hr IV.SIG Q12H [facility] Last Admin: 09/01/18 05:41 Dose: Not Given Linezolid (Zyvox 600 Mg Premix) 300 mls @ 300 mls/hr IV.SIG Q12H [facility] Last Infusion: 09/01/18 17:00 Dose: Infused Insulin Aspart (Novolog Insulin Correctional Sugar Inj) 0 unit SQ ACHS [facility]; Protocol Last Admin: 09/01/18 17:35 Dose: 9 unit Lactulose (Lactulose Liq) 30 ml PO DAILY PRN PRN Reason: SEVERE CONSITIPATION Ondansetron HCl (Zofran Inj) 4 mg IV.PUSH Q6H PRN PRN Reason: NAUSEA OR VOMITING Sennosides (Senokot) 17.2 mg PO Q12H PRN PRN Reason: Moderate Constipation Allergies Allergy/AdvReac Type Severity Reaction Status Date / Time No Known Allergies Allergy Verified 08/31/18 16:18 Home Medications Medication Instructions Recorded Confirmed Type acetaminophen [address] Q6H PRN 08/31/18 08/31/18 History bisacodyl [address] DAILY PRN 08/31/18 08/31/18 History furosemide 40 mg IV DAILY 08/31/18 08/31/18 History haloperidol 2 mg SUBLINGUAL Q1-4H PRN 08/31/18 08/31/18 History haloperidol lactate 2 mg IM Q4-8H PRN 08/31/18 08/31/18 History ipratropium-albuterol 3 ml INHALATION QID 08/31/18 08/31/18 History lorazepam 1 mg PO Q1-2H PRN 08/31/18 08/31/18 History Physical Exam Vital signs: Vital Signs 08/31/18 20:45 09/01/18 00:00 09/01/18 08:00 Temperature 96.9 F L 97.4 F L 97.4 F L Pulse Rate 102 H 96 H 95 H Respiratory Rate 16 16 18 Blood Pressure 100/58 L 119/58 L 120/72 Pulse Oximetry 95 96 97 09/01/18 11:51 09/01/18 16:00 09/01/18 16:51 Temperature 97.9 F 96.6 F L Pulse Rate 97 H 100 H 98 H Respiratory Rate 20 20 24 Blood Pressure 112/56 L 133/97 H Pulse Oximetry 97 99 Intake & Output 09/01/18 09/01/18 09/02/18 06:59 18:59 06:59 Intake Total 800 / 800 1300 / 1300 Output Total 1000 / 1000 Balance -200 / -200 1300 / 1300 Weight 140.4 kg Intake: IV 800 / 800 1300 / 1300 NS Inj 1,000 ML @ 100 mls/hr IV 800 / 800 1000 / 1000 .CONT .Q10H [facility] Rx#:[id number] Zyvox 600 mg Premix 300 ML @ 300 / 300 300 mls/hr IV.SIG Q12H [facility] Rx#: [id number] Oral 0 / 0 Output: Urine 500 / 500 Urine Amount (Catheter) 500 / 500 Indwelling Urethral Catheter 500 / 500 Other: # Voids 3 Weight On Admission 140 kg - Constitutional no acute distress, morbidly obese, chronically ill appearing - Routine HEENT Exam Head: Present: normocephalic Eye: Present: EOMI ENT: Present: mucous membranes moist, mucous membranes dry - Routine Neck Exam Present: supple - Routine Respiratory Exam Present: CTA bilaterally. Absent: accessory muscle use - Routine Cardiovascular Exam Present: RRR, S1, S2 - Routine Abdominal Exam Present: soft Comments: MULTIPLE SUPERFICIAL ABRASIONS IN VARIOUS HEALING STAGES - Routine Extremities Exam Present: pallor. Absent: edema Comments: RIGHT HEEL BLACK ESCHAR / RIGHT BOTTOM OF HIS FOOT NECROTIC AND BLEEDING - Urinary Catheter Management Indwelling Urethral Catheter Cath placed during this visit: yes, but has since been removed by the nurse Reason for continuing: Decision to DC catheter Removal date: 09/01/18 Removal time: 04:30 Assessment and Plan - Plan 1. RIGHT FOOT INFECTION 2. DEMENTIA 3. NEUROPATHY 4. UTI RECOMMENDATION PT NEEDS MRI OF THE RIGHT FOOT ? OSTEOMYELITIS NEEDS WOUND CARE CONSULT ZOSYN/ANTONIIN STOP CEFEPIME PENDING CULTURES FURTHER REC TO FOLLOW
[2018-09-01] MEDS: Piperacil/Tazo 2.25 GM Premix 50 ML IV.SIG SCH (21:49)
[2018-09-01] MEDS: SODIUM CHLOR 0.9% IV.SIG SCH (22:21)
[2018-09-01] MEDS: DAPTOMYCIN IV.SIG SCH (22:21)
[2018-09-02] MEDS: Piperacil/Tazo 2.25 GM Premix 50 ML IV.SIG SCH ×4 (02:12→21:30)
[2018-09-02] MEDS: Aspirin 325 MG Tablet PO SCH (08:48)
[2018-09-02] MEDS: Insulin NovoLOG Aspart Correctional Sugar Inj SQ SCH ×4 (08:48→22:30)
--- NOTE | 2018-09-02 09:04 | P.PNIM ---
Subjective Interval history: Follow up right foot wound. Patient seen and examined, lying in bed awake and alert. Does not verbalize but yes and no answers to questions. No acute events overnight. Podiatry in to see patient today. VSS. AFebrile. Physical Exam Vital signs: Vital Signs 09/01/18 11:51 09/01/18 16:00 09/01/18 16:51 Temperature 97.9 F 96.6 F L Pulse Rate 97 H 100 H 98 H Respiratory Rate 20 20 24 Blood Pressure 112/56 L 133/97 H Pulse Oximetry 97 99 09/01/18 20:00 09/01/18 20:56 09/02/18 00:00 Temperature 98.6 F 99 F Pulse Rate 110 H 105 H 107 H Respiratory Rate 18 19 20 Blood Pressure 141/63 H 149/65 H Pulse Oximetry 96 96 09/02/18 07:25 Temperature Pulse Rate 104 H Respiratory Rate 18 Blood Pressure Pulse Oximetry 94 L Intake & Output 09/01/18 09/02/18 09/02/18 18:59 06:59 18:59 Intake Total 1300 / 1300 200 / 200 Balance 1300 / 1300 200 / 200 Weight 141.3 kg Intake: IV 1300 / 1300 200 / 200 NS Inj 1,000 ML @ 100 mls/hr IV 1000 / 1000 .CONT .Q10H [facility] Rx#:[id number] Cubicin Inj 850 MG In NS Inj 100 / 100 100 ML @ 200 mls/hr IV.SIG Q48H [facility] Rx#:[id number] Zyvox 600 mg Premix 300 ML @ 300 / 300 300 mls/hr IV.SIG Q12H [facility] Rx#: [id number] Zosyn 2.25 GM Premix 50 ML @ 100 / 100 100 mls/hr IV.SIG Q6H [facility] Rx#: [id number] Oral 0 / 0 Other: # Voids 3 2 Narrative: GENERAL: Well-nourished obese white male in no acute distress, sleeping. Awakens to voice. Tracks with eyes. Answers yes and no questions. SKIN: Warm and dry. HEAD: Atraumatic. Normocephalic. EYES: Pupils equal and round. No scleral icterus. No injection or drainage. ENT: No nasal bleeding or discharge. Mucous membranes pink and moist. NECK: Trachea midline. No JVD. CARDIOVASCULAR: Regular rate and rhythm. RESPIRATORY: No accessory muscle use. Diminished breath sounds bases bilaterally. GASTROINTESTINAL: Abdomen soft, obese, non-tender, nondistended. Hepatic and splenic margins not palpable. Normoactive bowel sounds MUSCULOSKELETAL: Extremities without clubbing, cyanosis. NEUROLOGICAL: Awakens to voice. Answered yes and no questions. Unable to perform a thorough neurological exam RIGHT FOOT: Right foot laterally with stable eschar under 4th/5th metatarsal area. Not boggy, no purulence. No erythematous margins. Stable, not acutely infected appearance clinically. Right heel laterally with stable eschar, not boggy. Mild erythema to peripheral tissue, but could be due to pressure on the skin/pre-ulcerative tissue, as it is not warm/swollen to the tissue. - Urinary Catheter Management Indwelling Urethral Catheter Cath placed during this visit: yes, but has since been removed by the nurse Reason for continuing: Decision to DC catheter Removal date: 09/01/18 Removal time: 04:30 Results - Labs CBC & Chem 7: 08/31/18 16:20 08/31/18 16:20 Laboratory Results - last 24 hr 08/31/18 09/01/18 09/01/18 16:25 17:00 21:36 POC Glucose 422 H 373 H Ur Collection Type Cath Urine Color Yellow Urine Clarity Cloudy H Urine pH 5.5 Ur Specific [place] Greater/equal 1.030 Urine Protein 100 H Urine Glucose (UA) 100 H Urine Ketones 15 H Urine Occult Blood Moderate H Urine Nitrate Positive H Urine Bilirubin Negative Urine Urobilinogen 0.2 Ur Leukocyte Esterase Moderate H Urine RBC 15-50 H Urine WBC 51-189 H Ur Squamous Epith Cells 6-10 H Ur Renal Epithelial Cell 1-5 H Urine Bacteria Many H Urine Yeast Many H Micro UA Comment Cath-culture ind Ur Microscopic Review Microscopic reviewed Urine Culture Comments Cath-cult indicated 09/02/18 07:49 POC Glucose 364 H Ur Collection Type Urine Color Urine Clarity Urine pH Ur Specific [place] Urine Protein Urine Glucose (UA) Urine Ketones Urine Occult Blood Urine Nitrate Urine Bilirubin Urine Urobilinogen Ur Leukocyte Esterase Urine RBC Urine WBC Ur Squamous Epith Cells Ur Renal Epithelial Cell Urine Bacteria Urine Yeast Micro UA Comment Ur Microscopic Review Urine Culture Comments Microbiology 08/31/18 16:25 Catheterized Urine Urine Culture - Preliminary gram negative rods 08/31/18 16:35 Blood - Peripheral Aerobic Blood Culture - Preliminary No growth in 1 day 08/31/18 16:35 Blood - Peripheral Anaerobic Blood Culture - Preliminary No growth in 1 day 08/31/18 16:20 Blood - Peripheral Aerobic Blood Culture - Preliminary No growth in 1 day 08/31/18 16:20 Blood - Peripheral Anaerobic Blood Culture - Preliminary No growth in 1 day Assessment and Plan - Plan This is a 73-year-old white male with a history of hypertension, hyperlipidemia , diabetes mellitus type 2, 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 for decline in mental status. Encephalopathy, likely due to underlying infection -Patient presented with urinary tract infection along with a chronic osteomyelitis with infected chronic right foot and heel wound. -Continue monitor mental status with neurological checks. Awakens to voice. Answers yes and no questions. 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 -Speech therapy recommending pured diet with honey thickened liquids. Continue to monitor for any aspiration. -Supportive care. Chronic osteomyelitis Right foot and heel wound, no acute infection per podiatry -Patient was placed on IV cefepime, this has since been DCd. -Infectious disease has seen patient, appreciate input and recommendations. Started on Cubicin and Zosyn IV. -Wound cultures are still pending, follow. -Blood cultures negative to date. Follow. -MD spoke with sister over the phone yesterday who would like him to have surgical intervention, if recommended as they had difficulty and intervention previously due to transition to hospice which now is revoked. -Podiatry has been consulted and has seen patient this morning, appreciate input and recommendations. No surgical intervention at this time. She does not believe that patient has present acute infection. -Continue Betadine wet to dry dressings to right lateral foot and heel to maintain stability as long as possible. -Wound care nurse consulted. - Supportive care. Abnormal urinalysis with suspected urinary tract infection -Follow-up with final urine culture. -Continue IV antibiotics. Chronic kidney disease stage IV -Monitor on antibiotics avoid nephrotoxins. -Monitor on diuretics. Hypertension history -Blood pressure currently controlled without any antihypertensives. Continue to monitor. Diabetes mellitus type 2 history -Will continue to monitor blood sugars with sliding scale insulin coverage as needed. History of diastolic heart failure -Currently not in any exacerbation, will monitor, restart Lasix. Morbid obesity with BMI greater than 40 -Will still continue to monitor patient's nutritional status History of CVA -Continue aspirin DVT prophylaxis: Heparin Code Status: DNR. Hospice has been revoked at this time per patient's sister. Discharge Planning: Awaiting clinical improvement and wound cultures/blood cultures.
--- NOTE | 2018-09-02 10:44 | P.CONPOD ---
History of Present Illness Service: Podiatry Consult date: 09/02/18 Reason for Consult: Right foot osteomyelitis Primary Care Provider: UNKNOWN Chief Complaint: [facility] History of Present Illness: Patient was found at last admission per MRI to have changes consistent with osteomyelitis. This time, he was sent here from hospice by his sister, who is his POA. At last admission, patient was refusing any surgery prior to intubation , was then intubated and sister was very adamant about moving forward with surgery options in patient's absence of ability to make his own decisions. I refused to do surgery then due to the stable nature of his foot at that time, as well as due to the fact that the patient's wishes prior to intubation were quite clear. At that admission, i discussed that patient would only need any surgical treatment if foot became acute. Podiatry consulted this admission regarding same issues for re-evaluation. Review of Systems unobtainable due to mental condition PMFSH - History History Provided By: Medical Record - Medical History Medical History: Medical History (Last Reviewed 09/01/18 @ 14:25 by Leidy Rivera) Depression Diabetes Diabetes GERD (gastroesophageal reflux disease) HTN (hypertension) High cholesterol Neuropathy Obesity - Family History Family History: Family History (Last Reviewed 09/01/18 @ 13:39 by Lisa An MD) Father Malignancy - Tobacco History Second Hand Smoke Exposure: No Smoking Status: Unknown if ever smoked Tobacco Type: Cigarettes - Alcohol History How Often Do You Have a Drink Containing Alcohol: Unable to Obtain - Substance Use History Substance History: Unable to Obtain - Travel History Recent Travel in the [place] Within the Last 8 Weeks: No Recent Travel Out of the Country Within the Last 8 Weeks: No - Immunization History Tetanus Immunization: Unsure Medications and Allergies Active Medications: Active Medications Acetaminophen (Tylenol) 650 mg PO Q4H PRN PRN Reason: Headache, fever, pain 1-4 Al Hydroxide/Mg Hydroxide (Milk Of Magnesia Liq) 30 ml PO Q12H PRN PRN Reason: Mild Constipation Albuterol (Duoneb Neb (Filomena)) 1 ampul NEB QID NEB FILOMENA Last Admin: 09/02/18 07:24 Dose: 1 ampul Aspirin (Aspirin) 325 mg PO DAILY FILOMENA Last Admin: 09/02/18 08:48 Dose: 325 mg Bisacodyl (Dulcolax Supp) 10 mg RECTAL DAILY PRN PRN Reason: SEVERE CONSITIPATION Dextrose (D50w Vial) 50 ml IV.PUSH UNSCH PRN PRN Reason: PER HYPOGLYCEMIA PROTOCOL Furosemide (Lasix Inj) 40 mg IV.PUSH DAILY FILOMENA Last Admin: 09/02/18 08:48 Dose: 40 mg Glucagon (Glucagon Inj) 1 mg OTHER PRN PRN PRN Reason: for Hypoglycemia Protocol Piperacillin/Tazobactam/Dextrose (Zosyn 2.25 Gm Premix) 50 mls @ 100 mls/hr IV.SIG Q6H FILOMENA Last Admin: 09/02/18 08:47 Dose: 100 mls/hr Daptomycin 850 mg/ Sodium (Chloride) 100 mls @ 200 mls/hr IV.SIG Q48H FILOMENA Last Infusion: 09/01/18 23:15 Dose: Infused Insulin Aspart (Novolog Insulin Correctional Sugar Inj) 0 unit SQ ACHS FILOMENA; Protocol Last Admin: 09/02/18 08:48 Dose: 9 unit Lactulose (Lactulose Liq) 30 ml PO DAILY PRN PRN Reason: SEVERE CONSITIPATION Ondansetron HCl (Zofran Inj) 4 mg IV.PUSH Q6H PRN PRN Reason: NAUSEA OR VOMITING Sennosides (Senokot) 17.2 mg PO Q12H PRN PRN Reason: Moderate Constipation Allergies Allergy/AdvReac Type Severity Reaction Status Date / Time No Known Allergies Allergy Verified 08/31/18 16:18 Home Medications Medication Instructions Recorded Confirmed Type acetaminophen 650 mg ID Q6H PRN 08/31/18 08/31/18 History bisacodyl 10 mg ID DAILY PRN 08/31/18 08/31/18 History furosemide 40 mg IV DAILY 08/31/18 08/31/18 History haloperidol 2 mg SUBLINGUAL Q1-4H PRN 08/31/18 08/31/18 History haloperidol lactate 2 mg IM Q4-8H PRN 08/31/18 08/31/18 History ipratropium-albuterol 3 ml INHALATION QID 08/31/18 08/31/18 History lorazepam 1 mg PO Q1-2H PRN 08/31/18 08/31/18 History Physical Exam Vital signs: Vital Signs 09/01/18 11:51 09/01/18 16:00 09/01/18 16:51 Temperature 97.9 F 96.6 F L Pulse Rate 97 H 100 H 98 H Respiratory Rate 20 20 24 Blood Pressure 112/56 L 133/97 H Pulse Oximetry 97 99 09/01/18 20:00 09/01/18 20:56 09/02/18 00:00 Temperature 98.6 F 99 F Pulse Rate 110 H 105 H 107 H Respiratory Rate 18 19 20 Blood Pressure 141/63 H 149/65 H Pulse Oximetry 96 96 09/02/18 07:25 09/02/18 08:00 Temperature 97.0 F L Pulse Rate 104 H 78 Respiratory Rate 18 20 Blood Pressure 127/73 Pulse Oximetry 94 L 93 L Intake & Output 09/01/18 09/02/18 09/02/18 18:59 06:59 18:59 Intake Total 1300 / 1300 200 / 200 Balance 1300 / 1300 200 / 200 Weight 141.3 kg Intake: IV 1300 / 1300 200 / 200 NS Inj 1,000 ML @ 100 mls/hr IV 1000 / 1000 .CONT .Q10H FILOMENA Rx#:[id number] Cubicin Inj 850 MG In NS Inj 100 / 100 100 ML @ 200 mls/hr IV.SIG Q48H FILOMENA Rx#:[id number] Zyvox 600 mg Premix 300 ML @ 300 / 300 300 mls/hr IV.SIG Q12H FILOMENA Rx#: [id number] Zosyn 2.25 GM Premix 50 ML @ 100 / 100 100 mls/hr IV.SIG Q6H FILOMENA Rx#: [id number] Oral 0 / 0 Other: # Voids 3 2 Narrative: Patient is not verbal. He acknowledges that I am in the room, but cannot communicate. Right foot laterally with stable eschar under 4th/5th metatarsal area. Not boggy , no purulence. No erythematous margins. Stable, not acutely infected appearance clinically. Right heel laterally with stable eschar, not boggy. Mild erythema to peripheral tissue, but could be due to pressure on the skin/preulcerative tissue, as it is not warm/swollen to the tissue. Results - Labs CBC & Chem 7: 08/31/18 16:20 08/31/18 16:20 Laboratory Results - last 24 hr 08/31/18 09/01/18 09/01/18 16:25 17:00 21:36 POC Glucose 422 H 373 H Ur Collection Type Cath Urine Color Yellow Urine Clarity Cloudy H Urine pH 5.5 Ur Specific [place] Greater/equal 1.030 Urine Protein 100 H Urine Glucose (UA) 100 H Urine Ketones 15 H Urine Occult Blood Moderate H Urine Nitrate Positive H Urine Bilirubin Negative Urine Urobilinogen 0.2 Ur Leukocyte Esterase Moderate H Urine RBC 15-50 H Urine WBC 51-189 H Ur Squamous Epith Cells 6-10 H Ur Renal Epithelial Cell 1-5 H Urine Bacteria Many H Urine Yeast Many H Micro UA Comment Cath-culture ind Ur Microscopic Review Microscopic reviewed Urine Culture Comments Cath-cult indicated 09/02/18 07:49 POC Glucose 364 H Ur Collection Type Urine Color Urine Clarity Urine pH Ur Specific [place] Urine Protein Urine Glucose (UA) Urine Ketones Urine Occult Blood Urine Nitrate Urine Bilirubin Urine Urobilinogen Ur Leukocyte Esterase Urine RBC Urine WBC Ur Squamous Epith Cells Ur Renal Epithelial Cell Urine Bacteria Urine Yeast Micro UA Comment Ur Microscopic Review Urine Culture Comments Microbiology 09/01/18 19:30 Wound - Foot Gram Stain - Final 08/31/18 16:25 Catheterized Urine Urine Culture - Preliminary gram negative rods Yeast species 08/31/18 16:35 Blood - Peripheral Aerobic Blood Culture - Preliminary No growth in 1 day 08/31/18 16:35 Blood - Peripheral Anaerobic Blood Culture - Preliminary No growth in 1 day 08/31/18 16:20 Blood - Peripheral Aerobic Blood Culture - Preliminary No growth in 1 day 08/31/18 16:20 Blood - Peripheral Anaerobic Blood Culture - Preliminary No growth in 1 day - Imaging MRI R foot 08/08/18 reviewed with findings consistent with osteomyelitis to 4th/ 5th metatarsals and calcaneus. Assessment and Plan - Assessment (1) Osteomyelitis of ankle and foot Code(s): M86.9 - Osteomyelitis, unspecified Status: Acute - Plan I did see this patient upon his last admission and his Right foot/heel are just as stable in appearance now as they were before with no sign of acute infection present. IV antibiotics can be given, it is up to primary team, to reduce risk of flare up of this chronic bone infection while he deals with more pressing health matters. If acute infection does occur in the patient's current state of health, I will be recommending below-knee amputation. I feel patient is a very high risk for any anesthesia at this current time, and he frankly has issues that are much higher priority that are occurring within his body aside from this stable foot. At this time, no surgery is indicated on his feet and he needs to continue betadine wet to dry dressings to right lateral foot and heel to maintain stability as long as possible. Podiatry signing off. Thank you for consultation.
--- NOTE | 2018-09-02 12:51 | P.PNWCN ---
Wound Care Nurse Consult Description: Consult for Wound Management of right foot per Oni/Zafar Recommendation: Please follow Dr Angel orders for betadine to stable eschars. Float heel off mattress surface. Additional information: Patient not seen for right foot as Podiatry has also been consulted for same wounds. Please defer to Dr Angel for questions regarding dressing orders.
[2018-09-03] MEDS: Piperacil/Tazo 2.25 GM Premix 50 ML IV.SIG SCH ×2 (03:43→08:44)
[2018-09-03 07:12] LABS: Baso # (Auto) 0.1 th/mm3 (0.0-0.2); Eos # (Auto) 0.2 th/mm3 (0.0-0.4); Eos % (Auto) 2.6 % (0.0-4.0); Hematocrit 30.8 % (39.0-51.0); Lymph # (Auto) 2.9 th/mm3 (1.0-4.8); Mean Corpuscular HGB Conc 32.6 % (32.0-36.0); Mean Corpuscular Hemoglobin 29.2 pg (27.0-34.0); Mean Corpuscular Volume 89.4 fL (80.0-100.0); Mean Platelet Volume 9.6 fL (7.0-11.0); Mono # (Auto) 0.7 th/mm3 (0.0-0.9); Mono % (Auto) 7.8 % (0.0-8.0); Neut # (Auto) 4.5 th/mm3 (1.8-7.7); Neut % (Auto) 53.6 % (16.0-70.0); Platelet Count 260 th/mm3 (150-450); Red Blood Count 3.44 mil/mm3 (4.50-5.90); Red Cell Distribution Width 20.5 % (11.6-17.2); White Blood Count 8.4 th/mm3 (4.0-11.0)
[2018-09-03] MEDS: Aspirin 325 MG Tablet PO SCH (08:44)
[2018-09-03] MEDS: Insulin NovoLOG Aspart Correctional Sugar Inj SQ SCH ×4 (08:44→20:15)
--- NOTE | 2018-09-03 10:07 | P.PNID ---
Subjective Remarks: Awake, non verbal No fevers Antibiotics: Vancomycin and Zosyn Lines: Peripheral IV line Past Medical History: Depression (Chronic) Diabetes (Chronic) Diabetes (Chronic) GERD (gastroesophageal reflux disease) (Chronic) HTN (hypertension) (Chronic) High cholesterol (Chronic) Neuropathy (Chronic) Obesity (Chronic) Allergies/Adverse Reactions: Allergies No Known Allergies Allergy (Verified 08/31/18 16:18) Objective Vital Signs 09/02/18 12:00 09/02/18 13:55 09/02/18 16:00 Temperature 97.2 F L 97.0 F L Pulse Rate 76 101 H 82 Respiratory Rate 20 18 19 Blood Pressure 126/78 122/76 Pulse Oximetry 93 L 94 L 09/02/18 20:00 09/02/18 20:07 09/03/18 00:00 Temperature 98.6 F 97.3 F L Pulse Rate 90 103 H 105 H Respiratory Rate 19 16 19 Blood Pressure 102/51 L 121/57 L Pulse Oximetry 95 93 L 09/03/18 07:31 Temperature Pulse Rate 105 H Respiratory Rate 20 Blood Pressure Pulse Oximetry Intake & Output 09/02/18 09/03/18 09/03/18 18:59 06:59 18:59 Intake Total 100 / 100 200 / 200 Output Total 400 / 400 Balance 100 / 100 -200 / -200 Weight 141.3 kg Intake: IV 100 / 100 100 / 100 Zosyn 2.25 GM Premix 50 ML @ 100 / 100 100 / 100 100 mls/hr IV.SIG Q6H SHAHEED Rx#: [id number] Other 100 / 100 Output: Urine 400 / 400 Other: Other Intake Source Saline Solution # Voids 3 08/31/18 16:25 Catheterized Urine Urine Culture - Preliminary Citrobacter species Multidrug Resistant Yeast species 08/31/18 16:35 Blood - Peripheral Aerobic Blood Culture - Preliminary No growth in 2 days 08/31/18 16:35 Blood - Peripheral Anaerobic Blood Culture - Preliminary No growth in 2 days 08/31/18 16:20 Blood - Peripheral Aerobic Blood Culture - Preliminary No growth in 2 days 08/31/18 16:20 Blood - Peripheral Anaerobic Blood Culture - Preliminary No growth in 2 days 09/01/18 19:30 Wound - Foot Gram Stain - Final 09/01/18 19:30 Wound - Foot Wound Culture - Pending Lab - Hematology Results 09/03/18 06:51 CBC w Diff Auto diff final WBC 8.4 RBC 3.44 L Hgb 10.0 L Hct 30.8 L MCV 89.4 MCH 29.2 MCHC 32.6 RDW 20.5 H Plt Count 260 MPV 9.6 Neut % (Auto) 53.6 Lymph % (Auto) 35.0 [place] % (Auto) 7.8 Eos % (Auto) 2.6 Baso % (Auto) 1.0 Neut # (Auto) 4.5 Lymph # (Auto) 2.9 [place] # (Auto) 0.7 Eos # (Auto) 0.2 Baso # (Auto) 0.1 WBC Differential . Differential Comment . Lab - Chemistry Results 09/01/18 09/01/18 09/02/18 17:00 21:36 07:49 POC Glucose 422 H 373 H 364 H 09/02/18 09/02/18 09/02/18 11:42 17:01 22:29 POC Glucose 379 H 376 H 432 H 09/03/18 08:09 POC Glucose 407 H Imaging: ITS Impressions Chest X-Ray 08/31/18 16:19 CONCLUSION: There continues to be some scattered residual interstitial infiltrates bilaterally, right greater than left. However, the overall findings appear to be improved compared to the prior examination. The heart size remains enlarged but stable. Physical Exam: Alert, non verbal Pallor No icterus Chest : BS shahab decreased Heart : S 1 S2 normal Abdomen: Soft Non tender Bowel sounds present Significant wasting of muscles. R foot with clean dry dressing Assessment and Plan (1) Osteomyelitis of ankle and foot Status: Acute Code(s): M86.9 - Osteomyelitis, unspecified (2) Chronic right arterial ischemic stroke, MCA (middle cerebral artery) Status: Acute Code(s): I69.30 - Unspecified sequelae of cerebral infarction (3) Acute kidney injury Status: Acute Code(s): N17.9 - Acute kidney failure, unspecified (4) UTI (urinary tract infection) Status: Acute Code(s): N39.0 - Urinary tract infection, site not specified (5) Diabetes Status: Acute Code(s): E11.9 - Type 2 diabetes mellitus without complications (6) Hypertension Status: Acute Code(s): I10 - Essential (primary) hypertension - Plan Follow cultures Noted Podiatry recommendations_ Patient does have necrotic wounds Continue IV Daptomycin Stop Zosyn Start Meropenem 500 mg IV q 12hrs ( MDRO Citrobacter)
--- NOTE | 2018-09-03 12:20 | P.DIET ---
Nutritional Evaluation Type of nutrition evaluation: initial (right foot ostemyelitis; sent here from hospice) Nutrition screening: [facility] Screening comments: 09/02/18 [facility] Poor PO Intake; Low Eliceo Score Subjective Subjective Comments: Eliceo Score 11-pt w/limited mobility. Pt had not received breakfast when visited earlier; now w/25% po intake for meal. Spoke w/RN Chanelle-pt needs assistance w/feedings and is more alert today. Objective - Diagnosis UTI, AMS, Hyperglycemia - Objective % IBW: 174 Body Weight Used for Calculations: IBW (80.9 kg) Energy Needs - Lower Range (kCal/kg): 25 Energy Needs - Upper Range (kCal/kg): 30 Lower Limit kCal/kg (kCals): 2,023 Upper Limit kCal/kg (kCals): 2,427 Lower Limit Protein Factor (Grams per Kg): 1.2 Upper Limit Protein Factor (Grams per Kg): 1.4 Lower Protein Needs (Protein): 97 Upper Protein Needs (Protein): 113 Dietitian Reviewed in Medical Record: Current diet, Curent medications, Intake & Output, Labs, Medical history Diet Order: Cardiac Pureed Liquids tp honey thickened consistency Speech Therapy Recommendations: Yes (08/02/18 Pureed honey thickened liquids) Objective Comments: PMH includes: Depression, GERD DM, high Cholesterol, HTN, Neuropathy, Obesity, CKD Stage IV Labs include: POC Glucose 407, BUN 73, Creatinine 2.70, estGFR 23 Meds include: Lasix, Lactulose, Novolog, Zofran Assessment Assessment: Pt is at nutritional risk r/t diagnosis, risk for skin breakdown w/Eliceo Score 11.0 and poor po intake. Pt is feeding w/assist. Rec 2000ADA pureed diet. Send Suplena supplement BID(= 425 kcal and 10.6g protein per serving). Labs reviewed- monitor glucose and renal labs closely. Dietitian following. Recommendations: 1. Pt is feeding w/assist 2. Rec 2000ADA pureed diet 3. Send Suplena supplement BID 4. Dietitian following Dietitian to Monitor: Lab values, Electrolytes, Renal labs, Glucose level, Supplement acceptance, Intake & Output, Diet tolerance, Weight change, PO Intake , Diet advancement, Wound/skin status, Medical course
[2018-09-03] MEDS ORDERED: ASP: Other exception documentation: ( ) OTHER PRN (12:32)
[2018-09-03] MEDS: Meropenem Inj 500 MG in Sodium Chlor 0.9% Inj 100 ML IV.SIG SCH (14:04)
--- NOTE | 2018-09-03 16:47 | P.PN ---
Subjective Interval history: Follow up right foot wound. Patient is resting in bed. He is alert but not able to communicate well. No fever or chills. Patient remains hemodynamically stable. Physical Exam Vital signs: Vital Signs 09/02/18 20:00 09/02/18 20:07 09/03/18 00:00 Temperature 98.6 F 97.3 F L Pulse Rate 90 103 H 105 H Respiratory Rate 19 16 19 Blood Pressure 102/51 L 121/57 L Pulse Oximetry 95 93 L 09/03/18 07:31 09/03/18 08:00 09/03/18 12:00 Temperature 98.8 F 98.2 F Pulse Rate 105 H 87 63 Respiratory Rate 20 18 17 Blood Pressure 145/80 H 126/53 L Pulse Oximetry 97 95 Intake & Output 09/02/18 09/03/18 09/03/18 18:59 06:59 18:59 Intake Total 100 / 100 200 / 200 150 / 150 Output Total 400 / 400 Balance 100 / 100 -200 / -200 150 / 150 Weight 141.3 kg Intake: IV 100 / 100 100 / 100 150 / 150 Merrem Inj 500 MG In NS Inj 100 100 / 100 ML @ 200 mls/hr IV.SIG Q12H SHAHEED Rx#:[id number] Zosyn 2.25 GM Premix 50 ML @ 100 / 100 100 / 100 50 / 50 100 mls/hr IV.SIG Q6H SHAHEED Rx#: [id number] Other 100 / 100 Output: Urine 400 / 400 Other: Other Intake Source Saline Solution # Voids 3 Narrative: GENERAL: Well-nourished obese white male in no acute distress, sleeping. Awakens to voice. Tracks with eyes. Answers yes and no questions. SKIN: Warm and dry. HEAD: Atraumatic. Normocephalic. EYES: Pupils equal and round. No scleral icterus. No injection or drainage. ENT: No nasal bleeding or discharge. Mucous membranes pink and moist. NECK: Trachea midline. No JVD. CARDIOVASCULAR: Regular rate and rhythm. RESPIRATORY: No accessory muscle use. Diminished breath sounds bases bilaterally. GASTROINTESTINAL: Abdomen soft, obese, non-tender, nondistended. Hepatic and splenic margins not palpable. Normoactive bowel sounds MUSCULOSKELETAL: Extremities without clubbing, cyanosis. NEUROLOGICAL: Awakens to voice. Answered yes and no questions. Unable to perform a thorough neurological exam RIGHT FOOT: Right foot laterally with stable eschar under 4th/5th metatarsal area. Not boggy, no purulence. No erythematous margins. Stable, not acutely infected appearance clinically. Right heel laterally with stable eschar, not boggy. Mild erythema to peripheral tissue, but could be due to pressure on the skin/pre-ulcerative tissue, as it is not warm/swollen to the tissue. - Urinary Catheter Management Indwelling Urethral Catheter Cath placed during this visit: yes, but has since been removed by the nurse Reason for continuing: Decision to DC catheter Removal date: 09/01/18 Removal time: 04:30 Results - Labs CBC & Chem 7: 09/03/18 06:51 08/31/18 16:20 Laboratory Results - last 24 hr 08/31/18 09/02/18 09/02/18 16:25 17:01 22:29 CBC w Diff WBC RBC Hgb Hct MCV MCH MCHC RDW Plt Count MPV Neut % (Auto) Lymph % (Auto) [place] % (Auto) Eos % (Auto) Baso % (Auto) Neut # (Auto) Lymph # (Auto) [place] # (Auto) Eos # (Auto) Baso # (Auto) WBC Differential Differential Comment POC Glucose 376 H 432 H Ur Collection Type Cath Urine Color Yellow Urine Clarity Cloudy H Urine pH 5.5 Ur Specific [place] Greater/equal 1.030 Urine Protein 100 H Urine Glucose (UA) 100 H Urine Ketones 15 H Urine Occult Blood Moderate H Urine Nitrate Positive H Urine Bilirubin Negative Urine Urobilinogen 0.2 Ur Leukocyte Esterase Moderate H Urine RBC 15-50 H Urine WBC 51-189 H Ur Squamous Epith Cells 6-10 H Ur Renal Epithelial Cell 1-5 H Urine Bacteria Many H Urine Yeast Many H Micro UA Comment Cath-culture ind Ur Microscopic Review Microscopic reviewed Urine Culture Comments Cath-cult indicated 09/03/18 09/03/18 09/03/18 06:51 08:09 11:32 CBC w Diff Auto diff final WBC 8.4 RBC 3.44 L Hgb 10.0 L Hct 30.8 L MCV 89.4 MCH 29.2 MCHC 32.6 RDW 20.5 H Plt Count 260 MPV 9.6 Neut % (Auto) 53.6 Lymph % (Auto) 35.0 [place] % (Auto) 7.8 Eos % (Auto) 2.6 Baso % (Auto) 1.0 Neut # (Auto) 4.5 Lymph # (Auto) 2.9 [place] # (Auto) 0.7 Eos # (Auto) 0.2 Baso # (Auto) 0.1 WBC Differential . Differential Comment . POC Glucose 407 H 390 H Ur Collection Type Urine Color Urine Clarity Urine pH Ur Specific [place] Urine Protein Urine Glucose (UA) Urine Ketones Urine Occult Blood Urine Nitrate Urine Bilirubin Urine Urobilinogen Ur Leukocyte Esterase Urine RBC Urine WBC Ur Squamous Epith Cells Ur Renal Epithelial Cell Urine Bacteria Urine Yeast Micro UA Comment Ur Microscopic Review Urine Culture Comments Microbiology 08/31/18 16:25 Catheterized Urine Urine Culture - Final Citrobacter species Multidrug Resistant Rebeka glabrata 09/01/18 19:30 Wound - Foot Gram Stain - Final 09/01/18 19:30 Wound - Foot Wound Culture - Preliminary Yeast - ID to follow 08/31/18 16:35 Blood - Peripheral Aerobic Blood Culture - Preliminary No growth in 3 days 08/31/18 16:35 Blood - Peripheral Anaerobic Blood Culture - Preliminary No growth in 3 days 08/31/18 16:20 Blood - Peripheral Aerobic Blood Culture - Preliminary No growth in 3 days 08/31/18 16:20 Blood - Peripheral Anaerobic Blood Culture - Preliminary No growth in 3 days Assessment and Plan - Plan This is a 73-year-old white male with a history of hypertension, hyperlipidemia , diabetes mellitus type 2, 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 Encephalopathy, likely due to underlying infection -Patient presented with urinary tract infection along with a chronic osteomyelitis with infected chronic right foot and heel wound. -Continue monitor mental status with neurological checks. Awakens to voice. Answers yes and no questions. 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 -Speech therapy recommending pured diet with honey thickened liquids. Continue to monitor for any aspiration. -Supportive care. Chronic osteomyelitis Right foot and heel wound, no acute infection per podiatry -Patient was placed on IV cefepime, this has since been DCd. -Infectious disease has seen patient, appreciate input and recommendations. Per ID, continue Meropenem and Daptomycin. -Wound cultures shows Yeast growth. -Blood cultures negative to date. Follow. -Podiatry has signed off - stated that there is no acute foot infection. If acute infection develops, pt may need BKA. -Wound care nurse consulted. -Supportive care. Polymicrobial Urinary tract infection -Could be colonization. -Continue Abx per ID recs. Chronic kidney disease stage IV -Monitor on antibiotics avoid nephrotoxins. -Monitor on diuretics. Hypertension history -Blood pressure currently controlled without any antihypertensives. Continue to monitor. Diabetes mellitus type 2 history -Will continue to monitor blood sugars with sliding scale insulin coverage as needed. History of diastolic heart failure -Currently not in any exacerbation, will monitor, restart Lasix. Morbid obesity with BMI greater than 40 -Will still continue to monitor patient's nutritional status History of CVA -Continue aspirin DVT prophylaxis: Heparin Code Status: DNR. Poor Prognosis. Hospice revoked per patient's sister request.
[2018-09-03] MEDS: DAPTOMYCIN IV.SIG SCH (23:12)
[2018-09-03] MEDS: SODIUM CHLOR 0.9% IV.SIG SCH (23:12)
[2018-09-04] MEDS: Meropenem Inj 500 MG in Sodium Chlor 0.9% Inj 100 ML IV.SIG SCH ×2 (03:02→13:47)
[2018-09-04] MEDS: Insulin NovoLOG Aspart Correctional Sugar Inj SQ SCH ×4 (08:46→21:06)
[2018-09-04] MEDS: Aspirin 325 MG Tablet PO SCH (08:48)
--- NOTE | 2018-09-04 22:01 | P.PN ---
Subjective Interval history: Follow up right foot wound. Patient is resting in bed. Afebrile. Physical Exam Vital signs: Vital Signs 09/04/18 00:00 09/04/18 08:00 09/04/18 12:00 Temperature 98.6 F 98.9 F 98.6 F Pulse Rate 102 H 124 H 100 H Respiratory Rate 20 23 20 Blood Pressure 119/66 132/65 127/68 Pulse Oximetry 95 96 96 09/04/18 15:16 09/04/18 16:00 09/04/18 21:00 Temperature 98.2 F 98.3 F Pulse Rate 99 H 87 88 Respiratory Rate 18 21 20 Blood Pressure 136/75 93/63 L Pulse Oximetry 96 98 Intake & Output 09/04/18 09/04/18 09/05/18 06:59 18:59 06:59 Intake Total 200 / 200 580 / 580 Output Total 60 / 60 175 / 175 Balance 140 / 140 405 / 405 Weight 141.4 kg Intake: IV 200 / 200 100 / 100 Cubicin Inj 850 MG In NS Inj 100 / 100 100 ML @ 200 mls/hr IV.SIG Q48H SHAHEED Rx#:[id number] Merrem Inj 500 MG In NS Inj 100 100 / 100 100 / 100 ML @ 200 mls/hr IV.SIG Q12H SHAHEED Rx#:[id number] Oral 0 / 0 480 / 480 Output: Urine 60 / 60 175 / 175 Other: # Voids 2 - Urinary Catheter Management Indwelling Urethral Catheter Cath placed during this visit: yes, but has since been removed by the nurse Reason for continuing: Decision to DC catheter Removal date: 09/01/18 Removal time: 04:30 Results - Labs CBC & Chem 7: 09/03/18 06:51 08/31/18 16:20 Laboratory Results - last 24 hr 09/04/18 09/04/18 09/04/18 08:15 11:49 17:27 POC Glucose 416 H 411 H 387 H 09/04/18 21:03 POC Glucose 274 H Microbiology 09/01/18 19:30 Wound - Foot Gram Stain - Final 09/01/18 19:30 Wound - Foot Wound Culture - Preliminary Rebeka parapsilosis 08/31/18 16:35 Blood - Peripheral Aerobic Blood Culture - Preliminary No growth in 4 days 08/31/18 16:35 Blood - Peripheral Anaerobic Blood Culture - Preliminary No growth in 4 days 08/31/18 16:20 Blood - Peripheral Aerobic Blood Culture - Preliminary No growth in 4 days 08/31/18 16:20 Blood - Peripheral Anaerobic Blood Culture - Preliminary No growth in 4 days Assessment and Plan - Plan This is a 73-year-old white male with a history of hypertension, hyperlipidemia , diabetes mellitus type 2, 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 Encephalopathy, likely due to underlying infection -Patient presented with urinary tract infection along with a chronic osteomyelitis with infected chronic right foot and heel wound. -Continue monitor mental status with neurological checks. Awakens to voice. Answers yes and no questions. 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 -Speech therapy recommending pured diet with honey thickened liquids. Continue to monitor for any aspiration. -Supportive care. Chronic osteomyelitis Right foot and heel wound, no acute infection per podiatry -Patient was placed on IV cefepime, this has since been DCd. -Infectious disease has seen patient, appreciate input and recommendations. Per ID, continue Meropenem and Daptomycin. -Wound cultures shows Yeast growth. -Blood cultures negative to date. Follow. -Podiatry has signed off - stated that there is no acute foot infection. If acute infection develops, pt may need BKA. -Wound care nurse consulted. -Supportive care. Polymicrobial Urinary tract infection -Could be colonization. -Continue Abx per ID recs - continue Meropenem and Daptomycin. Chronic kidney disease stage IV -Monitor on antibiotics avoid nephrotoxins. -Monitor on diuretics. Hypertension history -Blood pressure currently controlled without any antihypertensives. Continue to monitor. Diabetes mellitus type 2 history -Will continue to monitor blood sugars with sliding scale insulin coverage as needed. History of diastolic heart failure -Currently not in any exacerbation, will monitor, restart Lasix. Morbid obesity with BMI greater than 40 -Will still continue to monitor patient's nutritional status History of CVA -Continue aspirin DVT prophylaxis: Heparin Code Status: DNR. Poor Prognosis. Hospice revoked per patient's sister request. 09/04/2018: No acute changes in management.
[2018-09-05] MEDS: Meropenem Inj 500 MG in Sodium Chlor 0.9% Inj 100 ML IV.SIG SCH ×2 (01:17→13:04)
[2018-09-05] MEDS: Aspirin 325 MG Tablet PO SCH (09:07)
[2018-09-05] MEDS: Insulin NovoLOG Aspart Correctional Sugar Inj SQ SCH ×4 (09:07→22:00)
--- NOTE | 2018-09-05 16:53 | P.PN ---
Subjective Interval history: Follow up for foot infection, severe deconditioning, polymicrobial UTI, DM. Patient remains largely unresponsive. Afebrile. Physical Exam Vital signs: Vital Signs 09/04/18 21:00 09/05/18 00:00 09/05/18 08:00 Temperature 98.3 F 98.0 F 98.7 F Pulse Rate 88 102 H 118 H Respiratory Rate 20 20 23 Blood Pressure 93/63 L 136/60 111/61 Pulse Oximetry 98 97 96 09/05/18 08:17 09/05/18 11:32 09/05/18 12:00 Temperature 98.7 F Pulse Rate 80 95 H 97 H Respiratory Rate 19 18 20 Blood Pressure 126/55 L Pulse Oximetry 97 09/05/18 15:22 Temperature Pulse Rate 99 H Respiratory Rate 19 Blood Pressure Pulse Oximetry Intake & Output 09/04/18 09/05/18 09/05/18 18:59 06:59 18:59 Intake Total 580 / 580 580 / 580 340 / 340 Output Total 175 / 175 200 / 200 Balance 405 / 405 580 / 580 140 / 140 Weight 142 kg Intake: IV 100 / 100 100 / 100 100 / 100 Merrem Inj 500 MG In NS Inj 100 100 / 100 100 / 100 100 / 100 ML @ 200 mls/hr IV.SIG Q12H SHAHEED Rx#:[id number] Oral 480 / 480 480 / 480 240 / 240 Output: Urine 175 / 175 200 / 200 Narrative: GENERAL: Well-nourished obese white male in no acute distress, sleeping. Awakens to voice. Tracks with eyes. Answers yes and no questions. SKIN: Warm and dry. HEAD: Atraumatic. Normocephalic. EYES: Pupils equal and round. No scleral icterus. No injection or drainage. ENT: No nasal bleeding or discharge. Mucous membranes pink and moist. NECK: Trachea midline. No JVD. CARDIOVASCULAR: Regular rate and rhythm. RESPIRATORY: No accessory muscle use. Diminished breath sounds bases bilaterally. GASTROINTESTINAL: Abdomen soft, obese, non-tender, nondistended. Hepatic and splenic margins not palpable. Normoactive bowel sounds MUSCULOSKELETAL: Extremities without clubbing, cyanosis. NEUROLOGICAL: Awakens to voice. Answered yes and no questions. Unable to perform a thorough neurological exam RIGHT FOOT: Right foot laterally with stable eschar under 4th/5th metatarsal area. Not boggy, no purulence. No erythematous margins. Stable, not acutely infected appearance clinically. Right heel laterally with stable eschar, not boggy. Mild erythema to peripheral tissue, but could be due to pressure on the skin/pre-ulcerative tissue, as it is not warm/swollen to the tissue. - Urinary Catheter Management Indwelling Urethral Catheter Cath placed during this visit: yes, but has since been removed by the nurse Reason for continuing: Decision to DC catheter Removal date: 09/01/18 Removal time: 04:30 Results - Labs CBC & Chem 7: 09/07/18 11:50 09/10/18 07:40 Laboratory Results - last 24 hr 09/04/18 09/04/18 09/05/18 17:27 21:03 07:40 POC Glucose 387 H 274 H 356 H 09/05/18 09/05/18 11:05 16:33 POC Glucose 372 H 310 H Microbiology 08/31/18 16:35 Blood - Peripheral Aerobic Blood Culture - Final No growth in 5 days 08/31/18 16:35 Blood - Peripheral Anaerobic Blood Culture - Final No growth in 5 days 08/31/18 16:20 Blood - Peripheral Aerobic Blood Culture - Final No growth in 5 days 08/31/18 16:20 Blood - Peripheral Anaerobic Blood Culture - Final No growth in 5 days 09/01/18 19:30 Wound - Foot Gram Stain - Final 09/01/18 19:30 Wound - Foot Wound Culture - Preliminary Rebeka parapsilosis Assessment and Plan - Plan This is a 73-year-old white male with a history of hypertension, hyperlipidemia , diabetes mellitus type 2, 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 Encephalopathy, likely due to underlying infection -Patient presented with urinary tract infection along with a chronic osteomyelitis with infected chronic right foot and heel wound. -Continue monitor mental status with neurological checks. Awakens to voice. Answers yes and no questions. 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 -Speech therapy recommending pured diet with honey thickened liquids. Continue to monitor for any aspiration. -Supportive care. Chronic osteomyelitis Right foot and heel wound, no acute infection per podiatry -Patient was placed on IV cefepime, this has since been DCd. -Infectious disease has seen patient, appreciate input and recommendations. Per ID, continue Meropenem and Daptomycin. -Wound cultures shows Yeast growth. -Blood cultures negative to date. Follow. -Podiatry has signed off - stated that there is no acute foot infection. If acute infection develops, pt may need BKA. -Wound care nurse consulted. -Supportive care. Polymicrobial Urinary tract infection -Could be colonization. -Continue Abx per ID recs - continue Meropenem and Daptomycin. Chronic kidney disease stage IV -Monitor on antibiotics avoid nephrotoxins. -Monitor on diuretics. Hypertension history -Blood pressure currently controlled without any antihypertensives. Continue to monitor. Diabetes mellitus type 2 history -Will continue to monitor blood sugars with sliding scale insulin coverage as needed. History of diastolic heart failure -Currently not in any exacerbation, will monitor, restart Lasix. Morbid obesity with BMI greater than 40 -Will still continue to monitor patient's nutritional status History of CVA -Continue aspirin DVT prophylaxis: Heparin Code Status: DNR. Poor Prognosis. Hospice revoked per patient's sister request. 09/05/2018: No acute changes in management.
[2018-09-05] MEDS: SODIUM CHLOR 0.9% IV.SIG SCH (22:01)
[2018-09-05] MEDS: DAPTOMYCIN IV.SIG SCH (22:01)
[2018-09-06] MEDS: Meropenem Inj 500 MG in Sodium Chlor 0.9% Inj 100 ML IV.SIG SCH ×2 (01:11→15:03)
[2018-09-06] MEDS: Aspirin 325 MG Tablet PO SCH (09:09)
[2018-09-06] MEDS: Insulin NovoLOG Aspart Correctional Sugar Inj SQ SCH ×4 (09:09→21:35)
--- NOTE | 2018-09-06 09:28 | P.PN ---
Subjective Interval history: Mr. Meléndez appears to be more alert and coherent today. No fever, chills. Denies any acute concerns. Physical Exam Vital signs: Vital Signs 09/05/18 11:32 09/05/18 12:00 09/05/18 15:22 Temperature 98.7 F Pulse Rate 95 H 97 H 99 H Respiratory Rate 18 20 19 Blood Pressure 126/55 L Pulse Oximetry 97 09/05/18 16:00 09/05/18 20:00 09/06/18 00:00 Temperature 98.1 F 98.4 F 97.4 F L Pulse Rate 110 H 93 H 98 H Respiratory Rate 22 18 18 Blood Pressure 110/60 123/94 H 149/62 H Pulse Oximetry 96 97 97 09/06/18 08:00 Temperature 97.7 F Pulse Rate 93 H Respiratory Rate 18 Blood Pressure 142/62 H Pulse Oximetry 95 Intake & Output 09/05/18 09/06/18 09/06/18 18:59 06:59 18:59 Intake Total 700 / 700 800 / 800 Output Total 500 / 500 Balance 200 / 200 800 / 800 Weight 138.4 kg Intake: IV 100 / 100 200 / 200 Cubicin Inj 850 MG In NS Inj 100 / 100 100 ML @ 200 mls/hr IV.SIG Q48H SHAHEED Rx#:[id number] Merrem Inj 500 MG In NS Inj 100 100 / 100 100 / 100 ML @ 200 mls/hr IV.SIG Q12H SHAHEED Rx#:[id number] Oral 600 / 600 600 / 600 Output: Urine 500 / 500 Other: Date of Last Bowel Movement 09/05/18 - Urinary Catheter Management Indwelling Urethral Catheter Cath placed during this visit: yes, but has since been removed by the nurse Reason for continuing: Decision to DC catheter Removal date: 09/01/18 Removal time: 04:30 Results - Labs CBC & Chem 7: 09/07/18 11:50 09/10/18 07:40 Laboratory Results - last 24 hr 09/05/18 09/05/18 09/05/18 11:05 16:33 21:42 POC Glucose 372 H 310 H 274 H 09/06/18 07:50 POC Glucose 397 H Microbiology 08/31/18 16:35 Blood - Peripheral Aerobic Blood Culture - Final No growth in 5 days 08/31/18 16:35 Blood - Peripheral Anaerobic Blood Culture - Final No growth in 5 days 08/31/18 16:20 Blood - Peripheral Aerobic Blood Culture - Final No growth in 5 days 08/31/18 16:20 Blood - Peripheral Anaerobic Blood Culture - Final No growth in 5 days 09/01/18 19:30 Wound - Foot Gram Stain - Final 09/01/18 19:30 Wound - Foot Wound Culture - Preliminary Rebeka parapsilosis Assessment and Plan - Plan This is a 73-year-old white male with a history of hypertension, hyperlipidemia , diabetes mellitus type 2, 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 Encephalopathy, likely due to underlying infection -Patient presented with urinary tract infection along with a chronic osteomyelitis with infected chronic right foot and heel wound. -Continue monitor mental status with neurological checks. Awakens to voice. Answers yes and no questions. 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 -Speech therapy recommending pured diet with honey thickened liquids. Continue to monitor for any aspiration. -Supportive care. Chronic osteomyelitis Right foot and heel wound, no acute infection per podiatry -Patient was placed on IV cefepime, this has since been DCd. -Infectious disease has seen patient, appreciate input and recommendations. Per ID, continue Meropenem and Daptomycin. -Wound cultures shows Yeast growth. -Blood cultures negative to date. Follow. -Podiatry has signed off - stated that there is no acute foot infection. If acute infection develops, pt may need BKA. -Wound care nurse consulted. -Supportive care. Polymicrobial Urinary tract infection -Could be colonization. -Continue Abx per ID recs - continue Meropenem and Daptomycin. Chronic kidney disease stage IV -Monitor on antibiotics avoid nephrotoxins. -Monitor on diuretics. Hypertension history -Blood pressure currently controlled without any antihypertensives. Continue to monitor. Diabetes mellitus type 2 history -Will continue to monitor blood sugars with sliding scale insulin coverage as needed. -Will start long acting insulin for better control. History of diastolic heart failure -Currently not in any exacerbation, will monitor, restart Lasix. Morbid obesity with BMI greater than 40 -Will still continue to monitor patient's nutritional status History of CVA -Continue aspirin DVT prophylaxis: Heparin Code Status: DNR. Poor Prognosis. Hospice revoked per patient's sister request. 09/06/2018: I discussed with patient's sister. She states that her brother wants to live. And she feels that hospice was not providing proper care which lead her to withdraw from hospice.
--- NOTE | 2018-09-06 11:05 | P.PNID ---
Subjective Remarks: Awake, more responsive No fevers Antibiotics: Vancomycin and Meropenem Lines: Peripheral IV line Past Medical History: Depression (Chronic) Diabetes (Chronic) Diabetes (Chronic) GERD (gastroesophageal reflux disease) (Chronic) HTN (hypertension) (Chronic) High cholesterol (Chronic) Neuropathy (Chronic) Obesity (Chronic) Allergies/Adverse Reactions: Allergies No Known Allergies Allergy (Verified 08/31/18 16:18) Objective Vital Signs 09/05/18 11:32 09/05/18 12:00 09/05/18 15:22 Temperature 98.7 F Pulse Rate 95 H 97 H 99 H Respiratory Rate 18 20 19 Blood Pressure 126/55 L Pulse Oximetry 97 09/05/18 16:00 09/05/18 20:00 09/06/18 00:00 Temperature 98.1 F 98.4 F 97.4 F L Pulse Rate 110 H 93 H 98 H Respiratory Rate 22 18 18 Blood Pressure 110/60 123/94 H 149/62 H Pulse Oximetry 96 97 97 09/06/18 08:00 Temperature 97.7 F Pulse Rate 93 H Respiratory Rate 18 Blood Pressure 142/62 H Pulse Oximetry 95 Intake & Output 09/05/18 09/06/18 09/06/18 18:59 06:59 18:59 Intake Total 700 / 700 800 / 800 Output Total 500 / 500 Balance 200 / 200 800 / 800 Weight 138.4 kg Intake: IV 100 / 100 200 / 200 Cubicin Inj 850 MG In NS Inj 100 / 100 100 ML @ 200 mls/hr IV.SIG Q48H SHAHEED Rx#:[id number] Merrem Inj 500 MG In NS Inj 100 100 / 100 100 / 100 ML @ 200 mls/hr IV.SIG Q12H SHAHEED Rx#:[id number] Oral 600 / 600 600 / 600 Output: Urine 500 / 500 Other: Date of Last Bowel Movement 09/05/18 08/31/18 16:35 Blood - Peripheral Aerobic Blood Culture - Final No growth in 5 days 08/31/18 16:35 Blood - Peripheral Anaerobic Blood Culture - Final No growth in 5 days 08/31/18 16:20 Blood - Peripheral Aerobic Blood Culture - Final No growth in 5 days 08/31/18 16:20 Blood - Peripheral Anaerobic Blood Culture - Final No growth in 5 days 09/01/18 19:30 Wound - Foot Gram Stain - Final 09/01/18 19:30 Wound - Foot Wound Culture - Preliminary Rebeka parapsilosis 08/31/18 16:25 Catheterized Urine Urine Culture - Final Citrobacter species Multidrug Resistant Rebeka glabrata Lab - Chemistry Results 09/04/18 09/04/18 09/04/18 11:49 17:27 21:03 POC Glucose 411 H 387 H 274 H 09/05/18 09/05/18 09/05/18 07:40 11:05 16:33 POC Glucose 356 H 372 H 310 H 09/05/18 09/06/18 21:42 07:50 POC Glucose 274 H 397 H Imaging: ITS Impressions Chest X-Ray 08/31/18 16:19 CONCLUSION: There continues to be some scattered residual interstitial infiltrates bilaterally, right greater than left. However, the overall findings appear to be improved compared to the prior examination. The heart size remains enlarged but stable. Physical Exam: Alert, non verbal Pallor No icterus Chest : BS shahab decreased Heart : S 1 S2 normal Abdomen: Soft Non tender Bowel sounds present Significant wasting of muscles. R foot with clean dry dressing Assessment and Plan (1) Osteomyelitis of ankle and foot Status: Acute Code(s): M86.9 - Osteomyelitis, unspecified (2) Chronic right arterial ischemic stroke, MCA (middle cerebral artery) Status: Acute Code(s): I69.30 - Unspecified sequelae of cerebral infarction (3) Acute kidney injury Status: Acute Code(s): N17.9 - Acute kidney failure, unspecified (4) UTI (urinary tract infection) Status: Acute Code(s): N39.0 - Urinary tract infection, site not specified (5) Diabetes Status: Acute Code(s): E11.9 - Type 2 diabetes mellitus without complications (6) Hypertension Status: Acute Code(s): I10 - Essential (primary) hypertension - Plan Re check UAC Follow cultures Noted Podiatry recommendations_ Patient does have necrotic wounds Continue IV Daptomycin Continue Meropenem 500 mg IV q 12hrs ( MDRO Citrobacter)
[2018-09-06 17:58] LABS: Bilirubin,Urine Negative (Negative); Color,Urine Yellow (Yellw/Straw); Glucose,Urine (UA) Negative (Negative); Leukocyte Esterase,Urine Moderate (Negative); Nitrite,Urine Negative (Negative); Specific Gravity,Urine 1.015 (1.002-1.035); Urobilinogen,Urine 0.2 mg/dL (Less than 2)
[2018-09-06 18:02] LABS: Clarity,Urine Cloudy (Clear)
[2018-09-06 18:07] LABS: Bacteria,Urine Few /hpf; WBC,Urine 21-50 /hpf (0-5)
[2018-09-06] MEDS ORDERED: Insulin Detemir Inj 1,000 UNIT/10 ML Vial SQ SCH (21:00)
[2018-09-07] MEDS: Meropenem Inj 500 MG in Sodium Chlor 0.9% Inj 100 ML IV.SIG SCH ×2 (03:19→13:12)
[2018-09-07] MEDS: Insulin NovoLOG Aspart Correctional Sugar Inj SQ SCH ×4 (08:42→22:14)
[2018-09-07] MEDS: Aspirin 325 MG Tablet PO SCH (08:42)
[2018-09-07 12:11] LABS: Baso # (Auto) 0.2 th/mm3 (0.0-0.2); Eos # (Auto) 0.8 th/mm3 (0.0-0.4); Eos % (Auto) 9.5 % (0.0-4.0); Hematocrit 32.5 % (39.0-51.0); Hemoglobin 10.4 gm/dL (13.0-17.0); Lymph # (Auto) 3.5 th/mm3 (1.0-4.8); Lymph % (Auto) 39.8 % (9.0-44.0); Mean Corpuscular HGB Conc 31.9 % (32.0-36.0); Mean Corpuscular Hemoglobin 29.5 pg (27.0-34.0); Mean Corpuscular Volume 92.4 fL (80.0-100.0); Mean Platelet Volume 10.1 fL (7.0-11.0); Mono # (Auto) 0.4 th/mm3 (0.0-0.9); Mono % (Auto) 4.6 % (0.0-8.0); Neut # (Auto) 3.8 th/mm3 (1.8-7.7); Neut % (Auto) 44.1 % (16.0-70.0); Platelet Count 174 th/mm3 (150-450); Red Blood Count 3.51 mil/mm3 (4.50-5.90); Red Cell Distribution Width 19.5 % (11.6-17.2); White Blood Count 8.8 th/mm3 (4.0-11.0)
[2018-09-07 12:24] LABS: Potassium 3.9 meq/L (3.5-5.1)
[2018-09-07 12:27] LABS: Calcium 8.6 mg/dL (8.5-10.1); Carbon Dioxide 32.7 meq/L (21.0-32.0)
--- NOTE | 2018-09-07 13:46 | P.PNID ---
Subjective Remarks: 73-year-old white male with a past medical history of morbid obesity, diabetes mellitus type 2, hyperlipidemia, hypertension, chronic kidney disease stage IV was sent from [facility] by his sister revoking hospice after finding him to be more confused and having poor appetite and oral intake. Apparently, she stated that she came to visit him to weeks ago in which he was conversant with her and told her that he want to live. He was placed under hospice after recent prolonged hospitalization in the intensive care unit in which patient required intubation for both a healthcare acquired pneumonia and chronic infection of right foot wound. Notes reviewed On Abx for UTI, does not have maldonado cath Also on Abx for his R foot - podiatry notes revealed no evidence of active infection, has stable eschar Temps ok he is awake and answering my questions Not SOB No cough No abdominal pain No N/V Antibiotics: Cubicin Meropenem Lines: Peripheral IV line Past Medical History: Depression (Chronic) Diabetes (Chronic) Diabetes (Chronic) GERD (gastroesophageal reflux disease) (Chronic) HTN (hypertension) (Chronic) High cholesterol (Chronic) Neuropathy (Chronic) Obesity (Chronic) Allergies/Adverse Reactions: Allergies No Known Allergies Allergy (Verified 08/31/18 16:18) Objective Vital Signs 09/06/18 16:00 09/06/18 20:00 09/07/18 00:00 Temperature 97.4 F L 97.4 F L 97.1 F L Pulse Rate 100 H 88 85 Respiratory Rate 18 18 18 Blood Pressure 137/69 127/57 L 125/84 Pulse Oximetry 95 91 L 98 09/07/18 08:00 09/07/18 09:12 Temperature Pulse Rate 80 Respiratory Rate 20 18 Blood Pressure 143/56 H Pulse Oximetry 96 Intake & Output 09/06/18 09/07/18 09/07/18 18:59 06:59 18:59 Intake Total 100 / 100 2100 / 2100 120 / 120 Output Total 400 / 400 100 / 100 Balance 100 / 100 1700 / 1700 20 / 20 Weight 138.4 kg Intake: IV 100 / 100 100 / 100 Merrem Inj 500 MG In NS Inj 100 100 / 100 100 / 100 ML @ 200 mls/hr IV.SIG Q12H SHAHEED Rx#:[id number] Oral 1999 / 1999 120 / 120 Output: Urine 400 / 400 100 / 100 Other: # Voids 550 Date of Last Bowel Movement 09/07/18 # Bowel Movements 0 09/06/18 17:45 Catheterized Urine Urine Culture - Pending 08/31/18 16:35 Blood - Peripheral Aerobic Blood Culture - Final No growth in 5 days 08/31/18 16:35 Blood - Peripheral Anaerobic Blood Culture - Final No growth in 5 days 08/31/18 16:20 Blood - Peripheral Aerobic Blood Culture - Final No growth in 5 days 08/31/18 16:20 Blood - Peripheral Anaerobic Blood Culture - Final No growth in 5 days 09/01/18 19:30 Wound - Foot Gram Stain - Final 09/01/18 19:30 Wound - Foot Wound Culture - Preliminary Rebeka parapsilosis Lab - Hematology Results 09/07/18 11:50 CBC w Diff Auto diff final WBC 8.8 RBC 3.51 L Hgb 10.4 L Hct 32.5 L MCV 92.4 MCH 29.5 MCHC 31.9 L RDW 19.5 H Plt Count 174 D MPV 10.1 Neut % (Auto) 44.1 Lymph % (Auto) 39.8 [place] % (Auto) 4.6 Eos % (Auto) 9.5 H Baso % (Auto) 2.0 Neut # (Auto) 3.8 Lymph # (Auto) 3.5 [place] # (Auto) 0.4 Eos # (Auto) 0.8 H Baso # (Auto) 0.2 WBC Differential . Differential Comment . Lab - Chemistry Results 09/05/18 09/05/18 09/06/18 16:33 21:42 07:50 Sodium Potassium Chloride Carbon Dioxide Anion Gap BUN Creatinine Estimated GFR POC Glucose 310 H 274 H 397 H Random Glucose Calcium 09/06/18 09/06/18 09/06/18 12:21 17:15 21:04 Sodium Potassium Chloride Carbon Dioxide Anion Gap BUN Creatinine Estimated GFR POC Glucose 358 H 231 H 294 H Random Glucose Calcium 09/07/18 09/07/18 09/07/18 07:50 11:50 12:18 Sodium 152 H Potassium 3.9 Chloride 112 H Carbon Dioxide 32.7 H Anion Gap 7 BUN 58 H Creatinine 2.60 H Estimated GFR 24 L POC Glucose 362 H 322 H Random Glucose 300 H Calcium 8.6 Imaging: ITS Impressions Chest X-Ray 08/31/18 16:19 CONCLUSION: There continues to be some scattered residual interstitial infiltrates bilaterally, right greater than left. However, the overall findings appear to be improved compared to the prior examination. The heart size remains enlarged but stable. Physical Exam: GENERAL: awake, interacting, not in distress. SKIN: Cool and dry. No generalized rash. EYES: [place] conjunctiva. No petechia or hemorrhage. Pupils equal, round and reactive to light. Extraocular movements full and intact. No scleral icterus. No injection or drainage. EARS, NOSE AND THROAT: Nose without bleeding or purulent nasal discharge. Mucous membranes pink and moist. No oral lesions noted. NECK: Trachea midline. Supple and not tender, no meningeal signs CARDIOVASCULAR: Regular rate and rhythm. No murmurs RESPIRATORY: Decreased BS at bases ABDOMEN: Soft, obese, non-tender, nondistended. Bowel sounds present and normoactive. EXTREMITIES: No clubbing, cyanosis, or edema. Has dry intact dressing to his R foot. No calf tenderness. NEUROLOGICAL: Awake and alert. PSYCHIATRIC: calm and cooperative. LINE: No evidence of infection Assessment and Plan (1) Osteomyelitis of ankle and foot Status: Acute Code(s): M86.9 - Osteomyelitis, unspecified (2) Chronic right arterial ischemic stroke, MCA (middle cerebral artery) Status: Acute Code(s): I69.30 - Unspecified sequelae of cerebral infarction (3) Acute kidney injury Status: Acute Code(s): N17.9 - Acute kidney failure, unspecified (4) UTI (urinary tract infection) Status: Acute Code(s): N39.0 - Urinary tract infection, site not specified (5) Diabetes Status: Acute Code(s): E11.9 - Type 2 diabetes mellitus without complications (6) Hypertension Status: Acute Code(s): I10 - Essential (primary) hypertension - Plan Impression UTI Chronic wound R foot Renal insufficiency ?Osteo R foot DM Encephalopathy, better Recs: Repeat BMP Continue Cubicin for MRSA and GPC covergae Follow new C/S - if ok, change Merem to INvanz Add Diflucan Monitor progress I will determine course of Abx oce work-up is completed
[2018-09-07 14:38] LABS: Potassium 3.7 meq/L (3.5-5.1)
[2018-09-07 14:40] LABS: Calcium 8.5 mg/dL (8.5-10.1)
[2018-09-07 14:41] LABS: Carbon Dioxide 32.6 meq/L (21.0-32.0)
[2018-09-07] MEDS ORDERED: Insulin Detemir Inj 1,000 UNIT/10 ML Vial SQ SCH (17:18)
--- NOTE | 2018-09-07 17:21 | P.PNIM ---
Subjective Interval history: Patient is laying down in bed. Currently not in any acute distress. He is responding to my questions appropriately however is slow to respond to questions. Physical Exam Vital signs: Vital Signs 09/06/18 20:00 09/07/18 00:00 09/07/18 08:00 Temperature 97.4 F L 97.1 F L Pulse Rate 88 85 80 Respiratory Rate 18 18 20 Blood Pressure 127/57 L 125/84 143/56 H Pulse Oximetry 91 L 98 96 09/07/18 09:12 09/07/18 12:00 Temperature 98.7 F Pulse Rate 111 H Respiratory Rate 18 20 Blood Pressure 125/58 L Pulse Oximetry 98 Intake & Output 09/06/18 09/07/18 09/07/18 18:59 06:59 18:59 Intake Total 100 / 100 2100 / 2100 460 / 460 Output Total 400 / 400 400 / 400 Balance 100 / 100 1700 / 1700 60 / 60 Weight 138.4 kg Intake: IV 100 / 100 100 / 100 100 / 100 Merrem Inj 500 MG In NS Inj 100 100 / 100 100 / 100 100 / 100 ML @ 200 mls/hr IV.SIG Q12H SHAHEED Rx#:[id number] Oral 1999 / 1999 360 / 360 Output: Urine 400 / 400 400 / 400 Other: # Voids 550 Date of Last Bowel Movement 09/07/18 # Bowel Movements 0 Narrative: General patient currently does not appear to be in any acute distress. HEENT extraocular movements are intact, poor dentition Cardiovascular S1-S2 audible Respiratory clear to auscultation bilaterally Abdomen soft, obese, nontender, normal bowel sounds Extremities right foot covered in bandage. Neuro patient can move all 4 extremities, sensation is intact bilaterally. Patient does not completely follow commands, full neurological examination is difficult to assess. - Urinary Catheter Management Indwelling Urethral Catheter Cath placed during this visit: yes, but has since been removed by the nurse Reason for continuing: Decision to DC catheter Removal date: 09/01/18 Removal time: 04:30 Results - Labs CBC & Chem 7: 09/07/18 11:50 09/07/18 14:21 Laboratory Results - last 24 hr 09/06/18 09/06/18 09/06/18 17:15 17:45 21:04 CBC w Diff WBC RBC Hgb Hct MCV MCH MCHC RDW Plt Count MPV Neut % (Auto) Lymph % (Auto) Gage % (Auto) Eos % (Auto) Baso % (Auto) Neut # (Auto) Lymph # (Auto) Gage # (Auto) Eos # (Auto) Baso # (Auto) WBC Differential Differential Comment Sodium Potassium Chloride Carbon Dioxide Anion Gap BUN Creatinine Estimated GFR POC Glucose 231 H 294 H Random Glucose Calcium Urine Color Yellow Urine Clarity Cloudy H Urine pH 6.0 Ur Specific [place] 1.015 Urine Protein 100 H Urine Glucose (UA) Negative Urine Ketones Negative Urine Occult Blood Moderate H Urine Nitrate Negative Urine Bilirubin Negative Urine Urobilinogen 0.2 Ur Leukocyte Esterase Moderate H Urine RBC 4-15 H Urine WBC 21-50 H Urine WBC Clumps Moderate H Urine Bacteria Few H Urine Yeast Many H Micro UA Comment Cath-culture ind Ur Microscopic Review Microscopic reviewed Urine Culture Comments Cath-cult indicated 09/07/18 09/07/18 09/07/18 07:50 11:50 11:50 CBC w Diff Auto diff final WBC 8.8 RBC 3.51 L Hgb 10.4 L Hct 32.5 L MCV 92.4 MCH 29.5 MCHC 31.9 L RDW 19.5 H Plt Count 174 D MPV 10.1 Neut % (Auto) 44.1 Lymph % (Auto) 39.8 Gage % (Auto) 4.6 Eos % (Auto) 9.5 H Baso % (Auto) 2.0 Neut # (Auto) 3.8 Lymph # (Auto) 3.5 Gage # (Auto) 0.4 Eos # (Auto) 0.8 H Baso # (Auto) 0.2 WBC Differential . Differential Comment . Sodium 152 H Potassium 3.9 Chloride 112 H Carbon Dioxide 32.7 H Anion Gap 7 BUN 58 H Creatinine 2.60 H Estimated GFR 24 L POC Glucose 362 H Random Glucose 300 H Calcium 8.6 Urine Color Urine Clarity Urine pH Ur Specific [place] Urine Protein Urine Glucose (UA) Urine Ketones Urine Occult Blood Urine Nitrate Urine Bilirubin Urine Urobilinogen Ur Leukocyte Esterase Urine RBC Urine WBC Urine WBC Clumps Urine Bacteria Urine Yeast Micro UA Comment Ur Microscopic Review Urine Culture Comments 09/07/18 09/07/18 12:18 14:21 CBC w Diff WBC RBC Hgb Hct MCV MCH MCHC RDW Plt Count MPV Neut % (Auto) Lymph % (Auto) Gage % (Auto) Eos % (Auto) Baso % (Auto) Neut # (Auto) Lymph # (Auto) Gage # (Auto) Eos # (Auto) Baso # (Auto) WBC Differential Differential Comment Sodium 151 H Potassium 3.7 Chloride 112 H Carbon Dioxide 32.6 H Anion Gap 6 BUN 58 H Creatinine 2.60 H Estimated GFR 24 L POC Glucose 322 H Random Glucose 356 H Calcium 8.5 Urine Color Urine Clarity Urine pH Ur Specific [place] Urine Protein Urine Glucose (UA) Urine Ketones Urine Occult Blood Urine Nitrate Urine Bilirubin Urine Urobilinogen Ur Leukocyte Esterase Urine RBC Urine WBC Urine WBC Clumps Urine Bacteria Urine Yeast Micro UA Comment Ur Microscopic Review Urine Culture Comments Microbiology 09/06/18 17:45 Catheterized Urine Urine Culture - Preliminary Yeast - ID to follow Assessment and Plan - Plan This patient is a 73-year-old male with a diagnosis of diabetes mellitus type 2, dyslipidemia, hypertension, chronic kidney disease stage IV. The patient was sent from [facility] after he was found to be confused and was having poor p.o. intake. He was admitted for a urinary tract infection as well as a right foot and heel ulceration. 1. Acute encephalopathy likely secondary to urinary tract infection Patient MRI of the brain done back in August 16 which showed no acute infarct but showed a remote left frontal convexity infarct. Patient has a urinary tract infection as well as a chronic right foot and heel wound. Podiatry was following however believes that the right foot is not infected Patient's acute encephalopathy is likely secondary to urinary tract infection. Infectious disease following, continue current IV antibiotics Catheterized urine from yesterday shows yeast, infectious disease started Diflucan today. On my examination today the patient is alert and oriented times 3, however he is slow to respond to questions. 2. Chronic kidney disease stage IV Avoid nephrotoxic agents Follow-up a.m. labs. 3. Diabetes mellitus type 2 Blood sugars running in the 300s. Levemir will be increased to 15 units subcu nightly. Continue low-dose insulin sliding scale 4. Hypertension Blood pressure currently under control. We will continue to monitor the patient 's blood pressure and start antihypertensives as needed. Heparin for DVT prophylaxis.
[2018-09-07] MEDS: Heparin - SQ 10,000 UNITS/ML Vial SQ SCH (22:13)
[2018-09-07] MEDS: DAPTOMYCIN IV.SIG SCH (22:14)
[2018-09-07] MEDS: SODIUM CHLOR 0.9% IV.SIG SCH (22:14)
[2018-09-08] MEDS: Meropenem Inj 500 MG in Sodium Chlor 0.9% Inj 100 ML IV.SIG SCH ×2 (03:14→13:43)
[2018-09-08 08:36] LABS: Potassium 3.6 meq/L (3.5-5.1)
[2018-09-08 08:39] LABS: Calcium 8.4 mg/dL (8.5-10.1); Carbon Dioxide 29.9 meq/L (21.0-32.0)
[2018-09-08 09:00] LABS: Magnesium 1.9 mg/dL (1.5-2.5)
[2018-09-08] MEDS: Insulin NovoLOG Aspart Correctional Sugar Inj SQ SCH ×4 (09:59→21:34)
[2018-09-08] MEDS: Aspirin 325 MG Tablet PO SCH (10:43)
[2018-09-08] MEDS: Heparin - SQ 10,000 UNITS/ML Vial SQ SCH ×2 (10:43→21:36)
--- NOTE | 2018-09-08 16:10 | P.PNIM ---
Subjective Interval history: Patient is laying down in bed. He does not have any specific complaints today. Physical Exam Vital signs: Vital Signs 09/07/18 20:00 09/08/18 00:00 09/08/18 08:00 Temperature 97.4 F L 97.4 F L 96.8 F L Pulse Rate 79 79 90 Respiratory Rate 16 18 22 Blood Pressure 113/56 L 153/63 H 121/84 Pulse Oximetry 97 98 95 09/08/18 12:00 Temperature 98.6 F Pulse Rate 105 H Respiratory Rate 20 Blood Pressure 118/58 L Pulse Oximetry 96 Intake & Output 09/07/18 09/08/18 09/08/18 18:59 06:59 18:59 Intake Total 1000 / 1000 1200 / 1200 Output Total 800 / 800 1000 / 1000 Balance 200 / 200 200 / 200 Intake: IV 100 / 100 200 / 200 Cubicin Inj 850 MG In NS Inj 100 / 100 100 ML @ 200 mls/hr IV.SIG Q48H SHAHEED Rx#:[id number] Merrem Inj 500 MG In NS Inj 100 100 / 100 100 / 100 ML @ 200 mls/hr IV.SIG Q12H SHAHEED Rx#:[id number] Oral 900 / 900 1000 / 1000 Output: Urine 800 / 800 1000 / 1000 Other: Date of Last Bowel Movement 09/07/18 Narrative: General patient currently does not appear to be in any acute distress. HEENT extraocular movements are intact, poor dentition Cardiovascular S1-S2 audible Respiratory clear to auscultation bilaterally Abdomen soft, obese, nontender, normal bowel sounds Extremities right foot covered in bandage. Neuro patient can move all 4 extremities, sensation is intact bilaterally. Patient does not completely follow commands, full neurological examination is difficult to assess. - Urinary Catheter Management Indwelling Urethral Catheter Cath placed during this visit: yes, but has since been removed by the nurse Reason for continuing: Decision to DC catheter Removal date: 09/01/18 Removal time: 04:30 Results - Labs CBC & Chem 7: 09/07/18 11:50 09/08/18 08:00 Laboratory Results - last 24 hr 09/07/18 09/07/18 09/08/18 17:10 22:08 08:00 Sodium 149 H Potassium 3.6 Chloride 112 H Carbon Dioxide 29.9 Anion Gap 7 BUN 55 H Creatinine 2.30 H Estimated GFR 28 L POC Glucose 308 H 264 H Random Glucose 216 H D Calcium 8.4 L Magnesium 1.9 09/08/18 11:54 Sodium Potassium Chloride Carbon Dioxide Anion Gap BUN Creatinine Estimated GFR POC Glucose 249 H Random Glucose Calcium Magnesium Microbiology 09/06/18 17:45 Catheterized Urine Urine Culture - Final Rebeka glabrata Assessment and Plan - Plan This patient is a 73-year-old male with a diagnosis of diabetes mellitus type 2, dyslipidemia, hypertension, chronic kidney disease stage IV. The patient was sent from [facility] after he was found to be confused and was having poor p.o. intake. He was admitted for a urinary tract infection as well as a right foot and heel ulceration. 1. Acute encephalopathy likely secondary to urinary tract infection Patient is awake. He does respond to my questions and commands. I believe his acute encephalopathy has improved significantly. 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 Patient has a urinary tract infection as well as a chronic right foot and heel wound. Podiatry was following however believes that the right foot is not infected Infectious disease following, continue current IV antibiotics. Will follow up with infectious disease today. Continue Diflucan. On my examination today the patient is alert and oriented times 3, however he is slow to respond to questions. 2. Chronic kidney disease stage IV Avoid nephrotoxic agents Serum creatinine 2.370. 3. Diabetes mellitus type 2 Blood sugars running in the mid 200s Levemir will be increased to 18 units subcu nightly. Patient's blood sugars better controlled today. Continue low-dose insulin sliding scale 4. Hypertension Blood pressure currently under control. We will continue to monitor the patient 's blood pressure and start antihypertensives as needed. Heparin for DVT prophylaxis.
[2018-09-08] MEDS: Insulin Detemir Inj 1,000 UNIT/10 ML Vial SQ SCH (21:35)
[2018-09-09] MEDS: Meropenem Inj 500 MG in Sodium Chlor 0.9% Inj 100 ML IV.SIG SCH (01:11)
[2018-09-09] MEDS: Aspirin 325 MG Tablet PO SCH (08:48)
[2018-09-09] MEDS: Heparin - SQ 10,000 UNITS/ML Vial SQ SCH ×2 (08:48→20:33)
[2018-09-09] MEDS: Insulin NovoLOG Aspart Correctional Sugar Inj SQ SCH ×4 (08:49→21:31)
--- NOTE | 2018-09-09 12:52 | P.PNID ---
Subjective Remarks: 73-year-old white male with a past medical history of morbid obesity, diabetes mellitus type 2, hyperlipidemia, hypertension, chronic kidney disease stage IV was sent from [facility] by his sister revoking hospice after finding him to be more confused and having poor appetite and oral intake. Apparently, she stated that she came to visit him to weeks ago in which he was conversant with her and told her that he want to live. He was placed under hospice after recent prolonged hospitalization in the intensive care unit in which patient required intubation for both a healthcare acquired pneumonia and chronic infection of right foot wound. Notes reviewed On Abx for UTI, does not have maldonado cath Also on Abx for his R foot - podiatry notes revealed no evidence of active infection, has stable eschar Temps ok No complaints Not SOB No cough No abdominal pain No N/V Antibiotics: Cubicin Meropenem Lines: Peripheral IV line Past Medical History: Depression (Chronic) Diabetes (Chronic) Diabetes (Chronic) GERD (gastroesophageal reflux disease) (Chronic) HTN (hypertension) (Chronic) High cholesterol (Chronic) Neuropathy (Chronic) Obesity (Chronic) Allergies/Adverse Reactions: Allergies No Known Allergies Allergy (Verified 08/31/18 16:18) Objective Vital Signs 09/08/18 16:00 09/08/18 20:00 09/09/18 00:00 Temperature 96.9 F L 97.9 F 97.9 F Pulse Rate 90 77 73 Respiratory Rate 20 20 20 Blood Pressure 121/59 L 129/61 106/58 L Pulse Oximetry 97 98 97 09/09/18 08:00 09/09/18 12:00 Temperature 96.7 F L 98.9 F Pulse Rate 71 78 Respiratory Rate 20 20 Blood Pressure 140/63 130/62 Pulse Oximetry 93 L 97 Intake & Output 09/08/18 09/09/18 09/09/18 18:59 06:59 18:59 Intake Total 320 / 320 320 / 320 Output Total 850 / 850 125 / 125 Balance -530 / -530 195 / 195 Intake: IV 200 / 200 Merrem Inj 500 MG In NS Inj 100 200 / 200 ML @ 200 mls/hr IV.SIG Q12H SHAHEED Rx#:[id number] Oral 320 / 320 120 / 120 Output: Urine 850 / 850 125 / 125 Other: # Bowel Movements 0 1 09/06/18 17:45 Catheterized Urine Urine Culture - Final Rebeka glabrata Lab - Chemistry Results 09/07/18 09/07/18 09/07/18 14:21 17:10 22:08 Sodium 151 H Potassium 3.7 Chloride 112 H Carbon Dioxide 32.6 H Anion Gap 6 BUN 58 H Creatinine 2.60 H Estimated GFR 24 L POC Glucose 308 H 264 H Random Glucose 356 H Calcium 8.5 Magnesium 09/08/18 09/08/18 09/08/18 08:00 11:54 18:13 Sodium 149 H Potassium 3.6 Chloride 112 H Carbon Dioxide 29.9 Anion Gap 7 BUN 55 H Creatinine 2.30 H Estimated GFR 28 L POC Glucose 249 H 228 H Random Glucose 216 H D Calcium 8.4 L Magnesium 1.9 09/08/18 09/09/18 09/09/18 21:25 07:42 11:16 Sodium Potassium Chloride Carbon Dioxide Anion Gap BUN Creatinine Estimated GFR POC Glucose 216 H 179 H 171 H Random Glucose Calcium Magnesium Imaging: ITS Impressions Chest X-Ray 08/31/18 16:19 CONCLUSION: There continues to be some scattered residual interstitial infiltrates bilaterally, right greater than left. However, the overall findings appear to be improved compared to the prior examination. The heart size remains enlarged but stable. Physical Exam: GENERAL: awake, interacting, not in distress. SKIN: Cool and dry. No generalized rash. EYES: [place] conjunctiva. No petechia or hemorrhage. Pupils equal, round and reactive to light. Extraocular movements full and intact. No scleral icterus. No injection or drainage. EARS, NOSE AND THROAT: Nose without bleeding or purulent nasal discharge. Mucous membranes pink and moist. No oral lesions noted. NECK: Trachea midline. Supple and not tender, no meningeal signs CARDIOVASCULAR: Regular rate and rhythm. No murmurs RESPIRATORY: Decreased BS at bases ABDOMEN: Soft, obese, non-tender, nondistended. Bowel sounds present and normoactive. EXTREMITIES: No clubbing, cyanosis, or edema. Has dry intact dressing to his R foot. No calf tenderness. NEUROLOGICAL: Awake and alert. PSYCHIATRIC: calm and cooperative. LINE: No evidence of infection Assessment and Plan (1) Osteomyelitis of ankle and foot Status: Acute Code(s): M86.9 - Osteomyelitis, unspecified (2) Chronic right arterial ischemic stroke, MCA (middle cerebral artery) Status: Acute Code(s): I69.30 - Unspecified sequelae of cerebral infarction (3) Acute kidney injury Status: Acute Code(s): N17.9 - Acute kidney failure, unspecified (4) UTI (urinary tract infection) Status: Acute Code(s): N39.0 - Urinary tract infection, site not specified (5) Diabetes Status: Acute Code(s): E11.9 - Type 2 diabetes mellitus without complications (6) Hypertension Status: Acute Code(s): I10 - Essential (primary) hypertension - Plan Impression UTI Chronic wound R foot, seems indolent Renal insufficiency ?Osteo R foot DM Encephalopathy, better Recs: Continue Cubicin for MRSA and GPC covergae Change Merem to INvanz Continue Diflucan Monitor progress I will determine course of Abx once work-up is completed
[2018-09-09] MEDS: Ertapenem Inj 500 MG in Sodium Chlor 0.9% Inj 100 ML IV.SIG SCH (14:14)
--- NOTE | 2018-09-09 17:03 | P.PNIM ---
Subjective Interval history: Patient is laying down in bed. He does not appear to be in any acute distress. He does not have any other complaints this afternoon. Physical Exam Vital signs: Vital Signs 09/08/18 20:00 09/09/18 00:00 09/09/18 08:00 Temperature 97.9 F 97.9 F 96.7 F L Pulse Rate 77 73 71 Respiratory Rate 20 20 20 Blood Pressure 129/61 106/58 L 140/63 Pulse Oximetry 98 97 93 L 09/09/18 12:00 Temperature 98.9 F Pulse Rate 78 Respiratory Rate 20 Blood Pressure 130/62 Pulse Oximetry 97 Intake & Output 09/08/18 09/09/18 09/09/18 18:59 06:59 18:59 Intake Total 320 / 320 320 / 320 100 / 100 Output Total 850 / 850 125 / 125 Balance -530 / -530 195 / 195 100 / 100 Intake: IV 200 / 200 100 / 100 INVanz Inj 500 MG In NS Inj 100 100 / 100 ML @ 200 mls/hr IV.SIG Q24H SHAHEED Rx#:[id number] Merrem Inj 500 MG In NS Inj 100 200 / 200 ML @ 200 mls/hr IV.SIG Q12H SHAHEED Rx#:[id number] Oral 320 / 320 120 / 120 Output: Urine 850 / 850 125 / 125 Other: # Bowel Movements 0 1 Narrative: General patient currently does not appear to be in any acute distress. HEENT extraocular movements are intact, poor dentition Cardiovascular S1-S2 audible Respiratory clear to auscultation bilaterally Abdomen soft, obese, nontender, normal bowel sounds Extremities right foot covered in bandage. Neuro patient can move all 4 extremities, sensation is intact bilaterally. Patient does not completely follow commands. - Urinary Catheter Management Indwelling Urethral Catheter Cath placed during this visit: yes, but has since been removed by the nurse Reason for continuing: Decision to DC catheter Removal date: 09/01/18 Removal time: 04:30 Results - Labs CBC & Chem 7: 09/07/18 11:50 09/08/18 08:00 Laboratory Results - last 24 hr 09/08/18 09/08/18 09/09/18 18:13 21:25 07:42 POC Glucose 228 H 216 H 179 H 09/09/18 09/09/18 11:16 16:00 POC Glucose 171 H 246 H Microbiology 09/06/18 17:45 Catheterized Urine Urine Culture - Final Rebeka glabrata Assessment and Plan - Plan This patient is a 73-year-old male with a diagnosis of diabetes mellitus type 2, dyslipidemia, hypertension, chronic kidney disease stage IV. The patient was sent from [facility] after he was found to be confused and was having poor p.o. intake. He was admitted for a urinary tract infection as well as a right foot and heel ulceration. 1. Acute encephalopathy likely secondary to urinary tract infection Patient is now on Invanz for MDR Citrobacter. Continue Diflucan as urine culture is also showing Rebeka. ID following Patient is awake. He does respond to my questions and commands. I believe his acute encephalopathy has improved. 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 Patient has a urinary tract infection as well as a chronic right foot and heel wound. Podiatry was following however believes that the right foot is not infected 2. Chronic kidney disease stage IV Avoid nephrotoxic agents Serum creatinine 2.3 as of yesterday. 3. Diabetes mellitus type 2 Blood sugars running in the mid 200s Levemir will be increased to 20 units subcu nightly. Continue low-dose insulin sliding scale 4. Hypertension Blood pressure currently under control. We will continue to monitor the patient 's blood pressure and start antihypertensives as needed. Heparin for DVT prophylaxis.
[2018-09-09] MEDS: Insulin Detemir Inj 1,000 UNIT/10 ML Vial SQ SCH (21:31)
[2018-09-09] MEDS: DAPTOMYCIN IV.SIG SCH (22:08)
[2018-09-09] MEDS: SODIUM CHLOR 0.9% IV.SIG SCH (22:08)
[2018-09-10 07:59] LABS: Potassium 3.8 meq/L (3.5-5.1)
[2018-09-10 08:02] LABS: Calcium 8.3 mg/dL (8.5-10.1); Carbon Dioxide 27.7 meq/L (21.0-32.0)
[2018-09-10] MEDS: Aspirin 325 MG Tablet PO SCH (08:47)
[2018-09-10] MEDS: Insulin NovoLOG Aspart Correctional Sugar Inj SQ SCH ×5 (08:48→20:28)
[2018-09-10] MEDS: Heparin - SQ 10,000 UNITS/ML Vial SQ SCH ×2 (08:49→20:27)
--- NOTE | 2018-09-10 09:47 | P.PNIM ---
Subjective Interval history: Patient is laying down in bed. He does not have any complaints this morning. His altered mentation has improved. Physical Exam Vital signs: Vital Signs 09/09/18 12:00 09/09/18 16:00 09/09/18 20:00 Temperature 98.9 F 99.3 F 97.2 F L Pulse Rate 78 85 80 Respiratory Rate 20 20 20 Blood Pressure 130/62 135/71 120/56 L Pulse Oximetry 97 98 93 L 09/10/18 00:00 09/10/18 07:52 Temperature 99.3 F 97.1 F L Pulse Rate 88 88 Respiratory Rate 20 20 Blood Pressure 125/56 L 122/62 Pulse Oximetry 98 96 Intake & Output 09/09/18 09/10/18 09/10/18 18:59 06:59 18:59 Intake Total 1540 / 1540 260 / 260 Output Total 600 / 600 200 / 200 Balance 940 / 940 60 / 60 Weight 145.5 kg Intake: IV 100 / 100 100 / 100 Cubicin Inj 850 MG In NS Inj 100 / 100 100 ML @ 200 mls/hr IV.SIG Q48H SHAHEED Rx#:[id number] INVanz Inj 500 MG In NS Inj 100 100 / 100 ML @ 200 mls/hr IV.SIG Q24H SHAHEED Rx#:[id number] Oral 1440 / 1440 160 / 160 Output: Urine 600 / 600 200 / 200 Other: Date of Last Bowel Movement 09/09/18 # Bowel Movements 1 1 Narrative: General patient currently does not appear to be in any acute distress. Patient is awake and alert. HEENT extraocular movements are intact, poor dentition Cardiovascular S1-S2 audible Respiratory clear to auscultation bilaterally Abdomen soft, obese, nontender, normal bowel sounds Extremities right foot covered in bandage. Neuro patient can move all 4 extremities, sensation is intact bilaterally. Patient is following commands today. - Urinary Catheter Management Indwelling Urethral Catheter Cath placed during this visit: yes, but has since been removed by the nurse Reason for continuing: Decision to DC catheter Removal date: 09/01/18 Removal time: 04:30 Results - Labs CBC & Chem 7: 09/07/18 11:50 09/10/18 07:40 Laboratory Results - last 24 hr 09/09/18 09/09/18 09/09/18 11:16 16:00 20:35 Sodium Potassium Chloride Carbon Dioxide Anion Gap BUN Creatinine Estimated GFR POC Glucose 171 H 246 H 175 H Random Glucose Calcium Magnesium 09/10/18 09/10/18 07:40 08:10 Sodium 145 Potassium 3.8 Chloride 108 H Carbon Dioxide 27.7 Anion Gap 9 BUN 43 H Creatinine 1.90 H Estimated GFR 35 L POC Glucose 188 H Random Glucose 194 H Calcium 8.3 L Magnesium 2.0 Assessment and Plan - Plan This patient is a 73-year-old male with a diagnosis of diabetes mellitus type 2, dyslipidemia, hypertension, chronic kidney disease stage IV. The patient was sent from [facility] after he was found to be confused and was having poor p.o. intake. He was admitted for a urinary tract infection as well as a right foot and heel ulceration. 1. Acute encephalopathy likely secondary to urinary tract infection Patient is now on Invanz for MDR Citrobacter. Patient's acute encephalopathy has resolved. He is currently alert and oriented x3 responding to my questions and commands appropriately. Continue Diflucan as urine culture is also showing Rebeka. 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 Patient has a urinary tract infection as well as a chronic right foot and heel wound. Podiatry was following however believes that the right foot is not infected. 2. JOSE on chronic kidney disease stage IV Avoid nephrotoxic agents Serum creatinine 1.9 as of today. 3. Diabetes mellitus type 2 Blood sugars running in the high 180s. Continue Levemir 20 units qHS. Continue low-dose insulin sliding scale 4. Hypertension Blood pressure currently under control. We will continue to monitor the patient 's blood pressure and start antihypertensives as needed. Heparin for DVT prophylaxis.
--- NOTE | 2018-09-10 11:28 | P.PNID ---
Subjective Remarks: 73-year-old white male with a past medical history of morbid obesity, diabetes mellitus type 2, hyperlipidemia, hypertension, chronic kidney disease stage IV was sent from [facility] by his sister revoking hospice after finding him to be more confused and having poor appetite and oral intake. Apparently, she stated that she came to visit him to weeks ago in which he was conversant with her and told her that he want to live. He was placed under hospice after recent prolonged hospitalization in the intensive care unit in which patient required intubation for both a healthcare acquired pneumonia and chronic infection of right foot wound. Notes reviewed No fever No complaints On Abx for UTI, does not have maldonado cath Not SOB No cough No abdominal pain No N/V Antibiotics: Invanz Diflucan Lines: Peripheral IV line Past Medical History: Depression (Chronic) Diabetes (Chronic) Diabetes (Chronic) GERD (gastroesophageal reflux disease) (Chronic) HTN (hypertension) (Chronic) High cholesterol (Chronic) Neuropathy (Chronic) Obesity (Chronic) Allergies/Adverse Reactions: Allergies No Known Allergies Allergy (Verified 08/31/18 16:18) Objective Vital Signs 09/09/18 12:00 09/09/18 16:00 09/09/18 20:00 Temperature 98.9 F 99.3 F 97.2 F L Pulse Rate 78 85 80 Respiratory Rate 20 20 20 Blood Pressure 130/62 135/71 120/56 L Pulse Oximetry 97 98 93 L 09/10/18 00:00 09/10/18 07:52 Temperature 99.3 F 97.1 F L Pulse Rate 88 88 Respiratory Rate 20 20 Blood Pressure 125/56 L 122/62 Pulse Oximetry 98 96 Intake & Output 09/09/18 09/10/18 09/10/18 18:59 06:59 18:59 Intake Total 1540 / 1540 260 / 260 Output Total 600 / 600 200 / 200 Balance 940 / 940 60 / 60 Weight 145.5 kg Intake: IV 100 / 100 100 / 100 Cubicin Inj 850 MG In NS Inj 100 / 100 100 ML @ 200 mls/hr IV.SIG Q48H SHAHEED Rx#:[id number] INVanz Inj 500 MG In NS Inj 100 100 / 100 ML @ 200 mls/hr IV.SIG Q24H SHAHEED Rx#:[id number] Oral 1440 / 1440 160 / 160 Output: Urine 600 / 600 200 / 200 Other: Date of Last Bowel Movement 09/09/18 # Bowel Movements 1 1 09/06/18 17:45 Catheterized Urine Urine Culture - Final Rebeka glabrata Lab - Chemistry Results 09/08/18 09/08/18 09/08/18 11:54 18:13 21:25 Sodium Potassium Chloride Carbon Dioxide Anion Gap BUN Creatinine Estimated GFR POC Glucose 249 H 228 H 216 H Random Glucose Calcium Magnesium 09/09/18 09/09/18 09/09/18 07:42 11:16 16:00 Sodium Potassium Chloride Carbon Dioxide Anion Gap BUN Creatinine Estimated GFR POC Glucose 179 H 171 H 246 H Random Glucose Calcium Magnesium 09/09/18 09/10/18 09/10/18 20:35 07:40 08:10 Sodium 145 Potassium 3.8 Chloride 108 H Carbon Dioxide 27.7 Anion Gap 9 BUN 43 H Creatinine 1.90 H Estimated GFR 35 L POC Glucose 175 H 188 H Random Glucose 194 H Calcium 8.3 L Magnesium 2.0 Imaging: ITS Impressions Chest X-Ray 08/31/18 16:19 CONCLUSION: There continues to be some scattered residual interstitial infiltrates bilaterally, right greater than left. However, the overall findings appear to be improved compared to the prior examination. The heart size remains enlarged but stable. Physical Exam: GENERAL: awake, interacting, not in distress. SKIN: Cool and dry. No generalized rash. EYES: [place] conjunctiva. No petechia or hemorrhage. Pupils equal, round and reactive to light. Extraocular movements full and intact. No scleral icterus. No injection or drainage. EARS, NOSE AND THROAT: Nose without bleeding or purulent nasal discharge. Mucous membranes pink and moist. No oral lesions noted. NECK: Trachea midline. Supple and not tender, no meningeal signs CARDIOVASCULAR: Regular rate and rhythm. No murmurs RESPIRATORY: Decreased BS at bases ABDOMEN: Soft, obese, non-tender, nondistended. Bowel sounds present and normoactive. EXTREMITIES: No clubbing, cyanosis, or edema. Has dry intact dressing to his R foot. No calf tenderness. NEUROLOGICAL: Awake and alert. PSYCHIATRIC: calm and cooperative. LINE: No evidence of infection Assessment and Plan (1) Osteomyelitis of ankle and foot Status: Acute Code(s): M86.9 - Osteomyelitis, unspecified (2) Chronic right arterial ischemic stroke, MCA (middle cerebral artery) Status: Acute Code(s): I69.30 - Unspecified sequelae of cerebral infarction (3) Acute kidney injury Status: Acute Code(s): N17.9 - Acute kidney failure, unspecified (4) UTI (urinary tract infection) Status: Acute Code(s): N39.0 - Urinary tract infection, site not specified (5) Diabetes Status: Acute Code(s): E11.9 - Type 2 diabetes mellitus without complications (6) Hypertension Status: Acute Code(s): I10 - Essential (primary) hypertension - Plan Impression UTI Chronic wound R foot, seems indolent Renal insufficiency ?Osteo R foot DM Encephalopathy, better Recs: Stop Cubicin Give last dose of Invanz today, then D/C Give 14 days of Diflucan Clinically doing well from ID standpoint
[2018-09-10] MEDS: Ertapenem Inj 500 MG in Sodium Chlor 0.9% Inj 100 ML IV.SIG SCH (13:45)
--- NOTE | 2018-09-10 15:51 | P.DIET ---
Nutritional Evaluation Type of nutrition evaluation: follow-up (right foot ostemyelitis; sent here from hospice) Nutrition [place] [facility] [place] [facility] PO Intake; Low Eliceo Score Subjective Subjective Comments: Pt is a dependent feed. PO intake today 25% for breakfast and 50% for lunch. Objective - Diagnosis UTI, AMS, Hyperglycemia - Objective % IBW: 174 Body Weight Used for Calculations: IBW (80.9 kg) Energy Needs - Lower Range (kCal/kg): 25 Energy Needs - Upper Range (kCal/kg): 30 Lower Limit kCal/kg (kCals): 2,023 Upper Limit kCal/kg (kCals): 2,427 Lower Limit Protein Factor (Grams per Kg): 1.2 Upper Limit Protein Factor (Grams per Kg): 1.4 Lower Protein Needs (Protein): 97 Upper Protein Needs (Protein): 113 Dietitian Reviewed in Medical Record: Current diet, Curent medications, Intake & Output, Labs, Medical history Diet Order: Cardiac Mechanical Soft, chopped meat, Liquids [place] Thickened Oral Diet Intake Amount: Fair 50-75% Speech Therapy Recommendations: Yes (08/10/18 [facility] Soft, [place] thickened liquids) Objective Comments: PMH includes: Depression, GERD DM, high Cholesterol, HTN, Neuropathy, Obesity, CKD Stage IV Labs include: POC Glucose 206, BUN 43, Creatinine 1.9, estGFR 35 Meds include: Lasix, Lactulose, Novolog, Zofran +BM Feeding - Current PO Supplement Current Supplement: Ensure Original Current Frequency of Supplement: Three times a day Current kCals Provided by Supplement: 250 Current Protein Provided by Supplement: 9 Assessment Assessment: Pt continues at nutritional risk r/t diagnosis, risk for skin breakdown w/low Eliceo Score. PO intake is variable 0% to 100% for meals. Pt needs to be fed. Ensure TID per MD. Continue to monitor renal labs closely. Wt changes noted. Dietitian following. Recommendations: 1. Ensure TID per MD 2. Pt needs to be fed 3. Dietitian following Dietitian to Monitor: Lab values, Electrolytes, Renal labs, Glucose level, Supplement acceptance, Intake & Output, Diet tolerance, Weight change, PO Intake , Diet advancement, Wound/skin status, Swallow recommendations, Medical course
[2018-09-10] MEDS: Insulin Detemir Inj 1,000 UNIT/10 ML Vial SQ SCH (20:28)
[2018-09-11] MEDS: Aspirin 325 MG Tablet PO SCH (08:24)
[2018-09-11] MEDS: Insulin NovoLOG Aspart Correctional Sugar Inj SQ SCH ×4 (08:25→22:33)
[2018-09-11] MEDS: Heparin - SQ 10,000 UNITS/ML Vial SQ SCH ×2 (08:26→22:33)
--- NOTE | 2018-09-11 10:03 | P.DS ---
Date of admission: 09/01/18 17:43 Primary care physician: UNKNOWN Brief History from admission: 73-year-old white male with a past medical history of morbid obesity, diabetes mellitus type 2, hyperlipidemia, hypertension, chronic kidney disease stage IV was sent from [facility] by his sister revoking hospice after finding him to be more confused and having poor appetite and oral intake. Patient was found to have a urinary tract infection which was likely contributing to his acute encephalopathy. DS: Summary Hospital Course: This patient is a 73-year-old male with a diagnosis of diabetes mellitus type 2, dyslipidemia, hypertension, chronic kidney disease stage IV. The patient was sent from [facility] after he was found to be confused and was having poor p.o. intake. He was found to have a urinary tract infection as well as a right foot and heel ulceration which appear to be chronic. 1. Acute encephalopathy likely secondary to urinary tract infection resolved 2. Right foot and heel ulceration. The patient presented with the symptoms mentioned above including confusion. He was found to have a urinary tract infection. The patient was started on IV antibiotics as well as IV fluids. Urine culture grew MDR Citrobacter, the patient was on IV Invanz and received adequate treatment with IV antibiotics. Blood cultures were negative Urine culture also grew Rebeka. The patient is currently on Diflucan p.o. which will be continued for 40 days. The patient's acute encephalopathy has resolved and he will be [facility]. The patient has chronic ulcers of his right foot. Initially there was a concern that that may have been a source of infection. Patient was evaluated by podiatry however they do not feel that the ulcerations are infected and no intervention was recommended for the foot. The patient can continue with wound care at the jail facility on the right foot. He can also continue physical therapy and rehab at the skilled nurse facility as well. 3. Acute kidney injury on chronic kidney disease stage IV Patient presented with an elevated serum creatinine 2.4. After the initiation of treatment from the UTI the patient's serum creatinine has now down trended to 1.9. He can continue to follow-up with his primary care doctor patient as well as nephrology outpatient for further management of his chronic kidney disease. 4. Diabetes mellitus type 2 As per documentation throughout the hospitalization his blood sugars were running tween 300s-400s. He was then started on Levemir nightly and a low-dose insulin sliding scale. With this regimen his blood sugars have been between 170 and the low 200s. I recommend that the patient obtain a hemoglobin A1c. He can continue to follow-up at the jail facility with the physicians in his diabetes mellitus insulin regimen regimen can be adjusted as needed. - Time Spent with Patient Total time spent providing and/or coordinating discharge services: Greater than 30 minutes - Quality: VTE Deep Vein Thrombosis/Pulmonary Embolism Present on Admission: No Exam Vital signs: Vital Signs 09/10/18 11:40 09/10/18 15:48 09/10/18 20:00 Temperature 97.0 F L 96.8 F L 97.5 F L Pulse Rate 77 74 91 H Respiratory Rate 20 18 18 Blood Pressure 138/59 L 138/60 126/57 L Pulse Oximetry 97 96 95 09/10/18 23:59 09/11/18 08:00 Temperature 97.8 F 98.6 F Pulse Rate 90 78 Respiratory Rate 18 17 Blood Pressure 125/61 Pulse Oximetry 96 96 Intake & Output 09/10/18 09/11/18 09/11/18 18:59 06:59 18:59 Intake Total 100 / 100 Output Total 600 / 600 Balance -500 / -500 Weight 145 kg Intake: IV 100 / 100 INVanz Inj 500 MG In NS Inj 100 100 / 100 ML @ 200 mls/hr IV.SIG Q24H SHAHEED Rx#:[id number] Output: Urine 600 / 600 Other: # Voids 3 # Bowel Movements 0 1 Narrative: General patient currently does not appear to be in any acute distress. Patient is awake and alert. He does not have any other complaints today. HEENT extraocular movements are intact, poor dentition Cardiovascular S1-S2 audible Respiratory clear to auscultation bilaterally Abdomen soft, obese, nontender, normal bowel sounds Extremities right foot covered in bandage. Neuro patient can move all 4 extremities, sensation is intact bilaterally. Patient is following commands today. Results Procedures completed during hospitalization: None Labs on day of discharge: Labs from last 24 hours 09/11/18 09/10/18 09/10/18 08:03 19:48 16:53 POC Glucose 196 H 189 H 195 H 09/10/18 11:36 POC Glucose 206 H Preliminary micro results at discharge 09/01/18 19:30 Wound Culture - Preliminary Wound - Foot Rebeka parapsilosis - Impressions ITS Impressions Chest X-Ray 08/31/18 16:19 CONCLUSION: There continues to be some scattered residual interstitial infiltrates bilaterally, right greater than left. However, the overall findings appear to be improved compared to the prior examination. The heart size remains enlarged but stable. Discharge Plan - Discharge Disposition Patient Disposition: 03 Discharge to SNF - Discharge Condition Condition: Stable - Discharge Order Discharge Orders: Discharge Order (Routine); Ordered 09/11/18 Ordered By: Kori Ruiz - Discharge Details Anticipated Discharge Date: 08/31/18 - Physicians Team Primary Care Provider: UNKNOWN, Attending Provider: Kori Ruiz Other Providers: Melisa Denton MD ; Papi Angel DPM
[2018-09-11] MEDS: Ertapenem Inj 500 MG in Sodium Chlor 0.9% Inj 100 ML IV.SIG SCH (15:05)
[2018-09-11] MEDS: Insulin Detemir Inj 1,000 UNIT/10 ML Vial SQ SCH (22:33)
[2018-09-12] MEDS: Insulin NovoLOG Aspart Correctional Sugar Inj SQ SCH ×4 (09:01→21:36)
[2018-09-12] MEDS: Aspirin 325 MG Tablet PO SCH (09:01)
[2018-09-12] MEDS: Heparin - SQ 10,000 UNITS/ML Vial SQ SCH ×2 (09:02→21:36)
--- NOTE | 2018-09-12 15:42 | P.PNIM ---
Subjective Interval history: Patient laying down in bed. He does not have any complaints today. Physical Exam Vital signs: Vital Signs 09/11/18 16:00 09/11/18 20:00 09/12/18 00:00 Temperature 98.6 F 96.8 F L 96.8 F L Pulse Rate 78 78 73 Respiratory Rate 18 19 18 Blood Pressure 104/59 L 133/58 L 130/59 L Pulse Oximetry 98 95 92 L 09/12/18 08:00 09/12/18 12:00 Temperature 98.2 F 98.0 F Pulse Rate 75 85 Respiratory Rate 16 17 Blood Pressure 122/70 116/76 Pulse Oximetry 97 97 Intake & Output 09/11/18 09/12/18 09/12/18 18:59 06:59 18:59 Weight 144.2 kg Other: # Voids 2 # Incontinent Voids 3 # Incontinent Bowel Movements 1 Narrative: No change in the patients physical examination today. General patient currently does not appear to be in any acute distress. Patient is awake and alert. He does not have any other complaints today. HEENT extraocular movements are intact, poor dentition Cardiovascular S1-S2 audible Respiratory clear to auscultation bilaterally Abdomen soft, obese, nontender, normal bowel sounds Extremities right foot covered in bandage. Neuro patient can move all 4 extremities, sensation is intact bilaterally. Patient is following commands today. - Urinary Catheter Management Indwelling Urethral Catheter Cath placed during this visit: yes, but has since been removed by the nurse Reason for continuing: Decision to DC catheter Removal date: 09/01/18 Removal time: 04:30 Results - Labs CBC & Chem 7: 09/07/18 11:50 09/10/18 07:40 Laboratory Results - last 24 hr 09/11/18 09/11/18 09/12/18 17:22 22:32 07:58 POC Glucose 174 H 184 H 180 H 09/12/18 09/12/18 11:21 15:32 POC Glucose 191 H 216 H - Procedures None Assessment and Plan - Plan This patient is a 73-year-old male with a diagnosis of diabetes mellitus type 2, dyslipidemia, hypertension, chronic kidney disease stage IV. The patient was sent from [facility] after he was found to be confused and was having poor p.o. intake. He was admitted for a urinary tract infection as well as a right foot and heel ulceration. 1. Acute encephalopathy likely secondary to urinary tract infection Patient is now on Invanz for MDR Citrobacter. Completed treatment with invanz. Patient's acute encephalopathy has resolved. He is currently alert and oriented x3 responding to my questions and commands appropriately. Continue Diflucan as urine culture is also showing Rebeka for total of 14 days. 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 Patient has a urinary tract infection as well as a chronic right foot and heel wound. Podiatry was following however believes that the right foot is not infected. 2. JOSE on chronic kidney disease stage IV Avoid nephrotoxic agents Serum creatinine 1.9 3. Diabetes mellitus type 2 Blood sugars running in the high 180s to 200s. Continue Levemir 20 units qHS. Continue low-dose insulin sliding scale 4. Hypertension Blood pressure currently under control. We will continue to monitor the patient 's blood pressure and start antihypertensives as needed. Heparin for DVT prophylaxis. Discharge planning, patient is cleared for discharge from a medical standpoint. Case management working on placement at a SNF.
[2018-09-12] MEDS: Insulin Detemir Inj 1,000 UNIT/10 ML Vial SQ SCH (21:36)
[2018-09-13] MEDS: Insulin NovoLOG Aspart Correctional Sugar Inj SQ SCH ×4 (09:44→21:31)
[2018-09-13] MEDS: Aspirin 325 MG Tablet PO SCH (09:44)
[2018-09-13] MEDS: Heparin - SQ 10,000 UNITS/ML Vial SQ SCH ×2 (09:45→21:28)
--- NOTE | 2018-09-13 11:31 | P.PNIM ---
Subjective Interval history: Patient is in no acute distress. No complaints from the patient. Physical Exam Vital signs: Vital Signs 09/12/18 12:00 09/12/18 16:00 09/12/18 20:00 Temperature 98.0 F 98.4 F 96.7 F L Pulse Rate 85 64 81 Respiratory Rate 17 17 20 Blood Pressure 116/76 122/62 106/85 Pulse Oximetry 97 97 96 09/13/18 00:00 09/13/18 08:00 Temperature 96.4 F L 96.0 F L Pulse Rate 83 80 Respiratory Rate 20 20 Blood Pressure 143/83 H 127/61 Pulse Oximetry 98 96 Intake & Output 09/12/18 09/13/18 09/13/18 18:59 06:59 18:59 Intake Total 720 / 720 240 / 240 Output Total 300 / 300 Balance 720 / 720 -60 / -60 Weight 140 kg Intake: Oral 720 / 720 240 / 240 Output: Urine 300 / 300 Other: # Incontinent Voids 3 # Urine Diapers 2 # Bowel Movements 0 Narrative: No change in the patients physical examination today. General patient currently does not appear to be in any acute distress. Patient is awake and alert. He does not have any other complaints today. HEENT extraocular movements are intact, poor dentition Cardiovascular S1-S2 audible Respiratory clear to auscultation bilaterally Abdomen soft, obese, nontender, normal bowel sounds Extremities right foot covered in bandage. Neuro patient can move all 4 extremities, sensation is intact bilaterally. Patient is following commands. - Urinary Catheter Management Indwelling Urethral Catheter Cath placed during this visit: yes, but has since been removed by the nurse Reason for continuing: Decision to DC catheter Removal date: 09/01/18 Removal time: 04:30 Results - Labs CBC & Chem 7: 09/07/18 11:50 09/10/18 07:40 Laboratory Results - last 24 hr 09/12/18 09/12/18 09/12/18 11:21 15:32 21:35 POC Glucose 191 H 216 H 216 H 09/13/18 08:05 POC Glucose 224 H - Procedures None Assessment and Plan - Plan This patient is a 73-year-old male with a diagnosis of diabetes mellitus type 2, dyslipidemia, hypertension, chronic kidney disease stage IV. The patient was sent from [facility] after he was found to be confused and was having poor p.o. intake. He was admitted for a urinary tract infection as well as a right foot and heel ulceration. 09/12/2018 No change in the patient's current management. He will be continued on Diflucan for urinary tract infection which grew Rebeka. Patient completed his treatment of Invanz for Citrobacter UTI which was MDR. His acute encephalopathy has resolved. Case management is working on the patient's discharge at a jail facility. Case will be discussed with case management this afternoon. Was evaluated by physical therapy today. From a medical standpoint the patient can be discharged to a jail facility. 1. Acute encephalopathy likely secondary to urinary tract infection Patient is now on Invanz for MDR Citrobacter. Completed treatment with invanz. Patient's acute encephalopathy has resolved. He is currently alert and oriented x3 responding to my questions and commands appropriately. Continue Diflucan as urine culture is also showing Rebeka for total of 14 days. 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 Patient has a urinary tract infection as well as a chronic right foot and heel wound. Podiatry was following however believes that the right foot is not infected. 2. JOSE on chronic kidney disease stage IV Avoid nephrotoxic agents Serum creatinine 1.9 3. Diabetes mellitus type 2 Blood sugars running in the high 180s to 200s. Continue Levemir 20 units qHS. Continue low-dose insulin sliding scale 4. Hypertension Blood pressure currently under control. We will continue to monitor the patient 's blood pressure and start antihypertensives as needed. Heparin for DVT prophylaxis. Discharge planning, patient is cleared for discharge from a medical standpoint. Case management working on placement at a SNF.
[2018-09-13] MEDS: Insulin Detemir Inj 1,000 UNIT/10 ML Vial SQ SCH (21:36)
[2018-09-14] MEDS: Aspirin 325 MG Tablet PO SCH ×2 (08:00→08:45)
[2018-09-14] MEDS: Insulin NovoLOG Aspart Correctional Sugar Inj SQ SCH ×4 (08:45→22:39)
[2018-09-14] MEDS: Heparin - SQ 10,000 UNITS/ML Vial SQ SCH ×2 (08:46→22:39)
--- NOTE | 2018-09-14 11:13 | P.DIET ---
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 Pt says he has no appetite-refused breakfast today and also refused breakfast and dinner yesterday 09/13/18. Pt w/poor dentition- missing and chipped teeth. "I just dont have an appetite". Pt says he doesnt like Ensure, "no matter what flavor it comes in". Pt declines suggestions for possible menu selections. Pt was assisted w/ordering lunch and encouraged to have po intake. Objective - Diagnosis UTI, AMS, Hyperglycemia - Objective % IBW: 174 Body Weight Used for Calculations: IBW (80.9 kg) Energy Needs - Lower Range (kCal/kg): 25 Energy Needs - Upper Range (kCal/kg): 30 Lower Limit kCal/kg (kCals): 2,023 Upper Limit kCal/kg (kCals): 2,427 Lower Limit Protein Factor (Grams per Kg): 1.2 Upper Limit Protein Factor (Grams per Kg): 1.4 Lower Protein Needs (Protein): 97 Upper Protein Needs (Protein): 113 Dietitian Reviewed in Medical Record: Current diet, Curent medications, Intake & Output, Labs, Medical history Diet Order: Cardiac Mechanical Soft, chopped meat, Liquids [place] Thickened Oral Diet Intake Amount: Poor <50% Speech Therapy Recommendations: Yes (08/10/18 [facility] Soft, [place] thickened liquids) Objective Comments: PMH includes: Depression, GERD DM, high Cholesterol, HTN, Neuropathy, Obesity, CKD Stage IV Labs include: POC Glucose 209, BUN 43, Creatinine 1.9, estGFR 35 Meds include: Lasix, Lactulose, Levemir, Novolog-SSI, Zofran, Diflucan Integumentary: right heel lesion-necrotic; right foot lesion-necrotic LBM 09/09/18 Feeding - Current PO Supplement Current Supplement: Ensure Original Current Frequency of Supplement: Three times a day Current kCals Provided by Supplement: 250 Current Protein Provided by Supplement: 9 Assessment Assessment: Pt continues at high nutritional risk r/t diagnosis, risk for skin breakdown w/ low Eliceo Score and very poor po intake less than 50% for meals. Pt needs to be fed. Ensure TID per MD. Pt is not drinking the Ensure. Plan to TRIAL No Sugar Added Mighty Shake BID(= 200 kcal and 7g protein). Rec an appetite stimulant, if medically appropriate. Continue to monitor renal labs closely. Wt changes noted. Dietitian following. Recommendations: 1. Pt needs to be fed 2. Ensure TID per MD-Pt is not drinking the Ensure 3. Plan to TRIAL No Sugar Added Mighty Shake BID 4. Rec an appetite stimulant, if medically appropriate 5. Dietitian following Dietitian to Monitor: Lab values, Electrolytes, Renal labs, Glucose level, Supplement acceptance, Intake & Output, Diet tolerance, Weight change, PO Intake , Diet advancement, Wound/skin status, Swallow recommendations, Medical course
--- NOTE | 2018-09-14 16:40 | P.PN ---
Subjective Interval history: Nurse reports that the patient's disorientation/confusion is slightly improved actually today. Otherwise no acute events noted overnight. I asked the patient if he has any complete acute complaints, he responds very slowly and denies anything. Physical Exam Vital signs: Vital Signs 09/13/18 20:00 09/14/18 08:00 09/14/18 12:00 Temperature 96.9 F L 96.2 F L 96.8 F L Pulse Rate 80 92 H 89 Respiratory Rate 18 Blood Pressure 114/75 142/74 H 111/73 Pulse Oximetry 96 97 Intake & Output 09/13/18 09/14/18 09/14/18 18:59 06:59 18:59 Output Total 350 / 350 Balance -350 / -350 Output: Urine 350 / 350 Other: # Voids 2 # Incontinent Voids 3 # Urine Diapers 0 # Bowel Movements 0 Narrative: Obese male Lying in bed Appears to have slowed responses but no slurred speech Clear lungs bilaterally, unlabored breathing Muffled heart sounds - Urinary Catheter Management Indwelling Urethral Catheter Cath placed during this visit: yes, but has since been removed by the nurse Reason for continuing: Decision to DC catheter Removal date: 09/01/18 Removal time: 04:30 Results - Labs CBC & Chem 7: 09/07/18 11:50 09/10/18 07:40 Laboratory Results - last 24 hr 09/13/18 09/13/18 09/14/18 16:46 21:26 07:51 POC Glucose 201 H 148 H 209 H 09/14/18 13:02 POC Glucose 191 H - Procedures None Assessment and Plan - Plan This patient is a 73-year-old male admitted with acute encephalopathy likely secondary to urinary tract infection. With a diagnosis of diabetes mellitus type 2, dyslipidemia, hypertension, chronic kidney disease stage IV. The patient was sent from [facility] after he was found to be confused and was having poor p.o. intake. He was admitted for a urinary tract infection as well as a right foot and heel ulceration. He has completed a regimen of Invanz for MDR Citrobacter. He is to continue for Diflucan for candiduria for a total course of 14 days. 09/13/2018 No change in the patient's current management. pending SNF. Confusion Acute encephalopathy secondary to urinary tract infection is likely resolved Baseline at this time, will obtain B12 levels TSH in 1 month ago was within normal limits -Prior history of stroke left frontal cortex Right foot wound/ulcer Supportive care Chronic kidney disease baseline function Diabetes mellitus type 2 Levemir with sliding scale and Accu-Cheks Discharge Planning: Awaiting fdc facility placement
[2018-09-14] MEDS: Insulin Detemir Inj 1,000 UNIT/10 ML Vial SQ SCH (22:41)
[2018-09-15] MEDS: Heparin - SQ 10,000 UNITS/ML Vial SQ SCH ×2 (08:47→21:03)
[2018-09-15] MEDS: Aspirin 325 MG Tablet PO SCH (08:48)
[2018-09-15] MEDS: Insulin NovoLOG Aspart Correctional Sugar Inj SQ SCH ×4 (08:54→21:06)
[2018-09-15] MEDS: Insulin Detemir Inj 1,000 UNIT/10 ML Vial SQ SCH (21:05)
[2018-09-16] MEDS: Heparin - SQ 10,000 UNITS/ML Vial SQ SCH (08:33)
[2018-09-16] MEDS: Insulin NovoLOG Aspart Correctional Sugar Inj SQ SCH ×4 (08:34→22:59)
[2018-09-16] MEDS: Aspirin 325 MG Tablet PO SCH (08:36)
--- NOTE | 2018-09-16 14:47 | P.PN ---
Subjective Interval history: Nursing denies any acute changes overnight. Family Member wants to start the patient on zinc and Vitamin D. Physical Exam Vital signs: Vital Signs 09/15/18 16:55 09/15/18 20:00 09/16/18 00:53 Temperature 97.0 F L 96.5 F L 97.3 F L Pulse Rate 86 87 90 Respiratory Rate 18 20 20 Blood Pressure 109/64 135/70 123/61 Pulse Oximetry 98 96 98 09/16/18 07:00 09/16/18 12:00 Temperature 96.5 F L 96.8 F L Pulse Rate 90 90 Respiratory Rate 18 18 Blood Pressure 132/60 137/74 Pulse Oximetry 96 96 Intake & Output 09/15/18 09/16/18 09/16/18 18:59 06:59 18:59 Intake Total 450 / 450 60 / 60 Balance 450 / 450 60 / 60 Weight 143.1 kg Intake: Oral 450 / 450 60 / 60 Other: # Voids 3 3 Date of Last Bowel Movement 09/09/18 09/16/18 # Bowel Movements 1 Narrative: Heart sounds are muffled Unlabored breathing while lying in bed, difficult to hear bases of lungs due to the patient's habitus and position Awake and alert Oriented x3, intact insight 5/5 proximal upper extremity strength laterally 4/5 proximal hip flexor strength bilaterally Right pupil round and reactive, left pupil artificially modified due to cataract surgery Extraocular motions intact, good eye tracking across midline - Urinary Catheter Management Indwelling Urethral Catheter Cath placed during this visit: yes, but has since been removed by the nurse Reason for continuing: Decision to DC catheter Removal date: 09/01/18 Removal time: 04:30 Results - Labs CBC & Chem 7: 09/07/18 11:50 09/18/18 07:05 Laboratory Results - last 24 hr 09/15/18 09/15/18 09/16/18 16:39 21:01 07:27 POC Glucose 314 H 230 H 237 H 09/16/18 11:40 POC Glucose 289 H Microbiology 09/01/18 19:30 Wound - Foot Gram Stain - Final 09/01/18 19:30 Wound - Foot Wound Culture - Final Rebeka parapsilosis - Procedures None Assessment and Plan - Plan This patient is a 73-year-old male admitted with acute encephalopathy likely secondary to urinary tract infection. With a diagnosis of diabetes mellitus type 2, dyslipidemia, hypertension, chronic kidney disease stage IV. The patient was sent from [facility] after he was found to be confused and was having poor p.o. intake. He was admitted for a urinary tract infection as well as a right foot and heel ulceration. He has completed a regimen of Invanz for MDR Citrobacter, encephalopathy resolved, now back to baseline mentation which does involve some disorientation and confusion. He is to continue for Diflucan for candiduria for a total course of 14 days. History of left atrial appendage thrombus -Noted on last hospitalization in July which the patient was discharged to hospice. While he was hospitalized during that timeframe he was started on a heparin drip. Since the patient is no longer on hospice, we will restart him on anticoagulation with weight-based Lovenox for now. Confusion/dementia History of stroke. B12 within normal limits as well as TSH. -With lack of focal deficits on exam it is unlikely the patient has had any new strokes, holding off on any further imaging at this time Right foot wound/ulcer Supportive care Chronic systolic CHF per EF of 35-40% on CHIKA performed on by radio program director on on previous hospitalization Continue Lasix, rechecking BMP today Chronic kidney disease baseline function, will recheck BMP given pt has been on lasix Diabetes mellitus type 2 Levemir with sliding scale and Accu-Cheks Addendum: Noted to have AK I, likely due to pharmacological diuresis. Will stop Lasix, do low-dose bolus, recheck BMP in a.m. Discharge Planning: Awaiting alf facility placement
--- NOTE | 2018-09-16 15:00 | P.PN ---
Subjective Interval history: RN denies any acute changes over the day. No new complaints from patient. Physical Exam Vital signs: Vital Signs 09/15/18 16:55 09/15/18 20:00 09/16/18 00:53 Temperature 97.0 F L 96.5 F L 97.3 F L Pulse Rate 86 87 90 Respiratory Rate 18 20 20 Blood Pressure 109/64 135/70 123/61 Pulse Oximetry 98 96 98 09/16/18 07:00 09/16/18 12:00 Temperature 96.5 F L 96.8 F L Pulse Rate 90 90 Respiratory Rate 18 18 Blood Pressure 132/60 137/74 Pulse Oximetry 96 96 Intake & Output 09/15/18 09/16/18 09/16/18 18:59 06:59 18:59 Intake Total 450 / 450 60 / 60 Balance 450 / 450 60 / 60 Weight 143.1 kg Intake: Oral 450 / 450 60 / 60 Other: # Voids 3 3 Date of Last Bowel Movement 09/09/18 09/16/18 # Bowel Movements 1 Narrative: Patient lying in bed, no acute distress No lower extremity edema Overall unchanged physical exam since yesterday - Urinary Catheter Management Indwelling Urethral Catheter Cath placed during this visit: yes, but has since been removed by the nurse Reason for continuing: Decision to DC catheter Removal date: 09/01/18 Removal time: 04:30 Results - Labs CBC & Chem 7: 09/07/18 11:50 09/18/18 07:05 Laboratory Results - last 24 hr 09/15/18 09/15/18 09/16/18 16:39 21:01 07:27 POC Glucose 314 H 230 H 237 H 09/16/18 11:40 POC Glucose 289 H Microbiology 09/01/18 19:30 Wound - Foot Gram Stain - Final 09/01/18 19:30 Wound - Foot Wound Culture - Final Rebeka parapsilosis - Procedures None Assessment and Plan - Plan This patient is a 73-year-old male admitted with acute encephalopathy likely secondary to urinary tract infection. With a diagnosis of diabetes mellitus type 2, dyslipidemia, hypertension, chronic kidney disease stage IV. The patient was sent from [facility] after he was found to be confused and was having poor p.o. intake. He was admitted for a urinary tract infection as well as a right foot and heel ulceration. He has completed a regimen of Invanz for MDR Citrobacter, encephalopathy resolved, now back to baseline mentation which does involve some disorientation and confusion. He is to continue for Diflucan for candiduria for a total course of 14 days. 09/15/2018 No significant change in the patient's current management. pending SNF. Dementia History of stroke. B12 within normal limits as well as TSH. Right foot wound/ulcer Supportive care Chronic kidney disease baseline function, monitor periodically Diabetes mellitus type 2 -Levemir with sliding scale and Accu-Cheks, will increase basal dosing since sugars are mostly > 200s Discharge Planning: Awaiting long-term facility placement
[2018-09-16 16:11] LABS: Potassium 3.7 meq/L (3.5-5.1)
[2018-09-16 16:13] LABS: Calcium 8.3 mg/dL (8.5-10.1)
[2018-09-16 16:14] LABS: Carbon Dioxide 31.2 meq/L (21.0-32.0)
[2018-09-16] MEDS ORDERED: Sodium Chlor 0.9% Inj 250 ML IV.SIG SCH (17:00)
[2018-09-16] MEDS: Insulin Detemir Inj 1,000 UNIT/10 ML Vial SQ SCH (22:59)
[2018-09-16] MEDS: Enoxaparin Inj 150 MG/ML Syringe SQ SCH (23:21)
[2018-09-17] MEDS: Insulin NovoLOG Aspart Correctional Sugar Inj SQ SCH ×4 (07:35→20:46)
[2018-09-17] MEDS: Enoxaparin Inj 150 MG/ML Syringe SQ SCH ×2 (08:29→20:32)
[2018-09-17 08:43] LABS: Potassium 3.6 meq/L (3.5-5.1)
[2018-09-17 08:46] LABS: Calcium 8.2 mg/dL (8.5-10.1); Carbon Dioxide 30.4 meq/L (21.0-32.0)
--- NOTE | 2018-09-17 16:35 | P.PN ---
Subjective Interval history: Nursing denies any acute changes overnight. Patient himself has no new complaints. Lying in bed. Interactive on exam. Physical Exam Vital signs: Vital Signs 09/16/18 20:00 09/17/18 00:00 09/17/18 07:00 Temperature 96.6 F L 97.1 F L 98.1 F Pulse Rate 84 97 H 73 Respiratory Rate 21 18 18 Blood Pressure 148/64 H 147/64 H 140/61 Pulse Oximetry 97 95 96 09/17/18 12:39 09/17/18 15:00 Temperature 97.0 F L 96.6 F L Pulse Rate 86 75 Respiratory Rate 20 20 Blood Pressure 113/60 131/60 Pulse Oximetry 96 96 Intake & Output 09/16/18 09/17/18 09/17/18 18:59 06:59 18:59 Intake Total 100 / 100 Output Total 0 / 0 Balance 100 / 100 Intake: IV 100 / 100 NS Inj 250 ML @ 500 mls/hr IV. 100 / 100 SIG BOLUS SHAHEED Rx#:[id number] Output: Stool 0 / 0 Other: # Voids 4 Date of Last Bowel Movement 09/16/18 09/16/18 Narrative: No facial droop, no slurred speech Extraocular motions intact, does track well across the midline Diminished breath sounds heard as the patient is lying in a supine position Muffled heart sounds 5/5 proximal upper extremity strength bilaterally, 5/5 proximal hip flexor strength bilaterally - Urinary Catheter Management Indwelling Urethral Catheter Cath placed during this visit: yes, but has since been removed by the nurse Reason for continuing: Decision to DC catheter Removal date: 09/01/18 Removal time: 04:30 Results - Labs CBC & Chem 7: 09/07/18 11:50 09/18/18 07:05 Laboratory Results - last 24 hr 09/16/18 09/16/18 09/17/18 17:05 22:55 07:14 Sodium Potassium Chloride Carbon Dioxide Anion Gap BUN Creatinine Estimated GFR POC Glucose 226 H 255 H 217 H Random Glucose Calcium 09/17/18 09/17/18 09/17/18 08:26 11:03 16:14 Sodium 138 Potassium 3.6 Chloride 100 Carbon Dioxide 30.4 Anion Gap 8 BUN 43 H Creatinine 2.20 H Estimated GFR 29 L POC Glucose 266 H 315 H Random Glucose 219 H Calcium 8.2 L - Procedures None Assessment and Plan - Plan This patient is a 73-year-old male admitted with acute encephalopathy likely secondary to urinary tract infection. The patient came from hospice care at [facility] after he was found to be confused and was having poor p.o. intake. He was admitted for a urinary tract infection as well as a right foot and heel ulceration. He has completed a regimen of Invanz for MDR Citrobacter, encephalopathy resolved, now back to baseline mentation which does involve some disorientation and confusion. He is to continue for Diflucan for candiduria for a total course of 14 days. History of left atrial appendage thrombus (dx during recent hospitalization) -weight-based Lovenox for now. Confusion/dementia History of stroke. B12 within normal limits as well as TSH. -With lack of focal deficits on exam it is unlikely the patient has had any new strokes, holding off on any further imaging at this time Acute on chronic kidney injury -Continue to hold diuretic, give another small bolus with further IV albumin infusion, recheck BMP in a.m. Chronic systolic CHF per EF of 35-40% on CHIKA performed on by port drier on on previous hospitalization Continue Lasix, rechecking BMP today Right foot wound/ulcer Supportive care Diabetes mellitus type 2 Levemir with sliding scale and Accu-Cheks Discharge Planning: Awaiting shelter facility placement
[2018-09-17] MEDS ORDERED: Sodium Chlor 0.9% Inj 250 ML IV.SIG SCH (17:00)
[2018-09-17] MEDS ORDERED: Albumin Human 25% Inj 50 ML IV.SIG ONE (17:00)
--- NOTE | 2018-09-17 18:08 | P.CONNP ---
History of Present Illness Service: Nephrology Consult date: 09/17/18 Requesting Physician: Albert Yeager Reason for Consult: Acute and chronic kidney disease Primary Care Provider: UNKNOWN Chief Complaint: Sent from the [facility] by sister revoking hospice History of Present Illness: Patient is a 73-year-old male with history of diabetes, chronic kidney disease, congestive heart failure, admitted since 08/31/2018, he was in [facility] and was on hospice, he has long-standing history of diabetes and had been having shortness of breath and altered mental status at times, he said he was able to sit in the chair but could not stand up as he get dizziness, he was in a wheelchair and now bedbound status, he has chronic kidney disease and seen by Dr. Weiss and Dr. Hinkle in May creatinine ranging from 1.5-2.7, underlying congestive heart failure with EF of 35-40 %. Review of Systems Constitutional: Reports body ache(s), Reports lack of energy, Reports malaise Cardiovascular: Reports irregular heart rhythm, Reports leg swelling, Reports shortness of breath Respiratory: Reports shortness of breath, Reports shortness of breath with activity Gastrointestinal: Reports nausea Genitourinary: Reports other Musculoskeletal: Reports abnormal walking, Reports muscle weakness Neurologic: Reports weakness Psychiatric: Reports depression Endocrine: Reports cold intolerance Hematologic/Lymphatic: Denies easy bleeding, Denies easy bruising, Denies enlarged lymph nodes, Denies other Allergic/Immunologic: Denies GI upset with certain foods, Denies hives, Denies itchy eyes, Denies lip swelling, Denies seasonal runny nose, Denies throat swelling, Denies tongue swelling, Denies wheezing, Denies other PMFSH - History History Provided By: Patient - Medical History Medical History: Medical History (Last Reviewed 09/17/18 @ 17:59 by Magalis Liao MD) MDRO (multiple drug resistant organisms) resistance Onset Date: ~08/31/18 Depression Diabetes Diabetes GERD (gastroesophageal reflux disease) HTN (hypertension) High cholesterol Neuropathy Obesity - Family History Family History: Family History (Last Reviewed 09/17/18 @ 17:59 by Magalis Liao MD) Father Malignancy - Social History I have reviewed the patient's Social History: Yes - Tobacco History Second Hand Smoke Exposure: No Tobacco Use In Past 30 Days: No Smoking Status: Former smoker Tobacco Type: Cigarettes - Alcohol History How Often Do You Have a Drink Containing Alcohol: Never - Substance Use History Substance History: No History of Abuse - Travel History Recent Travel in the [place] Within the Last 8 Weeks: No Recent Travel Out of the Country Within the Last 8 Weeks: No - Immunization History Tetanus Immunization: Unsure Hx Influenza Vaccine This Season: Yes Medications and Allergies Active Medications: Active Medications Acetaminophen (Tylenol) 650 mg PO Q4H PRN PRN Reason: Headache, fever, pain 1-4 Al Hydroxide/Mg Hydroxide (Milk Of Magnesia Liq) 30 ml PO Q12H PRN PRN Reason: Mild Constipation Aspirin (Ecotrin) 81 mg PO DAILY [facility] Last Admin: 09/17/18 08:24 Dose: 81 mg Bisacodyl (Dulcolax Supp) 10 mg RECTAL DAILY PRN PRN Reason: SEVERE CONSITIPATION Dextrose (D50w Vial) 50 ml IV.PUSH UNSCH PRN PRN Reason: PER HYPOGLYCEMIA PROTOCOL Enoxaparin Sodium (Lovenox Inj) 140 mg SQ Q12HR [facility] Last Admin: 09/17/18 08:29 Dose: 140 mg Fluconazole (Diflucan) 200 mg PO DAILY [facility] Last Admin: 09/17/18 08:24 Dose: 200 mg Glucagon (Glucagon Inj) 1 mg OTHER PRN PRN PRN Reason: for Hypoglycemia Protocol Insulin Aspart (Novolog Insulin Correctional Sugar Inj) 0 unit SQ [facility]; Protocol Last Admin: 09/17/18 16:32 Dose: 7 unit Insulin Detemir (Levemir Inj) 20 unit SQ HS [facility] Last Admin: 09/16/18 22:59 Dose: 20 unit Lactulose (Lactulose Liq) 30 ml PO DAILY PRN PRN Reason: SEVERE CONSITIPATION Ondansetron HCl (Zofran Inj) 4 mg IV.PUSH Q6H PRN PRN Reason: NAUSEA OR VOMITING Sennosides (Senokot) 17.2 mg PO Q12H PRN PRN Reason: Moderate Constipation Zinc Sulfate (Zinc-220) 220 mg PO DAILY [facility] Last Admin: 09/17/18 08:24 Dose: 220 mg Allergies Allergy/AdvReac Type Severity Reaction Status Date / Time No Known Allergies Allergy Verified 08/31/18 16:18 Home Medications Medication Instructions Recorded Confirmed Type acetaminophen 650 mg VA Q6H PRN 08/31/18 08/31/18 History bisacodyl 10 mg VA DAILY PRN 08/31/18 08/31/18 History furosemide 40 mg IV DAILY 08/31/18 08/31/18 History haloperidol 2 mg SUBLINGUAL Q1-4H PRN 08/31/18 08/31/18 History haloperidol lactate 2 mg IM Q4-8H PRN 08/31/18 08/31/18 History ipratropium-albuterol 3 ml INHALATION QID 08/31/18 08/31/18 History lorazepam 1 mg PO Q1-2H PRN 08/31/18 08/31/18 History Exam Vital signs: Vital Signs 09/16/18 20:00 09/17/18 00:00 09/17/18 07:00 Temperature 96.6 F L 97.1 F L 98.1 F Pulse Rate 84 97 H 73 Respiratory Rate 21 18 18 Blood Pressure 148/64 H 147/64 H 140/61 Pulse Oximetry 97 95 96 09/17/18 12:39 09/17/18 15:00 Temperature 97.0 F L 96.6 F L Pulse Rate 86 75 Respiratory Rate 20 20 Blood Pressure 113/60 131/60 Pulse Oximetry 96 96 Intake & Output 09/16/18 09/17/18 09/17/18 18:59 06:59 18:59 Intake Total 100 / 100 250 / 250 Output Total 0 / 0 Balance 100 / 100 250 / 250 Intake: IV 100 / 100 250 / 250 NS Inj 250 ML @ 500 mls/hr IV. 100 / 100 250 / 250 SIG BOLUS SHAHEED Rx#:[id number] Output: Stool 0 / 0 Other: # Voids 4 Date of Last Bowel Movement 09/16/18 09/16/18 Narrative: GENERAL: Well-nourished, obese well-developed patient. SKIN: Warm and dry. HEAD: Normocephalic. EYES: No scleral icterus. No injection or drainage. NECK: Supple, trachea midline. No JVD or lymphadenopathy. CARDIOVASCULAR: Irregular RESPIRATORY: Breath sounds diminished at bases GASTROINTESTINAL: Abdomen soft, non-tender, nondistended, small wound on the left abdominal wall. EXTREMITIES: Mild edema, right foot ulcer NEUROLOGICAL: Awake, alert, . Results - Lab Results 09/07/18 11:50 09/18/18 07:05 Most recent lab results Calcium 8.2 mg/dL (8.5-10.1) L 09/17/18 08:26 Magnesium 2.0 mg/dL (1.5-2.5) 09/10/18 07:40 Assessment and Plan - Assessment (1) JOSE (acute kidney injury) Code(s): N17.9 - Acute kidney failure, unspecified Status: Acute (2) Chronic kidney disease Code(s): N18.9 - Chronic kidney disease, unspecified Status: Acute (3) Diastolic heart failure Code(s): I50.30 - Unspecified diastolic (congestive) heart failure Status: Acute (4) Debility Code(s): R53.81 - Other malaise Status: Acute (5) Acute kidney injury Code(s): N17.9 - Acute kidney failure, unspecified Status: Acute (6) UTI (urinary tract infection) Code(s): N39.0 - Urinary tract infection, site not specified Status: Acute - Plan Patient is given albumin and I will repeat the dose in then restart Lasix 20 mg IV in the morning, patient has congestive heart failure with low EF and has renal insufficiency, he is at risk of developing cardiorenal syndrome Monitor intake and output Patient is bedbound status Monitor BMP Avoid nephrotoxic agents Patient has been followed by Dr. Hinkle who can follow him on Thursday
[2018-09-17] MEDS: Albumin Human 25% Inj 100 ML IV.SIG SCH (20:32)
[2018-09-17] MEDS: Insulin Detemir Inj 1,000 UNIT/10 ML Vial SQ SCH (20:46)
[2018-09-18 05:40] LABS: Creatinine,Urine Random 104 mg/dL (27-300); Sodium,Urine Random 47 meq/L
[2018-09-18 07:39] LABS: Potassium 3.6 meq/L (3.5-5.1)
[2018-09-18 07:42] LABS: Calcium 8.3 mg/dL (8.5-10.1)
[2018-09-18 07:43] LABS: Carbon Dioxide 29.2 meq/L (21.0-32.0)
[2018-09-18] MEDS: Insulin NovoLOG Aspart Correctional Sugar Inj SQ SCH ×5 (08:09→20:53)
[2018-09-18] MEDS: Albumin Human 25% Inj 100 ML IV.SIG SCH ×2 (08:52→20:42)
[2018-09-18] MEDS: Enoxaparin Inj 150 MG/ML Syringe SQ SCH ×2 (08:54→20:46)
--- NOTE | 2018-09-18 14:36 | P.PN ---
Subjective Interval history: Nursing denies any acute changes overnight -she is reporting some periodic mild confusion/disorientation but no agitation. Patient has no complaints to me. Physical Exam Vital signs: Vital Signs 09/17/18 15:00 09/17/18 20:00 09/18/18 00:00 Temperature 96.6 F L 96.3 F L 96.5 F L Pulse Rate 75 80 95 H Respiratory Rate 20 18 18 Blood Pressure 131/60 128/83 109/65 Pulse Oximetry 96 95 92 L 09/18/18 08:47 09/18/18 12:00 Temperature 97.1 F L 97.4 F L Pulse Rate 80 76 Respiratory Rate 17 20 Blood Pressure 105/58 L 130/59 L Pulse Oximetry 96 Intake & Output 09/17/18 09/18/18 09/18/18 18:59 06:59 18:59 Intake Total 300 / 300 300 / 300 100 / 100 Balance 300 / 300 300 / 300 100 / 100 Weight 143.2 kg Intake: IV 300 / 300 100 / 100 100 / 100 Flexbumin 25% Inj 50 ML @ 60 50 / 50 mls/hr IV.SIG ONCE ONE Rx#: [id number] Flexbumin 25% Inj 100 ML @ 60 100 / 100 100 / 100 mls/hr IV.SIG Q12H SHAHEED Rx#: [id number] NS Inj 250 ML @ 500 mls/hr IV. 250 / 250 SIG BOLUS SHAHEED Rx#:[id number] Oral 200 / 200 Other: # Voids 5 3 Date of Last Bowel Movement 09/16/18 09/16/18 # Bowel Movements 0 Narrative: Lying in bed Awake and alert Muffled heart sounds Slightly diminished breath sounds heard while the patient is lying in the supine position Right foot and float heel 5/5 proximal upper extremity strength bilaterally Extraocular motions intact, tracks my finger across the midline, no facial droop , no slurred speech - Urinary Catheter Management Indwelling Urethral Catheter Cath placed during this visit: yes, but has since been removed by the nurse Reason for continuing: Decision to DC catheter Removal date: 09/01/18 Removal time: 04:30 Results - Labs CBC & Chem 7: 09/07/18 11:50 09/18/18 07:05 Laboratory Results - last 24 hr 09/17/18 09/17/18 09/17/18 08:26 16:14 20:42 Sodium Potassium Chloride Carbon Dioxide Anion Gap BUN Creatinine Estimated GFR POC Glucose 315 H 298 H Random Glucose Calcium B-Natriuretic Peptide 109 H Urine Osmolality Ur Random Creatinine Ur Random Sodium 09/18/18 09/18/18 09/18/18 00:45 00:45 07:05 Sodium 139 Potassium 3.6 Chloride 101 Carbon Dioxide 29.2 Anion Gap 9 BUN 39 H Creatinine 2.00 H Estimated GFR 33 L POC Glucose Random Glucose 301 H Calcium 8.3 L B-Natriuretic Peptide Urine Osmolality 345 Ur Random Creatinine 104 Ur Random Sodium 47 09/18/18 09/18/18 07:52 11:47 Sodium Potassium Chloride Carbon Dioxide Anion Gap BUN Creatinine Estimated GFR POC Glucose 320 H 266 H Random Glucose Calcium B-Natriuretic Peptide Urine Osmolality Ur Random Creatinine Ur Random Sodium - Procedures None Assessment and Plan - Plan This patient is a 73-year-old male admitted with acute encephalopathy likely secondary to urinary tract infection. The patient came from hospice care at [facility] after he was found to be confused and was having poor p.o. intake. He was admitted for a urinary tract infection as well as a right foot and heel ulceration. He has completed a regimen of Invanz for MDR Citrobacter, encephalopathy resolved, now back to baseline mentation which does involve some disorientation and confusion. He is to continue for Diflucan for candiduria for a total course of 14 days. left atrial appendage thrombus (dx made during most recent hospitalization) -weight-based Lovenox -We will need anticoagulation upon discharge Confusion/dementia History of stroke. B12 within normal limits as well as TSH. -With lack of focal deficits on exam it is unlikely the patient has had any new strokes, holding off on any further imaging at this time Acute on chronic kidney injury -nephrology following, - lasix and albumin - negative balance Chronic systolic CHF per EF of 35-40% on CHIKA performed on by value analysis coordinator on on previous hospitalization Continue Lasix under assistance with nephrology Right foot wound/ulcer Supportive care Diabetes mellitus type 2 Levemir with sliding scale and Accu-Cheks Discharge Planning: Awaiting prison facility placement
--- NOTE | 2018-09-18 20:41 | P.PNNP ---
Subjective Interval history: Patient was laying in the bed history of encephalopathy confusion acute renal insufficiency started on Lasix Physical Exam Vital signs: Vital Signs 09/18/18 00:00 09/18/18 08:47 09/18/18 12:00 Temperature 96.5 F L 97.1 F L 97.4 F L Pulse Rate 95 H 80 76 Respiratory Rate 18 17 20 Blood Pressure 109/65 105/58 L 130/59 L Pulse Oximetry 92 L 96 09/18/18 16:00 Temperature 97.6 F Pulse Rate 81 Respiratory Rate 20 Blood Pressure 114/91 H Pulse Oximetry 95 Intake & Output 09/18/18 09/18/18 09/19/18 06:59 18:59 06:59 Intake Total 300 / 300 340 / 340 Balance 300 / 300 340 / 340 Weight 143.2 kg Intake: IV 100 / 100 100 / 100 Flexbumin 25% Inj 100 ML @ 60 100 / 100 100 / 100 mls/hr IV.SIG Q12H SHAHEED Rx#: [id number] Oral 200 / 200 240 / 240 Other: # Voids 3 Date of Last Bowel Movement 09/16/18 Narrative: Lying in bed Awake and alert Muffled heart sounds Slightly diminished breath sounds heard while the patient is lying in the supine position Right foot and float heel 5/5 proximal upper extremity strength bilaterally Extraocular motions intact, tracks my finger across the midline, no facial droop , no slurred speech - Urinary Catheter Management Indwelling Urethral Catheter Cath placed during this visit: yes, but has since been removed by the nurse Reason for continuing: Decision to DC catheter Removal date: 09/01/18 Removal time: 04:30 Assessment and Plan - Assessment (1) JOSE (acute kidney injury) Code(s): N17.9 - Acute kidney failure, unspecified Status: Acute (2) Chronic kidney disease Code(s): N18.9 - Chronic kidney disease, unspecified Status: Acute (3) Diastolic heart failure Code(s): I50.30 - Unspecified diastolic (congestive) heart failure Status: Acute (4) Debility Code(s): R53.81 - Other malaise Status: Acute (5) Acute kidney injury Code(s): N17.9 - Acute kidney failure, unspecified Status: Acute (6) UTI (urinary tract infection) Code(s): N39.0 - Urinary tract infection, site not specified Status: Acute - Plan Patient is given albumin and I will repeat the dose in then restart Lasix 20 mg IV in the morning, patient has congestive heart failure with low EF and has renal insufficiency, he is at risk of developing cardiorenal syndrome Monitor intake and output Given albumin and Lasix with good response Creatinine declined to 2 Monitor BMP
[2018-09-18] MEDS: Insulin Detemir Inj 1,000 UNIT/10 ML Vial SQ SCH (20:53)
[2018-09-19] MEDS: Insulin NovoLOG Aspart Correctional Sugar Inj SQ SCH ×4 (08:39→22:07)
[2018-09-19] MEDS: Albumin Human 25% Inj 100 ML IV.SIG SCH ×2 (09:43→21:58)
[2018-09-19] MEDS: Enoxaparin Inj 150 MG/ML Syringe SQ SCH ×2 (09:52→22:02)
--- NOTE | 2018-09-19 10:49 | P.PN ---
Subjective Interval history: Nursing denies any acute changes overnight. Patient himself has no new complaints. Resting in bed comfortably. Physical Exam Vital signs: Vital Signs 09/18/18 12:00 09/18/18 16:00 09/18/18 20:00 Temperature 97.4 F L 97.6 F 96.7 F L Pulse Rate 76 81 77 Respiratory Rate 20 20 20 Blood Pressure 130/59 L 114/91 H 139/60 Pulse Oximetry 96 95 99 09/19/18 00:00 09/19/18 08:00 Temperature 96.2 F L 97.8 F Pulse Rate 77 93 H Respiratory Rate 20 23 Blood Pressure 126/72 141/66 H Pulse Oximetry 99 96 Intake & Output 09/18/18 09/19/18 09/19/18 18:59 06:59 18:59 Intake Total 340 / 340 100 / 100 240 / 240 Output Total 275 / 275 Balance 340 / 340 -175 / -175 240 / 240 Weight 143.5 kg Intake: IV 100 / 100 100 / 100 Flexbumin 25% Inj 100 ML @ 60 100 / 100 100 / 100 mls/hr IV.SIG Q12H SHAHEED Rx#: [id number] Oral 240 / 240 0 / 0 240 / 240 Output: Urine 275 / 275 Other: # Voids 1 Date of Last Bowel Movement 09/18/18 Narrative: Heart sounds are muffled Lying in bed, Diminished breath sounds in the bases as the patient is very obese and lying supine position Has 3/5 proximal hip flexor strength 5/5 proximal upper extremity strength including for prescription Extraocular motions intact, good tracking across the midline, no facial droop, no speech - Urinary Catheter Management Indwelling Urethral Catheter Cath placed during this visit: yes, but has since been removed by the nurse Reason for continuing: Decision to DC catheter Removal date: 09/01/18 Removal time: 04:30 Results - Labs CBC & Chem 7: 09/07/18 11:50 09/18/18 07:05 Laboratory Results - last 24 hr 09/18/18 09/18/18 09/18/18 11:47 16:36 20:40 POC Glucose 266 H 319 H 255 H 09/19/18 07:56 POC Glucose 202 H - Procedures None Assessment and Plan - Plan This patient is a 73-year-old male admitted with acute encephalopathy likely secondary to urinary tract infection. The patient came from hospice care at [facility] after he was found to be confused and was having poor p.o. intake. He was admitted for a urinary tract infection as well as a right foot and heel ulceration. He has completed a regimen of Invanz for MDR Citrobacter, encephalopathy resolved, now back to baseline mentation which does involve some disorientation and confusion. He is to continue for Diflucan for candiduria for a total course of 14 days. left atrial appendage thrombus (dx made during most recent hospitalization) -weight-based Lovenox -We will need anticoagulation upon discharge Confusion/dementia History of stroke. B12 within normal limits as well as TSH. -With lack of focal deficits on exam it is unlikely the patient has had any new strokes, holding off on any further imaging at this time Acute on chronic kidney injury -nephrology following, - lasix and albumin - negative balance Chronic systolic CHF per EF of 35-40% on CHIKA performed on by tire design engineer on on previous hospitalization Continue Lasix under assistance with nephrology Right foot wound/ulcer Supportive care Diabetes mellitus type 2 Levemir with sliding scale and Accu-Cheks Discharge Planning: Awaiting [facility] facility placement
--- NOTE | 2018-09-19 18:12 | P.PNNP ---
Subjective Interval history: Patient remains bedbound is that he is feeling better right foot ulcer is wrapped Physical Exam Vital signs: Vital Signs 09/18/18 20:00 09/19/18 00:00 09/19/18 08:00 Temperature 96.7 F L 96.2 F L 97.8 F Pulse Rate 77 77 93 H Respiratory Rate 20 20 23 Blood Pressure 139/60 126/72 141/66 H Pulse Oximetry 99 99 96 09/19/18 12:00 09/19/18 16:00 Temperature 98.2 F 97.2 F L Pulse Rate 75 75 Respiratory Rate 21 19 Blood Pressure 131/60 Pulse Oximetry 96 96 Intake & Output 09/18/18 09/19/18 09/19/18 18:59 06:59 18:59 Intake Total 340 / 340 100 / 100 580 / 580 Output Total 275 / 275 200 / 200 Balance 340 / 340 -175 / -175 380 / 380 Weight 143.5 kg Intake: IV 100 / 100 100 / 100 100 / 100 Flexbumin 25% Inj 100 ML @ 60 100 / 100 100 / 100 100 / 100 mls/hr IV.SIG Q12H SHAHEED Rx#: [id number] Oral 240 / 240 0 / 0 480 / 480 Output: Urine 275 / 275 200 / 200 Other: # Voids 1 Date of Last Bowel Movement 09/18/18 Narrative: GENERAL: Well-nourished, obese well-developed patient. SKIN: Warm and dry. HEAD: Normocephalic. EYES: No scleral icterus. No injection or drainage. NECK: Supple, trachea midline. No JVD or lymphadenopathy. CARDIOVASCULAR: Irregular RESPIRATORY: Breath sounds diminished at bases GASTROINTESTINAL: Abdomen soft, non-tender, nondistended, small wound on the left abdominal wall. EXTREMITIES: Mild edema, right foot ulcer NEUROLOGICAL: Awake, alert, . - Urinary Catheter Management Indwelling Urethral Catheter Cath placed during this visit: yes, but has since been removed by the nurse Reason for continuing: Decision to DC catheter Removal date: 09/01/18 Removal time: 04:30 Assessment and Plan - Assessment (1) JOSE (acute kidney injury) Code(s): N17.9 - Acute kidney failure, unspecified Status: Acute (2) Chronic kidney disease Code(s): N18.9 - Chronic kidney disease, unspecified Status: Acute (3) Diastolic heart failure Code(s): I50.30 - Unspecified diastolic (congestive) heart failure Status: Acute (4) Debility Code(s): R53.81 - Other malaise Status: Acute (5) Acute kidney injury Code(s): N17.9 - Acute kidney failure, unspecified Status: Acute (6) UTI (urinary tract infection) Code(s): N39.0 - Urinary tract infection, site not specified Status: Acute - Plan Patient is doing better follow-up as needed Last creatinine 2 Patient is bedbound status Monitor BMP Avoid nephrotoxic agents Patient has been followed by Dr. Hinkle who can follow him on Thursday
[2018-09-19] MEDS: Insulin Detemir Inj 1,000 UNIT/10 ML Vial SQ SCH (22:02)
[2018-09-20] MEDS: Insulin NovoLOG Aspart Correctional Sugar Inj SQ SCH ×4 (09:00→21:49)
[2018-09-20] MEDS: Enoxaparin Inj 150 MG/ML Syringe SQ SCH ×2 (09:08→21:00)
[2018-09-20] MEDS: Albumin Human 25% Inj 100 ML IV.SIG SCH ×2 (09:10→21:01)
--- NOTE | 2018-09-20 09:55 | P.PNIM ---
Subjective Interval history: 73-year-old male who was seen and examined today for follow-up. Patient was actually discharged on 09/11/18. However patient with discharge difficulties with going to shelter facility. Upon seeing the patient today he denies any new complaints. He is sitting up in bed eating breakfast. Vital signs remained stable. Patient remains afebrile. Physical Exam Vital signs: Vital Signs 09/19/18 12:00 09/19/18 16:00 09/19/18 20:00 Temperature 98.2 F 97.2 F L 97.4 F L Pulse Rate 75 75 87 Respiratory Rate 21 19 16 Blood Pressure 131/60 134/79 Pulse Oximetry 96 96 94 L 09/20/18 00:00 09/20/18 08:00 Temperature 96.5 F L 96.5 F L Pulse Rate 88 81 Respiratory Rate 18 20 Blood Pressure 144/88 H 105/57 L Pulse Oximetry 97 95 Intake & Output 09/19/18 09/20/18 09/20/18 18:59 06:59 18:59 Intake Total 820 / 820 340 / 340 Output Total 1000 / 1000 2150 / 2150 Balance -180 / -180 -1810 / -1810 Intake: IV 100 / 100 100 / 100 Flexbumin 25% Inj 100 ML @ 60 100 / 100 100 / 100 mls/hr IV.SIG Q12H SHAHEED Rx#: [id number] Oral 720 / 720 240 / 240 Output: Urine 1000 / 1000 650 / 650 Stool 1500 / 1500 Other: # Incontinent Voids 2 Date of Last Bowel Movement 09/20/18 # Bowel Movements 4 # Incontinent Bowel Movements 1 Narrative: GENERAL: Well-developed, morbidly obese, in no acute distress. alert and orientated HEENT: Head is normocephalic without any lesions or masses noted. Facial features are symmetric. Eyes: Extraocular muscles are intact. Conjunctivae were clear. CARDIAC: Regular rhythm, regular rate. S1/S2 are heard. No murmurs gallops or rubs. LUNGS: Clear to auscultation bilaterally. No wheeze, rhonchi or rales. No use of accessory muscles on inspiration or expiration. ABDOMEN: Soft, nontender. Nondistended. Bowel sounds heard in all 4 quadrants. No organomegaly or masses. Negative rebound, negative guarding - Urinary Catheter Management Indwelling Urethral Catheter Cath placed during this visit: yes, but has since been removed by the nurse Reason for continuing: Decision to DC catheter Removal date: 09/01/18 Removal time: 04:30 Results - Labs CBC & Chem 7: 09/07/18 11:50 09/18/18 07:05 Laboratory Results - last 24 hr 09/19/18 09/19/18 09/19/18 11:03 16:24 22:07 POC Glucose 294 H 311 H 309 H 09/20/18 07:33 POC Glucose 290 H - Procedures None Assessment and Plan - Plan Acute encephalopathy patient with dementia, resolved History of stroke. B12 within normal limits as well as TSH. -With lack of focal deficits on exam it is unlikely the patient has had any new strokes, holding off on any further imaging at this time -Likely secondary to urinary tract infection Urinary tract infection -Patient completed [facility] Deal -Follow-up urinalysis showing Rebeka glabrata -Patient continued on fluconazole for a total dose of 14 days Left atrial appendage thrombus -Diagnosis made during most recent hospitalization, however patient was discharged to hospice during that hospitalization, no anticoagulation was continued -Patient is on Lovenox daily 12 hours -Patient will need anticoagulation upon discharge Acute on chronic kidney injury -nephrology following, -lasix and albumin -Renal function is improving Chronic systolic CHF per EF of 35-40% on CHIKA performed on by oil analyst on on previous hospitalization Continue Lasix under assistance with nephrology -Patient with negative fluid balance today Diabetic foot wound/ulcer, possible osteomyelitis -Culture indicating Rebeka parapsilosis -Podiatry evaluated the patient in indicated that there was no signs of acute infection. They indicated that if acute infection would arise then they would recommend a below the knee amputation. -Podiatry recommended no surgical intervention and should have Betadine wet-to- dry dressing to right lateral foot and heel to maintain stability. -Podiatry signed off Diabetes mellitus type 2 -Levemir -Accu-Cheks with sliding scale insulin DVT prevention -Patient is on subcutaneous Lovenox Discharge Planning: Discharge planning to rehab facility once arrangements made by case management
[2018-09-20 11:22] LABS: Potassium 3.6 meq/L (3.5-5.1)
[2018-09-20 11:24] LABS: Calcium 8.3 mg/dL (8.5-10.1)
[2018-09-20 11:25] LABS: Carbon Dioxide 28.3 meq/L (21.0-32.0)
--- NOTE | 2018-09-20 14:41 | P.DIET ---
Nutritional Evaluation Type of nutrition evaluation: follow-up (right foot ostemyelitis; sent here from hospice) Nutrition [place]: [facility] [place]: 09/02/18 [facility] [place] Poor PO Intake; Low Eliceo Score Subjective Subjective Comments: Pt visited; IMPROVEMENT DIRECTOR in room. Pt says he has no appetite-refused breakfast today and also refused breakfast and dinner yesterday 09/13/18. Pt w/poor dentition- missing and chipped teeth. "I just dont have an appetite". Pt says he doesnt like Ensure, "no matter what flavor it comes in". Pt declines suggestions for possible menu selections. Pt was assisted w/ordering lunch and encouraged to have po intake. Objective - Diagnosis UTI, AMS, Hyperglycemia - Objective % IBW: 174 Body Weight Used for Calculations: IBW (80.9 kg) Energy Needs - Lower Range (kCal/kg): 25 Energy Needs - Upper Range (kCal/kg): 30 Lower Limit kCal/kg (kCals): 2,023 Upper Limit kCal/kg (kCals): 2,427 Lower Limit Protein Factor (Grams per Kg): 1.2 Upper Limit Protein Factor (Grams per Kg): 1.4 Lower Protein Needs (Protein): 97 Upper Protein Needs (Protein): 113 Dietitian Reviewed in Medical Record: Current diet, Curent medications, Intake & Output, Labs, Medical history Diet Order: Cardiac Mechanical Soft, chopped meat, Liquids [place] Thickened Oral Diet Intake Amount: Poor <50% Speech Therapy Recommendations: Yes (08/10/18 [facility] Soft, [place] thickened liquids) Objective Comments: PMH includes: Depression, GERD DM, high Cholesterol, HTN, Neuropathy, Obesity, CKD Stage IV Labs include: POC Glucose 209, BUN 43, Creatinine 1.9, estGFR 35 Meds include: Lasix, Lactulose, Levemir, Novolog-SSI, Zofran, Diflucan Integumentary: right heel lesion-necrotic; right foot lesion-necrotic LBM 09/09/18 Feeding - Current PO Supplement Current Supplement: Ensure Original Current Frequency of Supplement: Three times a day Current kCals Provided by Supplement: 250 Current Protein Provided by Supplement: 9 Assessment Assessment: Pt continues at high nutritional risk r/t diagnosis, risk for skin breakdown w/ low Eliceo Score. Pt currently consuming around 50-100% of most meals w/ feeding assistance and tolerating well. ST notes reviewed, pt is recommended for soft foods and thin liquids. Wt changes noted, CBW = 143.5kg). Continue to monitor renal labs closely. Dietitian following. Recommendations: 1. Pt needs to be fed 2. Ensure TID per MD-Pt is not drinking the Ensure 3 Continue Mighty Shake BID 4. Rec an appetite stimulant, if medically appropriate 5. Dietitian following Dietitian to Monitor: Lab values, Electrolytes, Renal labs, Glucose level, Supplement acceptance, Intake & Output, Diet tolerance, Weight change, PO Intake , Diet advancement, Wound/skin status, Swallow recommendations, Medical course
--- NOTE | 2018-09-20 15:51 | P.PNADD ---
Addendum to Inpatient Note Reason for Addendum: Additional Documentation Additional information: Patient seen. Heart sounds are muffled unchanged breath sounds which are slight diminished in the bases given his supine position. Patient awake and alert. 5/5 proximal upper extremity strength bilaterally, flexors are normal slurred speech, tongue protrusion midline. 5/5 proximal hip flexor strength bilaterally. Awaiting SNF placement. Renal function improving with Lasix and albumin.
[2018-09-20] MEDS: Insulin Detemir Inj 1,000 UNIT/10 ML Vial SQ SCH (21:48)
[2018-09-20 22:09] VITALS: RESP 18
[2018-09-21] MEDS: Insulin NovoLOG Aspart Correctional Sugar Inj SQ SCH ×2 (08:47→14:30)
[2018-09-21] MEDS: Albumin Human 25% Inj 100 ML IV.SIG SCH (08:49)
[2018-09-21] MEDS: Enoxaparin Inj 150 MG/ML Syringe SQ SCH (09:03)
--- NOTE | 2018-09-21 11:18 | P.PNNP ---
Subjective Interval history: Patient was seen, no distress, no complaints. Renal function has improved, Creatinine is 1.80 and GFR 37. Patient continues to have urine output. Per nurse, patient was previously incontinent but was using the urinal today. IV Lasix and Albumin stopped, switched to PO Lasix. Per nurse, patient is waiting for placement before being discharged. <Yuliana Canales - Last Filed: 09/21/18 11:21> Physical Exam Vital signs: Vital Signs 09/20/18 11:32 09/20/18 16:00 09/20/18 20:00 Temperature 96.4 F L 97.3 F L 96.2 F L Pulse Rate 88 89 79 Respiratory Rate 20 20 18 Blood Pressure 117/58 L 142/67 H 134/66 Pulse Oximetry 95 97 97 09/21/18 00:00 09/21/18 08:00 Temperature 94.5 F L 96.8 F L Pulse Rate 81 89 Respiratory Rate 18 18 Blood Pressure 121/76 89/63 L Pulse Oximetry 97 96 Intake & Output 09/20/18 09/21/18 09/21/18 18:59 06:59 18:59 Intake Total 100 / 100 190 / 190 Output Total 750 / 750 Balance 100 / 100 -560 / -560 Intake: IV 100 / 100 100 / 100 Flexbumin 25% Inj 100 ML @ 60 100 / 100 100 / 100 mls/hr IV.SIG Q12H SHAHEED Rx#: [id number] Oral 90 / 90 Output: Urine 750 / 750 Other: # Voids 4 # Bowel Movements 2 - Constitutional no acute distress, morbidly obese - Routine HEENT Exam Head: Present: normocephalic Eye: Present: EOMI, PERRL ENT: Present: mucous membranes moist - Routine Neck Exam Present: trachea midline. Absent: JVD - Routine Respiratory Exam Absent: accessory muscle use, decreased breath sounds, respiratory distress - Routine Cardiovascular Exam Comments: Muffled heart sounds - Routine Abdominal Exam Present: soft, normoactive bowel sounds. Absent: tenderness - Routine Extremities Exam Present: edema - Routine Neurological Exam Present: alert - Urinary Catheter Management Indwelling Urethral Catheter Cath placed during this visit: yes, but has since been removed by the nurse Reason for continuing: Decision to DC catheter Removal date: 09/01/18 Removal time: 04:30 <Yuliana Canales - Last Filed: 09/21/18 11:21> Vital signs: Vital Signs 09/21/18 12:00 Temperature 98.5 F Pulse Rate 84 Respiratory Rate 18 Blood Pressure 135/68 Pulse Oximetry 98 - Urinary Catheter Management Indwelling Urethral Catheter Cath placed during this visit: no <Mike Hinkle - Last Filed: 09/22/18 10:18> Assessment and Plan - Assessment (1) JOSE (acute kidney injury) Code(s): N17.9 - Acute kidney failure, unspecified Status: Acute (2) Chronic kidney disease Code(s): N18.9 - Chronic kidney disease, unspecified Status: Acute (3) Diastolic heart failure Code(s): I50.30 - Unspecified diastolic (congestive) heart failure Status: Acute (4) Debility Code(s): R53.81 - Other malaise Status: Acute (5) UTI (urinary tract infection) Code(s): N39.0 - Urinary tract infection, site not specified Status: Acute - Plan Acute on Chronic Kidney Disease Patient's renal function has improved, follow-up as needed. Creatinine 1.80 and GFR 37. Patient is bedbound status. Monitor BMP. Monitor I&O. Avoid nephrotoxic agents. UTI Patient is on Diflucan. Diabetes mellitus type 2 Patient on insulin, maintain blood glucose between 140 and 180. <Yuliana Canales - Last Filed: 09/21/18 11:21> - Assessment (1) JOSE (acute kidney injury) Code(s): N17.9 - Acute kidney failure, unspecified Status: Acute (2) Chronic kidney disease Code(s): N18.9 - Chronic kidney disease, unspecified Status: Acute (3) Diastolic heart failure Code(s): I50.30 - Unspecified diastolic (congestive) heart failure Status: Acute (4) Debility Code(s): R53.81 - Other malaise Status: Acute (5) UTI (urinary tract infection) Code(s): N39.0 - Urinary tract infection, site not specified Status: Acute - Attending Attestation Renal function is stable. Can be discharged from renal standpoint. <Mike Hinkle - Last Filed: 09/22/18 10:18>
[2018-09-21 12:39] LABS: Baso # (Auto) 0.1 th/mm3 (0.0-0.2); Baso % (Auto) 1.3 % (0.0-2.0); Eos # (Auto) 0.3 th/mm3 (0.0-0.4); Eos % (Auto) 5.9 % (0.0-4.0); Hematocrit 31.9 % (39.0-51.0); Hemoglobin 10.6 gm/dL (13.0-17.0); Lymph # (Auto) 2.5 th/mm3 (1.0-4.8); Lymph % (Auto) 46.7 % (9.0-44.0); Mean Corpuscular HGB Conc 33.1 % (32.0-36.0); Mean Corpuscular Hemoglobin 29.5 pg (27.0-34.0); Mean Corpuscular Volume 89.2 fL (80.0-100.0); Mean Platelet Volume 9.1 fL (7.0-11.0); Mono # (Auto) 0.5 th/mm3 (0.0-0.9); Mono % (Auto) 8.7 % (0.0-8.0); Neut # (Auto) 2.1 th/mm3 (1.8-7.7); Neut % (Auto) 37.4 % (16.0-70.0); Platelet Count 140 th/mm3 (150-450); Red Blood Count 3.58 mil/mm3 (4.50-5.90); White Blood Count 5.5 th/mm3 (4.0-11.0)
[2018-09-21 12:48] LABS: Potassium 3.6 meq/L (3.5-5.1)
[2018-09-21 12:51] LABS: Carbon Dioxide 27.6 meq/L (21.0-32.0)
[2018-09-21 13:25] VITALS: BP 135/68; PULSE 84; TEMP 98.5; O2SAT 98
--- NOTE | 2018-09-21 13:58 | P.PNIM ---
Subjective Interval history: Patient seen and evaluated spine at bedside. Patient is aware of name, location, but thinks that the year is 1987. Patient does endorse feeling some discomfort in the right heel which was present previously. Otherwise patient without complaint. Patient was able to work with physical therapy and is making progress. Patient denies subjective fever or chills. Patient denied any difficulty with his breathing and says that he is comfortable laying flat in the bed. No chest pain or palpitations endorsed by patient. Physical Exam Vital signs: Last Vital Signs Temp 98.5 F 09/21/18 12:00 Pulse 84 09/21/18 12:00 Resp 18 09/21/18 12:00 BP 135/68 09/21/18 12:00 Pulse Ox 98 09/21/18 12:00 Intake & Output 09/19/18 09/20/18 09/21/18 09/22/18 06:59 06:59 06:59 06:59 Intake Total 440 / 440 1160 / 1160 290 / 290 Output Total 275 / 275 3150 / 3150 750 / 750 Balance 165 / 165 -1989 / -1989 -460 / -460 Weight 143.5 kg general: No acute distress, conversational. Obese male HEENT: EOMI Cardiovascular: S1/S2 Respiratory: Decreased breath sounds at the base bilaterally with (patient is an obese male). No intercostal muscle use Gastroenterology: Small 0.5 x 0.5 cm ulceration over anterior abdomen. No pus noted. Positive bowel sounds, soft, nontender, nondistended no guarding or rebound. Extremity: Lower extremity dressing in place. Urinary Catheter Management Indwelling Urethral Catheter: Cath placed during this visit: yes, but has since been removed by the nurse Removal date: 09/01/18 Removal time: 04:30 Results Labs CBC & Chem 7: 09/21/18 12:30 09/21/18 12:30 Procedures Procedures: None Assessment and Plan (1) JOSE (acute kidney injury): Code(s): N17.9 - Acute kidney failure, unspecified Status: Acute (2) Chronic kidney disease: Code(s): N18.9 - Chronic kidney disease, unspecified Status: Acute (3) Diastolic heart failure: Code(s): I50.30 - Unspecified diastolic (congestive) heart failure Status: Acute (4) Debility: Code(s): R53.81 - Other malaise Status: Acute (5) UTI (urinary tract infection): Code(s): N39.0 - Urinary tract infection, site not specified Status: Acute Plan Neurology: Altered mental status As per documentation patient's mental status appears to be improving at this time. Continue to monitor mental status daily Nephrology: Acute kidney injury Nephrology recommendations appreciated via EMR. BMP daily. Patient creatinine steadily improving now on p.o. Lasix currently at 1.6. Albumin infusion was discontinued previously. continue lasix on discharge. Infectious disease: Urinary tract infection, history of multidrug-resistant organism Diflucan 14-day total dose as per previous infectious disease recommendations continue isolation precautions. complete 14 days of therapy Cardiology: Left atrial appendage thrombus Continue Lovenox subcu full dose every 12 hours. Patient will continue anticoagulation indefinitely dispo: discharge. [facility]. dvt ppx Progress Note: Quality VTE Deep Vein Thrombosis/Pulmonary Embolism Present on Admission: No _ (1) UTI (urinary tract infection) Qualifiers: Encounter type: Hematuria presence: Indwelling urinary catheter type: Urinary tract infection type: (2) Diastolic heart failure Qualifiers: Heart failure chronicity: (3) Chronic kidney disease Qualifiers: Chronic kidney disease stage:
[2018-09-22] MEDS ORDERED: Furosemide 40 MG Tablet PO SCH (09:00)
== END 2018-09-21 16:59 ==
LOC: PHED 15:56 → PHEDA 15:56 → PH3 20:37
PROVIDERS: ADMIT Internal Medicine; ATTEND Internal Medicine
DX: Z87.891 Personal history of nicotine dependence; F32.9 Major depressive disorder, single episode, unspecified; Z66 Do not resuscitate; N39.0 Urinary tract infection, site not specified; E11.621 Type 2 diabetes mellitus with foot ulcer; M86.671 Other chronic osteomyelitis, right ankle and foot; Z74.01 Bed confinement status; Z87.01 Personal history of pneumonia (recurrent); I13.0 Hypertensive heart and chronic kidney disease with heart failure and stage 1 through stage 4 chronic kidney disease, or unspecified chronic kidney disease; Z86.73 Personal history of transient ischemic attack (TIA), and cerebral infarction without residual deficits; E78.5 Hyperlipidemia, unspecified; N18.4 Chronic kidney disease, stage 4 (severe); N17.9 Acute kidney failure, unspecified; E11.69 Type 2 diabetes mellitus with other specified complication; Z68.41 Body mass index [BMI] 40.0-44.9, adult; E66.01 Morbid (severe) obesity due to excess calories; I51.3 Intracardiac thrombosis, not elsewhere classified; Z79.01 Long term (current) use of anticoagulants; B37.49 Other urogenital candidiasis; K21.9 Gastro-esophageal reflux disease without esophagitis; G93.40 Encephalopathy, unspecified; F03.90 Unspecified dementia, unspecified severity, without behavioral disturbance, psychotic disturbance, mood disturbance, and anxiety; L97.419 Non-pressure chronic ulcer of right heel and midfoot with unspecified severity; I50.32 Chronic diastolic (congestive) heart failure; Z86.14 Personal history of Methicillin resistant Staphylococcus aureus infection

== ENCOUNTER 2018-09-30 08:39 | Inpatient (IN) ==
[2018-09-30] MEDS ORDERED: Dextrose 50% in Water 50 ML Vial IV.PUSH PRN (09:31)
--- NOTE | 2018-09-30 09:40 | ED ---
HPI General Chief complaint: Diabetic Stated complaint: Diabetic Issue Time Seen by Provider: 09/30/18 09:09 History of Present Illness HPI narrative: This patient is sent from the care home due to high blood sugar and altered mental status. Patient cannot provide much in the way of history or review of systems due to being altered. He can whisper his name and the the current year but does not speak in sentences. Staff at the care home found him with quite elevated blood sugar. He reportedly had 12 units subcu regular prior to ambulance picking him up. Related Data Home Medications Medication Instructions Recorded Confirmed acetaminophen 650 mg AR Q6H PRN 08/31/18 09/30/18 bisacodyl 10 mg AR DAILY PRN 08/31/18 09/30/18 ipratropium-albuterol 3 ml INHALATION QID 08/31/18 09/30/18 lorazepam 1 mg PO Q1-2H PRN 08/31/18 09/30/18 Previous Rx's Medication Instructions Recorded aspirin 81 mg PO DAILY #30 tab 09/11/18 insulin aspart U-100 [Novolog 0 unit SUBCUT ACHS ml 09/11/18 U-100 Insulin aspart] insulin detemir U-100 [Levemir 18 unit SUBCUT HS ml 09/11/18 U-100 Insulin] enoxaparin [Lovenox] 140 mg SUBCUT Q12HR ml 09/20/18 furosemide [Lasix] 20 mg PO DAILY #30 tab 09/20/18 Allergies Allergy/AdvReac Type Severity Reaction Status Date / Time No Known Allergies Allergy Verified 08/31/18 16:18 Review of Systems ROS Unobtainable ROS Unobtainable: unobtainable due to mental status PMFSH Medical History Medical History Acute kidney failure (Acute) Chronic kidney disease (Acute) Osteomyelitis (Acute) MDRO (multiple drug resistant organisms) resistance (Acute ~08/31/18) Depression (Chronic) Diabetes (Chronic) Diabetes (Chronic) GERD (gastroesophageal reflux disease) (Chronic) HTN (hypertension) (Chronic) High cholesterol (Chronic) Neuropathy (Chronic) Obesity (Chronic) Social History Social History Substance History: No History of Abuse Second Hand Smoke Exposure: No Smoking Status: Unknown if ever smoked Tobacco Type: Cigarettes How Often Do You Have a Drink Containing Alcohol: Monthly or less Recent Travel in [facility] within the Last 8 Weeks: No Recent Out of Country Travel within the Last 8 Weeks: No Immunization History Tetanus Immunization: <5 Years Exam Narrative Exam Narrative: GENERAL: Well-nourished, well-developed patient in no apparent distress. SKIN: Focused skin assessment reveals no rash and nodules. Skin is Warm and dry. HEAD: Atraumatic. Normocephalic. EYES: Pupils equal and round. No scleral icterus. No injection or drainage. ENT: No nasal bleeding or discharge. Mucous membranes pink and moist. NECK: Trachea midline. No JVD. No meningeal signs CARDIOVASCULAR: Regular rate and rhythm. No murmur appreciated. RESPIRATORY: No accessory muscle use. Clear to auscultation. Breath sounds equal bilaterally. GASTROINTESTINAL: Abdomen soft, obese, non-tender, nondistended. Hepatic and splenic margins not palpable. Subcu bruising likely from insulin dosing on the abdominal wall. There is a dressing in the left upper quadrant likely from a feeding tube site MUSCULOSKELETAL: No obvious deformities. No clubbing. No cyanosis. No edema. NEUROLOGICAL: Awake and looking around but seems lethargic. Speaks and difficult to understand whispering. Normal gag reflex. Controlling his airway. Difficult to obtain accurate exam of motor strength and sensation given his limited to participation. PSYCHIATRIC: Appropriate mood and affect; insight and judgment reduced Course Initial Documented Vital Signs Temperature 99.1 F 09/30/18 08:45 Pulse Rate 106 H 09/30/18 08:45 Respiratory Rate 18 09/30/18 08:45 Blood Pressure 100/60 09/30/18 08:45 Pulse Oximetry 100 09/30/18 08:45 Last Documented Vital Signs Temperature 97.6 F 09/30/18 09:01 Pulse Rate 104 H 09/30/18 09:01 Respiratory Rate 20 09/30/18 09:01 Blood Pressure 106/58 L 09/30/18 10:35 Pulse Oximetry 100 09/30/18 10:35 Critical Care Time Critical Care Time: Yes Total Critical Care Time: 80 Attestation: Aggregate critical care time was 80 minutes. Time to perform other separately billable procedures was not included in the critical care time. My time did not include minutes spent treating any other patients simultaneously or on activities that did not directly contribute to the patient's treatment. The services I provided to this patient were to treat and/or prevent clinically significant deterioration that could result in: Hemorrhagic shock, cardiopulmonary arrest, loss of airway I provided critical care services requiring my management, as noted below: Chart data review, documentation time, medication orders and management, vital sign assessments/reviewing monitor data, ordering and reviewing lab tests, ordering and interpreting/reviewing x-rays and diagnostic studies, care of the patient and discussion of the patient with the admitting physicians. Medical Decision Making MDM Narrative Medical decision making narrative: 73-year-old male with hyperglycemia and altered mental status. I have ordered extensive workup for both of these problems. Giving him 12 units IV regular and 2 L normal saline IV bolus. Patient is critically ill with hypotension systolic blood pressure of 88. After 2 L of normal saline IV blood pressure is up to 106 systolic His hemoglobin is critically low at 5.8 Rectal exam reveals Hemoccult positive stool. I spoke with his sister in [place] who makes his medical decisions. She wishes to maintain DNR but otherwise aggressive care up to that point. She is okay with blood transfusion. This is not a hospice patient. He used to be but that was revoked last month. Patient will get 3 units of emergency release blood transfusion given his hypotension and critical nature of his illness. Chest x-ray shows a hint of interstitial prominence so I have set him up and we will need to watch for pulmonary edema. Metabolic studies revealed that he has acute kidney injury with creatinine up to 4.3. Greer catheter being placed to monitor fluid output. He does not have acute retention. Patient has mild DKA with a bicarbonate of 16. I reviewed with tube washer Dr. Denton Wu who knows this patient well. He will be considering adding insulin drip. I am giving an additional 8 units IV regular now. I gave 1 amp sodium bicarbonate. Patient is very complicated and critically ill and will be admitted to intensive care. His DNR will be respected. The sister who is making the medical decisions does not want to put him back in hospice. Medical Screen Exam Complete: Yes Emergency Medical Condition: Yes Lab Data Lab results reviewed: Yes I reviewed the patient's lab results. Lab results narrative: Critical hemoglobin of 5.8. DKA findings are on the metabolic profile Result diagrams: 09/30/18 10:03 09/30/18 10:03 Lab Results 12/06/18 12/06/18 12/06/18 Range/Units 10:03 10:03 10:29 WBC 16.5 H (4.0-11.0) th/mm3 RBC 1.86 L (4.50-5.90) mil/mm3 Hgb 5.8 L* (13.0-17.0) gm/dL Hct 18.0 L* (39.0-51.0) % MCV 96.7 (80.0-100.0) fL MCH 31.0 (27.0-34.0) pg MCHC 32.1 (32.0-36.0) % RDW 19.3 H (11.6-17.2) % Plt Count 314 D (150-450) th/mm3 MPV 9.6 (7.0-11.0) fL Prelim Diff (Auto) Slide review pending Neut % (Auto) 75.9 H (16.0-70.0) % Lymph % (Auto) 21.6 (9.0-44.0) % Lamar % (Auto) 2.1 (0.0-8.0) % Eos % (Auto) 0.0 (0.0-4.0) % Baso % (Auto) 0.4 (0.0-2.0) % Neut # (Auto) 12.5 H (1.8-7.7) th/mm3 Lymph # (Auto) 3.6 (1.0-4.8) th/mm3 Lamar # (Auto) 0.4 (0.0-0.9) th/mm3 Eos # (Auto) 0.0 (0.0-0.4) th/mm3 Baso # (Auto) 0.1 (0.0-0.2) th/mm3 Differential Comment . Puncture Site Patient Temperature O2 Saturation (90-100) % ABG pH (7.380-7.420) ABG pCO2 (38-42) mmHg ABG pO2 (61-120) mmHg ABG HCO3 (22-26) mmol/L ABG O2 Content (12.0-20.0) Vol % ABG Base Excess (-2-2) mmol/L ABG Methemoglobin (0-2) % Parker Test Hemoglobin (12.0-16.0) G/DL Carboxyhemoglobin (0-4) % O2 Delivery Device Liter Flow L/M Critical Value Sodium 128 L (136-145) meq/L Potassium 6.2 H (3.5-5.1) meq/L Chloride 94 L (98-107) meq/L Carbon Dioxide 16.0 L (21.0-32.0) meq/L Anion Gap 18 H (5-15) meq/L BUN 81 H (7-18) mg/dL Creatinine 4.33 H (0.60-1.30) mg/dL Estimated GFR 13 L (>89) mL/min POC Glucose (68-110) mg/dl Random Glucose 581 H* (74-106) mg/dL Calcium 7.6 L (8.5-10.1) mg/dL Total Bilirubin 0.3 (0.2-1.0) mg/dL AST 22 (15-37) U/L ALT 28 (12-78) U/L Alkaline Phosphatase 65 (45-117) U/L Total Protein 6.6 (6.4-8.2) g/dL Albumin 2.5 L (3.4-5.0) g/dL Beta-Hydroxybutyric Acd 0.54 H (0.00-0.39) mmol/L Urine Color Jacinta (Yellw/Straw) Urine Clarity Cloudy H (Clear) Urine pH 6.0 (5.0-8.5) Ur Specific [place] 1.013 (1.002-1.035) Urine Protein 500 or greater (Neg-Trace) mg/dL Urine Glucose (UA) 150 H (Negative) mg/dL Urine Ketones Negative (Negative) mg/dL Urine Occult Blood Small H (Negative) Urine Nitrate Negative (Negative) Urine Bilirubin Negative (Negative) Urine Urobilinogen Less than 2 (Less than 2) mg/dL Ur Leukocyte Esterase Large H (Negative) Urine RBC (0-3) /hpf Urine WBC (0-5) /hpf Urine WBC Clumps Many H (None) Urine Bacteria Many H (None) /hpf Urine Yeast Many H (None) /hpf Micro UA Comment Cath-culture ind Ur Microscopic Review Not Reportable Urine Culture Comments Cath-cult indicated 09/30/18 09/30/18 Range/Units 10:55 10:57 WBC (4.0-11.0) th/mm3 RBC (4.50-5.90) mil/mm3 Hgb (13.0-17.0) gm/dL Hct (39.0-51.0) % MCV (80.0-100.0) fL MCH (27.0-34.0) pg MCHC (32.0-36.0) % RDW (11.6-17.2) % Plt Count (150-450) th/mm3 MPV (7.0-11.0) fL Prelim Diff (Auto) Neut % (Auto) (16.0-70.0) % Lymph % (Auto) (9.0-44.0) % Lamar % (Auto) (0.0-8.0) % Eos % (Auto) (0.0-4.0) % Baso % (Auto) (0.0-2.0) % Neut # (Auto) (1.8-7.7) th/mm3 Lymph # (Auto) (1.0-4.8) th/mm3 Lamar # (Auto) (0.0-0.9) th/mm3 Eos # (Auto) (0.0-0.4) th/mm3 Baso # (Auto) (0.0-0.2) th/mm3 Differential Comment Puncture Site Right radial Patient Temperature 98.6 O2 Saturation 96 (90-100) % ABG pH 7.35 L (7.380-7.420) ABG pCO2 26 L (38-42) mmHg ABG pO2 127 H (61-120) mmHg ABG HCO3 14 L* (22-26) mmol/L ABG O2 Content 7.7 L (12.0-20.0) Vol % ABG Base Excess -10.4 L (-2-2) mmol/L ABG Methemoglobin 1.3 (0-2) % Parker Test Y Hemoglobin 5.5 L* (12.0-16.0) G/DL Carboxyhemoglobin 1.9 (0-4) % O2 Delivery Device Nasal cannula Liter Flow 2.00 L/M Critical Value Yes Sodium (136-145) meq/L Potassium (3.5-5.1) meq/L Chloride (98-107) meq/L Carbon Dioxide (21.0-32.0) meq/L Anion Gap (5-15) meq/L BUN (7-18) mg/dL Creatinine (0.60-1.30) mg/dL Estimated GFR (>89) mL/min POC Glucose Greater than 600 H* (68-110) mg/dl Random Glucose (74-106) mg/dL Calcium (8.5-10.1) mg/dL Total Bilirubin (0.2-1.0) mg/dL AST (15-37) U/L ALT (12-78) U/L Alkaline Phosphatase (45-117) U/L Total Protein (6.4-8.2) g/dL Albumin (3.4-5.0) g/dL Beta-Hydroxybutyric Acd (0.00-0.39) mmol/L Urine Color (Yellw/Straw) Urine Clarity (Clear) Urine pH (5.0-8.5) Ur Specific [place] (1.002-1.035) Urine Protein (Neg-Trace) mg/dL Urine Glucose (UA) (Negative) mg/dL Urine Ketones (Negative) mg/dL Urine Occult Blood (Negative) Urine Nitrate (Negative) Urine Bilirubin (Negative) Urine Urobilinogen (Less than 2) mg/dL Ur Leukocyte Esterase (Negative) Urine RBC (0-3) /hpf Urine WBC (0-5) /hpf Urine WBC Clumps (None) Urine Bacteria (None) /hpf Urine Yeast (None) /hpf Micro UA Comment Ur Microscopic Review Urine Culture Comments Imaging Data Attestation: I personally reviewed and interpreted this imaging study as follows : My impression: Chest x-ray shows a bit of vascular prominence. Radiologist's impression: Chest X-Ray 09/30/18 09:34 CONCLUSION: 1. Cardiomegaly with diffuse interstitial edema pattern. 2. Mild bibasilar airspace disease, presumably atelectasis. Discharge Plan Discharge Disposition Patient Disposition: ED Admit(ED Internal Use Only) Discharge Order Discharge Orders: ED Use Only Admit Order (Routine); Ordered 09/30/18 Ordered By: Paco Patel Discharge Details Diagnosis: JOSE (acute kidney injury), Morbid obesity, Altered mental state, Acute GI bleeding, DKA (diabetic ketoacidoses) Physicians Team ED Provider: Paco Patel Primary Care Provider: UNKNOWN, Rxs /Orders / Referrals /Forms Prescriptions: No Action acetaminophen 325 mg Suppository 650 mg AR Q6H PRN (Reason: Fever) RF: 0 ipratropium-albuterol 0.5 mg-3 mg(2.5 mg base)/3 mL Solution For Nebulization 3 ml INHALATION QID RF: 0 bisacodyl 10 mg Suppository 10 mg AR DAILY PRN (Reason: Anxiety) RF: 0 lorazepam 1 mg Tablet 1 mg PO Q1-2H PRN (Reason: Anxiety) RF: 0 insulin aspart U-100 [Novolog U-100 Insulin aspart] 100 unit/mL Solution subcut ACHS RF: 0 insulin detemir U-100 [Levemir U-100 Insulin] 100 unit/mL Solution 18 unit subcut HS RF: 0 aspirin 81 mg Tablet,Chewable 81 mg PO DAILY Qty: 30 RF: 0 enoxaparin [Lovenox] 150 mg/mL Syringe 140 mg subcut Q12HR RF: 0 furosemide [Lasix] 20 mg Tablet 20 mg PO DAILY Qty: 30 RF: 0 Discharge Interventions Interventions: Vital Signs Last Done: 09/30/18 10:35 Status ED Status: Admitted Patient
[2018-09-30] MEDS: Sod Chloride 0.9% Inj 1,000 ML IV.SIG SCH ×2 (09:48→10:38)
--- NOTE | 2018-09-30 10:05 | XR ---
EXAM DATE: 09/30/2018 10:01 AM EST AGE/SEX: 73 years / Male INDICATIONS: Short of breath. CLINICAL DATA: This is the patient's initial encounter. Patient reports that signs and symptoms have been present for 1 day and indicates a pain score of 0/10. MEDICAL/SURGICAL HISTORY: . Diabetes mellitus type II. Stroke. Gastroesophageal reflux disease. . Coronary artery stent. COMPARISON: [facility], CHEST 1V SINGLE AP, 08/31/2018. . FINDINGS: Mild diffuse interstitial prominence with mild airspace disease in the lung bases. Cardiac silhouette is enlarged with indistinct central pulmonary vascularity. Remainder of exam is unchanged. CONCLUSION: 1. Cardiomegaly with diffuse interstitial edema pattern. 2. Mild bibasilar airspace disease, presumably atelectasis. Electronically signed by: Philip Wilder MD 09/30/2018 10:04 AM EST
[2018-09-30 10:27] LABS: Baso # (Auto) 0.1 th/mm3 (0.0-0.2); Baso % (Auto) 0.4 % (0.0-2.0); Lymph # (Auto) 3.6 th/mm3 (1.0-4.8); Lymph % (Auto) 21.6 % (9.0-44.0); Mean Corpuscular HGB Conc 32.1 % (32.0-36.0); Mean Corpuscular Volume 96.7 fL (80.0-100.0); Mean Platelet Volume 9.6 fL (7.0-11.0); Mono # (Auto) 0.4 th/mm3 (0.0-0.9); Mono % (Auto) 2.1 % (0.0-8.0); Neut # (Auto) 12.5 th/mm3 (1.8-7.7); Neut % (Auto) 75.9 % (16.0-70.0); Platelet Count 314 th/mm3 (150-450); Red Blood Count 1.86 mil/mm3 (4.50-5.90); Red Cell Distribution Width 19.3 % (11.6-17.2); White Blood Count 16.5 th/mm3 (4.0-11.0)
[2018-09-30 10:35] LABS: Hemoglobin 5.8 gm/dL (13.0-17.0)
[2018-09-30 10:45] LABS: Anion Gap 18 meq/L (5-15)
[2018-09-30 10:58] LABS: Alanine Aminotransferase 28 U/L (12-78); Albumin 2.5 g/dL (3.4-5.0); Alkaline Phosphatase 65 U/L (45-117); Aspartate Aminotransferase 22 U/L (15-37); Beta Hydroxybutyric Acid 0.54 mmol/L (0.00-0.39); Blood Urea Nitrogen 81 mg/dL (7-18); Calcium 7.6 mg/dL (8.5-10.1); Chloride 94 meq/L (98-107); Glomerular Filtration Rate 13 mL/min (>89); Potassium 6.2 meq/L (3.5-5.1); Sodium 128 meq/L (136-145); Total Protein 6.6 g/dL (6.4-8.2)
[2018-09-30] MEDS ORDERED: Sodium Chlor 0.9% Inj 250 ML IV.SIG SCH (11:00)
[2018-09-30 11:02] LABS: Glucose,Random 581 mg/dL (74-106)
[2018-09-30 11:03] LABS: ABG Base Excess -10.4 mmol/L (-2-2); ABG PCO2 26 mmHg (38-42); ABG PO2 127 mmHg (61-120)
[2018-09-30] MEDS ORDERED: Sodium Bicarbonate 8.4% Inj 50 MEQ/50 ML Syringe IV.PUSH ONE (11:12)
[2018-09-30 11:20] LABS: Bacteria,Urine Many /hpf; Bilirubin,Urine Negative (Negative); Clarity,Urine Cloudy (Clear); Color,Urine Amber (Yellw/Straw); Glucose,Urine (UA) 150 mg/dL (Negative); Leukocyte Esterase,Urine Large (Negative); Nitrite,Urine Negative (Negative); Specific Gravity,Urine 1.013 (1.002-1.035)
[2018-09-30] MEDS ORDERED: Morphine Inj 4 MG/ML Vial IV.PUSH STA (12:24)
[2018-09-30 12:25] LABS: Lymphocytes 16 % (9-44); Metamyelocytes 1 % (0-1); Monocytes 1 % (0-8); Platelet Estimate Normal (Normal); Platelet Morphology Normal (Normal)
--- NOTE | 2018-09-30 13:04 | CT ---
EXAM DATE: 09/30/2018 12:56 PM EST AGE/SEX: 73 years / Male INDICATIONS: Altered mental status CLINICAL DATA: This is the patient's initial encounter. Patient reports that signs and symptoms have been present for 1 day and indicates a pain score of 0/10. MEDICAL/SURGICAL HISTORY: Chronic renal insufficiency. Diabetes. Hypertension. . Amputation foot RADIATION DOSE: 56.35 CTDI (mGy) COMPARISON: [facility] [place], 08/15/2018. . TECHNIQUE: CT of the head without contrast. Using automated exposure control and adjustment of the mA and/or kV according to patient size, radiation dose was kept as low as reasonably achievable to ob tain optimal diagnostic quality images. DICOM format image data is available electronically for revi ew and comparison. FINDINGS: Cerebrum: The ventricles and cortical sulci are widened. There is stable encephalomalacia seen in t he left frontal lobe. There is an old lacunar infarct at the medial right basal ganglia. No evidence of midline shift, mass lesion, hemorrhage or acute infarction. No extraaxial fluid collections are seen. Posterior Fossa: The cerebellum and brainstem are intact. The 4th ventricle is midline. The cerebe llopontine angle is unremarkable. Extracranial: The visualized portion of the orbits is intact. Skull: The calvaria is intact. No evidence of skull fracture. CONCLUSION: 1. No acute intracranial abnormality. 2. Age-related atrophy. 3. Stable encephalization at the left frontal lobe. . Electronically signed by: Xander Chowdhury MD 09/30/2018 1:03 PM EST
--- NOTE | 2018-09-30 13:11 | P.HPCC ---
History of Present Illness Service: Critical care medicine Primary Care Physician: UNKNOWN Chief Complaint: altered mental status History of Present Illness: This is a 73yM with history of CHF, COPD, and recently hospitalized for a prolonged hospital course which included repeat intubations and mechanical ventilation and ultimately led to a discharge to Hospice care. Apparently, he was taken off hospice care by his sister and now presents with acute altered mental status and active GI bleeding. his hgb is 5, he is actively being transfused prbc. in addition, his glucose is greater than 600, he has severe metabolic acidosis, is in DKA. He is quite pale, in distress. he is altered and confused but he does say he is hurting. I asked Belle Ryley from [facility] to come assist me in his evaluation and management because she has a long relationship with Mr. Meléndez as well as his two sisters. After we examined the patient, we discussed his care with his healthcare proxy, Lindsey. I explained that we would likely push him into pulmonary edema with all the massive blood product transfusion we would be required to give him, and he appears in distress. Lindsey wishes to transition to comfort oriented goals, which would be consistent with the patient's wishes as he expressed them on his last hospital admission. ROS is unobtainable from the patient. Inpatient Certification: I certify that the inpatient services were ordered in accordance with Medicare regulations governing the order. This includes certification that hospital inpatient services are reasonable and necessary and in the case of services not specified as inpatient-only under 42 CFR 419.22(n), that they are appropriately provided as inpatient services in accordance to with the 2-midnight benchmark under 43 CFR 412.3(e) Estimated Total Length of Stay (Days): 7 Plans for Post Hospital Care: Not yet determined Review of Systems unobtainable due to mental status PMFSH - History History Provided By: Family Member, Medical Record - Medical / Surgical Hx Neg / Unobtainable Medical Problems Denied: Unable to Obtain Surgical History: Unable to Obtain - Medical History Medical History: Medical History (Last Reviewed 09/30/18 @ 16:22 by Sanjeev Wu MD) Acute kidney failure Chronic kidney disease Osteomyelitis MDRO (multiple drug resistant organisms) resistance Onset Date: ~08/31/18 Depression Diabetes Diabetes GERD (gastroesophageal reflux disease) HTN (hypertension) High cholesterol Neuropathy Obesity - Family History Family History: Family History (Last Reviewed 09/30/18 @ 16:22 by Sanjeev Wu MD) Father Malignancy - Social History I have reviewed the patient's Social History: Yes - Tobacco History Second Hand Smoke Exposure: No Tobacco Use In Past 30 Days: No Smoking Status: Unknown if ever smoked Tobacco Type: Cigarettes - Alcohol History How Often Do You Have a Drink Containing Alcohol: Monthly or less - Substance Use History Substance History: No History of Abuse - Travel History Recent Travel in the [place] Within the Last 8 Weeks: No Recent Travel Out of the Country Within the Last 8 Weeks: No - Immunization History Tetanus Immunization: <5 Years Medications and Allergies Active Medications: Active Medications Albuterol (Duoneb Neb (Prn)) 1 ampul NEB Q2HR NEB PRN PRN Reason: WHEEZING Chlorhexidine Gluconate (Chlorhexidine 2% Cloth) 3 pack TOPICAL DAILY@0400 SHAHEED Stop: 10/06/18 03:59 Chlorhexidine Gluconate (Chlorhexidine 2% Cloth) 3 pack TOPICAL DAILY@0400 PRN PRN Reason: Extra cloth needed Stop: 10/06/18 03:59 Dextrose (D50w Vial) 50 ml IV.PUSH UNSCH PRN PRN Reason: PER HYPOGLYCEMIA PROTOCOL Sodium Chloride (Ns Inj) 250 mls @ 15 mls/hr IV.SIG ONCE SHAHEED Stop: 10/01/18 03:39 Last Admin: 09/30/18 12:27 Dose: Not Given Lorazepam (Ativan Inj) 2 mg IV.PUSH Q30M PRN PRN Reason: see below Morphine Sulfate (Morphine Inj) 4 mg IV.PUSH Q30M PRN PRN Reason: see below Ondansetron HCl (Zofran Inj) 4 mg IV.PUSH Q6H PRN PRN Reason: NAUSEA OR VOMITING Sodium Chloride (Ns Flush) 2 ml IV.FLUSH PRN PRN PRN Reason: FLUSH AFTER USING IV ACCESS Sodium Chloride (Ns Flush) 2 ml IV.FLUSH UNSCH PRN PRN Reason: FLUSH AFTER USING IV ACCESS Allergies Allergy/AdvReac Type Severity Reaction Status Date / Time No Known Allergies Allergy Verified 08/31/18 16:18 Home Medications Medication Instructions Recorded Confirmed Type acetaminophen 650 mg TX Q6H PRN 08/31/18 09/30/18 History bisacodyl 10 mg TX DAILY PRN 08/31/18 09/30/18 History ipratropium-albuterol 3 ml INHALATION QID 08/31/18 09/30/18 History lorazepam 1 mg PO Q1-2H PRN 08/31/18 09/30/18 History Results - Labs CBC & Chem 7: 09/30/18 10:03 09/30/18 10:03 Labs: Short CBC 09/30/18 Range/Units 10:03 WBC 16.5 H (4.0-11.0) th/mm3 Hgb 5.8 L* (13.0-17.0) gm/dL Hct 18.0 L* (39.0-51.0) % Plt Count 314 D (150-450) th/mm3 BMP 09/30/18 10:03 Sodium 128 L Potassium 6.2 H Chloride 94 L Carbon Dioxide 16.0 L BUN 81 H Creatinine 4.33 H Calcium 7.6 L Liver Function 09/30/18 Range/Units 10:03 Total Bilirubin 0.3 (0.2-1.0) mg/dL AST 22 (15-37) U/L ALT 28 (12-78) U/L Alkaline Phosphatase 65 (45-117) U/L Albumin 2.5 L (3.4-5.0) g/dL Urine 09/30/18 Range/Units 10:29 Urine Color Jacinta (Yellw/Straw) Urine Clarity Cloudy H (Clear) Urine pH 6.0 (5.0-8.5) Ur Specific [place] 1.013 (1.002-1.035) Urine Protein 500 or greater (Neg-Trace) mg/dL Urine Glucose (UA) 150 H (Negative) mg/dL - Imaging Impressions Chest X-Ray 09/30/18 09:34 CONCLUSION: 1. Cardiomegaly with diffuse interstitial edema pattern. 2. Mild bibasilar airspace disease, presumably atelectasis. Head CT 09/30/18 09:34 CONCLUSION: 1. No acute intracranial abnormality. 2. Age-related atrophy. 3. Stable encephalization at the left frontal lobe. . Exam Vital signs: Vital Signs 09/30/18 08:45 09/30/18 09:01 09/30/18 10:35 Temperature 37.3 C 36.4 C Pulse Rate 106 H 104 H Respiratory Rate 18 20 Blood Pressure 100/60 88/54 L 106/58 L Pulse Oximetry 100 100 100 09/30/18 11:26 09/30/18 11:40 Temperature 36.4 C L Pulse Rate 97 H 93 H Respiratory Rate 18 18 Blood Pressure 114/58 L 144/62 H Pulse Oximetry 100 Intake & Output 09/29/18 09/30/18 09/30/18 18:59 06:59 18:59 Intake Total 1000 / 1000 Balance 1000 / 1000 Weight 81.647 kg Intake: IV 1000 / 1000 NS Inj 1,000 ML @ 2000 mls/hr 1000 / 1000 IV.SIG Q30M SHAHEED Rx#:[id number] Intake (Blood Product) Amt 0 / 0 Rbc As-3 Leukoreduced Unit 0 / 0 [id number] Rbc As-3 Leukoreduced Unit 0 / 0 [id number] Rbc As-3 Leukoreduced Unit 0 / 0 [id number] Narrative: GENERAL: obese elderly male, lying in bed, in severe distress. HEENT: Normocephalic. Atraumatic. Pupils equal, round, reactive, conjugate. Mucous membranes are dry. conjunctiva are pale. NECK: Trachea is midline. There is no JVD. large neck circumference. CHEST: equal chest rise. nc o2. CARDIOVASCULAR: normal rate, regular rhythm. ABDOMEN: Soft, obese, nontender, nondistended. No guarding. MUSCULOSKELETAL: Pulses 2+. 1+ edema. right lower extremity wrapped at the ankle in Kerlix. compared to my prior knowledge of the patient, his RLE appears to have improved ulceration from last hospitalization. NEUROLOGICAL: RASS -3. does arouse weakly to voice and sternal rub. weakly follows commands. protects airway. Caprini VTE Risk Assessment Caprini VTE Risk Assessment: Moderate/High Risk (score >= 2) VTE Pharmacological Exception Reason: Hemorrhage Caprini Risk Assessment Model: Point Value = 1 Point Value = 2 Point Value = 3 Point Value = 5 Age 41-60 Minor surgery BMI > 25 kg/m2 Swollen legs Varicose veins or History of unexplained or recurrent spontaneous Oral contraceptives or hormone replacement Sepsis (< 1 month) Serious lung disease, including pneumonia (< 1 month) Abnormal pulmonary function Acute myocardial infarction Congestive heart failure (< 1 month) History of inflammatory bowel disease Medical patient at bed rest Age 61-74 Arthroscopic surgery Major open surgery (> 45 min) Laparoscopic surgery (> 45 min) Malignancy Confined to bed (> 72 hours) Immobilizing plaster cast Central venous access Age >= 75 History of VTE Family history of VTE Factor V Leiden Prothrombin [id number] Lupus anticoagulant Anticardiolipin antibodies Elevated serum homocysteine Heparin-induced thrombocytopenia Other congenital or acquired thrombophilia Stroke (< 1 month) Elective arthroplasty Hip, pelvis, or leg fracture Acute spinal cord injury (< 1 month) Prophylaxis Regimen: Total Risk Factor Score Risk Level Prophylaxis Regimen 0-1 Low Early ambulation 2 Moderate Order ONE of the following: *Sequential Compression Device (SCD) *Heparin 5000 units SQ BID 3-4 Higher Order ONE of the following medications: *Heparin 5000 units SQ TID *Enoxaparin/Lovenox 40 mg SQ daily (WT < 150 kg, CrCl > 30 mL/min) *Enoxaparin/Lovenox 30 mg SQ daily (WT < 150 kg, CrCl > 10-29 mL/min) *Enoxaparin/Lovenox 30 mg SQ BID (WT < 150 kg, CrCl > 30 mL/min) AND/OR *Sequential Compression Device (SCD) 5 or more Highest Order ONE of the following medications: *Heparin 5000 units SQ TID (Preferred with Epidurals) *Enoxaparin/Lovenox 40 mg SQ daily (WT < 150 kg, CrCl > 30 mL/min) *Enoxaparin/Lovenox 30 mg SQ daily (WT < 150 kg, CrCl > 10-29 mL/min) *Enoxaparin/Lovenox 30 mg SQ BID (WT < 150 kg, CrCl > 30 mL/min) AND *Sequential Compression Device (SCD) Assessment and Plan - Assessment and Plan Plan: Assessment: 73yM with multiple acute and chronic medical problems now admitted with active GI bleed, severe anemia. critically ill. medical decision-maker wishes to transition to hospice care, which is appropriate and congruent with my understanding of the patient's overall goals of care as expressed during his last hospitalization. Active Problems: Acute metabolic encephalopathy Acute CHF exacerbation, mixed type Severe anemia secondary to acute blood loss Active GI bleed Plan: morphine and ativan prn for pain or anxiety hospice consult. s/p 3 units prbc f/u [facility] palliative care consult.
[2018-09-30] MEDS: Morphine Inj 4 MG/ML Vial IV.PUSH PRN ×5 (14:23→18:45)
[2018-09-30 15:26] VITALS: TEMP 97.7
--- NOTE | 2018-09-30 16:39 | ECG ---
Date Performed: 09/30/2018 Time Performed: 08:53:10 PTAGE: 73 years EKG: SINUS TACHYCARDIA WITH FIRST DEGREE AV BLOCK LEFT ATRIAL ENLARGEMENT LEFT BUNDLE BRANCH BLO CK MARKED ST DEPRESSION, CONSIDER SUBENDOCARDIAL INJURY Compared to previous tracing, there's been m arked widening of the QRS complex. Patient has both ST segment depression and elevation in the high l ateral wall. The ST depression is lateral. Marked serial changes have occurred, and the EKG is highly suggestive of myocardial ischemia and possibly an ST segment elevation infarct in the setting of the conduction delay. Clinical correlation will be imperative. ABNORMAL ECG NO PREVIOUS TRACING DOCTOR: Sarah Louis Interpretating Date/Time 09/30/2018 16:37:24
--- NOTE | 2018-09-30 17:59 | P.CONPAL ---
Consult Service: Palliative Care Requesting Physician: Sanjeev Wu Reason for Consult: a. To assist with evaluation and management of symptoms including: anxiety, pain. b. To assist medical decision maker(s) with: better understanding of current medical conditions; weighing benefits/burdens of medical treatment options; making medical treatment decisions. Primary Care Provider: UNKNOWN History of Present Illness History of Present Illness: Mr. Meléndez is a 73 year old male with past medical history of CHF, COPD, hypertension, hyperlipidemia, diabetes, peripheral neuropathy, morbid obesity and left lower extremity wound infection + MRSA. Patient was previously admitted from home to [facility] with pneumonia in May 2018, discharged to [facility]. He was hospitalized from 08/06/18-08/20/18 with hypoxia requiring mech vent, osteomyelitis. Palliative care was following patient during this admission. Patient elected hospice services after he was medically extubated, he was transferred to [facility]. His family later revoked hospice services and sent the patient back to [place] on 09/01/18. He was discharged to [facility] on 09/21/18. Since that time patient has been bedbound, eating very little and sleeping more. Patient presented to [facility] ER on 09/30/18 for evaluation of high blood sugar and altered mental status. Initial evaluation revealed: * WBC 16.5, hemoglobin 5.8, hematocrit 18.0, platelets 314, neutrophils 75.9% * Sodium 128, potassium 6.2, BUN 18, creatinine 4.33, GFR 13, glucose > 600 * Total 6.6, Albumin 2.5 * Lactic acid 1.7 * Urinalysis - + blood and leukocyte esterase, culture pending * Head CT - no acute intracranial abnormality, age-related atrophy, stable encephalization at left frontal lobe. * CXR - Cardiomegaly with diffuse interstitial edema pattern, mild bibasilar airspace disease, presumably atelectasis. * EKG - sinus tachycardia with first degree AV block, left atrial enlargement, LBBB with marked ST depression, consider subendocardial injury. Patient was admitted to ICU with severe metabolic acidosis, DKA, renal failure. Palliative care was consulted to assist with further clarification of goals of medical treatment. Dr. Wu and I saw patient in the emergency department. Patient was lethargic, oriented to self and place. He indicated he was in pain, he was unable to quantify or qualify pain. He denied abdominal pain and feel off to sleep. He is not capacitated to make his own health care decisions. Dr. Wu and I called his health care surrogate, Lindsey and then his other sister, Frances to provide medical update. After lengthy conversation regarding current medical condition and problems, Lindsey supported by his sister Frances agreed to comfort measures with hospice support. Both sisters wanted to ensure he was not in any pain and were worried about him having anxiety. We agreed to provide pain and anxiety medication in keeping with their wishes. Hospice consulted, awaiting consents from family out of state. Function/Cognitive Trajectory: Bedbound, dependent for all care. Eating very little prior to admission and sleeping more. Review of Systems limited ROS per pt due to lethargy Constitutional: Reports anorexia, Reports daytime sleepiness, Reports fatigue, Reports lack of energy Cardiovascular: Reports shortness of breath Respiratory: Reports shortness of breath Genitourinary: Reports decreased urination Musculoskeletal: Reports muscle weakness Neurologic: Reports weakness, Reports other (bedbound) Psychiatric: Reports anxiety, Reports confusion, Reports other (lethargy) Hematologic/Lymphatic: Reports easy bruising PMFSH - History History Provided By: Family Member, Medical Record - Medical / Surgical Hx Neg / Unobtainable Medical Problems Denied: Unable to Obtain - Medical History Medical History: Medical History (Last Reviewed 09/30/18 @ 16:22 by Sanjeev Wu MD) Acute kidney failure Chronic kidney disease Osteomyelitis MDRO (multiple drug resistant organisms) resistance Onset Date: ~08/31/18 Depression Diabetes Diabetes GERD (gastroesophageal reflux disease) HTN (hypertension) High cholesterol Neuropathy Obesity - Family History Family History: Family History (Last Reviewed 09/30/18 @ 16:22 by Sanjeev Wu MD) Father Malignancy - Social History I have reviewed the patient's Social History: Yes - Tobacco History Second Hand Smoke Exposure: No Tobacco Use In Past 30 Days: No Smoking Status: Unknown if ever smoked Tobacco Type: Cigarettes - Alcohol History How Often Do You Have a Drink Containing Alcohol: Monthly or less - Substance Use History Substance History: No History of Abuse - Travel History Recent Travel in the [place] Within the Last 8 Weeks: No Recent Travel Out of the Country Within the Last 8 Weeks: No - Immunization History Tetanus Immunization: <5 Years Hx Influenza Vaccine This Season: Unable to Assess Medications and Allergies Active Medications: Active Medications Albuterol (Duoneb Neb (Prn)) 1 ampul NEB Q2HR NEB PRN PRN Reason: WHEEZING Chlorhexidine Gluconate (Chlorhexidine 2% Cloth) 3 pack TOPICAL DAILY@0400 SHAHEED Stop: 10/06/18 03:59 Chlorhexidine Gluconate (Chlorhexidine 2% Cloth) 3 pack TOPICAL DAILY@0400 PRN PRN Reason: Extra cloth needed Stop: 10/06/18 03:59 Dextrose (D50w Vial) 50 ml IV.PUSH UNSCH PRN PRN Reason: PER HYPOGLYCEMIA PROTOCOL Sodium Chloride (Ns Inj) 250 mls @ 15 mls/hr IV.SIG ONCE SHAHEED Stop: 10/01/18 03:39 Last Admin: 09/30/18 12:27 Dose: Not Given Lorazepam (Ativan Inj) 2 mg IV.PUSH Q30M PRN PRN Reason: see below Last Admin: 09/30/18 15:38 Dose: 2 mg Morphine Sulfate (Morphine Inj) 4 mg IV.PUSH Q30M PRN PRN Reason: see below Last Admin: 09/30/18 15:37 Dose: 4 mg Ondansetron HCl (Zofran Inj) 4 mg IV.PUSH Q6H PRN PRN Reason: NAUSEA OR VOMITING Sodium Chloride (Ns Flush) 2 ml IV.FLUSH PRN PRN PRN Reason: FLUSH AFTER USING IV ACCESS Sodium Chloride (Ns Flush) 2 ml IV.FLUSH UNSCH PRN PRN Reason: FLUSH AFTER USING IV ACCESS Allergies Allergy/AdvReac Type Severity Reaction Status Date / Time No Known Allergies Allergy Verified 08/31/18 16:18 Home Medications Medication Instructions Recorded Confirmed Type acetaminophen 650 mg NE Q6H PRN 08/31/18 09/30/18 History bisacodyl 10 mg NE DAILY PRN 08/31/18 09/30/18 History ipratropium-albuterol 3 ml INHALATION QID 08/31/18 09/30/18 History lorazepam 1 mg PO Q1-2H PRN 08/31/18 09/30/18 History Advance Directives Advance Directives Date on File: 06/15/18 Living Will: Unknown Healthcare Surrogate: Yes Health Care Surrogate Name and Number: Lindsey Chand, sister: [phone] Power of Heater Helper: Unknown Documented care wishes: Patient elected NO CODE (DNR/DNI) on last admission. Today's verbally stated goals: Patient is not capacitated to make his own health care decisions, not expected to regain capacity. Family/friends goals: Sister/HCS Lindsey has elected comfort measures with hospice support. Ethical and Legal Issues: Patient is not capacitated to make his own health care decisions, not expected to regain capacity. Called [facility] to see if they have any written advance directives, copy of written designation of health care surrogate received dated 06/15/18 naming his sister, Lindsey Chand as health care surrogate # [phone]. Physical Exam Vital Signs: Vital Signs - 24 hr 09/30/18 08:45 09/30/18 09:01 09/30/18 10:35 Temperature 99.1 F 97.6 F Pulse Rate 106 H 104 H Respiratory Rate 18 20 Blood Pressure 100/60 88/54 L 106/58 L Pulse Oximetry 100 100 100 09/30/18 11:26 09/30/18 11:40 09/30/18 13:54 Temperature 97.5 F L Pulse Rate 97 H 93 H Respiratory Rate 18 18 16 Blood Pressure 114/58 L 144/62 H Pulse Oximetry 100 09/30/18 14:00 Temperature 97.7 F Pulse Rate 111 H Respiratory Rate 14 Blood Pressure 116/57 L Pulse Oximetry 96 I&O: Intake & Output 09/28/18 09/29/18 09/30/18 10/01/18 06:59 06:59 06:59 06:59 Intake Total 2099 Balance 2099 Weight 147.5 kg Physical Exam: CONSTITUTIONAL/GENERAL: This is an ill appearing male who is much thinner than prior admission, with muscle wasting. TUBES/LINES/DRAINS: NC oxygen, right midline, PIV left, Greer (no urine output) , podus boots in place. SKIN: No jaundice, rashes, or lesions. Ecchymoses on upper extremities. Dressing on right foot. Skin temperature cool. HEAD: Atraumatic. Normocephalic. EYES: Pupils equal and round and reactive. Conjunctiva pale. ENT: Hearing grossly normal. Nose without bleeding or purulent drainage. Mucous membranes dry. NECK: Trachea midline. CARDIOVASCULAR: Distant heart sounds. Regular rate and rhythm without murmurs. RESPIRATORY/CHEST: Diminished breath sounds bilaterally. GASTROINTESTINAL: Abdomen soft, non-tender, protuberant, No guarding. GENITOURINARY: Without palpable bladder distension. Greer catheter in place, no UOP. MUSCULOSKELETAL: Extremities with1+ edema. Dressing right foot to ankle, clean and dry. LYMPHATICS: Not examined. NEUROLOGICAL: Awakens briefly. Weakly follows some commands, answers some questions with 1 word answers. Falls off to sleep. Moves all extremities. PSYCHIATRIC: Lethargic. Diagnostic Tests Laboratory: Laboratory Results - last 72 hr 09/30/18 09/30/18 09/30/18 10:03 10:03 10:29 WBC 16.5 H RBC 1.86 L Hgb 5.8 L* Hct 18.0 L* MCV 96.7 MCH 31.0 MCHC 32.1 RDW 19.3 H Plt Count 314 D MPV 9.6 Prelim Diff (Auto) Slide review pending Neut % (Auto) 75.9 H Lymph % (Auto) 21.6 Johnston % (Auto) 2.1 Eos % (Auto) 0.0 Baso % (Auto) 0.4 Neut # (Auto) 12.5 H Lymph # (Auto) 3.6 Johnston # (Auto) 0.4 Eos # (Auto) 0.0 Baso # (Auto) 0.1 WBC Differential Manual diff final Seg Neuts % (Manual) 68 Band Neuts % (Manual) 14 H Lymphocytes % (Manual) 16 Monocytes % (Manual) 1 Metamyelocytes % (Man) 1 Abs Neuts (Manual) 13.7 H Differential Comment . Platelet Estimate Normal Platelet Morphology Normal Puncture Site Patient Temperature O2 Saturation ABG pH ABG pCO2 ABG pO2 ABG HCO3 ABG O2 Content ABG Base Excess ABG Methemoglobin Parker Test Hemoglobin Carboxyhemoglobin O2 Delivery Device Liter Flow Critical Value Sodium 128 L Potassium 6.2 H Chloride 94 L Carbon Dioxide 16.0 L Anion Gap 18 H BUN 81 H Creatinine 4.33 H Estimated GFR 13 L POC Glucose Random Glucose 581 H* Calcium 7.6 L Total Bilirubin 0.3 AST 22 ALT 28 Alkaline Phosphatase 65 Total Protein 6.6 Albumin 2.5 L Beta-Hydroxybutyric Acd 0.54 H Urine Color Jacinta Urine Clarity Cloudy H Urine pH 6.0 Ur Specific [place] 1.013 Urine Protein 500 or greater Urine Glucose (UA) 150 H Urine Ketones Negative Urine Occult Blood Small H Urine Nitrate Negative Urine Bilirubin Negative Urine Urobilinogen Less than 2 Ur Leukocyte Esterase Large H Urine RBC Urine WBC Urine WBC Clumps Many H Urine Bacteria Many H Urine Yeast Many H Micro UA Comment Cath-culture ind Ur Microscopic Review Not Reportable Urine Culture Comments Cath-cult indicated Blood Type Blood Type Recheck Antibody Screen MTS Gel Crossmatch Bld Prod Order Comment 09/30/18 09/30/18 09/30/18 10:55 10:57 11:00 WBC RBC Hgb Hct MCV MCH MCHC RDW Plt Count MPV Prelim Diff (Auto) Neut % (Auto) Lymph % (Auto) Johnston % (Auto) Eos % (Auto) Baso % (Auto) Neut # (Auto) Lymph # (Auto) Johnston # (Auto) Eos # (Auto) Baso # (Auto) WBC Differential Seg Neuts % (Manual) Band Neuts % (Manual) Lymphocytes % (Manual) Monocytes % (Manual) Metamyelocytes % (Man) Abs Neuts (Manual) Differential Comment Platelet Estimate Platelet Morphology Puncture Site Right radial Patient Temperature 98.6 O2 Saturation 96 ABG pH 7.35 L ABG pCO2 26 L ABG pO2 127 H ABG HCO3 14 L* ABG O2 Content 7.7 L ABG Base Excess -10.4 L ABG Methemoglobin 1.3 Parker Test Y Hemoglobin 5.5 L* Carboxyhemoglobin 1.9 O2 Delivery Device Nasal cannula Liter Flow 2.00 Critical Value Yes Sodium Potassium Chloride Carbon Dioxide Anion Gap BUN Creatinine Estimated GFR POC Glucose Greater than 600 H* Random Glucose Calcium Total Bilirubin AST ALT Alkaline Phosphatase Total Protein Albumin Beta-Hydroxybutyric Acd Urine Color Urine Clarity Urine pH Ur Specific [place] Urine Protein Urine Glucose (UA) Urine Ketones Urine Occult Blood Urine Nitrate Urine Bilirubin Urine Urobilinogen Ur Leukocyte Esterase Urine RBC Urine WBC Urine WBC Clumps Urine Bacteria Urine Yeast Micro UA Comment Ur Microscopic Review Urine Culture Comments Blood Type Blood Type Recheck Antibody Screen MTS Gel Crossmatch See Detail Bld Prod Order Comment 09/30/18 09/30/18 11:20 13:39 WBC RBC Hgb Hct MCV MCH MCHC RDW Plt Count MPV Prelim Diff (Auto) Neut % (Auto) Lymph % (Auto) Johnston % (Auto) Eos % (Auto) Baso % (Auto) Neut # (Auto) Lymph # (Auto) Johnston # (Auto) Eos # (Auto) Baso # (Auto) WBC Differential Seg Neuts % (Manual) Band Neuts % (Manual) Lymphocytes % (Manual) Monocytes % (Manual) Metamyelocytes % (Man) Abs Neuts (Manual) Differential Comment Platelet Estimate Platelet Morphology Puncture Site Patient Temperature O2 Saturation ABG pH ABG pCO2 ABG pO2 ABG HCO3 ABG O2 Content ABG Base Excess ABG Methemoglobin Parker Test Hemoglobin Carboxyhemoglobin O2 Delivery Device Liter Flow Critical Value Sodium Potassium Chloride Carbon Dioxide Anion Gap BUN Creatinine Estimated GFR POC Glucose 463 H* Random Glucose Calcium Total Bilirubin AST ALT Alkaline Phosphatase Total Protein Albumin Beta-Hydroxybutyric Acd Urine Color Urine Clarity Urine pH Ur Specific [place] Urine Protein Urine Glucose (UA) Urine Ketones Urine Occult Blood Urine Nitrate Urine Bilirubin Urine Urobilinogen Ur Leukocyte Esterase Urine RBC Urine WBC Urine WBC Clumps Urine Bacteria Urine Yeast Micro UA Comment Ur Microscopic Review Urine Culture Comments Blood Type A Negative Blood Type Recheck Required Antibody Screen Negative MTS Gel Crossmatch See Detail Bld Prod Order Comment Result Diagrams: 09/30/18 10:03 09/30/18 10:03 Imaging: Chest X-Ray 09/30/18 09:34 CONCLUSION: 1. Cardiomegaly with diffuse interstitial edema pattern. 2. Mild bibasilar airspace disease, presumably atelectasis. Head CT 09/30/18 09:34 CONCLUSION: 1. No acute intracranial abnormality. 2. Age-related atrophy. 3. Stable encephalization at the left frontal lobe. . Patient/Family Conference Present at Family Conference: Dr. Wu and I spoke with sister/ HCS, Lindsey and later sister, Frances via phone. Family Conference Time: 60 Family Conference Location: Telephone Issues Discussed: * Palliative care role, purpose, approach * Additional medical, psychosocial, and spiritual history * Patients general health, functional status, and cognitive changes in the months leading up to the current hospitalization * Patient/family understanding of the current medical problems * Patient/family understanding of prognosis * Patients goals of care as best understood from advance directives and/or conversations and/or values * Current medical treatment options and benefits/burdens of those options * Likely scenarios comparing ongoing aggressive care with a transition to comfort measures only * Questions answered to the best of my ability * Palliative care contact information provided Both sisters want to ensure patient is comfortable, they desire comfort measures with hospice support. Assessment and Plan - Disease Oriented Problem List (1) Diastolic heart failure (2) Debility (3) UTI (urinary tract infection) (4) Chronic kidney disease (5) Acute GI bleeding (6) DKA (diabetic ketoacidoses) (7) Hyperkalemia - Symptom Scale (1) Anxiety 0-10 Scale: Unable to quantify (2) Pain 0-10 Scale: Unable to quantify Pertinent Non-Medical Issues: Psychosocial: . Supported by his 2 sisters, Lindsey and Frances who live in [place]. Spiritual: None. Legal:Patient is not capacitated to make his own health care decisions, uncertain if he will regain capacity. Called [facility] to see if they have any written advance directives, copy of written designation of health care surrogate received dated 06/15/18 naming his sister, Lindsey Chand as health care surrogate # [phone]. Ethical issues impacting care: No known concerns at this time. Important Contacts: * Lindsey Chand, sister/ [facility]: [phone] * Ria CliveTori, sister: [phone] Prognosis: Patient is terminal, PPS 10, prognosis hours to days. Code Status: No Code DNR Plan: * Patient is not capacitated to make his own health care decisions, uncertain if he will regain capacity. Called [facility] to see if they have any written advance directives, copy of written designation of health care surrogate received dated 06/15/18 naming his sister, Lindsey Chand as health care surrogate # [phone]. * NO CODE - [place] DNR on chart * Dr. Wu and I saw patient in the emergency department. Patient was lethargic, oriented to self and place. He indicated he was in pain, he was unable to quantify or qualify pain. He denied abdominal pain and feel off to sleep. He is not capacitated to make his own health care decisions. Dr. Wu and I called his health care surrogate, Lindsey and then his other sister, Frances to provide medical update. After lengthy conversation regarding current medical condition and problems, Lindsey supported by his sister Frances agreed to comfort measures with hospice support. Both sisters wanted to ensure he was not in any pain and were worried about him having anxiety. We agreed to provide pain and anxiety medication in keeping with their wishes. * Hospice consulted, awaiting consents from family out of state. Family requests care center placement, [facility] as they do not want him to go back to [facility] as sister Frances was not pleased with last experience. * Discussed with Dr. Wu, nursing staff in ED and ICU, hospice admission team. * SYMPTOMS: Pain: due to chronic debility, wounds, etc. Reports pain, unable to quantify or qualify. Dr. Wu ordered ATC and PRN Morphine. Anxiety: history of anxiety, SOB/ anxiety due to anemia. ATC and PRN Lorazepam ordered. * Palliative care number provided. * Palliative care will continue to follow to assist with symptom management and clarification of goals of medical treatment as needed. Appreciation Thank you for the opportunity to participate in the care of Armando Meléndez. Attestation Attestation: To help prompt me to consider important information that might be impacting today's encounter and assessment, information from prior notes written by myself or my colleagues may have been "brought forward" into today's note. My signature on this note, however, is an attestation that I personally performed the exam, history, and/or decision-making noted today, and, unless otherwise indicated, the interactions with patient, family, and staff as well as the review of records all occurred today. I also attest that the listed assessment and stated plan reflect my best clinical judgment today based on the combination of historical information, prior notes, and today's exam/ interactions. 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
[2018-09-30] MEDS ORDERED: Morphine Inj 4 MG/ML Vial IV.PUSH SCH (19:15)
[2018-09-30 20:47] VITALS: BP 98/55; PULSE 97; RESP 20; O2SAT 82
[2018-10-01] MEDS ORDERED: Chlorhexidine Gluconate 2% 1 Pack (2 Cloths) TOPICAL PRN (04:00)
[2018-10-01] MEDS ORDERED: Chlorhexidine Gluconate 2% 1 Pack (2 Cloths) TOPICAL SCH (04:00)
== END 2018-09-30 19:34 | disposition expired ==
LOC: NEPE 08:39 → NEDA 11:20 → HIMC 13:50
PROVIDERS: ADMIT Internal Medicine Critical Care Medicine; ATTEND Internal Medicine Critical Care Medicine